=== PATIENT | male | born 1945 | race Caucasian/White ===

== ENCOUNTER → 2017-09-05 08:35 | Outpatient (CLI) | payer BC, SELFPAY ==
--- NOTE | 2017-09-05 08:44 | ECHOD_ITS ---
Reason For Study: S/P AVR Procedure This was a 2D Doppler, Color Flow transthoracic echocardiogram. Exam performed in department. Left Ventricle Mild assymetric septal hypertrophy. The estimated ejection fraction is 65 %. Normal diastology for age. No regional wall motion abnormalities noted. Right Ventricle Normal size and thickness. Normal systolic function. Atria Normal left atrium. Normal right atrium. Hypermobile atrial septum. Bubble contrast study negative for right to left interatrial shunt. Mitral Valve The mitral valve is structurally normal. No prolapse or stenosis seen. Tricuspid Valve Normal tricuspid valve. Mild (1+) tricuspid valve insufficiency. Right ventricular systolic pressure estimated to be 36 mmHg. Aortic Valve Mild (1+) eccentric aortic valve insufficiency. Bioprosthetic aortic valve. Stable appearing bioprosthetic aortic valve apparatus. Pulmonic Valve Normal pulmonic valve. Great Vessels Moderately dilated aortic root. Normal inferior vena cava. Inferior vena cava collapse with sniff. Pericardium/Pleural No pericardial effusion. Medication 22 gauge I.V. with prn adaptor inserted into right arm. Performed a rapid injection of agitated mix of 9 cc saline and 1cc air to assess for atrial septal defect. MMode/2D Measurements & Calculations LVIDd: 4.3 cm IVSd: 1.4 cm LVOT diam: 2.0 cm LVIDs: 2.9 cm LVPWd: 1.1 cm LVOT area: 3.1 cm2 RVDd: 3.6 cm FS: 32.7 % Ao root diam: 4.4 cm LAV(MOD-bp): 46.7 ml EDV(MOD-sp4): 138.9 ml LAV(MOD-bp) Indexed: 21.9 ml/m2 ESV(MOD-sp4): 50.9 ml LAV(MOD-sp2): 58.6 ml EF(MOD-sp4): 63.4 % LAV(MOD-sp4): 35.4 ml SV(MOD-sp4): 88.0 ml LA A4 area: 14.7 cm2 RA A4 area: 15.2 cm2 Time Measurements MV dec time: 0.27 sec Doppler Measurements & Calculations MV E max alex: 62.1 cm/sec Lat Peak E' Alex: 8.9 cm/sec Med Peak E' Alex: 6.7 cm/sec MV A max alex: 56.4 cm/sec E/E' lat: 7.0 E/E' med: 9.3 MV E/A: 1.1 Ao V2 max: 286.7 cm/sec AI max alex: 537.7 cm/sec LV V1 max: 88.3 cm/sec Ao max P.9 mmHg AI max P.7 mmHg LV V1 max P.1 mmHg Ao V2 mean: 186.9 cm/sec AI dec slope: 298.5 cm/sec2 LV V1 mean P.9 mmHg Ao mean P.2 mmHg AI P1/2t: 527.7 msec LV V1 mean: 65.9 cm/sec Ao V2 VTI: 62.1 cm LV V1 VTI: 22.8 cm SNEHA(I,D): 1.1 cm2 SNEHA(V,D): 0.95 cm2 SV(LVOT): 70.3 ml PA V2 max: 120.6 cm/sec TR max alex: 260.2 cm/sec TR max P.3 mmHg Interpretation Summary The estimated ejection fraction is 65 %. Normal diastology for age. Hypermobile atrial septum. Mild (1+) tricuspid valve insufficiency. Right ventricular systolic pressure estimated to be 36 mmHg. Bioprosthetic aortic valve. Mild (1+) eccentric aortic valve insufficiency. Moderately dilated aortic root just above bioprosthetic AVR, with no evidence of false lumen or dissection. There is no comparison study available. Ordering Physician: JAY LEBLANC Referring Physician: OSKAR MOURA Performed By: Becky Agee RDCS
== END ==
PROVIDERS: Family Provider Preventive Medicine Occupational Medicine; PCP Preventive Medicine Occupational Medicine
DX: Z95.2 Presence of prosthetic heart valve (principal)
CPT/HCPCS: 93306; A4216

== ENCOUNTER → 2019-04-23 14:08 | Outpatient (CLI) | payer MEDICARE, SELFPAY ==
[2016-07-28 10:44] VITALS: BMI 27.4
[2019-04-23 15:51] LABS: Hematocrit 37.1 % (40-54); Hemoglobin 12.6 g/dL (13.0-16.5); Mean Corpuscular Hgb 31.5 pg (27.0-32.0); Mean Corpuscular Volume 92.8 fL (80-94); Mean Platelet Vol. 9.6 fl (6.2-12.0); Platelet Count 162 K/mm3 (150-450); RBC Distribution Width CV 12.6 % (11.6-14.6); RBC Distribution Width SD 43.1 fl (35.1-43.9); White Blood Count 6.4 K/mm3 (4.4-11.0)
[2019-04-23 16:16] LABS: Homocysteine 16.9 umol/L (3.2-10.7)
[2019-04-23 16:17] LABS: Hemoglobin A1c 5.3 % (4.2-6.3)
[2019-04-23 16:26] LABS: Progesterone Level 0.19 ng/mL (See Comment); Vitamin B12 357 pg/mL (211-911)
[2019-04-23 16:55] LABS: ALB/GLOB Ratio 1.2 RATIO (0.9-2.4); AST(SGOT) 21 U/L (15-37); Alanine Aminotransfer ALT/SGPT 24 U/L (16-61); Alkaline Phosphatase 104 U/L (45-117); Anion Gap 4 (5-15); BUN 32 mg/dL (7-18); BUN/Creat Ratio 28.1 RATIO (10-20); CRP, High Sensitivity Cardiac 0.75 mg/L; Calcium,Total 9.5 mg/dL (8.5-10.1); Chloride 105 mmol/L (98-107); Cholesterol 171 mg/dL (200); Creatinine, Serum 1.14 mg/dL (0.70-1.30); EST Glomerular Filtration Rate 67 mL/min (>60); Est Glom Filt Rate - Afr Amer 81 mL/min (>60); Estradiol 17.3 pg/mL; Follicle Stimulating Hormone 7.4 mIU/mL; Free T3 2.1 pg/mL (2.18-3.98); Globulin 3.2 g/dL (2.2-4.2); Glucose 91 mg/dL (74-106); High Density Lipoprotein 66 mg/dL; Iron 79 ug/dL (65-175); Luteinizing Hormone 3.5 mIU/mL; PSA,Total - Annual Screen 4.73 ng/mL (0.00-4.00); Potassium 3.8 mmol/L (3.5-5.1); Prolactin 5.2 ng/mL; Protein, Total 7.2 g/dL (6.4-8.2); Sodium Level 142 mmol/L (136-145); T4 Free Direct 1.05 ng/dL (0.76-1.46); T4 Total, Thyroxin 8.1 ug/dL (4.5-12.1); Thyroid Stim Hormone (TSH) 2.17 uIU/mL (0.358-3.74); Triglycerides 59 mg/dL; Very Low Density Lipoprotein 12 mg/dL (5-40)
[2019-04-27 12:07] LABS: DHEA Sulfate 96.3 ug/dL (30.9-295.6); Insulin Like Growth Factor 157 ng/mL (41-179); Testosterone, % Free 1.79 % (1.50-4.20); Testosterone, Free 4.01 ng/dL (5.00-21.00)
[2019-04-28 14:36] LABS: Sex Hormone-binding Globulin 87.1 nmol/L (19.3-76.4); Testosterone, Total 224 ng/dL (264-916)
== END ==
PROVIDERS: Family Provider Preventive Medicine Occupational Medicine; PCP Preventive Medicine Occupational Medicine; Referring Provider Preventive Medicine Occupational Medicine; Visit Provider Preventive Medicine Occupational Medicine
DX: R63.4 Abnormal weight loss (principal); I48.91 Unspecified atrial fibrillation; R53.82 Chronic fatigue, unspecified; M62.81 Muscle weakness (generalized); R68.82 Decreased libido
CPT/HCPCS: 36415; 80053; 80061; 82306; 82533; 82607; 82627; 82670; 82746; 83001; 83002; 83036; 83090; 83540; 83735; 84144; 84146; 84153; 84270; 84305; 84402; 84403; 84436; 84439; 84443; 84481; 85027; 86141; 82626; G0103

== ENCOUNTER → 2019-10-24 05:00 | Outpatient (REF) | payer MEDICARE, SELFPAY ==
[2019-10-24 10:21] LABS: Hematocrit 38.2 % (40-54); Hemoglobin 12.5 g/dL (13.0-16.5); Mean Corp Hgb Conc 32.7 g/dL (32-36); Mean Corpuscular Hgb 31.2 pg (27.0-32.0); Mean Corpuscular Volume 95.3 fL (80-94); Mean Platelet Vol. 9.7 fl (6.2-12.0); Platelet Count 194 K/mm3 (150-450); RBC Distribution Width CV 13.8 % (11.6-14.6); RBC Distribution Width SD 48.5 fl (35.1-43.9); Red Blood Count 4.01 M/mm3 (4.6-6.2); White Blood Count 5.6 K/mm3 (4.4-11.0)
[2019-10-24 10:31] LABS: Anion Gap 7 (5-15); BUN 38 mg/dL (7-18); BUN/Creat Ratio 33.9 RATIO (10-20); Calcium,Total 9.2 mg/dL (8.5-10.1); Chloride 103 mmol/L (98-107); Creatinine, Serum 1.12 mg/dL (0.70-1.30); EST Glomerular Filtration Rate 68 mL/min (>60); Est Glom Filt Rate - Afr Amer 82 mL/min (>60); Glucose 92 mg/dL (74-106); Potassium 4.1 mmol/L (3.5-5.1); Sodium Level 141 mmol/L (136-145)
== END ==
LOC: OLS.WHLEAS 05:00
PROVIDERS: Visit Provider Family Medicine
DX: G20 Parkinson's disease (principal); E34.9 Endocrine disorder, unspecified; I48.20 Chronic atrial fibrillation, unspecified; N17.9 Acute kidney failure, unspecified; R53.81 Other malaise; M62.81 Muscle weakness (generalized)
CPT/HCPCS: 36415; 80048; 85027

== ENCOUNTER → 2019-11-21 05:00 | Outpatient (REF) | payer MEDICARE, SELFPAY ==
[2019-11-21 08:55] LABS: Hematocrit 34.4 % (40-54); Hemoglobin 11.3 g/dL (13.0-16.5); Mean Corp Hgb Conc 32.8 g/dL (32-36); Mean Corpuscular Hgb 31.5 pg (27.0-32.0); Mean Corpuscular Volume 95.8 fL (80-94); Mean Platelet Vol. 9.9 fl (6.2-12.0); Platelet Count 157 K/mm3 (150-450); RBC Distribution Width CV 13.4 % (11.6-14.6); RBC Distribution Width SD 47.4 fl (35.1-43.9); Red Blood Count 3.59 M/mm3 (4.6-6.2); White Blood Count 4.3 K/mm3 (4.4-11.0)
[2019-11-21 09:05] LABS: Anion Gap 4 (5-15); BUN 35 mg/dL (7-18); BUN/Creat Ratio 35.3 RATIO (10-20); Calcium,Total 8.5 mg/dL (8.5-10.1); Chloride 106 mmol/L (98-107); Creatinine, Serum 0.99 mg/dL (0.70-1.30); EST Glomerular Filtration Rate 78 mL/min (>60); Est Glom Filt Rate - Afr Amer 95 mL/min (>60); Glucose 80 mg/dL (74-106); Potassium 4.6 mmol/L (3.5-5.1); Sodium Level 141 mmol/L (136-145)
== END ==
LOC: OLS.WHLEAS 05:00
PROVIDERS: Referring Provider Family Medicine; Visit Provider Family Medicine
DX: E34.9 Endocrine disorder, unspecified (principal); G20 Parkinson's disease; I48.20 Chronic atrial fibrillation, unspecified; N17.9 Acute kidney failure, unspecified; R53.81 Other malaise; M62.81 Muscle weakness (generalized)
CPT/HCPCS: 36415; 80048; 85027

== ENCOUNTER → 2019-12-26 05:00 | Outpatient (REF) | payer MEDICARE, MEDICAID, SELFPAY ==
[2019-12-26 09:05] LABS: Hematocrit 36.9 % (40-54); Hemoglobin 12.6 g/dL (13.0-16.5); Mean Corp Hgb Conc 34.1 g/dL (32-36); Mean Corpuscular Hgb 32.3 pg (27.0-32.0); Mean Corpuscular Volume 94.6 fL (80-94); Mean Platelet Vol. 9.6 fl (6.2-12.0); Platelet Count 164 K/mm3 (150-450); RBC Distribution Width CV 12.5 % (11.6-14.6); RBC Distribution Width SD 43.2 fl (35.1-43.9); White Blood Count 4.4 K/mm3 (4.4-11.0)
[2019-12-26 09:12] LABS: Anion Gap 2 (5-15); BUN 29 mg/dL (7-18); BUN/Creat Ratio 31.3 RATIO (10-20); Calcium,Total 9.1 mg/dL (8.5-10.1); Chloride 107 mmol/L (98-107); Creatinine, Serum 0.93 mg/dL (0.70-1.30); EST Glomerular Filtration Rate 85 mL/min (>60); Est Glom Filt Rate - Afr Amer 103 mL/min (>60); Glucose 78 mg/dL (74-106); Potassium 4.3 mmol/L (3.5-5.1); Sodium Level 140 mmol/L (136-145)
== END ==
LOC: OLS.WHLEAS 05:00
PROVIDERS: Visit Provider Family Medicine
DX: I12.9 Hypertensive chronic kidney disease with stage 1 through stage 4 chronic kidney disease, or unspecified chronic kidney disease (principal); N17.9 Acute kidney failure, unspecified; G21.9 Secondary parkinsonism, unspecified; R53.81 Other malaise; I48.20 Chronic atrial fibrillation, unspecified; I39 Endocarditis and heart valve disorders in diseases classified elsewhere
CPT/HCPCS: 36415; 80048; 85027

== ENCOUNTER → 2020-01-23 05:00 | Outpatient (REF) | payer MEDICARE, MEDICAID, SELFPAY ==
[2020-01-23 10:14] LABS: Anion Gap 4 (5-15); BUN 29 mg/dL (7-18); BUN/Creat Ratio 27.9 RATIO (10-20); Calcium,Total 8.8 mg/dL (8.5-10.1); Chloride 106 mmol/L (98-107); Creatinine, Serum 1.04 mg/dL (0.70-1.30); EST Glomerular Filtration Rate 74 mL/min (>60); Est Glom Filt Rate - Afr Amer 90 mL/min (>60); Glucose 80 mg/dL (74-106); Potassium 4.3 mmol/L (3.5-5.1); Sodium Level 144 mmol/L (136-145)
[2020-01-23 10:16] LABS: Hematocrit 36.7 % (40-54); Mean Corp Hgb Conc 32.7 g/dL (32-36); Mean Corpuscular Hgb 31.3 pg (27.0-32.0); Mean Corpuscular Volume 95.6 fL (80-94); Mean Platelet Vol. 9.5 fl (6.2-12.0); Platelet Count 169 K/mm3 (150-450); RBC Distribution Width CV 12.2 % (11.6-14.6); RBC Distribution Width SD 42.5 fl (35.1-43.9); Red Blood Count 3.84 M/mm3 (4.6-6.2)
== END ==
LOC: OLS.WHLEAS 05:00
PROVIDERS: Visit Provider Family Medicine
DX: G21.9 Secondary parkinsonism, unspecified (principal); R53.81 Other malaise; I12.9 Hypertensive chronic kidney disease with stage 1 through stage 4 chronic kidney disease, or unspecified chronic kidney disease; N17.9 Acute kidney failure, unspecified; I48.20 Chronic atrial fibrillation, unspecified; I39 Endocarditis and heart valve disorders in diseases classified elsewhere; E34.9 Endocrine disorder, unspecified
CPT/HCPCS: 36415; 80048; 85027

== ENCOUNTER → 2020-02-20 05:00 | Outpatient (REF) | payer MEDICARE, MEDICAID, SELFPAY ==
[2020-02-20 07:11] LABS: Hematocrit 38.5 % (40-54); Hemoglobin 12.9 g/dL (13.0-16.5); Mean Corp Hgb Conc 33.5 g/dL (32-36); Mean Corpuscular Hgb 31.7 pg (27.0-32.0); Mean Corpuscular Volume 94.6 fL (80-94); Mean Platelet Vol. 9.6 fl (6.2-12.0); Platelet Count 167 K/mm3 (150-450); RBC Distribution Width CV 12.3 % (11.6-14.6); RBC Distribution Width SD 42.4 fl (35.1-43.9); Red Blood Count 4.07 M/mm3 (4.6-6.2); White Blood Count 4.3 K/mm3 (4.4-11.0)
[2020-02-20 07:27] LABS: Anion Gap 3 (5-15); BUN 30 mg/dL (7-18); BUN/Creat Ratio 27.8 RATIO (10-20); Chloride 108 mmol/L (98-107); Creatinine, Serum 1.08 mg/dL (0.70-1.30); EST Glomerular Filtration Rate 71 mL/min (>60); Est Glom Filt Rate - Afr Amer 86 mL/min (>60); Glucose 82 mg/dL (74-106); Potassium 4.2 mmol/L (3.5-5.1); Sodium Level 141 mmol/L (136-145)
== END ==
LOC: OLS.WHLEAS 05:00
PROVIDERS: Visit Provider Family Medicine
DX: E34.9 Endocrine disorder, unspecified (principal)
CPT/HCPCS: 36415; 80048; 85027

== ENCOUNTER → 2020-03-24 16:00 | Outpatient (REF) | payer MEDICARE, MEDICAID, SELFPAY ==
[2020-03-25 08:43] LABS: Color, Urine Yellow (Yellow); Glucose, Dipstick Normal (Normal); Ketone-Dipstick 5 mg/dl (Negative); Leukocyte Esterase-Dipstick 25 /ul (Negative); Nitrite-Dipstick Positive (Negative); Occult Blood-Urine Negative /ul (Negative); Protein-Dipstick 30 mg/dl (Negative); Urine Bilirubin Dipstick Negative (Negative); Urine Clarity Cloudy (Clear); Urine Urobilinogen Normal (Normal)
== END ==
LOC: OLS.WHLEAS 16:00
PROVIDERS: Referring Provider Family Medicine; Visit Provider Family Medicine
DX: G20 Parkinson's disease (principal); R53.81 Other malaise; I48.20 Chronic atrial fibrillation, unspecified; N19 Unspecified kidney failure; M62.81 Muscle weakness (generalized)
CPT/HCPCS: 81002; 87077; 87086; 87088; 87186

== ENCOUNTER → 2020-03-26 05:00 | Outpatient (REF) | payer MEDICARE, MEDICAID, SELFPAY ==
[2020-03-26 08:27] LABS: Hematocrit 38.1 % (40-54); Hemoglobin 12.5 g/dL (13.0-16.5); Mean Corp Hgb Conc 32.8 g/dL (32-36); Mean Corpuscular Volume 94.5 fL (80-94); Mean Platelet Vol. 9.5 fl (6.2-12.0); Platelet Count 163 K/mm3 (150-450); RBC Distribution Width CV 12.5 % (11.6-14.6); RBC Distribution Width SD 43.3 fl (35.1-43.9); Red Blood Count 4.03 M/mm3 (4.6-6.2)
[2020-03-26 08:33] LABS: Anion Gap 2 (5-15); BUN 27 mg/dL (7-18); BUN/Creat Ratio 26.7 RATIO (10-20); Chloride 109 mmol/L (98-107); Creatinine, Serum 1.01 mg/dL (0.70-1.30); EST Glomerular Filtration Rate 77 mL/min (>60); Est Glom Filt Rate - Afr Amer 93 mL/min (>60); Glucose 83 mg/dL (74-106); Potassium 4.5 mmol/L (3.5-5.1); Sodium Level 144 mmol/L (136-145)
== END ==
LOC: OLS.WHLEAS 05:00
PROVIDERS: Referring Provider Family Medicine; Visit Provider Family Medicine
DX: E34.9 Endocrine disorder, unspecified (principal); G21.9 Secondary parkinsonism, unspecified; I12.9 Hypertensive chronic kidney disease with stage 1 through stage 4 chronic kidney disease, or unspecified chronic kidney disease; N17.9 Acute kidney failure, unspecified; I48.20 Chronic atrial fibrillation, unspecified; R53.81 Other malaise; I39 Endocarditis and heart valve disorders in diseases classified elsewhere
CPT/HCPCS: 36415; 80048; 85027

== ENCOUNTER → 2020-05-21 05:00 | Outpatient (REF) | payer MEDICARE, MEDICAID, SELFPAY ==
[2020-05-21 08:22] LABS: Hematocrit 40.1 % (40-54); Hemoglobin 13.3 g/dL (13.0-16.5); Mean Corp Hgb Conc 33.2 g/dL (32-36); Mean Corpuscular Hgb 31.6 pg (27.0-32.0); Mean Corpuscular Volume 95.2 fL (80-94); Mean Platelet Vol. 9.6 fl (6.2-12.0); Platelet Count 184 K/mm3 (150-450); RBC Distribution Width CV 13.1 % (11.6-14.6); RBC Distribution Width SD 45.4 fl (35.1-43.9); Red Blood Count 4.21 M/mm3 (4.6-6.2); White Blood Count 4.6 K/mm3 (4.4-11.0)
[2020-05-21 08:24] LABS: Anion Gap 3 (5-15); BUN 28 mg/dL (7-18); BUN/Creat Ratio 25.9 RATIO (10-20); Calcium,Total 9.1 mg/dL (8.5-10.1); Chloride 105 mmol/L (98-107); Creatinine, Serum 1.08 mg/dL (0.70-1.30); EST Glomerular Filtration Rate 71 mL/min (>60); Est Glom Filt Rate - Afr Amer 86 mL/min (>60); Glucose 85 mg/dL (74-106); Potassium 4.2 mmol/L (3.5-5.1); Sodium Level 140 mmol/L (136-145)
== END ==
LOC: OLS.WHLEAS 05:00
PROVIDERS: Visit Provider Family Medicine
DX: E34.9 Endocrine disorder, unspecified (principal); G21.9 Secondary parkinsonism, unspecified; N17.9 Acute kidney failure, unspecified; R53.81 Other malaise; I48.20 Chronic atrial fibrillation, unspecified; I10 Essential (primary) hypertension; I39 Endocarditis and heart valve disorders in diseases classified elsewhere
CPT/HCPCS: 36415; 80048; 85027

== ENCOUNTER → 2020-06-25 05:00 | Outpatient (REF) | payer MEDICARE, MEDICAID, SELFPAY ==
[2020-06-25 10:09] LABS: Hematocrit 37.4 % (40-54); Hemoglobin 12.5 g/dL (13.0-16.5); Mean Corp Hgb Conc 33.4 g/dL (32-36); Mean Corpuscular Hgb 31.6 pg (27.0-32.0); Mean Corpuscular Volume 94.4 fL (80-94); Mean Platelet Vol. 9.5 fl (6.2-12.0); Platelet Count 175 K/mm3 (150-450); RBC Distribution Width CV 12.3 % (11.6-14.6); RBC Distribution Width SD 42.5 fl (35.1-43.9); Red Blood Count 3.96 M/mm3 (4.6-6.2); White Blood Count 4.5 K/mm3 (4.4-11.0)
[2020-06-25 10:25] LABS: Anion Gap 1 (5-15); BUN 33 mg/dL (7-18); BUN/Creat Ratio 30.8 RATIO (10-20); Calcium,Total 8.9 mg/dL (8.5-10.1); Chloride 106 mmol/L (98-107); Creatinine, Serum 1.07 mg/dL (0.70-1.30); EST Glomerular Filtration Rate 72 mL/min (>60); Est Glom Filt Rate - Afr Amer 87 mL/min (>60); Glucose 88 mg/dL (74-106); Potassium 4.2 mmol/L (3.5-5.1); Sodium Level 140 mmol/L (136-145)
== END ==
LOC: OLS.WHLEAS 05:00
PROVIDERS: Visit Provider Family Medicine
DX: E34.9 Endocrine disorder, unspecified (principal); G21.9 Secondary parkinsonism, unspecified; N17.9 Acute kidney failure, unspecified; R53.81 Other malaise; I48.20 Chronic atrial fibrillation, unspecified; I10 Essential (primary) hypertension; I39 Endocarditis and heart valve disorders in diseases classified elsewhere
CPT/HCPCS: 36415; 80048; 85027

== ENCOUNTER → 2020-07-23 05:50 | Outpatient (REF) | payer MEDICARE, MEDICAID, SELFPAY ==
[2020-07-23 09:31] LABS: Hematocrit 37.6 % (40-54); Hemoglobin 12.7 g/dL (13.0-16.5); Mean Corp Hgb Conc 33.8 g/dL (32-36); Mean Corpuscular Hgb 31.8 pg (27.0-32.0); Mean Platelet Vol. 9.7 fl (6.2-12.0); Platelet Count 166 K/mm3 (150-450); RBC Distribution Width CV 12.5 % (11.6-14.6); RBC Distribution Width SD 43.4 fl (35.1-43.9); White Blood Count 4.4 K/mm3 (4.4-11.0)
[2020-07-23 09:45] LABS: Anion Gap 3 (5-15); BUN 30 mg/dL (7-18); BUN/Creat Ratio 29.1 RATIO (10-20); Calcium,Total 8.8 mg/dL (8.5-10.1); Chloride 108 mmol/L (98-107); Creatinine, Serum 1.03 mg/dL (0.70-1.30); EST Glomerular Filtration Rate 75 mL/min (>60); Est Glom Filt Rate - Afr Amer 91 mL/min (>60); Glucose 76 mg/dL (74-106); Potassium 4.3 mmol/L (3.5-5.1); Sodium Level 143 mmol/L (136-145)
== END ==
LOC: OLS.WHLEAS 05:50
PROVIDERS: Visit Provider Family Medicine
DX: E34.9 Endocrine disorder, unspecified (principal); G21.9 Secondary parkinsonism, unspecified; N17.9 Acute kidney failure, unspecified; R53.81 Other malaise; I48.20 Chronic atrial fibrillation, unspecified; I10 Essential (primary) hypertension; I39 Endocarditis and heart valve disorders in diseases classified elsewhere
CPT/HCPCS: 36415; 80048; 85027

== ENCOUNTER → 2020-08-20 05:00 | Outpatient (REF) | payer MEDICARE, MEDICAID, SELFPAY ==
[2020-08-20 07:42] LABS: Hematocrit 38.4 % (40-54); Hemoglobin 12.6 g/dL (13.0-16.5); Mean Corp Hgb Conc 32.8 g/dL (32-36); Mean Corpuscular Hgb 31.3 pg (27.0-32.0); Mean Corpuscular Volume 95.3 fL (80-94); Mean Platelet Vol. 9.6 fl (6.2-12.0); Platelet Count 160 K/mm3 (150-450); RBC Distribution Width CV 12.5 % (11.6-14.6); RBC Distribution Width SD 43.4 fl (35.1-43.9); Red Blood Count 4.03 M/mm3 (4.6-6.2); White Blood Count 4.1 K/mm3 (4.4-11.0)
[2020-08-20 07:48] LABS: Anion Gap 2 (5-15); BUN 30 mg/dL (7-18); Calcium,Total 8.8 mg/dL (8.5-10.1); Chloride 109 mmol/L (98-107); Creatinine, Serum 0.94 mg/dL (0.70-1.30); EST Glomerular Filtration Rate 83 mL/min (>60); Est Glom Filt Rate - Afr Amer 101 mL/min (>60); Glucose 84 mg/dL (74-106); Potassium 4.1 mmol/L (3.5-5.1); Sodium Level 141 mmol/L (136-145)
== END ==
LOC: OLS.WHLEAS 05:00
PROVIDERS: Visit Provider Family Medicine
DX: E34.9 Endocrine disorder, unspecified (principal); G21.9 Secondary parkinsonism, unspecified; N17.9 Acute kidney failure, unspecified; R53.81 Other malaise; I48.20 Chronic atrial fibrillation, unspecified; I10 Essential (primary) hypertension; I39 Endocarditis and heart valve disorders in diseases classified elsewhere
CPT/HCPCS: 36415; 80048; 85027

== ENCOUNTER → 2020-09-24 05:00 | Outpatient (REF) | payer MEDICARE, MEDICAID, SELFPAY ==
[2020-09-24 06:57] LABS: Hematocrit 39.1 % (40-54); Hemoglobin 12.9 g/dL (13.0-16.5); Mean Platelet Vol. 9.4 fl (6.2-12.0); Platelet Count 169 K/mm3 (150-450); RBC Distribution Width CV 12.6 % (11.6-14.6); RBC Distribution Width SD 43.8 fl (35.1-43.9); Red Blood Count 4.16 M/mm3 (4.6-6.2); White Blood Count 4.7 K/mm3 (4.4-11.0)
[2020-09-24 07:13] LABS: Anion Gap 4 (5-15); BUN 30 mg/dL (7-18); BUN/Creat Ratio 28.3 RATIO (10-20); Calcium,Total 8.9 mg/dL (8.5-10.1); Chloride 107 mmol/L (98-107); Creatinine, Serum 1.06 mg/dL (0.70-1.30); EST Glomerular Filtration Rate 72 mL/min (>60); Est Glom Filt Rate - Afr Amer 88 mL/min (>60); Glucose 85 mg/dL (74-106); Sodium Level 141 mmol/L (136-145)
== END ==
LOC: OLS.WHLEAS 05:00
PROVIDERS: Visit Provider Family Medicine
DX: E34.9 Endocrine disorder, unspecified (principal); G21.9 Secondary parkinsonism, unspecified; N17.9 Acute kidney failure, unspecified; R53.81 Other malaise; I48.20 Chronic atrial fibrillation, unspecified; I10 Essential (primary) hypertension; I39 Endocarditis and heart valve disorders in diseases classified elsewhere
CPT/HCPCS: 36415; 80048; 85027

== ENCOUNTER → 2020-10-22 05:00 | Outpatient (REF) | payer MEDICARE, MEDICAID, SELFPAY ==
[2020-10-22 07:52] LABS: Hematocrit 39.7 % (40-54); Hemoglobin 13.5 g/dL (13.0-16.5); Mean Corpuscular Hgb 31.9 pg (27.0-32.0); Mean Corpuscular Volume 93.9 fL (80-94); Mean Platelet Vol. 9.5 fl (6.2-12.0); Platelet Count 177 K/mm3 (150-450); RBC Distribution Width CV 12.6 % (11.6-14.6); RBC Distribution Width SD 43.2 fl (35.1-43.9); Red Blood Count 4.23 M/mm3 (4.6-6.2); White Blood Count 4.1 K/mm3 (4.4-11.0)
[2020-10-22 08:07] LABS: Anion Gap 5 (5-15); BUN 23 mg/dL (7-18); BUN/Creat Ratio 22.8 RATIO (10-20); Calcium,Total 8.9 mg/dL (8.5-10.1); Chloride 106 mmol/L (98-107); Creatinine, Serum 1.01 mg/dL (0.70-1.30); EST Glomerular Filtration Rate 77 mL/min (>60); Est Glom Filt Rate - Afr Amer 93 mL/min (>60); Glucose 80 mg/dL (74-106); Potassium 4.4 mmol/L (3.5-5.1); Sodium Level 143 mmol/L (136-145)
== END ==
LOC: OLS.WHLEAS 05:00
PROVIDERS: Referring Provider Family Medicine; Visit Provider Family Medicine
DX: E34.9 Endocrine disorder, unspecified (principal); G21.9 Secondary parkinsonism, unspecified; N17.9 Acute kidney failure, unspecified; R53.81 Other malaise; I48.20 Chronic atrial fibrillation, unspecified; I10 Essential (primary) hypertension; I39 Endocarditis and heart valve disorders in diseases classified elsewhere
CPT/HCPCS: 36415; 80048; 85027

== ENCOUNTER → 2020-10-26 05:00 | Outpatient (REF) | payer MEDICARE, MEDICAID, SELFPAY ==
[2020-10-26 08:41] LABS: Hematocrit 38.9 % (40-54); Hemoglobin 12.7 g/dL (13.0-16.5); Mean Corp Hgb Conc 32.6 g/dL (32-36); Mean Corpuscular Hgb 31.6 pg (27.0-32.0); Mean Corpuscular Volume 96.8 fL (80-94); Mean Platelet Vol. 9.7 fl (6.2-12.0); Platelet Count 165 K/mm3 (150-450); RBC Distribution Width CV 12.8 % (11.6-14.6); RBC Distribution Width SD 45.6 fl (35.1-43.9); Red Blood Count 4.02 M/mm3 (4.6-6.2); White Blood Count 4.1 K/mm3 (4.4-11.0)
[2020-10-26 09:02] LABS: ALB/GLOB Ratio 1.2 RATIO (0.9-2.4); AST(SGOT) 25 U/L (15-37); Alanine Aminotransfer ALT/SGPT 21 U/L (16-61); Albumin, Serum 3.5 g/dL (3.2-5.0); Alkaline Phosphatase 119 U/L (45-117); Anion Gap 4 (5-15); BUN 35 mg/dL (7-18); BUN/Creat Ratio 34.7 RATIO (10-20); Calcium,Total 8.8 mg/dL (8.5-10.1); Chloride 108 mmol/L (98-107); Creatinine, Serum 1.01 mg/dL (0.70-1.30); EST Glomerular Filtration Rate 77 mL/min (>60); Est Glom Filt Rate - Afr Amer 93 mL/min (>60); Glucose 87 mg/dL (74-106); Potassium 4.1 mmol/L (3.5-5.1); Protein, Total 6.5 g/dL (6.4-8.2); Sodium Level 144 mmol/L (136-145); Thyroid Stim Hormone (TSH) 1.13 uIU/mL (0.358-3.74)
== END ==
LOC: OLS.WHLEAS 05:00
PROVIDERS: Referring Provider Family Medicine; Visit Provider Family Medicine
DX: F32.3 Major depressive disorder, single episode, severe with psychotic features (principal); G20 Parkinson's disease; I48.20 Chronic atrial fibrillation, unspecified; N17.9 Acute kidney failure, unspecified; I12.9 Hypertensive chronic kidney disease with stage 1 through stage 4 chronic kidney disease, or unspecified chronic kidney disease
CPT/HCPCS: 36415; 80053; 84443; 85027

== ENCOUNTER → 2020-11-19 04:30 | Outpatient (REF) | payer MEDICARE, MEDICAID, SELFPAY ==
[2020-11-19 07:16] LABS: Hematocrit 39.3 % (40-54); Hemoglobin 13.1 g/dL (13.0-16.5); Mean Corp Hgb Conc 33.3 g/dL (32-36); Mean Corpuscular Hgb 31.6 pg (27.0-32.0); Mean Corpuscular Volume 94.7 fL (80-94); Mean Platelet Vol. 9.6 fl (6.2-12.0); Platelet Count 174 K/mm3 (150-450); RBC Distribution Width CV 12.4 % (11.6-14.6); RBC Distribution Width SD 43.1 fl (35.1-43.9); Red Blood Count 4.15 M/mm3 (4.6-6.2); White Blood Count 4.2 K/mm3 (4.4-11.0)
[2020-11-19 07:39] LABS: Anion Gap 3 (5-15); BUN 26 mg/dL (7-18); BUN/Creat Ratio 25.7 RATIO (10-20); Calcium,Total 8.9 mg/dL (8.5-10.1); Chloride 105 mmol/L (98-107); Creatinine, Serum 1.01 mg/dL (0.70-1.30); EST Glomerular Filtration Rate 76 mL/min (>60); Est Glom Filt Rate - Afr Amer 93 mL/min (>60); Glucose 71 mg/dL (74-106); Potassium 4.3 mmol/L (3.5-5.1); Sodium Level 141 mmol/L (136-145)
== END ==
LOC: OLS.WHLEAS 04:30
PROVIDERS: Visit Provider Family Medicine
DX: E34.9 Endocrine disorder, unspecified (principal); G21.9 Secondary parkinsonism, unspecified; N17.9 Acute kidney failure, unspecified; R53.81 Other malaise; I48.20 Chronic atrial fibrillation, unspecified; I10 Essential (primary) hypertension; I39 Endocarditis and heart valve disorders in diseases classified elsewhere
CPT/HCPCS: 36415; 80048; 85027

== ENCOUNTER → 2020-12-24 05:00 | Outpatient (REF) | payer MEDICARE, MEDICAID, SELFPAY ==
[2020-12-24 08:37] LABS: Hematocrit 37.7 % (40-54); Hemoglobin 12.7 g/dL (13.0-16.5); Mean Corp Hgb Conc 33.7 g/dL (32-36); Mean Platelet Vol. 9.3 fl (6.2-12.0); Platelet Count 174 K/mm3 (150-450); RBC Distribution Width CV 12.8 % (11.6-14.6); RBC Distribution Width SD 44.6 fl (35.1-43.9); Red Blood Count 3.97 M/mm3 (4.6-6.2); White Blood Count 4.2 K/mm3 (4.4-11.0)
[2020-12-24 08:48] LABS: Anion Gap 3 (5-15); BUN 19 mg/dL (7-18); BUN/Creat Ratio 18.6 RATIO (10-20); Calcium,Total 8.7 mg/dL (8.5-10.1); Chloride 105 mmol/L (98-107); Creatinine, Serum 1.02 mg/dL (0.70-1.30); EST Glomerular Filtration Rate 76 mL/min (>60); Est Glom Filt Rate - Afr Amer 91 mL/min (>60); Glucose 87 mg/dL (74-106); Potassium 4.3 mmol/L (3.5-5.1); Sodium Level 141 mmol/L (136-145)
== END ==
LOC: OLS.WHLEAS 05:00
PROVIDERS: Visit Provider Family Medicine
DX: E34.9 Endocrine disorder, unspecified (principal); G21.9 Secondary parkinsonism, unspecified; N17.9 Acute kidney failure, unspecified; R53.81 Other malaise; I48.20 Chronic atrial fibrillation, unspecified; I10 Essential (primary) hypertension; I39 Endocarditis and heart valve disorders in diseases classified elsewhere
CPT/HCPCS: 36415; 80048; 85027

== ENCOUNTER → 2021-01-21 05:00 | Outpatient (REF) | payer MEDICARE, MEDICAID, SELFPAY ==
[2021-01-21 07:31] LABS: Hematocrit 37.3 % (40-54); Hemoglobin 12.5 g/dL (13.0-16.5); Mean Corp Hgb Conc 33.5 g/dL (32-36); Mean Corpuscular Hgb 32.1 pg (27.0-32.0); Mean Corpuscular Volume 95.6 fL (80-94); Mean Platelet Vol. 9.3 fl (6.2-12.0); Platelet Count 192 K/mm3 (150-450); RBC Distribution Width CV 12.5 % (11.6-14.6); RBC Distribution Width SD 43.4 fl (35.1-43.9); White Blood Count 4.6 K/mm3 (4.4-11.0)
[2021-01-21 07:43] LABS: Anion Gap 2 (5-15); BUN 32 mg/dL (7-18); BUN/Creat Ratio 28.1 RATIO (10-20); Calcium,Total 8.9 mg/dL (8.5-10.1); Chloride 110 mmol/L (98-107); Creatinine, Serum 1.14 mg/dL (0.70-1.30); EST Glomerular Filtration Rate 66 mL/min (>60); Est Glom Filt Rate - Afr Amer 80 mL/min (>60); Glucose 89 mg/dL (74-106); Potassium 4.7 mmol/L (3.5-5.1); Sodium Level 141 mmol/L (136-145)
== END ==
LOC: OLS.WHLEAS 05:00
PROVIDERS: Visit Provider Family Medicine
DX: E34.9 Endocrine disorder, unspecified (principal); G21.9 Secondary parkinsonism, unspecified; N17.9 Acute kidney failure, unspecified; R53.81 Other malaise; I48.20 Chronic atrial fibrillation, unspecified; I10 Essential (primary) hypertension; I39 Endocarditis and heart valve disorders in diseases classified elsewhere
CPT/HCPCS: 36415; 80048; 85027

== ENCOUNTER → 2021-02-18 05:00 | Outpatient (REF) | payer MEDICARE, MEDICAID, SELFPAY ==
[2021-02-18 07:36] LABS: Hemoglobin 12.8 g/dL (13.0-16.5); Mean Corp Hgb Conc 33.7 g/dL (32-36); Mean Corpuscular Hgb 31.8 pg (27.0-32.0); Mean Corpuscular Volume 94.5 fL (80-94); Mean Platelet Vol. 9.4 fl (6.2-12.0); Platelet Count 160 K/mm3 (150-450); RBC Distribution Width CV 12.5 % (11.6-14.6); RBC Distribution Width SD 43.2 fl (35.1-43.9); Red Blood Count 4.02 M/mm3 (4.6-6.2); White Blood Count 4.4 K/mm3 (4.4-11.0)
[2021-02-18 07:52] LABS: Anion Gap 4 (5-15); BUN 24 mg/dL (7-18); BUN/Creat Ratio 20.7 RATIO (10-20); Chloride 106 mmol/L (98-107); Creatinine, Serum 1.16 mg/dL (0.70-1.30); EST Glomerular Filtration Rate 65 mL/min (>60); Est Glom Filt Rate - Afr Amer 79 mL/min (>60); Glucose 84 mg/dL (74-106); Potassium 4.6 mmol/L (3.5-5.1); Sodium Level 142 mmol/L (136-145)
== END ==
LOC: OLS.WHLEAS 05:00
PROVIDERS: Visit Provider Family Medicine
DX: E34.9 Endocrine disorder, unspecified (principal); G21.9 Secondary parkinsonism, unspecified; N17.9 Acute kidney failure, unspecified; R53.81 Other malaise; I48.20 Chronic atrial fibrillation, unspecified; I10 Essential (primary) hypertension; I39 Endocarditis and heart valve disorders in diseases classified elsewhere
CPT/HCPCS: 36415; 80048; 85027

== ENCOUNTER → 2021-03-25 05:00 | Outpatient (REF) | payer MEDICARE, MEDICAID, SELFPAY ==
[2021-03-25 07:50] LABS: Hemoglobin 13.2 g/dL (13.0-16.5); Mean Corp Hgb Conc 34.7 g/dL (32-36); Mean Corpuscular Hgb 32.8 pg (27.0-32.0); Mean Corpuscular Volume 94.5 fL (80-94); Mean Platelet Vol. 9.3 fl (6.2-12.0); Platelet Count 159 K/mm3 (150-450); RBC Distribution Width CV 12.8 % (11.6-14.6); RBC Distribution Width SD 44.2 fl (35.1-43.9); Red Blood Count 4.02 M/mm3 (4.6-6.2); White Blood Count 4.7 K/mm3 (4.4-11.0)
[2021-03-25 08:13] LABS: Anion Gap 5 (5-15); BUN 30 mg/dL (7-18); BUN/Creat Ratio 30.9 RATIO (10-20); Calcium,Total 8.8 mg/dL (8.5-10.1); Chloride 106 mmol/L (98-107); Creatinine, Serum 0.97 mg/dL (0.70-1.30); EST Glomerular Filtration Rate 80 mL/min (>60); Est Glom Filt Rate - Afr Amer 97 mL/min (>60); Glucose 85 mg/dL (74-106); Potassium 4.4 mmol/L (3.5-5.1); Sodium Level 140 mmol/L (136-145)
== END ==
LOC: OLS.WHLEAS 05:00
PROVIDERS: Visit Provider Family Medicine
DX: E34.9 Endocrine disorder, unspecified (principal); G20 Parkinson's disease; I48.20 Chronic atrial fibrillation, unspecified; N17.9 Acute kidney failure, unspecified; I12.9 Hypertensive chronic kidney disease with stage 1 through stage 4 chronic kidney disease, or unspecified chronic kidney disease; N18.9 Chronic kidney disease, unspecified
CPT/HCPCS: 36415; 80048; 85027

== ENCOUNTER → 2021-04-22 05:00 | Outpatient (REF) | payer MEDICARE, MEDICAID, SELFPAY ==
[2021-04-22 06:12] LABS: Hematocrit 37.8 % (40-54); Hemoglobin 13.1 g/dL (13.0-16.5); Mean Corp Hgb Conc 34.7 g/dL (32-36); Mean Corpuscular Hgb 32.5 pg (27.0-32.0); Mean Corpuscular Volume 93.8 fL (80-94); Mean Platelet Vol. 9.3 fl (6.2-12.0); Platelet Count 163 K/mm3 (150-450); RBC Distribution Width CV 12.7 % (11.6-14.6); RBC Distribution Width SD 43.7 fl (35.1-43.9); Red Blood Count 4.03 M/mm3 (4.6-6.2); White Blood Count 4.7 K/mm3 (4.4-11.0)
[2021-04-22 06:37] LABS: Anion Gap 7 (5-15); BUN 29 mg/dL (7-18); BUN/Creat Ratio 27.6 RATIO (10-20); Calcium,Total 8.7 mg/dL (8.5-10.1); Chloride 107 mmol/L (98-107); Creatinine, Serum 1.05 mg/dL (0.70-1.30); EST Glomerular Filtration Rate 73 mL/min (>60); Est Glom Filt Rate - Afr Amer 88 mL/min (>60); Glucose 88 mg/dL (74-106); Potassium 4.4 mmol/L (3.5-5.1); Sodium Level 143 mmol/L (136-145)
== END ==
LOC: OLS.WHLEAS 05:00
PROVIDERS: Visit Provider Family Medicine
DX: E34.9 Endocrine disorder, unspecified (principal); G20 Parkinson's disease; I48.20 Chronic atrial fibrillation, unspecified; N17.9 Acute kidney failure, unspecified; I12.9 Hypertensive chronic kidney disease with stage 1 through stage 4 chronic kidney disease, or unspecified chronic kidney disease; N18.9 Chronic kidney disease, unspecified
CPT/HCPCS: 36415; 80048; 85027

== ENCOUNTER → 2021-05-27 | Outpatient (REF) | payer MEDICARE, MEDICAID, SELFPAY ==
[2021-05-27 07:48] LABS: Anion Gap 4 (5-15); BUN 26 mg/dL (7-18); BUN/Creat Ratio 25.2 RATIO (10-20); Calcium,Total 8.9 mg/dL (8.5-10.1); Chloride 105 mmol/L (98-107); Creatinine, Serum 1.03 mg/dL (0.70-1.30); EST Glomerular Filtration Rate 75 mL/min (>60); Est Glom Filt Rate - Afr Amer 90 mL/min (>60); Glucose 93 mg/dL (74-106); Potassium 4.4 mmol/L (3.5-5.1); Sodium Level 140 mmol/L (136-145)
[2021-05-27 08:10] LABS: Mean Corp Hgb Conc 34.2 g/dL (32-36); Mean Corpuscular Hgb 32.2 pg (27.0-32.0); Mean Corpuscular Volume 94.1 fL (80-94); Mean Platelet Vol. 9.5 fl (6.2-12.0); Platelet Count 157 K/mm3 (150-450); RBC Distribution Width CV 12.5 % (11.6-14.6); RBC Distribution Width SD 43.4 fl (35.1-43.9); Red Blood Count 4.04 M/mm3 (4.6-6.2); White Blood Count 4.8 K/mm3 (4.4-11.0)
== END | disposition home or self-care (01) ==
LOC: OLS.WHLEAS 06:40
PROVIDERS: Visit Provider Family Medicine
DX: E34.9 Endocrine disorder, unspecified (principal); G20 Parkinson's disease; N17.9 Acute kidney failure, unspecified; I48.20 Chronic atrial fibrillation, unspecified; I12.9 Hypertensive chronic kidney disease with stage 1 through stage 4 chronic kidney disease, or unspecified chronic kidney disease
CPT/HCPCS: 36415; 80048; 85027

== ENCOUNTER → 2021-06-24 | Outpatient (REF) | payer MEDICARE, MEDICAID, SELFPAY ==
[2021-06-24 07:40] LABS: Hematocrit 38.3 % (40-54); Hemoglobin 13.3 g/dL (13.0-16.5); Mean Corp Hgb Conc 34.7 g/dL (32-36); Mean Corpuscular Hgb 32.4 pg (27.0-32.0); Mean Corpuscular Volume 93.4 fL (80-94); Mean Platelet Vol. 9.5 fl (6.2-12.0); Platelet Count 149 K/mm3 (150-450); RBC Distribution Width CV 12.5 % (11.6-14.6); RBC Distribution Width SD 43.4 fl (35.1-43.9); White Blood Count 4.1 K/mm3 (4.4-11.0)
[2021-06-24 07:51] LABS: Anion Gap 1 (5-15); BUN 30 mg/dL (7-18); BUN/Creat Ratio 32.4 RATIO (10-20); Calcium,Total 8.6 mg/dL (8.5-10.1); Chloride 106 mmol/L (98-107); Creatinine, Serum 0.93 mg/dL (0.70-1.30); EST Glomerular Filtration Rate 84 mL/min (>60); Est Glom Filt Rate - Afr Amer 102 mL/min (>60); Glucose 80 mg/dL (74-106); Potassium 4.2 mmol/L (3.5-5.1); Sodium Level 140 mmol/L (136-145)
== END | disposition home or self-care (01) ==
LOC: OLS.WHLEAS 05:00
PROVIDERS: Visit Provider Family Medicine
DX: G20 Parkinson's disease (principal); I48.20 Chronic atrial fibrillation, unspecified; N18.30 Chronic kidney disease, stage 3 unspecified; I12.9 Hypertensive chronic kidney disease with stage 1 through stage 4 chronic kidney disease, or unspecified chronic kidney disease; R25.8 Other abnormal involuntary movements
CPT/HCPCS: 36415; 80048; 85027

== ENCOUNTER → 2021-07-22 | Outpatient (REF) | payer MEDICARE, MEDICAID, SELFPAY ==
[2021-07-22 07:56] LABS: Hematocrit 37.3 % (40-54); Hemoglobin 13.1 g/dL (13.0-16.5); Mean Corp Hgb Conc 35.1 g/dL (32-36); Mean Corpuscular Hgb 32.6 pg (27.0-32.0); Mean Corpuscular Volume 92.8 fL (80-94); Mean Platelet Vol. 9.2 fl (6.2-12.0); Platelet Count 163 K/mm3 (150-450); RBC Distribution Width CV 12.5 % (11.6-14.6); RBC Distribution Width SD 42.7 fl (35.1-43.9); Red Blood Count 4.02 M/mm3 (4.6-6.2); White Blood Count 4.4 K/mm3 (4.4-11.0)
[2021-07-22 08:05] LABS: Anion Gap 1 (5-15); BUN 28 mg/dL (7-18); BUN/Creat Ratio 26.4 RATIO (10-20); Calcium,Total 8.9 mg/dL (8.5-10.1); Chloride 108 mmol/L (98-107); Creatinine, Serum 1.06 mg/dL (0.70-1.30); EST Glomerular Filtration Rate 72 mL/min (>60); Est Glom Filt Rate - Afr Amer 87 mL/min (>60); Glucose 85 mg/dL (74-106); Potassium 4.3 mmol/L (3.5-5.1); Sodium Level 141 mmol/L (136-145)
== END | disposition home or self-care (01) ==
LOC: OLS.WHLEAS 05:00
PROVIDERS: Visit Provider Family Medicine
DX: G20 Parkinson's disease (principal); I48.20 Chronic atrial fibrillation, unspecified; N18.30 Chronic kidney disease, stage 3 unspecified; I12.9 Hypertensive chronic kidney disease with stage 1 through stage 4 chronic kidney disease, or unspecified chronic kidney disease
CPT/HCPCS: 36415; 80048; 85027

== ENCOUNTER → 2021-08-19 | Outpatient (REF) | payer MEDICARE, MEDICAID, SELFPAY ==
[2021-08-19 07:02] LABS: Hematocrit 40.3 % (40-54); Hemoglobin 13.6 g/dL (13.0-16.5); Mean Corp Hgb Conc 33.7 g/dL (32-36); Mean Corpuscular Hgb 31.6 pg (27.0-32.0); Mean Corpuscular Volume 93.5 fL (80-94); Mean Platelet Vol. 9.4 fl (6.2-12.0); Platelet Count 162 K/mm3 (150-450); RBC Distribution Width CV 12.6 % (11.6-14.6); RBC Distribution Width SD 43.7 fl (35.1-43.9); Red Blood Count 4.31 M/mm3 (4.6-6.2); White Blood Count 4.3 K/mm3 (4.4-11.0)
[2021-08-19 07:14] LABS: Anion Gap 3 (5-15); BUN 34 mg/dL (7-18); BUN/Creat Ratio 34.1 RATIO (10-20); Calcium,Total 8.7 mg/dL (8.5-10.1); Chloride 105 mmol/L (98-107); EST Glomerular Filtration Rate 77 mL/min (>60); Est Glom Filt Rate - Afr Amer 94 mL/min (>60); Glucose 88 mg/dL (74-106); Potassium 4.2 mmol/L (3.5-5.1); Sodium Level 139 mmol/L (136-145)
== END | disposition home or self-care (01) ==
LOC: OLS.WHLEAS 05:00
PROVIDERS: Visit Provider Family Medicine
DX: G20 Parkinson's disease (principal); N17.9 Acute kidney failure, unspecified; I48.20 Chronic atrial fibrillation, unspecified; N18.30 Chronic kidney disease, stage 3 unspecified; I12.9 Hypertensive chronic kidney disease with stage 1 through stage 4 chronic kidney disease, or unspecified chronic kidney disease
CPT/HCPCS: 36415; 80048; 85027

== ENCOUNTER → 2021-09-23 | Outpatient (REF) | payer MEDICARE, MEDICAID, SELFPAY ==
[2021-09-23 08:46] LABS: Hematocrit 39.3 % (40-54); Hemoglobin 13.4 g/dL (13.0-16.5); Mean Corp Hgb Conc 34.1 g/dL (32-36); Mean Corpuscular Hgb 32.7 pg (27.0-32.0); Mean Corpuscular Volume 95.9 fL (80-94); Mean Platelet Vol. 9.5 fl (6.2-12.0); Platelet Count 167 K/mm3 (150-450); RBC Distribution Width CV 12.7 % (11.6-14.6); RBC Distribution Width SD 44.1 fl (35.1-43.9); White Blood Count 4.7 K/mm3 (4.4-11.0)
[2021-09-23 09:04] LABS: Anion Gap 5 (5-15); BUN 36 mg/dL (7-18); BUN/Creat Ratio 32.7 RATIO (10-20); Chloride 106 mmol/L (98-107); EST Glomerular Filtration Rate 69 mL/min (>60); Est Glom Filt Rate - Afr Amer 84 mL/min (>60); Glucose 96 mg/dL (74-106); Potassium 4.1 mmol/L (3.5-5.1); Sodium Level 139 mmol/L (136-145)
== END | disposition home or self-care (01) ==
LOC: OLS.WHLEAS 05:00
PROVIDERS: Visit Provider Family Medicine
DX: G20 Parkinson's disease (principal); N17.9 Acute kidney failure, unspecified; I48.20 Chronic atrial fibrillation, unspecified; N18.30 Chronic kidney disease, stage 3 unspecified; I12.9 Hypertensive chronic kidney disease with stage 1 through stage 4 chronic kidney disease, or unspecified chronic kidney disease
CPT/HCPCS: 36415; 80048; 85027

== ENCOUNTER 2021-10-02 20:19 | Emergency (ER) | payer MEDICARE, MEDICAID, SELFPAY ==
[2021-10-02 20:20] VITALS: BP 144/85; PULSE 85; RESP 16; TEMP 37.1; O2SAT 95; BMI 27.8
--- NOTE | 2021-10-02 20:51 | CT_ITS ---
EXAM: CT HEAD WITHOUT INTRAVENOUS CONTRAST CLINICAL INDICATION: mental status change TECHNIQUE: Multiple axial images were obtained of the head without intravenous contrast. This CT exam was performed using one or more of the following dose reduction techniques: automated exposure control, adjustment of the mA and/or kV according to patient size, and/or use of iterative reconstruction technique. This report was created using [employer] report generation technology. RADIATION DOSE: CTDIvol = 45 mGy, DLP = 897.35 mGy-cm. COMPARISON: None. FINDINGS: BRAIN AND EXTRA-AXIAL SPACES: Mild generalized atrophy. Mild low density bilaterally in the deep white matter. No intra- or extra-axial hemorrhage. No evidence of acute infarct. No intracranial mass or mass effect. There is preservation of the noguera/white matter interface. Posterior fossa structures are unremarkable. No hydrocephalus. Basal cisterns are patent. BONES/JOINTS: Unremarkable. No discrete lytic or blastic abnormalities. SINUSES: Unremarkable as visualized. Clear. MASTOID AIR CELLS: Unremarkable. Clear. ORBITS: Visualized globes, extraocular muscles, optic nerves and retrobulbar fat appear unremarkable. CT/Brain/Head without Contrast IMPRESSION: Mild generalized atrophy. Mild low density bilaterally in the deep white matter. This likely represents small vessel ischemic changes in the deep white matter. Electronically Signed: Akira Elaine MD at 21:45 EDT ,
--- NOTE | 2021-10-02 20:51 | EKG12_ITS ---
Test Reason : CONFUSION Blood Pressure : / mmHG Vent. Rate : 091 BPM Atrial Rate : 091 BPM P-R Int : 260 ms QRS Dur : 100 ms QT Int : 366 ms P-R-T Axes : 074 -20 132 degrees QTc Int : 450 ms Sinus rhythm with 1st degree A-V block Left ventricular hypertrophy with repolarization abnormality Abnormal ECG Confirmed by MARIA EUGENIA LEVIN, ADINA ([id number]), commercial production editor SEAN LAM ([id number]) on 10/04/2021 7:18:51 AM Referred By: VIRAL Confirmed By:ADINA DEL CID MD
[2021-10-02 21:16] LABS: Bacteria 0 SEEN /hpf (None Seen); Red Blood Cells-Urine 0 SEEN /hpf (0-5); Squamous Epithelial Cells - UA 0 SEEN /hpf (0-5)
[2021-10-02 21:17] LABS: Color, Urine Yellow (Yellow); Glucose, Dipstick Normal (Normal); Ketone-Dipstick 15 mg/dl (Negative); Leukocyte Esterase-Dipstick 25 /ul (Negative); Nitrite-Dipstick Negative (Negative); Occult Blood-Urine Negative /ul (Negative); Protein-Dipstick 15 mg/dl (Negative); Specific Gravity, Urine 1.015 (1.002-1.030); Urine Bilirubin Dipstick Negative (Negative); Urine Clarity Clear (Clear); Urine Urobilinogen 1 mg/dl (Normal)
[2021-10-02 21:17] LABS: Absolute Lymphocyte Count 0.52 X10^3/uL (0.83-4.51); Absolute Neutrophil Count 10.9 X10^3/uL (2.0-7.7); Basophil# 0.01 X10^3/uL; Basophil% 0.1 % (0-1); Eosinophil# 0.01 X10^3/uL; Eosinophils% 0.1 % (0-5); Hematocrit 38.9 % (40-54); Hemoglobin 13.7 g/dL (13.0-16.5); Lymphocyte # 0.52 X10^3/ul (0.83-4.51); Lymphocyte % 4.4 % (19-41); Mean Corp Hgb Conc 35.2 g/dL (32-36); Mean Corpuscular Hgb 32.6 pg (27.0-32.0); Mean Corpuscular Volume 92.6 fL (80-94); Monocyte# 0.39 X10^3/uL; Monocyte% 3.3 % (0-10); NRBC Flagged by Analyzer 0 % (0-5); Neutrophil # 10.87 X10^3/uL (2.7-7.7); Neutrophil % 91.6 % (47-70); POSITIVE DIFFERENTIAL YES; Platelet Count 154 K/mm3 (150-450); RBC Distribution Width CV 12.6 % (11.6-14.6); RBC Distribution Width SD 42.7 fl (35.1-43.9); White Blood Count 11.9 K/mm3 (4.4-11.0)
[2021-10-02 21:19] LABS: Differential Indicated SCAN CRITERIA MET
[2021-10-02 21:36] LABS: ALB/GLOB Ratio 1.2 RATIO (0.9-2.4); AST(SGOT) 34 U/L (15-37); Alanine Aminotransfer ALT/SGPT 14 U/L (16-61); Albumin, Serum 3.8 g/dL (3.2-5.0); Alkaline Phosphatase 156 U/L (45-117); Anion Gap 6 (5-15); BUN 25 mg/dL (7-18); BUN/Creat Ratio 23.1 RATIO (10-20); Calcium,Total 8.7 mg/dL (8.5-10.1); Chloride 104 mmol/L (98-107); Creatinine, Serum 1.08 mg/dL (0.70-1.30); EST Glomerular Filtration Rate 71 mL/min (>60); Est Glom Filt Rate - Afr Amer 85 mL/min (>60); Estimated Creatinine Clearance 60.08 ml/min; Globulin 3.2 g/dL (2.2-4.2); Glucose 135 mg/dL (74-106); Potassium 4.1 mmol/L (3.5-5.1); Sodium Level 136 mmol/L (136-145); Troponin-I HS 6 pg/mL (3.0-78.0)
[2021-10-02 21:43] LABS: Differential Comment SCANNED
[2021-10-02 21:50] LABS: Mucous, Urine RARE /hpf (<or=2+); White Blood Cells 0-5 SEEN /hpf (0-5)
--- NOTE | 2021-10-02 22:53 | EX.ED.DYSGE1 ---
HPI History of Present Illness Chief Complaint: Confusion Narrative Narrative: Chief complaint is confusion. Patient is oriented x1 or x2 at baseline, apparently he was somewhat more confused at the [facility] today. He was also slightly more energetic and agitated at times. When he arrives patient is relatively calm he tells me his name he tells me is in [place] and he tells me he is no pain. Otherwise it is quite difficult to get a history and review of systems due to his baseline Parkinson's and dementia. [facility] Medical History Anxiety Atrial fibrillation Back pain Benign prostate hyperplasia Dementia Depression Endocarditis Hallucination Hypertension Inguinal hernia Kidney disease Parkinson disease Home Medications Alena, Bladder Health 1 tab PO DAILY 07/24/16 [History Last Taken Unknown] Chlorofresh 2 tab PO DAILY 07/24/16 [History Last Taken Unknown] Cholecalciferol (Vitamin D3) [Vitamin D3] 5,000 unit PO DAILY 07/24/16 [History Last Taken Unknown] Efa, Essential Fatty Acid 1 cap PO TID 07/24/16 [History Last Taken Unknown] Glucosamine Daily Complex Tab 2 tab PO BID 07/24/16 [History Last Taken Unknown] [place] Dunn[place] Extract 5 drp PO DAILY 07/24/16 [History Last Taken Unknown] [place] Drink 1 packet PO DAILY 07/24/16 [History Last Taken Unknown] Tumeric/Carcumin 1 tab PO DAILY 07/24/16 [History Last Taken Unknown] Vital 3-For Joints 3 drp PO DAILY 07/24/16 [History Last Taken Unknown] aspirin 325 mg PO DAILY@0800 07/24/16 [History Last Taken 07/24/16] astaxanthin 4 mg PO DAILY 07/24/16 [History Last Taken Unknown] calcium carbonate 500 mg PO DAILY 07/24/16 [History Last Taken Unknown] finasteride 5 mg PO DAILY 07/24/16 [History Last Taken Unknown] lactobacillus combination no.4 [Probiotic] 2 ea PO BID 07/24/16 [History Last Taken Unknown] metoprolol succinate 25 mg PO DAILY 07/24/16 [History Last Taken 07/28/16 11:18 25 MG] red yeast rice 600 mg PO DAILY 07/24/16 [History Last Taken Unknown] tamsulosin 0.4 mg PO DAILY 07/24/16 [History Last Taken Unknown] ciprofloxacin HCl 500 mg PO BID #10 tablet 07/28/16 [Rx Last Taken Unknown] hydrocodone-acetaminophen 1 tab PO Q4H PRN PRN #10 tablet 07/28/16 [Rx Last Taken Unknown] Allergy/AdvReac Type Severity Reaction Status Date / Time No Known Allergies Allergy Verified 10/02/21 20:20 Social History Smoking Status: Never smoker ROS ROS ED Review of Systems ROS Unobtainable: due to mental status EXAM Physical Exam Narrative Exam Narrative: Physical exam General: He does not appear in any distress. He is pleasantly confused. Initially he was somewhat fidgety however after a few minutes he calmed down. Head: Normocephalic, Atraumatic Eyes: Conjunctiva not pale ENT: Moist mucous membranes no signs of infection. No signs of dehydration Neck: Supple, Nontender, No lymphadenopathy Cardiovascular: Regular rate, Regular rhythm Respiratory: No distress, CTA bilaterally Abdomen: Soft, I am palpating throughout his entire abdomen I do not appreciate any tenderness to palpation he does not seem to be in pain when I press on his abdomen. Back: Nontender, Normal Inspection. Negative for: CVA tenderness Extremities: Nontender, No edema Skin: Normal color, No rash Neurological: Alert, he is oriented to person and he knows he is in [place]. He does not know his age or what year it is. Sometimes slower to respond. Normal Strength, Normal Sensation Const Vital Signs: 10/02/21 20:20 Temperature 98.7 F Temperature Source Temporal Pulse Rate 85 Respiratory Rate 16 Blood Pressure 144/85 H Blood Pressure Mean 104 Pulse Ox 95 Oxygen Delivery Method Room Air MDM MDM MDM Narrative Medical decision making narrative: Patient has an unremarkable emergency department work-up. He appears well. He has been calm in our ED. I believe he can be safely discharged. Lab Data Labs: Laboratory Results - last 24 hr 10/02/21 10/02/21 10/02/21 21:00 21:00 21:09 WBC 11.9 H RBC 4.20 L Hgb 13.7 Hct 38.9 L MCV 92.6 MCH 32.6 H MCHC 35.2 RDW Std Deviation 42.7 RDW Coeff of Suzan 12.6 Plt Count 154 MPV 9.0 Immature Gran % (Auto) 0.500 Neut % (Auto) 91.6 H Lymph % (Auto) 4.4 L [place] % (Auto) 3.3 Eos % (Auto) 0.1 Baso % (Auto) 0.1 Absolute Neuts (auto) 10.9 H Absolute Lymphs (auto) 0.52 L Nucleated RBC % 0 Differential Comment SCANNED Sodium 136 Potassium 4.1 Chloride 104 Carbon Dioxide 26.0 Anion Gap 6 BUN 25 H Creatinine 1.08 Estim Creat Clear Calc 60.08 Est GFR (MDRD) Af Amer 85 Est GFR (MDRD) Non-Af 71 BUN/Creatinine Ratio 23.1 H Glucose 135 H Calcium 8.7 Total Bilirubin 1.30 H AST 34 ALT 14 L Alkaline Phosphatase 156 H Troponin I High Sens 6 Total Protein 7.0 Albumin 3.8 Globulin 3.2 Albumin/Globulin Ratio 1.2 Urine Color Yellow Urine Clarity Clear Urine pH 6.0 Ur Specific [place] 1.015 Urine Protein 15 H Urine Glucose (UA) Normal Urine Ketones 15 H Urine Occult Blood Negative Urine Nitrite Negative Urine Bilirubin Negative Urine Urobilinogen 1 H Ur Leukocyte Esterase 25 H Urine RBC 0 SEEN Urine WBC 0-5 SEEN Ur Squamous Epith Cells 0 SEEN Urine Bacteria 0 SEEN Urine Mucus RARE Radiography Diagnostic Testing: Clinical Impression(s) from Imaging Studies Brain CT 10/02/21 20:51 IMPRESSION: Mild generalized atrophy. Mild low density bilaterally in the deep white matter. This likely represents small vessel ischemic changes in the deep white matter. Electronically Signed: Akira Elaine MD at 21:45 EDT , Discharge Plan Triage Chief Complaint: Confusion ED Provider: Emmanuel Saenz Dx/Rx/DC Orders Clinical Impression: Parkinsons disease, Dementia Instructions: Parkinson Disease Caregiver Prescriptions: No Action Alena, Bladder Health 1 tab PO DAILY RF: 0 aspirin 325 MG tablet 325 mg PO DAILY@0800 RF: 0 calcium carbonate 500 MG tablet 500 mg PO DAILY RF: 0 tamsulosin 0.4 MG capsule 0.4 mg PO DAILY RF: 0 metoprolol succinate 25 MG tablet 25 mg PO DAILY RF: 0 finasteride 5 MG tablet 5 mg PO DAILY RF: 0 red yeast rice 600 MG capsule 600 mg PO DAILY RF: 0 astaxanthin 4 MG capsule 4 mg PO DAILY RF: 0 lactobacillus combination no.4 [Probiotic] 1 EACH capsule 2 ea PO BID RF: 0 Chlorofresh 2 tab PO DAILY RF: 0 Cholecalciferol (Vitamin D3) [Vitamin D3] 5,000 UNIT capsule 5,000 unit PO DAILY RF: 0 Efa, Essential Fatty Acid 1 cap PO TID RF: 0 Glucosamine Daily Complex Tab 2 tab PO BID RF: 0 [place] Dunnigan Extract 5 drp PO DAILY RF: 0 [place] Drink 1 packet PO DAILY RF: 0 Tumeric/Carcumin 1 tab PO DAILY RF: 0 Vital 3-For Joints 3 drp PO DAILY RF: 0 ciprofloxacin HCl 500 MG tablet 500 mg PO BID Qty: 10 RF: 0 hydrocodone-acetaminophen 1 TABLET tablet 1 tab PO Q4H PRN PRN (Reason: Pain) Qty: 10 RF: 0 Primary Care Provider: Maikel Mosquera Referrals: Maikel Mosquera MD [Primary Care Provider] - 3-5 Days Disposition Disposition: Detention Facility
[2021-10-03 00:46] VITALS: BP 160/80; PULSE 91; RESP 16; O2SAT 95
== END 2021-10-03 00:49 | disposition skilled nursing facility (03) ==
PROVIDERS: Emergency Provider Emergency Medicine; PCP Family Medicine; Visit Provider Emergency Medicine
DX: G20 Parkinson's disease (principal); F02.80 Dementia in other diseases classified elsewhere, unspecified severity, without behavioral disturbance, psychotic disturbance, mood disturbance, and anxiety; I48.91 Unspecified atrial fibrillation; I10 Essential (primary) hypertension; N40.0 Benign prostatic hyperplasia without lower urinary tract symptoms; F32.A Depression, unspecified; Z79.82 Long term (current) use of aspirin; Z79.899 Other long term (current) drug therapy
CPT/HCPCS: 70450; 80053; 81001; 84484; 85025; 93005; 96360; 96361; 99285; J7040; P9612; A4216

== ENCOUNTER → 2021-10-21 | Outpatient (REF) | payer MEDICARE, MEDICAID, SELFPAY ==
[2021-10-21 09:06] LABS: Hematocrit 38.8 % (40-54); Hemoglobin 12.7 g/dL (13.0-16.5); Mean Corp Hgb Conc 32.7 g/dL (32-36); Mean Corpuscular Hgb 31.7 pg (27.0-32.0); Mean Corpuscular Volume 96.8 fL (80-94); Mean Platelet Vol. 9.1 fl (6.2-12.0); Platelet Count 273 K/mm3 (150-450); RBC Distribution Width CV 12.6 % (11.6-14.6); RBC Distribution Width SD 44.9 fl (35.1-43.9); Red Blood Count 4.01 M/mm3 (4.6-6.2); White Blood Count 4.4 K/mm3 (4.4-11.0)
[2021-10-21 09:28] LABS: Anion Gap 2 (5-15); BUN 27 mg/dL (7-18); BUN/Creat Ratio 27.8 RATIO (10-20); Calcium,Total 9.1 mg/dL (8.5-10.1); Chloride 107 mmol/L (98-107); Creatinine, Serum 0.97 mg/dL (0.70-1.30); EST Glomerular Filtration Rate 80 mL/min (>60); Est Glom Filt Rate - Afr Amer 97 mL/min (>60); Glucose 94 mg/dL (74-106); Potassium 4.3 mmol/L (3.5-5.1); Sodium Level 140 mmol/L (136-145)
== END | disposition home or self-care (01) ==
LOC: OLS.WHLEAS 05:00
PROVIDERS: PCP Family Medicine; Referring Provider Family Medicine; Visit Provider Family Medicine
DX: G20 Parkinson's disease (principal); N17.9 Acute kidney failure, unspecified; I48.20 Chronic atrial fibrillation, unspecified; N18.30 Chronic kidney disease, stage 3 unspecified; I12.9 Hypertensive chronic kidney disease with stage 1 through stage 4 chronic kidney disease, or unspecified chronic kidney disease
CPT/HCPCS: 36415; 80048; 85027

== ENCOUNTER → 2021-11-18 | Outpatient (REF) | payer MEDICARE, MEDICAID, SELFPAY ==
[2021-11-18 09:02] LABS: Hematocrit 37.5 % (40-54); Hemoglobin 12.6 g/dL (13.0-16.5); Mean Corp Hgb Conc 33.6 g/dL (32-36); Mean Corpuscular Hgb 31.5 pg (27.0-32.0); Mean Corpuscular Volume 93.8 fL (80-94); Mean Platelet Vol. 9.5 fl (6.2-12.0); Platelet Count 175 K/mm3 (150-450); RBC Distribution Width CV 13.1 % (11.6-14.6); RBC Distribution Width SD 44.8 fl (35.1-43.9); White Blood Count 4.4 K/mm3 (4.4-11.0)
[2021-11-18 09:14] LABS: Anion Gap 2 (5-15); BUN 30 mg/dL (7-18); BUN/Creat Ratio 31.3 RATIO (10-20); Calcium,Total 9.1 mg/dL (8.5-10.1); Chloride 108 mmol/L (98-107); Creatinine, Serum 0.96 mg/dL (0.70-1.30); EST Glomerular Filtration Rate 81 mL/min (>60); Est Glom Filt Rate - Afr Amer 98 mL/min (>60); Glucose 85 mg/dL (74-106); Potassium 4.5 mmol/L (3.5-5.1); Sodium Level 142 mmol/L (136-145)
== END ==
LOC: OLS.WHLEAS 05:00
PROVIDERS: PCP Family Medicine; Visit Provider Family Medicine
DX: G20 Parkinson's disease (principal); N17.9 Acute kidney failure, unspecified; I48.20 Chronic atrial fibrillation, unspecified; N18.30 Chronic kidney disease, stage 3 unspecified; I12.9 Hypertensive chronic kidney disease with stage 1 through stage 4 chronic kidney disease, or unspecified chronic kidney disease
CPT/HCPCS: 36415; 80048; 85027

== ENCOUNTER → 2021-12-23 | Outpatient (REF) | payer MEDICARE, MEDICAID, SELFPAY ==
[2021-12-23 09:30] LABS: Hematocrit 39.2 % (40-54); Hemoglobin 13.5 g/dL (13.0-16.5); Mean Corp Hgb Conc 34.4 g/dL (32-36); Mean Corpuscular Hgb 32.5 pg (27.0-32.0); Mean Corpuscular Volume 94.5 fL (80-94); Mean Platelet Vol. 9.3 fl (6.2-12.0); Platelet Count 173 K/mm3 (150-450); RBC Distribution Width CV 12.7 % (11.6-14.6); RBC Distribution Width SD 43.9 fl (35.1-43.9); Red Blood Count 4.15 M/mm3 (4.6-6.2); White Blood Count 4.2 K/mm3 (4.4-11.0)
[2021-12-23 09:42] LABS: Anion Gap 4 (5-15); BUN 30 mg/dL (7-18); BUN/Creat Ratio 35.5 RATIO (10-20); Calcium,Total 8.9 mg/dL (8.5-10.1); Chloride 105 mmol/L (98-107); Creatinine, Serum 0.84 mg/dL (0.70-1.30); EST Glomerular Filtration Rate 94 mL/min (>60); Est Glom Filt Rate - Afr Amer 114 mL/min (>60); Glucose 89 mg/dL (74-106); Potassium 4.2 mmol/L (3.5-5.1); Sodium Level 138 mmol/L (136-145)
== END ==
LOC: OLS.WHLEAS 05:00
PROVIDERS: PCP Family Medicine; Visit Provider Family Medicine
DX: N18.30 Chronic kidney disease, stage 3 unspecified (principal); I12.9 Hypertensive chronic kidney disease with stage 1 through stage 4 chronic kidney disease, or unspecified chronic kidney disease; G20 Parkinson's disease; R25.8 Other abnormal involuntary movements; I48.20 Chronic atrial fibrillation, unspecified; N17.9 Acute kidney failure, unspecified
CPT/HCPCS: 36415; 80048; 85027

== ENCOUNTER → 2022-01-20 | Outpatient (REF) | payer MEDICARE, MEDICAID, SELFPAY ==
[2022-01-20 08:26] LABS: Hematocrit 38.8 % (40-54); Hemoglobin 13.2 g/dL (13.0-16.5); Mean Corpuscular Hgb 31.7 pg (27.0-32.0); Mean Platelet Vol. 9.2 fl (6.2-12.0); Platelet Count 178 K/mm3 (150-450); RBC Distribution Width CV 12.6 % (11.6-14.6); RBC Distribution Width SD 42.7 fl (35.1-43.9); Red Blood Count 4.17 M/mm3 (4.6-6.2); White Blood Count 4.6 K/mm3 (4.4-11.0)
[2022-01-20 08:54] LABS: Anion Gap 7 (5-15); BUN 27 mg/dL (7-18); BUN/Creat Ratio 28.6 RATIO (10-20); Chloride 104 mmol/L (98-107); Creatinine, Serum 0.94 mg/dL (0.70-1.30); EST Glomerular Filtration Rate 82 mL/min (>60); Est Glom Filt Rate - Afr Amer 100 mL/min (>60); Glucose 87 mg/dL (74-106); Potassium 4.3 mmol/L (3.5-5.1); Sodium Level 140 mmol/L (136-145)
== END ==
LOC: OLS.WHLEAS 05:00
PROVIDERS: PCP Family Medicine; Visit Provider Family Medicine
DX: G20 Parkinson's disease (principal); N17.9 Acute kidney failure, unspecified; I48.20 Chronic atrial fibrillation, unspecified; N18.30 Chronic kidney disease, stage 3 unspecified; I12.9 Hypertensive chronic kidney disease with stage 1 through stage 4 chronic kidney disease, or unspecified chronic kidney disease
CPT/HCPCS: 36415; 80048; 85027

== ENCOUNTER → 2022-02-07 | Outpatient (REF) | payer MEDICARE, MEDICAID, SELFPAY ==
[2022-02-07 10:17] LABS: Hemoglobin A1c 5.6 % (3.8-5.6)
[2022-02-07 10:30] LABS: AST(SGOT) 12 U/L (15-37); Alanine Aminotransfer ALT/SGPT 8 U/L (16-61); Albumin, Serum 3.3 g/dL (3.2-5.0); Alkaline Phosphatase 118 U/L (45-117); Bilirubin, Direct 0.12 mg/dL (0.00-0.30); Cholesterol 184 mg/dL (200); High Density Lipoprotein 44 mg/dL; Protein, Total 6.3 g/dL (6.4-8.2); T4 Free Direct 0.87 ng/dL (0.76-1.46); Thyroid Stim Hormone (TSH) 0.81 uIU/mL (0.358-3.74); Triglycerides 103 mg/dL; Very Low Density Lipoprotein 21 mg/dL (5-40)
== END ==
LOC: OLS.WHLEAS 05:00
PROVIDERS: PCP Family Medicine; Visit Provider Family Medicine
DX: G20 Parkinson's disease (principal); I48.20 Chronic atrial fibrillation, unspecified; F02.81 Dementia in other diseases classified elsewhere, unspecified severity, with behavioral disturbance; I12.9 Hypertensive chronic kidney disease with stage 1 through stage 4 chronic kidney disease, or unspecified chronic kidney disease; N18.9 Chronic kidney disease, unspecified; Z79.899 Other long term (current) drug therapy
CPT/HCPCS: 36415; 80061; 80076; 83036; 84439; 84443

== ENCOUNTER → 2022-02-24 | Outpatient (REF) | payer MEDICARE, MEDICAID, SELFPAY ==
[2022-02-24 06:47] LABS: Hematocrit 41.9 % (40-54); Hemoglobin 14.3 g/dL (13.0-16.5); Mean Corp Hgb Conc 34.1 g/dL (32-36); Mean Corpuscular Hgb 32.6 pg (27.0-32.0); Mean Corpuscular Volume 95.4 fL (80-94); Mean Platelet Vol. 9.2 fl (6.2-12.0); Platelet Count 162 K/mm3 (150-450); RBC Distribution Width CV 12.6 % (11.6-14.6); RBC Distribution Width SD 44.2 fl (35.1-43.9); Red Blood Count 4.39 M/mm3 (4.6-6.2); White Blood Count 5.2 K/mm3 (4.4-11.0)
[2022-02-24 07:22] LABS: Anion Gap 4 (5-15); BUN 28 mg/dL (7-18); BUN/Creat Ratio 27.5 RATIO (10-20); Calcium,Total 9.1 mg/dL (8.5-10.1); Chloride 107 mmol/L (98-107); Creatinine, Serum 1.02 mg/dL (0.70-1.30); EST Glomerular Filtration Rate 75 mL/min (>60); Est Glom Filt Rate - Afr Amer 91 mL/min (>60); Glucose 87 mg/dL (74-106); Potassium 4.8 mmol/L (3.5-5.1); Sodium Level 141 mmol/L (136-145)
== END ==
LOC: OLS.WHLEAS 05:00
PROVIDERS: PCP Family Medicine; Visit Provider Family Medicine
DX: N18.30 Chronic kidney disease, stage 3 unspecified (principal)
CPT/HCPCS: 36415; 80048; 85027

== ENCOUNTER → 2022-03-24 | Outpatient (REF) | payer MEDICARE, MEDICAID, SELFPAY ==
[2022-03-24 07:51] LABS: Hematocrit 39.3 % (40-54); Mean Corp Hgb Conc 33.1 g/dL (32-36); Mean Corpuscular Hgb 31.4 pg (27.0-32.0); Mean Corpuscular Volume 94.9 fL (80-94); Mean Platelet Vol. 9.5 fl (6.2-12.0); Platelet Count 169 K/mm3 (150-450); RBC Distribution Width CV 13.1 % (11.6-14.6); RBC Distribution Width SD 45.6 fl (35.1-43.9); Red Blood Count 4.14 M/mm3 (4.6-6.2); White Blood Count 4.9 K/mm3 (4.4-11.0)
[2022-03-24 08:27] LABS: Anion Gap 5 (5-15); BUN 31 mg/dL (7-18); BUN/Creat Ratio 29.8 RATIO (10-20); Calcium,Total 8.8 mg/dL (8.5-10.1); Chloride 105 mmol/L (98-107); Creatinine, Serum 1.04 mg/dL (0.70-1.30); EST Glomerular Filtration Rate 74 mL/min (>60); Est Glom Filt Rate - Afr Amer 89 mL/min (>60); Glucose 85 mg/dL (74-106); Potassium 4.7 mmol/L (3.5-5.1); Sodium Level 140 mmol/L (136-145)
== END ==
LOC: OLS.WHLEAS 05:00
PROVIDERS: PCP Family Medicine; Visit Provider Family Medicine
DX: G20 Parkinson's disease (principal); N17.9 Acute kidney failure, unspecified; I48.20 Chronic atrial fibrillation, unspecified; N18.30 Chronic kidney disease, stage 3 unspecified; I12.9 Hypertensive chronic kidney disease with stage 1 through stage 4 chronic kidney disease, or unspecified chronic kidney disease
CPT/HCPCS: 36415; 80048; 85027

== ENCOUNTER 2022-04-03 10:06 | Emergency (ER) | payer MEDICARE, MEDICAID, SELFPAY ==
[2022-04-03 10:08] VITALS: BP 116/68; PULSE 67; RESP 14; TEMP 36.1; O2SAT 94; BMI 24.9
--- NOTE | 2022-04-03 10:40 | EDS_ITS ---
HPI History of Present Illness Chief Complaint: Syncope Informant: patient Narrative Narrative: 76-year-old male with a history of Parkinson's and most likely dementia as well as valvular heart disease and atrial fibrillation presenting to the emergency department with a near syncopal episode during breakfast. Patient states he woke up this morning feeling fine. He was sitting in his chair eating his [place] toast when he began to feel like he may pass out. He is a full code. There is report that he complained of chest pain but he does not recall this. Patient does tend to repeat himself about every 1 to 2 minutes stating that he is at the [facility]. He denies any pain at the current time. He is not on a blood thinner. He denies any arm or leg or speech symptoms. Denies any vision changes. [facility] Medical History Anxiety Atrial fibrillation Back pain Benign prostate hyperplasia Dementia Depression Endocarditis Hallucination Hypertension Inguinal hernia Kidney disease Parkinson disease Home Medications Alena, Bladder Health 1 tab PO DAILY 07/24/16 [History Last Taken Unknown] Chlorofresh 2 tab PO DAILY 07/24/16 [History Last Taken Unknown] Cholecalciferol (Vitamin D3) [Vitamin D3] 5,000 unit PO DAILY 07/24/16 [History Last Taken Unknown] Efa, Essential Fatty Acid 1 cap PO TID 07/24/16 [History Last Taken Unknown] Glucosamine Daily Complex Tab 2 tab PO BID 07/24/16 [History Last Taken Unknown] [place] Royer Extract 5 drp PO DAILY 07/24/16 [History Last Taken Unknown] [place] Drink 1 packet PO DAILY 07/24/16 [History Last Taken Unknown] Tumeric/Carcumin 1 tab PO DAILY 07/24/16 [History Last Taken Unknown] Vital 3-For Joints 3 drp PO DAILY 07/24/16 [History Last Taken Unknown] aspirin 325 mg tablet 325 mg PO DAILY@0800 07/24/16 [History Last Taken 07/24/16] astaxanthin 4 mg capsule 4 mg PO DAILY 07/24/16 [History Last Taken Unknown] calcium carbonate 500 mg calcium (1,250 mg) tablet 500 mg PO DAILY 07/24/16 [History Last Taken Unknown] finasteride 5 mg tablet 5 mg PO DAILY 07/24/16 [History Last Taken Unknown] lactobacillus combination no.4 3 billion cell capsule (Probiotic) 2 ea PO BID 07/24/16 [History Last Taken Unknown] metoprolol succinate 25 mg tablet,extended release 24 hr 25 mg PO DAILY 07/24/16 [History Last Taken 07/28/16 11:18 25 MG] red yeast rice 600 mg capsule 600 mg PO DAILY 07/24/16 [History Last Taken Unknown] tamsulosin 0.4 mg capsule 0.4 mg PO DAILY 07/24/16 [History Last Taken Unknown] ciprofloxacin HCl 500 mg tablet 500 mg PO BID ##10 07/28/16 [Rx Last Taken Unknown] hydrocodone-acetaminophen 5-325mg 5mg-325mg 1 tab PO Q4H PRN PRN Pain ##10 07/28/16 [Rx Last Taken Unknown] Allergy/AdvReac Type Severity Reaction Status Date / Time No Known Allergies Allergy Verified 04/03/22 10:08 Social History Smoking Status: Never smoker ROS ROS ED Review of Systems ROS Unobtainable: due to mental status EXAM Physical Exam Const Vital Signs: 04/03/22 10:08 04/03/22 10:40 04/03/22 10:41 Temperature 97.0 F L Temperature Source Oral Pulse Rate 67 Pulse Rate [Lying] Pulse Rate [Sitting (for 1 minute prior to obtaining)] Pulse Rate [Standing (for 1 minute prior to obtaining)] Respiratory Rate 14 Respiratory Pattern Normal Blood Pressure 116/68 Blood Pressure [Lying] Blood Pressure [Sitting (for 1 minute prior to obtaining)] Blood Pressure [Standing (for 1 minute prior to obtaining)] Blood Pressure Mean 84 Blood Pressure Mean [Lying] Blood Pressure Mean [Sitting (for 1 minute prior to obtaining)] Blood Pressure Mean [Standing (for 1 minute prior to obtaining)] Pulse Ox 94 88 Oxygen Delivery Method Room Air Room Air 04/03/22 13:00 04/03/22 13:51 Temperature 97.8 F Temperature Source Temporal Pulse Rate 63 Pulse Rate [Lying] 58 L Pulse Rate [Sitting (for 1 minute prior to obtaining)] 65 Pulse Rate [Standing (for 1 minute prior to obtaining)] 76 Respiratory Rate 18 Respiratory Pattern Blood Pressure 124/76 H Blood Pressure [Lying] 125/77 H Blood Pressure [Sitting (for 1 minute prior to obtaining)] 95/68 Blood Pressure [Standing (for 1 minute prior to obtaining)] 74/64 L Blood Pressure Mean 92 Blood Pressure Mean [Lying] 93 Blood Pressure Mean [Sitting (for 1 minute prior to obtaining)] 77 Blood Pressure Mean [Standing (for 1 minute prior to obtaining)] 67 Pulse Ox 93 Oxygen Delivery Method Room Air Positive well nourished and well developed General Appearance ED: well developed HEENT Reports normocephalic, head/scalp atraumatic and moist mucous membranes Eyes PERRL and EOMs intact bilaterally Neck no lymphadenopathy, supple and no JVD Resp normal respiratory effort and clear to auscultation bilaterally Cardio no murmurs Rhythm: abnormal rhythm irregularly irregular GI normal to inspection, nondistended, normoactive bowel sounds and non-tender Palpation: soft Back/Spine no CVA tenderness and normal ROM Extremity normal to inspection General Extremety ED: Negative for edema General Extremity: Negative for edema Neuro CN's II-XII intact bilaterally Neuro Narrative: Patient knows name and place but not the exact date. Sensorium / Orientation: alert Motor Exam: strength 5/5 throughout Psych mental status grossly normal Mood & Affect: Negative for depressed or tearful Skin no rashes or lesions noted and no wounds MDM MDM MDM Narrative Medical decision making narrative: My interpretation of the chest x-ray is no acute process patient has remained in a rate controlled atrial fibrillation rhythm on the monitor. He is orthostatic but asymptomatic. He did not experience any symptomology while standing. He states that it is very typical in the afternoon for his blood pressure to be low. 2 sets of cardiac enzymes were negative. At this point I do think the patient can be discharged home. Despite the orthostatics he is asymptomatic and has no evidence of ACS. Lab Data Attestation: I reviewed the patient's lab results. Labs: Laboratory Results - last 24 hr 04/03/22 04/03/22 04/03/22 10:20 10:20 13:18 WBC 4.6 RBC 4.45 L Hgb 14.1 Hct 42.5 MCV 95.5 H MCH 31.7 MCHC 33.2 RDW Std Deviation 45.9 H RDW Coeff of Suzan 12.9 Plt Count 173 MPV 9.3 Immature Gran % (Auto) 0.200 Neut % (Auto) 63.1 Lymph % (Auto) 25.3 [place] % (Auto) 7.7 Eos % (Auto) 3.3 Baso % (Auto) 0.4 Absolute Neuts (auto) 2.9 Absolute Lymphs (auto) 1.15 Nucleated RBC % 0 Sodium 142 Potassium 4.2 Chloride 106 Carbon Dioxide 31.0 Anion Gap 5 BUN 30 H Creatinine 0.98 Estim Creat Clear Calc 70.39 Est GFR (MDRD) Af Amer 96 Est GFR (MDRD) Non-Af 79 BUN/Creatinine Ratio 30.7 H Glucose 140 H Calcium 9.1 Troponin I High Sens 8 7 Radiography Diagnostic Testing: Clinical Impression(s) from Imaging Studies Chest X-Ray 04/03/22 10:55 IMPRESSION: No acute findings in the chest. Electronically Signed: Jonathon Astudillo MD at 11:24 EST , EKG Initial EKG: Attestation: I personally reviewed and interpreted this EKG as follows: Comments: Atrial fibrillation with a ventricular rate of 67 bpm. This does not appear changed from the limited EKG that was provided by EMS prehospital. Discharge Plan Triage Chief Complaint: Syncope ED Provider: Natan Sanchez Dx/Rx/DC Orders Clinical Impression: Atrial fibrillation, Near syncope, Parkinson's disease Instructions: ED Fainting, Uncertain Cause Prescriptions: No Action Alena, Bladder Health 1 tab PO DAILY aspirin 325 MG tablet 325 mg PO DAILY@0800 calcium carbonate 500 MG tablet 500 mg PO DAILY tamsulosin 0.4 MG capsule 0.4 mg PO DAILY metoprolol succinate 25 MG tablet 25 mg PO DAILY finasteride 5 MG tablet 5 mg PO DAILY red yeast rice 600 MG capsule 600 mg PO DAILY astaxanthin 4 MG capsule 4 mg PO DAILY lactobacillus combination no.4 [Probiotic] 1 EACH capsule 2 ea PO BID Chlorofresh 2 tab PO DAILY Cholecalciferol (Vitamin D3) [Vitamin D3] 5,000 UNIT capsule 5,000 unit PO DAILY Efa, Essential Fatty Acid 1 cap PO TID Glucosamine Daily Complex Tab 2 tab PO BID [place] Royer Extract 5 drp PO DAILY [place] Drink 1 packet PO DAILY Tumeric/Carcumin 1 tab PO DAILY Vital 3-For Joints 3 drp PO DAILY ciprofloxacin HCl 500 MG tablet 500 mg PO BID Qty: 10 0RF hydrocodone-acetaminophen 1 TABLET tablet 1 tab PO Q4H PRN PRN (Reason: Pain) Qty: 10 0RF Primary Care Provider: Guilherme Butt Referrals: Maikel Mosquera MD [Non-Staff] - 2 Days Disposition Disposition: Home, Self Care
--- NOTE | 2022-04-03 10:40 | EKG12_ITS ---
Test Reason : SYNCOPE Blood Pressure : / mmHG Vent. Rate : 067 BPM Atrial Rate : 000 BPM P-R Int : 000 ms QRS Dur : 106 ms QT Int : 406 ms P-R-T Axes : 000 -07 120 degrees QTc Int : 429 ms Atrial fibrillation Possible Anterior infarct , age undetermined ST & T wave abnormality, consider lateral ischemia Abnormal ECG Confirmed by MARIA EUGENIA LEVIN, ADINA ([id number]), editorial assistant SEAN LAM ([id number]) on 04/04/2022 8:30:05 AM Referred By: SANJU Confirmed By:ADINA DEL CID MD
[2022-04-03 10:41] VITALS: O2SAT 88
--- NOTE | 2022-04-03 10:55 | RAD_ITS ---
EXAM: XR CHEST, 1 VIEW CLINICAL INDICATION: near syncope TECHNIQUE: Frontal view of the chest. This report was created using [employer] report generation technology. COMPARISON: None. FINDINGS: LUNGS AND PLEURAL SPACES: Normal. No consolidation or edema. No pneumothorax. No effusion. HEART: Coronary artery bypass graft (CABG). Normal heart size. MEDIASTINUM: No mediastinal or hilar mass. BONES/JOINTS: No acute abnormality. SOFT TISSUES: Normal. RAD/Chest 1 View (Portable) IMPRESSION: No acute findings in the chest. Electronically Signed: Jonathon Astudillo MD at 11:24 EST ,
[2022-04-03 11:17] LABS: Absolute Lymphocyte Count 1.15 X10^3/uL (0.83-4.51); Absolute Neutrophil Count 2.9 X10^3/uL (2.0-7.7); Basophil# 0.02 X10^3/uL; Basophil% 0.4 % (0-1); Eosinophil# 0.15 X10^3/uL; Eosinophils% 3.3 % (0-5); Hematocrit 42.5 % (40-54); Hemoglobin 14.1 g/dL (13.0-16.5); Lymphocyte # 1.15 X10^3/ul (0.83-4.51); Lymphocyte % 25.3 % (19-41); Mean Corp Hgb Conc 33.2 g/dL (32-36); Mean Corpuscular Hgb 31.7 pg (27.0-32.0); Mean Corpuscular Volume 95.5 fL (80-94); Mean Platelet Vol. 9.3 fl (6.2-12.0); Monocyte# 0.35 X10^3/uL; Monocyte% 7.7 % (0-10); NRBC Flagged by Analyzer 0 % (0-5); Neutrophil # 2.87 X10^3/uL (2.7-7.7); Neutrophil % 63.1 % (47-70); Platelet Count 173 K/mm3 (150-450); RBC Distribution Width CV 12.9 % (11.6-14.6); RBC Distribution Width SD 45.9 fl (35.1-43.9); Red Blood Count 4.45 M/mm3 (4.6-6.2); White Blood Count 4.6 K/mm3 (4.4-11.0)
[2022-04-03 11:36] LABS: Anion Gap 5 (5-15); BUN 30 mg/dL (7-18); BUN/Creat Ratio 30.7 RATIO (10-20); Calcium,Total 9.1 mg/dL (8.5-10.1); Chloride 106 mmol/L (98-107); Creatinine, Serum 0.98 mg/dL (0.70-1.30); EST Glomerular Filtration Rate 79 mL/min (>60); Est Glom Filt Rate - Afr Amer 96 mL/min (>60); Estimated Creatinine Clearance 70.39 ml/min; Glucose 140 mg/dL (74-106); Potassium 4.2 mmol/L (3.5-5.1); Sodium Level 142 mmol/L (136-145); Troponin-I HS 8 pg/mL (3.0-78.0)
[2022-04-03 13:00] VITALS: BP 124/76; PULSE 63; RESP 18; TEMP 36.6; O2SAT 93
[2022-04-03 13:51] VITALS: BP 125/77; BP 74/64; BP 95/68; PULSE 58; PULSE 65; PULSE 76
[2022-04-03 14:19] LABS: Troponin-I HS 7 pg/mL (3.0-78.0)
[2022-04-03 15:00] VITALS: BP 138/73; PULSE 58; RESP 15; O2SAT 95
== END 2022-04-03 15:34 | disposition home or self-care (01) ==
PROVIDERS: Emergency Provider Emergency Medicine; PCP Internal Medicine; Visit Provider Emergency Medicine
DX: I48.91 Unspecified atrial fibrillation (principal); G20 Parkinson's disease; R55 Syncope and collapse
CPT/HCPCS: 71045; 80048; 84484; 85025; 93005; 99285; A4216

== ENCOUNTER → 2022-04-21 | Outpatient (REF) | payer MEDICARE, MEDICAID, SELFPAY ==
[2022-04-21 08:48] LABS: Hematocrit 40.6 % (40-54); Hemoglobin 13.2 g/dL (13.0-16.5); Mean Corp Hgb Conc 32.5 g/dL (32-36); Mean Corpuscular Hgb 31.6 pg (27.0-32.0); Mean Corpuscular Volume 97.1 fL (80-94); Mean Platelet Vol. 9.6 fl (6.2-12.0); Platelet Count 177 K/mm3 (150-450); RBC Distribution Width CV 12.9 % (11.6-14.6); RBC Distribution Width SD 46.2 fl (35.1-43.9); Red Blood Count 4.18 M/mm3 (4.6-6.2); White Blood Count 4.4 K/mm3 (4.4-11.0)
[2022-04-21 09:04] LABS: Anion Gap 4 (5-15); BUN 34 mg/dL (7-18); Calcium,Total 9.1 mg/dL (8.5-10.1); Chloride 108 mmol/L (98-107); Creatinine, Serum 1.03 mg/dL (0.70-1.30); EST Glomerular Filtration Rate 75 mL/min (>60); Est Glom Filt Rate - Afr Amer 90 mL/min (>60); Glucose 104 mg/dL (74-106); Potassium 4.3 mmol/L (3.5-5.1); Sodium Level 142 mmol/L (136-145)
== END ==
LOC: OLS.WHLEAS 05:00
PROVIDERS: PCP Internal Medicine; Visit Provider Family Medicine
DX: I12.9 Hypertensive chronic kidney disease with stage 1 through stage 4 chronic kidney disease, or unspecified chronic kidney disease (principal); G20 Parkinson's disease; R25.8 Other abnormal involuntary movements; I48.20 Chronic atrial fibrillation, unspecified; N17.9 Acute kidney failure, unspecified; N18.30 Chronic kidney disease, stage 3 unspecified
CPT/HCPCS: 36415; 80048; 85027

== ENCOUNTER → 2022-05-26 | Outpatient (REF) | payer MEDICARE, MEDICAID, SELFPAY ==
[2022-05-26 09:14] LABS: Hematocrit 41.8 % (40-54); Hemoglobin 13.8 g/dL (13.0-16.5); Mean Corpuscular Hgb 31.8 pg (27.0-32.0); Mean Corpuscular Volume 96.3 fL (80-94); Mean Platelet Vol. 9.5 fl (6.2-12.0); Platelet Count 185 K/mm3 (150-450); RBC Distribution Width CV 12.5 % (11.6-14.6); Red Blood Count 4.34 M/mm3 (4.6-6.2); White Blood Count 5.1 K/mm3 (4.4-11.0)
[2022-05-26 09:24] LABS: Anion Gap 5 (5-15); BUN 35 mg/dL (7-18); BUN/Creat Ratio 33.7 RATIO (10-20); Chloride 106 mmol/L (98-107); Creatinine, Serum 1.04 mg/dL (0.70-1.30); EST Glomerular Filtration Rate 74 mL/min (>60); Est Glom Filt Rate - Afr Amer 89 mL/min (>60); Glucose 100 mg/dL (74-106); Potassium 4.8 mmol/L (3.5-5.1); Sodium Level 141 mmol/L (136-145)
== END ==
LOC: OLS.WHLEAS 05:00
PROVIDERS: PCP Internal Medicine; Visit Provider Internal Medicine
DX: N18.30 Chronic kidney disease, stage 3 unspecified (principal); G20 Parkinson's disease; F02.80 Dementia in other diseases classified elsewhere, unspecified severity, without behavioral disturbance, psychotic disturbance, mood disturbance, and anxiety; I48.20 Chronic atrial fibrillation, unspecified
CPT/HCPCS: 36415; 80048; 85027

== ENCOUNTER → 2022-06-23 | Outpatient (REF) | payer MEDICARE, MEDICAID, SELFPAY ==
[2022-06-23 07:58] LABS: Hematocrit 41.9 % (40-54); Hemoglobin 13.6 g/dL (13.0-16.5); Mean Corp Hgb Conc 32.5 g/dL (32-36); Mean Corpuscular Hgb 31.8 pg (27.0-32.0); Mean Corpuscular Volume 97.9 fL (80-94); Mean Platelet Vol. 9.3 fl (6.2-12.0); Platelet Count 183 K/mm3 (150-450); RBC Distribution Width CV 12.9 % (11.6-14.6); RBC Distribution Width SD 45.8 fl (35.1-43.9); Red Blood Count 4.28 M/mm3 (4.6-6.2); White Blood Count 6.2 K/mm3 (4.4-11.0)
[2022-06-23 08:08] LABS: Anion Gap 5 (5-15); BUN 36 mg/dL (7-18); Calcium,Total 9.2 mg/dL (8.5-10.1); Chloride 105 mmol/L (98-107); Creatinine, Serum 1.09 mg/dL (0.70-1.30); EST Glomerular Filtration Rate 70 mL/min (>60); Est Glom Filt Rate - Afr Amer 84 mL/min (>60); Glucose 100 mg/dL (74-106); Potassium 4.5 mmol/L (3.5-5.1); Sodium Level 142 mmol/L (136-145)
== END ==
LOC: OLS.WHLEAS 05:00
PROVIDERS: PCP Internal Medicine
DX: N18.30 Chronic kidney disease, stage 3 unspecified (principal); G20 Parkinson's disease; F02.80 Dementia in other diseases classified elsewhere, unspecified severity, without behavioral disturbance, psychotic disturbance, mood disturbance, and anxiety; I48.20 Chronic atrial fibrillation, unspecified
CPT/HCPCS: 36415; 80048; 85027

== ENCOUNTER → 2022-07-21 | Outpatient (REF) | payer MEDICARE, MEDICAID, SELFPAY ==
[2022-07-21 08:18] LABS: Absolute Lymphocyte Count 1.11 X10^3/uL (0.83-4.51); Absolute Neutrophil Count 2.5 X10^3/uL (2.0-7.7); Basophil# 0.02 X10^3/uL; Basophil% 0.5 % (0-1); Eosinophil# 0.15 X10^3/uL; Eosinophils% 3.6 % (0-5); Hemoglobin 13.4 g/dL (13.0-16.5); Lymphocyte # 1.11 X10^3/ul (0.83-4.51); Lymphocyte % 26.7 % (19-41); Mean Corp Hgb Conc 34.4 g/dL (32-36); Mean Corpuscular Hgb 32.7 pg (27.0-32.0); Mean Corpuscular Volume 95.1 fL (80-94); Mean Platelet Vol. 9.3 fl (6.2-12.0); Monocyte% 9.6 % (0-10); NRBC Flagged by Analyzer 0 % (0-5); Neutrophil # 2.46 X10^3/uL (2.7-7.7); Neutrophil % 59.1 % (47-70); Platelet Count 155 K/mm3 (150-450); RBC Distribution Width CV 12.8 % (11.6-14.6); RBC Distribution Width SD 44.6 fl (35.1-43.9); White Blood Count 4.2 K/mm3 (4.4-11.0)
[2022-07-21 08:29] LABS: Anion Gap 8 (5-15); BUN 28 mg/dL (7-18); Calcium,Total 8.7 mg/dL (8.5-10.1); Chloride 106 mmol/L (98-107); Creatinine, Serum 0.93 mg/dL (0.70-1.30); EST Glomerular Filtration Rate 84 mL/min (>60); Est Glom Filt Rate - Afr Amer 101 mL/min (>60); Glucose 95 mg/dL (74-106); Potassium 4.2 mmol/L (3.5-5.1); Sodium Level 142 mmol/L (136-145)
== END ==
LOC: OLS.WHLEAS 05:00
PROVIDERS: PCP Internal Medicine; Visit Provider Internal Medicine
DX: N18.30 Chronic kidney disease, stage 3 unspecified (principal); G20 Parkinson's disease; F02.80 Dementia in other diseases classified elsewhere, unspecified severity, without behavioral disturbance, psychotic disturbance, mood disturbance, and anxiety; I48.20 Chronic atrial fibrillation, unspecified
CPT/HCPCS: 36415; 80048; 85025

== ENCOUNTER 2022-08-02 07:07 | Emergency (ER) | payer MEDICARE, MEDICAID, SELFPAY ==
[2022-08-02 07:08] VITALS: BP 126/83; PULSE 77; RESP 16; TEMP 36.6; O2SAT 96; BMI 25.2
--- NOTE | 2022-08-02 07:11 | EDS_ITS ---
HPI HPI - Fall History of Present Illness Chief Complaint: Fall Narrative Narrative: 77-year-old male here with fall. Patient states he turned abruptly this morning and fell onto bilateral hands, bilateral knees. Denies any pain at this time. Denies any preceding chest pain, shortness of breath, palpitations. Has denied any recent illness. States his hip does not hurt. Per senior care patient injured his right hip after fall. [facility] Medical History Anxiety Atrial fibrillation Back pain Benign prostate hyperplasia Dementia Depression Endocarditis Hallucination Hypertension Inguinal hernia Kidney disease Parkinson disease Home Medications Alena, Bladder Health 1 tab PO DAILY 07/24/16 [History Last Taken Unknown] Chlorofresh 2 tab PO DAILY 07/24/16 [History Last Taken Unknown] Cholecalciferol (Vitamin D3) [Vitamin D3] 5,000 unit PO DAILY 07/24/16 [History Last Taken Unknown] Efa, Essential Fatty Acid 1 cap PO TID 07/24/16 [History Last Taken Unknown] Glucosamine Daily Complex Tab 2 tab PO BID 07/24/16 [History Last Taken Unknown] [place] Extract 5 drp PO DAILY 07/24/16 [History Last Taken Unknown] [place] Drink 1 packet PO DAILY 07/24/16 [History Last Taken Unknown] Tumeric/Carcumin 1 tab PO DAILY 07/24/16 [History Last Taken Unknown] Vital 3-For Joints 3 drp PO DAILY 07/24/16 [History Last Taken Unknown] aspirin 325 mg tablet 325 mg PO DAILY@0800 07/24/16 [History Last Taken 07/24/16] astaxanthin 4 mg capsule 4 mg PO DAILY 07/24/16 [History Last Taken Unknown] calcium carbonate 500 mg calcium (1,250 mg) tablet 500 mg PO DAILY 07/24/16 [History Last Taken Unknown] finasteride 5 mg tablet 5 mg PO DAILY 07/24/16 [History Last Taken Unknown] lactobacillus combination no.4 3 billion cell capsule (Probiotic) 2 ea PO BID 07/24/16 [History Last Taken Unknown] metoprolol succinate 25 mg tablet,extended release 24 hr 25 mg PO DAILY 07/24/16 [History Last Taken 07/28/16 11:18 25 MG] red yeast rice 600 mg capsule 600 mg PO DAILY 07/24/16 [History Last Taken Unknown] tamsulosin 0.4 mg capsule 0.4 mg PO DAILY 07/24/16 [History Last Taken Unknown] ciprofloxacin HCl 500 mg tablet 500 mg PO BID ##10 07/28/16 [Rx Last Taken Unknown] hydrocodone-acetaminophen 5-325mg 5mg-325mg 1 tab PO Q4H PRN PRN Pain ##10 07/28/16 [Rx Last Taken Unknown] Allergy/AdvReac Type Severity Reaction Status Date / Time No Known Allergies Allergy Verified 04/03/22 10:08 Social History Smoking Status: Never smoker ROS ROS ED ROS Narrative Constitutional: Denies fever HEENT: Denies sore throat Neck: Denies neck pain Cardiovascular: Denies chest pain, syncope Respiratory: Denies shortness of breath GI: Denies nausea vomiting or abdominal pain : Denies changes in urinary habits Musculoskeletal: ? Right hip pain (although patient denies this to me on multiple occasions) Neurologic: Denies numbness weakness or loss of sensation Skin denies rash EXAM Physical Exam Narrative Exam Narrative: , Primary Survey Airway: Intact Breathing: Bilateral breath sounds Circulation: Palpable bilateral femorals, Palpable bilateral radial, Palpable bilateral DP and Palpable bilateral PT Disability / Spine precautions GCS Score: Eye Openin Verbal Response: 5 Motor Response: 6 Secondary Survey Constitutional: Please see MDM Head: Atraumatic, Midface stable, NO jaw malocclusion, No Cephalohematoma, and No Lacerations noted Eye: Pupils equal round and reactive to light, Extraocular muscles intact and No periorbital ecchymosis or stepoff, no evidence of entrapment ENT: Oropharynx clear, no lacerations, no hemotympanum, no raccoon eyes or guevara sign Cervical spine / Neck: No cervical spine bony tenderness, crepitance, or stepoff deformity Trachea midline Lungs: Clear to auscultation, No asymmetric rise and No crepitus, no flail chest Cardiac: Regular rate and rhythm and No murmurs Abdomen: Soft, Nontender and No rebound Pelvis: Pelvis stable to compression : No evidence of genital injury Back: No midline bony tenderness to thoracic/lumbar/sacral spines Neuro: At baseline, the patient was alert and orient x3, intact strength and sensation in bilateral upper and lower extremities. 2+ patellar reflexes bilaterally. Gait however he is able to ambulate without significant difficulty Extremities: NO gross Deformities, full hip range of motion flexion, extension, internal/external rotation. Psych: Normal affect Nursing triage notes reviewed, Vital signs reviewed Const Vital Signs: 08/02/22 07:08 08/02/22 07:12 Temperature 98 F Temperature Source Oral Pulse Rate 77 Respiratory Rate 16 Respiratory Effort Normal Non-Labored Respiratory Depth Normal Respiratory Pattern Normal Blood Pressure 126/83 H Blood Pressure Mean 97 Pulse Ox 96 96 Oxygen Delivery Method Room Air Room Air MDM MDM MDM Narrative Medical decision making narrative: Chief Complaint: Fall External records reviewed: CT scan of the head from 09/2021 shows no acute abnormality I considered the following differential diagnosis: Acute traumatic injuries I performed a primary, secondary and tertiary trauma exams and there were no obvious traumatic injuries found. The patient had no complaints. Is hemodynamically stable afebrile nontoxic-appearing is alert and oriented x3. Displayed capacity provide history to make his own medical decisions. He is appropriate for discharge home with close outpatient follow-up by his PCP. Instructed take Tylenol for pain. Told to return if symptoms change or worsen. Factors affecting care: History of dementia, Parkinson's disease Social determinants of health: Geriatric patient, resident of [facility] History obtained from others: EMS Shared decision making: I will have a discussion with the patient and or visitors regarding risk/benefits of further testing or admission. They will be made aware of of the risk/benefits inherent in this decision they will be given the opportunity to voice understanding. Consults: None Discharge Plan Triage Chief Complaint: Fall ED Provider: Matt Callahan Dx/Rx/DC Orders Clinical Impression: Fall, Hx of Parkinson's disease Instructions: ED Fall Prevention Prescriptions: No Action Alena, Bladder Health 1 tab PO DAILY aspirin 325 MG tablet 325 mg PO DAILY@0800 calcium carbonate 500 MG tablet 500 mg PO DAILY tamsulosin 0.4 MG capsule 0.4 mg PO DAILY metoprolol succinate 25 MG tablet 25 mg PO DAILY finasteride 5 MG tablet 5 mg PO DAILY red yeast rice 600 MG capsule 600 mg PO DAILY astaxanthin 4 MG capsule 4 mg PO DAILY lactobacillus combination no.4 [Probiotic] 1 EACH capsule 2 ea PO BID Chlorofresh 2 tab PO DAILY Cholecalciferol (Vitamin D3) [Vitamin D3] 5,000 UNIT capsule 5,000 unit PO DAILY Efa, Essential Fatty Acid 1 cap PO TID Glucosamine Daily Complex Tab 2 tab PO BID [place] Extract 5 drp PO DAILY [place] Drink 1 packet PO DAILY Tumeric/Carcumin 1 tab PO DAILY Vital 3-For Joints 3 drp PO DAILY ciprofloxacin HCl 500 MG tablet 500 mg PO BID Qty: 10 0RF hydrocodone-acetaminophen 1 TABLET tablet 1 tab PO Q4H PRN PRN (Reason: Pain) Qty: 10 0RF Primary Care Provider: Guilherme Butt Referrals: Guilherme Butt MD [Primary Care Provider] - Disposition Disposition: Home, Self Care
[2022-08-02 07:12] VITALS: O2SAT 96
[2022-08-02 07:41] VITALS: BP 114/79; PULSE 71; RESP 16; O2SAT 97
--- NOTE | 2022-08-02 07:43 | NURSING ---
CALLED [facility], ETA IS 30 MIN
== END 2022-08-02 08:09 | disposition home or self-care (01) ==
PROVIDERS: Emergency Provider Emergency Medicine; PCP Internal Medicine; Visit Provider Emergency Medicine
DX: S79.911A Unspecified injury of right hip, initial encounter (principal); G20 Parkinson's disease; W19.XXXA Unspecified fall, initial encounter
CPT/HCPCS: 99284

== ENCOUNTER → 2022-08-25 | Outpatient (REF) | payer MEDICARE, MEDICAID, SELFPAY ==
[2022-08-25 07:02] LABS: Hematocrit 40.5 % (40-54); Hemoglobin 13.2 g/dL (13.0-16.5); Mean Corp Hgb Conc 32.6 g/dL (32-36); Mean Corpuscular Hgb 31.8 pg (27.0-32.0); Mean Corpuscular Volume 97.6 fL (80-94); Mean Platelet Vol. 9.3 fl (6.2-12.0); Platelet Count 176 K/mm3 (150-450); RBC Distribution Width CV 12.5 % (11.6-14.6); RBC Distribution Width SD 45.1 fl (35.1-43.9); Red Blood Count 4.15 M/mm3 (4.6-6.2); White Blood Count 4.4 K/mm3 (4.4-11.0)
[2022-08-25 07:24] LABS: Anion Gap 4 (5-15); BUN 30 mg/dL (7-18); BUN/Creat Ratio 25.6 RATIO (10-20); Calcium,Total 8.7 mg/dL (8.5-10.1); Chloride 106 mmol/L (98-107); Creatinine, Serum 1.17 mg/dL (0.70-1.30); EST Glomerular Filtration Rate 64 mL/min (>60); Est Glom Filt Rate - Afr Amer 78 mL/min (>60); Glucose 90 mg/dL (74-106); Potassium 4.3 mmol/L (3.5-5.1); Sodium Level 139 mmol/L (136-145)
[2022-08-25 07:50] LABS: Vitamin B12 239 pg/mL (211-911)
== END ==
LOC: OLS.WHLEAS 05:00
PROVIDERS: PCP Internal Medicine; Visit Provider Internal Medicine
DX: N18.30 Chronic kidney disease, stage 3 unspecified (principal); G20 Parkinson's disease; F02.80 Dementia in other diseases classified elsewhere, unspecified severity, without behavioral disturbance, psychotic disturbance, mood disturbance, and anxiety; I48.20 Chronic atrial fibrillation, unspecified; K14.8 Other diseases of tongue
CPT/HCPCS: 36415; 80048; 82607; 85027

== ENCOUNTER → 2022-09-21 | Outpatient (CLI) | payer MEDICARE, MEDICAID, SELFPAY ==
--- NOTE | 2022-09-21 07:28 | ECHOD_ITS ---
Reason For Study: Aortic Valve Replacement Procedure This was a 2D Doppler, Color Flow transthoracic echocardiogram. Exam performed in department. Left Ventricle Normal LV size. Mild concentric left ventricular hypertrophy. The estimated ejection fraction is 55 %. Stage 1 diastolic dysfunction. No regional wall motion abnormalities noted. Right Ventricle Normal RV size. Normal systolic function. Atria Normal left atrium. Normal right atrium. Mitral Valve Normal mitral valve. Tricuspid Valve Normal tricuspid valve. Mild tricuspid valve insufficiency. Pulmonary artery systolic pressure is 28 mmHg. Aortic Valve Trivial aortic valve insufficiency. Bioprosthetic aortic valve. Pulmonic Valve Normal pulmonic valve. Mild (1+) pulmonic valve insufficiency. Great Vessels Moderately dilated aortic root. The pulmonary artery is normal size. Normal inferior vena cava. Pericardium/Pleural No pericardial effusion. MMode/2D Measurements & Calculations LVIDd: 4.1 cm IVSd: 1.4 cm LVOT diam: 2.1 cm LVIDs: 2.6 cm LVPWd: 1.3 cm LVOT area: 3.5 cm2 RVDd: 4.0 cm FS: 35.2 % Ao root diam: 5.0 cm LAV(MOD-bp): 39.4 ml LVAd ap4: 30.4 cm2 LAV(MOD-bp) Indexed: 19.2 ml/m2 LVLd ap4: 8.7 cm LAV(MOD-sp2): 32.1 ml EDV(MOD-sp4): 89.7 ml LAV(MOD-sp4): 49.5 ml EDV(sp4-el): 89.9 ml LVAs ap4: 17.2 cm2 LVLs ap4: 7.5 cm ESV(MOD-sp4): 34.1 ml ESV(sp4-el): 33.7 ml EF(MOD-sp4): 62.0 % EF(sp4-el): 62.5 % LVAd ap2: 22.8 cm2 SV(MOD-sp4): 55.6 ml SV(MOD-sp2): 23.8 ml LVLd ap2: 9.1 cm EDV(MOD-sp2): 51.8 ml EDV(sp2-el): 48.6 ml LVAs ap2: 15.4 cm2 LVLs ap2: 8.0 cm ESV(MOD-sp2): 27.9 ml ESV(sp2-el): 25.2 ml EF(MOD-sp2): 46.1 % SV(sp4-el): 56.2 ml LA dimension(2D): 5.0 cm LA A4 area: 18.6 cm2 RA A4 area: 11.9 cm2 TAPSE: 1.2 cm Time Measurements MV dec time: 0.24 sec Doppler Measurements & Calculations MV E max alex: 47.6 cm/sec Lat Peak E' Alex: 9.0 cm/sec Med Peak E' Alex: 7.0 cm/sec MV A max alex: 56.4 cm/sec E/E' lat: 5.3 E/E' med: 6.8 MV E/A: 0.84 Ao V2 max: 247.2 cm/sec AI max alex: 443.7 cm/sec MV dec slope: 197.8 cm/sec2 Ao max P.6 mmHg AI max P.8 mmHg Ao V2 mean: 172.2 cm/sec Ao mean P.5 mmHg AI dec slope: 221.9 cm/sec2 Ao V2 VTI: 57.0 cm AI P1/2t: 585.6 msec AV (velocity ratio): 0.50 SNEHA(I,D): 1.7 cm2 SNEHA(V,D): 1.7 cm2 LV V1 max: 118.1 cm/sec SV(LVOT): 99.1 ml PA V2 max: 108.8 cm/sec LV V1 max P.6 mmHg PA V2 mean: 65.6 cm/sec LV V1 mean P.6 mmHg LV V1 mean: 90.9 cm/sec LV V1 VTI: 28.2 cm TR max alex: 245.2 cm/sec TR max P.1 mmHg ECHO/Echo Complete Interpretation Summary Normal LV size. The estimated ejection fraction is 55 %. Moderately dilated aortic root. Bioprosthetic aortic valve. Mild concentric left ventricular hypertrophy. Stage 1 diastolic dysfunction. Pulmonary artery systolic pressure is 28 mmHg. Ordering Physician: Dwain Yen Referring Physician: Guilherme Butt Performed By: Linda Rangel RDCS
--- NOTE | 2022-09-21 17:18 | STRESSREP ---
Stress Test Report Pharmacologic myocardial perfusion stress test. 77-year-old man with a history of chest pain Resting EKG demonstrates sinus rhythm with a rate of 60 bpm left bundle branch block pattern. Resting blood pressure is 112/62 mmHg. 0.4 mg of regadenoson was infused per usual protocol followed by rapid intravenous saline flush injection. Continuous EKG monitoring was performed. The maximum heart rate was 85 bpm which was 59% of max impacted heart rate the maximum workload was 1 metabolic equivalent. At rest there were no ST or T wave changes noted to suggest ischemia and at peak infusion nonspecific ST changes were noted which did not meet the criteria for ischemia. No clinical angina is noted. The final blood pressure was 104/60 mmHg. Myocardial perfusion protocol. 15 mCi of technetium 99m sestamibi was injected at rest. 0.4 mg of regadenoson was infused per usual protocol. At peak infusion 44.5 mCi of technetium 99m sestamibi was injected stress images were obtained stress and rest images were reconstructed and compared in the short axis vertical long and horizontal long axis. Gated images were also obtained. Perfusion SPECT analysis: Review of the stress images demonstrate normal uptake of tracer noted in all areas of the myocardium. The resting images similar demonstrated normal uptake of tracer noted in all areas of the myocardium. No areas of reversibility are noted to suggest ischemia and no previous infarct is noted. Gated SPECT analysis: The gated ejection fraction is 69%. Conclusion: Normal pharmacologic myocardial perfusion stress test. Preserved ejection fraction.
== END | disposition home or self-care (01) ==
PROVIDERS: PCP Internal Medicine; Referring Provider Internal Medicine Cardiovascular Disease; Visit Provider Internal Medicine Cardiovascular Disease
DX: R07.9 Chest pain, unspecified (principal); I48.0 Paroxysmal atrial fibrillation; Z95.3 Presence of xenogenic heart valve
CPT/HCPCS: 78452; 93017; 93306; A9500; A4216; J2785

== ENCOUNTER → 2022-09-22 | Outpatient (REF) | payer MEDICARE, MEDICAID, SELFPAY ==
[2022-09-22 07:42] LABS: Hemoglobin 13.4 g/dL (13.0-16.5); Mean Corp Hgb Conc 32.7 g/dL (32-36); Mean Corpuscular Hgb 31.8 pg (27.0-32.0); Mean Corpuscular Volume 97.4 fL (80-94); Mean Platelet Vol. 9.3 fl (6.2-12.0); Platelet Count 187 K/mm3 (150-450); RBC Distribution Width CV 12.3 % (11.6-14.6); RBC Distribution Width SD 43.7 fl (35.1-43.9); Red Blood Count 4.21 M/mm3 (4.6-6.2); White Blood Count 5.1 K/mm3 (4.4-11.0)
[2022-09-22 07:59] LABS: Anion Gap 4 (5-15); BUN 25 mg/dL (7-18); BUN/Creat Ratio 27.7 RATIO (10-20); Calcium,Total 8.8 mg/dL (8.5-10.1); Chloride 106 mmol/L (98-107); EST Glomerular Filtration Rate 87 mL/min (>60); Est Glom Filt Rate - Afr Amer 105 mL/min (>60); Glucose 86 mg/dL (74-106); Potassium 4.4 mmol/L (3.5-5.1); Sodium Level 141 mmol/L (136-145)
== END ==
LOC: OLS.WHLEAS 05:00
PROVIDERS: PCP Internal Medicine; Visit Provider Nurse Practitioner Adult Health
DX: N18.30 Chronic kidney disease, stage 3 unspecified (principal); G20 Parkinson's disease; F02.80 Dementia in other diseases classified elsewhere, unspecified severity, without behavioral disturbance, psychotic disturbance, mood disturbance, and anxiety; I48.20 Chronic atrial fibrillation, unspecified
CPT/HCPCS: 36415; 80048; 85027

== ENCOUNTER → 2022-10-20 | Outpatient (REF) | payer MEDICARE, MEDICAID, SELFPAY ==
[2022-10-20 08:23] LABS: Hematocrit 43.5 % (40-54); Hemoglobin 14.2 g/dL (13.0-16.5); Mean Corp Hgb Conc 32.6 g/dL (32-36); Mean Corpuscular Hgb 31.7 pg (27.0-32.0); Mean Corpuscular Volume 97.1 fL (80-94); Mean Platelet Vol. 9.1 fl (6.2-12.0); Platelet Count 204 K/mm3 (150-450); RBC Distribution Width CV 12.5 % (11.6-14.6); RBC Distribution Width SD 44.9 fl (35.1-43.9); Red Blood Count 4.48 M/mm3 (4.6-6.2); White Blood Count 4.7 K/mm3 (4.4-11.0)
[2022-10-20 08:34] LABS: Anion Gap 6 (5-15); BUN 27 mg/dL (7-18); BUN/Creat Ratio 28.2 RATIO (10-20); Calcium,Total 8.7 mg/dL (8.5-10.1); Chloride 104 mmol/L (98-107); Creatinine, Serum 0.96 mg/dL (0.70-1.30); EST Glomerular Filtration Rate 81 mL/min (>60); Est Glom Filt Rate - Afr Amer 98 mL/min (>60); Glucose 95 mg/dL (74-106); Potassium 4.3 mmol/L (3.5-5.1); Sodium Level 138 mmol/L (136-145)
== END ==
LOC: OLS.WHLEAS 05:00
PROVIDERS: PCP Internal Medicine; Visit Provider Nurse Practitioner Adult Health
DX: N18.30 Chronic kidney disease, stage 3 unspecified (principal); G20 Parkinson's disease; F02.80 Dementia in other diseases classified elsewhere, unspecified severity, without behavioral disturbance, psychotic disturbance, mood disturbance, and anxiety; I48.20 Chronic atrial fibrillation, unspecified
CPT/HCPCS: 36415; 80048; 85027

== ENCOUNTER → 2022-11-24 | Outpatient (REF) | payer MEDICARE, MEDICAID, SELFPAY ==
[2022-11-24 06:42] LABS: Hematocrit 39.1 % (40-54); Mean Corp Hgb Conc 33.2 g/dL (32-36); Mean Corpuscular Volume 96.3 fL (80-94); Mean Platelet Vol. 9.3 fl (6.2-12.0); Platelet Count 188 K/mm3 (150-450); RBC Distribution Width CV 12.7 % (11.6-14.6); Red Blood Count 4.06 M/mm3 (4.6-6.2); White Blood Count 4.6 K/mm3 (4.4-11.0)
[2022-11-24 07:25] LABS: Anion Gap 5 (5-15); BUN 33 mg/dL (7-18); BUN/Creat Ratio 34.3 RATIO (10-20); Calcium,Total 8.7 mg/dL (8.5-10.1); Chloride 109 mmol/L (98-107); Creatinine, Serum 0.96 mg/dL (0.70-1.30); EST Glomerular Filtration Rate 80 mL/min (>60); Est Glom Filt Rate - Afr Amer 97 mL/min (>60); Glucose 132 mg/dL (74-106); Sodium Level 140 mmol/L (136-145)
== END ==
LOC: OLS.WHLEAS 05:00
PROVIDERS: PCP Internal Medicine; Visit Provider Internal Medicine
DX: N18.30 Chronic kidney disease, stage 3 unspecified (principal); G20 Parkinson's disease; F02.80 Dementia in other diseases classified elsewhere, unspecified severity, without behavioral disturbance, psychotic disturbance, mood disturbance, and anxiety; I48.20 Chronic atrial fibrillation, unspecified
CPT/HCPCS: 36415; 80048; 85027

== ENCOUNTER → 2022-12-22 | Outpatient (REF) | payer MEDICARE, MEDICAID, SELFPAY ==
[2022-12-22 08:15] LABS: Hematocrit 40.3 % (40-54); Hemoglobin 13.4 g/dL (13.0-16.5); Mean Corp Hgb Conc 33.3 g/dL (32-36); Mean Corpuscular Hgb 32.4 pg (27.0-32.0); Mean Corpuscular Volume 97.3 fL (80-94); Platelet Count 179 K/mm3 (150-450); RBC Distribution Width CV 12.8 % (11.6-14.6); RBC Distribution Width SD 45.3 fl (35.1-43.9); Red Blood Count 4.14 M/mm3 (4.6-6.2); White Blood Count 4.6 K/mm3 (4.4-11.0)
[2022-12-22 08:24] LABS: Anion Gap 1 (5-15); BUN 26 mg/dL (7-18); BUN/Creat Ratio 26.2 RATIO (10-20); Calcium,Total 8.9 mg/dL (8.5-10.1); Chloride 106 mmol/L (98-107); Creatinine, Serum 0.99 mg/dL (0.70-1.30); EST Glomerular Filtration Rate 78 mL/min (>60); Est Glom Filt Rate - Afr Amer 94 mL/min (>60); Glucose 87 mg/dL (74-106); Potassium 4.5 mmol/L (3.5-5.1); Sodium Level 140 mmol/L (136-145)
== END ==
LOC: OLS.WHLEAS 05:00
PROVIDERS: PCP Internal Medicine; Visit Provider Internal Medicine
DX: N18.30 Chronic kidney disease, stage 3 unspecified (principal)
CPT/HCPCS: 36415; 80048; 85027

== ENCOUNTER → 2023-01-19 | Outpatient (REF) | payer MEDICARE, MEDICAID, SELFPAY ==
[2023-01-19 07:48] LABS: Hematocrit 41.8 % (40-54); Hemoglobin 13.4 g/dL (13.0-16.5); Mean Corp Hgb Conc 32.1 g/dL (32-36); Mean Corpuscular Hgb 31.8 pg (27.0-32.0); Mean Corpuscular Volume 99.1 fL (80-94); Mean Platelet Vol. 9.4 fl (6.2-12.0); Platelet Count 180 K/mm3 (150-450); RBC Distribution Width CV 12.8 % (11.6-14.6); RBC Distribution Width SD 46.4 fl (35.1-43.9); Red Blood Count 4.22 M/mm3 (4.6-6.2); White Blood Count 4.5 K/mm3 (4.4-11.0)
[2023-01-19 08:00] LABS: Anion Gap 2 (5-15); BUN 26 mg/dL (7-18); BUN/Creat Ratio 25.5 RATIO (10-20); Calcium,Total 9.1 mg/dL (8.5-10.1); Chloride 107 mmol/L (98-107); Creatinine, Serum 1.02 mg/dL (0.70-1.30); EST Glomerular Filtration Rate 75 mL/min (>60); Est Glom Filt Rate - Afr Amer 91 mL/min (>60); Glucose 93 mg/dL (74-106); Potassium 4.8 mmol/L (3.5-5.1); Sodium Level 141 mmol/L (136-145)
== END ==
LOC: OLS.WHLEAS 05:00
PROVIDERS: PCP Internal Medicine; Visit Provider Internal Medicine
DX: N18.30 Chronic kidney disease, stage 3 unspecified (principal); G20 Parkinson's disease; I48.20 Chronic atrial fibrillation, unspecified
CPT/HCPCS: 36415; 80048; 85027

== ENCOUNTER → 2023-02-06 | Outpatient (REF) | payer MEDICARE, MEDICAID, SELFPAY ==
[2023-02-06 09:05] LABS: AST(SGOT) 11 U/L (15-37); Alanine Aminotransfer ALT/SGPT 9 U/L (16-61); Albumin, Serum 3.4 g/dL (3.2-5.0); Alkaline Phosphatase 119 U/L (45-117); Bilirubin, Direct 0.11 mg/dL (0.00-0.30); Cholesterol 180 mg/dL (200); Globulin 2.9 g/dL (2.2-4.2); High Density Lipoprotein 50 mg/dL; Protein, Total 6.3 g/dL (6.4-8.2); T4 Free Direct 0.65 ng/dL (0.76-1.46); Thyroid Stim Hormone (TSH) 1.03 uIU/mL (0.358-3.74); Triglycerides 108 mg/dL; Very Low Density Lipoprotein 22 mg/dL (5-40)
[2023-02-06 11:26] LABS: Hemoglobin A1c 5.3 % (3.8-5.6)
== END ==
LOC: OLS.WHLEAS 04:00
PROVIDERS: PCP Internal Medicine; Referring Provider Internal Medicine; Visit Provider Internal Medicine
DX: G20 Parkinson's disease (principal); F02.80 Dementia in other diseases classified elsewhere, unspecified severity, without behavioral disturbance, psychotic disturbance, mood disturbance, and anxiety; I48.20 Chronic atrial fibrillation, unspecified; Z79.899 Other long term (current) drug therapy
CPT/HCPCS: 36415; 80061; 80076; 83036; 84439; 84443

== ENCOUNTER 2023-02-12 07:53 | Day surgery (SDC) | payer MEDICARE, MEDICAID, SELFPAY ==
[2023-02-12] VITALS (9 sets, daily range): BP systolic 122–154; BP diastolic 64–113; PULSE 68–77; RESP 16–18; TEMP 36.6–37.1; O2SAT 88–100; BMI 25.4
--- NOTE | 2023-02-12 | LIP_PTH ---
PATIENT: IGOR CRUZ LOC: [facility] U#:[id number] AGE/SX: 77/M ROOM: RE02/12/[address]: Dr. Ori Jones MD : 1945 BED: DIS: 02/12/2023 SPEC #: [id number] RECD: 02/12/23 15:37 STATUS: MARIZA REFlor #: [id number] MOON: 02/12/23 00:[address]: Ori Jones DEPT: SURGICAL PATHOLOGY RECD BY: Salina Rubin ENTERED: 02/13/23 08:15 SP TYPE: LIPOMA OTHR DR: Dr. Guilherme Butt MD Tissues: Soft tissues, NOS Procedures: Surgery Specimen Level III HEADER OPERATION: Lap robotic left inguinal hernia with mesh PRE-OP DIAGNOSIS: Left inguinal hernia TISSUE SUBMITTED: Lipoma of left cord MICROSCOPIC DIAGNOSIS Left cord lipoma, excision: Cord lipoma with fibrosis and focal vascular congestion. AM:wolfgang 02/14/2023 MICROSCOPIC DESCRIPTION Slides are reviewed. GROSS DESCRIPTION Received in fixative is one container labeled with the patient's name and designated lipoma of left cord. The specimen consists of two pieces of adipose tissue measuring in aggregate 5.5 x 1.5 x 0.5 cm. No mass lesion is identified. Sections reveal yellow adipose cut surfaces without area of hemorrhage, necrosis or cystic degeneration. Parts Product Analyst sections are submitted in one cassette. / SJ:wolfgang 02/13/2023 TC:5 CPT: 28335
[2023-02-12] MEDS: Lactated Ringers 1,000 ML 15 ML IV ×2 (10:00→14:38)
--- NOTE | 2023-02-12 10:45 | PCM.HP.BLA ---
History and Physical Date of Admission: 02/12/23 Intake Vital Signs 09/04/2309:58 01/11/2314:37 Height 6 ft 6 ft Weight: 184 lb BMI 24.9 BP 130/85 H Blood Pressure Location Lt brachial Position Sitting Respiration 16 Intake Visit Reasons: INGUINAL HERNIA Chief Complaint: inguinal hernia Factory Hand Required: No Is patient in pain?: No Allergies No Known Allergies Allergy (Verified 01/11/23 14:38) Medications acetaminophen 325 mg tablet 650 mg PO TID PRN 09/04/22 [History Confirmed 01/11/23] aluminum-mag hydroxide-simethicone 400 mg-400 mg-40 mg/5 mL oral susp (Mylanta Maximum Strength) 15 ml PO DAILY 09/04/22 [History Confirmed 01/11/23] aspirin 81 mg tablet,delayed release (Adult Low Dose Aspirin) 81 mg PO DAILY #30 tabs 09/04/22 [Rx Confirmed 01/11/23] bisacodyl 10 mg rectal suppository 10 mg IN DAILY PRN 09/04/22 [History Confirmed 01/11/23] carbidopa ER 50 mg-levodopa 200 mg tablet,extended release 1 tab PO QHS 09/04/22 [History Confirmed 01/11/23] duloxetine 60 mg capsule,delayed release 60 mg PO DAILY 09/04/22 [History Confirmed 01/11/23] magnesium hydroxide 400 mg/5 mL oral suspension (Milk of Magnesia) 30 ml PO DAILY PRN 09/04/22 [History Confirmed 01/11/23] melatonin 10 mg tablet 10 mg PO HS PRN 09/04/22 [History Confirmed 01/11/23] mirabegron 25 mg tablet,extended release 24 hr (Myrbetriq) 25 mg PO DAILY 09/04/22 [History Confirmed 01/11/23] polyethylene glycol 3350 17 gram oral powder packet (Miralax) 17 g PO DAILY 09/04/22 [History Confirmed 01/11/23] quetiapine 100 mg tablet 100 mg PO QHS 09/04/22 [History Confirmed 01/11/23] quetiapine 50 mg tablet 50 mg PO DAILY 09/04/22 [History Confirmed 01/11/23] rivastigmine tartrate 4.5 mg capsule 4.5 mg PO BID 09/04/22 [History Confirmed 01/11/23] sennosides 8.6 mg-docusate sodium 50 mg tablet (Senna-S) 1 tab-cap PO BID 09/04/22 [History Confirmed 01/11/23] carbidopa 25 mg-levodopa 100 mg tablet 1 tab PO 01/11/23 [History Confirmed 01/11/23] [facility] Medical History Anxiety Atrial fibrillation Back pain Benign prostate hyperplasia Bicuspid aortic valve Cardiac arrhythmia Chronic osteoarthritis CKD (chronic kidney disease) stage 3, GFR 30-59 ml/min Dementia Depression Endocarditis Essential hypertension Hallucination Hypertension Inguinal hernia Kidney disease Parkinson disease Parkinson's disease Valvular heart disease Surgical History History of aortic valve replacement with bioprosthetic valve (~11/21/05) History of ascending aortic replacement (~11/21/05) History of foot surgery History of hip replacement Family History Mother Cancer StomachFather Cancer Prostate COPD (chronic obstructive pulmonary disease) Social History Smoking Status: Former smoker alcohol intake: never substance use type: does not use caffeine: No HPI HPI HPI: Patient is a pleasant 77-year-old male with a left inguinal hernia. [facility]. He reports is been there for at least 6 months and has been growing larger. He reports hearing sloshing around when he rolls over. He denies nausea or vomiting currently. ROS General General: Yes fatigue; No weight change, appetite, colon cancer, breast cancer or weakness HEENT HEENT: No difficulty swallowing, eye injury, eye surgery, swollen glands or hoarseness Endo Endocrine: No thyroid disease, diabetes mellitus, thyroid cancer, Hair loss, heat intolerance or cold intolerance Skin Skin: No rash or changing moles Breast Breast: No left breast lump, right breast lump, nipple discharge, breast pain, abnormal mammogram, abnormal US or breast enlargement Musc Musculoskeletal: Yes back problems and arthritis; No rheumatoid arthritis, gout or joint pain Cardio Cardiovascular: No murmur, pacemaker, heart disease, atrial fibrillation, high blood pressure, heart attack, heart stent, palpitations, shortness of breat with exertion or chest pain Psych Psychiatric: Yes depression and anxiety; No hearing voices Resp Respiratory: No shortness of breath, No sleep apnea, No cough, No COPD, No asthma, No emphysema and No wheezing Gastro Gastrointestinal: No abdominal pain, No nausea or vomiting, No diarrhea, Yes constipation, No blood in stool, No acid reflux, No hemorrhoids, No ulcers, No gallbladder problem and No black,tarry stools Conner Hematologic: No blood thinners, No blood disorders, No bleeding, No anemia and No blood clots Neuro Neurologic: No system reviewed and no additional complaints, except as documented, No as per HPI, No abnormal gait, No abnormal hearing, No abnormal movements, No abnormal speech, No behavioral changes, No burning sensations, No confusion, No convulsions, No disequilibrium, No dizziness, No localized weakness, No frequent falls, No headache(s), No lack of coordination, No loss of vision, No memory loss, No numbness, No other visual disturbances, No radicular pain, No restless legs, No sensory deficit, No syncope, No tingling, No tremor(s), No weakness and No other Exam Const General: cooperative Orientation: alert and oriented x3 HENFL Head: normal to inspection Neck Neck: normal visual inspection and full ROM Chest Chest palpation & inspection: normal inspection of the chest Resp Effort & Inspection: normal respiratory effort Auscultation: clear to auscultation bilaterally Cardio Rate: regular rate Rhythm: regular rhythm GI Inspection: non-distended Palpation: soft, hernia indirect inguinal on the left and nontender Skin General: no rashes or lesions noted Neuro General: patient alert and patient oriented x3 Extrem General: full ROM Psych Appearance: grossly normal Mental Status: mental status grossly normal Assessment and Plan Assessment and Plan (1) Left inguinal hernia: Status: Acute Plan: Patient has a reducible left inguinal hernia containing bowel. I discussed robotic assisted laparoscopic inguinal hernia repair with mesh with the patient. I discussed the risks including but limited to bleeding, infection, injury to organs around the hernia such as bowel, bladder, ureter. I also discussed the possibility of having to convert to an open procedure. Patient understands the risks. He will hold his aspirin for 5 days prior to the procedure. Ori Jones MD Pager: [facility] [address] [place] [address], [address] [place] [address] Office: I have examined the patient and the H&P has been reviewed. There are no clinical changes since date of exam.
[2023-02-12] MEDS: Cefazolin 2 GM in 0.9% Normal Saline (100mL Bag) 100 ML IV (11:55)
[2023-02-12] MEDS: Bupivacaine Mpf 0.5% 30 ML VIAL (12:44)
--- NOTE | 2023-02-12 13:43 | PCM.OPRPT ---
Report of Operation Date of Procedure: 02/12/23 Pre-Operative Diagnosis: Left inguinal hernia Post-Operative Diagnosis: Left inguinal hernia Surgery/Procedure Performed:: Robotic assisted laparoscopic left inguinal hernia repair with mesh Type of Anesthesia: General/Regional Specimen's removed: Left cord lipoma Estimated Blood Loss (mL): 10 Description of Procedure: Patient was brought back to the operating room and general anesthesia was induced. The abdomen was prepped and draped in usual sterile fashion. A midline incision was made superior to the umbilicus and the fascia was elevated and a Veress needle was placed into the abdomen. A drop test was performed. Next the abdomen was insufflated 15 mmHg. The Veress needle was removed and a port was placed into the abdomen and the camera was placed through the port. There were no injuries from entry. The patient's left inguinal hernia was identified. It appeared to be a direct hernia. The patient also had a very large bladder. A Soria catheter was then placed. Once the bladder was decompressed a port was placed in the left lateral sidewall and right lateral sidewall under direct visualization. The robot was then docked after patient was placed in Trendelenburg position. Next using electrocautery scissors an incision was made in the peritoneum in the left lower quadrant. Dissection was carried inferiorly until the hernia sac was identified. The hernia sac was reduced. The patient had a large direct hernia. Patient had a cord lipoma which was also removed and sent for pathology. Next a full piece of ProGrip mesh was placed over the left inguinal region completely covering both the direct and indirect space. Next the peritoneum was reapproximated using a running 3 OV lock suture. The mesh was completely covered at the end of the case. Next the instruments were removed and the robot was undocked. The ports were allowed to desufflate the abdomen and the scrotum was checked and it contained both testicles. Next the ports were removed and the incisions were closed with interrupted 4-0 Monocryl suture. Steri-Strips and bandages were applied. Patient was taken to PACU in stable condition. Grafts/Implants Used: ProGrip in the left inguinal region Admit VTE Documentation VTE Mechan Device Prophylaxis: SCD's
--- NOTE | 2023-02-12 13:47 | DCINST_ITS ---
Discharge Instructions Procedure Hernia Diet Discharge Diet: Light diet - advance as tolerated Activity Discharge Activity: May Not Drive (for 2-3 days or while taking narcotic pain meds.) and May Shower (with the bandage in place 1-2 days after surgery.) Lifting Restrictions: 20 pounds for 4 weeks. Additional Activity Instructions:: Climbing stairs is fine, walking is encouraged. Sitting in bed may be uncomfortable. Sitting up using your lateral muscles (sitting up sideways) is usually more comfortable. Do not drive, work heavy equipment of sign legal documents for 24 hours. If your hernia repair was an ingunial repair, you may have scrotal swelling, an ice pack and/or athletic support can provide more comfort. Pain medications may cause nausea, you should typically eat light foods as you take your pain medications. Pain medications may also cause constipation. If you have difficulty with this, discuss with your doctor. Dressing / Incision Call your doctor if your incision/area has: Continuous Slow Oozing, Sudden Increased Bleeding, Increased Pain/ Swelling, Increased Redness and Foul Smelling Discharge Call your doctor if you observe: Fever of 101 or Higher Suture Line Care: Avoid Pulling/Pushing and Avoid Pinching/Bending Remove Dressing in: 2 days (Remove clear bandages in 2 days, remove Steri-Strips in 7 to 10 days.) Cleanse incision/area with: Soap & Water Follow Up Care Please Follow Up With: Ori Jones MD When: Please call to schedule 2 week follow up appointment. [phone] Test Results: Test results from this visit will be discussed in further detail at your follow- up appointment, if applicable. Discharge Plan Admission Attending Provider: Ori Jones Primary Care Provider: Guilherme Butt Instructions Additional Instructions / Restrictions: Alternate ibuprofen and Tylenol for pain, may resume aspirin Sunday. Discharge Orders/Prescriptions Prescriptions: No Action acetaminophen 325 mg tablet 650 mg PO TID bisacodyl 10 mg suppository 10 mg VA DAILY PRN (Reason: constipation) carbidopa-levodopa 50-200 mg tablet extended release 1 tab PO QHS duloxetine 60 mg capsule,delayed release(DR/EC) 60 mg PO DAILY melatonin 10 mg tablet 10 mg PO HS magnesium hydroxide [Milk of Magnesia] 400 mg/5 mL suspension 30 ml PO DAILY PRN (Reason: stomach upset) polyethylene glycol 3350 [Miralax] 17 gram powder in packet 17 g PO DAILY alum-mag hydroxide-simeth [Mylanta Maximum Strength] 400-400-40 mg/5 mL suspension 15 ml PO DAILY PRN (Reason: indigestion) Myrbetriq 25 mg tablet extended release 24 hr 25 mg PO DAILY quetiapine 100 mg tablet 100 mg PO QHS quetiapine 50 mg tablet 50 mg PO DAILY rivastigmine tartrate 4.5 mg capsule 6 mg PO BID sennosides-docusate sodium [Senna-S] 8.6-50 mg tablet 1 tab-cap PO BID aspirin [Adult Low Dose Aspirin] 81 mg tablet,delayed release (DR/EC) 81 mg PO DAILY Qty: 30 12RF carbidopa-levodopa 25-100 mg tablet 1 tab PO TID Referrals / Follow Up: Guilherme Butt MD [Primary Care Provider] - Disposition Disposition (needs filled in before D/C Order can be placed): Home, Self Care
[2023-02-12] MEDS: Acetaminophen 325 MG Tablet 650 MG PO (15:14)
--- NOTE | 2023-02-12 15:22 | SUR.PHASEII ---
REPORT WAS CALLED TO [facility] NURSE ZINA BY THIS RN, VERBAL DISCHARGE INSTRUCTIONS WERE GIVEN TO THE NURSE TAKING CARE OF IGOR SHE VERBALIZED UNDERSTANDING AND THE WRITTEN INSTRUCTIONS WERE GIVEN TO THE SON AND A COPY WAS SENT TO [facility] IN THE PTS CARE PACKET. PT WILL BE D/C BACK TO SNF ONCE TRANSPORTATION ARRIVES.
== END 2023-02-12 16:06 | disposition home or self-care (01) ==
LOC: SDC 07:55 → AC 09:33
PROVIDERS: PCP Internal Medicine; Referring Provider Surgery; Visit Provider Surgery
PROC: (CPT 49650; principal; 2023-02-12 10:45)
DX: K40.90 Unilateral inguinal hernia, without obstruction or gangrene, not specified as recurrent (principal); F02.80 Dementia in other diseases classified elsewhere, unspecified severity, without behavioral disturbance, psychotic disturbance, mood disturbance, and anxiety; N18.30 Chronic kidney disease, stage 3 unspecified; D17.6 Benign lipomatous neoplasm of spermatic cord; G20.A1 Parkinson's disease without dyskinesia, without mention of fluctuations; Z87.891 Personal history of nicotine dependence; Z79.82 Long term (current) use of aspirin; Z95.3 Presence of xenogenic heart valve
CPT/HCPCS: 49650; 00840; 88304; J7120; J2405

== ENCOUNTER → 2023-02-23 | Outpatient (REF) | payer MEDICARE, MEDICAID, SELFPAY ==
[2023-02-23 09:04] LABS: Hematocrit 39.9 % (40-54); Hemoglobin 12.9 g/dL (13.0-16.5); Mean Corp Hgb Conc 32.3 g/dL (32-36); Mean Corpuscular Hgb 31.6 pg (27.0-32.0); Mean Corpuscular Volume 97.8 fL (80-94); Mean Platelet Vol. 9.3 fl (6.2-12.0); Platelet Count 201 K/mm3 (150-450); RBC Distribution Width CV 12.6 % (11.6-14.6); RBC Distribution Width SD 45.7 fl (35.1-43.9); Red Blood Count 4.08 M/mm3 (4.6-6.2)
[2023-02-23 09:16] LABS: Anion Gap 3 (5-15); BUN 32 mg/dL (7-18); BUN/Creat Ratio 29.9 RATIO (10-20); Calcium,Total 8.8 mg/dL (8.5-10.1); Chloride 106 mmol/L (98-107); Creatinine, Serum 1.07 mg/dL (0.70-1.30); EST Glomerular Filtration Rate 71 mL/min (>60); Est Glom Filt Rate - Afr Amer 86 mL/min (>60); Glucose 93 mg/dL (74-106); Potassium 4.3 mmol/L (3.5-5.1); Sodium Level 139 mmol/L (136-145)
== END ==
LOC: OLS.WHLEAS 05:00
PROVIDERS: PCP Internal Medicine; Visit Provider Nurse Practitioner Adult Health
DX: G20.C Parkinsonism, unspecified (principal); N18.30 Chronic kidney disease, stage 3 unspecified; I48.20 Chronic atrial fibrillation, unspecified
CPT/HCPCS: 36415; 80048; 85027

== ENCOUNTER → 2023-03-23 | Outpatient (REF) | payer MEDICARE, MEDICAID, SELFPAY ==
[2023-03-23 08:54] LABS: Hematocrit 39.7 % (40-54); Hemoglobin 12.8 g/dL (13.0-16.5); Mean Corp Hgb Conc 32.2 g/dL (32-36); Mean Corpuscular Hgb 31.4 pg (27.0-32.0); Mean Corpuscular Volume 97.5 fL (80-94); Mean Platelet Vol. 9.4 fl (6.2-12.0); Platelet Count 210 K/mm3 (150-450); RBC Distribution Width CV 12.8 % (11.6-14.6); RBC Distribution Width SD 46.2 fl (35.1-43.9); Red Blood Count 4.07 M/mm3 (4.6-6.2); White Blood Count 4.5 K/mm3 (4.4-11.0)
[2023-03-23 09:14] LABS: Anion Gap 6 (5-15); BUN 28 mg/dL (7-18); Calcium,Total 8.9 mg/dL (8.5-10.1); Chloride 104 mmol/L (98-107); EST Glomerular Filtration Rate 77 mL/min (>60); Est Glom Filt Rate - Afr Amer 93 mL/min (>60); Glucose 91 mg/dL (74-106); Potassium 4.1 mmol/L (3.5-5.1); Sodium Level 141 mmol/L (136-145)
== END ==
LOC: OLS.WHLEAS 05:00
PROVIDERS: PCP Internal Medicine; Visit Provider Nurse Practitioner Adult Health
DX: G20.C Parkinsonism, unspecified (principal); I48.20 Chronic atrial fibrillation, unspecified; N18.30 Chronic kidney disease, stage 3 unspecified
CPT/HCPCS: 36415; 80048; 85027

== ENCOUNTER → 2023-04-20 | Outpatient (REF) | payer MEDICARE, MEDICAID, SELFPAY ==
--- OUTSIDE RECORDS SUMMARY | 2023-04-20 05:14 | XMS RPT_ITS | CCD ---
Author Name Unknown Address [address] [place] [address] Organization [facility] Results Test Name Value Interpretation Reference Range Facil ity Summary Purpose Family History No Family History Records FoundNo Family History Records Found Advance Directives No Advanced Directives Records FoundNo Advanced Directives Records Found Additional Source Comments (unrecognized sect ion and content) No Status Records FoundNo Status Records Found INFORMATION SOURCE (unrecogn ized section and content) DATE CREATED AUTHOR AUTHOR'S MARISOL ATMEAGAN 01/01/2021 [facility] FOR RECORDS PERTAINING TO PATIENTS WHO ARE OR HAVE BEEN ENROLLED IN A CHEMICAL DEPENDENCY/SUBSTANCEABUSE PROGRAM, SOME INFORMATION MAY BE OMITTED. This clinical summary was aggregated from multiple sources. Caution should be exercised in using it in the provision of clinical care. This summary normalizes information from multiple sources, and as a consequence, information in this document may materially change the coding, format and clinical context of patient data. In addition, data may be omitted in some cases. CLINICAL DECISIONS SHOULD BE BASED ON THE PRIMARY CLINICAL RECORDS. [employer]. provides no warranty or guarantee of the accuracy or completeness of information in this document.
[2023-04-20 09:10] LABS: Hematocrit 41.3 % (40-54); Hemoglobin 13.8 g/dL (13.0-16.5); Mean Corp Hgb Conc 33.4 g/dL (32-36); Mean Corpuscular Hgb 32.4 pg (27.0-32.0); Mean Corpuscular Volume 96.9 fL (80-94); Mean Platelet Vol. 9.1 fl (6.2-12.0); Platelet Count 234 K/mm3 (150-450); RBC Distribution Width CV 12.8 % (11.6-14.6); RBC Distribution Width SD 45.5 fl (35.1-43.9); Red Blood Count 4.26 M/mm3 (4.6-6.2); White Blood Count 5.2 K/mm3 (4.4-11.0)
[2023-04-20 09:23] LABS: Anion Gap 0 (5-15); BUN 25 mg/dL (7-18); BUN/Creat Ratio 23.8 RATIO (10-20); Calcium,Total 9.3 mg/dL (8.5-10.1); Chloride 106 mmol/L (98-107); Creatinine, Serum 1.05 mg/dL (0.70-1.30); EST Glomerular Filtration Rate 73 mL/min (>60); Est Glom Filt Rate - Afr Amer 88 mL/min (>60); Glucose 100 mg/dL (74-106); Potassium 4.8 mmol/L (3.5-5.1); Sodium Level 140 mmol/L (136-145)
== END ==
LOC: OLS.WHLEAS 05:00
PROVIDERS: PCP Internal Medicine; Visit Provider Nurse Practitioner Adult Health
DX: I48.20 Chronic atrial fibrillation, unspecified (principal); N18.30 Chronic kidney disease, stage 3 unspecified
CPT/HCPCS: 36415; 80048; 85027

== ENCOUNTER → 2023-05-25 | Outpatient (REF) | payer MEDICARE, MEDICAID, SELFPAY ==
--- OUTSIDE RECORDS SUMMARY | 2023-05-25 05:43 | XMS RPT_ITS | CCD ---
Author Name Unknown Address [address] [place] [address] Organization [facility] Results Test Name Value Interpretation [...] DATE CREATED AUTHOR AUTHOR'S MARISOL ATMEAGAN 01/01/2021 [facility] FOR RECORDS PERTAINING TO PATIENTS WHO ARE [...] BE BASED ON THE PRIMARY CLINICAL RECORDS. [employer] provides no warranty or guarantee of the accuracy or completeness of information in this document.
[2023-05-25 07:29] LABS: Hemoglobin 13.5 g/dL (13.0-16.5); Mean Corp Hgb Conc 32.9 g/dL (32-36); Mean Platelet Vol. 9.2 fl (6.2-12.0); Platelet Count 214 K/mm3 (150-450); RBC Distribution Width CV 12.4 % (11.6-14.6); RBC Distribution Width SD 43.3 fl (35.1-43.9); Red Blood Count 4.36 M/mm3 (4.6-6.2); White Blood Count 5.5 K/mm3 (4.4-11.0)
[2023-05-25 07:48] LABS: Anion Gap 8 (5-15); BUN 27 mg/dL (7-18); BUN/Creat Ratio 25.2 RATIO (10-20); Calcium,Total 9.2 mg/dL (8.5-10.1); Chloride 107 mmol/L (98-107); Creatinine, Serum 1.07 mg/dL (0.70-1.30); EST Glomerular Filtration Rate 71 mL/min (>60); Est Glom Filt Rate - Afr Amer 86 mL/min (>60); Glucose 138 mg/dL (74-106); Potassium 4.1 mmol/L (3.5-5.1); Sodium Level 141 mmol/L (136-145)
== END ==
LOC: OLS.WHLEAS 05:00
PROVIDERS: PCP Internal Medicine; Visit Provider Nurse Practitioner Adult Health
DX: N18.30 Chronic kidney disease, stage 3 unspecified (principal); I48.20 Chronic atrial fibrillation, unspecified
CPT/HCPCS: 36415; 80048; 85027

== ENCOUNTER → 2023-06-22 | Outpatient (REF) | payer MEDICARE, MEDICAID, SELFPAY ==
--- OUTSIDE RECORDS SUMMARY | 2023-06-22 04:34 | XMS RPT_ITS | CCD ---
Author Name Unknown Address [address] [place] [address] Organization [facility] Results Test Name Value Interpretation [...] DATE CREATED AUTHOR AUTHOR'S MARISOL ATMEAGAN 01/01/2021 [facility] FOR RECORDS PERTAINING TO PATIENTS WHO ARE [...] BE BASED ON THE PRIMARY CLINICAL RECORDS. [employer] provides no warranty or guarantee of the accuracy or completeness of information in this document.
[2023-06-22 07:08] LABS: Hematocrit 38.4 % (40-54); Hemoglobin 12.8 g/dL (13.0-16.5); Mean Corp Hgb Conc 33.3 g/dL (32-36); Mean Corpuscular Hgb 31.1 pg (27.0-32.0); Mean Corpuscular Volume 93.4 fL (80-94); Platelet Count 194 K/mm3 (150-450); RBC Distribution Width CV 12.5 % (11.6-14.6); RBC Distribution Width SD 43.2 fl (35.1-43.9); Red Blood Count 4.11 M/mm3 (4.6-6.2); White Blood Count 4.6 K/mm3 (4.4-11.0)
[2023-06-22 07:26] LABS: Anion Gap 4 (5-15); BUN 24 mg/dL (7-18); BUN/Creat Ratio 26.5 RATIO (10-20); Calcium,Total 8.8 mg/dL (8.5-10.1); Chloride 107 mmol/L (98-107); EST Glomerular Filtration Rate 86 mL/min (>60); Est Glom Filt Rate - Afr Amer 104 mL/min (>60); Glucose 88 mg/dL (74-106); Potassium 4.4 mmol/L (3.5-5.1); Sodium Level 141 mmol/L (136-145)
== END ==
LOC: OLS.WHLEAS 05:00
PROVIDERS: PCP Internal Medicine; Visit Provider Internal Medicine
DX: I48.20 Chronic atrial fibrillation, unspecified (principal); N18.30 Chronic kidney disease, stage 3 unspecified; G20.C Parkinsonism, unspecified
CPT/HCPCS: 36415; 80048; 85027

== ENCOUNTER → 2023-07-20 | Outpatient (REF) | payer MEDICARE, MEDICAID, SELFPAY ==
--- OUTSIDE RECORDS SUMMARY | 2023-07-20 05:11 | XMS RPT_ITS | CCD ---
Author Name Unknown Address [address] [place] [address] Organization [facility] Results Test Name Value Interpretation [...] DATE CREATED AUTHOR AUTHOR'S MARISOL ATMEAGAN 01/01/2021 [facility] FOR RECORDS PERTAINING TO PATIENTS WHO [...] BE BASED ON THE PRIMARY CLINICAL RECORDS. [employer] provides no warranty or guarantee of the accuracy or completeness of information in this document.
[2023-07-20 08:27] LABS: Hematocrit 38.9 % (40-54); Hemoglobin 13.1 g/dL (13.0-16.5); Mean Corp Hgb Conc 33.7 g/dL (32-36); Mean Corpuscular Hgb 31.8 pg (27.0-32.0); Mean Corpuscular Volume 94.4 fL (80-94); Mean Platelet Vol. 9.1 fl (6.2-12.0); Platelet Count 195 K/mm3 (150-450); RBC Distribution Width CV 12.8 % (11.6-14.6); Red Blood Count 4.12 M/mm3 (4.6-6.2); White Blood Count 4.5 K/mm3 (4.4-11.0)
[2023-07-20 08:53] LABS: Anion Gap 7 (5-15); BUN 29 mg/dL (7-18); BUN/Creat Ratio 31.5 RATIO (10-20); Calcium,Total 8.8 mg/dL (8.5-10.1); Chloride 109 mmol/L (98-107); Creatinine, Serum 0.92 mg/dL (0.70-1.30); EST Glomerular Filtration Rate 84 mL/min (>60); Est Glom Filt Rate - Afr Amer 102 mL/min (>60); Glucose 83 mg/dL (74-106); Potassium 4.2 mmol/L (3.5-5.1); Sodium Level 142 mmol/L (136-145)
== END ==
LOC: OLS.WHLEAS 05:00
PROVIDERS: PCP Internal Medicine; Visit Provider Internal Medicine
DX: N18.30 Chronic kidney disease, stage 3 unspecified (principal)
CPT/HCPCS: 36415; 80048; 85027

== ENCOUNTER → 2023-08-24 | Outpatient (REF) | payer MEDICARE, MEDICAID, SELFPAY ==
[2023-08-24 08:55] LABS: Hematocrit 40.6 % (40-54); Hemoglobin 13.3 g/dL (13.0-16.5); Mean Corp Hgb Conc 32.8 g/dL (32-36); Mean Corpuscular Hgb 31.5 pg (27.0-32.0); Mean Corpuscular Volume 96.2 fL (80-94); Mean Platelet Vol. 9.2 fl (6.2-12.0); Platelet Count 193 K/mm3 (150-450); RBC Distribution Width SD 46.1 fl (35.1-43.9); Red Blood Count 4.22 M/mm3 (4.6-6.2); White Blood Count 4.6 K/mm3 (4.4-11.0)
[2023-08-24 09:37] LABS: Anion Gap 3 (5-15); BUN 28 mg/dL (7-18); BUN/Creat Ratio 26.9 RATIO (10-20); Chloride 105 mmol/L (98-107); Creatinine, Serum 1.04 mg/dL (0.70-1.30); EST Glomerular Filtration Rate 73 mL/min (>60); Est Glom Filt Rate - Afr Amer 89 mL/min (>60); Glucose 86 mg/dL (74-106); Potassium 4.5 mmol/L (3.5-5.1); Sodium Level 138 mmol/L (136-145)
== END ==
LOC: OLS.WHLEAS 05:00
PROVIDERS: PCP Internal Medicine; Visit Provider Internal Medicine
DX: N18.30 Chronic kidney disease, stage 3 unspecified (principal); G20.C Parkinsonism, unspecified
CPT/HCPCS: 36415; 80048; 85027

== ENCOUNTER → 2023-09-21 | Outpatient (REF) | payer MEDICARE, MEDICAID, SELFPAY ==
[2023-09-21 07:55] LABS: Hematocrit 42.7 % (40-54); Hemoglobin 13.7 g/dL (13.0-16.5); Mean Corp Hgb Conc 32.1 g/dL (32-36); Mean Corpuscular Hgb 31.4 pg (27.0-32.0); Mean Corpuscular Volume 97.7 fL (80-94); Mean Platelet Vol. 9.4 fl (6.2-12.0); Platelet Count 197 K/mm3 (150-450); RBC Distribution Width CV 12.7 % (11.6-14.6); RBC Distribution Width SD 45.8 fl (35.1-43.9); Red Blood Count 4.37 M/mm3 (4.6-6.2); White Blood Count 4.4 K/mm3 (4.4-11.0)
[2023-09-21 08:28] LABS: Anion Gap 4 (5-15); BUN 23 mg/dL (7-18); BUN/Creat Ratio 24.6 RATIO (10-20); Chloride 105 mmol/L (98-107); Creatinine, Serum 0.94 mg/dL (0.70-1.30); EST Glomerular Filtration Rate 83 mL/min (>60); Est Glom Filt Rate - Afr Amer 100 mL/min (>60); Glucose 80 mg/dL (74-106); Potassium 4.7 mmol/L (3.5-5.1); Sodium Level 141 mmol/L (136-145)
== END ==
LOC: OLS.WHLEAS 05:00
PROVIDERS: PCP Internal Medicine; Visit Provider Nurse Practitioner Adult Health
DX: N18.30 Chronic kidney disease, stage 3 unspecified (principal)
CPT/HCPCS: 36415; 80048; 85027

== ENCOUNTER → 2023-10-26 | Outpatient (REF) | payer MEDICARE, MEDICAID, SELFPAY ==
[2023-10-26 08:32] LABS: Hematocrit 39.6 % (40-54); Hemoglobin 13.2 g/dL (13.0-16.5); Mean Corp Hgb Conc 33.3 g/dL (32-36); Mean Corpuscular Hgb 31.6 pg (27.0-32.0); Mean Corpuscular Volume 94.7 fL (80-94); Mean Platelet Vol. 9.3 fl (6.2-12.0); Platelet Count 199 K/mm3 (150-450); RBC Distribution Width CV 12.9 % (11.6-14.6); RBC Distribution Width SD 44.2 fl (35.1-43.9); Red Blood Count 4.18 M/mm3 (4.6-6.2); White Blood Count 5.1 K/mm3 (4.4-11.0)
[2023-10-26 08:50] LABS: Anion Gap 8 (5-15); BUN 30 mg/dL (7-18); BUN/Creat Ratio 37.1 RATIO (10-20); Calcium,Total 9.2 mg/dL (8.5-10.1); Chloride 104 mmol/L (98-107); Creatinine, Serum 0.81 mg/dL (0.70-1.30); EST Glomerular Filtration Rate 98 mL/min (>60); Est Glom Filt Rate - Afr Amer 119 mL/min (>60); Glucose 100 mg/dL (74-106); Potassium 4.3 mmol/L (3.5-5.1); Sodium Level 141 mmol/L (136-145)
== END ==
LOC: OLS.WHLEAS 05:00
PROVIDERS: PCP Internal Medicine; Visit Provider Nurse Practitioner Adult Health
DX: N18.30 Chronic kidney disease, stage 3 unspecified (principal)
CPT/HCPCS: 36415; 80048; 85027

== ENCOUNTER → 2023-11-23 | Outpatient (REF) | payer MEDICARE, MEDICAID, SELFPAY ==
[2023-11-23 07:14] LABS: Hematocrit 37.8 % (40-54); Hemoglobin 12.8 g/dL (13.0-16.5); Mean Corp Hgb Conc 33.9 g/dL (32-36); Mean Corpuscular Hgb 31.8 pg (27.0-32.0); Mean Corpuscular Volume 93.8 fL (80-94); Mean Platelet Vol. 9.2 fl (6.2-12.0); Platelet Count 179 K/mm3 (150-450); RBC Distribution Width CV 12.5 % (11.6-14.6); RBC Distribution Width SD 43.6 fl (35.1-43.9); Red Blood Count 4.03 M/mm3 (4.6-6.2)
[2023-11-23 07:42] LABS: Anion Gap 3 (5-15); BUN 26 mg/dL (7-18); BUN/Creat Ratio 29.4 RATIO (10-20); Chloride 107 mmol/L (98-107); Creatinine, Serum 0.88 mg/dL (0.70-1.30); EST Glomerular Filtration Rate 89 mL/min (>60); Est Glom Filt Rate - Afr Amer 107 mL/min (>60); Glucose 85 mg/dL (74-106); Sodium Level 139 mmol/L (136-145)
== END ==
LOC: OLS.WHLEAS 05:00
PROVIDERS: PCP Internal Medicine; Referring Provider Nurse Practitioner Adult Health; Visit Provider Nurse Practitioner Adult Health
DX: N18.30 Chronic kidney disease, stage 3 unspecified (principal)
CPT/HCPCS: 36415; 80048; 85027

== ENCOUNTER → 2023-12-21 05:00 | Outpatient (REF) | payer MEDICARE, MEDICAID, SELFPAY ==
[2023-12-21 07:14] LABS: Hemoglobin 13.3 g/dL (13.0-16.5); Mean Corp Hgb Conc 34.1 g/dL (32-36); Mean Platelet Vol. 9.3 fl (6.2-12.0); Platelet Count 183 K/mm3 (150-450); RBC Distribution Width CV 12.5 % (11.6-14.6); RBC Distribution Width SD 43.2 fl (35.1-43.9); Red Blood Count 4.15 M/mm3 (4.6-6.2); White Blood Count 4.2 K/mm3 (4.4-11.0)
[2023-12-21 07:44] LABS: Anion Gap 5 (5-15); BUN 28 mg/dL (7-18); BUN/Creat Ratio 30.4 RATIO (10-20); Calcium,Total 8.9 mg/dL (8.5-10.1); Chloride 108 mmol/L (98-107); Creatinine, Serum 0.92 mg/dL (0.70-1.30); EST Glomerular Filtration Rate 84 mL/min (>60); Est Glom Filt Rate - Afr Amer 102 mL/min (>60); Glucose 86 mg/dL (74-106); Sodium Level 141 mmol/L (136-145)
== END ==
LOC: OLS.WHLEAS 05:00
PROVIDERS: PCP Internal Medicine; Visit Provider Internal Medicine
DX: N18.30 Chronic kidney disease, stage 3 unspecified (principal)
CPT/HCPCS: 36415; 80048; 85027

== ENCOUNTER → 2024-01-10 05:00 | Outpatient (REF) | payer MEDICARE, MEDICAID, SELFPAY ==
[2024-01-10 08:29] LABS: Anion Gap 4 (5-15); BUN 26 mg/dL (7-18); BUN/Creat Ratio 29.8 RATIO (10-20); Chloride 106 mmol/L (98-107); Creatinine, Serum 0.87 mg/dL (0.70-1.30); EST Glomerular Filtration Rate 90 mL/min (>60); Est Glom Filt Rate - Afr Amer 109 mL/min (>60); Glucose 86 mg/dL (74-106); Potassium 4.3 mmol/L (3.5-5.1); Sodium Level 141 mmol/L (136-145)
== END ==
LOC: OLS.WHLEAS 05:00
PROVIDERS: PCP Internal Medicine; Visit Provider Internal Medicine
DX: E34.9 Endocrine disorder, unspecified (principal)
CPT/HCPCS: 36415; 80048

== ENCOUNTER → 2024-01-25 05:00 | Outpatient (REF) | payer MEDICARE, MEDICAID, SELFPAY ==
[2024-01-25 07:06] LABS: Hemoglobin 12.6 g/dL (13.0-16.5); Mean Corp Hgb Conc 33.2 g/dL (32-36); Mean Corpuscular Hgb 31.9 pg (27.0-32.0); Mean Corpuscular Volume 96.2 fL (80-94); Mean Platelet Vol. 9.3 fl (6.2-12.0); Platelet Count 174 K/mm3 (150-450); RBC Distribution Width CV 12.7 % (11.6-14.6); RBC Distribution Width SD 45.4 fl (35.1-43.9); Red Blood Count 3.95 M/mm3 (4.6-6.2); White Blood Count 3.8 K/mm3 (4.4-11.0)
[2024-01-25 07:38] LABS: Anion Gap 6 (5-15); BUN 27 mg/dL (7-18); BUN/Creat Ratio 34.3 RATIO (10-20); Calcium,Total 8.8 mg/dL (8.5-10.1); Chloride 108 mmol/L (98-107); Cholesterol 156 mg/dL (200); Creatinine, Serum 0.79 mg/dL (0.70-1.30); EST Glomerular Filtration Rate 101 mL/min (>60); Est Glom Filt Rate - Afr Amer 122 mL/min (>60); Glucose 98 mg/dL (74-106); High Density Lipoprotein 48 mg/dL; Potassium 4.1 mmol/L (3.5-5.1); Sodium Level 141 mmol/L (136-145); T4 Free Direct 0.73 ng/dL (0.76-1.46); Triglycerides 75 mg/dL; Very Low Density Lipoprotein 15 mg/dL (5-40)
[2024-01-25 08:02] LABS: Hemoglobin A1c 5.2 % (3.8-5.6)
== END ==
LOC: OLS.WHLEAS 05:00
PROVIDERS: PCP Internal Medicine; Visit Provider Internal Medicine
DX: G20.A1 Parkinson's disease without dyskinesia, without mention of fluctuations (principal); N18.30 Chronic kidney disease, stage 3 unspecified
CPT/HCPCS: 36415; 80048; 80061; 83036; 84439; 84443; 85027

== ENCOUNTER → 2024-02-22 05:00 | Outpatient (REF) | payer MEDICARE, MEDICAID, SELFPAY ==
[2024-02-22 06:45] LABS: Hematocrit 37.5 % (40-54); Hemoglobin 12.5 g/dL (13.0-16.5); Mean Corp Hgb Conc 33.3 g/dL (32-36); Mean Corpuscular Hgb 31.7 pg (27.0-32.0); Mean Corpuscular Volume 95.2 fL (80-94); Mean Platelet Vol. 9.2 fl (6.2-12.0); Platelet Count 175 K/mm3 (150-450); RBC Distribution Width CV 12.6 % (11.6-14.6); RBC Distribution Width SD 43.8 fl (35.1-43.9); Red Blood Count 3.94 M/mm3 (4.6-6.2); White Blood Count 4.2 K/mm3 (4.4-11.0)
[2024-02-22 07:10] LABS: Anion Gap 6 (5-15); BUN 24 mg/dL (7-18); BUN/Creat Ratio 28.1 RATIO (10-20); Calcium,Total 8.8 mg/dL (8.5-10.1); Chloride 108 mmol/L (98-107); Creatinine, Serum 0.86 mg/dL (0.70-1.30); EST Glomerular Filtration Rate 92 mL/min (>60); Est Glom Filt Rate - Afr Amer 111 mL/min (>60); Glucose 87 mg/dL (74-106); Potassium 4.1 mmol/L (3.5-5.1); Sodium Level 142 mmol/L (136-145)
== END ==
LOC: OLS.WHLEAS 05:00
PROVIDERS: PCP Internal Medicine; Visit Provider Internal Medicine
DX: N18.30 Chronic kidney disease, stage 3 unspecified (principal)
CPT/HCPCS: 36415; 80048; 85027

== ENCOUNTER → 2024-03-21 | Outpatient (REF) | payer MEDICARE, MEDICAID, SELFPAY ==
[2024-03-21 07:14] LABS: Absolute Lymphocyte Count 1.19 X10^3/uL (0.83-4.51); Absolute Neutrophil Count 2.8 X10^3/uL (2.0-7.7); Basophil# 0.03 X10^3/uL; Basophil% 0.7 % (0-1); Eosinophil# 0.16 X10^3/uL; Eosinophils% 3.5 % (0-5); Hematocrit 42.1 % (40-54); Hemoglobin 14.3 g/dL (13.0-16.5); Lymphocyte # 1.19 X10^3/ul (0.83-4.51); Lymphocyte % 25.9 % (19-41); Mean Corpuscular Hgb 31.9 pg (27.0-32.0); Mean Platelet Vol. 9.3 fl (6.2-12.0); Monocyte# 0.43 X10^3/uL; Monocyte% 9.4 % (0-10); NRBC Flagged by Analyzer 0 % (0-5); Neutrophil # 2.77 X10^3/uL (2.7-7.7); Neutrophil % 60.3 % (47-70); Platelet Count 208 K/mm3 (150-450); RBC Distribution Width CV 12.6 % (11.6-14.6); RBC Distribution Width SD 43.6 fl (35.1-43.9); Red Blood Count 4.48 M/mm3 (4.6-6.2); White Blood Count 4.6 K/mm3 (4.4-11.0)
[2024-03-21 07:25] LABS: Anion Gap 3 (5-15); BUN 23 mg/dL (7-18); BUN/Creat Ratio 26.1 RATIO (10-20); Chloride 105 mmol/L (98-107); Creatinine, Serum 0.88 mg/dL (0.70-1.30); EST Glomerular Filtration Rate 89 mL/min (>60); Est Glom Filt Rate - Afr Amer 108 mL/min (>60); Glucose 97 mg/dL (74-106); Potassium 4.1 mmol/L (3.5-5.1); Sodium Level 139 mmol/L (136-145)
== END ==
LOC: OLS.WHLEAS 05:00
PROVIDERS: PCP Internal Medicine; Visit Provider Internal Medicine
DX: N18.30 Chronic kidney disease, stage 3 unspecified (principal)
CPT/HCPCS: 36415; 80048; 85025

== ENCOUNTER → 2024-04-25 | Outpatient (REF) | payer MEDICARE, MEDICAID, SELFPAY ==
[2024-04-25 06:22] LABS: Hemoglobin 12.8 g/dL (13.0-16.5); Mean Corp Hgb Conc 32.8 g/dL (32-36); Mean Corpuscular Hgb 31.4 pg (27.0-32.0); Mean Corpuscular Volume 95.8 fL (80-94); Mean Platelet Vol. 9.2 fl (6.2-12.0); Platelet Count 176 K/mm3 (150-450); RBC Distribution Width CV 12.8 % (11.6-14.6); Red Blood Count 4.07 M/mm3 (4.6-6.2); White Blood Count 4.2 K/mm3 (4.4-11.0)
[2024-04-25 06:38] LABS: Anion Gap 4 (5-15); BUN 28 mg/dL (7-18); BUN/Creat Ratio 28.1 RATIO (10-20); Chloride 104 mmol/L (98-107); EST Glomerular Filtration Rate 77 mL/min (>60); Est Glom Filt Rate - Afr Amer 93 mL/min (>60); Glucose 125 mg/dL (74-106); Potassium 3.9 mmol/L (3.5-5.1); Sodium Level 139 mmol/L (136-145)
== END ==
LOC: OLS.WHLEAS 05:00
PROVIDERS: PCP Internal Medicine; Visit Provider Internal Medicine
DX: N18.30 Chronic kidney disease, stage 3 unspecified (principal)
CPT/HCPCS: 36415; 80048; 85027

== ENCOUNTER → 2024-05-23 | Outpatient (REF) | payer MEDICARE, MEDICAID, SELFPAY ==
[2024-05-23 08:09] LABS: Hematocrit 40.6 % (40-54); Hemoglobin 13.4 g/dL (13.0-16.5); Mean Corpuscular Hgb 31.6 pg (27.0-32.0); Mean Corpuscular Volume 95.8 fL (80-94); Mean Platelet Vol. 9.3 fl (6.2-12.0); Platelet Count 181 K/mm3 (150-450); RBC Distribution Width CV 12.7 % (11.6-14.6); RBC Distribution Width SD 44.6 fl (35.1-43.9); Red Blood Count 4.24 M/mm3 (4.6-6.2); White Blood Count 4.7 K/mm3 (4.4-11.0)
[2024-05-23 08:11] LABS: Anion Gap 2 (5-15); BUN 26 mg/dL (7-18); BUN/Creat Ratio 27.9 RATIO (10-20); Calcium,Total 9.2 mg/dL (8.5-10.1); Chloride 105 mmol/L (98-107); Creatinine, Serum 0.93 mg/dL (0.70-1.30); EST Glomerular Filtration Rate 83 mL/min (>60); Est Glom Filt Rate - Afr Amer 101 mL/min (>60); Glucose 90 mg/dL (74-106); Potassium 4.4 mmol/L (3.5-5.1); Sodium Level 138 mmol/L (136-145)
== END ==
LOC: OLS.WHLEAS 05:10
PROVIDERS: PCP Internal Medicine; Visit Provider Internal Medicine
DX: N18.30 Chronic kidney disease, stage 3 unspecified (principal)
CPT/HCPCS: 36415; 80048; 85027

== ENCOUNTER → 2024-06-27 05:00 | Outpatient (REF) | payer MEDICARE, MEDICAID, SELFPAY ==
[2024-06-27 08:45] LABS: Hematocrit 37.5 % (40-54); Hemoglobin 12.7 g/dL (13.0-16.5); Mean Corp Hgb Conc 33.9 g/dL (32-36); Mean Corpuscular Hgb 32.1 pg (27.0-32.0); Mean Corpuscular Volume 94.7 fL (80-94); Mean Platelet Vol. 9.1 fl (6.2-12.0); Platelet Count 173 K/mm3 (150-450); RBC Distribution Width CV 12.6 % (11.6-14.6); RBC Distribution Width SD 43.9 fl (35.1-43.9); Red Blood Count 3.96 M/mm3 (4.6-6.2); White Blood Count 4.2 K/mm3 (4.4-11.0)
[2024-06-27 09:07] LABS: Anion Gap 6 (5-15); BUN 30 mg/dL (7-18); BUN/Creat Ratio 31.6 RATIO (10-20); Chloride 107 mmol/L (98-107); Creatinine, Serum 0.95 mg/dL (0.70-1.30); EST Glomerular Filtration Rate 81 mL/min (>60); Est Glom Filt Rate - Afr Amer 99 mL/min (>60); Glucose 88 mg/dL (74-106); Potassium 4.1 mmol/L (3.5-5.1); Sodium Level 141 mmol/L (136-145)
== END ==
LOC: OLS.WHLEAS 05:00
PROVIDERS: PCP Internal Medicine; Visit Provider Internal Medicine
DX: N18.30 Chronic kidney disease, stage 3 unspecified (principal)
CPT/HCPCS: 36415; 80048; 85027

== ENCOUNTER → 2024-07-25 | Outpatient (REF) | payer MEDICARE, MEDICAID, SELFPAY ==
[2024-07-25 07:17] LABS: Hematocrit 38.4 % (40-54); Hemoglobin 13.1 g/dL (13.0-16.5); Mean Corp Hgb Conc 34.1 g/dL (32-36); Mean Corpuscular Hgb 32.3 pg (27.0-32.0); Mean Corpuscular Volume 94.8 fL (80-94); Mean Platelet Vol. 9.1 fl (6.2-12.0); Platelet Count 174 K/mm3 (150-450); RBC Distribution Width CV 12.8 % (11.6-14.6); RBC Distribution Width SD 44.6 fl (35.1-43.9); Red Blood Count 4.05 M/mm3 (4.6-6.2); White Blood Count 4.5 K/mm3 (4.4-11.0)
[2024-07-25 08:34] LABS: Anion Gap 10 (5-15); BUN 26 mg/dL (4-19); BUN/Creat Ratio 28.4 RATIO (10-20); Calcium,Total 9.2 mg/dL (7.6-11.0); Carbon Dioxide 26.7 mmol/L (21.0-32.0); Chloride 105 mmol/L (98-108); Creatinine, Serum 0.92 mg/dL (0.70-1.20); EST Glomerular Filtration Rate 85 (>60); Glucose 93 mg/dL (70-99); Potassium 4.5 mmol/L (3.3-5.1); Sodium Level 141 mmol/L (133-145)
== END ==
LOC: OLS.WHLEAS 05:00
PROVIDERS: PCP Internal Medicine; Visit Provider Internal Medicine
DX: N18.30 Chronic kidney disease, stage 3 unspecified (principal)
CPT/HCPCS: 36415; 80048; 85027

== ENCOUNTER → 2024-08-22 | Outpatient (REF) | payer MEDICARE, MEDICAID, SELFPAY ==
[2024-08-22 08:02] LABS: Hematocrit 38.2 % (40-54); Mean Corpuscular Hgb 32.5 pg (27.0-32.0); Mean Corpuscular Volume 95.5 fL (80-94); Mean Platelet Vol. 8.9 fl (6.2-12.0); Platelet Count 169 K/mm3 (150-450); RBC Distribution Width CV 12.6 % (11.6-14.6); RBC Distribution Width SD 44.4 fl (35.1-43.9)
[2024-08-22 08:26] LABS: Anion Gap 10 (5-15); BUN 26 mg/dL (4-19); BUN/Creat Ratio 24.8 RATIO (10-20); Carbon Dioxide 26.8 mmol/L (21.0-32.0); Chloride 103 mmol/L (98-108); Creatinine, Serum 1.03 mg/dL (0.70-1.20); EST Glomerular Filtration Rate 74 (>60); Glucose 83 mg/dL (70-99); Potassium 4.5 mmol/L (3.3-5.1); Sodium Level 140 mmol/L (133-145)
== END ==
LOC: OLS.WHLEAS 05:00
PROVIDERS: PCP Internal Medicine; Visit Provider Nurse Practitioner Adult Health
DX: N18.30 Chronic kidney disease, stage 3 unspecified (principal)
CPT/HCPCS: 36415; 80048; 85027

== ENCOUNTER → 2024-09-19 | Outpatient (REF) | payer MEDICARE, MEDICAID, SELFPAY ==
[2024-09-19 07:39] LABS: Hematocrit 39.4 % (40-54); Hemoglobin 13.2 g/dL (13.0-16.5); Mean Corp Hgb Conc 33.5 g/dL (32-36); Mean Corpuscular Hgb 32.3 pg (27.0-32.0); Mean Corpuscular Volume 96.3 fL (80-94); Platelet Count 178 K/mm3 (150-450); RBC Distribution Width CV 12.7 % (11.6-14.6); RBC Distribution Width SD 44.8 fl (35.1-43.9); Red Blood Count 4.09 M/mm3 (4.6-6.2); White Blood Count 4.1 K/mm3 (4.4-11.0)
[2024-09-19 07:55] LABS: Anion Gap 9 (5-15); BUN 23 mg/dL (4-19); BUN/Creat Ratio 26.1 RATIO (10-20); Calcium,Total 9.1 mg/dL (7.6-11.0); Carbon Dioxide 28.7 mmol/L (21.0-32.0); Chloride 103 mmol/L (98-108); Creatinine, Serum 0.89 mg/dL (0.70-1.20); EST Glomerular Filtration Rate 87 (>60); Glucose 86 mg/dL (70-99); Potassium 4.6 mmol/L (3.3-5.1); Sodium Level 141 mmol/L (133-145)
== END ==
LOC: OLS.WHLEAS 05:00
PROVIDERS: PCP Internal Medicine; Visit Provider Internal Medicine
DX: N18.30 Chronic kidney disease, stage 3 unspecified (principal)
CPT/HCPCS: 36415; 80048; 85027

== ENCOUNTER → 2024-10-24 05:00 | Outpatient (REF) | payer MEDICARE, MEDICAID, SELFPAY ==
--- OUTSIDE RECORDS SUMMARY | 2024-10-24 04:24 | XMS RPT_ITS | CCD ---
Author Organization [facility] Care Team Providers Care Straw Baler Name Role Phone Isaac COLOR BLENDER, COLOR BLENDER-C Cecy Attending Provider Dr. Maikel Alfaro Primary Care Provider Tickashli COLOR BLENDER, COLOR BLENDER-C Cecy Attending Provider Dr. Guilherme Barrera Primary Care Provider Dr. Guilherme Butt Attending Provider [phone] Isaac COLOR BLENDER, COLOR BLENDER-C Cecy Attending Provider Dr. Guilherme Barrera Primary Care Provider [phone] Isaac COLOR BLENDER, COLOR BLENDER-C Cecy Attending Provider Dr. Guilherme Barrera Attending Provider [phone] Tickashli OLS, COLOR BLENDER-C Cecy Attending Provider [phone] Dr. Guilherme Butt Primary Care Provider [phone] Tickashli COLOR BLENDER, COLOR BLENDER-C Cecy Attending Provider Dr. Guilherme Barrera Primary Care Provider [phone] Tickashli COLOR BLENDER, COLOR BLENDER-C Cecy Attending Provider UnaLucita Rivera Attending Provider Unavailable Dr. Guilherme Butt Referring Provider [phone] Dr. Dwain Yen Attending Provider Dr. Guilherme Butt Primary Care Provider [phone] Dr. Mike Poe Attending Provider Dr. Dwain Yen Referring Provider Dr. Guilherme Butt Attending Provider [phone] Isaac COLOR BLENDER, COLOR BLENDER-C Cecy Attending Provider Unav Dr. Guilherme Kerr Primary Care Provider [phone] Dr. Guilherme Butt Referring Provider [phone] Dr. Ori Jones Attending Provider Dr. Guilherme Butt Primary Care Provider [phone] Dr. Guilherme Butt Attending Provider [phone] Dr. Ori Jones Referring Provider Dr. Ori Jones Other Provider BIRD Stewart Attending Provider Dr. Guilherme Butt Primary Care Provider [phone] Isaac COLOR BLENDER, COLOR BLENDER-C Cecy Attending Provider Unav Dr. Guilherme Kerr Referring Provider [phone] Dr. Ori Jones Attending Provider Dr. Guilherme Butt Attending Provider [phone] Dr. Ori Jones Referring Provider Dr. Ori Jones Other Provider BIRD Stewart Attending Provider Dr. Guilherme Butt Primary Care Provider [phone] Dr. Ori Jones Attending Provider Isaac COLOR BLENDER, COLOR BLENDER-C Cecy Attending Provider Dr. Guilherme Butt Referring Provider [phone] Dr. Guilherme Btut Attending Provider [phone] Dr. Guilherme Butt Primary Care Provider [phone] Isaac COLOR BLENDER, COLOR BLENDER-C Cecy Attending Provider Dr. Guilherme Butt Attending Provider [phone] Oleghe, Dr. Vanegas Primary Care Provider [phone] TANJA Painter Attending Provider [phone] Filomena LEVIN, Dr. Vanegas Primary Care Provider Guilherme Butt MD Attending Provider Daljit Butt MD, Dr. Vanegas Attending Provider [phone] Camilo Painter Attending Provider [phone] Filomena LEVIN, Dr. Vanegas Primary Care Provider Filomena LEVIN, Guilherme Attending Provider Unavailluis Gray COLOR BLENDER-CCecy Attending Provider [phone] Filomena LEVIN, Dr. Vanegas Primary Care Provider Guilherme Butt MD Attending Provider Unavailluis Butt MD, Dr. Vanegas Attending Provider [phone] Filomena LEVIN, Dr. Vanegas Referring Provider [phone] Farshad LEVIN, Dr. Prakash Attending Provider Oleghe, Efewongbe Primary Care Unavailable Tickton Cecy REYNA Attending Unavailable Oleghe, Efewongbe Primary Care Unavailable Oleghe, Efewongbe Attending Unavailable Oleghe, Efewongbe Attending Unavailable Oleghe, Efewongbe Primary Care Unavailable Oleghe, Efewongbe Primary Care Unavailable Camilo Painter Attending Unavailable Oleghe, Efewongbe Primary Care Unavailable Oleghe OLS, Efewongbe Attending Unavailabl e Oleghe OLS, Efewongbe Attending Unavailabl e Oleghe, Efewongbe Primary Care Unavailable Tickton JOSE GUADALUPE Cecy Attending Unavailable Oleghe, Efewongbe Primary Care Unavailable Tickton JOSE GUADALUPE Cecy Referring Unavailable Tickton OLS Cecy Attending Unavailable Oleghe, Efewongbe Primary Care Unavailable Oleghe OLS, Efewongbe Attending Unavailabl e Oleghe, Efewongbe Primary Care Unavailable Tickton OLS Cecy Attending Unavailable Oleghe, Efewongbe Primary Care Unavailable Oleghe OLS, Efewongbe Attending Unavailabl e Oleghe, Efewongbe Primary Care Unavailable Oleghe, Efewongbe Attending Unavailable Oleghe, Efewongbe Primary Care Unavailable Isaac COLOR BLENDERCecy Attending Unavailable Oleghe, Efewongbe Primary Care Unavailable Oleghe, Efewongbe Attending Unavailable Oleghe, Efewongbe Primary Care Unavailable Isaac COLOR BLENDERCecy Attending Unavailable Oleghe, Efewongbe Primary Care Unavailable Camilo Painter Attending Unavailable Oleghe, Efewongbe Primary Care Unavailable Oleghe, Efewongbe Referring Unavailable Dwain Yen Attending Unavailable Oleghe, Efewongbe Primary Care Unavailable Oleghe, Efewongbe Primary Care Unavailable Oleghe, Efewongbe Attending Unavailable Oleghe OLS, Efewongbe Attending Unavailabl e Oleghe, Efewongbe Primary Care Unavailable Oleghe OLS, Efewongbe Attending Unavailabl e Oleghe, Efewongbe Primary Care Unavailable Oleghe, Efewongbe Primary Care Unavailable Oleghe OLS, Efewongbe Attending Unavailabl e Oleghe, Efewongbe Primary Care Unavailable Oleghe OLS, Efewongbe Attending Unavailabl e Oleghe, Efewongbe Primary Care Unavailable Oleghe OLS, Efewongbe Attending Unavailabl e Oleghe OLS, Efewongbe Attending Unavailabl e Oleghe, Efewongbe Primary Care Unavailable Medications Current Medications Medication Drug Class(es) Dates Sig (Normalized) Sig (Original) acetaminophen 325 mg oral tablet (14 sources) Start: 09-04-2022 take 2 tablets by mouth three times daily Acetaminophen 325 mg tablet Active 650 mg PO THREE TIMES A DAY September 04, 2022 12:00am Start: 09-04-2022 take 650 mg by mouth three times daily Acetaminophen Active 650 MG PO THREE TIMES A DAY September 04, 2022 12:00am Alum-Mag Hydroxide-Simeth (Mylanta Maximum Strength) 400-400-40 mg/5 mL suspension (10 sources) Start: 09-04-2022 take 1 mL by mouth once daily as needed Alum-Mag Hydroxide-Simeth (Mylanta Maximum Strength) 400-400-40 mg/5 mL suspension Active 15 mL PO DAILY as needed for indigestion September 04, 2022 12:00am Start: 09-04-2022 take 1 mL by mouth o nce daily Alum-Mag Hydroxide-Simeth (Mylanta Maximum Strength) 400-400-40 mg/5 mL suspension Active 15 ML PO DAILY September 03, 2022 11:00pm Start: 09-04-2022 take 1 mL by mouth o nce daily Alum-Mag Hydroxide-Simeth (Mylanta Maximum Strength) 400-400-40 mg/5 mL suspension Active 15 ML PO DAILY September 04, 2022 12:00am aluminum hydroxide 80 mg/ml / magnesium hydroxide 80 mg/ml / simethicone 8 mg/ml oral suspension (4 sources) Start: 09-04-2022 take 1 mL by mouth once daily Alum-Mag Hydroxide-Simeth (Mylanta Maximum Strength) 400-400-40 mg/5 mL suspension Active 15 ML PO DAILY September 04, 2022 12:00am Alena, Bladder Health (20 sources) Start: 07-24-2016 take 1 tablet by mouth once daily Alena, Bladder Health Active 1 TABLET PO DAILY July 24, 2016 8:58am Start: 07-24-2016 End: 09-04-2022 Alena, Bladder Health Discontinued 1 {tbl} PO DAILY July 24, 2016 12:00am September 04, 2022 10:50am Start: 07-24-2016 End: 09-04-2022 take 1 tablet by mouth once daily Alena, Bladder Health Discontinued 1 TABLET PO DAILY July 23, 2016 11:00pm September 04, 2022 9:50am Start: 07-24-2016 End: 09-04-2022 take 1 tablet by mouth once daily Alena, Bladder Health Discontinued 1 TABLET PO DAILY July 24, 2016 12:00am September 04, 2022 10:50am Start: 07-24-2016 take 1 tablet by pavan th once daily Alena, Bladder Health Active 1 TABLET PO DAILY July 23, 2016 11:00pm Start: 07-24-2016 take 1 tablet by pavan th once daily Alena, Bladder Health Active 1 TABLET PO DAILY July 24, 2016 12:00am aspirin 81 mg delayed release oral tablet (20 sources) Platelet Aggregation Inhibitor, Nonsteroidal Anti-inflammatory Drug Start: 09-04-2022 End: 09-04-2022 Aspirin (Adult Low Dose Aspirin) 81 mg tablet,delayed release (DR/EC) Active 81 mg PO DAILY September 04, 2022 11:33am Start: 07-24-2016 End: 09-04-2022 take 1 tablet by mouth once daily Aspirin 325 MG tablet Discontinued 325 mg PO DAILY@0800 July 24, 2016 12:00am September 04, 2022 10:50am bisacodyl 10 mg rectal suppository (14 sources) Stimulant Laxative Start: 09-04-2022 Bisacodyl 1 0 mg suppository Active 10 mg RC DAILY as needed for constipation September 04, 2022 12:00am carbidopa 25 mg / levodopa 100 mg oral tablet (20 sources) Aromatic Amino Acid Decarboxylation Inhibitor, Aromatic Amino Acid Start: 01-11-2023 Carbidopa-Levodopa 25-100 mg tablet Active 1 {tbl} PO THREE TIMES A DAY January 11, 2023 12:00am Start: 01-11-2023 take 1 tablet by pavan three times daily Carbidopa-Levodopa Active 1 TABLET PO THREE TIMES A DAY January 11, 2023 12:00am Start: 09-04-2022 Carbidopa-Levo dopa 50-200 mg tablet extended release Active 1 {tbl} PO AT BEDTIME September 04, 2022 12:00am Start: 09-04-2022 take 1 tablet by pavan at bedtime Carbidopa-Levodopa Active 1 TABLET PO AT BEDTIME September 04, 2022 12:00am Chlorofresh (20 sources) Start: 07-24-2016 take 2 tablets by mo [facility] once daily Chlorofresh Active 2 TABLET PO DAILY July 24, 2016 8:58am Start: 07-24-2016 End: 09-04-2022 Chlorofresh Discontinued 2 { tbl} PO DAILY July 24, 2016 12:00am September 04, 2022 10:50am Start: 07-24-2016 End: 09-04-2022 take 2 tablets by mouth once daily Chlorofresh Discontinued 2 TABLET PO DAILY July 23, 2016 11:00pm September 04, 2022 9:50am Start: 07-24-2016 End: 09-04-2022 take 2 tablets by mouth once daily Chlorofresh Discontinued 2 TABLET PO DAILY July 24, 2016 12:00am September 04, 2022 10:50am Start: 07-24-2016 take 2 tablets by mo uth once daily Chlorofresh Active 2 TABLET PO DAILY July 23, 2016 11:00pm Start: 07-24-2016 take 2 tablets by [facility] once daily Chlorofresh Active 2 TABLET PO DAILY July 24, 2016 12:00am docusate sodium 50 mg / sennosides, assisted 8.6 mg oral tablet (14 sources) Start: 09-04-2022 Sennosides-Docusate Sodium (Senna-S) 8.6-50 mg tablet Active 1 NMA PO TWICE A DAY September 04, 2022 12:00am DULoxetine 60 mg delayed release oral capsule (14 sources) Serotonin and Norepinephrine Reuptake Inhibitor Start: 09-04-2022 take 1 capsule by mouth once daily Duloxetine 60 mg capsule,delayed release(DR/EC) Active 60 mg PO DAILY September 04, 2022 12:00am Efa, Essential Fatty Acid (20 sources) Start: 07-24-2016 take 1 capsule by mouth three times daily Efa, Essential Fatty Acid Active 1 CAP PO THREE TIMES A DAY July 24, 2016 8:58am Start: 07-24-2016 End: 09-04-2022 Efa, Essential Fatty Acid Discontinued 1 NMA PO THREE TIMES A DAY July 24, 2016 12:00am September 04, 2022 10:51am Start: 07-24-2016 End: 09-04-2022 take 1 capsule by mouth three times daily Efa, Essential Fatty Acid Discontinued 1 CAP PO THREE TIMES A DAY July 23, 2016 11:00pm September 04, 2022 9:51am Start: 07-24-2016 End: 09-04-2022 take 1 capsule by mouth three times daily Efa, Essential Fatty Acid Discontinued 1 CAP PO THREE TIMES A DAY July 24, 2016 12:00am September 04, 2022 10:51am Start: 07-24-2016 take 1 capsule by [facility] three times daily Efa, Essential Fatty Acid Active 1 CAP PO THREE TIMES A DAY July 23, 2016 11:00pm Start: 07-24-2016 take 1 capsule by [facility] three times daily Efa, Essential Fatty Acid Active 1 CAP PO THREE TIMES A DAY July 24, 2016 12:00am Glucosamine Daily Complex Tab (20 sources) Start: 07-24-2016 take 2 tablets by mouth twice daily Glucosamine Daily Complex Tab Active 2 TABLET PO TWICE A DAY July 24, 2016 8:58am Start: 07-24-2016 End: 09-04-2022 Glucosamine Daily Complex Ta b Discontinued 2 {tbl} PO TWICE A DAY July 24, 2016 12:00am September 04, 2022 10:51am Start: 07-24-2016 End: 09-04-2022 take 2 tablets by mouth twice daily Glucosamine Daily Complex Tab Discontinued 2 TABLET PO TWICE A DAY July 23, 2016 11:00pm September 04, 2022 9:51am Start: 07-24-2016 End: 09-04-2022 take 2 tablets by mouth twice daily Glucosamine Daily Complex Tab Discontinued 2 TABLET PO TWICE A DAY July 24, 2016 12:00am September 04, 2022 10:51am Start: 07-24-2016 take 2 tablets by mo uth twice daily Glucosamine Daily Complex Tab Active 2 TABLET PO TWICE A DAY July 23, 2016 11:00pm Start: 07-24-2016 take 2 tablets by mo uth twice daily Glucosamine Daily Complex Tab Active 2 TABLET PO TWICE A DAY July 24, 2016 12:00am Lactobacillus Combination No.4 (Probiotic) 1 EACH capsule (20 sources) Start: 07-24-2016 take 1 capsule by mouth twice daily Lactobacillus Combination No.4 (Probiotic) 1 EACH capsule Active 2 EACH PO TWICE A DAY July 24, 2016 8:58am Start: 07-24-2016 End: 09-04-2022 take 1 capsule by mouth twice daily Lactobacillus Combination No.4 (Probiotic) 1 EACH capsule Discontinued 2 NMA PO TWICE A DAY July 24, 2016 12:00am September 04, 2022 10:51am Start: 07-24-2016 End: 09-04-2022 take 1 capsule by mouth twice daily Lactobacillus Combination No.4 (Probiotic) 1 EACH capsule Discontinued 2 EACH PO TWICE A DAY July 23, 2016 11:00pm September 04, 2022 9:51am Start: 07-24-2016 End: 09-04-2022 take 1 capsule by mouth twice daily Lactobacillus Combination No.4 (Probiotic) 1 EACH capsule Discontinued 2 EACH PO TWICE A DAY July 24, 2016 12:00am September 04, 2022 10:51am Start: 07-24-2016 take 1 capsule by mo uth twice daily Lactobacillus Combination No.4 (Probiotic) 1 EACH capsule Active 2 EACH PO TWICE A DAY July 23, 2016 11:00pm Start: 07-24-2016 take 1 capsule by [facility] twice daily Lactobacillus Combination No.4 (Probiotic) 1 EACH capsule Active 2 EACH PO TWICE A DAY July 24, 2016 12:00am Magnesium Hydroxide (14 sources) Start: 09-04-2022 take 1 mL by mouth once daily as needed Magnesium Hydroxide (Milk Of Magnesia) 400 mg/5 mL suspension Active 30 mL PO DAILY as needed for stomach upset September 04, 2022 12:00am Start: 09-04-2022 take 1 mL by mouth once daily Magnesium Hydroxide (Milk Of Magnesia) 400 mg/5 mL suspension Active 30 ML PO DAILY September 03, 2022 11:00pm Start: 09-04-2022 take 1 mL by mouth once daily Magnesium Hydroxide (Milk Of Magnesia) 400 mg/5 mL suspension Active 30 ML PO DAILY September 04, 2022 12:00am melatonin 10 mg oral tablet (14 sources) Start: 09-04-2022 take 1 tablet by mouth at bedtime Melatonin 10 mg tablet Active 10 mg PO BEDTIME September 04, 2022 12:00am 24 hr mirabegron 25 mg extended release oral tablet (14 sources) beta3-Adrenergi c Agonist Start: 09-04-2022 take 1 tablet by mouth once daily Mirabegron (Myrbetriq) 25 mg tablet extended release 24 hr Active 25 mg PO DAILY September 04, 2022 12:00am [place] Extract (20 sources) Start: 07-24-2016 [place] Ext ract Active 5 DRP PO DAILY July 24, 2016 8:58am Start: 07-24-2016 End: 09-04-2022 [place] Extract Discontin ued 5 NMA PO DAILY July 24, 2016 12:00am September 04, 2022 10:51am Start: 07-24-2016 End: 09-04-2022 [place] Extract Discontin ued 5 DRP PO DAILY July 23, 2016 11:00pm September 04, 2022 9:51am Start: 07-24-2016 End: 09-04-2022 [place] Extract Discontin ued 5 DRP PO DAILY July 24, 2016 12:00am September 04, 2022 10:51am Start: 07-24-2016 [place] Ext ract Active 5 DRP PO DAILY July 23, 2016 11:00pm Start: 07-24-2016 [place] Ext ract Active 5 DRP PO DAILY July 24, 2016 12:00am pimavanserin 34 mg oral capsule (2 sources) Atypical Antipsychotic Start: 10-08-2024 take 1 capsule by mouth once daily Pimavanserin (Nuplazid) 34 mg capsule Active 34 mg PO daily October 08, 2024 12:00am polyethylene glycol 3350 97565 mg powder for oral solution (14 sources) Osmotic Laxative Start: 09-04-2022 Polyethylene Glycol 3350 (Miralax) 17 gram powder in packet Active 17 g PO DAILY September 04, 2022 12:00am QUEtiapine 100 mg oral tablet (20 sources) Atypical Antipsychotic Start: 09-04-2022 take 1 tablet by mouth at bedtime Quetiapine 100 mg tablet Active 100 mg PO AT BEDTIME September 04, 2022 12:00am Start: 09-04-2022 take 1 tablet by pavan th once daily Quetiapine 50 mg tablet Active 50 mg PO DAILY September 04, 2022 12:00am rivastigmine 4.5 mg oral capsule (14 sources) Start: 09-04-2022 take 6 mg by mouth twice daily Rivastigmine Tartrate 4.5 mg capsule Active 6 mg PO TWICE A DAY September 04, 2022 12:00am Start: 09-04-2022 take 6 mg by mouth twice daily Rivastigmine Tartrate Active 6 MG PO TWICE A DAY September 04, 2022 12:00am Start: 09-04-2022 take 4.5 mg by mouth twice daily Rivastigmine Tartrate Active 4.5 MG PO TWICE A DAY September 04, 2022 12:00am Helper Drink (20 sources) Start: 07-24-2016 Helper Drin k Active 1 PACKET PO DAILY July 24, 2016 8:58am Start: 07-24-2016 End: 09-04-2022 Helper Drink Discontinued 1 NMA PO DAILY July 24, 2016 12:00am September 04, 2022 10:51am Start: 07-24-2016 End: 09-04-2022 Helper Drink Discontinued 1 PACKET PO DAILY July 23, 2016 11:00pm September 04, 2022 9:51am Start: 07-24-2016 End: 09-04-2022 Francisco Drink Discontinued 1 PACKET PO DAILY July 24, 2016 12:00am September 04, 2022 10:51am Start: 07-24-2016 Francisco Drin k Active 1 PACKET PO DAILY July 23, 2016 11:00pm Start: 07-24-2016 Francisco Drin k Active 1 PACKET PO DAILY July 24, 2016 12:00am Tumeric/Carcumin (20 sources) Start: 07-24-2016 take 1 tablet by mouth once daily Tumeric/Carcumin Active 1 TABLET PO DAILY July 24, 2016 8:58am Start: 07-24-2016 End: 09-04-2022 Tumeric/Carcumin Discontinue d 1 {tbl} PO DAILY July 24, 2016 12:00am September 04, 2022 10:51am Start: 07-24-2016 End: 09-04-2022 take 1 tablet by mouth once daily Tumeric/Carcumin Discontinued 1 TABLET PO DAILY July 23, 2016 11:00pm September 04, 2022 9:51am Start: 07-24-2016 End: 09-04-2022 take 1 tablet by mouth once daily Tumeric/Carcumin Discontinued 1 TABLET PO DAILY July 24, 2016 12:00am September 04, 2022 10:51am Start: 07-24-2016 take 1 tablet by pavan th once daily Tumeric/Carcumin Active 1 TABLET PO DAILY July 23, 2016 11:00pm Start: 07-24-2016 take 1 tablet by pavan th once daily Tumeric/Carcumin Active 1 TABLET PO DAILY July 24, 2016 12:00am Vital 3-For Joints (20 sources) Start: 07-24-2016 Vital 3-For Liz ints Active 3 DRP PO DAILY July 24, 2016 8:58am Start: 07-24-2016 End: 09-04-2022 Vital 3-For Joints Discontin ued 3 NMA PO DAILY July 24, 2016 12:00am September 04, 2022 10:52am Start: 07-24-2016 End: 09-04-2022 Vital 3-For Joints Discontin ued 3 DRP PO DAILY July 23, 2016 11:00pm September 04, 2022 9:52am Start: 07-24-2016 End: 09-04-2022 Vital 3-For Joints Discontin ued 3 DRP PO DAILY July 24, 2016 12:00am September 04, 2022 10:52am Start: 07-24-2016 Vital 3-For Liz ints Active 3 DRP PO DAILY July 23, 2016 11:00pm Start: 07-24-2016 Vital 3-For Liz ints Active 3 DRP PO DAILY July 24, 2016 12:00am Completed/Discontinued Medications Medication Drug Class(es) Dates Sig (Normalized) Sig (Original) acetaminophen 325 mg / HYDROcodone bitartrate 5 mg oral tablet (20 sources) Opioid Agonist Start: 07-28-2016 End: 09-04-2022 Hydrocodone-Acetami nophen 1 TABLET tablet Discontinued 1 {tbl} PO EVERY 4 HOURS NEEDED as needed for Pain July 28, 2016 12:00am September 04, 2022 10:51am Start: 07-28-2016 End: 09-04-2022 take 1 tablet by mouth every four hours as needed Hydrocodone-Acetaminophen Discontinued 1 TABLET PO EVERY 4 HOURS NEEDED July 28, 2016 12:00am September 04, 2022 10:51am astaxanthin 4 mg oral capsule (20 sources) Start: 07-24-2016 End: 09-04-2022 take 1 capsule by mouth once daily Astaxanthin 4 MG capsule Discontinued 4 mg PO DAILY July 24, 2016 12:00am September 04, 2022 10:50am calcium carbonate 1250 mg oral tablet (20 sources) Start: 07-24-2016 End: 09-04-2022 take 1 tablet by mouth once daily Calcium Carbonate 500 MG tablet Discontinued 500 mg PO DAILY July 24, 2016 12:00am September 04, 2022 10:50am cholecalciferol 0.125 mg oral capsule (20 sources) Vitamin D Start: 07-24-2016 End: 09-04-2022 take 1 capsule by mouth once daily Cholecalciferol (Vitamin D3) (Vitamin D3) 5,000 UNIT capsule Discontinued 5000 U PO DAILY July 24, 2016 12:00am September 04, 2022 10:50am ciprofloxacin 500 mg oral tablet (20 sources) Quinolone Antimicrobial Start: 07-28-2016 End: 09-04-2022 take 1 tablet by mouth twice daily Ciprofloxacin Hcl 500 MG tablet Discontinued 500 mg PO TWICE A DAY July 28, 2016 12:00am September 04, 2022 10:51am finasteride 5 mg oral tablet (20 sources) 5-alpha Reductase Inhibitor Start: 07-24-2016 End: 09-04-2022 take 1 tablet by mouth once daily Finasteride 5 MG tablet Discontinued 5 mg PO DAILY July 24, 2016 12:00am September 04, 2022 10:51am 24 hr metoprolol succinate 25 mg extended release oral tablet (20 sources) beta-Adrenergic Sandro Start: 07-24-2016 End: 09-04-2022 take 1 tablet by mouth once daily Metoprolol Succinate 25 MG tablet Discontinued 25 mg PO DAILY July 24, 2016 12:00am September 04, 2022 11:30am red yeast rice 600 mg oral capsule (20 sources) Start: 07-24-2016 End: 09-04-2022 take 1 capsule by mouth once daily Red Yeast Rice 600 MG capsule Discontinued 600 mg PO DAILY July 24, 2016 12:00am September 04, 2022 10:51am tamsulosin hydrochloride 0.4 mg oral capsule (20 sources) alpha-Adrenergic Sandro Start: 07-24-2016 End: 09-04-2022 take 1 capsule by mouth once daily Tamsulosin 0.4 MG capsule Discontinued 0.4 mg PO DAILY July 24, 2016 12:00am September 04, 2022 10:51am Problems Active Problems Problem Classification Problem Date Documented Da te Episodic/Chronic Abdominal hernia (16 sources) Left inguinal hernia ; Translations: [Unilateral inguinal hernia, without obstruction or gangrene, not specified as recurrent] 01-11-2023 Episodic Cardiac dysrhythmias (20 sources) Cardiac arrhythmia; Translations: [Cardiac arrhythmia, unspecified] Onset: 10-08-2024 05-21-2013 Chronic Chronic kidney disease (14 sources) Chronic kidney disease stage 3; Translations: [Stage 3 chronic kidney disease] 08-23-2022 Chronic Chronic kidney disease (2 sources) Chronic kidney disease; Translations: [Chronic kidney disease, stage 3 unspecified] Onset: 07-05-2024 Delirium, dementia, and amnestic and other cognitive disorders (20 sources) Dementia; Translations: [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] Onset: 06-13-2024 10-11-2021 Chronic E Codes: Fall (17 sources) Fall; Translations: [Unspecified fall, initial encounter] 08-02-2022 Episodic Essential hypertension (16 sources) Essential hypertension; Translations: [Essential (primary) hypertension] 09-04-2022 Chronic Heart valve disorders (19 sources) History of aortic valve replacement; Translations: [Presence of xenogenic heart valve] Onset: 11-11-2005 08-23-2022 Chronic Comment on above: 27mm Medtronic mosai c porcine bioprosthesis- resection of aneurysm of ascending aorta and replacement of a hemisheild graft @ [facility] 11/21/05 Nonspecific chest pain (16 sources) Chest pain; Translations: [Chest pain, unspecified] 09-04-2022 Episodic Osteoarthritis (20 sources) Chronic osteoarthritis; Translations: [Unspecified osteoarthritis, unspecified site] 05-21-2013 Chronic Other circulatory disease (14 sources) H/O: major vascular surgery; Translations: [Presence of other vascular implants and grafts] Onset: 11-11-2005 08-23-2022 Chronic Comment on above: resection of aneurys m of ascending aorta and replacement of a hemisheild graft @ [facility] 11/21/05 Other nervous system disorders (17 sources) H/O: brain disorder; Translations: [Personal history of other diseases of the nervous system and sense organs] 08-02-2022 Episodic Parkinson`s disease (20 sources) Parkinson's disease; Translations: [Parkinson's disease] Onset: 10-08-2024 04-11-2022 Chronic Edith-; endo-; and myocarditis; cardiomyopathy (except that caused by tuberculosis or sexually transmitted disease) (20 sources) Heart valve disorder; Translations: [Endocarditis, valve unspecified] 05-21-2013 Chronic Syncope (20 sources) Near syncope; Translations: [Syncope and collapse] 04-11-2022 Episodic Unclassified (1 source) Chronic atrial fibrillation, unspecified; Translations: [Chronic atrial fibrillation, unspecified] Onset: 06-13-2024 Unclassified (1 source) Parkinsonism, unspecified; Translations: [Parkinsonism, unspecified] Onset: 02-18-2024 Past or Other Problems Problem Classification Problem Date Documented Da te Episodic/Chronic Other endocrine disorders (1 source) Endocrine disorder, unspecified; Translations: [Endocrine disorder, unspecified] Onset: 02-18-2024 Episodic Results Test Name Value Interpretation Reference Range Facility Cardiology Visit Reporton Cardiology Visit Report [facility] [address] [place], [place] [address] OFFICE VISIT Date of Service: 10/08/24 MR#: [id number] Acct: [id number] Name: IGOR CRUZ Rep #: [id number] : 1945 Provider: Dr. Dwain Yen MD Age/Sex: 79/M [place] [facility] [place] Signed HPI HPI History of Present Illness Details: This gentleman with history of paroxysmal atrial fibrillation, not a candidate for anticoagulation on account of frequent falls, aortic valve disease status post replacement with a bioprosthetic valve in 2005 and Parkinson's disease is here for follow-up visit. Denies any complaints. Denies chest pains. No shortness of breath. No palpitations. No orthopnea or PND. Occasional ankle edema. Intake Vital Signs 03/12/23 13:59 10/08/24 14:25 Height 5 ft 11 in 5 ft 11 in Weight: 185 lb BMI 25.7 BP 96/66 Blood Pressure Location Lt brachial Position Sitting Respiration 18 Pulse 80 Pulse Source NIBP Intake Visit Reasons: OVER DUE FU Mandrel Puller Required: No Accompanied by: Self Is patient in pain?: No Allergies No Known Allergies Allergy (Verified 10/08/24 14:27) Medications ???Medication ???Instructions ???Recorded ???Confirmed ???Type acetaminophen 325 mg tablet 650 mg PO TID 09/04/22 10/08/24 Hi story aluminum-mag hydroxide-simethico ne 15 ml PO DAILY PRN indigestion 0 09/04/22 10/08/24 History 400 mg-400 mg-40 mg/5 mL oral susp (Mylanta Maximum Strength) aspirin 81 mg tablet,delayed 81 mg PO DAILY #30 tabs 09/04/22 0 10/08/24 Rx release (Adult Low Dose Aspirin) bisacodyl 10 mg rectal suppository 10 mg MD DAILY PRN constipation 09/04/22 10/08/24 History carbidopa ER 50 mg-levodopa 200 mg 1 tab PO QHS 09/04/22 10/08/24 H istory tablet,extended release duloxetine 60 mg capsule,delayed 60 mg PO DAILY 09/04/22 10/08/24 H istory release magnesium hydroxide 400 mg/5 mL 30 ml PO DAILY PRN stomach upset 0 09/04/22 10/08/24 History oral suspension (Milk of Magnesia) melatonin 10 mg tablet 10 mg PO HS 09/04/22 10/08/24 Hist ory mirabegron 25 mg tablet,extended 25 mg PO DAILY 09/04/22 10/08/24 H istory release 24 hr (Myrbetriq) polyethylene glycol 3350 17 gram 17 g PO DAILY 09/04/22 10/08/24 Hi story oral powder packet (Miralax) quetiapine 100 mg tablet 100 mg PO QHS 09/04/22 10/08/24 Hi story quetiapine 50 mg tablet 50 mg PO DAILY 09/04/22 10/08/24 H istory rivastigmine tartrate 4.5 mg 6 mg PO BID 09/04/22 09/30/24 Hist ory capsule sennosides 8.6 mg-docusate sodium 1 tab-cap PO BID 09/04/22 5 History 50 mg tablet (Senna-S) carbidopa 25 mg-levodopa 100 mg 1 tab PO TID 01/11/23 10/08/24 His tory tablet pimavanserin 34 mg capsule 34 mg PO QDAY 10/08/24 10/08/24 Hi story (Nuplazid) Ejection fraction %: 55 Have you fallen in the past year?: No PFSH Medical History Anxiety Atrial fibrillation Back pain Benign prostate hyperplasia Cardiac arrhythmia Cardiology follow-up encounter Chronic osteoarthritis CKD (chronic kidney disease) stage 3, GFR 30-59 ml/min Dementia Depression Endocarditis Essential hypertension Hallucination History of echocardiogram History of edema History of stress test Hypertension Kidney disease Lives in senior care Parkinson disease Parkinson's disease Syncope Valvular heart disease Walker as ambulation aid Surgical History History of aortic valve replacement with bioprosthetic valve ( 11/21/05) History of ascending aortic replacement ( 11/21/05) History of back surgery History of bunionectomy of right great toe History of foot surgery History of hip replacement History of robot-assisted repair of left inguinal hernia ( 02/2023) Hx of cystoscopy Family History Mother Cancer Stomach Father Cancer Prostate COPD (chronic obstructive pulmonary disease) Social History Smoking Status: Former smoker alcohol intake: never substance use type: does not use caffeine: No ROS Const Const: Negative for fatigue, weakness, headache(s) or weight gain ENT ENT: Positive for balance problems; Negative for headache(s), dizziness or Nosebleed/epistaxis Cardio Chest Pain: No Palpitations: No Edema: None Muscle aches with walking: None Resp Respiratory: Negative for SOB with activity, SOB at rest or SOB orthopnea SOB lying down GI GI: Negative nausea, vomiting or heartburn Musc Musc: Positive for joint pain (chronic lower back pain) and balance problems; Negative for muscle aches/ myalgia or muscle weakness Neuro Neuro: Neg (more content not included)... Normal [facility] Anion gap in Serum or Plasma Ordered By: Guilherme Butt on 09-19-2024 Anion gap [Moles/Vol] 9 mmol/L 5-15 [facility] BUN/creatinine ratioOrdered By: Guilherme Butt on 09-19-2024 Urea nitrogen/Creatinine [Mass ratio] 26.1 mg/mg High 10-20 [facility] Carbon dioxide, total [Moles /volume] in Central venous bloodOrdered By: Guilherme Butt on 09-19-2024 CO2 [Moles/Vol] 28.7 mmol/L 21.0-32.0 [facility] Chloride assayOrdered By: Roselia Butt on 09-19-2024 Chloride [Moles/Vol] 103 mmol/L 98-108 [facility] Erythrocyte distribution wid th ratioOrdered By: Guilherme Butt on 09-19-2024 Erythrocyte distribution width (RBC) [Ratio] 12.7 % 11.6-14.6 [facility] Erythrocyte distribution wid th standard deviationOrdered By: Guilherme Butt on 09-19-2024 Erythrocyte distribution width (RBC) [Ratio] 44.8 fl High 35.1-43.9 [facility] Glomerular filtration rate ( GFR) estimation/1.73 sq m using serum, plasma, or whole bOrdered By: Guilherme Butt on 09-19-2024 GFR/1.73 sq M.predicted among non-blacks MDRD (S/P/Bld) [Vol rate/Area] 87 mL/min/{1.73_m2} >60 [facility] Comment on above: mL/min/1.73m2 CKD-EP I Creatinine Equation (2020) Hematocrit Auto (Bld) [Volum e fraction]Ordered By: Guilherme Butt on 09-19-2024 Hematocrit (Bld) [Volume fraction] 39.4 % Low 40-54 [facility] Hemoglobin measurementOrdere d By: Guilherme Butt on 09-19-2024 Hemoglobin (Bld) [Mass/Vol] 13.2 g/dL 13.0-16.5 [facility] MCV (mean corpuscular volume ) determinationOrdered By: Guilherme Butt on 09-19-2024 MCV (RBC) [Entitic vol] 96.3 fL High 80-94 [facility] Mean corpuscular hemoglobin (MCH) determinationOrdered By: Guilherme Butt on 09-19-2024 MCH (RBC) [Entitic mass] 32.3 pg High 27.0-32.0 [facility] Mean corpuscular hemoglobin concentration (MCHC) determinationOrdered By: Guilherme Butt on 09-19-2024 MCHC (RBC) [Mass/Vol] 33.5 g/dL 32-36 [facility] Mean platelet volume determi nationOrdered By: Guilherme Butt on 09-19-2024 Platelet mean volume (Bld) [Entitic vol] 9.0 fL 6.2-12.0 [facility] Platelet countOrdered By: Roselia Butt on 09-19-2024 Platelets (Bld) [#/Vol] 178 10*3/uL 150-450 [facility] Potassium measurement (mass/ volume)Ordered By: Guilherme Butt on 09-19-2024 Potassium (Unsp spec) [Mass/Vol] 4.6 mmol/L 3.3-5.1 [facility] RBC Auto (Bld) [#/Vol]Ordere d By: Guilherme Butt on 09-19-2024 RBC (Bld) [#/Vol] 4.09 10*6/uL Low 4.6-6.2 [facility] Serum creatinine measurement (mass/volume)Ordered By: Guilherme Butt on 09-19-2024 Creatinine [Mass/Vol] 0.89 mg/dL 0.70-1.20 [facility] Serum glucose measurement (m ass/volume)Ordered By: Guilherme Butt on 09-19-2024 Glucose [Mass/Vol] 86 mg/dL 70-[address] [facility] Serum or plasma calcium farshad urement (mass/volume)Ordered By: Guilherme Butt on 09-19-2024 Calcium [Mass/Vol] 9.1 mg/dL 7.6-11.[address] [facility] Serum or plasma urea nitroge n measurement (mass/volume)Ordered By: Guilherme Butt on 09-19-2024 Urea nitrogen [Mass/Vol] 23 mg/dL High 4-19 [facility] Sodium levelOrdered By: Kelly yeebenjyjessenia Butt on 09-19-2024 Sodium [Moles/Vol] 141 mmol/L 133-[address] [facility] White blood cell (WBC) count Ordered By: Guilherme Butt on 09-19-2024 WBC (Bld) [#/Vol] 4.1 10*3/uL Low 4.4-11.[address] [facility] Anion gap in Serum or Plasma Ordered By: Cecy Gray on 08-22-2024 Anion gap [Moles/Vol] 10 mmol/L 5-15 [facility] BUN/creatinine ratioOrdered By: Cecy Gray on 08-22-2024 Urea nitrogen/Creatinine [Mass ratio] 24.8 mg/mg High 10-20 [facility] Carbon dioxide, total [Moles /volume] in Central venous bloodOrdered By: Cecy Gray on 08-22-2024 CO2 [Moles/Vol] 26.8 mmol/L 21.0-32.0 [facility] Chloride assayOrdered By: Roderick Gray on 08-22-2024 Chloride [Moles/Vol] 103 mmol/L 98-108 [facility] Erythrocyte distribution wid th ratioOrdered By: Cecy Gray on 08-22-2024 Erythrocyte distribution width (RBC) [Ratio] 12.6 % 11.6-14.6 [facility] Erythrocyte distribution wid th standard deviationOrdered By: Cecy Gray on 08-22-2024 Erythrocyte distribution width (RBC) [Ratio] 44.4 fl High 35.1-43.9 [facility] Glomerular filtration rate ( GFR) estimation/1.73 sq m using serum, plasma, or whole bOrdered By: Cecy Gray on 08-22-2024 GFR/1.73 sq M.predicted among non-blacks MDRD (S/P/Bld) [Vol rate/Area] 74 mL/min/{1.73_m2} >60 [facility] Comment on above: mL/min/1.73m2 CKD-EP I Creatinine Equation (2020) Hematocrit Auto (Bld) [Volum e fraction]Ordered By: Cecy Gray on 08-22-2024 Hematocrit (Bld) [Volume fraction] 38.2 % Low 40-54 [facility] Hemoglobin measurementOrdere d By: Cecy Gray on 08-22-2024 Hemoglobin (Bld) [Mass/Vol] 13.0 g/dL 13.0-16.5 [facility] MCV (mean corpuscular volume ) determinationOrdered By: Cecy Gray 08-22-2024 MCV (RBC) [Entitic vol] 95.5 fL High 80-94 [facility] Mean corpuscular hemoglobin (MCH) determinationOrdered By: Cecy Gray 08-22-2024 MCH (RBC) [Entitic mass] 32.5 pg High 27.0-32.0 [facility] Mean corpuscular hemoglobin concentration (MCHC) determinationOrdered By: Cecy Gray 08-22-2024 MCHC (RBC) [Mass/Vol] 34.0 g/dL 32-36 [facility] Mean platelet volume determi nationOrdered By: Cecy Gray 08-22-2024 Platelet mean volume (Bld) [Entitic vol] 8.9 fL 6.2-12.0 [facility] Platelet countOrdered By: Roderick Gray on 08-22-2024 Platelets (Bld) [#/Vol] 169 10*3/uL 150-450 [facility] Potassium measurement (mass/ volume)Ordered By: Cecy Gray on 08-22-2024 Potassium (Unsp spec) [Mass/Vol] 4.5 mmol/L 3.3-5.1 [facility] RBC Auto (Bld) [#/Vol]Ordere d By: Cecy Gray on 08-22-2024 RBC (Bld) [#/Vol] 4.00 10*6/uL Low 4.6-6.2 [facility] Serum creatinine measurement (mass/volume)Ordered By: Cecy Gray on 08-22-2024 Creatinine [Mass/Vol] 1.03 mg/dL 0.70-1.20 [facility] Serum glucose measurement (m ass/volume)Ordered By: Cecy Gray on 08-22-2024 Glucose [Mass/Vol] 83 mg/dL 70-[address] [facility] Serum or plasma calcium farshad urement (mass/volume)Ordered By: Cecy Gray on 08-22-2024 Calcium [Mass/Vol] 9.0 mg/dL 7.6-11.[address] [facility] Serum or plasma urea nitroge n measurement (mass/volume)Ordered By: Cecy Gray on 08-22-2024 Urea nitrogen [Mass/Vol] 26 mg/dL High 4-19 [facility] Sodium levelOrdered By: Mayi Gray on 08-22-2024 Sodium [Moles/Vol] 140 mmol/L 133-[address] [facility] White blood cell (WBC) count Ordered By: Cecy Gray on 08-22-2024 WBC (Bld) [#/Vol] 4.0 10*3/uL Low 4.4-11.[address] [facility] Anion gap in Serum or Plasma Ordered By: Guilherme Butt on 07-25-2024 Anion gap [Moles/Vol] 10 mmol/L 5-15 [facility] BUN/creatinine ratioOrdered By: Guilherme Butt on 07-25-2024 Urea nitrogen/Creatinine [Mass ratio] 28.4 mg/mg High 10-20 [facility] Carbon dioxide, total [Moles /volume] in Central venous bloodOrdered By: Guilherme Butt on 07-25-2024 CO2 [Moles/Vol] 26.7 mmol/L 21.0-32.0 [facility] Chloride assayOrdered By: Roselia Butt on 07-25-2024 Chloride [Moles/Vol] 105 mmol/L 98-108 [facility] Erythrocyte distribution wid th (RBC) [Ratio]Ordered By: Guilherme Butt on 07-25-2024 Erythrocyte distribution width (RBC) [Entitic vol] 44.6 fL High 35.1-43.9 [facility] Erythrocyte distribution wid th ratioOrdered By: Guilherme Butt on 07-25-2024 Erythrocyte distribution width (RBC) [Ratio] 12.8 % 11.6-14.6 [facility] Erythrocyte distribution wid th standard deviationOrdered By: Guilherme Butt on 07-25-2024 Erythrocyte distribution width (RBC) [Ratio] 44.6 fl High 35.1-43.9 [facility] GFR/1.73 sq M.predicted jane g non-blacks MDRD (S/P/Bld) [Vol rate/Area]Ordered By: Guilherme Butt on 07-25-2024 Estimated GFR (MDRD) Non-Af Amer 85 >60 [facility] Comment on above: mL/min/1.73m2 CKD-EP I Creatinine Equation (2020) Glomerular filtration rate ( GFR) estimation/1.73 sq m using serum, plasma, or whole bOrdered By: Guilherme Butt on 07-25-2024 GFR/1.73 sq M.predicted among non-blacks MDRD (S/P/Bld) [Vol rate/Area] 85 mL/min/{1.73_m2} >60 [facility] Comment on above: mL/min/1.73m2 CKD-EP I Creatinine Equation (2020) Hematocrit Auto (Bld) [Volum e fraction]Ordered By: Guilherme Butt on 07-25-2024 Hematocrit (Bld) [Volume fraction] 38.4 % Low 40-54 [facility] Hemoglobin measurementOrdere d By: Guilherme Butt on 07-25-2024 Hemoglobin (Bld) [Mass/Vol] 13.1 g/dL 13.0-16.5 [facility] MCV (mean corpuscular volume ) determinationOrdered By: Guilherme Butt on 07-25-2024 MCV (RBC) [Entitic vol] 94.8 fL High 80-94 [facility] Mean corpuscular hemoglobin (MCH) determinationOrdered By: Guilherme Butt on 07-25-2024 MCH (RBC) [Entitic mass] 32.3 pg High 27.0-32.0 [facility] Mean corpuscular hemoglobin concentration (MCHC) determinationOrdered By: Guilherme Butt on 07-25-2024 MCHC (RBC) [Mass/Vol] 34.1 g/dL 32-36 [facility] Mean platelet volume determi nationOrdered By: Guilherme Butt on 07-25-2024 Platelet mean volume (Bld) [Entitic vol] 9.1 fL 6.2-12.0 [facility] Platelet countOrdered By: Roselia Butt on 07-25-2024 Platelets (Bld) [#/Vol] 174 10*3/uL 150-450 [facility] Potassium (Unsp spec) [Mass/ Vol]Ordered By: Guilherme Butt on 07-25-2024 Potassium [Moles/Vol] 4.5 mmol/L 3.3-5.1 [facility] Potassium measurement (mass/ volume)Ordered By: Guilherme Butt on 07-25-2024 Potassium (Unsp spec) [Mass/Vol] 4.5 mmol/L 3.3-5.1 [facility] RBC Auto (Bld) [#/Vol]Ordere d By: Guilherme Butt on 07-25-2024 RBC (Bld) [#/Vol] 4.05 10*6/uL Low 4.6-6.2 [facility] Serum creatinine measurement (mass/volume)Ordered By: Guilherme Butt on 07-25-2024 Creatinine [Mass/Vol] 0.92 mg/dL 0.70-1.20 [facility] Serum glucose measurement (m ass/volume)Ordered By: Guilherme Butt on 07-25-2024 Glucose [Mass/Vol] 93 mg/dL 70-[address] [facility] Serum or plasma calcium farshad urement (mass/volume)Ordered By: Guilherme Butt on 07-25-2024 Calcium [Mass/Vol] 9.2 mg/dL 7.6-11.[address] [facility] Serum or plasma urea nitroge n measurement (mass/volume)Ordered By: Guilherme Butt on 07-25-2024 Urea nitrogen [Mass/Vol] 26 mg/dL High 4-19 [facility] Sodium levelOrdered By: Kelly Butt on 07-25-2024 Sodium [Moles/Vol] 141 mmol/L 133-[address] [facility] White blood cell (WBC) count Ordered By: Guilherme Butt on 07-25-2024 WBC (Bld) [#/Vol] 4.5 10*3/uL 4.4-11.[address] [facility] Blood urea nitrogen (BUN)/cr eatinine ratioOrdered By: Guilherme Butt on 06-27-2024 Urea nitrogen/Creatinine [Mass ratio] 31.6 mg/mg High 10-20 [facility] Carbon dioxide measurementOr dered By: Guilherme Butt on 06-27-2024 CO2 [Moles/Vol] 28.0 mmol/L 21.0-32.0 [facility] Chloride measurementOrdered By: Guilherme Butt on 06-27-2024 Chloride [Moles/Vol] 107 mmol/L 98-107 [facility] Erythrocyte distribution wid th (RBC) [Ratio]Ordered By: Guilherme Butt on 06-27-2024 Erythrocyte distribution width (RBC) [Entitic vol] 43.9 fL 35.1-43.9 [facility] Erythrocyte distribution wid th ratioOrdered By: Guilherme Butt on 06-27-2024 Erythrocyte distribution width (RBC) [Ratio] 12.6 % 11.6-14.6 [facility] Erythrocyte distribution wid th standard deviationOrdered By: Guilherme Butt on 06-27-2024 Erythrocyte distribution width (RBC) [Ratio] 43.9 fl 35.1-43.9 [facility] Estimated glomerular filtrat ion rate (GFR) AmericanOrdered By: Guilherme Butt on 06-27-2024 Estimated GFR (MDRD) Amer 99 mL/min >60 [facility] Comment on above: GFR Calc Glomerular filtration rate ( GFR) estimationOrdered By: Guilherme Butt on 06-27-2024 Estimated GFR (MDRD) Non-Af Amer 81 mL/min >60 [facility] Comment on above: Non- GFR Calc GFR/1.73 sq M.predicted among non-blacks MDRD (S/P/Bld) [Vol rate/Area] 81 mL/min/{1.73_m2} >60 [facility] Comment on above: Non- GFR Calc Glucose measurementOrdered B y: Guilherme Butt on 06-27-2024 Glucose [Mass/Vol] 88 mg/dL 74-[address] [facility] Hematocrit Auto (Bld) [Volum e fraction]Ordered By: Guilherme Butt on 06-27-2024 Hematocrit (Bld) [Volume fraction] 37.5 % Low 40-54 [facility] Hemoglobin measurementOrdere d By: Guilherme Butt on 06-27-2024 Hemoglobin (Bld) [Mass/Vol] 12.7 g/dL Low 13.0-16.5 [facility] MCV (mean corpuscular volume ) determinationOrdered By: Guilherme Butt on 06-27-2024 MCV (RBC) [Entitic vol] 94.7 fL High 80-94 [facility] Mean corpuscular hemoglobin (MCH) determinationOrdered By: Guilherme Butt on 06-27-2024 MCH (RBC) [Entitic mass] 32.1 pg High 27.0-32.0 [facility] Mean corpuscular hemoglobin concentration (MCHC) determinationOrdered By: Guilherme Butt on 06-27-2024 MCHC (RBC) [Mass/Vol] 33.9 g/dL 32-36 [facility] Mean platelet volume determi nationOrdered By: Guilherme Butt on 06-27-2024 Platelet mean volume (Bld) [Entitic vol] 9.1 fL 6.2-12.0 [facility] Platelet countOrdered By: Roselia Butt on 06-27-2024 Platelets (Bld) [#/Vol] 173 10*3/uL 150-450 [facility] Potassium measurementOrdered By: Guilherme Butt on 06-27-2024 Potassium [Moles/Vol] 4.1 mmol/L 3.5-5.1 [facility] RBC Auto (Bld) [#/Vol]Ordere d By: Guilherme Butt on 06-27-2024 RBC (Bld) [#/Vol] 3.96 10*6/uL Low 4.6-6.2 [facility] Serum anion gap measurementO rdered By: Guilherme Butt on 06-27-2024 Anion gap [Moles/Vol] 6 mmol/L 5-15 [facility] Serum or plasma calcium farshad urement (mass/volume)Ordered By: Guilherme Butt on 06-27-2024 Calcium [Mass/Vol] 9.0 mg/dL 8.5-10.[address] [facility] Serum or plasma creatinine m easurement (mass/volume)Ordered By: Guilherme Butt on 06-27-2024 Creatinine [Mass/Vol] 0.95 mg/dL 0.70-1.30 [facility] Comment on above: The validity of the calculated GFR & GFRAA in patients over 70 years has not been determined. Clinical correlation is essential. Serum or plasma urea nitroge n measurement (mass/volume)Ordered By: Guilherme Butt on 06-27-2024 Urea nitrogen [Mass/Vol] 30 mg/dL High 7-18 [facility] Sodium levelOrdered By: Kelly Butt on 06-27-2024 Sodium [Moles/Vol] 141 mmol/L 136-[address] [facility] White blood cell (WBC) count Ordered By: Guilherme Butt on 06-27-2024 WBC (Bld) [#/Vol] 4.2 10*3/uL Low 4.4-11.[address] [facility] Blood urea nitrogen (BUN)/cr eatinine ratioOrdered By: Guilherme Butt on 05-23-2024 Urea nitrogen/Creatinine [Mass ratio] 27.9 mg/mg High 10-20 [facility] Carbon dioxide measurementOr dered By: Guilherme Butt on 05-23-2024 CO2 [Moles/Vol] 32.0 mmol/L 21.0-32.0 [facility] Chloride measurementOrdered By: Guilherme Butt on 05-23-2024 Chloride [Moles/Vol] 105 mmol/L 98-107 [facility] Erythrocyte distribution wid th (RBC) [Ratio]Ordered By: Guilherme Butt on 05-23-2024 Erythrocyte distribution width (RBC) [Entitic vol] 44.6 fL High 35.1-43.9 [facility] Erythrocyte distribution wid th ratioOrdered By: Guilherme Butt on 05-23-2024 Erythrocyte distribution width (RBC) [Ratio] 12.7 % 11.6-14.6 [facility] Erythrocyte distribution wid th standard deviationOrdered By: Guilherme Butt on 05-23-2024 Erythrocyte distribution width (RBC) [Ratio] 44.6 fl High 35.1-43.9 [facility] Estimated glomerular filtrat ion rate (GFR) AmericanOrdered By: Guilherme Butt on 05-23-2024 Estimated GFR (MDRD) Amer 101 mL/min >60 [facility] Comment on above: GFR Calc Glomerular filtration rate ( GFR) estimationOrdered By: Guilherme Butt on 05-23-2024 Estimated GFR (MDRD) Non-Af Amer 83 mL/min >60 [facility] Comment on above: Non- GFR Calc GFR/1.73 sq M.predicted among non-blacks MDRD (S/P/Bld) [Vol rate/Area] 83 mL/min/{1.73_m2} >60 [facility] Comment on above: Non- GFR Calc Glucose measurementOrdered B y: Guilherme Butt on 05-23-2024 Glucose [Mass/Vol] 90 mg/dL 74-[address] [facility] Hematocrit Auto (Bld) [Volum e fraction]Ordered By: Guilherme Butt on 05-23-2024 Hematocrit (Bld) [Volume fraction] 40.6 % 40-54 [facility] Hemoglobin measurementOrdere d By: Guilherme Butt on 05-23-2024 Hemoglobin (Bld) [Mass/Vol] 13.4 g/dL 13.0-16.5 [facility] MCV (mean corpuscular volume ) determinationOrdered By: Guilherme Butt on 05-23-2024 MCV (RBC) [Entitic vol] 95.8 fL High 80-94 [facility] Mean corpuscular hemoglobin (MCH) determinationOrdered By: Guilherme Butt on 05-23-2024 MCH (RBC) [Entitic mass] 31.6 pg 27.0-32.0 [facility] Mean corpuscular hemoglobin concentration (MCHC) determinationOrdered By: Guilherme Butt on 05-23-2024 MCHC (RBC) [Mass/Vol] 33.0 g/dL 32-36 [facility] Mean platelet volume determi nationOrdered By: Guilherme Butt on 05-23-2024 Platelet mean volume (Bld) [Entitic vol] 9.3 fL 6.2-12.0 [facility] Platelet countOrdered By: Roselia Butt on 05-23-2024 Platelets (Bld) [#/Vol] 181 10*3/uL 150-450 [facility] Potassium measurementOrdered By: Guilherme Butt on 05-23-2024 Potassium [Moles/Vol] 4.4 mmol/L 3.5-5.1 [facility] RBC Auto (Bld) [#/Vol]Ordere d By: Guilherme Butt on 05-23-2024 RBC (Bld) [#/Vol] 4.24 10*6/uL Low 4.6-6.2 [facility] Serum anion gap measurementO rdered By: Guilherme Butt on 05-23-2024 Anion gap [Moles/Vol] 2 mmol/L Low 5-15 [facility] Serum or plasma calcium farshad urement (mass/volume)Ordered By: Guilherme Butt on 05-23-2024 Calcium [Mass/Vol] 9.2 mg/dL 8.5-10.[address] [facility] Serum or plasma creatinine m easurement (mass/volume)Ordered By: Guilherme Butt on 05-23-2024 Creatinine [Mass/Vol] 0.93 mg/dL 0.70-1.30 [facility] Comment on above: The validity of the calculated GFR & GFRAA in patients over 70 years has not been determined. Clinical correlation is essential. Serum or plasma urea nitroge n measurement (mass/volume)Ordered By: Guilherme Butt on 05-23-2024 Urea nitrogen [Mass/Vol] 26 mg/dL High 7-18 [facility] Sodium levelOrdered By: Kelly Butt on 05-23-2024 Sodium [Moles/Vol] 138 mmol/L 136-[address] [facility] [facility] blood cell (WBC) count Ordered By: Guilherme Butt on 05-23-2024 WBC (Bld) [#/Vol] 4.7 10*3/uL 4.4-11.[address] [facility] Blood urea nitrogen (BUN)/cr eatinine ratioOrdered By: Guilherme Butt on 04-25-2024 Urea nitrogen/Creatinine [Mass ratio] 28.1 mg/mg High 10-20 [facility] Carbon dioxide measurementOr dered By: Guilherme Butt on 04-25-2024 CO2 [Moles/Vol] 31.0 mmol/L 21.0-32.0 [facility] Chloride measurementOrdered By: Guilherme Butt on 04-25-2024 Chloride [Moles/Vol] 104 mmol/L 98-107 [facility] Erythrocyte distribution wid th (RBC) [Ratio]Ordered By: Guilherme Butt on 04-25-2024 Erythrocyte distribution width (RBC) [Entitic vol] 45.0 fL High 35.1-43.9 [facility] Erythrocyte distribution wid th ratioOrdered By: Guilherme Butt on 04-25-2024 Erythrocyte distribution width (RBC) [Ratio] 12.8 % 11.6-14.6 [facility] Estimated glomerular filtrat ion rate (GFR) AmericanOrdered By: Guilherme Butt on 04-25-2024 Estimated GFR (MDRD) Amer 93 mL/min >60 [facility] Comment on above: GFR Calc Glomerular filtration rate ( GFR) estimationOrdered By: Guilherme Butt on 04-25-2024 Estimated GFR (MDRD) Non-Af Amer 77 mL/min >60 [facility] Comment on above: Non- GFR Calc Glucose measurementOrdered B y: Guilherme Butt on 04-25-2024 Glucose [Mass/Vol] 125 mg/dL High 74-[address] [facility] Comment on above: Fasting Glucose resu lt from 100 to 125 mg/dL suggests IMPAIRED HOMEOSTASIS per A.D.A. criteria. Hematocrit Auto (Bld) [Volum e fraction]Ordered By: Guilherme Butt on 04-25-2024 Hematocrit (Bld) [Volume fraction] 39.0 % Low 40-54 [facility] Hemoglobin measurementOrdere d By: Guilherme Butt on 04-25-2024 Hemoglobin (Bld) [Mass/Vol] 12.8 g/dL Low 13.0-16.5 [facility] MCV (mean corpuscular volume ) determinationOrdered By: Guilherme Butt 04-25-2024 MCV (RBC) [Entitic vol] 95.8 fL High 80-94 [facility] Mean corpuscular hemoglobin (MCH) determinationOrdered By: Guilherme Butt on 04-25-2024 MCH (RBC) [Entitic mass] 31.4 pg 27.0-32.0 [facility] Mean corpuscular hemoglobin concentration (MCHC) determinationOrdered By: Guilherme Butt on 04-25-2024 MCHC (RBC) [Mass/Vol] 32.8 g/dL 32-36 [facility] Mean platelet volume determi nationOrdered By: Guilherme Butt on 04-25-2024 Platelet mean volume (Bld) [Entitic vol] 9.2 fL 6.2-12.0 [facility] Platelet countOrdered By: Roselia felipa Butt on 04-25-2024 Platelets (Bld) [#/Vol] 176 10*3/uL 150-450 [facility] Potassium measurementOrdered By: Guilherme Butt on 04-25-2024 Potassium [Moles/Vol] 3.9 mmol/L 3.5-5.1 [facility] RBC Auto (Bld) [#/Vol]Ordere d By: Guilherme Yonasjack on 04-25-2024 RBC (Bld) [#/Vol] 4.07 10*6/uL Low 4.6-6.2 [facility] Serum anion gap measurementO rdered By: Guilherme Butt on 04-25-2024 Anion gap [Moles/Vol] 4 mmol/L Low 5-15 [facility] Serum or plasma calcium farshad urement (mass/volume)Ordered By: Guilherme Yonasjack on 04-25-2024 Calcium [Mass/Vol] 9.0 mg/dL 8.5-10.[address] [facility] Serum or plasma creatinine m easurement (mass/volume)Ordered By: Guilherme Yonasjack 04-25-2024 Creatinine [Mass/Vol] 1.00 mg/dL 0.70-1.30 [facility] Comment on above: The validity of the calculated GFR & GFRAA in patients over 70 years has not been determined. Clinical correlation is essential. Serum or plasma urea nitroge n measurement (mass/volume)Ordered By: Reillydmitri Branhammarianjessenia on 04-25-2024 Urea nitrogen [Mass/Vol] 28 mg/dL High 7-18 [facility] Sodium levelOrdered By: Kelly rodríguez Yonasjack on 04-25-2024 Sodium [Moles/Vol] 139 mmol/L 136-[address] [facility] White blood cell (WBC) count Ordered By: Guilherme Yonasjack on 04-25-2024 WBC (Bld) [#/Vol] 4.2 10*3/uL Low 4.4-11.[address] [facility] Basophil percentageOrdered B y: Guilherme Butt on 08-24-2023 Chloride [Moles/Vol] 105 mmol/L 98-107 [facility] Glucose [Mass/Vol] 86 mg/dL 74-[address] [facility] Hemoglobin (Bld) [Mass/Vol] 13.3 g/dL 13.0-16.5 [facility] Potassium [Moles/Vol] 4.5 mmol/L 3.5-5.1 [facility] Sodium [Moles/Vol] 138 mmol/L 136-[address] [facility] WBC (Bld) [#/Vol] 4.6 10*3/uL 4.4-11.[address] [facility] Determination of erythrocyte mean corpuscular volume (MCV)Ordered By: Kellyvalley headdmitri Butt on 08-24-2023 MCV (RBC) [Entitic vol] 96.2 fL 80-94 [facility] Erythrocyte distribution wid th ratioOrdered By: Kellyvalley headdmitri Butt on 08-24-2023 Erythrocyte distribution width (RBC) [Ratio] 13.0 % 11.6-14.6 [facility] Erythrocyte distribution wid th standard deviationOrdered By: Roseliaatrium health navicent peachdmitri Butt on 08-24-2023 Erythrocyte distribution width (RBC) [Entitic vol] 46.1 fL 35.1-43.9 [facility] Hematocrit Auto (Bld) [Volum e fraction]Ordered By: Kellyvalley headdmitri Butt on 08-24-2023 Hematocrit (Bld) [Volume fraction] 40.6 % 40-54 [facility] Laboratory - Chemistry and C hemistry - challengeOrdered By: Guilherme Butt on 08-24-2023 CO2 [Moles/Vol] 30.0 mmol/L 21.0-32.0 [facility] Urea nitrogen/Creatinine [Mass ratio] 26.9 mg/mg 10-20 [facility] Laboratory - Hematology and Cell countsOrdered By: Guilherme Butt on 08-24-2023 MCH (RBC) [Entitic mass] 31.5 pg 27.0-32.0 [facility] MCHC (RBC) [Mass/Vol] 32.8 g/dL 32-36 [facility] Platelet mean volume (Bld) [Entitic vol] 9.2 fL 6.2-12.0 [facility] Platelets (Bld) [#/Vol] 193 10*3/uL 150-450 [facility] No Panel InformationOrdered By: Guilherme Butt on 08-24-2023 Estimated GFR (MDRD) Amer 89 mL/min >60 [facility] Comment on above: GFR Calc Estimated GFR (MDRD) Non-Af Amer 73 mL/min >60 [facility] Comment on above: Non- GFR Calc RBC Auto (Bld) [#/Vol]Ordere d By: Guilherme Butt on 08-24-2023 RBC (Bld) [#/Vol] 4.22 10*6/uL 4.6-6.2 [facility] Serum or plasma calcium farshad urement (mass/volume)Ordered By: Guilherme Butt on 08-24-2023 Calcium [Mass/Vol] 9.0 mg/dL 8.5-10.[address] [facility] Serum or plasma creatinine m easurement (mass/volume)Ordered By: Guilherme Butt on 08-24-2023 Creatinine [Mass/Vol] 1.04 mg/dL 0.70-1.30 [facility] Comment on above: The validity of the calculated GFR & GFRAA in patients over 70 years has not been determined. Clinical correlation is essential. Serum or plasma urea nitroge n measurement (mass/volume)Ordered By: Guilherme Butt on 08-24-2023 Urea nitrogen [Mass/Vol] 28 mg/dL 7-18 [facility] Thin prep Papanicolaou smear with manual screeningOrdered By: Guilherme Butt on 08-24-2023 Thin prep Papanicolaou smear with manual screening 3 5-15 [facility] Basophil percentageOrdered B y: Guilherme Butt on 07-20-2023 Chloride [Moles/Vol] 109 mmol/L 98-107 [facility] Glucose [Mass/Vol] 83 mg/dL 74-[address] [facility] Hemoglobin (Bld) [Mass/Vol] 13.1 g/dL 13.0-16.5 [facility] Potassium [Moles/Vol] 4.2 mmol/L 3.5-5.1 [facility] Sodium [Moles/Vol] 142 mmol/L 136-[address] [facility] WBC (Bld) [#/Vol] 4.5 10*3/uL 4.4-11.[address] [facility] Determination of erythrocyte mean corpuscular volume (MCV)Ordered By: Guilherme Butt on 07-20-2023 MCV (RBC) [Entitic vol] 94.4 fL 80-94 [facility] Erythrocyte distribution wid th ratioOrdered By: [facility] Hospitaldmitri [facility] on 07-20-2023 Erythrocyte distribution width (RBC) [Ratio] 12.8 % 11.6-14.6 [facility] Erythrocyte distribution wid th standard deviationOrdered By: Kellyvalley headdmitri Butt on 07-20-2023 Erythrocyte distribution width (RBC) [Entitic vol] 44.0 fL 35.1-43.9 [facility] Hematocrit Auto (Bld) [Volum e fraction]Ordered By: Guilherme Butt on 07-20-2023 Hematocrit (Bld) [Volume fraction] 38.9 % 40-54 [facility] Laboratory - Chemistry and C hemistry - challengeOrdered By: Guilherme Butt on 07-20-2023 CO2 [Moles/Vol] 26.0 mmol/L 21.0-32.0 [facility] Urea nitrogen/Creatinine [Mass ratio] 31.5 mg/mg 10-20 [facility] Laboratory - Hematology and Cell countsOrdered By: Guilherme Butt on 07-20-2023 MCH (RBC) [Entitic mass] 31.8 pg 27.0-32.0 [facility] MCHC (RBC) [Mass/Vol] 33.7 g/dL 32-36 [facility] Platelet mean volume (Bld) [Entitic vol] 9.1 fL 6.2-12.0 [facility] Platelets (Bld) [#/Vol] 195 10*3/uL 150-450 [facility] No Panel InformationOrdered By: Guilherme Butt on 07-20-2023 Estimated GFR (MDRD) Amer 102 mL/min >60 [facility] Comment on above: GFR Calc Estimated GFR (MDRD) Non-Af Amer 84 mL/min >60 [facility] Comment on above: Non- GFR Calc RBC Auto (Bld) [#/Vol]Ordere d By: Guilherme Butt on 07-20-2023 RBC (Bld) [#/Vol] 4.12 10*6/uL 4.6-6.2 [facility] Serum or plasma calcium farshad urement (mass/volume)Ordered By: Guilherme Butt on 07-20-2023 Calcium [Mass/Vol] 8.8 mg/dL 8.5-10.[address] [facility] Serum or plasma creatinine m easurement (mass/volume)Ordered By: Guilherme Butt on 07-20-2023 Creatinine [Mass/Vol] 0.92 mg/dL 0.70-1.30 [facility] Comment on above: The validity of the calculated GFR & GFRAA in patients over 70 years has not been determined. Clinical correlation is essential. Serum or plasma urea nitroge n measurement (mass/volume)Ordered By: Guilherme Butt on 07-20-2023 Urea nitrogen [Mass/Vol] 29 mg/dL 7-18 [facility] Thin prep Papanicolaou smear with manual screeningOrdered By: Kellyvalley headdmitri Butt on 07-20-2023 Thin prep Papanicolaou smear with manual screening 7 5-15 [facility] Basophil percentageOrdered B y: Guilherme Butt on 06-22-2023 Chloride [Moles/Vol] 107 mmol/L 98-107 [facility] Glucose [Mass/Vol] 88 mg/dL 74-[address] [facility] Hemoglobin (Bld) [Mass/Vol] 12.8 g/dL 13.0-16.5 [facility] Potassium [Moles/Vol] 4.4 mmol/L 3.5-5.1 [facility] Sodium [Moles/Vol] 141 mmol/L 136-[address] [facility] WBC (Bld) [#/Vol] 4.6 10*3/uL 4.4-11.[address] [facility] Determination of erythrocyte mean corpuscular volume (MCV)Ordered By: Guilherme Butt on 06-22-2023 MCV (RBC) [Entitic vol] 93.4 fL 80-94 [facility] Erythrocyte distribution wid th ratioOrdered By: Guilherme Butt on 06-22-2023 Erythrocyte distribution width (RBC) [Ratio] 12.5 % 11.6-14.6 [facility] Erythrocyte distribution wid th standard deviationOrdered By: Guilherme Butt on 06-22-2023 Erythrocyte distribution width (RBC) [Entitic vol] 43.2 fL 35.1-43.9 [facility] Hematocrit Auto (Bld) [Volum e fraction]Ordered By: Guilherme Butt on 06-22-2023 Hematocrit (Bld) [Volume fraction] 38.4 % 40-54 [facility] Laboratory - Chemistry and C hemistry - challengeOrdered By: Guilherme Butt on 06-22-2023 CO2 [Moles/Vol] 30.0 mmol/L 21.0-32.0 [facility] Urea nitrogen/Creatinine [Mass ratio] 26.5 mg/mg 10-20 [facility] Laboratory - Hematology and Cell countsOrdered By: Guilherme Butt on 06-22-2023 MCH (RBC) [Entitic mass] 31.1 pg 27.0-32.0 [facility] MCHC (RBC) [Mass/Vol] 33.3 g/dL 32-36 [facility] Platelet mean volume (Bld) [Entitic vol] 9.0 fL 6.2-12.0 [facility] Platelets (Bld) [#/Vol] 194 10*3/uL 150-450 [facility] No Panel InformationOrdered By: Guilherme Butt on 06-22-2023 Estimated GFR (MDRD) Amer 104 mL/min >60 [facility] Comment on above: GFR Calc Estimated GFR (MDRD) Non-Af Amer 86 mL/min >60 [facility] Comment on above: Non- GFR Calc RBC Auto (Bld) [#/Vol]Ordere d By: Guilherme Butt on 06-22-2023 RBC (Bld) [#/Vol] 4.11 10*6/uL 4.6-6.2 [facility] Serum or plasma calcium farshad urement (mass/volume)Ordered By: Guilherme Butt on 06-22-2023 Calcium [Mass/Vol] 8.8 mg/dL 8.5-10.[address] [facility] Serum or plasma creatinine m easurement (mass/volume)Ordered By: Guilherme Butt on 06-22-2023 Creatinine [Mass/Vol] 0.90 mg/dL 0.70-1.30 [facility] Comment on above: The validity of the calculated GFR & GFRAA in patients over 70 years has not been determined. Clinical correlation is essential. Serum or plasma urea nitroge n measurement (mass/volume)Ordered By: Guilherme Butt on 06-22-2023 Urea nitrogen [Mass/Vol] 24 mg/dL 7-18 [facility] Thin prep Papanicolaou smear with manual screeningOrdered By: Guilherme Butt on 06-22-2023 Thin prep Papanicolaou smear with manual screening 4 5-15 [facility] Basophil percentageOrdered B y: Cecy Gray on 05-25-2023 Chloride [Moles/Vol] 107 mmol/L 98-107 [facility] Glucose [Mass/Vol] 138 mg/dL 74-[address] [facility] Comment on above: Fasting Glucose resu lt greater than or equal to 126 mg/dL suggests DIABETES MELLITUS per A.D.A. criteria. Potassium [Moles/Vol] 4.1 mmol/L 3.5-5.1 [facility] Sodium [Moles/Vol] 141 mmol/L 136-[address] [facility] WBC (Bld) [#/Vol] 5.5 10*3/uL 4.4-11.[address] [facility] Blood erythrocytes count (nu mber/volume)Ordered By: Cecy Gray on 05-25-2023 RBC (Bld) [#/Vol] 4.36 10*6/uL 4.6-6.2 [facility] Blood hemoglobin measurement (mass/volume)Ordered By: Cecy Gray on 05-25-2023 Hemoglobin (Bld) [Mass/Vol] 13.5 g/dL 13.0-16.5 [facility] Blood platelet mean volumeOr dered By: Cecy Gray on 05-25-2023 Platelet mean volume (Bld) [Entitic vol] 9.2 fL 6.2-12.0 [facility] Determination of erythrocyte mean corpuscular volume (MCV)Ordered By: Cecy Gray on 05-25-2023 MCV (RBC) [Entitic vol] 94.0 fL 80-94 [facility] Hematocrit Auto (Bld) [Volum e fraction]Ordered By: Cecy Gray on 05-25-2023 Hematocrit (Bld) [Volume fraction] 41.0 % 40-54 [facility] Laboratory - Chemistry and C hemistry - challengeOrdered By: Cecy Gray on 05-25-2023 CO2 [Moles/Vol] 26.0 mmol/L 21.0-32.0 [facility] Urea nitrogen/Creatinine [Mass ratio] 25.2 mg/mg 10-20 [facility] Laboratory - Hematology and Cell countsOrdered By: Cecy Gray on 05-25-2023 Erythrocyte distribution width (RBC) [Entitic vol] 43.3 fL 35.1-43.9 [facility] Erythrocyte distribution width (RBC) [Ratio] 12.4 % 11.6-14.6 [facility] MCH (RBC) [Entitic mass] 31.0 pg 27.0-32.0 [facility] MCHC Auto (RBC) [Mass/Vol]Or dered By: Cecy Gray on 05-25-2023 MCHC (RBC) [Mass/Vol] 32.9 g/dL 32-36 [facility] No Panel InformationOrdered By: Cecy Gray on 05-25-2023 Estimated GFR (MDRD) Amer 86 mL/min >60 [facility] Comment on above: GFR Calc Estimated GFR (MDRD) Non-Af Amer 71 mL/min >60 [facility] Comment on above: Non- GFR Calc Platelets bldOrdered By: Reinier Gray on 05-25-2023 Platelets (Bld) [#/Vol] 214 10*3/uL 150-450 [facility] Serum or plasma calcium farshad urement (mass/volume)Ordered By: Cecy Gray on 05-25-2023 Calcium [Mass/Vol] 9.2 mg/dL 8.5-10.[address] [facility] Serum or plasma creatinine m easurement (mass/volume)Ordered By: Cecy Gray on 05-25-2023 Creatinine [Mass/Vol] 1.07 mg/dL 0.70-1.30 [facility] Comment on above: The validity of the calculated GFR & GFRAA in patients over 70 years has not been determined. Clinical correlation is essential. Serum or plasma urea nitroge n measurement (mass/volume)Ordered By: Cecy Gray on 05-25-2023 Urea nitrogen [Mass/Vol] 27 mg/dL 7-18 [facility] Thin prep Papanicolaou smear with manual screeningOrdered By: Cecy Gray on 05-25-2023 Thin prep Papanicolaou smear with manual screening 8 5-15 [facility] Basophil percentageOrdered B y: Cecy Gray on 04-20-2023 Chloride [Moles/Vol] 106 mmol/L 98-107 [facility] Glucose [Mass/Vol] 100 mg/dL 74-[address] [facility] Comment on above: Fasting Glucose resu lt from 100 to 125 mg/dL suggests IMPAIRED HOMEOSTASIS per A.D.A. criteria. Potassium [Moles/Vol] 4.8 mmol/L 3.5-5.1 [facility] Sodium [Moles/Vol] 140 mmol/L 136-[address] [facility] WBC (Bld) [#/Vol] 5.2 10*3/uL 4.4-11.[address] [facility] Blood erythrocytes count (nu mber/volume)Ordered By: Cecy Gray on 04-20-2023 RBC (Bld) [#/Vol] 4.26 10*6/uL 4.6-6.2 [facility] Blood hemoglobin measurement (mass/volume)Ordered By: Cecy Gray on 04-20-2023 Hemoglobin (Bld) [Mass/Vol] 13.8 g/dL 13.0-16.5 [facility] Blood platelet mean volumeOr dered By: Cecy Gray on 04-20-2023 Platelet mean volume (Bld) [Entitic vol] 9.1 fL 6.2-12.0 [facility] Determination of erythrocyte mean corpuscular volume (MCV)Ordered By: Cecy Gray on 04-20-2023 MCV (RBC) [Entitic vol] 96.9 fL 80-94 [facility] Hematocrit Auto (Bld) [Volum e fraction]Ordered By: Cecy Gray on 04-20-2023 Hematocrit (Bld) [Volume fraction] 41.3 % 40-54 [facility] Laboratory - Chemistry and C hemistry - challengeOrdered By: Cecy Gray on 04-20-2023 CO2 [Moles/Vol] 34.0 mmol/L 21.0-32.0 [facility] Urea nitrogen/Creatinine [Mass ratio] 23.8 mg/mg 10-20 [facility] Laboratory - Hematology and Cell countsOrdered By: Cecy Gray on 04-20-2023 Erythrocyte distribution width (RBC) [Entitic vol] 45.5 fL 35.1-43.9 [facility] Erythrocyte distribution width (RBC) [Ratio] 12.8 % 11.6-14.6 [facility] MCH (RBC) [Entitic mass] 32.4 pg 27.0-32.0 [facility] MCHC Auto (RBC) [Mass/Vol]Or dered By: Cecy Gray on 04-20-2023 MCHC (RBC) [Mass/Vol] 33.4 g/dL 32-36 [facility] No Panel InformationOrdered By: Cecy Gray on 04-20-2023 Estimated GFR (MDRD) Amer 88 mL/min >60 [facility] Comment on above: GFR Calc Estimated GFR (MDRD) Non-Af Amer 73 mL/min >60 [facility] Comment on above: Non- GFR Calc Platelets bldOrdered By: Reinier Gray on 04-20-2023 Platelets (Bld) [#/Vol] 234 10*3/uL 150-450 [facility] Serum or plasma calcium farshad urement (mass/volume)Ordered By: Cecy Gray on 04-20-2023 Calcium [Mass/Vol] 9.3 mg/dL 8.5-10.[address] [facility] Serum or plasma creatinine m easurement (mass/volume)Ordered By: Cecy Gray on 04-20-2023 Creatinine [Mass/Vol] 1.05 mg/dL 0.70-1.30 [facility] Comment on above: The validity of the calculated GFR & GFRAA in patients over 70 years has not been determined. Clinical correlation is essential. Serum or plasma urea nitroge n measurement (mass/volume)Ordered By: Cecy Gray on 04-20-2023 Urea nitrogen [Mass/Vol] 25 mg/dL 7-18 [facility] Thin prep Papanicolaou smear with manual screeningOrdered By: Cecy Gray on 04-20-2023 Thin prep Papanicolaou smear with manual screening 0 5-15 [facility] Basophil percentageOrdered B y: Cecy Gray on 03-23-2023 Chloride [Moles/Vol] 104 mmol/L 98-107 [facility] Glucose [Mass/Vol] 91 mg/dL 74-[address] [facility] Potassium [Moles/Vol] 4.1 mmol/L 3.5-5.1 [facility] Sodium [Moles/Vol] 141 mmol/L 136-[address] [facility] WBC (Bld) [#/Vol] 4.5 10*3/uL 4.4-11.[address] [facility] Blood erythrocytes count (nu mber/volume)Ordered By: Cecy Gray on 03-23-2023 RBC (Bld) [#/Vol] 4.07 10*6/uL 4.6-6.2 [facility] Blood hemoglobin measurement (mass/volume)Ordered By: Cecy Gray on 03-23-2023 Hemoglobin (Bld) [Mass/Vol] 12.8 g/dL 13.0-16.5 [facility] Blood platelet mean volumeOr dered By: Cecy Gray on 03-23-2023 Platelet mean volume (Bld) [Entitic vol] 9.4 fL 6.2-12.0 [facility] Determination of erythrocyte mean corpuscular volume (MCV)Ordered By: Cecy Gray on 03-23-2023 MCV (RBC) [Entitic vol] 97.5 fL 80-94 [facility] Hematocrit Auto (Bld) [Volum e fraction]Ordered By: Cecy Gray on 03-23-2023 Hematocrit (Bld) [Volume fraction] 39.7 % 40-54 [facility] Laboratory - Chemistry and C hemistry - challengeOrdered By: Cecy Gray on 03-23-2023 CO2 [Moles/Vol] 31.0 mmol/L 21.0-32.0 [facility] Urea nitrogen/Creatinine [Mass ratio] 28.0 mg/mg 10-20 [facility] Laboratory - Hematology and Cell countsOrdered By: Cecy Gray on 03-23-2023 Erythrocyte distribution width (RBC) [Entitic vol] 46.2 fL 35.1-43.9 [facility] Erythrocyte distribution width (RBC) [Ratio] 12.8 % 11.6-14.6 [facility] MCH (RBC) [Entitic mass] 31.4 pg 27.0-32.0 [facility] MCHC Auto (RBC) [Mass/Vol]Or dered By: Cecy Gray on 03-23-2023 MCHC (RBC) [Mass/Vol] 32.2 g/dL 32-36 [facility] No Panel InformationOrdered By: Cecy Gray on 03-23-2023 Estimated GFR (MDRD) Amer 93 mL/min >60 [facility] Comment on above: GFR Calc Estimated GFR (MDRD) Non-Af Amer 77 mL/min >60 [facility] Comment on above: Non- GFR Calc Platelets bldOrdered By: Reinier Gray on 03-23-2023 Platelets (Bld) [#/Vol] 210 10*3/uL 150-450 [facility] Serum or plasma calcium farshad urement (mass/volume)Ordered By: Cecy Gray on 03-23-2023 Calcium [Mass/Vol] 8.9 mg/dL 8.5-10.[address] [facility] Serum or plasma creatinine m easurement (mass/volume)Ordered By: Cecy Gray on 03-23-2023 Creatinine [Mass/Vol] 1.00 mg/dL 0.70-1.30 [facility] Comment on above: The validity of the calculated GFR & GFRAA in patients over 70 years has not been determined. Clinical correlation is essential. Serum or plasma urea nitroge n measurement (mass/volume)Ordered By: Cecy Gray on 03-23-2023 Urea nitrogen [Mass/Vol] 28 mg/dL 7-18 [facility] Thin prep Papanicolaou smear with manual screeningOrdered By: Cecy Gray on 03-23-2023 Thin prep Papanicolaou smear with manual screening 6 5-15 [facility] Basophil percentageOrdered B y: Cecy Gray on 02-23-2023 Chloride [Moles/Vol] 106 mmol/L 98-107 [facility] Glucose [Mass/Vol] 93 mg/dL 74-[address] [facility] Potassium [Moles/Vol] 4.3 mmol/L 3.5-5.1 [facility] Sodium [Moles/Vol] 139 mmol/L 136-[address] [facility] WBC (Bld) [#/Vol] 5.0 10*3/uL 4.4-11.[address] [facility] Blood erythrocytes count (nu mber/volume)Ordered By: Cecy Gray on 02-23-2023 RBC (Bld) [#/Vol] 4.08 10*6/uL 4.6-6.2 [facility] Blood hemoglobin measurement (mass/volume)Ordered By: Cecy Gray on 02-23-2023 Hemoglobin (Bld) [Mass/Vol] 12.9 g/dL 13.0-16.5 [facility] Blood platelet mean volumeOr dered By: Cecy Gray on 02-23-2023 Platelet mean volume (Bld) [Entitic vol] 9.3 fL 6.2-12.0 [facility] Determination of erythrocyte mean corpuscular volume (MCV)Ordered By: Cecy Gray on 02-23-2023 MCV (RBC) [Entitic vol] 97.8 fL 80-94 [facility] Hematocrit Auto (Bld) [Volum e fraction]Ordered By: Cecy Gray on 02-23-2023 Hematocrit (Bld) [Volume fraction] 39.9 % 40-54 [facility] Laboratory - Chemistry and C hemistry - challengeOrdered By: Cecy Gray on 02-23-2023 CO2 [Moles/Vol] 30.0 mmol/L 21.0-32.0 [facility] Urea nitrogen/Creatinine [Mass ratio] 29.9 mg/mg 10-20 [facility] Laboratory - Hematology and Cell countsOrdered By: Cecy Gray on 02-23-2023 Erythrocyte distribution width (RBC) [Entitic vol] 45.7 fL 35.1-43.9 [facility] Erythrocyte distribution width (RBC) [Ratio] 12.6 % 11.6-14.6 [facility] MCH (RBC) [Entitic mass] 31.6 pg 27.0-32.0 [facility] MCHC Auto (RBC) [Mass/Vol]Or dered By: Cecy Gray on 02-23-2023 MCHC (RBC) [Mass/Vol] 32.3 g/dL 32- [facility] No Panel InformationOrdered By: Cecy Gray on 02-23-2023 Estimated GFR (MDRD) Amer 86 mL/min >60 [facility] Comment on above: GFR Calc Estimated GFR (MDRD) Non-Af Amer 71 mL/min >60 [facility] Comment on above: Non- GFR Calc Platelets bldOrdered By: Reinier Gray on 02-23-2023 Platelets (Bld) [#/Vol] 201 10*3/uL 150-450 [facility] Serum or plasma calcium farshad urement (mass/volume)Ordered By: Cecy Gray on 02-23-2023 Calcium [Mass/Vol] 8.8 mg/dL 8.5-10.[address] [facility] Serum or plasma creatinine m easurement (mass/volume)Ordered By: Cecy Gray on 02-23-2023 Creatinine [Mass/Vol] 1.07 mg/dL 0.70-1.30 [facility] Comment on above: The validity of the calculated GFR & GFRAA in patients over 70 years has not been determined. Clinical correlation is essential. Serum or plasma urea nitroge n measurement (mass/volume)Ordered By: Cecy Gray on 02-23-2023 Urea nitrogen [Mass/Vol] 32 mg/dL 7-18 [facility] Thin prep Papanicolaou smear with manual screeningOrdered By: Cecy Gray on 02-23-2023 Thin prep Papanicolaou smear with manual screening 3 5-15 [facility] Basophil percentageOrdered B y: Guilherme Butt on 02-06-2023 Bilirubin [Mass/Vol] 0.50 mg/dL 0.20-1.00 [facility] Comment on above: For patients on eltr ombopag therapy, use of Dimension [place] TBIL is not recommended. Cholesterol [Mass/Vol] 180 mg/dL <200 [facility] Comment on above: <200 mg/dL Desirable 200-240 mg/dL Borderline >240 mg/dL High Risk Protein [Mass/Vol] 6.3 g/dL 6.4-8.[address] [facility] Triglyceride [Mass/Vol] 108 mg/dL <199 [facility] Comment on above: The drugs N-Acetylcy steine and Metamizole may falsely depress this assay.Serum Triglycerides Reference Interval Normal <150 mg/dL Borderline high 150 - 199 mg/dL High 200 - 499 mg/dL Very High > or = 500 mg/dL Direct bilirubinOrdered By: Guilherme Butt on 02-06-2023 Bilirubin.direct [Mass/Vol] 0.11 mg/dL 0.00-0.30 [facility] Laboratory - Chemistry and C hemistry - challengeOrdered By: Guilherme Butt on 02-06-2023 ALP [Catalytic activity/Vol] 119 U/L 45-117 [facility] ALT [Catalytic activity/Vol] 9 U/L 16-61 [facility] Free T4 [Mass/Vol] 0.65 ng/dL 0.76-1.[address] [facility] Globulin (S) [Mass/Vol] 2.9 g/dL 2.2-4.2 [facility] No Panel InformationOrdered By: Guilherme Butt on 02-06-2023 Thyroid Stimulating Hormone (TSH) 1.03 uIU/mL 0.358-3.74 [facility] Serum or plasma albumin farshad urement (mass/volume)Ordered By: Guilherme Butt on 02-06-2023 Albumin [Mass/Vol] 3.4 g/dL 3.2-5.[address] [facility] Serum or plasma cholesterol in HDL measurement (mass/volume)Ordered By: Guilherme Butt on 02-06-2023 Cholesterol in HDL [Mass/Vol] 50 mg/dL >40 [facility] Comment on above: The drugs N-Acetylcy steine and Metamizole may falsely depress this assay. Reference Range HDL <40 mg/dL Low HDL Cholesterol HDL >or= 60 mg/dL High HDL Cholesterol Serum or plasma cholesterol in VLDL measurement (mass/volume)Ordered By: Guilherme Butt on 02-06-2023 Cholesterol in VLDL [Mass/Vol] 22 mg/dL 5-40 [facility] Serum or plasma low density lipoprotein (LDL) cholesterol measurement (mass/volume)Ordered By: Guilherme Butt on 02-06-2023 Cholesterol in LDL [Mass/Vol] 108 mg/dL 0-130 [facility] Thin prep Papanicolaou smear with manual screeningOrdered By: Guilherme Butt on 02-06-2023 Thin prep Papanicolaou smear with manual screening 11 U/L 15-37 [facility] Whole blood hemoglobin A1c/t otal hemoglobin ratio (mass fraction)Ordered By: Guilherme Butt on 02-06-2023 HbA1c (Bld) [Mass fraction] 5.3 % 3.8-5.6 [facility] Comment on above: Normal < 5.7 % Predi abetic 5.7 - 6.4 % Diabetic >or= 6.5 % Please note range changes. Basophil percentageOrdered B y: Guilherme Butt on 01-19-2023 Chloride [Moles/Vol] 107 mmol/L 98-107 [facility] Glucose [Mass/Vol] 93 mg/dL 74-[address] [facility] Potassium [Moles/Vol] 4.8 mmol/L 3.5-5.1 [facility] Sodium [Moles/Vol] 141 mmol/L 136-[address] [facility] WBC (Bld) [#/Vol] 4.5 10*3/uL 4.4-11.[address] [facility] Blood erythrocytes count (nu mber/volume)Ordered By: Guilherme Butt on 01-19-2023 RBC (Bld) [#/Vol] 4.22 10*6/uL 4.6-6.2 [facility] Blood hemoglobin measurement (mass/volume)Ordered By: Guilherme Butt on 01-19-2023 Hemoglobin (Bld) [Mass/Vol] 13.4 g/dL 13.0-16.5 [facility] Blood platelet mean volumeOr dered By: Guilherme Butt on 01-19-2023 Platelet mean volume (Bld) [Entitic vol] 9.4 fL 6.2-12.0 [facility] Determination of erythrocyte mean corpuscular volume (MCV)Ordered By: Guilherme Butt on 01-19-2023 MCV (RBC) [Entitic vol] 99.1 fL 80-94 [facility] Hematocrit Auto (Bld) [Volum e fraction]Ordered By: Guilherme Butt on 01-19-2023 Hematocrit (Bld) [Volume fraction] 41.8 % 40-54 [facility] Laboratory - Chemistry and C hemistry - challengeOrdered By: Guilherme Butt on 01-19-2023 CO2 [Moles/Vol] 32.0 mmol/L 21.0-32.0 [facility] Urea nitrogen/Creatinine [Mass ratio] 25.5 mg/mg 10-20 [facility] Laboratory - Hematology and Cell countsOrdered By: Guilherme Butt on 01-19-2023 Erythrocyte distribution width (RBC) [Entitic vol] 46.4 fL 35.1-43.9 [facility] Erythrocyte distribution width (RBC) [Ratio] 12.8 % 11.6-14.6 [facility] MCH (RBC) [Entitic mass] 31.8 pg 27.0-32.0 [facility] MCHC Auto (RBC) [Mass/Vol]Or dered By: Guilherme Butt on 01-19-2023 MCHC (RBC) [Mass/Vol] 32.1 g/dL 32-36 [facility] No Panel InformationOrdered By: Guilherme Butt on 01-19-2023 Estimated GFR (MDRD) Amer 91 mL/min >60 [facility] Comment on above: GFR Calc Estimated GFR (MDRD) Non-Af Amer 75 mL/min >60 [facility] Comment on above: Non- GFR Calc Platelets bldOrdered By: Jamaal Butt on 01-19-2023 Platelets (Bld) [#/Vol] 180 10*3/uL 150-450 [facility] Serum or plasma calcium farshad urement (mass/volume)Ordered By: Guilherme Butt on 01-19-2023 Calcium [Mass/Vol] 9.1 mg/dL 8.5-10.[address] [facility] Serum or plasma creatinine m easurement (mass/volume)Ordered By: Guilherme Butt on 01-19-2023 Creatinine [Mass/Vol] 1.02 mg/dL 0.70-1.30 [facility] Comment on above: The validity of the calculated GFR & GFRAA in patients over 70 years has not been determined. Clinical correlation is essential. Serum or plasma urea nitroge n measurement (mass/volume)Ordered By: Guilherme Butt on 01-19-2023 Urea nitrogen [Mass/Vol] 26 mg/dL 7-18 [facility] Thin prep Papanicolaou smear with manual screeningOrdered By: Guilherme Butt on 01-19-2023 Thin prep Papanicolaou smear with manual screening 2 5-15 [facility] Basophil percentageOrdered B y: Guilherme Butt on 12-22-2022 Chloride [Moles/Vol] 106 mmol/L 98-107 [facility] Glucose [Mass/Vol] 87 mg/dL 74-[address] [facility] Potassium [Moles/Vol] 4.5 mmol/L 3.5-5.1 [facility] Sodium [Moles/Vol] 140 mmol/L 136-[address] [facility] WBC (Bld) [#/Vol] 4.6 10*3/uL 4.4-11.[address] [facility] Blood erythrocytes count (nu mber/volume)Ordered By: Guilherme Butt on 12-22-2022 RBC (Bld) [#/Vol] 4.14 10*6/uL 4.6-6.2 [facility] Blood hemoglobin measurement (mass/volume)Ordered By: Guilherme Butt on 12-22-2022 Hemoglobin (Bld) [Mass/Vol] 13.4 g/dL 13.0-16.5 [facility] Blood platelet mean volumeOr dered By: Guilherme Butt on 12-22-2022 Platelet mean volume (Bld) [Entitic vol] 9.0 fL 6.2-12.0 [facility] Determination of erythrocyte mean corpuscular volume (MCV)Ordered By: Guilherme Butt on 12-22-2022 MCV (RBC) [Entitic vol] 97.3 fL 80-94 [facility] Hematocrit Auto (Bld) [Volum e fraction]Ordered By: Guilherme Butt on 12-22-2022 Hematocrit (Bld) [Volume fraction] 40.3 % 40-54 [facility] Laboratory - Chemistry and C hemistry - challengeOrdered By: Guilherme Butt on 12-22-2022 CO2 [Moles/Vol] 33.0 mmol/L 21.0-32.0 [facility] Urea nitrogen/Creatinine [Mass ratio] 26.2 mg/mg 10-20 [facility] Laboratory - Hematology and Cell countsOrdered By: Guilherme Butt on 12-22-2022 Erythrocyte distribution width (RBC) [Entitic vol] 45.3 fL 35.1-43.9 [facility] Erythrocyte distribution width (RBC) [Ratio] 12.8 % 11.6-14.6 [facility] MCH (RBC) [Entitic mass] 32.4 pg 27.0-32.0 [facility] MCHC Auto (RBC) [Mass/Vol]Or dered By: Guilherme Butt on 12-22-2022 MCHC (RBC) [Mass/Vol] 33.3 g/dL 32-36 [facility] No Panel InformationOrdered By: Guilherme Butt on 12-22-2022 Estimated GFR (MDRD) Amer 94 mL/min >60 [facility] Comment on above: GFR Calc Estimated GFR (MDRD) Non-Af Amer 78 mL/min >60 [facility] Comment on above: Non- GFR Calc Platelets bldOrdered By: Jamaal Butt on 12-22-2022 Platelets (Bld) [#/Vol] 179 10*3/uL 150-450 [facility] Serum or plasma calcium farshad urement (mass/volume)Ordered By: Guilherme Butt on 12-22-2022 Calcium [Mass/Vol] 8.9 mg/dL 8.5-10.[address] [facility] Serum or plasma creatinine m easurement (mass/volume)Ordered By: Guilherme Butt on 12-22-2022 Creatinine [Mass/Vol] 0.99 mg/dL 0.70-1.30 [facility] Comment on above: The validity of the calculated GFR & GFRAA in patients over 70 years has not been determined. Clinical correlation is essential. Serum or plasma urea nitroge n measurement (mass/volume)Ordered By: Guilherme Butt on 12-22-2022 Urea nitrogen [Mass/Vol] 26 mg/dL 7-18 [facility] Thin prep Papanicolaou smear with manual screeningOrdered By: Guilherme Butt on 12-22-2022 Thin prep Papanicolaou smear with manual screening 1 5-15 [facility] Basophil percentageOrdered B y: Guilherme Butt on 11-24-2022 Chloride [Moles/Vol] 109 mmol/L 98-107 [facility] Glucose [Mass/Vol] 132 mg/dL 74-[address] [facility] Comment on above: Fasting Glucose resu lt greater than or equal to 126 mg/dL suggests DIABETES MELLITUS per A.D.A. criteria. Potassium [Moles/Vol] 4.0 mmol/L 3.5-5.1 [facility] Sodium [Moles/Vol] 140 mmol/L 136-[address] [facility] WBC (Bld) [#/Vol] 4.6 10*3/uL 4.4-11.[address] [facility] Blood erythrocytes count (nu mber/volume)Ordered By: Guilherme Butt on 11-24-2022 RBC (Bld) [#/Vol] 4.06 10*6/uL 4.6-6.2 [facility] Blood hemoglobin measurement (mass/volume)Ordered By: Guilherme Butt on 11-24-2022 Hemoglobin (Bld) [Mass/Vol] 13.0 g/dL 13.0-16.5 [facility] Blood platelet mean volumeOr dered By: Guilherme Butt on 11-24-2022 Platelet mean volume (Bld) [Entitic vol] 9.3 fL 6.2-12.0 [facility] Determination of erythrocyte mean corpuscular volume (MCV)Ordered By: Guilherme Butt on 11-24-2022 MCV (RBC) [Entitic vol] 96.3 fL 80-94 [facility] Hematocrit Auto (Bld) [Volum e fraction]Ordered By: Guilherme Butt on 11-24-2022 Hematocrit (Bld) [Volume fraction] 39.1 % 40-54 [facility] Laboratory - Chemistry and C hemistry - challengeOrdered By: Guilherme Butt on 11-24-2022 CO2 [Moles/Vol] 26.0 mmol/L 21.0-32.0 [facility] Urea nitrogen/Creatinine [Mass ratio] 34.3 mg/mg 10-20 [facility] Laboratory - Hematology and Cell countsOrdered By: Guilherme Butt on 11-24-2022 Erythrocyte distribution width (RBC) [Entitic vol] 45.0 fL 35.1-43.9 [facility] Erythrocyte distribution width (RBC) [Ratio] 12.7 % 11.6-14.6 [facility] MCH (RBC) [Entitic mass] 32.0 pg 27.0-32.0 [facility] MCHC Auto (RBC) [Mass/Vol]Or dered By: Guilherme Butt on 11-24-2022 MCHC (RBC) [Mass/Vol] 33.2 g/dL 32-36 [facility] No Panel InformationOrdered By: Guilherme Butt on 11-24-2022 Estimated GFR (MDRD) Amer 97 mL/min >60 [facility] Comment on above: GFR Calc Estimated GFR (MDRD) Non-Af Amer 80 mL/min >60 [facility] Comment on above: Non- GFR Calc Platelets bldOrdered By: Jamaal Butt on 11-24-2022 Platelets (Bld) [#/Vol] 188 10*3/uL 150-450 [facility] Serum or plasma calcium farshad urement (mass/volume)Ordered By: Guilherme Butt on 11-24-2022 Calcium [Mass/Vol] 8.7 mg/dL 8.5-10.[address] [facility] Serum or plasma creatinine m easurement (mass/volume)Ordered By: Guilherme Butt on 11-24-2022 Creatinine [Mass/Vol] 0.96 mg/dL 0.70-1.30 [facility] Comment on above: The validity of the calculated GFR & GFRAA in patients over 70 years has not been determined. Clinical correlation is essential. Serum or plasma urea nitroge n measurement (mass/volume)Ordered By: Guilherme Butt on 11-24-2022 Urea nitrogen [Mass/Vol] 33 mg/dL 7-18 [facility] Thin prep Papanicolaou smear with manual screeningOrdered By: kieranvalley headdmitri Butt on 11-24-2022 Thin prep Papanicolaou smear with manual screening 5 5-15 [facility] Basophil percentageOrdered B y: Cecy Gray on 10-20-2022 Chloride [Moles/Vol] 104 mmol/L 98-107 [facility] Glucose [Mass/Vol] 95 mg/dL 74-[address] [facility] Potassium [Moles/Vol] 4.3 mmol/L 3.5-5.1 [facility] Sodium [Moles/Vol] 138 mmol/L 136-[address] [facility] WBC (Bld) [#/Vol] 4.7 10*3/uL 4.4-11.[address] [facility] Blood erythrocytes count (nu mber/volume)Ordered By: Cecy Gray on 10-20-2022 RBC (Bld) [#/Vol] 4.48 10*6/uL 4.6-6.2 [facility] Blood hemoglobin measurement (mass/volume)Ordered By: Cecy Gray on 10-20-2022 Hemoglobin (Bld) [Mass/Vol] 14.2 g/dL 13.0-16.5 [facility] Blood platelet mean volumeOr dered By: Cecy Gray on 10-20-2022 Platelet mean volume (Bld) [Entitic vol] 9.1 fL 6.2-12.0 [facility] Determination of erythrocyte mean corpuscular volume (MCV)Ordered By: Cecy Gray on 10-20-2022 MCV (RBC) [Entitic vol] 97.1 fL 80-94 [facility] Hematocrit Auto (Bld) [Volum e fraction]Ordered By: Cecy Gray on 10-20-2022 Hematocrit (Bld) [Volume fraction] 43.5 % 40-54 [facility] Laboratory - Chemistry and C hemistry - challengeOrdered By: Cecy Gray on 10-20-2022 CO2 [Moles/Vol] 28.0 mmol/L 21.0-32.0 [facility] Urea nitrogen/Creatinine [Mass ratio] 28.2 mg/mg 10-20 [facility] Laboratory - Hematology and Cell countsOrdered By: Cecy Gray on 10-20-2022 Erythrocyte distribution width (RBC) [Entitic vol] 44.9 fL 35.1-43.9 [facility] Erythrocyte distribution width (RBC) [Ratio] 12.5 % 11.6-14.6 [facility] MCH (RBC) [Entitic mass] 31.7 pg 27.0-32.0 [facility] MCHC Auto (RBC) [Mass/Vol]Or dered By: Cecy Gray on 10-20-2022 MCHC (RBC) [Mass/Vol] 32.6 g/dL 32-36 [facility] No Panel InformationOrdered By: Cecy Gray on 10-20-2022 Estimated GFR (MDRD) Amer 98 mL/min >60 [facility] Comment on above: GFR Calc Estimated GFR (MDRD) Non-Af Amer 81 mL/min >60 [facility] Comment on above: Non- GFR Calc Platelets bldOrdered By: Reinier Gray on 10-20-2022 Platelets (Bld) [#/Vol] 204 10*3/uL 150-450 [facility] Serum or plasma calcium farshad urement (mass/volume)Ordered By: Cecy Gray on 10-20-2022 Calcium [Mass/Vol] 8.7 mg/dL 8.5-10.[address] [facility] Serum or plasma creatinine m easurement (mass/volume)Ordered By: Cecy Gray on 10-20-2022 Creatinine [Mass/Vol] 0.96 mg/dL 0.70-1.30 [facility] Comment on above: The validity of the calculated GFR & GFRAA in patients over 70 years has not been determined. Clinical correlation is essential. Serum or plasma urea nitroge n measurement (mass/volume)Ordered By: Cecy Gray on 10-20-2022 Urea nitrogen [Mass/Vol] 27 mg/dL 7-18 [facility] Thin prep Papanicolaou smear with manual screeningOrdered By: Cecy Gray on 10-20-2022 Thin prep Papanicolaou smear with manual screening 6 5-15 [facility] Basophil percentageOrdered B y: Cecy Gray on 09-22-2022 Chloride [Moles/Vol] 106 mmol/L 98-107 [facility] Glucose [Mass/Vol] 86 mg/dL 74-[address] [facility] Potassium [Moles/Vol] 4.4 mmol/L 3.5-5.1 [facility] Sodium [Moles/Vol] 141 mmol/L 136-[address] [facility] WBC (Bld) [#/Vol] 5.1 10*3/uL 4.4-11.[address] [facility] Blood erythrocytes count (nu mber/volume)Ordered By: Cecy Gray on 09-22-2022 RBC (Bld) [#/Vol] 4.21 10*6/uL 4.6-6.2 [facility] Blood hemoglobin measurement (mass/volume)Ordered By: Cecy Gray on 09-22-2022 Hemoglobin (Bld) [Mass/Vol] 13.4 g/dL 13.0-16.5 [facility] Blood platelet mean volumeOr dered By: Cecy Gray on 09-22-2022 Platelet mean volume (Bld) [Entitic vol] 9.3 fL 6.2-12.0 [facility] Determination of erythrocyte mean corpuscular volume (MCV)Ordered By: Cecy Gray on 09-22-2022 MCV (RBC) [Entitic vol] 97.4 fL 80-94 [facility] Hematocrit Auto (Bld) [Volum e fraction]Ordered By: Cecy Gray on 09-22-2022 Hematocrit (Bld) [Volume fraction] 41.0 % 40-54 [facility] Laboratory - Chemistry and C hemistry - challengeOrdered By: Cecy Gray on 09-22-2022 CO2 [Moles/Vol] 31.0 mmol/L 21.0-32.0 [facility] Urea nitrogen/Creatinine [Mass ratio] 27.7 mg/mg 10-20 [facility] Laboratory - Hematology and Cell countsOrdered By: Cecy Gray on 09-22-2022 Erythrocyte distribution width (RBC) [Entitic vol] 43.7 fL 35.1-43.9 [facility] Erythrocyte distribution width (RBC) [Ratio] 12.3 % 11.6-14.6 [facility] MCH (RBC) [Entitic mass] 31.8 pg 27.0-32.0 [facility] MCHC Auto (RBC) [Mass/Vol]Or dered By: Cecy Gray on 09-22-2022 MCHC (RBC) [Mass/Vol] 32.7 g/dL 32-36 [facility] No Panel InformationOrdered By: Cecy Gray on 09-22-2022 Estimated GFR (MDRD) Amer 105 mL/min >60 [facility] Comment on above: GFR Calc Estimated GFR (MDRD) Non-Af Amer 87 mL/min >60 [facility] Comment on above: Non- GFR Calc Platelets bldOrdered By: Reinier Gray on 09-22-2022 Platelets (Bld) [#/Vol] 187 10*3/uL 150-450 [facility] Serum or plasma calcium farshad urement (mass/volume)Ordered By: Cecy Gray on 09-22-2022 Calcium [Mass/Vol] 8.8 mg/dL 8.5-10.[address] [facility] Serum or plasma creatinine m easurement (mass/volume)Ordered By: Cecy Gray on 09-22-2022 Creatinine [Mass/Vol] 0.90 mg/dL 0.70-1.30 [facility] Comment on above: The validity of the calculated GFR & GFRAA in patients over 70 years has not been determined. Clinical correlation is essential. Serum or plasma urea nitroge n measurement (mass/volume)Ordered By: Cecy Gray on 09-22-2022 Urea nitrogen [Mass/Vol] 25 mg/dL 7-18 [facility] Thin prep Papanicolaou smear with manual screeningOrdered By: Cecy Gray on 09-22-2022 Thin prep Papanicolaou smear with manual screening 4 5-15 [facility] Basophil percentageOrdered B y: Guilherme Butt on 08-25-2022 Chloride [Moles/Vol] 106 mmol/L 98-107 [facility] Glucose [Mass/Vol] 90 mg/dL 74-[address] [facility] Potassium [Moles/Vol] 4.3 mmol/L 3.5-5.1 [facility] Sodium [Moles/Vol] 139 mmol/L 136-[address] [facility] WBC (Bld) [#/Vol] 4.4 10*3/uL 4.4-11.[address] [facility] Blood erythrocytes count (nu mber/volume)Ordered By: Guilherme Butt on 08-25-2022 RBC (Bld) [#/Vol] 4.15 10*6/uL 4.6-6.2 [facility] Blood hemoglobin measurement (mass/volume)Ordered By: Guilherme Butt on 08-25-2022 Hemoglobin (Bld) [Mass/Vol] 13.2 g/dL 13.0-16.5 [facility] Blood platelet mean volumeOr dered By: Guilherme Butt on 08-25-2022 Platelet mean volume (Bld) [Entitic vol] 9.3 fL 6.2-12.0 [facility] Determination of erythrocyte mean corpuscular volume (MCV)Ordered By: Guilherme Butt on 08-25-2022 MCV (RBC) [Entitic vol] 97.6 fL 80-94 [facility] Hematocrit Auto (Bld) [Volum e fraction]Ordered By: Guilherme Butt on 08-25-2022 Hematocrit (Bld) [Volume fraction] 40.5 % 40-54 [facility] Laboratory - Chemistry and C hemistry - challengeOrdered By: Guilherme Butt on 08-25-2022 CO2 [Moles/Vol] 29.0 mmol/L 21.0-32.0 [facility] Cobalamin (Vitamin B12) [Mass/Vol] 239 pg/mL 211-911 [facility] Urea nitrogen/Creatinine [Mass ratio] 25.6 mg/mg 10-20 [facility] Laboratory - Hematology and Cell countsOrdered By: Guilherme Butt on 08-25-2022 Erythrocyte distribution width (RBC) [Entitic vol] 45.1 fL 35.1-43.9 [facility] Erythrocyte distribution width (RBC) [Ratio] 12.5 % 11.6-14.6 [facility] MCH (RBC) [Entitic mass] 31.8 pg 27.0-32.0 [facility] MCHC Auto (RBC) [Mass/Vol]Or dered By: Guilherme Butt on 08-25-2022 MCHC (RBC) [Mass/Vol] 32.6 g/dL 32-36 [facility] No Panel InformationOrdered By: Guilherme Butt on 08-25-2022 Estimated GFR (MDRD) Amer 78 mL/min >60 [facility] Comment on above: GFR Calc Estimated GFR (MDRD) Non-Af Amer 64 mL/min >60 [facility] Comment on above: Non- GFR Calc Platelets bldOrdered By: Jamaal Butt on 08-25-2022 Platelets (Bld) [#/Vol] 176 10*3/uL 150-450 [facility] Serum or plasma calcium farshad urement (mass/volume)Ordered By: Guilherme Butt on 08-25-2022 Calcium [Mass/Vol] 8.7 mg/dL 8.5-10.[address] [facility] Serum or plasma creatinine m easurement (mass/volume)Ordered By: Guilherme Butt on 08-25-2022 Creatinine [Mass/Vol] 1.17 mg/dL 0.70-1.30 [facility] Comment on above: The validity of the calculated GFR & GFRAA in patients over 70 years has not been determined. Clinical correlation is essential. Serum or plasma urea nitroge n measurement (mass/volume)Ordered By: Guilherme Butt on 08-25-2022 Urea nitrogen [Mass/Vol] 30 mg/dL 7-18 [facility] Thin prep Papanicolaou smear with manual screeningOrdered By: Guilherme Butt on 08-25-2022 Thin prep Papanicolaou smear with manual screening 4 5-15 [facility] Absolute lymphocyte countOrd ered By: Guilherme Butt on 07-21-2022 Lymphocytes Auto (Unsp spec) [#/Vol] 1.11 10*3/uL 0.83-4.51 [facility] Basophil percentageOrdered B y: Guilherme Butt on 07-21-2022 Basophils/100 WBC (Bld) 0.5 % 0-1 [facility] Chloride [Moles/Vol] 106 mmol/L 98-107 [facility] Eosinophils/100 WBC (Bld) 3.6 % 0-5 [facility] Glucose [Mass/Vol] 95 mg/dL 74-[address] [facility] Neutrophils (Bld) [#/Vol] 2.5 10*3/uL 2.0-7.7 [facility] Neutrophils/100 WBC (Bld) 59.1 % 47-70 [facility] Potassium [Moles/Vol] 4.2 mmol/L 3.5-5.1 [facility] Sodium [Moles/Vol] 142 mmol/L 136-[address] [facility] WBC (Bld) [#/Vol] 4.2 10*3/uL 4.4-11.[address] [facility] Blood erythrocytes count (nu mber/volume)Ordered By: Guilherme Butt on 07-21-2022 RBC (Bld) [#/Vol] 4.10 10*6/uL 4.6-6.2 [facility] Blood hemoglobin measurement (mass/volume)Ordered By: Guilherme Butt on 07-21-2022 Hemoglobin (Bld) [Mass/Vol] 13.4 g/dL 13.0-16.5 [facility] Blood lymphocytes/100 leukoc ytesOrdered By: Guilherme Butt on 07-21-2022 Lymphocytes/100 WBC (Bld) 26.7 % 19-41 [facility] Blood monocytes/100 leukocyt esOrdered By: Guilherme Butt on 07-21-2022 Monocytes/100 WBC (Bld) 9.6 % 0-10 [facility] Blood platelet mean volumeOr dered By: Guilherme Butt on 07-21-2022 Platelet mean volume (Bld) [Entitic vol] 9.3 fL 6.2-12.0 [facility] Determination of erythrocyte mean corpuscular volume (MCV)Ordered By: Guilherme Butt on 07-21-2022 MCV (RBC) [Entitic vol] 95.1 fL 80-94 [facility] Hematocrit Auto (Bld) [Volum e fraction]Ordered By: Guilherme Butt on 07-21-2022 Hematocrit (Bld) [Volume fraction] 39.0 % 40-54 [facility] Laboratory - Chemistry and C hemistry - challengeOrdered By: kieranvalley headdmitri Butt on 07-21-2022 CO2 [Moles/Vol] 28.0 mmol/L 21.0-32.0 [facility] Urea nitrogen/Creatinine [Mass ratio] 30.0 mg/mg 10-20 [facility] Laboratory - Hematology and Cell countsOrdered By: Guilherme Butt on 07-21-2022 Erythrocyte distribution width (RBC) [Entitic vol] 44.6 fL 35.1-43.9 [facility] Erythrocyte distribution width (RBC) [Ratio] 12.8 % 11.6-14.6 [facility] Immature granulocytes/100 WBC (Bld) 0.500 % 0.0-0.9 [facility] Comment on above: IG% - Immature Granu locytes (promyelocytes, myelocytes and metamyelocytes) > 1% indicates that a LEFT SHIFT is Present. MCH (RBC) [Entitic mass] 32.7 pg 27.0-32.0 [facility] Nucleated RBC/100 WBC (Bld) [Ratio] 0 % 0-5 [facility] MCHC Auto (RBC) [Mass/Vol]Or dered By: Guilherme Butt on 07-21-2022 MCHC (RBC) [Mass/Vol] 34.4 g/dL 32-36 [facility] No Panel InformationOrdered By: Guilherme Butt on 07-21-2022 Estimated GFR (MDRD) Amer 101 mL/min >60 [facility] Comment on above: GFR Calc Estimated GFR (MDRD) Non-Af Amer 84 mL/min >60 [facility] Comment on above: Non- GFR Calc Platelets bldOrdered By: Jamaal Butt on 07-21-2022 Platelets (Bld) [#/Vol] 155 10*3/uL 150-450 [facility] Serum or plasma calcium farshad urement (mass/volume)Ordered By: Guilherme Butt on 07-21-2022 Calcium [Mass/Vol] 8.7 mg/dL 8.5-10.[address] [facility] Serum or plasma creatinine m easurement (mass/volume)Ordered By: Guilherme Butt on 07-21-2022 Creatinine [Mass/Vol] 0.93 mg/dL 0.70-1.30 [facility] Comment on above: The validity of the calculated GFR & GFRAA in patients over 70 years has not been determined. Clinical correlation is essential. Serum or plasma urea nitroge n measurement (mass/volume)Ordered By: Guilherme Butt on 07-21-2022 Urea nitrogen [Mass/Vol] 28 mg/dL 7-18 [facility] Thin prep Papanicolaou smear with manual screeningOrdered By: Guilherme Butt on 07-21-2022 Thin prep Papanicolaou smear with manual screening 8 5-15 [facility] Basophil percentageOrdered B y: [facility] on 06-23-2022 Chloride [Moles/Vol] 105 mmol/L 98-107 [facility] Glucose [Mass/Vol] 100 mg/dL 74-[address] [facility] Comment on above: Fasting Glucose resu lt from 100 to 125 mg/dL suggests IMPAIRED HOMEOSTASIS per A.D.A. criteria. Potassium [Moles/Vol] 4.5 mmol/L 3.5-5.1 [facility] Sodium [Moles/Vol] 142 mmol/L 136-[address] [facility] WBC (Bld) [#/Vol] 6.2 10*3/uL 4.4-11.[address] [facility] Blood erythrocytes count (nu mber/volume)Ordered By: Howard Living on 06-23-2022 RBC (Bld) [#/Vol] 4.28 10*6/uL 4.6-6.2 [facility] Blood hemoglobin measurement (mass/volume)Ordered By: [facility] on 06-23-2022 Hemoglobin (Bld) [Mass/Vol] 13.6 g/dL 13.0-16.5 [facility] Blood platelet mean volumeOr dered By: [facility] on 06-23-2022 Platelet mean volume (Bld) [Entitic vol] 9.3 fL 6.2-12.0 [facility] Determination of erythrocyte mean corpuscular volume (MCV)Ordered By: [facility] on 06-23-2022 MCV (RBC) [Entitic vol] 97.9 fL 80-94 [facility] Hematocrit Auto (Bld) [Volum e fraction]Ordered By: [facility] on 06-23-2022 Hematocrit (Bld) [Volume fraction] 41.9 % 40-54 [facility] Laboratory - Chemistry and C hemistry - challengeOrdered By: [facility] on 06-23-2022 CO2 [Moles/Vol] 32.0 mmol/L 21.0-32.0 [facility] Urea nitrogen/Creatinine [Mass ratio] 33.0 mg/mg 10-20 [facility] Laboratory - Hematology and Cell countsOrdered By: [facility] on 06-23-2022 Erythrocyte distribution width (RBC) [Entitic vol] 45.8 fL 35.1-43.9 [facility] Erythrocyte distribution width (RBC) [Ratio] 12.9 % 11.6-14.6 [facility] MCH (RBC) [Entitic mass] 31.8 pg 27.0-32.0 [facility] MCHC Auto (RBC) [Mass/Vol]Or dered By: [facility] on 06-23-2022 MCHC (RBC) [Mass/Vol] 32.5 g/dL 32-36 [facility] No Panel InformationOrdered By: [facility] on 06-23-2022 Estimated GFR (MDRD) Amer 84 mL/min >60 [facility] Comment on above: GFR Calc Estimated GFR (MDRD) Non-Af Amer 70 mL/min >60 [facility] Comment on above: Non- GFR Calc Platelets bldOrdered By: Sander parkinson [facility] on 06-23-2022 Platelets (Bld) [#/Vol] 183 10*3/uL 150-450 [facility] Serum or plasma calcium farshad urement (mass/volume)Ordered By: [facility] on 06-23-2022 Calcium [Mass/Vol] 9.2 mg/dL 8.5-10.[address] [facility] Serum or plasma creatinine m easurement (mass/volume)Ordered By: [facility] on 06-23-2022 Creatinine [Mass/Vol] 1.09 mg/dL 0.70-1.30 [facility] Comment on above: The validity of the calculated GFR & GFRAA in patients over 70 years has not been determined. Clinical correlation is essential. Serum or plasma urea nitroge n measurement (mass/volume)Ordered By: [facility] on 06-23-2022 Urea nitrogen [Mass/Vol] 36 mg/dL 7-18 [facility] Thin prep Papanicolaou smear with manual screeningOrdered By: [facility] on 06-23-2022 Thin prep Papanicolaou smear with manual screening 5 5-15 [facility] Basophil percentageOrdered B y: Maikel Mosquera on 05-26-2022 Chloride [Moles/Vol] 106 mmol/L 98-107 [facility] Glucose [Mass/Vol] 100 mg/dL 74-[address] [facility] Comment on above: Fasting Glucose resu lt from 100 to 125 mg/dL suggests IMPAIRED HOMEOSTASIS per A.D.A. criteria. Potassium [Moles/Vol] 4.8 mmol/L 3.5-5.1 [facility] Sodium [Moles/Vol] 141 mmol/L 136-[address] [facility] WBC (Bld) [#/Vol] 5.1 10*3/uL 4.4-11.[address] [facility] Blood erythrocytes count (nu mber/volume)Ordered By: Maikel Mosquera on 05-26-2022 RBC (Bld) [#/Vol] 4.34 10*6/uL 4.6-6.2 [facility] Blood hemoglobin measurement (mass/volume)Ordered By: Maikel Mosquera on 05-26-2022 Hemoglobin (Bld) [Mass/Vol] 13.8 g/dL 13.0-16.5 [facility] Blood platelet mean volumeOr dered By: Maikel Mosquera on 05-26-2022 Platelet mean volume (Bld) [Entitic vol] 9.5 fL 6.2-12.0 [facility] Determination of erythrocyte mean corpuscular volume (MCV)Ordered By: Maikel Mosquera on 05-26-2022 MCV (RBC) [Entitic vol] 96.3 fL 80-94 [facility] Hematocrit Auto (Bld) [Volum e fraction]Ordered By: Maikel Mosquera on 05-26-2022 Hematocrit (Bld) [Volume fraction] 41.8 % 40-54 [facility] Laboratory - Chemistry and C hemistry - challengeOrdered By: Maikel Mosquera on 05-26-2022 CO2 [Moles/Vol] 30.0 mmol/L 21.0-32.0 [facility] Urea nitrogen/Creatinine [Mass ratio] 33.7 mg/mg 10-20 [facility] Laboratory - Hematology and Cell countsOrdered By: Maikel Mosquera on 05-26-2022 Erythrocyte distribution width (RBC) [Entitic vol] 44.0 fL 35.1-43.9 [facility] Erythrocyte distribution width (RBC) [Ratio] 12.5 % 11.6-14.6 [facility] MCH (RBC) [Entitic mass] 31.8 pg 27.0-32.0 [facility] MCHC Auto (RBC) [Mass/Vol]Or dered By: Maikel Mosquera on 05-26-2022 MCHC (RBC) [Mass/Vol] 33.0 g/dL 32-36 [facility] No Panel InformationOrdered By: Maikel Mosquera on 05-26-2022 Estimated GFR (MDRD) Amer 89 mL/min >60 [facility] Comment on above: GFR Calc Estimated GFR (MDRD) Non-Af Amer 74 mL/min >60 [facility] Comment on above: Non- GFR Calc Platelets bldOrdered By: Chance Mosquera on 05-26-2022 Platelets (Bld) [#/Vol] 185 10*3/uL 150-450 [facility] Serum or plasma calcium farshad urement (mass/volume)Ordered By: Maikel Mosquera on 05-26-2022 Calcium [Mass/Vol] 9.0 mg/dL 8.5-10.[address] [facility] Serum or plasma creatinine m easurement (mass/volume)Ordered By: Maikel Mosquera on 05-26-2022 Creatinine [Mass/Vol] 1.04 mg/dL 0.70-1.30 [facility] Comment on above: The validity of the calculated GFR & GFRAA in patients over 70 years has not been determined. Clinical correlation is essential. Serum or plasma urea nitroge n measurement (mass/volume)Ordered By: Maikel Mosquera on 05-26-2022 Urea nitrogen [Mass/Vol] 35 mg/dL 7-18 [facility] Thin prep Papanicolaou smear with manual screeningOrdered By: Maikel Mosquera on 05-26-2022 Thin prep Papanicolaou smear with manual screening 5 5-15 [facility] Basophil percentageOrdered B y: Maikel Mosquera on 04-21-2022 Chloride [Moles/Vol] 108 mmol/L 98-107 [facility] Glucose [Mass/Vol] 104 mg/dL 74-[address] [facility] Comment on above: Fasting Glucose resu lt from 100 to 125 mg/dL suggests IMPAIRED HOMEOSTASIS per A.D.A. criteria. Potassium [Moles/Vol] 4.3 mmol/L 3.5-5.1 [facility] Sodium [Moles/Vol] 142 mmol/L 136-[address] [facility] WBC (Bld) [#/Vol] 4.4 10*3/uL 4.4-11.[address] [facility] Blood erythrocytes count (nu mber/volume)Ordered By: Maikel Mosquera on 04-21-2022 RBC (Bld) [#/Vol] 4.18 10*6/uL 4.6-6.2 [facility] Blood hemoglobin measurement (mass/volume)Ordered By: Maikel Mosquera on 04-21-2022 Hemoglobin (Bld) [Mass/Vol] 13.2 g/dL 13.0-16.5 [facility] Blood platelet mean volumeOr dered By: Maikel Mosquera on 04-21-2022 Platelet mean volume (Bld) [Entitic vol] 9.6 fL 6.2-12.0 [facility] Determination of erythrocyte mean corpuscular volume (MCV)Ordered By: Maikel Mosquera on 04-21-2022 MCV (RBC) [Entitic vol] 97.1 fL 80-94 [facility] Hematocrit Auto (Bld) [Volum e fraction]Ordered By: Maikel Mosquera on 04-21-2022 Hematocrit (Bld) [Volume fraction] 40.6 % 40-54 [facility] Laboratory - Chemistry and C hemistry - challengeOrdered By: Maikel Mosquera on 04-21-2022 CO2 [Moles/Vol] 30.0 mmol/L 21.0-32.0 [facility] Urea nitrogen/Creatinine [Mass ratio] 33.0 mg/mg 10-20 [facility] Laboratory - Hematology and Cell countsOrdered By: Maikel Mosquera on 04-21-2022 Erythrocyte distribution width (RBC) [Entitic vol] 46.2 fL 35.1-43.9 [facility] Erythrocyte distribution width (RBC) [Ratio] 12.9 % 11.6-14.6 [facility] MCH (RBC) [Entitic mass] 31.6 pg 27.0-32.0 [facility] MCHC Auto (RBC) [Mass/Vol]Or dered By: Maikel Mosquera on 04-21-2022 MCHC (RBC) [Mass/Vol] 32.5 g/dL 32-36 [facility] No Panel InformationOrdered By: Maikel Mosquera on 04-21-2022 Estimated GFR (MDRD) Amer 90 mL/min >60 [facility] Comment on above: GFR Calc Estimated GFR (MDRD) Non-Af Amer 75 mL/min >60 [facility] Comment on above: Non- GFR Calc Platelets bldOrdered By: Chance Mosquera on 04-21-2022 Platelets (Bld) [#/Vol] 177 10*3/uL 150-450 [facility] Serum or plasma calcium farshad urement (mass/volume)Ordered By: Maikel Mosquera on 04-21-2022 Calcium [Mass/Vol] 9.1 mg/dL 8.5-10.[address] [facility] Serum or plasma creatinine m easurement (mass/volume)Ordered By: Maikel Mosquera on 04-21-2022 Creatinine [Mass/Vol] 1.03 mg/dL 0.70-1.30 [facility] Comment on above: The validity of the calculated GFR & GFRAA in patients over 70 years has not been determined. Clinical correlation is essential. Serum or plasma urea nitroge n measurement (mass/volume)Ordered By: Maikel Mosquera on 04-21-2022 Urea nitrogen [Mass/Vol] 34 mg/dL 7-18 [facility] Thin prep Papanicolaou smear with manual screeningOrdered By: Maikel Mosquera on 04-21-2022 Thin prep Papanicolaou smear with manual screening 4 5-15 [facility] Absolute lymphocyte countOrd ered By: Dr. Sanchez on 04-03-2022 Lymphocytes Auto (Unsp spec) [#/Vol] 1.15 10*3/uL 0.83-4.51 [facility] Basophil percentageOrdered B y: Dr. Sanchez on 04-03-2022 Basophils/100 WBC (Bld) 0.4 % 0-1 [facility] Chloride [Moles/Vol] 106 mmol/L 98-107 [facility] Eosinophils/100 WBC (Bld) 3.3 % 0-5 [facility] Glucose [Mass/Vol] 140 mg/dL 74-[address] [facility] Comment on above: Fasting Glucose resu lt greater than or equal to 126 mg/dL suggests DIABETES MELLITUS per A.D.A. criteria. Neutrophils (Bld) [#/Vol] 2.9 10*3/uL 2.0-7.7 [facility] Neutrophils/100 WBC (Bld) 63.1 % 47-70 [facility] Potassium [Moles/Vol] 4.2 mmol/L 3.5-5.1 [facility] Sodium [Moles/Vol] 142 mmol/L 136-[address] [facility] WBC (Bld) [#/Vol] 4.6 10*3/uL 4.4-11.[address] [facility] Blood erythrocytes count (nu mber/volume)Ordered By: Dr. Sanchez on 04-03-2022 RBC (Bld) [#/Vol] 4.45 10*6/uL 4.6-6.2 [facility] Blood hemoglobin measurement (mass/volume)Ordered By: Dr. Sanchez on 04-03-2022 Hemoglobin (Bld) [Mass/Vol] 14.1 g/dL 13.0-16.5 [facility] Blood lymphocytes/100 leukoc ytesOrdered By: Dr. Sanchez on 04-03-2022 Lymphocytes/100 WBC (Bld) 25.3 % 19-41 [facility] Blood monocytes/100 leukocyt esOrdered By: Dr. Sanchez on 04-03-2022 Monocytes/100 WBC (Bld) 7.7 % 0-10 [facility] Blood platelet mean volumeOr dered By: Dr. Sanchez on 04-03-2022 Platelet mean volume (Bld) [Entitic vol] 9.3 fL 6.2-12.0 [facility] Determination of erythrocyte mean corpuscular volume (MCV)Ordered By: Dr. Sanchez on 04-03-2022 MCV (RBC) [Entitic vol] 95.5 fL 80-94 [facility] Hematocrit Auto (Bld) [Volum e fraction]Ordered By: Dr. Sanchez on 04-03-2022 Hematocrit (Bld) [Volume fraction] 42.5 % 40-54 [facility] Laboratory - Chemistry and C hemistry - challengeOrdered By: Dr. Sanchez on 04-03-2022 CO2 [Moles/Vol] 31.0 mmol/L 21.0-32.0 [facility] Urea nitrogen/Creatinine [Mass ratio] 30.7 mg/mg 10-20 [facility] Laboratory - Hematology and Cell countsOrdered By: Dr. Sanchez on 04-03-2022 Erythrocyte distribution width (RBC) [Entitic vol] 45.9 fL 35.1-43.9 [facility] Erythrocyte distribution width (RBC) [Ratio] 12.9 % 11.6-14.6 [facility] Immature granulocytes/100 WBC (Bld) 0.200 % 0.0-0.9 [facility] Comment on above: IG% - Immature Granu locytes (promyelocytes, myelocytes and metamyelocytes) > 1% indicates that a LEFT SHIFT is Present. MCH (RBC) [Entitic mass] 31.7 pg 27.0-32.0 [facility] Nucleated RBC/100 WBC (Bld) [Ratio] 0 % 0-5 [facility] MCHC Auto (RBC) [Mass/Vol]Or dered By: Dr. Sanchez on 04-03-2022 MCHC (RBC) [Mass/Vol] 33.2 g/dL 32-36 [facility] No Panel InformationOrdered By: Dr. Sanchez on 04-03-2022 Troponin I High Sensitivity 7 pg/mL 3.0-78.0 [facility] Comment on above: Please Note: [place] t Units and Gender Specific Reference Ranges. For more information see Policy Stat Procedure [place] High Sensitivity Troponin (TNIH) and attachments. Estimated Creatinine Clearance Calc 70.39 ml/min [facility] Estimated GFR (MDRD) Amer 96 mL/min >60 [facility] Comment on above: GFR Calc Estimated GFR (MDRD) Non-Af Amer 79 mL/min >60 [facility] Comment on above: Non- GFR Calc Platelets bldOrdered By: Dr. Sanchez on 04-03-2022 Platelets (Bld) [#/Vol] 173 10*3/uL 150-450 [facility] Serum or plasma calcium farshad urement (mass/volume)Ordered By: Dr. Sanchez on 04-03-2022 Calcium [Mass/Vol] 9.1 mg/dL 8.5-10.[address] [facility] Serum or plasma creatinine m easurement (mass/volume)Ordered By: Dr. Sanchez on 04-03-2022 Creatinine [Mass/Vol] 0.98 mg/dL 0.70-1.30 [facility] Comment on above: The validity of the calculated GFR & GFRAA in patients over 70 years has not been determined. Clinical correlation is essential. Serum or plasma urea nitroge n measurement (mass/volume)Ordered By: Dr. Sanchez on 04-03-2022 Urea nitrogen [Mass/Vol] 30 mg/dL 7-18 [facility] Thin prep Papanicolaou smear with manual screeningOrdered By: Dr. Sanchez on 04-03-2022 Thin prep Papanicolaou smear with manual screening 5 5-15 [facility] Basophil percentageOrdered B y: Maikel Mosquera on 03-24-2022 Chloride [Moles/Vol] 105 mmol/L 98-107 [facility] Glucose [Mass/Vol] 85 mg/dL 74-[address] [facility] Potassium [Moles/Vol] 4.7 mmol/L 3.5-5.1 [facility] Sodium [Moles/Vol] 140 mmol/L 136-[address] [facility] WBC (Bld) [#/Vol] 4.9 10*3/uL 4.4-11.[address] [facility] Blood erythrocytes count (nu mber/volume)Ordered By: Maikel Mosquera on 03-24-2022 RBC (Bld) [#/Vol] 4.14 10*6/uL 4.6-6.2 [facility] Blood hemoglobin measurement (mass/volume)Ordered By: Maikel Mosquera on 03-24-2022 Hemoglobin (Bld) [Mass/Vol] 13.0 g/dL 13.0-16.5 [facility] Blood platelet mean volumeOr dered By: Maikel Mosquera on 03-24-2022 Platelet mean volume (Bld) [Entitic vol] 9.5 fL 6.2-12.0 [facility] Determination of erythrocyte mean corpuscular volume (MCV)Ordered By: Maikel Mosquera on 03-24-2022 MCV (RBC) [Entitic vol] 94.9 fL 80-94 [facility] Hematocrit Auto (Bld) [Volum e fraction]Ordered By: Maikel Mosquera on 03-24-2022 Hematocrit (Bld) [Volume fraction] 39.3 % 40-54 [facility] Laboratory - Chemistry and C hemistry - challengeOrdered By: Maikel Mosquera on 03-24-2022 CO2 [Moles/Vol] 30.0 mmol/L 21.0-32.0 [facility] Urea nitrogen/Creatinine [Mass ratio] 29.8 mg/mg 10-20 [facility] Laboratory - Hematology and Cell countsOrdered By: Maikel Mosquera on 03-24-2022 Erythrocyte distribution width (RBC) [Entitic vol] 45.6 fL 35.1-43.9 [facility] Erythrocyte distribution width (RBC) [Ratio] 13.1 % 11.6-14.6 [facility] MCH (RBC) [Entitic mass] 31.4 pg 27.0-32.0 [facility] MCHC Auto (RBC) [Mass/Vol]Or dered By: Maikel Mosquera on 03-24-2022 MCHC (RBC) [Mass/Vol] 33.1 g/dL 32-36 [facility] No Panel InformationOrdered By: Maikel Mosquera on 03-24-2022 Estimated GFR (MDRD) Amer 89 mL/min >60 [facility] Comment on above: GFR Calc Estimated GFR (MDRD) Non-Af Amer 74 mL/min >60 [facility] Comment on above: Non- GFR Calc Platelets bldOrdered By: Chance Mosquera on 03-24-2022 Platelets (Bld) [#/Vol] 169 10*3/uL 150-450 [facility] Serum or plasma calcium farshad urement (mass/volume)Ordered By: Maikel Mosquera on 03-24-2022 Calcium [Mass/Vol] 8.8 mg/dL 8.5-10.[address] [facility] Serum or plasma creatinine m easurement (mass/volume)Ordered By: Maikel Mosquera on 03-24-2022 Creatinine [Mass/Vol] 1.04 mg/dL 0.70-1.30 [facility] Comment on above: The validity of the calculated GFR & GFRAA in patients over 70 years has not been determined. Clinical correlation is essential. Serum or plasma urea nitroge n measurement (mass/volume)Ordered By: Maikel Mosquera on 03-24-2022 Urea nitrogen [Mass/Vol] 31 mg/dL 7-18 [facility] Thin prep Papanicolaou smear with manual screeningOrdered By: Maikel Mosquera on 03-24-2022 Thin prep Papanicolaou smear with manual screening 5 5-15 [facility] Basophil percentageOrdered B y: Maikel Mosquera on 02-24-2022 Chloride [Moles/Vol] 107 mmol/L 98-107 [facility] Glucose [Mass/Vol] 87 mg/dL 74-[address] [facility] Potassium [Moles/Vol] 4.8 mmol/L 3.5-5.1 [facility] Sodium [Moles/Vol] 141 mmol/L 136-[address] [facility] WBC (Bld) [#/Vol] 5.2 10*3/uL 4.4-11.[address] [facility] Blood erythrocytes count (nu mber/volume)Ordered By: Maikel Mosquera on 02-24-2022 RBC (Bld) [#/Vol] 4.39 10*6/uL 4.6-6.2 [facility] Blood hemoglobin measurement (mass/volume)Ordered By: Maikel Mosquera on 02-24-2022 Hemoglobin (Bld) [Mass/Vol] 14.3 g/dL 13.0-16.5 [facility] Blood platelet mean volumeOr dered By: Maikel Mosquera on 02-24-2022 Platelet mean volume (Bld) [Entitic vol] 9.2 fL 6.2-12.0 [facility] Determination of erythrocyte mean corpuscular volume (MCV)Ordered By: Maikel Mosquera on 02-24-2022 MCV (RBC) [Entitic vol] 95.4 fL 80-94 [facility] [facility] Auto (Bld) [Volum e fraction]Ordered By: Maikel Mosquera on 02-24-2022 Hematocrit (Bld) [Volume fraction] 41.9 % 40-54 [facility] Laboratory - Chemistry and C hemistry - challengeOrdered By: Maikel Mosquera on 02-24-2022 CO2 [Moles/Vol] 30.0 mmol/L 21.0-32.0 [facility] Urea nitrogen/Creatinine [Mass ratio] 27.5 mg/mg 10-20 [facility] Laboratory - Hematology and Cell countsOrdered By: Maikel Mosquera on 02-24-2022 Erythrocyte distribution width (RBC) [Entitic vol] 44.2 fL 35.1-43.9 [facility] Erythrocyte distribution width (RBC) [Ratio] 12.6 % 11.6-14.6 [facility] MCH (RBC) [Entitic mass] 32.6 pg 27.0-32.0 [facility] MCHC Auto (RBC) [Mass/Vol]Or dered By: Maikel Mosquera on 02-24-2022 MCHC (RBC) [Mass/Vol] 34.1 g/dL 32-36 [facility] No Panel InformationOrdered By: Maikel Mosquera on 02-24-2022 Estimated GFR (MDRD) Amer 91 mL/min >60 [facility] Comment on above: GFR Calc Estimated GFR (MDRD) Non-Af Amer 75 mL/min >60 [facility] Comment on above: Non- GFR Calc Platelets bldOrdered By: Chance Mosquera on 02-24-2022 Platelets (Bld) [#/Vol] 162 10*3/uL 150-450 [facility] Serum or plasma calcium farshad urement (mass/volume)Ordered By: Maikel Mosquera on 02-24-2022 Calcium [Mass/Vol] 9.1 mg/dL 8.5-10.[address] [facility] Serum or plasma creatinine m easurement (mass/volume)Ordered By: Maikel Mosquera on 02-24-2022 Creatinine [Mass/Vol] 1.02 mg/dL 0.70-1.30 [facility] Comment on above: The validity of the calculated GFR & GFRAA in patients over 70 years has not been determined. Clinical correlation is essential. Serum or plasma urea nitroge n measurement (mass/volume)Ordered By: Maikel Mosquera on 02-24-2022 Urea nitrogen [Mass/Vol] 28 mg/dL 7-18 [facility] Thin prep Papanicolaou smear with manual screeningOrdered By: Maikel Mosquera on 02-24-2022 Thin prep Papanicolaou smear with manual screening 4 5-15 [facility] Basophil percentageon 2021 Bilirubin [Mass/Vol] 0.50 mg/dL 0.20-1.00 [facility] Work Phone: Comment on above: For patients on eltr ombopag therapy, use of Dimension [place] TBIL is not recommended. Cholesterol [Mass/Vol] 184 mg/dL <200 [facility] Work Phone: Comment on above: <200 mg/dL Desirable 200-240 mg/dL Borderline >240 mg/dL High Risk Protein [Mass/Vol] 6.3 g/dL 6.4-8.[address] [facility] Work Phone: Triglyceride [Mass/Vol] 103 mg/dL <199 [facility] Work Phone: Comment on above: The drugs N-Acetylcy steine and Metamizole may falsely depress this assay.Serum Triglycerides Reference Interval Normal <150 mg/dL Borderline high 150 - 199 mg/dL High 200 - 499 mg/dL Very High > or = 500 mg/dL Direct bilirubinon Bilirubin.direct [Mass/Vol] 0.12 mg/dL 0.00-0.30 [facility] Work Phone: Laboratory - Chemistry and C hemistry - challengeon 02-07-2022 ALP [Catalytic activity/Vol] 118 U/L 45-117 [facility] Work Phone: ALT [Catalytic activity/Vol] 8 U/L 16-61 [facility] Work Phone: Free T4 [Mass/Vol] 0.87 ng/dL 0.76-1.[address] [facility] Work Phone: Globulin (S) [Mass/Vol] 3.0 g/dL 2.2-4.2 [facility] Work Phone: No Panel Informationon 02-07 Thyroid Stimulating Hormone (TSH) 0.81 uIU/mL 0.358-3.74 [facility] Work Phone: Serum or plasma albumin farshad urement (mass/volume)on 02-07-2022 Albumin [Mass/Vol] 3.3 g/dL 3.2-5.[address] [facility] Work Phone: Serum or plasma cholesterol in HDL measurement (mass/volume)on 02-07-2022 Cholesterol in HDL [Mass/Vol] 44 mg/dL >40 [facility] Work Phone: Comment on above: The drugs N-Acetylcy steine and Metamizole may falsely depress this assay. Reference Range HDL <40 mg/dL Low HDL Cholesterol HDL >or= 60 mg/dL High HDL Cholesterol Serum or plasma cholesterol in VLDL measurement (mass/volume)on 02-07-2022 Cholesterol in VLDL [Mass/Vol] 21 mg/dL 5-40 [facility] Work Phone: Serum or plasma low density lipoprotein (LDL) cholesterol measurement (mass/volume)on 02-07-2022 Cholesterol in LDL [Mass/Vol] 119 mg/dL 0-130 [facility] Work Phone: Thin prep Papanicolaou smear with manual screeningon 02-07-2022 Thin prep Papanicolaou smear with manual screening 12 U/L 15-37 [facility] Work Phone: Whole blood hemoglobin A1c/t otal hemoglobin ratio (mass fraction)on 02-07-2022 HbA1c (Bld) [Mass fraction] 5.6 % 3.8-5.6 [facility] Work Phone: Comment on above: Normal < 5.7 % Predi abetic 5.7 - 6.4 % Diabetic >or= 6.5 % Please note range changes. Basophil percentageon 2021 Chloride [Moles/Vol] 104 mmol/L 98-107 [facility]: Glucose [Mass/Vol] 87 mg/dL 74-[address] [facility] Work Phone: Potassium [Moles/Vol] 4.3 mmol/L 3.5-5.1 [facility] Work Phone: Sodium [Moles/Vol] 140 mmol/L 136-[address] [facility] Work Phone: WBC (Bld) [#/Vol] 4.6 10*3/uL 4.4-11.[address] [facility] Work Phone: Blood erythrocytes count (nu mber/volume)on 01-20-2022 RBC (Bld) [#/Vol] 4.17 10*6/uL 4.6-6.2 [facility] Work Phone: Blood hemoglobin measurement (mass/volume)on 01-20-2022 Hemoglobin (Bld) [Mass/Vol] 13.2 g/dL 13.0-16.5 [facility] Work Phone: Blood platelet mean volumeon 01-20-2022 Platelet mean volume (Bld) [Entitic vol] 9.2 fL 6.2-12.0 [facility] Work Phone: Determination of erythrocyte mean corpuscular volume (MCV)on 01-20-2022 MCV (RBC) [Entitic vol] 93.0 fL 80-94 [facility] Work Phone: Hematocrit Auto (Bld) [Volum e fraction]on 01-20-2022 Hematocrit (Bld) [Volume fraction] 38.8 % 40-54 [facility] Work Phone: Laboratory - Chemistry and C hemistry - challengeon 01-20-2022 CO2 [Moles/Vol] 29.0 mmol/L 21.0-32.0 [facility] Work Phone: Urea nitrogen/Creatinine [Mass ratio] 28.6 mg/mg 10-20 [facility] Work Phone: Laboratory - Hematology and Cell countson 01-20-2022 Erythrocyte distribution width (RBC) [Entitic vol] 42.7 fL 35.1-43.9 [facility] Work Phone: Erythrocyte distribution width (RBC) [Ratio] 12.6 % 11.6-14.6 [facility] Work Phone: MCH (RBC) [Entitic mass] 31.7 pg 27.0-32.0 [facility] Work Phone: MCHC Auto (RBC) [Mass/Vol]on 01-20-2022 MCHC (RBC) [Mass/Vol] 34.0 g/dL 32-36 [facility] Work Phone: No Panel Informationon 01-20 Estimated GFR (MDRD) Amer 100 mL/min >60 [facility] Work Phone: Comment on above: GFR Calc Estimated GFR (MDRD) Non-Af Amer 82 mL/min >60 [facility] Work Phone: Comment on above: Non- GFR Calc Platelets bldon 01-20-2022 Platelets (Bld) [#/Vol] 178 10*3/uL 150-450 [facility] Work Phone: Serum or plasma calcium farshad urement (mass/volume)on 01-20-2022 Calcium [Mass/Vol] 9.0 mg/dL 8.5-10.[address] [facility] Work Phone: Serum or plasma creatinine m easurement (mass/volume)on 01-20-2022 Creatinine [Mass/Vol] 0.94 mg/dL 0.70-1.30 [facility] Work Phone: Comment on above: The validity of the calculated GFR & GFRAA in patients over 70 years has not been determined. Clinical correlation is essential. Serum or plasma urea nitroge n measurement (mass/volume)on 01-20-2022 Urea nitrogen [Mass/Vol] 27 mg/dL 7-18 [facility] Work Phone: Thin prep Papanicolaou smear with manual screeningon 01-20-2022 Thin prep Papanicolaou smear with manual screening 7 5-15 [facility] Work Phone: Basophil percentageon 2021 Chloride [Moles/Vol] 105 mmol/L 98-107 [facility] Work Phone: Glucose [Mass/Vol] 89 mg/dL 74-[address] [facility] Work Phone: Potassium [Moles/Vol] 4.2 mmol/L 3.5-5.1 [facility] Work Phone: Sodium [Moles/Vol] 138 mmol/L 136-[address] [facility] Work Phone: WBC (Bld) [#/Vol] 4.2 10*3/uL 4.4-11.[address] [facility] Work Phone: Blood erythrocytes count (nu mber/volume)on 12-23-2021 RBC (Bld) [#/Vol] 4.15 10*6/uL 4.6-6.2 [facility] Work Phone: Blood hemoglobin measurement (mass/volume)on 12-23-2021 Hemoglobin (Bld) [Mass/Vol] 13.5 g/dL 13.0-16.5 [facility] Work Phone: Blood platelet mean volumeon 12-23-2021 Platelet mean volume (Bld) [Entitic vol] 9.3 fL 6.2-12.0 [facility] Work Phone: Determination of erythrocyte mean corpuscular volume (MCV)on 12-23-2021 MCV (RBC) [Entitic vol] 94.5 fL 80-94 [facility] Work Phone: Hematocrit Auto (Bld) [Volum e fraction]on 12-23-2021 Hematocrit (Bld) [Volume fraction] 39.2 % 40-54 [facility] Work Phone: Laboratory - Chemistry and C hemistry - challengeon 12-23-2021 CO2 [Moles/Vol] 29.0 mmol/L 21.0-32.0 [facility] Work Phone: Urea nitrogen/Creatinine [Mass ratio] 35.5 mg/mg 10-20 [facility] Work Phone: Laboratory - Hematology and Cell countson 12-23-2021 Erythrocyte distribution width (RBC) [Entitic vol] 43.9 fL 35.1-43.9 [facility] Work Phone: Erythrocyte distribution width (RBC) [Ratio] 12.7 % 11.6-14.6 [facility] Work Phone: MCH (RBC) [Entitic mass] 32.5 pg 27.0-32.0 [facility] Work Phone: MCHC Auto (RBC) [Mass/Vol]on 12-23-2021 MCHC (RBC) [Mass/Vol] 34.4 g/dL 32-36 [facility] Work Phone: No Panel Informationon 12-23 Estimated GFR (MDRD) Amer 114 mL/min >60 [facility] Work Phone: Comment on above: GFR Calc Estimated GFR (MDRD) Non-Af Amer 94 mL/min >60 [facility] Work Phone: Comment on above: Non- GFR Calc Platelets bldon 12-23-2021 Platelets (Bld) [#/Vol] 173 10*3/uL 150-450 [facility] Work Phone: Serum or plasma calcium farshad urement (mass/volume)on 12-23-2021 Calcium [Mass/Vol] 8.9 mg/dL 8.5-10.[address] [facility] Work Phone: Serum or plasma creatinine m easurement (mass/volume)on 12-23-2021 Creatinine [Mass/Vol] 0.84 mg/dL 0.70-1.30 [facility] Work Phone: Comment on above: The validity of the calculated GFR & GFRAA in patients over 70 years has not been determined. Clinical correlation is essential. Serum or plasma urea nitroge n measurement (mass/volume)on 12-23-2021 Urea nitrogen [Mass/Vol] 30 mg/dL 7-18 [facility] Work Phone: Thin prep Papanicolaou smear with manual screeningon 12-23-2021 Thin prep Papanicolaou smear with manual screening 4 5-15 [facility] Work Phone: Basophil percentageon 2021 Chloride [Moles/Vol] 108 mmol/L 98-107 [facility] Work Phone: Glucose [Mass/Vol] 85 mg/dL 74-[address] [facility] Work Phone: Potassium [Moles/Vol] 4.5 mmol/L 3.5-5.1 [facility] Work Phone: Sodium [Moles/Vol] 142 mmol/L 136-[address] [facility] Work Phone: WBC (Bld) [#/Vol] 4.4 10*3/uL 4.4-11.[address] [facility] Work Phone: Blood erythrocytes count (nu mber/volume)on 11-18-2021 RBC (Bld) [#/Vol] 4.00 10*6/uL 4.6-6.2 [facility] Work Phone: Blood hemoglobin measurement (mass/volume)on 11-18-2021 Hemoglobin (Bld) [Mass/Vol] 12.6 g/dL 13.0-16.5 [facility] Work Phone: Blood platelet mean volumeon 11-18-2021 Platelet mean volume (Bld) [Entitic vol] 9.5 fL 6.2-12.0 [facility] Work Phone: Determination of erythrocyte mean corpuscular volume (MCV)on 11-18-2021 MCV (RBC) [Entitic vol] 93.8 fL 80-94 [facility] Work Phone: Hematocrit Auto (Bld) [Volum e fraction]on 11-18-2021 Hematocrit (Bld) [Volume fraction] 37.5 % 40-54 [facility] Work Phone: Laboratory - Chemistry and C hemistry - challengeon 11-18-2021 CO2 [Moles/Vol] 32.0 mmol/L 21.0-32.0 [facility] Work Phone: Urea nitrogen/Creatinine [Mass ratio] 31.3 mg/mg 10-20 [facility] Work Phone: Laboratory - Hematology and Cell countson 11-18-2021 Erythrocyte distribution width (RBC) [Entitic vol] 44.8 fL 35.1-43.9 [facility] Work Phone: Erythrocyte distribution width (RBC) [Ratio] 13.1 % 11.6-14.6 [facility] Work Phone: MCH (RBC) [Entitic mass] 31.5 pg 27.0-32.0 [facility] Work Phone: MCHC Auto (RBC) [Mass/Vol]on 11-18-2021 MCHC (RBC) [Mass/Vol] 33.6 g/dL 32-36 [facility] Work [facility]: No Panel Informationon 11-18 Estimated GFR (MDRD) Amer 98 mL/min >60 [facility] Work Phone: Comment on above: GFR Calc Estimated GFR (MDRD) Non-Af Amer 81 mL/min >60 [facility] Work Phone: Comment on above: Non- GFR Calc Platelets bldon 11-18-2021 Platelets (Bld) [#/Vol] 175 10*3/uL 150-450 [facility] Work Phone: Serum or plasma calcium farshad urement (mass/volume)on 11-18-2021 Calcium [Mass/Vol] 9.1 mg/dL 8.5-10.[address] [facility] Work Phone: Serum or plasma creatinine m easurement (mass/volume)on 11-18-2021 Creatinine [Mass/Vol] 0.96 mg/dL 0.70-1.30 [facility] Work Phone: Comment on above: The validity of the calculated GFR & GFRAA in patients over 70 years has not been determined. Clinical correlation is essential. Serum or plasma urea nitroge n measurement (mass/volume)on 11-18-2021 Urea nitrogen [Mass/Vol] 30 mg/dL 7-18 [facility] Work Phone: Thin prep Papanicolaou smear with manual screeningon 11-18-2021 Thin prep Papanicolaou smear with manual screening 2 5-15 [facility] Work Phone: Basophil percentageon 2021 Chloride [Moles/Vol] 107 mmol/L 98-107 [facility] Work Phone: Glucose [Mass/Vol] 94 mg/dL 74-[address] [facility] Work Phone: Potassium [Moles/Vol] 4.3 mmol/L 3.5-5.1 [facility] Work Phone: Sodium [Moles/Vol] 140 mmol/L 136-[address] [facility] Work Phone: WBC (Bld) [#/Vol] 4.4 10*3/uL 4.4-11.[address] [facility] Work Phone: Blood erythrocytes count (nu mber/volume)on 10-21-2021 RBC (Bld) [#/Vol] 4.01 10*6/uL 4.6-6.2 [facility] Work Phone: Blood hemoglobin measurement (mass/volume)on 10-21-2021 Hemoglobin (Bld) [Mass/Vol] 12.7 g/dL 13.0-16.5 [facility] Work Phone: Blood platelet mean volumeon 10-21-2021 Platelet mean volume (Bld) [Entitic vol] 9.1 fL 6.2-12.0 [facility] Work Phone: Determination of erythrocyte mean corpuscular volume (MCV)on 10-21-2021 MCV (RBC) [Entitic vol] 96.8 fL 80-94 [facility] Work Phone: Hematocrit Auto (Bld) [Volum e fraction]on 10-21-2021 Hematocrit (Bld) [Volume fraction] 38.8 % 40-54 [facility] Work Phone: Laboratory - Chemistry and C hemistry - challengeon 10-21-2021 CO2 [Moles/Vol] 31.0 mmol/L 21.0-32.0 [facility] Work Phone: Urea nitrogen/Creatinine [Mass ratio] 27.8 mg/mg 10-20 [facility] Work Phone: Laboratory - Hematology and Cell countson 10-21-2021 Erythrocyte distribution width (RBC) [Entitic vol] 44.9 fL 35.1-43.9 [facility] Work Phone: Erythrocyte distribution width (RBC) [Ratio] 12.6 % 11.6-14.6 [facility] Work Phone: MCH (RBC) [Entitic mass] 31.7 pg 27.0-32.0 [facility] Work Phone: MCHC Auto (RBC) [Mass/Vol]on 10-21-2021 MCHC (RBC) [Mass/Vol] 32.7 g/dL 32-36 [facility] Work Phone: No Panel Informationon 10-21 Estimated GFR (MDRD) Amer 97 mL/min >60 [facility] Work Phone: Comment on above: GFR Calc Estimated GFR (MDRD) Non-Af Amer 80 mL/min >60 [facility] Work Phone: Comment on above: Non- GFR Calc Platelets bldon 10-21-2021 Platelets (Bld) [#/Vol] 273 10*3/uL 150-450 [facility] Work Phone: Serum or plasma calcium farshad urement (mass/volume)on 10-21-2021 Calcium [Mass/Vol] 9.1 mg/dL 8.5-10.1 [facility] Work Phone: Serum or plasma creatinine m easurement (mass/volume)on 10-21-2021 Creatinine [Mass/Vol] 0.97 mg/dL 0.70-1.30 [facility] Work Phone: Comment on above: The validity of the calculated GFR & GFRAA in patients over 70 years has not been determined. Clinical correlation is essential. Serum or plasma urea nitroge n measurement (mass/volume)on 10-21-2021 Urea nitrogen [Mass/Vol] 27 mg/dL 7-18 [facility] Work Phone: Thin prep Papanicolaou smear with manual screeningon 10-21-2021 Thin prep Papanicolaou smear with manual screening 2 5-15 [facility] Work Phone: Absolute lymphocyte counton 10-02-2021 Lymphocytes Auto (Unsp spec) [#/Vol] 0.52 10*3/uL 0.83-4.51 [facility] Work Phone: Basophil percentageon 2021 Basophil percentage 0-5 SEEN /hpf 0-5 [facility] Work Phone: Basophils/100 WBC (Bld) 0.1 % 0-1 [facility] Work Phone: Bilirubin [Mass/Vol] 1.30 mg/dL 0.20-1.00 [facility] Work Phone: Comment on above: For patients on eltr ombopag therapy, use of Dimension [place] TBIL is not recommended. Chloride [Moles/Vol] 104 mmol/L 98-107 [facility] Work Phone: Eosinophils/100 WBC (Bld) 0.1 % 0-5 [facility] Work Phone: Glucose [Mass/Vol] 135 mg/dL 74-[address] [facility] Work Phone: Comment on above: Fasting Glucose resu lt greater than or equal to 126 mg/dL suggests DIABETES MELLITUS per A.D.A. criteria. Neutrophils (Bld) [#/Vol] 10.9 10*3/uL 2.0-7.7 [facility] Work Phone: Neutrophils/100 WBC (Bld) 91.6 % 47-70 [facility] Work Phone: Potassium [Moles/Vol] 4.1 mmol/L 3.5-5.1 [facility] Work Phone: Protein [Mass/Vol] 7.0 g/dL 6.4-8.[address] [facility] Work Phone: Sodium [Moles/Vol] 136 mmol/L 136-[address] [facility] Work Phone: WBC (Bld) [#/Vol] 11.9 10*3/uL 4.4-11.0 [facility] Work Phone: Bilirubin Test strip Ql (U)o n 10-02-2021 Bilirubin Ql (U) Negative Negative [facility] Work Phone: Blood erythrocytes count (nu mber/volume)on 10-02-2021 RBC (Bld) [#/Vol] 4.20 10*6/uL 4.6-6.2 [facility] Work Phone: Blood hemoglobin measurement (mass/volume)on 10-02-2021 Hemoglobin (Bld) [Mass/Vol] 13.7 g/dL 13.0-16.5 [facility] Work Phone: Blood lymphocytes/100 leukoc yteson 10-02-2021 Lymphocytes/100 WBC (Bld) 4.4 % 19-41 [facility] Work Phone: Blood manual differential co mment interpretation (narrative result)on 10-02-2021 Manual differential comment Jordi (Bld) [Interp] SCANNED [facility] Work Phone: Comment on above: LYMPHOPENIA NOTED Blood monocytes/100 leukocyt eson 10-02-2021 Monocytes/100 WBC (Bld) 3.3 % 0-10 [facility] Work Phone: Blood platelet mean volumeon 10-02-2021 Platelet mean volume (Bld) [Entitic vol] 9.0 fL 6.2-12.0 [facility] Work Phone: Determination of erythrocyte mean corpuscular volume (MCV)on 10-02-2021 MCV (RBC) [Entitic vol] 92.6 fL 80-94 [facility] Work Phone: Hematocrit Auto (Bld) [Volum e fraction]on 10-02-2021 Hematocrit (Bld) [Volume fraction] 38.9 % 40-54 [facility] Work Phone: Ketones Test strip Ql (U)on 10-02-2021 Ketones Ql (U) 15 mg/dl Negative [facility] Work Phone: Laboratory - Chemistry and C hemistry - challengeon 10-02-2021 ALP [Catalytic activity/Vol] 156 U/L 45-117 [facility] Work Phone: ALT [Catalytic activity/Vol] 14 U/L 16-61 [facility] Work Phone: CO2 [Moles/Vol] 26.0 mmol/L 21.0-32.0 [facility] Work Phone: Globulin (S) [Mass/Vol] 3.2 g/dL 2.2-4.2 [facility] Work Phone: Urea nitrogen/Creatinine [Mass ratio] 23.1 mg/mg 10-20 [facility] Work Phone: Laboratory - Hematology and Cell countson 10-02-2021 Erythrocyte distribution width (RBC) [Entitic vol] 42.7 fL 35.1-43.9 [facility] Work Phone: Erythrocyte distribution width (RBC) [Ratio] 12.6 % 11.6-14.6 [facility] Work Phone: Immature granulocytes/100 WBC (Bld) 0.500 % 0.0-0.9 [facility] Work Phone: Comment on above: IG% - Immature Granu locytes (promyelocytes, myelocytes and metamyelocytes) > 1% indicates that a LEFT SHIFT is Present. MCH (RBC) [Entitic mass] 32.6 pg 27.0-32.0 [facility] Work Phone: Nucleated RBC/100 WBC (Bld) [Ratio] 0 % 0-5 [facility] Work Phone: MCHC Auto (RBC) [Mass/Vol]on 10-02-2021 MCHC (RBC) [Mass/Vol] 35.2 g/dL 32-36 [facility] Work Phone: Mucus LM Ql (Urine sed)on Mucus Ql (Urine sed) RARE /hpf [facility] Work Phone: Nitrite Test strip Ql (U)on 10-02-2021 Nitrite Ql (U) Negative Negative [facility] Work Phone: No Panel Informationon 10-02 Estimated Creatinine Clearance Calc 60.08 ml/min [facility] Work Phone: Estimated GFR (MDRD) Amer 85 mL/min >60 [facility] Work Phone: Comment on above: GFR Calc Estimated GFR (MDRD) Non-Af Amer 71 mL/min >60 [facility] Work Phone: Comment on above: Non- GFR Calc Troponin I High Sensitivity 6 pg/mL 3.0-78.0 [facility] Work Phone: Comment on above: Please Note: [place] t Units and Gender Specific Reference Ranges. For more information see Policy Stat Procedure [place] High Sensitivity Troponin (TNIH) and attachments. Platelets bldon 10-02-2021 Platelets (Bld) [#/Vol] 154 10*3/uL 150-450 [facility] Work Phone: Protein Test strip Ql (U)on 10-02-2021 Protein Ql (U) 15 mg/dl Negative [facility] Work Phone: Serum or plasma albumin farshad urement (mass/volume)on 10-02-2021 Albumin [Mass/Vol] 3.8 g/dL 3.2-5.[address] [facility] Work Phone: Serum or plasma albumin/glob ulin mass ratioon 10-02-2021 Albumin/Globulin [Mass ratio] 1.2 {ratio} 0.9-2.4 [facility] Work Phone: Serum or plasma calcium farshad urement (mass/volume)on 10-02-2021 Calcium [Mass/Vol] 8.7 mg/dL 8.5-10.[address] [facility] Work Phone: Serum or plasma creatinine m easurement (mass/volume)on 10-02-2021 Creatinine [Mass/Vol] 1.08 mg/dL 0.70-1.30 [facility] Work Phone: Comment on above: The validity of the calculated GFR & GFRAA in patients over 70 years has not been determined. Clinical correlation is essential. Serum or plasma urea nitroge n measurement (mass/volume)on 10-02-2021 Urea nitrogen [Mass/Vol] 25 mg/dL 7-18 [facility] Work Phone: Squamous epithelial cells de tection in urine sediment by light microscopyon 10-02-2021 Epithelial cells.squamous LM Ql (Urine sed) 0 SEEN /hpf 0-5 [facility] Work Phone: Thin prep Papanicolaou smear with manual screeningon 10-02-2021 Thin prep Papanicolaou smear with manual screening 34 U/L 15-37 [facility] Work Phone: Thin prep Papanicolaou smear with manual screening 6 5-15 [facility] Work Phone: Urine blood detectionon 09-12 RBC Ql (U) Negative Negative [facility] Work Phone: RBC Ql (U) 0 SEEN /hpf 0-5 [facility] [facility] Work Phone: Urine clarityon 10-02-2021 Clarity (U) Clear Clear [facility] Work Phone: Urine color determinationon 10-02-2021 Color (U) Yellow Yellow [facility] Work Phone: Urine glucose detectionon Glucose Ql (U) Normal mg/dl Normal [facility] Work Phone: Urine leukocyte esterase det ection by dipstickon 10-02-2021 Leukocyte esterase Test strip Ql (U) 25 /ul Negative [facility] Work Phone: Urine pHon 10-02-2021 pH (U) 6.0 [pH] 5.0 - 8.0 [facility] Work Phone: Urine sediment bacteria coun t by microscopy (number/high power field)on 10-02-2021 Bacteria LM.HPF (Urine sed) [#/Area] 0 /[HPF] None Seen [facility] Work Phone: Urine specific gravity measu rementon 10-02-2021 Specific gravity (U) [Rel density] 1.015 1.002-1.030 [facility] Work Phone: Urobilinogen Auto test strip Ql (U)on 10-02-2021 Urobilinogen Ql (U) 1 mg/dl Normal [facility] Work Phone: Basophil percentageon 2021 Chloride [Moles/Vol] 106 mmol/L 98-[address] [facility] [address] [facility] Work Phone: Glucose [Mass/Vol] 96 mg/dL 74-106 [facility] Work Phone: Potassium [Moles/Vol] 4.1 mmol/L 3.5-5.1 [facility] Work Phone: Sodium [Moles/Vol] 139 mmol/L 136-[address] [facility] Work Phone: WBC (Bld) [#/Vol] 4.7 10*3/uL 4.4-11.[address] [facility] Work Phone: Blood erythrocytes count (nu mber/volume)on 09-23-2021 RBC (Bld) [#/Vol] 4.10 10*6/uL 4.6-6.2 [facility] Work Phone: Blood hemoglobin measurement (mass/volume)on 09-23-2021 Hemoglobin (Bld) [Mass/Vol] 13.4 g/dL 13.0-16.5 [facility] Work Phone: Blood platelet mean volumeon 09-23-2021 Platelet mean volume (Bld) [Entitic vol] 9.5 fL 6.2-12.0 [facility] Work Phone: Determination of erythrocyte mean corpuscular volume (MCV)on 09-23-2021 MCV (RBC) [Entitic vol] 95.9 fL 80-94 [facility] Work Phone: Hematocrit Auto (Bld) [Volum e fraction]on 09-23-2021 Hematocrit (Bld) [Volume fraction] 39.3 % 40-54 [facility] Work Phone: Laboratory - Chemistry and C hemistry - challengeon 09-23-2021 CO2 [Moles/Vol] 28.0 mmol/L 21.0-32.0 [facility] Work Phone: Urea nitrogen/Creatinine [Mass ratio] 32.7 mg/mg 10-20 [facility] Work Phone: Laboratory - Hematology and Cell countson 09-23-2021 Erythrocyte distribution width (RBC) [Entitic vol] 44.1 fL 35.1-43.9 [facility] Work Phone: Erythrocyte distribution width (RBC) [Ratio] 12.7 % 11.6-14.6 [facility] Work Phone: MCH (RBC) [Entitic mass] 32.7 pg 27.0-32.0 [facility] Work Phone: MCHC Auto (RBC) [Mass/Vol]on 09-23-2021 MCHC (RBC) [Mass/Vol] 34.1 g/dL 32-36 [facility] Work Phone: No Panel Informationon 09-23 Estimated GFR (MDRD) Amer 84 mL/min >60 [facility] Work Phone: Comment on above: GFR Calc Estimated GFR (MDRD) Non-Af Amer 69 mL/min >60 [facility] Work Phone: Comment on above: Non- GFR Calc Platelets bldon 09-23-2021 Platelets (Bld) [#/Vol] 167 10*3/uL 150-450 [facility] Work Phone: Serum or plasma calcium farshad urement (mass/volume)on 09-23-2021 Calcium [Mass/Vol] 9.0 mg/dL 8.5-10.[address] [facility] Work Phone: Serum or plasma creatinine m easurement (mass/volume)on 09-23-2021 Creatinine [Mass/Vol] 1.10 mg/dL 0.70-1.30 [facility] Work Phone: Comment on above: The validity of the calculated GFR & GFRAA in patients over 70 years has not been determined. Clinical correlation is essential. Serum or plasma urea nitroge n measurement (mass/volume)on 09-23-2021 Urea nitrogen [Mass/Vol] 36 mg/dL 7-18 [facility] Work Phone: Thin prep Papanicolaou smear with manual screeningon 09-23-2021 Thin prep Papanicolaou smear with manual screening 5 5-15 [facility] Work Phone: Basophil percentageon 2021 Chloride [Moles/Vol] 105 mmol/L 98-107 [facility] Work Phone: Glucose [Mass/Vol] 88 mg/dL 74-[address] [facility] Work Phone: Potassium [Moles/Vol] 4.2 mmol/L 3.5-5.1 [facility] Work Phone: Sodium [Moles/Vol] 139 mmol/L 136-[address] [facility] Work Phone: WBC (Bld) [#/Vol] 4.3 10*3/uL 4.4-11.[address] [facility] Work Phone: Blood erythrocytes count (nu mber/volume)on 08-19-2021 RBC (Bld) [#/Vol] 4.31 10*6/uL 4.6-6.2 [facility] Work Phone: Blood hemoglobin measurement (mass/volume)on 08-19-2021 Hemoglobin (Bld) [Mass/Vol] 13.6 g/dL 13.0-16.5 [facility] Work Phone: Blood platelet mean volumeon 08-19-2021 Platelet mean volume (Bld) [Entitic vol] 9.4 fL 6.2-12.0 [facility] Work Phone: Determination of erythrocyte mean corpuscular volume (MCV)on 08-19-2021 MCV (RBC) [Entitic vol] 93.5 fL 80-94 [facility] Work Phone: Hematocrit Auto (Bld) [Volum e fraction]on 08-19-2021 Hematocrit (Bld) [Volume fraction] 40.3 % 40-54 [facility] Work Phone: Laboratory - Chemistry and C hemistry - challengeon 08-19-2021 CO2 [Moles/Vol] 31.0 mmol/L 21.0-32.0 [facility] Work Phone: Urea nitrogen/Creatinine [Mass ratio] 34.1 mg/mg 10-20 [facility] Work Phone: Laboratory - Hematology and Cell countson 08-19-2021 Erythrocyte distribution width (RBC) [Entitic vol] 43.7 fL 35.1-43.9 [facility] Work Phone: Erythrocyte distribution width (RBC) [Ratio] 12.6 % 11.6-14.6 [facility] Work Phone: MCH (RBC) [Entitic mass] 31.6 pg 27.0-32.0 [facility] Work Phone: MCHC Auto (RBC) [Mass/Vol]on 08-19-2021 MCHC (RBC) [Mass/Vol] 33.7 g/dL 32-36 [facility] Work Phone: No Panel Informationon 08-19 Estimated GFR (MDRD) Amer 94 mL/min >60 [facility] Work Phone: Comment on above: GFR Calc Estimated GFR (MDRD) Non-Af Amer 77 mL/min >60 [facility] Work Phone: Comment on above: Non- GFR Calc Platelets bldon 08-19-2021 Platelets (Bld) [#/Vol] 162 10*3/uL 150-450 [facility] Work Phone: Serum or plasma calcium farshad urement (mass/volume)on 08-19-2021 Calcium [Mass/Vol] 8.7 mg/dL 8.5-10.[address] [facility] Work Phone: Serum or plasma creatinine m easurement (mass/volume)on 08-19-2021 Creatinine [Mass/Vol] 1.00 mg/dL 0.70-1.30 [facility] Work Phone: Comment on above: The validity of the calculated GFR & GFRAA in patients over 70 years has not been determined. Clinical correlation is essential. Serum or plasma urea nitroge n measurement (mass/volume)on 08-19-2021 Urea nitrogen [Mass/Vol] 34 mg/dL 7-18 [facility] Work Phone: Thin prep Papanicolaou smear with manual screeningon 08-19-2021 Thin prep Papanicolaou smear with manual screening 3 5-15 [facility] Work Phone: Basophil percentageon 2021 Chloride [Moles/Vol] 108 mmol/L 98-107 [facility] Work Phone: Glucose [Mass/Vol] 85 mg/dL 74-[address] [facility] Work Phone: Potassium [Moles/Vol] 4.3 mmol/L 3.5-5.1 [facility] Work Phone: Sodium [Moles/Vol] 141 mmol/L 136-[address] [facility] Work Phone: WBC (Bld) [#/Vol] 4.4 10*3/uL 4.4-11.[address] [facility] Work Phone: Blood erythrocytes count (nu mber/volume)on 07-22-2021 RBC (Bld) [#/Vol] 4.02 10*6/uL 4.6-6.2 [facility] Work [facility]: Blood hemoglobin measurement (mass/volume)on 07-22-2021 Hemoglobin (Bld) [Mass/Vol] 13.1 g/dL 13.0-16.5 [facility] Work Phone: Blood platelet mean volumeon 07-22-2021 Platelet mean volume (Bld) [Entitic vol] 9.2 fL 6.2-12.0 [facility] Work Phone: Determination of erythrocyte mean corpuscular volume (MCV)on 07-22-2021 MCV (RBC) [Entitic vol] 92.8 fL 80-94 [facility] Work Phone: Hematocrit Auto (Bld) [Volum e fraction]on 07-22-2021 Hematocrit (Bld) [Volume fraction] 37.3 % 40-54 [facility] Work Phone: Laboratory - Chemistry and C hemistry - challengeon 07-22-2021 CO2 [Moles/Vol] 32.0 mmol/L 21.0-32.0 [facility] Work Phone: Urea nitrogen/Creatinine [Mass ratio] 26.4 mg/mg 10-20 [facility] Work Phone: Laboratory - Hematology and Cell countson 07-22-2021 Erythrocyte distribution width (RBC) [Entitic vol] 42.7 fL 35.1-43.9 [facility] Work Phone: Erythrocyte distribution width (RBC) [Ratio] 12.5 % 11.6-14.6 [facility] Work Phone: MCH (RBC) [Entitic mass] 32.6 pg 27.0-32.0 [facility] Work Phone: MCHC Auto (RBC) [Mass/Vol]on 07-22-2021 MCHC (RBC) [Mass/Vol] 35.1 g/dL 32-36 [facility] Work Phone: No Panel Informationon 07-22 Estimated GFR (MDRD) Amer 87 mL/min >60 [facility] Work Phone: Comment on above: GFR Calc Estimated GFR (MDRD) Non-Af Amer 72 mL/min >60 [facility] Work Phone: Comment on above: Non- GFR Calc Platelets bldon 07-22-2021 Platelets (Bld) [#/Vol] 163 10*3/uL 150-450 [facility] Work Phone: Serum or plasma calcium farshad urement (mass/volume)on 07-22-2021 Calcium [Mass/Vol] 8.9 mg/dL 8.5-10.[address] [facility] Work Phone: Serum or plasma creatinine m easurement (mass/volume)on 07-22-2021 Creatinine [Mass/Vol] 1.06 mg/dL 0.70-1.30 [facility] Work Phone: Comment on above: The validity of the calculated GFR & GFRAA in patients over 70 years has not been determined. Clinical correlation is essential. Serum or plasma urea nitroge n measurement (mass/volume)on 07-22-2021 Urea nitrogen [Mass/Vol] 28 mg/dL 7-18 [facility] Work Phone: Thin prep Papanicolaou smear with manual screeningon 07-22-2021 Thin prep Papanicolaou smear with manual screening 1 5-15 [facility] Work Phone: Basophil percentageon 2021 Chloride [Moles/Vol] 106 mmol/L 98-107 [facility] Work Phone: Glucose [Mass/Vol] 80 mg/dL 74-[address] [facility] Work Phone: Potassium [Moles/Vol] 4.2 mmol/L 3.5-5.1 [facility] Work Phone: Sodium [Moles/Vol] 140 mmol/L 136-[address] [facility] Work Phone: WBC (Bld) [#/Vol] 4.1 10*3/uL 4.4-11.[address] [facility] Work Phone: Blood erythrocytes count (nu mber/volume)on 06-24-2021 RBC (Bld) [#/Vol] 4.10 10*6/uL 4.6-6.2 [facility] Work Phone: Blood hemoglobin measurement (mass/volume)on 06-24-2021 Hemoglobin (Bld) [Mass/Vol] 13.3 g/dL 13.0-16.5 [facility] Work Phone: Blood platelet mean volumeon 06-24-2021 Platelet mean volume (Bld) [Entitic vol] 9.5 fL 6.2-12.0 [facility] Work Phone: Determination of erythrocyte mean corpuscular volume (MCV)on 06-24-2021 MCV (RBC) [Entitic vol] 93.4 fL 80-94 [facility] Work Phone: Hematocrit Auto (Bld) [Volum e fraction]on 06-24-2021 Hematocrit (Bld) [Volume fraction] 38.3 % 40-54 [facility] Work Phone: Laboratory - Chemistry and C hemistry - challengeon 06-24-2021 CO2 [Moles/Vol] 33.0 mmol/L 21.0-32.0 [facility] Work Phone: Urea nitrogen/Creatinine [Mass ratio] 32.4 mg/mg 10-20 [facility] Work Phone: Laboratory - Hematology and Cell countson 06-24-2021 Erythrocyte distribution width (RBC) [Entitic vol] 43.4 fL 35.1-43.9 [facility] Work Phone: Erythrocyte distribution width (RBC) [Ratio] 12.5 % 11.6-14.6 [facility] Work Phone: MCH (RBC) [Entitic mass] 32.4 pg 27.0-32.0 [facility] Work Phone: MCHC Auto (RBC) [Mass/Vol]on 06-24-2021 MCHC (RBC) [Mass/Vol] 34.7 g/dL 32-36 [facility] Work Phone: No Panel Informationon 06-24 Estimated GFR (MDRD) Amer 102 mL/min >60 [facility] Work Phone: Comment on above: GFR Calc Estimated GFR (MDRD) Non-Af Amer 84 mL/min >60 [facility] Work Phone: Comment on above: Non- GFR Calc Platelets bldon 06-24-2021 Platelets (Bld) [#/Vol] 149 10*3/uL 150-450 [facility] Work Phone: Serum or plasma calcium farshad urement (mass/volume)on 06-24-2021 Calcium [Mass/Vol] 8.6 mg/dL 8.5-10.[address] [facility] Work Phone: Serum or plasma creatinine m easurement (mass/volume)on 06-24-2021 Creatinine [Mass/Vol] 0.93 mg/dL 0.70-1.30 [facility] Work Phone: Comment on above: The validity of the calculated GFR & GFRAA in patients over 70 years has not been determined. Clinical correlation is essential. Serum or plasma urea nitroge n measurement (mass/volume)on 06-24-2021 Urea nitrogen [Mass/Vol] 30 mg/dL 7-18 [facility] Work Phone: Thin prep Papanicolaou smear with manual screeningon 06-24-2021 Thin prep Papanicolaou smear with manual screening 1 5-15 [facility] Work Phone: Basophil percentageon 2021 Chloride [Moles/Vol] 105 mmol/L 98-107 [facility] Work Phone: Glucose [Mass/Vol] 93 mg/dL 74-[address] [facility] Work Phone: Potassium [Moles/Vol] 4.4 mmol/L 3.5-5.1 [facility] Work Phone: Sodium [Moles/Vol] 140 mmol/L 136-[address] [facility] Work Phone: WBC (Bld) [#/Vol] 4.8 10*3/uL 4.4-11.[address] [facility] Work Phone: Blood erythrocytes count (nu mber/volume)on 05-27-2021 RBC (Bld) [#/Vol] 4.04 10*6/uL 4.6-6.2 [facility] Work Phone: Blood hemoglobin measurement (mass/volume)on 05-27-2021 Hemoglobin (Bld) [Mass/Vol] 13.0 g/dL 13.0-16.5 [facility] Work Phone: Blood platelet mean volumeon 05-27-2021 Platelet mean volume (Bld) [Entitic vol] 9.5 fL 6.2-12.0 [facility] Work Phone: Determination of erythrocyte mean corpuscular volume (MCV)on 05-27-2021 MCV (RBC) [Entitic vol] 94.1 fL 80-94 [facility] Work Phone: Hematocrit Auto (Bld) [Volum e fraction]on 05-27-2021 Hematocrit (Bld) [Volume fraction] 38.0 % 40-54 [facility] Work Phone: Laboratory - Chemistry and C hemistry - challengeon 05-27-2021 CO2 [Moles/Vol] 31.0 mmol/L 21.0-32.0 [facility] Work Phone: Urea nitrogen/Creatinine [Mass ratio] 25.2 mg/mg 10-20 [facility] Work Phone: Laboratory - Hematology and Cell countson 05-27-2021 Erythrocyte distribution width (RBC) [Entitic vol] 43.4 fL 35.1-43.9 [facility] Work Phone: Erythrocyte distribution width (RBC) [Ratio] 12.5 % 11.6-14.6 [facility] Work Phone: MCH (RBC) [Entitic mass] 32.2 pg 27.0-32.0 [facility] Work Phone: MCHC Auto (RBC) [Mass/Vol]on 05-27-2021 MCHC (RBC) [Mass/Vol] 34.2 g/dL 32-36 [facility] Work Phone: No Panel Informationon 05-27 Estimated GFR (MDRD) Amer 90 mL/min >60 [facility] Work Phone: Comment on above: GFR Calc Estimated GFR (MDRD) Non-Af Amer 75 mL/min >60 [facility] Work Phone: Comment on above: Non- GFR Calc Platelets bldon 05-27-2021 Platelets (Bld) [#/Vol] 157 10*3/uL 150-450 [facility] Work Phone: Serum or plasma calcium farshad urement (mass/volume)on 05-27-2021 Calcium [Mass/Vol] 8.9 mg/dL 8.5-10.[address] [facility] Work Phone: Serum or plasma creatinine m easurement (mass/volume)on 05-27-2021 Creatinine [Mass/Vol] 1.03 mg/dL 0.70-1.30 [facility] Work Phone: Comment on above: The validity of the calculated GFR & GFRAA in patients over 70 years has not been determined. Clinical correlation is essential. Serum or plasma urea nitroge n measurement (mass/volume)on 05-27-2021 Urea nitrogen [Mass/Vol] 26 mg/dL 7-18 [facility] Work Phone: Thin prep Papanicolaou smear with manual screeningon 05-27-2021 Thin prep Papanicolaou smear with manual screening 4 5-15 [facility] Work Phone: [facility] Surgical Pathology Depar tmenton 12-21-2020 [facility] Surgical Pathology Department Name IGOR CRUZ Pathologist: JAYSHREE BRITTON DMD Date of Procedure: 12/21/2020 Date Received: 12/24/2020 Date Reported 12/27/2020 Submitting Physician: MARJAN SOSA DMD Location: [facility] Other External # FINAL DIAGNOSIS A: FRONT AND RIGHT LATERAL BORDER OF TONGUE, EXCISION: -- TRAUMATIC FIBROMAS ICD-10/CPT: D10.1/52685 Electronically Signed Out By JAYSHREE BRITTON DMD/FRIDAS By the signature on this report, the individual or group listed as making the Final Interpretation/Diag nosis certifies that they have reviewed this case. Microscopic Description: The nodules consist of a proliferation of densely collagenous fibrovascular tissue with sparse chronic inflammation. They are overlaid by thinly keratinized stratified squamous epithelium undergoing the usual pattern of maturation. Clinical History: The lesions were excised from the front and lateral sides of the tongue where they measure 0.5 x 0.5 cm, are pink, and have been present for 1 year. Clinical impression: Fibroma. Specimens Submitted As: A: FRONT ELEVATED SIDE OF TONGUE Gross Description: Received in formalin, labeled with the patient's name and hospital number, are 2 portions of mucosal covered soft tissue measuring 0.6 x 0.5 x 0.5 cm and 0.7 x 0.4 x 0.3 cm. The resection margin is inked. The specimen is submitted in toto in one cassette. RCC rcc/12/24/2020 [facility] Department of Pathology [id number] [place] [address] Normal [facility] Comment on above: Performed By: #### U HCS #### [facility] Surgical Pathology Department [id number] [place], [place] [id number] CURon 08-12-2019 CUR . MICRO - Microbiology PROCEDURE: Urine Culture [*1] SOURCE: Urine BODY SITE: COLLECTED DATE/TIME: 08/10/2019 17:01 EDT RECEIVED DATE/TIME: 08/10/2019 19:08 EDT START DATE/TIME: 08/10/2019 19:08 EDT FREE TEXT SOURCE: FINAL REPORTS Final Report [] Verified Date/Time/Personnel : 08/12/2019 07:21 EDT 10,000 - 50,000 cfu/ml Multiple bacterial morphotypes present. Probable Contamination. Suggest recollection if clinically indicated. PRELIMINARY REPORTS Preliminary Report [] Verified Date/Time/Personnel : 08/11/2019 09:17 EDT No growth to date Performing Locations *1: This test was performed at: [address], [address] [place] [address] ([place]) Comment on above: Performed By: #### C BC, ADIFF, ANEU #### [address] [address] #### TROP, BMP, TSH, GFR #### [address] [address] .GFRon 08-10-2019 GFR 43 ml/min/1.73sqm [facility] ([place]) Comment on above: Result Comment: GFR Population mean for , Non- Americans Ages 20-29 = 116 mL/min/1.73 sq.m. Ages 30-39 = 107 mL/min/1.73 sq.m. Ages 40-49 = 99 mL/min/1.73 sq.m. Ages 50-59 = 93 mL/min/1.73 sq.m. Ages 60-69 = 85 mL/min/1.73 sq.m. Ages 70+ = 75 mL/min/1.73 sq.m. Chronic Kidney Disease: Less than 60 mL/min/1.73 square meters End Stage Renal Disease: Less than 15 mL/min/1.73 square meters Performed By: #### B MP, GFR ####[address] [address] GFR Non- 35 ml/min/1.73sqm Normal [facility] ([place]) Comment on above: Result Comment: GFR Population mean for , Non- Americans Ages 20-29 = 116 mL/min/1.73 sq.m. Ages 30-39 = 107 mL/min/1.73 sq.m. Ages 40-49 = 99 mL/min/1.73 sq.m. Ages 50-59 = 93 mL/min/1.73 sq.m. Ages 60-69 = 85 mL/min/1.73 sq.m. Ages 70+ = 75 mL/min/1.73 sq.m. Chronic Kidney Disease: Less than 60 mL/min/1.73 square meters End Stage Renal Disease: Less than 15 mL/min/1.73 square meters Performed By: #### B MP, GFR ####[address] [address] BMPon 08-10-2019 Calcium [Mass/Vol] 9.1 mg/dL Normal 8.4-10.2 [facility] ([place]) Comment on above: Performed By: #### B MP, GFR ####[address] [address] Chloride [Moles/Vol] 105 mmol/L Normal 98-107 [facility] ([place]) Comment on above: Performed By: #### B MP, GFR ####[address] [address] CO2 [Moles/Vol] 33 mmol/L High 23-31 [facility] ([place]) Comment on above: Performed By: #### B MP, GFR ####[address] [address] Creatinine [Mass/Vol] 1.88 mg/dL High 0.70-1.30 [facility] ([place]) Comment on above: Performed By: #### B MP, GFR ####[address] [address] Electrolyte Balance 5.0 mEq/L Normal [facility] ([place]) Comment on above: Performed By: #### B MP, GFR ####[address] [address] Glucose [Mass/Vol] 83 mg/dL Normal 83-110 [facility] ([place]) Comment on above: Performed By: #### B MP, GFR ####[address] [address] Potassium [Moles/Vol] 4.1 mmol/L Normal 3.5-5.1 [facility] ([place]) Comment on above: Performed By: #### B MP, GFR ####[address] [address] Sodium [Moles/Vol] 143 mmol/L Normal 136-145 [facility] ([place]) Comment on above: Performed By: #### B MP, GFR ####[address] [address] Urea nitrogen [Mass/Vol] 38 mg/dL High 7-18 [facility] ([place]) Comment on above: Performed By: #### B MP, GFR ####[address] [address] Urea nitrogen/Creatinine [Mass ratio] 20 ratio Normal 7-27 [facility] ([place]) Comment on above: Performed By: #### B MP, GFR ####[address] [address] UAon 08-10-2019 Color (U) Yellow Normal [facility] ([place]) Comment on above: Performed By: #### C BC, ADIFF, ANEU #### [place] [address] [place], [place] [address] #### TROP, BMP, TSH, GFR #### [address] [address] Glucose (U) [Mass/Vol] Negative Normal Negative [facility] ([place]) Comment on above: Performed By: #### C BC, ADIFF, ANEU #### [address] [address] #### TROP, BMP, TSH, GFR #### [place] [id number] Ketones Ql (U) Negative Normal Negative [facility] ([place]) Comment on above: Performed By: #### C BC, ADIFF, ANEU #### [place] [address] #### TROP, BMP, TSH, GFR #### [place] [address] UA Appear Clear Normal Clear [facility] ([place]) Comment on above: Performed By: #### C BC, ADIFF, ANEU #### [place] [address] #### TROP, BMP, TSH, GFR #### [place] [address] UA Blood Trace Abnormal Negative [facility] ([place]) Comment on above: Performed By: #### C BC, ADIFF, ANEU #### [address] [address] #### TROP, BMP, TSH, GFR #### [place] [address] UA Leuk Est Negative Normal Negative [facility] ([place]) Comment on above: Performed By: #### C BC, ADIFF, ANEU #### [place] [address] #### TROP, BMP, TSH, GFR #### [place] [address] UA Nitrite Negative Normal Negative [facility] ([place]) Comment on above: Performed By: #### C BC, ADIFF, ANEU #### [place] [address] #### TROP, BMP, TSH, GFR #### [place] [address] UA pH 7.0 Normal 5.0 - 8.0 [facility] ([place]) Comment on above: Performed By: #### C BC, ADIFF, ANEU #### [place] [address] #### TROP, BMP, TSH, GFR #### [place] [address] UA Protein Negative Normal Negative [facility] ([place]) Comment on above: Performed By: #### C BC, ADIFF, ANEU #### [place] [address] #### TROP, BMP, TSH, GFR #### [place] [address] UA Spec Grav 1.020 Normal 1.015-1.025 [facility] ([place]) Comment on above: Performed By: #### C BC, ADIFF, ANEU #### [place] [address] #### TROP, BMP, TSH, GFR #### [place] [address] UA Specimen Type Clean Catch Normal [facility] ([place]) Comment on above: Performed By: #### C BC, ADIFF, ANEU #### [place] [address] #### TROP, BMP, TSH, GFR #### [place] [address] UA Urobilinogen 0.2 E.U./dL Normal 0.2-1.0 [facility] ([place]) Comment on above: Performed By: #### C BC, ADIFF, ANEU #### [place] [address] #### TROP, BMP, TSH, GFR #### [place] [address] Urobilinogen Qn (U) Negative Normal Negative [facility] ([place]) Comment on above: Performed By: #### C BC, ADIFF, ANEU #### [place] [address] #### TROP, BMP, TSH, GFR #### [address] [address] .Auto Diffon 08-09-2019 Ammonia (P) [Mass/Vol] 0.40 10 3/mcL Normal 0.15-1.00 [facility] ([place]) Comment on above: Performed By: #### C BC, ADIFF, ANEU #### [address] [address] #### TROP, BMP, TSH, GFR #### [address] [address] Basophils (Bld) [#/Vol] 0.00 10 3/mcL Normal 0.00-0.19 [facility] ([place]) Comment on above: Performed By: #### C BC, ADIFF, ANEU #### [address] [address] #### TROP, BMP, TSH, GFR #### [place] [address] Basophils/100 WBC (Bld) 1.0 % Normal 0.0-2.5 A [facility] ([place]) Comment on above: Performed By: #### C BC, ADIFF, ANEU #### [address] [address] #### TROP, BMP, TSH, GFR #### [address] [address] Eosinophils (Bld) [#/Vol] 0.10 10 3/mcL Normal 0.00-0.40 [facility] ([place]) Comment on above: Performed By: #### C BC, ADIFF, ANEU #### [address] [address] #### TROP, BMP, TSH, GFR #### [address] [address] Eosinophils/100 WBC (Bld) 1.3 % Normal 0.0-7.0 [facility] ([place]) Comment on above: Performed By: #### C BC, ADIFF, ANEU #### [place] [address] #### TROP, BMP, TSH, GFR #### [address] [address] Lymphocytes (Bld) [#/Vol] 0.80 10 3/mcL Normal 0.77-3.85 [facility] ([place]) Comment on above: Performed By: #### C BC, ADIFF, ANEU #### [place] [address] #### TROP, BMP, TSH, GFR #### [address] [address] Lymphocytes/100 WBC (Bld) 15.3 % Normal 10.0-50.0 [facility] ([place]) Comment on above: Performed By: #### C BC, ADIFF, ANEU #### [place] [address] #### TROP, BMP, TSH, GFR #### [address] [address] Monocytes/100 WBC (Bld) 8.0 % Normal 1.7-13.0 A [facility] ([place]) Comment on above: Performed By: #### C BC, ADIFF, ANEU #### [place] [address] #### TROP, BMP, TSH, GFR #### [address] [address] Neutrophils/100 WBC (Bld) 74.4 % Normal 37.0-80.0 [facility] ([place]) Comment on above: Performed By: #### C BC, ADIFF, ANEU #### [place] [address] #### TROP, BMP, TSH, GFR #### [address] [address] .GFRon 08-09-2019 GFR 39 ml/min/1.73sqm Normal [facility] ([place]) Comment on above: Result Comment: GFR Population mean for , Non- Americans Ages 20-29 = 116 mL/min/1.73 sq.m. Ages 30-39 = 107 mL/min/1.73 sq.m. Ages 40-49 = 99 mL/min/1.73 sq.m. Ages 50-59 = 93 mL/min/1.73 sq.m. Ages 60-69 = 85 mL/min/1.73 sq.m. Ages 70+ = 75 mL/min/1.73 sq.m. Chronic Kidney Disease: Less than 60 mL/min/1.73 square meters End Stage Renal Disease: Less than 15 mL/min/1.73 square meters Performed By: #### B MP, MG, GFR, VIDH, B12 ####[address] [address] GFR Non- 32 ml/min/1.73sqm Normal [facility] ([place]) Comment on above: Result Comment: GFR Population mean for , Non- Americans Ages 20-29 = 116 mL/min/1.73 sq.m. Ages 30-39 = 107 mL/min/1.73 sq.m. Ages 40-49 = 99 mL/min/1.73 sq.m. Ages 50-59 = 93 mL/min/1.73 sq.m. Ages 60-69 = 85 mL/min/1.73 sq.m. Ages 70+ = 75 mL/min/1.73 sq.m. Chronic Kidney Disease: Less than 60 mL/min/1.73 square meters End Stage Renal Disease: Less than 15 mL/min/1.73 square meters Performed By: #### B MP, MG, GFR, VIDH, B12 ####[address] [address] GFR Non- 31 ml/min/1.73sqm Normal [facility] ([place]) Comment on above: Result Comment: GFR Population mean for , Non- Americans Ages 20-29 = 116 mL/min/1.73 sq.m. Ages 30-39 = 107 mL/min/1.73 sq.m. Ages 40-49 = 99 mL/min/1.73 sq.m. Ages 50-59 = 93 mL/min/1.73 sq.m. Ages 60-69 = 85 mL/min/1.73 sq.m. Ages 70+ = 75 mL/min/1.73 sq.m. Chronic Kidney Disease: Less than 60 mL/min/1.73 square meters End Stage Renal Disease: Less than 15 mL/min/1.73 square meters Performed By: #### C BC, ADIFF, ANEU #### [address] [address] #### TROP, BMP, TSH, GFR #### [address] [address] GFR 37 ml/min/1.73sqm Normal [facility] ([place]) Comment on above: Result Comment: GFR Population mean for , Non- Americans Ages 20-29 = 116 mL/min/1.73 sq.m. Ages 30-39 = 107 mL/min/1.73 sq.m. Ages 40-49 = 99 mL/min/1.73 sq.m. Ages 50-59 = 93 mL/min/1.73 sq.m. Ages 60-69 = 85 mL/min/1.73 sq.m. Ages 70+ = 75 mL/min/1.73 sq.m. Chronic Kidney Disease: Less than 60 mL/min/1.73 square meters End Stage Renal Disease: Less than 15 mL/min/1.73 square meters Performed By: #### C BC, ADIFF, ANEU #### [place] [id number] #### TROP, BMP, TSH, GFR #### [address] [address] .NEUABSon 08-09-2019 Neutrophils (Bld) [#/Vol] 3.80 10 3/mcL Normal 2.85-6.16 [facility] ([place]) Comment on above: Performed By: #### C BC, ADIFF, ANEU #### [place] [address] #### TROP, BMP, TSH, GFR #### [address] [address] .Urinalysis Microscopic (AO) on 08-09-2019 RBC (U) [#/Vol] 0-5 Abnormal None Seen [facility] ([place]) Comment on above: Performed By: #### U A, UAMICAO ####[place] [address] UA Squam Epithelial None Seen Normal None Seen [facility] ([place]) Comment on above: Performed By: #### U A, UAMICAO ####[place] [address] UA WBC 0-5 Abnormal None Seen [facility] ([place] Comment on above: Performed By: #### U A, UAMICAO ####[place] [address] B12on 08-09-2019 Cobalamin (Vitamin B12) [Mass/Vol] 336 pg/mL Normal 211-911 [facility] ([place]) Comment on above: Performed By: #### B MP, MG, GFR, VIDH, B12 ####[place] [address] BMPon 08-09-2019 Calcium [Mass/Vol] 8.7 mg/dL Normal 8.4-10.2 [facility] ([place]) Comment on above: Performed By: #### B MP, MG, GFR, VIDH, B12 ####[place] [address] Chloride [Moles/Vol] 106 mmol/L Normal 98-107 [facility] ([place]) Comment on above: Performed By: #### B MP, MG, GFR, VIDH, B12 ####[place] [address] CO2 [Moles/Vol] 32 mmol/L High 23-31 [facility] ([place]) Comment on above: Performed By: #### B MP, MG, GFR, VIDH, B12 ####[place] [address] Creatinine [Mass/Vol] 2.03 mg/dL High 0.70-1.30 [facility] ([place]) Comment on above: Performed By: #### B MP, MG, GFR, VIDH, B12 ####[place] [address] Electrolyte Balance 3.0 mEq/L Normal [facility] ([place]) Comment on above: Performed By: #### B MP, MG, GFR, VIDH, B12 ####[address] [address] Glucose [Mass/Vol] 91 mg/dL Normal 83-110 [facility] ([place]) Comment on above: Performed By: #### B MP, MG, GFR, VIDH, B12 ####[address] [address] Potassium [Moles/Vol] 4.5 mmol/L Normal 3.5-5.1 [facility] ([place]) Comment on above: Performed By: #### B MP, MG, GFR, VIDH, B12 ####[address] [address] Sodium [Moles/Vol] 141 mmol/L Normal 136-145 [facility] ([place]) Comment on above: Performed By: #### B MP, MG, GFR, VIDH, B12 ####[address] [address] Urea nitrogen [Mass/Vol] 46 mg/dL High 7-18 [facility] ([place] Comment on above: Performed By: #### B MP, MG, GFR, VIDH, B12 ####[address] [address] Urea nitrogen/Creatinine [Mass ratio] 23 ratio Normal 7-27 [facility] ([place] Comment on above: Performed By: #### B MP, MG, GFR, VIDH, B12 ####[address] [address] Calcium [Mass/Vol] 9.6 mg/dL Normal 8.4-10.2 [facility] ([place]) Comment on above: Performed By: #### C BC, ADIFF, ANEU #### [address] [address] #### TROP, BMP, TSH, GFR #### [address] [address] Chloride [Moles/Vol] 104 mmol/L Normal 98-107 [facility] ([place]) Comment on above: Performed By: #### C BC, ADIFF, ANEU #### [address] [address] #### TROP, BMP, TSH, GFR #### [address] [address] CO2 [Moles/Vol] 29 mmol/L Normal 23-31 [facility] ([place] Comment on above: Performed By: #### C BC, ADIFF, ANEU #### [address] [address] #### TROP, BMP, TSH, GFR #### [address] [address] Creatinine [Mass/Vol] 2.12 mg/dL High 0.70-1.30 [facility] ([place]) Comment on above: Performed By: #### C BC, ADIFF, ANEU #### [place] [address] #### TROP, BMP, TSH, GFR #### [address] [address] Electrolyte Balance 8.0 mEq/L Normal [facility] ([place]) Comment on above: Performed By: #### C BC, ADIFF, ANEU #### [place] [address] #### TROP, BMP, TSH, GFR #### [address] [address] Glucose [Mass/Vol] 92 mg/dL Normal 83-110 [facility] ([place]) Comment on above: Performed By: #### C BC, ADIFF, ANEU #### [address] [address] #### TROP, BMP, TSH, GFR #### [address] [address] Potassium [Moles/Vol] 4.2 mmol/L Normal 3.5-5.1 [facility] ([place]) Comment on above: Performed By: #### C BC, ADIFF, ANEU #### [place] [id number] #### TROP, BMP, TSH, GFR #### [address] [address] Sodium [Moles/Vol] 141 mmol/L Normal 136-145 [facility] ([place]) Comment on above: Performed By: #### C BC, ADIFF, ANEU #### [address] [address] #### TROP, BMP, TSH, GFR #### [address] [address] Urea nitrogen [Mass/Vol] 47 mg/dL High 7-18 [facility] ([place]) Comment on above: Performed By: #### C BC, ADIFF, ANEU #### [address] [address] #### TROP, BMP, TSH, GFR #### [address] [address] Urea nitrogen/Creatinine [Mass ratio] 22 ratio Normal 12-07 [facility] ([place] Comment on above: Performed By: #### C BC, ADIFF, ANEU #### [address] [address] #### TROP, BMP, TSH, GFR #### [address] [address] CBCon 08-09-2019 Erythrocyte distribution width (RBC) [Ratio] 13.0 % Normal 11.5-14.5 [facility] ([place]) Comment on above: Performed By: #### C BC, ADIFF, ANEU #### [address] [address] #### TROP, BMP, TSH, GFR #### [address] [address] Hematocrit (Bld) [Volume fraction] 41.5 % Low 42.0-52.0 [facility] ([place] Comment on above: Performed By: #### C BC, ADIFF, ANEU #### [address] [address] #### TROP, BMP, TSH, GFR #### [place] [address] Hemoglobin (Bld) [Mass/Vol] 14.4 G/dL Normal 14.0-18.0 [facility] ([place] Comment on above: Performed By: #### C BC, ADIFF, ANEU #### [place] [address] #### TROP, BMP, TSH, GFR #### [place] [address] MCH (RBC) [Entitic mass] 31.6 pg High 27.0-31.2 [facility] ([place] Comment on above: Performed By: #### C BC, ADIFF, ANEU #### [place] [address] #### TROP, BMP, TSH, GFR #### [place] [address] MCHC (RBC) [Mass/Vol] 34.7 G/dL Normal 31.8-35.4 [facility] ([place]) Comment on above: Performed By: #### C BC, ADIFF, ANEU #### [place] [address] #### TROP, BMP, TSH, GFR #### [place] [address] MCV (RBC) [Entitic vol] 91.0 fL Normal 80.0-94.0 A [facility] ([place]) Comment on above: Performed By: #### C BC, ADIFF, ANEU #### [place] [address] #### TROP, BMP, TSH, GFR #### [place] [address] Platelet mean volume (Bld) [Entitic vol] 7.6 fL Normal 7.4-10.4 [facility] ([place]) Comment on above: Performed By: #### C BC, ADIFF, ANEU #### [place] [address] #### TROP, BMP, TSH, GFR #### [address] [address] Platelets (Bld) [#/Vol] 168 10 3/mcL Normal 130-400 [facility] ([place]) Comment on above: Performed By: #### C BC, ADIFF, ANEU #### [address] [address] #### TROP, BMP, TSH, GFR #### [address] [address] RBC (Bld) [#/Vol] 4.56 10 6/mcL Normal 4.04-6.13 [facility] ([place]) Comment on above: Performed By: #### C BC, ADIFF, ANEU #### [address] [address] #### TROP, BMP, TSH, GFR #### [address] [address] WBC (Bld) [#/Vol] 5.10 10 3/mcL Normal 4.60-10.80 [facility] ([place]) Comment on above: Performed By: #### C BC, ADIFF, ANEU #### [address] [address] #### TROP, BMP, TSH, GFR #### [address] [address] [address] HEAD OR BRAIN W/O CONTRAS Ton 08-09-2019 CT HEAD OR BRAIN W/O CONTRAST ORIGINAL CLINICAL HISTORY: weakness TECHNIQUE: Axial CT images from skull base to vertex without IV contrast. This exam was performed according to our departmental dose optimization program, and includes the following measures where applicable: automated exposure control, adjustment of the mAs and/or kVp according to patient size and/or exam, and an iterative reconstruction algorithm. COMPARISON: None available. FINDINGS: There is no evidence of mass, midline shift, hemorrhage, or infarct. Although the brain morphology appears normal, the ventricles, cortical sulci, and subarachnoid cisterns appear prominent. There are no extra-axial fluid collections. No regions of pathologic attenuation are evident. Decreased density is present within the periventricular white matter. Regions of the orbits and paranasal sinuses included within the field of view are unremarkable. There is no displaced fracture or osseous neoplasm. The extracalvarial soft tissues appear unremarkable. IMPRESSION: 1. No acute intracranial pathology. 2. Prominent CSF spaces usually indicate volume loss/atrophy as a manifestation of moderate chronic white matter ischemia. COMMENT: Changes resultant from ischemia (even significant ischemia) may often be inapparent on CT exam, particularly if imaged early. Additionally, early changes due to neoplastic or inflammatory processes can be subtle to the extent that they are not prospectively noted. Therefore, if symptoms persist, or clinical suspicion for pathology remains, further evaluation may be obtained with MRI. Interpreted By: Cristi Espinoza Preliminary Report By: Cristi Espinoza Electronically Signed By: Cristi Espinoza Dictated Date: 08/09/2019 12:00:16 AM Prelim Date: 08/09/2019 12:00:16 AM Sign Date: 08/09/2019 12:01:05 AM Ordering Provider:Robert Adame [facility] ([place]) MGon 08-09-2019 Magnesium [Mass/Vol] 1.8 mg/dL Normal 1.8-2.4 [facility]) Comment on above: Performed By: #### B MP, MG, GFR, VIDH, B12 ####[address] [address] TROPon 08-09-2019 Troponin I.cardiac [Mass/Vol] ng/mL Normal 0.000-0.040 [facility] ([place]) Comment on above: Result Comment: Trop onin I reference range: 0.00-0.040 ng/mL Negative and non-diagnostic. >0.040 ng/mL Consistent with cardiac damage, increased clinical risk and possibility of myocardial infarction. Serial measurements, a rise & fall in test results, clinical history, appropriate symptoms and/or ECG changes may help assess possibility of NC. *Other non-acute coronary syndrome conditions such as CHF, myocarditis, pulmonary emboli, sepsis and cardiac surgery could result in myocardial damage and increased troponin levels. Performed By: #### C BC, ADIFF, ANEU #### [place] [address] [address] #### TROP, BMP, TSH, GFR #### [place] [id number] [address] [place] [address] TSHon 08-09-2019 TSH Qn 1.72 mcIU/mL Normal 0.36-3.74 [facility] ([place]) Comment on above: Performed By: #### C BC, ADIFF, ANEU #### [address] [address] #### TROP, BMP, TSH, GFR #### [address] [address] UAon 08-09-2019 Color (U) Yellow Normal [facility] ([place]) Comment on above: Performed By: #### U A, UAMICAO ####[place] [address] Glucose (U) [Mass/Vol] Negative Normal Negative [facility] ([place]) Comment on above: Performed By: #### U A, UAMICAO ####[place] [address] Ketones Ql (U) Trace Abnormal Negative [facility] ([place]) Comment on above: Performed By: #### U A, UAMICAO ####[place] [address] UA Appear Clear Normal Clear [facility] ([place] Comment on above: Performed By: #### U A, UAMICAO ####[place] [address] UA Blood Small Abnormal Negative [facility] ([place] Comment on above: Performed By: #### U A, UAMICAO ####[place] [address] UA Leuk Est Trace Abnormal Negative [facility] [place] Comment on above: Performed By: #### U A, UAMICAO ####[place] [address] UA Nitrite Negative Normal Negative [facility] ([place] Comment on above: Performed By: #### U A, UAMICAO ####[place] [address] UA pH 5.0 Normal 5.0 - 8.0 [facility] ([place] Comment on above: Performed By: #### U A, UAMICAO ####[place] [address] UA Protein Negative Normal Negative [facility] ([place] Comment on above: Performed By: #### U A UAMICAO ####[place] [address] UA Spec Grav 1.025 Normal 1.015-1.025 [facility] [place] Comment on above: Performed By: #### U A UAMICAO ####[place] [address] UA Specimen Type Clean Catch Normal [facility] ([place] Comment on above: Performed By: #### U A UAMICAO ####[place] [address] UA Urobilinogen 0.2 E.U./dL Normal 0.2-1.0 [facility] ([place] Comment on above: Performed By: #### U A UAMICAO ####[place] [address] Urobilinogen Qn (U) Negative Normal Negative [facility] ([place]) Comment on above: Performed By: #### U A UAMICAO ####[place] [address] VIDHon 08-09-2019 Vit. D 25-Hydroxy 118 ng/mL Normal [facility] ([place]) Comment on above: Result Comment: Inte rpretive Values Based on Total 25(OH)D: Severe Deficiency <20 ng/mL Mild to Moderate Deficiency 20-30 ng/mL Optimum Levels 30-100 ng/mL Toxicity Possible >100 ng/mL Performed By: #### B MP, MG, GFR, VIDH, B12 ####[place] [address] XR CHEST 1 VIEWon 08-09-2019 XR CHEST 1 VIEW ORIGINAL XR CHEST 1 VIEW CLINICAL STATEMENT: weakness. COMPARISON: Chest x-ray on 08/29/2018 FINDINGS: Patient has had sternotomy. The heart size is normal. There is no acute infiltrate or pulmonary edema. No pleural fluid or pneumothorax is present. No acute osseous lesion is detected. IMPRESSION: No acute radiographic abnormality of the chest. Interpreted By: Jude Pennington MD Preliminary Report By: Jude Pennington MD Electronically Signed By: Jude Pennington MD Dictated Date: 08/08/2019 11:56:42 PM Prelim Date: 08/08/2019 11:56:42 PM Sign Date: 08/08/2019 11:57:53 PM Ordering Provider:Robert Adame [facility] ([place]) US GROIN LEFTon 08-29-2018 US GROIN LEFT ORIGINAL US GROIN LEFT CLINICAL STATEMENT: LEFT GROIN MASS COMPARISON: None FINDINGS:Real-time imaging in the area of palpable concern was performed. There is no obvious discrete solid or cystic lesion identified. There is limited evaluation for an abdominal wall or inguinal hernia. IMPRESSION:No obvious discrete mass. If there is concern of a hernia, CT is suggested for further evaluation Interpreted By: Laila Muse MD Preliminary Report By: Laila Muse MD Electronically Signed By: Laila Muse MD Dictated Date: 08/29/2018 3:00:36 PM Prelim Date: 08/29/2018 3:00:36 PM Sign Date: 08/29/2018 3:01:42 PM [facility] ([place]) XR RIBS 2 VIEWS RIGHT/PA [place] ST(AO)on 08-29-2018 XR RIBS 2 VIEWS RIGHT/PA CHEST(AO) ORIGINAL XR RIBS 2 VIEWS RIGHT/PA CHEST(AO) CLINICAL STATEMENT: LEFT GROIN MASS, LUMP OF RIB COMPARISON: None FINDINGS:The cardiac contours are grossly unremarkable with postoperative change to the sternum and mediastinum. Hilar prominence likely vascular in origin is noted primarily in the LEFT. The bony thorax is grossly intact within the imaged areas with no cortical disruption or bony destructive lesion confirmed. There are degenerative changes present in the spine. IMPRESSION:Degenera tive changes. No acute process Interpreted By: Laila Muse MD Preliminary Report By: Laila Muse MD Electronically Signed By: Laila Muse MD Dictated Date: 08/29/2018 4:30:13 PM Prelim Date: 08/29/2018 4:30:13 PM Sign Date: 08/29/2018 4:30:51 PM [facility] ([place]) Vital Signs Date Time Vital Sign Value Performing Clinician Faci lity 10-08-2024 14:25-0400 Body height 180.[address] Guilherme Butt MD Work Phone: [facility] 10-08-2024 14:25-0400 Body mass index (BMI) [Ratio] 25.7 kg/m2 Dr. Guilherme Butt MD Work Phone: [facility] 10-08-2024 14:25-0400 Body weight 83.[address] Guilherme Butt MD Work Phone: [facility] 10-08-2024 14:25-0400 Diastolic blood pressure 66 mm[Hg] Dr. Guilherme Butt MD Work Phone: [facility] 10-08-2024 14:25-0400 Heart rate 80 /min Dr. Guilherme Butt MD Work Phone: [facility] 10-08-2024 14:25-0400 Respiratory rate 18 /min Dr. Guilherme Butt MD Work Phone: [facility] 10-08-2024 14:25-0400 Systolic blood pressure 96 mm[Hg] Dr. Guilherme Butt MD Work Phone: [facility] 03-12-2023 13:59-0400 Body height 180.[address] Guilherme Butt Work Phone: [facility] 02-12-2023 16:01-0400 Diastolic blood pressure 76 mm[Hg] Dr. Guilherme Butt Work Phone: [facility] 02-12-2023 16:01-0400 Systolic blood pressure 131 mm[Hg] Dr. Guilherme Butt Work Phone: [facility] 02-12-2023 14:24-0400 Body temperature 97.8 [degF] Dr. Guilherme Butt Work Phone: [facility] 02-12-2023 14:24-0400 Heart rate 68 /min Dr. Guilherme Butt Work Phone: [facility] 02-12-2023 14:24-0400 Respiratory rate 18 /min Dr. Guilherme Butt Work Phone: [facility] 02-12-2023 14:24-0400 SaO2% (BldA) [Mass fraction] 93 % Dr. Guilherme Butt Work Phone: [facility] 02-12-2023 14:00-0400 Inhaled oxygen flow rate 3 L/min Dr. Guilherme Butt Work Phone: [facility] 02-12-2023 09:26-0400 Body height 180.[address] Guilherme Butt Work Phone: [facility] 02-12-2023 09:26-0400 Body mass index (BMI) [Ratio] 25.4 kg/m2 Dr. Guilherme Butt Work Phone: [facility] 02-12-2023 09:26-0400 Body weight 82.[address] Guilherme Butt Work Phone: [facility] 01-11-2023 14:37-0400 Body mass index (BMI) [Ratio] 24.9 kg/m2 Dr. Guilherme Butt Work Phone: [facility] 01-11-2023 14:37-0400 Body weight 83.[address] Guilherme Butt Work Phone: [facility] 01-11-2023 14:37-0400 Diastolic blood pressure 85 mm[Hg] Dr. Guilherme Butt Work Phone: [facility] 01-11-2023 14:37-0400 Respiratory rate 16 /min Dr. Guilherme Butt Work Phone: [facility] 01-11-2023 14:37-0400 Systolic blood pressure 130 mm[Hg] Dr. Guilherme Butt Work Phone: [facility] 09-04-2022 10:58-0400 Body height 182.[address] Guilherme Butt Work Phone: [facility] 09-04-2022 10:58-0400 Body mass index (BMI) [Ratio] 24.7 kg/m2 Dr. Guilherme Butt Work Phone: [facility] 09-04-2022 10:58-0400 Body weight 82.[address] Guilherme Butt Work Phone: [facility] 09-04-2022 10:58-0400 Diastolic blood pressure 48 mm[Hg] Dr. Guilherme Butt Work Phone: [facility] 09-04-2022 10:58-0400 Heart rate 84 /min Dr. Guilherme Butt Work Phone: [facility] 09-04-2022 10:58-0400 Respiratory rate 16 /min Dr. Guilherme Butt Work Phone: [facility] 09-04-2022 10:58-0400 Systolic blood pressure 80 mm[Hg] Dr. Guilherme Butt Work Phone: [facility] 08-02-2022 07:41-0400 Diastolic blood pressure 79 mm[Hg] Dr. Guilherme Butt Work Phone: [facility] 08-02-2022 07:41-0400 Heart rate 71 /min Dr. Guilherme Butt Work Phone: [facility] 08-02-2022 07:41-0400 Respiratory rate 16 /min Dr. Guilherme Butt Work Phone: [facility] 08-02-2022 07:41-0400 SaO2% (BldA) [Mass fraction] 97 % Dr. Guilherme Butt Work Phone: [facility] 03-22-2023 07:41-0400 Systolic blood pressure 114 mm[Hg] Dr. Guilherme Butt Work Phone: [facility] 08-02-2022 07:08-0400 Body height 182.[address] Guilherme Butt Work Phone: [facility] 08-02-2022 07:08-0400 Body mass index (BMI) [Ratio] 25.2 kg/m2 Dr. Guilherme Butt Work Phone: [facility] 08-02-2022 07:08-0400 Body temperature 98 [degF] Dr. Guilherme Butt Work Phone: [facility] 08-02-2022 07:08-0400 Body weight 84.[address] Guilherme Butt Work Phone: [facility] 05-22-2022 13:15-0500 Body height 182.[address] Guilherme Butt Work Phone: [facility] 04-03-2022 15:00-0500 Diastolic blood pressure 73 mm[Hg] Dr. Guilherme Butt Work Phone: [facility] 04-03-2022 15:00-0500 Heart rate 58 /min Dr. Guilherme Butt Work Phone: [facility] 04-03-2022 15:00-0500 Respiratory rate 15 /min Dr. Guilherme Butt Work Phone: [facility] 04-03-2022 15:00-0500 SaO2% (BldA) [Mass fraction] 95 % Dr. Guilherme Butt Work Phone: [facility] 04-03-2022 15:00-0500 Systolic blood pressure 138 mm[Hg] Dr. Guilherme Butt Work Phone: [facility] 04-03-2022 13:00-0500 Body temperature 97.8 [degF] Dr. Guilherme Butt Work Phone: [facility] 04-03-2022 10:08-0500 Body mass index (BMI) [Ratio] 24.9 kg/m2 Dr. Guilherme Butt Work Phone: [facility] 04-03-2022 10:08-0500 Body weight 83.[address] Guilherme Butt Work Phone: [facility] 10-03-2021 00:46-0400 Diastolic blood pressure 80 mm[Hg] AXEL-Devan [facility] Work Phone: 10-03-2021 00:46-0400 Heart rate 91 /min AXEL-Devan Gray [facility] Work Phone: 10-03-2021 00:46-0400 Respiratory rate 16 /min AXEL-Devan Gray [facility] Work Phone: 10-03-2021 00:46-0400 SaO2% (BldA) [Mass fraction] 95 % COLOR BLENDER-Devan Gray [facility] Work Phone: 10-03-2021 00:46-0400 Systolic blood pressure 160 mm[Hg] AXEL-Devan Gray [facility] Work Phone: 10-02-2021 20:20-0400 Body height 177.8 cm TIFFANY Gray [facility] Work Phone: 10-02-2021 20:20-0400 Body mass index (BMI) [Ratio] 27.8 kg/m2 AXEL-Devan Gray [facility] Work Phone: 10-02-2021 20:20-0400 Body temperature 98.7 [degF] AXEL-Devan Gray [facility] Work Phone: 10-02-2021 20:20-0400 Body weight 88 kg TIFFANY Gray [facility] Work Phone: Encounters Encounter Date Encounter Type Care Provider Facility Start: 10-08-2024 End: 10-08-[address] Dwain Yen MD -[facility] Work Phone: Start: 10-08-2024 End: 10-08-[address] Guilherme Butt MD Work Phone: [facility] Work Phone: Start: 09-19-2024 End: 09-19-[address] Guilherme Butt MD Work Phone: [facility] Work Phone: Start: 09-19-2024 End: 09-19-2024 Departed Referred Guilherme Butt MD -[facility] Start: 09-19-2024 Registered Referred Guilherme Butt MD [facility] Start: 09-19-2024 End: 09-19-2024 ambulatory Guilherme SHI Facility:[facility] Start: 08-22-2024 End: 08-22-[address] Guilherme Butt MD Work Phone: [facility] Work Phone: Start: 08-22-2024 End: 08-22-2024 Departed Referred Cecy ALLEN -[facility] Start: 08-22-2024 End: 08-22-2024 ambulatory Cecy SHI Facility:[facility] Start: 07-29-2024 End: 07-29-2024 ambulatory Guilherme Butt [facility] Start: 07-29-2024 End: 07-29-[address] Guilherme Butt MD -[facility] Work Phone: Start: 07-25-2024 End: 07-25-[address] Guilherme Butt MD Work Phone: [facility] Work Phone: Start: 07-25-2024 End: 07-25-2024 [facility]: 07-25-2024 End: 07-25-2024 ambulatory Efewongbe Yonasmariane OLS Facility:[facility] Start: 07-03-2024 End: 07-03-2024 ambulatory Efewongbe Oleghe Facility:[facility] Start: 07-03-2024 End: 07-03-2024 Patient encounter procedure Camilo AGRAWAL -[facility] Work Phone: Start: 06-27-2024 ambulatory Efewongbe Oleghe OLS Fa cility:[facility] Start: 06-27-2024 [facility] Start: 05-27-2024 End: 05-27-2024 ambulatory Efewongbe Yonasmariane Facility:[facility] Start: 05-27-2024 End: 05-27-[address] Guilherme Butt MD -[facility] Work Phone: Start: 05-23-2024 End: 05-23-2024 [facility]: 05-23-2024 End: 05-23-2024 ambulatory Efewongbe Travise OLS Facility:[facility] Start: 04-25-2024 End: 04-25-2024 [facility] Start: 04-25-2024 End: 04-25-2024 ambulatory Efewongbe Travise OLS Facility:[facility] Start: 04-15-2024 End: 04-15-2024 ambulatory Efewongbe Olemariane Facility:[facility] Start: 03-20-2024 End: 03-21-2024 ambulatory Efewongbe Olemariane Facility:[facility] Start: 02-22-2024 ambulatory Efewongbe Oleghe Facili ty:[facility] Start: 02-15-2024 End: 02-15-2024 ambulatory Cecy Gray NP Facility:[facility] Start: 01-29-2024 End: 01-29-2024 ambulatory Efewongbe Oleghe Facility:[facility] Start: 01-25-2024 ambulatory Reillybe Travise Facili ty:[facility] Start: 01-10-2024 ambulatory Efkieranvalley headbe Travise Facili ty:[facility] Start: 01-08-2024 End: 01-08-2024 ambulatory Reillybe Oleghe Facility:[facility] Start: 12-21-2023 ambulatory Kellyvalley headdmitri Roblese OLS Fa cility:[facility] Start: 11-27-2023 End: 11-27-2023 ambulatory Kellyvalley headdmitri Olemariane Facility:[facility] Start: 11-23-2023 End: 11-23-2023 ambulatory Cecy Gray OLS Facility:[facility] Start: 11-08-2023 End: 11-08-2023 ambulatory Cecy Gray COLOR BLENDER Facility:[facility] Start: 10-26-2023 End: 10-26-2023 ambulatory Cecyhan Gray OLS Facility:[facility] Start: 09-06-2023 End: 09-06-[address] Guilherme Butt Work Phone: [facility] Work Phone: Start: 08-24-2023 End: 08-24-[address] Guilherme Butt Work Phone: [facility] Work Phone: Start: 08-24-2023 End: 08-24-[address] Guilherme Butt Work Phone: [facility] Start: 07-24-2023 End: 07-24-[address] Guilherme Butt Work Phone: [facility] Work Phone: Start: 07-20-2023 End: 07-20-[address] Guilherme Butt Work Phone: [facility] Work Phone: Start: 07-20-2023 End: 07-20-[address] Guilherme Butt Work Phone: [facility] Start: 07-05-2023 End: 07-05-[address] Guilherme Butt Work Phone: [facility] Work Phone: Start: 06-22-2023 End: 06-22-[address] Guilherme Butt Work Phone: [facility] Start: 05-29-2023 End: 05-29-[address] Guilherme Butt Work Phone: [facility] Work Phone: Start: 05-25-2023 End: 05-25-[address] Guilherme Butt Work Phone: [facility] Work Phone: Start: 05-25-2023 End: 05-25-[address] Guilherme Butt Work Phone: [facility] Start: 04-20-2023 End: 04-20-[address] Guilherme Butt Work Phone: [facility] Start: 04-16-2023 End: 04-16-[address] Guilherme Butt Work Phone: [facility] Work Phone: Start: 03-27-2023 End: 03-27-[address] Guilherme Butt Work Phone: [facility] Work Phone: Start: 03-23-2023 End: 03-23-[address] Guilherme Butt Work Phone: [facility] Work Phone: Start: 03-23-2023 End: 03-23-[address] Guilherme Butt Work Phone: [facility] Start: 03-07-2023 End: 03-07-[address] Guilherme Butt Work Phone: [facility] Work Phone: Start: 02-23-2023 End: 02-23-[address] Guilherme Butt Work Phone: [facility] Work Phone: Start: 02-23-2023 End: 02-23-[address] Guilherme Butt Work Phone: [facility] Start: 02-13-2023 End: 02-13-[address] Guilherme Butt Work Phone: [facility] Work Phone: Start: 02-12-2023 Non-patient / Non-visit Dr. Roselia Butt Work Phone: [facility] Start: 02-12-2023 End: 02-12-2023 Admission to same day surgery center Dr. Guilherme Butt Work Phone: [facility] Start: 02-12-2023 End: 02-12-[address] Guilherme Butt Work Phone: [facility] Work Phone: Start: 02-06-2023 End: 02-06-[address] Guilherme Butt Work Phone: [facility] Start: 02-06-[address] Ann Butt Work Phone: [facility] Start: 01-30-2023 End: 01-30-[address] Guilherme Butt Work Phone: [facility] Work Phone: Start: 01-19-2023 End: 01-19-[address] Guilherme Butt Work Phone: [facility] Start: 01-11-2023 End: 01-11-[address] Guilherme Butt Work Phone: [facility] Work Phone: Start: 01-03-2023 End: 01-03-[address] Guilherme Butt Work Phone: [facility] Work Phone: Start: 12-22-2022 End: 12-22-[address] Guilherme Butt Work Phone: [facility] Work Phone: Start: 12-22-2022 End: 12-22-[address] Guilherme Butt Work Phone: [facility] Start: 12-22-[address] Ann Butt Work Phone: [facility] Start: 11-28-2022 End: 11-28-[address] Guilherme Butt Work Phone: [facility] Work Phone: Start: 11-24-2022 End: 11-24-[address] Guilherme Butt Work Phone: [facility] Work Phone: Start: 11-24-2022 End: 11-24-[address] Guilherme Butt Work Phone: [facility] Start: 11-24-[address] Ann Butt Work Phone: [facility] Start: 11-08-2022 End: 11-08-[address] Guilherme Butt Work Phone: [facility] Work Phone: Start: 10-20-2022 End: 10-20-[address] Guilherme Butt Work Phone: [facility] Work Phone: Start: 10-20-2022 End: 10-20-[address] Guilherme Butt Work Phone: [facility] Start: 10-03-2022 End: 10-03-[address] Guilherme Butt Work Phone: [facility] Work Phone: Start: 09-22-2022 End: 09-22-[address] Guilherme Butt Work Phone: [facility] Start: 09-21-2022 Non-patient / Non-visit Dr. Roselia Butt Work Phone: [facility] Start: 09-21-2022 End: 09-21-[address] Guilherme Butt Work Phone: [facility] Work Phone: Start: 09-04-2022 End: 09-04-[address] Guilherme Butt Work Phone: [facility] Start: 08-25-2022 End: 08-25-[address] Guilherme Butt Work Phone: [facility] Work Phone: Start: 08-25-2022 End: 08-25-[address] Guilherme Butt Work Phone: [facility] Start: 08-23-2022 Non-patient / Non-visit Dr. Roselia Butt Work Phone: [facility] Start: 08-10-2022 End: 08-10-[address] Guilherme Butt Work Phone: [facility] Start: 08-02-2022 End: 08-02-[address] Guilherme Butt Work Phone: [facility] Start: 08-02-2022 End: 08-02-2022 Emergency department patient visit Dr. Guilherme Butt Work Phone: [facility] Start: 07-25-2022 End: 07-25-[address] Guilherme Butt Work Phone: [facility] Start: 07-21-2022 End: 07-21-[address] Guilherme Butt Work Phone: [facility] Work Phone: Start: 07-21-2022 End: 07-21-[address] Guilherme Butt Work Phone: [facility] Start: 07-21-[address] Ann Butt Work Phone: [facility] Start: 06-27-2022 End: 06-27-[address] Guilherme Butt Work Phone: [facility] Start: 06-23-2022 End: 06-23-[address] Guilherme Butt Work Phone: [facility] Work Phone: Start: 06-23-2022 End: 06-23-[address] Guilherme Butt Work Phone: [facility] Start: 06-23-[address] Ann Butt Work Phone: [facility] Start: 06-06-2022 End: 06-06-[address] Guilherme Butt Work Phone: [facility] Start: 05-26-2022 End: 05-26-[address] Guilherme Butt Work Phone: [facility] Work Phone: Start: 05-26-2022 End: 05-26-[address] Guilherme Butt Work Phone: [facility] Start: 05-26-[address] Ann Butt Work Phone: [facility] Start: 05-18-2022 End: 05-18-[address] Guilherme Butt Work Phone: [facility] Start: 05-02-2022 End: 05-02-[address] Guilherme Butt Work Phone: [facility] Start: 04-21-2022 End: 04-21-[address] Guilherme Butt Work Phone: [facility] Work Phone: Start: 04-21-2022 End: 04-21-[address] Guilherme Butt Work Phone: [facility] Start: 04-21-[address] Ann Butt Work Phone: [facility] Start: 04-04-2022 End: 04-04-[address] Guilherme Butt Work Phone: [facility] Start: 04-03-2022 End: 04-03-[address] Guilherme Butt Work Phone: [facility] Start: 04-03-2022 End: 04-03-2022 Emergency department patient visit Dr. Guilherme Butt Work Phone: [facility] Start: 03-28-2022 End: 03-28-[address] Guilherme Butt Work Phone: [facility] Start: 03-24-2022 End: 03-24-[address] Guilherme Butt Work Phone: [facility] Work Phone: Start: 03-24-2022 End: 03-24-[address] Guilherme Butt Work Phone: [facility] Start: 02-24-2022 End: 02-24-[address] Guilherme Butt Work Phone: [facility] Start: 02-24-[address] Maikel allen Work Phone: [phone] [address] Start: 02-07-2022 End: 02-07-[address] Maikel Mosquera Work Phone: [phone] [place] [address] Work Phone: Start: 02-07-2022 End: 02-07-[address] Maikel Mosquera Work Phone: [phone] [place] [address] Start: 02-07-[address] Maikel allen Work Phone: [phone] [place] [address] Start: 01-20-2022 End: 01-20-[address] Maikel Mosquera Work Phone: [phone] [place] [address] Work Phone: Start: 01-20-2022 End: 01-20-[address] Maikel Mosquera Work Phone: [phone] [place] [address] Start: 12-23-2021 End: 12-23-[address] Maikel Mosquera Work Phone: [phone] [place] [address] Work Phone: Start: 12-23-2021 End: 12-23-[address] Maikel Mosquera Work Phone: [phone] [place] [address] Start: 12-12-2021 End: 12-12-[address] Maikel Mosquera Work Phone: [facility] Start: 11-18-2021 End: 11-18-2021 Departed Referred COLOR BLENDER-Devan Gray COLOR BLENDER [facility] Start: 10-21-2021 End: 10-21-2021 Departed Referred COLOR BLENDER-Devan Gray COLOR BLENDER [facility] Start: 10-02-2021 End: 10-03-2021 Emergency department patient visit COLOR BLENDER-Devan Gray COLOR BLENDER [facility] Start: 09-23-2021 End: 09-23-2021 Departed Referred COLOR BLENDER-C Cecy Gray NP [facility] Start: 09-23-2021 Registered Referred COLOR BLENDERRobi Gray NP [facility] Start: 09-19-2021 End: 09-19-2021 Patient encounter procedure COLOR BLENDER-Devan Gray NP [facility] Start: 08-19-2021 End: 08-19-2021 Departed Referred [facility] Start: 08-19-2021 Registered Referred [facility] Start: 07-22-2021 End: 07-22-2021 Departed Referred [facility] Start: 07-22-2021 Registered Referred [facility] Start: 06-24-2021 End: 06-24-2021 Departed Referred [facility] Start: 05-27-2021 End: 05-27-2021 Departed Referred [facility] Procedures Date Procedure Procedure Detail Performing Clinician Start: 06-27-2024 Measurement of renal function Dr. Guilherme Butt MD Work Phone: Comment on above: GFR Calc Start: 05-23-2024 Measurement of renal function Dr. Guilherme Butt MD Work Phone: Comment on above: GFR Calc Start: 02-12-2023 Lap Robotic Inguinal Hernia (Bilateral) Dr. Guilhemre Butt Work Phone: Start: 09-21-2022 Cardiovascular stres s test using pharmacologic stress agent Dr. Guilherme Butt Work Phone: Start: 04-03-2022 Plain chest X-ray Dr. Jessenia Butt Work Phone: Start: 10-02-2021 CT of head without contrast TIFFANY Gray NP Plan of Treatment Date Care Activity Detail Author Start: 02-12-2023 Anesthesia intraperi toneal lower abd w/laps nos ANESTH SURG LOWER ABDOMEN [facility] Start: 02-12-2023 Laparoscopy surg rpr initial inguinal hernia LAP ING HERNIA REPAIR INIT [facility] Start: 02-12-2023 Patient discharge [facility] Start: 02-12-2023 [facility] NM Heart Views W str ess and W radionuclide IV [facility] Patient Education [facility] Work Phone: Patient referral [facility] Work Phone: [facility] Payers Date Payer Category Payer Self-pay [id number] 2023 Unknown [id number] 2023 Unknown [id number] 2014 Unknown [id number] Medicare [id number] Unknown [id number] Unknown [id number] 2.16.8 [id number] Unknown [id number] 2.16.8 [id number] Unknown [id number] 2.16.8 40.1.210501.3.579.2.462 Unknown [id number] 2.16.8 40.1.984902.3.579.2.462 Unknown [id number] 2.16.8 40.1.517276.3.579.2.462 Unknown [id number] 2.16.8 40.1.145419.3.579.2.462 Unknown [id number] 2.16.8 40.1.929429.3.579.2.462 Unknown [id number] 2.16.8 40.1.008581.3.579.2.462 Unknown [id number] 2.16.8 40.1.973555.3.579.2.462 Unknown [id number] 2.16.8 40.1.341506.3.579.2.462 Unknown [id number] 2.16.8 40.1.911077.3.579.2.462 Unknown [id number] 2.16.8 40.1.030748.3.579.2.462 Unknown [id number] 2.16.8 40.1.324586.3.579.2.462 Unknown [id number] 2.16.8 40.1.276323.3.579.2.462 Unknown [id number] 2.16.8 40.1.865819.3.579.2.462 Unknown [id number] 2.16.8 40.1.889580.3.579.2.462 Unknown [id number] 2.16.8 40.1.633291.3.579.2.462 Unknown [id number] 2.16.8 40.1.608961.3.579.2.462 Unknown [id number] 2.16.8 40.1.962549.3.579.2.462 Unknown [id number] 2.16.8 40.1.448140.3.579.2.462 Unknown [id number] 2.16.8 40.1.294264.3.579.2.462 Unknown [id number] 2.16.8 40.1.018682.3.579.2.462 Unknown [id number] 2.16.8 40.1.097389.3.579.2.462 Unknown [id number] 2.16.8 40.1.684711.3.579.2.462 Social History Date Type Detail Facility Start: 07-24-2016 End: 03-12-2023 Tobacco smoking status NDIS Unknown if ever smoked [facility] Start: 04-21-2021 None [facility] Start: 12-09-2021 Non-smoker [facility] Start: 1945 Sex Assigned At Male [facility] Start: 03-12-2023 Tobacco smoking stat us NHIS Ex-smoker (finding) [facility] Start: 08-15-2024 Sex Male (finding) [facility] Medical Equipment Procedure Code Equipment Code Equipment Origin al Text Equipment Identifier Dates Extra-gynaecolog ical surgical mesh, composite-polymer [id number] FDA Start: 02-12-2023 Goals Date Patient Goal Desired Activity /State Mental Status Date Assessment Result Facility 02-12-2023 Cognitive function Level Of Cons ciousness Follows Commands;Drowsy [facility] Work Phone: 04-03-2022 Cognitive function Level Of Cons ciousness Awake;Alert;Appropriate [facility] Work Phone: 10-02-2021 Cognitive function Voice/Name [facility] Work Phone: Clinical Notes 11-11-2005 to 10-08-2024 Note Date & Type Note Facility 10-08-2024 Progress note [facility] 10-08-2024 Progress note Note Date/Time October 08, 2024 2:43pm [facility] [address] [place] [address] OFFICE VISIT Date of Service: 10/08/24 MR#: [id number] Acct: [id number] Name: IGOR CRUZ Rep #: [id number] : 1945 Provider: Dr. Isai Yen MD Age/Sex: 79/M [facility] [facility] Status: Signed HPI HPI History of Present Illness Details: This gentleman with history of paroxysmal atrial fibrillation, not a candidate for anticoagulation on account of frequent falls, aortic valve disease status post replacement with a bioprosthetic valve in 2005 and Parkinson's disease is here for follow-up visit. Denies any complaints. Denies chest pains. No shortness of breath. No palpitations. No orthopnea or PND. Occasional ankle edema. Intake Vital Signs 03/12/23 13:59 05/28/25 14:25 Height 5 ft 11 in 5 ft 11 in Weight: 185 lb BMI 25.7 BP 96/66 Blood Pressure Location Lt brachial Position Sitting Respiration 18 Pulse 80 Pulse Source NIBP Intake Visit Reasons: OVER DUE Mandrel Puller Required: No Accompanied by: Self Is patient in pain?: No Allergies No Known Allergies Allergy (Verified 10/08/24 14:27) Medications ?Medication ?Instructions ?Recorded ?Confirmed ?Type acetaminophen 325 mg tablet 650 mg PO TID 09/04/22 History aluminum-mag hydroxide-simethicone 15 ml PO DAILY PRN indigestion 09/04/22 10/08/24 History 400 mg-400 mg-40 mg/5 mL oral susp (Mylanta Maximum Strength) aspirin 81 mg tablet,delayed 81 mg PO DAILY #30 tabs 0 09/04/22 10/08/24 Rx release (Adult Low Dose Aspirin) bisacodyl 10 mg rectal suppository 10 mg MD DAILY PRN constipation 09/04/22 10/08/24 History carbidopa ER 50 mg-levodopa 200 mg 1 tab PO QHS 10/08/24 History tablet,extended release duloxetine 60 mg capsule,delayed 60 mg PO DAILY 10/08/24 History release magnesium hydroxide 400 mg/5 mL 30 ml PO DAILY PRN sto mach upset 09/04/22 10/08/24 History oral suspension (Milk of Magnesia) melatonin 10 mg tablet 10 mg PO HS 09/04/22 5 History mirabegron 25 mg tablet,extended 25 mg PO DAILY 10/08/24 History release 24 hr (Myrbetriq) polyethylene glycol 3350 17 gram 17 g PO DAILY 3 10/08/24 History oral powder packet (Miralax) quetiapine 100 mg tablet 100 mg PO QHS 09/04/2210/08 History quetiapine 50 mg tablet 50 mg PO DAILY 09/04/2209/12 History rivastigmine tartrate 4.5 mg 6 mg PO BID 09/04/2209/12 History capsule sennosides 8.6 mg-docusate sodium 1 tab-cap PO BID 10/08/24 History 50 mg tablet (Senna-S) carbidopa 25 mg-levodopa 100 mg 1 tab PO TID 01/11/23 10/08/24 History tablet pimavanserin 34 mg capsule 34 mg PO QDAY 10/08/2409/12 History (Nuplazid) Ejection fraction %: 55 Have you fallen in the past year?: No PFSH Medical History Anxiety Atrial fibrillation Back pain Benign prostate hyperplasia Cardiac arrhythmia Cardiology follow-up encounter Chronic osteoarthritis CKD (chronic kidney disease) stage 3, GFR 30-59 ml/min Dementia Depression Endocarditis Essential hypertension Hallucination History of echocardiogram History of edema History of stress test Hypertension Kidney disease Lives in senior care Parkinson disease Parkinson's disease Syncope Valvular heart disease Walker as ambulation aid Surgical History History of aortic valve replacement with bioprosthetic valve (~11/21/05) History of ascending aortic replacement (~11/21/05) History of back surgery History of bunionectomy of right great toe History of foot surgery History of hip replacement History of robot-assisted repair of left inguinal hernia (~02/2023) Hx of cystoscopy Family History Mother Cancer Stomach Father Cancer Prostate COPD (chronic obstructive pulmonary disease) Social History Smoking Status: Former smoker alcohol intake: never substance use type: does not use caffeine: No ROS Const Const: Negative for fatigue, weakness, headache(s) or weight gain ENT ENT: Positive for balance problems; Negative for headache(s), dizziness or Nosebleed/epistaxis Cardio Chest Pain: No Palpitations: No Edema: None Muscle aches with walking: None Resp Respiratory: Negative for SOB with activity, SOB at rest or SOB orthopneaundefinedSOB lying down GI GI: Negative nausea, vomiting or heartburn Musc Musc: Positive for joint pain (chronic lower back pain) and balance problems; Negative for muscle aches/ myalgia or muscle weakness Neuro Neuro: Negative for dizziness, lightheadedness, near syncope, syncope, headache(s) or weakness Endo Endo: Negative for fatigue Cardiology Exam Const Appearance: comfortable and no acute distress Nutritional Appearance: well nourished Neck Neck: no JVD Carotids: Negative bruit Chest Auscultation: Bilateral: Clear to Auscultation Cardio Rate: regular rate Rhythm: regular rhythm Heart sounds: S1 normal, S2 normal and murmur (3/6 systolic murmur at base) Neuro General: patient alert, patient awake and patient oriented x3 Extremities Lower Extremity Edema: Trace: Bilateral Supplemental Info Supplemental Information Echocardiogram 09/21/2022: Interpretation Summary Normal LV size. The estimated ejection fraction is 55 %. Moderately dilated aortic root. Bioprosthetic aortic valve. Mild concentric left ventricular hypertrophy. Stage 1 diastolic dysfunction. Pulmonary artery systolic pressure is 28 mmHg. ECHOCARDIOGRAM 09/05/2017: Interpretation Summary The estimated ejection fraction is 65 %. Normal diastology for age. Hypermobile atrial septum. Mild (1+) tricuspid valve insufficiency. Right ventricular systolic pressure estimated to be 36 mmHg. Bioprosthetic aortic valve. Mild (1+) eccentric aortic valve insufficiency. Moderately dilated aortic root just above bioprosthetic AVR, with no evidence offalse lumen or dissection. There is no comparison study available. Stress Test 09/21/2022: Conclusion: Normal pharmacologic myocardial perfusion stress test. Preserved ejection fraction. STRESS TEST 04/28/2013: Conclusion: Regular treadmill test showed no evidence of induced ischemia. Blood pressure to response to exercise was normal. Overall exercise tolerance for patients age is fair approximately 7 METS. NYHA class I. There were no exercise induced arrhythmia noted. Small inferior wall scar, no reversible ischemia Moderate septal hypokinesis with a calculated ejection fraction of 63% Assessment and Plan Assessment and Plan (1) Paroxysmal atrial fibrillation: Status: Chronic Plan: History of falls, not a candidate for anticoagulation. Continue aspirin. (2) History of aortic valve replacement with bioprosthetic valve: Status: Acute Comment: 27mm Medtronic mosaic porcine bioprosthesis- resection of aneurysm of ascendingaorta and replacement of a hemisheild graft @ [facility] 11/21/05 Plan: Repeat echocardiogram. (3) Parkinson's disease: Status: Chronic Plan: Manage as per primary care physician/neurology. Plan Details Follow Up: 6 Months Coding Level of Care Code Off vis,est,level 3 Diagnoses Paroxysmal atrial fibrillation I48.0 History of aortic valve replacement with bioprosthetic valve Z95.3 Parkinson's disease G20 Coding Level of Care Code Off vis,est,level 3 Diagnoses Paroxysmal atrial fibrillation I48.0 History of aortic valve replacement with bioprosthetic valve Z95.3 Parkinson's disease G20 Clinical Quality Measures Falls Risk Screening/Assistive Devices Have you fallen in the past year?: No Cardiac Ejection fraction %: 55 10/08/24 1443 <Electronically signed by Dwain Yen MD> Date _ Dwain Yen MD Cosigner Signature: Date (if applicable) CC: Dr. Guilherme Butt MD ~ [facility] Work Phone: 1(137) 679-965610-02-2023 Discharge summary Author Ori Jones [facility] February 12, 2023 1:48pm Note Date/Time February 12, 2023 1: 47pm [facility] Medical Records Department [address] [place] [address] Instructions for Home/Discharge Instructions 02/12/23 1347 MR#: [id number] Acct: [id number] Name: IGOR CRUZ Rep #:[id number] : 1945 77 From: Ori wooten MD PCP: Dr. Guilherme Butt MD Status:R [facility] Discharge Instructions Procedure Hernia Diet Discharge Diet: Light diet - advance as tolerated Activity Discharge Activity: May Not Drive (for 2-3 days or while taking narcotic pain meds.) and May Shower (with the bandage in place 1-2 days after surgery.) Lifting Restrictions: 20 pounds for 4 weeks. Additional Activity Instructions:: Climbing stairs is fine, walking is encouraged. Sitting in bed may be uncomfortable. Sitting up using your lateral muscles (sitting up sideways) is usually more comfortable. Do not drive, work heavy equipment of sign legal documents for 24 hours. If your hernia repair was an ingunial repair, you may have scrotal swelling, an ice pack and/or athletic support can provide more comfort. Pain medications may cause nausea, you should typically eat light foods as you take your pain medications. Pain medications may also cause constipation. If you have difficulty with this, discuss with your doctor. Dressing / Incision Call your doctor if your incision/area has: Continuous Slow Oozing, Sudden Increased Bleeding, Increased Pain/ Swelling, Increased Redness and Foul Smelling Discharge Call your doctor if you observe: Fever of 101 or Higher Suture Line Care: Avoid Pulling/Pushing and Avoid Pinching/Bending Remove Dressing in: 2 days (Remove clear bandages in 2 days, remove Steri- Stripsin 7 to 10 days.) Cleanse incision/area with: Soap & Water Follow Up Care Please Follow Up With: Ori Jones MD When: Please call to schedule 2 week follow up appointment. [phone] Test Results: Test results from this visit will be discussed in further detail at your follow- up appointment, if applicable. Discharge Plan Admission Attending Provider: Ori Jones Primary Care Provider: Guilherme Butt Instructions Additional Instructions / Restrictions: Alternate ibuprofen and Tylenol for pain, may resume aspirin Sunday. Discharge Orders/Prescriptions Prescriptions: No Action acetaminophen 325 mg tablet 650 mg PO TID bisacodyl 10 mg suppository 10 mg MD DAILY PRN (Reason: constipation) carbidopa-levodopa 50-200 mg tablet extended release 1 tab PO QHS duloxetine 60 mg capsule,delayed release(DR/EC) 60 mg PO DAILY melatonin 10 mg tablet 10 mg PO HS magnesium hydroxide [Milk of Magnesia] 400 mg/5 mL suspension 30 ml PO DAILY PRN (Reason: stomach upset) polyethylene glycol 3350 [Miralax] 17 gram powder in packet 17 g PO DAILY alum-mag hydroxide-simeth [Mylanta Maximum Strength] 400-400-40 mg/5 mL suspension 15 ml PO DAILY PRN (Reason: indigestion) Myrbetriq 25 mg tablet extended release 24 hr 25 mg PO DAILY quetiapine 100 mg tablet 100 mg PO QHS quetiapine 50 mg tablet 50 mg PO DAILY rivastigmine tartrate 4.5 mg capsule 6 mg PO BID sennosides-docusate sodium [Senna-S] 8.6-50 mg tablet 1 tab-cap PO BID aspirin [Adult Low Dose Aspirin] 81 mg tablet,delayed release (DR/EC) 81 mg PO DAILY Qty: 30 12RF carbidopa-levodopa 25-100 mg tablet 1 tab PO TID Referrals / Follow Up: Guilherme Butt MD [Primary Care Provider] - Disposition Disposition (needs filled in before D/C Order can be placed): Home, Self Care 02/12/23 1348<Electronically signed by Ori Jones MD>Ori Jones MD CC: Dr. Guilherme Butt MD ~ Signed [facility] Work Phone: 1(727) 826-247810-02-[address] [facility] 02-12-2023 History and physical note Author [facility] February 12, 2023 10:45am Note Date/Time February 12, 2023 10 :46am [facility] Medical Records Department [address] [place] [id number] History & Physical Exam 02/12/23 1045 MR#: [id number] Acct: [id number] Name: IGOR CRUZ Rep #:[id number] : 1945 77 From: Ori wooten MD PCP: Dr. Guilherme Butt MD Status:R [facility] Location: [place] [address] History and Physical Date of Admission: 02/12/23 Intake Vital Signs 09/04/2309:58 01/11/2314:37 Height 6 ft 6 ft Weight: 184 lb BMI 24.9 BP 130/85 H Blood Pressure Location Lt brachial Position Sitting Respiration 16 Intake Visit Reasons: INGUINAL HERNIA Chief Complaint: inguinal hernia Mandrel Puller Required: No Is patient in pain?: No Allergies No Known Allergies Allergy (Verified 01/11/23 14:38) Medications acetaminophen 325 mg tablet 650 mg PO TID PRN 09/04/22 [History Confirmed 01/11/23] aluminum-mag hydroxide-simethicone 400 mg-400 mg-40 mg/5 mL oral susp (Mylanta Maximum Strength) 15 ml PO DAILY 09/04/22 [History Confirmed 01/11/23] aspirin 81 mg tablet,delayed release (Adult Low Dose Aspirin) 81 mg PO DAILY #30tabs 09/04/22 [Rx Confirmed 01/11/23] bisacodyl 10 mg rectal suppository 10 mg MD DAILY PRN 09/04/22 [History Confirmed 01/11/23] carbidopa ER 50 mg-levodopa 200 mg tablet,extended release 1 tab PO QHS 09/04/22[History Confirmed 01/11/23] duloxetine 60 mg capsule,delayed release 60 mg PO DAILY 09/04/22 [History Confirmed 01/11/23] magnesium hydroxide 400 mg/5 mL oral suspension (Milk of Magnesia) 30 ml PO DAILY PRN 09/04/22 [History Confirmed 01/11/23] melatonin 10 mg tablet 10 mg PO HS PRN 09/04/22 [History Confirmed 01/11/23] mirabegron 25 mg tablet,extended release 24 hr (Myrbetriq) 25 mg PO DAILY 09/04/22 [History Confirmed 01/11/23] polyethylene glycol 3350 17 gram oral powder packet (Miralax) 17 g PO DAILY 09/04/22 [History Confirmed 01/11/23] quetiapine 100 mg tablet 100 mg PO QHS 09/04/22 [History Confirmed 01/11/23] quetiapine 50 mg tablet 50 mg PO DAILY 09/04/22 [History Confirmed 01/11/23] rivastigmine tartrate 4.5 mg capsule 4.5 mg PO BID 09/04/22 [History Confirmed 01/11/23] sennosides 8.6 mg-docusate sodium 50 mg tablet (Senna-S) 1 tab-cap PO BID 09/04/22 [History Confirmed 01/11/23] carbidopa 25 mg-levodopa 100 mg tablet 1 tab PO 01/11/23 [History Confirmed 01/11/23] PFSH Medical History Anxiety Atrial fibrillation Back pain Benign prostate hyperplasia Bicuspid aortic valve Cardiac arrhythmia Chronic osteoarthritis CKD (chronic kidney disease) stage 3, GFR 30-59 ml/min Dementia Depression Endocarditis Essential hypertension Hallucination Hypertension Inguinal hernia Kidney disease Parkinson disease Parkinson's disease Valvular heart disease Surgical History History of aortic valve replacement with bioprosthetic valve (~11/21/05) History of ascending aortic replacement (~11/21/05) History of foot surgery History of hip replacement Family History Mother Cancer StomachFather Cancer Prostate COPD (chronic obstructive pulmonary disease) Social History Smoking Status: Former smoker alcohol intake: never substance use type: does not use caffeine: No HPI HPI HPI: Patient is a pleasant 77-year-old male with a left inguinal hernia. He comes to from a senior care. He reports is been there for at least 6 months and has been growing larger. He reports hearing sloshing around when he rolls over. Hedenies nausea or vomiting currently. ROS General General: Yes fatigue; No weight change, appetite, colon cancer, breast cancer or weakness HEENT HEENT: No difficulty swallowing, eye injury, eye surgery, swollen glands or hoarseness Endo Endocrine: No thyroid disease, diabetes mellitus, thyroid cancer, Hair loss, heat intolerance or cold intolerance Skin Skin: No rash or changing moles Breast Breast: No left breast lump, right breast lump, nipple discharge, breast pain, abnormal mammogram, abnormal US or breast enlargement Musc Musculoskeletal: Yes back problems and arthritis; No rheumatoid arthritis, gout or joint pain Cardio Cardiovascular: No murmur, pacemaker, heart disease, atrial fibrillation, high blood pressure, heart attack, heart stent, palpitations, shortness of breat withexertion or chest pain Psych Psychiatric: Yes depression and anxiety; No hearing voices Resp Respiratory: No shortness of breath, No sleep apnea, No cough, No COPD, No asthma, No emphysema and No wheezing Gastro Gastrointestinal: No abdominal pain, No nausea or vomiting, No diarrhea, Yes constipation, No blood in stool, No acid reflux, No hemorrhoids, No ulcers, No gallbladder problem and No black,tarry stools Conner Hematologic: No blood thinners, No blood disorders, No bleeding, No anemia and No blood clots Neuro Neurologic: No system reviewed and no additional complaints, except as documented, No as per HPI, No abnormal gait, No abnormal hearing, No abnormal movements, No abnormal speech, No behavioral changes, No burning sensations, No confusion, No convulsions, No disequilibrium, No dizziness, No localized weakness, No frequent falls, No headache(s), No lack of coordination, No loss ofvision, No memory loss, No numbness, No other visual disturbances, No radicular pain, No restless legs, No sensory deficit, No syncope, No tingling, No tremor(s), No weakness and No other Exam Const General: cooperative Orientation: alert and oriented x3 HENMT Head: normal to inspection Neck Neck: normal visual inspection and full ROM Chest Chest palpation & inspection: normal inspection of the chest Resp Effort & Inspection: normal respiratory effort Auscultation: clear to auscultation bilaterally Cardio Rate: regular rate Rhythm: regular rhythm GI Inspection: non-distended Palpation: soft, hernia indirect inguinal on the left and nontender Skin General: no rashes or lesions noted Neuro General: patient alert and patient oriented x3 Extrem General: full ROM Psych Appearance: grossly normal Mental Status: mental status grossly normal Assessment and Plan Assessment and Plan (1) Left inguinal hernia: Status: Acute Plan: Patient has a reducible left inguinal hernia containing bowel. I discussed robotic assisted laparoscopic inguinal hernia repair with mesh with the patient. I discussed the risks including but limited to bleeding, infection, injury to organs around the hernia such as bowel, bladder, ureter. I also discussed the possibility of having to convert to an open procedure. Patient understands the risks. He will hold his aspirin for 5 days prior to the procedure. Ori Jones MD Pager: [facility] [address] [place] [address], [address] [place] [address] Office: I have examined the patient and the H&P has been reviewed. There are no clinicalchanges since date of exam. 02/12/23 1045 <Electronically signed by Ori Jones MD> Cosigner Signature (if applicable): CC: Dr. Ori Jones MD; Dr. Guilherme Butt MD~ Signed [facility] Work Phone: 1(191) 714-407807-01-2006 Evaluation note* Diagnosis Onset Date Resolution Status History of aortic valve repl acement with bioprosthetic valve November, acute Chest pain chronic Essential hypertension chron ic Parkinson's disease chronic Paroxysmal atrial fibrillation chronic [facility] Work Phone: 1(301) 991-388107-01-2006 Evaluation note* Diagnosis Onset Date Resolution Status Admit Date History of aortic valve replacement with bioprosthetic valve November, acute October 08, 2024 2 :14pm Parkinson's disease chronic September 122024 2:14pm Paroxysmal atrial fibrillation chron ic October 08, 2024 2:14pm [facility] Work Phone: Discharge summary Author Dr. Callahan [facility] August 02, 2022 7:37am Note Date/Time August 02, 2022 7:1 3am [facility] Medical Records Department [address] [place] [address] Emergency Department Summary 08/02/22 MR#: [id number] Acct: [id number] Name: IGOR CRUZ Rep #:[id number] : 1945 77 From: Matt Cristina PCP: Dr. Guilherme uBtt MD Status:R EG ER Location: ED HPI HPI - Fall History of Present Illness Chief Complaint: Fall Narrative Narrative: 77-year-old male here with fall. Patient states he turned abruptly this morningand fell onto bilateral hands, bilateral knees. Denies any pain at this time. Denies any preceding chest pain, shortness of breath, palpitations. Has denied any recent illness. States his hip does not hurt. Per senior care patient injured his right hip after fall. [facility] Medical History Anxiety Atrial fibrillation Back pain Benign prostate hyperplasia Dementia Depression Endocarditis Hallucination Hypertension Inguinal hernia Kidney disease Parkinson disease Home Medications Alena, Bladder Health 1 tab PO DAILY 07/24/16 [History Last Taken Unknown] Chlorofresh 2 tab PO DAILY 07/24/16 [History Last Taken Unknown] Cholecalciferol (Vitamin D3) [Vitamin D3] 5,000 unit PO DAILY 07/24/16 [History Last Taken Unknown] Efa, Essential Fatty Acid 1 cap PO TID 07/24/16 [History Last Taken Unknown] Glucosamine Daily Complex Tab 2 tab PO BID 07/24/16 [History Last Taken Unknown] [place] Extract 5 drp PO DAILY 07/24/16 [History Last Taken Unknown] Helper Drink 1 packet PO DAILY 07/24/16 [History Last Taken Unknown] Tumeric/Carcumin 1 tab PO DAILY 07/24/16 [History Last Taken Unknown] Vital 3-For Joints 3 drp PO DAILY 07/24/16 [History Last Taken Unknown] aspirin 325 mg tablet 325 mg PO DAILY@0800 07/24/16 [History Last Taken 07/24/16] astaxanthin 4 mg capsule 4 mg PO DAILY 07/24/16 [History Last Taken Unknown] calcium carbonate 500 mg calcium (1,250 mg) tablet 500 mg PO DAILY 07/24/16 [History Last Taken Unknown] finasteride 5 mg tablet 5 mg PO DAILY 07/24/16 [History Last Taken Unknown] lactobacillus combination no.4 3 billion cell capsule (Probiotic) 2 ea PO BID 07/24/16 [History Last Taken Unknown] metoprolol succinate 25 mg tablet,extended release 24 hr 25 mg PO DAILY 07/24/16[History Last Taken 07/28/16 11:18 25 MG] red yeast rice 600 mg capsule 600 mg PO DAILY 07/24/16 [History Last Taken Unknown] tamsulosin 0.4 mg capsule 0.4 mg PO DAILY 07/24/16 [History Last Taken Unknown] ciprofloxacin HCl 500 mg tablet 500 mg PO BID ##10 07/28/16 [Rx Last Taken Unknown] hydrocodone-acetaminophen 5-325mg 5mg-325mg 1 tab PO Q4H PRN PRN Pain ##10 07/28/16 [Rx Last Taken Unknown] Allergy/AdvReac Type Severity Reaction Status Date / Time No Known Allergies Allergy Verified 04/03/22 10:08 Social History Smoking Status: Never smoker ROS ROS ED ROS Narrative Constitutional: Denies fever HEENT: Denies sore throat Neck: Denies neck pain Cardiovascular: Denies chest pain, syncope Respiratory: Denies shortness of breath GI: Denies nausea vomiting or abdominal pain : Denies changes in urinary habits Musculoskeletal: ? Right hip pain (although patient denies this to me on multiple occasions) Neurologic: Denies numbness weakness or loss of sensation Skin denies rash EXAM Physical Exam Narrative Exam Narrative: , Primary Survey Airway: Intact Breathing: Bilateral breath sounds Circulation: Palpable bilateral femorals, Palpable bilateral radial, Palpable bilateral DP and Palpable bilateral PT Disability / Spine precautions GCS Score: Eye Openin Verbal Response: 5 Motor Response: 6 Secondary Survey Constitutional: Please see [facility] Head: Atraumatic, Midface stable, NO jaw malocclusion, No Cephalohematoma, and No Lacerations noted Eye: Pupils equal round and reactive to light, Extraocular muscles intact and Noperiorbital ecchymosis or stepoff, no evidence of entrapment ENT: Oropharynx clear, no lacerations, no hemotympanum, no raccoon eyes or guevara sign Cervical spine / Neck: No cervical spine bony tenderness, crepitance, or stepoffdeformity Trachea midline Lungs: Clear to auscultation, No asymmetric rise and No crepitus, no flail chest Cardiac: Regular rate and rhythm and No murmurs Abdomen: Soft, Nontender and No rebound Pelvis: Pelvis stable to compression : No evidence of genital injury Back: No midline bony tenderness to thoracic/lumbar/sacral spines Neuro: At baseline, the patient was alert and orient x3, intact strength and sensation in bilateral upper and lower extremities. 2+ patellar reflexes bilaterally. Gait however he is able to ambulate without significant difficulty Extremities: NO gross Deformities, full hip range of motion flexion, extension, internal/external rotation. Psych: Normal affect Nursing triage notes reviewed, Vital signs reviewed Const Vital Signs: 08/02/22 07:08 08/02/22 07:12 Temperature 98 F Temperature Source Oral Pulse Rate 77 Respiratory Rate 16 Respiratory Effort Normal Non-Labored Respiratory Depth Normal Respiratory Pattern Normal Blood Pressure 126/83 H Blood Pressure Mean 97 Pulse Ox 96 96 Oxygen Delivery Method Room Air Room Air [facility] Narrative Medical decision making narrative: Chief Complaint: Fall External records reviewed: CT scan of the head from 09/2021 shows no acute abnormality I considered the following differential diagnosis: Acute traumatic injuries I performed a primary, secondary and tertiary trauma exams and there were no obvious traumatic injuries found. The patient had no complaints. Is hemodynamically stable afebrile nontoxic-appearing is alert and oriented x3. Displayed capacity provide history to make his own medical decisions. He is appropriate for discharge home with close outpatient follow-up by his PCP. Instructed take Tylenol for pain. Told to return if symptoms change or worsen. Factors affecting care: History of dementia, Parkinson's disease Social determinants of health: Geriatric patient, resident of ECF History obtained from others: EMS Shared decision making: I will have a discussion with the patient and or visitors regarding risk/benefits of further testing or admission. They will be made aware of of the risk/benefits inherent in this decision they will be given the opportunity to voice understanding. Consults: None Discharge Plan Triage Chief Complaint: Fall ED Provider: Matt Callahan Dx/Rx/DC Orders Clinical Impression: Fall, Hx of Parkinson's disease Instructions: ED Fall Prevention Prescriptions: No Action Alena, Bladder Health 1 tab PO DAILY aspirin 325 MG tablet 325 mg PO DAILY@0800 calcium carbonate 500 MG tablet 500 mg PO DAILY tamsulosin 0.4 MG capsule 0.4 mg PO DAILY metoprolol succinate 25 MG tablet 25 mg PO DAILY finasteride 5 MG tablet 5 mg PO DAILY red yeast rice 600 MG capsule 600 mg PO DAILY astaxanthin 4 MG capsule 4 mg PO DAILY lactobacillus combination no.4 [Probiotic] 1 EACH capsule 2 ea PO BID Chlorofresh 2 tab PO DAILY Cholecalciferol (Vitamin D3) [Vitamin D3] 5,000 UNIT capsule 5,000 unit PO DAILY Efa, Essential Fatty Acid 1 cap PO TID Glucosamine Daily Complex Tab 2 tab PO BID [place] Extract 5 drp PO DAILY Helper Drink 1 packet PO DAILY Tumeric/Carcumin 1 tab PO DAILY Vital 3-For Joints 3 drp PO DAILY ciprofloxacin HCl 500 MG tablet 500 mg PO BID Qty: 10 0RF hydrocodone-acetaminophen 1 TABLET tablet 1 tab PO Q4H PRN PRN (Reason: Pain) Qty: 10 0RF Primary Care Provider: Guilherme Butt Referrals: Guilherme Butt MD [Primary Care Provider] - Disposition Disposition: Home, Self Care What to do if you have Problems For any increased pain, shortness of breath, bleeding, nausea or vomiting, chestpain, or any unexpected problems, contact your Primary Care Provider. Call [facility] ([phone]) or report to the closest Emergency Room. Call 911 if necessary. 08/02/22 0737 <Electronically signed by Matt Callahan DO> Cosigner Signature (if applicable): CC: Dr. Guilherme Butt MD ~ Signed [facility] Work Phone: Evaluation noteNo assessment information available [facility] Work Phone: Evaluation note* Diagnosis Onset Date Resolution Status Left inguinal hernia acute [facility] Work Phone: Evaluation note* Diagnosis Onset Date Resolution Status Left inguinal hernia acute Left inguinal hernia acute [facility] Work Phone: Hospital Discharge instructions Additional Instructions Alternate ibuprofen and Tylenol for pain, may resume aspirin Sunday. [facility] Work [facility]: Reason for referral (narrative)No reason for referral information availableSouthwest [facility] Center Work Phone: Summary Purpose Family History No Family History Records Found Relationship Condition Age at Onset Recorded Date/T jina mother Malignant neoplasm Unknown father Malignant neoplasm Unknown Chronic obstructive pulmonary disease Unk nown Advance Directives No Advanced Directives Records Found Advance Directive Response Recorded Date/ Time Living Will Yes July 24, 2016 9:10am Power of Computer Forensics Investigator Yes July 24 9:10am Advance Directive Response Recorded Date/ Time Living Will No October 02, 2021 8 :30pm Power of Computer Forensics Investigator No October 02, 2021 8:30pm Advance Directive Response Recorded Date/ Time Living Will No May 22 3 1:15pm Power of Computer Forensics Investigator No May 22 023 1:15pm Advance Directive Response Recorded Date/ Time Living Will No May 22 3 2:15pm Power of Computer Forensics Investigator No May 22 2 023 2:15pm Advance Directive Response Recorded Date/ Time Living Will No February 09, 2023 12:16pm Power of Computer Forensics Investigator No January 12:16pm Advance Directive Response Recorded Date/ Time Living Will No March 12 12:59pm Power of Computer Forensics Investigator No March 12, 2023 12:59pm Advance Directive Response Recorded Date/ Time Living Will No March 12 1:59pm Power of Computer Forensics Investigator No March 12, 2023 1:59pm Chief Complaint and Reason for Visit Chief Complaint FPC LABWORK FPC LABWORK FPC LABWORK FPC BLOOD WORK Chief Complaint FPC LABWORK FPC LABWORK FPC BLOOD WORK MONTHLY EXAM CONFUSION Chief Complaint FPC LABWORK FPC BLOOD WORK MONTHLY EXAM FPC LABWORK CONFUSION LABWORK Chief Complaint FPC BLOOD W ORK MONTHLY EXAM FPC LABWORK CONFUSION LABWORK FPC LABWORK Chief Complaint MONTHLY EXAM FPC LABWORK CONFUSION LABWORK FPC LABWORK MONTHLY EXAM FPC LABWORK Chief Complaint FPC LABWORK MONTHLY EXAM FPC LABWORK LABWORK FPC LABWORK Chief Complaint FPC LABWORK FPC LAB WORK FPC LABWORK MONTHLY EXAM syncope ACUTE CARE VISIT RE-ADMISSION NOTE FPC LABWORK READMISSION NOTE NEW CONCERN/PROBLEM Chief Complaint FPC LAB WOR K FPC LABWORK MONTHLY EXAM syncope ACUTE CARE VISIT RE-ADMISSION NOTE FPC LABWORK READMISSION NOTE NEW CONCERN/PROBLEM FPC LABWORK Chief Complaint RE-ADMISSION NOTE [facility]PC LABWORK READMISSION NOTE NEW CONCERN/PROBLEM FPC LABWORK MONTHLY FPC LABWORK MONTHLY NOTE FALL Chief Complaint FPC LABWORK READMISSION NOTE NEW CONCERN/PROBLEM FPC LABWORK MONTHLY FPC LABWORK MONTHLY NOTE FPC LABWORK MONTHLY FALL NEW COMPLAINT Chief Complaint NEW CONCERN/PROBLEM FPC LABWORK MONTHLY FPC LABWORK MONTHLY NOTE FPC LABWORK MONTHLY FALL NEW COMPLAINT NEW COMPLAINT Amb Documentation FPC LABWORK CP, PREV AVR Reason for Visit 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 Chest pain Essential hypertension Parkinson's disease Paroxysmal atrial fibrillation Chief Complaint CP, PREV AVR CP, EVAL VALVE REPLACEMENT FPC LABWORK MONTHLY EXAM FPC LABWORK MONTHLY NOTE LABWORK MONTHLY EXAM Reason for Visit 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 Chest pain Essential hypertension Parkinson's disease Paroxysmal atrial fibrillation Chief Complaint CP, EVAL VALVE REPLA CEMENT FPC LABWORK MONTHLY EXAM FPC LABWORK MONTHLY NOTE LABWORK MONTHLY EXAM Chief Complaint CP, EVAL VALVE REPLA CEMENT FPC LABWORK MONTHLY EXAM FPC LABWORK MONTHLY NOTE LABWORK MONTHLY EXAM FPC LABWORK INGUINAL HERNIA Chief Complaint FPC LABWORK MONTHLY NOTE LABWORK MONTHLY EXAM FPC LABWORK ACUTE VISIT INGUINAL HERNIA FPC LAB WORK MONTHLY EXAM Lap Robotic Left poss Bilateral Ing Lap Robotic Left poss Bilateral Ing Reason for Visit Left inguinal hernia Chief Complaint MONTHLY NOTE LABWORK MONTHLY EXAM FPC LABWORK ACUTE VISIT INGUINAL HERNIA FPC LAB WORK MONTHLY EXAM FPC LAB WORK Lap Robotic Left poss Bilateral Ing Lap Robotic Left poss Bilateral Ing FPC LABWORK Hernia 02/12 Reason for Visit Left inguinal hernia Left inguinal hernia Chief Complaint FPC LABWORK ACUTE VISIT INGUINAL HERNIA FPC LAB WORK MONTHLY EXAM FPC LAB WORK Lap Robotic Left poss Bilateral Ing Lap Robotic Left poss Bilateral Ing MONTHLY VISIT FPC LABWORK Hernia 02/12 FPC LABWORK Reason for Visit Left inguinal hernia Left inguinal hernia Chief Complaint Lap Robotic Left pos s Bilateral Ing Lap Robotic Left poss Bilateral Ing MONTHLY VISIT FPC LABWORK Hernia 02/12 [facility]PC LABWORK MONTHLY EXAM NEW CONCERN FPC LABWORK FPC LABWORK Reason for Visit Left inguinal hernia Chief Complaint NEW CONCERN FPC LABWORK FPC LABWORK MONTHLY EXAM - MD LABWORK LABWORK Chief Complaint FPC LABWORK MONTHLY EXAM - MD LABWORK MONTHLY VISIT PA LABWORK MONTHLY EXAM LABWORK MONTHLY NOTE Chief Complaint Admit Date LABWORK April 25, 2024 5:00am LABWORK May 23, 2024 5 :10am MONTHLY EXAM May 27, 2024 8 :07pm LABWORK June 27, 2024 5:00am MONTHLY VISIT July 03, 2024 10:45am LABWORK July 25, 2024 5:0 0am Chief Complaint Admit Date LABWORK May 23, 2024 5 :10am MONTHLY EXAM May 27, 2024 8 :07pm LABWORK June 27, 2024 5:00am MONTHLY VISIT July 03, 2024 10:45am LABWORK July 25, 2024 5:0 0am MONTHLY EXAM July 29, 2024 7:4 9pm FPC LAB WORK August 22, 2024 5 :00am Chief Complaint Admit Date LABWORK June 27, 2024 5:00am MONTHLY VISIT July 03, 2024 10:45am LABWORK July 25, 2024 5:0 0am MONTHLY EXAM July 29, 2024 7:4 9pm FPC LAB WORK August 22, 2024 5 :00am LABWORK September 19, 2024 5:00am OVER DUE FU October 08, 2024 2:14p m Reason for Visit Admit Date History of aortic valve replacement with bioprosthetic valve October 08, 2024 2:14pm Parkinson's disease October 08, 2024 2:14p m Paroxysmal atrial fibrillation October 08, 2024 2:14pm Additional Source Comments (unrecognized sect ion and content) No Status Records FoundNo Status Records FoundNo Status Records Found INFORMATION SOURCE (unrecogn ized section and content) DATE CREATED AUTHOR 08/12/2019 [facility] ([place]) DATE CREATED AUTHOR AUTHOR'S ORGANIZ ATION 01/01/2021 [facility] DATE CREATED AUTHOR AUTHOR'S ORGANIZ ATION 10/10/2024 [facility] Goals (unrecognized section and content) Goals may be documented in a n alternate sectionGoals may be documented in an alternate sectionGoals may be documented in an alternate sectionGoals may be documented in an alternate sectionGoals may be documented in an alternate sectionGoals may be documented in an alternate sectionGoals may be documented in an alternate sectionGoals may be documented in an alternate sectionGoals may be documented in an alternate sectionGoals may be documented in an alternate sectionGoals may be documented in an alternate sectionGoals may be documented in an alternate sectionGoals may be documented in an alternate sectionGoals may be documented in an alternate sectionGoals may be documented in an alternate sectionGoals may be documented in an alternate sectionGoals may be documented in an alternate sectionGoals may be documented in an alternate sectionGoals may be documented in an alternate sectionGoals may be documented in an alternate sectionGoals may be documented in an alternate sectionGoals may be documented in an alternate sectionGoals may be documented in an alternate sectionGoals may be documented in an alternate sectionGoals may be documented in an alternate sectionGoals may be documented in an alternate section Care Teams (unrecognized sec tion and content) Team Status: Active Member Role Status Dates Dr. Dallas Rutherford DO Family Provider Active Dr. Guilherme Butt MD Primary Care Provider Active Team Status: Inactive Member Role Status Dates Dr. Guilherme Butt MD Primary Care Provider Active Cecy Gray COLOR BLENDER, COLOR BLENDER-C Attending Provider Active Team Status: Inactive Member Role Status Dates Dr. Guilherme Butt MD Primary Care Provider, Atten ding Provider Active Team Status: Inactive Member Role Status Dates Dr. Maikel Mosquera MD Primary Care Provider Active Maikel Mosquera MD Attending Provider Active Team Status: Inactive Member Role Status Dates Dr. Natan Sanchez DO Attending Provider, Deanne smith Active Dr. Guilherme Butt MD Primary Care Provider Active Team Status: Inactive Member Role Status Dates Dr. Guilherme Butt MD Primary Care Provider Active Maikel Mosquera MD Attending Provider Active Team Status: Inactive Member Role Status Dates Dr. Guilherme Butt MD Primary Care Provider Active Guilherme Butt MD Attending Provider Active Team Status: Inactive Member Role Status Dates Dr. Guilherme Butt MD Primary Care Provider Active TIFFANY Cameron Attending Provider Active Team Status: Inactive Member Role Status Dates Dr. Guilherme Butt MD Primary Care Provider Active Maikel SHI MD Attending Provider Active Team Status: Inactive Member Role Status Dates Dr. Guilherme Butt MD Primary Care Provider Active Guilherme SHI MD Attending Provider Active Team Status: Active Member Role Status Dates Dr. Guilherme Butt MD Primary Care Provider Active [facility] Attending Provider Active Team Status: Active Member Role Status Dates Dr. Guilherme Butt MD Primary Care Provider Active Guilherme SHI MD Attending Provider Active Team Status: Inactive Member Role Status Dates Dr. Guilherme Butt MD Primary Care Provider Active Dr. Matt Callahan DO Emergency Provider Active Team Status: Inactive Member Role Status Dates Dr. Guilherme Butt MD Primary Care Provider Active [facility] Attending Provider Active Team Status: Inactive Member Role Status Dates Dr. Guilherme Butt MD Primary Care Provider Active Dr. Matt Callahan DO Attending Provider, Emergency P luis Active Team Status: Inactive Member Role Status Dates Dr. Guilherme Butt MD Primary Care Provider, Refer ring Provider Active Dr. Dwain Yen MD Attending Provider Active Team Status: Active Member Role Status Dates Dr. Guilherme Butt MD Primary Care Provider Active Lucita Butler Attending Provider Active Team Status: Active Member Role Status Dates Dr. Guilherme Butt MD Primary Care Provider Active Dr. Mike Poe MD Attending Provider Active Dr. Dwain Yen MD Referring Provider Active Team Status: Inactive Member Role Status Dates Dr. Guilherme Butt MD Primary Care Provider Active Dr. Dwain Yen MD Attending Provider, Referring Pr ovider Active Team Status: Active Member Role Status Dates Dr. Guilherme Butt MD Primary Care Provider, Refer ring Provider Active Dr. Ori Jones MD Attending Provider Active Team Status: Inactive Member Role Status Dates Dr. Guilherme Butt MD Primary Care Provider, Refer ring Provider Active Dr. Ori Jones MD Attending Provider Active Team Status: Active Member Role Status Dates Dr. Guilherme Butt MD Primary Care Provider Active Dr. Ori Jones MD Attending Pr ovider, Referring Provider, Other Provider Active Team Status: Inactive Member Role Status Dates Dr. Guilherme Butt MD Primary Care Provider Active Dr. Ori Jones MD Attending Provider, Referr ing Provider Active Team Status: Inactive Member Role Status Dates Dr. Guilherme Butt MD Primary Care Provider, Refer ring Provider Active Dr. Ori Jones MD Active Raquel AGRAWAL PA-Devan Attending Provider Active Team Status: Inactive Member Role Status Dates Dr. Guilherme Butt MD Primary Care Provider Active Guilherme SHI MD Attending Provider, Referring Provider Active Team Status: Inactive Member Role Status Dates Dr. Guilherme Butt MD Primary Care Provider Active Camilo AGRAWAL PA Attending Provider Active Team Status: Inactive Member Role Status Dates Dr. Guilherme Butt MD Primary Care Provider Active Start: April 25, 2024 End: April 25, 2024 Guilherme SHI MD Attending Provider Active Start: April 25, 2024 End: April 25, 2024 Team Status: Inactive Member Role Status Dates Dr. Guilherme Butt MD Primary Care Provider Active Start: May 23, 2024 End: May 23, 2024 Guilherme SHI MD Attending Provider Active Start: May 23, 2024 End: May 23, 2024 Team Status: Inactive Member Role Status Dates Dr. Guilherme Butt MD Primary Care Provider Active Start: May 27, 2024 End: May 27, 2024 Dr. Guilherme Butt MD Attending Provider Active Start: May 27, 2024 End: May 27, 2024 Team Status: Active Member Role Status Dates Dr. Guilherme Butt MD Primary Care Provider Active Start: June 27, 2024 Guilherme SHI MD Attending Provider Active Start: June 27, 2024 Team Status: Inactive Member Role Status Dates Dr. Guilherme Butt MD Primary Care Provider Active Start: July 03, 2024 End: July 03, 2024 TANJA Tirado Attending Provider Active St art: July 03, 2024 End: July 03, 2024 Team Status: Inactive Member Role Status Dates Dr. Guilherme Butt MD Primary Care Provider Active Start: July 25, 2024 End: July 25, 2024 Guilherme SHI MD Attending Provider Active Start: July 25, 2024 End: July 25, 2024 Team Status: Inactive Member Role Status Dates Dr. Guilherme Butt MD Primary Care Provider Active Start: July 29, 2024 End: July 29, 2024 Dr. Guilherme Butt MD Attending Provider Active Start: July 29, 2024 End: July 29, 2024 Team Status: Inactive Member Role Status Dates Dr. Guilherme Butt MD Primary Care Provider Active Start: August 22, 2024 End: August 22, 2024 TIFFANY Cameron Attending Provider Active Start: August 22, 2024 End: August 22, 2024 Team Status: Active Member Role Status Dates Dr. Guilherme Butt MD Primary Care Provider Active Start: September 19, 2024 Guilherme SHI MD Attending Provider Active Start: September 19, 2024 Team Status: Inactive Member Role Status Dates Dr. Guilherme Butt MD Primary Care Provider Active Start: October 08, 2024 End: October 08, 2024 Dr. Guilherme Butt MD Referring Provider Active Start: October 08, 2024 End: October 08, 2024 Dr. Dwain Yen MD Attending Provider Active Start: October 08, 2024 End: October 08, 2024 Team Status: Inactive Member Role Status Dates Dr. Guilherme Butt MD Primary Care Provider Active Start: September 19, 2024 End: September 19, 2024 Guilherme SHI MD Attending Provider Active Start: September 19, 2024 End: September 19, 2024 FOR RECORDS PERTAINING TO PATIENTS WHO ARE [...] BE BASED ON THE PRIMARY CLINICAL RECORDS. Locally [facility]. provides no warranty or guarantee of the accuracy or completeness of information in this document.
--- OUTSIDE RECORDS SUMMARY | 2024-10-24 04:24 | XMS RPT_ITS | CCD ---
Author Organization [facility] Care Team Providers Care Mental Health Associate Name Role Phone Isaac BILLING REP, BILLING REP-C Cecy Attending Provider Dr. Maikel Alfaro Primary Care Provider Tickashli BILLING REP, BILLING REP-C Cecy Attending Provider Dr. Guilherme Barrera Primary Care Provider Dr. Guilherme Butt Attending Provider [phone] Isaac BILLING REP, BILLING REP-C Cecy Attending Provider Dr. Guilherme Barrera Primary Care Provider [phone] Isaac BILLING REP, BILLING REP-C Cecy Attending Provider Dr. Guilherme Barrera Attending Provider [phone] Tickashil OLS, BILLING REP-C Cecy Attending Provider [phone] Dr. Guilherme Butt Primary Care Provider [phone] Tickashli BILLING REP, BILLING REP-C Cecy Attending Provider Dr. Guilherme Barrera Primary Care Provider [phone] Tickashli BILLING REP, BILLING REP-C Cecy Attending Provider UnaLucita Rivera Attending Provider Unavailable Dr. Guilherme Butt Referring Provider [phone] Dr. Dwain Yen Attending Provider Dr. Guilherme Butt Primary Care Provider [phone] Dr. Mike Poe Attending Provider Dr. Dwain Yen Referring Provider Dr. Guilherme Butt Attending Provider [phone] Isaac BILLING REP, BILLING REP-C Cecy Attending Provider Unav Dr. Guilherme Kerr Primary Care Provider [phone] Dr. Guilherme Butt Referring Provider [phone] Dr. Ori Jones Attending Provider Dr. Guilherme Butt Primary Care Provider [phone] Dr. Guilherme Butt Attending Provider [phone] Dr. Ori Jones Referring Provider Dr. Ori Jones Other Provider BIRD Stewart Attending Provider Dr. Guilherme Butt Primary Care Provider [phone] Isaac BILLING REP, BILLING REP-C Cecy Attending Provider Unav Dr. Guilherme Kerr Referring Provider [phone] Dr. Ori Jones Attending Provider Dr. Guilherme Butt Attending Provider [phone] Dr. Ori Jones Referring Provider Dr. Ori Jones Other Provider BIRD Stewart Attending Provider Dr. Guilherme Butt Primary Care Provider [phone] Dr. Ori Jones Attending Provider Isaac BILLING REP, BILLING REP-C Cecy Attending Provider Dr. Guilherme Butt Referring Provider [phone] Dr. Guilherme Butt Attending Provider [phone] Dr. Guilherme Butt Primary Care Provider [phone] Isaac BILLING REP, BILLING REP-C Cecy Attending Provider Dr. Guilherme Butt Attending Provider [phone] Oleghe, Dr. Vanegas Primary Care Provider [phone] TANJA Painter Attending Provider [phone] Filomena LEVIN, Dr. Vanegas Primary Care Provider Guilherme Butt MD Attending Provider Daljit Butt MD, Dr. Vanegas Attending Provider [phone] Camilo Painter Attending Provider [phone] Filomena LEVIN, Dr. Vanegas Primary Care Provider Filomena LEVIN, Guilherme Attending Provider Unavailluis Gray BILLING REP-CCecy Attending Provider [phone] Filomena LEVIN, Dr. Vanegas [...] Unavailable Oleghe, Efewongbe Primary Care Unavailable Isaac BILLING REPCecy Attending Unavailable Oleghe, Efewongbe Primary Care Unavailable Oleghe, Efewongbe Attending Unavailable Oleghe, Efewongbe Primary Care Unavailable Isaac BILLING REPCecy Attending Unavailable Oleghe, Efewongbe Primary Care Unavailable [...] 07-24-2016 take 2 tablets by mo [facility] once daily Chlorofresh Active 2 TABLET PO [...] 11:00pm Start: 07-24-2016 take 2 tablets by [facility] once daily Chlorofresh Active 2 TABLET PO DAILY July 24, 2016 12:00am docusate sodium 50 mg / sennosides, prison 8.6 mg oral tablet (14 sources) Start: [...] 10:51am Start: 07-24-2016 take 1 capsule by [facility] three times daily Efa, Essential Fatty Acid Active 1 CAP PO THREE TIMES A DAY July 23, 2016 11:00pm Start: 07-24-2016 take 1 capsule by [facility] three times daily Efa, Essential Fatty Acid [...] 11:00pm Start: 07-24-2016 take 1 capsule by [facility] twice daily Lactobacillus Combination No.4 (Probiotic) 1 [...] mg PO DAILY September 04, 2022 12:00am [place] Extract (20 sources) Start: 07-24-2016 [place] Ext ract Active 5 DRP PO DAILY July 24, 2016 8:58am Start: 07-24-2016 End: 09-04-2022 [place] Extract Discontin ued 5 NMA PO DAILY July 24, 2016 12:00am September 04, 2022 10:51am Start: 07-24-2016 End: 09-04-2022 [place] Extract Discontin ued 5 DRP PO DAILY July 23, 2016 11:00pm September 04, 2022 9:51am Start: 07-24-2016 End: 09-04-2022 [place] Extract Discontin ued 5 DRP PO DAILY July 24, 2016 12:00am September 04, 2022 10:51am Start: 07-24-2016 [place] Ext ract Active 5 DRP PO DAILY July 23, 2016 11:00pm Start: 07-24-2016 [place] Ext ract Active 5 DRP PO DAILY July 24, 2016 12:00am pimavanserin 34 mg oral capsule (2 sources) Atypical Antipsychotic Start: 10-08-2024 take 1 capsule by mouth once daily Pimavanserin (Nuplazid) 34 mg capsule Active 34 mg PO daily October 08, 2024 12:00am polyethylene glycol 3350 64830 mg powder for oral solution (14 sources) [...] TWICE A DAY September 04, 2022 12:00am [place] Drink (20 sources) Start: 07-24-2016 [place] Drin k Active 1 PACKET PO DAILY July 24, 2016 8:58am Start: 07-24-2016 End: 09-04-2022 [place] Dr[place] Discontinued 1 NMA PO DAILY July 24, 2016 12:00am September 04, 2022 10:51am Start: 07-24-2016 End: 09-04-2022 [place] Drink Discontinued 1 PACKET PO DAILY July [...] and replacement of a hemisheild graft @ [facility] 11/21/05 Nonspecific chest pain (16 sources) Chest [...] and replacement of a hemisheild graft @ [facility] 11/21/05 Other nervous system disorders (17 sources) [...] Facility Cardiology Visit Reporton Cardiology Visit Report [facility] [address] [place], [place] [address] OFFICE VISIT Date of Service: 10/08/24 MR#: [id number] Acct: [id number] Name: IGOR CRUZ Rep #: [id number] : 1945 Provider: Dr. 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 Normal [facility] Anion gap in Serum or Plasma Ordered By: Guilherme Butt on 09-19-2024 Anion gap [Moles/Vol] 9 mmol/L 5-15 [facility] BUN/creatinine ratioOrdered By: Guilherme Butt on 09-19-2024 Urea nitrogen/Creatinine [Mass ratio] 26.1 mg/mg High 10-[address] [facility] Carbon dioxide, total [Moles /volume] in Central venous bloodOrdered By: Guilherme Butt on 09-19-2024 CO2 [Moles/Vol] 28.7 mmol/L 21.0-32.[address] [facility] Chloride assayOrdered By: Roselia Butt on 09-19-2024 Chloride [Moles/Vol] 103 mmol/L 98-108 [facility] Erythrocyte distribution wid th ratioOrdered By: Guilherme Butt on 09-19-2024 Erythrocyte distribution width (RBC) [Ratio] 12.7 % 11.6-14.[address] [facility] Erythrocyte distribution wid th standard deviationOrdered By: Guilherme Butt on 09-19-2024 Erythrocyte distribution width (RBC) [Ratio] 44.8 fl High 35.1-43.[address] [facility] Glomerular filtration rate ( GFR) estimation/1.73 sq m using serum, plasma, or whole bOrdered By: Guilherme Butt on 09-19-2024 GFR/1.73 sq M.predicted among non-blacks MDRD (S/P/Bld) [Vol rate/Area] 87 mL/min/{1.73_m2} >[address] [facility] Comment on above: mL/min/1.73m2 CKD-EP I Creatinine Equation (2020) Hematocrit Auto (Bld) [Volum e fraction]Ordered By: Guilherme Butt on 09-19-2024 Hematocrit (Bld) [Volume fraction] 39.4 % Low 40-[address] [facility] Hemoglobin measurementOrdere d By: Guilherme Butt on 09-19-2024 Hemoglobin (Bld) [Mass/Vol] 13.2 g/dL 13.0-16.[address] [facility] MCV (mean corpuscular volume ) determinationOrdered By: Guilherme Butt on 09-19-2024 MCV (RBC) [Entitic vol] 96.3 fL High 80-94 [facility] Mean corpuscular hemoglobin (MCH) determinationOrdered By: Guilherme Butt on 09-19-2024 MCH (RBC) [Entitic mass] 32.3 pg High 27.0-32.[address] [facility] Mean corpuscular hemoglobin concentration (MCHC) determinationOrdered By: Guilherme Butt on 09-19-2024 MCHC (RBC) [Mass/Vol] 33.5 g/dL 32-36 [facility] Mean platelet volume determi nationOrdered By: Guilherme Butt on 09-19-2024 Platelet mean volume (Bld) [Entitic vol] 9.0 fL 6.2-12.[address] [facility] Platelet countOrdered By: Roselia Butt on 09-19-2024 Platelets (Bld) [#/Vol] 178 10*3/uL 150-[address] [facility] Potassium measurement (mass/ volume)Ordered By: Guilherme Butt on 09-19-2024 Potassium (Unsp spec) [Mass/Vol] 4.6 mmol/L 3.3-5.[address] [facility] RBC Auto (Bld) [#/Vol]Ordere d By: Guilherme Butt on 09-19-2024 RBC (Bld) [#/Vol] 4.09 10*6/uL Low 4.6-6.2 [facility] Serum creatinine measurement (mass/volume)Ordered By: Guilherme Butt on 09-19-2024 Creatinine [Mass/Vol] 0.89 mg/dL 0.70-1.20 [facility] Serum glucose measurement (m ass/volume)Ordered By: Guilherme Butt on 09-19-2024 Glucose [Mass/Vol] 86 mg/dL 70-99 [facility] Serum or plasma calcium farshad urement (mass/volume)Ordered By: Guilherme Butt on 09-19-2024 Calcium [Mass/Vol] 9.1 mg/dL 7.6-11.0 [facility] Serum or plasma urea nitroge n measurement (mass/volume)Ordered By: Guilherme Butt on 09-19-2024 Urea nitrogen [Mass/Vol] 23 mg/dL High 4-[address] [facility] Sodium levelOrdered By: Kelly yeebenjyjessenia Butt on 09-19-2024 Sodium [Moles/Vol] 141 mmol/L 133-145 [facility] White blood cell (WBC) count Ordered By: Guilherme Butt on 09-19-2024 WBC (Bld) [#/Vol] 4.1 10*3/uL Low 4.4-11.0 [facility] Anion gap in Serum or Plasma Ordered By: Cecy Gray on 08-22-2024 Anion gap [Moles/Vol] 10 mmol/L 5-15 [facility] BUN/creatinine ratioOrdered By: Cecy Gray on 08-22-2024 Urea nitrogen/Creatinine [Mass ratio] 24.8 mg/mg High 10-[address] [facility] Carbon dioxide, total [Moles /volume] in Central venous bloodOrdered By: Cecy Gray on 08-22-2024 CO2 [Moles/Vol] 26.8 mmol/L 21.0-32.[address] [facility] Chloride assayOrdered By: Roderick Gray on 08-22-2024 Chloride [Moles/Vol] 103 mmol/L 98-108 [facility] Erythrocyte distribution wid th ratioOrdered By: Cecy Gray on 08-22-2024 Erythrocyte distribution width (RBC) [Ratio] 12.6 % 11.6-14.[address] [facility] Erythrocyte distribution wid th standard deviationOrdered By: Cecy Gray on 08-22-2024 Erythrocyte distribution width (RBC) [Ratio] 44.4 fl High 35.1-43.[address] [facility] Glomerular filtration rate ( GFR) estimation/1.73 sq m using serum, plasma, or whole bOrdered By: Cecy Gray on 08-22-2024 GFR/1.73 sq M.predicted among non-blacks MDRD (S/P/Bld) [Vol rate/Area] 74 mL/min/{1.73_m2} >[address] [facility] Comment on above: mL/min/1.73m2 CKD-EP I Creatinine Equation (2020) Hematocrit Auto (Bld) [Volum e fraction]Ordered By: Cecy Gray on 08-22-2024 Hematocrit (Bld) [Volume fraction] 38.2 % Low 40-[address] [facility] Hemoglobin measurementOrdere d By: Cecy Gray on 08-22-2024 Hemoglobin (Bld) [Mass/Vol] 13.0 g/dL 13.0-16.[address] [facility] MCV (mean corpuscular volume ) determinationOrdered By: Cecy Gray 08-22-2024 MCV (RBC) [Entitic vol] 95.5 fL High 80-94 [facility] Mean corpuscular hemoglobin (MCH) determinationOrdered By: Cecy Gray 08-22-2024 MCH (RBC) [Entitic mass] 32.5 pg High 27.0-32.[address] [facility] Mean corpuscular hemoglobin concentration (MCHC) determinationOrdered By: Cecy Gray 08-22-2024 MCHC (RBC) [Mass/Vol] 34.0 g/dL 32-36 [facility] Mean platelet volume determi nationOrdered By: Cecy Gray 08-22-2024 Platelet mean volume (Bld) [Entitic vol] 8.9 fL 6.2-12.[address] [facility] Platelet countOrdered By: Roderick Gray on 08-22-2024 Platelets (Bld) [#/Vol] 169 10*3/uL 150-[address] [facility] Potassium measurement (mass/ volume)Ordered By: Cecy Gray on 08-22-2024 Potassium (Unsp spec) [Mass/Vol] 4.5 mmol/L 3.3-5.[address] [facility] RBC Auto (Bld) [#/Vol]Ordere d By: Cecy Gray on 08-22-2024 RBC (Bld) [#/Vol] 4.00 10*6/uL Low 4.6-6.2 [facility] Serum creatinine measurement (mass/volume)Ordered By: Cecy Gray on 08-22-2024 Creatinine [Mass/Vol] 1.03 mg/dL 0.70-1.20 [facility] Serum glucose measurement (m ass/volume)Ordered By: Cecy Gray on 08-22-2024 Glucose [Mass/Vol] 83 mg/dL 70-99 [facility] Serum or plasma calcium farshad urement (mass/volume)Ordered By: Cecy Gray on 08-22-2024 Calcium [Mass/Vol] 9.0 mg/dL 7.6-11.0 [facility] Serum or plasma urea nitroge n measurement (mass/volume)Ordered By: Cecy Gray on 08-22-2024 Urea nitrogen [Mass/Vol] 26 mg/dL High 4-[address] [facility] Sodium levelOrdered By: Mayi Gray on 08-22-2024 Sodium [Moles/Vol] 140 mmol/L 133-145 [facility] White blood cell (WBC) count Ordered By: Cecy Gray on 08-22-2024 WBC (Bld) [#/Vol] 4.0 10*3/uL Low 4.4-11.0 [facility] Anion gap in Serum or Plasma Ordered By: Guilherme Butt on 07-25-2024 Anion gap [Moles/Vol] 10 mmol/L 5-15 [facility] BUN/creatinine ratioOrdered By: Guilherme Butt on 07-25-2024 Urea nitrogen/Creatinine [Mass ratio] 28.4 mg/mg High 10-[address] [facility] Carbon dioxide, total [Moles /volume] in Central venous bloodOrdered By: Guilherme Butt on 07-25-2024 CO2 [Moles/Vol] 26.7 mmol/L 21.0-32.[address] [facility] Chloride assayOrdered By: Roselia Butt on 07-25-2024 Chloride [Moles/Vol] 105 mmol/L 98-108 [facility] Erythrocyte distribution wid th (RBC) [Ratio]Ordered By: Guilherme Butt on 07-25-2024 Erythrocyte distribution width (RBC) [Entitic vol] 44.6 fL High 35.1-43.[address] [facility] Erythrocyte distribution wid th ratioOrdered By: Guilherme Butt on 07-25-2024 Erythrocyte distribution width (RBC) [Ratio] 12.8 % 11.6-14.[address] [facility] Erythrocyte distribution wid th standard deviationOrdered By: Guilherme Butt on 07-25-2024 Erythrocyte distribution width (RBC) [Ratio] 44.6 fl High 35.1-43.[address] [facility] GFR/1.73 sq M.predicted jane g non-blacks MDRD (S/P/Bld) [Vol rate/Area]Ordered By: Guilherme Butt on 07-25-2024 Estimated GFR (MDRD) Non-Af Amer [address] [facility] Comment on above: mL/min/1.73m2 CKD-EP I Creatinine Equation (2020) Glomerular filtration rate ( GFR) estimation/1.73 sq m using serum, plasma, or whole bOrdered By: Guilherme Butt on 07-25-2024 GFR/1.73 sq M.predicted among non-blacks MDRD (S/P/Bld) [Vol rate/Area] 85 mL/min/{1.73_m2} >[address] [facility] Comment on above: mL/min/1.73m2 CKD-EP I Creatinine Equation (2020) Hematocrit Auto (Bld) [Volum e fraction]Ordered By: Guilherme Butt on 07-25-2024 Hematocrit (Bld) [Volume fraction] 38.4 % Low 40-[address] [facility] Hemoglobin measurementOrdere d By: Guilherme Butt on 07-25-2024 Hemoglobin (Bld) [Mass/Vol] 13.1 g/dL 13.0-16.[address] [facility] MCV (mean corpuscular volume ) determinationOrdered By: Guilherme Butt on 07-25-2024 MCV (RBC) [Entitic vol] 94.8 fL High 80-94 [facility] Mean corpuscular hemoglobin (MCH) determinationOrdered By: Guilherme Butt on 07-25-2024 MCH (RBC) [Entitic mass] 32.3 pg High 27.0-32.[address] [facility] Mean corpuscular hemoglobin concentration (MCHC) determinationOrdered By: Guilherme Butt on 07-25-2024 MCHC (RBC) [Mass/Vol] 34.1 g/dL 32-36 [facility] Mean platelet volume determi nationOrdered By: Guilherme Butt on 07-25-2024 Platelet mean volume (Bld) [Entitic vol] 9.1 fL 6.2-12.[address] [facility] Platelet countOrdered By: Roselia Butt on 07-25-2024 Platelets (Bld) [#/Vol] 174 10*3/uL 150-[address] [facility] Potassium (Unsp spec) [Mass/ Vol]Ordered By: Guilherme Butt on 07-25-2024 Potassium [Moles/Vol] 4.5 mmol/L 3.3-5.1 [facility] Potassium measurement (mass/ volume)Ordered By: Guilherme Butt on 07-25-2024 Potassium (Unsp spec) [Mass/Vol] 4.5 mmol/L 3.3-5.[address] [facility] RBC Auto (Bld) [#/Vol]Ordere d By: Guilherme Butt on 07-25-2024 RBC (Bld) [#/Vol] 4.05 10*6/uL Low 4.6-6.2 [facility] Serum creatinine measurement (mass/volume)Ordered By: Guilherme uBtt on 07-25-2024 Creatinine [Mass/Vol] 0.92 mg/dL 0.70-1.20 [facility] Serum glucose measurement (m ass/volume)Ordered By: Guilherme Butt on 07-25-2024 Glucose [Mass/Vol] 93 mg/dL 70-99 [facility] Serum or plasma calcium farshad urement (mass/volume)Ordered By: Guilherme Butt on 07-25-2024 Calcium [Mass/Vol] 9.2 mg/dL 7.6-11.0 [facility] Serum or plasma urea nitroge n measurement (mass/volume)Ordered By: Guilherme Butt on 07-25-2024 Urea nitrogen [Mass/Vol] 26 mg/dL High 4-[address] [facility] Sodium levelOrdered By: Kelly Butt on 07-25-2024 Sodium [Moles/Vol] 141 mmol/L 133-145 [facility] White blood cell (WBC) count Ordered By: Guilherme Butt on 07-25-2024 WBC (Bld) [#/Vol] 4.5 10*3/uL 4.4-11.0 [facility] Blood urea nitrogen (BUN)/cr eatinine ratioOrdered By: Guilherme Butt on 06-27-2024 Urea nitrogen/Creatinine [Mass ratio] 31.6 mg/mg High 10-[address] [facility] Carbon dioxide measurementOr dered By: Guilherme Butt on 06-27-2024 CO2 [Moles/Vol] 28.0 mmol/L 21.0-32.[address] [facility] Chloride measurementOrdered By: Guilherme Butt on 06-27-2024 Chloride [Moles/Vol] 107 mmol/L 98-107 [facility] Erythrocyte distribution wid th (RBC) [Ratio]Ordered By: Guilherme Butt on 06-27-2024 Erythrocyte distribution width (RBC) [Entitic vol] 43.9 fL 35.1-43.[address] [facility] Erythrocyte distribution wid th ratioOrdered By: Guilherme Butt on 06-27-2024 Erythrocyte distribution width (RBC) [Ratio] 12.6 % 11.6-14.[address] [facility] Erythrocyte distribution wid th standard deviationOrdered By: Guilherme Butt on 06-27-2024 Erythrocyte distribution width (RBC) [Ratio] 43.9 fl 35.1-43.[address] [facility] Estimated glomerular filtrat ion rate (GFR) AmericanOrdered By: Guilherme Butt on 06-27-2024 Estimated GFR (MDRD) Amer 99 mL/min >[address] [facility] Comment on above: GFR Calc Glomerular filtration rate ( GFR) estimationOrdered By: Guilherme Butt on 06-27-2024 Estimated GFR (MDRD) Non-Af Amer 81 mL/min >[address] [facility] Comment on above: Non- GFR Calc GFR/1.73 sq M.predicted among non-blacks MDRD (S/P/Bld) [Vol rate/Area] 81 mL/min/{1.73_m2} >[address] [facility] Comment on above: Non- GFR Calc Glucose measurementOrdered B y: Guilherme Butt on 06-27-2024 Glucose [Mass/Vol] 88 mg/dL 74-106 [facility] Hematocrit Auto (Bld) [Volum e fraction]Ordered By: Guilherme Butt on 06-27-2024 Hematocrit (Bld) [Volume fraction] 37.5 % Low 40-[address] [facility] Hemoglobin measurementOrdere d By: Guilherme Butt on 06-27-2024 Hemoglobin (Bld) [Mass/Vol] 12.7 g/dL Low 13.0-16.[address] [facility] MCV (mean corpuscular volume ) determinationOrdered By: Guilherme Butt on 06-27-2024 MCV (RBC) [Entitic vol] 94.7 fL High 80-94 [facility] Mean corpuscular hemoglobin (MCH) determinationOrdered By: Guilherme Butt on 06-27-2024 MCH (RBC) [Entitic mass] 32.1 pg High 27.0-32.[address] [facility] Mean corpuscular hemoglobin concentration (MCHC) determinationOrdered By: Guilherme Butt on 06-27-2024 MCHC (RBC) [Mass/Vol] 33.9 g/dL 32-36 [facility] Mean platelet volume determi nationOrdered By: Guilherme Butt on 06-27-2024 Platelet mean volume (Bld) [Entitic vol] 9.1 fL 6.2-12.[address] [facility] Platelet countOrdered By: Roselia Butt on 06-27-2024 Platelets (Bld) [#/Vol] 173 10*3/uL 150-[address] [facility] Potassium measurementOrdered By: Guilherme Butt on 06-27-2024 Potassium [Moles/Vol] 4.1 mmol/L 3.5-5.1 [facility] RBC Auto (Bld) [#/Vol]Ordere d By: Guilherme Butt on 06-27-2024 RBC (Bld) [#/Vol] 3.96 10*6/uL Low 4.6-6.2 [facility] Serum anion gap measurementO rdered By: Guilherme Butt on 06-27-2024 Anion gap [Moles/Vol] 6 mmol/L 5-15 [facility] Serum or plasma calcium farshad urement (mass/volume)Ordered By: Guilherme Butt on 06-27-2024 Calcium [Mass/Vol] 9.0 mg/dL 8.5-10.1 [facility] Serum or plasma creatinine m easurement (mass/volume)Ordered By: Guilherme Butt on 06-27-2024 Creatinine [Mass/Vol] 0.95 mg/dL 0.70-1.30 [facility] Comment on above: The validity of the calculated GFR & GFRAA in patients over 70 years has not been determined. Clinical correlation is essential. Serum or plasma urea nitroge n measurement (mass/volume)Ordered By: Guilherme Butt on 06-27-2024 Urea nitrogen [Mass/Vol] 30 mg/dL High 7-[address] [facility] Sodium levelOrdered By: Kelly Butt on 06-27-2024 Sodium [Moles/Vol] 141 mmol/L 136-145 [facility] White blood cell (WBC) count Ordered By: Guilherme Butt on 06-27-2024 WBC (Bld) [#/Vol] 4.2 10*3/uL Low 4.4-11.0 [facility] Blood urea nitrogen (BUN)/cr eatinine ratioOrdered By: Guilherme Butt on 05-23-2024 Urea nitrogen/Creatinine [Mass ratio] 27.9 mg/mg High 10-[address] [facility] Carbon dioxide measurementOr dered By: Guilherme Butt on 05-23-2024 CO2 [Moles/Vol] 32.0 mmol/L 21.0-32.[address] [facility] Chloride measurementOrdered By: Guilherme Butt on 05-23-2024 Chloride [Moles/Vol] 105 mmol/L 98-107 [facility] Erythrocyte distribution wid th (RBC) [Ratio]Ordered By: Guilherme Butt on 05-23-2024 Erythrocyte distribution width (RBC) [Entitic vol] 44.6 fL High 35.1-43.[address] [facility] Erythrocyte distribution wid th ratioOrdered By: Guilherme Butt on 05-23-2024 Erythrocyte distribution width (RBC) [Ratio] 12.7 % 11.6-14.[address] [facility] Erythrocyte distribution wid th standard deviationOrdered By: Guilherme Butt on 05-23-2024 Erythrocyte distribution width (RBC) [Ratio] 44.6 fl High 35.1-43.[address] [facility] Estimated glomerular filtrat ion rate (GFR) AmericanOrdered By: Guilherme Butt on 05-23-2024 Estimated GFR (MDRD) Amer 101 mL/min >[address] [facility] Comment on above: GFR Calc Glomerular filtration rate ( GFR) estimationOrdered By: Guilherme Butt on 05-23-2024 Estimated GFR (MDRD) Non-Af Amer 83 mL/min >[address] [facility] Comment on above: Non- GFR Calc GFR/1.73 sq M.predicted among non-blacks MDRD (S/P/Bld) [Vol rate/Area] 83 mL/min/{1.73_m2} >[address] [facility] Comment on above: Non- GFR Calc Glucose measurementOrdered B y: Guilherme Butt on 05-23-2024 Glucose [Mass/Vol] 90 mg/dL 74-106 [facility] Hematocrit Auto (Bld) [Volum e fraction]Ordered By: Guilherme Butt on 05-23-2024 Hematocrit (Bld) [Volume fraction] 40.6 % 40-[address] [facility] Hemoglobin measurementOrdere d By: Guilherme Butt on 05-23-2024 Hemoglobin (Bld) [Mass/Vol] 13.4 g/dL 13.0-16.[address] [facility] MCV (mean corpuscular volume ) determinationOrdered By: Guilherme Butt on 05-23-2024 MCV (RBC) [Entitic vol] 95.8 fL High 80-94 [facility] Mean corpuscular hemoglobin (MCH) determinationOrdered By: Guilherme Butt on 05-23-2024 MCH (RBC) [Entitic mass] 31.6 pg 27.0-32.[address] [facility] Mean corpuscular hemoglobin concentration (MCHC) determinationOrdered By: Guilherme Butt on 05-23-2024 MCHC (RBC) [Mass/Vol] 33.0 g/dL 32-36 [facility] Mean platelet volume determi nationOrdered By: Guilherme Btut on 05-23-2024 Platelet mean volume (Bld) [Entitic vol] 9.3 fL 6.2-12.[address] [facility] Platelet countOrdered By: Roselia Butt on 05-23-2024 Platelets (Bld) [#/Vol] 181 10*3/uL 150-[address] [facility] Potassium measurementOrdered By: Guilherme Butt on 05-23-2024 Potassium [Moles/Vol] 4.4 mmol/L 3.5-5.1 [facility] RBC Auto (Bld) [#/Vol]Ordere d By: Guilherme Butt on 05-23-2024 RBC (Bld) [#/Vol] 4.24 10*6/uL Low 4.6-6.2 [facility] Serum anion gap measurementO rdered By: Guilherme Butt on 05-23-2024 Anion gap [Moles/Vol] 2 mmol/L Low 5-15 [facility] Serum or plasma calcium farshad urement (mass/volume)Ordered By: Guilherme Butt on 05-23-2024 Calcium [Mass/Vol] 9.2 mg/dL 8.5-10.1 [facility] Serum or plasma creatinine m easurement (mass/volume)Ordered By: Guilherme Butt on 05-23-2024 Creatinine [Mass/Vol] 0.93 mg/dL 0.70-1.30 [facility] Comment on above: The validity of the calculated GFR & GFRAA in patients over 70 years has not been determined. Clinical correlation is essential. Serum or plasma urea nitroge n measurement (mass/volume)Ordered By: Guilherme Butt on 05-23-2024 Urea nitrogen [Mass/Vol] 26 mg/dL High 7-[address] [facility] Sodium levelOrdered By: Kelly Butt on 05-23-2024 Sodium [Moles/Vol] 138 mmol/L 136-145 [facility] White blood cell (WBC) count Ordered By: Guilherme Butt on 05-23-2024 WBC (Bld) [#/Vol] 4.7 10*3/uL 4.4-11.0 [facility] Blood urea nitrogen (BUN)/cr eatinine ratioOrdered By: Guilherme Butt on 04-25-2024 Urea nitrogen/Creatinine [Mass ratio] 28.1 mg/mg High 10-[address] [facility] Carbon dioxide measurementOr dered By: Guilherme Butt on 04-25-2024 CO2 [Moles/Vol] 31.0 mmol/L 21.0-32.[address] [facility] Chloride measurementOrdered By: Guilherme Butt on 04-25-2024 Chloride [Moles/Vol] 104 mmol/L 98-107 [facility] Erythrocyte distribution wid th (RBC) [Ratio]Ordered By: Guilherme Butt on 04-25-2024 Erythrocyte distribution width (RBC) [Entitic vol] 45.0 fL High 35.1-43.[address] [facility] Erythrocyte distribution wid th ratioOrdered By: Guilherme Butt on 04-25-2024 Erythrocyte distribution width (RBC) [Ratio] 12.8 % 11.6-14.[address] [facility] Estimated glomerular filtrat ion rate (GFR) AmericanOrdered By: Guilherme Butt on 04-25-2024 Estimated GFR (MDRD) Amer 93 mL/min >[address] [facility] Comment on above: GFR Calc Glomerular filtration rate ( GFR) estimationOrdered By: Guilherme Butt on 04-25-2024 Estimated GFR (MDRD) Non-Af Amer 77 mL/min >[address] [facility] Comment on above: Non- GFR Calc Glucose measurementOrdered B y: Guilherme Butt on 04-25-2024 Glucose [Mass/Vol] 125 mg/dL High 74-106 [facility] Comment on above: Fasting Glucose resu lt from 100 to 125 mg/dL suggests IMPAIRED HOMEOSTASIS per A.D.A. criteria. Hematocrit Auto (Bld) [Volum e fraction]Ordered By: Guilherme Butt on 04-25-2024 Hematocrit (Bld) [Volume fraction] 39.0 % Low 40-[address] [facility] Hemoglobin measurementOrdere d By: Guilherme Butt on 04-25-2024 Hemoglobin (Bld) [Mass/Vol] 12.8 g/dL Low 13.0-16.[address] [facility] MCV (mean corpuscular volume ) determinationOrdered By: Guilherme Butt 04-25-2024 MCV (RBC) [Entitic vol] 95.8 fL High 80-94 [facility] Mean corpuscular hemoglobin (MCH) determinationOrdered By: Guilherme Butt on 04-25-2024 MCH (RBC) [Entitic mass] 31.4 pg 27.0-32.[address] [facility] Mean corpuscular hemoglobin concentration (MCHC) determinationOrdered By: Guilherme Butt on 04-25-2024 MCHC (RBC) [Mass/Vol] 32.8 g/dL 32-36 [facility] Mean platelet volume determi nationOrdered By: Guilherme Butt on 04-25-2024 Platelet mean volume (Bld) [Entitic vol] 9.2 fL 6.2-12.[address] [facility] Platelet countOrdered By: Roselia felipa Butt on 04-25-2024 Platelets (Bld) [#/Vol] 176 10*3/uL 150-[address] [facility] Potassium measurementOrdered By: Guilherme Butt on 04-25-2024 Potassium [Moles/Vol] 3.9 mmol/L 3.5-5.1 [facility] RBC Auto (Bld) [#/Vol]Ordere d By: Guilherme Yonasjack on 04-25-2024 RBC (Bld) [#/Vol] 4.07 10*6/uL Low 4.6-6.2 [facility] Serum anion gap measurementO rdered By: Guilherme Butt on 04-25-2024 Anion gap [Moles/Vol] 4 mmol/L Low 5-15 [facility] Serum or plasma calcium farshad urement (mass/volume)Ordered By: Guilherme Yonasjack on 04-25-2024 Calcium [Mass/Vol] 9.0 mg/dL 8.5-10.1 [facility] Serum or plasma creatinine m easurement (mass/volume)Ordered By: Guilherme Yonasjack 04-25-2024 Creatinine [Mass/Vol] 1.00 mg/dL 0.70-1.30 [facility] Comment on above: The validity of the calculated GFR & GFRAA in patients over 70 years has not been determined. Clinical correlation is essential. Serum or plasma urea nitroge n measurement (mass/volume)Ordered By: Reillydmitri Branhammarianjessenia on 04-25-2024 Urea nitrogen [Mass/Vol] 28 mg/dL High 7-[address] [facility] Sodium levelOrdered By: Kelly rodríguez Yonasjack on 04-25-2024 Sodium [Moles/Vol] 139 mmol/L 136-145 [facility] White blood cell (WBC) count Ordered By: Guilherme Yonasjack on 04-25-2024 WBC (Bld) [#/Vol] 4.2 10*3/uL Low 4.4-11.0 [facility] Basophil percentageOrdered B y: Guilherme Butt on 08-24-2023 Chloride [Moles/Vol] 105 mmol/L 98-107 [facility] Glucose [Mass/Vol] 86 mg/dL 74-106 [facility] Hemoglobin (Bld) [Mass/Vol] 13.3 g/dL 13.0-16.[address] [facility] Potassium [Moles/Vol] 4.5 mmol/L 3.5-5.1 [facility] Sodium [Moles/Vol] 138 mmol/L 136-145 [facility] WBC (Bld) [#/Vol] 4.6 10*3/uL 4.4-11.0 [facility] Determination of erythrocyte mean corpuscular volume (MCV)Ordered By: Kellyatkinsondmitri Butt on 08-24-2023 MCV (RBC) [Entitic vol] 96.2 fL 80-94 [facility] Erythrocyte distribution wid th ratioOrdered By: Kellyatkinsondmitri Butt on 08-24-2023 Erythrocyte distribution width (RBC) [Ratio] 13.0 % 11.6-14.[address] [facility] Erythrocyte distribution wid th standard deviationOrdered By: [facility]at[facility] medical centerdmitri Butt on 08-24-2023 Erythrocyte distribution width (RBC) [Entitic vol] 46.1 fL 35.1-43.[address] [facility] Hematocrit Auto (Bld) [Volum e fraction]Ordered By: Kellyatkinsondmitri Butt on 08-24-2023 Hematocrit (Bld) [Volume fraction] 40.6 % 40-[address] [facility] Laboratory - Chemistry and C hemistry - challengeOrdered By: Guilherme Butt on 08-24-2023 CO2 [Moles/Vol] 30.0 mmol/L 21.0-32.[address] [facility] Urea nitrogen/Creatinine [Mass ratio] 26.9 mg/mg 10-[address] [facility] Laboratory - Hematology and Cell countsOrdered By: Guilherme Butt on 08-24-2023 MCH (RBC) [Entitic mass] 31.5 pg 27.0-32.[address] [facility] MCHC (RBC) [Mass/Vol] 32.8 g/dL 32-36 [facility] Platelet mean volume (Bld) [Entitic vol] 9.2 fL 6.2-12.[address] [facility] Platelets (Bld) [#/Vol] 193 10*3/uL 150-[address] [facility] No Panel InformationOrdered By: Guilherme Butt on 08-24-2023 Estimated GFR (MDRD) Amer 89 mL/min >[address] [facility] Comment on above: GFR Calc Estimated GFR (MDRD) Non-Af Amer 73 mL/min >[address] [facility] Comment on above: Non- GFR Calc RBC Auto (Bld) [#/Vol]Ordere d By: Guilherme Butt on 08-24-2023 RBC (Bld) [#/Vol] 4.22 10*6/uL 4.6-6.2 [facility] Serum or plasma calcium farshad urement (mass/volume)Ordered By: Guilherme Butt on 08-24-2023 Calcium [Mass/Vol] 9.0 mg/dL 8.5-10.1 [facility] Serum or plasma creatinine m easurement (mass/volume)Ordered By: Guilherme Butt on 08-24-2023 Creatinine [Mass/Vol] 1.04 mg/dL 0.70-1.30 [facility] Comment on above: The validity of the calculated GFR & GFRAA in patients over 70 years has not been determined. Clinical correlation is essential. Serum or plasma urea nitroge n measurement (mass/volume)Ordered By: Guilherme Butt on 08-24-2023 Urea nitrogen [Mass/Vol] 28 mg/dL 7-[address] [facility] Thin prep Papanicolaou smear with manual screeningOrdered By: Guilherme Butt on 08-24-2023 Thin prep Papanicolaou smear with manual screening 3 5-[address] [facility] Basophil percentageOrdered B y: Guilherme Butt on 07-20-2023 Chloride [Moles/Vol] 109 mmol/L 98-107 [facility] Glucose [Mass/Vol] 83 mg/dL 74-106 [facility] Hemoglobin (Bld) [Mass/Vol] 13.1 g/dL 13.0-16.[address] [facility] Potassium [Moles/Vol] 4.2 mmol/L 3.5-5.1 [facility] Sodium [Moles/Vol] 142 mmol/L 136-145 [facility] WBC (Bld) [#/Vol] 4.5 10*3/uL 4.4-11.0 [facility] Determination of erythrocyte mean corpuscular volume (MCV)Ordered By: Guilherme Butt on 07-20-2023 MCV (RBC) [Entitic vol] 94.4 fL 80-94 [facility] Erythrocyte distribution wid th ratioOrdered By: Piedmont Mcduffiedmitri Butt on 07-20-2023 Erythrocyte distribution width (RBC) [Ratio] 12.8 % 11.6-14.[address] [facility] Erythrocyte distribution wid th standard deviationOrdered By: Kellyatkinsondmitri Butt on 07-20-2023 Erythrocyte distribution width (RBC) [Entitic vol] 44.0 fL 35.1-43.[address] [facility] Hematocrit Auto (Bld) [Volum e fraction]Ordered By: Guilherme Butt on 07-20-2023 Hematocrit (Bld) [Volume fraction] 38.9 % 40-[address] [facility] Laboratory - Chemistry and C hemistry - challengeOrdered By: Guilherme Butt on 07-20-2023 CO2 [Moles/Vol] 26.0 mmol/L 21.0-32.[address] [facility] Urea nitrogen/Creatinine [Mass ratio] 31.5 mg/mg 10-[address] [facility] Laboratory - Hematology and Cell countsOrdered By: Guilherme Butt on 07-20-2023 MCH (RBC) [Entitic mass] 31.8 pg 27.0-32.[address] [facility] MCHC (RBC) [Mass/Vol] 33.7 g/dL 32-36 [facility] Platelet mean volume (Bld) [Entitic vol] 9.1 fL 6.2-12.[address] [facility] Platelets (Bld) [#/Vol] 195 10*3/uL 150-[address] [facility] No Panel InformationOrdered By: Guilherme Butt on 07-20-2023 Estimated GFR (MDRD) Amer 102 mL/min >[address] [facility] Comment on above: GFR Calc Estimated GFR (MDRD) Non-Af Amer 84 mL/min >[address] [facility] Comment on above: Non- GFR Calc RBC Auto (Bld) [#/Vol]Ordere d By: Guilherme Butt on 07-20-2023 RBC (Bld) [#/Vol] 4.12 10*6/uL 4.6-6.2 [facility] Serum or plasma calcium farshad urement (mass/volume)Ordered By: Guilherme Butt on 07-20-2023 Calcium [Mass/Vol] 8.8 mg/dL 8.5-10.1 [facility] Serum or plasma creatinine m easurement (mass/volume)Ordered By: Guilherme Butt on 07-20-2023 Creatinine [Mass/Vol] 0.92 mg/dL 0.70-1.30 [facility] Comment on above: The validity of the calculated GFR & GFRAA in patients over 70 years has not been determined. Clinical correlation is essential. Serum or plasma urea nitroge n measurement (mass/volume)Ordered By: Guilherme Butt on 07-20-2023 Urea nitrogen [Mass/Vol] 29 mg/dL 7-[address] [facility] Thin prep Papanicolaou smear with manual screeningOrdered By: Kellyatkinsondmitri Butt on 07-20-2023 Thin prep Papanicolaou smear with manual screening 7 5-[address] [facility] Basophil percentageOrdered B y: Guilherme Butt on 06-22-2023 Chloride [Moles/Vol] 107 mmol/L 98-107 [facility] Glucose [Mass/Vol] 88 mg/dL 74-106 [facility] Hemoglobin (Bld) [Mass/Vol] 12.8 g/dL 13.0-16.[address] [facility] Potassium [Moles/Vol] 4.4 mmol/L 3.5-5.1 [facility] Sodium [Moles/Vol] 141 mmol/L 136-145 [facility] WBC (Bld) [#/Vol] 4.6 10*3/uL 4.4-11.0 [facility] Determination of erythrocyte mean corpuscular volume (MCV)Ordered By: Guilherme Butt on 06-22-2023 MCV (RBC) [Entitic vol] 93.4 fL 80-94 [facility] Erythrocyte distribution wid th ratioOrdered By: Guilherme Butt on 06-22-2023 Erythrocyte distribution width (RBC) [Ratio] 12.5 % 11.6-14.[address] [facility] Erythrocyte distribution wid th standard deviationOrdered By: Guilherme Butt on 06-22-2023 Erythrocyte distribution width (RBC) [Entitic vol] 43.2 fL 35.1-43.[address] [facility] Hematocrit Auto (Bld) [Volum e fraction]Ordered By: Guilherme Butt on 06-22-2023 Hematocrit (Bld) [Volume fraction] 38.4 % 40-[address] [facility] Laboratory - Chemistry and C hemistry - challengeOrdered By: Guilherme Butt on 06-22-2023 CO2 [Moles/Vol] 30.0 mmol/L 21.0-32.[address] [facility] Urea nitrogen/Creatinine [Mass ratio] 26.5 mg/mg 10-[address] [facility] Laboratory - Hematology and Cell countsOrdered By: Guilherme Butt on 06-22-2023 MCH (RBC) [Entitic mass] 31.1 pg 27.0-32.[address] [facility] MCHC (RBC) [Mass/Vol] 33.3 g/dL 32-36 [facility] Platelet mean volume (Bld) [Entitic vol] 9.0 fL 6.2-12.[address] [facility] Platelets (Bld) [#/Vol] 194 10*3/uL 150-[address] [facility] No Panel InformationOrdered By: Guilherme Butt on 06-22-2023 Estimated GFR (MDRD) Amer 104 mL/min >[address] [facility] Comment on above: GFR Calc Estimated GFR (MDRD) Non-Af Amer 86 mL/min >[address] [facility] Comment on above: Non- GFR Calc RBC Auto (Bld) [#/Vol]Ordere d By: Guilherme Butt on 06-22-2023 RBC (Bld) [#/Vol] 4.11 10*6/uL 4.6-6.2 [facility] Serum or plasma calcium farshad urement (mass/volume)Ordered By: Guilherme Butt on 06-22-2023 Calcium [Mass/Vol] 8.8 mg/dL 8.5-10.1 [facility] Serum or plasma creatinine m easurement (mass/volume)Ordered By: Guilherme Butt on 06-22-2023 Creatinine [Mass/Vol] 0.90 mg/dL 0.70-1.30 [facility] Comment on above: The validity of the calculated GFR & GFRAA in patients over 70 years has not been determined. Clinical correlation is essential. Serum or plasma urea nitroge n measurement (mass/volume)Ordered By: Guilherme Butt on 06-22-2023 Urea nitrogen [Mass/Vol] 24 mg/dL 7-[address] [facility] Thin prep Papanicolaou smear with manual screeningOrdered By: Guilherme Butt on 06-22-2023 Thin prep Papanicolaou smear with manual screening 4 5-[address] [facility] Basophil percentageOrdered B y: Cecy Gray on 05-25-2023 Chloride [Moles/Vol] 107 mmol/L 98-107 [facility] Glucose [Mass/Vol] 138 mg/dL 74-106 [facility] Comment on above: Fasting Glucose resu lt greater than or equal to 126 mg/dL suggests DIABETES MELLITUS per A.D.A. criteria. Potassium [Moles/Vol] 4.1 mmol/L 3.5-5.1 [facility] Sodium [Moles/Vol] 141 mmol/L 136-145 [facility] WBC (Bld) [#/Vol] 5.5 10*3/uL 4.4-11.0 [facility] Blood erythrocytes count (nu mber/volume)Ordered By: Cecy Gray on 05-25-2023 RBC (Bld) [#/Vol] 4.36 10*6/uL 4.6-6.2 [facility] Blood hemoglobin measurement (mass/volume)Ordered By: Cecy Gray on 05-25-2023 Hemoglobin (Bld) [Mass/Vol] 13.5 g/dL 13.0-16.[address] [facility] Blood platelet mean volumeOr dered By: Cecy Gray on 05-25-2023 Platelet mean volume (Bld) [Entitic vol] 9.2 fL 6.2-12.[address] [facility] Determination of erythrocyte mean corpuscular volume (MCV)Ordered By: Cecy Gray on 05-25-2023 MCV (RBC) [Entitic vol] 94.0 fL 80-94 [facility] Hematocrit Auto (Bld) [Volum e fraction]Ordered By: Cecy Gray on 05-25-2023 Hematocrit (Bld) [Volume fraction] 41.0 % 40-[address] [facility] Laboratory - Chemistry and C hemistry - challengeOrdered By: Cecy Gray on 05-25-2023 CO2 [Moles/Vol] 26.0 mmol/L 21.0-32.[address] [facility] Urea nitrogen/Creatinine [Mass ratio] 25.2 mg/mg 10-[address] [facility] Laboratory - Hematology and Cell countsOrdered By: Cecy Gray on 05-25-2023 Erythrocyte distribution width (RBC) [Entitic vol] 43.3 fL 35.1-43.[address] [facility] Erythrocyte distribution width (RBC) [Ratio] 12.4 % 11.6-14.[address] [facility] MCH (RBC) [Entitic mass] 31.0 pg 27.0-32.[address] [facility] MCHC Auto (RBC) [Mass/Vol]Or dered By: Cecy Gray on 05-25-2023 MCHC (RBC) [Mass/Vol] 32.9 g/dL 32-36 [facility] No Panel InformationOrdered By: Cecy Gray on 05-25-2023 Estimated GFR (MDRD) Amer 86 mL/min >[address] [facility] Comment on above: GFR Calc Estimated GFR (MDRD) Non-Af Amer 71 mL/min >[address] [facility] Comment on above: Non- GFR Calc Platelets bldOrdered By: Reinier Gray on 05-25-2023 Platelets (Bld) [#/Vol] 214 10*3/uL 150-[address] [facility] Serum or plasma calcium farshad urement (mass/volume)Ordered By: Cecy Gray on 05-25-2023 Calcium [Mass/Vol] 9.2 mg/dL 8.5-10.1 [facility] Serum or plasma creatinine m easurement (mass/volume)Ordered By: Cecy Gray on 05-25-2023 Creatinine [Mass/Vol] 1.07 mg/dL 0.70-1.30 [facility] Comment on above: The validity of the calculated GFR & GFRAA in patients over 70 years has not been determined. Clinical correlation is essential. Serum or plasma urea nitroge n measurement (mass/volume)Ordered By: Cecy Gray on 05-25-2023 Urea nitrogen [Mass/Vol] 27 mg/dL 7-[address] [facility] Thin prep Papanicolaou smear with manual screeningOrdered By: Cecy Gray on 05-25-2023 Thin prep Papanicolaou smear with manual screening 8 5-[address] [facility] Basophil percentageOrdered B y: Cecy Gray on 04-20-2023 Chloride [Moles/Vol] 106 mmol/L 98-107 [facility] Glucose [Mass/Vol] 100 mg/dL 74-106 [facility] Comment on above: Fasting Glucose resu lt from 100 to 125 mg/dL suggests IMPAIRED HOMEOSTASIS per A.D.A. criteria. Potassium [Moles/Vol] 4.8 mmol/L 3.5-5.1 [facility] Sodium [Moles/Vol] 140 mmol/L 136-145 [facility] WBC (Bld) [#/Vol] 5.2 10*3/uL 4.4-11.0 [facility] Blood erythrocytes count (nu mber/volume)Ordered By: Cecy Gray on 04-20-2023 RBC (Bld) [#/Vol] 4.26 10*6/uL 4.6-6.2 [facility] Blood hemoglobin measurement (mass/volume)Ordered By: Cecy Gray on 04-20-2023 Hemoglobin (Bld) [Mass/Vol] 13.8 g/dL 13.0-16.[address] [facility] Blood platelet mean volumeOr dered By: Cecy Gray on 04-20-2023 Platelet mean volume (Bld) [Entitic vol] 9.1 fL 6.2-12.[address] [facility] Determination of erythrocyte mean corpuscular volume (MCV)Ordered By: Cecy Gray on 04-20-2023 MCV (RBC) [Entitic vol] 96.9 fL 80-94 [facility] Hematocrit Auto (Bld) [Volum e fraction]Ordered By: Cecy Gray on 04-20-2023 Hematocrit (Bld) [Volume fraction] 41.3 % 40-[address] [facility] Laboratory - Chemistry and C hemistry - challengeOrdered By: Cecy Gray on 04-20-2023 CO2 [Moles/Vol] 34.0 mmol/L 21.0-32.[address] [facility] Urea nitrogen/Creatinine [Mass ratio] 23.8 mg/mg 10-[address] [facility] Laboratory - Hematology and Cell countsOrdered By: Cecy Gray on 04-20-2023 Erythrocyte distribution width (RBC) [Entitic vol] 45.5 fL 35.1-43.[address] [facility] Erythrocyte distribution width (RBC) [Ratio] 12.8 % 11.6-14.[address] [facility] MCH (RBC) [Entitic mass] 32.4 pg 27.0-32.[address] [facility] MCHC Auto (RBC) [Mass/Vol]Or dered By: Cecy Gray on 04-20-2023 MCHC (RBC) [Mass/Vol] 33.4 g/dL 32-36 [facility] No Panel InformationOrdered By: Cecy Gray on 04-20-2023 Estimated GFR (MDRD) Amer 88 mL/min >[address] [facility] Comment on above: GFR Calc Estimated GFR (MDRD) Non-Af Amer 73 mL/min >[address] [facility] Comment on above: Non- GFR Calc Platelets bldOrdered By: Reinier Gray on 04-20-2023 Platelets (Bld) [#/Vol] 234 10*3/uL 150-[address] [facility] Serum or plasma calcium farshad urement (mass/volume)Ordered By: Cecy Gray on 04-20-2023 Calcium [Mass/Vol] 9.3 mg/dL 8.5-10.1 [facility] Serum or plasma creatinine m easurement (mass/volume)Ordered By: Cecy Gray on 04-20-2023 Creatinine [Mass/Vol] 1.05 mg/dL 0.70-1.30 [facility] Comment on above: The validity of the calculated GFR & GFRAA in patients over 70 years has not been determined. Clinical correlation is essential. Serum or plasma urea nitroge n measurement (mass/volume)Ordered By: Cecy Gray on 04-20-2023 Urea nitrogen [Mass/Vol] 25 mg/dL 7-[address] [facility] Thin prep Papanicolaou smear with manual screeningOrdered By: Cecy Gray on 04-20-2023 Thin prep Papanicolaou smear with manual screening 0 5-[address] [facility] Basophil percentageOrdered B y: Cecy Gray on 03-23-2023 Chloride [Moles/Vol] 104 mmol/L 98-107 [facility] Glucose [Mass/Vol] 91 mg/dL 74-106 [facility] Potassium [Moles/Vol] 4.1 mmol/L 3.5-5.1 [facility] Sodium [Moles/Vol] 141 mmol/L 136-145 [facility] WBC (Bld) [#/Vol] 4.5 10*3/uL 4.4-11.0 [facility] Blood erythrocytes count (nu mber/volume)Ordered By: Cecy Gray on 03-23-2023 RBC (Bld) [#/Vol] 4.07 10*6/uL 4.6-6.2 [facility] Blood hemoglobin measurement (mass/volume)Ordered By: Cecy Gray on 03-23-2023 Hemoglobin (Bld) [Mass/Vol] 12.8 g/dL 13.0-16.[address] [facility] Blood platelet mean volumeOr dered By: Cecy Gray on 03-23-2023 Platelet mean volume (Bld) [Entitic vol] 9.4 fL 6.2-12.[address] [facility] Determination of erythrocyte mean corpuscular volume (MCV)Ordered By: Cecy Gray on 03-23-2023 MCV (RBC) [Entitic vol] 97.5 fL 80-94 [facility] Hematocrit Auto (Bld) [Volum e fraction]Ordered By: Cecy Gray on 03-23-2023 Hematocrit (Bld) [Volume fraction] 39.7 % 40-[address] [facility] Laboratory - Chemistry and C hemistry - challengeOrdered By: Cecy Gray on 03-23-2023 CO2 [Moles/Vol] 31.0 mmol/L 21.0-32.[address] [facility] Urea nitrogen/Creatinine [Mass ratio] 28.0 mg/mg 10-[address] [facility] Laboratory - Hematology and Cell countsOrdered By: Cecy Gray on 03-23-2023 Erythrocyte distribution width (RBC) [Entitic vol] 46.2 fL 35.1-43.[address] [facility] Erythrocyte distribution width (RBC) [Ratio] 12.8 % 11.6-14.[address] [facility] MCH (RBC) [Entitic mass] 31.4 pg 27.0-32.[address] [facility] MCHC Auto (RBC) [Mass/Vol]Or dered By: Cecy Gray on 03-23-2023 MCHC (RBC) [Mass/Vol] 32.2 g/dL 32-36 [facility] No Panel InformationOrdered By: Cecy Gray on 03-23-2023 Estimated GFR (MDRD) Amer 93 mL/min >[address] [facility] Comment on above: GFR Calc Estimated GFR (MDRD) Non-Af Amer 77 mL/min >[address] [facility] Comment on above: Non- GFR Calc Platelets bldOrdered By: Reinier Gray on 03-23-2023 Platelets (Bld) [#/Vol] 210 10*3/uL 150-[address] [facility] Serum or plasma calcium farshad urement (mass/volume)Ordered By: Cecy Gray on 03-23-2023 Calcium [Mass/Vol] 8.9 mg/dL 8.5-10.1 [facility] Serum or plasma creatinine m easurement (mass/volume)Ordered By: Cecy Gray on 03-23-2023 Creatinine [Mass/Vol] 1.00 mg/dL 0.70-1.30 [facility] Comment on above: The validity of the calculated GFR & GFRAA in patients over 70 years has not been determined. Clinical correlation is essential. Serum or plasma urea nitroge n measurement (mass/volume)Ordered By: Cecy Gray on 03-23-2023 Urea nitrogen [Mass/Vol] 28 mg/dL 7-[address] [facility] Thin prep Papanicolaou smear with manual screeningOrdered By: Cecy Gray on 03-23-2023 Thin prep Papanicolaou smear with manual screening 6 5-[address] [facility] Basophil percentageOrdered B y: Cecy Gray on 02-23-2023 Chloride [Moles/Vol] 106 mmol/L 98-107 [facility] Glucose [Mass/Vol] 93 mg/dL 74-106 [facility] Potassium [Moles/Vol] 4.3 mmol/L 3.5-5.1 [facility] Sodium [Moles/Vol] 139 mmol/L 136-145 [facility] WBC (Bld) [#/Vol] 5.0 10*3/uL 4.4-11.0 [facility] Blood erythrocytes count (nu mber/volume)Ordered By: Ccey Gray on 02-23-2023 RBC (Bld) [#/Vol] 4.08 10*6/uL 4.6-6.2 [facility] Blood hemoglobin measurement (mass/volume)Ordered By: Cecy Gray on 02-23-2023 Hemoglobin (Bld) [Mass/Vol] 12.9 g/dL 13.0-16.[address] [facility] Blood platelet mean volumeOr dered By: Cecy Gray on 02-23-2023 Platelet mean volume (Bld) [Entitic vol] 9.3 fL 6.2-12.[address] [facility] Determination of erythrocyte mean corpuscular volume (MCV)Ordered By: Cecy Gray on 02-23-2023 MCV (RBC) [Entitic vol] 97.8 fL 80-94 [facility] Hematocrit Auto (Bld) [Volum e fraction]Ordered By: Cecy Gray on 02-23-2023 Hematocrit (Bld) [Volume fraction] 39.9 % 40-[address] [facility] Laboratory - Chemistry and C hemistry - challengeOrdered By: Cecy Gray on 02-23-2023 CO2 [Moles/Vol] 30.0 mmol/L 21.0-32.[address] [facility] Urea nitrogen/Creatinine [Mass ratio] 29.9 mg/mg 10-[address] [facility] Laboratory - Hematology and Cell countsOrdered By: Cecy Gray on 02-23-2023 Erythrocyte distribution width (RBC) [Entitic vol] 45.7 fL 35.1-43.[address] [facility] Erythrocyte distribution width (RBC) [Ratio] 12.6 % 11.6-14.[address] [facility] MCH (RBC) [Entitic mass] 31.6 pg 27.0-32.[address] [facility] MCHC Auto (RBC) [Mass/Vol]Or dered By: Cecy Gray on 02-23-2023 MCHC (RBC) [Mass/Vol] 32.3 g/dL 32- [facility] No Panel InformationOrdered By: Cecy Gray on 02-23-2023 Estimated GFR (MDRD) Amer 86 mL/min >[address] [facility] Comment on above: GFR Calc Estimated GFR (MDRD) Non-Af Amer 71 mL/min >[address] [facility] Comment on above: Non- GFR Calc Platelets bldOrdered By: Reinier Gray on 02-23-2023 Platelets (Bld) [#/Vol] 201 10*3/uL 150-[address] [facility] Serum or plasma calcium farshad urement (mass/volume)Ordered By: Cecy Gray on 02-23-2023 Calcium [Mass/Vol] 8.8 mg/dL 8.5-10.1 [facility] Serum or plasma creatinine m easurement (mass/volume)Ordered By: Cecy Gray on 02-23-2023 Creatinine [Mass/Vol] 1.07 mg/dL 0.70-1.30 [facility] Comment on above: The validity of the calculated GFR & GFRAA in patients over 70 years has not been determined. Clinical correlation is essential. Serum or plasma urea nitroge n measurement (mass/volume)Ordered By: Cecy Gray on 02-23-2023 Urea nitrogen [Mass/Vol] 32 mg/dL 7-[address] [facility] Thin prep Papanicolaou smear with manual screeningOrdered By: Cecy Gray on 02-23-2023 Thin prep Papanicolaou smear with manual screening 3 5-[address] [facility] Basophil percentageOrdered B y: Guilherme Butt on 02-06-2023 Bilirubin [Mass/Vol] 0.50 mg/dL 0.20-1.00 [facility] Comment on above: For patients on eltr ombopag therapy, use of Dimension [place] TBIL is not recommended. Cholesterol [Mass/Vol] 180 mg/dL <200 [facility] Comment on above: <200 mg/dL Desirable 200-240 mg/dL Borderline >240 mg/dL High Risk Protein [Mass/Vol] 6.3 g/dL 6.4-8.2 [facility] Triglyceride [Mass/Vol] 108 mg/dL <199 [facility] Comment on above: The drugs N-Acetylcy steine and Metamizole may falsely depress this assay.Serum Triglycerides Reference Interval Normal <150 mg/dL Borderline high 150 - 199 mg/dL High 200 - 499 mg/dL Very High > or = 500 mg/dL Direct bilirubinOrdered By: Guilherme Butt on 02-06-2023 Bilirubin.direct [Mass/Vol] 0.11 mg/dL 0.00-0.[address] [facility] Laboratory - Chemistry and C hemistry - challengeOrdered By: Guilherme Butt on 02-06-2023 ALP [Catalytic activity/Vol] 119 U/L 45-[address] [facility] ALT [Catalytic activity/Vol] 9 U/L 16-[address] [facility] Free T4 [Mass/Vol] 0.65 ng/dL 0.76-1.46 [facility] Globulin (S) [Mass/Vol] 2.9 g/dL 2.2-4.2 [facility] No Panel InformationOrdered By: Guilherme Butt on 02-06-2023 Thyroid Stimulating Hormone (TSH) 1.03 uIU/mL 0.358-3.[address] [facility] Serum or plasma albumin farshad urement (mass/volume)Ordered By: Guilherme Butt on 02-06-2023 Albumin [Mass/Vol] 3.4 g/dL 3.2-5.0 [facility] Serum or plasma cholesterol in HDL measurement (mass/volume)Ordered By: Guilherme Butt on 02-06-2023 Cholesterol in HDL [Mass/Vol] 50 mg/dL >[address] [facility] Comment on above: The drugs N-Acetylcy steine and Metamizole may falsely depress this assay. Reference Range HDL <40 mg/dL Low HDL Cholesterol HDL >or= 60 mg/dL High HDL Cholesterol Serum or plasma cholesterol in VLDL measurement (mass/volume)Ordered By: Guilherme Butt on 02-06-2023 Cholesterol in VLDL [Mass/Vol] 22 mg/dL 5-[address] [facility] Serum or plasma low density lipoprotein (LDL) cholesterol measurement (mass/volume)Ordered By: Guilherme Butt on 02-06-2023 Cholesterol in LDL [Mass/Vol] 108 mg/dL 0-[address] [facility] Thin prep Papanicolaou smear with manual screeningOrdered By: Guilherme Butt on 02-06-2023 Thin prep Papanicolaou smear with manual screening 11 U/L 15-[address] [facility] Whole blood hemoglobin A1c/t otal hemoglobin ratio (mass fraction)Ordered By: Guilherme Butt on 02-06-2023 HbA1c (Bld) [Mass fraction] 5.3 % 3.8-5.[address] [facility] Comment on above: Normal < 5.7 % Predi abetic 5.7 - 6.4 % Diabetic >or= 6.5 % Please note range changes. Basophil percentageOrdered B y: Guilherme Butt on 01-19-2023 Chloride [Moles/Vol] 107 mmol/L 98-107 [facility] Glucose [Mass/Vol] 93 mg/dL 74-106 [facility] Potassium [Moles/Vol] 4.8 mmol/L 3.5-5.1 [facility] Sodium [Moles/Vol] 141 mmol/L 136-145 [facility] WBC (Bld) [#/Vol] 4.5 10*3/uL 4.4-11.0 [facility] Blood erythrocytes count (nu mber/volume)Ordered By: Guilherme Butt on 01-19-2023 RBC (Bld) [#/Vol] 4.22 10*6/uL 4.6-6.2 [facility] Blood hemoglobin measurement (mass/volume)Ordered By: Guilherme Butt on 01-19-2023 Hemoglobin (Bld) [Mass/Vol] 13.4 g/dL 13.0-16.[address] [facility] Blood platelet mean volumeOr dered By: Guilherme Butt on 01-19-2023 Platelet mean volume (Bld) [Entitic vol] 9.4 fL 6.2-12.[address] [facility] Determination of erythrocyte mean corpuscular volume (MCV)Ordered By: Guilherme Butt on 01-19-2023 MCV (RBC) [Entitic vol] 99.1 fL 80-94 [facility] Hematocrit Auto (Bld) [Volum e fraction]Ordered By: Guilherme Butt on 01-19-2023 Hematocrit (Bld) [Volume fraction] 41.8 % 40-[address] [facility] Laboratory - Chemistry and C hemistry - challengeOrdered By: Guilherme Butt on 01-19-2023 CO2 [Moles/Vol] 32.0 mmol/L 21.0-32.[address] [facility] Urea nitrogen/Creatinine [Mass ratio] 25.5 mg/mg 10-[address] [facility] Laboratory - Hematology and Cell countsOrdered By: Guilherme Butt on 01-19-2023 Erythrocyte distribution width (RBC) [Entitic vol] 46.4 fL 35.1-43.[address] [facility] Erythrocyte distribution width (RBC) [Ratio] 12.8 % 11.6-14.[address] [facility] MCH (RBC) [Entitic mass] 31.8 pg 27.0-32.[address] [facility] MCHC Auto (RBC) [Mass/Vol]Or dered By: Guilherme Butt on 01-19-2023 MCHC (RBC) [Mass/Vol] 32.1 g/dL 32-36 [facility] No Panel InformationOrdered By: Guilherme Butt on 01-19-2023 Estimated GFR (MDRD) Amer 91 mL/min >[address] [facility] Comment on above: GFR Calc Estimated GFR (MDRD) Non-Af Amer 75 mL/min >[address] [facility] Comment on above: Non- GFR Calc Platelets bldOrdered By: Jamaal Butt on 01-19-2023 Platelets (Bld) [#/Vol] 180 10*3/uL 150-[address] [facility] Serum or plasma calcium farshad urement (mass/volume)Ordered By: Guilherme Butt on 01-19-2023 Calcium [Mass/Vol] 9.1 mg/dL 8.5-10.1 [facility] Serum or plasma creatinine m easurement (mass/volume)Ordered By: Guilherme Butt on 01-19-2023 Creatinine [Mass/Vol] 1.02 mg/dL 0.70-1.30 [facility] Comment on above: The validity of the calculated GFR & GFRAA in patients over 70 years has not been determined. Clinical correlation is essential. Serum or plasma urea nitroge n measurement (mass/volume)Ordered By: Guilherme Butt on 01-19-2023 Urea nitrogen [Mass/Vol] 26 mg/dL 7-[address] [facility] Thin prep Papanicolaou smear with manual screeningOrdered By: Guilherme Butt on 01-19-2023 Thin prep Papanicolaou smear with manual screening 2 5-[address] [facility] Basophil percentageOrdered B y: Guilherme Butt on 12-22-2022 Chloride [Moles/Vol] 106 mmol/L 98-107 [facility] Glucose [Mass/Vol] 87 mg/dL 74-106 [facility] Potassium [Moles/Vol] 4.5 mmol/L 3.5-5.1 [facility] Sodium [Moles/Vol] 140 mmol/L 136-145 [facility] WBC (Bld) [#/Vol] 4.6 10*3/uL 4.4-11.0 [facility] Blood erythrocytes count (nu mber/volume)Ordered By: Guilherme Butt on 12-22-2022 RBC (Bld) [#/Vol] 4.14 10*6/uL 4.6-6.2 [facility] Blood hemoglobin measurement (mass/volume)Ordered By: Guilherme Butt on 12-22-2022 Hemoglobin (Bld) [Mass/Vol] 13.4 g/dL 13.0-16.[address] [facility] Blood platelet mean volumeOr dered By: Guilherme Butt on 12-22-2022 Platelet mean volume (Bld) [Entitic vol] 9.0 fL 6.2-12.[address] [facility] Determination of erythrocyte mean corpuscular volume (MCV)Ordered By: Guilherme Butt on 12-22-2022 MCV (RBC) [Entitic vol] 97.3 fL 80-94 [facility] Hematocrit Auto (Bld) [Volum e fraction]Ordered By: Guilherme Butt on 12-22-2022 Hematocrit (Bld) [Volume fraction] 40.3 % 40-[address] [facility] Laboratory - Chemistry and C hemistry - challengeOrdered By: Guilherme Butt on 12-22-2022 CO2 [Moles/Vol] 33.0 mmol/L 21.0-32.[address] [facility] Urea nitrogen/Creatinine [Mass ratio] 26.2 mg/mg 10-[address] [facility] Laboratory - Hematology and Cell countsOrdered By: Guilherme Butt on 12-22-2022 Erythrocyte distribution width (RBC) [Entitic vol] 45.3 fL 35.1-43.[address] [facility] Erythrocyte distribution width (RBC) [Ratio] 12.8 % 11.6-14.[address] [facility] MCH (RBC) [Entitic mass] 32.4 pg 27.0-32.[address] [facility] MCHC Auto (RBC) [Mass/Vol]Or dered By: Guilherme Butt on 12-22-2022 MCHC (RBC) [Mass/Vol] 33.3 g/dL 32-36 [facility] No Panel InformationOrdered By: Guilherme Butt on 12-22-2022 Estimated GFR (MDRD) Amer 94 mL/min >[address] [facility] Comment on above: GFR Calc Estimated GFR (MDRD) Non-Af Amer 78 mL/min >[address] [facility] Comment on above: Non- GFR Calc Platelets bldOrdered By: Jamaal Butt on 12-22-2022 Platelets (Bld) [#/Vol] 179 10*3/uL 150-[address] [facility] Serum or plasma calcium farshad urement (mass/volume)Ordered By: Guilherme Butt on 12-22-2022 Calcium [Mass/Vol] 8.9 mg/dL 8.5-10.1 [facility] Serum or plasma creatinine m easurement (mass/volume)Ordered By: Guilherme Butt on 12-22-2022 Creatinine [Mass/Vol] 0.99 mg/dL 0.70-1.30 [facility] Comment on above: The validity of the calculated GFR & GFRAA in patients over 70 years has not been determined. Clinical correlation is essential. Serum or plasma urea nitroge n measurement (mass/volume)Ordered By: Guilherme Butt on 12-22-2022 Urea nitrogen [Mass/Vol] 26 mg/dL 7-[address] [facility] Thin prep Papanicolaou smear with manual screeningOrdered By: Guilherme Butt on 12-22-2022 Thin prep Papanicolaou smear with manual screening 1 5-[address] [facility] Basophil percentageOrdered B y: Guilherme Butt on 11-24-2022 Chloride [Moles/Vol] 109 mmol/L 98-107 [facility] Glucose [Mass/Vol] 132 mg/dL 74-106 [facility] Comment on above: Fasting Glucose resu lt greater than or equal to 126 mg/dL suggests DIABETES MELLITUS per A.D.A. criteria. Potassium [Moles/Vol] 4.0 mmol/L 3.5-5.1 [facility] Sodium [Moles/Vol] 140 mmol/L 136-145 [facility] WBC (Bld) [#/Vol] 4.6 10*3/uL 4.4-11.0 [facility] Blood erythrocytes count (nu mber/volume)Ordered By: Guilherme Butt on 11-24-2022 RBC (Bld) [#/Vol] 4.06 10*6/uL 4.6-6.2 [facility] Blood hemoglobin measurement (mass/volume)Ordered By: Guilherme Butt on 11-24-2022 Hemoglobin (Bld) [Mass/Vol] 13.0 g/dL 13.0-16.[address] [facility] Blood platelet mean volumeOr dered By: Guilherme Butt on 11-24-2022 Platelet mean volume (Bld) [Entitic vol] 9.3 fL 6.2-12.[address] [facility] Determination of erythrocyte mean corpuscular volume (MCV)Ordered By: Guilherme Butt on 11-24-2022 MCV (RBC) [Entitic vol] 96.3 fL 80-94 [facility] Hematocrit Auto (Bld) [Volum e fraction]Ordered By: Guilherme Butt on 11-24-2022 Hematocrit (Bld) [Volume fraction] 39.1 % 40-[address] [facility] Laboratory - Chemistry and C hemistry - challengeOrdered By: Guilherme Butt on 11-24-2022 CO2 [Moles/Vol] 26.0 mmol/L 21.0-32.[address] [facility] Urea nitrogen/Creatinine [Mass ratio] 34.3 mg/mg 10-[address] [facility] Laboratory - Hematology and Cell countsOrdered By: Guilherme Butt on 11-24-2022 Erythrocyte distribution width (RBC) [Entitic vol] 45.0 fL 35.1-43.[address] [facility] Erythrocyte distribution width (RBC) [Ratio] 12.7 % 11.6-14.[address] [facility] MCH (RBC) [Entitic mass] 32.0 pg 27.0-32.[address] [facility] MCHC Auto (RBC) [Mass/Vol]Or dered By: Guilherme Butt on 11-24-2022 MCHC (RBC) [Mass/Vol] 33.2 g/dL 32-36 [facility] No Panel InformationOrdered By: Guilherme Butt on 11-24-2022 Estimated GFR (MDRD) Amer 97 mL/min >[address] [facility] Comment on above: GFR Calc Estimated GFR (MDRD) Non-Af Amer 80 mL/min >[address] [facility] Comment on above: Non- GFR Calc Platelets bldOrdered By: Jamaal Butt on 11-24-2022 Platelets (Bld) [#/Vol] 188 10*3/uL 150-[address] [facility] Serum or plasma calcium farshad urement (mass/volume)Ordered By: Guilherme Butt on 11-24-2022 Calcium [Mass/Vol] 8.7 mg/dL 8.5-10.1 [facility] Serum or plasma creatinine m easurement (mass/volume)Ordered By: Guilherme Butt on 11-24-2022 Creatinine [Mass/Vol] 0.96 mg/dL 0.70-1.30 [facility] Comment on above: The validity of the calculated GFR & GFRAA in patients over 70 years has not been determined. Clinical correlation is essential. Serum or plasma urea nitroge n measurement (mass/volume)Ordered By: Guilherme Butt on 11-24-2022 Urea nitrogen [Mass/Vol] 33 mg/dL 7-[address] [facility] Thin prep Papanicolaou smear with manual screeningOrdered By: kieranatkinsondmitri Butt on 11-24-2022 Thin prep Papanicolaou smear with manual screening 5 5-[address] [facility] Basophil percentageOrdered B y: Cecy Gray on 10-20-2022 Chloride [Moles/Vol] 104 mmol/L 98-107 [facility] Glucose [Mass/Vol] 95 mg/dL 74-106 [facility] Potassium [Moles/Vol] 4.3 mmol/L 3.5-5.1 [facility] Sodium [Moles/Vol] 138 mmol/L 136-145 [facility] WBC (Bld) [#/Vol] 4.7 10*3/uL 4.4-11.0 [facility] Blood erythrocytes count (nu mber/volume)Ordered By: Cecy Gray on 10-20-2022 RBC (Bld) [#/Vol] 4.48 10*6/uL 4.6-6.2 [facility] Blood hemoglobin measurement (mass/volume)Ordered By: Cecy Gray on 10-20-2022 Hemoglobin (Bld) [Mass/Vol] 14.2 g/dL 13.0-16.[address] [facility] Blood platelet mean volumeOr dered By: Cecy Gray on 10-20-2022 Platelet mean volume (Bld) [Entitic vol] 9.1 fL 6.2-12.[address] [facility] Determination of erythrocyte mean corpuscular volume (MCV)Ordered By: Cecy Gray on 10-20-2022 MCV (RBC) [Entitic vol] 97.1 fL 80-94 [facility] Hematocrit Auto (Bld) [Volum e fraction]Ordered By: Cecy Gray on 10-20-2022 Hematocrit (Bld) [Volume fraction] 43.5 % 40-[address] [facility] Laboratory - Chemistry and C hemistry - challengeOrdered By: Cecy Gray on 10-20-2022 CO2 [Moles/Vol] 28.0 mmol/L 21.0-32.[address] [facility] Urea nitrogen/Creatinine [Mass ratio] 28.2 mg/mg 10-[address] [facility] Laboratory - Hematology and Cell countsOrdered By: Cecy Gray on 10-20-2022 Erythrocyte distribution width (RBC) [Entitic vol] 44.9 fL 35.1-43.[address] [facility] Erythrocyte distribution width (RBC) [Ratio] 12.5 % 11.6-14.[address] [facility] MCH (RBC) [Entitic mass] 31.7 pg 27.0-32.[address] [facility] MCHC Auto (RBC) [Mass/Vol]Or dered By: Cecy Gray on 10-20-2022 MCHC (RBC) [Mass/Vol] 32.6 g/dL 32-36 [facility] No Panel InformationOrdered By: Cecy Gray on 10-20-2022 Estimated GFR (MDRD) Amer 98 mL/min >[address] [facility] Comment on above: GFR Calc Estimated GFR (MDRD) Non-Af Amer 81 mL/min >[address] [facility] Comment on above: Non- GFR Calc Platelets bldOrdered By: Reinier Gray on 10-20-2022 Platelets (Bld) [#/Vol] 204 10*3/uL 150-[address] [facility] Serum or plasma calcium farshad urement (mass/volume)Ordered By: Cecy Gray on 10-20-2022 Calcium [Mass/Vol] 8.7 mg/dL 8.5-10.1 [facility] Serum or plasma creatinine m easurement (mass/volume)Ordered By: Cecy Gray on 10-20-2022 Creatinine [Mass/Vol] 0.96 mg/dL 0.70-1.30 [facility] Comment on above: The validity of the calculated GFR & GFRAA in patients over 70 years has not been determined. Clinical correlation is essential. Serum or plasma urea nitroge n measurement (mass/volume)Ordered By: Cecy Gray on 10-20-2022 Urea nitrogen [Mass/Vol] 27 mg/dL 7-[address] [facility] Thin prep Papanicolaou smear with manual screeningOrdered By: Cecy Gray on 10-20-2022 Thin prep Papanicolaou smear with manual screening 6 5-[address] [facility] Basophil percentageOrdered B y: Cecy Gray on 09-22-2022 Chloride [Moles/Vol] 106 mmol/L 98-107 [facility] Glucose [Mass/Vol] 86 mg/dL 74-106 [facility] Potassium [Moles/Vol] 4.4 mmol/L 3.5-5.1 [facility] Sodium [Moles/Vol] 141 mmol/L 136-145 [facility] WBC (Bld) [#/Vol] 5.1 10*3/uL 4.4-11.0 [facility] Blood erythrocytes count (nu mber/volume)Ordered By: Cecy Gray on 09-22-2022 RBC (Bld) [#/Vol] 4.21 10*6/uL 4.6-6.2 [facility] Blood hemoglobin measurement (mass/volume)Ordered By: Cecy Gray on 09-22-2022 Hemoglobin (Bld) [Mass/Vol] 13.4 g/dL 13.0-16.[address] [facility] Blood platelet mean volumeOr dered By: Cecy Gray on 09-22-2022 Platelet mean volume (Bld) [Entitic vol] 9.3 fL 6.2-12.[address] [facility] Determination of erythrocyte mean corpuscular volume (MCV)Ordered By: Cecy Gray on 09-22-2022 MCV (RBC) [Entitic vol] 97.4 fL 80-94 [facility] Hematocrit Auto (Bld) [Volum e fraction]Ordered By: Cecy Gray on 09-22-2022 Hematocrit (Bld) [Volume fraction] 41.0 % 40-[address] [facility] Laboratory - Chemistry and C hemistry - challengeOrdered By: Cecy Gray on 09-22-2022 CO2 [Moles/Vol] 31.0 mmol/L 21.0-32.[address] [facility] Urea nitrogen/Creatinine [Mass ratio] 27.7 mg/mg 10-[address] [facility] Laboratory - Hematology and Cell countsOrdered By: Cecy Gray on 09-22-2022 Erythrocyte distribution width (RBC) [Entitic vol] 43.7 fL 35.1-43.[address] [facility] Erythrocyte distribution width (RBC) [Ratio] 12.3 % 11.6-14.[address] [facility] MCH (RBC) [Entitic mass] 31.8 pg 27.0-32.[address] [facility] MCHC Auto (RBC) [Mass/Vol]Or dered By: Cecy Gray on 09-22-2022 MCHC (RBC) [Mass/Vol] 32.7 g/dL 32-36 [facility] No Panel InformationOrdered By: Cecy Gray on 09-22-2022 Estimated GFR (MDRD) Amer 105 mL/min >[address] [facility] Comment on above: GFR Calc Estimated GFR (MDRD) Non-Af Amer 87 mL/min >[address] [facility] Comment on above: Non- GFR Calc Platelets bldOrdered By: Reinier Gray on 09-22-2022 Platelets (Bld) [#/Vol] 187 10*3/uL 150-[address] [facility] Serum or plasma calcium farshad urement (mass/volume)Ordered By: Cecy Gray on 09-22-2022 Calcium [Mass/Vol] 8.8 mg/dL 8.5-10.1 [facility] Serum or plasma creatinine m easurement (mass/volume)Ordered By: Cecy Gray on 09-22-2022 Creatinine [Mass/Vol] 0.90 mg/dL 0.70-1.30 [facility] Comment on above: The validity of the calculated GFR & GFRAA in patients over 70 years has not been determined. Clinical correlation is essential. Serum or plasma urea nitroge n measurement (mass/volume)Ordered By: Cecy Gray on 09-22-2022 Urea nitrogen [Mass/Vol] 25 mg/dL 7-[address] [facility] Thin prep Papanicolaou smear with manual screeningOrdered By: Cecy Gray on 09-22-2022 Thin prep Papanicolaou smear with manual screening 4 5-[address] [facility] Basophil percentageOrdered B y: Guilherme Butt on 08-25-2022 Chloride [Moles/Vol] 106 mmol/L 98-107 [facility] Glucose [Mass/Vol] 90 mg/dL 74-106 [facility] Potassium [Moles/Vol] 4.3 mmol/L 3.5-5.1 [facility] Sodium [Moles/Vol] 139 mmol/L 136-145 [facility] WBC (Bld) [#/Vol] 4.4 10*3/uL 4.4-11.0 [facility] Blood erythrocytes count (nu mber/volume)Ordered By: Guilherme Butt on 08-25-2022 RBC (Bld) [#/Vol] 4.15 10*6/uL 4.6-6.2 [facility] Blood hemoglobin measurement (mass/volume)Ordered By: Guilherme Butt on 08-25-2022 Hemoglobin (Bld) [Mass/Vol] 13.2 g/dL 13.0-16.[address] [facility] Blood platelet mean volumeOr dered By: Guilherme Butt on 08-25-2022 Platelet mean volume (Bld) [Entitic vol] 9.3 fL 6.2-12.[address] [facility] Determination of erythrocyte mean corpuscular volume (MCV)Ordered By: Guilherme Butt on 08-25-2022 MCV (RBC) [Entitic vol] 97.6 fL 80-94 [facility] Hematocrit Auto (Bld) [Volum e fraction]Ordered By: Guilherme Butt on 08-25-2022 Hematocrit (Bld) [Volume fraction] 40.5 % 40-[address] [facility] Laboratory - Chemistry and C hemistry - challengeOrdered By: Guilherme Butt on 08-25-2022 CO2 [Moles/Vol] 29.0 mmol/L 21.0-32.[address] [facility] Cobalamin (Vitamin B12) [Mass/Vol] 239 pg/mL 211-[address] [facility] Urea nitrogen/Creatinine [Mass ratio] 25.6 mg/mg 10-[address] [facility] Laboratory - Hematology and Cell countsOrdered By: Guilherme Butt on 08-25-2022 Erythrocyte distribution width (RBC) [Entitic vol] 45.1 fL 35.1-43.[address] [facility] Erythrocyte distribution width (RBC) [Ratio] 12.5 % 11.6-14.[address] [facility] MCH (RBC) [Entitic mass] 31.8 pg 27.0-32.[address] [facility] MCHC Auto (RBC) [Mass/Vol]Or dered By: Guilherme Butt on 08-25-2022 MCHC (RBC) [Mass/Vol] 32.6 g/dL 32-36 [facility] No Panel InformationOrdered By: Guilherme Butt on 08-25-2022 Estimated GFR (MDRD) Amer 78 mL/min >[address] [facility] Comment on above: GFR Calc Estimated GFR (MDRD) Non-Af Amer 64 mL/min >[address] [facility] Comment on above: Non- GFR Calc Platelets bldOrdered By: Jamaal Butt on 08-25-2022 Platelets (Bld) [#/Vol] 176 10*3/uL 150-[address] [facility] Serum or plasma calcium farshad urement (mass/volume)Ordered By: Guilherme Butt on 08-25-2022 Calcium [Mass/Vol] 8.7 mg/dL 8.5-10.1 [facility] Serum or plasma creatinine m easurement (mass/volume)Ordered By: Guilherme Butt on 08-25-2022 Creatinine [Mass/Vol] 1.17 mg/dL 0.70-1.30 [facility] Comment on above: The validity of the calculated GFR & GFRAA in patients over 70 years has not been determined. Clinical correlation is essential. Serum or plasma urea nitroge n measurement (mass/volume)Ordered By: Guilherme Butt on 08-25-2022 Urea nitrogen [Mass/Vol] 30 mg/dL 7-[address] [facility] Thin prep Papanicolaou smear with manual screeningOrdered By: Guilherme Butt on 08-25-2022 Thin prep Papanicolaou smear with manual screening 4 5-[address] [facility] Absolute lymphocyte countOrd ered By: Guilherme Butt on 07-21-2022 Lymphocytes Auto (Unsp spec) [#/Vol] 1.11 10*3/uL 0.83-4.[address] [facility] Basophil percentageOrdered B y: Guilherme Butt on 07-21-2022 Basophils/100 WBC (Bld) 0.5 % 0-1 [facility] Chloride [Moles/Vol] 106 mmol/L 98-107 [facility] Eosinophils/100 WBC (Bld) 3.6 % 0-[address] [facility] Glucose [Mass/Vol] 95 mg/dL 74-106 [facility] Neutrophils (Bld) [#/Vol] 2.5 10*3/uL 2.0-7.[address] [facility] Neutrophils/100 WBC (Bld) 59.1 % 47-[address] [facility] Potassium [Moles/Vol] 4.2 mmol/L 3.5-5.1 [facility] Sodium [Moles/Vol] 142 mmol/L 136-145 [facility] WBC (Bld) [#/Vol] 4.2 10*3/uL 4.4-11.0 [facility] Blood erythrocytes count (nu mber/volume)Ordered By: Guilherme Butt on 07-21-2022 RBC (Bld) [#/Vol] 4.10 10*6/uL 4.6-6.2 [facility] Blood hemoglobin measurement (mass/volume)Ordered By: Guilherme Butt on 07-21-2022 Hemoglobin (Bld) [Mass/Vol] 13.4 g/dL 13.0-16.[address] [facility] Blood lymphocytes/100 leukoc ytesOrdered By: Guilherme Butt on 07-21-2022 Lymphocytes/100 WBC (Bld) 26.7 % 19-[address] [facility] Blood monocytes/100 leukocyt esOrdered By: Guilherme Butt on 07-21-2022 Monocytes/100 WBC (Bld) 9.6 % 0-10 [facility] Blood platelet mean volumeOr dered By: Guilherme Butt on 07-21-2022 Platelet mean volume (Bld) [Entitic vol] 9.3 fL 6.2-12.[address] [facility] Determination of erythrocyte mean corpuscular volume (MCV)Ordered By: Guilherme Butt on 07-21-2022 MCV (RBC) [Entitic vol] 95.1 fL 80-94 [facility] Hematocrit Auto (Bld) [Volum e fraction]Ordered By: Guilherme Butt on 07-21-2022 Hematocrit (Bld) [Volume fraction] 39.0 % 40-[address] [facility] Laboratory - Chemistry and C hemistry - challengeOrdered By: kieranatkinsondmitri Butt on 07-21-2022 CO2 [Moles/Vol] 28.0 mmol/L 21.0-32.[address] [facility] Urea nitrogen/Creatinine [Mass ratio] 30.0 mg/mg 10-[address] [facility] Laboratory - Hematology and Cell countsOrdered By: Guilherme Butt on 07-21-2022 Erythrocyte distribution width (RBC) [Entitic vol] 44.6 fL 35.1-43.[address] [facility] Erythrocyte distribution width (RBC) [Ratio] 12.8 % 11.6-14.[address] [facility] Immature granulocytes/100 WBC (Bld) 0.500 % 0.0-0.[address] [facility] Comment on above: IG% - Immature Granu locytes (promyelocytes, myelocytes and metamyelocytes) > 1% indicates that a LEFT SHIFT is Present. MCH (RBC) [Entitic mass] 32.7 pg 27.0-32.[address] [facility] Nucleated RBC/100 WBC (Bld) [Ratio] 0 % 0-[address] [facility] MCHC Auto (RBC) [Mass/Vol]Or dered By: Guilherme Butt on 07-21-2022 MCHC (RBC) [Mass/Vol] 34.4 g/dL 32-36 [facility] No Panel InformationOrdered By: Guilherme Butt on 07-21-2022 Estimated GFR (MDRD) Amer 101 mL/min >[address] [facility] Comment on above: GFR Calc Estimated GFR (MDRD) Non-Af Amer 84 mL/min >[address] [facility] Comment on above: Non- GFR Calc Platelets bldOrdered By: Jamaal Butt on 07-21-2022 Platelets (Bld) [#/Vol] 155 10*3/uL 150-[address] [facility] Serum or plasma calcium farshad urement (mass/volume)Ordered By: Guilherme Butt on 07-21-2022 Calcium [Mass/Vol] 8.7 mg/dL 8.5-10.1 [facility] Serum or plasma creatinine m easurement (mass/volume)Ordered By: Guilherme Butt on 07-21-2022 Creatinine [Mass/Vol] 0.93 mg/dL 0.70-1.30 [facility] Comment on above: The validity of the calculated GFR & GFRAA in patients over 70 years has not been determined. Clinical correlation is essential. Serum or plasma urea nitroge n measurement (mass/volume)Ordered By: Guilherme Butt on 07-21-2022 Urea nitrogen [Mass/Vol] 28 mg/dL 7-[address] [facility] Thin prep Papanicolaou smear with manual screeningOrdered By: Guilherme Butt on 07-21-2022 Thin prep Papanicolaou smear with manual screening 8 5-[address] [facility] Basophil percentageOrdered B y: Howard [facility] on 06-23-2022 Chloride [Moles/Vol] 105 mmol/L 98-107 [facility] Glucose [Mass/Vol] 100 mg/dL 74-106 [facility] Comment on above: Fasting Glucose resu lt from 100 to 125 mg/dL suggests IMPAIRED HOMEOSTASIS per A.D.A. criteria. Potassium [Moles/Vol] 4.5 mmol/L 3.5-5.1 [facility] Sodium [Moles/Vol] 142 mmol/L 136-145 [facility] WBC (Bld) [#/Vol] 6.2 10*3/uL 4.4-11.0 [facility] Blood erythrocytes count (nu mber/volume)Ordered By: Howard Living on 06-23-2022 RBC (Bld) [#/Vol] 4.28 10*6/uL 4.6-6.2 [facility] Blood hemoglobin measurement (mass/volume)Ordered By: [facility] on 06-23-2022 Hemoglobin (Bld) [Mass/Vol] 13.6 g/dL 13.0-16.[address] [facility] Blood platelet mean volumeOr dered By: [facility] on 06-23-2022 Platelet mean volume (Bld) [Entitic vol] 9.3 fL 6.2-12.[address] [facility] Determination of erythrocyte mean corpuscular volume (MCV)Ordered By: [facility] on 06-23-2022 MCV (RBC) [Entitic vol] 97.9 fL 80-94 [facility] Hematocrit Auto (Bld) [Volum e fraction]Ordered By: [facility] on 06-23-2022 Hematocrit (Bld) [Volume fraction] 41.9 % 40-[address] [facility] Laboratory - Chemistry and C hemistry - challengeOrdered By: [facility] on 06-23-2022 CO2 [Moles/Vol] 32.0 mmol/L 21.0-32.[address] [facility] Urea nitrogen/Creatinine [Mass ratio] 33.0 mg/mg 10-[address] [facility] Laboratory - Hematology and Cell countsOrdered By: [facility] on 06-23-2022 Erythrocyte distribution width (RBC) [Entitic vol] 45.8 fL 35.1-43.[address] [facility] Erythrocyte distribution width (RBC) [Ratio] 12.9 % 11.6-14.[address] [facility] MCH (RBC) [Entitic mass] 31.8 pg 27.0-32.[address] [facility] MCHC Auto (RBC) [Mass/Vol]Or dered By: [facility] on 06-23-2022 MCHC (RBC) [Mass/Vol] 32.5 g/dL 32-36 [facility] No Panel InformationOrdered By: [facility] on 06-23-2022 Estimated GFR (MDRD) Amer 84 mL/min >[address] [facility] Comment on above: GFR Calc Estimated GFR (MDRD) Non-Af Amer 70 mL/min >[address] [facility] Comment on above: Non- GFR Calc Platelets bldOrdered By: Sander parkinson Living on 06-23-2022 Platelets (Bld) [#/Vol] 183 10*3/uL 150-[address] [facility] Serum or plasma calcium farshad urement (mass/volume)Ordered By: [facility] on 06-23-2022 Calcium [Mass/Vol] 9.2 mg/dL 8.5-10.1 [facility] Serum or plasma creatinine m easurement (mass/volume)Ordered By: [facility] on 06-23-2022 Creatinine [Mass/Vol] 1.09 mg/dL 0.70-1.30 [facility] Comment on above: The validity of the calculated GFR & GFRAA in patients over 70 years has not been determined. Clinical correlation is essential. Serum or plasma urea nitroge n measurement (mass/volume)Ordered By: [facility] on 06-23-2022 Urea nitrogen [Mass/Vol] 36 mg/dL 7-[address] [facility] Thin prep Papanicolaou smear with manual screeningOrdered By: [facility] on 06-23-2022 Thin prep Papanicolaou smear with manual screening 5 5-[address] [facility] Basophil percentageOrdered B y: Maikel Mosquera on 05-26-2022 Chloride [Moles/Vol] 106 mmol/L 98-107 [facility] Glucose [Mass/Vol] 100 mg/dL 74-106 [facility] Comment on above: Fasting Glucose resu lt from 100 to 125 mg/dL suggests IMPAIRED HOMEOSTASIS per A.D.A. criteria. Potassium [Moles/Vol] 4.8 mmol/L 3.5-5.1 [facility] Sodium [Moles/Vol] 141 mmol/L 136-145 [facility] WBC (Bld) [#/Vol] 5.1 10*3/uL 4.4-11.0 [facility] Blood erythrocytes count (nu mber/volume)Ordered By: Maikel Mosquera on 05-26-2022 RBC (Bld) [#/Vol] 4.34 10*6/uL 4.6-6.2 [facility] Blood hemoglobin measurement (mass/volume)Ordered By: Maikel Mosquera on 05-26-2022 Hemoglobin (Bld) [Mass/Vol] 13.8 g/dL 13.0-16.[address] [facility] Blood platelet mean volumeOr dered By: Maikel Mosquera on 05-26-2022 Platelet mean volume (Bld) [Entitic vol] 9.5 fL 6.2-12.[address] [facility] Determination of erythrocyte mean corpuscular volume (MCV)Ordered By: Maikel Mosquera on 05-26-2022 MCV (RBC) [Entitic vol] 96.3 fL 80-94 [facility] Hematocrit Auto (Bld) [Volum e fraction]Ordered By: Maikel Mosquera on 05-26-2022 Hematocrit (Bld) [Volume fraction] 41.8 % 40-[address] [facility] Laboratory - Chemistry and C hemistry - challengeOrdered By: Maikel Mosquera on 05-26-2022 CO2 [Moles/Vol] 30.0 mmol/L 21.0-32.[address] [facility] Urea nitrogen/Creatinine [Mass ratio] 33.7 mg/mg 10-[address] [facility] Laboratory - Hematology and Cell countsOrdered By: Maikel Mosquera on 05-26-2022 Erythrocyte distribution width (RBC) [Entitic vol] 44.0 fL 35.1-43.[address] [facility] Erythrocyte distribution width (RBC) [Ratio] 12.5 % 11.6-14.[address] [facility] MCH (RBC) [Entitic mass] 31.8 pg 27.0-32.[address] [facility] MCHC Auto (RBC) [Mass/Vol]Or dered By: Maikel Mosquera on 05-26-2022 MCHC (RBC) [Mass/Vol] 33.0 g/dL 32-36 [facility] No Panel InformationOrdered By: Maikel Mosquera on 05-26-2022 Estimated GFR (MDRD) Amer 89 mL/min >[address] [facility] Comment on above: GFR Calc Estimated GFR (MDRD) Non-Af Amer 74 mL/min >[address] [facility] Comment on above: Non- GFR Calc Platelets bldOrdered By: Chance Mosquera on 05-26-2022 Platelets (Bld) [#/Vol] 185 10*3/uL 150-[address] [facility] Serum or plasma calcium farshad urement (mass/volume)Ordered By: Maikel Mosquera on 05-26-2022 Calcium [Mass/Vol] 9.0 mg/dL 8.5-10.1 [facility] Serum or plasma creatinine m easurement (mass/volume)Ordered By: Maikel Mosquera on 05-26-2022 Creatinine [Mass/Vol] 1.04 mg/dL 0.70-1.30 [facility] Comment on above: The validity of the calculated GFR & GFRAA in patients over 70 years has not been determined. Clinical correlation is essential. Serum or plasma urea nitroge n measurement (mass/volume)Ordered By: Maikel Mosquera on 05-26-2022 Urea nitrogen [Mass/Vol] 35 mg/dL 7-[address] [facility] Thin prep Papanicolaou smear with manual screeningOrdered By: Maikel Mosquera on 05-26-2022 Thin prep Papanicolaou smear with manual screening 5 5-[address] [facility] Basophil percentageOrdered B y: Maikel Mosquera on 04-21-2022 Chloride [Moles/Vol] 108 mmol/L 98-107 [facility] Glucose [Mass/Vol] 104 mg/dL 74-106 [facility] Comment on above: Fasting Glucose resu lt from 100 to 125 mg/dL suggests IMPAIRED HOMEOSTASIS per A.D.A. criteria. Potassium [Moles/Vol] 4.3 mmol/L 3.5-5.1 [facility] Sodium [Moles/Vol] 142 mmol/L 136-145 [facility] WBC (Bld) [#/Vol] 4.4 10*3/uL 4.4-11.0 [facility] Blood erythrocytes count (nu mber/volume)Ordered By: Maikel Mosquera on 04-21-2022 RBC (Bld) [#/Vol] 4.18 10*6/uL 4.6-6.2 [facility] Blood hemoglobin measurement (mass/volume)Ordered By: Maikel Mosquera on 04-21-2022 Hemoglobin (Bld) [Mass/Vol] 13.2 g/dL 13.0-16.[address] [facility] Blood platelet mean volumeOr dered By: Maikel Mosquera on 04-21-2022 Platelet mean volume (Bld) [Entitic vol] 9.6 fL 6.2-12.[address] [facility] Determination of erythrocyte mean corpuscular volume (MCV)Ordered By: Maikel Mosquera on 04-21-2022 MCV (RBC) [Entitic vol] 97.1 fL 80-94 [facility] Hematocrit Auto (Bld) [Volum e fraction]Ordered By: Maikel Mosquera on 04-21-2022 Hematocrit (Bld) [Volume fraction] 40.6 % 40-[address] [facility] Laboratory - Chemistry and C hemistry - challengeOrdered By: Maikel Mosquera on 04-21-2022 CO2 [Moles/Vol] 30.0 mmol/L 21.0-32.[address] [facility] Urea nitrogen/Creatinine [Mass ratio] 33.0 mg/mg 10-[address] [facility] Laboratory - Hematology and Cell countsOrdered By: Maikel Mosquera on 04-21-2022 Erythrocyte distribution width (RBC) [Entitic vol] 46.2 fL 35.1-43.[address] [facility] Erythrocyte distribution width (RBC) [Ratio] 12.9 % 11.6-14.[address] [facility] MCH (RBC) [Entitic mass] 31.6 pg 27.0-32.[address] [facility] MCHC Auto (RBC) [Mass/Vol]Or dered By: Maikel Mosquera on 04-21-2022 MCHC (RBC) [Mass/Vol] 32.5 g/dL 32-36 [facility] No Panel InformationOrdered By: Maikel Mosquera on 04-21-2022 Estimated GFR (MDRD) Amer 90 mL/min >[address] [facility] Comment on above: GFR Calc Estimated GFR (MDRD) Non-Af Amer 75 mL/min >[address] [facility] Comment on above: Non- GFR Calc Platelets bldOrdered By: Chance Mosquera on 04-21-2022 Platelets (Bld) [#/Vol] 177 10*3/uL 150-[address] [facility] Serum or plasma calcium farshad urement (mass/volume)Ordered By: Maikel Mosquera on 04-21-2022 Calcium [Mass/Vol] 9.1 mg/dL 8.5-10.1 [facility] Serum or plasma creatinine m easurement (mass/volume)Ordered By: Maikel Mosquera on 04-21-2022 Creatinine [Mass/Vol] 1.03 mg/dL 0.70-1.30 [facility] Comment on above: The validity of the calculated GFR & GFRAA in patients over 70 years has not been determined. Clinical correlation is essential. Serum or plasma urea nitroge n measurement (mass/volume)Ordered By: Maikel Mosquera on 04-21-2022 Urea nitrogen [Mass/Vol] 34 mg/dL 7-[address] [facility] Thin prep Papanicolaou smear with manual screeningOrdered By: Maikel Mosquera on 04-21-2022 Thin prep Papanicolaou smear with manual screening 4 5-[address] [facility] Absolute lymphocyte countOrd ered By: Dr. Sanchez on 04-03-2022 Lymphocytes Auto (Unsp spec) [#/Vol] 1.15 10*3/uL 0.83-4.[address] [facility] Basophil percentageOrdered B y: Dr. Sanchez on 04-03-2022 Basophils/100 WBC (Bld) 0.4 % 0-1 [facility] Chloride [Moles/Vol] 106 mmol/L 98-107 [facility] Eosinophils/100 WBC (Bld) 3.3 % 0-[address] [facility] Glucose [Mass/Vol] 140 mg/dL 74-106 [facility] Comment on above: Fasting Glucose resu lt greater than or equal to 126 mg/dL suggests DIABETES MELLITUS per A.D.A. criteria. Neutrophils (Bld) [#/Vol] 2.9 10*3/uL 2.0-7.[address] [facility] Neutrophils/100 WBC (Bld) 63.1 % 47-[address] [facility] Potassium [Moles/Vol] 4.2 mmol/L 3.5-5.1 [facility] Sodium [Moles/Vol] 142 mmol/L 136-145 [facility] WBC (Bld) [#/Vol] 4.6 10*3/uL 4.4-11.0 [facility] Blood erythrocytes count (nu mber/volume)Ordered By: Dr. Sanchez on 04-03-2022 RBC (Bld) [#/Vol] 4.45 10*6/uL 4.6-6.2 [facility] Blood hemoglobin measurement (mass/volume)Ordered By: Dr. Sanchez on 04-03-2022 Hemoglobin (Bld) [Mass/Vol] 14.1 g/dL 13.0-16.[address] [facility] Blood lymphocytes/100 leukoc ytesOrdered By: Dr. Sanchez on 04-03-2022 Lymphocytes/100 WBC (Bld) 25.3 % 19-[address] [facility] Blood monocytes/100 leukocyt esOrdered By: Dr. Sanchez on 04-03-2022 Monocytes/100 WBC (Bld) 7.7 % 0-10 [facility] Blood platelet mean volumeOr dered By: Dr. Sanchez on 04-03-2022 Platelet mean volume (Bld) [Entitic vol] 9.3 fL 6.2-12.[address] [facility] Determination of erythrocyte mean corpuscular volume (MCV)Ordered By: Dr. Sanchez on 04-03-2022 MCV (RBC) [Entitic vol] 95.5 fL 80-94 [facility] Hematocrit Auto (Bld) [Volum e fraction]Ordered By: Dr. Sanchez on 04-03-2022 Hematocrit (Bld) [Volume fraction] 42.5 % 40-[address] [facility] Laboratory - Chemistry and C hemistry - challengeOrdered By: Dr. Sanchez on 04-03-2022 CO2 [Moles/Vol] 31.0 mmol/L 21.0-32.[address] [facility] Urea nitrogen/Creatinine [Mass ratio] 30.7 mg/mg 10-[address] [facility] Laboratory - Hematology and Cell countsOrdered By: Dr. Sanchez on 04-03-2022 Erythrocyte distribution width (RBC) [Entitic vol] 45.9 fL 35.1-43.[address] [facility] Erythrocyte distribution width (RBC) [Ratio] 12.9 % 11.6-14.[address] [facility] Immature granulocytes/100 WBC (Bld) 0.200 % 0.0-0.[address] [facility] Comment on above: IG% - Immature Granu locytes (promyelocytes, myelocytes and metamyelocytes) > 1% indicates that a LEFT SHIFT is Present. MCH (RBC) [Entitic mass] 31.7 pg 27.0-32.[address] [facility] Nucleated RBC/100 WBC (Bld) [Ratio] 0 % 0-[address] [facility] MCHC Auto (RBC) [Mass/Vol]Or dered By: Dr. Sanchez on 04-03-2022 MCHC (RBC) [Mass/Vol] 33.2 g/dL 32-36 [facility] No Panel InformationOrdered By: Dr. Sanchez on 04-03-2022 Troponin I High Sensitivity 7 pg/mL 3.0-78.[address] [facility] Comment on above: Please Note: [place] t Units and Gender Specific Reference Ranges. For more information see Policy Stat Procedure [place] High Sensitivity Troponin (TNIH) and attachments. Estimated Creatinine Clearance Calc 70.39 ml/min [facility] Estimated GFR (MDRD) Amer 96 mL/min >[address] [facility] Comment on above: GFR Calc Estimated GFR (MDRD) Non-Af Amer 79 mL/min >[address] [facility] Comment on above: Non- GFR Calc Platelets bldOrdered By: Dr. Sanchez on 04-03-2022 Platelets (Bld) [#/Vol] 173 10*3/uL 150-[address] [facility] Serum or plasma calcium farshad urement (mass/volume)Ordered By: Dr. Sanchez on 04-03-2022 Calcium [Mass/Vol] 9.1 mg/dL 8.5-10.1 [facility] Serum or plasma creatinine m easurement (mass/volume)Ordered By: Dr. Sanchez on 04-03-2022 Creatinine [Mass/Vol] 0.98 mg/dL 0.70-1.30 [facility] Comment on above: The validity of the calculated GFR & GFRAA in patients over 70 years has not been determined. Clinical correlation is essential. Serum or plasma urea nitroge n measurement (mass/volume)Ordered By: Dr. Sanchez on 04-03-2022 Urea nitrogen [Mass/Vol] 30 mg/dL 7-[address] [facility] Thin prep Papanicolaou smear with manual screeningOrdered By: Dr. Sanchez on 04-03-2022 Thin prep Papanicolaou smear with manual screening 5 5-[address] [facility] Basophil percentageOrdered B y: Maikel Mosquera on 03-24-2022 Chloride [Moles/Vol] 105 mmol/L 98-107 [facility] Glucose [Mass/Vol] 85 mg/dL 74-106 [facility] Potassium [Moles/Vol] 4.7 mmol/L 3.5-5.1 [facility] Sodium [Moles/Vol] 140 mmol/L 136-145 [facility] WBC (Bld) [#/Vol] 4.9 10*3/uL 4.4-11.0 [facility] Blood erythrocytes count (nu mber/volume)Ordered By: Maikel Mosquera on 03-24-2022 RBC (Bld) [#/Vol] 4.14 10*6/uL 4.6-6.2 [facility] Blood hemoglobin measurement (mass/volume)Ordered By: Maikel Mosquera on 03-24-2022 Hemoglobin (Bld) [Mass/Vol] 13.0 g/dL 13.0-16.[address] [facility] Blood platelet mean volumeOr dered By: Maikel Mosquera on 03-24-2022 Platelet mean volume (Bld) [Entitic vol] 9.5 fL 6.2-12.[address] [facility] Determination of erythrocyte mean corpuscular volume (MCV)Ordered By: Maikel Mosquera on 03-24-2022 MCV (RBC) [Entitic vol] 94.9 fL 80-94 [facility] Hematocrit Auto (Bld) [Volum e fraction]Ordered By: Maikel Mosquera on 03-24-2022 Hematocrit (Bld) [Volume fraction] 39.3 % 40-[address] [facility] Laboratory - Chemistry and C hemistry - challengeOrdered By: Maikel Mosquera on 03-24-2022 CO2 [Moles/Vol] 30.0 mmol/L 21.0-32.[address] [facility] Urea nitrogen/Creatinine [Mass ratio] 29.8 mg/mg 10-[address] [facility] Laboratory - Hematology and Cell countsOrdered By: Maikel Mosquera on 03-24-2022 Erythrocyte distribution width (RBC) [Entitic vol] 45.6 fL 35.1-43.[address] [facility] Erythrocyte distribution width (RBC) [Ratio] 13.1 % 11.6-14.[address] [facility] MCH (RBC) [Entitic mass] 31.4 pg 27.0-32.[address] [facility] MCHC Auto (RBC) [Mass/Vol]Or dered By: Maikel Mosquera on 03-24-2022 MCHC (RBC) [Mass/Vol] 33.1 g/dL 32-36 [facility] No Panel InformationOrdered By: Maikel Mosquera on 03-24-2022 Estimated GFR (MDRD) Amer 89 mL/min >[address] [facility] Comment on above: GFR Calc Estimated GFR (MDRD) Non-Af Amer 74 mL/min >[address] [facility] Comment on above: Non- GFR Calc Platelets bldOrdered By: Chance Mosquera on 03-24-2022 Platelets (Bld) [#/Vol] 169 10*3/uL 150-[address] [facility] Serum or plasma calcium farshad urement (mass/volume)Ordered By: Maikel Mosquera on 03-24-2022 Calcium [Mass/Vol] 8.8 mg/dL 8.5-10.1 [facility] Serum or plasma creatinine m easurement (mass/volume)Ordered By: Maikel Mosquera on 03-24-2022 Creatinine [Mass/Vol] 1.04 mg/dL 0.70-1.30 [facility] Comment on above: The validity of the calculated GFR & GFRAA in patients over 70 years has not been determined. Clinical correlation is essential. Serum or plasma urea nitroge n measurement (mass/volume)Ordered By: Maikel Mosquera on 03-24-2022 Urea nitrogen [Mass/Vol] 31 mg/dL 7-[address] [facility] Thin prep Papanicolaou smear with manual screeningOrdered By: Maikel Mosquera on 03-24-2022 Thin prep Papanicolaou smear with manual screening 5 5-[address] [facility] Basophil percentageOrdered B y: Maikel Mosquera on 02-24-2022 Chloride [Moles/Vol] 107 mmol/L 98-107 [facility] Glucose [Mass/Vol] 87 mg/dL 74-106 [facility] Potassium [Moles/Vol] 4.8 mmol/L 3.5-5.1 [facility] Sodium [Moles/Vol] 141 mmol/L 136-145 [facility] WBC (Bld) [#/Vol] 5.2 10*3/uL 4.4-11.0 [facility] Blood erythrocytes count (nu mber/volume)Ordered By: Maikel Mosquera on 02-24-2022 RBC (Bld) [#/Vol] 4.39 10*6/uL 4.6-6.2 [facility] Blood hemoglobin measurement (mass/volume)Ordered By: Maikel Mosquera on 02-24-2022 Hemoglobin (Bld) [Mass/Vol] 14.3 g/dL 13.0-16.[address] [facility] Blood platelet mean volumeOr dered By: Maikel Mosquera on 02-24-2022 Platelet mean volume (Bld) [Entitic vol] 9.2 fL 6.2-12.[address] [facility] Determination of erythrocyte mean corpuscular volume (MCV)Ordered By: Maikel Mosquera on 02-24-2022 MCV (RBC) [Entitic vol] 95.4 fL 80-94 [facility] Hematocrit Auto (Bld) [Volum e fraction]Ordered By: Maikel Mosquera on 02-24-2022 Hematocrit (Bld) [Volume fraction] 41.9 % 40-[address] [facility] Laboratory - Chemistry and C hemistry - challengeOrdered By: Maikel Mosquera on 02-24-2022 CO2 [Moles/Vol] 30.0 mmol/L 21.0-32.[address] [facility] Urea nitrogen/Creatinine [Mass ratio] 27.5 mg/mg 10-[address] [facility] Laboratory - Hematology and Cell countsOrdered By: Maikel Mosquera on 02-24-2022 Erythrocyte distribution width (RBC) [Entitic vol] 44.2 fL 35.1-43.[address] [facility] Erythrocyte distribution width (RBC) [Ratio] 12.6 % 11.6-14.[address] [facility] MCH (RBC) [Entitic mass] 32.6 pg 27.0-32.[address] [facility] MCHC Auto (RBC) [Mass/Vol]Or dered By: Maikel Mosquera on 02-24-2022 MCHC (RBC) [Mass/Vol] 34.1 g/dL 32-36 [facility] No Panel InformationOrdered By: Maikel Mosquera on 02-24-2022 Estimated GFR (MDRD) Amer 91 mL/min >[address] [facility] Comment on above: GFR Calc Estimated GFR (MDRD) Non-Af Amer 75 mL/min >[address] [facility] Comment on above: Non- GFR Calc Platelets bldOrdered By: Chance Mosquera on 02-24-2022 Platelets (Bld) [#/Vol] 162 10*3/uL 150-[address] [facility] Serum or plasma calcium farshad urement (mass/volume)Ordered By: Maikel Mosquera on 02-24-2022 Calcium [Mass/Vol] 9.1 mg/dL 8.5-10.1 [facility] Serum or plasma creatinine m easurement (mass/volume)Ordered By: Maikel Mosquera on 02-24-2022 Creatinine [Mass/Vol] 1.02 mg/dL 0.70-1.30 [facility] Comment on above: The validity of the calculated GFR & GFRAA in patients over 70 years has not been determined. Clinical correlation is essential. Serum or plasma urea nitroge n measurement (mass/volume)Ordered By: Maikel Mosquera on 02-24-2022 Urea nitrogen [Mass/Vol] 28 mg/dL 7-[address] [facility] Thin prep Papanicolaou smear with manual screeningOrdered By: Maikel Mosquera on 02-24-2022 Thin prep Papanicolaou smear with manual screening 4 5-[address] [facility] Basophil percentageon 2021 Bilirubin [Mass/Vol] 0.50 mg/dL 0.20-1.00 [facility] Work Phone: Comment on above: For patients on eltr ombopag therapy, use of Dimension [place] TBIL is not recommended. Cholesterol [Mass/Vol] 184 mg/dL <200 [facility] Work Phone: Comment on above: <200 mg/dL Desirable 200-240 mg/dL Borderline >240 mg/dL High Risk Protein [Mass/Vol] 6.3 g/dL 6.4-8.2 [facility] Work Phone: Triglyceride [Mass/Vol] 103 mg/dL <199 [facility] Work Phone: Comment on above: The drugs N-Acetylcy steine and Metamizole may falsely depress this assay.Serum Triglycerides Reference Interval Normal <150 mg/dL Borderline high 150 - 199 mg/dL High 200 - 499 mg/dL Very High > or = 500 mg/dL Direct bilirubinon Bilirubin.direct [Mass/Vol] 0.12 mg/dL 0.00-0.[address] [facility] Work Phone: Laboratory - Chemistry and C hemistry - challengeon 02-07-2022 ALP [Catalytic activity/Vol] 118 U/L 45-[address] [facility] Work Phone: ALT [Catalytic activity/Vol] 8 U/L 16-[address] [facility] Work Phone: Free T4 [Mass/Vol] 0.87 ng/dL 0.76-1.46 [facility] Work Phone: Globulin (S) [Mass/Vol] 3.0 g/dL 2.2-4.2 [facility] Work Phone: No Panel Informationon 02-07 Thyroid Stimulating Hormone (TSH) 0.81 uIU/mL 0.358-3.[address] [facility] Work Phone: Serum or plasma albumin farshad urement (mass/volume)on 02-07-2022 Albumin [Mass/Vol] 3.3 g/dL 3.2-5.0 [facility] Work Phone: Serum or plasma cholesterol in HDL measurement (mass/volume)on 02-07-2022 Cholesterol in HDL [Mass/Vol] 44 mg/dL >[address] [facility] Work Phone: Comment on above: The drugs N-Acetylcy steine and Metamizole may falsely depress this assay. Reference Range HDL <40 mg/dL Low HDL Cholesterol HDL >or= 60 mg/dL High HDL Cholesterol Serum or plasma cholesterol in VLDL measurement (mass/volume)on 02-07-2022 Cholesterol in VLDL [Mass/Vol] 21 mg/dL 5-[address] [facility] Work Phone: Serum or plasma low density lipoprotein (LDL) cholesterol measurement (mass/volume)on 02-07-2022 Cholesterol in LDL [Mass/Vol] 119 mg/dL 0-[address] [facility] Work Phone: Thin prep Papanicolaou smear with manual screeningon 02-07-2022 Thin prep Papanicolaou smear with manual screening 12 U/L 15-[address] [facility] Work Phone: Whole blood hemoglobin A1c/t otal hemoglobin ratio (mass fraction)on 02-07-2022 HbA1c (Bld) [Mass fraction] 5.6 % 3.8-5.[address] [facility] Work Phone: Comment on above: Normal < 5.7 % Predi abetic 5.7 - 6.4 % Diabetic >or= 6.5 % Please note range changes. Basophil percentageon 2021 Chloride [Moles/Vol] 104 mmol/L 98-107 [facility] Work [facility]: Glucose [Mass/Vol] 87 mg/dL 74-106 [facility] Work Phone: Potassium [Moles/Vol] 4.3 mmol/L 3.5-5.1 [facility] Work Phone: Sodium [Moles/Vol] 140 mmol/L 136-145 [facility] Work Phone: WBC (Bld) [#/Vol] 4.6 10*3/uL 4.4-11.0 [facility] Work Phone: Blood erythrocytes count (nu mber/volume)on 01-20-2022 RBC (Bld) [#/Vol] 4.17 10*6/uL 4.6-6.2 [facility] Work Phone: Blood hemoglobin measurement (mass/volume)on 01-20-2022 Hemoglobin (Bld) [Mass/Vol] 13.2 g/dL 13.0-16.[address] [facility] Work Phone: Blood platelet mean volumeon 01-20-2022 Platelet mean volume (Bld) [Entitic vol] 9.2 fL 6.2-12.[address] [facility] Work Phone: Determination of erythrocyte mean corpuscular volume (MCV)on 01-20-2022 MCV (RBC) [Entitic vol] 93.0 fL 80-94 [facility] Work Phone: Hematocrit Auto (Bld) [Volum e fraction]on 01-20-2022 Hematocrit (Bld) [Volume fraction] 38.8 % 40-[address] [facility] Work Phone: Laboratory - Chemistry and C hemistry - challengeon 01-20-2022 CO2 [Moles/Vol] 29.0 mmol/L 21.0-32.[address] [facility] Work Phone: Urea nitrogen/Creatinine [Mass ratio] 28.6 mg/mg 10-[address] [facility] Work Phone: Laboratory - Hematology and Cell countson 01-20-2022 Erythrocyte distribution width (RBC) [Entitic vol] 42.7 fL 35.1-43.[address] [facility] Work Phone: Erythrocyte distribution width (RBC) [Ratio] 12.6 % 11.6-14.[address] [facility] Work Phone: MCH (RBC) [Entitic mass] 31.7 pg 27.0-32.[address] [facility] Work Phone: MCHC Auto (RBC) [Mass/Vol]on 01-20-2022 MCHC (RBC) [Mass/Vol] 34.0 g/dL 32-36 [facility] Work Phone: No Panel Informationon 01-20 Estimated GFR (MDRD) Amer 100 mL/min >[address] [facility] Work Phone: Comment on above: GFR Calc Estimated GFR (MDRD) Non-Af Amer 82 mL/min >[address] [facility] Work Phone: Comment on above: Non- GFR Calc Platelets bldon 01-20-2022 Platelets (Bld) [#/Vol] 178 10*3/uL 150-[address] [facility] Work Phone: Serum or plasma calcium farshad urement (mass/volume)on 01-20-2022 Calcium [Mass/Vol] 9.0 mg/dL 8.5-10.1 [facility] Work Phone: Serum or plasma creatinine m easurement (mass/volume)on 01-20-2022 Creatinine [Mass/Vol] 0.94 mg/dL 0.70-1.30 [facility] Work Phone: Comment on above: The validity of the calculated GFR & GFRAA in patients over 70 years has not been determined. Clinical correlation is essential. Serum or plasma urea nitroge n measurement (mass/volume)on 01-20-2022 Urea nitrogen [Mass/Vol] 27 mg/dL 7-[address] [facility] Work Phone: Thin prep Papanicolaou smear with manual screeningon 01-20-2022 Thin prep Papanicolaou smear with manual screening 7 5-[address] [facility] Work Phone: Basophil percentageon 2021 Chloride [Moles/Vol] 105 mmol/L 98-107 [facility] Work Phone: Glucose [Mass/Vol] 89 mg/dL 74-106 [facility] Work Phone: Potassium [Moles/Vol] 4.2 mmol/L 3.5-5.1 [facility] Work Phone: Sodium [Moles/Vol] 138 mmol/L 136-145 [facility] Work Phone: WBC (Bld) [#/Vol] 4.2 10*3/uL 4.4-11.0 [facility] Work Phone: Blood erythrocytes count (nu mber/volume)on 12-23-2021 RBC (Bld) [#/Vol] 4.15 10*6/uL 4.6-6.2 [facility] Work Phone: Blood hemoglobin measurement (mass/volume)on 12-23-2021 Hemoglobin (Bld) [Mass/Vol] 13.5 g/dL 13.0-16.[address] [facility] Work Phone: Blood platelet mean volumeon 12-23-2021 Platelet mean volume (Bld) [Entitic vol] 9.3 fL 6.2-12.[address] [facility] Work Phone: Determination of erythrocyte mean corpuscular volume (MCV)on 12-23-2021 MCV (RBC) [Entitic vol] 94.5 fL 80-94 [facility] Work Phone: Hematocrit Auto (Bld) [Volum e fraction]on 12-23-2021 Hematocrit (Bld) [Volume fraction] 39.2 % 40-[address] [facility] Work Phone: Laboratory - Chemistry and C hemistry - challengeon 12-23-2021 CO2 [Moles/Vol] 29.0 mmol/L 21.0-32.[address] [facility] Work Phone: Urea nitrogen/Creatinine [Mass ratio] 35.5 mg/mg 10-[address] [facility] Work Phone: Laboratory - Hematology and Cell countson 12-23-2021 Erythrocyte distribution width (RBC) [Entitic vol] 43.9 fL 35.1-43.[address] [facility] Work Phone: Erythrocyte distribution width (RBC) [Ratio] 12.7 % 11.6-14.[address] [facility] Work Phone: MCH (RBC) [Entitic mass] 32.5 pg 27.0-32.[address] [facility] Work Phone: MCHC Auto (RBC) [Mass/Vol]on 12-23-2021 MCHC (RBC) [Mass/Vol] 34.4 g/dL 32-36 [facility] Work Phone: No Panel Informationon 12-23 Estimated GFR (MDRD) Amer 114 mL/min >[address] [facility] Work Phone: Comment on above: GFR Calc Estimated GFR (MDRD) Non-Af Amer 94 mL/min >[address] [facility] Work Phone: Comment on above: Non- GFR Calc Platelets bldon 12-23-2021 Platelets (Bld) [#/Vol] 173 10*3/uL 150-[address] [facility] Work Phone: Serum or plasma calcium farshad urement (mass/volume)on 12-23-2021 Calcium [Mass/Vol] 8.9 mg/dL 8.5-10.1 [facility] Work Phone: Serum or plasma creatinine m easurement (mass/volume)on 12-23-2021 Creatinine [Mass/Vol] 0.84 mg/dL 0.70-1.30 [facility] Work Phone: Comment on above: The validity of the calculated GFR & GFRAA in patients over 70 years has not been determined. Clinical correlation is essential. Serum or plasma urea nitroge n measurement (mass/volume)on 12-23-2021 Urea nitrogen [Mass/Vol] 30 mg/dL 7-[address] [facility] Work Phone: Thin prep Papanicolaou smear with manual screeningon 12-23-2021 Thin prep Papanicolaou smear with manual screening 4 5-[address] [facility] Work Phone: Basophil percentageon 2021 Chloride [Moles/Vol] 108 mmol/L 98-107 [facility] Work Phone: Glucose [Mass/Vol] 85 mg/dL 74-106 [facility] Work Phone: Potassium [Moles/Vol] 4.5 mmol/L 3.5-5.1 [facility] Work Phone: Sodium [Moles/Vol] 142 mmol/L 136-145 [facility] Work Phone: WBC (Bld) [#/Vol] 4.4 10*3/uL 4.4-11.0 [facility] Work Phone: Blood erythrocytes count (nu mber/volume)on 11-18-2021 RBC (Bld) [#/Vol] 4.00 10*6/uL 4.6-6.2 [facility] Work Phone: Blood hemoglobin measurement (mass/volume)on 11-18-2021 Hemoglobin (Bld) [Mass/Vol] 12.6 g/dL 13.0-16.[address] [facility] Work Phone: Blood platelet mean volumeon 11-18-2021 Platelet mean volume (Bld) [Entitic vol] 9.5 fL 6.2-12.[address] [facility] Work Phone: Determination of erythrocyte mean corpuscular volume (MCV)on 11-18-2021 MCV (RBC) [Entitic vol] 93.8 fL 80-94 [facility] Work Phone: Hematocrit Auto (Bld) [Volum e fraction]on 11-18-2021 Hematocrit (Bld) [Volume fraction] 37.5 % 40-[address] [facility] Work Phone: Laboratory - Chemistry and C hemistry - challengeon 11-18-2021 CO2 [Moles/Vol] 32.0 mmol/L 21.0-32.[address] [facility] Work Phone: Urea nitrogen/Creatinine [Mass ratio] 31.3 mg/mg 10-[address] [facility] Work Phone: Laboratory - Hematology and Cell countson 11-18-2021 Erythrocyte distribution width (RBC) [Entitic vol] 44.8 fL 35.1-43.[address] [facility] Work Phone: Erythrocyte distribution width (RBC) [Ratio] 13.1 % 11.6-14.[address] [facility] Work Phone: MCH (RBC) [Entitic mass] 31.5 pg 27.0-32.[address] [facility] Work Phone: MCHC Auto (RBC) [Mass/Vol]on 11-18-2021 MCHC (RBC) [Mass/Vol] 33.6 g/dL 32-36 [facility] Work Phone: No Panel Informationon 11-18 Estimated GFR (MDRD) Amer 98 mL/min >[address] [facility] Work Phone: Comment on above: GFR Calc Estimated GFR (MDRD) Non-Af Amer 81 mL/min >[address] [facility] Work Phone: Comment on above: Non- GFR Calc Platelets bldon 11-18-2021 Platelets (Bld) [#/Vol] 175 10*3/uL 150-[address] [facility] Work Phone: Serum or plasma calcium farshad urement (mass/volume)on 11-18-2021 Calcium [Mass/Vol] 9.1 mg/dL 8.5-10.1 [facility] Work Phone: Serum or plasma creatinine m easurement (mass/volume)on 11-18-2021 Creatinine [Mass/Vol] 0.96 mg/dL 0.70-1.30 [facility] Work Phone: Comment on above: The validity of the calculated GFR & GFRAA in patients over 70 years has not been determined. Clinical correlation is essential. Serum or plasma urea nitroge n measurement (mass/volume)on 11-18-2021 Urea nitrogen [Mass/Vol] 30 mg/dL 7-[address] [facility] Work Phone: Thin prep Papanicolaou smear with manual screeningon 11-18-2021 Thin prep Papanicolaou smear with manual screening 2 5-[address] [facility] Work Phone: Basophil percentageon 2021 Chloride [Moles/Vol] 107 mmol/L 98-107 [facility] Work Phone: Glucose [Mass/Vol] 94 mg/dL 74-106 [facility] Work Phone: Potassium [Moles/Vol] 4.3 mmol/L 3.5-5.1 [facility] Work Phone: Sodium [Moles/Vol] 140 mmol/L 136-145 [facility] Work Phone: WBC (Bld) [#/Vol] 4.4 10*3/uL 4.4-11.0 [facility] Work Phone: Blood erythrocytes count (nu mber/volume)on 10-21-2021 RBC (Bld) [#/Vol] 4.01 10*6/uL 4.6-6.2 [facility] Work Phone: Blood hemoglobin measurement (mass/volume)on 10-21-2021 Hemoglobin (Bld) [Mass/Vol] 12.7 g/dL 13.0-16.[address] [facility] Work Phone: Blood platelet mean volumeon 10-21-2021 Platelet mean volume (Bld) [Entitic vol] 9.1 fL 6.2-12.[address] [facility] Work Phone: Determination of erythrocyte mean corpuscular volume (MCV)on 10-21-2021 MCV (RBC) [Entitic vol] 96.8 fL 80-94 [facility] Work Phone: Hematocrit Auto (Bld) [Volum e fraction]on 10-21-2021 Hematocrit (Bld) [Volume fraction] 38.8 % 40-[address] [facility] Work Phone: Laboratory - Chemistry and C hemistry - challengeon 10-21-2021 CO2 [Moles/Vol] 31.0 mmol/L 21.0-32.[address] [facility] Work Phone: Urea nitrogen/Creatinine [Mass ratio] 27.8 mg/mg 10-[address] [facility] Work Phone: Laboratory - Hematology and Cell countson 10-21-2021 Erythrocyte distribution width (RBC) [Entitic vol] 44.9 fL 35.1-43.[address] [facility] Work Phone: Erythrocyte distribution width (RBC) [Ratio] 12.6 % 11.6-14.[address] [facility] Work Phone: MCH (RBC) [Entitic mass] 31.7 pg 27.0-32.[address] [facility] Work Phone: MCHC Auto (RBC) [Mass/Vol]on 10-21-2021 MCHC (RBC) [Mass/Vol] 32.7 g/dL 32-36 [facility] Work Phone: No Panel Informationon 10-21 Estimated GFR (MDRD) Amer 97 mL/min >[address] [facility] Work Phone: Comment on above: GFR Calc Estimated GFR (MDRD) Non-Af Amer 80 mL/min >[address] [facility] Work Phone: Comment on above: Non- GFR Calc Platelets bldon 10-21-2021 Platelets (Bld) [#/Vol] 273 10*3/uL 150-[address] [facility] Work Phone: Serum or plasma calcium farshad urement (mass/volume)on 10-21-2021 Calcium [Mass/Vol] 9.1 mg/dL 8.5-10.1 [facility] Work Phone: Serum or plasma creatinine m easurement (mass/volume)on 10-21-2021 Creatinine [Mass/Vol] 0.97 mg/dL 0.70-1.30 [facility] Work Phone: Comment on above: The validity of the calculated GFR & GFRAA in patients over 70 years has not been determined. Clinical correlation is essential. Serum or plasma urea nitroge n measurement (mass/volume)on 10-21-2021 Urea nitrogen [Mass/Vol] 27 mg/dL 7-[address] [facility] Work Phone: Thin prep Papanicolaou smear with manual screeningon 10-21-2021 Thin prep Papanicolaou smear with manual screening 2 5-[address] [facility] Work Phone: Absolute lymphocyte counton 10-02-2021 Lymphocytes Auto (Unsp spec) [#/Vol] 0.52 10*3/uL 0.83-4.[address] [facility] Work Phone: Basophil percentageon 2021 Basophil percentage 0-5 SEEN /hpf 0-5 [facility] Work Phone: Basophils/100 WBC (Bld) 0.1 % 0-1 [facility] Work Phone: Bilirubin [Mass/Vol] 1.30 mg/dL 0.20-1.00 [facility] Work Phone: Comment on above: For patients on eltr ombopag therapy, use of Dimension [place] TBIL is not recommended. Chloride [Moles/Vol] 104 mmol/L 98-107 [facility] Work Phone: Eosinophils/100 WBC (Bld) 0.1 % 0-[address] [facility] Work Phone: Glucose [Mass/Vol] 135 mg/dL 74-106 [facility] Work Phone: Comment on above: Fasting Glucose resu lt greater than or equal to 126 mg/dL suggests DIABETES MELLITUS per A.D.A. criteria. Neutrophils (Bld) [#/Vol] 10.9 10*3/uL 2.0-7.[address] [facility] Work Phone: Neutrophils/100 WBC (Bld) 91.6 % 47-[address] [facility] Work Phone: Potassium [Moles/Vol] 4.1 mmol/L 3.5-5.1 [facility] Work Phone: Protein [Mass/Vol] 7.0 g/dL 6.4-8.2 [facility] Work Phone: Sodium [Moles/Vol] 136 mmol/L 136-145 [facility] Work Phone: WBC (Bld) [#/Vol] 11.9 10*3/uL 4.4-11.0 [facility] Work Phone: Bilirubin Test strip Ql (U)o n 10-02-2021 Bilirubin Ql (U) Negative Negative [facility] Work Phone: Blood erythrocytes count (nu mber/volume)on 10-02-2021 RBC (Bld) [#/Vol] 4.20 10*6/uL 4.6-6.2 [facility] Work Phone: Blood hemoglobin measurement (mass/volume)on 10-02-2021 Hemoglobin (Bld) [Mass/Vol] 13.7 g/dL 13.0-16.[address] [facility] Work Phone: Blood lymphocytes/100 leukoc yteson 10-02-2021 Lymphocytes/100 WBC (Bld) 4.4 % 19-[address] [facility] Work Phone: Blood manual differential co mment interpretation (narrative result)on 10-02-2021 Manual differential comment Jordi (Bld) [Interp] SCANNED [facility] Work Phone: Comment on above: LYMPHOPENIA NOTED Blood monocytes/100 leukocyt eson 10-02-2021 Monocytes/100 WBC (Bld) 3.3 % 0-10 [facility] Work Phone: Blood platelet mean volumeon 10-02-2021 Platelet mean volume (Bld) [Entitic vol] 9.0 fL 6.2-12.[address] [facility] Work Phone: Determination of erythrocyte mean corpuscular volume (MCV)on 10-02-2021 MCV (RBC) [Entitic vol] 92.6 fL 80-94 [facility] Work Phone: Hematocrit Auto (Bld) [Volum e fraction]on 10-02-2021 Hematocrit (Bld) [Volume fraction] 38.9 % 40-[address] [facility] Work Phone: Ketones Test strip Ql (U)on 10-02-2021 Ketones Ql (U) 15 mg/dl Negative [facility] Work Phone: Laboratory - Chemistry and C hemistry - challengeon 10-02-2021 ALP [Catalytic activity/Vol] 156 U/L 45-[address] [facility] Work Phone: ALT [Catalytic activity/Vol] 14 U/L 16-[address] [facility] Work Phone: CO2 [Moles/Vol] 26.0 mmol/L 21.0-32.[address] [facility] Work Phone: Globulin (S) [Mass/Vol] 3.2 g/dL 2.2-4.2 [facility] Work Phone: Urea nitrogen/Creatinine [Mass ratio] 23.1 mg/mg 10-[address] [facility] Work Phone: Laboratory - Hematology and Cell countson 10-02-2021 Erythrocyte distribution width (RBC) [Entitic vol] 42.7 fL 35.1-43.[address] [facility] Work Phone: Erythrocyte distribution width (RBC) [Ratio] 12.6 % 11.6-14.[address] [facility] Work Phone: Immature granulocytes/100 WBC (Bld) 0.500 % 0.0-0.[address] [facility] Work Phone: Comment on above: IG% - Immature Granu locytes (promyelocytes, myelocytes and metamyelocytes) > 1% indicates that a LEFT SHIFT is Present. MCH (RBC) [Entitic mass] 32.6 pg 27.0-32.[address] [facility] Work Phone: Nucleated RBC/100 WBC (Bld) [Ratio] 0 % 0-[address] [facility] Work Phone: MCHC Auto (RBC) [Mass/Vol]on 10-02-2021 MCHC (RBC) [Mass/Vol] 35.2 g/dL 32-36 [facility] Work Phone: Mucus LM Ql (Urine sed)on Mucus Ql (Urine sed) RARE /hpf [facility] Work Phone: Nitrite Test strip Ql (U)on 10-02-2021 Nitrite Ql (U) Negative Negative [facility] Work Phone: No Panel Informationon 10-02 Estimated Creatinine Clearance Calc 60.08 ml/min [facility] Work Phone: Estimated GFR (MDRD) Amer 85 mL/min >[address] [facility] Work Phone: Comment on above: GFR Calc Estimated GFR (MDRD) Non-Af Amer 71 mL/min >[address] [facility] Work Phone: Comment on above: Non- GFR Calc Troponin I High Sensitivity 6 pg/mL 3.0-78.[address] [facility] Work Phone: Comment on above: Please Note: [place] t Units and Gender Specific Reference Ranges. For more information see Policy Stat Procedure [place] High Sensitivity Troponin (TNIH) and attachments. Platelets bldon 10-02-2021 Platelets (Bld) [#/Vol] 154 10*3/uL 150-[address] [facility] Work Phone: Protein Test strip Ql (U)on 10-02-2021 Protein Ql (U) 15 mg/dl Negative [facility] Work Phone: Serum or plasma albumin farshad urement (mass/volume)on 10-02-2021 Albumin [Mass/Vol] 3.8 g/dL 3.2-5.0 [facility] Work Phone: Serum or plasma albumin/glob ulin mass ratioon 10-02-2021 Albumin/Globulin [Mass ratio] 1.2 {ratio} 0.9-2.[address] [facility] Work Phone: Serum or plasma calcium farshad urement (mass/volume)on 10-02-2021 Calcium [Mass/Vol] 8.7 mg/dL 8.5-10.1 [facility] Work Phone: Serum or plasma creatinine m easurement (mass/volume)on 10-02-2021 Creatinine [Mass/Vol] 1.08 mg/dL 0.70-1.30 [facility] Work Phone: Comment on above: The validity of the calculated GFR & GFRAA in patients over 70 years has not been determined. Clinical correlation is essential. Serum or plasma urea nitroge n measurement (mass/volume)on 10-02-2021 Urea nitrogen [Mass/Vol] 25 mg/dL 7-[address] [facility] Work Phone: Squamous epithelial cells de tection in urine sediment by light microscopyon 10-02-2021 Epithelial cells.squamous LM Ql (Urine sed) 0 SEEN /hpf 0-[address] [facility] Work Phone: Thin prep Papanicolaou smear with manual screeningon 10-02-2021 Thin prep Papanicolaou smear with manual screening 34 U/L 15-[address] [facility] Work Phone: Thin prep Papanicolaou smear with manual screening 6 5-[address] [facility] Work Phone: Urine blood detectionon 09-12 RBC Ql (U) Negative Negative [facility] Work Phone: RBC Ql (U) 0 SEEN /hpf 0-[address] [facility] Work Phone: Urine clarityon 10-02-2021 Clarity (U) Clear Clear [facility] Work Phone: Urine color determinationon 10-02-2021 Color (U) Yellow Yellow [facility] Work Phone: Urine glucose detectionon Glucose Ql (U) Normal mg/dl Normal [facility] Work Phone: Urine leukocyte esterase det ection by dipstickon 10-02-2021 Leukocyte esterase Test strip Ql (U) 25 /ul Negative [facility] Work Phone: Urine pHon 10-02-2021 pH (U) 6.0 [pH] 5.0 - 8.[address] [facility] Work Phone: Urine sediment bacteria coun t by microscopy (number/high power field)on 10-02-2021 Bacteria LM.HPF (Urine sed) [#/Area] 0 /[HPF] None Seen [facility] Work Phone: Urine specific gravity measu rementon 10-02-2021 Specific gravity (U) [Rel density] 1.015 1.002-1.[address] [facility] Work Phone: Urobilinogen Auto test strip Ql (U)on 10-02-2021 Urobilinogen Ql (U) 1 mg/dl Normal [facility] Work Phone: Basophil percentageon 2021 Chloride [Moles/Vol] 106 mmol/L 98-[address] [facility] [address] [facility] Work Phone: Glucose [Mass/Vol] 96 mg/dL 74-106 [facility] Work Phone: Potassium [Moles/Vol] 4.1 mmol/L 3.5-5.1 [facility] Work Phone: Sodium [Moles/Vol] 139 mmol/L 136-145 [facility] Work Phone: WBC (Bld) [#/Vol] 4.7 10*3/uL 4.4-11.0 [facility] Work Phone: Blood erythrocytes count (nu mber/volume)on 09-23-2021 RBC (Bld) [#/Vol] 4.10 10*6/uL 4.6-6.2 [facility] Work Phone: Blood hemoglobin measurement (mass/volume)on 09-23-2021 Hemoglobin (Bld) [Mass/Vol] 13.4 g/dL 13.0-16.[address] [facility] Work Phone: Blood platelet mean volumeon 09-23-2021 Platelet mean volume (Bld) [Entitic vol] 9.5 fL 6.2-12.[address] [facility] Work Phone: Determination of erythrocyte mean corpuscular volume (MCV)on 09-23-2021 MCV (RBC) [Entitic vol] 95.9 fL 80-94 [facility] Work Phone: Hematocrit Auto (Bld) [Volum e fraction]on 09-23-2021 Hematocrit (Bld) [Volume fraction] 39.3 % 40-[address] [facility] Work Phone: Laboratory - Chemistry and C hemistry - challengeon 09-23-2021 CO2 [Moles/Vol] 28.0 mmol/L 21.0-32.[address] [facility] Work Phone: Urea nitrogen/Creatinine [Mass ratio] 32.7 mg/mg 10-[address] [facility] Work Phone: Laboratory - Hematology and Cell countson 09-23-2021 Erythrocyte distribution width (RBC) [Entitic vol] 44.1 fL 35.1-43.[address] [facility] Work Phone: Erythrocyte distribution width (RBC) [Ratio] 12.7 % 11.6-14.[address] [facility] Work Phone: MCH (RBC) [Entitic mass] 32.7 pg 27.0-32.[address] [facility] Work Phone: MCHC Auto (RBC) [Mass/Vol]on 09-23-2021 MCHC (RBC) [Mass/Vol] 34.1 g/dL 32-36 [facility] Work Phone: No Panel Informationon 09-23 Estimated GFR (MDRD) Amer 84 mL/min >[address] [facility] Work Phone: Comment on above: GFR Calc Estimated GFR (MDRD) Non-Af Amer 69 mL/min >[address] [facility] Work Phone: Comment on above: Non- GFR Calc Platelets bldon 09-23-2021 Platelets (Bld) [#/Vol] 167 10*3/uL 150-[address] [facility] Work Phone: Serum or plasma calcium farshad urement (mass/volume)on 09-23-2021 Calcium [Mass/Vol] 9.0 mg/dL 8.5-10.1 [facility] Work Phone: Serum or plasma creatinine m easurement (mass/volume)on 09-23-2021 Creatinine [Mass/Vol] 1.10 mg/dL 0.70-1.30 [facility] Work Phone: Comment on above: The validity of the calculated GFR & GFRAA in patients over 70 years has not been determined. Clinical correlation is essential. Serum or plasma urea nitroge n measurement (mass/volume)on 09-23-2021 Urea nitrogen [Mass/Vol] 36 mg/dL 7-[address] [facility] Work Phone: Thin prep Papanicolaou smear with manual screeningon 09-23-2021 Thin prep Papanicolaou smear with manual screening 5 5-[address] [facility] Work Phone: Basophil percentageon 2021 Chloride [Moles/Vol] 105 mmol/L 98-107 [facility] Work Phone: Glucose [Mass/Vol] 88 mg/dL 74-106 [facility] Work Phone: Potassium [Moles/Vol] 4.2 mmol/L 3.5-5.1 [facility] Work Phone: Sodium [Moles/Vol] 139 mmol/L 136-145 [facility] Work Phone: WBC (Bld) [#/Vol] 4.3 10*3/uL 4.4-11.0 [facility] Work Phone: Blood erythrocytes count (nu mber/volume)on 08-19-2021 RBC (Bld) [#/Vol] 4.31 10*6/uL 4.6-6.2 [facility] Work Phone: Blood hemoglobin measurement (mass/volume)on 08-19-2021 Hemoglobin (Bld) [Mass/Vol] 13.6 g/dL 13.0-16.[address] [facility] Work Phone: Blood platelet mean volumeon 08-19-2021 Platelet mean volume (Bld) [Entitic vol] 9.4 fL 6.2-12.[address] [facility] Work Phone: Determination of erythrocyte mean corpuscular volume (MCV)on 08-19-2021 MCV (RBC) [Entitic vol] 93.5 fL 80-94 [facility] Work Phone: Hematocrit Auto (Bld) [Volum e fraction]on 08-19-2021 Hematocrit (Bld) [Volume fraction] 40.3 % 40-[address] [facility] Work Phone: Laboratory - Chemistry and C hemistry - challengeon 08-19-2021 CO2 [Moles/Vol] 31.0 mmol/L 21.0-32.[address] [facility] Work Phone: Urea nitrogen/Creatinine [Mass ratio] 34.1 mg/mg 10-[address] [facility] Work Phone: Laboratory - Hematology and Cell countson 08-19-2021 Erythrocyte distribution width (RBC) [Entitic vol] 43.7 fL 35.1-43.[address] [facility] Work Phone: Erythrocyte distribution width (RBC) [Ratio] 12.6 % 11.6-14.[address] [facility] Work Phone: MCH (RBC) [Entitic mass] 31.6 pg 27.0-32.[address] [facility] Work Phone: MCHC Auto (RBC) [Mass/Vol]on 08-19-2021 MCHC (RBC) [Mass/Vol] 33.7 g/dL 32-36 [facility] Work Phone: No Panel Informationon 08-19 Estimated GFR (MDRD) Amer 94 mL/min >[address] [facility] Work Phone: Comment on above: GFR Calc Estimated GFR (MDRD) Non-Af Amer 77 mL/min >[address] [facility] Work Phone: Comment on above: Non- GFR Calc Platelets bldon 08-19-2021 Platelets (Bld) [#/Vol] 162 10*3/uL 150-[address] [facility] Work Phone: Serum or plasma calcium farshad urement (mass/volume)on 08-19-2021 Calcium [Mass/Vol] 8.7 mg/dL 8.5-10.1 [facility] Work Phone: Serum or plasma creatinine m easurement (mass/volume)on 08-19-2021 Creatinine [Mass/Vol] 1.00 mg/dL 0.70-1.30 [facility] Work Phone: Comment on above: The validity of the calculated GFR & GFRAA in patients over 70 years has not been determined. Clinical correlation is essential. Serum or plasma urea nitroge n measurement (mass/volume)on 08-19-2021 Urea nitrogen [Mass/Vol] 34 mg/dL 7-[address] [facility] Work Phone: Thin prep Papanicolaou smear with manual screeningon 08-19-2021 Thin prep Papanicolaou smear with manual screening 3 5-[address] [facility] Work Phone: Basophil percentageon 2021 Chloride [Moles/Vol] 108 mmol/L 98-107 [facility] Work [facility]: Glucose [Mass/Vol] 85 mg/dL 74-106 [facility] Work Phone: Potassium [Moles/Vol] 4.3 mmol/L 3.5-5.1 [facility] Work Phone: Sodium [Moles/Vol] 141 mmol/L 136-145 [facility] Work Phone: WBC (Bld) [#/Vol] 4.4 10*3/uL 4.4-11.0 [facility] Work Phone: Blood erythrocytes count (nu mber/volume)on 07-22-2021 RBC (Bld) [#/Vol] 4.02 10*6/uL 4.6-6.2 [facility] Blood hemoglobin measurement (mass/volume)on 07-22-2021 Hemoglobin (Bld) [Mass/Vol] 13.1 g/dL 13.0-16.[address] [facility] Work Phone: Blood platelet mean volumeon 07-22-2021 Platelet mean volume (Bld) [Entitic vol] 9.2 fL 6.2-12.[address] [facility] Work Phone: Determination of erythrocyte mean corpuscular volume (MCV)on 07-22-2021 MCV (RBC) [Entitic vol] 92.8 fL 80-94 [facility] Work Phone: Hematocrit Auto (Bld) [Volum e fraction]on 07-22-2021 Hematocrit (Bld) [Volume fraction] 37.3 % 40-[address] [facility] Work Phone: Laboratory - Chemistry and C hemistry - challengeon 07-22-2021 CO2 [Moles/Vol] 32.0 mmol/L 21.0-32.[address] [facility] Work Phone: Urea nitrogen/Creatinine [Mass ratio] 26.4 mg/mg 10-[address] [facility] Work Phone: Laboratory - Hematology and Cell countson 07-22-2021 Erythrocyte distribution width (RBC) [Entitic vol] 42.7 fL 35.1-43.[address] [facility] Work Phone: Erythrocyte distribution width (RBC) [Ratio] 12.5 % 11.6-14.[address] [facility] Work Phone: MCH (RBC) [Entitic mass] 32.6 pg 27.0-32.[address] [facility] Work Phone: MCHC Auto (RBC) [Mass/Vol]on 07-22-2021 MCHC (RBC) [Mass/Vol] 35.1 g/dL 32-36 [facility] Work Phone: No Panel Informationon 07-22 Estimated GFR (MDRD) Amer 87 mL/min >[address] [facility] Work Phone: Comment on above: GFR Calc Estimated GFR (MDRD) Non-Af Amer 72 mL/min >[address] [facility] Work Phone: Comment on above: Non- GFR Calc Platelets bldon 07-22-2021 Platelets (Bld) [#/Vol] 163 10*3/uL 150-[address] [facility] Work Phone: Serum or plasma calcium farshad urement (mass/volume)on 07-22-2021 Calcium [Mass/Vol] 8.9 mg/dL 8.5-10.1 [facility] Work Phone: Serum or plasma creatinine m easurement (mass/volume)on 07-22-2021 Creatinine [Mass/Vol] 1.06 mg/dL 0.70-1.30 [facility] Work Phone: Comment on above: The validity of the calculated GFR & GFRAA in patients over 70 years has not been determined. Clinical correlation is essential. Serum or plasma urea nitroge n measurement (mass/volume)on 07-22-2021 Urea nitrogen [Mass/Vol] 28 mg/dL 7-[address] [facility] Work Phone: Thin prep Papanicolaou smear with manual screeningon 07-22-2021 Thin prep Papanicolaou smear with manual screening 1 5-[address] [facility] Work Phone: Basophil percentageon 2021 Chloride [Moles/Vol] 106 mmol/L 98-107 [facility]: Glucose [Mass/Vol] 80 mg/dL 74-106 [facility] Work Phone: Potassium [Moles/Vol] 4.2 mmol/L 3.5-5.1 [facility]: Sodium [Moles/Vol] 140 mmol/L 136-145 [facility] Work Phone: WBC (Bld) [#/Vol] 4.1 10*3/uL 4.4-11.0 [facility] Work Phone: Blood erythrocytes count (nu mber/volume)on 06-24-2021 RBC (Bld) [#/Vol] 4.10 10*6/uL 4.6-6.2 [facility] Work Phone: Blood hemoglobin measurement (mass/volume)on 06-24-2021 Hemoglobin (Bld) [Mass/Vol] 13.3 g/dL 13.0-16.[address] [facility] Work Phone: Blood platelet mean volumeon 06-24-2021 Platelet mean volume (Bld) [Entitic vol] 9.5 fL 6.2-12.[address] [facility] Work Phone: Determination of erythrocyte mean corpuscular volume (MCV)on 06-24-2021 MCV (RBC) [Entitic vol] 93.4 fL 80-94 [facility] Work Phone: Hematocrit Auto (Bld) [Volum e fraction]on 06-24-2021 Hematocrit (Bld) [Volume fraction] 38.3 % 40-[address] [facility] Work Phone: Laboratory - Chemistry and C hemistry - challengeon 06-24-2021 CO2 [Moles/Vol] 33.0 mmol/L 21.0-32.[address] [facility] Work Phone: Urea nitrogen/Creatinine [Mass ratio] 32.4 mg/mg 10-[address] [facility] Work Phone: Laboratory - Hematology and Cell countson 06-24-2021 Erythrocyte distribution width (RBC) [Entitic vol] 43.4 fL 35.1-43.[address] [facility] Work Phone: Erythrocyte distribution width (RBC) [Ratio] 12.5 % 11.6-14.[address] [facility] Work Phone: MCH (RBC) [Entitic mass] 32.4 pg 27.0-32.[address] [facility] Work Phone: MCHC Auto (RBC) [Mass/Vol]on 06-24-2021 MCHC (RBC) [Mass/Vol] 34.7 g/dL 32-36 [facility] Work Phone: No Panel Informationon 06-24 Estimated GFR (MDRD) Amer 102 mL/min >[address] [facility] Work Phone: Comment on above: GFR Calc Estimated GFR (MDRD) Non-Af Amer 84 mL/min >[address] [facility] Work Phone: Comment on above: Non- GFR Calc Platelets bldon 06-24-2021 Platelets (Bld) [#/Vol] 149 10*3/uL 150-[address] [facility] Work Phone: Serum or plasma calcium farshad urement (mass/volume)on 06-24-2021 Calcium [Mass/Vol] 8.6 mg/dL 8.5-10.1 [facility] Work Phone: Serum or plasma creatinine m easurement (mass/volume)on 06-24-2021 Creatinine [Mass/Vol] 0.93 mg/dL 0.70-1.30 [facility] Work Phone: Comment on above: The validity of the calculated GFR & GFRAA in patients over 70 years has not been determined. Clinical correlation is essential. Serum or plasma urea nitroge n measurement (mass/volume)on 06-24-2021 Urea nitrogen [Mass/Vol] 30 mg/dL 7-[address] [facility] Work Phone: Thin prep Papanicolaou smear with manual screeningon 06-24-2021 Thin prep Papanicolaou smear with manual screening 1 5-[address] [facility] Work Phone: Basophil percentageon 2021 Chloride [Moles/Vol] 105 mmol/L 98-107 [facility] Work Phone: Glucose [Mass/Vol] 93 mg/dL 74-106 [facility] Work Phone: Potassium [Moles/Vol] 4.4 mmol/L 3.5-5.1 [facility] Work Phone: Sodium [Moles/Vol] 140 mmol/L 136-145 [facility] Work Phone: WBC (Bld) [#/Vol] 4.8 10*3/uL 4.4-11.0 [facility] Work Phone: Blood erythrocytes count (nu mber/volume)on 05-27-2021 RBC (Bld) [#/Vol] 4.04 10*6/uL 4.6-6.2 [facility] Work Phone: Blood hemoglobin measurement (mass/volume)on 05-27-2021 Hemoglobin (Bld) [Mass/Vol] 13.0 g/dL 13.0-16.[address] [facility] Work Phone: Blood platelet mean volumeon 05-27-2021 Platelet mean volume (Bld) [Entitic vol] 9.5 fL 6.2-12.[address] [facility] Work Phone: Determination of erythrocyte mean corpuscular volume (MCV)on 05-27-2021 MCV (RBC) [Entitic vol] 94.1 fL 80-94 [facility] Work Phone: Hematocrit Auto (Bld) [Volum e fraction]on 05-27-2021 Hematocrit (Bld) [Volume fraction] 38.0 % 40-[address] [facility] Work Phone: Laboratory - Chemistry and C hemistry - challengeon 05-27-2021 CO2 [Moles/Vol] 31.0 mmol/L 21.0-32.[address] [facility] Work Phone: Urea nitrogen/Creatinine [Mass ratio] 25.2 mg/mg 10-[address] [facility] Work Phone: Laboratory - Hematology and Cell countson 05-27-2021 Erythrocyte distribution width (RBC) [Entitic vol] 43.4 fL 35.1-43.[address] [facility] Work Phone: Erythrocyte distribution width (RBC) [Ratio] 12.5 % 11.6-14.[address] [facility] Work Phone: MCH (RBC) [Entitic mass] 32.2 pg 27.0-32.[address] [facility] Work Phone: MCHC Auto (RBC) [Mass/Vol]on 05-27-2021 MCHC (RBC) [Mass/Vol] 34.2 g/dL 32-36 [facility] Work Phone: No Panel Informationon 05-27 Estimated GFR (MDRD) Amer 90 mL/min >[address] [facility] Work Phone: Comment on above: GFR Calc Estimated GFR (MDRD) Non-Af Amer 75 mL/min >[address] [facility] Work Phone: Comment on above: Non- GFR Calc Platelets bldon 05-27-2021 Platelets (Bld) [#/Vol] 157 10*3/uL 150-[address] [facility] Work Phone: Serum or plasma calcium farshad urement (mass/volume)on 05-27-2021 Calcium [Mass/Vol] 8.9 mg/dL 8.5-10.1 [facility] Work Phone: Serum or plasma creatinine m easurement (mass/volume)on 05-27-2021 Creatinine [Mass/Vol] 1.03 mg/dL 0.70-1.30 [facility] Work Phone: Comment on above: The validity of the calculated GFR & GFRAA in patients over 70 years has not been determined. Clinical correlation is essential. Serum or plasma urea nitroge n measurement (mass/volume)on 05-27-2021 Urea nitrogen [Mass/Vol] 26 mg/dL 7-[address] [facility] Work Phone: Thin prep Papanicolaou smear with manual screeningon 05-27-2021 Thin prep Papanicolaou smear with manual screening 4 5-[address] [facility] Work Phone: [facility] Surgical Pathology Depar tmenton 12-21-2020 [facility] Surgical Pathology Department Name IGOR CRUZ Pathologist: JAYSHREE BRITTON DMD Date of Procedure: 12/21/2020 Date Received: 12/24/2020 Date Reported 12/27/2020 Submitting Physician: MARJAN SOSA DMD Location: [facility] Other External # FINAL DIAGNOSIS A: FRONT AND RIGHT LATERAL BORDER OF TONGUE, EXCISION: -- TRAUMATIC FIBROMAS ICD-10/CPT: D10.1/90937 Electronically Signed Out By JAYSHREE BRITTON DMD/FRIDAS [...] in toto in one cassette. [facility] rcc/12/24/2020 [facility] Department of Pathology [id number] [place] [address] Normal [facility] Comment on above: Performed By: #### U HCS #### [facility] Surgical Pathology Department [id number] [place], [place] [id number] CURon 08-12-2019 CUR . MICRO - Microbiology [...] Locations *1: This test was performed at: [address], [address] [place] [address] ([place]) Comment on above: Performed By: #### C BC, ADIFF, ANEU #### [address] [address] #### TROP, BMP, TSH, GFR #### [address] [address] .GFRon 08-10-2019 GFR 43 ml/min/1.73sqm [facility] ([place]) Comment on above: Result Comment: GFR Population [...] meters Performed By: #### B MP, GFR ####[address] [address] GFR Non- 35 ml/min/1.73sqm Normal [facility] ([place]) Comment on above: Result Comment: GFR Population [...] meters Performed By: #### B MP, GFR ####[address] [address] BMPon 08-10-2019 Calcium [Mass/Vol] 9.1 mg/dL Normal 8.4-10.2 [facility] ([place]) Comment on above: Performed By: #### B MP, GFR ####[address] [address] Chloride [Moles/Vol] 105 mmol/L Normal 98-107 [facility] ([place]) Comment on above: Performed By: #### B MP, GFR ####[address] [address] CO2 [Moles/Vol] 33 mmol/L High 23-31 [facility] ([place]) Comment on above: Performed By: #### B MP, GFR ####[address] [address] Creatinine [Mass/Vol] 1.88 mg/dL High 0.70-1.30 [facility] ([place]) Comment on above: Performed By: #### B MP, GFR ####[address] [address] Electrolyte Balance 5.0 mEq/L Normal [facility] ([place]) Comment on above: Performed By: #### B MP, GFR ####[address] [address] Glucose [Mass/Vol] 83 mg/dL Normal 83-110 [facility] ([place]) Comment on above: Performed By: #### B MP, GFR ####[address] [address] Potassium [Moles/Vol] 4.1 mmol/L Normal 3.5-5.1 [facility] ([place]) Comment on above: Performed By: #### B MP, GFR ####[address] [address] Sodium [Moles/Vol] 143 mmol/L Normal 136-145 [facility] ([place]) Comment on above: Performed By: #### B MP, GFR ####[address] [address] Urea nitrogen [Mass/Vol] 38 mg/dL High 7-18 [facility] ([place]) Comment on above: Performed By: #### B MP, GFR ####[address] [address] Urea nitrogen/Creatinine [Mass ratio] 20 ratio Normal 7-27 [facility] ([place]) Comment on above: Performed By: #### B MP, GFR ####[address] [address] UAon 08-10-2019 Color (U) Yellow Normal [facility] ([place]) Comment on above: Performed By: #### C BC, ADIFF, ANEU #### [place] [address] [place], [place] [address] #### TROP, BMP, TSH, GFR #### [address] [address] Glucose (U) [Mass/Vol] Negative Normal Negative [facility] ([place]) Comment on above: Performed By: #### C BC, ADIFF, ANEU #### [address] [address] #### TROP, BMP, TSH, GFR #### [place] [id number] Ketones Ql (U) Negative Normal Negative [facility] ([place]) Comment on above: Performed By: #### C BC, ADIFF, ANEU #### [place] [address] #### TROP, BMP, TSH, GFR #### [place] [address] UA Appear Clear Normal Clear [facility] ([place]) Comment on above: Performed By: #### C BC, ADIFF, ANEU #### [place] [address] #### TROP, BMP, TSH, GFR #### [place] [address] UA Blood Trace Abnormal Negative [facility] ([place]) Comment on above: Performed By: #### C BC, ADIFF, ANEU #### [address] [address] #### TROP, BMP, TSH, GFR #### [place] [address] UA Leuk Est Negative Normal Negative [facility] ([place]) Comment on above: Performed By: #### C BC, ADIFF, ANEU #### [place] [address] #### TROP, BMP, TSH, GFR #### [place] [address] UA Nitrite Negative Normal Negative [facility] ([place]) Comment on above: Performed By: #### C BC, ADIFF, ANEU #### [place] [address] #### TROP, BMP, TSH, GFR #### [place] [address] UA pH 7.0 Normal 5.0 - 8.0 [facility] ([place]) Comment on above: Performed By: #### C BC, ADIFF, ANEU #### [place] [address] #### TROP, BMP, TSH, GFR #### [place] [address] UA Protein Negative Normal Negative [facility] ([place]) Comment on above: Performed By: #### C BC, ADIFF, ANEU #### [place] [address] #### TROP, BMP, TSH, GFR #### [place] [address] UA Spec Grav 1.020 Normal 1.015-1.025 [facility] ([place]) Comment on above: Performed By: #### C BC, ADIFF, ANEU #### [place] [address] #### TROP, BMP, TSH, GFR #### [place] [address] UA Specimen Type Clean Catch Normal [facility] ([place]) Comment on above: Performed By: #### C BC, ADIFF, ANEU #### [place] [address] #### TROP, BMP, TSH, GFR #### [place] [address] UA Urobilinogen 0.2 E.U./dL Normal 0.2-1.0 [facility] ([place]) Comment on above: Performed By: #### C BC, ADIFF, ANEU #### [place] [address] #### TROP, BMP, TSH, GFR #### [place] [address] Urobilinogen Qn (U) Negative Normal Negative [facility] ([place]) Comment on above: Performed By: #### C BC, ADIFF, ANEU #### [place] [address] #### TROP, BMP, TSH, GFR #### [address] [address] .Auto Diffon 08-09-2019 Ammonia (P) [Mass/Vol] 0.40 10 3/mcL Normal 0.15-1.00 [facility] ([place]) Comment on above: Performed By: #### C BC, ADIFF, ANEU #### [address] [address] #### TROP, BMP, TSH, GFR #### [address] [address] Basophils (Bld) [#/Vol] 0.00 10 3/mcL Normal 0.00-0.19 [facility] ([place]) Comment on above: Performed By: #### C BC, ADIFF, ANEU #### [address] [address] #### TROP, BMP, TSH, GFR #### [place] [address] Basophils/100 WBC (Bld) 1.0 % Normal 0.0-2.5 [facility] ([place]) Comment on above: Performed By: #### C BC, ADIFF, ANEU #### [address] [address] #### TROP, BMP, TSH, GFR #### [address] [address] Eosinophils (Bld) [#/Vol] 0.10 10 3/mcL Normal 0.00-0.40 [facility] ([place]) Comment on above: Performed By: #### C BC, ADIFF, ANEU #### [address] [address] #### TROP, BMP, TSH, GFR #### [address] [address] Eosinophils/100 WBC (Bld) 1.3 % Normal 0.0-7.0 [facility] ([place]) Comment on above: Performed By: #### C BC, ADIFF, ANEU #### [place] [address] #### TROP, BMP, TSH, GFR #### [address] [address] Lymphocytes (Bld) [#/Vol] 0.80 10 3/mcL Normal 0.77-3.85 [facility] ([place]) Comment on above: Performed By: #### C BC, ADIFF, ANEU #### [place] [address] #### TROP, BMP, TSH, GFR #### [address] [address] Lymphocytes/100 WBC (Bld) 15.3 % Normal 10.0-50.0 [facility] ([place]) Comment on above: Performed By: #### C BC, ADIFF, ANEU #### [place] [address] #### TROP, BMP, TSH, GFR #### [address] [address] Monocytes/100 WBC (Bld) 8.0 % Normal 1.7-13.0 [facility] ([place]) Comment on above: Performed By: #### C BC, ADIFF, ANEU #### [place] [address] #### TROP, BMP, TSH, GFR #### [address] [address] Neutrophils/100 WBC (Bld) 74.4 % Normal 37.0-80.0 [facility] ([place]) Comment on above: Performed By: #### C BC, ADIFF, ANEU #### [place] [address] #### TROP, BMP, TSH, GFR #### [address] [address] .GFRon 08-09-2019 GFR 39 ml/min/1.73sqm Normal [facility] ([place]) Comment on above: Result Comment: GFR [...] #### B MP, MG, GFR, VIDH, B12 ####[address] [address] GFR Non- 32 ml/min/1.73sqm Normal [facility] ([place]) Comment on above: Result Comment: GFR Population [...] #### B MP, MG, GFR, VIDH, B12 ####[address] [address] GFR Non- 31 ml/min/1.73sqm Normal [facility] ([place]) Comment on above: Result Comment: GFR Population [...] By: #### C BC, ADIFF, ANEU #### [address] [address] #### TROP, BMP, TSH, GFR #### [address] [address] GFR 37 ml/min/1.73sqm Normal [facility] ([place]) Comment on above: Result Comment: GFR Population [...] By: #### C BC, ADIFF, ANEU #### [place] [id number] #### TROP, BMP, TSH, GFR #### [address] [address] .NEUABSon 08-09-2019 Neutrophils (Bld) [#/Vol] 3.80 10 3/mcL Normal 2.85-6.16 [facility] ([place]) Comment on above: Performed By: #### C BC, ADIFF, ANEU #### [place] [address] #### TROP, BMP, TSH, GFR #### [address] [address] .Urinalysis Microscopic (AO) on 08-09-2019 RBC (U) [#/Vol] 0-5 Abnormal None Seen [facility] ([place]) Comment on above: Performed By: #### U A, UAMICAO ####[place] [address] UA Squam Epithelial None Seen Normal None Seen [facility] ([place]) Comment on above: Performed By: #### U A, UAMICAO ####[place] [address] UA WBC 0-5 Abnormal None Seen [facility] ([place]) Comment on above: Performed By: #### U A, UAMICAO ####[place] [address] B12on 08-09-2019 Cobalamin (Vitamin B12) [Mass/Vol] 336 pg/mL Normal 211-911 [facility] ([place]) Comment on above: Performed By: #### B MP, MG, GFR, VIDH, B12 ####[place] [address] BMPon 08-09-2019 Calcium [Mass/Vol] 8.7 mg/dL Normal 8.4-10.2 [facility] ([place]) Comment on above: Performed By: #### B MP, MG, GFR, VIDH, B12 ####[place] [address] Chloride [Moles/Vol] 106 mmol/L Normal 98-107 [facility] ([place]) Comment on above: Performed By: #### B MP, MG, GFR, VIDH, B12 ####[place] [address] CO2 [Moles/Vol] 32 mmol/L High 23-31 [facility] ([place]) Comment on above: Performed By: #### B MP, MG, GFR, VIDH, B12 ####[place] [address] Creatinine [Mass/Vol] 2.03 mg/dL High 0.70-1.30 [facility] ([place]) Comment on above: Performed By: #### B MP, MG, GFR, VIDH, B12 ####[place] [address] Electrolyte Balance 3.0 mEq/L Normal [facility] ([place]) Comment on above: Performed By: #### B MP, MG, GFR, VIDH, B12 ####[address] [address] Glucose [Mass/Vol] 91 mg/dL Normal 83-110 [facility] ([place]) Comment on above: Performed By: #### B MP, MG, GFR, VIDH, B12 ####[address] [address] Potassium [Moles/Vol] 4.5 mmol/L Normal 3.5-5.1 [facility] ([place]) Comment on above: Performed By: #### B MP, MG, GFR, VIDH, B12 ####[address] [address] Sodium [Moles/Vol] 141 mmol/L Normal 136-145 [facility] ([place]) Comment on above: Performed By: #### B MP, MG, GFR, VIDH, B12 ####[address] [address] Urea nitrogen [Mass/Vol] 46 mg/dL High 7-18 [facility] ([place]) Comment on above: Performed By: #### B MP, MG, GFR, VIDH, B12 ####[address] [address] Urea nitrogen/Creatinine [Mass ratio] 23 ratio Normal 7-27 [facility] ([place]) Comment on above: Performed By: #### B MP, MG, GFR, VIDH, B12 ####[address] [address] Calcium [Mass/Vol] 9.6 mg/dL Normal 8.4-10.2 [facility] ([place]) Comment on above: Performed By: #### C BC, ADIFF, ANEU #### [address] [address] #### TROP, BMP, TSH, GFR #### [address] [address] Chloride [Moles/Vol] 104 mmol/L Normal 98-107 [facility] ([place]) Comment on above: Performed By: #### C BC, ADIFF, ANEU #### [address] [address] #### TROP, BMP, TSH, GFR #### [address] [address] CO2 [Moles/Vol] 29 mmol/L Normal 23-31 [facility] ([place]) Comment on above: Performed By: #### C BC, ADIFF, ANEU #### [address] [address] #### TROP, BMP, TSH, GFR #### [address] [address] Creatinine [Mass/Vol] 2.12 mg/dL High 0.70-1.30 [facility] ([place]) Comment on above: Performed By: #### C BC, ADIFF, ANEU #### [place] [address] #### TROP, BMP, TSH, GFR #### [address] [address] Electrolyte Balance 8.0 mEq/L Normal [facility] ([place]) Comment on above: Performed By: #### C BC, ADIFF, ANEU #### [place] [address] #### TROP, BMP, TSH, GFR #### [address] [address] Glucose [Mass/Vol] 92 mg/dL Normal 83-110 [facility] ([place]) Comment on above: Performed By: #### C BC, ADIFF, ANEU #### [address] [address] #### TROP, BMP, TSH, GFR #### [address] [address] Potassium [Moles/Vol] 4.2 mmol/L Normal 3.5-5.1 [facility] ([place]) Comment on above: Performed By: #### C BC, ADIFF, ANEU #### [place] [id number] #### TROP, BMP, TSH, GFR #### [address] [address] Sodium [Moles/Vol] 141 mmol/L Normal 136-145 [facility] ([place]) Comment on above: Performed By: #### C BC, ADIFF, ANEU #### [address] [address] #### TROP, BMP, TSH, GFR #### [address] [address] Urea nitrogen [Mass/Vol] 47 mg/dL High 7-18 [facility] ([place]) Comment on above: Performed By: #### C BC, ADIFF, ANEU #### [address] [address] #### TROP, BMP, TSH, GFR #### [address] [address] Urea nitrogen/Creatinine [Mass ratio] 22 ratio Normal 12-07 [facility] ([place]) Comment on above: Performed By: #### C BC, ADIFF, ANEU #### [address] [address] #### TROP, BMP, TSH, GFR #### [address] [address] CBCon 08-09-2019 Erythrocyte distribution width (RBC) [Ratio] 13.0 % Normal 11.5-14.5 [facility] ([place]) Comment on above: Performed By: #### C BC, ADIFF, ANEU #### [address] [address] #### TROP, BMP, TSH, GFR #### [address] [address] Hematocrit (Bld) [Volume fraction] 41.5 % Low 42.0-52.0 [facility] ([place]) Comment on above: Performed By: #### C BC, ADIFF, ANEU #### [address] [address] #### TROP, BMP, TSH, GFR #### [place] [address] Hemoglobin (Bld) [Mass/Vol] 14.4 G/dL Normal 14.0-18.0 [facility] ([place]) Comment on above: Performed By: #### C BC, ADIFF, ANEU #### [place] [address] #### TROP, BMP, TSH, GFR #### [place] [address] MCH (RBC) [Entitic mass] 31.6 pg High 27.0-31.2 [facility] ([place]) Comment on above: Performed By: #### C BC, ADIFF, ANEU #### [place] [address] #### TROP, BMP, TSH, GFR #### [place] [address] MCHC (RBC) [Mass/Vol] 34.7 G/dL Normal 31.8-35.4 [facility] ([place]) Comment on above: Performed By: #### C BC, ADIFF, ANEU #### [place] [address] #### TROP, BMP, TSH, GFR #### [place] [address] MCV (RBC) [Entitic vol] 91.0 fL Normal 80.0-94.0 A [facility] ([place]) Comment on above: Performed By: #### C BC, ADIFF, ANEU #### [place] [address] #### TROP, BMP, TSH, GFR #### [place] [address] Platelet mean volume (Bld) [Entitic vol] 7.6 fL Normal 7.4-10.4 [facility] ([place]) Comment on above: Performed By: #### C BC, ADIFF, ANEU #### [place] [address] #### TROP, BMP, TSH, GFR #### [address] [address] Platelets (Bld) [#/Vol] 168 10 3/mcL Normal 130-400 [facility] ([place]) Comment on above: Performed By: #### C BC, ADIFF, ANEU #### [address] [address] #### TROP, BMP, TSH, GFR #### [address] [address] RBC (Bld) [#/Vol] 4.56 10 6/mcL Normal 4.04-6.13 [facility] ([place]) Comment on above: Performed By: #### C BC, ADIFF, ANEU #### [address] [address] #### TROP, BMP, TSH, GFR #### [address] [address] WBC (Bld) [#/Vol] 5.10 10 3/mcL Normal 4.60-10.80 [facility] ([place]) Comment on above: Performed By: #### C BC, ADIFF, ANEU #### [address] [address] #### TROP, BMP, TSH, GFR #### [address] [address] [address] HEAD OR BRAIN W/O CONTRAS Ton [...] Date: 08/09/2019 12:01:05 AM Ordering Provider:Robert Adame [facility] ([place]) MGon 08-09-2019 Magnesium [Mass/Vol] 1.8 mg/dL Normal 1.8-2.4 [facility]) Comment on above: Performed By: #### B MP, MG, GFR, VIDH, B12 ####[address] [address] TROPon 08-09-2019 Troponin I.cardiac [Mass/Vol] ng/mL Normal 0.000-0.040 [facility] ([place]) Comment on above: Result Comment: Trop onin I reference range: 0.00-0.040 ng/mL Negative and non-diagnostic. >0.040 ng/mL Consistent with cardiac damage, increased clinical risk and possibility of myocardial infarction. Serial measurements, a rise & fall in test results, clinical history, appropriate symptoms and/or ECG changes may help assess possibility of [place]. *Other non-acute coronary syndrome conditions such as CHF, myocarditis, pulmonary emboli, sepsis and cardiac surgery could result in myocardial damage and increased troponin levels. Performed By: #### C BC, ADIFF, ANEU #### [place] [address] [address] #### TROP, BMP, TSH, GFR #### [place] [id number] [place] [id number] TSHon 08-09-2019 TSH Qn 1.72 mcIU/mL Normal 0.36-3.74 [facility] ([place]) Comment on above: Performed By: #### C BC, ADIFF, ANEU #### [address] [address] #### TROP, BMP, TSH, GFR #### [address] [address] UAon 08-09-2019 Color (U) Yellow Normal [facility] ([place]) Comment on above: Performed By: #### U A, UAMICAO ####[place] [address] Glucose (U) [Mass/Vol] Negative Normal Negative [facility] ([place]) Comment on above: Performed By: #### U A, UAMICAO ####[place] [address] Ketones Ql (U) Trace Abnormal Negative [facility] ([place]) Comment on above: Performed By: #### U A, UAMICAO ####[place] [address] UA Appear Clear Normal Clear [facility] ([place]) Comment on above: Performed By: #### U A, UAMICAO ####[place] [address] UA Blood Small Abnormal Negative [facility] ([place]) Comment on above: Performed By: #### U A, UAMICAO ####[place] [address] UA Leuk Est Trace Abnormal Negative [facility] ([place]) Comment on above: Performed By: #### U A, UAMICAO ####[place] [address] UA Nitrite Negative Normal Negative [facility] ([place]) Comment on above: Performed By: #### U A, UAMICAO ####[place] [address] UA pH 5.0 Normal 5.0 - 8.0 [facility] ([place]) Comment on above: Performed By: #### U A, UAMICAO ####[place] [address] UA Protein Negative Normal Negative [facility] ([place]) Comment on above: Performed By: #### U A UAMICAO ####[place] [address] UA Spec Grav 1.025 Normal 1.015-1.025 [facility] ([place]) Comment on above: Performed By: #### U A UAMICAO ####[place] [address] UA Specimen Type Clean Catch Normal [facility] ([place]) Comment on above: Performed By: #### U A UAMICAO ####[place] [address] UA Urobilinogen 0.2 E.U./dL Normal 0.2-1.0 [facility] ([place]) Comment on above: Performed By: #### U A UAMICAO ####[place] [address] Urobilinogen Qn (U) Negative Normal Negative [facility] ([place]) Comment on above: Performed By: #### U A UAMICAO ####[place] [address] VIDHon 08-09-2019 Vit. D 25-Hydroxy 118 ng/mL Normal [facility] ([place]) Comment on above: Result Comment: Inte rpretive Values Based on Total 25(OH)D: Severe Deficiency <20 ng/mL Mild to Moderate Deficiency 20-30 ng/mL Optimum Levels 30-100 ng/mL Toxicity Possible >100 ng/mL Performed By: #### B MP, MG, GFR, VIDH, B12 ####[place] [address] XR CHEST 1 VIEWon 08-09-2019 XR CHEST [...] Date: 08/08/2019 11:57:53 PM Ordering Provider:Robert Adame [facility] ([place]) US GROIN LEFTon 08-29-2018 US GROIN LEFT [...] 3:00:36 PM Sign Date: 08/29/2018 3:01:42 PM [facility] ([place]) XR RIBS 2 VIEWS RIGHT/PA PASQUALE ST(AO)on [...] 4:30:13 PM Sign Date: 08/29/2018 4:30:51 PM [facility] ([place]) Vital Signs Date Time Vital Sign Value Performing Clinician Faci lity 10-08-2024 14:25-0400 Body height 180.[address] Guilherme Butt MD Work Phone: [facility] 10-08-2024 14:25-0400 Body mass index (BMI) [Ratio] 25.7 kg/m2 Dr. Guilherme Butt MD Work Phone: [facility] 10-08-2024 14:25-0400 Body weight 83.[address] Guilherme Butt MD Work Phone: [facility] 10-08-2024 14:25-0400 Diastolic blood pressure 66 mm[Hg] Dr. Guilherme Butt MD Work Phone: [facility] 10-08-2024 14:25-0400 Heart rate 80 /min Dr. Guilherme Butt MD Work Phone: [facility] 10-08-2024 14:25-0400 Respiratory rate 18 /min Dr. Guilherme Butt MD Work Phone: [facility] 10-08-2024 14:25-0400 Systolic blood pressure 96 mm[Hg] Dr. Guilherme Butt MD Work Phone: [facility] 03-12-2023 13:59-0400 Body height 180.[address] Guilherme Butt Work Phone: [facility] 02-12-2023 16:01-0400 Diastolic blood pressure 76 mm[Hg] Dr. Guilherme Butt Work Phone: [facility] 02-12-2023 16:01-0400 Systolic blood pressure 131 mm[Hg] Dr. Guilherme Butt Work Phone: [facility] 02-12-2023 14:24-0400 Body temperature 97.8 [degF] Dr. Guilherme Butt Work Phone: [facility] 02-12-2023 14:24-0400 Heart rate 68 /min Dr. Guilherme Butt Work Phone: [facility] 02-12-2023 14:24-0400 Respiratory rate 18 /min Dr. Guilherme Butt Work Phone: [facility] 02-12-2023 14:24-0400 SaO2% (BldA) [Mass fraction] 93 % Dr. Guilherme Butt Work Phone: [facility] 02-12-2023 14:00-0400 Inhaled oxygen flow rate 3 L/min Dr. Guilherme Butt Work Phone: [facility] 02-12-2023 09:26-0400 Body height 180.[address] Guilherme Butt Work Phone: [facility] 02-12-2023 09:26-0400 Body mass index (BMI) [Ratio] 25.4 kg/m2 Dr. Guilherme Butt Work Phone: [facility] 02-12-2023 09:26-0400 Body weight 82.[address] Guilherme Butt Work Phone: [facility] 01-11-2023 14:37-0400 Body mass index (BMI) [Ratio] 24.9 kg/m2 Dr. Guilherme Butt Work Phone: [facility] 01-11-2023 14:37-0400 Body weight 83.[address] Guilherme Butt Work Phone: [facility] 01-11-2023 14:37-0400 Diastolic blood pressure 85 mm[Hg] Dr. Guilherme Butt Work Phone: [facility] 01-11-2023 14:37-0400 Respiratory rate 16 /min Dr. Guilherme Butt Work Phone: [facility] 01-11-2023 14:37-0400 Systolic blood pressure 130 mm[Hg] Dr. Guilherme Butt Work Phone: [facility] 09-04-2022 10:58-0400 Body height 182.[address] Guilherme Butt Work Phone: [facility] 09-04-2022 10:58-0400 Body mass index (BMI) [Ratio] 24.7 kg/m2 Dr. Guilherme Butt Work Phone: [facility] 09-04-2022 10:58-0400 Body weight 82.[address] Guilherme Butt Work Phone: [facility] 09-04-2022 10:58-0400 Diastolic blood pressure 48 mm[Hg] Dr. Guilherme Butt Work Phone: [facility] 09-04-2022 10:58-0400 Heart rate 84 /min Dr. Guilherme Butt Work Phone: [facility] 09-04-2022 10:58-0400 Respiratory rate 16 /min Dr. Guilherme Butt Work Phone: [facility] 09-04-2022 10:58-0400 Systolic blood pressure 80 mm[Hg] Dr. Guilherme Butt Work Phone: [facility] 08-02-2022 07:41-0400 Diastolic blood pressure 79 mm[Hg] Dr. Guilherme Butt Work Phone: [facility] 08-02-2022 07:41-0400 Heart rate 71 /min Dr. Guilherme Butt Work Phone: [facility] 08-02-2022 07:41-0400 Respiratory rate 16 /min Dr. Guilherme Butt Work Phone: [facility] 08-02-2022 07:41-0400 SaO2% (BldA) [Mass fraction] 97 % Dr. Guilherme Butt Work Phone: [facility] 03-22-2023 07:41-0400 Systolic blood pressure 114 mm[Hg] Dr. Guilherme Butt Work Phone: [facility] 08-02-2022 07:08-0400 Body height 182.[address] Guilherme Butt Work Phone: [facility] 08-02-2022 07:08-0400 Body mass index (BMI) [Ratio] 25.2 kg/m2 Dr. Guilherme Butt Work Phone: [facility] 08-02-2022 07:08-0400 Body temperature 98 [degF] Dr. Guilherme Butt Work Phone: [facility] 08-02-2022 07:08-0400 Body weight 84.[address] Guilherme Butt Work Phone: [facility] 05-22-2022 13:15-0500 Body height 182.[address] Guilherme Butt Work Phone: [facility] 04-03-2022 15:00-0500 Diastolic blood pressure 73 mm[Hg] Dr. Guilherme Butt Work Phone: [facility] 04-03-2022 15:00-0500 Heart rate 58 /min Dr. Guilherme Butt Work Phone: [facility] 04-03-2022 15:00-0500 Respiratory rate 15 /min Dr. Guilherme Butt Work Phone: [facility] 04-03-2022 15:00-0500 SaO2% (BldA) [Mass fraction] 95 % Dr. Guilherme Butt Work Phone: [facility] 04-03-2022 15:00-0500 Systolic blood pressure 138 mm[Hg] Dr. Guilherme Butt Work Phone: [facility] 04-03-2022 13:00-0500 Body temperature 97.8 [degF] Dr. Guilherme Butt Work Phone: [facility] 04-03-2022 10:08-0500 Body mass index (BMI) [Ratio] 24.9 kg/m2 Dr. Guilherme Butt Work Phone: [facility] 04-03-2022 10:08-0500 Body weight 83.[address] Guilherme Butt Work Phone: [facility] 10-03-2021 00:46-0400 Diastolic blood pressure 80 mm[Hg] AXEL-Devan Gray [facility] Work Phone: 10-03-2021 00:46-0400 Heart rate 91 /min AXEL-Devan Gray [facility] Work Phone: 10-03-2021 00:46-0400 Respiratory rate 16 /min AXEL-Devan Gray [facility] Work Phone: 10-03-2021 00:46-0400 SaO2% (BldA) [Mass fraction] 95 % BILLING REP-Devan Gray [facility] Work Phone: 10-03-2021 00:46-0400 Systolic blood pressure 160 mm[Hg] AXEL-Devan Gray [facility] Work Phone: 10-02-2021 20:20-0400 Body height 177.8 cm TIFFANY Gray [facility] Work Phone: 10-02-2021 20:20-0400 Body mass index (BMI) [Ratio] 27.8 kg/m2 AXEL-Devan Gray [facility] Work Phone: 10-02-2021 20:20-0400 Body temperature 98.7 [degF] AXEL-Devan Gray [facility] Work Phone: 10-02-2021 20:20-0400 Body weight 88 kg TIFFANY Gray [facility] Work Phone: Encounters Encounter Date Encounter Type Care Provider Facility Start: 10-08-2024 End: 10-08-[address] Dwain Yen MD -[facility] Work Phone: Start: 10-08-2024 End: 10-08-[address] Guilherme Butt MD Work Phone: [facility] Work Phone: Start: 09-19-2024 End: 09-19-[address] Guilherme Butt MD Work Phone: [facility] Work Phone: Start: 09-19-2024 End: 09-19-2024 Departed Referred Guilherme Butt MD -[facility] Start: 09-19-2024 Registered Referred Guilherme Butt MD [facility] Start: 09-19-2024 End: 09-19-2024 ambulatory Guilherme SHI Facility:[facility] Start: 08-22-2024 End: 08-22-[address] Guilherme Butt MD Work Phone: [facility] Work Phone: Start: 08-22-2024 End: 08-22-2024 Departed Referred Cecy ALLEN -[facility] Start: 08-22-2024 End: 08-22-2024 ambulatory Cecy SHI Facility:[facility] Start: 07-29-2024 End: 07-29-2024 ambulatory Guilherme Butt Facility:[facility] Start: 07-29-2024 End: 07-29-[address] Guilherme Butt MD -[facility] Work Phone: Start: 07-25-2024 End: 07-25-[address] Guilherme Butt MD Work Phone: [facility] Work Phone: Start: 07-25-2024 End: 07-25-2024 [facility] Start: 07-25-2024 End: 07-25-2024 ambulatory Efewongbe Yonasmariane OLS Facility:[facility] Start: 07-03-2024 End: 07-03-2024 ambulatory Efewongbe Oleghe Facility:[facility] Start: 07-03-2024 End: 07-03-2024 Patient encounter procedure Camilo AGRAWAL -[facility] Work Phone: Start: 06-27-2024 ambulatory Efewongbe Oleghe OLS Fa cility:[facility] Start: 06-27-2024 [facility] Start: 05-27-2024 End: 05-27-2024 ambulatory Efewongbe Yonasmariane Facility:[facility] Start: 05-27-2024 End: 05-27-[address] Guilherme Butt MD -[facility] Work Phone: Start: 05-23-2024 End: 05-23-2024 [facility] Start: 05-23-2024 End: 05-23-2024 ambulatory Efewongbe Travise OLS Facility:[facility] Start: 04-25-2024 End: 04-25-2024 [facility] Start: 04-25-2024 End: 04-25-2024 ambulatory Efewongbe Travise OLS Facility:[facility] Start: 04-15-2024 End: 04-15-2024 ambulatory Efewongbe Olemariane Facility:[facility] Start: 03-20-2024 End: 03-21-2024 ambulatory Efewongbe Olemariane Facility:[facility] Start: 02-22-2024 ambulatory Efewongbe Oleghe Facili ty:[facility] Start: 02-15-2024 End: 02-15-2024 ambulatory Cecy Gray NP Facility:[facility] Start: 01-29-2024 End: 01-29-2024 ambulatory Efewongbe Oleghe Facility:[facility] Start: 01-25-2024 ambulatory Reillybe Travise Facili ty:[facility] Start: 01-10-2024 ambulatory Efkieranatkinsonbe Travise Facili ty:[facility] Start: 01-08-2024 End: 01-08-2024 ambulatory Reillybe Oleghe Facility:[facility] Start: 12-21-2023 ambulatory Kellyatkinsondmitri Roblese OLS Fa cility:[facility] Start: 11-27-2023 End: 11-27-2023 ambulatory Kellyatkinsondmitri Olemariane Facility:[facility] Start: 11-23-2023 End: 11-23-2023 ambulatory Cecy Gray OLS Facility:[facility] Start: 11-08-2023 End: 11-08-2023 ambulatory Cecy Gray BILLING REP Facility:[facility] Start: 10-26-2023 End: 10-26-2023 ambulatory Cecyhan Gray OLS Facility:[facility] Start: 09-06-2023 End: 09-06-[address] Guilherme Butt Work Phone: [facility] Work Phone: Start: 08-24-2023 End: 08-24-[address] Guilherme Butt Work Phone: [facility] Work Phone: Start: 08-24-2023 End: 08-24-[address] Guilherme Butt Work Phone: [facility] Start: 07-24-2023 End: 07-24-[address] Guilherme Butt Work Phone: [facility] Work Phone: Start: 07-20-2023 End: 07-20-[address] Guilherme Butt Work Phone: [facility] Work Phone: Start: 07-20-2023 End: 07-20-[address] Guilherme Butt Work Phone: [facility] Start: 07-05-2023 End: 07-05-[address] Guilherme Butt Work Phone: [facility] Work Phone: Start: 06-22-2023 End: 06-22-[address] Guilherme Butt Work Phone: [facility] Start: 05-29-2023 End: 05-29-[address] Guilherme Butt Work Phone: [facility] Work Phone: Start: 05-25-2023 End: 05-25-[address] Guilherme Butt Work Phone: [facility] Work Phone: Start: 05-25-2023 End: 05-25-[address] Guilherme Butt Work Phone: [facility] Start: 04-20-2023 End: 04-20-[address] Guilherme Butt Work Phone: [facility] Start: 04-16-2023 End: 04-16-[address] Guilherme Butt Work Phone: [facility] Work Phone: Start: 03-27-2023 End: 03-27-[address] Guilherme Butt Work Phone: [facility] Work Phone: Start: 03-23-2023 End: 03-23-[address] Guilherme Butt Work Phone: [facility] Work Phone: Start: 03-23-2023 End: 03-23-[address] Guilherme Butt Work Phone: [facility] Start: 03-07-2023 End: 03-07-[address] Guilherme Butt Work Phone: [facility] Work Phone: Start: 02-23-2023 End: 02-23-[address] Guilherme Butt Work Phone: [facility] Work Phone: Start: 02-23-2023 End: 02-23-[address] Guilherme Butt Work Phone: [facility] Start: 02-13-2023 End: 02-13-[address] Guilherme Butt Work Phone: [facility] Work Phone: Start: 02-12-2023 Non-patient / Non-visit Dr. Roselia Butt Work Phone: [facility] Start: 02-12-2023 End: 02-12-2023 Admission to same day surgery center Dr. Guilherme Butt Work Phone: [facility] Start: 02-12-2023 End: 02-12-[address] Guilherme Butt Work Phone: [facility] Work Phone: Start: 02-06-2023 End: 02-06-[address] Guilherme Butt Work Phone: [facility] Start: 02-06-[address] Ann Butt Work Phone: [facility] Start: 01-30-2023 End: 01-30-[address] Guilherme Butt Work Phone: [facility] Work Phone: Start: 01-19-2023 End: 01-19-[address] Guilherme Butt Work Phone: [facility] Start: 01-11-2023 End: 01-11-[address] Guilherme Butt Work Phone: [facility] Work Phone: Start: 01-03-2023 End: 01-03-[address] Guilherme Butt Work Phone: [facility] Work Phone: Start: 12-22-2022 End: 12-22-[address] Guilherme Butt Work Phone: [facility] Work Phone: Start: 12-22-2022 End: 12-22-[address] Guilherme Butt Work Phone: [facility] Start: 12-22-[address] Ann Butt Work Phone: [facility] Start: 11-28-2022 End: 11-28-[address] Guilherme Butt Work Phone: [facility] Work Phone: Start: 11-24-2022 End: 11-24-[address] Guilherme Butt Work Phone: [facility] Work Phone: Start: 11-24-2022 End: 11-24-[address] Guilherme Butt Work Phone: [facility] Start: 11-24-[address] Ann Butt Work Phone: [facility] Start: 11-08-2022 End: 11-08-[address] Guilherme Butt Work Phone: [facility] Work Phone: Start: 10-20-2022 End: 10-20-[address] Guilherme Butt Work Phone: [facility] Work Phone: Start: 10-20-2022 End: 10-20-[address] Guilherme Butt Work Phone: [facility] Start: 10-03-2022 End: 10-03-[address] Guilherme Butt Work Phone: [facility] Work Phone: Start: 09-22-2022 End: 09-22-[address] Guilherme Butt Work Phone: [facility] Start: 09-21-2022 Non-patient / Non-visit Dr. Roselia Butt Work Phone: [facility] Start: 09-21-2022 End: 09-21-[address] Guilherme Butt Work Phone: [facility] Work Phone: Start: 09-04-2022 End: 09-04-[address] Guilherme Butt Work Phone: [facility] Start: 08-25-2022 End: 08-25-[address] Guilherme Butt Work Phone: [facility] Work Phone: Start: 08-25-2022 End: 08-25-[address] Guilherme Butt Work Phone: [facility] Start: 08-23-2022 Non-patient / Non-visit Dr. Roselia Butt Work Phone: [facility] Start: 08-10-2022 End: 08-10-[address] Guilherme Butt Work Phone: [facility] Start: 08-02-2022 End: 08-02-[address] Guilherme Butt Work Phone: [facility] Start: 08-02-2022 End: 08-02-2022 Emergency department patient visit Dr. Guilherme Butt Work Phone: [facility] Start: 07-25-2022 End: 07-25-[address] Guilherme Butt Work Phone: [facility] Start: 07-21-2022 End: 07-21-[address] Guilherme Butt Work Phone: [facility] Work Phone: Start: 07-21-2022 End: 07-21-[address] Guilherme Butt Work Phone: [facility] Start: 07-21-[address] Ann Butt Work Phone: [facility] Start: 06-27-2022 End: 06-27-[address] Guilherme Butt Work Phone: [facility] Start: 06-23-2022 End: 06-23-[address] Guilherme Butt Work Phone: [facility] Work Phone: Start: 06-23-2022 End: 06-23-[address] Guilherme Butt Work Phone: [facility] Start: 06-23-[address] Ann Butt Work Phone: [facility] Start: 06-06-2022 End: 06-06-[address] Guilherme Butt Work Phone: [facility] Start: 05-26-2022 End: 05-26-[address] Guilherme Butt Work Phone: [facility] Work Phone: Start: 05-26-2022 End: 05-26-[address] Guilherme Butt Work Phone: [facility] Start: 05-26-[address] Ann Butt Work Phone: [facility] Start: 05-18-2022 End: 05-18-[address] Guilherme Butt Work Phone: [facility] Start: 05-02-2022 End: 05-02-[address] Guilherme Butt Work Phone: [facility] Start: 04-21-2022 End: 04-21-[address] Guilherme Butt Work Phone: [facility] Work Phone: Start: 04-21-2022 End: 04-21-[address] Guilherme Butt Work Phone: [facility] Start: 04-21-[address] Ann Butt Work Phone: [facility] Start: 04-04-2022 End: 04-04-[address] Guilherme Butt Work Phone: [facility] Start: 04-03-2022 End: 04-03-[address] Guilherme Butt Work Phone: [facility] Start: 04-03-2022 End: 04-03-2022 Emergency department patient visit Dr. Guilherme Butt Work Phone: [facility] Start: 03-28-2022 End: 03-28-[address] Guilherme Butt Work Phone: [facility] Start: 03-24-2022 End: 03-24-[address] Guilherme Butt Work Phone: [facility] Work Phone: Start: 03-24-2022 End: 03-24-[address] Guilherme Butt Work Phone: [facility] Start: 02-24-2022 End: 02-24-[address] Guilherme Butt Work Phone: [facility] Start: 02-24-[address] Maikel allen Work Phone: [phone] [address] Start: 02-07-2022 End: 02-07-[address] Maikel Mosquera Work Phone: [phone] [place] [address] Work Phone: Start: 02-07-2022 End: 02-07-[address] Maikel Mosquera Work Phone: [phone] [place] [address] Start: 02-07-[address] Maikel allen Work Phone: [phone] [place] [address] Start: 01-20-2022 End: 01-20-[address] Maikel Mosquera Work Phone: [phone] [place] [address] Work Phone: Start: 01-20-2022 End: 01-20-[address] Maikel Mosquera Work Phone: [phone] [place] [address] Start: 12-23-2021 End: 12-23-[address] Maikel Mosquera Work Phone: [phone] [place] [address] Work Phone: Start: 12-23-2021 End: 12-23-[address] Maikel Mosquera Work Phone: [phone] [place] [address] Start: 12-12-2021 End: 12-12-[address] Maikel Mosquera Work Phone: [facility] Start: 11-18-2021 End: 11-18-2021 Departed Referred BILLING REP-Devan Gray BILLING REP [facility] Start: 10-21-2021 End: 10-21-2021 Departed Referred BILLING REP-Devan Gray BILLING REP [facility] Start: 10-02-2021 End: 10-03-2021 Emergency department patient visit BILLING REP-Devan Gray BILLING REP [facility] Start: 09-23-2021 End: 09-23-2021 Departed Referred BILLING REP-C Cecy Gray NP [facility] Start: 09-23-2021 Registered Referred BILLING REPRobi Gray NP [facility] Start: 09-19-2021 End: 09-19-2021 Patient encounter procedure BILLING REP-Devan Gray NP [facility] Start: 08-19-2021 End: 08-19-2021 Departed Referred [facility] Start: 08-19-2021 Registered Referred [facility] Start: 07-22-2021 End: 07-22-2021 Departed Referred [facility] Start: 07-22-2021 Registered Referred [facility] Start: 06-24-2021 End: 06-24-2021 Departed Referred [facility] Start: 05-27-2021 End: 05-27-2021 Departed Referred [facility] Procedures Date Procedure Procedure Detail Performing Clinician Start: 06-27-2024 Measurement of renal function Dr. Guilherme Butt MD Work Phone: Comment on above: GFR Calc Start: 05-23-2024 Measurement of renal function Dr. Guilherme Butt MD Work Phone: Comment on above: GFR Calc Start: 02-12-2023 Lap Robotic Inguinal Hernia (Bilateral) Dr. Guilherme Butt Work Phone: Start: 09-21-2022 Cardiovascular stres s test using pharmacologic stress agent Dr. Guilherme Butt Work Phone: Start: 04-03-2022 Plain chest X-ray Dr. Jessenia Butt Work Phone: Start: 10-02-2021 CT of head without contrast TIFFANY Gray NP Plan of Treatment Date Care Activity Detail Author Start: 02-12-2023 Anesthesia intraperi toneal lower abd w/laps nos ANESTH SURG LOWER ABDOMEN [facility] Start: 02-12-2023 Laparoscopy surg rpr initial inguinal hernia LAP ING HERNIA REPAIR INIT [facility] Start: 02-12-2023 Patient discharge [facility] Start: 02-12-2023 [facility] NM Heart Views W str ess and W radionuclide IV [facility] Patient Education [facility] Work Phone: Patient referral [facility] Work Phone: [facility] Payers Date Payer Category Payer Self-pay [id number] 2023 Unknown [id number] 2023 Unknown [id number] 2014 Unknown [id number] Medicare [id number] Unknown [id number] Unknown [id number] 2.16.8 40.1.893442.3.579.2.462 Unknown [id number] 2.16.8 40.1.364421.3.579.2.462 Unknown [id number] 2.16.8 40.1.142588.3.579.2.462 Unknown [id number] 2.16.8 40.1.465371.3.579.2.462 Unknown [id number] 2.16.8 40.1.028283.3.579.2.462 Unknown [id number] 2.16.8 40.1.178341.3.579.2.462 Unknown [id number] 2.16.8 40.1.544379.3.579.2.462 Unknown [id number] 2.16.8 40.1.434681.3.579.2.462 Unknown [id number] 2.16.8 40.1.337275.3.579.2.462 Unknown [id number] 2.16.8 40.1.352160.3.579.2.462 Unknown [id number] 2.16.8 40.1.305624.3.579.2.462 Unknown [id number] 2.16.8 40.1.611074.3.579.2.462 Unknown [id number] 2.16.8 40.1.933529.3.579.2.462 Unknown [id number] 2.16.8 40.1.696539.3.579.2.462 Unknown [id number] 2.16.8 40.1.891443.3.579.2.462 Unknown [id number] 2.16.8 40.1.670397.3.579.2.462 Unknown [id number] 2.16.8 40.1.031610.3.579.2.462 Unknown [id number] 2.16.8 40.1.701699.3.579.2.462 Unknown [id number] 2.16.8 40.1.281866.3.579.2.462 Unknown [id number] 2.16.8 40.1.914086.3.579.2.462 Unknown [id number] 2.16.8 40.1.877862.3.579.2.462 Unknown [id number] 2.16.8 40.1.249813.3.579.2.462 Unknown [id number] 2.16.8 40.1.907515.3.579.2.462 Unknown [id number] 2.16.8 40.1.281706.3.579.2.462 Social History Date Type Detail Facility Start: 07-24-2016 End: 03-12-2023 Tobacco smoking status LAIS Unknown if ever smoked [facility] Start: 04-21-2021 None [facility] Start: 12-09-2021 Non-smoker [facility] Start: 1945 Sex Assigned At Male [facility] Start: 03-12-2023 Tobacco smoking stat us NHIS Ex-smoker (finding) [facility] Start: 08-15-2024 Sex Male (finding) [facility] Medical Equipment Procedure Code Equipment Code Equipment Origin al Text Equipment Identifier Dates Extra-gynaecolog ical surgical mesh, composite-polymer [id number] FDA Start: 02-12-2023 Goals Date Patient Goal Desired Activity /State Mental Status Date Assessment Result Facility 02-12-2023 Cognitive function Level Of Cons ciousness Follows Commands;Drowsy [facility] Work Phone: 04-03-2022 Cognitive function Level Of Cons ciousness Awake;Alert;Appropriate [facility] Work Phone: 10-02-2021 Cognitive function Voice/Name [facility] Work Phone: Clinical Notes 11-11-2005 to 10-08-2024 Note Date & Type Note Facility 10-08-2024 Progress note [facility] 10-08-2024 Progress note Note Date/Time October 08, 2024 2:43pm [facility] [address] [place] [address] OFFICE VISIT Date of Service: 10/08/24 MR#: [id number] Acct: [id number] Name: IGOR CRUZ Rep #: [id number] : 1945 Provider: Dr. Isai Yen MD Age/Sex: 79/M Location: [facility] Status: Signed HPI HPI History of Present [...] Source NIBP Intake Visit Reasons: OVER DUE Courtroom Reporter Required: No Accompanied by: Self Is patient [...] bisacodyl 10 mg rectal suppository 10 mg [place] DAILY PRN constipation 09/04/22 10/08/24 History carbidopa [...] stress test Hypertension Kidney disease Lives in assisted Parkinson disease Parkinson's disease Syncope Valvular heart [...] and replacement of a hemisheild graft @ [facility] 11/21/05 Plan: Repeat echocardiogram. (3) Parkinson's disease: [...] applicable) CC: Dr. Guilherme Butt MD ~ [facility] Work Phone: 1(691) 363-598210-02-2023 Discharge summary Author Ori Jones [facility] February 12, 2023 1:48pm Note Date/Time February 12, 2023 1: 47pm [facility] Medical Records Department [address] [place] [address] Instructions for Home/Discharge Instructions 02/12/23 1347 MR#: [id number] Acct: [id number] Name: IGOR CRUZ Rep #:[id number] : 1945 77 From: Ori wooten MD PCP: Dr. Guilherme Butt MD Status:R [facility] Discharge Instructions Procedure Hernia Diet Discharge [...] to schedule 2 week follow up appointment. [phone] Test Results: Test results from this visit [...] TID bisacodyl 10 mg suppository 10 mg [place] DAILY PRN (Reason: constipation) carbidopa-levodopa 50-200 mg [...] CC: Dr. Guilherme Butt MD ~ Signed [facility] Work Phone: 1(958) 546-536510-02-2023 Procedure [facility] 02-12-2023 History and physical note Author [facility] February 12, 2023 10:45am Note Date/Time February 12, 2023 10 :46am [facility] Medical Records Department [address] [place] [id number] History & Physical Exam 02/12/23 1045 MR#: [id number] Acct: [id number] Name: IGOR CRUZ Rep #:[id number] : 1945 77 From: Ori wooten MD PCP: Dr. Guilherme Butt MD Status:R [facility] Location: [place] [address] History and Physical Date of Admission: 02/12/23 Intake Vital Signs 09/04/2309:58 01/11/2314:37 Height 6 ft 6 ft Weight: 184 lb BMI 24.9 BP 130/85 H Blood Pressure Location Lt brachial Position Sitting Respiration 16 Intake Visit Reasons: INGUINAL HERNIA Chief Complaint: inguinal hernia Courtroom Reporter Required: No Is patient in pain?: No [...] bisacodyl 10 mg rectal suppository 10 mg [place] DAILY PRN 09/04/22 [History Confirmed 01/11/23] carbidopa [...] inguinal hernia. He comes to from a assisted. He reports is been there for at [...] to the procedure. Ori Jones MD Pager: [facility] [address] [place] [address], [address] [place] [address] Office: I have examined the patient and the H&P has been reviewed. There are no clinicalchanges since date of exam. 02/12/23 1045 <Electronically signed by Ori Jones MD> Cosigner Signature (if applicable): CC: Dr. Ori Jones MD; Dr. Guilherme Butt MD~ Signed [facility] Work Phone: 1(923) 351-613807-01-2006 Evaluation note* Diagnosis Onset Date Resolution Status History of aortic valve repl acement with bioprosthetic valve November, acute Chest pain chronic Essential hypertension chron ic Parkinson's disease chronic Paroxysmal atrial fibrillation chronic [facility] Work Phone: 1(686) 743-548607-01-2006 Evaluation note* Diagnosis Onset Date Resolution Status Admit Date History of aortic valve replacement with bioprosthetic valve November, acute October 08, 2024 2 :14pm Parkinson's disease chronic September 122024 2:14pm Paroxysmal atrial fibrillation chron ic October 08, 2024 2:14pm [facility] Work Phone: Discharge summary Author Dr. Callahan [facility] August 02, 2022 7:37am Note Date/Time August 02, 2022 7:1 3am [facility] Medical Records Department [address] [place] [address] Emergency Department Summary 08/02/22 MR#: [id number] Acct: [id number] Name: IGOR CRUZ Rep #:[id number] : 1945 77 From: Matt Cristina PCP: Dr. Guilherme Butt MD Status:R EG ER Location: ED HPI [...] States his hip does not hurt. Per assisted patient injured his right hip after fall. [facility] Medical History Anxiety Atrial fibrillation Back pain [...] PO BID 07/24/16 [History Last Taken Unknown] [place] Extract 5 drp PO DAILY 07/24/16 [History Last Taken Unknown] [place] Drink 1 packet PO DAILY 07/24/16 [History [...] Response: 6 Secondary Survey Constitutional: Please see [facility] Head: Atraumatic, Midface stable, NO jaw malocclusion, [...] Oxygen Delivery Method Room Air Room Air [facility] Narrative Medical decision making narrative: Chief Complaint: [...] Daily Complex Tab 2 tab PO BID [place] Extract 5 drp PO DAILY [place] Drink 1 packet PO DAILY Tumeric/Carcumin 1 [...] your Primary Care Provider. Call [facility] ([phone]) or report to the closest Emergency Room. Call 911 if necessary. 08/02/22 0737 <Electronically signed by Matt Callahan DO> Cosigner Signature (if applicable): CC: Dr. Guilherme Butt MD ~ Signed [facility] Work Phone: Evaluation noteNo assessment information available [facility] Work Phone: Evaluation note* Diagnosis Onset Date Resolution Status Left inguinal hernia acute [facility] Work Phone: Evaluation note* Diagnosis Onset Date Resolution Status Left inguinal hernia acute Left inguinal hernia acute [facility] Work Phone: Hospital Discharge instructions Additional Instructions Alternate ibuprofen and Tylenol for pain, may resume aspirin Sunday. [facility] Work Phone: Reason for referral (narrative)No reason for referral [facility] Work Phone: Summary Purpose Family History No Family History Records Found Relationship Condition Age at Onset Recorded Date/T jina mother Malignant neoplasm Unknown father Malignant neoplasm Unknown Chronic obstructive pulmonary disease Unk nown Advance Directives No Advanced Directives Records Found Advance Directive Response Recorded Date/ Time Living Will Yes July 24, 2016 9:10am Power of Strategy Director Yes July 24 9:10am Advance Directive Response Recorded Date/ Time Living Will No October 02, 2021 8 :30pm Power of Strategy Director No October 02, 2021 8:30pm Advance Directive Response Recorded Date/ Time Living Will No May 22 3 1:15pm Power of Strategy Director No May 22 023 1:15pm Advance Directive Response Recorded Date/ Time Living Will No May 22 3 2:15pm Power of Strategy Director No May 22 2 023 2:15pm Advance Directive Response Recorded Date/ Time Living Will No February 09, 2023 12:16pm Power of Strategy Director No January 12:16pm Advance Directive Response Recorded Date/ Time Living Will No March 12 12:59pm Power of Strategy Director No March 12, 2023 12:59pm Advance Directive Response Recorded Date/ Time Living Will No March 12 1:59pm Power of Strategy Director No March 12, 2023 1:59pm Chief Complaint and Reason for Visit Chief Complaint DETENTION LABWORK DETENTION LABWORK DETENTION LABWORK DETENTION BLOOD WORK Chief Complaint DETENTION LABWORK DETENTION LABWORK DETENTION BLOOD WORK MONTHLY EXAM CONFUSION Chief Complaint DETENTION LABWORK DETENTION BLOOD WORK MONTHLY EXAM DETENTION LABWORK CONFUSION LABWORK Chief Complaint DETENTION BLOOD W ORK MONTHLY EXAM DETENTION LABWORK CONFUSION LABWORK DETENTION LABWORK Chief Complaint MONTHLY EXAM DETENTION LABWORK CONFUSION LABWORK DETENTION LABWORK MONTHLY EXAM DETENTION LABWORK Chief Complaint DETENTION LABWORK MONTHLY EXAM DETENTION LABWORK LABWORK DETENTION LABWORK Chief Complaint DETENTION LABWORK DETENTION LAB WORK DETENTION LABWORK MONTHLY EXAM syncope ACUTE CARE VISIT RE-ADMISSION NOTE DETENTION LABWORK READMISSION NOTE NEW CONCERN/PROBLEM Chief Complaint DETENTION LAB WOR K DETENTION LABWORK MONTHLY EXAM syncope ACUTE CARE VISIT RE-ADMISSION NOTE DETENTION LABWORK READMISSION NOTE NEW CONCERN/PROBLEM DETENTION LABWORK Chief Complaint RE-ADMISSION NOTE DETENTION LABWORK READMISSION NOTE NEW CONCERN/PROBLEM DETENTION LABWORK MONTHLY DETENTION LABWORK MONTHLY NOTE FALL Chief Complaint DETENTION LABWORK READMISSION NOTE NEW CONCERN/PROBLEM DETENTION LABWORK MONTHLY DETENTION LABWORK MONTHLY NOTE DETENTION LABWORK MONTHLY FALL NEW COMPLAINT Chief Complaint NEW CONCERN/PROBLEM DETENTION LABWORK MONTHLY DETENTION LABWORK MONTHLY NOTE DETENTION LABWORK MONTHLY FALL NEW COMPLAINT NEW COMPLAINT Amb Documentation DETENTION LABWORK CP, PREV AVR Reason for Visit 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 Chest pain Essential hypertension Parkinson's disease Paroxysmal atrial fibrillation Chief Complaint CP, PREV AVR CP, EVAL VALVE REPLACEMENT DETENTION LABWORK MONTHLY EXAM DETENTION LABWORK MONTHLY NOTE LABWORK MONTHLY EXAM Reason for Visit 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 Chest pain Essential hypertension Parkinson's disease Paroxysmal atrial fibrillation Chief Complaint CP, EVAL VALVE REPLA CEMENT DETENTION LABWORK MONTHLY EXAM DETENTION LABWORK MONTHLY NOTE LABWORK MONTHLY EXAM Chief Complaint CP, EVAL VALVE REPLA CEMENT DETENTION LABWORK MONTHLY EXAM DETENTION LABWORK MONTHLY NOTE LABWORK MONTHLY EXAM DETENTION LABWORK INGUINAL HERNIA Chief Complaint DETENTION LABWORK MONTHLY NOTE LABWORK MONTHLY EXAM DETENTION LABWORK ACUTE VISIT INGUINAL HERNIA DETENTION LAB WORK MONTHLY EXAM Lap Robotic Left poss Bilateral Ing Lap Robotic Left poss Bilateral Ing Reason for Visit Left inguinal hernia Chief Complaint MONTHLY NOTE LABWORK MONTHLY EXAM DETENTION LABWORK ACUTE VISIT INGUINAL HERNIA DETENTION LAB WORK MONTHLY EXAM DETENTION LAB WORK Lap Robotic Left poss Bilateral Ing Lap Robotic Left poss Bilateral Ing DETENTION LABWORK Hernia 02/12 Reason for Visit Left inguinal hernia Left inguinal hernia Chief Complaint DETENTION LABWORK ACUTE VISIT INGUINAL HERNIA DETENTION LAB WORK MONTHLY EXAM DETENTION LAB WORK Lap Robotic Left poss Bilateral Ing Lap Robotic Left poss Bilateral Ing MONTHLY VISIT DETENTION LABWORK Hernia 02/12 DETENTION LABWORK Reason for Visit Left inguinal hernia Left inguinal hernia Chief Complaint Lap Robotic Left pos s Bilateral Ing Lap Robotic Left poss Bilateral Ing MONTHLY VISIT DETENTION LABWORK Hernia 02/12 DETENTION LABWORK MONTHLY EXAM NEW CONCERN DETENTION LABWORK DETENTION LABWORK Reason for Visit Left inguinal hernia Chief Complaint NEW CONCERN DETENTION LABWORK DETENTION LABWORK MONTHLY EXAM - MD LABWORK LABWORK Chief Complaint DETENTION LABWORK MONTHLY EXAM - MD LABWORK MONTHLY [...] MONTHLY EXAM July 29, 2024 7:4 9pm DETENTION LAB WORK August 22, 2024 5 :00am Chief Complaint Admit Date LABWORK June 27, 2024 5:00am MONTHLY VISIT July 03, 2024 10:45am LABWORK July 25, 2024 5:0 0am MONTHLY EXAM July 29, 2024 7:4 9pm DETENTION LAB WORK August 22, 2024 5 :00am [...] section and content) DATE CREATED AUTHOR 08/12/2019 [facility] ([place]) DATE CREATED AUTHOR AUTHOR'S ORGANIZ ATION 01/01/2021 [facility] DATE CREATED AUTHOR AUTHOR'S ORGANIZ ATION 10/10/2024 [facility] Goals (unrecognized section and content) Goals [...] MD Primary Care Provider Active Cecy Gray BILLING REP, BILLING REP-C Attending Provider Active Team Status: Inactive Member [...] Guilherme Butt MD Primary Care Provider Active [facility] Attending Provider Active Team Status: Active Member Role Status Dates Dr. Guilherme Butt MD Primary Care Provider Active Guilherme SHI MD Attending Provider Active Team Status: Inactive Member Role Status Dates Dr. Guilherme Butt MD Primary Care Provider Active Dr. Matt Callahan DO Emergency Provider Active Team Status: Inactive Member Role Status Dates Dr. Guilherme Butt MD Primary Care Provider Active [facility] Attending Provider Active Team Status: Inactive [...] Butt MD Primary Care Provider Active Dr. Oir Jones MD Attending Pr ovider, Referring Provider, [...] BE BASED ON THE PRIMARY CLINICAL RECORDS. [employer] [facility]. provides no warranty or guarantee of the accuracy or completeness of information in this document.
[2024-10-24 09:06] LABS: Hematocrit 39.4 % (40-54); Hemoglobin 13.2 g/dL (13.0-16.5); Mean Corp Hgb Conc 33.5 g/dL (32-36); Mean Corpuscular Hgb 32.3 pg (27.0-32.0); Mean Corpuscular Volume 96.3 fL (80-94); Mean Platelet Vol. 9.1 fl (6.2-12.0); Platelet Count 200 K/mm3 (150-450); RBC Distribution Width CV 12.8 % (11.6-14.6); RBC Distribution Width SD 45.1 fl (35.1-43.9); Red Blood Count 4.09 M/mm3 (4.6-6.2); White Blood Count 4.7 K/mm3 (4.4-11.0)
[2024-10-24 09:23] LABS: Anion Gap 9 (5-15); BUN 24 mg/dL (4-19); BUN/Creat Ratio 25.6 RATIO (10-20); Calcium,Total 9.3 mg/dL (7.6-11.0); Carbon Dioxide 29.3 mmol/L (21.0-32.0); Chloride 104 mmol/L (98-108); Creatinine, Serum 0.93 mg/dL (0.70-1.20); EST Glomerular Filtration Rate 84 (>60); Glucose 85 mg/dL (70-99); Potassium 4.5 mmol/L (3.3-5.1); Sodium Level 142 mmol/L (133-145)
== END ==
LOC: OLS.WHLEAS 05:00
PROVIDERS: PCP Internal Medicine; Visit Provider Nurse Practitioner Adult Health
DX: N18.30 Chronic kidney disease, stage 3 unspecified (principal)
CPT/HCPCS: 36415; 80048; 85027

== ENCOUNTER → 2024-11-21 05:00 | Outpatient (REF) | payer MEDICARE, MEDICAID, SELFPAY ==
[2024-11-21 07:20] LABS: Hematocrit 39.4 % (40-54); Hemoglobin 13.1 g/dL (13.0-16.5); Immature Granulocytes Count 0.020 X10^3/uL (0.0-0.0); Mean Corp Hgb Conc 33.2 g/dL (32-36); Mean Corpuscular Volume 97.5 fL (80-94); Mean Platelet Vol. 9.5 fl (6.2-12.0); NRBC Flagged by Analyzer 0 % (0-5); Platelet Count 185 K/mm3 (150-450); RBC Distribution Width CV 12.9 % (11.6-14.6); RBC Distribution Width SD 45.9 fl (35.1-43.9); Red Blood Count 4.04 M/mm3 (4.6-6.2); White Blood Count 5.0 K/mm3 (4.4-11.0)
[2024-11-21 07:56] LABS: AST(SGOT) 19 U/L (<=37); Alanine Aminotransfer ALT/SGPT 8 U/L (<=46); Albumin, Serum 4.1 g/dL (3.4-4.8); Alkaline Phosphatase 109 U/L (40-129); Anion Gap 11 (5-15); BUN 26 mg/dL (4-19); BUN/Creat Ratio 24.5 RATIO (10-20); Calcium,Total 9.2 mg/dL (7.6-11.0); Carbon Dioxide 24.6 mmol/L (21.0-32.0); Chloride 106 mmol/L (98-108); Globulin 2.4 g/dL (2.2-4.2); Glucose 142 mg/dL (70-99); Potassium 4.5 mmol/L (3.3-5.1)
== END ==
LOC: OLS.WHLEAS 05:00
PROVIDERS: PCP Internal Medicine; Visit Provider Internal Medicine
DX: I48.20 Chronic atrial fibrillation, unspecified (principal); R53.83 Other fatigue; G20.C Parkinsonism, unspecified; F02.80 Dementia in other diseases classified elsewhere, unspecified severity, without behavioral disturbance, psychotic disturbance, mood disturbance, and anxiety
CPT/HCPCS: 36415; 80053; 84439; 84443; 85025

== ENCOUNTER → 2024-12-12 | Outpatient (CLI) | payer MEDICARE, MEDICAID, SELFPAY ==
--- NOTE | 2024-12-12 13:58 | ECHOD_ITS ---
Reason For Study Reason For Study: OTHER Procedure This was a 2D Doppler, Color Flow transthoracic echocardiogram. Exam performed in department. Left Ventricle Normal LV size. Severe concentric left ventricular hypertrophy. The left ventricular ejection fraction is 50 %. Stage 1 diastolic dysfunction. There is mild global hypokinesis of the left ventricle. Right Ventricle Normal RV size. Normal systolic function. Atria Normal left atrium. Normal right atrium. Mitral Valve Normal mitral valve. Tricuspid Valve Normal tricuspid valve. Aortic Valve Peak aortic valve gradient 16 mmHg. Mean aortic valve gradient 9.7 mmHg. Bioprosthetic aortic valve. Pulmonic Valve Normal pulmonic valve. Great Vessels Severely dilated aortic root. Aortic root measures approximately 5.7 cm. The pulmonary artery is normal size. Inferior vena cava collapse with respiration. Pericardium/Pleural No pericardial effusion. MMode/2D Measurements & Calculations LVIDd: 3.9 cm IVSd: 1.7 cm LVOT diam: 2.0 cm LVIDs: 3.1 cm LVPWd: 1.7 cm LVOT area: 3.1 cm2 FS: 21.7 % Ao root diam: 5.8 cm LAV(MOD-bp): 51.9 ml LVAd ap4: 29.3 cm2 LAV(MOD-bp) Indexed: 25.5 ml/m2 LVLd ap4: 8.2 cm LAV(MOD-sp2): 51.8 ml EDV(MOD-sp4): 88.1 ml LAV(MOD-sp4): 51.6 ml EDV(sp4-el): 88.4 ml LVAs ap4: 20.5 cm2 LVLs ap4: 7.2 cm ESV(MOD-sp4): 48.2 ml ESV(sp4-el): 49.2 ml EF(MOD-sp4): 45.3 % EF(sp4-el): 44.3 % SV(MOD-sp4): 39.9 ml SV(sp4-el): 39.2 ml Ao sinus diam: 5.4 cm SI(MOD-sp4): 19.6 ml/m2 Ao ST [place]: 4.5 cm LA A4 area: 18.4 cm2 LA dimension(2D): 4.0 cm RA A4 area: 12.0 cm2 Time Measurements MV dec time: 0.16 sec Doppler Measurements & Calculations MV E max alex: 30.2 cm/sec Lat Peak E' Alex: 6.3 cm/sec Med Peak E' Alex: 3.3 cm/sec MV A max alex: 73.4 cm/sec E/E' lat: 4.8 E/E' med: 9.0 MV E/A: 0.41 MV V2 max: 67.2 cm/sec MV dec slope: 189.4 cm/sec2 Ao V2 max: 202.8 cm/sec MV max P.8 mmHg Ao max P.5 mmHg MV V2 mean: 31.0 cm/sec Ao V2 mean: 145.6 cm/sec MV mean P.52 mmHg Ao mean P.7 mmHg MV V2 VTI: 16.5 cm Ao V2 VTI: 43.5 cm MVA(VTI): 7.7 cm2 AV (velocity ratio): 0.95 SNEHA(I,D): 2.9 cm2 SNEHA(V,D): 2.7 cm2 AI max alex: 503.8 cm/sec LV V1 max: 179.6 cm/sec SV(LVOT): 127.3 ml AI max P.6 mmHg LV V1 max P.9 mmHg LV V1 mean P.5 mmHg AI dec slope: 292.1 cm/sec2 LV V1 mean: 139.7 cm/sec AI P1/2t: 505.2 msec LV V1 VTI: 41.2 cm PA V2 max: 112.2 cm/sec TR max alex: 228.5 cm/sec PA V2 mean: 69.0 cm/sec TR max P.9 mmHg ECHO/Echo Complete Interpretation Summary Normal LV size. The left ventricular ejection fraction is 50 %. Stage 1 diastolic dysfunction. Bioprosthetic aortic valve. Severely dilated aortic root. Aortic root measures approximately 5.7 cm. Ordering Physician: Dwain Yen Referring Physician: Dwain Yen Performed By: Marbella Oropeza RCS
== END | disposition home or self-care (01) ==
LOC: CVS 13:58
PROVIDERS: PCP Internal Medicine; Referring Provider Internal Medicine Cardiovascular Disease; Visit Provider Internal Medicine Cardiovascular Disease
DX: Z95.3 Presence of xenogenic heart valve (principal)
CPT/HCPCS: 93306

== ENCOUNTER → 2024-12-19 | Outpatient (REF) | payer MEDICARE, MEDICAID, SELFPAY ==
[2024-12-19 06:24] LABS: Hematocrit 39.3 % (40-54); Hemoglobin 13.1 g/dL (13.0-16.5); Mean Corp Hgb Conc 33.3 g/dL (32-36); Mean Corpuscular Volume 96.8 fL (80-94); Mean Platelet Vol. 9.0 fl (6.2-12.0); Platelet Count 168 K/mm3 (150-450); RBC Distribution Width CV 12.6 % (11.6-14.6); RBC Distribution Width SD 44.9 fl (35.1-43.9); Red Blood Count 4.06 M/mm3 (4.6-6.2); White Blood Count 4.7 K/mm3 (4.4-11.0)
[2024-12-19 06:35] LABS: Anion Gap 9 (5-15); BUN 29 mg/dL (4-19); BUN/Creat Ratio 29.6 RATIO (10-20); Calcium,Total 9.2 mg/dL (7.6-11.0); Carbon Dioxide 27.2 mmol/L (21.0-32.0); Chloride 103 mmol/L (98-108); Glucose 88 mg/dL (70-99); Potassium 4.4 mmol/L (3.3-5.1)
== END ==
LOC: OLS.WHLEAS 05:00
PROVIDERS: PCP Internal Medicine; Visit Provider Internal Medicine
DX: N18.30 Chronic kidney disease, stage 3 unspecified (principal); G20.C Parkinsonism, unspecified; I48.20 Chronic atrial fibrillation, unspecified
CPT/HCPCS: 36415; 80048; 85027

== ENCOUNTER → 2024-12-23 21:55 | Outpatient (REF) | payer MEDICARE, MEDICAID, SELFPAY ==
[2024-12-24 07:29] LABS: Mucous, Urine 0 SEEN /hpf (<or=2+); Red Blood Cells-Urine 0 SEEN /hpf (0-5); Squamous Epithelial Cells - UA 0 SEEN /hpf (0-5)
--- OUTSIDE RECORDS SUMMARY | 2024-12-24 07:31 | XMS RPT_ITS | CCD ---
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 Maikel Alfaro Primary Care Provider Tickashli TRADE SHOW MANAGER, TRADE SHOW MANAGER-C Cecy Attending Provider Dr. Guilherme Barrera Primary Care Provider Dr. Guilherme Butt Attending Provider [phone] Isaac TRADE SHOW MANAGER, TRADE SHOW MANAGER-C Cecy Attending Provider Dr. Guilherme Barrera Primary Care Provider [phone] Tickashli TRADE SHOW MANAGER, TRADE SHOW MANAGER-C Cecy Attending Provider Dr. Guilherme Barrera Attending Provider [phone] Tickashli OLS, TRADE SHOW MANAGER-C Cecy Attending Provider [phone] Dr. Guilherme Butt Primary Care Provider [phone] Tickashli TRADE SHOW MANAGER, TRADE SHOW MANAGER-C Cecy Attending Provider Dr. Guilherme Barrera Primary Care Provider [phone] Tickashli TRADE SHOW MANAGER, TRADE SHOW MANAGER-C Cecy Attending Provider UnaLucita Rivera Attending Provider Unavailable Dr. Guilherme Butt Referring Provider [phone] Dr. Dwain Yen Attending Provider Dr. Guilherme Butt Primary Care Provider [phone] Dr. Mike Poe Attending Provider Dr. Dwain Yen Referring Provider Dr. Guilherme Butt Attending Provider [phone] Isaac TRADE SHOW MANAGER, TRADE SHOW MANAGER-C Cecy Attending Provider Unav Dr. Guilherme Kerr Primary Care Provider [phone] Dr. Guilherme Butt Referring Provider [phone] Dr. Ori Jones Attending Provider Dr. Guilherme Butt Primary Care Provider [phone] Dr. Guilherme Butt Attending Provider [phone] Dr. Ori Jones Referring Provider Dr. Ori Jones Other Provider BIRD Stewart Attending Provider Dr. Guilherme Butt Primary Care Provider [phone] Isaac TRADE SHOW MANAGER, TRADE SHOW MANAGER-C Cecy Attending Provider Unav Dr. Guilherme Kerr Referring Provider [phone] Dr. Ori Jones Attending Provider Dr. Guilherme Butt Attending Provider [phone] Dr. Ori Jones Referring Provider Dr. Ori Jones Other Provider BIRD Stewart Attending Provider Dr. Guilherme Butt Primary Care Provider [phone] Dr. Ori Jones Attending Provider Isaac TRADE SHOW MANAGER, TRADE SHOW MANAGER-C Cecy Attending Provider Dr. Guilherme Butt Referring Provider [phone] Dr. Guilherme Butt Attending Provider [phone] Dr. Guilherme Butt Primary Care Provider [phone] Isaac TRADE SHOW MANAGER, TRADE SHOW MANAGER-C Cecy Attending Provider Dr. Guilherme Butt Attending Provider [phone] Oleghe, Dr. Vanegas Primary Care Provider [phone] TANJA Painter Attending Provider [phone] Filomena LEVIN, Dr. Vanegas Primary Care Provider Guilherme Butt MD Attending Provider Daljti Butt MD, Dr. Vanegas Attending Provider [phone] Camilo Painter Attending Provider [phone] Filomena LEVIN, Dr. Vanegas Primary Care Provider Filomena LEVIN, Guilherme Attending Provider Daljit Gray TRADE SHOW MANAGER-CCecy Attending Provider [phone] Filomena LEVIN, Dr. Vanegas Primary Care Provider Filomena LEVIN, Guilherme Attending Provider Daljit Butt MD, Dr. Vanegas Attending Provider [phone] Filomena LEVIN, Dr. Vanegas Referring Provider [phone] Dr. Dwain Yen MD Attending Provider Filomena LEVIN, Dr. Vanegas Primary Care Provider Guilherme Butt MD Attending Provider Daljit Gray TRADE SHOW MANAGER-CCecy Attending Provider Filomena LEVIN, Dr. Vanegas Primary Care Provider Guilherme Butt MD Attending Provider Daljit Butt MD, Dr. Vanegas Primary Care Provider Filomena LEVIN, Dr. Vanegas Attending Provider [phone] Camilo Painter Attending Provider [phone] Filomena LEVIN, Dr. Vanegas Primary Care Provider Farshad LEVIN, Dr. Prakash Referring Provider Deepika LEVIN, Dr. Mckeon Attending Provider Guilherme Butt Primary Care Unavailable Wayt PA, Camilo Attending Unavailable Oleghe, Efewongbe Primary Care Unavailable Oleghe, Efewongbe Attending Unavailable Cecy Gray Attending Unavailable Oleghe, Efewongbe Primary Care Unavailable Oleghe, Efewongbe Attending Unavailable Oleghe, Efewongbe Primary Care Unavailable Oleghe OLS, Efewongbe Attending Unavailabl e Oleghe, Efewongbe Primary Care Unavailable Oleghe OLS, Efewongbe Attending Unavailabl e Oleghe, Efewongbe Primary Care Unavailable Oleghe, Efewongbe Primary Care Unavailable Farshad, Dwain Referring Unavailable Farshad, Dwain Attending Unavailable Oleghe OLS, Efewongbe Attending Unavailabl e Oleghe, Efewongbe Primary Care Unavailable Oleghe, Efewongbe Primary Care Unavailable Cecy Gray Attending Unavailable Camilo Painter Attending Unavailable Oleghe, Efewongbe Primary Care Unavailable Oleghe, Efewongbe Primary Care Unavailable DeepikaYael lunsfordl Attending Unavailable TickCecy Hester Attending Unavailable Oleghe, Efewongbe Primary Care Unavailable [...] OLS, Efewongbe Attending Unavailabl e Oleghe, Efewongbe Attending Unavailable Oleghe, Efewongbe Primary Care Unavailable Oleghe, Efewongbe Primary Care Unavailable Oleghe OLS, Efewongbe Attending Unavailabl e Tickton JOSE GUADALUPE Cecy Attending Unavailable Oleghe, Efewongbe Primary Care Unavailable Oleghe, Efewongbe Primary Care Unavailable Camilo Painter Attending Unavailable Oleghe, Efewongbe Primary Care Unavailable Cecy Gray Attending Unavailable Oleghe, Efewongbe Attending Unavailable Filomena Reillydmitri Primary Care Unavailable Roselia Buttkierananne Referring Unavailable Dwain Yen Attending Unavailable Roselia Buttkierananne Primary Care Unavailable Guilherme Butt Attending Unavailable Roselia Buttkierananne Primary Care Unavailable Medications Current Medications Medication Drug Class(es) Dates Sig (Normalized) Sig (Original) acetaminophen 325 mg oral tablet (18 sources) Start: 09-04-2022 take 2 tablets by mouth three times daily Acetaminophen 325 mg tablet Active 650 mg PO THREE TIMES A DAY September 04, 2022 12:00am Start: 09-04-2022 take 650 mg by mouth three times daily Acetaminophen Active 650 MG PO THREE TIMES A DAY September 04, 2022 12:00am Alum-Mag Hydroxide-Simeth (Mylanta Maximum Strength) 400-400-40 mg/5 mL suspension (14 sources) Start: 09-04-2022 take 1 mL [...] 24, 2016 8:58am Start: 07-24-2016 End: 09-04-2022 [facility] Discontinued 1 {tbl} PO DAILY [...] release (DR/EC) Active 81 mg PO DAILY 30 September 04, 2022 11:33am Start: 07-24-2016 End: 09-04-2022 take 1 tablet by mouth once daily Aspirin 325 MG tablet Discontinued 325 mg PO DAILY@0800 July 24, 2016 12:00am September 04, 2022 10:50am bisacodyl 10 mg rectal suppository (18 sources) Stimulant Laxative Start: 09-04-2022 Bisacodyl 1 [...] Start: 01-11-2023 take 1 tablet by pavan th three times daily Carbidopa-Levodopa Active 1 TABLET [...] Start: 07-24-2016 take 2 tablets by mo ut once daily Chlorofresh Active 2 TABLET PO DAILY July 23, 2016 11:00pm Start: 07-24-2016 take 2 tablets by mo ut once daily Chlorofresh Active 2 TABLET PO DAILY July 24, 2016 12:00am docusate sodium 50 mg / sennosides, long-term 8.6 mg oral tablet (18 sources) Start: 09-04-2022 Sennosides-Docusate Sodium (Senna-S) 8.6-50 mg tablet Active 1 NMA PO TWICE A DAY September 04, 2022 12:00am DULoxetine 60 mg delayed release oral capsule (18 sources) Serotonin and Norepinephrine Reuptake Inhibitor Start: [...] 07-24-2016 take 1 capsule by mo uth three times daily Efa, Essential Fatty Acid Active 1 CAP PO THREE TIMES A DAY July 23, 2016 11:00pm Start: 07-24-2016 take 1 capsule by mo uth three times daily Efa, Essential Fatty Acid [...] 11:00pm Start: 07-24-2016 take 1 capsule by mo uth twice daily Lactobacillus Combination No.4 (Probiotic) 1 EACH capsule Active 2 EACH PO TWICE A DAY July 24, 2016 12:00am Magnesium Hydroxide (18 sources) Start: 09-04-2022 take 1 mL by [...] 2022 12:00am melatonin 10 mg oral tablet (18 sources) Start: 09-04-2022 take 1 tablet by mouth at bedtime Melatonin 10 mg tablet Active 10 mg PO BEDTIME September 04, 2022 12:00am 24 hr mirabegron 25 mg extended release oral tablet (18 sources) beta3-Adrenergi c Agonist Start: 09-04-2022 take 1 tablet by mouth once daily Mirabegron (Myrbetriq) 25 mg tablet extended release 24 hr Active 25 mg PO DAILY September 04, 2022 12:00am [place] [facility] Extract (20 sources) Start: 07-24-[address] [facility] [facility] Ext ract Active 5 DRP PO DAILY July 24, 2016 8:58am Start: 07-24-2016 End: 09-04-[address] [facility] [facility] Extract Discontin ued 5 NMA PO DAILY July 24, 2016 12:00am September 04, 2022 10:51am Start: 07-24-2016 End: 09-04-[address] [facility] Extract Discontin ued 5 DRP PO DAILY July 23, 2016 11:00pm September 04, 2022 9:51am Start: 07-24-2016 End: 09-04-[address] [address] [facility] Extract Discontin ued 5 DRP PO DAILY July 24, 2016 12:00am September 04, 2022 10:51am Start: 07-24-[address] [place] Ext ract Active 5 DRP PO DAILY July 23, 2016 11:00pm Start: 07-24-[address] [place] Ext ract Active 5 DRP PO DAILY July 24, 2016 12:00am pimavanserin 34 mg oral capsule (6 sources) Atypical Antipsychotic Start: 10-08-2024 take 1 capsule by mouth once daily Pimavanserin (Nuplazid) 34 mg capsule Active 34 mg PO daily October 08, 2024 12:00am polyethylene glycol 3350 49488 mg powder for oral solution (18 sources) Osmotic Laxative Start: 09-04-2022 Polyethylene Glycol 3350 (Miralax) 17 gram powder in packet Active 17 g PO DAILY September 04, 2022 12:00am QUEtiapine 100 mg oral tablet (20 sources) Atypical Antipsychotic Start: 09-04-2022 take 1 tablet by mouth at bedtime Quetiapine 100 mg tablet Active 100 mg PO AT BEDTIME September 04, 2022 12:00am Start: 09-04-2022 take 1 tablet by pavan once daily Quetiapine 50 mg tablet Active 50 mg PO DAILY September 04, 2022 12:00am rivastigmine 4.5 mg oral capsule (18 sources) Start: 09-04-2022 take 6 mg by [...] TWICE A DAY September 04, 2022 12:00am 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) Start: 07-24-2016 [employer] Dr[employer] Active 1 PACKET PO DAILY July 24, 2016 8:58am Start: 07-24-2016 End: 09-04-2022 [employer] Dr[employer] Discontinued 1 NMA PO DAILY July 24, 2016 12:00am September 04, 2022 10:51am Start: 07-24-2016 End: 09-04-2022 [employer] Drink Discontinued 1 PACKET PO DAILY July 23, 2016 11:00pm September 04, 2022 9:51am Start: 07-24-2016 End: 09-04-2022 [employer] Drink Discontinued 1 PACKET PO DAILY July 24, 2016 12:00am September 04, 2022 10:51am Start: 07-24-2016 [employer] Active 1 PACKET PO DAILY July 23, 2016 11:00pm Start: 07-24-2016 [employer] Active 1 PACKET PO DAILY [...] 4 HOURS NEEDED as needed for Pain 10 July 28, 2016 12:00am September 04, 2022 [...] Discontinued 500 mg PO TWICE A DAY 10 July 28, 2016 12:00am September 04, 2022 [...] Date Documented Da te Episodic/Chronic Abdominal hernia (20 sources) Left inguinal hernia ; Translations: [Unilateral inguinal hernia, without obstruction or gangrene, not specified as recurrent] 01-11-2023 Episodic Cardiac dysrhythmias (20 sources) Cardiac arrhythmia; Translations: [Cardiac arrhythmia, unspecified] Onset: 10-08-2024 05-21-2013 Chronic Chronic kidney disease (18 sources) Chronic kidney disease stage 3; Translations: [Stage 3 chronic kidney disease] 08-23-2022 Chronic Chronic kidney disease (2 sources) Chronic kidney disease; Translations: [Chronic kidney disease, stage 3 unspecified] Onset: 10-10-2024 Delirium, dementia, and amnestic and other cognitive disorders (20 sources) Dementia; Translations: [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] Onset: 06-13-2024 10-11-2021 Chronic E Codes: Fall (20 sources) Fall; Translations: [Unspecified fall, initial encounter] 08-02-2022 Episodic Essential hypertension (20 sources) Essential hypertension; Translations: [Essential (primary) hypertension] 09-04-2022 Chronic Heart valve disorders (20 sources) History of aortic valve replacement; Translations: [Presence of xenogenic heart valve] Onset: 11-11-2005 08-23-2022 Chronic Comment on above: 27mm Medtronic mosai c porcine bioprosthesis- resection of aneurysm of ascending aorta and replacement of a hemisheild graft @ [facility] 11/21/05 Malaise and fatigue (1 source) Other fatigue; Translations: [Other fatigue] Onset: 12-01-2024 Episodic Nonspecific chest pain (20 sources) Chest pain; Translations: [Chest pain, unspecified] 09-04-2022 Episodic Osteoarthritis (20 sources) Chronic osteoarthritis; Translations: [Unspecified osteoarthritis, unspecified site] 05-21-2013 Chronic Other circulatory disease (18 sources) H/O: major vascular surgery; Translations: [Presence of other vascular implants and grafts] Onset: 11-11-2005 08-23-2022 Chronic Comment on above: resection of aneurys m of ascending aorta and replacement of a hemisheild graft @ [facility] 11/21/05 Other nervous system disorders (20 sources) H/O: brain disorder; Translations: [Personal history [...] Test Name Value Interpretation Reference Range Facility Anion gap in Serum or Plasma Ordered By: Guilherme Butt on 12-19-2024 Anion gap [Moles/Vol] 9 mmol/L 5-15 [facility] BUN/creatinine ratioOrdered By: Guilherme Butt on 12-19-2024 Urea nitrogen/Creatinine [Mass ratio] 29.6 mg/mg High 10-20 [facility] Carbon dioxide, total [Moles /volume] in Central venous bloodOrdered By: Guilherme Butt on 12-19-2024 CO2 [Moles/Vol] 27.2 mmol/L 21.0-32.0 [facility] Chloride assayOrdered By: Rosleia Butt on 12-19-2024 Chloride [Moles/Vol] 103 mmol/L 98-108 [facility] Erythrocyte distribution wid th ratioOrdered By: Guilherme Butt on 12-19-2024 Erythrocyte distribution width (RBC) [Ratio] 12.6 % 11.6-14.6 [facility] Erythrocyte distribution wid th standard deviationOrdered By: Guilherme Butt on 12-19-2024 Erythrocyte distribution width (RBC) [Ratio] 44.9 fl High 35.1-43.9 [facility] Glomerular filtration rate ( GFR) estimation/1.73 sq m using serum, plasma, or whole bOrdered By: Guilherme Butt on 12-19-2024 GFR/1.73 sq M.predicted among non-blacks MDRD (S/P/Bld) [Vol rate/Area] 78 mL/min/{1.73_m2} >60 [facility] Comment on above: mL/min/1.73m2 CKD-EP I Creatinine Equation (2020) Hematocrit Auto (Bld) [Volum e fraction]Ordered By: Guilherme Butt on 12-19-2024 Hematocrit (Bld) [Volume fraction] 39.3 % Low 40-54 [facility] Hemoglobin measurementOrdere d By: Guilherme Butt on 12-19-2024 Hemoglobin (Bld) [Mass/Vol] 13.1 g/dL 13.0-16.5 [facility] MCV (mean corpuscular volume ) determinationOrdered By: Guilherme Butt on 12-19-2024 MCV (RBC) [Entitic vol] 96.8 fL High 80-94 [facility] Mean corpuscular hemoglobin (MCH) determinationOrdered By: Guilherme Butt on 12-19-2024 MCH (RBC) [Entitic mass] 32.3 pg High 27.0-32.0 [facility] Mean corpuscular hemoglobin concentration (MCHC) determinationOrdered By: Guilherme Butt 12-19-2024 MCHC (RBC) [Mass/Vol] 33.3 g/dL 32-36 [facility] Mean platelet volume determi nationOrdered By: Guilherme Butt on 12-19-2024 Platelet mean volume (Bld) [Entitic vol] 9.0 fL 6.2-12.0 [facility] Platelet countOrdered By: Roselia Butt on 12-19-2024 Platelets (Bld) [#/Vol] 168 10*3/uL 150-450 [facility] Potassium measurement (mass/ volume)Ordered By: Guilherme Butt on 12-19-2024 Potassium (Unsp spec) [Mass/Vol] 4.4 mmol/L 3.3-5.1 [facility] RBC Auto (Bld) [#/Vol]Ordere d By: Guilherme Butt on 12-19-2024 RBC (Bld) [#/Vol] 4.06 10*6/uL Low 4.6-6.2 [facility] Serum creatinine measurement (mass/volume)Ordered By: Guilherme Butt on 12-19-2024 Creatinine [Mass/Vol] 0.99 mg/dL 0.70-1.20 [facility] Serum glucose measurement (m ass/volume)Ordered By: Guilherme Yonasjack on 12-19-2024 Glucose [Mass/Vol] 88 mg/dL 70-99 [facility] Serum or plasma calcium farshad urement (mass/volume)Ordered By: Guilherme Butt on 12-19-2024 Calcium [Mass/Vol] 9.2 mg/dL 7.6-11.0 [facility] Serum or plasma urea nitroge n measurement (mass/volume)Ordered By: Guilherme Butt on 12-19-2024 Urea nitrogen [Mass/Vol] 29 mg/dL High 4-19 [facility] Sodium levelOrdered By: Kelly Butt on 12-19-2024 Sodium [Moles/Vol] 139 mmol/L 133-145 [facility] White blood cell (WBC) count Ordered By: Guilherme Butt on 12-19-2024 WBC (Bld) [#/Vol] 4.7 10*3/uL 4.4-11.0 [facility] Echo Completeon 12-12-2024 Echo Complete [facility] [address] [place] [address] Echo Complete 12/12/24 1410 MR#: [id number] Acct: [id number] Name: IGOR CRUZ Rep #: [id number] : [id number] From: Mike Poe MD Attending Dr: Dr. Dwain Yen MD Status: REG CLI Ordering Dr: Dwain Yen MD Date: 12/12/24 Location: [facility] Sex: M C Admitted: Reason For Study Reason For Study: OTHER Procedure This was a 2D Doppler, Color Flow transthoracic echocardiogram. Exam performed in department. Left Ventricle Normal LV size. Severe concentric left ventricular hypertrophy. The left ventricular ejection fraction is 50 %. Stage 1 diastolic dysfunction. There is mild global hypokinesis of the left ventricle. Right Ventricle Normal RV size. Normal systolic function. Atria Normal left atrium. Normal right atrium. Mitral Valve Normal mitral valve. Tricuspid Valve Normal tricuspid valve. Aortic Valve Peak aortic valve gradient 16 mmHg. Mean aortic valve gradient 9.7 mmHg. Bioprosthetic aortic valve. Pulmonic Valve Normal pulmonic valve. Great Vessels Severely dilated aortic root. Aortic root measures approximately 5.7 cm. The pulmonary artery is normal size. Inferior vena cava collapse with respiration. Pericardium/Pleural No pericardial effusion. MMode/2D Measurements Calculations LVIDd: 3.9 cm IVSd: 1.7 cm LVOT diam: 2.0 cm LVIDs: 3.1 cm LVPWd: 1.7 cm LVOT area: 3.1 cm2 FS: 21.7 % __ Ao root diam: 5.8 cm LAV(MOD-bp): 51.9 ml LVAd ap4: 29.3 cm2 LAV(MOD-bp) Indexed: 25.5 ml/m2 LVLd ap4: 8.2 cm LAV(MOD-sp2): 51.8 ml EDV(MOD-sp4): 88.1 ml LAV(MOD-sp4): 51.6 ml EDV(sp4-el): 88.4 ml LVAs ap4: 20.5 cm2 LVLs ap4: 7.2 cm ESV(MOD-sp4): 48.2 ml ESV(sp4-el): 49.2 ml EF(MOD-sp4): 45.3 % EF(sp4-el): 44.3 % __ SV(MOD-sp4): 39.9 ml SV(sp4-el): 39.2 ml Ao sinus diam: 5.4 cm SI(MOD-sp4): 19.6 ml/m2 __ Ao ST Junction: 4.5 cm LA A4 area: 18.4 cm2 LA dimension(2D): 4.0 cm __ RA A4 area: 12.0 cm2 Time Measurements MV dec time: 0.16 sec Doppler Measurements Calculations MV E max ju: 30.2 cm/sec Lat Peak E' Ju: 6.3 cm/sec Med Peak E' Ju: 3.3 cm/sec MV A max ju: 73.4 cm/sec E/E' lat: 4.8 E/E' med: 9.0 MV E/A: 0.41 __ MV V2 max: 67.2 cm/sec MV dec slope: 189.4 cm/sec2 Ao V2 max: 202.8 cm/sec MV max P.8 mmHg Ao max P.5 mmHg MV V2 mean: 31.0 cm/sec Ao V2 mean: 145.6 cm/sec MV mean P.52 mmHg Ao mean P.7 mmHg MV V2 VTI: 16.5 cm Ao V2 VTI: 43.5 cm MVA(VTI): 7.7 cm2 AV (velocity ratio): 0.95 SNEHA(I,D): 2.9 cm2 SNEHA(V,D): 2.7 cm2 __ AI max ju: 503.8 cm/sec LV V1 max: 179.6 cm/sec SV(LVOT): 127.3 ml AI max P.6 mmHg LV V1 max P.9 mmHg LV V1 mean P.5 mmHg AI dec slope: 292.1 cm/sec2 LV V1 mean: 139.7 cm/sec AI P1/2t: 505.2 msec LV V1 VTI: 41.2 cm __ PA V2 max: 112.2 cm/sec TR max ju: 228.5 cm/sec PA V2 mean: 69.0 cm/sec TR max P.9 mmHg ECHO/Echo Complete Interpretation Summary Normal LV size. The left ventricular ejection fraction is 50 %. Stage 1 diastolic dysfunction. Bioprosthetic aortic valve. Severely dilated aortic root. Aortic root measures approximately 5.7 cm. __ Ordering Physician: Dwain Yen Referring Physician: Dwain Yen Performed By: Marbella Oropeza RCS 12/12/241648 Date Mike Poe MD CC: Dr. Dwain Yen MD; Dr. Guilherme Butt MD Date Dictated: 12/12/241409 Date Transcribed: 12/12/241648 Shaft Headman: Signed Normal [facility] Echocardiogram study reportO rdered By: Mike Poe on 12-12-2024 Study report [facility] Cardi[facility] Services [address] [place] [id number] Echo Complete 12/12/24 1410 MR#: [id number] Acct: [id number] Name: IGOR CRUZ Rep #:[id number] : [id number] From: Mike Manuel Attending Dr: Dr. Dwain Yen MD Status: REG CLI Ordering Dr: Dwain Yen MD Date: Location: [facility] Sex: M C Admitted: Reason For Study Reason For Study: OTHER Procedure This was a 2D Doppler, Color Flow transthoracic echocardiogram. Exam performed in department. Left Ventricle Normal LV size. Severe concentric left ventricular hypertrophy. The left ventricular ejection fraction is 50 %. Stage 1 diastolic dysfunction. There is mild global hypokinesis of the left ventricle. Right Ventricle Normal RV size. Normal systolic function. Atria Normal left atrium. Normal right atrium. Mitral Valve Normal mitral valve. Tricuspid Valve Normal tricuspid valve. Aortic Valve Peak aortic valve gradient 16 mmHg. Mean aortic valve gradient 9.7 mmHg. Bioprosthetic aortic valve. Pulmonic Valve Normal pulmonic valve. Great Vessels Severely dilated aortic root. Aortic root measures approximately 5.7 cm. The pulmonary artery is normal size. Inferior vena cava collapse with respiration. Pericardium/Pleural No pericardial effusion. MMode/2D Measurements & Calculations LVIDd: 3.9 cm IVSd: 1.7 cm LVOT diam: 2.0 cm LVIDs: 3.1 cm LVPWd: 1.7 cm LVOT area: 3.1 cm2 FS: 21.7 % __ Ao root diam: 5.8 cm LAV(MOD-bp): 51.9 ml LVAd ap4: 29.3 cm2 LAV(MOD-bp) Indexed: 25.5 ml/m2 LVLd ap4: 8.2 cm LAV(MOD-sp2): 51.8 ml EDV(MOD-sp4): 88.1 ml LAV(MOD-sp4): 51.6 ml EDV(sp4-el): 88.4 ml LVAs ap4: 20.5 cm2 LVLs ap4: 7.2 cm ESV(MOD-sp4): 48.2 ml ESV(sp4-el): 49.2 ml EF(MOD-sp4): 45.3 % EF(sp4-el): 44.3 % ____ SV(MOD-sp4): 39.9 ml SV(sp4-el): 39.2 ml Ao sinus diam: 5.4 cm SI(MOD-sp4): 19.6 ml/m2 ____ Ao ST Junction: 4.5 cm LA A4 area: 18.4 cm2 LA dimension(2D): 4.0 cm ____ RA A4 area: 12.0 cm2 Time Measurements MV dec time: 0.16 sec Doppler Measurements & Calculations MV E max ju: 30.2 cm/sec Lat Peak E' Ju: 6.3 cm/sec Med Peak E' Ju: 3.3 cm/sec MV A max ju: 73.4 cm/sec E/E' lat: 4.8 E/E' med: 9.0 MV E/A: 0.41 __ MV V2 max: 67.2 cm/sec MV dec slope: 189.4 cm/sec2 Ao V2 max: 202.8 cm/sec MV max P.8 mmHg Ao max P.5 mmHg MV V2 mean: 31.0 cm/sec Ao V2 mean: 145.6 cm/sec MV mean P.52 mmHg Ao mean P.7 mmHg MV V2 VTI: 16.5 cm Ao V2 VTI: 43.5 cm MVA(VTI): 7.7 cm2 AV (velocity ratio): 0.95 SNEHA(I,D): 2.9 cm2 SNEHA(V,D): 2.7 cm2 ____ AI max ju: 503.8 cm/sec LV V1 max: 179.6 cm/sec SV(LVOT): 127.3 ml AI max P.6 mmHg LV V1 max P.9 mmHg LV V1 mean P.5 mmHg AI dec slope: 292.1 cm/sec2 LV V1 mean: 139.7 cm/sec AI P1/2t: 505.2 msec LV V1 VTI: 41.2 cm __ PA V2 max: 112.2 cm/sec TR max ju: 228.5 cm/sec PA V2 mean: 69.0 cm/sec TR max P.9 mmHg ECHO/Echo Complete Interpretation Summary Normal LV size. The left ventricular ejection fraction is 50 %. Stage 1 diastolic dysfunction. Bioprosthetic aortic valve. Severely dilated aortic root. Aortic root measures approximately 5.7 cm. __ Ordering Physician: Dwain Yen Referring Physician: Dwain Yen Performed By: Marbella Oropeza RCS 12/12/24 412 Date _ Mike Poe MD CC: Dr. Dwain Yen MD; Dr. Guilherme Butt MD ~ Date Dictated: 12/12/24 1410 Date Transcribed: 12/12/241648 Shaft Headman: Signed [facility] Work Phone: Absolute lymphocyte countOrd ered By: Guilherme Butt on 11-21-2024 Lymphocytes Auto (Unsp spec) [#/Vol] 1.17 10*3/uL 0.83-4.51 [facility] Absolute neutrophil countOrd ered By: Guilherme Butt on 11-21-2024 Neutrophils (Bld) [#/Vol] 3.2 10*3/uL 2.0-7.7 [facility] Anion gap in Serum or Plasma Ordered By: Guilherme Butt on 11-21-2024 Anion gap [Moles/Vol] 11 mmol/L 5-15 [facility] Automated lymphocyte count a s percentage of total leukocytesOrdered By: Guilherme Butt on 11-21-2024 Lymphocytes/100 WBC Auto (Unsp spec) 23.5 % 19-41 [facility] BUN/creatinine ratioOrdered By: Guilherme Butt on 11-21-2024 Urea nitrogen/Creatinine [Mass ratio] 24.5 mg/mg High 10-20 [facility] [facility] Basophil percentageOrdered B y: Guilherme Butt on 11-21-2024 Basophils/100 WBC (Bld) 0.6 % 0-1 [facility] Bilirubin, totalOrdered By: Guilherme Butt on 11-21-2024 Bilirubin [Mass/Vol] 0.38 mg/dL 0.00-1.30 [facility] Carbon dioxide, total [Moles /volume] in Central venous bloodOrdered By: Guilherme Butt on 11-21-2024 CO2 [Moles/Vol] 24.6 mmol/L 21.0-32.0 [facility] Chloride assayOrdered By: Roselia Butt on 11-21-2024 Chloride [Moles/Vol] 106 mmol/L 98-108 [facility] Eosinophil percentageOrdered By: Guilherme Butt on 11-21-2024 Eosinophils/100 WBC (Bld) 2.2 % 0-5 [facility] Erythrocyte distribution wid th ratioOrdered By: Guilherme Butt on 11-21-2024 Erythrocyte distribution width (RBC) [Ratio] 12.9 % 11.6-14.6 [facility] Erythrocyte distribution wid th standard deviationOrdered By: Guilherme Butt on 11-21-2024 Erythrocyte distribution width (RBC) [Ratio] 45.9 fl High 35.1-43.9 [facility] Glomerular filtration rate ( GFR) estimation/1.73 sq m using serum, plasma, or whole bOrdered By: Guilherme Butt on 11-21-2024 GFR/1.73 sq M.predicted among non-blacks MDRD (S/P/Bld) [Vol rate/Area] 73 mL/min/{1.73_m2} >60 [facility] Comment on above: mL/min/1.73m2 CKD-EP I Creatinine Equation (2020) Hematocrit Auto (Bld) [Volum e fraction]Ordered By: Guilherme Butt on 11-21-2024 Hematocrit (Bld) [Volume fraction] 39.4 % Low 40-54 [facility] Hemoglobin measurementOrdere d By: Guilherme Butt on 11-21-2024 Hemoglobin (Bld) [Mass/Vol] 13.1 g/dL 13.0-16.5 [facility] Immature granulocytes/100 WB C Auto (Bld)Ordered By: Guilherme Butt on 11-21-2024 Immature granulocytes/100 WBC (Bld) 0.400 % 0.0-0.9 [facility] Comment on above: IG% - Immature Granu locytes (promyelocytes, myelocytes and metamyelocytes) > 1% indicates that a LEFT SHIFT is Present. Laboratory - Chemistry and C hemistry - challengeOrdered By: Guilherme Butt on 11-21-2024 AST [Catalytic activity/Vol] 19 U/L <38 [facility] MCV (mean corpuscular volume ) determinationOrdered By: Guilherme Butt on 11-21-2024 MCV (RBC) [Entitic vol] 97.5 fL High 80-94 [facility] Mean corpuscular hemoglobin (MCH) determinationOrdered By: Guilherme Butt 11-21-2024 MCH (RBC) [Entitic mass] 32.4 pg High 27.0-32.0 [facility] Mean corpuscular hemoglobin concentration (MCHC) determinationOrdered By: Guilherme Butt on 11-21-2024 MCHC (RBC) [Mass/Vol] 33.2 g/dL 32-36 [facility] Mean platelet volume determi nationOrdered By: Guilherme Butt on 11-21-2024 Platelet mean volume (Bld) [Entitic vol] 9.5 fL 6.2-12.0 [facility] Monocyte percentageOrdered B y: Guilherme Butt on 11-21-2024 Monocytes/100 WBC (Bld) 8.0 % 0-10 [facility] Neutrophil percentageOrdered By: Guilherme Butt on 11-21-2024 Neutrophils/100 WBC (Bld) 65.3 % 47-70 [facility] Nucleated red blood cell per centageOrdered By: Guilherme Butt on 11-21-2024 Nucleated RBC/100 WBC (Bld) [Ratio] 0 % 0-5 [facility] Platelet countOrdered By: Roselia Butt on 11-21-2024 Platelets (Bld) [#/Vol] 185 10*3/uL 150-450 [facility] Potassium measurement (mass/ volume)Ordered By: Guilherme Butt on 11-21-2024 Potassium (Unsp spec) [Mass/Vol] 4.5 mmol/L 3.3-5.1 [facility] RBC Auto (Bld) [#/Vol]Ordere d By: Guilherme Butt on 11-21-2024 RBC (Bld) [#/Vol] 4.04 10*6/uL Low 4.6-6.2 [facility] Serum creatinine measurement (mass/volume)Ordered By: Guilherme Butt on 11-21-2024 Creatinine [Mass/Vol] 1.04 mg/dL 0.70-1.20 [facility] Serum globulin measurementOr dered By: Guilherme Butt on 11-21-2024 Globulin (S) [Mass/Vol] 2.4 g/dL 2.2-4.2 [facility] Serum glucose measurement (m ass/volume)Ordered By: Guilherme Butt on 11-21-2024 Glucose [Mass/Vol] 142 mg/dL High 70-99 [facility] Serum or plasma alanine aly otransferase (ALT) measurementOrdered By: Guilherme Butt on 11-21-2024 ALT [Catalytic activity/Vol] 8 U/L <47 [facility] Serum or plasma albumin farshad urement (mass/volume)Ordered By: Guilherme Butt on 11-21-2024 Albumin [Mass/Vol] 4.1 g/dL 3.4-4.8 [facility] Serum or plasma albumin/glob ulin mass ratioOrdered By: Guilherme Butt on 11-21-2024 Albumin/Globulin [Mass ratio] 1.8 {ratio} 0.9-2.4 [facility] Serum or plasma alkaline jean-claude sphatase measurementOrdered By: Kellyalfredodmitri Branhammarianjessenia on 11-21-2024 ALP [Catalytic activity/Vol] 109 U/L 40-129 [facility] Serum or plasma calcium farshad urement (mass/volume)Ordered By: Guilherme Butt on 11-21-2024 Calcium [Mass/Vol] 9.2 mg/dL 7.6-11.0 [facility] Serum or plasma urea nitroge n measurement (mass/volume)Ordered By: Guilherme Butt on 11-21-2024 Urea nitrogen [Mass/Vol] 26 mg/dL High 4-19 [facility] Sodium levelOrdered By: Kelly anne Filomena on 11-21-2024 Sodium [Moles/Vol] 141 mmol/L 133-145 [facility] T4 freeOrdered By: Kellyalfredodmitri Butt on 11-21-2024 Free T4 [Mass/Vol] 1.10 ng/dL 0.76-1.46 [facility] TSH DL <= 0.005 mIU/L QnOrde red By: Roseliakierananne Yonasmarianjessenia on 11-21-2024 TSH Qn 3.090 uIU/mL 0.300-4.200 [facility] Total proteinOrdered By: Jamaaljessenia iyer Yonasmarianjessenia on 11-21-2024 Protein [Mass/Vol] 6.5 g/dL 5.9-8.4 [facility] White blood cell (WBC) count Ordered By: Guilherme Butt on 11-21-2024 WBC (Bld) [#/Vol] 5.0 10*3/uL 4.4-11.0 [facility] Anion gap in Serum or Plasma Ordered By: Cecy Gray on 10-24-2024 Anion gap [Moles/Vol] 9 mmol/L 5-15 [facility] BUN/creatinine ratioOrdered By: Cecy Gray on 10-24-2024 Urea nitrogen/Creatinine [Mass ratio] 25.6 mg/mg High 10-20 [facility] Carbon dioxide, total [Moles /volume] in Central venous bloodOrdered By: Cecy Gray on 10-24-2024 CO2 [Moles/Vol] 29.3 mmol/L 21.0-32.0 [facility] Chloride assayOrdered By: Roderick Gray on 10-24-2024 Chloride [Moles/Vol] 104 mmol/L 98-108 [facility] Erythrocyte distribution wid th ratioOrdered By: Cecy Gray on 10-24-2024 Erythrocyte distribution width (RBC) [Ratio] 12.8 % 11.6-14.6 [facility] Erythrocyte distribution wid th standard deviationOrdered By: Cecy Gray on 10-24-2024 Erythrocyte distribution width (RBC) [Ratio] 45.1 fl High 35.1-43.9 [facility] Glomerular filtration rate ( GFR) estimation/1.73 sq m using serum, plasma, or whole bOrdered By: Cecy Gray on 10-24-2024 GFR/1.73 sq M.predicted among non-blacks MDRD (S/P/Bld) [Vol rate/Area] 84 mL/min/{1.73_m2} >60 [facility] Comment on above: mL/min/1.73m2 CKD-EP I Creatinine Equation (2020) Hematocrit Auto (Bld) [Volum e fraction]Ordered By: Cecy Gray on 10-24-2024 Hematocrit (Bld) [Volume fraction] 39.4 % Low 40-54 [facility] Hemoglobin measurementOrdere d By: Cecy Gray on 10-24-2024 Hemoglobin (Bld) [Mass/Vol] 13.2 g/dL 13.0-16.5 [facility] MCV (mean corpuscular volume ) determinationOrdered By: Cecy Gray 10-24-2024 MCV (RBC) [Entitic vol] 96.3 fL High 80-94 [facility] Mean corpuscular hemoglobin (MCH) determinationOrdered By: Cecy Gray 10-24-2024 MCH (RBC) [Entitic mass] 32.3 pg High 27.0-32.0 [facility] Mean corpuscular hemoglobin concentration (MCHC) determinationOrdered By: Cecy Gray 10-24-2024 MCHC (RBC) [Mass/Vol] 33.5 g/dL 32-36 [facility] Mean platelet volume determi nationOrdered By: Cecy Gray on 10-24-2024 Platelet mean volume (Bld) [Entitic vol] 9.1 fL 6.2-12.0 [facility] Platelet countOrdered By: Roderick Gray on 10-24-2024 Platelets (Bld) [#/Vol] 200 10*3/uL 150-450 [facility] Potassium measurement (mass/ volume)Ordered By: Cecy Gray on 10-24-2024 Potassium (Unsp spec) [Mass/Vol] 4.5 mmol/L 3.3-5.1 [facility] RBC Auto (Bld) [#/Vol]Ordere d By: Cecy Gray on 10-24-2024 RBC (Bld) [#/Vol] 4.09 10*6/uL Low 4.6-6.2 [facility] Serum creatinine measurement (mass/volume)Ordered By: Cecy Gray on 10-24-2024 Creatinine [Mass/Vol] 0.93 mg/dL 0.70-1.20 [facility] Serum glucose measurement (m ass/volume)Ordered By: Cecy Gray on 10-24-2024 Glucose [Mass/Vol] 85 mg/dL 70-99 [facility] Serum or plasma calcium farshad urement (mass/volume)Ordered By: Cecy Gray on 10-24-2024 Calcium [Mass/Vol] 9.3 mg/dL 7.6-11.0 [facility] Serum or plasma urea nitroge n measurement (mass/volume)Ordered By: Cecy Gray on 10-24-2024 Urea nitrogen [Mass/Vol] 24 mg/dL High 4-19 [facility] Sodium levelOrdered By: Mayi Gray on 10-24-2024 Sodium [Moles/Vol] 142 mmol/L 133-145 [facility] White blood cell (WBC) count Ordered By: Cecy Gray on 10-24-2024 WBC (Bld) [#/Vol] 4.7 10*3/uL 4.4-11.0 [facility] Cardiology Visit Reporton Cardiology Visit Report [facility] [address] [place], [place] [id number] OFFICE VISIT Date of Service: 10/08/24 MR#: [id number] Acct: [id number] Name: IGOR CRUZ Rep #: [id number] : 1945 Provider: Dr. Dwain Yen MD Age/Sex: 79/M Location: [facility] Status: Signed HPI HPI History of Present [...] NIBP Intake Visit Reasons: OVER DUE FU [place] [employer] Required: No Accompanied by: Self Is patient [...] stress test Hypertension Kidney disease Lives in [facility] Parkinson disease Parkinson's disease Syncope Valvular heart [...] Neuro: Neg (more content not included)... Normal [facility] Anion gap in Serum or Plasma Ordered By: Guliherme Butt on 09-19-2024 Anion gap [Moles/Vol] 9 mmol/L 5-15 [facility] BUN/creatinine ratioOrdered By: Guilherme Butt on 09-19-2024 Urea nitrogen/Creatinine [Mass ratio] 26.1 mg/mg High 10-20 [facility] Carbon dioxide, total [Moles /volume] in Central venous bloodOrdered By: Guilherme Butt on 09-19-2024 CO2 [Moles/Vol] 28.7 mmol/L 21.0-32.0 [facility] Chloride assayOrdered By: Roselia Butt on 09-19-2024 Chloride [Moles/Vol] 103 mmol/L 98-108 [facility] Erythrocyte distribution wid th ratioOrdered By: Guilherme Butt on 09-19-2024 Erythrocyte distribution width (RBC) [Ratio] 12.7 % 11.6-14.6 [facility] Erythrocyte distribution wid th standard deviationOrdered By: Guilherme Butt on 09-19-2024 Erythrocyte distribution width (RBC) [Ratio] 44.8 fl High 35.1-43.9 [facility] Glomerular filtration rate ( GFR) estimation/1.73 sq m using serum, plasma, or whole bOrdered By: Guilherme Butt on 09-19-2024 GFR/1.73 sq M.predicted among non-blacks MDRD (S/P/Bld) [Vol rate/Area] 87 mL/min/{1.73_m2} >60 [facility] Comment on above: mL/min/1.73m2 CKD-EP I Creatinine Equation (2020) Hematocrit Auto (Bld) [Volum e fraction]Ordered By: Guilherme Butt on 09-19-2024 Hematocrit (Bld) [Volume fraction] 39.4 % Low 40-54 [facility] Hemoglobin measurementOrdere d By: Guilherme Butt on 09-19-2024 Hemoglobin (Bld) [Mass/Vol] 13.2 g/dL 13.0-16.5 [facility] MCV (mean corpuscular volume ) determinationOrdered By: Guilherme Butt on 09-19-2024 MCV (RBC) [Entitic vol] 96.3 fL High 80-94 [facility] Mean corpuscular hemoglobin (MCH) determinationOrdered By: kieranbark riverdmitri Butt on 09-19-2024 MCH (RBC) [Entitic mass] 32.3 pg High 27.0-32.0 [facility] Mean corpuscular hemoglobin concentration (MCHC) determinationOrdered By: felipa Btut on 09-19-2024 MCHC (RBC) [Mass/Vol] 33.5 g/dL 32-36 [facility] Mean platelet volume determi nationOrdered By: Guilherme Butt on 09-19-2024 Platelet mean volume (Bld) [Entitic vol] 9.0 fL 6.2-12.0 [facility] Platelet countOrdered By: Roselia Butt on 09-19-2024 Platelets (Bld) [#/Vol] 178 10*3/uL 150-450 [facility] Potassium measurement (mass/ volume)Ordered By: Guilherme Butt 09-19-2024 Potassium (Unsp spec) [Mass/Vol] 4.6 mmol/L 3.3-5.1 [facility] RBC Auto (Bld) [#/Vol]Ordere d By: Guilherme Butt on 09-19-2024 RBC (Bld) [#/Vol] 4.09 10*6/uL Low 4.6-6.2 [facility] Serum creatinine measurement (mass/volume)Ordered By: Guilherme Butt on 09-19-2024 Creatinine [Mass/Vol] 0.89 mg/dL 0.70-1.20 [facility] Serum glucose measurement (m ass/volume)Ordered By: Guilherme Butt on 09-19-2024 Glucose [Mass/Vol] 86 mg/dL 70-99 [facility] Serum or plasma calcium farshad urement (mass/volume)Ordered By: Guilherme Butt on 09-19-2024 Calcium [Mass/Vol] 9.1 mg/dL 7.6-11.0 [facility] Serum or plasma urea nitroge n measurement (mass/volume)Ordered By: Guilherme Butt on 09-19-2024 Urea nitrogen [Mass/Vol] 23 mg/dL High 4-19 [facility] Sodium levelOrdered By: Kelly Butt on 09-19-2024 Sodium [Moles/Vol] 141 mmol/L 133-145 [facility] White blood cell (WBC) count Ordered By: Guilherme Butt on 09-19-2024 WBC (Bld) [#/Vol] 4.1 10*3/uL Low 4.4-11.0 [facility] Anion gap in Serum or Plasma Ordered By: Cecy Gray on 08-22-2024 Anion gap [Moles/Vol] 10 mmol/L 5-15 [facility] BUN/creatinine ratioOrdered By: Cecy Gray on 08-22-2024 Urea nitrogen/Creatinine [Mass ratio] 24.8 mg/mg High 10-20 [facility] Carbon dioxide, total [Moles /volume] in Central venous bloodOrdered By: Cecy Gray on 08-22-2024 CO2 [Moles/Vol] 26.8 mmol/L 21.0-32.0 [facility] Chloride assayOrdered By: Roderick Gray on 08-22-2024 Chloride [Moles/Vol] 103 mmol/L 98-108 [facility] Erythrocyte distribution wid th ratioOrdered By: Cecy Gray on 08-22-2024 Erythrocyte distribution width (RBC) [Ratio] 12.6 % 11.6-14.6 [facility] Erythrocyte distribution wid th standard deviationOrdered By: Cecy Gray on 08-22-2024 Erythrocyte distribution width (RBC) [Ratio] 44.4 fl High 35.1-43.9 [facility] Glomerular filtration rate ( GFR) estimation/1.73 sq m using serum, plasma, or whole bOrdered By: Cecy Gray on 08-22-2024 GFR/1.73 sq M.predicted among non-blacks MDRD (S/P/Bld) [Vol rate/Area] 74 mL/min/{1.73_m2} >60 [facility] Comment on above: mL/min/1.73m2 CKD-EP I Creatinine Equation (2020) Hematocrit Auto (Bld) [Volum e fraction]Ordered By: Cecy Gray on 08-22-2024 Hematocrit (Bld) [Volume fraction] 38.2 % Low 40-54 [facility] Hemoglobin measurementOrdere d By: Cecy Gray on 08-22-2024 Hemoglobin (Bld) [Mass/Vol] 13.0 g/dL 13.0-16.5 [facility] MCV (mean corpuscular volume ) determinationOrdered By: Cecy Gray 08-22-2024 MCV (RBC) [Entitic vol] 95.5 fL High 80-94 [facility] Mean corpuscular hemoglobin (MCH) determinationOrdered By: Cecy Gray 08-22-2024 MCH (RBC) [Entitic mass] 32.5 pg High 27.0-32.0 [facility] Mean corpuscular hemoglobin concentration (MCHC) determinationOrdered By: Cecy Gray 08-22-2024 MCHC (RBC) [Mass/Vol] 34.0 g/dL 32-36 [facility] Mean platelet volume determi nationOrdered By: Cecy Gray 08-22-2024 Platelet mean volume (Bld) [Entitic vol] 8.9 fL 6.2-12.0 [facility] Platelet countOrdered By: Roderick Gray on 08-22-2024 Platelets (Bld) [#/Vol] 169 10*3/uL 150-450 [facility] Potassium measurement (mass/ volume)Ordered By: Cecy Gray on 08-22-2024 Potassium (Unsp spec) [Mass/Vol] 4.5 mmol/L 3.3-5.1 [facility] RBC Auto (Bld) [#/Vol]Ordere d By: Cecy Gray on 08-22-2024 RBC (Bld) [#/Vol] 4.00 10*6/uL Low 4.6-6.2 [facility] Serum creatinine measurement (mass/volume)Ordered By: Cecy Gray on 08-22-2024 Creatinine [Mass/Vol] 1.03 mg/dL 0.70-1.20 [facility] Serum glucose measurement (m ass/volume)Ordered By: Cecy Gray on 08-22-2024 Glucose [Mass/Vol] 83 mg/dL 70-99 [facility] Serum or plasma calcium farshad urement (mass/volume)Ordered By: Cecy Gray on 08-22-2024 Calcium [Mass/Vol] 9.0 mg/dL 7.6-11.0 [facility] Serum or plasma urea nitroge n measurement (mass/volume)Ordered By: Cecy Gray on 08-22-2024 Urea nitrogen [Mass/Vol] 26 mg/dL High 4-19 [facility] Sodium levelOrdered By: Mayi Gray on 08-22-2024 Sodium [Moles/Vol] 140 mmol/L 133-145 [facility] White blood cell (WBC) count Ordered By: Cecy Gray on 08-22-2024 WBC (Bld) [#/Vol] 4.0 10*3/uL Low 4.4-11.0 [facility] Anion gap in Serum or Plasma Ordered By: Guilherme Butt on 07-25-2024 Anion gap [Moles/Vol] 10 mmol/L 5-15 [facility] BUN/creatinine ratioOrdered By: Guilherme Butt on 07-25-2024 Urea nitrogen/Creatinine [Mass ratio] 28.4 mg/mg High 10-20 [facility] Carbon dioxide, total [Moles /volume] in Central venous bloodOrdered By: Guilherme Butt on 07-25-2024 CO2 [Moles/Vol] 26.7 mmol/L 21.0-32.0 [facility] Chloride assayOrdered By: Roselia Butt on 07-25-2024 Chloride [Moles/Vol] 105 mmol/L 98-108 [facility] Erythrocyte distribution wid th (RBC) [Ratio]Ordered By: Guilherme Butt on 07-25-2024 Erythrocyte distribution width (RBC) [Entitic vol] 44.6 fL High 35.1-43.9 [facility] Erythrocyte distribution wid th ratioOrdered By: Guilherme Butt 07-25-2024 Erythrocyte distribution width (RBC) [Ratio] 12.8 % 11.6-14.6 [facility] Erythrocyte distribution wid th standard deviationOrdered By: Guilherme Butt 07-25-2024 Erythrocyte distribution width (RBC) [Ratio] 44.6 fl High 35.1-43.9 [facility] GFR/1.73 sq M.predicted jane g non-blacks MDRD (S/P/Bld) [Vol rate/Area]Ordered By: Guilherme Butt on 07-25-2024 Estimated GFR (MDRD) Non-Af Amer 85 >60 [facility] Comment on above: mL/min/1.73m2 CKD-EP I Creatinine Equation (2020) Glomerular filtration rate ( GFR) estimation/1.73 sq m using serum, plasma, or whole bOrdered By: Guilherme Butt on 07-25-2024 GFR/1.73 sq M.predicted among non-blacks MDRD (S/P/Bld) [Vol rate/Area] 85 mL/min/{1.73_m2} >60 [facility] Comment on above: mL/min/1.73m2 CKD-EP I Creatinine Equation (2020) Hematocrit Auto (Bld) [Volum e fraction]Ordered By: Guilherme Butt 07-25-2024 Hematocrit (Bld) [Volume fraction] 38.4 % Low 40-54 [facility] Hemoglobin measurementOrdere d By: Guilherme Butt on 07-25-2024 Hemoglobin (Bld) [Mass/Vol] 13.1 g/dL 13.0-16.5 [facility] MCV (mean corpuscular volume ) determinationOrdered By: Guilherme Butt on 07-25-2024 MCV (RBC) [Entitic vol] 94.8 fL High 80-94 [facility] Mean corpuscular hemoglobin (MCH) determinationOrdered By: Guilherme Butt on 07-25-2024 MCH (RBC) [Entitic mass] 32.3 pg High 27.0-32.0 [facility] Mean corpuscular hemoglobin concentration (MCHC) determinationOrdered By: Guilherme Butt on 07-25-2024 MCHC (RBC) [Mass/Vol] 34.1 g/dL 32-36 [facility] Mean platelet volume determi nationOrdered By: Guilherme Butt on 07-25-2024 Platelet mean volume (Bld) [Entitic vol] 9.1 fL 6.2-12.0 [facility] Platelet countOrdered By: Roselia Butt on 07-25-2024 Platelets (Bld) [#/Vol] 174 10*3/uL 150-450 [facility] Potassium (Unsp spec) [Mass/ Vol]Ordered By: Guilherme Butt on 07-25-2024 Potassium [Moles/Vol] 4.5 mmol/L 3.3-5.1 [facility] Potassium measurement (mass/ volume)Ordered By: Guilherme Butt on 07-25-2024 Potassium (Unsp spec) [Mass/Vol] 4.5 mmol/L 3.3-5.1 [facility] RBC Auto (Bld) [#/Vol]Ordere d By: Guilherme Butt on 07-25-2024 RBC (Bld) [#/Vol] 4.05 10*6/uL Low 4.6-6.2 [facility] Serum creatinine measurement (mass/volume)Ordered By: Guilherme Butt on 07-25-2024 Creatinine [Mass/Vol] 0.92 mg/dL 0.70-1.20 [facility] Serum glucose measurement (m ass/volume)Ordered By: Guilherme Butt on 07-25-2024 Glucose [Mass/Vol] 93 mg/dL 70-99 [facility] Serum or plasma calcium farshad urement (mass/volume)Ordered By: Guilherme Butt on 07-25-2024 Calcium [Mass/Vol] 9.2 mg/dL 7.6-11.0 [facility] Serum or plasma urea nitroge n measurement (mass/volume)Ordered By: Guilherme Butt on 07-25-2024 Urea nitrogen [Mass/Vol] 26 mg/dL High 4-19 [facility] Sodium levelOrdered By: Kelly Butt on 07-25-2024 Sodium [Moles/Vol] 141 mmol/L 133-145 [facility] White blood cell (WBC) count Ordered By: Guilherme Butt on 07-25-2024 WBC (Bld) [#/Vol] 4.5 10*3/uL 4.4-11.0 [facility] Blood urea nitrogen (BUN)/cr eatinine ratioOrdered By: Guilherme Butt on 06-27-2024 Urea nitrogen/Creatinine [Mass ratio] 31.6 mg/mg High 10-20 [facility] Carbon dioxide measurementOr dered By: Guilherme Butt on 06-27-2024 CO2 [Moles/Vol] 28.0 mmol/L 21.0-32.0 [facility] Chloride measurementOrdered By: Guilherme Butt on 06-27-2024 Chloride [Moles/Vol] 107 mmol/L 98-107 [facility] Erythrocyte distribution wid th (RBC) [Ratio]Ordered By: Guilherme Butt on 06-27-2024 Erythrocyte distribution width (RBC) [Entitic vol] 43.9 fL 35.1-43.9 [facility] Erythrocyte distribution wid th ratioOrdered By: Guilherme Butt on 06-27-2024 Erythrocyte distribution width (RBC) [Ratio] 12.6 % 11.6-14.6 [facility] Erythrocyte distribution wid th standard deviationOrdered By: Guilherme Butt on 06-27-2024 Erythrocyte distribution width (RBC) [Ratio] 43.9 fl 35.1-43.9 [facility] Estimated glomerular filtrat ion rate (GFR) AmericanOrdered By: Guilherme Butt on 06-27-2024 Estimated GFR (MDRD) Amer 99 mL/min >60 [facility] Comment on above: GFR Calc Glomerular filtration rate ( GFR) estimationOrdered By: Guilherme Butt on 06-27-2024 Estimated GFR (MDRD) Non-Af Amer 81 mL/min >60 [facility] Comment on above: Non- GFR Calc GFR/1.73 sq M.predicted among non-blacks MDRD (S/P/Bld) [Vol rate/Area] 81 mL/min/{1.73_m2} >60 [facility] Comment on above: Non- GFR Calc Glucose measurementOrdered B y: Guilherme Butt on 06-27-2024 Glucose [Mass/Vol] 88 mg/dL 74-106 [facility] Hematocrit Auto (Bld) [Volum e fraction]Ordered By: Guilherme Butt on 06-27-2024 Hematocrit (Bld) [Volume fraction] 37.5 % Low 40-54 [facility] Hemoglobin measurementOrdere d By: Guilherme Butt on 06-27-2024 Hemoglobin (Bld) [Mass/Vol] 12.7 g/dL Low 13.0-16.5 [facility] MCV (mean corpuscular volume ) determinationOrdered By: Guilherme Butt on 06-27-2024 MCV (RBC) [Entitic vol] 94.7 fL High 80-94 [facility] Mean corpuscular hemoglobin (MCH) determinationOrdered By: Guilherme Butt on 06-27-2024 MCH (RBC) [Entitic mass] 32.1 pg High 27.0-32.0 [facility] Mean corpuscular hemoglobin concentration (MCHC) determinationOrdered By: Guilherme Butt 06-27-2024 MCHC (RBC) [Mass/Vol] 33.9 g/dL 32-36 [facility] Mean platelet volume determi nationOrdered By: Guilherme Branhammarianjessenia on 06-27-2024 Platelet mean volume (Bld) [Entitic vol] 9.1 fL 6.2-12.0 [facility] Platelet countOrdered By: cristeladmitri Branhammarianjessenia on 06-27-2024 Platelets (Bld) [#/Vol] 173 10*3/uL 150-450 [facility] Potassium measurementOrdered By: Kellyalfredodmitri Branhammarianjessenia on 06-27-2024 Potassium [Moles/Vol] 4.1 mmol/L 3.5-5.1 [facility] RBC Auto (Bld) [#/Vol]Ordere d By: Kellyalfredodmitri Branhammarianjessenia on 06-27-2024 RBC (Bld) [#/Vol] 3.96 10*6/uL Low 4.6-6.2 [facility] Serum anion gap measurementO rdered By: Kellyalfredodmitri Branhammarianjessenia on 06-27-2024 Anion gap [Moles/Vol] 6 mmol/L 5-15 [facility] Serum or plasma calcium farshad urement (mass/volume)Ordered By: Guilherme Branhammarianjessenia on 06-27-2024 Calcium [Mass/Vol] 9.0 mg/dL 8.5-10.1 [facility] Serum or plasma creatinine m easurement (mass/volume)Ordered By: Guilherme Branhammarianjessenia on 06-27-2024 Creatinine [Mass/Vol] 0.95 mg/dL 0.70-1.30 [facility] Comment on above: The validity of the calculated GFR & GFRAA in patients over 70 years has not been determined. Clinical correlation is essential. Serum or plasma urea nitroge n measurement (mass/volume)Ordered By: Guilherme Butt on 06-27-2024 Urea nitrogen [Mass/Vol] 30 mg/dL High 7-18 [facility] Sodium levelOrdered By: Kelly anne Yonasmarianjessenia on 06-27-2024 Sodium [Moles/Vol] 141 mmol/L 136-145 [facility] White blood cell (WBC) count Ordered By: Kellyalfredodmitri Branhammarianjessenia on 06-27-2024 WBC (Bld) [#/Vol] 4.2 10*3/uL Low 4.4-11.0 [facility] Blood urea nitrogen (BUN)/cr eatinine ratioOrdered By: Guilherme Butt on 05-23-2024 Urea nitrogen/Creatinine [Mass ratio] 27.9 mg/mg High 10-20 [facility] Carbon dioxide measurementOr dered By: Guilherme Butt on 05-23-2024 CO2 [Moles/Vol] 32.0 mmol/L 21.0-32.0 [facility] Chloride measurementOrdered By: Guilherme Butt on 05-23-2024 Chloride [Moles/Vol] 105 mmol/L 98-107 [facility] Erythrocyte distribution wid th (RBC) [Ratio]Ordered By: Guilherme Butt on 05-23-2024 Erythrocyte distribution width (RBC) [Entitic vol] 44.6 fL High 35.1-43.9 [facility] Erythrocyte distribution wid th ratioOrdered By: Guilherme Butt on 05-23-2024 Erythrocyte distribution width (RBC) [Ratio] 12.7 % 11.6-14.6 [facility] Erythrocyte distribution wid th standard deviationOrdered By: Guilherme Butt on 05-23-2024 Erythrocyte distribution width (RBC) [Ratio] 44.6 fl High 35.1-43.9 [facility] Estimated glomerular filtrat ion rate (GFR) AmericanOrdered By: Guilherme Butt on 05-23-2024 Estimated GFR (MDRD) Amer 101 mL/min >60 [facility] Comment on above: GFR Calc Glomerular filtration rate ( GFR) estimationOrdered By: Guilherme Butt on 05-23-2024 Estimated GFR (MDRD) Non-Af Amer 83 mL/min >60 [facility] Comment on above: Non- GFR Calc GFR/1.73 sq M.predicted among non-blacks MDRD (S/P/Bld) [Vol rate/Area] 83 mL/min/{1.73_m2} >60 [facility] Comment on above: Non- GFR Calc Glucose measurementOrdered B y: Guilherme Butt on 05-23-2024 Glucose [Mass/Vol] 90 mg/dL 74-106 [facility] Hematocrit Auto (Bld) [Volum e fraction]Ordered By: Guilherme Butt on 05-23-2024 Hematocrit (Bld) [Volume fraction] 40.6 % 40-54 [facility] Hemoglobin measurementOrdere d By: Guilherme Butt on 05-23-2024 Hemoglobin (Bld) [Mass/Vol] 13.4 g/dL 13.0-16.5 [facility] MCV (mean corpuscular volume ) determinationOrdered By: Guilherme Butt on 05-23-2024 MCV (RBC) [Entitic vol] 95.8 fL High 80-94 [facility] Mean corpuscular hemoglobin (MCH) determinationOrdered By: Guilherme Butt 05-23-2024 MCH (RBC) [Entitic mass] 31.6 pg 27.0-32.0 [facility] Mean corpuscular hemoglobin concentration (MCHC) determinationOrdered By: Guilherme Butt on 05-23-2024 MCHC (RBC) [Mass/Vol] 33.0 g/dL 32-36 [facility] Mean platelet volume determi nationOrdered By: Guilherme Butt on 05-23-2024 Platelet mean volume (Bld) [Entitic vol] 9.3 fL 6.2-12.0 [facility] Platelet countOrdered By: Roselia Butt on 05-23-2024 Platelets (Bld) [#/Vol] 181 10*3/uL 150-450 [facility] Potassium measurementOrdered By: Guilherme Butt on 05-23-2024 Potassium [Moles/Vol] 4.4 mmol/L 3.5-5.1 [facility] RBC Auto (Bld) [#/Vol]Ordere d By: Guilherme Butt on 05-23-2024 RBC (Bld) [#/Vol] 4.24 10*6/uL Low 4.6-6.2 [facility] Serum anion gap measurementO rdered By: Guilherme Butt on 05-23-2024 Anion gap [Moles/Vol] 2 mmol/L Low 5-15 [facility] Serum or plasma calcium farshad urement (mass/volume)Ordered By: Guilherme Butt on 05-23-2024 Calcium [Mass/Vol] 9.2 mg/dL 8.5-10.1 [facility] Serum or plasma creatinine m easurement (mass/volume)Ordered By: Guilherme Butt on 05-23-2024 Creatinine [Mass/Vol] 0.93 mg/dL 0.70-1.30 [facility] Comment on above: The validity of the calculated GFR & GFRAA in patients over 70 years has not been determined. Clinical correlation is essential. Serum or plasma urea nitroge n measurement (mass/volume)Ordered By: Guilherme Butt on 05-23-2024 Urea nitrogen [Mass/Vol] 26 mg/dL High 7-18 [facility] Sodium levelOrdered By: Kelly Butt on 05-23-2024 Sodium [Moles/Vol] 138 mmol/L 136-145 [facility] White blood cell (WBC) count Ordered By: Guilherme Butt on 05-23-2024 WBC (Bld) [#/Vol] 4.7 10*3/uL 4.4-11.0 [facility] Blood urea nitrogen (BUN)/cr eatinine ratioOrdered By: Guilherme Butt on 04-25-2024 Urea nitrogen/Creatinine [Mass ratio] 28.1 mg/mg High 10-20 [facility] Carbon dioxide measurementOr dered By: Guilherme Butt on 04-25-2024 CO2 [Moles/Vol] 31.0 mmol/L 21.0-32.0 [facility] Chloride measurementOrdered By: Guilherme Butt on 04-25-2024 Chloride [Moles/Vol] 104 mmol/L 98-107 [facility] Erythrocyte distribution wid th (RBC) [Ratio]Ordered By: Guilherme Butt on 04-25-2024 Erythrocyte distribution width (RBC) [Entitic vol] 45.0 fL High 35.1-43.9 [facility] Erythrocyte distribution wid th ratioOrdered By: Guilherme Butt on 04-25-2024 Erythrocyte distribution width (RBC) [Ratio] 12.8 % 11.6-14.6 [facility] Estimated glomerular filtrat ion rate (GFR) AmericanOrdered By: Guilherme Butt on 04-25-2024 Estimated GFR (MDRD) Amer 93 mL/min >60 [facility] Comment on above: GFR Calc Glomerular filtration rate ( GFR) estimationOrdered By: Guilherme Butt on 04-25-2024 Estimated GFR (MDRD) Non-Af Amer 77 mL/min >60 [facility] Comment on above: Non- GFR Calc Glucose measurementOrdered B y: Guilherme Butt on 04-25-2024 Glucose [Mass/Vol] 125 mg/dL High 74-106 [facility] Comment on above: Fasting Glucose resu lt from 100 to 125 mg/dL suggests IMPAIRED HOMEOSTASIS per A.D.A. criteria. Hematocrit Auto (Bld) [Volum e fraction]Ordered By: Guilherme Butt on 04-25-2024 Hematocrit (Bld) [Volume fraction] 39.0 % Low 40-54 [facility] Hemoglobin measurementOrdere d By: Guilherme Butt 04-25-2024 Hemoglobin (Bld) [Mass/Vol] 12.8 g/dL Low 13.0-16.5 [facility] MCV (mean corpuscular volume ) determinationOrdered By: Guilherme Butt 04-25-2024 MCV (RBC) [Entitic vol] 95.8 fL High 80-94 [facility] Mean corpuscular hemoglobin (MCH) determinationOrdered By: Guilherme Butt on 04-25-2024 MCH (RBC) [Entitic mass] 31.4 pg 27.0-32.0 [facility] Mean corpuscular hemoglobin concentration (MCHC) determinationOrdered By: Guilherme Butt on 04-25-2024 MCHC (RBC) [Mass/Vol] 32.8 g/dL 32-36 [facility] Mean platelet volume determi nationOrdered By: Guilherme Butt on 04-25-2024 Platelet mean volume (Bld) [Entitic vol] 9.2 fL 6.2-12.0 [facility] Platelet countOrdered By: Roselia felipa Butt on 04-25-2024 Platelets (Bld) [#/Vol] 176 10*3/uL 150-450 [facility] Potassium measurementOrdered By: Guilherme Butt on 04-25-2024 Potassium [Moles/Vol] 3.9 mmol/L 3.5-5.1 [facility] RBC Auto (Bld) [#/Vol]Ordere d By: Guilherme Yonasjack on 04-25-2024 RBC (Bld) [#/Vol] 4.07 10*6/uL Low 4.6-6.2 [facility] Serum anion gap measurementO rdered By: Guilherme Butt on 04-25-2024 Anion gap [Moles/Vol] 4 mmol/L Low 5-15 [facility] Serum or plasma calcium farshad urement (mass/volume)Ordered By: Roseliakierananne Yonasmarianjessenia on 04-25-2024 Calcium [Mass/Vol] 9.0 mg/dL 8.5-10.1 [facility] Serum or plasma creatinine m easurement (mass/volume)Ordered By: Roseliakierananne Yonasjack on 04-25-2024 Creatinine [Mass/Vol] 1.00 mg/dL 0.70-1.30 [facility] Comment on above: The validity of the calculated GFR & GFRAA in patients over 70 years has not been determined. Clinical correlation is essential. Serum or plasma urea nitroge n measurement (mass/volume)Ordered By: Roseliafelipa Branhammarianjessenia on 04-25-2024 Urea nitrogen [Mass/Vol] 28 mg/dL High 7-18 [facility] Sodium levelOrdered By: Kelly rodríguez Yonasjack on 04-25-2024 Sodium [Moles/Vol] 139 mmol/L 136-145 [facility] White blood cell (WBC) count Ordered By: Guilherme Yonasmarianjessenia on 04-25-2024 WBC (Bld) [#/Vol] 4.2 10*3/uL Low 4.4-11.0 [facility] Basophil percentageOrdered B y: Efewanne Butt on 08-24-2023 Chloride [Moles/Vol] 105 mmol/L 98-107 [facility] Glucose [Mass/Vol] 86 mg/dL 74-106 [facility] Hemoglobin (Bld) [Mass/Vol] 13.3 g/dL 13.0-16.5 [facility] Potassium [Moles/Vol] 4.5 mmol/L 3.5-5.1 [facility] Sodium [Moles/Vol] 138 mmol/L 136-145 [facility] WBC (Bld) [#/Vol] 4.6 10*3/uL 4.4-11.0 [facility] Determination of erythrocyte mean corpuscular volume (MCV)Ordered By: Guilherme Butt on 08-24-2023 MCV (RBC) [Entitic vol] 96.2 fL 80-94 [facility] Erythrocyte distribution wid th ratioOrdered By: Kellybark riverdmitri Butt on 08-24-2023 Erythrocyte distribution width (RBC) [Ratio] 13.0 % 11.6-14.6 [facility] Erythrocyte distribution wid th standard deviationOrdered By: Kellybark riverdmitri Butt on 08-24-2023 Erythrocyte distribution width (RBC) [Entitic vol] 46.1 fL 35.1-43.9 [facility] Hematocrit Auto (Bld) [Volum e fraction]Ordered By: Guilherme Butt on 08-24-2023 Hematocrit (Bld) [Volume fraction] 40.6 % 40-54 [facility] Laboratory - Chemistry and C hemistry - challengeOrdered By: Guilherme Butt on 08-24-2023 CO2 [Moles/Vol] 30.0 mmol/L 21.0-32.0 [facility] Urea nitrogen/Creatinine [Mass ratio] 26.9 mg/mg 10-20 [facility] Laboratory - Hematology and Cell countsOrdered By: Guilherme Butt on 08-24-2023 MCH (RBC) [Entitic mass] 31.5 pg 27.0-32.0 [facility] MCHC (RBC) [Mass/Vol] 32.8 g/dL 32-36 [facility] Platelet mean volume (Bld) [Entitic vol] 9.2 fL 6.2-12.0 [facility] Platelets (Bld) [#/Vol] 193 10*3/uL 150-450 [facility] No Panel InformationOrdered By: Guilherme Butt on 08-24-2023 Estimated GFR (MDRD) Amer 89 mL/min >60 [facility] Comment on above: GFR Calc Estimated GFR (MDRD) Non-Af Amer 73 mL/min >60 [facility] Comment on above: Non- GFR Calc RBC Auto (Bld) [#/Vol]Ordere d By: Guilherme Butt on 08-24-2023 RBC (Bld) [#/Vol] 4.22 10*6/uL 4.6-6.2 [facility] Serum or plasma calcium farshad urement (mass/volume)Ordered By: Guilherme Butt on 08-24-2023 Calcium [Mass/Vol] 9.0 mg/dL 8.5-10.1 [facility] Serum or plasma creatinine m easurement (mass/volume)Ordered By: Guilherme Butt on 08-24-2023 Creatinine [Mass/Vol] 1.04 mg/dL 0.70-1.30 [facility] Comment on above: The validity of the calculated GFR & GFRAA in patients over 70 years has not been determined. Clinical correlation is essential. Serum or plasma urea nitroge n measurement (mass/volume)Ordered By: Guilherme Butt on 08-24-2023 Urea nitrogen [Mass/Vol] 28 mg/dL 7-18 [facility] Thin prep Papanicolaou smear with manual screeningOrdered By: Guilherme Butt on 08-24-2023 Thin prep Papanicolaou smear with manual screening 3 5-15 [facility] Basophil percentageOrdered B y: Guilherme Butt on 07-20-2023 Chloride [Moles/Vol] 109 mmol/L 98-107 [facility] Glucose [Mass/Vol] 83 mg/dL 74-106 [facility] Hemoglobin (Bld) [Mass/Vol] 13.1 g/dL 13.0-16.5 [facility] Potassium [Moles/Vol] 4.2 mmol/L 3.5-5.1 [facility] Sodium [Moles/Vol] 142 mmol/L 136-145 [facility] WBC (Bld) [#/Vol] 4.5 10*3/uL 4.4-11.0 [facility] Determination of erythrocyte mean corpuscular volume (MCV)Ordered By: Guilherme Butt on 07-20-2023 MCV (RBC) [Entitic vol] 94.4 fL 80-94 [facility] Erythrocyte distribution wid th ratioOrdered By: Guilherme Butt on 07-20-2023 Erythrocyte distribution width (RBC) [Ratio] 12.8 % 11.6-14.6 [facility] Erythrocyte distribution wid th standard deviationOrdered By: Guilherme Butt on 07-20-2023 Erythrocyte distribution width (RBC) [Entitic vol] 44.0 fL 35.1-43.9 [facility] Hematocrit Auto (Bld) [Volum e fraction]Ordered By: Guilherme Butt on 07-20-2023 Hematocrit (Bld) [Volume fraction] 38.9 % 40-54 [facility] Laboratory - Chemistry and C hemistry - challengeOrdered By: Guilherme Butt on 07-20-2023 CO2 [Moles/Vol] 26.0 mmol/L 21.0-32.0 [facility] Urea nitrogen/Creatinine [Mass ratio] 31.5 mg/mg 10-20 [facility] Laboratory - Hematology and Cell countsOrdered By: Guilherme Butt on 07-20-2023 MCH (RBC) [Entitic mass] 31.8 pg 27.0-32.0 [facility] MCHC (RBC) [Mass/Vol] 33.7 g/dL 32-36 [facility] Platelet mean volume (Bld) [Entitic vol] 9.1 fL 6.2-12.0 [facility] Platelets (Bld) [#/Vol] 195 10*3/uL 150-450 [facility] No Panel InformationOrdered By: Guilherme Butt on 07-20-2023 Estimated GFR (MDRD) Amer 102 mL/min >60 [facility] Comment on above: GFR Calc Estimated GFR (MDRD) Non-Af Amer 84 mL/min >60 [facility] Comment on above: Non- GFR Calc RBC Auto (Bld) [#/Vol]Ordere d By: Guilherme Butt on 07-20-2023 RBC (Bld) [#/Vol] 4.12 10*6/uL 4.6-6.2 [facility] Serum or plasma calcium farshad urement (mass/volume)Ordered By: Guilherme Butt on 07-20-2023 Calcium [Mass/Vol] 8.8 mg/dL 8.5-10.1 [facility] Serum or plasma creatinine m easurement (mass/volume)Ordered By: Guilherme Butt on 07-20-2023 Creatinine [Mass/Vol] 0.92 mg/dL 0.70-1.30 [facility] Comment on above: The validity of the calculated GFR & GFRAA in patients over 70 years has not been determined. Clinical correlation is essential. Serum or plasma urea nitroge n measurement (mass/volume)Ordered By: Guilherme Butt on 07-20-2023 Urea nitrogen [Mass/Vol] 29 mg/dL 7-18 [facility] Thin prep Papanicolaou smear with manual screeningOrdered By: Guilherme Butt on 07-20-2023 Thin prep Papanicolaou smear with manual screening 7 5-15 [facility] Basophil percentageOrdered B y: Guilherme Butt on 06-22-2023 Chloride [Moles/Vol] 107 mmol/L 98-107 [facility] Glucose [Mass/Vol] 88 mg/dL 74-106 [facility] Hemoglobin (Bld) [Mass/Vol] 12.8 g/dL 13.0-16.5 [facility] Potassium [Moles/Vol] 4.4 mmol/L 3.5-5.1 [facility] Sodium [Moles/Vol] 141 mmol/L 136-145 [facility] WBC (Bld) [#/Vol] 4.6 10*3/uL 4.4-11.0 [facility] Determination of erythrocyte mean corpuscular volume (MCV)Ordered By: Guilherme Butt on 06-22-2023 MCV (RBC) [Entitic vol] 93.4 fL 80-94 [facility] Erythrocyte distribution wid th ratioOrdered By: Guilherme Butt on 06-22-2023 Erythrocyte distribution width (RBC) [Ratio] 12.5 % 11.6-14.6 [facility] Erythrocyte distribution wid th standard deviationOrdered By: Kellybark riverdmitri Butt on 06-22-2023 Erythrocyte distribution width (RBC) [Entitic vol] 43.2 fL 35.1-43.9 [facility] Hematocrit Auto (Bld) [Volum e fraction]Ordered By: Guilherme Butt on 06-22-2023 Hematocrit (Bld) [Volume fraction] 38.4 % 40-54 [facility] Laboratory - Chemistry and C hemistry - challengeOrdered By: Kellybark riverdmitri Butt on 06-22-2023 CO2 [Moles/Vol] 30.0 mmol/L 21.0-32.0 [facility] Urea nitrogen/Creatinine [Mass ratio] 26.5 mg/mg 10-20 [facility] Laboratory - Hematology and Cell countsOrdered By: Guilherme Butt on 06-22-2023 MCH (RBC) [Entitic mass] 31.1 pg 27.0-32.0 [facility] MCHC (RBC) [Mass/Vol] 33.3 g/dL 32-36 [facility] Platelet mean volume (Bld) [Entitic vol] 9.0 fL 6.2-12.0 [facility] Platelets (Bld) [#/Vol] 194 10*3/uL 150-450 [facility] No Panel InformationOrdered By: Guilherme Butt on 06-22-2023 Estimated GFR (MDRD) Amer 104 mL/min >60 [facility] Comment on above: GFR Calc Estimated GFR (MDRD) Non-Af Amer 86 mL/min >60 [facility] Comment on above: Non- GFR Calc RBC Auto (Bld) [#/Vol]Ordere d By: Guilherme Butt on 06-22-2023 RBC (Bld) [#/Vol] 4.11 10*6/uL 4.6-6.2 [facility] Serum or plasma calcium farshad urement (mass/volume)Ordered By: Guilherme Butt on 06-22-2023 Calcium [Mass/Vol] 8.8 mg/dL 8.5-10.1 [facility] Serum or plasma creatinine m easurement (mass/volume)Ordered By: Guilherme Butt on 06-22-2023 Creatinine [Mass/Vol] 0.90 mg/dL 0.70-1.30 [facility] Comment on above: The validity of the calculated GFR & GFRAA in patients over 70 years has not been determined. Clinical correlation is essential. Serum or plasma urea nitroge n measurement (mass/volume)Ordered By: Guilherme Butt on 06-22-2023 Urea nitrogen [Mass/Vol] 24 mg/dL 7-18 [facility] Thin prep Papanicolaou smear with manual screeningOrdered By: Guilherme Butt on 06-22-2023 Thin prep Papanicolaou smear with manual screening 4 5-15 [facility] Basophil percentageOrdered B y: Cecy Gray on 05-25-2023 Chloride [Moles/Vol] 107 mmol/L 98-107 [facility] Glucose [Mass/Vol] 138 mg/dL 74-106 [facility] Comment on above: Fasting Glucose resu lt greater than or equal to 126 mg/dL suggests DIABETES MELLITUS per A.D.A. criteria. Potassium [Moles/Vol] 4.1 mmol/L 3.5-5.1 [facility] Sodium [Moles/Vol] 141 mmol/L 136-145 [facility] WBC (Bld) [#/Vol] 5.5 10*3/uL 4.4-11.0 [facility] Blood erythrocytes count (nu mber/volume)Ordered By: Cecy Gray on 05-25-2023 RBC (Bld) [#/Vol] 4.36 10*6/uL 4.6-6.2 [facility] Blood hemoglobin measurement (mass/volume)Ordered By: Cecy Gray on 05-25-2023 Hemoglobin (Bld) [Mass/Vol] 13.5 g/dL 13.0-16.5 [facility] Blood platelet mean volumeOr dered By: Cecy Gray on 05-25-2023 Platelet mean volume (Bld) [Entitic vol] 9.2 fL 6.2-12.0 [facility] Determination of erythrocyte mean corpuscular volume (MCV)Ordered By: Cecy Gray on 05-25-2023 MCV (RBC) [Entitic vol] 94.0 fL 80-94 [facility] Hematocrit Auto (Bld) [Volum e fraction]Ordered By: Cecy Gray on 05-25-2023 Hematocrit (Bld) [Volume fraction] 41.0 % 40-54 [facility] Laboratory - Chemistry and C hemistry - challengeOrdered By: Cecy Gray on 05-25-2023 CO2 [Moles/Vol] 26.0 mmol/L 21.0-32.0 [facility] Urea nitrogen/Creatinine [Mass ratio] 25.2 mg/mg 10-20 [facility] Laboratory - Hematology and Cell countsOrdered By: Cecy Gray on 05-25-2023 Erythrocyte distribution width (RBC) [Entitic vol] 43.3 fL 35.1-43.9 [facility] Erythrocyte distribution width (RBC) [Ratio] 12.4 % 11.6-14.6 [facility] MCH (RBC) [Entitic mass] 31.0 pg 27.0-32.0 [facility] MCHC Auto (RBC) [Mass/Vol]Or dered By: Cecy Gray on 05-25-2023 MCHC (RBC) [Mass/Vol] 32.9 g/dL 32-36 [facility] No Panel InformationOrdered By: Cecy Gray on 05-25-2023 Estimated GFR (MDRD) Amer 86 mL/min >60 [facility] Comment on above: GFR Calc Estimated GFR (MDRD) Non-Af Amer 71 mL/min >60 [facility] Comment on above: Non- GFR Calc Platelets bldOrdered By: Reinier Gray on 05-25-2023 Platelets (Bld) [#/Vol] 214 10*3/uL 150-450 [facility] Serum or plasma calcium farshad urement (mass/volume)Ordered By: Cecy Gray on 05-25-2023 Calcium [Mass/Vol] 9.2 mg/dL 8.5-10.1 [facility] Serum or plasma creatinine m easurement (mass/volume)Ordered By: Cecy Gray on 05-25-2023 Creatinine [Mass/Vol] 1.07 mg/dL 0.70-1.30 [facility] Comment on above: The validity of the calculated GFR & GFRAA in patients over 70 years has not been determined. Clinical correlation is essential. Serum or plasma urea nitroge n measurement (mass/volume)Ordered By: Cecy Gray on 05-25-2023 Urea nitrogen [Mass/Vol] 27 mg/dL 7-18 [facility] Thin prep Papanicolaou smear with manual screeningOrdered By: Cecy Gray on 05-25-2023 Thin prep Papanicolaou smear with manual screening 8 5-15 [facility] Basophil percentageOrdered B y: Cecy Grya on 04-20-2023 Chloride [Moles/Vol] 106 mmol/L 98-107 [facility] Glucose [Mass/Vol] 100 mg/dL 74-106 [facility] Comment on above: Fasting Glucose resu lt from 100 to 125 mg/dL suggests IMPAIRED HOMEOSTASIS per A.D.A. criteria. Potassium [Moles/Vol] 4.8 mmol/L 3.5-5.1 [facility] Sodium [Moles/Vol] 140 mmol/L 136-145 [facility] WBC (Bld) [#/Vol] 5.2 10*3/uL 4.4-11.0 [facility] Blood erythrocytes count (nu mber/volume)Ordered By: Cecy Gray on 04-20-2023 RBC (Bld) [#/Vol] 4.26 10*6/uL 4.6-6.2 [facility] Blood hemoglobin measurement (mass/volume)Ordered By: Cecy Gray on 04-20-2023 Hemoglobin (Bld) [Mass/Vol] 13.8 g/dL 13.0-16.5 [facility] Blood platelet mean volumeOr dered By: Cecy Gray on 04-20-2023 Platelet mean volume (Bld) [Entitic vol] 9.1 fL 6.2-12.0 [facility] Determination of erythrocyte mean corpuscular volume (MCV)Ordered By: Cecy Gray on 04-20-2023 MCV (RBC) [Entitic vol] 96.9 fL 80-94 [facility] Hematocrit Auto (Bld) [Volum e fraction]Ordered By: Cecy Gray on 04-20-2023 Hematocrit (Bld) [Volume fraction] 41.3 % 40-54 [facility] Laboratory - Chemistry and C hemistry - challengeOrdered By: Cecy Gray on 04-20-2023 CO2 [Moles/Vol] 34.0 mmol/L 21.0-32.0 [facility] Urea nitrogen/Creatinine [Mass ratio] 23.8 mg/mg 10-20 [facility] Laboratory - Hematology and Cell countsOrdered By: Cecy Gray on 04-20-2023 Erythrocyte distribution width (RBC) [Entitic vol] 45.5 fL 35.1-43.9 [facility] Erythrocyte distribution width (RBC) [Ratio] 12.8 % 11.6-14.6 [facility] MCH (RBC) [Entitic mass] 32.4 pg 27.0-32.0 [facility] MCHC Auto (RBC) [Mass/Vol]Or dered By: Cecy Gray on 04-20-2023 MCHC (RBC) [Mass/Vol] 33.4 g/dL 32-36 [facility] No Panel InformationOrdered By: Cecy Gray on 04-20-2023 Estimated GFR (MDRD) Amer 88 mL/min >60 [facility] Comment on above: GFR Calc Estimated GFR (MDRD) Non-Af Amer 73 mL/min >60 [facility] Comment on above: Non- GFR Calc Platelets bldOrdered By: Reinier Gray on 04-20-2023 Platelets (Bld) [#/Vol] 234 10*3/uL 150-450 [facility] Serum or plasma calcium farshad urement (mass/volume)Ordered By: Cecy Gray on 04-20-2023 Calcium [Mass/Vol] 9.3 mg/dL 8.5-10.1 [facility] Serum or plasma creatinine m easurement (mass/volume)Ordered By: Cecy Gray on 04-20-2023 Creatinine [Mass/Vol] 1.05 mg/dL 0.70-1.30 [facility] Comment on above: The validity of the calculated GFR & GFRAA in patients over 70 years has not been determined. Clinical correlation is essential. Serum or plasma urea nitroge n measurement (mass/volume)Ordered By: Cecy Gray on 04-20-2023 Urea nitrogen [Mass/Vol] 25 mg/dL 7-18 [facility] Thin prep Papanicolaou smear with manual screeningOrdered By: Cecy Gray on 04-20-2023 Thin prep Papanicolaou smear with manual screening 0 5-15 [facility] Basophil percentageOrdered B y: Cecy Gray on 03-23-2023 Chloride [Moles/Vol] 104 mmol/L 98-107 [facility] Glucose [Mass/Vol] 91 mg/dL 74-106 [facility] Potassium [Moles/Vol] 4.1 mmol/L 3.5-5.1 [facility] Sodium [Moles/Vol] 141 mmol/L 136-145 [facility] WBC (Bld) [#/Vol] 4.5 10*3/uL 4.4-11.0 [facility] Blood erythrocytes count (nu mber/volume)Ordered By: Cecy Gray on 03-23-2023 RBC (Bld) [#/Vol] 4.07 10*6/uL 4.6-6.2 [facility] Blood hemoglobin measurement (mass/volume)Ordered By: Cecy Gray on 03-23-2023 Hemoglobin (Bld) [Mass/Vol] 12.8 g/dL 13.0-16.5 [facility] Blood platelet mean volumeOr dered By: Cecy Gray on 03-23-2023 Platelet mean volume (Bld) [Entitic vol] 9.4 fL 6.2-12.0 [facility] Determination of erythrocyte mean corpuscular volume (MCV)Ordered By: Cecy Gray on 03-23-2023 MCV (RBC) [Entitic vol] 97.5 fL 80-94 [facility] Hematocrit Auto (Bld) [Volum e fraction]Ordered By: Cecy Gray on 03-23-2023 Hematocrit (Bld) [Volume fraction] 39.7 % 40-54 [facility] Laboratory - Chemistry and C hemistry - challengeOrdered By: Cecy Gray on 03-23-2023 CO2 [Moles/Vol] 31.0 mmol/L 21.0-32.0 [facility] Urea nitrogen/Creatinine [Mass ratio] 28.0 mg/mg 10-20 [facility] Laboratory - Hematology and Cell countsOrdered By: Cecy Gray on 03-23-2023 Erythrocyte distribution width (RBC) [Entitic vol] 46.2 fL 35.1-43.9 [facility] Erythrocyte distribution width (RBC) [Ratio] 12.8 % 11.6-14.6 [facility] MCH (RBC) [Entitic mass] 31.4 pg 27.0-32.0 [facility] MCHC Auto (RBC) [Mass/Vol]Or dered By: Cecy Gray on 03-23-2023 MCHC (RBC) [Mass/Vol] 32.2 g/dL 32-36 [facility] No Panel InformationOrdered By: Cecy Gray on 03-23-2023 Estimated GFR (MDRD) Amer 93 mL/min >60 [facility] Comment on above: GFR Calc Estimated GFR (MDRD) Non-Af Amer 77 mL/min >60 [facility] Comment on above: Non- GFR Calc Platelets bldOrdered By: Reinier Gray on 03-23-2023 Platelets (Bld) [#/Vol] 210 10*3/uL 150-450 [facility] Serum or plasma calcium farshad urement (mass/volume)Ordered By: Cecy Gray on 03-23-2023 Calcium [Mass/Vol] 8.9 mg/dL 8.5-10.1 [facility] Serum or plasma creatinine m easurement (mass/volume)Ordered By: Cecy Gray on 03-23-2023 Creatinine [Mass/Vol] 1.00 mg/dL 0.70-1.30 [facility] Comment on above: The validity of the calculated GFR & GFRAA in patients over 70 years has not been determined. Clinical correlation is essential. Serum or plasma urea nitroge n measurement (mass/volume)Ordered By: Cecy Gray on 03-23-2023 Urea nitrogen [Mass/Vol] 28 mg/dL 7-18 [facility] Thin prep Papanicolaou smear with manual screeningOrdered By: Cecy Gray on 03-23-2023 Thin prep Papanicolaou smear with manual screening 6 5-15 [facility] Basophil percentageOrdered B y: Cecy Gray on 02-23-2023 Chloride [Moles/Vol] 106 mmol/L 98-107 [facility] Glucose [Mass/Vol] 93 mg/dL 74-106 [facility] Potassium [Moles/Vol] 4.3 mmol/L 3.5-5.1 [facility] Sodium [Moles/Vol] 139 mmol/L 136-145 [facility] WBC (Bld) [#/Vol] 5.0 10*3/uL 4.4-11.0 [facility] Blood erythrocytes count (nu mber/volume)Ordered By: Cecy Gray on 02-23-2023 RBC (Bld) [#/Vol] 4.08 10*6/uL 4.6-6.2 [facility] Blood hemoglobin measurement (mass/volume)Ordered By: Cecy Gray on 02-23-2023 Hemoglobin (Bld) [Mass/Vol] 12.9 g/dL 13.0-16.5 [facility] Blood platelet mean volumeOr dered By: Cecy Gray on 02-23-2023 Platelet mean volume (Bld) [Entitic vol] 9.3 fL 6.2-12.0 [facility] Determination of erythrocyte mean corpuscular volume (MCV)Ordered By: Cecy Gray on 02-23-2023 MCV (RBC) [Entitic vol] 97.8 fL 80-94 [facility] Hematocrit Auto (Bld) [Volum e fraction]Ordered By: Cecy Gray on 02-23-2023 Hematocrit (Bld) [Volume fraction] 39.9 % 40-54 [facility] Laboratory - Chemistry and C hemistry - challengeOrdered By: Cecy Gray on 02-23-2023 CO2 [Moles/Vol] 30.0 mmol/L 21.0-32.0 [facility] Urea nitrogen/Creatinine [Mass ratio] 29.9 mg/mg 10-20 [facility] Laboratory - Hematology and Cell countsOrdered By: Cecy Gray on 02-23-2023 Erythrocyte distribution width (RBC) [Entitic vol] 45.7 fL 35.1-43.9 [facility] Erythrocyte distribution width (RBC) [Ratio] 12.6 % 11.6-14.6 [facility] MCH (RBC) [Entitic mass] 31.6 pg 27.0-32.0 [facility] MCHC Auto (RBC) [Mass/Vol]Or dered By: Cecy Gray on 02-23-2023 MCHC (RBC) [Mass/Vol] 32.3 g/dL 32-36 [facility] No Panel InformationOrdered By: Cecy Gray on 02-23-2023 Estimated GFR (MDRD) Amer 86 mL/min >60 [facility] Comment on above: GFR Calc Estimated GFR (MDRD) Non-Af Amer 71 mL/min >60 [facility] Comment on above: Non- GFR Calc Platelets bldOrdered By: Reinier Gray on 02-23-2023 Platelets (Bld) [#/Vol] 201 10*3/uL 150-450 [facility] Serum or plasma calcium farshad urement (mass/volume)Ordered By: Cecy Gray on 02-23-2023 Calcium [Mass/Vol] 8.8 mg/dL 8.5-10.1 [facility] Serum or plasma creatinine m easurement (mass/volume)Ordered By: Cecy Gray on 02-23-2023 Creatinine [Mass/Vol] 1.07 mg/dL 0.70-1.30 [facility] Comment on above: The validity of the calculated GFR & GFRAA in patients over 70 years has not been determined. Clinical correlation is essential. Serum or plasma urea nitroge n measurement (mass/volume)Ordered By: Cecy Gray on 02-23-2023 Urea nitrogen [Mass/Vol] 32 mg/dL 7-18 [facility] Thin prep Papanicolaou smear with manual screeningOrdered By: Cecy Gray on 02-23-2023 Thin prep Papanicolaou smear with manual screening 3 5-15 [facility] Basophil percentageOrdered B y: Guilherme Butt on 02-06-2023 Bilirubin [Mass/Vol] 0.50 mg/dL 0.20-1.00 [facility] Comment on above: For patients on eltr ombopag therapy, use of Dimension [place] TBIL is not recommended. Cholesterol [Mass/Vol] 180 mg/dL <200 [facility] Comment on above: <200 mg/dL Desirable 200-240 mg/dL Borderline >240 mg/dL High Risk Protein [Mass/Vol] 6.3 g/dL 6.4-8.2 [facility] Triglyceride [Mass/Vol] 108 mg/dL <199 [facility] Comment on above: The drugs N-Acetylcy steine and Metamizole may falsely depress this assay.Serum Triglycerides Reference Interval Normal <150 mg/dL Borderline high 150 - 199 mg/dL High 200 - 499 mg/dL Very High > or = 500 mg/dL Direct bilirubinOrdered By: Guilherme Butt on 02-06-2023 Bilirubin.direct [Mass/Vol] 0.11 mg/dL 0.00-0.30 [facility] Laboratory - Chemistry and C hemistry - challengeOrdered By: Guilherme Butt on 02-06-2023 ALP [Catalytic activity/Vol] 119 U/L 45-117 [facility] ALT [Catalytic activity/Vol] 9 U/L 16-61 [facility] Free T4 [Mass/Vol] 0.65 ng/dL 0.76-1.46 [facility] Globulin (S) [Mass/Vol] 2.9 g/dL 2.2-4.2 [facility] No Panel InformationOrdered By: Guilherme Butt on 02-06-2023 Thyroid Stimulating Hormone (TSH) 1.03 uIU/mL 0.358-3.74 [facility] Serum or plasma albumin farshad urement (mass/volume)Ordered By: Guilherme Butt on 02-06-2023 Albumin [Mass/Vol] 3.4 g/dL 3.2-5.0 [facility] Serum or plasma cholesterol in HDL measurement (mass/volume)Ordered By: Guilherme Butt on 02-06-2023 Cholesterol in HDL [Mass/Vol] 50 mg/dL >40 [facility] Comment on above: The drugs N-Acetylcy steine and Metamizole may falsely depress this assay. Reference Range HDL <40 mg/dL Low HDL Cholesterol HDL >or= 60 mg/dL High HDL Cholesterol Serum or plasma cholesterol in VLDL measurement (mass/volume)Ordered By: Guilherme Butt on 02-06-2023 Cholesterol in VLDL [Mass/Vol] 22 mg/dL 5-40 [facility] Serum or plasma low density lipoprotein (LDL) cholesterol measurement (mass/volume)Ordered By: Guilherme Butt on 02-06-2023 Cholesterol in LDL [Mass/Vol] 108 mg/dL 0-130 [facility] Thin prep Papanicolaou smear with manual screeningOrdered By: Guilherme Butt on 02-06-2023 Thin prep Papanicolaou smear with manual screening 11 U/L 15-37 [facility] Whole blood hemoglobin A1c/t otal hemoglobin ratio (mass fraction)Ordered By: Guilherme Butt on 02-06-2023 HbA1c (Bld) [Mass fraction] 5.3 % 3.8-5.6 [facility] Comment on above: Normal < 5.7 % Predi abetic 5.7 - 6.4 % Diabetic >or= 6.5 % Please note range changes. Basophil percentageOrdered B y: Guilherme Butt on 01-19-2023 Chloride [Moles/Vol] 107 mmol/L 98-107 [facility] Glucose [Mass/Vol] 93 mg/dL 74-106 [facility] Potassium [Moles/Vol] 4.8 mmol/L 3.5-5.1 [facility] Sodium [Moles/Vol] 141 mmol/L 136-145 [facility] WBC (Bld) [#/Vol] 4.5 10*3/uL 4.4-11.0 [facility] Blood erythrocytes count (nu mber/volume)Ordered By: Guilherme Butt on 01-19-2023 RBC (Bld) [#/Vol] 4.22 10*6/uL 4.6-6.2 [facility] Blood hemoglobin measurement (mass/volume)Ordered By: Guilherme Butt on 01-19-2023 Hemoglobin (Bld) [Mass/Vol] 13.4 g/dL 13.0-16.5 [facility] Blood platelet mean volumeOr dered By: Guilherme Butt on 01-19-2023 Platelet mean volume (Bld) [Entitic vol] 9.4 fL 6.2-12.0 [facility] Determination of erythrocyte mean corpuscular volume (MCV)Ordered By: Guilherme Butt on 01-19-2023 MCV (RBC) [Entitic vol] 99.1 fL 80-94 [facility] Hematocrit Auto (Bld) [Volum e fraction]Ordered By: Guilherme Butt on 01-19-2023 Hematocrit (Bld) [Volume fraction] 41.8 % 40-54 [facility] Laboratory - Chemistry and C hemistry - challengeOrdered By: Guilherme Butt on 01-19-2023 CO2 [Moles/Vol] 32.0 mmol/L 21.0-32.0 [facility] Urea nitrogen/Creatinine [Mass ratio] 25.5 mg/mg 10-20 [facility] Laboratory - Hematology and Cell countsOrdered By: Guilherme Butt on 01-19-2023 Erythrocyte distribution width (RBC) [Entitic vol] 46.4 fL 35.1-43.9 [facility] Erythrocyte distribution width (RBC) [Ratio] 12.8 % 11.6-14.6 [facility] MCH (RBC) [Entitic mass] 31.8 pg 27.0-32.0 [facility] MCHC Auto (RBC) [Mass/Vol]Or dered By: Guilherme Butt on 01-19-2023 MCHC (RBC) [Mass/Vol] 32.1 g/dL 32-36 [facility] No Panel InformationOrdered By: Guilherme Butt on 01-19-2023 Estimated GFR (MDRD) Amer 91 mL/min >60 [facility] Comment on above: GFR Calc Estimated GFR (MDRD) Non-Af Amer 75 mL/min >60 [facility] Comment on above: Non- GFR Calc Platelets bldOrdered By: Jamaal Butt on 01-19-2023 Platelets (Bld) [#/Vol] 180 10*3/uL 150-450 [facility] Serum or plasma calcium farshad urement (mass/volume)Ordered By: Guilherme Butt on 01-19-2023 Calcium [Mass/Vol] 9.1 mg/dL 8.5-10.1 [facility] Serum or plasma creatinine m easurement (mass/volume)Ordered By: Guilherme Butt on 01-19-2023 Creatinine [Mass/Vol] 1.02 mg/dL 0.70-1.30 [facility] Comment on above: The validity of the calculated GFR & GFRAA in patients over 70 years has not been determined. Clinical correlation is essential. Serum or plasma urea nitroge n measurement (mass/volume)Ordered By: Guilherme Butt on 01-19-2023 Urea nitrogen [Mass/Vol] 26 mg/dL 7-18 [facility] Thin prep Papanicolaou smear with manual screeningOrdered By: Guilherme Butt on 01-19-2023 Thin prep Papanicolaou smear with manual screening 2 5-15 [facility] Basophil percentageOrdered B y: Guilherme Butt on 12-22-2022 Chloride [Moles/Vol] 106 mmol/L 98-107 [facility] Glucose [Mass/Vol] 87 mg/dL 74-106 [facility] Potassium [Moles/Vol] 4.5 mmol/L 3.5-5.1 [facility] Sodium [Moles/Vol] 140 mmol/L 136-145 [facility] WBC (Bld) [#/Vol] 4.6 10*3/uL 4.4-11.0 [facility] Blood erythrocytes count (nu mber/volume)Ordered By: Guilherme Butt on 12-22-2022 RBC (Bld) [#/Vol] 4.14 10*6/uL 4.6-6.2 [facility] Blood hemoglobin measurement (mass/volume)Ordered By: Guilherme Butt on 12-22-2022 Hemoglobin (Bld) [Mass/Vol] 13.4 g/dL 13.0-16.5 [facility] Blood platelet mean volumeOr dered By: Guilherme Butt on 12-22-2022 Platelet mean volume (Bld) [Entitic vol] 9.0 fL 6.2-12.0 [facility] Determination of erythrocyte mean corpuscular volume (MCV)Ordered By: Guilherme Butt on 12-22-2022 MCV (RBC) [Entitic vol] 97.3 fL 80-94 [facility] Hematocrit Auto (Bld) [Volum e fraction]Ordered By: Guilherme Butt on 12-22-2022 Hematocrit (Bld) [Volume fraction] 40.3 % 40-54 [facility] Laboratory - Chemistry and C hemistry - challengeOrdered By: Guilherme Butt on 12-22-2022 CO2 [Moles/Vol] 33.0 mmol/L 21.0-32.0 [facility] Urea nitrogen/Creatinine [Mass ratio] 26.2 mg/mg 10-20 [facility] Laboratory - Hematology and Cell countsOrdered By: Guilherme Butt on 12-22-2022 Erythrocyte distribution width (RBC) [Entitic vol] 45.3 fL 35.1-43.9 [facility] Erythrocyte distribution width (RBC) [Ratio] 12.8 % 11.6-14.6 [facility] MCH (RBC) [Entitic mass] 32.4 pg 27.0-32.0 [facility] MCHC Auto (RBC) [Mass/Vol]Or dered By: Guilherme Butt on 12-22-2022 MCHC (RBC) [Mass/Vol] 33.3 g/dL 32-36 [facility] No Panel InformationOrdered By: Guilherme Butt on 12-22-2022 Estimated GFR (MDRD) Amer 94 mL/min >60 [facility] Comment on above: GFR Calc Estimated GFR (MDRD) Non-Af Amer 78 mL/min >60 [facility] Comment on above: Non- GFR Calc Platelets bldOrdered By: Jamaal Butt on 12-22-2022 Platelets (Bld) [#/Vol] 179 10*3/uL 150-450 [facility] Serum or plasma calcium farshad urement (mass/volume)Ordered By: Guilherme Butt on 12-22-2022 Calcium [Mass/Vol] 8.9 mg/dL 8.5-10.1 [facility] Serum or plasma creatinine m easurement (mass/volume)Ordered By: Guilherme Butt on 12-22-2022 Creatinine [Mass/Vol] 0.99 mg/dL 0.70-1.30 [facility] Comment on above: The validity of the calculated GFR & GFRAA in patients over 70 years has not been determined. Clinical correlation is essential. Serum or plasma urea nitroge n measurement (mass/volume)Ordered By: Guilherme Butt on 12-22-2022 Urea nitrogen [Mass/Vol] 26 mg/dL 7-18 [facility] Thin prep Papanicolaou smear with manual screeningOrdered By: Guilherme Butt on 12-22-2022 Thin prep Papanicolaou smear with manual screening 1 5-15 [facility] Basophil percentageOrdered B y: Guilherme Butt on 11-24-2022 Chloride [Moles/Vol] 109 mmol/L 98-107 [facility] Glucose [Mass/Vol] 132 mg/dL 74-106 [facility] Comment on above: Fasting Glucose resu lt greater than or equal to 126 mg/dL suggests DIABETES MELLITUS per A.D.A. criteria. Potassium [Moles/Vol] 4.0 mmol/L 3.5-5.1 [facility] Sodium [Moles/Vol] 140 mmol/L 136-145 [facility] WBC (Bld) [#/Vol] 4.6 10*3/uL 4.4-11.0 [facility] Blood erythrocytes count (nu mber/volume)Ordered By: Guilherme Butt on 11-24-2022 RBC (Bld) [#/Vol] 4.06 10*6/uL 4.6-6.2 [facility] Blood hemoglobin measurement (mass/volume)Ordered By: Guilherme Butt on 11-24-2022 Hemoglobin (Bld) [Mass/Vol] 13.0 g/dL 13.0-16.5 [facility] Blood platelet mean volumeOr dered By: Guilherme Butt on 11-24-2022 Platelet mean volume (Bld) [Entitic vol] 9.3 fL 6.2-12.0 [facility] Determination of erythrocyte mean corpuscular volume (MCV)Ordered By: Guilherme Butt on 11-24-2022 MCV (RBC) [Entitic vol] 96.3 fL 80-94 [facility] Hematocrit Auto (Bld) [Volum e fraction]Ordered By: Guilherme Butt on 11-24-2022 Hematocrit (Bld) [Volume fraction] 39.1 % 40-54 [facility] Laboratory - Chemistry and C hemistry - challengeOrdered By: Guilherme Butt on 11-24-2022 CO2 [Moles/Vol] 26.0 mmol/L 21.0-32.0 [facility] Urea nitrogen/Creatinine [Mass ratio] 34.3 mg/mg 10-20 [facility] Laboratory - Hematology and Cell countsOrdered By: Guilherme Butt on 11-24-2022 Erythrocyte distribution width (RBC) [Entitic vol] 45.0 fL 35.1-43.9 [facility] Erythrocyte distribution width (RBC) [Ratio] 12.7 % 11.6-14.6 [facility] MCH (RBC) [Entitic mass] 32.0 pg 27.0-32.0 [facility] MCHC Auto (RBC) [Mass/Vol]Or dered By: Guilherme Butt on 11-24-2022 MCHC (RBC) [Mass/Vol] 33.2 g/dL 32-36 [facility] No Panel InformationOrdered By: Guilherme Butt on 11-24-2022 Estimated GFR (MDRD) Amer 97 mL/min >60 [facility] Comment on above: GFR Calc Estimated GFR (MDRD) Non-Af Amer 80 mL/min >60 [facility] Comment on above: Non- GFR Calc Platelets bldOrdered By: Jamaal Butt on 11-24-2022 Platelets (Bld) [#/Vol] 188 10*3/uL 150-450 [facility] Serum or plasma calcium farshad urement (mass/volume)Ordered By: Guilherme Butt on 11-24-2022 Calcium [Mass/Vol] 8.7 mg/dL 8.5-10.1 [facility] Serum or plasma creatinine m easurement (mass/volume)Ordered By: Guilherme Butt on 11-24-2022 Creatinine [Mass/Vol] 0.96 mg/dL 0.70-1.30 [facility] Comment on above: The validity of the calculated GFR & GFRAA in patients over 70 years has not been determined. Clinical correlation is essential. Serum or plasma urea nitroge n measurement (mass/volume)Ordered By: Guilherme Butt on 11-24-2022 Urea nitrogen [Mass/Vol] 33 mg/dL 7-18 [facility] Thin prep Papanicolaou smear with manual screeningOrdered By: Guilherme Butt on 11-24-2022 Thin prep Papanicolaou smear with manual screening 5 5-15 [facility] Basophil percentageOrdered B y: Cecy Gray on 10-20-2022 Chloride [Moles/Vol] 104 mmol/L 98-107 [facility] Glucose [Mass/Vol] 95 mg/dL 74-106 [facility] Potassium [Moles/Vol] 4.3 mmol/L 3.5-5.1 [facility] Sodium [Moles/Vol] 138 mmol/L 136-145 [facility] WBC (Bld) [#/Vol] 4.7 10*3/uL 4.4-11.0 [facility] Blood erythrocytes count (nu mber/volume)Ordered By: Cecy Gray on 10-20-2022 RBC (Bld) [#/Vol] 4.48 10*6/uL 4.6-6.2 [facility] Blood hemoglobin measurement (mass/volume)Ordered By: Cecy Gray on 10-20-2022 Hemoglobin (Bld) [Mass/Vol] 14.2 g/dL 13.0-16.5 [facility] Blood platelet mean volumeOr dered By: Cecy Gray on 10-20-2022 Platelet mean volume (Bld) [Entitic vol] 9.1 fL 6.2-12.0 [facility] Determination of erythrocyte mean corpuscular volume (MCV)Ordered By: Cecy Gray on 10-20-2022 MCV (RBC) [Entitic vol] 97.1 fL 80-94 [facility] Hematocrit Auto (Bld) [Volum e fraction]Ordered By: Cecy Gray on 10-20-2022 Hematocrit (Bld) [Volume fraction] 43.5 % 40-54 [facility] Laboratory - Chemistry and C hemistry - challengeOrdered By: Cecy Gray on 10-20-2022 CO2 [Moles/Vol] 28.0 mmol/L 21.0-32.0 [facility] Urea nitrogen/Creatinine [Mass ratio] 28.2 mg/mg 10-20 [facility] Laboratory - Hematology and Cell countsOrdered By: Cecy Gray on 10-20-2022 Erythrocyte distribution width (RBC) [Entitic vol] 44.9 fL 35.1-43.9 [facility] Erythrocyte distribution width (RBC) [Ratio] 12.5 % 11.6-14.6 [facility] MCH (RBC) [Entitic mass] 31.7 pg 27.0-32.0 [facility] MCHC Auto (RBC) [Mass/Vol]Or dered By: Cecy Gray on 10-20-2022 MCHC (RBC) [Mass/Vol] 32.6 g/dL 32-36 [facility] No Panel InformationOrdered By: Cecy Gray on 10-20-2022 Estimated GFR (MDRD) Amer 98 mL/min >60 [facility] Comment on above: GFR Calc Estimated GFR (MDRD) Non-Af Amer 81 mL/min >60 [facility] Comment on above: Non- GFR Calc Platelets bldOrdered By: Reinier Gray on 10-20-2022 Platelets (Bld) [#/Vol] 204 10*3/uL 150-450 [facility] Serum or plasma calcium farshad urement (mass/volume)Ordered By: Cecy Gray on 10-20-2022 Calcium [Mass/Vol] 8.7 mg/dL 8.5-10.1 [facility] Serum or plasma creatinine m easurement (mass/volume)Ordered By: Cecy Gray on 10-20-2022 Creatinine [Mass/Vol] 0.96 mg/dL 0.70-1.30 [facility] Comment on above: The validity of the calculated GFR & GFRAA in patients over 70 years has not been determined. Clinical correlation is essential. Serum or plasma urea nitroge n measurement (mass/volume)Ordered By: Cecy Gray on 10-20-2022 Urea nitrogen [Mass/Vol] 27 mg/dL 7-18 [facility] Thin prep Papanicolaou smear with manual screeningOrdered By: Cecy Gray on 10-20-2022 Thin prep Papanicolaou smear with manual screening 6 5-15 [facility] Basophil percentageOrdered B y: Cecy Gray on 09-22-2022 Chloride [Moles/Vol] 106 mmol/L 98-107 [facility] Glucose [Mass/Vol] 86 mg/dL 74-106 [facility] Potassium [Moles/Vol] 4.4 mmol/L 3.5-5.1 [facility] Sodium [Moles/Vol] 141 mmol/L 136-145 [facility] WBC (Bld) [#/Vol] 5.1 10*3/uL 4.4-11.0 [facility] Blood erythrocytes count (nu mber/volume)Ordered By: Cecy Gray on 09-22-2022 RBC (Bld) [#/Vol] 4.21 10*6/uL 4.6-6.2 [facility] Blood hemoglobin measurement (mass/volume)Ordered By: Cecy Gray on 09-22-2022 Hemoglobin (Bld) [Mass/Vol] 13.4 g/dL 13.0-16.5 [facility] Blood platelet mean volumeOr dered By: Cecy Gray on 09-22-2022 Platelet mean volume (Bld) [Entitic vol] 9.3 fL 6.2-12.0 [facility] Determination of erythrocyte mean corpuscular volume (MCV)Ordered By: Cecy Gray on 09-22-2022 MCV (RBC) [Entitic vol] 97.4 fL 80-94 [facility] Hematocrit Auto (Bld) [Volum e fraction]Ordered By: Cecy Gray on 09-22-2022 Hematocrit (Bld) [Volume fraction] 41.0 % 40-54 [facility] Laboratory - Chemistry and C hemistry - challengeOrdered By: Cecy Gray on 09-22-2022 CO2 [Moles/Vol] 31.0 mmol/L 21.0-32.0 [facility] Urea nitrogen/Creatinine [Mass ratio] 27.7 mg/mg 10-20 [facility] Laboratory - Hematology and Cell countsOrdered By: Cecy Gray on 09-22-2022 Erythrocyte distribution width (RBC) [Entitic vol] 43.7 fL 35.1-43.9 [facility] Erythrocyte distribution width (RBC) [Ratio] 12.3 % 11.6-14.6 [facility] MCH (RBC) [Entitic mass] 31.8 pg 27.0-32.0 [facility] MCHC Auto (RBC) [Mass/Vol]Or dered By: Cecy Gray on 09-22-2022 MCHC (RBC) [Mass/Vol] 32.7 g/dL 32- [facility] No Panel InformationOrdered By: Cecy Gray on 09-22-2022 Estimated GFR (MDRD) Amer 105 mL/min >60 [facility] Comment on above: GFR Calc Estimated GFR (MDRD) Non-Af Amer 87 mL/min >60 [facility] Comment on above: Non- GFR Calc Platelets bldOrdered By: Reinier Gray on 09-22-2022 Platelets (Bld) [#/Vol] 187 10*3/uL 150-450 [facility] Serum or plasma calcium farshad urement (mass/volume)Ordered By: Cecy Gray on 09-22-2022 Calcium [Mass/Vol] 8.8 mg/dL 8.5-10.1 [facility] Serum or plasma creatinine m easurement (mass/volume)Ordered By: Cecy Gray on 09-22-2022 Creatinine [Mass/Vol] 0.90 mg/dL 0.70-1.30 [facility] Comment on above: The validity of the calculated GFR & GFRAA in patients over 70 years has not been determined. Clinical correlation is essential. Serum or plasma urea nitroge n measurement (mass/volume)Ordered By: Cecy Gray on 09-22-2022 Urea nitrogen [Mass/Vol] 25 mg/dL 7-18 [facility] Thin prep Papanicolaou smear with manual screeningOrdered By: Cecy Gray on 09-22-2022 Thin prep Papanicolaou smear with manual screening 4 5-15 [facility] Basophil percentageOrdered B y: Guilherme Butt on 08-25-2022 Chloride [Moles/Vol] 106 mmol/L 98-107 [facility] Glucose [Mass/Vol] 90 mg/dL 74-106 [facility] Potassium [Moles/Vol] 4.3 mmol/L 3.5-5.1 [facility] Sodium [Moles/Vol] 139 mmol/L 136-145 [facility] WBC (Bld) [#/Vol] 4.4 10*3/uL 4.4-11.0 [facility] Blood erythrocytes count (nu mber/volume)Ordered By: Guilherme Butt on 08-25-2022 RBC (Bld) [#/Vol] 4.15 10*6/uL 4.6-6.2 [facility] Blood hemoglobin measurement (mass/volume)Ordered By: Guilherme Butt on 08-25-2022 Hemoglobin (Bld) [Mass/Vol] 13.2 g/dL 13.0-16.5 [facility] Blood platelet mean volumeOr dered By: Guilherme Butt on 08-25-2022 Platelet mean volume (Bld) [Entitic vol] 9.3 fL 6.2-12.0 [facility] Determination of erythrocyte mean corpuscular volume (MCV)Ordered By: Guilherme Butt on 08-25-2022 MCV (RBC) [Entitic vol] 97.6 fL 80-94 [facility] Hematocrit Auto (Bld) [Volum e fraction]Ordered By: Guilherme Butt on 08-25-2022 Hematocrit (Bld) [Volume fraction] 40.5 % 40-54 [facility] Laboratory - Chemistry and C hemistry - challengeOrdered By: Guilherme Butt on 08-25-2022 CO2 [Moles/Vol] 29.0 mmol/L 21.0-32.0 [facility] Cobalamin (Vitamin B12) [Mass/Vol] 239 pg/mL 211-911 [facility] Urea nitrogen/Creatinine [Mass ratio] 25.6 mg/mg 10-20 [facility] Laboratory - Hematology and Cell countsOrdered By: Guilherme Butt on 08-25-2022 Erythrocyte distribution width (RBC) [Entitic vol] 45.1 fL 35.1-43.9 [facility] Erythrocyte distribution width (RBC) [Ratio] 12.5 % 11.6-14.6 [facility] MCH (RBC) [Entitic mass] 31.8 pg 27.0-32.0 [facility] MCHC Auto (RBC) [Mass/Vol]Or dered By: Guilherme Butt on 08-25-2022 MCHC (RBC) [Mass/Vol] 32.6 g/dL 32-36 [facility] No Panel InformationOrdered By: Guilherme Butt on 08-25-2022 Estimated GFR (MDRD) Amer 78 mL/min >60 [facility] Comment on above: GFR Calc Estimated GFR (MDRD) Non-Af Amer 64 mL/min >60 [facility] Comment on above: Non- GFR Calc Platelets bldOrdered By: Jamaal Butt on 08-25-2022 Platelets (Bld) [#/Vol] 176 10*3/uL 150-450 [facility] Serum or plasma calcium farshad urement (mass/volume)Ordered By: Guilherme Butt on 08-25-2022 Calcium [Mass/Vol] 8.7 mg/dL 8.5-10.1 [facility] Serum or plasma creatinine m easurement (mass/volume)Ordered By: Guilherme Butt on 08-25-2022 Creatinine [Mass/Vol] 1.17 mg/dL 0.70-1.30 [facility] Comment on above: The validity of the calculated GFR & GFRAA in patients over 70 years has not been determined. Clinical correlation is essential. Serum or plasma urea nitroge n measurement (mass/volume)Ordered By: Guilherme Butt on 08-25-2022 Urea nitrogen [Mass/Vol] 30 mg/dL 7-18 [facility] Thin prep Papanicolaou smear with manual screeningOrdered By: Guilherme Butt on 08-25-2022 Thin prep Papanicolaou smear with manual screening 4 5-15 [facility] Absolute lymphocyte countOrd ered By: Guilherme Butt on 07-21-2022 Lymphocytes Auto (Unsp spec) [#/Vol] 1.11 10*3/uL 0.83-4.51 [facility] Basophil percentageOrdered B y: Guilherme Butt on 07-21-2022 Basophils/100 WBC (Bld) 0.5 % 0-1 [facility] Chloride [Moles/Vol] 106 mmol/L 98-107 [facility] Eosinophils/100 WBC (Bld) 3.6 % 0-5 [facility] Glucose [Mass/Vol] 95 mg/dL 74-106 [facility] Neutrophils (Bld) [#/Vol] 2.5 10*3/uL 2.0-7.7 [facility] Neutrophils/100 WBC (Bld) 59.1 % 47-70 [facility] Potassium [Moles/Vol] 4.2 mmol/L 3.5-5.1 [facility] Sodium [Moles/Vol] 142 mmol/L 136-145 [facility] WBC (Bld) [#/Vol] 4.2 10*3/uL 4.4-11.0 [facility] Blood erythrocytes count (nu mber/volume)Ordered By: Guilherme Butt on 07-21-2022 RBC (Bld) [#/Vol] 4.10 10*6/uL 4.6-6.2 [facility] Blood hemoglobin measurement (mass/volume)Ordered By: Guilherme Butt on 07-21-2022 Hemoglobin (Bld) [Mass/Vol] 13.4 g/dL 13.0-16.5 [facility] Blood lymphocytes/100 leukoc ytesOrdered By: Guilherme Butt on 07-21-2022 Lymphocytes/100 WBC (Bld) 26.7 % 19-41 [facility] Blood monocytes/100 leukocyt esOrdered By: Guilherme Butt on 07-21-2022 Monocytes/100 WBC (Bld) 9.6 % 0-10 [facility] Blood platelet mean volumeOr dered By: Guilherme Butt on 07-21-2022 Platelet mean volume (Bld) [Entitic vol] 9.3 fL 6.2-12.0 [facility] Determination of erythrocyte mean corpuscular volume (MCV)Ordered By: Guilherme Butt on 07-21-2022 MCV (RBC) [Entitic vol] 95.1 fL 80-94 [facility] Hematocrit Auto (Bld) [Volum e fraction]Ordered By: Guilherme Butt on 07-21-2022 Hematocrit (Bld) [Volume fraction] 39.0 % 40-54 [facility] Laboratory - Chemistry and C hemistry - challengeOrdered By: Kellybark riverdmitri Butt on 07-21-2022 CO2 [Moles/Vol] 28.0 mmol/L 21.0-32.0 [facility] Urea nitrogen/Creatinine [Mass ratio] 30.0 mg/mg 10-20 [facility] Laboratory - Hematology and Cell countsOrdered By: Kellybark riverdmitri Butt on 07-21-2022 Erythrocyte distribution width (RBC) [Entitic vol] 44.6 fL 35.1-43.9 [facility] Erythrocyte distribution width (RBC) [Ratio] 12.8 % 11.6-14.6 [facility] Immature granulocytes/100 WBC (Bld) 0.500 % 0.0-0.9 [facility] Comment on above: IG% - Immature Granu locytes (promyelocytes, myelocytes and metamyelocytes) > 1% indicates that a LEFT SHIFT is Present. MCH (RBC) [Entitic mass] 32.7 pg 27.0-32.0 [facility] Nucleated RBC/100 WBC (Bld) [Ratio] 0 % 0-5 [facility] MCHC Auto (RBC) [Mass/Vol]Or dered By: Guilherme Butt on 07-21-2022 MCHC (RBC) [Mass/Vol] 34.4 g/dL 32-36 [facility] No Panel InformationOrdered By: Kellybark riverdmitri Butt on 07-21-2022 Estimated GFR (MDRD) Amer 101 mL/min >60 [facility] Comment on above: GFR Calc Estimated GFR (MDRD) Non-Af Amer 84 mL/min >60 [facility] Comment on above: Non- GFR Calc Platelets bldOrdered By: Jamaal Butt on 07-21-2022 Platelets (Bld) [#/Vol] 155 10*3/uL 150-450 [facility] Serum or plasma calcium farshad urement (mass/volume)Ordered By: Guilherme Butt on 07-21-2022 Calcium [Mass/Vol] 8.7 mg/dL 8.5-10.1 [facility] Serum or plasma creatinine m easurement (mass/volume)Ordered By: Guilherme Butt on 07-21-2022 Creatinine [Mass/Vol] 0.93 mg/dL 0.70-1.30 [facility] Comment on above: The validity of the calculated GFR & GFRAA in patients over 70 years has not been determined. Clinical correlation is essential. Serum or plasma urea nitroge n measurement (mass/volume)Ordered By: Guilherme Butt on 07-21-2022 Urea nitrogen [Mass/Vol] 28 mg/dL 7-18 [facility] Thin prep Papanicolaou smear with manual screeningOrdered By: Guilherme Butt on 07-21-2022 Thin prep Papanicolaou smear with manual screening 8 5-15 [facility] Basophil percentageOrdered B y: Marion Living on 06-23-2022 Chloride [Moles/Vol] 105 mmol/L 98-107 [facility] Glucose [Mass/Vol] 100 mg/dL 74-106 [facility] Comment on above: Fasting Glucose resu lt from 100 to 125 mg/dL suggests IMPAIRED HOMEOSTASIS per A.D.A. criteria. Potassium [Moles/Vol] 4.5 mmol/L 3.5-5.1 [facility] Sodium [Moles/Vol] 142 mmol/L 136-145 [facility] WBC (Bld) [#/Vol] 6.2 10*3/uL 4.4-11.0 [facility] Blood erythrocytes count (nu mber/volume)Ordered By: Howard Living on 06-23-2022 RBC (Bld) [#/Vol] 4.28 10*6/uL 4.6-6.2 [facility] Blood hemoglobin measurement (mass/volume)Ordered By: Marion Living on 06-23-2022 Hemoglobin (Bld) [Mass/Vol] 13.6 g/dL 13.0-16.5 [facility] Blood platelet mean volumeOr dered By: Marion Living on 06-23-2022 Platelet mean volume (Bld) [Entitic vol] 9.3 fL 6.2-12.0 [facility] Determination of erythrocyte mean corpuscular volume (MCV)Ordered By: Marion Living on 06-23-2022 MCV (RBC) [Entitic vol] 97.9 fL 80-94 [facility] Hematocrit Auto (Bld) [Volum e fraction]Ordered By: [facility] on 06-23-2022 Hematocrit (Bld) [Volume fraction] 41.9 % 40-54 [facility] Laboratory - Chemistry and C hemistry - challengeOrdered By: [facility] on 06-23-2022 CO2 [Moles/Vol] 32.0 mmol/L 21.0-32.0 [facility] Urea nitrogen/Creatinine [Mass ratio] 33.0 mg/mg 10-20 [facility] Laboratory - Hematology and Cell countsOrdered By: Marion Living on 06-23-2022 Erythrocyte distribution width (RBC) [Entitic vol] 45.8 fL 35.1-43.9 [facility] Erythrocyte distribution width (RBC) [Ratio] 12.9 % 11.6-14.6 [facility] MCH (RBC) [Entitic mass] 31.8 pg 27.0-32.0 [facility] MCHC Auto (RBC) [Mass/Vol]Or dered By: Marion Living on 06-23-2022 MCHC (RBC) [Mass/Vol] 32.5 g/dL 32-36 [facility] No Panel InformationOrdered By: Marion Living on 06-23-2022 Estimated GFR (MDRD) Amer 84 mL/min >60 [facility] Comment on above: GFR Calc Estimated GFR (MDRD) Non-Af Amer 70 mL/min >60 [facility] Comment on above: Non- GFR Calc Platelets bldOrdered By: Sander parkinson Living on 06-23-2022 Platelets (Bld) [#/Vol] 183 10*3/uL 150-450 [facility] Serum or plasma calcium farshad urement (mass/volume)Ordered By: [facility] on 06-23-2022 Calcium [Mass/Vol] 9.2 mg/dL 8.5-10.1 [facility] Serum or plasma creatinine m easurement (mass/volume)Ordered By: [facility] on 06-23-2022 Creatinine [Mass/Vol] 1.09 mg/dL 0.70-1.30 [facility] Comment on above: The validity of the calculated GFR & GFRAA in patients over 70 years has not been determined. Clinical correlation is essential. Serum or plasma urea nitroge n measurement (mass/volume)Ordered By: [facility] on 06-23-2022 Urea nitrogen [Mass/Vol] 36 mg/dL 7-18 [facility] Thin prep Papanicolaou smear with manual screeningOrdered By: [facility] on 06-23-2022 Thin prep Papanicolaou smear with manual screening 5 5-15 [facility] Basophil percentageOrdered B y: Maikel Mosquera on 05-26-2022 Chloride [Moles/Vol] 106 mmol/L 98-107 [facility] Glucose [Mass/Vol] 100 mg/dL 74-106 [facility] Comment on above: Fasting Glucose resu lt from 100 to 125 mg/dL suggests IMPAIRED HOMEOSTASIS per A.D.A. criteria. Potassium [Moles/Vol] 4.8 mmol/L 3.5-5.1 [facility] Sodium [Moles/Vol] 141 mmol/L 136-145 [facility] WBC (Bld) [#/Vol] 5.1 10*3/uL 4.4-11.0 [facility] Blood erythrocytes count (nu mber/volume)Ordered By: Maikel Mosquera on 05-26-2022 RBC (Bld) [#/Vol] 4.34 10*6/uL 4.6-6.2 [facility] Blood hemoglobin measurement (mass/volume)Ordered By: Maikel Mosquera on 05-26-2022 Hemoglobin (Bld) [Mass/Vol] 13.8 g/dL 13.0-16.5 [facility] Blood platelet mean volumeOr dered By: Maikel Mosquera on 05-26-2022 Platelet mean volume (Bld) [Entitic vol] 9.5 fL 6.2-12.0 [facility] Determination of erythrocyte mean corpuscular volume (MCV)Ordered By: Maikel Mosquera on 05-26-2022 MCV (RBC) [Entitic vol] 96.3 fL 80-94 [facility] Hematocrit Auto (Bld) [Volum e fraction]Ordered By: Maikel Mosquera on 05-26-2022 Hematocrit (Bld) [Volume fraction] 41.8 % 40-54 [facility] Laboratory - Chemistry and C hemistry - challengeOrdered By: Maikel Mosquera on 05-26-2022 CO2 [Moles/Vol] 30.0 mmol/L 21.0-32.0 [facility] Urea nitrogen/Creatinine [Mass ratio] 33.7 mg/mg 10-20 [facility] Laboratory - Hematology and Cell countsOrdered By: Maikel Mosquera on 05-26-2022 Erythrocyte distribution width (RBC) [Entitic vol] 44.0 fL 35.1-43.9 [facility] Erythrocyte distribution width (RBC) [Ratio] 12.5 % 11.6-14.6 [facility] MCH (RBC) [Entitic mass] 31.8 pg 27.0-32.0 [facility] MCHC Auto (RBC) [Mass/Vol]Or dered By: Maikel Mosquera on 05-26-2022 MCHC (RBC) [Mass/Vol] 33.0 g/dL 32-36 [facility] No Panel InformationOrdered By: Maikel Mosquera on 05-26-2022 Estimated GFR (MDRD) Amer 89 mL/min >60 [facility] Comment on above: GFR Calc Estimated GFR (MDRD) Non-Af Amer 74 mL/min >60 [facility] Comment on above: Non- GFR Calc Platelets bldOrdered By: Chance Mosquera on 05-26-2022 Platelets (Bld) [#/Vol] 185 10*3/uL 150-450 [facility] Serum or plasma calcium farshad urement (mass/volume)Ordered By: Maikel Mosquera on 05-26-2022 Calcium [Mass/Vol] 9.0 mg/dL 8.5-10.1 [facility] Serum or plasma creatinine m easurement (mass/volume)Ordered By: Maikel Mosquera on 05-26-2022 Creatinine [Mass/Vol] 1.04 mg/dL 0.70-1.30 [facility] Comment on above: The validity of the calculated GFR & GFRAA in patients over 70 years has not been determined. Clinical correlation is essential. Serum or plasma urea nitroge n measurement (mass/volume)Ordered By: Maikel Mosquera on 05-26-2022 Urea nitrogen [Mass/Vol] 35 mg/dL 7-18 [facility] Thin prep Papanicolaou smear with manual screeningOrdered By: Maikel Mosquera on 05-26-2022 Thin prep Papanicolaou smear with manual screening 5 5-15 [facility] Basophil percentageOrdered B y: Maikel Mosquera on 04-21-2022 Chloride [Moles/Vol] 108 mmol/L 98-107 [facility] Glucose [Mass/Vol] 104 mg/dL 74-106 [facility] Comment on above: Fasting Glucose resu lt from 100 to 125 mg/dL suggests IMPAIRED HOMEOSTASIS per A.D.A. criteria. Potassium [Moles/Vol] 4.3 mmol/L 3.5-5.1 [facility] Sodium [Moles/Vol] 142 mmol/L 136-145 [facility] WBC (Bld) [#/Vol] 4.4 10*3/uL 4.4-11.0 [facility] Blood erythrocytes count (nu mber/volume)Ordered By: Maikel Mosquera on 04-21-2022 RBC (Bld) [#/Vol] 4.18 10*6/uL 4.6-6.2 [facility] Blood hemoglobin measurement (mass/volume)Ordered By: Maikel Mosquera on 04-21-2022 Hemoglobin (Bld) [Mass/Vol] 13.2 g/dL 13.0-16.5 [facility] Blood platelet mean volumeOr dered By: Maikel Mosquera on 04-21-2022 Platelet mean volume (Bld) [Entitic vol] 9.6 fL 6.2-12.0 [facility] Determination of erythrocyte mean corpuscular volume (MCV)Ordered By: Maikel Mosquera on 04-21-2022 MCV (RBC) [Entitic vol] 97.1 fL 80-94 [facility] Hematocrit Auto (Bld) [Volum e fraction]Ordered By: Maikel Mosquera on 04-21-2022 Hematocrit (Bld) [Volume fraction] 40.6 % 40-54 [facility] Laboratory - Chemistry and C hemistry - challengeOrdered By: Maikel Mosquera on 04-21-2022 CO2 [Moles/Vol] 30.0 mmol/L 21.0-32.0 [facility] Urea nitrogen/Creatinine [Mass ratio] 33.0 mg/mg 10-20 [facility] Laboratory - Hematology and Cell countsOrdered By: Maikel Mosquera on 04-21-2022 Erythrocyte distribution width (RBC) [Entitic vol] 46.2 fL 35.1-43.9 [facility] Erythrocyte distribution width (RBC) [Ratio] 12.9 % 11.6-14.6 [facility] MCH (RBC) [Entitic mass] 31.6 pg 27.0-32.0 [facility] MCHC Auto (RBC) [Mass/Vol]Or dered By: Maikel Mosquera on 04-21-2022 MCHC (RBC) [Mass/Vol] 32.5 g/dL 32-36 [facility] No Panel InformationOrdered By: Maikel Mosquera on 04-21-2022 Estimated GFR (MDRD) Amer 90 mL/min >60 [facility] Comment on above: GFR Calc Estimated GFR (MDRD) Non-Af Amer 75 mL/min >60 [facility] Comment on above: Non- GFR Calc Platelets bldOrdered By: Chance Mosquera on 04-21-2022 Platelets (Bld) [#/Vol] 177 10*3/uL 150-450 [facility] Serum or plasma calcium farshad urement (mass/volume)Ordered By: Maikel Mosquera on 04-21-2022 Calcium [Mass/Vol] 9.1 mg/dL 8.5-10.1 [facility] Serum or plasma creatinine m easurement (mass/volume)Ordered By: Maikel Mosquera on 04-21-2022 Creatinine [Mass/Vol] 1.03 mg/dL 0.70-1.30 [facility] Comment on above: The validity of the calculated GFR & GFRAA in patients over 70 years has not been determined. Clinical correlation is essential. Serum or plasma urea nitroge n measurement (mass/volume)Ordered By: Maikel Mosquera on 04-21-2022 Urea nitrogen [Mass/Vol] 34 mg/dL 7-18 [facility] Thin prep Papanicolaou smear with manual screeningOrdered By: Maikel Mosquera on 04-21-2022 Thin prep Papanicolaou smear with manual screening 4 5-15 [facility] Absolute lymphocyte countOrd ered By: Dr. Sanchez on 04-03-2022 Lymphocytes Auto (Unsp spec) [#/Vol] 1.15 10*3/uL 0.83-4.51 [facility] Basophil percentageOrdered B y: Dr. Sanchez on 04-03-2022 Basophils/100 WBC (Bld) 0.4 % 0-1 [facility] Chloride [Moles/Vol] 106 mmol/L 98-107 [facility] Eosinophils/100 WBC (Bld) 3.3 % 0-5 [facility] Glucose [Mass/Vol] 140 mg/dL 74-106 [facility] Comment on above: Fasting Glucose resu lt greater than or equal to 126 mg/dL suggests DIABETES MELLITUS per A.D.A. criteria. Neutrophils (Bld) [#/Vol] 2.9 10*3/uL 2.0-7.7 [facility] Neutrophils/100 WBC (Bld) 63.1 % 47-70 [facility] Potassium [Moles/Vol] 4.2 mmol/L 3.5-5.1 [facility] Sodium [Moles/Vol] 142 mmol/L 136-145 [facility] WBC (Bld) [#/Vol] 4.6 10*3/uL 4.4-11.0 [facility] Blood erythrocytes count (nu mber/volume)Ordered By: Dr. Sanchez on 04-03-2022 RBC (Bld) [#/Vol] 4.45 10*6/uL 4.6-6.2 [facility] Blood hemoglobin measurement (mass/volume)Ordered By: Dr. Sanchez on 04-03-2022 Hemoglobin (Bld) [Mass/Vol] 14.1 g/dL 13.0-16.5 [facility] Blood lymphocytes/100 leukoc ytesOrdered By: Dr. Sanchez on 04-03-2022 Lymphocytes/100 WBC (Bld) 25.3 % 19-41 [facility] Blood monocytes/100 leukocyt esOrdered By: Dr. Sanchez on 04-03-2022 Monocytes/100 WBC (Bld) 7.7 % 0-10 [facility] Blood platelet mean volumeOr dered By: Dr. Sanchez on 04-03-2022 Platelet mean volume (Bld) [Entitic vol] 9.3 fL 6.2-12.0 [facility] Determination of erythrocyte mean corpuscular volume (MCV)Ordered By: Dr. Sanchez on 04-03-2022 MCV (RBC) [Entitic vol] 95.5 fL 80-94 [facility] Hematocrit Auto (Bld) [Volum e fraction]Ordered By: Dr. Sanchez on 04-03-2022 Hematocrit (Bld) [Volume fraction] 42.5 % 40-54 [facility] Laboratory - Chemistry and C hemistry - challengeOrdered By: Dr. Sanchez on 04-03-2022 CO2 [Moles/Vol] 31.0 mmol/L 21.0-32.0 [facility] Urea nitrogen/Creatinine [Mass ratio] 30.7 mg/mg 10-20 [facility] Laboratory - Hematology and Cell countsOrdered By: Dr. Sanchez on 04-03-2022 Erythrocyte distribution width (RBC) [Entitic vol] 45.9 fL 35.1-43.9 [facility] Erythrocyte distribution width (RBC) [Ratio] 12.9 % 11.6-14.6 [facility] Immature granulocytes/100 WBC (Bld) 0.200 % 0.0-0.9 [facility] Comment on above: IG% - Immature Granu locytes (promyelocytes, myelocytes and metamyelocytes) > 1% indicates that a LEFT SHIFT is Present. MCH (RBC) [Entitic mass] 31.7 pg 27.0-32.0 [facility] Nucleated RBC/100 WBC (Bld) [Ratio] 0 % 0-5 [facility] MCHC Auto (RBC) [Mass/Vol]Or dered By: Dr. Sanchez on 04-03-2022 MCHC (RBC) [Mass/Vol] 33.2 g/dL 32-36 [facility] No Panel InformationOrdered By: Dr. Sanchez on 04-03-2022 Troponin I High Sensitivity 7 pg/mL 3.0-78.0 [facility] Comment on above: Please Note: [place] t Units and Gender Specific Reference Ranges. For more information see Policy Stat Procedure [place] High Sensitivity Troponin (TNIH) and attachments. Estimated Creatinine Clearance Calc 70.39 ml/min [facility] Estimated GFR (MDRD) Amer 96 mL/min >60 [facility] Comment on above: GFR Calc Estimated GFR (MDRD) Non-Af Amer 79 mL/min >60 [facility] Comment on above: Non- GFR Calc Platelets bldOrdered By: Dr. Sanchez on 04-03-2022 Platelets (Bld) [#/Vol] 173 10*3/uL 150-450 [facility] Serum or plasma calcium farshad urement (mass/volume)Ordered By: Dr. Sanchez on 04-03-2022 Calcium [Mass/Vol] 9.1 mg/dL 8.5-10.1 [facility] Serum or plasma creatinine m easurement (mass/volume)Ordered By: Dr. Sanchez on 04-03-2022 Creatinine [Mass/Vol] 0.98 mg/dL 0.70-1.30 [facility] Comment on above: The validity of the calculated GFR & GFRAA in patients over 70 years has not been determined. Clinical correlation is essential. Serum or plasma urea nitroge n measurement (mass/volume)Ordered By: Dr. Sanchez on 04-03-2022 Urea nitrogen [Mass/Vol] 30 mg/dL 7-18 [facility] Thin prep Papanicolaou smear with manual screeningOrdered By: Dr. Sanchez on 04-03-2022 Thin prep Papanicolaou smear with manual screening 5 5-15 [facility] Basophil percentageOrdered B y: Maikel Mosquera on 03-24-2022 Chloride [Moles/Vol] 105 mmol/L 98-107 [facility] Glucose [Mass/Vol] 85 mg/dL 74-106 [facility] Potassium [Moles/Vol] 4.7 mmol/L 3.5-5.1 [facility] Sodium [Moles/Vol] 140 mmol/L 136-145 [facility] WBC (Bld) [#/Vol] 4.9 10*3/uL 4.4-11.0 [facility] Blood erythrocytes count (nu mber/volume)Ordered By: Maikel Mosquera on 03-24-2022 RBC (Bld) [#/Vol] 4.14 10*6/uL 4.6-6.2 [facility] Blood hemoglobin measurement (mass/volume)Ordered By: Maikel Mosquera on 03-24-2022 Hemoglobin (Bld) [Mass/Vol] 13.0 g/dL 13.0-16.5 [facility] Blood platelet mean volumeOr dered By: Maikel Mosquera on 03-24-2022 Platelet mean volume (Bld) [Entitic vol] 9.5 fL 6.2-12.0 [facility] Determination of erythrocyte mean corpuscular volume (MCV)Ordered By: Maikel Mosquera on 03-24-2022 MCV (RBC) [Entitic vol] 94.9 fL 80-94 [facility] Hematocrit Auto (Bld) [Volum e fraction]Ordered By: Maikel Mosquera on 03-24-2022 Hematocrit (Bld) [Volume fraction] 39.3 % 40-54 [facility] Laboratory - Chemistry and C hemistry - challengeOrdered By: Maikel Mosquera on 03-24-2022 CO2 [Moles/Vol] 30.0 mmol/L 21.0-32.0 [facility] Urea nitrogen/Creatinine [Mass ratio] 29.8 mg/mg 10-20 [facility] Laboratory - Hematology and Cell countsOrdered By: Maikel Mosquera on 03-24-2022 Erythrocyte distribution width (RBC) [Entitic vol] 45.6 fL 35.1-43.9 [facility] Erythrocyte distribution width (RBC) [Ratio] 13.1 % 11.6-14.6 [facility] MCH (RBC) [Entitic mass] 31.4 pg 27.0-32.0 [facility] MCHC Auto (RBC) [Mass/Vol]Or dered By: Maikel Mosquera on 03-24-2022 MCHC (RBC) [Mass/Vol] 33.1 g/dL 32-36 [facility] No Panel InformationOrdered By: Maikel Mosquera on 03-24-2022 Estimated GFR (MDRD) Amer 89 mL/min >60 [facility] Comment on above: GFR Calc Estimated GFR (MDRD) Non-Af Amer 74 mL/min >60 [facility] Comment on above: Non- GFR Calc Platelets bldOrdered By: Chance Mosquera on 03-24-2022 Platelets (Bld) [#/Vol] 169 10*3/uL 150-450 [facility] Serum or plasma calcium farshad urement (mass/volume)Ordered By: Maikel Mosquera on 03-24-2022 Calcium [Mass/Vol] 8.8 mg/dL 8.5-10.1 [facility] Serum or plasma creatinine m easurement (mass/volume)Ordered By: Maikel Mosquera on 03-24-2022 Creatinine [Mass/Vol] 1.04 mg/dL 0.70-1.30 [facility] Comment on above: The validity of the calculated GFR & GFRAA in patients over 70 years has not been determined. Clinical correlation is essential. Serum or plasma urea nitroge n measurement (mass/volume)Ordered By: Maikel Mosquera on 03-24-2022 Urea nitrogen [Mass/Vol] 31 mg/dL 7-18 [facility] Thin prep Papanicolaou smear with manual screeningOrdered By: Maikel Mosquera on 03-24-2022 Thin prep Papanicolaou smear with manual screening 5 5-15 [facility] Basophil percentageOrdered B y: Maikel Mosquera on 02-24-2022 Chloride [Moles/Vol] 107 mmol/L 98-107 [facility] Glucose [Mass/Vol] 87 mg/dL 74-106 [facility] Potassium [Moles/Vol] 4.8 mmol/L 3.5-5.1 [facility] Sodium [Moles/Vol] 141 mmol/L 136-145 [facility] WBC (Bld) [#/Vol] 5.2 10*3/uL 4.4-11.0 [facility] Blood erythrocytes count (nu mber/volume)Ordered By: Maikel Mosquera on 02-24-2022 RBC (Bld) [#/Vol] 4.39 10*6/uL 4.6-6.2 [facility] Blood hemoglobin measurement (mass/volume)Ordered By: Maikel Mosquera on 02-24-2022 Hemoglobin (Bld) [Mass/Vol] 14.3 g/dL 13.0-16.5 [facility] Blood platelet mean volumeOr dered By: Maikel Mosquera on 02-24-2022 Platelet mean volume (Bld) [Entitic vol] 9.2 fL 6.2-12.0 [facility] Determination of erythrocyte mean corpuscular volume (MCV)Ordered By: Maikel Mosquera on 02-24-2022 MCV (RBC) [Entitic vol] 95.4 fL 80-94 [facility] Hematocrit Auto (Bld) [Volum e fraction]Ordered By: Maikel Mosquera on 02-24-2022 Hematocrit (Bld) [Volume fraction] 41.9 % 40-54 [facility] Laboratory - Chemistry and C hemistry - challengeOrdered By: Maikel Mosquera on 02-24-2022 CO2 [Moles/Vol] 30.0 mmol/L 21.0-32.0 [facility] Urea nitrogen/Creatinine [Mass ratio] 27.5 mg/mg 10-20 [facility] Laboratory - Hematology and Cell countsOrdered By: Maikel Mosquera on 02-24-2022 Erythrocyte distribution width (RBC) [Entitic vol] 44.2 fL 35.1-43.9 [facility] Erythrocyte distribution width (RBC) [Ratio] 12.6 % 11.6-14.6 [facility] MCH (RBC) [Entitic mass] 32.6 pg 27.0-32.0 [facility] MCHC Auto (RBC) [Mass/Vol]Or dered By: Maikel Mosquera on 02-24-2022 MCHC (RBC) [Mass/Vol] 34.1 g/dL 32-36 [facility] No Panel InformationOrdered By: Maikel Mosquera on 02-24-2022 Estimated GFR (MDRD) Amer 91 mL/min >60 [facility] Comment on above: GFR Calc Estimated GFR (MDRD) Non-Af Amer 75 mL/min >60 [facility] Comment on above: Non- GFR Calc Platelets bldOrdered By: Chance Mosquera on 02-24-2022 Platelets (Bld) [#/Vol] 162 10*3/uL 150-450 [facility] Serum or plasma calcium farshad urement (mass/volume)Ordered By: Maikel Mosquera on 02-24-2022 Calcium [Mass/Vol] 9.1 mg/dL 8.5-10.1 [facility] Serum or plasma creatinine m easurement (mass/volume)Ordered By: Maikel Mosquera on 02-24-2022 Creatinine [Mass/Vol] 1.02 mg/dL 0.70-1.30 [facility] Comment on above: The validity of the calculated GFR & GFRAA in patients over 70 years has not been determined. Clinical correlation is essential. Serum or plasma urea nitroge n measurement (mass/volume)Ordered By: Maikel Mosquera on 02-24-2022 Urea nitrogen [Mass/Vol] 28 mg/dL 7-18 [facility] Thin prep Papanicolaou smear with manual screeningOrdered By: Maikel Mosquera on 02-24-2022 Thin prep Papanicolaou smear with manual screening 4 5-15 [facility] Basophil percentageon 2021 Bilirubin [Mass/Vol] 0.50 mg/dL 0.20-1.00 [facility] Work Phone: Comment on above: For patients on eltr ombopag therapy, use of Dimension [place] TBIL is not recommended. Cholesterol [Mass/Vol] 184 mg/dL <200 [facility] Work Phone: Comment on above: <200 mg/dL Desirable 200-240 mg/dL Borderline >240 mg/dL High Risk Protein [Mass/Vol] 6.3 g/dL 6.4-8.2 [facility] Work Phone: Triglyceride [Mass/Vol] 103 mg/dL <199 [facility] Work Phone: Comment on above: The drugs N-Acetylcy steine and Metamizole may falsely depress this assay.Serum Triglycerides Reference Interval Normal <150 mg/dL Borderline high 150 - 199 mg/dL High 200 - 499 mg/dL Very High > or = 500 mg/dL Direct bilirubinon 2 Bilirubin.direct [Mass/Vol] 0.12 mg/dL 0.00-0.30 [facility] Work Phone: Laboratory - Chemistry and C hemistry - challengeon 02-07-2022 ALP [Catalytic activity/Vol] 118 U/L 45-117 [facility] Work Phone: ALT [Catalytic activity/Vol] 8 U/L 16-61 [facility] Work Phone: Free T4 [Mass/Vol] 0.87 ng/dL 0.76-1.46 [facility] Work Phone: Globulin (S) [Mass/Vol] 3.0 g/dL 2.2-4.2 [facility] Work Phone: No Panel Informationon 02-07 Thyroid Stimulating Hormone (TSH) 0.81 uIU/mL 0.358-3.74 [facility] Work Phone: Serum or plasma albumin farshad urement (mass/volume)on 02-07-2022 Albumin [Mass/Vol] 3.3 g/dL 3.2-5.0 [facility] Work Phone: Serum or plasma cholesterol in HDL measurement (mass/volume)on 02-07-2022 Cholesterol in HDL [Mass/Vol] 44 mg/dL >40 [facility] Work Phone: Comment on above: The drugs N-Acetylcy steine and Metamizole may falsely depress this assay. Reference Range HDL <40 mg/dL Low HDL Cholesterol HDL >or= 60 mg/dL High HDL Cholesterol Serum or plasma cholesterol in VLDL measurement (mass/volume)on 02-07-2022 Cholesterol in VLDL [Mass/Vol] 21 mg/dL 5-40 [facility] Work Phone: Serum or plasma low density lipoprotein (LDL) cholesterol measurement (mass/volume)on 02-07-2022 Cholesterol in LDL [Mass/Vol] 119 mg/dL 0-130 [facility] Work Phone: Thin prep Papanicolaou smear with manual screeningon 02-07-2022 Thin prep Papanicolaou smear with manual screening 12 U/L 15-37 [facility] Work Phone: Whole blood hemoglobin A1c/t otal hemoglobin ratio (mass fraction)on 02-07-2022 HbA1c (Bld) [Mass fraction] 5.6 % 3.8-5.6 [facility] Work Phone: Comment on above: Normal < 5.7 % Predi abetic 5.7 - 6.4 % Diabetic >or= 6.5 % Please note range changes. Basophil percentageon 2021 Chloride [Moles/Vol] 104 mmol/L 98-107 [facility] Work [facility]: Glucose [Mass/Vol] 87 mg/dL 74-106 [facility] Work Phone: Potassium [Moles/Vol] 4.3 mmol/L 3.5-5.1 [facility] Work Phone: Sodium [Moles/Vol] 140 mmol/L 136-145 [facility] Work Phone: WBC (Bld) [#/Vol] 4.6 10*3/uL 4.4-11.0 [facility] Work Phone: Blood erythrocytes count (nu mber/volume)on 01-20-2022 RBC (Bld) [#/Vol] 4.17 10*6/uL 4.6-6.2 [facility] Work Phone: Blood hemoglobin measurement (mass/volume)on 01-20-2022 Hemoglobin (Bld) [Mass/Vol] 13.2 g/dL 13.0-16.5 [facility] Work Phone: Blood platelet mean volumeon 01-20-2022 Platelet mean volume (Bld) [Entitic vol] 9.2 fL 6.2-12.0 [facility] Work Phone: Determination of erythrocyte mean corpuscular volume (MCV)on 01-20-2022 MCV (RBC) [Entitic vol] 93.0 fL 80-94 [facility] Work Phone: Hematocrit Auto (Bld) [Volum e fraction]on 01-20-2022 Hematocrit (Bld) [Volume fraction] 38.8 % 40-54 [facility] Work Phone: Laboratory - Chemistry and C hemistry - challengeon 01-20-2022 CO2 [Moles/Vol] 29.0 mmol/L 21.0-32.0 [facility] Work Phone: Urea nitrogen/Creatinine [Mass ratio] 28.6 mg/mg 10-20 [facility] Work Phone: Laboratory - Hematology and Cell countson 01-20-2022 Erythrocyte distribution width (RBC) [Entitic vol] 42.7 fL 35.1-43.9 [facility] Work Phone: Erythrocyte distribution width (RBC) [Ratio] 12.6 % 11.6-14.6 [facility] Work Phone: MCH (RBC) [Entitic mass] 31.7 pg 27.0-32.0 [facility] Work Phone: MCHC Auto (RBC) [Mass/Vol]on 01-20-2022 MCHC (RBC) [Mass/Vol] 34.0 g/dL 32-36 [facility] Work Phone: No Panel Informationon 01-20 Estimated GFR (MDRD) Amer 100 mL/min >60 [facility] Work Phone: Comment on above: GFR Calc Estimated GFR (MDRD) Non-Af Amer 82 mL/min >60 [facility] Work Phone: Comment on above: Non- GFR Calc Platelets bldon 01-20-2022 Platelets (Bld) [#/Vol] 178 10*3/uL 150-450 [facility] Work Phone: Serum or plasma calcium farshad urement (mass/volume)on 01-20-2022 Calcium [Mass/Vol] 9.0 mg/dL 8.5-10.1 [facility] Work Phone: Serum or plasma creatinine m easurement (mass/volume)on 01-20-2022 Creatinine [Mass/Vol] 0.94 mg/dL 0.70-1.30 [facility] Work Phone: Comment on above: The validity of the calculated GFR & GFRAA in patients over 70 years has not been determined. Clinical correlation is essential. Serum or plasma urea nitroge n measurement (mass/volume)on 01-20-2022 Urea nitrogen [Mass/Vol] 27 mg/dL 7-18 [facility] Work Phone: Thin prep Papanicolaou smear with manual screeningon 01-20-2022 Thin prep Papanicolaou smear with manual screening 7 5-15 [facility] Work Phone: Basophil percentageon 2021 Chloride [Moles/Vol] 105 mmol/L 98-107 [facility] Work Phone: Glucose [Mass/Vol] 89 mg/dL 74-106 [facility] Work Phone: Potassium [Moles/Vol] 4.2 mmol/L 3.5-5.1 [facility] Work Phone: Sodium [Moles/Vol] 138 mmol/L 136-145 [facility] Work Phone: WBC (Bld) [#/Vol] 4.2 10*3/uL 4.4-11.0 [facility] Work Phone: Blood erythrocytes count (nu mber/volume)on 12-23-2021 RBC (Bld) [#/Vol] 4.15 10*6/uL 4.6-6.2 [facility] Work Phone: Blood hemoglobin measurement (mass/volume)on 12-23-2021 Hemoglobin (Bld) [Mass/Vol] 13.5 g/dL 13.0-16.5 [facility] Work Phone: Blood platelet mean volumeon 12-23-2021 Platelet mean volume (Bld) [Entitic vol] 9.3 fL 6.2-12.0 [facility] Work Phone: Determination of erythrocyte mean corpuscular volume (MCV)on 12-23-2021 MCV (RBC) [Entitic vol] 94.5 fL 80-94 [facility] Work Phone: Hematocrit Auto (Bld) [Volum e fraction]on 12-23-2021 Hematocrit (Bld) [Volume fraction] 39.2 % 40-54 [facility] Work Phone: Laboratory - Chemistry and C hemistry - challengeon 12-23-2021 CO2 [Moles/Vol] 29.0 mmol/L 21.0-32.0 [facility] Work Phone: Urea nitrogen/Creatinine [Mass ratio] 35.5 mg/mg 10-20 [facility] Work Phone: Laboratory - Hematology and Cell countson 12-23-2021 Erythrocyte distribution width (RBC) [Entitic vol] 43.9 fL 35.1-43.9 [facility] Work Phone: Erythrocyte distribution width (RBC) [Ratio] 12.7 % 11.6-14.6 [facility] Work Phone: MCH (RBC) [Entitic mass] 32.5 pg 27.0-32.0 [facility] Work Phone: MCHC Auto (RBC) [Mass/Vol]on 12-23-2021 MCHC (RBC) [Mass/Vol] 34.4 g/dL 32-36 [facility] Work Phone: No Panel Informationon 12-23 Estimated GFR (MDRD) Amer 114 mL/min >60 [facility] Work Phone: Comment on above: GFR Calc Estimated GFR (MDRD) Non-Af Amer 94 mL/min >60 [facility] Work Phone: Comment on above: Non- GFR Calc Platelets bldon 12-23-2021 Platelets (Bld) [#/Vol] 173 10*3/uL 150-450 [facility] Work Phone: Serum or plasma calcium farshad urement (mass/volume)on 12-23-2021 Calcium [Mass/Vol] 8.9 mg/dL 8.5-10.1 [facility] Work Phone: Serum or plasma creatinine m easurement (mass/volume)on 12-23-2021 Creatinine [Mass/Vol] 0.84 mg/dL 0.70-1.30 [facility] Work Phone: Comment on above: The validity of the calculated GFR & GFRAA in patients over 70 years has not been determined. Clinical correlation is essential. Serum or plasma urea nitroge n measurement (mass/volume)on 12-23-2021 Urea nitrogen [Mass/Vol] 30 mg/dL 7-18 [facility] Work Phone: Thin prep Papanicolaou smear with manual screeningon 12-23-2021 Thin prep Papanicolaou smear with manual screening 4 5-15 [facility] Work Phone: Basophil percentageon 2021 Chloride [Moles/Vol] 108 mmol/L 98-107 [facility] Work Phone: Glucose [Mass/Vol] 85 mg/dL 74-106 [facility] Work Phone: Potassium [Moles/Vol] 4.5 mmol/L 3.5-5.1 [facility] Work Phone: Sodium [Moles/Vol] 142 mmol/L 136-145 [facility] Work Phone: WBC (Bld) [#/Vol] 4.4 10*3/uL 4.4-11.0 [facility] Work Phone: Blood erythrocytes count (nu mber/volume)on 11-18-2021 RBC (Bld) [#/Vol] 4.00 10*6/uL 4.6-6.2 [facility] Work Phone: Blood hemoglobin measurement (mass/volume)on 11-18-2021 Hemoglobin (Bld) [Mass/Vol] 12.6 g/dL 13.0-16.5 [facility] Work Phone: Blood platelet mean volumeon 11-18-2021 Platelet mean volume (Bld) [Entitic vol] 9.5 fL 6.2-12.0 [facility] Work Phone: Determination of erythrocyte mean corpuscular volume (MCV)on 11-18-2021 MCV (RBC) [Entitic vol] 93.8 fL 80-94 [facility] Work Phone: Hematocrit Auto (Bld) [Volum e fraction]on 11-18-2021 Hematocrit (Bld) [Volume fraction] 37.5 % 40-54 [facility] Work Phone: Laboratory - Chemistry and C hemistry - challengeon 11-18-2021 CO2 [Moles/Vol] 32.0 mmol/L 21.0-32.0 [facility] Work Phone: Urea nitrogen/Creatinine [Mass ratio] 31.3 mg/mg 10-20 [facility] Work Phone: Laboratory - Hematology and Cell countson 11-18-2021 Erythrocyte distribution width (RBC) [Entitic vol] 44.8 fL 35.1-43.9 [facility] Work Phone: Erythrocyte distribution width (RBC) [Ratio] 13.1 % 11.6-14.6 [facility] Work Phone: MCH (RBC) [Entitic mass] 31.5 pg 27.0-32.0 [facility] Work Phone: MCHC Auto (RBC) [Mass/Vol]on 11-18-2021 MCHC (RBC) [Mass/Vol] 33.6 g/dL 32-36 [facility] Work Phone: No Panel Informationon 11-18 Estimated GFR (MDRD) Amer 98 mL/min >60 [facility] Work Phone: Comment on above: GFR Calc Estimated GFR (MDRD) Non-Af Amer 81 mL/min >60 [facility] Work Phone: Comment on above: Non- GFR Calc Platelets bldon 11-18-2021 Platelets (Bld) [#/Vol] 175 10*3/uL 150-450 [facility] Work Phone: Serum or plasma calcium farshad urement (mass/volume)on 11-18-2021 Calcium [Mass/Vol] 9.1 mg/dL 8.5-10.1 [facility] Work Phone: Serum or plasma creatinine m easurement (mass/volume)on 11-18-2021 Creatinine [Mass/Vol] 0.96 mg/dL 0.70-1.30 [facility] Work Phone: Comment on above: The validity of the calculated GFR & GFRAA in patients over 70 years has not been determined. Clinical correlation is essential. Serum or plasma urea nitroge n measurement (mass/volume)on 11-18-2021 Urea nitrogen [Mass/Vol] 30 mg/dL 7-18 [facility] Work Phone: Thin prep Papanicolaou smear with manual screeningon 11-18-2021 Thin prep Papanicolaou smear with manual screening 2 5-15 [facility] Work Phone: Basophil percentageon 2021 Chloride [Moles/Vol] 107 mmol/L 98-107 [facility] Work Phone: Glucose [Mass/Vol] 94 mg/dL 74-106 [facility] Work Phone: Potassium [Moles/Vol] 4.3 mmol/L 3.5-5.1 [facility] Work Phone: Sodium [Moles/Vol] 140 mmol/L 136-145 [facility] Work Phone: WBC (Bld) [#/Vol] 4.4 10*3/uL 4.4-11.0 [facility] Work Phone: Blood erythrocytes count (nu mber/volume)on 10-21-2021 RBC (Bld) [#/Vol] 4.01 10*6/uL 4.6-6.2 [facility] Work Phone: Blood hemoglobin measurement (mass/volume)on 10-21-2021 Hemoglobin (Bld) [Mass/Vol] 12.7 g/dL 13.0-16.5 [facility] Work Phone: Blood platelet mean volumeon 10-21-2021 Platelet mean volume (Bld) [Entitic vol] 9.1 fL 6.2-12.0 [facility] Work Phone: Determination of erythrocyte mean corpuscular volume (MCV)on 10-21-2021 MCV (RBC) [Entitic vol] 96.8 fL 80-94 [facility] Work Phone: Hematocrit Auto (Bld) [Volum e fraction]on 10-21-2021 Hematocrit (Bld) [Volume fraction] 38.8 % 40-54 [facility] Work Phone: Laboratory - Chemistry and C hemistry - challengeon 10-21-2021 CO2 [Moles/Vol] 31.0 mmol/L 21.0-32.0 [facility] Work Phone: Urea nitrogen/Creatinine [Mass ratio] 27.8 mg/mg 10-20 [facility] Work Phone: Laboratory - Hematology and Cell countson 10-21-2021 Erythrocyte distribution width (RBC) [Entitic vol] 44.9 fL 35.1-43.9 [facility] Work Phone: Erythrocyte distribution width (RBC) [Ratio] 12.6 % 11.6-14.6 [facility] Work Phone: MCH (RBC) [Entitic mass] 31.7 pg 27.0-32.0 [facility] Work Phone: MCHC Auto (RBC) [Mass/Vol]on 10-21-2021 MCHC (RBC) [Mass/Vol] 32.7 g/dL 32-36 [facility] Work Phone: No Panel Informationon 10-21 Estimated GFR (MDRD) Amer 97 mL/min >60 [facility] Work Phone: Comment on above: GFR Calc Estimated GFR (MDRD) Non-Af Amer 80 mL/min >60 [facility] Work Phone: Comment on above: Non- GFR Calc Platelets bldon 10-21-2021 Platelets (Bld) [#/Vol] 273 10*3/uL 150-450 [facility] Work Phone: Serum or plasma calcium farshad urement (mass/volume)on 10-21-2021 Calcium [Mass/Vol] 9.1 mg/dL 8.5-10.1 [facility] Work Phone: Serum or plasma creatinine m easurement (mass/volume)on 10-21-2021 Creatinine [Mass/Vol] 0.97 mg/dL 0.70-1.30 [facility] Work Phone: Comment on above: The validity of the calculated GFR & GFRAA in patients over 70 years has not been determined. Clinical correlation is essential. Serum or plasma urea nitroge n measurement (mass/volume)on 10-21-2021 Urea nitrogen [Mass/Vol] 27 mg/dL 7-18 [facility] Work Phone: Thin prep Papanicolaou smear with manual screeningon 10-21-2021 Thin prep Papanicolaou smear with manual screening 2 5-15 [facility] Work Phone: Absolute lymphocyte counton 10-02-2021 Lymphocytes Auto (Unsp spec) [#/Vol] 0.52 10*3/uL 0.83-4.51 [facility] Work Phone: Basophil percentageon 2021 Basophil percentage 0-5 SEEN /hpf 0-5 [facility] Work Phone: Basophils/100 WBC (Bld) 0.1 % 0-1 [facility] Work Phone: Bilirubin [Mass/Vol] 1.30 mg/dL 0.20-1.00 [facility] Work Phone: Comment on above: For patients on eltr ombopag therapy, use of Dimension [place] TBIL is not recommended. Chloride [Moles/Vol] 104 mmol/L 98-107 [facility] Work Phone: Eosinophils/100 WBC (Bld) 0.1 % 0-5 [facility] Work Phone: Glucose [Mass/Vol] 135 mg/dL 74-106 [facility] Work Phone: Comment on above: Fasting Glucose resu lt greater than or equal to 126 mg/dL suggests DIABETES MELLITUS per A.D.A. criteria. Neutrophils (Bld) [#/Vol] 10.9 10*3/uL 2.0-7.7 [facility] Work Phone: Neutrophils/100 WBC (Bld) 91.6 % 47-70 [facility] Work Phone: Potassium [Moles/Vol] 4.1 mmol/L 3.5-5.1 [facility] Work Phone: Protein [Mass/Vol] 7.0 g/dL 6.4-8.2 [facility] Work Phone: Sodium [Moles/Vol] 136 mmol/L 136-145 [facility] Work Phone: WBC (Bld) [#/Vol] 11.9 10*3/uL 4.4-11.0 [facility] Work Phone: Bilirubin Test strip Ql (U)o n 10-02-2021 Bilirubin Ql (U) Negative Negative [facility] Work Phone: Blood erythrocytes count (nu mber/volume)on 10-02-2021 RBC (Bld) [#/Vol] 4.20 10*6/uL 4.6-6.2 [facility] Work Phone: Blood hemoglobin measurement (mass/volume)on 10-02-2021 Hemoglobin (Bld) [Mass/Vol] 13.7 g/dL 13.0-16.5 [facility] Work Phone: Blood lymphocytes/100 leukoc yteson 10-02-2021 Lymphocytes/100 WBC (Bld) 4.4 % 19-41 [facility] Work Phone: Blood manual differential co mment interpretation (narrative result)on 10-02-2021 Manual differential comment Jordi (Bld) [Interp] SCANNED [facility] Work Phone: Comment on above: LYMPHOPENIA NOTED Blood monocytes/100 leukocyt eson 10-02-2021 Monocytes/100 WBC (Bld) 3.3 % 0-10 [facility] Work Phone: Blood platelet mean volumeon 10-02-2021 Platelet mean volume (Bld) [Entitic vol] 9.0 fL 6.2-12.0 [facility] Work Phone: Determination of erythrocyte mean corpuscular volume (MCV)on 10-02-2021 MCV (RBC) [Entitic vol] 92.6 fL 80-94 [facility] Work Phone: Hematocrit Auto (Bld) [Volum e fraction]on 10-02-2021 Hematocrit (Bld) [Volume fraction] 38.9 % 40-54 [facility] Work Phone: Ketones Test strip Ql (U)on 10-02-2021 Ketones Ql (U) 15 mg/dl Negative [facility] Work Phone: Laboratory - Chemistry and C hemistry - challengeon 10-02-2021 ALP [Catalytic activity/Vol] 156 U/L 45-117 [facility] Work Phone: ALT [Catalytic activity/Vol] 14 U/L 16-61 [facility] Work Phone: CO2 [Moles/Vol] 26.0 mmol/L 21.0-32.0 [facility] Work Phone: Globulin (S) [Mass/Vol] 3.2 g/dL 2.2-4.2 [facility] Work Phone: Urea nitrogen/Creatinine [Mass ratio] 23.1 mg/mg 10-20 [facility] Work Phone: Laboratory - Hematology and Cell countson 10-02-2021 Erythrocyte distribution width (RBC) [Entitic vol] 42.7 fL 35.1-43.9 [facility] Work Phone: Erythrocyte distribution width (RBC) [Ratio] 12.6 % 11.6-14.6 [facility] Work Phone: Immature granulocytes/100 WBC (Bld) 0.500 % 0.0-0.9 [facility] Work Phone: Comment on above: IG% - Immature Granu locytes (promyelocytes, myelocytes and metamyelocytes) > 1% indicates that a LEFT SHIFT is Present. MCH (RBC) [Entitic mass] 32.6 pg 27.0-32.0 [facility] Work Phone: Nucleated RBC/100 WBC (Bld) [Ratio] 0 % 0-5 [facility] Work Phone: MCHC Auto (RBC) [Mass/Vol]on 10-02-2021 MCHC (RBC) [Mass/Vol] 35.2 g/dL 32-36 [facility] Work Phone: Mucus LM Ql (Urine sed)on Mucus Ql (Urine sed) RARE /hpf [facility] Work Phone: Nitrite Test strip Ql (U)on 10-02-2021 Nitrite Ql (U) Negative Negative [facility] Work Phone: No Panel Informationon 10-02 Estimated Creatinine Clearance Calc 60.08 ml/min [facility] Work Phone: Estimated GFR (MDRD) Amer 85 mL/min >60 [facility] Work Phone: Comment on above: GFR Calc Estimated GFR (MDRD) Non-Af Amer 71 mL/min >60 [facility] Work Phone: Comment on above: Non- GFR Calc Troponin I High Sensitivity 6 pg/mL 3.0-78.0 [facility] Work Phone: Comment on above: Please Note: [place] t Units and Gender Specific Reference Ranges. For more information see Policy Stat Procedure [place] High Sensitivity Troponin (TNIH) and attachments. Platelets bldon 10-02-2021 Platelets (Bld) [#/Vol] 154 10*3/uL 150-450 [facility] Work Phone: Protein Test strip Ql (U)on 10-02-2021 Protein Ql (U) 15 mg/dl Negative [facility] Work Phone: Serum or plasma albumin farshad urement (mass/volume)on 10-02-2021 Albumin [Mass/Vol] 3.8 g/dL 3.2-5.0 [facility] Work Phone: Serum or plasma albumin/glob ulin mass ratioon 10-02-2021 Albumin/Globulin [Mass ratio] 1.2 {ratio} 0.9-2.4 [facility] Work Phone: Serum or plasma calcium farshad urement (mass/volume)on 10-02-2021 Calcium [Mass/Vol] 8.7 mg/dL 8.5-10.1 [facility] Work Phone: Serum or plasma creatinine m easurement (mass/volume)on 10-02-2021 Creatinine [Mass/Vol] 1.08 mg/dL 0.70-1.30 [facility] Work Phone: Comment on above: The validity of the calculated GFR & GFRAA in patients over 70 years has not been determined. Clinical correlation is essential. Serum or plasma urea nitroge n measurement (mass/volume)on 10-02-2021 Urea nitrogen [Mass/Vol] 25 mg/dL 7-18 [facility] Work Phone: Squamous epithelial cells de tection in urine sediment by light microscopyon 10-02-2021 Epithelial cells.squamous LM Ql (Urine sed) 0 SEEN /hpf 0-5 [facility] Work Phone: Thin prep Papanicolaou smear with manual screeningon 10-02-2021 Thin prep Papanicolaou smear with manual screening 34 U/L 15-37 [facility] Work Phone: Thin prep Papanicolaou smear with manual screening 6 5-15 [facility] Work Phone: Urine blood detectionon 09-12 RBC Ql (U) Negative Negative [facility] Work Phone: RBC Ql (U) 0 SEEN /hpf 0-5 [facility] Work Phone: Urine clarityon 10-02-2021 Clarity (U) Clear Clear [facility] Work Phone: Urine color determinationon 10-02-2021 Color (U) Yellow Yellow [facility] Work Phone: Urine glucose detectionon Glucose Ql (U) Normal mg/dl Normal [facility] Work Phone: Urine leukocyte esterase det ection by dipstickon 10-02-2021 Leukocyte esterase Test strip Ql (U) 25 /ul Negative [facility] Work Phone: Urine pHon 10-02-2021 pH (U) 6.0 [pH] 5.0 - 8.0 [facility] Work Phone: Urine sediment bacteria coun t by microscopy (number/high power field)on 10-02-2021 Bacteria LM.HPF (Urine sed) [#/Area] 0 /[HPF] None Seen [facility] Work Phone: Urine specific gravity measu rementon 10-02-2021 Specific gravity (U) [Rel density] 1.015 1.002-1.030 [facility] Work Phone: Urobilinogen Auto test strip Ql (U)on 10-02-2021 Urobilinogen Ql (U) 1 mg/dl Normal [facility] Work Phone: Basophil percentageon 2021 Chloride [Moles/Vol] 106 mmol/L 98-[address] [facility] [address] [facility] Work Phone: Glucose [Mass/Vol] 96 mg/dL 74-106 [facility] Work Phone: Potassium [Moles/Vol] 4.1 mmol/L 3.5-5.1 [facility] Work Phone: Sodium [Moles/Vol] 139 mmol/L 136-145 [facility] Work Phone: WBC (Bld) [#/Vol] 4.7 10*3/uL 4.4-11.0 [facility] Work Phone: Blood erythrocytes count (nu mber/volume)on 09-23-2021 RBC (Bld) [#/Vol] 4.10 10*6/uL 4.6-6.2 [facility] Work Phone: Blood hemoglobin measurement (mass/volume)on 09-23-2021 Hemoglobin (Bld) [Mass/Vol] 13.4 g/dL 13.0-16.5 [facility] Work Phone: Blood platelet mean volumeon 09-23-2021 Platelet mean volume (Bld) [Entitic vol] 9.5 fL 6.2-12.0 [facility] Work Phone: Determination of erythrocyte mean corpuscular volume (MCV)on 09-23-2021 MCV (RBC) [Entitic vol] 95.9 fL 80-94 [facility] Work Phone: Hematocrit Auto (Bld) [Volum e fraction]on 09-23-2021 Hematocrit (Bld) [Volume fraction] 39.3 % 40-54 [facility] Work Phone: Laboratory - Chemistry and C hemistry - challengeon 09-23-2021 CO2 [Moles/Vol] 28.0 mmol/L 21.0-32.0 [facility] Work Phone: Urea nitrogen/Creatinine [Mass ratio] 32.7 mg/mg 10-20 [facility] Work Phone: Laboratory - Hematology and Cell countson 09-23-2021 Erythrocyte distribution width (RBC) [Entitic vol] 44.1 fL 35.1-43.9 [facility] Work Phone: Erythrocyte distribution width (RBC) [Ratio] 12.7 % 11.6-14.6 [facility] Work Phone: MCH (RBC) [Entitic mass] 32.7 pg 27.0-32.0 [facility] Work Phone: MCHC Auto (RBC) [Mass/Vol]on 09-23-2021 MCHC (RBC) [Mass/Vol] 34.1 g/dL 32-36 [facility] Work Phone: No Panel Informationon 09-23 Estimated GFR (MDRD) Amer 84 mL/min >60 [facility] Work Phone: Comment on above: GFR Calc Estimated GFR (MDRD) Non-Af Amer 69 mL/min >60 [facility] Work Phone: Comment on above: Non- GFR Calc Platelets bldon 09-23-2021 Platelets (Bld) [#/Vol] 167 10*3/uL 150-450 [facility] Work Phone: Serum or plasma calcium farshad urement (mass/volume)on 09-23-2021 Calcium [Mass/Vol] 9.0 mg/dL 8.5-10.1 [facility] Work Phone: Serum or plasma creatinine m easurement (mass/volume)on 09-23-2021 Creatinine [Mass/Vol] 1.10 mg/dL 0.70-1.30 [facility] Work Phone: Comment on above: The validity of the calculated GFR & GFRAA in patients over 70 years has not been determined. Clinical correlation is essential. Serum or plasma urea nitroge n measurement (mass/volume)on 09-23-2021 Urea nitrogen [Mass/Vol] 36 mg/dL 7-18 [facility] Work Phone: Thin prep Papanicolaou smear with manual screeningon 09-23-2021 Thin prep Papanicolaou smear with manual screening 5 5-15 [facility] Work Phone: Basophil percentageon 2021 Chloride [Moles/Vol] 105 mmol/L 98-107 [facility] Work Phone: Glucose [Mass/Vol] 88 mg/dL 74-106 [facility] Work Phone: Potassium [Moles/Vol] 4.2 mmol/L 3.5-5.1 [facility] Work Phone: Sodium [Moles/Vol] 139 mmol/L 136-145 [facility] Work Phone: WBC (Bld) [#/Vol] 4.3 10*3/uL 4.4-11.0 [facility] Work Phone: Blood erythrocytes count (nu mber/volume)on 08-19-2021 RBC (Bld) [#/Vol] 4.31 10*6/uL 4.6-6.2 [facility] Work Phone: Blood hemoglobin measurement (mass/volume)on 08-19-2021 Hemoglobin (Bld) [Mass/Vol] 13.6 g/dL 13.0-16.5 [facility] Work Phone: Blood platelet mean volumeon 08-19-2021 Platelet mean volume (Bld) [Entitic vol] 9.4 fL 6.2-12.0 [facility] Work Phone: Determination of erythrocyte mean corpuscular volume (MCV)on 08-19-2021 MCV (RBC) [Entitic vol] 93.5 fL 80-94 [facility] Work Phone: Hematocrit Auto (Bld) [Volum e fraction]on 08-19-2021 Hematocrit (Bld) [Volume fraction] 40.3 % 40-54 [facility] Work Phone: Laboratory - Chemistry and C hemistry - challengeon 08-19-2021 CO2 [Moles/Vol] 31.0 mmol/L 21.0-32.0 [facility] Work Phone: Urea nitrogen/Creatinine [Mass ratio] 34.1 mg/mg 10-20 [facility] Work Phone: Laboratory - Hematology and Cell countson 08-19-2021 Erythrocyte distribution width (RBC) [Entitic vol] 43.7 fL 35.1-43.9 [facility] Work Phone: Erythrocyte distribution width (RBC) [Ratio] 12.6 % 11.6-14.6 [facility] Work Phone: MCH (RBC) [Entitic mass] 31.6 pg 27.0-32.0 [facility] Work Phone: MCHC Auto (RBC) [Mass/Vol]on 08-19-2021 MCHC (RBC) [Mass/Vol] 33.7 g/dL 32-36 [facility] Work Phone: No Panel Informationon 08-19 Estimated GFR (MDRD) Amer 94 mL/min >60 [facility] Work Phone: Comment on above: GFR Calc Estimated GFR (MDRD) Non-Af Amer 77 mL/min >60 [facility] Work Phone: Comment on above: Non- GFR Calc Platelets bldon 08-19-2021 Platelets (Bld) [#/Vol] 162 10*3/uL 150-450 [facility] Work Phone: Serum or plasma calcium farshad urement (mass/volume)on 08-19-2021 Calcium [Mass/Vol] 8.7 mg/dL 8.5-10.1 [facility] Work Phone: Serum or plasma creatinine m easurement (mass/volume)on 08-19-2021 Creatinine [Mass/Vol] 1.00 mg/dL 0.70-1.30 [facility] Work Phone: Comment on above: The validity of the calculated GFR & GFRAA in patients over 70 years has not been determined. Clinical correlation is essential. Serum or plasma urea nitroge n measurement (mass/volume)on 08-19-2021 Urea nitrogen [Mass/Vol] 34 mg/dL 7-18 [facility] Work Phone: Thin prep Papanicolaou smear with manual screeningon 08-19-2021 Thin prep Papanicolaou smear with manual screening 3 5-15 [facility] Work Phone: Basophil percentageon 2021 Chloride [Moles/Vol] 108 mmol/L 98-[address] [facility] [facility] Work Phone: Glucose [Mass/Vol] 85 mg/dL 74-106 [facility] Work Phone: Potassium [Moles/Vol] 4.3 mmol/L 3.5-5.1 [facility] Work Phone: Sodium [Moles/Vol] 141 mmol/L 136-145 [facility] Work Phone: WBC (Bld) [#/Vol] 4.4 10*3/uL 4.4-11.0 [facility] Work Phone: Blood erythrocytes count (nu mber/volume)on 07-22-2021 RBC (Bld) [#/Vol] 4.02 10*6/uL 4.6-6.2 [facility] Work Phone: Blood hemoglobin measurement (mass/volume)on 07-22-2021 Hemoglobin (Bld) [Mass/Vol] 13.1 g/dL 13.0-16.5 [facility] Work Phone: Blood platelet mean volumeon 07-22-2021 Platelet mean volume (Bld) [Entitic vol] 9.2 fL 6.2-12.0 [facility] Work Phone: Determination of erythrocyte mean corpuscular volume (MCV)on 07-22-2021 MCV (RBC) [Entitic vol] 92.8 fL 80-94 [facility] Work Phone: Hematocrit Auto (Bld) [Volum e fraction]on 07-22-2021 Hematocrit (Bld) [Volume fraction] 37.3 % 40-54 [facility] Work Phone: Laboratory - Chemistry and C hemistry - challengeon 07-22-2021 CO2 [Moles/Vol] 32.0 mmol/L 21.0-32.0 [facility] Work Phone: Urea nitrogen/Creatinine [Mass ratio] 26.4 mg/mg 10-20 [facility] Work Phone: Laboratory - Hematology and Cell countson 07-22-2021 Erythrocyte distribution width (RBC) [Entitic vol] 42.7 fL 35.1-43.9 [facility] Work Phone: Erythrocyte distribution width (RBC) [Ratio] 12.5 % 11.6-14.6 [facility] Work Phone: MCH (RBC) [Entitic mass] 32.6 pg 27.0-32.0 [facility] Work Phone: MCHC Auto (RBC) [Mass/Vol]on 07-22-2021 MCHC (RBC) [Mass/Vol] 35.1 g/dL 32-36 [facility] Work Phone: No Panel Informationon 07-22 Estimated GFR (MDRD) Amer 87 mL/min >60 [facility] Work Phone: Comment on above: GFR Calc Estimated GFR (MDRD) Non-Af Amer 72 mL/min >60 [facility] Work Phone: Comment on above: Non- GFR Calc Platelets bldon 07-22-2021 Platelets (Bld) [#/Vol] 163 10*3/uL 150-450 [facility] Work Phone: Serum or plasma calcium farshad urement (mass/volume)on 07-22-2021 Calcium [Mass/Vol] 8.9 mg/dL 8.5-10.1 [facility] Work Phone: Serum or plasma creatinine m easurement (mass/volume)on 07-22-2021 Creatinine [Mass/Vol] 1.06 mg/dL 0.70-1.30 [facility] Work Phone: Comment on above: The validity of the calculated GFR & GFRAA in patients over 70 years has not been determined. Clinical correlation is essential. Serum or plasma urea nitroge n measurement (mass/volume)on 07-22-2021 Urea nitrogen [Mass/Vol] 28 mg/dL 7-18 [facility] Work Phone: Thin prep Papanicolaou smear with manual screeningon 07-22-2021 Thin prep Papanicolaou smear with manual screening 1 5-15 [facility] Work Phone: Basophil percentageon 2021 Chloride [Moles/Vol] 106 mmol/L 98-107 [facility] Work Phone: Glucose [Mass/Vol] 80 mg/dL 74-106 [facility] Work Phone: Potassium [Moles/Vol] 4.2 mmol/L 3.5-5.1 [facility] Work Phone: Sodium [Moles/Vol] 140 mmol/L 136-145 [facility] Work Phone: WBC (Bld) [#/Vol] 4.1 10*3/uL 4.4-11.0 [facility] Work Phone: Blood erythrocytes count (nu mber/volume)on 06-24-2021 RBC (Bld) [#/Vol] 4.10 10*6/uL 4.6-6.2 [facility] Work Phone: Blood hemoglobin measurement (mass/volume)on 06-24-2021 Hemoglobin (Bld) [Mass/Vol] 13.3 g/dL 13.0-16.5 [facility] Work Phone: Blood platelet mean volumeon 06-24-2021 Platelet mean volume (Bld) [Entitic vol] 9.5 fL 6.2-12.0 [facility] Work Phone: Determination of erythrocyte mean corpuscular volume (MCV)on 06-24-2021 MCV (RBC) [Entitic vol] 93.4 fL 80-94 [facility] Work Phone: Hematocrit Auto (Bld) [Volum e fraction]on 06-24-2021 Hematocrit (Bld) [Volume fraction] 38.3 % 40-54 [facility] Work Phone: Laboratory - Chemistry and C hemistry - challengeon 06-24-2021 CO2 [Moles/Vol] 33.0 mmol/L 21.0-32.0 [facility] Work Phone: Urea nitrogen/Creatinine [Mass ratio] 32.4 mg/mg 10-20 [facility] Work Phone: Laboratory - Hematology and Cell countson 06-24-2021 Erythrocyte distribution width (RBC) [Entitic vol] 43.4 fL 35.1-43.9 [facility] Work Phone: Erythrocyte distribution width (RBC) [Ratio] 12.5 % 11.6-14.6 [facility] Work Phone: MCH (RBC) [Entitic mass] 32.4 pg 27.0-32.0 [facility] Work Phone: MCHC Auto (RBC) [Mass/Vol]on 06-24-2021 MCHC (RBC) [Mass/Vol] 34.7 g/dL 32-36 [facility] Work Phone: No Panel Informationon 06-24 Estimated GFR (MDRD) Amer 102 mL/min >60 [facility] Work Phone: Comment on above: GFR Calc Estimated GFR (MDRD) Non-Af Amer 84 mL/min >60 [facility] Work Phone: Comment on above: Non- GFR Calc Platelets bldon 06-24-2021 Platelets (Bld) [#/Vol] 149 10*3/uL 150-450 [facility] Work Phone: Serum or plasma calcium farshad urement (mass/volume)on 06-24-2021 Calcium [Mass/Vol] 8.6 mg/dL 8.5-10.1 [facility] Work Phone: Serum or plasma creatinine m easurement (mass/volume)on 06-24-2021 Creatinine [Mass/Vol] 0.93 mg/dL 0.70-1.30 [facility] Work Phone: Comment on above: The validity of the calculated GFR & GFRAA in patients over 70 years has not been determined. Clinical correlation is essential. Serum or plasma urea nitroge n measurement (mass/volume)on 06-24-2021 Urea nitrogen [Mass/Vol] 30 mg/dL 7-18 [facility] Work Phone: Thin prep Papanicolaou smear with manual screeningon 06-24-2021 Thin prep Papanicolaou smear with manual screening 1 5-15 [facility] Work Phone: Basophil percentageon 2021 Chloride [Moles/Vol] 105 mmol/L 98-107 [facility] Work Phone: Glucose [Mass/Vol] 93 mg/dL 74-106 [facility] Work Phone: Potassium [Moles/Vol] 4.4 mmol/L 3.5-5.1 [facility] [facility] Work Phone: Sodium [Moles/Vol] 140 mmol/L 136-145 [facility] Work Phone: WBC (Bld) [#/Vol] 4.8 10*3/uL 4.4-11.0 [facility] Work Phone: Blood erythrocytes count (nu mber/volume)on 05-27-2021 RBC (Bld) [#/Vol] 4.04 10*6/uL 4.6-6.2 [facility] Work Phone: Blood hemoglobin measurement (mass/volume)on 05-27-2021 Hemoglobin (Bld) [Mass/Vol] 13.0 g/dL 13.0-16.5 [facility] Work Phone: Blood platelet mean volumeon 05-27-2021 Platelet mean volume (Bld) [Entitic vol] 9.5 fL 6.2-12.0 [facility] Work Phone: Determination of erythrocyte mean corpuscular volume (MCV)on 05-27-2021 MCV (RBC) [Entitic vol] 94.1 fL 80-94 [facility] Work Phone: Hematocrit Auto (Bld) [Volum e fraction]on 05-27-2021 Hematocrit (Bld) [Volume fraction] 38.0 % 40-54 [facility] Work Phone: Laboratory - Chemistry and C hemistry - challengeon 05-27-2021 CO2 [Moles/Vol] 31.0 mmol/L 21.0-32.0 [facility] Work Phone: Urea nitrogen/Creatinine [Mass ratio] 25.2 mg/mg 10-20 [facility] Work Phone: Laboratory - Hematology and Cell countson 05-27-2021 Erythrocyte distribution width (RBC) [Entitic vol] 43.4 fL 35.1-43.9 [facility] Work Phone: Erythrocyte distribution width (RBC) [Ratio] 12.5 % 11.6-14.6 [facility] Work Phone: MCH (RBC) [Entitic mass] 32.2 pg 27.0-32.0 [facility] Work Phone: MCHC Auto (RBC) [Mass/Vol]on 05-27-2021 MCHC (RBC) [Mass/Vol] 34.2 g/dL 32-36 [facility] Work Phone: No Panel Informationon 05-27 Estimated GFR (MDRD) Amer 90 mL/min >60 [facility] Work Phone: Comment on above: GFR Calc Estimated GFR (MDRD) Non-Af Amer 75 mL/min >60 [facility] Work Phone: Comment on above: Non- GFR Calc Platelets bldon 05-27-2021 Platelets (Bld) [#/Vol] 157 10*3/uL 150-450 [facility] Work Phone: Serum or plasma calcium farshad urement (mass/volume)on 05-27-2021 Calcium [Mass/Vol] 8.9 mg/dL 8.5-10.1 [facility] Work Phone: Serum or plasma creatinine m easurement (mass/volume)on 05-27-2021 Creatinine [Mass/Vol] 1.03 mg/dL 0.70-1.30 [facility] Work Phone: Comment on above: The validity of the calculated GFR & GFRAA in patients over 70 years has not been determined. Clinical correlation is essential. Serum or plasma urea nitroge n measurement (mass/volume)on 05-27-2021 Urea nitrogen [Mass/Vol] 26 mg/dL 7-18 [facility] Work Phone: Thin prep Papanicolaou smear with manual screeningon 05-27-2021 Thin prep Papanicolaou smear with manual screening 4 5-15 [facility] Work Phone: [facility] Surgical Pathology Depar tmenton 12-21-2020 [facility] Surgical Pathology Department Name IGOR CRUZ Pathologist: JAYSHREE BRITTON DMD Date of Procedure: 12/21/2020 Date Received: 12/24/2020 Date Reported 12/27/2020 Submitting Physician: MARJAN SOSA DMD Location: [facility] Other External # FINAL DIAGNOSIS A: FRONT AND RIGHT LATERAL BORDER OF TONGUE, EXCISION: -- TRAUMATIC FIBROMAS ICD-10/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 [facility] rcc/12/24/2020 [facility] Department of Pathology [address] [place] [address] Normal [facility] Comment on above: Performed By: #### U HCS #### [facility] Surgical Pathology Department [address] [id number] CURon 08-12-2019 CUR . MICRO - Microbiology [...] Locations *1: This test was performed at: [address], [address] [place] [address] ([place]) Comment on above: Performed By: #### C BC, ADIFF, ANEU #### [address] [address] #### TROP, BMP, TSH, GFR #### [address] [address] .GFRon 08-10-2019 GFR 43 ml/min/1.73sqm [facility] ([place]) Comment on above: Result Comment: GFR Population [...] meters Performed By: #### B MP, GFR ####[address] [address] GFR Non- 35 ml/min/1.73sqm Normal [facility] ([place]) Comment on above: Result Comment: GFR Population [...] meters Performed By: #### B MP, GFR ####[address] [address] BMPon 08-10-2019 Calcium [Mass/Vol] 9.1 mg/dL Normal 8.4-10.2 [facility] ([place]) Comment on above: Performed By: #### B MP, GFR ####[address] [address] Chloride [Moles/Vol] 105 mmol/L Normal 98-107 [facility] ([place]) Comment on above: Performed By: #### B MP, GFR ####[place] [address] [place] [address] CO2 [Moles/Vol] 33 mmol/L High 23-31 [facility] ([place]) Comment on above: Performed By: #### B MP, GFR ####[place] [address] [place] [address] Creatinine [Mass/Vol] 1.88 mg/dL High 0.70-1.30 [facility] ([place]) Comment on above: Performed By: #### B MP, GFR ####[address] [address] Electrolyte Balance 5.0 mEq/L Normal [facility] ([place]) Comment on above: Performed By: #### B MP, GFR ####[address] [address] Glucose [Mass/Vol] 83 mg/dL Normal 83-110 [facility] ([place]) Comment on above: Performed By: #### B MP, GFR ####[address] [address] Potassium [Moles/Vol] 4.1 mmol/L Normal 3.5-5.1 [facility] ([place]) Comment on above: Performed By: #### B MP, GFR ####[address] [address] Sodium [Moles/Vol] 143 mmol/L Normal 136-145 [facility] ([place]) Comment on above: Performed By: #### B MP, GFR ####[address] [address] Urea nitrogen [Mass/Vol] 38 mg/dL High 7-18 [facility] ([place]) Comment on above: Performed By: #### B MP, GFR ####[address] [address] Urea nitrogen/Creatinine [Mass ratio] 20 ratio Normal 7-27 [facility] ([place]) Comment on above: Performed By: #### B MP, GFR ####[address] [address] UAon 08-10-2019 Color (U) Yellow Normal [facility] ([place]) Comment on above: Performed By: #### C BC, ADIFF, ANEU #### [place] [address] [address] #### TROP, BMP, TSH, GFR #### [address] [address] Glucose (U) [Mass/Vol] Negative Normal Negative [facility] ([place]) Comment on above: Performed By: #### C BC, ADIFF, ANEU #### [address] [address] #### TROP, BMP, TSH, GFR #### [address] [address] Ketones Ql (U) Negative Normal Negative [facility] ([place]) Comment on above: Performed By: #### C BC, ADIFF, ANEU #### [place] [address] #### TROP, BMP, TSH, GFR #### [place] [address] UA Appear Clear Normal Clear [facility] ([place]) Comment on above: Performed By: #### C BC, ADIFF, ANEU #### [place] [address] #### TROP, BMP, TSH, GFR #### [place] [address] UA Blood Trace Abnormal Negative [facility] ([place]) Comment on above: Performed By: #### C BC, ADIFF, ANEU #### [address] [address] #### TROP, BMP, TSH, GFR #### [place] [address] UA Leuk Est Negative Normal Negative [facility] ([place]) Comment on above: Performed By: #### C BC, ADIFF, ANEU #### [place] [address] #### TROP, BMP, TSH, GFR #### [place] [address] UA Nitrite Negative Normal Negative [facility] ([place]) Comment on above: Performed By: #### C BC, ADIFF, ANEU #### [place] [address] #### TROP, BMP, TSH, GFR #### [place] [address] UA pH 7.0 Normal 5.0 - 8.0 [facility] ([place]) Comment on above: Performed By: #### C BC, ADIFF, ANEU #### [address] [address] #### TROP, BMP, TSH, GFR #### [address] [address] UA Protein Negative Normal Negative [facility] ([place]) Comment on above: Performed By: #### C BC, ADIFF, ANEU #### [place] [address] #### TROP, BMP, TSH, GFR #### [place] [address] UA Spec Grav 1.020 Normal 1.015-1.025 [facility] ([place]) Comment on above: Performed By: #### C BC, ADIFF, ANEU #### [place] [address] #### TROP, BMP, TSH, GFR #### [place] [address] UA Specimen Type Clean Catch Normal [facility] ([place]) Comment on above: Performed By: #### C BC, ADIFF, ANEU #### [place] [address] #### TROP, BMP, TSH, GFR #### [place] [address] UA Urobilinogen 0.2 E.U./dL Normal 0.2-1.0 [facility] ([place]) Comment on above: Performed By: #### C BC, ADIFF, ANEU #### [place] [address] #### TROP, BMP, TSH, GFR #### [place] [address] Urobilinogen Qn (U) Negative Normal Negative [facility] ([place]) Comment on above: Performed By: #### C BC, ADIFF, ANEU #### [place] [address] #### TROP, BMP, TSH, GFR #### [address] [address] .Auto Diffon 08-09-2019 Ammonia (P) [Mass/Vol] 0.40 10 3/mcL Normal 0.15-1.00 [facility] ([place]) Comment on above: Performed By: #### C BC, ADIFF, ANEU #### [address] [address] #### TROP, BMP, TSH, GFR #### [address] [address] Basophils (Bld) [#/Vol] 0.00 10 3/mcL Normal 0.00-0.19 [facility] ([place]) Comment on above: Performed By: #### C BC, ADIFF, ANEU #### [place] [address] #### TROP, BMP, TSH, GFR #### [address] [address] Basophils/100 WBC (Bld) 1.0 % Normal 0.0-2.5 A [facility] ([place]) Comment on above: Performed By: #### C BC, ADIFF, ANEU #### [place] [address] #### TROP, BMP, TSH, GFR #### [address] [address] Eosinophils (Bld) [#/Vol] 0.10 10 3/mcL Normal 0.00-0.40 [facility] ([place]) Comment on above: Performed By: #### C BC, ADIFF, ANEU #### [place] [address] #### TROP, BMP, TSH, GFR #### [address] [address] Eosinophils/100 WBC (Bld) 1.3 % Normal 0.0-7.0 [facility] ([place]) Comment on above: Performed By: #### C BC, ADIFF, ANEU #### [place] [address] #### TROP, BMP, TSH, GFR #### [address] [address] Lymphocytes (Bld) [#/Vol] 0.80 10 3/mcL Normal 0.77-3.85 [facility] ([place]) Comment on above: Performed By: #### C BC, ADIFF, ANEU #### [address] [address] #### TROP, BMP, TSH, GFR #### [address] [address] Lymphocytes/100 WBC (Bld) 15.3 % Normal 10.0-50.0 [facility] ([place]) Comment on above: Performed By: #### C BC, ADIFF, ANEU #### [address] [address] #### TROP, BMP, TSH, GFR #### [address] [address] Monocytes/100 WBC (Bld) 8.0 % Normal 1.7-13.0 A [facility] ([place]) Comment on above: Performed By: #### C BC, ADIFF, ANEU #### [address] [address] #### TROP, BMP, TSH, GFR #### [address] [address] Neutrophils/100 WBC (Bld) 74.4 % Normal 37.0-80.0 [facility] ([place]) Comment on above: Performed By: #### C BC, ADIFF, ANEU #### [place] [address] #### TROP, BMP, TSH, GFR #### [address] [address] .GFRon 08-09-2019 GFR 39 ml/min/1.73sqm Normal [facility] ([place]) Comment on above: Result Comment: GFR [...] #### B MP, MG, GFR, VIDH, B12 ####[address] [address] GFR Non- 32 ml/min/1.73sqm Normal [facility] ([place]) Comment on above: Result Comment: GFR Population [...] #### B MP, MG, GFR, VIDH, B12 ####[address] [address] GFR Non- 31 ml/min/1.73sqm Normal [facility] ([place]) Comment on above: Result Comment: GFR Population [...] By: #### C BC, ADIFF, ANEU #### [address] [address] #### TROP, BMP, TSH, GFR #### [address] [address] GFR 37 ml/min/1.73sqm Normal [facility] ([place]) Comment on above: Result Comment: GFR Population [...] By: #### C BC, ADIFF, ANEU #### [address] [address] #### TROP, BMP, TSH, GFR #### [address] [address] .NEUABSon 08-09-2019 Neutrophils (Bld) [#/Vol] 3.80 10 3/mcL Normal 2.85-6.16 [facility] ([place]) Comment on above: Performed By: #### C BC, ADIFF, ANEU #### [address] [address] #### TROP, BMP, TSH, GFR #### [address] [address] .Urinalysis Microscopic (AO) on 08-09-2019 RBC (U) [#/Vol] 0-5 Abnormal None Seen [facility] ([place]) Comment on above: Performed By: #### U A, UAMICAO ####[address] [address] UA Squam Epithelial None Seen Normal None Seen [facility] ([place]) Comment on above: Performed By: #### U A, UAMICAO ####[place] [address] UA WBC 0-5 Abnormal None Seen [facility] ([place]) Comment on above: Performed By: #### U A, UAMICAO ####[place] [address] B12on 08-09-2019 Cobalamin (Vitamin B12) [Mass/Vol] 336 pg/mL Normal 211-911 [facility] ([place]) Comment on above: Performed By: #### B MP, MG, GFR, VIDH, B12 ####[place] [address] BMPon 08-09-2019 Calcium [Mass/Vol] 8.7 mg/dL Normal 8.4-10.2 [facility] ([place]) Comment on above: Performed By: #### B MP, MG, GFR, VIDH, B12 ####[place] [address] Chloride [Moles/Vol] 106 mmol/L Normal 98-107 [facility] ([place]) Comment on above: Performed By: #### B MP, MG, GFR, VIDH, B12 ####[place] [address] CO2 [Moles/Vol] 32 mmol/L High 23-31 [facility] ([place]) Comment on above: Performed By: #### B MP, MG, GFR, VIDH, B12 ####[place] [address] Creatinine [Mass/Vol] 2.03 mg/dL High 0.70-1.30 [facility] ([place]) Comment on above: Performed By: #### B MP, MG, GFR, VIDH, B12 ####[place] [address] Electrolyte Balance 3.0 mEq/L Normal [facility] ([place]) Comment on above: Performed By: #### B MP, MG, GFR, VIDH, B12 ####[address] [address] Glucose [Mass/Vol] 91 mg/dL Normal 83-110 [facility] ([place]) Comment on above: Performed By: #### B MP, MG, GFR, VIDH, B12 ####[address] [address] Potassium [Moles/Vol] 4.5 mmol/L Normal 3.5-5.1 [facility] ([place]) Comment on above: Performed By: #### B MP, MG, GFR, VIDH, B12 ####[address] [address] Sodium [Moles/Vol] 141 mmol/L Normal 136-145 [facility] ([place]) Comment on above: Performed By: #### B MP, MG, GFR, VIDH, B12 ####[address] [address] Urea nitrogen [Mass/Vol] 46 mg/dL High 7-18 [facility] ([place]) Comment on above: Performed By: #### B MP, MG, GFR, VIDH, B12 ####[address] [address] Urea nitrogen/Creatinine [Mass ratio] 23 ratio Normal 7-27 [facility] ([place]) Comment on above: Performed By: #### B MP, MG, GFR, VIDH, B12 ####[address] [address] Calcium [Mass/Vol] 9.6 mg/dL Normal 8.4-10.2 [facility] ([place]) Comment on above: Performed By: #### C BC, ADIFF, ANEU #### [address] [address] #### TROP, BMP, TSH, GFR #### [address] [address] Chloride [Moles/Vol] 104 mmol/L Normal 98-107 [facility] ([place]) Comment on above: Performed By: #### C BC, ADIFF, ANEU #### [address] [address] #### TROP, BMP, TSH, GFR #### [address] [address] CO2 [Moles/Vol] 29 mmol/L Normal 23-31 [facility] ([place]) Comment on above: Performed By: #### C BC, ADIFF, ANEU #### [address] [address] #### TROP, BMP, TSH, GFR #### [address] [address] Creatinine [Mass/Vol] 2.12 mg/dL High 0.70-1.30 [facility] ([place]) Comment on above: Performed By: #### C BC, ADIFF, ANEU #### [place] [address] #### TROP, BMP, TSH, GFR #### [address] [address] Electrolyte Balance 8.0 mEq/L Normal [facility] ([place]) Comment on above: Performed By: #### C BC, ADIFF, ANEU #### [address] [address] #### TROP, BMP, TSH, GFR #### [address] [address] Glucose [Mass/Vol] 92 mg/dL Normal 83-110 [facility] ([place]) Comment on above: Performed By: #### C BC, ADIFF, ANEU #### [address] [address] #### TROP, BMP, TSH, GFR #### [address] [address] Potassium [Moles/Vol] 4.2 mmol/L Normal 3.5-5.1 [facility] ([place]) Comment on above: Performed By: #### C BC, ADIFF, ANEU #### [place] [id number] #### TROP, BMP, TSH, GFR #### [address] [address] Sodium [Moles/Vol] 141 mmol/L Normal 136-145 [facility] ([place]) Comment on above: Performed By: #### C BC, ADIFF, ANEU #### [address] [address] #### TROP, BMP, TSH, GFR #### [address] [address] Urea nitrogen [Mass/Vol] 47 mg/dL High 7-18 [facility] ([place]) Comment on above: Performed By: #### C BC, ADIFF, ANEU #### [address] [address] #### TROP, BMP, TSH, GFR #### [address] [address] Urea nitrogen/Creatinine [Mass ratio] 22 ratio Normal - [facility] ([place]) Comment on above: Performed By: #### C BC, ADIFF, ANEU #### [address] [address] #### TROP, BMP, TSH, GFR #### [address] [address] CBCon 08-09-2019 Erythrocyte distribution width (RBC) [Ratio] 13.0 % Normal 11.5-14.5 [facility] ([place]) Comment on above: Performed By: #### C BC, ADIFF, ANEU #### [place] [address] #### TROP, BMP, TSH, GFR #### [address] [address] Hematocrit (Bld) [Volume fraction] 41.5 % Low 42.0-52.0 [facility] ([place]) Comment on above: Performed By: #### C BC, ADIFF, ANEU #### [address] [address] #### TROP, BMP, TSH, GFR #### [address] [address] Hemoglobin (Bld) [Mass/Vol] 14.4 G/dL Normal 14.0-18.0 [facility] ([place]) Comment on above: Performed By: #### C CLARA MON, ANEU #### [place] [address] #### TROP, BMP, TSH, GFR #### [address] [address] MCH (RBC) [Entitic mass] 31.6 pg High 27.0-31.2 [facility] ([place]) Comment on above: Performed By: #### C YAA, CLARA, ANEU #### [place] [address] #### TROP, BMP, TSH, GFR #### [place] [address] MCHC (RBC) [Mass/Vol] 34.7 G/dL Normal 31.8-35.4 [facility] ([place]) Comment on above: Performed By: #### C YAA, ADIFF, ANEU #### [place] [address] #### TROP, BMP, TSH, GFR #### [place] [address] MCV (RBC) [Entitic vol] 91.0 fL Normal 80.0-94.0 A [facility] ([place]) Comment on above: Performed By: #### C AMALIA MONIFF, ANEU #### [place] [address] #### TROP, BMP, TSH, GFR #### [address] [address] Platelet mean volume (Bld) [Entitic vol] 7.6 fL Normal 7.4-10.4 [facility] ([place]) Comment on above: Performed By: #### C BC, ADIFF, ANEU #### [place] [address] #### TROP, BMP, TSH, GFR #### [facility] [address] [place], [place] [address] Platelets (Bld) [#/Vol] 168 10 3/mcL Normal 130-400 [facility] ([place]) Comment on above: Performed By: #### C BC, ADIFF, ANEU #### [address] [address] #### TROP, BMP, TSH, GFR #### [address] [address] RBC (Bld) [#/Vol] 4.56 10 6/mcL Normal 4.04-6.13 [facility] ([place]) Comment on above: Performed By: #### C BC, ADIFF, ANEU #### [address] [address] #### TROP, BMP, TSH, GFR #### [address] [address] WBC (Bld) [#/Vol] 5.10 10 3/mcL Normal 4.60-10.80 [facility] ([place]) Comment on above: Performed By: #### C BC, ADIFF, ANEU #### [address] [address] #### TROP, BMP, TSH, GFR #### [address] [address] [address] HEAD OR BRAIN W/O CONTRAS Ton [...] Date: 08/09/2019 12:01:05 AM Ordering Provider:Robert Adame [facility] ([place]) MGon 08-09-2019 Magnesium [Mass/Vol] 1.8 mg/dL Normal 1.8-2.4 [facility]) Comment on above: Performed By: #### B MP, MG, GFR, VIDH, B12 ####[place] [address] [place] [address] TROPon 08-09-2019 Troponin I.cardiac [Mass/Vol] ng/mL Normal 0.000-0.040 [facility]) Comment on above: Result Comment: Trop onin I reference range: 0.00-0.040 ng/mL Negative and non-diagnostic. >0.040 ng/mL Consistent with cardiac damage, increased clinical risk and possibility of myocardial infarction. Serial measurements, a rise & fall in test results, clinical history, appropriate symptoms and/or ECG changes may help assess possibility of PA. *Other non-acute coronary syndrome conditions such as CHF, myocarditis, pulmonary emboli, sepsis and cardiac surgery could result in myocardial damage and increased troponin levels. Performed By: #### C BC, ADIFF, ANEU #### [place] [address] #### TROP, BMP, TSH, GFR #### [facility] [address] [place] [address] TSHon 08-09-2019 TSH Qn 1.72 mcIU/mL Normal 0.36-3.74 [facility] ([place]) Comment on above: Performed By: #### C BC, ADIFF, ANEU #### [address] [address] #### TROP, BMP, TSH, GFR #### [address] [address] UAon 08-09-2019 Color (U) Yellow Normal [facility] ([place]) Comment on above: Performed By: #### U A, UAMICAO ####[place] [address] Glucose (U) [Mass/Vol] Negative Normal Negative [facility] ([place]) Comment on above: Performed By: #### U A, UAMICAO ####[place] [address] Ketones Ql (U) Trace Abnormal Negative [facility] ([place]) Comment on above: Performed By: #### U A, UAMICAO ####[place] [address] UA Appear Clear Normal Clear [facility] ([place]) Comment on above: Performed By: #### U A, UAMICAO ####[place] [address] UA Blood Small Abnormal Negative [facility] ([place]) Comment on above: Performed By: #### U A, UAMICAO ####[address] [address] UA Leuk Est Trace Abnormal Negative [facility] ([place]) Comment on above: Performed By: #### U A, UAMICAO ####[place] [address] UA Nitrite Negative Normal Negative [facility] ([place]) Comment on above: Performed By: #### U A, UAMICAO ####[place] [address] UA pH 5.0 Normal 5.0 - 8.0 [facility] ([place]) Comment on above: Performed By: #### U A, UAMICAO ####[place] [address] UA Protein Negative Normal Negative [facility] ([place]) Comment on above: Performed By: #### U A, UAMICAO ####[place] [address] UA Spec Grav 1.025 Normal 1.015-1.025 [facility] ([place]) Comment on above: Performed By: #### U A, UAMICAO ####[place] [address] UA Specimen Type Clean Catch Normal [facility] ([place]) Comment on above: Performed By: #### U A, UAMICAO ####[place] [address] UA Urobilinogen 0.2 E.U./dL Normal 0.2-1.0 [facility] ([place]) Comment on above: Performed By: #### U A, UAMICAO ####[place] [address] Urobilinogen Qn (U) Negative Normal Negative [facility] ([place]) Comment on above: Performed By: #### U A, UAMICAO ####[place] [address] VIDHon 08-09-2019 Vit. D 25-Hydroxy 118 ng/mL Normal [facility] ([place]) Comment on above: Result Comment: Inte rpretive Values Based on Total 25(OH)D: Severe Deficiency <20 ng/mL Mild to Moderate Deficiency 20-30 ng/mL Optimum Levels 30-100 ng/mL Toxicity Possible >100 ng/mL Performed By: #### B MP, MG, GFR, VIDH, B12 ####[place] [address] XR CHEST 1 VIEWon 08-09-2019 XR CHEST [...] Date: 08/08/2019 11:57:53 PM Ordering Provider:Robert Adame [facility] ([place]) US GROIN LEFTon 08-29-2018 US GROIN LEFT [...] 3:00:36 PM Sign Date: 08/29/2018 3:01:42 PM [facility] ([place]) XR RIBS 2 VIEWS RIGHT/PA [place] ST(AO)on [...] 4:30:13 PM Sign Date: 08/29/2018 4:30:51 PM [facility] ([place]) Vital Signs Date Time Vital Sign Value Performing Clinician Cally jones 11-26-2024 16:12-0400 Body height 180.[address] Guilherme Butt MD Work Phone: [facility] 10-08-2024 14:25-0400 Body height 180.[address] Guilherme Butt MD Work Phone: [facility] 10-08-2024 14:25-0400 Body mass index (BMI) [Ratio] 25.7 kg/m2 Dr. Guilherme Butt MD Work Phone: [facility] 10-08-2024 14:25-0400 Body weight 83.[address] Guilherme Butt MD Work Phone: [facility] 10-08-2024 14:25-0400 Diastolic blood pressure 66 mm[Hg] Dr. Guilherme Butt MD Work Phone: [facility] 10-08-2024 14:25-0400 Heart rate 80 /min Dr. Guilherme Butt MD Work Phone: [facility] 10-08-2024 14:25-0400 Respiratory rate 18 /min Dr. Guilherme Butt MD Work Phone: [facility] 10-08-2024 14:25-0400 Systolic blood pressure 96 mm[Hg] Dr. Guilherme Butt MD Work Phone: [facility] 03-12-2023 13:59-0400 Body height 180.[address] Guilherme Butt Work Phone: [facility] 02-12-2023 16:01-0400 Diastolic blood pressure 76 mm[Hg] Dr. Guilherme Butt Work Phone: [facility] 02-12-2023 16:01-0400 Systolic blood pressure 131 mm[Hg] Dr. Guilherme Butt Work Phone: [facility] 02-12-2023 14:24-0400 Body temperature 97.8 [degF] Dr. Guilherme Butt Work Phone: [facility] 02-12-2023 14:24-0400 Heart rate 68 /min Dr. Guilherme Butt Work Phone: [facility] 02-12-2023 14:24-0400 Respiratory rate 18 /min Dr. Guilherme Butt Work Phone: [facility] 02-12-2023 14:24-0400 SaO2% (BldA) [Mass fraction] 93 % Dr. Guilherme Butt Work Phone: [facility] 02-12-2023 14:00-0400 Inhaled oxygen flow rate 3 L/min Dr. Guilherme Butt Work Phone: [facility] 02-12-2023 09:26-0400 Body height 180.[address] Guilherme Butt Work Phone: [facility] 02-12-2023 09:26-0400 Body mass index (BMI) [Ratio] 25.4 kg/m2 Dr. Guilherme Butt Work Phone: [facility] 02-12-2023 09:26-0400 Body weight 82.[address] Guilherme Butt Work Phone: [facility] 01-11-2023 14:37-0400 Body mass index (BMI) [Ratio] 24.9 kg/m2 Dr. Guilherme Butt Work Phone: [facility] 01-11-2023 14:37-0400 Body weight 83.[address] Guilherme Butt Work Phone: [facility] 01-11-2023 14:37-0400 Diastolic blood pressure 85 mm[Hg] Dr. Guilherme Butt Work Phone: [facility] 01-11-2023 14:37-0400 Respiratory rate 16 /min Dr. Guilherme Butt Work Phone: [facility] 01-11-2023 14:37-0400 Systolic blood pressure 130 mm[Hg] Dr. Guilherme Butt Work Phone: [facility] 09-04-2022 10:58-0400 Body height 182.[address] Guilherme Butt Work Phone: [facility] 09-04-2022 10:58-0400 Body mass index (BMI) [Ratio] 24.7 kg/m2 Dr. Guilherme Butt Work Phone: [facility] 09-04-2022 10:58-0400 Body weight 82.[address] Guilherme Butt Work Phone: [facility] 09-04-2022 10:58-0400 Diastolic blood pressure 48 mm[Hg] Dr. Guilherme Butt Work Phone: [facility] 09-04-2022 10:58-0400 Heart rate 84 /min Dr. Guilherme Butt Work Phone: [facility] 09-04-2022 10:58-0400 Respiratory rate 16 /min Dr. Guilherme Butt Work Phone: [facility] 09-04-2022 10:58-0400 Systolic blood pressure 80 mm[Hg] Dr. Guilherme Butt Work Phone: [facility] 08-02-2022 07:41-0400 Diastolic blood pressure 79 mm[Hg] Dr. Guilherme Butt Work Phone: [facility] 08-02-2022 07:41-0400 Heart rate 71 /min Dr. Guilherme Butt Work Phone: [facility] 08-02-2022 07:41-0400 Respiratory rate 16 /min Dr. Guilherme Butt Work Phone: [facility] 08-02-2022 07:41-0400 SaO2% (BldA) [Mass fraction] 97 % Dr. Guilherme Butt Work Phone: [facility] 08-02-2022 07:41-0400 Systolic blood pressure 114 mm[Hg] Dr. Guilherme Butt Work Phone: [facility] 08-02-2022 07:08-0400 Body height 182.[address] Guilherme Butt Work Phone: [facility] 08-02-2022 07:08-0400 Body mass index (BMI) [Ratio] 25.2 kg/m2 Dr. Guilherme Butt Work Phone: [facility] 08-02-2022 07:08-0400 Body temperature 98 [degF] Dr. Guilherme Butt Work Phone: [facility] 08-02-2022 07:08-0400 Body weight 84.[address] Guilherme Butt Work Phone: [facility] 05-22-2022 13:15-0500 Body height 182.[address] Guilherme Butt Work Phone: [facility] 04-03-2022 15:00-0500 Diastolic blood pressure 73 mm[Hg] Dr. Guilherme Butt Work Phone: [facility] 04-03-2022 15:00-0500 Heart rate 58 /min Dr. Guilherme Butt Work Phone: [facility] 04-03-2022 15:00-0500 Respiratory rate 15 /min Dr. Guilherme Butt Work Phone: [facility] 04-03-2022 15:00-0500 SaO2% (BldA) [Mass fraction] 95 % Dr. Guilherme Butt Work Phone: [facility] 04-03-2022 15:00-0500 Systolic blood pressure 138 mm[Hg] Dr. Guilherme Butt Work Phone: [facility] 04-03-2022 13:00-0500 Body temperature 97.8 [degF] Dr. Guilherme Butt Work Phone: [facility] 04-03-2022 10:08-0500 Body mass index (BMI) [Ratio] 24.9 kg/m2 Dr. Guilherme Butt Work Phone: [facility] 04-03-2022 10:08-0500 Body weight 83.[address] Guilherme Butt Work Phone: [facility] 10-03-2021 00:46-0400 Diastolic blood pressure 80 mm[Hg] TIFFANY Gray [facility] Work Phone: 10-03-2021 00:46-0400 Heart rate 91 /min TIFFANY Gray [facility] Work Phone: 10-03-2021 00:46-0400 Respiratory rate 16 /min TIFFANY Gray [facility] Work Phone: 10-03-2021 00:46-0400 SaO2% (BldA) [Mass fraction] 95 % AXEL-Devan Gray [facility] Work Phone: 10-03-2021 00:46-0400 Systolic blood pressure 160 mm[Hg] AXEL-Devan Gray [facility] Work Phone: 10-02-2021 20:20-0400 Body height 177.8 cm TIFFANY Gray [facility] Work Phone: 10-02-2021 20:20-0400 Body mass index (BMI) [Ratio] 27.8 kg/m2 TIFFANY Gray [facility] Work Phone: 10-02-2021 20:20-0400 Body temperature 98.7 [degF] TIFFANY Gray [facility] Work Phone: 10-02-2021 20:20-0400 Body weight 88 kg 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 Jessica LEVIN -[facility] Start: 12-12-2024 End: 12-12-[address] Guilherme Butt MD Work Phone: -[facility] Services Start: 12-12-2024 End: 12-12-[address] Dwain Yen MD -[facility] Work Phone: Start: 12-12-2024 End: 12-12-2024 ambulatory Guilherme Butt Facility:[facility] Start: 11-21-2024 ambulatory Guilherme SHI Fa cility:[facility] Start: 11-21-2024 Registered Referred Guilherme Butt MD -[facility] Start: 10-24-2024 ambulatory Cecy SHI Fac ility:[facility] Start: 10-24-2024 Registered Referred Cecy Gray NP-C -[facility] Start: 10-16-2024 End: 10-16-[address] Guilherme Butt MD Work Phone: -[facility] Start: 10-16-2024 End: 10-16-2024 Patient encounter procedure Camilo AGRAWAL -[facility] Work Phone: Start: 10-08-2024 End: 10-08-[address] Dwain Yen MD -[facility] Work Phone: Start: 10-08-2024 End: 10-08-[address] Guilherme Butt MD Work Phone: [facility] Work Phone: Start: 09-23-2024 End: 09-23-[address] Guilherme Butt MD Work Phone: [facility] Start: 09-23-2024 End: 09-23-[address] Guilherme Butt MD -[facility] Work Phone: Start: 09-19-2024 End: 09-19-[address] Guilherme Butt MD Work Phone: [facility] Work Phone: Start: 09-19-2024 End: 09-19-2024 Departed Referred Guilherme Butt MD -[facility] Start: 09-19-2024 Registered Referred Guilherme Butt MD -[facility] Start: 09-19-2024 End: 09-19-2024 ambulatory Guilherme Butt Facility:[facility] Start: 08-22-2024 End: 08-22-[address] Guilherme Butt MD Work Phone: [facility] Work Phone: Start: 08-22-2024 End: 08-22-2024 Departed Referred Cecy ALLEN -[facility] Start: 08-22-2024 End: 08-22-2024 ambulatory Cecy Gray [facility] Facility:[facility] Start: 08-12-2024 End: 08-12-[address] Guilherme Butt MD Work Phone: [facility] Work Phone: Start: 08-12-2024 End: 08-12-2024 Patient encounter procedure Cecy ALLEN [facility] Work Phone: Start: 07-29-2024 End: 07-29-2024 ambulatory Guilherme Butt Facility:[facility] Start: 07-29-2024 End: 07-29-[address] Guilherme Butt MD -[facility] Work Phone: Start: 07-25-2024 End: 07-25-[address] Guilherme Butt MD Work Phone: [facility] Work Phone: Start: 07-25-2024 End: 07-25-2024 [facility] Start: 07-25-2024 End: 07-25-2024 ambulatory Efewongbe Oleghe Facility:[facility] Start: 07-03-2024 End: 07-03-2024 ambulatory Efewongbe Oleghe Facility:[facility] Start: 07-03-2024 End: 07-03-2024 Patient encounter procedure Camilo AGRAWAL -[facility] Work Phone: Start: 06-27-2024 ambulatory Efewongbe Oleghe Facili ty:[facility] Start: 06-27-2024 [facility] Start: 05-27-2024 End: 05-27-2024 ambulatory Efewongbe Oleghe Facility:[facility] Start: 05-27-2024 End: 05-27-[address] Guilherme Butt MD -[facility] Work Phone: Start: 05-23-2024 End: 05-23-2024 [facility] Start: 05-23-2024 End: 05-23-2024 ambulatory Efewongbe Oleghe OLS Facility:[facility] Start: 04-25-2024 End: 04-25-2024 [facility] Start: 04-25-2024 End: 04-25-2024 ambulatory Efewongbe Oleghe Facility:[facility] Start: 04-15-2024 End: 04-15-2024 ambulatory Efewongbe Oleghe Facility:[facility] Start: 03-20-2024 End: 03-21-2024 ambulatory Efewongbe Oleghe OLS Facility:[facility] Start: 02-22-2024 ambulatory Kellybark riverdmitri Roblese OLS Fa cility:[facility] Start: 02-15-2024 End: 02-15-2024 [facility] Start: 01-29-2024 End: 01-29-2024 ambulatory Efkieranongdmitri Roblese Facility:[facility] Start: 01-25-2024 [facility] Fa cility:[facility] Start: 01-10-2024 ambulatory Efewbark riverdmitri Roblese OLS Fa cility:[facility] Start: 01-08-2024 End: 01-08-2024 [facility] Start: 09-06-2023 End: 09-06-[address] Guilherme Butt Work Phone: [facility] Work Phone: Start: 08-24-2023 End: 08-24-[address] Guilherme Butt Work Phone: [facility] Work Phone: Start: 08-24-2023 End: 08-24-[address] Guilherme Butt Work Phone: [facility] Start: 07-24-2023 End: 07-24-[address] Guilherme Butt Work Phone: [facility] Work Phone: Start: 07-20-2023 End: 07-20-[address] Guilherme Butt Work Phone: [facility] Work Phone: Start: 07-20-2023 End: 07-20-[address] Guilherme Butt Work Phone: [facility] Start: 07-05-2023 End: 07-05-[address] Guilherme Butt Work Phone: [facility] Work Phone: Start: 06-22-2023 End: 06-22-[address] Guilherme Butt Work Phone: [facility] Start: 05-29-2023 End: 05-29-[address] Guilherme Butt Work Phone: [facility] Work Phone: Start: 05-25-2023 End: 05-25-[address] Guilherme Butt Work Phone: [facility] Work Phone: Start: 05-25-2023 End: 05-25-[address] Guilherme Butt Work Phone: [facility] Start: 04-20-2023 End: 04-20-[address] Guilherme Butt Work Phone: [facility] Start: 04-16-2023 End: 04-16-[address] Guilherme Butt Work Phone: [facility] Work Phone: Start: 03-27-2023 End: 03-27-[address] Guilherme Butt Work Phone: [facility] Work Phone: Start: 03-23-2023 End: 03-23-[address] Guilherme Butt Work Phone: [facility] Work Phone: Start: 03-23-2023 End: 03-23-[address] Guilherme Butt Work Phone: [facility] Start: 03-07-2023 End: 03-07-[address] Guilherme Butt Work Phone: [facility] Work Phone: Start: 02-23-2023 End: 02-23-[address] Guilherme Butt Work Phone: [facility] Work Phone: Start: 02-23-2023 End: 02-23-[address] Guilherme Butt Work Phone: [facility] Start: 02-13-2023 End: 02-13-[address] Guilherme Butt Work Phone: [facility] Work Phone: Start: 02-12-2023 Non-patient / Non-visit Dr. Roselia Butt Work Phone: [facility] Start: 02-12-2023 End: 02-12-2023 Admission to same day surgery center Dr. Guilherme Butt Work Phone: [facility] Start: 02-12-2023 End: 02-12-[address] Guilherme Butt Work Phone: [facility] Work Phone: Start: 02-06-2023 End: 02-06-[address] Guilherme Butt Work Phone: [facility] Start: 02-06-[address] Ann Butt Work Phone: [facility] Start: 01-30-2023 End: 01-30-[address] Guilherme Butt Work Phone: [facility] Work Phone: Start: 01-19-2023 End: 01-19-[address] Guilherme Butt Work Phone: [facility] Start: 01-11-2023 End: 01-11-[address] Guilherme Butt Work Phone: [facility] Work Phone: Start: 01-03-2023 End: 01-03-[address] Guilherme Butt Work Phone: [facility] Work Phone: Start: 12-22-2022 End: 12-22-[address] Guilherme Butt Work Phone: [facility] Work Phone: Start: 12-22-2022 End: 12-22-[address] Guilherme Butt Work Phone: [facility] Start: 12-22-[address] Ann Butt Work Phone: [facility] Start: 11-28-2022 End: 11-28-[address] Guilherme Butt Work Phone: [facility] Work Phone: Start: 11-24-2022 End: 11-24-[address] Guilherme Butt Work Phone: [facility] Work Phone: Start: 11-24-2022 End: 11-24-[address] Guilherme Butt Work Phone: [facility] Start: 11-24-[address] Ann Butt Work Phone: [facility] Start: 11-08-2022 End: 11-08-[address] Guilherme Butt Work Phone: [facility] Work Phone: Start: 10-20-2022 End: 10-20-[address] Guilherme Butt Work Phone: [facility] Work Phone: Start: 10-20-2022 End: 10-20-[address] Guilherme Butt Work Phone: [facility] Start: 10-03-2022 End: 10-03-[address] Guilherme Butt Work Phone: [facility] Work Phone: Start: 09-22-2022 End: 09-22-[address] Guilherme Butt Work Phone: [facility] Start: 09-21-2022 Non-patient / Non-visit Dr. Roselia Butt Work Phone: [facility] Start: 09-21-2022 End: 09-21-[address] [facility] Start: 09-04-2022 End: 09-04-[address] Guilherme Butt Work Phone: [facility] Start: 08-25-2022 End: 08-25-[address] Guilherme Butt Work Phone: [facility] Work Phone: Start: 08-25-2022 End: 08-25-[address] Guilherme Butt Work Phone: [facility] Start: 08-23-2022 Non-patient / Non-visit Dr. Roselia Butt Work Phone: [facility] Start: 08-10-2022 End: 08-10-[address] Guilherme Butt Work Phone: [facility] Start: 08-02-2022 End: 08-02-[address] Guilherme Butt Work Phone: [facility] Start: 08-02-2022 End: 08-02-2022 Emergency department patient visit Dr. Guilherme Butt Work Phone: [facility] Start: 07-25-2022 End: 07-25-[address] Guilherme Butt Work Phone: [facility] Start: 07-21-2022 End: 07-21-[address] Guilherme Butt Work Phone: [facility] Work Phone: Start: 07-21-2022 End: 07-21-[address] Guilherme Butt Work Phone: [facility] Start: 07-21-[address] Ann Butt Work Phone: [facility] Start: 06-27-2022 End: 06-27-[address] Guilherme Butt Work Phone: [facility] Start: 06-23-2022 End: 06-23-[address] Guilherme Butt Work Phone: [facility] Work Phone: Start: 06-23-2022 End: 06-23-[address] Guilherme Butt Work Phone: [facility] Start: 06-23-[address] Ann Butt Work Phone: [facility] Start: 06-06-2022 End: 06-06-[address] Guilherme Butt Work Phone: [facility] Start: 05-26-2022 End: 05-26-[address] Guilherme Butt Work Phone: [facility] Work Phone: Start: 05-26-2022 End: 05-26-[address] Guilherme Butt Work Phone: [facility] Start: 05-26-[address] Ann Butt Work Phone: [facility] Start: 05-18-2022 End: 05-18-[address] Guilherme Butt Work Phone: [facility] Start: 05-02-2022 End: 05-02-[address] Guilherme Butt Work Phone: [facility] Start: 04-21-2022 End: 04-21-[address] Guilherme Butt Work Phone: [facility] Work Phone: Start: 04-21-2022 End: 04-21-[address] Guilherme Butt Work Phone: [facility] Start: 04-21-[address] Ann Butt Work Phone: [facility] Start: 04-04-2022 End: 04-04-[address] Guilherme Butt Work Phone: [facility] Start: 04-03-2022 End: 04-03-[address] Guilherme Butt Work Phone: [facility] Start: 04-03-2022 End: 04-03-2022 Emergency department patient visit Dr. Guilherme Butt Work Phone: [facility] Start: 03-28-2022 End: 03-28-[address] Guilherme Butt Work Phone: [facility] Start: 03-24-2022 End: 03-24-[address] Guilherme Butt Work Phone: [facility] Work Phone: Start: 03-24-2022 End: 03-24-[address] Guilherme Butt Work Phone: [facility] Start: 02-24-2022 End: 02-24-[address] Guilherme Butt Work Phone: [facility] Start: 02-24-[address] Maikel allen Work Phone: [facility] Start: 02-07-2022 End: 02-07-[address] Maikel Mosquera Work Phone: [facility] Work Phone: Start: 02-07-2022 End: 02-07-[address] Maikel Mosquera Work Phone: [facility] Start: 02-07-[address] Maikel allen Work Phone: [facility] Start: 01-20-2022 End: 01-20-[address] Maikel Mosquera Work Phone: [facility] Work Phone: Start: 01-20-2022 End: 01-20-[address] Maikel Mosquera Work Phone: [facility] Start: 12-23-2021 End: 12-23-[address] Maikel Mosquera Work Phone: [facility] Work Phone: Start: 12-23-2021 End: 12-23-[address] Maikel Mosquera Work Phone: [facility] Start: 12-12-2021 End: 12-12-[address] Maikel Mosquera Work Phone: [facility] Start: 11-18-2021 End: 11-18-2021 Departed Referred AXEL-Devan Gray TRADE SHOW MANAGER [facility] Start: 10-21-2021 End: 10-21-2021 Departed Referred TRADE SHOW MANAGER-Devan Gray TRADE SHOW MANAGER [facility] Start: 10-02-2021 End: 10-03-2021 Emergency department patient visit TRADE SHOW MANAGER-Devan Gray TRADE SHOW MANAGER [facility] Start: 09-23-2021 End: 09-23-2021 Departed Referred TRADE SHOW MANAGER-Devan Gray TRADE SHOW MANAGER [facility] Start: 09-23-2021 Registered Referred TRADE SHOW MANAGER-Devan Gray TRADE SHOW MANAGER [facility] Start: 09-19-2021 End: 09-19-2021 Patient encounter procedure TRADE SHOW MANAGER-Devan Gray TRADE SHOW MANAGER [facility] Start: 08-19-2021 End: 08-19-2021 Departed Referred [facility] Start: 08-19-2021 Registered Referred [facility] Start: 07-22-2021 End: 07-22-2021 Departed Referred [facility] Start: 07-22-2021 Registered Referred [facility] Start: 06-24-2021 End: 06-24-2021 Departed Referred [facility] Start: 05-27-2021 End: 05-27-2021 Departed Referred [facility] Procedures Date Procedure Procedure Detail [...] Start: 10-02-2021 CT of head without contrast TRADE SHOW MANAGERRobi Gray TRADE SHOW MANAGER Plan of Treatment Date Care Activity Detail Author Start: 02-12-2023 Anesthesia intraperi toneal lower abd w/laps nos ANESTH SURG LOWER ABDOMEN [facility] Start: 02-12-2023 Laparoscopy surg rpr initial inguinal hernia LAP ING HERNIA REPAIR INIT [facility] Start: 02-12-2023 Patient discharge [facility] Start: 02-12-2023 [facility] [place] Heart Views W str ess and W radionuclide IV [facility] Patient Education [facility] Work Phone: Patient referral [facility] Work Phone: [facility] Payers Date Payer Category Payer Self-pay [id number] 2024 Unknown [id number] 2024 Unknown [id number] 2014 Unknown [id number] Medicare [id number] Unknown [id number] Unknown [id number] 2.16.8 40.1.012945.3.579.2.462 Unknown [id number] 2.16.8 40.1.211720.3.579.2.462 Unknown [id number] 2.16.8 40.1.193516.3.579.2.462 Unknown [id number] 2.16.8 40.1.727292.3.579.2.462 Unknown [id number] 2.16.8 40.1.484503.3.579.2.462 Unknown [id number] 2.16.8 40.1.888217.3.579.2.462 Unknown [id number] 2.16.8 40.1.076771.3.579.2.462 Unknown [id number] 2.16.8 40.1.720142.3.579.2.462 Unknown [id number] 2.16.8 40.1.929034.3.579.2.462 Unknown [id number] 2.16.8 40.1.088243.3.579.2.462 Unknown [id number] 2.16.8 40.1.978304.3.579.2.462 Unknown [id number] 2.16.8 40.1.124059.3.579.2.462 Unknown [id number] 2.16.8 40.1.937565.3.579.2.462 Unknown [id number] 2.16.8 40.1.705249.3.579.2.462 Unknown [id number] 2.16.8 40.1.840347.3.579.2.462 Unknown [id number] 2.16.8 40.1.368943.3.579.2.462 Unknown [id number] 2.16.8 40.1.543725.3.579.2.462 Unknown [id number] 2.16.8 40.1.979034.3.579.2.462 Unknown [id number] 2.16.8 40.1.581963.3.579.2.462 Unknown [id number] 2.16.8 40.1.038067.3.579.2.462 Unknown [id number] 2.16.8 40.1.050263.3.579.2.462 Unknown [id number] 2.16.8 40.1.307172.3.579.2.462 Unknown [id number] 2.16.8 40.1.950181.3.579.2.462 Unknown [id number] 2.16.8 40.1.867316.3.579.2.462 Unknown [id number] 2.16.8 40.1.284567.3.579.2.462 Unknown [id number] 2.16.8 40.1.925243.3.579.2.462 Unknown [id number] 2.16.8 40.1.157073.3.579.2.462 Social History Date Type Detail Facility Start: 07-24-2016 End: 03-12-2023 Tobacco smoking status NHIS Unknown if ever smoked [facility] Start: 04-21-2021 None [facility] Start: 04-21-2021 Non-smoker [facility] Start: 1945 Sex Assigned At Male [facility] Start: 03-12-2023 End: 11-26-2024 Tobacco smoking status NHIS Ex-smoker (finding) [facility] Start: 08-15-2024 Sex Male (finding) [facility] Medical Equipment Procedure Code Equipment Code Equipment Origin al Text Equipment Identifier Dates Extra-gynaecolog ical surgical mesh, composite-polymer [id number] FDA Start: 02-12-2023 Goals Date Patient Goal Desired Activity /State Mental Status Date Assessment Result Facility 02-12-2023 Cognitive function Level Of Cons ciousness Follows Commands;Drowsy [facility] Work Phone: 04-03-2022 Cognitive function Level Of Cons ciousness Awake;Alert;Appropriate [facility] Work Phone: 10-02-2021 Cognitive function Voice/Name [facility] Work Phone: Clinical Notes 11-11-2005 to 10-08-2024 Note Date & Type Note Facility 10-08-2024 Progress note [facility] 10-08-2024 Progress note Note Date/Time October 08, 2024 2:43pm [facility]. [address] [place] [address] OFFICE VISIT Date of Service: 10/08/24 MR#: [id number] Acct: [id number] Name: IGOR CRUZ Rep #: [id number] : 1945 Provider: Dr. Isai Yen MD Age/Sex: 79/M Location[place] [facility] [place] Status: Signed HPI HPI History of Present [...] Source NIBP Intake Visit Reasons: OVER DUE Hot Pond Operator Required: No Accompanied by: Self Is patient [...] stress test Hypertension Kidney disease Lives in [facility] Parkinson disease Parkinson's disease Syncope Valvular heart [...] and replacement of a hemisheild graft @ [facility] 11/21/05 Plan: Repeat echocardiogram. (3) Parkinson's [...] applicable) CC: Dr. Guilherme Butt MD ~ [facility] Work Phone: 1(356) 770-730010-02-2023 Discharge summary Author Ori Jones [facility] February 12, 2023 1:48pm Note Date/Time February 12, 2023 1: 47pm [facility] System Medical Records Department [address] [place] [address] Instructions for Home/Discharge Instructions 02/12/23 1347 MR#: [id number] Acct: [id number] Name: IGOR CRUZ Rep #:[id number] : 1945 77 From: Ori wooten MD PCP: Dr. Guilherme Butt MD Status:R [facility] Discharge Instructions Procedure Hernia Diet Discharge [...] to schedule 2 week follow up appointment. [phone] Test Results: Test results from this visit [...] CC: Dr. Guilherme Butt MD ~ Signed [facility] Work Phone: 1(903) 242-423810-02-2023 Procedure [facility] 02-12-2023 History and physical note Author Ori [facility] February 12, 2023 10:45am Note Date/Time February 12, 2023 10 :46am [facility] Medical Records Department [address] [place] [id number] History & Physical Exam 02/12/23 1045 MR#: [id number] Acct: [id number] Name: IGOR CRUZ Rep #:[id number] : 1945 77 From: Ori wooten MD PCP: Dr. Guilherme Butt MD Status:R [facility] Location: [place] [address] History and Physical Date of Admission: 02/12/23 Intake Vital Signs 09/04/2309:58 01/11/2314:37 Height 6 ft 6 ft Weight: 184 lb BMI 24.9 BP 130/85 H Blood Pressure Location Lt brachial Position Sitting Respiration 16 Intake Visit Reasons: INGUINAL HERNIA Chief Complaint: inguinal hernia Hot Pond Operator Required: No Is patient in pain?: No [...] 1 tab PO 01/11/23 [History Confirmed 01/11/23] [facility] Medical History Anxiety Atrial fibrillation [...] inguinal hernia. He comes to from a [facility]. He reports is been there for at [...] to the procedure. Ori Jones MD Pager: [facility] [address] [place] [address], [address] [place] [address] Office: I have examined the patient and the H&P has been reviewed. There are no clinicalchanges since date of exam. 02/12/23 1045 <Electronically signed by Ori Jones MD> Cosigner Signature (if applicable): CC: Dr. Ori Jones MD; Dr. Guilherme Butt MD~ Signed [facility] Work Phone: 1(315) 328-698007-01-2006 Evaluation note* Diagnosis Onset Date Resolution Status History of aortic valve repl acement with bioprosthetic valve November, acute Chest pain chronic Essential hypertension chron ic Parkinson's disease chronic Paroxysmal atrial fibrillation chronic [facility] Work Phone: 1(329) 440-255107-01-2006 Evaluation note* Diagnosis Onset Date Resolution Status Admit Date History of aortic valve replacement with bioprosthetic valve November, acute October 08, 2024 2 :14pm Parkinson's disease chronic September 122024 2:14pm Paroxysmal atrial fibrillation chron ic October 08, 2024 2:14pm [facility] Work Phone: Discharge summary Author Dr. Callahan [facility] August 02, 2022 7:37am Note Date/Time August 02, 2022 7:1 3am [facility] System Medical Records Department [address] [place] [address] Emergency Department Summary 08/02/22 MR#: [id number] Acct: [id number] Name: IGOR CRUZ Rep #:[id number] : 1945 77 From: Matt Cristina PCP: [...] States his hip does not hurt. Per [facility] patient injured his right hip after fall. [facility] Medical History Anxiety Atrial fibrillation Back pain [...] BID 07/24/16 [History Last Taken Unknown] [place] 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 Call [facility] ([phone]) or report to the closest Emergency Room. Call 911 if necessary. 08/02/22 7186 <Electronically signed by Matt Callahan DO> Cosigner Signature (if applicable): CC: Dr. Guilherme Butt MD ~ Signed [facility] Work Phone: Evaluation noteNo assessment information available [facility] Work Phone: Evaluation note* Diagnosis Onset Date Resolution Status Left inguinal hernia acute [facility] Work Phone: Evaluation note* Diagnosis Onset Date Resolution Status Left inguinal hernia acute Left inguinal hernia acute [facility] Work Phone: Hospital Discharge instructions Additional Instructions Alternate ibuprofen and Tylenol for pain, may resume aspirin Sunday. [facility]: Reason for referral (narrative)No reason for referral information availableWF[facility] Work Phone: Summary Purpose Family History No Family History Records Found Relationship Condition Age at Onset Recorded Date/T jina mother Malignant neoplasm Unknown father Malignant neoplasm Unknown Chronic obstructive pulmonary disease Unk nown Advance Directives No Advanced Directives Records Found Advance Directive Response Recorded Date/ Time Living Will Yes July 24, 2016 9:10am Power of Hot Metal Mixer Operator Helper Yes July 24 9:10am Advance Directive Response Recorded Date/ Time Living Will No October 02, 2021 8 :30pm Power of Hot Metal Mixer Operator Helper No October 02, 2021 8:30pm Advance Directive Response Recorded Date/ Time Living Will No May 22 1:15pm Power of Hot Metal Mixer Operator Helper No May 22 023 1:15pm Advance Directive Response Recorded Date/ Time Living Will No May 22 2:15pm Power of Hot Metal Mixer Operator Helper No May 22 2 023 2:15pm Advance Directive Response Recorded Date/ Time Living Will No February 09, 2023 12:16pm Power of Hot Metal Mixer Operator Helper No January 12:16pm Advance Directive Response Recorded Date/ Time Living Will No March 12 12:59pm Power of Hot Metal Mixer Operator Helper No March 12, 2023 12:59pm Advance Directive Response Recorded Date/ Time Living Will No March 12 1:59pm Power of Hot Metal Mixer Operator Helper No March 12, 2023 1:59pm Chief Complaint and Reason for Visit Chief Complaint MCC LABWORK MCC LABWORK MCC LABWORK MCC BLOOD WORK Chief Complaint MCC LABWORK MCC LABWORK MCC BLOOD WORK MONTHLY EXAM CONFUSION Chief Complaint MCC LABWORK MCC BLOOD WORK MONTHLY EXAM MCC LABWORK CONFUSION LABWORK Chief Complaint MCC BLOOD W ORK MONTHLY EXAM MCC LABWORK CONFUSION LABWORK MCC LABWORK Chief Complaint MONTHLY EXAM MCC LABWORK CONFUSION LABWORK MCC LABWORK MONTHLY EXAM MCC LABWORK Chief Complaint MCC LABWORK MONTHLY EXAM MCC LABWORK LABWORK MCC LABWORK Chief Complaint MCC LABWORK MCC LAB WORK MCC LABWORK MONTHLY EXAM syncope ACUTE CARE VISIT RE-ADMISSION NOTE MCC LABWORK READMISSION NOTE NEW CONCERN/PROBLEM Chief Complaint MCC LAB WOR K MCC LABWORK MONTHLY EXAM syncope ACUTE CARE VISIT RE-ADMISSION NOTE M[facility] LABWORK READMISSION NOTE NEW CONCERN/PROBLEM MCC LABWORK Chief Complaint RE-ADMISSION NOTE MCC LABWORK READMISSION NOTE NEW CONCERN/PROBLEM MCC LABWORK MONTHLY MCC LABWORK MONTHLY NOTE FALL Chief Complaint MCC LABWORK READMISSION NOTE NEW CONCERN/PROBLEM MCC LABWORK MONTHLY MCC LABWORK MONTHLY NOTE MCC LABWORK MONTHLY FALL NEW COMPLAINT Chief Complaint NEW CONCERN/PROBLEM MCC LABWORK MONTHLY MCC LABWORK MONTHLY NOTE MCC LABWORK MONTHLY FALL NEW COMPLAINT NEW COMPLAINT Amb Documentation MCC LABWORK CP, PREV AVR Reason for Visit 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 Chest pain Essential hypertension Parkinson's disease Paroxysmal atrial fibrillation Chief Complaint CP, PREV AVR CP, EVAL VALVE REPLACEMENT MCC LABWORK MONTHLY EXAM MCC LABWORK MONTHLY NOTE LABWORK MONTHLY EXAM Reason for Visit 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 Chest pain Essential hypertension Parkinson's disease Paroxysmal atrial fibrillation Chief Complaint CP, EVAL VALVE REPLA CEMENT MCC LABWORK MONTHLY EXAM MCC LABWORK MONTHLY NOTE LABWORK MONTHLY EXAM Chief Complaint CP, EVAL VALVE REPLA CEMENT MCC LABWORK MONTHLY EXAM MCC LABWORK MONTHLY NOTE LABWORK MONTHLY EXAM MCC LABWORK INGUINAL HERNIA Chief Complaint MCC LABWORK MONTHLY NOTE LABWORK MONTHLY EXAM MCC LABWORK ACUTE VISIT INGUINAL HERNIA MCC LAB WORK MONTHLY EXAM Lap Robotic Left poss Bilateral Ing Lap Robotic Left poss Bilateral Ing Reason for Visit Left inguinal hernia Chief Complaint MONTHLY NOTE LABWORK MONTHLY EXAM MCC LABWORK ACUTE VISIT INGUINAL HERNIA MCC LAB WORK MONTHLY EXAM MCC LAB WORK Lap Robotic Left poss Bilateral Ing Lap Robotic Left poss Bilateral Ing MCC LABWORK Hernia 02/12 Reason for Visit Left inguinal hernia Left inguinal hernia Chief Complaint MCC LABWORK ACUTE VISIT INGUINAL HERNIA MCC LAB WORK MONTHLY EXAM MCC LAB WORK Lap Robotic Left poss Bilateral Ing Lap Robotic Left poss Bilateral Ing MONTHLY VISIT MCC LABWORK Hernia 02/12 MCC LABWORK Reason for Visit Left inguinal hernia Left inguinal hernia Chief Complaint Lap Robotic Left pos s Bilateral Ing Lap Robotic Left poss Bilateral Ing MONTHLY VISIT MCC LABWORK Hernia 02/12 M[facility] LABWORK MONTHLY EXAM NEW CONCERN MCC LABWORK MCC LABWORK Reason for Visit Left inguinal hernia Chief Complaint NEW CONCERN MCC LABWORK MCC LABWORK MONTHLY EXAM - MD LABWORK LABWORK Chief Complaint MCC LABWORK MONTHLY EXAM - MD LABWORK MONTHLY [...] MONTHLY EXAM July 29, 2024 7:4 9pm MCC LAB WORK August 22, 2024 5 :00am Chief Complaint Admit Date LABWORK June 27, 2024 5:00am MONTHLY VISIT July 03, 2024 10:45am LABWORK July 25, 2024 5:0 0am MONTHLY EXAM July 29, 2024 7:4 9pm MCC LAB WORK August 22, 2024 5 :00am LABWORK September 19, 2024 5:00am OVER DUE FU October 08, 2024 2:14p m Reason for Visit Admit Date History of aortic valve replacement with bioprosthetic valve October 08, 2024 2:14pm Parkinson's disease October 08, 2024 2:14p m Paroxysmal atrial fibrillation October 08, 2024 2:14pm Chief Complaint Admit Date MONTHLY VISIT July 03, 2024 10:45am LABWORK March 14th, 2025 5:0 0am MONTHLY EXAM July 29, 2024 7:4 9pm Monthly Visit August 12, 2024 6:20 pm MCC LAB WORK August 22, 2024 5 :00am LABWORK September 19, 2024 5:00am OVER DUE October 08, 2024 2:14p m Chief Complaint Admit Date MONTHLY EXAM July 29, 2024 7:4 9pm Monthly Visit August 12, 2024 6:20 pm MCC LAB WORK August 22, 2024 5 :00am LABWORK September 19, 2024 5:00am MONTHLY EXAM September 23, 2024 5:30p m OVER DUE October 08, 2024 2:14p m MCC LAB WORK October 24, 2024 5: 00am Chief Complaint Admit Date Monthly Visit August 12, 2024 6:20 pm MCC LAB WORK August 22, 2024 5 :00am LABWORK September 19, 2024 5:00am MONTHLY EXAM September 23, 2024 5:30p m OVER DUE October 08, 2024 2:14p m MONTHLY VISIT October 16, 2024 11:00 am MCC LAB WORK October 24, 2024 5: 00am Chief Complaint Admit Date MCC LAB WORK August 22, 2024 5 :00am LABWORK September 19, 2024 5:00am MONTHLY EXAM September 23, 2024 5:30p m OVER DUE October 08, 2024 2:14p m MONTHLY VISIT October 16, 2024 11:00 am MCC LAB WORK October 24, 2024 5: 00am LABWORK November 21, 2024 5:00 am HX OF AORTIC VALVE REPLACEMENT December 1:54pm Additional Source Comments (unrecognized sect ion and content) No Status Records FoundNo Status Records FoundNo Status Records Found INFORMATION SOURCE (unrecogn ized section and content) DATE CREATED AUTHOR 08/12/2019 [facility] ([place]) DATE CREATED AUTHOR AUTHOR'S ORGANIZ ATION 01/01/2021 [facility] DATE CREATED AUTHOR AUTHOR'S ORGANIZ ATION 12/21/2024 [facility] Goals (unrecognized section and content) Goals may [...] MD Primary Care Provider Active Cecy Gray TRADE SHOW MANAGER, TRADE SHOW MANAGER-C Attending Provider Active Team Status: Inactive Member [...] Guilherme Butt MD Primary Care Provider Active [facility] Attending Provider Active Team Status: Active Member Role Status Dates Dr. Guilherme Butt MD Primary Care Provider Active Guilherme SHI MD Attending Provider Active Team Status: Inactive Member Role Status Dates Dr. Guilherme Butt MD Primary Care Provider Active Dr. Matt Callahan DO Emergency Provider Active Team Status: Inactive Member Role Status Dates Dr. Guilherme Butt MD Primary Care Provider Active [facility] Attending Provider Active Team Status: Inactive Member Role Status Dates Dr. Guilherme Butt MD Primary Care Provider Active Dr. Matt Callahan DO Attending Provider, Emergency P rovider Active Team Status: Inactive Member Role Status [...] Provider Active Dr. Ori Jones MD Active TANJA Hernandez-Devan Attending Provider Active Team Status: Inactive Member Role Status Dates Dr. Guilherme Butt MD Primary Care Provider Active Guilherme SHI MD Attending Provider, Referring Provider Active Team Status: Inactive Member Role Status Dates Dr. Guilherme Butt MD Primary Care Provider Active TANJA Tirado Attending Provider Active Team Status: Inactive Member [...] Provider Active Start: June 27, 2024 Guilherme HSI MD Attending Provider Active Start: June 27, [...] September 19, 2024 End: September 19, 2024 Team Status: Inactive Member Role Status Dates Dr. Guilherme Butt MD Primary Care Provider Active Start: August 12, 2024 End: August 12, 2024 KAMALA Corey NPC Attending Provider Active Start: August 12, 2024 End: August 12, 2024 Team Status: Active Member Role Status Dates Dr. Guilherme Butt MD Primary Care Provider Active Start: October 24, 2024 Cecy SHI TRADE SHOW MANAGER-C Attending Provider Active Start: October 24, 2024 Team Status: Active Member Role/Relationship Status Dates Dr. Dallas Rutherford DO Family Provider Active Dr. Guilherme Butt MD Primary Care Provider Active Team Status: Inactive Member Role/Relationship Status Dates Dr. Guilherme Butt MD Primary Care Provider Active Start: July 29, 2024 End: July 29, 2024 Dr. Guilherme Butt MD Attending Provider Active Start: July 29, 2024 End: July 29, 2024 Team Status: Inactive Member Role/Relationship Status Dates Dr. Guilherme Butt MD Primary Care Provider Active Start: August 12, 2024 End: August 12, 2024 Cecy Gray NP TRADE SHOW MANAGER-C Attending Provider Active Start: August 12, 2024 End: August 12, 2024 Team Status: Inactive Member Role/Relationship Status Dates Dr. Guilherme Butt MD Primary Care Provider Active Start: August 22, 2024 End: August 22, 2024 Cecy SHI TRADE SHOW MANAGER-C Attending Provider Active Start: August 22, 2024 End: August 22, 2024 Team Status: Inactive Member Role/Relationship Status Dates Dr. Guilherme Butt MD Primary Care Provider Active Start: September 19, 2024 End: September 19, 2024 Guilherme SHI MD Attending Provider Active Start: September 19, 2024 End: September 19, 2024 Team Status: Inactive Member Role/Relationship Status Dates Dr. Guilherme Butt MD Primary Care Provider Active Start: September 23, 2024 End: September 23, 2024 Dr. Guilherme Butt MD Attending Provider Active Start: September 23, 2024 End: September 23, 2024 Team Status: Inactive Member Role/Relationship Status Dates Dr. Guilherme Butt MD Primary Care Provider Active Start: October 08, 2024 End: October 08, 2024 Dr. Guilherme Butt MD Referring Provider Active Start: October 08, 2024 End: October 08, 2024 Dr. Dwain Yen MD Attending Provider Active Start: October 08, 2024 End: October 08, 2024 Team Status: Active Member Role/Relationship Status Dates Dr. Guilherme Butt MD Primary Care Provider Active Start: October 24, 2024 Cecy SHI NP-C Attending Provider Active Start: October 24, 2024 Team Status: Active Member Role/Relationship Status Dates Dr. Guilherme Butt MD Primary Care Provider Active Start: November 21, 2024 Guilherme SHI MD Attending Provider Active Start: November 21, 2024 Team Status: Inactive Member Role/Relationship Status Dates Dr. Guilherme Butt MD Primary Care Provider Active Start: August 12, 2024 End: August 12, 2024 Cecy Gray NP TRADE SHOW MANAGER-C Attending Provider Active Start: August 12, 2024 End: August 12, 2024 Team Status: Inactive Member Role/Relationship Status Dates Dr. Guilherme Butt MD Primary Care Provider Active Start: August 22, 2024 End: August 22, 2024 Cecy SHI NP-C Attending Provider Active Start: August 22, 2024 End: August 22, 2024 Team Status: Inactive Member Role/Relationship Status Dates Dr. Guilherme Butt MD Primary Care Provider Active Start: September 19, 2024 End: September 19, 2024 Guilherme SHI MD Attending Provider Active Start: September 19, 2024 End: September 19, 2024 Team Status: Inactive Member Role/Relationship Status Dates Dr. Guilherme Butt MD Primary Care Provider Active Start: September 23, 2024 End: September 23, 2024 Dr. Guilherme Butt MD Attending Provider Active Start: September 23, 2024 End: September 23, 2024 Team Status: Inactive Member Role/Relationship Status Dates Dr. Guilherme Butt MD Primary Care Provider Active Start: October 08, 2024 End: October 08, 2024 Dr. Guilherme Butt MD Referring Provider Active Start: October 08, 2024 End: October 08, 2024 Dr. Dwain Yen MD Attending Provider Active Start: October 08, 2024 End: October 08, 2024 Team Status: Inactive Member Role/Relationship Status Dates Dr. Guilherme Butt MD Primary Care Provider Active Start: October 16, 2024 End: October 16, 2024 TANJA Tirado Attending Provider Active St art: October 16, 2024 End: October 16, 2024 Team Status: Active Member Role/Relationship Status Dates Dr. Guilherme Butt MD Primary Care Provider Active Team Status: Inactive Member Role/Relationship Status Dates Dr. Guilherme Butt MD Primary Care Provider Active Start: August 22, 2024 End: August 22, 2024 TIFFANY Cameron Attending Provider Active Start: August 22, 2024 End: August 22, 2024 Team Status: Inactive Member Role/Relationship Status Dates Dr. Guilherme Butt MD Primary Care Provider Active Start: September 19, 2024 End: September 19, 2024 Guilherme SHI MD Attending Provider Active Start: September 19, 2024 End: September 19, 2024 Team Status: Inactive Member Role/Relationship Status Dates Dr. Guilherme Butt MD Primary Care Provider Active Start: September 23, 2024 End: September 23, 2024 Dr. Guilherme Butt MD Attending Provider Active Start: September 23, 2024 End: September 23, 2024 Team Status: Inactive Member Role/Relationship Status Dates Dr. Guilherme Butt MD Primary Care Provider Active Start: October 08, 2024 End: October 08, 2024 Dr. Guilherme Butt MD Referring Provider Active Start: October 08, 2024 End: October 08, 2024 Dr. Dwain Yen MD Attending Provider Active Start: October 08, 2024 End: October 08, 2024 Team Status: Inactive Member Role/Relationship Status Dates Dr. Guilherme Butt MD Primary Care Provider Active Start: October 16, 2024 End: October 16, 2024 TANJA Tirado Attending Provider Active St art: October 16, 2024 End: October 16, 2024 Team Status: Active Member Role/Relationship Status Dates Dr. Guilherme Butt MD Primary Care Provider Active Start: October 24, 2024 TIFFANY Cameron Attending Provider Active Start: October 24, 2024 Team Status: Active Member Role/Relationship Status Dates Dr. Guilherme Butt MD Primary Care Provider Active Start: November 21, 2024 Guilherme SHI MD Attending Provider Active Start: November 21, 2024 Team Status: Inactive Member Role/Relationship Status Dates Dr. Guilherme Butt MD Primary Care Provider Active Start: December 12, 2024 End: December 12, 2024 Dr. Dwain Yen MD Attending Provider Active Start: December 12, 2024 End: December 12, 2024 Dr. Dwain Yen MD Referring Provider Active Start: December 12, 2024 End: December 12, 2024 Team Status: Active Member Role/Relationship Status Dates Dr. Guilherme Butt MD Primary Care Provider Active Start: December 12, 2024 Dr. Mike oPe MD Attending Provider Active S tart: December 12, 2024 Team Status: Active Member Role/Relationship Status Dates Dr. Guilherme Butt MD Primary Care Provider Active Start: December 19, 2024 Guilherme SHI MD Attending Provider Active Start: December 19, 2024 FOR RECORDS PERTAINING TO PATIENTS [...] BE BASED ON THE PRIMARY CLINICAL RECORDS. [facility] [email or web address], [facility]. provides no warranty or guarantee of the accuracy or completeness of information in this document.
[2024-12-24 08:26] LABS: Color, Urine Yellow (Yellow); Glucose, Dipstick Normal (Normal); Ketone-Dipstick Negative (Negative); Leukocyte Esterase-Dipstick 25 /ul (Negative); Nitrite-Dipstick Negative (Negative); Occult Blood-Urine Negative /ul (Negative); Protein-Dipstick 15 mg/dl (Negative); Specific Gravity, Urine 1.010 (1.002-1.030); Urine Bilirubin Dipstick Negative (Negative)
== END ==
LOC: OLS.WHLEAS 21:55
PROVIDERS: PCP Internal Medicine; Visit Provider Internal Medicine
DX: M54.50 Low back pain, unspecified (principal)
CPT/HCPCS: 81001; 87086; 87088

== ENCOUNTER → 2025-01-23 05:00 | Outpatient (REF) | payer MEDICARE, MEDICAID, SELFPAY ==
--- OUTSIDE RECORDS SUMMARY | 2025-01-23 04:23 | XMS RPT_ITS | CCD ---
Author Organization [facility] Care Team Providers Care Realty Loan Specialist Name Role Phone Isaac MANAGER RELATIONSHIP, MANAGER RELATIONSHIP-C Cecy Attending Provider Dr. Maikel Alfaro Primary Care Provider Tickashli MANAGER RELATIONSHIP, MANAGER RELATIONSHIP-C Cecy Attending Provider Dr. Guilherme Barrera Primary Care Provider Dr. Guilherme Butt Attending Provider [phone] Isaac MANAGER RELATIONSHIP, MANAGER RELATIONSHIP-C Cecy Attending Provider Dr. Guilherme Barrera Primary Care Provider [phone] Tickashli MANAGER RELATIONSHIP, MANAGER RELATIONSHIP-C Cecy Attending Provider Dr. Guilherme Barrera Attending Provider [phone] Tickashli OLS, MANAGER RELATIONSHIP-C Cecy Attending Provider [phone] Dr. Guilherme Butt Primary Care Provider [phone] Tickashli MANAGER RELATIONSHIP, MANAGER RELATIONSHIP-C Cecy Attending Provider Dr. Guilherme Barrera Primary Care Provider [phone] Tickashli MANAGER RELATIONSHIP, MANAGER RELATIONSHIP-C Cecy Attending Provider UnaLucita Rivera Attending Provider Unavailable Dr. Guilherme Butt Referring Provider [phone] Dr. Dwain Yen Attending Provider Dr. Guilherme Butt Primary Care Provider [phone] Dr. Mike Poe Attending Provider Dr. Dwain Yen Referring Provider Dr. Guilherme Butt Attending Provider [phone] Isaac MANAGER RELATIONSHIP, MANAGER RELATIONSHIP-C Cecy Attending Provider Unav Dr. Guilherme Kerr Primary Care Provider [phone] Dr. Guilherme Butt Referring Provider [phone] Dr. Ori Jones Attending Provider Dr. Guilherme Butt Primary Care Provider [phone] Dr. Guilherme Butt Attending Provider [phone] Dr. Ori Jones Referring Provider Dr. Ori Jones Other Provider BIRD Stewart Attending Provider Dr. Guilherme Butt Primary Care Provider [phone] Isaac MANAGER RELATIONSHIP, MANAGER RELATIONSHIP-C Cecy Attending Provider Unav Dr. Guilherme Kerr Referring Provider [phone] Dr. Ori Jones Attending Provider Dr. Guilherme Butt Attending Provider [phone] Dr. Ori Jones Referring Provider Dr. Ori Jones Other Provider BIRD Stewart Attending Provider Dr. Guilherme Butt Primary Care Provider [phone] Dr. Ori Jones Attending Provider Isaac MANAGER RELATIONSHIP, MANAGER RELATIONSHIP-C Cecy Attending Provider Dr. Guilherme Butt Referring Provider [phone] Dr. Guilherme Butt Attending Provider [phone] Dr. Guilherme Butt Primary Care Provider [phone] Isaac MANAGER RELATIONSHIP, MANAGER RELATIONSHIP-C Cecy Attending Provider Dr. Guilherme Butt Attending Provider [phone] Oleghe, Dr. Vanegas Primary Care Provider [phone] TANJA Painter Attending Provider [phone] Filomena LEVIN, Dr. Vanegas Primary Care Provider Guilherme Butt MD Attending Provider Daljit Butt MD, Dr. Vanegas Attending Provider [phone] Camilo Painter Attending Provider [phone] Filomena LEVIN, Dr. Vanegas Primary Care Provider Filomena LEVIN, Guilherme Attending Provider Daljit Gray MANAGER RELATIONSHIP-CCecy Attending Provider [phone] Filomena LEVIN, Dr. Vanegas Primary Care Provider Guilherme Butt MD Attending Provider Daljit Butt MD, Dr. Vanegas Attending Provider [phone] Filomena LEVIN, Dr. Vanegas Referring Provider [phone] Farshad LEVIN, Dr. Prakash Attending Provider Filomena LEVIN, Dr. Vanegas Primary Care Provider Guilherme Butt MD Attending Provider Daljit Gray MANAGER RELATIONSHIP-CCecy Attending Provider Filomena LEVIN, Dr. Vanegas Primary Care Provider Guilherme Butt MD Attending Provider Daljit Butt MD, Dr. Vanegas Primary Care Provider Filomena LEVIN, Dr. Vanegas Attending Provider [phone] Camilo Painter Attending Provider [phone] Filomena LEVIN, Dr. Vanegas Primary Care Provider Farshad LEVIN, Dr. Prakash Referring Provider Deepika LEVIN, Dr. Mckeon Attending Provider [phone] Filomena LEVIN, Dr. Vanegas Primary Care Provider Isaac MANAGER RELATIONSHIP-C, Cecy Attending Provider Isaac MANAGER RELATIONSHIP-C, Cecy Attending Provider [phone] Filomena LEVIN, Dr. Vanegas Primary Care Provider Guilherme Butt MD Attending Provider Unavaila ble Oleghe OLS, Efewongbe Attending Unavailabl e Oleghe, Efewongbe Primary Care Unavailable Oleghe OLS, Efewongbe Attending Unavailabl e Oleghe, Efewongbe Primary Care Unavailable Oleghe, Efewongbe Primary Care Unavailable Oleghe, Efewongbe Attending Unavailable Oleghe, Efewongbe Primary Care Unavailable Oleghe, Efewongbe Attending Unavailable Oleghe, Efewongbe Primary Care Unavailable Oleghe OLS Efewongbe Attending Unavailabl e Tickton Cecy SHI Attending Unavailable Oleghe, Efewongbe Primary Care Unavailable Oleghe JOSE GUADALUPE Efewongbe Attending Unavailabl e Oleghe, Efewongbe Primary Care Unavailable Oleghe OLS, Efewongbe Attending Unavailabl e Oleghe, Efewongbe Primary Care Unavailable Oleghe, Efewongbe Referring Unavailable Farshad, Dwain Attending Unavailable Oleghe, Efewongbe Primary Care Unavailable Oleghe, Efewongbe Primary Care Unavailable Camilo Painter Attending Unavailable Oleghe, Efewongbe Primary Care Unavailable Oleghe, Efewongbe Attending Unavailable Oleghe, Efewongbe Primary Care Unavailable Tickashli MANAGER RELATIONSHIPCcey Attending Unavailable Oleghe, Efewongbe Primary Care Unavailable Tickton MANAGER RELATIONSHIPCecy Attending Unavailable Oleghe, Efewongbe Primary Care Unavailable Tickton MANAGER RELATIONSHIPCecy Attending Unavailable Oleghe, Efewongbe Primary Care Unavailable Farshad, Dwain Referring Unavailable Farshad, Dwain Attending Unavailable Oleghe OLS, Efewongbe Attending Unavailabl e Oleghe, Efewongbe Primary Care Unavailable Oleghe OLS, Efewongbe Attending Unavailabl e Oleghe, Efewongbe Primary Care Unavailable Oleghe, Efewongbe Primary Care Unavailable Camilo Painter Attending Unavailable Oleghe, Efewongbe Primary Care Unavailable Mike Poe Attending Unavailable Oleghe, Efewongbe Attending Unavailable Oleghe, Efewongbe Primary Care Unavailable Oleghe, Efewongbe Primary Care Unavailable Camilo Painter Attending Unavailable Oleghe OLS, Efewongbe Attending Unavailabl e Oleghe, Efewongbe Primary Care Unavailable Isaac SHI, Cecy Attending Unavailable Oleghe, Efewongbe Primary Care Unavailable Oleghe OLS, Efewongbe Attending Unavailabl e Oleghe, Efewongbe Primary Care Unavailable Isaac MANAGER RELATIONSHIP, Cecy Attending Unavailable Oleghe, Efewongbe Primary Care [...] Sig (Original) acetaminophen 325 mg oral tablet (20 sources) Start: 09-04-2022 take 2 tablets by mouth three times daily Acetaminophen 325 mg tablet Active 650 mg PO THREE TIMES A DAY September 04, 2022 12:00am Start: 09-04-2022 take 650 mg by mouth three times daily Acetaminophen Active 650 MG PO THREE TIMES A DAY September 04, 2022 12:00am Alum-Mag Hydroxide-Simeth (Mylanta Maximum Strength) 400-400-40 mg/5 mL suspension (17 sources) Start: 09-04-2022 take 1 mL by [...] 2022 10:50am bisacodyl 10 mg rectal suppository (20 sources) Stimulant Laxative Start: 09-04-2022 Bisacodyl 1 [...] 09-04-2022 take 1 tablet by pavan th at bedtime Carbidopa-Levodopa Active 1 TABLET PO [...] 12:00am docusate sodium 50 mg / sennosides, fci 8.6 mg oral tablet (20 sources) Start: 04-24-2023 Sennosides-Docusate Sodium (Senna-S) 8.6-50 mg tablet Active 1 NMA PO TWICE A DAY September 04, 2022 12:00am DULoxetine 60 mg delayed release oral capsule (20 sources) Serotonin and Norepinephrine Reuptake Inhibitor Start: [...] Start: 07-24-2016 take 1 capsule by mo [facility] three times daily Efa, Essential Fatty Acid Active 1 CAP PO THREE TIMES A DAY July 23, 2016 11:00pm Start: 07-24-2016 take 1 capsule by mo ut three times daily Efa, Essential Fatty Acid [...] DAY July 24, 2016 12:00am Magnesium Hydroxide (20 sources) Start: 09-04-2022 take 1 mL by [...] 2022 12:00am melatonin 10 mg oral tablet (20 sources) Start: 09-04-2022 take 1 tablet by mouth at bedtime Melatonin 10 mg tablet Active 10 mg PO BEDTIME September 04, 2022 12:00am 24 hr mirabegron 25 mg extended release oral tablet (20 sources) beta3-Adrenergi c Agonist Start: 09-04-2022 take 1 tablet by mouth once daily Mirabegron (Myrbetriq) 25 mg tablet extended release 24 hr Active 25 mg PO DAILY September 04, 2022 12:00am Ethel Wharton Extract (20 sources) Start: 07-24-2016 Ethel Wharton Ext ract Active 5 DRP PO DAILY July 24, 2016 8:58am Start: 07-24-2016 End: 09-04-2022 Ethel Wharton Extract Discontin ued 5 NMA PO DAILY July 24, 2016 12:00am September 04, 2022 10:51am Start: 07-24-2016 End: 09-04-2022 Ethel Wharton Extract Discontin ued 5 DRP PO DAILY July 23, 2016 11:00pm September 04, 2022 9:51am Start: 07-24-2016 End: 09-04-2022 Ethel Wharton Extract Discontin ued 5 DRP PO DAILY July 24, 2016 12:00am September 04, 2022 10:51am Start: 07-24-2016 Ethel Wharton Ext ract Active 5 DRP PO DAILY July 23, 2016 11:00pm Start: 07-24-2016 Ethel Wharton Ext ract Active 5 DRP PO DAILY July 24, 2016 12:00am pimavanserin 34 mg oral capsule (9 sources) Atypical Antipsychotic Start: 10-08-2024 take 1 capsule by mouth once daily Pimavanserin (Nuplazid) 34 mg capsule Active 34 mg PO daily October 08, 2024 12:00am polyethylene glycol 3350 09402 mg powder for oral solution (20 sources) Osmotic Laxative Start: 09-04-2022 Polyethylene Glycol [...] 2022 12:00am rivastigmine 4.5 mg oral capsule (20 sources) Start: 09-04-2022 take 6 mg by [...] TWICE A DAY September 04, 2022 12:00am Lamo[place] Drink (20 sources) Start: 07-24-2016 [place] Blanca k Active 1 PACKET PO DAILY July 24, 2016 8:58am Start: 07-24-2016 End: 09-04-2022 [place] Drink Discontinued 1 NMA PO DAILY July 24, 2016 12:00am September 04, 2022 10:51am Start: 07-24-2016 End: 09-04-2022 [place] Drink Discontinued 1 PACKET PO DAILY July 23, 2016 11:00pm September 04, 2022 9:51am Start: 07-24-2016 End: 09-04-2022 [place] Drink Discontinued 1 PACKET PO DAILY July 24, 2016 12:00am September 04, 2022 10:51am Start: 07-24-2016 [place] Drin k Active 1 PACKET PO DAILY July 23, 2016 11:00pm Start: 07-24-2016 [place] Drin k Active 1 PACKET PO DAILY [...] 2016 12:00am September 04, 2022 10:51am Problems Problem Classification Problem Date Documented Da te Episodic/Chronic Abdominal hernia (20 sources) Left inguinal hernia ; Translations: [Unilateral inguinal hernia, without obstruction or gangrene, not specified as recurrent] 01-11-2023 Episodic Cardiac dysrhythmias (20 sources) Cardiac arrhythmia; Translations: [Cardiac arrhythmia, unspecified] Onset: 10-08-2024 05-21-2013 Chronic Chronic kidney disease (20 sources) Chronic kidney disease stage 3; Translations: [...] and replacement of a hemisheild graft @ [facility] 11/21/05 Malaise and fatigue (1 source) Other fatigue; Translations: [Other fatigue] Onset: 12-01-2024 Episodic Nonspecific chest pain (20 sources) Chest pain; Translations: [Chest pain, unspecified] 09-04-2022 Episodic Osteoarthritis (20 sources) Chronic osteoarthritis; Translations: [Unspecified osteoarthritis, unspecified site] 05-21-2013 Chronic Other circulatory disease (20 sources) H/O: major vascular surgery; Translations: [Presence of other vascular implants and grafts] Onset: 11-11-2005 08-23-2022 Chronic Comment on above: resection of aneurys m of ascending aorta and replacement of a hemisheild graft @ [facility] 11/21/05 Other nervous system disorders (20 [...] and collapse] 04-11-2022 Episodic Unclassified (1 source) Low back pain, unspecified; Translations: [Low back pain, unspecified] Onset: 12-29-2024 Unclassified (1 source) Chronic atrial fibrillation, unspecified; Translations: [Chronic atrial fibrillation, unspecified] Onset: 06-13-2024 Results Test Name Value Interpretation Reference Range Facility Bilirubin Test strip Ql (U)O rdered By: Guilherme Butt on 12-23-2024 Bilirubin Ql (U) Negative Negative [facility] Ketones Test strip Ql (U)Ord ered By: Guilherme Butt on 12-23-2024 Ketones Ql (U) Negative Negative [facility] Microscopic analysis of urin e for red blood cells (RBC)Ordered By: Guilherme Butt on 12-23-2024 Microscopic analysis of urine for red blood cells (RBC) 0 SEEN /hpf 0-5 [facility] Mucus LM Ql (Urine sed)Order ed By: Guilherme Butt on 12-23-2024 Mucus Ql (Urine sed) 0 SEEN /hpf [facility] Nitrite Test strip Ql (U)Ord ered By: Guilherme Butt on 12-23-2024 Nitrite Ql (U) Negative Negative [facility] Protein Test strip Ql (U)Ord ered By: Guilherme Butt on 12-23-2024 Protein Ql (U) 15 mg/dl High Negative [facility] Squamous epithelial cells de tection in urine sediment by light microscopyOrdered By: Guilherme Butt on 12-23-2024 Epithelial cells.squamous LM Ql (Urine sed) 0 SEEN /hpf 0-5 [facility] Urine clarityOrdered By: Jamaal Butt on 12-23-2024 Clarity (U) Clear Clear [facility] Urine color determinationOrd ered By: Guilherme Butt on 12-23-2024 Color (U) Yellow Yellow [facility] Urine cultureOrdered By: Jamaal Butt on 12-23-2024 Bacteria identified Cx Nom (U) Positive Abnormal [facility] Urine glucose detectionOrder ed By: Guilherme Butt on 12-23-2024 Glucose Ql (U) Normal mg/dl Normal [facility] Urine leukocyte esterase det ection by dipstickOrdered By: Guilherme Butt on 12-23-2024 Leukocyte esterase Test strip Ql (U) 25 /ul High Negative [facility] Urine pHOrdered By: Juan Butt on 12-23-2024 pH (U) 7.0 [pH] 5.0 - 8.0 [facility] Urine sediment bacteria coun t by microscopy (number/high power field)Ordered By: Guilherme Butt on 12-23-2024 Bacteria LM.HPF (Urine sed) [#/Area] 0 /[HPF] None Seen [facility] Urine specific gravity measu rementOrdered By: Guilherme Butt on 12-23-2024 Specific gravity (U) [Rel density] 1.010 1.002-1.030 [facility] Urine urobilinogen measureme ntOrdered By: Guilherme Butt on 12-23-2024 Urobilinogen Ql (U) Normal mg/dl Normal [facility] White blood cell countOrdere d By: Guilherme Butt on 12-23-2024 White blood cell count 0-5 SEEN /hpf 0-5 [facility] Anion gap in Serum or Plasma Ordered By: Guilherme Butt on 12-19-2024 Anion gap [Moles/Vol] 9 mmol/L 5-15 [facility] BUN/creatinine ratioOrdered By: Guilherme Butt on 12-19-2024 Urea nitrogen/Creatinine [Mass ratio] 29.6 mg/mg High 10-20 [facility] Carbon dioxide, total [Moles /volume] in Central venous bloodOrdered By: Guilherme Butt on 12-19-2024 CO2 [Moles/Vol] 27.2 mmol/L 21.0-32.0 [facility] Chloride assayOrdered By: Roselia Butt on 12-19-2024 Chloride [Moles/Vol] 103 mmol/L 98-108 [facility] Erythrocyte distribution wid th ratioOrdered By: Guilherme Butt on 12-19-2024 Erythrocyte distribution width (RBC) [Ratio] 12.6 % 11.6-14.6 [facility] Erythrocyte distribution wid th standard deviationOrdered By: Guilherme Butt on 12-19-2024 Erythrocyte distribution width (RBC) [Ratio] 44.9 fl High 35.1-43.9 [facility] Glomerular filtration rate ( GFR) estimation/1.73 sq m using serum, plasma, or whole bOrdered By: Guilherme Butt on 12-19-2024 GFR/1.73 sq M.predicted among non-blacks MDRD (S/P/Bld) [Vol rate/Area] 78 mL/min/{1.73_m2} >60 [facility] Comment on above: mL/min/1.73m2 CKD-EP I Creatinine Equation (2020) Hematocrit Auto (Bld) [Volum e fraction]Ordered By: Guilherme Butt on 12-19-2024 Hematocrit (Bld) [Volume fraction] 39.3 % Low 40-54 [facility] Hemoglobin measurementOrdere d By: Guilherme Butt on 12-19-2024 Hemoglobin (Bld) [Mass/Vol] 13.1 g/dL 13.0-16.5 [facility] MCV (mean corpuscular volume ) determinationOrdered By: Guilherme Butt on 12-19-2024 MCV (RBC) [Entitic vol] 96.8 fL High 80-94 [facility] Mean corpuscular hemoglobin (MCH) determinationOrdered By: Guilherme Butt on 12-19-2024 MCH (RBC) [Entitic mass] 32.3 pg High 27.0-32.0 [facility] Mean corpuscular hemoglobin concentration (MCHC) determinationOrdered By: Guilherme Butt on 12-19-2024 MCHC (RBC) [Mass/Vol] 33.3 g/dL 32-36 [facility] Mean platelet volume determi nationOrdered By: Guilherme Butt on 12-19-2024 Platelet mean volume (Bld) [Entitic vol] 9.0 fL 6.2-12.0 [facility] Platelet countOrdered By: Roselia Butt on 12-19-2024 Platelets (Bld) [#/Vol] 168 10*3/uL 150-450 [facility] Potassium measurement (mass/ volume)Ordered By: Guilherme Butt on 12-19-2024 Potassium (Unsp spec) [Mass/Vol] 4.4 mmol/L 3.3-5.1 [facility] RBC Auto (Bld) [#/Vol]Ordere d By: Guilherme Butt on 12-19-2024 RBC (Bld) [#/Vol] 4.06 10*6/uL Low 4.6-6.2 [facility] Serum creatinine measurement (mass/volume)Ordered By: Guilherme Butt on 12-19-2024 Creatinine [Mass/Vol] 0.99 mg/dL 0.70-1.20 [facility] Serum glucose measurement (m ass/volume)Ordered By: Guilherme Butt on 12-19-2024 Glucose [Mass/Vol] 88 mg/dL 70-99 [facility] Serum or plasma calcium frashad urement (mass/volume)Ordered By: Guilherme Butt on 12-19-2024 Calcium [Mass/Vol] 9.2 mg/dL 7.6-11.0 [facility] Serum or plasma urea nitroge n measurement (mass/volume)Ordered By: Guilherme Butt on 12-19-2024 Urea nitrogen [Mass/Vol] 29 mg/dL High 4-19 [facility] Sodium levelOrdered By: [facility] anne Butt on 12-19-2024 Sodium [Moles/Vol] 139 mmol/L 133-145 [facility] White blood cell (WBC) count Ordered By: kieranchesapeakedmitri Butt on 12-19-2024 WBC (Bld) [#/Vol] 4.7 10*3/uL 4.4-11.0 [facility] Echo Completeon 12-12-2024 Echo Complete [facility] [address] [place] [address] Echo Complete 12/12/24 1410 MR#: [id number] Acct: [id number] Name: IGOR CRUZ Rep #: [id number] : 1945 [id number] From: Mike Poe MD Attending Dr: Dr. Dwain Yen MD Status: [facility] CLI Ordering Dr: Dwain Yen MD Date: 12/12/24 Location: [facility] Sex: M C Admitted: Reason For Study [...] Yen Performed By: Marbella Oropeza RCS 12/12/24 1649 Date Mike Poe MD CC: Dr. Dwain Yen MD; Dr. Guilherme Butt MD Date Dictated: 12/12/24 1410 Date Transcribed: 12/12/241648 Gaggerman: Signed Normal [facility] Echocardiogram study reportO rdered By: Mike Poe on 12-12-2024 Study report [facility] [address] [place] [address] Echo Complete 12/12/24 1410 MR#: [id number] Acct: [id number] Name: IGOR CRUZ Rep #:[id number] : 1945 [id number] From: Mike Manuel Attending Dr: Dr. Dwain Yen MD Status: [facility] CLI Ordering Dr: Dwain Yen MD Date: Location: [facility] Sex: M C Admitted: Reason For Study [...] __ Ordering Physician: Dwain Yen Referring Physician: Farshad, Dwain Performed By: Marbella Oropeza RCS 12/12/241648 Date _ Mike Poe MD CC: Dr. Dwain Yen MD; Dr. Guilherme Butt MD ~ Date Dictated: 12/12/24 1410 Date Transcribed: 12/12/241648 Gaggerman: Signed [facility] Work Phone: Absolute lymphocyte countOrd ered By: Guilherme Butt on 11-21-2024 Lymphocytes Auto (Unsp spec) [#/Vol] 1.17 10*3/uL 0.83-4.51 [facility] Absolute neutrophil countOrd ered By: Guilherme Butt on 11-21-2024 Neutrophils (Bld) [#/Vol] 3.2 10*3/uL 2.0-7.7 [facility] Anion gap in Serum or Plasma Ordered By: Guilherme Butt on 11-21-2024 Anion gap [Moles/Vol] 11 mmol/L 5-15 [facility] Automated lymphocyte count a s percentage of total leukocytesOrdered By: Guilherme Butt on 11-21-2024 Lymphocytes/100 WBC Auto (Unsp spec) 23.5 % 19-41 [facility] BUN/creatinine ratioOrdered By: Guilherme Butt on 11-21-2024 Urea nitrogen/Creatinine [Mass ratio] 24.5 mg/mg High 10-20 [facility] Basophil percentageOrdered B y: Guilherme Butt on 11-21-2024 Basophils/100 WBC (Bld) 0.6 % 0-1 [facility] Bilirubin, totalOrdered By: Guilherme Butt on 11-21-2024 Bilirubin [Mass/Vol] 0.38 mg/dL 0.00-1.30 [facility] Carbon dioxide, total [Moles /volume] in Central venous bloodOrdered By: Guilherme Butt on 11-21-2024 CO2 [Moles/Vol] 24.6 mmol/L 21.0-32.0 [facility] Chloride assayOrdered By: Roselia cristeladmitri Branhammarianrina on 11-21-2024 Chloride [Moles/Vol] 106 mmol/L 98-108 [facility] Eosinophil percentageOrdered By: Roseliakieranalfredodmitri Branhammarianrina 11-21-2024 Eosinophils/100 WBC (Bld) 2.2 % 0-5 [facility] Erythrocyte distribution wid th ratioOrdered By: kierananne Yonasmarianrina on 11-21-2024 Erythrocyte distribution width (RBC) [Ratio] 12.9 % 11.6-14.6 [facility] Erythrocyte distribution wid th standard deviationOrdered By: kieranchesapeakedmitri Branhammarianrina on 11-21-2024 Erythrocyte distribution width (RBC) [Ratio] 45.9 fl High 35.1-43.9 [facility] Glomerular filtration rate ( GFR) estimation/1.73 sq m using serum, plasma, or whole bOrdered By: Guilherme Butt on 11-21-2024 GFR/1.73 sq M.predicted among non-blacks MDRD (S/P/Bld) [Vol rate/Area] 73 mL/min/{1.73_m2} >60 [facility] Comment on above: mL/min/1.73m2 CKD-EP I Creatinine Equation (2020) Hematocrit Auto (Bld) [Volum e fraction]Ordered By: Guilherme Butt 11-21-2024 Hematocrit (Bld) [Volume fraction] 39.4 % Low 40-54 [facility] Hemoglobin measurementOrdere d By: Kellyalfredodmitri Branhammarianrina on 11-21-2024 Hemoglobin (Bld) [Mass/Vol] 13.1 g/dL 13.0-16.5 [facility] Immature granulocytes/100 WB C Auto (Bld)Ordered By: Guilherme Butt on 11-21-2024 Immature granulocytes/100 WBC (Bld) 0.400 % 0.0-0.9 [facility] Comment on above: IG% - Immature Granu locytes (promyelocytes, myelocytes and metamyelocytes) > 1% indicates that a LEFT SHIFT is Present. Laboratory - Chemistry and C hemistry - challengeOrdered By: Guilherme Butt on 11-21-2024 AST [Catalytic activity/Vol] 19 U/L <38 [facility] MCV (mean corpuscular volume ) determinationOrdered By: Guilherme Butt on 11-21-2024 MCV (RBC) [Entitic vol] 97.5 fL High 80-94 [facility] Mean corpuscular hemoglobin (MCH) determinationOrdered By: Guilherme Butt on 11-21-2024 MCH (RBC) [Entitic mass] 32.4 pg High 27.0-32.0 [facility] Mean corpuscular hemoglobin concentration (MCHC) determinationOrdered By: Guilherme Butt on 11-21-2024 MCHC (RBC) [Mass/Vol] 33.2 g/dL 32-36 [facility] Mean platelet volume determi nationOrdered By: Guilherme Butt on 11-21-2024 Platelet mean volume (Bld) [Entitic vol] 9.5 fL 6.2-12.0 [facility] Monocyte percentageOrdered B y: Guilherme Butt on 11-21-2024 Monocytes/100 WBC (Bld) 8.0 % 0-10 [facility] Neutrophil percentageOrdered By: Guilherme Butt on 11-21-2024 Neutrophils/100 WBC (Bld) 65.3 % 47-70 [facility] Nucleated red blood cell per centageOrdered By: Guilherme Butt on 11-21-2024 Nucleated RBC/100 WBC (Bld) [Ratio] 0 % 0-5 [facility] Platelet countOrdered By: Roselia kierananne Butt on 11-21-2024 Platelets (Bld) [#/Vol] 185 10*3/uL 150-450 [facility] Potassium measurement (mass/ volume)Ordered By: Guilherme Butt on 11-21-2024 Potassium (Unsp spec) [Mass/Vol] 4.5 mmol/L 3.3-5.1 [facility] RBC Auto (Bld) [#/Vol]Ordere d By: Guilherme Butt on 11-21-2024 RBC (Bld) [#/Vol] 4.04 10*6/uL Low 4.6-6.2 [facility] Serum creatinine measurement (mass/volume)Ordered By: Guilherme Butt on 11-21-2024 Creatinine [Mass/Vol] 1.04 mg/dL 0.70-1.20 [facility] Serum globulin measurementOr dered By: Guilherme Butt on 11-21-2024 Globulin (S) [Mass/Vol] 2.4 g/dL 2.2-4.[address] [facility] Serum glucose measurement (m ass/volume)Ordered By: Guilherme Butt on 11-21-2024 Glucose [Mass/Vol] 142 mg/dL High 70-99 [facility] Serum or plasma alanine aly otransferase (ALT) measurementOrdered By: Guilherme Butt on 11-21-2024 ALT [Catalytic activity/Vol] 8 U/L <47 [facility] Serum or plasma albumin farshad urement (mass/volume)Ordered By: Guilherme Butt on 11-21-2024 Albumin [Mass/Vol] 4.1 g/dL 3.4-4.8 [facility] Serum or plasma albumin/glob ulin mass ratioOrdered By: Guilherme Butt on 11-21-2024 Albumin/Globulin [Mass ratio] 1.8 {ratio} 0.9-2.4 [facility] Serum or plasma alkaline jean-claude sphatase measurementOrdered By: Guilherme Butt on 11-21-2024 ALP [Catalytic activity/Vol] 109 U/L 40-129 [facility] Serum or plasma calcium farshad urement (mass/volume)Ordered By: Guilherme Butt on 11-21-2024 Calcium [Mass/Vol] 9.2 mg/dL 7.6-11.0 [facility] Serum or plasma urea nitroge n measurement (mass/volume)Ordered By: Guilherme Butt on 11-21-2024 Urea nitrogen [Mass/Vol] 26 mg/dL High 4-19 [facility] Sodium levelOrdered By: Kelly Butt on 11-21-2024 Sodium [Moles/Vol] 141 mmol/L 133-145 [facility] T4 freeOrdered By: Guilherme Butt on 11-21-2024 Free T4 [Mass/Vol] 1.10 ng/dL 0.76-1.46 [facility] TSH DL <= 0.005 mIU/L QnOrde red By: Guilherme Yonasjack on 11-21-2024 TSH Qn 3.090 uIU/mL 0.300-4.200 [facility] Total proteinOrdered By: Jamaal shireen Yonasmarianrina on 11-21-2024 Protein [Mass/Vol] 6.5 g/dL 5.9-8.4 [facility] White blood cell (WBC) count Ordered By: Guilherme Butt on 11-21-2024 WBC (Bld) [#/Vol] 5.0 10*3/uL 4.4-11.0 [facility] Anion gap in Serum or Plasma Ordered By: Cecy Gray on 10-24-2024 Anion gap [Moles/Vol] 9 mmol/L 5-15 [facility] BUN/creatinine ratioOrdered By: Cecy Gray on 10-24-2024 Urea nitrogen/Creatinine [Mass ratio] 25.6 mg/mg High 10-20 [facility] Carbon dioxide, total [Moles /volume] in Central venous bloodOrdered By: Cecy Gray on 10-24-2024 CO2 [Moles/Vol] 29.3 mmol/L 21.0-32.0 [facility] Chloride assayOrdered By: Roderick Gray on 10-24-2024 Chloride [Moles/Vol] 104 mmol/L 98-108 [facility] Erythrocyte distribution wid th ratioOrdered By: Cecy Gray on 10-24-2024 Erythrocyte distribution width (RBC) [Ratio] 12.8 % 11.6-14.6 [facility] Erythrocyte distribution wid th standard deviationOrdered By: Cecy Gray on 10-24-2024 Erythrocyte distribution width (RBC) [Ratio] 45.1 fl High 35.1-43.9 [facility] Glomerular filtration rate ( GFR) estimation/1.73 sq m using serum, plasma, or whole bOrdered By: Cecy Gray on 10-24-2024 GFR/1.73 sq M.predicted among non-blacks MDRD (S/P/Bld) [Vol rate/Area] 84 mL/min/{1.73_m2} >60 [facility] Comment on above: mL/min/1.73m2 CKD-EP I Creatinine Equation (2020) Hematocrit Auto (Bld) [Volum e fraction]Ordered By: Cecy Gray on 10-24-2024 Hematocrit (Bld) [Volume fraction] 39.4 % Low 40-54 [facility] Hemoglobin measurementOrdere d By: Cecy Gray on 10-24-2024 Hemoglobin (Bld) [Mass/Vol] 13.2 g/dL 13.0-16.5 [facility] MCV (mean corpuscular volume ) determinationOrdered By: Cecy Gray on 10-24-2024 MCV (RBC) [Entitic vol] 96.3 fL High 80-94 [facility] Mean corpuscular hemoglobin (MCH) determinationOrdered By: Cecy Gray on 10-24-2024 MCH (RBC) [Entitic mass] 32.3 pg High 27.0-32.0 [facility] Mean corpuscular hemoglobin concentration (MCHC) determinationOrdered By: Cecy Gray on 10-24-2024 MCHC (RBC) [Mass/Vol] 33.5 g/dL 32-36 [facility] Mean platelet volume determi nationOrdered By: Cecy Gray on 10-24-2024 Platelet mean volume (Bld) [Entitic vol] 9.1 fL 6.2-12.0 [facility] Platelet countOrdered By: Roderick Gray on 10-24-2024 Platelets (Bld) [#/Vol] 200 10*3/uL 150-450 [facility] Potassium measurement (mass/ volume)Ordered By: Cecy Gray on 10-24-2024 Potassium (Unsp spec) [Mass/Vol] 4.5 mmol/L 3.3-5.1 [facility] RBC Auto (Bld) [#/Vol]Ordere d By: Cecy Gray on 10-24-2024 RBC (Bld) [#/Vol] 4.09 10*6/uL Low 4.6-6.2 [facility] Serum creatinine measurement (mass/volume)Ordered By: Cecy Gray on 10-24-2024 Creatinine [Mass/Vol] 0.93 mg/dL 0.70-1.20 [facility] Serum glucose measurement (m ass/volume)Ordered By: Cecy Gray on 10-24-2024 Glucose [Mass/Vol] 85 mg/dL 70-99 [facility] Serum or plasma calcium farshad urement (mass/volume)Ordered By: Cecy Gray on 10-24-2024 Calcium [Mass/Vol] 9.3 mg/dL 7.6-11.0 [facility] Serum or plasma urea nitroge n measurement (mass/volume)Ordered By: Cecy Gray on 10-24-2024 Urea nitrogen [Mass/Vol] 24 mg/dL High 4-19 [facility] Sodium levelOrdered By: Mayi Gray on 10-24-2024 Sodium [Moles/Vol] 142 mmol/L 133-145 [facility] White blood cell (WBC) count Ordered By: Cecy Gray on 10-24-2024 WBC (Bld) [#/Vol] 4.7 10*3/uL 4.4-11.0 [facility] Cardiology Visit Reporton Cardiology Visit Report [facility] [address] [place] [address]. [address] [place] [address] OFFICE VISIT Date of Service: 10/08/24 MR#: [id number] Acct: [id number] Name: IGOR CRUZ Rep #: [id number] : 1945 Provider: Dr. Dawin Yen MD Age/Sex: 79/M Location: [facility] [place] Status: Signed HPI HPI History of [...] PND. Occasional ankle edema. 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 Normal [facility] Anion gap in Serum or Plasma Ordered By: Guilherme Butt on 09-19-2024 Anion gap [Moles/Vol] 9 mmol/L 5-15 [facility] BUN/creatinine ratioOrdered By: Guilherme Butt on 09-19-2024 Urea nitrogen/Creatinine [Mass ratio] 26.1 mg/mg High 10-20 [facility] Carbon dioxide, total [Moles /volume] in Central venous bloodOrdered By: Guilherme Butt on 09-19-2024 CO2 [Moles/Vol] 28.7 mmol/L 21.0-32.0 [facility] Chloride assayOrdered By: Roselia Butt on 09-19-2024 Chloride [Moles/Vol] 103 mmol/L 98-108 [facility] Erythrocyte distribution wid th ratioOrdered By: Guilherme Butt on 09-19-2024 Erythrocyte distribution width (RBC) [Ratio] 12.7 % 11.6-14.6 [facility] Erythrocyte distribution wid th standard deviationOrdered By: Guilherme Butt on 09-19-2024 Erythrocyte distribution width (RBC) [Ratio] 44.8 fl High 35.1-43.9 [facility] Glomerular filtration rate ( GFR) estimation/1.73 sq m using serum, plasma, or whole bOrdered By: Guilherme Butt on 09-19-2024 GFR/1.73 sq M.predicted among non-blacks MDRD (S/P/Bld) [Vol rate/Area] 87 mL/min/{1.73_m2} >60 [facility] Comment on above: mL/min/1.73m2 CKD-EP I Creatinine Equation (2020) Hematocrit Auto (Bld) [Volum e fraction]Ordered By: Guilherme Butt on 09-19-2024 Hematocrit (Bld) [Volume fraction] 39.4 % Low 40-54 [facility] Hemoglobin measurementOrdere d By: Guilherme Butt on 09-19-2024 Hemoglobin (Bld) [Mass/Vol] 13.2 g/dL 13.0-16.5 [facility] MCV (mean corpuscular volume ) determinationOrdered By: Guilherme Butt on 09-19-2024 MCV (RBC) [Entitic vol] 96.3 fL High 80-94 [facility] Mean corpuscular hemoglobin (MCH) determinationOrdered By: Guilherme Butt on 09-19-2024 MCH (RBC) [Entitic mass] 32.3 pg High 27.0-32.0 [facility] Mean corpuscular hemoglobin concentration (MCHC) determinationOrdered By: Guilherme Butt on 09-19-2024 MCHC (RBC) [Mass/Vol] 33.5 g/dL 32-36 [facility] Mean platelet volume determi nationOrdered By: Guilherme Butt on 09-19-2024 Platelet mean volume (Bld) [Entitic vol] 9.0 fL 6.2-12.0 [facility] Platelet countOrdered By: Roselia Butt on 09-19-2024 Platelets (Bld) [#/Vol] 178 10*3/uL 150-450 [facility] Potassium measurement (mass/ volume)Ordered By: Guilherme Butt on 09-19-2024 Potassium (Unsp spec) [Mass/Vol] 4.6 mmol/L 3.3-5.1 [facility] RBC Auto (Bld) [#/Vol]Ordere d By: Guilherme Butt on 09-19-2024 RBC (Bld) [#/Vol] 4.09 10*6/uL Low 4.6-6.2 [facility] Serum creatinine measurement (mass/volume)Ordered By: Guilherme Butt on 09-19-2024 Creatinine [Mass/Vol] 0.89 mg/dL 0.70-1.20 [facility] Serum glucose measurement (m ass/volume)Ordered By: Guilherme Butt on 09-19-2024 Glucose [Mass/Vol] 86 mg/dL 70-99 [facility] Serum or plasma calcium fasrhad urement (mass/volume)Ordered By: Guilherme Butt on 09-19-2024 Calcium [Mass/Vol] 9.1 mg/dL 7.6-11.0 [facility] Serum or plasma urea nitroge n measurement (mass/volume)Ordered By: Guilherme Butt on 09-19-2024 Urea nitrogen [Mass/Vol] 23 mg/dL High 4-19 [facility] Sodium levelOrdered By: Kelly yeerodolfo Yonasmarianrina on 09-19-2024 Sodium [Moles/Vol] 141 mmol/L 133-145 [facility] White blood cell (WBC) count Ordered By: Guilherme Butt on 09-19-2024 WBC (Bld) [#/Vol] 4.1 10*3/uL Low 4.4-11.0 [facility] Anion gap in Serum or Plasma Ordered By: Cecy Gray on 08-22-2024 Anion gap [Moles/Vol] 10 mmol/L 5-15 [facility] BUN/creatinine ratioOrdered By: Cecy Gray on 08-22-2024 Urea nitrogen/Creatinine [Mass ratio] 24.8 mg/mg High 10-20 [facility] Carbon dioxide, total [Moles /volume] in Central venous bloodOrdered By: Cecy Gray on 08-22-2024 CO2 [Moles/Vol] 26.8 mmol/L 21.0-32.0 [facility] Chloride assayOrdered By: Roderick Gray on 08-22-2024 Chloride [Moles/Vol] 103 mmol/L 98-108 [facility] Erythrocyte distribution wid th ratioOrdered By: Cecy Gray on 08-22-2024 Erythrocyte distribution width (RBC) [Ratio] 12.6 % 11.6-14.6 [facility] Erythrocyte distribution wid th standard deviationOrdered By: Cecy Gray on 08-22-2024 Erythrocyte distribution width (RBC) [Ratio] 44.4 fl High 35.1-43.9 [facility] Glomerular filtration rate ( GFR) estimation/1.73 sq m using serum, plasma, or whole bOrdered By: Cecy Gray on 08-22-2024 GFR/1.73 sq M.predicted among non-blacks MDRD (S/P/Bld) [Vol rate/Area] 74 mL/min/{1.73_m2} >60 [facility] Comment on above: mL/min/1.73m2 CKD-EP I Creatinine Equation (2020) Hematocrit Auto (Bld) [Volum e fraction]Ordered By: Cecy Gray on 08-22-2024 Hematocrit (Bld) [Volume fraction] 38.2 % Low 40-54 [facility] Hemoglobin measurementOrdere d By: Cecy Gray on 08-22-2024 Hemoglobin (Bld) [Mass/Vol] 13.0 g/dL 13.0-16.5 [facility] MCV (mean corpuscular volume ) determinationOrdered By: Cecy Gray on 08-22-2024 MCV (RBC) [Entitic vol] 95.5 fL High 80-94 [facility] Mean corpuscular hemoglobin (MCH) determinationOrdered By: Cecy Gray on 08-22-2024 MCH (RBC) [Entitic mass] 32.5 pg High 27.0-32.0 [facility] Mean corpuscular hemoglobin concentration (MCHC) determinationOrdered By: Cecy Gray on 08-22-2024 MCHC (RBC) [Mass/Vol] 34.0 g/dL 32-36 [facility] Mean platelet volume determi nationOrdered By: Cecy Gray on 08-22-2024 Platelet mean volume (Bld) [Entitic vol] 8.9 fL 6.2-12.0 [facility] Platelet countOrdered By: Roderick Gray on 08-22-2024 Platelets (Bld) [#/Vol] 169 10*3/uL 150-450 [facility] Potassium measurement (mass/ volume)Ordered By: Cecy Gray on 08-22-2024 Potassium (Unsp spec) [Mass/Vol] 4.5 mmol/L 3.3-5.1 [facility] RBC Auto (Bld) [#/Vol]Ordere d By: Cecy Gray on 08-22-2024 RBC (Bld) [#/Vol] 4.00 10*6/uL Low 4.6-6.2 [facility] Serum creatinine measurement (mass/volume)Ordered By: Cecy Gray on 08-22-2024 Creatinine [Mass/Vol] 1.03 mg/dL 0.70-1.20 [facility] Serum glucose measurement (m ass/volume)Ordered By: Cecy Gray on 08-22-2024 Glucose [Mass/Vol] 83 mg/dL 70-99 [facility] Serum or plasma calcium farshad urement (mass/volume)Ordered By: Cecy Gray on 08-22-2024 Calcium [Mass/Vol] 9.0 mg/dL 7.6-11.0 [facility] Serum or plasma urea nitroge n measurement (mass/volume)Ordered By: Cecy Gray on 08-22-2024 Urea nitrogen [Mass/Vol] 26 mg/dL High 4-19 [facility] Sodium levelOrdered By: Mayi Gray on 08-22-2024 Sodium [Moles/Vol] 140 mmol/L 133-145 [facility] White blood cell (WBC) count Ordered By: Cecy Gray on 08-22-2024 WBC (Bld) [#/Vol] 4.0 10*3/uL Low 4.4-11.0 [facility] Anion gap in Serum or Plasma Ordered By: Guilherme Butt on 07-25-2024 Anion gap [Moles/Vol] 10 mmol/L 5-15 [facility] BUN/creatinine ratioOrdered By: Guilherme Butt on 07-25-2024 Urea nitrogen/Creatinine [Mass ratio] 28.4 mg/mg High 10-20 [facility] Carbon dioxide, total [Moles /volume] in Central venous bloodOrdered By: Guilherme Butt on 07-25-2024 CO2 [Moles/Vol] 26.7 mmol/L 21.0-32.0 [facility] Chloride assayOrdered By: Roselia Butt on 07-25-2024 Chloride [Moles/Vol] 105 mmol/L 98-108 [facility] Erythrocyte distribution wid th (RBC) [Ratio]Ordered By: Guilherme Butt on 07-25-2024 Erythrocyte distribution width (RBC) [Entitic vol] 44.6 fL High 35.1-43.9 [facility] Erythrocyte distribution wid th ratioOrdered By: Guilherme Butt on 07-25-2024 Erythrocyte distribution width (RBC) [Ratio] 12.8 % 11.6-14.6 [facility] Erythrocyte distribution wid th standard deviationOrdered By: Guilherme Butt on 07-25-2024 Erythrocyte distribution width (RBC) [Ratio] 44.6 fl High 35.1-43.9 [facility] GFR/1.73 sq M.predicted jane g non-blacks MDRD (S/P/Bld) [Vol rate/Area]Ordered By: Guilherme Butt on 07-25-2024 Estimated GFR (MDRD) Non-Af Amer 85 >60 [facility] Comment on above: mL/min/1.73m2 CKD-EP I Creatinine Equation (2020) Glomerular filtration rate ( GFR) estimation/1.73 sq m using serum, plasma, or whole bOrdered By: Guilherme Butt on 07-25-2024 GFR/1.73 sq M.predicted among non-blacks MDRD (S/P/Bld) [Vol rate/Area] 85 mL/min/{1.73_m2} >60 [facility] Comment on above: mL/min/1.73m2 CKD-EP I Creatinine Equation (2020) Hematocrit Auto (Bld) [Volum e fraction]Ordered By: Guilherme Butt on 07-25-2024 Hematocrit (Bld) [Volume fraction] 38.4 % Low 40-54 [facility] Hemoglobin measurementOrdere d By: Guilherme Butt on 07-25-2024 Hemoglobin (Bld) [Mass/Vol] 13.1 g/dL 13.0-16.5 [facility] MCV (mean corpuscular volume ) determinationOrdered By: Guilherme Butt on 07-25-2024 MCV (RBC) [Entitic vol] 94.8 fL High 80-94 [facility] Mean corpuscular hemoglobin (MCH) determinationOrdered By: Guilherme Butt 07-25-2024 MCH (RBC) [Entitic mass] 32.3 pg High 27.0-32.0 [facility] Mean corpuscular hemoglobin concentration (MCHC) determinationOrdered By: Guilherme Butt 07-25-2024 MCHC (RBC) [Mass/Vol] 34.1 g/dL 32-36 [facility] Mean platelet volume determi nationOrdered By: Guilherme Butt on 07-25-2024 Platelet mean volume (Bld) [Entitic vol] 9.1 fL 6.2-12.0 [facility] Platelet countOrdered By: Roselia Butt on 07-25-2024 Platelets (Bld) [#/Vol] 174 10*3/uL 150-450 [facility] Potassium (Unsp spec) [Mass/ Vol]Ordered By: Guilherme Butt on 07-25-2024 Potassium [Moles/Vol] 4.5 mmol/L 3.3-5.1 [facility] Potassium measurement (mass/ volume)Ordered By: Guilherme Butt on 07-25-2024 Potassium (Unsp spec) [Mass/Vol] 4.5 mmol/L 3.3-5.1 [facility] RBC Auto (Bld) [#/Vol]Ordere d By: Guilherme Butt on 07-25-2024 RBC (Bld) [#/Vol] 4.05 10*6/uL Low 4.6-6.2 [facility] Serum creatinine measurement (mass/volume)Ordered By: Guilherme Butt on 07-25-2024 Creatinine [Mass/Vol] 0.92 mg/dL 0.70-1.20 [facility] Serum glucose measurement (m ass/volume)Ordered By: Guilherme Butt on 07-25-2024 Glucose [Mass/Vol] 93 mg/dL 70-99 [facility] Serum or plasma calcium farshad urement (mass/volume)Ordered By: Guilherme Butt on 07-25-2024 Calcium [Mass/Vol] 9.2 mg/dL 7.6-11.0 [facility] Serum or plasma urea nitroge n measurement (mass/volume)Ordered By: Guilherme Butt on 07-25-2024 Urea nitrogen [Mass/Vol] 26 mg/dL High 4-19 [facility] Sodium levelOrdered By: Kelly Butt on 07-25-2024 Sodium [Moles/Vol] 141 mmol/L 133-145 [facility] White blood cell (WBC) count Ordered By: Guilherme Butt on 07-25-2024 WBC (Bld) [#/Vol] 4.5 10*3/uL 4.4-11.0 [facility] Blood urea nitrogen (BUN)/cr eatinine ratioOrdered By: Guilherme Butt on 06-27-2024 Urea nitrogen/Creatinine [Mass ratio] 31.6 mg/mg High 10-20 [facility] Carbon dioxide measurementOr dered By: Guilherme Butt on 06-27-2024 CO2 [Moles/Vol] 28.0 mmol/L 21.0-32.0 [facility] Chloride measurementOrdered By: Guilherme Butt on 06-27-2024 Chloride [Moles/Vol] 107 mmol/L 98-107 [facility] Erythrocyte distribution wid th (RBC) [Ratio]Ordered By: Guilherme Butt on 06-27-2024 Erythrocyte distribution width (RBC) [Entitic vol] 43.9 fL 35.1-43.9 [facility] Erythrocyte distribution wid th ratioOrdered By: Guilherme Butt on 06-27-2024 Erythrocyte distribution width (RBC) [Ratio] 12.6 % 11.6-14.6 [facility] Erythrocyte distribution wid th standard deviationOrdered By: Guilherme Butt on 06-27-2024 Erythrocyte distribution width (RBC) [Ratio] 43.9 fl 35.1-43.9 [facility] Estimated glomerular filtrat ion rate (GFR) AmericanOrdered By: Guilherme Butt on 06-27-2024 Estimated GFR (MDRD) Amer 99 mL/min >60 [facility] Comment on above: GFR Calc Glomerular filtration rate ( GFR) estimationOrdered By: Guilherme Butt on 06-27-2024 Estimated GFR (MDRD) Non-Af Amer 81 mL/min >60 [facility] Comment on above: Non- GFR Calc GFR/1.73 sq M.predicted among non-blacks MDRD (S/P/Bld) [Vol rate/Area] 81 mL/min/{1.73_m2} >60 [facility] Comment on above: Non- GFR Calc Glucose measurementOrdered B y: Guilherme Butt on 06-27-2024 Glucose [Mass/Vol] 88 mg/dL 74-106 [facility] Hematocrit Auto (Bld) [Volum e fraction]Ordered By: Guilherme Butt on 06-27-2024 Hematocrit (Bld) [Volume fraction] 37.5 % Low 40-54 [facility] Hemoglobin measurementOrdere d By: Guilherme Butt on 06-27-2024 Hemoglobin (Bld) [Mass/Vol] 12.7 g/dL Low 13.0-16.5 [facility] MCV (mean corpuscular volume ) determinationOrdered By: Guilherme Butt on 06-27-2024 MCV (RBC) [Entitic vol] 94.7 fL High 80-94 [facility] Mean corpuscular hemoglobin (MCH) determinationOrdered By: Guilherme Butt on 06-27-2024 MCH (RBC) [Entitic mass] 32.1 pg High 27.0-32.0 [facility] Mean corpuscular hemoglobin concentration (MCHC) determinationOrdered By: Guilherme Butt on 06-27-2024 MCHC (RBC) [Mass/Vol] 33.9 g/dL 32-36 [facility] Mean platelet volume determi nationOrdered By: Guilherme Butt on 06-27-2024 Platelet mean volume (Bld) [Entitic vol] 9.1 fL 6.2-12.0 [facility] Platelet countOrdered By: Roselia Butt on 06-27-2024 Platelets (Bld) [#/Vol] 173 10*3/uL 150-450 [facility] Potassium measurementOrdered By: Guilherme Butt on 06-27-2024 Potassium [Moles/Vol] 4.1 mmol/L 3.5-5.1 [facility] RBC Auto (Bld) [#/Vol]Ordere d By: Guilherme Butt on 06-27-2024 RBC (Bld) [#/Vol] 3.96 10*6/uL Low 4.6-6.2 [facility] Serum anion gap measurementO rdered By: Guilherme Butt on 06-27-2024 Anion gap [Moles/Vol] 6 mmol/L 5-15 [facility] Serum or plasma calcium farshad urement (mass/volume)Ordered By: Guilherme Butt on 06-27-2024 Calcium [Mass/Vol] 9.0 mg/dL 8.5-10.1 [facility] Serum or plasma creatinine m easurement (mass/volume)Ordered By: Guilherme Butt on 06-27-2024 Creatinine [Mass/Vol] 0.95 mg/dL 0.70-1.30 [facility] Comment on above: The validity of the calculated GFR & GFRAA in patients over 70 years has not been determined. Clinical correlation is essential. Serum or plasma urea nitroge n measurement (mass/volume)Ordered By: Guilherme Butt on 06-27-2024 Urea nitrogen [Mass/Vol] 30 mg/dL High 7-18 [facility] Sodium levelOrdered By: Kelly Butt on 06-27-2024 Sodium [Moles/Vol] 141 mmol/L 136-145 [facility] White blood cell (WBC) count Ordered By: Guilherme Butt on 06-27-2024 WBC (Bld) [#/Vol] 4.2 10*3/uL Low 4.4-11.0 [facility] Blood urea nitrogen (BUN)/cr eatinine ratioOrdered By: Guilherme Butt on 05-23-2024 Urea nitrogen/Creatinine [Mass ratio] 27.9 mg/mg High 10-20 [facility] Carbon dioxide measurementOr dered By: Guilherme Butt on 05-23-2024 CO2 [Moles/Vol] 32.0 mmol/L 21.0-32.0 [facility] Chloride measurementOrdered By: Guilherme Butt on 05-23-2024 Chloride [Moles/Vol] 105 mmol/L 98-107 [facility] Erythrocyte distribution wid th (RBC) [Ratio]Ordered By: Guilherme Butt on 05-23-2024 Erythrocyte distribution width (RBC) [Entitic vol] 44.6 fL High 35.1-43.9 [facility] Erythrocyte distribution wid th ratioOrdered By: Guilherme Butt on 05-23-2024 Erythrocyte distribution width (RBC) [Ratio] 12.7 % 11.6-14.6 [facility] Erythrocyte distribution wid th standard deviationOrdered By: Guilherme Butt on 05-23-2024 Erythrocyte distribution width (RBC) [Ratio] 44.6 fl High 35.1-43.9 [facility] Estimated glomerular filtrat ion rate (GFR) AmericanOrdered By: Guilherme Butt on 05-23-2024 Estimated GFR (MDRD) Amer 101 mL/min >60 [facility] Comment on above: GFR Calc Glomerular filtration rate ( GFR) estimationOrdered By: Guilherme Butt on 05-23-2024 Estimated GFR (MDRD) Non-Af Amer 83 mL/min >60 [facility] Comment on above: Non- GFR Calc GFR/1.73 sq M.predicted among non-blacks MDRD (S/P/Bld) [Vol rate/Area] 83 mL/min/{1.73_m2} >60 [facility] Comment on above: Non- GFR Calc Glucose measurementOrdered B y: Guilherme Butt on 05-23-2024 Glucose [Mass/Vol] 90 mg/dL 74-106 [facility] Hematocrit Auto (Bld) [Volum e fraction]Ordered By: Guilherme Butt on 05-23-2024 Hematocrit (Bld) [Volume fraction] 40.6 % 40-54 [facility] Hemoglobin measurementOrdere d By: Guilherme Butt on 05-23-2024 Hemoglobin (Bld) [Mass/Vol] 13.4 g/dL 13.0-16.5 [facility] MCV (mean corpuscular volume ) determinationOrdered By: Guilherme Butt on 05-23-2024 MCV (RBC) [Entitic vol] 95.8 fL High 80-94 [facility] Mean corpuscular hemoglobin (MCH) determinationOrdered By: Guilherme Butt on 05-23-2024 MCH (RBC) [Entitic mass] 31.6 pg 27.0-32.0 [facility] Mean corpuscular hemoglobin concentration (MCHC) determinationOrdered By: Guilherme Butt on 05-23-2024 MCHC (RBC) [Mass/Vol] 33.0 g/dL 32-36 [facility] Mean platelet volume determi nationOrdered By: Guilherme Butt on 05-23-2024 Platelet mean volume (Bld) [Entitic vol] 9.3 fL 6.2-12.0 [facility] Platelet countOrdered By: Roselia Butt on 05-23-2024 Platelets (Bld) [#/Vol] 181 10*3/uL 150-450 [facility] Potassium measurementOrdered By: Guilherme Butt on 05-23-2024 Potassium [Moles/Vol] 4.4 mmol/L 3.5-5.1 [facility] RBC Auto (Bld) [#/Vol]Ordere d By: Guilherme Butt on 05-23-2024 RBC (Bld) [#/Vol] 4.24 10*6/uL Low 4.6-6.2 [facility] Serum anion gap measurementO rdered By: Guilherme Butt on 05-23-2024 Anion gap [Moles/Vol] 2 mmol/L Low 5-15 [facility] Serum or plasma calcium farshad urement (mass/volume)Ordered By: Guilherme Butt on 05-23-2024 Calcium [Mass/Vol] 9.2 mg/dL 8.5-10.1 [facility] Serum or plasma creatinine m easurement (mass/volume)Ordered By: Guilherme Butt on 05-23-2024 Creatinine [Mass/Vol] 0.93 mg/dL 0.70-1.30 [facility] Comment on above: The validity of the calculated GFR & GFRAA in patients over 70 years has not been determined. Clinical correlation is essential. Serum or plasma urea nitroge n measurement (mass/volume)Ordered By: Guilherme Butt on 05-23-2024 Urea nitrogen [Mass/Vol] 26 mg/dL High 7-18 [facility] Sodium levelOrdered By: Kelly Branhamghe on 05-23-2024 Sodium [Moles/Vol] 138 mmol/L 136-145 [facility] White blood cell (WBC) count Ordered By: Guilherme Butt on 05-23-2024 WBC (Bld) [#/Vol] 4.7 10*3/uL 4.4-11.0 [facility] Blood urea nitrogen (BUN)/cr eatinine ratioOrdered By: Guilherme Butt on 04-25-2024 Urea nitrogen/Creatinine [Mass ratio] 28.1 mg/mg High 10-20 [facility] Carbon dioxide measurementOr dered By: Guilherme Butt on 04-25-2024 CO2 [Moles/Vol] 31.0 mmol/L 21.0-32.0 [facility] Chloride measurementOrdered By: Guilherme Butt on 04-25-2024 Chloride [Moles/Vol] 104 mmol/L 98-107 [facility] Erythrocyte distribution wid th (RBC) [Ratio]Ordered By: Guilherme Butt on 04-25-2024 Erythrocyte distribution width (RBC) [Entitic vol] 45.0 fL High 35.1-43.9 [facility] Erythrocyte distribution wid th ratioOrdered By: Guilherme Butt on 04-25-2024 Erythrocyte distribution width (RBC) [Ratio] 12.8 % 11.6-14.6 [facility] Estimated glomerular filtrat ion rate (GFR) AmericanOrdered By: Guilherme Butt on 04-25-2024 Estimated GFR (MDRD) Amer 93 mL/min >60 [facility] Comment on above: GFR Calc Glomerular filtration rate ( GFR) estimationOrdered By: Guilherme Butt on 04-25-2024 Estimated GFR (MDRD) Non-Af Amer 77 mL/min >60 [facility] Comment on above: Non- GFR Calc Glucose measurementOrdered B y: Guilherme Butt on 04-25-2024 Glucose [Mass/Vol] 125 mg/dL High 74-106 [facility] Comment on above: Fasting Glucose resu lt from 100 to 125 mg/dL suggests IMPAIRED HOMEOSTASIS per A.D.A. criteria. Hematocrit Auto (Bld) [Volum e fraction]Ordered By: Guilherme Butt on 04-25-2024 Hematocrit (Bld) [Volume fraction] 39.0 % Low 40-54 [facility] Hemoglobin measurementOrdere d By: Guilherme Butt on 04-25-2024 Hemoglobin (Bld) [Mass/Vol] 12.8 g/dL Low 13.0-16.5 [facility] MCV (mean corpuscular volume ) determinationOrdered By: Guilherme Butt on 04-25-2024 MCV (RBC) [Entitic vol] 95.8 fL High 80-94 [facility] Mean corpuscular hemoglobin (MCH) determinationOrdered By: Guilherme Butt on 04-25-2024 MCH (RBC) [Entitic mass] 31.4 pg 27.0-32.0 [facility] Mean corpuscular hemoglobin concentration (MCHC) determinationOrdered By: Guilherme Butt on 04-25-2024 MCHC (RBC) [Mass/Vol] 32.8 g/dL 32-36 [facility] Mean platelet volume determi nationOrdered By: Guilherme Butt on 04-25-2024 Platelet mean volume (Bld) [Entitic vol] 9.2 fL 6.2-12.0 [facility] Platelet countOrdered By: Roselia Butt on 04-25-2024 Platelets (Bld) [#/Vol] 176 10*3/uL 150-450 [facility] Potassium measurementOrdered By: Guilherme Butt on 04-25-2024 Potassium [Moles/Vol] 3.9 mmol/L 3.5-5.1 [facility] RBC Auto (Bld) [#/Vol]Ordere d By: Guilherme Butt on 04-25-2024 RBC (Bld) [#/Vol] 4.07 10*6/uL Low 4.6-6.2 [facility] Serum anion gap measurementO rdered By: Guilherme Butt on 04-25-2024 Anion gap [Moles/Vol] 4 mmol/L Low 5-15 [facility] Serum or plasma calcium farshad urement (mass/volume)Ordered By: Guilherme Butt on 04-25-2024 Calcium [Mass/Vol] 9.0 mg/dL 8.5-10.1 [facility] Serum or plasma creatinine m easurement (mass/volume)Ordered By: Guilherme Butt on 04-25-2024 Creatinine [Mass/Vol] 1.00 mg/dL 0.70-1.30 [facility] Comment on above: The validity of the calculated GFR & GFRAA in patients over 70 years has not been determined. Clinical correlation is essential. Serum or plasma urea nitroge n measurement (mass/volume)Ordered By: Guilherme Butt on 04-25-2024 Urea nitrogen [Mass/Vol] 28 mg/dL High 7-18 [facility] Sodium levelOrdered By: Kelly Butt on 04-25-2024 Sodium [Moles/Vol] 139 mmol/L 136-145 [facility] White blood cell (WBC) count Ordered By: Guilherme Butt on 04-25-2024 WBC (Bld) [#/Vol] 4.2 10*3/uL Low 4.4-11.0 [facility] Basophil percentageOrdered B y: Guilherme Butt on 08-24-2023 Chloride [Moles/Vol] 105 mmol/L 98-107 [facility] Glucose [Mass/Vol] 86 mg/dL 74-106 [facility] Hemoglobin (Bld) [Mass/Vol] 13.3 g/dL 13.0-16.5 [facility] Potassium [Moles/Vol] 4.5 mmol/L 3.5-5.1 [facility] Sodium [Moles/Vol] 138 mmol/L 136-145 [facility] WBC (Bld) [#/Vol] 4.6 10*3/uL 4.4-11.0 [facility] Determination of erythrocyte mean corpuscular volume (MCV)Ordered By: Guilherme Butt on 08-24-2023 MCV (RBC) [Entitic vol] 96.2 fL 80-94 [facility] Erythrocyte distribution wid th ratioOrdered By: Guilherme Butt on 08-24-2023 Erythrocyte distribution width (RBC) [Ratio] 13.0 % 11.6-14.6 [facility] Erythrocyte distribution wid th standard deviationOrdered By: Guilherme Butt on 08-24-2023 Erythrocyte distribution width (RBC) [Entitic vol] 46.1 fL 35.1-43.9 [facility] Hematocrit Auto (Bld) [Volum e fraction]Ordered By: Guilherme Butt on 08-24-2023 Hematocrit (Bld) [Volume fraction] 40.6 % 40-54 [facility] Laboratory - Chemistry and C hemistry - challengeOrdered By: Guilherme Butt on 08-24-2023 CO2 [Moles/Vol] 30.0 mmol/L 21.0-32.0 [facility] Urea nitrogen/Creatinine [Mass ratio] 26.9 mg/mg 10-20 [facility] Laboratory - Hematology and Cell countsOrdered By: Guilherme Butt on 08-24-2023 MCH (RBC) [Entitic mass] 31.5 pg 27.0-32.0 [facility] MCHC (RBC) [Mass/Vol] 32.8 g/dL 32-36 [facility] Platelet mean volume (Bld) [Entitic vol] 9.2 fL 6.2-12.0 [facility] Platelets (Bld) [#/Vol] 193 10*3/uL 150-450 [facility] No Panel InformationOrdered By: Guilherme Butt on 08-24-2023 Estimated GFR (MDRD) Amer 89 mL/min >60 [facility] Comment on above: GFR Calc Estimated GFR (MDRD) Non-Af Amer 73 mL/min >60 [facility] Comment on above: Non- GFR Calc RBC Auto (Bld) [#/Vol]Ordere d By: Guilherme Butt on 08-24-2023 RBC (Bld) [#/Vol] 4.22 10*6/uL 4.6-6.2 [facility] Serum or plasma calcium farshad urement (mass/volume)Ordered By: Guilherme Butt on 08-24-2023 Calcium [Mass/Vol] 9.0 mg/dL 8.5-10.1 [facility] Serum or plasma creatinine m easurement (mass/volume)Ordered By: Guilherme Butt on 08-24-2023 Creatinine [Mass/Vol] 1.04 mg/dL 0.70-1.30 [facility] Comment on above: The validity of the calculated GFR & GFRAA in patients over 70 years has not been determined. Clinical correlation is essential. Serum or plasma urea nitroge n measurement (mass/volume)Ordered By: Guilherme Butt on 08-24-2023 Urea nitrogen [Mass/Vol] 28 mg/dL 7-18 [facility] Thin prep Papanicolaou smear with manual screeningOrdered By: Guilherme Butt on 08-24-2023 Thin prep Papanicolaou smear with manual screening 3 5-15 [facility] Basophil percentageOrdered B y: Guilherme Butt on 07-20-2023 Chloride [Moles/Vol] 109 mmol/L 98-107 [facility] Glucose [Mass/Vol] 83 mg/dL 74-106 [facility] Hemoglobin (Bld) [Mass/Vol] 13.1 g/dL 13.0-16.5 [facility] Potassium [Moles/Vol] 4.2 mmol/L 3.5-5.1 [facility] Sodium [Moles/Vol] 142 mmol/L 136-145 [facility] WBC (Bld) [#/Vol] 4.5 10*3/uL 4.4-11.0 [facility] Determination of erythrocyte mean corpuscular volume (MCV)Ordered By: Guilherme Butt on 07-20-2023 MCV (RBC) [Entitic vol] 94.4 fL 80-94 [facility] Erythrocyte distribution wid th ratioOrdered By: Guilherme Butt on 07-20-2023 Erythrocyte distribution width (RBC) [Ratio] 12.8 % 11.6-14.6 [facility] Erythrocyte distribution wid th standard deviationOrdered By: Guilherme Butt on 07-20-2023 Erythrocyte distribution width (RBC) [Entitic vol] 44.0 fL 35.1-43.9 [facility] Hematocrit Auto (Bld) [Volum e fraction]Ordered By: Guilherme Butt on 07-20-2023 Hematocrit (Bld) [Volume fraction] 38.9 % 40-54 [facility] Laboratory - Chemistry and C hemistry - challengeOrdered By: Guilherme Butt on 07-20-2023 CO2 [Moles/Vol] 26.0 mmol/L 21.0-32.0 [facility] Urea nitrogen/Creatinine [Mass ratio] 31.5 mg/mg 10-20 [facility] Laboratory - Hematology and Cell countsOrdered By: Guilherme Butt on 07-20-2023 MCH (RBC) [Entitic mass] 31.8 pg 27.0-32.0 [facility] MCHC (RBC) [Mass/Vol] 33.7 g/dL 32-36 [facility] Platelet mean volume (Bld) [Entitic vol] 9.1 fL 6.2-12.0 [facility] Platelets (Bld) [#/Vol] 195 10*3/uL 150-450 [facility] No Panel InformationOrdered By: Guilherme Butt on 07-20-2023 Estimated GFR (MDRD) Amer 102 mL/min >60 [facility] Comment on above: GFR Calc Estimated GFR (MDRD) Non-Af Amer 84 mL/min >60 [facility] Comment on above: Non- GFR Calc RBC Auto (Bld) [#/Vol]Ordere d By: Guilherme Butt on 07-20-2023 RBC (Bld) [#/Vol] 4.12 10*6/uL 4.6-6.2 [facility] Serum or plasma calcium farshad urement (mass/volume)Ordered By: Guilherme Butt on 07-20-2023 Calcium [Mass/Vol] 8.8 mg/dL 8.5-10.1 [facility] Serum or plasma creatinine m easurement (mass/volume)Ordered By: Guilherme Butt on 07-20-2023 Creatinine [Mass/Vol] 0.92 mg/dL 0.70-1.30 [facility] Comment on above: The validity of the calculated GFR & GFRAA in patients over 70 years has not been determined. Clinical correlation is essential. Serum or plasma urea nitroge n measurement (mass/volume)Ordered By: Guilherme Butt on 07-20-2023 Urea nitrogen [Mass/Vol] 29 mg/dL 7-18 [facility] Thin prep Papanicolaou smear with manual screeningOrdered By: Guilherme Butt on 07-20-2023 Thin prep Papanicolaou smear with manual screening 7 5-15 [facility] Basophil percentageOrdered B y: Guilherme Butt on 06-22-2023 Chloride [Moles/Vol] 107 mmol/L 98-107 [facility] Glucose [Mass/Vol] 88 mg/dL 74-106 [facility] Hemoglobin (Bld) [Mass/Vol] 12.8 g/dL 13.0-16.5 [facility] Potassium [Moles/Vol] 4.4 mmol/L 3.5-5.1 [facility] Sodium [Moles/Vol] 141 mmol/L 136-145 [facility] WBC (Bld) [#/Vol] 4.6 10*3/uL 4.4-11.0 [facility] Determination of erythrocyte mean corpuscular volume (MCV)Ordered By: Guilherme Butt on 06-22-2023 MCV (RBC) [Entitic vol] 93.4 fL 80-94 [facility] Erythrocyte distribution wid th ratioOrdered By: Kellychesapeakedmitri Butt on 06-22-2023 Erythrocyte distribution width (RBC) [Ratio] 12.5 % 11.6-14.6 [facility] Erythrocyte distribution wid th standard deviationOrdered By: Guilherme Butt on 06-22-2023 Erythrocyte distribution width (RBC) [Entitic vol] 43.2 fL 35.1-43.9 [facility] Hematocrit Auto (Bld) [Volum e fraction]Ordered By: Guilherme Butt on 06-22-2023 Hematocrit (Bld) [Volume fraction] 38.4 % 40-54 [facility] Laboratory - Chemistry and C hemistry - challengeOrdered By: Guilherme Butt on 02-09-2024 CO2 [Moles/Vol] 30.0 mmol/L 21.0-32.0 [facility] Urea nitrogen/Creatinine [Mass ratio] 26.5 mg/mg 10-20 [facility] - Hematology and Cell countsOrdered By: Guilherme Butt on 06-22-2023 MCH (RBC) [Entitic mass] 31.1 pg 27.0-32.0 [facility] MCHC (RBC) [Mass/Vol] 33.3 g/dL 32-36 [facility] Platelet mean volume (Bld) [Entitic vol] 9.0 fL 6.2-12.0 [facility] Platelets (Bld) [#/Vol] 194 10*3/uL 150-450 [facility] No Panel InformationOrdered By: Guilherme Butt on 06-22-2023 Estimated GFR (MDRD) Amer 104 mL/min >60 [facility] Comment on above: GFR Calc Estimated GFR (MDRD) Non-Af Amer 86 mL/min >60 [facility] Comment on above: Non- GFR Calc RBC Auto (Bld) [#/Vol]Ordere d By: Guilherme Butt on 06-22-2023 RBC (Bld) [#/Vol] 4.11 10*6/uL 4.6-6.2 [facility] Serum or plasma calcium farshad urement (mass/volume)Ordered By: Guilherme Butt on 06-22-2023 Calcium [Mass/Vol] 8.8 mg/dL 8.5-10.1 [facility] Serum or plasma creatinine m easurement (mass/volume)Ordered By: Guilherme Butt on 06-22-2023 Creatinine [Mass/Vol] 0.90 mg/dL 0.70-1.30 [facility] Comment on above: The validity of the calculated GFR & GFRAA in patients over 70 years has not been determined. Clinical correlation is essential. Serum or plasma urea nitroge n measurement (mass/volume)Ordered By: Guilherme Butt on 06-22-2023 Urea nitrogen [Mass/Vol] 24 mg/dL 7-18 [facility] Thin prep Papanicolaou smear with manual screeningOrdered By: Guilherme Butt on 06-22-2023 Thin prep Papanicolaou smear with manual screening 4 5-15 [facility] Basophil percentageOrdered B y: Cecy Gray on 05-25-2023 Chloride [Moles/Vol] 107 mmol/L 98-107 [facility] Glucose [Mass/Vol] 138 mg/dL 74-106 [facility] Comment on above: Fasting Glucose resu lt greater than or equal to 126 mg/dL suggests DIABETES MELLITUS per A.D.A. criteria. Potassium [Moles/Vol] 4.1 mmol/L 3.5-5.1 [facility] Sodium [Moles/Vol] 141 mmol/L 136-145 [facility] WBC (Bld) [#/Vol] 5.5 10*3/uL 4.4-11.0 [facility] Blood erythrocytes count (nu mber/volume)Ordered By: Cecy Gray on 05-25-2023 RBC (Bld) [#/Vol] 4.36 10*6/uL 4.6-6.2 [facility] Blood hemoglobin measurement (mass/volume)Ordered By: Cecy Gray on 05-25-2023 Hemoglobin (Bld) [Mass/Vol] 13.5 g/dL 13.0-16.5 [facility] Blood platelet mean volumeOr dered By: Cecy Gray on 05-25-2023 Platelet mean volume (Bld) [Entitic vol] 9.2 fL 6.2-12.0 [facility] Determination of erythrocyte mean corpuscular volume (MCV)Ordered By: Cecy Gray on 05-25-2023 MCV (RBC) [Entitic vol] 94.0 fL 80-94 [facility] Hematocrit Auto (Bld) [Volum e fraction]Ordered By: Cecy Gray on 05-25-2023 Hematocrit (Bld) [Volume fraction] 41.0 % 40-54 [facility] Laboratory - Chemistry and C hemistry - challengeOrdered By: Cecy Gray on 05-25-2023 CO2 [Moles/Vol] 26.0 mmol/L 21.0-32.0 [facility] Urea nitrogen/Creatinine [Mass ratio] 25.2 mg/mg 10-20 [facility] - Hematology and Cell countsOrdered By: Cecy Gray on 05-25-2023 Erythrocyte distribution width (RBC) [Entitic vol] 43.3 fL 35.1-43.9 [facility] Erythrocyte distribution width (RBC) [Ratio] 12.4 % 11.6-14.6 [facility] MCH (RBC) [Entitic mass] 31.0 pg 27.0-32.0 [facility] MCHC Auto (RBC) [Mass/Vol]Or dered By: Cecy Gray on 05-25-2023 MCHC (RBC) [Mass/Vol] 32.9 g/dL 32-36 [facility] No Panel InformationOrdered By: Cecy Gray on 05-25-2023 Estimated GFR (MDRD) Amer 86 mL/min >60 [facility] Comment on above: GFR Calc Estimated GFR (MDRD) Non-Af Amer 71 mL/min >60 [facility] Comment on above: Non- GFR Calc Platelets bldOrdered By: Reinier Gray on 05-25-2023 Platelets (Bld) [#/Vol] 214 10*3/uL 150-450 [facility] Serum or plasma calcium farshad urement (mass/volume)Ordered By: Cecy Gray on 05-25-2023 Calcium [Mass/Vol] 9.2 mg/dL 8.5-10.1 [facility] Serum or plasma creatinine m easurement (mass/volume)Ordered By: Cecy Gray on 05-25-2023 Creatinine [Mass/Vol] 1.07 mg/dL 0.70-1.30 [facility] Comment on above: The validity of the calculated GFR & GFRAA in patients over 70 years has not been determined. Clinical correlation is essential. Serum or plasma urea nitroge n measurement (mass/volume)Ordered By: Cecy Gray on 05-25-2023 Urea nitrogen [Mass/Vol] 27 mg/dL 7-18 [facility] Thin prep Papanicolaou smear with manual screeningOrdered By: Cecy Gray on 05-25-2023 Thin prep Papanicolaou smear with manual screening 8 5-15 [facility] Basophil percentageOrdered B y: Cecy Gray on 04-20-2023 Chloride [Moles/Vol] 106 mmol/L 98-107 [facility] Glucose [Mass/Vol] 100 mg/dL 74-106 [facility] Comment on above: Fasting Glucose resu lt from 100 to 125 mg/dL suggests IMPAIRED HOMEOSTASIS per A.D.A. criteria. Potassium [Moles/Vol] 4.8 mmol/L 3.5-5.1 [facility] Sodium [Moles/Vol] 140 mmol/L 136-145 [facility] WBC (Bld) [#/Vol] 5.2 10*3/uL 4.4-11.0 [facility] Blood erythrocytes count (nu mber/volume)Ordered By: Cecy Gray on 04-20-2023 RBC (Bld) [#/Vol] 4.26 10*6/uL 4.6-6.2 [facility] Blood hemoglobin measurement (mass/volume)Ordered By: Cecy Gray on 04-20-2023 Hemoglobin (Bld) [Mass/Vol] 13.8 g/dL 13.0-16.5 [facility] Blood platelet mean volumeOr dered By: Cecy Gray on 04-20-2023 Platelet mean volume (Bld) [Entitic vol] 9.1 fL 6.2-12.0 [facility] Determination of erythrocyte mean corpuscular volume (MCV)Ordered By: Cecy Gray on 04-20-2023 MCV (RBC) [Entitic vol] 96.9 fL 80-94 [facility] Hematocrit Auto (Bld) [Volum e fraction]Ordered By: Cecy Gray on 04-20-2023 Hematocrit (Bld) [Volume fraction] 41.3 % 40-54 [facility] Laboratory - Chemistry and C hemistry - challengeOrdered By: Cecy Gray on 04-20-2023 CO2 [Moles/Vol] 34.0 mmol/L 21.0-32.0 [facility] Urea nitrogen/Creatinine [Mass ratio] 23.8 mg/mg 10-20 [facility] - Hematology and Cell countsOrdered By: Cecy Gray on 04-20-2023 Erythrocyte distribution width (RBC) [Entitic vol] 45.5 fL 35.1-43.9 [facility] Erythrocyte distribution width (RBC) [Ratio] 12.8 % 11.6-14.6 [facility] MCH (RBC) [Entitic mass] 32.4 pg 27.0-32.0 [facility] MCHC Auto (RBC) [Mass/Vol]Or dered By: Cecy Gray on 04-20-2023 MCHC (RBC) [Mass/Vol] 33.4 g/dL 32-36 [facility] No Panel InformationOrdered By: Cecy Gray on 04-20-2023 Estimated GFR (MDRD) Amer 88 mL/min >60 [facility] Comment on above: GFR Calc Estimated GFR (MDRD) Non-Af Amer 73 mL/min >60 [facility] Comment on above: Non- GFR Calc Platelets bldOrdered By: Reinier Gray on 04-20-2023 Platelets (Bld) [#/Vol] 234 10*3/uL 150-450 [facility] Serum or plasma calcium farshad urement (mass/volume)Ordered By: Cecy Gray on 04-20-2023 Calcium [Mass/Vol] 9.3 mg/dL 8.5-10.1 [facility] Serum or plasma creatinine m easurement (mass/volume)Ordered By: Cecy Gray on 04-20-2023 Creatinine [Mass/Vol] 1.05 mg/dL 0.70-1.30 [facility] Comment on above: The validity of the calculated GFR & GFRAA in patients over 70 years has not been determined. Clinical correlation is essential. Serum or plasma urea nitroge n measurement (mass/volume)Ordered By: Cecy Gray on 04-20-2023 Urea nitrogen [Mass/Vol] 25 mg/dL 7-18 [facility] Thin prep Papanicolaou smear with manual screeningOrdered By: Cecy Gray on 04-20-2023 Thin prep Papanicolaou smear with manual screening 0 5-15 [facility] Basophil percentageOrdered B y: Cecy Gray on 03-23-2023 Chloride [Moles/Vol] 104 mmol/L 98-107 [facility] Glucose [Mass/Vol] 91 mg/dL 74-106 [facility] Potassium [Moles/Vol] 4.1 mmol/L 3.5-5.1 [facility] Sodium [Moles/Vol] 141 mmol/L 136-145 [facility] WBC (Bld) [#/Vol] 4.5 10*3/uL 4.4-11.0 [facility] Blood erythrocytes count (nu mber/volume)Ordered By: Cecy Gray on 03-23-2023 RBC (Bld) [#/Vol] 4.07 10*6/uL 4.6-6.2 [facility] Blood hemoglobin measurement (mass/volume)Ordered By: Cecy Gray on 03-23-2023 Hemoglobin (Bld) [Mass/Vol] 12.8 g/dL 13.0-16.5 [facility] Blood platelet mean volumeOr dered By: Cecy Gray on 03-23-2023 Platelet mean volume (Bld) [Entitic vol] 9.4 fL 6.2-12.0 [facility] Determination of erythrocyte mean corpuscular volume (MCV)Ordered By: Cecy Gray on 03-23-2023 MCV (RBC) [Entitic vol] 97.5 fL 80-94 [facility] Hematocrit Auto (Bld) [Volum e fraction]Ordered By: Cecy Gray on 03-23-2023 Hematocrit (Bld) [Volume fraction] 39.7 % 40-54 [facility] - Chemistry and C hemistry - challengeOrdered By: Cecy Gray on 03-23-2023 CO2 [Moles/Vol] 31.0 mmol/L 21.0-32.0 [facility] Urea nitrogen/Creatinine [Mass ratio] 28.0 mg/mg 10-20 [facility] - Hematology and Cell countsOrdered By: Cecy Gray on 03-23-2023 Erythrocyte distribution width (RBC) [Entitic vol] 46.2 fL 35.1-43.9 [facility] Erythrocyte distribution width (RBC) [Ratio] 12.8 % 11.6-14.6 [facility] MCH (RBC) [Entitic mass] 31.4 pg 27.0-32.0 [facility] MCHC Auto (RBC) [Mass/Vol]Or dered By: Cecy Gray on 03-23-2023 MCHC (RBC) [Mass/Vol] 32.2 g/dL 32-36 [facility] No Panel InformationOrdered By: Cecy Gray on 03-23-2023 Estimated GFR (MDRD) Amer 93 mL/min >60 [facility] Comment on above: GFR Calc Estimated GFR (MDRD) Non-Af Amer 77 mL/min >60 [facility] Comment on above: Non- GFR Calc Platelets bldOrdered By: Reinier Gray on 03-23-2023 Platelets (Bld) [#/Vol] 210 10*3/uL 150-450 [facility] Serum or plasma calcium farshad urement (mass/volume)Ordered By: Cecy Gray on 03-23-2023 Calcium [Mass/Vol] 8.9 mg/dL 8.5-10.1 [facility] Serum or plasma creatinine m easurement (mass/volume)Ordered By: Cecy Gray on 03-23-2023 Creatinine [Mass/Vol] 1.00 mg/dL 0.70-1.30 [facility] Comment on above: The validity of the calculated GFR & GFRAA in patients over 70 years has not been determined. Clinical correlation is essential. Serum or plasma urea nitroge n measurement (mass/volume)Ordered By: Cecy Gray on 03-23-2023 Urea nitrogen [Mass/Vol] 28 mg/dL 7-18 [facility] Thin prep Papanicolaou smear with manual screeningOrdered By: Cecy Gray on 03-23-2023 Thin prep Papanicolaou smear with manual screening 6 5-15 [facility] Basophil percentageOrdered B y: Cecy Gray on 02-23-2023 Chloride [Moles/Vol] 106 mmol/L 98-107 [facility] Glucose [Mass/Vol] 93 mg/dL 74-106 [facility] Potassium [Moles/Vol] 4.3 mmol/L 3.5-5.1 [facility] Sodium [Moles/Vol] 139 mmol/L 136-145 [facility] WBC (Bld) [#/Vol] 5.0 10*3/uL 4.4-11.0 [facility] Blood erythrocytes count (nu mber/volume)Ordered By: Cecy Gray on 02-23-2023 RBC (Bld) [#/Vol] 4.08 10*6/uL 4.6-6.2 [facility] Blood hemoglobin measurement (mass/volume)Ordered By: Cecy Gray on 02-23-2023 Hemoglobin (Bld) [Mass/Vol] 12.9 g/dL 13.0-16.5 [facility] Blood platelet mean volumeOr dered By: Cecy Gray on 02-23-2023 Platelet mean volume (Bld) [Entitic vol] 9.3 fL 6.2-12.0 [facility] Determination of erythrocyte mean corpuscular volume (MCV)Ordered By: Cecy Gray on 02-23-2023 MCV (RBC) [Entitic vol] 97.8 fL 80-94 [facility] Hematocrit Auto (Bld) [Volum e fraction]Ordered By: Cecy Gray on 02-23-2023 Hematocrit (Bld) [Volume fraction] 39.9 % 40-54 [facility] - Chemistry and C hemistry - challengeOrdered By: Cecy Gray on 02-23-2023 CO2 [Moles/Vol] 30.0 mmol/L 21.0-32.0 [facility] Urea nitrogen/Creatinine [Mass ratio] 29.9 mg/mg 10-20 [facility] - Hematology and Cell countsOrdered By: Cecy Gray on 02-23-2023 Erythrocyte distribution width (RBC) [Entitic vol] 45.7 fL 35.1-43.9 [facility] Erythrocyte distribution width (RBC) [Ratio] 12.6 % 11.6-14.6 [facility] MCH (RBC) [Entitic mass] 31.6 pg 27.0-32.0 [facility] MCHC Auto (RBC) [Mass/Vol]Or dered By: Cecy Gray on 02-23-2023 MCHC (RBC) [Mass/Vol] 32.3 g/dL 32-36 [facility] No Panel InformationOrdered By: Cecy Gray on 02-23-2023 Estimated GFR (MDRD) Amer 86 mL/min >60 [facility] Comment on above: GFR Calc Estimated GFR (MDRD) Non-Af Amer 71 mL/min >60 [facility] Comment on above: Non- GFR Calc Platelets bldOrdered By: Reinier Gray on 02-23-2023 Platelets (Bld) [#/Vol] 201 10*3/uL 150-450 [facility] Serum or plasma calcium farshad urement (mass/volume)Ordered By: Cecy Gray on 02-23-2023 Calcium [Mass/Vol] 8.8 mg/dL 8.5-10.1 [facility] Serum or plasma creatinine m easurement (mass/volume)Ordered By: Cecy Gray on 02-23-2023 Creatinine [Mass/Vol] 1.07 mg/dL 0.70-1.30 [facility] Comment on above: The validity of the calculated GFR & GFRAA in patients over 70 years has not been determined. Clinical correlation is essential. Serum or plasma urea nitroge n measurement (mass/volume)Ordered By: Cecy Gray on 02-23-2023 Urea nitrogen [Mass/Vol] 32 mg/dL 7-18 [facility] Thin prep Papanicolaou smear with manual screeningOrdered By: Cecy Gray on 02-23-2023 Thin prep Papanicolaou smear with manual screening 3 5-15 [facility] Basophil percentageOrdered B y: Guilherme Butt on 02-06-2023 Bilirubin [Mass/Vol] 0.50 mg/dL 0.20-1.00 [facility] Comment on above: For patients on eltr ombopag therapy, use of Dimension [place] TBIL is not recommended. Cholesterol [Mass/Vol] 180 mg/dL <200 [facility] Comment on above: <200 mg/dL Desirable 200-240 mg/dL Borderline >240 mg/dL High Risk Protein [Mass/Vol] 6.3 g/dL 6.4-8.2 [facility] Triglyceride [Mass/Vol] 108 mg/dL <199 [facility] Comment on above: The drugs N-Acetylcy steine and Metamizole may falsely depress this assay.Serum Triglycerides Reference Interval Normal <150 mg/dL Borderline high 150 - 199 mg/dL High 200 - 499 mg/dL Very High > or = 500 mg/dL Direct bilirubinOrdered By: Guilherme Butt on 02-06-2023 Bilirubin.direct [Mass/Vol] 0.11 mg/dL 0.00-0.30 [facility] Laboratory - Chemistry and C hemistry - challengeOrdered By: Guilherme Butt on 02-06-2023 ALP [Catalytic activity/Vol] 119 U/L 45-117 [facility] ALT [Catalytic activity/Vol] 9 U/L 16-61 [facility] Free T4 [Mass/Vol] 0.65 ng/dL 0.76-1.46 [facility] Globulin (S) [Mass/Vol] 2.9 g/dL 2.2-4.2 [facility] No Panel InformationOrdered By: Guilherme Butt on 02-06-2023 Thyroid Stimulating Hormone (TSH) 1.03 uIU/mL 0.358-3.74 [facility] Serum or plasma albumin farshad urement (mass/volume)Ordered By: Guilherme Butt on 02-06-2023 Albumin [Mass/Vol] 3.4 g/dL 3.2-5.0 [facility] Serum or plasma cholesterol in HDL measurement (mass/volume)Ordered By: Guilherme Butt on 02-06-2023 Cholesterol in HDL [Mass/Vol] 50 mg/dL >40 [facility] Comment on above: The drugs N-Acetylcy steine and Metamizole may falsely depress this assay. Reference Range HDL <40 mg/dL Low HDL Cholesterol HDL >or= 60 mg/dL High HDL Cholesterol Serum or plasma cholesterol in VLDL measurement (mass/volume)Ordered By: Guilherme Butt on 02-06-2023 Cholesterol in VLDL [Mass/Vol] 22 mg/dL 5-40 [facility] Serum or plasma low density lipoprotein (LDL) cholesterol measurement (mass/volume)Ordered By: Guilherme Butt on 02-06-2023 Cholesterol in LDL [Mass/Vol] 108 mg/dL 0-130 [facility] Thin prep Papanicolaou smear with manual screeningOrdered By: Guilherme Butt on 02-06-2023 Thin prep Papanicolaou smear with manual screening 11 U/L 15-37 [facility] Whole blood hemoglobin A1c/t otal hemoglobin ratio (mass fraction)Ordered By: Guilherme Butt on 02-06-2023 HbA1c (Bld) [Mass fraction] 5.3 % 3.8-5.6 [facility] Comment on above: Normal < 5.7 % Predi abetic 5.7 - 6.4 % Diabetic >or= 6.5 % Please note range changes. Basophil percentageOrdered B y: Guilherme Butt on 01-19-2023 Chloride [Moles/Vol] 107 mmol/L 98-107 [facility] Glucose [Mass/Vol] 93 mg/dL 74-106 [facility] Potassium [Moles/Vol] 4.8 mmol/L 3.5-5.1 [facility] Sodium [Moles/Vol] 141 mmol/L 136-145 [facility] WBC (Bld) [#/Vol] 4.5 10*3/uL 4.4-11.0 [facility] Blood erythrocytes count (nu mber/volume)Ordered By: Guilherme Butt on 01-19-2023 RBC (Bld) [#/Vol] 4.22 10*6/uL 4.6-6.2 [facility] Blood hemoglobin measurement (mass/volume)Ordered By: Guilherme Butt on 01-19-2023 Hemoglobin (Bld) [Mass/Vol] 13.4 g/dL 13.0-16.5 [facility] Blood platelet mean volumeOr dered By: Guilherme Butt on 01-19-2023 Platelet mean volume (Bld) [Entitic vol] 9.4 fL 6.2-12.0 [facility] Determination of erythrocyte mean corpuscular volume (MCV)Ordered By: Guilherme Butt on 01-19-2023 MCV (RBC) [Entitic vol] 99.1 fL 80-94 [facility] Hematocrit Auto (Bld) [Volum e fraction]Ordered By: Guilherme Butt on 01-19-2023 Hematocrit (Bld) [Volume fraction] 41.8 % 40-54 [facility] Laboratory - Chemistry and C hemistry - challengeOrdered By: Guilherme Butt on 01-19-2023 CO2 [Moles/Vol] 32.0 mmol/L 21.0-32.0 [facility] Urea nitrogen/Creatinine [Mass ratio] 25.5 mg/mg 10-20 [facility] Laboratory - Hematology and Cell countsOrdered By: Guilherme Butt on 01-19-2023 Erythrocyte distribution width (RBC) [Entitic vol] 46.4 fL 35.1-43.9 [facility] Erythrocyte distribution width (RBC) [Ratio] 12.8 % 11.6-14.6 [facility] MCH (RBC) [Entitic mass] 31.8 pg 27.0-32.0 [facility] MCHC Auto (RBC) [Mass/Vol]Or dered By: Guilherme Butt on 01-19-2023 MCHC (RBC) [Mass/Vol] 32.1 g/dL 32- [facility] No Panel InformationOrdered By: Guilherme Butt on 01-19-2023 Estimated GFR (MDRD) Amer 91 mL/min >60 [facility] Comment on above: GFR Calc Estimated GFR (MDRD) Non-Af Amer 75 mL/min >60 [facility] Comment on above: Non- GFR Calc Platelets bldOrdered By: Jamaal Butt on 01-19-2023 Platelets (Bld) [#/Vol] 180 10*3/uL 150-450 [facility] Serum or plasma calcium farshad urement (mass/volume)Ordered By: Guilherme Butt on 01-19-2023 Calcium [Mass/Vol] 9.1 mg/dL 8.5-10.1 [facility] Serum or plasma creatinine m easurement (mass/volume)Ordered By: Guilherme Butt on 01-19-2023 Creatinine [Mass/Vol] 1.02 mg/dL 0.70-1.30 [facility] Comment on above: The validity of the calculated GFR & GFRAA in patients over 70 years has not been determined. Clinical correlation is essential. Serum or plasma urea nitroge n measurement (mass/volume)Ordered By: Guilherme Butt on 01-19-2023 Urea nitrogen [Mass/Vol] 26 mg/dL 7-18 [facility] Thin prep Papanicolaou smear with manual screeningOrdered By: Guilherme Butt on 01-19-2023 Thin prep Papanicolaou smear with manual screening 2 5-15 [facility] Basophil percentageOrdered B y: Guilherme Butt on 12-22-2022 Chloride [Moles/Vol] 106 mmol/L 98-107 [facility] Glucose [Mass/Vol] 87 mg/dL 74-106 [facility] Potassium [Moles/Vol] 4.5 mmol/L 3.5-5.1 [facility] Sodium [Moles/Vol] 140 mmol/L 136-145 [facility] WBC (Bld) [#/Vol] 4.6 10*3/uL 4.4-11.0 [facility] Blood erythrocytes count (nu mber/volume)Ordered By: Guilherme Butt on 12-22-2022 RBC (Bld) [#/Vol] 4.14 10*6/uL 4.6-6.2 [facility] Blood hemoglobin measurement (mass/volume)Ordered By: Guilherme Butt on 12-22-2022 Hemoglobin (Bld) [Mass/Vol] 13.4 g/dL 13.0-16.5 [facility] Blood platelet mean volumeOr dered By: Guilherme Butt on 12-22-2022 Platelet mean volume (Bld) [Entitic vol] 9.0 fL 6.2-12.0 [facility] Determination of erythrocyte mean corpuscular volume (MCV)Ordered By: Guilherme Butt on 12-22-2022 MCV (RBC) [Entitic vol] 97.3 fL 80-94 [facility] Hematocrit Auto (Bld) [Volum e fraction]Ordered By: Guilherme Butt on 12-22-2022 Hematocrit (Bld) [Volume fraction] 40.3 % 40-54 [facility] - Chemistry and C hemistry - challengeOrdered By: Guilherme Butt on 12-22-2022 CO2 [Moles/Vol] 33.0 mmol/L 21.0-32.0 [facility] Urea nitrogen/Creatinine [Mass ratio] 26.2 mg/mg 10-20 [facility] - Hematology and Cell countsOrdered By: Guilherme Butt on 12-22-2022 Erythrocyte distribution width (RBC) [Entitic vol] 45.3 fL 35.1-43.9 [facility] Erythrocyte distribution width (RBC) [Ratio] 12.8 % 11.6-14.6 [facility] MCH (RBC) [Entitic mass] 32.4 pg 27.0-32.0 [facility] MCHC Auto (RBC) [Mass/Vol]Or dered By: Guilherme Butt on 12-22-2022 MCHC (RBC) [Mass/Vol] 33.3 g/dL 32-36 [facility] No Panel InformationOrdered By: Guilherme Butt on 12-22-2022 Estimated GFR (MDRD) Amer 94 mL/min >60 [facility] Comment on above: GFR Calc Estimated GFR (MDRD) Non-Af Amer 78 mL/min >60 [facility] Comment on above: Non- GFR Calc Platelets bldOrdered By: Jamaal Butt on 12-22-2022 Platelets (Bld) [#/Vol] 179 10*3/uL 150-450 [facility] Serum or plasma calcium farshad urement (mass/volume)Ordered By: Guilherme Butt on 12-22-2022 Calcium [Mass/Vol] 8.9 mg/dL 8.5-10.1 [facility] Serum or plasma creatinine m easurement (mass/volume)Ordered By: Guilherme Butt on 12-22-2022 Creatinine [Mass/Vol] 0.99 mg/dL 0.70-1.30 [facility] Comment on above: The validity of the calculated GFR & GFRAA in patients over 70 years has not been determined. Clinical correlation is essential. Serum or plasma urea nitroge n measurement (mass/volume)Ordered By: Guilherme Butt on 12-22-2022 Urea nitrogen [Mass/Vol] 26 mg/dL 7-18 [facility] Thin prep Papanicolaou smear with manual screeningOrdered By: Guilherme Butt on 12-22-2022 Thin prep Papanicolaou smear with manual screening 1 5-15 [facility] Basophil percentageOrdered B y: Guilherme Butt on 11-24-2022 Chloride [Moles/Vol] 109 mmol/L 98-107 [facility] Glucose [Mass/Vol] 132 mg/dL 74-106 [facility] Comment on above: Fasting Glucose resu lt greater than or equal to 126 mg/dL suggests DIABETES MELLITUS per A.D.A. criteria. Potassium [Moles/Vol] 4.0 mmol/L 3.5-5.1 [facility] Sodium [Moles/Vol] 140 mmol/L 136-145 [facility] WBC (Bld) [#/Vol] 4.6 10*3/uL 4.4-11.0 [facility] Blood erythrocytes count (nu mber/volume)Ordered By: Guilherme Butt on 11-24-2022 RBC (Bld) [#/Vol] 4.06 10*6/uL 4.6-6.2 [facility] Blood hemoglobin measurement (mass/volume)Ordered By: Guilherme Butt on 11-24-2022 Hemoglobin (Bld) [Mass/Vol] 13.0 g/dL 13.0-16.5 [facility] Blood platelet mean volumeOr dered By: Guilherme Btut on 11-24-2022 Platelet mean volume (Bld) [Entitic vol] 9.3 fL 6.2-12.0 [facility] Determination of erythrocyte mean corpuscular volume (MCV)Ordered By: Guilherme Butt on 11-24-2022 MCV (RBC) [Entitic vol] 96.3 fL 80-[address] [facility] Hematocrit Auto (Bld) [Volum e fraction]Ordered By: Guilherme Butt on 11-24-2022 Hematocrit (Bld) [Volume fraction] 39.1 % 40-54 [facility] - Chemistry and C hemistry - challengeOrdered By: Guilherme Butt on 11-24-2022 CO2 [Moles/Vol] 26.0 mmol/L 21.0-32.0 [facility] Urea nitrogen/Creatinine [Mass ratio] 34.3 mg/mg 10-20 [facility] - Hematology and Cell countsOrdered By: Guilherme Butt on 11-24-2022 Erythrocyte distribution width (RBC) [Entitic vol] 45.0 fL 35.1-43.9 [facility] Erythrocyte distribution width (RBC) [Ratio] 12.7 % 11.6-14.6 [facility] MCH (RBC) [Entitic mass] 32.0 pg 27.0-32.0 [facility] MCHC Auto (RBC) [Mass/Vol]Or dered By: Guilherme Butt on 11-24-2022 MCHC (RBC) [Mass/Vol] 33.2 g/dL 32-36 [facility] No Panel InformationOrdered By: Guilherme Butt on 11-24-2022 Estimated GFR (MDRD) Amer 97 mL/min >60 [facility] Comment on above: GFR Calc Estimated GFR (MDRD) Non-Af Amer 80 mL/min >60 [facility] Comment on above: Non- GFR Calc Platelets bldOrdered By: Jamaal Butt on 11-24-2022 Platelets (Bld) [#/Vol] 188 10*3/uL 150-450 [facility] Serum or plasma calcium farshad urement (mass/volume)Ordered By: Guilherme Butt on 11-24-2022 Calcium [Mass/Vol] 8.7 mg/dL 8.5-10.1 [facility] Serum or plasma creatinine m easurement (mass/volume)Ordered By: Guilherme Butt on 11-24-2022 Creatinine [Mass/Vol] 0.96 mg/dL 0.70-1.30 [facility] Comment on above: The validity of the calculated GFR & GFRAA in patients over 70 years has not been determined. Clinical correlation is essential. Serum or plasma urea nitroge n measurement (mass/volume)Ordered By: Guilherme Butt on 11-24-2022 Urea nitrogen [Mass/Vol] 33 mg/dL 7-18 [facility] Thin prep Papanicolaou smear with manual screeningOrdered By: Guilherme Butt on 11-24-2022 Thin prep Papanicolaou smear with manual screening 5 5-15 [facility] Basophil percentageOrdered B y: Cecy Gray on 10-20-2022 Chloride [Moles/Vol] 104 mmol/L 98-107 [facility] Glucose [Mass/Vol] 95 mg/dL 74-106 [facility] Potassium [Moles/Vol] 4.3 mmol/L 3.5-5.1 [facility] Sodium [Moles/Vol] 138 mmol/L 136-145 [facility] WBC (Bld) [#/Vol] 4.7 10*3/uL 4.4-11.0 [facility] Blood erythrocytes count (nu mber/volume)Ordered By: Cecy Gray on 10-20-2022 RBC (Bld) [#/Vol] 4.48 10*6/uL 4.6-6.2 [facility] Blood hemoglobin measurement (mass/volume)Ordered By: Cecy Gray on 10-20-2022 Hemoglobin (Bld) [Mass/Vol] 14.2 g/dL 13.0-16.5 [facility] Blood platelet mean volumeOr dered By: Cecy Gray on 10-20-2022 Platelet mean volume (Bld) [Entitic vol] 9.1 fL 6.2-12.0 [facility] Determination of erythrocyte mean corpuscular volume (MCV)Ordered By: Cecy Gray on 10-20-2022 MCV (RBC) [Entitic vol] 97.1 fL 80-94 [facility] Hematocrit Auto (Bld) [Volum e fraction]Ordered By: Cecy Gray on 10-20-2022 Hematocrit (Bld) [Volume fraction] 43.5 % 40-54 [facility] - Chemistry and C hemistry - challengeOrdered By: Cecy Gray on 10-20-2022 CO2 [Moles/Vol] 28.0 mmol/L 21.0-32.0 [facility] Urea nitrogen/Creatinine [Mass ratio] 28.2 mg/mg 10-20 [facility] - Hematology and Cell countsOrdered By: Cecy Gray on 10-20-2022 Erythrocyte distribution width (RBC) [Entitic vol] 44.9 fL 35.1-43.9 [facility] Erythrocyte distribution width (RBC) [Ratio] 12.5 % 11.6-14.6 [facility] MCH (RBC) [Entitic mass] 31.7 pg 27.0-32.0 [facility] MCHC Auto (RBC) [Mass/Vol]Or dered By: Cecy Gray on 10-20-2022 MCHC (RBC) [Mass/Vol] 32.6 g/dL 32-36 [facility] No Panel InformationOrdered By: Cecy Gray on 10-20-2022 Estimated GFR (MDRD) Amer 98 mL/min >60 [facility] Comment on above: GFR Calc Estimated GFR (MDRD) Non-Af Amer 81 mL/min >60 [facility] Comment on above: Non- GFR Calc Platelets bldOrdered By: Reinier Gray on 10-20-2022 Platelets (Bld) [#/Vol] 204 10*3/uL 150-450 [facility] Serum or plasma calcium farshad urement (mass/volume)Ordered By: Cecy Gray on 10-20-2022 Calcium [Mass/Vol] 8.7 mg/dL 8.5-10.1 [facility] Serum or plasma creatinine m easurement (mass/volume)Ordered By: Cecy Gray on 10-20-2022 Creatinine [Mass/Vol] 0.96 mg/dL 0.70-1.30 [facility] Comment on above: The validity of the calculated GFR & GFRAA in patients over 70 years has not been determined. Clinical correlation is essential. Serum or plasma urea nitroge n measurement (mass/volume)Ordered By: Cecy Gray on 10-20-2022 Urea nitrogen [Mass/Vol] 27 mg/dL 7-18 [facility] Thin prep Papanicolaou smear with manual screeningOrdered By: Cecy Gray on 10-20-2022 Thin prep Papanicolaou smear with manual screening 6 5-15 [facility] Basophil percentageOrdered B y: Cecy Gray on 09-22-2022 Chloride [Moles/Vol] 106 mmol/L 98-107 [facility] Glucose [Mass/Vol] 86 mg/dL 74-106 [facility] Potassium [Moles/Vol] 4.4 mmol/L 3.5-5.1 [facility] Sodium [Moles/Vol] 141 mmol/L 136-145 [facility] WBC (Bld) [#/Vol] 5.1 10*3/uL 4.4-11.0 [facility] Blood erythrocytes count (nu mber/volume)Ordered By: Cecy Gray on 09-22-2022 RBC (Bld) [#/Vol] 4.21 10*6/uL 4.6-6.2 [facility] Blood hemoglobin measurement (mass/volume)Ordered By: Cecy Gray on 09-22-2022 Hemoglobin (Bld) [Mass/Vol] 13.4 g/dL 13.0-16.5 [facility] Blood platelet mean volumeOr dered By: Cecy Gray on 09-22-2022 Platelet mean volume (Bld) [Entitic vol] 9.3 fL 6.2-12.0 [facility] Determination of erythrocyte mean corpuscular volume (MCV)Ordered By: Cecy Gray on 09-22-2022 MCV (RBC) [Entitic vol] 97.4 fL 80-94 [facility] Hematocrit Auto (Bld) [Volum e fraction]Ordered By: Cecy Gray on 09-22-2022 Hematocrit (Bld) [Volume fraction] 41.0 % 40-54 [facility] - Chemistry and C hemistry - challengeOrdered By: Cecy Gray on 09-22-2022 CO2 [Moles/Vol] 31.0 mmol/L 21.0-32.0 [facility] Urea nitrogen/Creatinine [Mass ratio] 27.7 mg/mg 10-20 [facility] - Hematology and Cell countsOrdered By: Cecy Gray on 09-22-2022 Erythrocyte distribution width (RBC) [Entitic vol] 43.7 fL 35.1-43.9 [facility] Erythrocyte distribution width (RBC) [Ratio] 12.3 % 11.6-14.6 [facility] MCH (RBC) [Entitic mass] 31.8 pg 27.0-32.0 [facility] MCHC Auto (RBC) [Mass/Vol]Or dered By: Cecy Gray on 09-22-2022 MCHC (RBC) [Mass/Vol] 32.7 g/dL 32-36 [facility] No Panel InformationOrdered By: Cecy Gray on 09-22-2022 Estimated GFR (MDRD) Amer 105 mL/min >60 [facility] Comment on above: GFR Calc Estimated GFR (MDRD) Non-Af Amer 87 mL/min >60 [facility] Comment on above: Non- GFR Calc Platelets bldOrdered By: Reinier Gray on 09-22-2022 Platelets (Bld) [#/Vol] 187 10*3/uL 150-450 [facility] Serum or plasma calcium farshad urement (mass/volume)Ordered By: Cecy Gray on 09-22-2022 Calcium [Mass/Vol] 8.8 mg/dL 8.5-10.1 [facility] Serum or plasma creatinine m easurement (mass/volume)Ordered By: Cecy Gray on 09-22-2022 Creatinine [Mass/Vol] 0.90 mg/dL 0.70-1.30 [facility] Comment on above: The validity of the calculated GFR & GFRAA in patients over 70 years has not been determined. Clinical correlation is essential. Serum or plasma urea nitroge n measurement (mass/volume)Ordered By: Cecy Gray on 09-22-2022 Urea nitrogen [Mass/Vol] 25 mg/dL 7-18 [facility] Thin prep Papanicolaou smear with manual screeningOrdered By: Cecy Gray on 09-22-2022 Thin prep Papanicolaou smear with manual screening 4 5-15 [facility] Basophil percentageOrdered B y: Guilherme Butt on 08-25-2022 Chloride [Moles/Vol] 106 mmol/L 98-107 [facility] Glucose [Mass/Vol] 90 mg/dL 74-106 [facility] Potassium [Moles/Vol] 4.3 mmol/L 3.5-5.1 [facility] Sodium [Moles/Vol] 139 mmol/L 136-145 [facility] WBC (Bld) [#/Vol] 4.4 10*3/uL 4.4-11.0 [facility] Blood erythrocytes count (nu mber/volume)Ordered By: Guilherme Butt on 08-25-2022 RBC (Bld) [#/Vol] 4.15 10*6/uL 4.6-6.2 [facility] Blood hemoglobin measurement (mass/volume)Ordered By: Guilherme Butt on 08-25-2022 Hemoglobin (Bld) [Mass/Vol] 13.2 g/dL 13.0-16.5 [facility] Blood platelet mean volumeOr dered By: Guilherme Butt on 08-25-2022 Platelet mean volume (Bld) [Entitic vol] 9.3 fL 6.2-12.0 [facility] Determination of erythrocyte mean corpuscular volume (MCV)Ordered By: Guilherme Butt on 08-25-2022 MCV (RBC) [Entitic vol] 97.6 fL 80-94 [facility] Hematocrit Auto (Bld) [Volum e fraction]Ordered By: Guilherme Butt on 08-25-2022 Hematocrit (Bld) [Volume fraction] 40.5 % 40-54 [facility] - Chemistry and C hemistry - challengeOrdered By: Guilherme Butt on 08-25-2022 CO2 [Moles/Vol] 29.0 mmol/L 21.0-32.0 [facility] Cobalamin (Vitamin B12) [Mass/Vol] 239 pg/mL 211-911 [facility] Urea nitrogen/Creatinine [Mass ratio] 25.6 mg/mg 10-20 [facility] - Hematology and Cell countsOrdered By: Guilherme Butt on 08-25-2022 Erythrocyte distribution width (RBC) [Entitic vol] 45.1 fL 35.1-43.9 [facility] Erythrocyte distribution width (RBC) [Ratio] 12.5 % 11.6-14.6 [facility] MCH (RBC) [Entitic mass] 31.8 pg 27.0-32.0 [facility] MCHC Auto (RBC) [Mass/Vol]Or dered By: Guilherme Butt on 08-25-2022 MCHC (RBC) [Mass/Vol] 32.6 g/dL 32-36 [facility] No Panel InformationOrdered By: Guilhemre Butt on 08-25-2022 Estimated GFR (MDRD) Amer 78 mL/min >60 [facility] Comment on above: GFR Calc Estimated GFR (MDRD) Non-Af Amer 64 mL/min >60 [facility] Comment on above: Non- GFR Calc Platelets bldOrdered By: Jamaal merrickdmitri Butt on 08-25-2022 Platelets (Bld) [#/Vol] 176 10*3/uL 150-450 [facility] Serum or plasma calcium farshad urement (mass/volume)Ordered By: Guilherme Butt on 08-25-2022 Calcium [Mass/Vol] 8.7 mg/dL 8.5-10.1 [facility] Serum or plasma creatinine m easurement (mass/volume)Ordered By: Guilherme Butt on 08-25-2022 Creatinine [Mass/Vol] 1.17 mg/dL 0.70-1.30 [facility] Comment on above: The validity of the calculated GFR & GFRAA in patients over 70 years has not been determined. Clinical correlation is essential. Serum or plasma urea nitroge n measurement (mass/volume)Ordered By: Guilherme Butt on 08-25-2022 Urea nitrogen [Mass/Vol] 30 mg/dL 7-18 [facility] Thin prep Papanicolaou smear with manual screeningOrdered By: Guilherme Butt on 08-25-2022 Thin prep Papanicolaou smear with manual screening 4 5-15 [facility] Absolute lymphocyte countOrd ered By: Guilherme Butt on 07-21-2022 Lymphocytes Auto (Unsp spec) [#/Vol] 1.11 10*3/uL 0.83-4.51 [facility] Basophil percentageOrdered B y: Guilherme Butt on 07-21-2022 Basophils/100 WBC (Bld) 0.5 % 0-1 [facility] Chloride [Moles/Vol] 106 mmol/L 98-107 [facility] Eosinophils/100 WBC (Bld) 3.6 % 0-5 [facility] Glucose [Mass/Vol] 95 mg/dL 74-106 [facility] Neutrophils (Bld) [#/Vol] 2.5 10*3/uL 2.0-7.7 [facility] Neutrophils/100 WBC (Bld) 59.1 % 47-70 [facility] Potassium [Moles/Vol] 4.2 mmol/L 3.5-5.1 [facility] Sodium [Moles/Vol] 142 mmol/L 136-145 [facility] WBC (Bld) [#/Vol] 4.2 10*3/uL 4.4-11.0 [facility] Blood erythrocytes count (nu mber/volume)Ordered By: Guilherme Butt on 07-21-2022 RBC (Bld) [#/Vol] 4.10 10*6/uL 4.6-6.2 [facility] Blood hemoglobin measurement (mass/volume)Ordered By: Guilherme Butt on 07-21-2022 Hemoglobin (Bld) [Mass/Vol] 13.4 g/dL 13.0-16.5 [facility] Blood lymphocytes/100 leukoc ytesOrdered By: Guilherme Butt on 07-21-2022 Lymphocytes/100 WBC (Bld) 26.7 % 19-41 [facility] Blood monocytes/100 leukocyt esOrdered By: Guilherme Butt on 07-21-2022 Monocytes/100 WBC (Bld) 9.6 % 0-10 [facility] Blood platelet mean volumeOr dered By: Guilherme Butt on 07-21-2022 Platelet mean volume (Bld) [Entitic vol] 9.3 fL 6.2-12.0 [facility] Determination of erythrocyte mean corpuscular volume (MCV)Ordered By: Guilherme Butt on 07-21-2022 MCV (RBC) [Entitic vol] 95.1 fL 80-94 [facility] Hematocrit Auto (Bld) [Volum e fraction]Ordered By: Guilherme Butt on 07-21-2022 Hematocrit (Bld) [Volume fraction] 39.0 % 40-54 [facility] - Chemistry and C hemistry - challengeOrdered By: Guilherme Butt on 07-21-2022 CO2 [Moles/Vol] 28.0 mmol/L 21.0-32.0 [facility] Urea nitrogen/Creatinine [Mass ratio] 30.0 mg/mg 10-20 [facility] - Hematology and Cell countsOrdered By: Guilherme Butt on 07-21-2022 Erythrocyte distribution width (RBC) [Entitic vol] 44.6 fL 35.1-43.9 [facility] Erythrocyte distribution width (RBC) [Ratio] 12.8 % 11.6-14.6 [facility] Immature granulocytes/100 WBC (Bld) 0.500 % 0.0-0.9 [facility] Comment on above: IG% - Immature Granu locytes (promyelocytes, myelocytes and metamyelocytes) > 1% indicates that a LEFT SHIFT is Present. MCH (RBC) [Entitic mass] 32.7 pg 27.0-32.0 [facility] Nucleated RBC/100 WBC (Bld) [Ratio] 0 % 0-5 [facility] MCHC Auto (RBC) [Mass/Vol]Or dered By: Guilherme Butt on 07-21-2022 MCHC (RBC) [Mass/Vol] 34.4 g/dL 32-36 [facility] No Panel InformationOrdered By: Guilherme Butt on 07-21-2022 Estimated GFR (MDRD) Amer 101 mL/min >60 [facility] Comment on above: GFR Calc Estimated GFR (MDRD) Non-Af Amer 84 mL/min >60 [facility] Comment on above: Non- GFR Calc Platelets bldOrdered By: Jamaal Butt on 07-21-2022 Platelets (Bld) [#/Vol] 155 10*3/uL 150-450 [facility] Serum or plasma calcium farshad urement (mass/volume)Ordered By: Guilherme Butt on 07-21-2022 Calcium [Mass/Vol] 8.7 mg/dL 8.5-10.1 [facility] Serum or plasma creatinine m easurement (mass/volume)Ordered By: Guilherme Butt on 07-21-2022 Creatinine [Mass/Vol] 0.93 mg/dL 0.70-1.30 [facility] Comment on above: The validity of the calculated GFR & GFRAA in patients over 70 years has not been determined. Clinical correlation is essential. Serum or plasma urea nitroge n measurement (mass/volume)Ordered By: Kellychesapeakedmitri Butt on 07-21-2022 Urea nitrogen [Mass/Vol] 28 mg/dL 7-18 [facility] Thin prep Papanicolaou smear with manual screeningOrdered By: Kellychesapeakedmitri Butt on 07-21-2022 Thin prep Papanicolaou smear with manual screening 8 5-15 [facility] Basophil percentageOrdered B y: [facility] on 06-23-2022 Chloride [Moles/Vol] 105 mmol/L 98-107 [facility] Glucose [Mass/Vol] 100 mg/dL 74-106 [facility] Comment on above: Fasting Glucose resu lt from 100 to 125 mg/dL suggests IMPAIRED HOMEOSTASIS per A.D.A. criteria. Potassium [Moles/Vol] 4.5 mmol/L 3.5-5.1 [facility] Sodium [Moles/Vol] 142 mmol/L 136-145 [facility] WBC (Bld) [#/Vol] 6.2 10*3/uL 4.4-11.0 [facility] Blood erythrocytes count (nu mber/volume)Ordered By: [facility] on 06-23-2022 RBC (Bld) [#/Vol] 4.28 10*6/uL 4.6-6.2 [facility] Blood hemoglobin measurement (mass/volume)Ordered By: [facility] on 06-23-2022 Hemoglobin (Bld) [Mass/Vol] 13.6 g/dL 13.0-16.5 [facility] Blood platelet mean volumeOr dered By: [facility] on 06-23-2022 Platelet mean volume (Bld) [Entitic vol] 9.3 fL 6.2-12.0 [facility] Determination of erythrocyte mean corpuscular volume (MCV)Ordered By: [facility] on 06-23-2022 MCV (RBC) [Entitic vol] 97.9 fL 80-94 [facility] Hematocrit Auto (Bld) [Volum e fraction]Ordered By: [facility] on 06-23-2022 Hematocrit (Bld) [Volume fraction] 41.9 % 40-54 [facility] Laboratory - Chemistry and C hemistry - challengeOrdered By: [facility] on 06-23-2022 CO2 [Moles/Vol] 32.0 mmol/L 21.0-32.0 [facility] Urea nitrogen/Creatinine [Mass ratio] 33.0 mg/mg 10- [facility] Laboratory - Hematology and Cell countsOrdered By: [facility] on 06-23-2022 Erythrocyte distribution width (RBC) [Entitic vol] 45.8 fL 35.1-43.9 [facility] Erythrocyte distribution width (RBC) [Ratio] 12.9 % 11.6-14.6 [facility] MCH (RBC) [Entitic mass] 31.8 pg 27.0-32.0 [facility] MCHC Auto (RBC) [Mass/Vol]Or dered By: [facility] on 06-23-2022 MCHC (RBC) [Mass/Vol] 32.5 g/dL 32-36 [facility] No Panel InformationOrdered By: [facility] on 06-23-2022 Estimated GFR (MDRD) Amer 84 mL/min >60 [facility] Comment on above: GFR Calc Estimated GFR (MDRD) Non-Af Amer 70 mL/min >60 [facility] Comment on above: Non- GFR Calc Platelets bldOrdered By: [facility] on 06-23-2022 Platelets (Bld) [#/Vol] 183 10*3/uL 150-450 [facility] Serum or plasma calcium farshad urement (mass/volume)Ordered By: [facility] on 06-23-2022 Calcium [Mass/Vol] 9.2 mg/dL 8.5-10.1 [facility] Serum or plasma creatinine m easurement (mass/volume)Ordered By: [facility] on 06-23-2022 Creatinine [Mass/Vol] 1.09 mg/dL 0.70-1.30 [facility] Comment on above: The validity of the calculated GFR & GFRAA in patients over 70 years has not been determined. Clinical correlation is essential. Serum or plasma urea nitroge n measurement (mass/volume)Ordered By: [facility] on 06-23-2022 Urea nitrogen [Mass/Vol] 36 mg/dL 7-18 [facility] Thin prep Papanicolaou smear with manual screeningOrdered By: Howard Aldana on 06-23-2022 Thin prep Papanicolaou smear with manual screening 5 5-15 [facility] Basophil percentageOrdered B y: Maikel Mosquera on 05-26-2022 Chloride [Moles/Vol] 106 mmol/L 98-107 [facility] Glucose [Mass/Vol] 100 mg/dL 74-106 [facility] Comment on above: Fasting Glucose resu lt from 100 to 125 mg/dL suggests IMPAIRED HOMEOSTASIS per A.D.A. criteria. Potassium [Moles/Vol] 4.8 mmol/L 3.5-5.1 [facility] Sodium [Moles/Vol] 141 mmol/L 136-145 [facility] WBC (Bld) [#/Vol] 5.1 10*3/uL 4.4-11.0 [facility] Blood erythrocytes count (nu mber/volume)Ordered By: Maikel Mosquera on 05-26-2022 RBC (Bld) [#/Vol] 4.34 10*6/uL 4.6-6.2 [facility] Blood hemoglobin measurement (mass/volume)Ordered By: Maikel Mosquera on 05-26-2022 Hemoglobin (Bld) [Mass/Vol] 13.8 g/dL 13.0-16.5 [facility] Blood platelet mean volumeOr dered By: Maikel Mosquera on 05-26-2022 Platelet mean volume (Bld) [Entitic vol] 9.5 fL 6.2-12.0 [facility] Determination of erythrocyte mean corpuscular volume (MCV)Ordered By: Maikel Mosquera on 05-26-2022 MCV (RBC) [Entitic vol] 96.3 fL 80-94 [facility] Hematocrit Auto (Bld) [Volum e fraction]Ordered By: Maikel Mosquera on 05-26-2022 Hematocrit (Bld) [Volume fraction] 41.8 % 40-54 [facility] Laboratory - Chemistry and C hemistry - challengeOrdered By: Maikel Mosquera on 05-26-2022 CO2 [Moles/Vol] 30.0 mmol/L 21.0-32.0 [facility] Urea nitrogen/Creatinine [Mass ratio] 33.7 mg/mg 10-20 [facility] Laboratory - Hematology and Cell countsOrdered By: Maikel Mosquera on 05-26-2022 Erythrocyte distribution width (RBC) [Entitic vol] 44.0 fL 35.1-43.9 [facility] Erythrocyte distribution width (RBC) [Ratio] 12.5 % 11.6-14.6 [facility] MCH (RBC) [Entitic mass] 31.8 pg 27.0-32.0 [facility] MCHC Auto (RBC) [Mass/Vol]Or dered By: Maikel Mosquera on 05-26-2022 MCHC (RBC) [Mass/Vol] 33.0 g/dL 32-36 [facility] No Panel InformationOrdered By: Maikel Mosquera on 05-26-2022 Estimated GFR (MDRD) Amer 89 mL/min >60 [facility] Comment on above: GFR Calc Estimated GFR (MDRD) Non-Af Amer 74 mL/min >60 [facility] Comment on above: Non- GFR Calc Platelets bldOrdered By: Chance Mosquera on 05-26-2022 Platelets (Bld) [#/Vol] 185 10*3/uL 150-450 [facility] Serum or plasma calcium farshad urement (mass/volume)Ordered By: Maikel Mosquera on 05-26-2022 Calcium [Mass/Vol] 9.0 mg/dL 8.5-10.1 [facility] Serum or plasma creatinine m easurement (mass/volume)Ordered By: Maikel Mosquera on 05-26-2022 Creatinine [Mass/Vol] 1.04 mg/dL 0.70-1.30 [facility] Comment on above: The validity of the calculated GFR & GFRAA in patients over 70 years has not been determined. Clinical correlation is essential. Serum or plasma urea nitroge n measurement (mass/volume)Ordered By: Maikel Mosquera on 05-26-2022 Urea nitrogen [Mass/Vol] 35 mg/dL 7-18 [facility] Thin prep Papanicolaou smear with manual screeningOrdered By: Maikel Mosquera on 05-26-2022 Thin prep Papanicolaou smear with manual screening 5 5-15 [facility] Basophil percentageOrdered B y: Maikel Mosquera on 04-21-2022 Chloride [Moles/Vol] 108 mmol/L 98-107 [facility] Glucose [Mass/Vol] 104 mg/dL 74-106 [facility] Comment on above: Fasting Glucose resu lt from 100 to 125 mg/dL suggests IMPAIRED HOMEOSTASIS per A.D.A. criteria. Potassium [Moles/Vol] 4.3 mmol/L 3.5-5.1 [facility] Sodium [Moles/Vol] 142 mmol/L 136-145 [facility] WBC (Bld) [#/Vol] 4.4 10*3/uL 4.4-11.0 [facility] Blood erythrocytes count (nu mber/volume)Ordered By: Maikel Mosquera on 04-21-2022 RBC (Bld) [#/Vol] 4.18 10*6/uL 4.6-6.2 [facility] Blood hemoglobin measurement (mass/volume)Ordered By: Maikel Mosquera on 04-21-2022 Hemoglobin (Bld) [Mass/Vol] 13.2 g/dL 13.0-16.5 [facility] Blood platelet mean volumeOr dered By: Maikel Mosquera on 04-21-2022 Platelet mean volume (Bld) [Entitic vol] 9.6 fL 6.2-12.0 [facility] Determination of erythrocyte mean corpuscular volume (MCV)Ordered By: Maikel Mosquera on 04-21-2022 MCV (RBC) [Entitic vol] 97.1 fL 80-94 [facility] Hematocrit Auto (Bld) [Volum e fraction]Ordered By: Maikel Mosquera on 04-21-2022 Hematocrit (Bld) [Volume fraction] 40.6 % 40-54 [facility] Laboratory - Chemistry and C hemistry - challengeOrdered By: Maikel Mosquera on 04-21-2022 CO2 [Moles/Vol] 30.0 mmol/L 21.0-32.0 [facility] Urea nitrogen/Creatinine [Mass ratio] 33.0 mg/mg 10-20 [facility] - Hematology and Cell countsOrdered By: Maikel Mosquera on 04-21-2022 Erythrocyte distribution width (RBC) [Entitic vol] 46.2 fL 35.1-43.9 [facility] Erythrocyte distribution width (RBC) [Ratio] 12.9 % 11.6-14.6 [facility] MCH (RBC) [Entitic mass] 31.6 pg 27.0-32.0 [facility] MCHC Auto (RBC) [Mass/Vol]Or dered By: Maikel Mosquera on 04-21-2022 MCHC (RBC) [Mass/Vol] 32.5 g/dL 32-36 [facility] No Panel InformationOrdered By: Maikel Mosquera on 04-21-2022 Estimated GFR (MDRD) Amer 90 mL/min >60 [facility] Comment on above: GFR Calc Estimated GFR (MDRD) Non-Af Amer 75 mL/min >60 [facility] Comment on above: Non- GFR Calc Platelets bldOrdered By: Chance Mosquera on 04-21-2022 Platelets (Bld) [#/Vol] 177 10*3/uL 150-450 [facility] Serum or plasma calcium farshad urement (mass/volume)Ordered By: Maikel Mosquera on 04-21-2022 Calcium [Mass/Vol] 9.1 mg/dL 8.5-10.1 [facility] Serum or plasma creatinine m easurement (mass/volume)Ordered By: Maikel Mosquera on 04-21-2022 Creatinine [Mass/Vol] 1.03 mg/dL 0.70-1.30 [facility] Comment on above: The validity of the calculated GFR & GFRAA in patients over 70 years has not been determined. Clinical correlation is essential. Serum or plasma urea nitroge n measurement (mass/volume)Ordered By: Maikel Mosquera on 04-21-2022 Urea nitrogen [Mass/Vol] 34 mg/dL 7-18 [facility] Thin prep Papanicolaou smear with manual screeningOrdered By: Maikel Mosquera on 04-21-2022 Thin prep Papanicolaou smear with manual screening 4 5-15 [facility] Absolute lymphocyte countOrd ered By: Dr. Sanchez on 04-03-2022 Lymphocytes Auto (Unsp spec) [#/Vol] 1.15 10*3/uL 0.83-4.51 [facility] Basophil percentageOrdered B y: Dr. Sanchez on 04-03-2022 Basophils/100 WBC (Bld) 0.4 % 0-1 [facility] Chloride [Moles/Vol] 106 mmol/L 98-107 [facility] Eosinophils/100 WBC (Bld) 3.3 % 0-5 [facility] Glucose [Mass/Vol] 140 mg/dL 74-106 [facility] Comment on above: Fasting Glucose resu lt greater than or equal to 126 mg/dL suggests DIABETES MELLITUS per A.D.A. criteria. Neutrophils (Bld) [#/Vol] 2.9 10*3/uL 2.0-7.7 [facility] Neutrophils/100 WBC (Bld) 63.1 % 47-70 [facility] Potassium [Moles/Vol] 4.2 mmol/L 3.5-5.1 [facility] Sodium [Moles/Vol] 142 mmol/L 136-145 [facility] WBC (Bld) [#/Vol] 4.6 10*3/uL 4.4-11.0 [facility] Blood erythrocytes count (nu mber/volume)Ordered By: Dr. Sanchez on 04-03-2022 RBC (Bld) [#/Vol] 4.45 10*6/uL 4.6-6.2 [facility] Blood hemoglobin measurement (mass/volume)Ordered By: Dr. Sanchez on 04-03-2022 Hemoglobin (Bld) [Mass/Vol] 14.1 g/dL 13.0-16.5 [facility] Blood lymphocytes/100 leukoc ytesOrdered By: Dr. Sanchez on 04-03-2022 Lymphocytes/100 WBC (Bld) 25.3 % 19-41 [facility] Blood monocytes/100 leukocyt esOrdered By: Dr. Sanchez on 04-03-2022 Monocytes/100 WBC (Bld) 7.7 % 0-10 [facility] Blood platelet mean volumeOr dered By: Dr. Sanchez on 04-03-2022 Platelet mean volume (Bld) [Entitic vol] 9.3 fL 6.2-12.0 [facility] Determination of erythrocyte mean corpuscular volume (MCV)Ordered By: Dr. Sanchez on 04-03-2022 MCV (RBC) [Entitic vol] 95.5 fL 80-94 [facility] Hematocrit Auto (Bld) [Volum e fraction]Ordered By: Dr. Sanchez on 04-03-2022 Hematocrit (Bld) [Volume fraction] 42.5 % 40-54 [facility] Laboratory - Chemistry and C hemistry - challengeOrdered By: Dr. Sanchez on 04-03-2022 CO2 [Moles/Vol] 31.0 mmol/L 21.0-32.0 [facility] Urea nitrogen/Creatinine [Mass ratio] 30.7 mg/mg 10-20 [facility] Laboratory - Hematology and Cell countsOrdered By: Dr. Sanchez on 04-03-2022 Erythrocyte distribution width (RBC) [Entitic vol] 45.9 fL 35.1-43.9 [facility] Erythrocyte distribution width (RBC) [Ratio] 12.9 % 11.6-14.6 [facility] Immature granulocytes/100 WBC (Bld) 0.200 % 0.0-0.9 [facility] Comment on above: IG% - Immature Granu locytes (promyelocytes, myelocytes and metamyelocytes) > 1% indicates that a LEFT SHIFT is Present. MCH (RBC) [Entitic mass] 31.7 pg 27.0-32.0 [facility] Nucleated RBC/100 WBC (Bld) [Ratio] 0 % 0-5 [facility] MCHC Auto (RBC) [Mass/Vol]Or dered By: Dr. Sanchez on 04-03-2022 MCHC (RBC) [Mass/Vol] 33.2 g/dL 32-36 [facility] No Panel InformationOrdered By: Dr. Sanchez on 04-03-2022 Troponin I High Sensitivity 7 pg/mL 3.0-78.0 [facility] Comment on above: Please Note: [place] t Units and Gender Specific Reference Ranges. For more information see Policy Stat Procedure [place] High Sensitivity Troponin (TNIH) and attachments. Estimated Creatinine Clearance Calc 70.39 ml/min [facility] Estimated GFR (MDRD) Amer 96 mL/min >60 [facility] Comment on above: GFR Calc Estimated GFR (MDRD) Non-Af Amer 79 mL/min >60 [facility] Comment on above: Non- GFR Calc Platelets bldOrdered By: Dr. Sanchez on 04-03-2022 Platelets (Bld) [#/Vol] 173 10*3/uL 150-450 [facility] Serum or plasma calcium farshad urement (mass/volume)Ordered By: Dr. Sanchez on 04-03-2022 Calcium [Mass/Vol] 9.1 mg/dL 8.5-10.1 [facility] Serum or plasma creatinine m easurement (mass/volume)Ordered By: Dr. Sanchez on 04-03-2022 Creatinine [Mass/Vol] 0.98 mg/dL 0.70-1.30 [facility] Comment on above: The validity of the calculated GFR & GFRAA in patients over 70 years has not been determined. Clinical correlation is essential. Serum or plasma urea nitroge n measurement (mass/volume)Ordered By: Dr. Sanchez on 04-03-2022 Urea nitrogen [Mass/Vol] 30 mg/dL 7-18 [facility] Thin prep Papanicolaou smear with manual screeningOrdered By: Dr. Sanchez on 04-03-2022 Thin prep Papanicolaou smear with manual screening 5 5-15 [facility] Basophil percentageOrdered B y: Maikel Mosquera on 03-24-2022 Chloride [Moles/Vol] 105 mmol/L 98-107 [facility] Glucose [Mass/Vol] 85 mg/dL 74-106 [facility] Potassium [Moles/Vol] 4.7 mmol/L 3.5-5.1 [facility] Sodium [Moles/Vol] 140 mmol/L 136-145 [facility] WBC (Bld) [#/Vol] 4.9 10*3/uL 4.4-11.0 [facility] Blood erythrocytes count (nu mber/volume)Ordered By: Maikel Mosquera on 03-24-2022 RBC (Bld) [#/Vol] 4.14 10*6/uL 4.6-6.2 [facility] Blood hemoglobin measurement (mass/volume)Ordered By: Maikel Mosquera on 03-24-2022 Hemoglobin (Bld) [Mass/Vol] 13.0 g/dL 13.0-16.5 [facility] Blood platelet mean volumeOr dered By: Maikel Mosquera on 03-24-2022 Platelet mean volume (Bld) [Entitic vol] 9.5 fL 6.2-12.0 [facility] Determination of erythrocyte mean corpuscular volume (MCV)Ordered By: Maikel Mosquera on 03-24-2022 MCV (RBC) [Entitic vol] 94.9 fL 80-94 [facility] Hematocrit Auto (Bld) [Volum e fraction]Ordered By: Maikel Mosquera on 03-24-2022 Hematocrit (Bld) [Volume fraction] 39.3 % 40-54 [facility] Laboratory - Chemistry and C hemistry - challengeOrdered By: Maikel Mosquera on 03-24-2022 CO2 [Moles/Vol] 30.0 mmol/L 21.0-32.0 [facility] Urea nitrogen/Creatinine [Mass ratio] 29.8 mg/mg 10-20 [facility] Laboratory - Hematology and Cell countsOrdered By: Maikel Mosquera on 03-24-2022 Erythrocyte distribution width (RBC) [Entitic vol] 45.6 fL 35.1-43.9 [facility] Erythrocyte distribution width (RBC) [Ratio] 13.1 % 11.6-14.6 [facility] MCH (RBC) [Entitic mass] 31.4 pg 27.0-32.0 [facility] MCHC Auto (RBC) [Mass/Vol]Or dered By: Maikel Mosquera on 03-24-2022 MCHC (RBC) [Mass/Vol] 33.1 g/dL 32-36 [facility] No Panel InformationOrdered By: Maikel Mosquera on 03-24-2022 Estimated GFR (MDRD) Amer 89 mL/min >60 [facility] Comment on above: GFR Calc Estimated GFR (MDRD) Non-Af Amer 74 mL/min >60 [facility] Comment on above: Non- GFR Calc Platelets bldOrdered By: Chance Mosquera on 03-24-2022 Platelets (Bld) [#/Vol] 169 10*3/uL 150-450 [facility] Serum or plasma calcium farshad urement (mass/volume)Ordered By: Maikel Mosquera on 03-24-2022 Calcium [Mass/Vol] 8.8 mg/dL 8.5-10.1 [facility] Serum or plasma creatinine m easurement (mass/volume)Ordered By: Maikel Mosquera on 03-24-2022 Creatinine [Mass/Vol] 1.04 mg/dL 0.70-1.30 [facility] Comment on above: The validity of the calculated GFR & GFRAA in patients over 70 years has not been determined. Clinical correlation is essential. Serum or plasma urea nitroge n measurement (mass/volume)Ordered By: Maikel Mosquera on 03-24-2022 Urea nitrogen [Mass/Vol] 31 mg/dL 7-18 [facility] Thin prep Papanicolaou smear with manual screeningOrdered By: Maikel Mosquera on 03-24-2022 Thin prep Papanicolaou smear with manual screening 5 5-15 [facility] Basophil percentageOrdered B y: Maikel Mosquera on 02-24-2022 Chloride [Moles/Vol] 107 mmol/L 98-107 [facility] Glucose [Mass/Vol] 87 mg/dL 74-106 [facility] Potassium [Moles/Vol] 4.8 mmol/L 3.5-5.1 [facility] Sodium [Moles/Vol] 141 mmol/L 136-145 [facility] WBC (Bld) [#/Vol] 5.2 10*3/uL 4.4-11.0 [facility] Blood erythrocytes count (nu mber/volume)Ordered By: Maikel Mosquera on 02-24-2022 RBC (Bld) [#/Vol] 4.39 10*6/uL 4.6-6.2 [facility] Blood hemoglobin measurement (mass/volume)Ordered By: Maikel Mosquera on 02-24-2022 Hemoglobin (Bld) [Mass/Vol] 14.3 g/dL 13.0-16.5 [facility] Blood platelet mean volumeOr dered By: Maikel Mosquera on 02-24-2022 Platelet mean volume (Bld) [Entitic vol] 9.2 fL 6.2-12.0 [facility] Determination of erythrocyte mean corpuscular volume (MCV)Ordered By: Maikel Mosquera on 02-24-2022 MCV (RBC) [Entitic vol] 95.4 fL 80-94 [facility] Hematocrit Auto (Bld) [Volum e fraction]Ordered By: Maikel Mosquera on 02-24-2022 Hematocrit (Bld) [Volume fraction] 41.9 % 40-54 [facility] Laboratory - Chemistry and C hemistry - challengeOrdered By: Maikel Mosquera on 02-24-2022 CO2 [Moles/Vol] 30.0 mmol/L 21.0-32.0 [facility] Urea nitrogen/Creatinine [Mass ratio] 27.5 mg/mg 10-20 [facility] Laboratory - Hematology and Cell countsOrdered By: Maikel Mosquera on 02-24-2022 Erythrocyte distribution width (RBC) [Entitic vol] 44.2 fL 35.1-43.9 [facility] Erythrocyte distribution width (RBC) [Ratio] 12.6 % 11.6-14.6 [facility] MCH (RBC) [Entitic mass] 32.6 pg 27.0-32.0 [facility] MCHC Auto (RBC) [Mass/Vol]Or dered By: Maikel Mosquera on 02-24-2022 MCHC (RBC) [Mass/Vol] 34.1 g/dL 32-36 [facility] No Panel InformationOrdered By: Maikel Mosquera on 02-24-2022 Estimated GFR (MDRD) Amer 91 mL/min >60 [facility] Comment on above: GFR Calc Estimated GFR (MDRD) Non-Af Amer 75 mL/min >60 [facility] Comment on above: Non- GFR Calc Platelets bldOrdered By: Chance Mosquera on 02-24-2022 Platelets (Bld) [#/Vol] 162 10*3/uL 150-450 [facility] Serum or plasma calcium farshad urement (mass/volume)Ordered By: Maikel Mosquera on 02-24-2022 Calcium [Mass/Vol] 9.1 mg/dL 8.5-10.1 [facility] Serum or plasma creatinine m easurement (mass/volume)Ordered By: Maikel Mosquera on 02-24-2022 Creatinine [Mass/Vol] 1.02 mg/dL 0.70-1.30 [facility] Comment on above: The validity of the calculated GFR & GFRAA in patients over 70 years has not been determined. Clinical correlation is essential. Serum or plasma urea nitroge n measurement (mass/volume)Ordered By: Maikel Mosquera on 02-24-2022 Urea nitrogen [Mass/Vol] 28 mg/dL 7-18 [facility] Thin prep Papanicolaou smear with manual screeningOrdered By: Maikel Mosquera on 02-24-2022 Thin prep Papanicolaou smear with manual screening 4 5-15 [facility] Basophil percentageon 2021 Bilirubin [Mass/Vol] 0.50 mg/dL 0.20-1.00 [facility] Work Phone: Comment on above: For patients on eltr ombopag therapy, use of Dimension [place] TBIL is not recommended. Cholesterol [Mass/Vol] 184 mg/dL <200 [facility] Work Phone: Comment on above: <200 mg/dL Desirable 200-240 mg/dL Borderline >240 mg/dL High Risk Protein [Mass/Vol] 6.3 g/dL 6.4-8.2 [facility] Work Phone: Triglyceride [Mass/Vol] 103 mg/dL <199 [facility] Work Phone: Comment on above: The drugs N-Acetylcy steine and Metamizole may falsely depress this assay.Serum Triglycerides Reference Interval Normal <150 mg/dL Borderline high 150 - 199 mg/dL High 200 - 499 mg/dL Very High > or = 500 mg/dL Direct bilirubinon 2 Bilirubin.direct [Mass/Vol] 0.12 mg/dL 0.00-0.30 [facility] Work Phone: Laboratory - Chemistry and C hemistry - challengeon 02-07-2022 ALP [Catalytic activity/Vol] 118 U/L 45-117 [facility] Work Phone: ALT [Catalytic activity/Vol] 8 U/L 16-61 [facility] Work Phone: Free T4 [Mass/Vol] 0.87 ng/dL 0.76-1.46 [facility] Work Phone: Globulin (S) [Mass/Vol] 3.0 g/dL 2.2-4.2 [facility] Work Phone: No Panel Informationon 02-07 Thyroid Stimulating Hormone (TSH) 0.81 uIU/mL 0.358-3.74 [facility] Work Phone: Serum or plasma albumin farshad urement (mass/volume)on 02-07-2022 Albumin [Mass/Vol] 3.3 g/dL 3.2-5.0 [facility] Work Phone: Serum or plasma cholesterol in HDL measurement (mass/volume)on 02-07-2022 Cholesterol in HDL [Mass/Vol] 44 mg/dL >40 [facility] Work Phone: Comment on above: The drugs N-Acetylcy steine and Metamizole may falsely depress this assay. Reference Range HDL <40 mg/dL Low HDL Cholesterol HDL >or= 60 mg/dL High HDL Cholesterol Serum or plasma cholesterol in VLDL measurement (mass/volume)on 02-07-2022 Cholesterol in VLDL [Mass/Vol] 21 mg/dL 5-40 [facility] Work Phone: Serum or plasma low density lipoprotein (LDL) cholesterol measurement (mass/volume)on 02-07-2022 Cholesterol in LDL [Mass/Vol] 119 mg/dL 0-130 [facility] Work Phone: Thin prep Papanicolaou smear with manual screeningon 02-07-2022 Thin prep Papanicolaou smear with manual screening 12 U/L 15-37 [facility] Work Phone: Whole blood hemoglobin A1c/t otal hemoglobin ratio (mass fraction)on 02-07-2022 HbA1c (Bld) [Mass fraction] 5.6 % 3.8-5.6 [facility] Work Phone: Comment on above: Normal < 5.7 % Predi abetic 5.7 - 6.4 % Diabetic >or= 6.5 % Please note range changes. Basophil percentageon 2021 Chloride [Moles/Vol] 104 mmol/L 98-107 [facility] Work Phone: Glucose [Mass/Vol] 87 mg/dL 74-106 [facility] Work Phone: Potassium [Moles/Vol] 4.3 mmol/L 3.5-5.1 [facility] Work Phone: Sodium [Moles/Vol] 140 mmol/L 136-145 [facility] Work Phone: WBC (Bld) [#/Vol] 4.6 10*3/uL 4.4-11.0 [facility] Work Phone: Blood erythrocytes count (nu mber/volume)on 01-20-2022 RBC (Bld) [#/Vol] 4.17 10*6/uL 4.6-6[facility] Blood hemoglobin measurement (mass/volume)on 01-20-2022 Hemoglobin (Bld) [Mass/Vol] 13.2 g/dL 13.0-16.5 [facility] Work Phone: Blood platelet mean volumeon 01-20-2022 Platelet mean volume (Bld) [Entitic vol] 9.2 fL 6.2-12.0 [facility] Work Phone: Determination of erythrocyte mean corpuscular volume (MCV)on 01-20-2022 MCV (RBC) [Entitic vol] 93.0 fL 80-94 [facility] Work Phone: Hematocrit Auto (Bld) [Volum e fraction]on 01-20-2022 Hematocrit (Bld) [Volume fraction] 38.8 % 40-54 [facility] Work Phone: Laboratory - Chemistry and C hemistry - challengeon 01-20-2022 CO2 [Moles/Vol] 29.0 mmol/L 21.0-32.0 [facility] Work Phone: Urea nitrogen/Creatinine [Mass ratio] 28.6 mg/mg 10-20 [facility] Work Phone: Laboratory - Hematology and Cell countson 01-20-2022 Erythrocyte distribution width (RBC) [Entitic vol] 42.7 fL 35.1-43.9 [facility] Work Phone: Erythrocyte distribution width (RBC) [Ratio] 12.6 % 11.6-14.6 [facility] Work Phone: MCH (RBC) [Entitic mass] 31.7 pg 27.0-32.0 [facility] Work Phone: MCHC Auto (RBC) [Mass/Vol]on 01-20-2022 MCHC (RBC) [Mass/Vol] 34.0 g/dL 32-36 [facility] Work Phone: No Panel Informationon 01-20 Estimated GFR (MDRD) Amer 100 mL/min >60 [facility] Work Phone: Comment on above: GFR Calc Estimated GFR (MDRD) Non-Af Amer 82 mL/min >60 [facility] Work Phone: Comment on above: Non- GFR Calc Platelets bldon 01-20-2022 Platelets (Bld) [#/Vol] 178 10*3/uL 150-450 [facility] Work Phone: Serum or plasma calcium farshad urement (mass/volume)on 01-20-2022 Calcium [Mass/Vol] 9.0 mg/dL 8.5-10.1 [facility] Work Phone: Serum or plasma creatinine m easurement (mass/volume)on 01-20-2022 Creatinine [Mass/Vol] 0.94 mg/dL 0.70-1.30 [facility] Work Phone: Comment on above: The validity of the calculated GFR & GFRAA in patients over 70 years has not been determined. Clinical correlation is essential. Serum or plasma urea nitroge n measurement (mass/volume)on 01-20-2022 Urea nitrogen [Mass/Vol] 27 mg/dL 7-18 [facility] Work Phone: Thin prep Papanicolaou smear with manual screeningon 01-20-2022 Thin prep Papanicolaou smear with manual screening 7 5-15 [facility] Work Phone: Basophil percentageon 2021 Chloride [Moles/Vol] 105 mmol/L 98-107 [facility] Work Phone: Glucose [Mass/Vol] 89 mg/dL 74-106 [facility] Work Phone: Potassium [Moles/Vol] 4.2 mmol/L 3.5-5.1 [facility] Work Phone: Sodium [Moles/Vol] 138 mmol/L 136-145 [facility] Work Phone: WBC (Bld) [#/Vol] 4.2 10*3/uL 4.4-11.0 [facility] Work Phone: Blood erythrocytes count (nu mber/volume)on 12-23-2021 RBC (Bld) [#/Vol] 4.15 10*6/uL 4.6-6.[facility]: Blood hemoglobin measurement (mass/volume)on 12-23-2021 Hemoglobin (Bld) [Mass/Vol] 13.5 g/dL 13.0-16.5 [facility] Work Phone: Blood platelet mean volumeon 12-23-2021 Platelet mean volume (Bld) [Entitic vol] 9.3 fL 6.2-12.0 [facility] Work Phone: Determination of erythrocyte mean corpuscular volume (MCV)on 12-23-2021 MCV (RBC) [Entitic vol] 94.5 fL 80-94 [facility] Work Phone: Hematocrit Auto (Bld) [Volum e fraction]on 12-23-2021 Hematocrit (Bld) [Volume fraction] 39.2 % 40-54 [facility] Work Phone: Laboratory - Chemistry and C hemistry - challengeon 12-23-2021 CO2 [Moles/Vol] 29.0 mmol/L 21.0-32.0 [facility] Work Phone: Urea nitrogen/Creatinine [Mass ratio] 35.5 mg/mg 10-20 [facility] Work Phone: Laboratory - Hematology and Cell countson 12-23-2021 Erythrocyte distribution width (RBC) [Entitic vol] 43.9 fL 35.1-43.9 [facility] Work Phone: Erythrocyte distribution width (RBC) [Ratio] 12.7 % 11.6-14.6 [facility] Work Phone: MCH (RBC) [Entitic mass] 32.5 pg 27.0-32.0 [facility] Work Phone: MCHC Auto (RBC) [Mass/Vol]on 12-23-2021 MCHC (RBC) [Mass/Vol] 34.4 g/dL 32-36 [facility] Work Phone: No Panel Informationon 12-23 Estimated GFR (MDRD) Amer 114 mL/min >60 [facility] Work Phone: Comment on above: GFR Calc Estimated GFR (MDRD) Non-Af Amer 94 mL/min >60 [facility] Work Phone: Comment on above: Non- GFR Calc Platelets bldon 12-23-2021 Platelets (Bld) [#/Vol] 173 10*3/uL 150-450 [facility] Work Phone: Serum or plasma calcium farshad urement (mass/volume)on 12-23-2021 Calcium [Mass/Vol] 8.9 mg/dL 8.5-10.1 [facility] Work Phone: Serum or plasma creatinine m easurement (mass/volume)on 12-23-2021 Creatinine [Mass/Vol] 0.84 mg/dL 0.70-1.30 [facility] Work Phone: Comment on above: The validity of the calculated GFR & GFRAA in patients over 70 years has not been determined. Clinical correlation is essential. Serum or plasma urea nitroge n measurement (mass/volume)on 12-23-2021 Urea nitrogen [Mass/Vol] 30 mg/dL 7-18 [facility] Work Phone: Thin prep Papanicolaou smear with manual screeningon 12-23-2021 Thin prep Papanicolaou smear with manual screening 4 5-15 [facility] Work Phone: Basophil percentageon 2021 Chloride [Moles/Vol] 108 mmol/L 98-107 [facility] Work Phone: Glucose [Mass/Vol] 85 mg/dL 74-106 [facility] Work Phone: Potassium [Moles/Vol] 4.5 mmol/L 3.5-5.1 [facility] Work Phone: Sodium [Moles/Vol] 142 mmol/L 136-145 [facility] Work Phone: WBC (Bld) [#/Vol] 4.4 10*3/uL 4.4-11.0 [facility] Work Phone: Blood erythrocytes count (nu mber/volume)on 11-18-2021 RBC (Bld) [#/Vol] 4.00 10*6/uL 4.6-6.2 [facility] Work [facility]: Blood hemoglobin measurement (mass/volume)on 11-18-2021 Hemoglobin (Bld) [Mass/Vol] 12.6 g/dL 13.0-16.5 [facility] Work Phone: Blood platelet mean volumeon 11-18-2021 Platelet mean volume (Bld) [Entitic vol] 9.5 fL 6.2-12.0 [facility] Work Phone: Determination of erythrocyte mean corpuscular volume (MCV)on 11-18-2021 MCV (RBC) [Entitic vol] 93.8 fL 80-94 [facility] Work Phone: Hematocrit Auto (Bld) [Volum e fraction]on 11-18-2021 Hematocrit (Bld) [Volume fraction] 37.5 % 40-54 [facility] Work Phone: Laboratory - Chemistry and C hemistry - challengeon 11-18-2021 CO2 [Moles/Vol] 32.0 mmol/L 21.0-32.0 [facility] Work Phone: Urea nitrogen/Creatinine [Mass ratio] 31.3 mg/mg 10-20 [facility] Work Phone: Laboratory - Hematology and Cell countson 11-18-2021 Erythrocyte distribution width (RBC) [Entitic vol] 44.8 fL 35.1-43.9 [facility] Work Phone: Erythrocyte distribution width (RBC) [Ratio] 13.1 % 11.6-14.6 [facility] Work Phone: MCH (RBC) [Entitic mass] 31.5 pg 27.0-32.0 [facility] Work Phone: MCHC Auto (RBC) [Mass/Vol]on 11-18-2021 MCHC (RBC) [Mass/Vol] 33.6 g/dL 32-36 [facility] Work Phone: No Panel Informationon 11-18 Estimated GFR (MDRD) Amer 98 mL/min >60 [facility] Work Phone: Comment on above: GFR Calc Estimated GFR (MDRD) Non-Af Amer 81 mL/min >60 [facility] Work Phone: Comment on above: Non- GFR Calc Platelets bldon 11-18-2021 Platelets (Bld) [#/Vol] 175 10*3/uL 150-450 [facility] Work Phone: Serum or plasma calcium farshad urement (mass/volume)on 11-18-2021 Calcium [Mass/Vol] 9.1 mg/dL 8.5-10.1 [facility] Work Phone: Serum or plasma creatinine m easurement (mass/volume)on 11-18-2021 Creatinine [Mass/Vol] 0.96 mg/dL 0.70-1.30 [facility] Work Phone: Comment on above: The validity of the calculated GFR & GFRAA in patients over 70 years has not been determined. Clinical correlation is essential. Serum or plasma urea nitroge n measurement (mass/volume)on 11-18-2021 Urea nitrogen [Mass/Vol] 30 mg/dL 7-18 [facility] Work Phone: Thin prep Papanicolaou smear with manual screeningon 11-18-2021 Thin prep Papanicolaou smear with manual screening 2 5-15 [facility] Work Phone: Basophil percentageon 2021 Chloride [Moles/Vol] 107 mmol/L 98-107 [facility] Work Phone: Glucose [Mass/Vol] 94 mg/dL 74-106 [facility] Work Phone: Potassium [Moles/Vol] 4.3 mmol/L 3.5-5.1 [facility] Work Phone: Sodium [Moles/Vol] 140 mmol/L 136-145 [facility] Work Phone: WBC (Bld) [#/Vol] 4.4 10*3/uL 4.4-11.0 [facility] Work Phone: Blood erythrocytes count (nu mber/volume)on 10-21-2021 RBC (Bld) [#/Vol] 4.01 10*6/uL 4.6-6.2 [facility] Work [facility]: Blood hemoglobin measurement (mass/volume)on 10-21-2021 Hemoglobin (Bld) [Mass/Vol] 12.7 g/dL 13.0-16.5 [facility] Work Phone: Blood platelet mean volumeon 10-21-2021 Platelet mean volume (Bld) [Entitic vol] 9.1 fL 6.2-12.0 [facility] Work Phone: Determination of erythrocyte mean corpuscular volume (MCV)on 10-21-2021 MCV (RBC) [Entitic vol] 96.8 fL 80-94 [facility] Work Phone: Hematocrit Auto (Bld) [Volum e fraction]on 10-21-2021 Hematocrit (Bld) [Volume fraction] 38.8 % 40-54 [facility] Work Phone: Laboratory - Chemistry and C hemistry - challengeon 10-21-2021 CO2 [Moles/Vol] 31.0 mmol/L 21.0-32.0 [facility] Work Phone: Urea nitrogen/Creatinine [Mass ratio] 27.8 mg/mg 10-20 [facility] Work Phone: Laboratory - Hematology and Cell countson 10-21-2021 Erythrocyte distribution width (RBC) [Entitic vol] 44.9 fL 35.1-43.9 [facility] Work Phone: Erythrocyte distribution width (RBC) [Ratio] 12.6 % 11.6-14.6 [facility] Work Phone: MCH (RBC) [Entitic mass] 31.7 pg 27.0-32.0 [facility] Work Phone: MCHC Auto (RBC) [Mass/Vol]on 10-21-2021 MCHC (RBC) [Mass/Vol] 32.7 g/dL 32-36 [facility] Work Phone: No Panel Informationon 10-21 Estimated GFR (MDRD) Amer 97 mL/min >60 [facility] Work Phone: Comment on above: GFR Calc Estimated GFR (MDRD) Non-Af Amer 80 mL/min >60 [facility] Work Phone: Comment on above: Non- GFR Calc Platelets bldon 10-21-2021 Platelets (Bld) [#/Vol] 273 10*3/uL 150-450 [facility] Work Phone: Serum or plasma calcium farshad urement (mass/volume)on 10-21-2021 Calcium [Mass/Vol] 9.1 mg/dL 8.5-10.1 [facility] Work Phone: Serum or plasma creatinine m easurement (mass/volume)on 10-21-2021 Creatinine [Mass/Vol] 0.97 mg/dL 0.70-1.30 [facility] Work Phone: Comment on above: The validity of the calculated GFR & GFRAA in patients over 70 years has not been determined. Clinical correlation is essential. Serum or plasma urea nitroge n measurement (mass/volume)on 10-21-2021 Urea nitrogen [Mass/Vol] 27 mg/dL 7-18 [facility] Work Phone: Thin prep Papanicolaou smear with manual screeningon 10-21-2021 Thin prep Papanicolaou smear with manual screening 2 5-15 [facility] Work Phone: Absolute lymphocyte counton 10-02-2021 Lymphocytes Auto (Unsp spec) [#/Vol] 0.52 10*3/uL 0.83-4.51 [facility] Work Phone: Basophil percentageon 2021 Basophil percentage 0-5 SEEN /hpf 0-5 [facility] Work Phone: Basophils/100 WBC (Bld) 0.1 % 0-1 [facility] Work Phone: Bilirubin [Mass/Vol] 1.30 mg/dL 0.20-1.00 [facility] Work Phone: Comment on above: For patients on eltr ombopag therapy, use of Dimension [place] TBIL is not recommended. Chloride [Moles/Vol] 104 mmol/L 98-107 [facility] Work Phone: Eosinophils/100 WBC (Bld) 0.1 % 0-5 [facility] Work Phone: Glucose [Mass/Vol] 135 mg/dL 74-106 [facility] Work Phone: Comment on above: Fasting Glucose resu lt greater than or equal to 126 mg/dL suggests DIABETES MELLITUS per A.D.A. criteria. Neutrophils (Bld) [#/Vol] 10.9 10*3/uL 2.0-7.7 [facility] Work Phone: Neutrophils/100 WBC (Bld) 91.6 % 47-70 [facility] Work Phone: Potassium [Moles/Vol] 4.1 mmol/L 3.5-5.1 [facility] Work Phone: Protein [Mass/Vol] 7.0 g/dL 6.4-8.2 [facility] Work Phone: Sodium [Moles/Vol] 136 mmol/L 136-145 [facility] Work Phone: WBC (Bld) [#/Vol] 11.9 10*3/uL 4.4-11.0 [facility] Work Phone: Bilirubin Test strip Ql (U)o n 10-02-2021 Bilirubin Ql (U) Negative Negative [facility] Work Phone: Blood erythrocytes count (nu mber/volume)on 10-02-2021 RBC (Bld) [#/Vol] 4.20 10*6/uL 4.6-6.2 [facility] Work Phone: Blood hemoglobin measurement (mass/volume)on 10-02-2021 Hemoglobin (Bld) [Mass/Vol] 13.7 g/dL 13.0-16.5 [facility] Work Phone: Blood lymphocytes/100 leukoc yteson 10-02-2021 Lymphocytes/100 WBC (Bld) 4.4 % 19-41 [facility] Work Phone: Blood manual differential co mment interpretation (narrative result)on 10-02-2021 Manual differential comment Jordi (Bld) [Interp] SCANNED [facility] Work Phone: Comment on above: LYMPHOPENIA NOTED Blood monocytes/100 leukocyt eson 10-02-2021 Monocytes/100 WBC (Bld) 3.3 % 0-10 [facility] Work Phone: Blood platelet mean volumeon 10-02-2021 Platelet mean volume (Bld) [Entitic vol] 9.0 fL 6.2-12.0 [facility] Work Phone: Determination of erythrocyte mean corpuscular volume (MCV)on 10-02-2021 MCV (RBC) [Entitic vol] 92.6 fL 80-94 [facility] Work Phone: Hematocrit Auto (Bld) [Volum e fraction]on 10-02-2021 Hematocrit (Bld) [Volume fraction] 38.9 % 40-54 [facility] Work Phone: Ketones Test strip Ql (U)on 10-02-2021 Ketones Ql (U) 15 mg/dl Negative [facility] Work Phone: Laboratory - Chemistry and C hemistry - challengeon 10-02-2021 ALP [Catalytic activity/Vol] 156 U/L 45-117 [facility] Work Phone: ALT [Catalytic activity/Vol] 14 U/L 16-61 [facility] Work Phone: CO2 [Moles/Vol] 26.0 mmol/L 21.0-32.0 [facility] Work Phone: Globulin (S) [Mass/Vol] 3.2 g/dL 2.2-4.2 [facility] Work Phone: Urea nitrogen/Creatinine [Mass ratio] 23.1 mg/mg 10-20 [facility] Work Phone: Laboratory - Hematology and Cell countson 10-02-2021 Erythrocyte distribution width (RBC) [Entitic vol] 42.7 fL 35.1-43.9 [facility] Work Phone: Erythrocyte distribution width (RBC) [Ratio] 12.6 % 11.6-14.6 [facility] Work Phone: Immature granulocytes/100 WBC (Bld) 0.500 % 0.0-0.9 [facility] Work Phone: Comment on above: IG% - Immature Granu locytes (promyelocytes, myelocytes and metamyelocytes) > 1% indicates that a LEFT SHIFT is Present. MCH (RBC) [Entitic mass] 32.6 pg 27.0-32.0 [facility] Work Phone: Nucleated RBC/100 WBC (Bld) [Ratio] 0 % 0-5 [facility] Work Phone: MCHC Auto (RBC) [Mass/Vol]on 10-02-2021 MCHC (RBC) [Mass/Vol] 35.2 g/dL 32-36 [facility] Work Phone: Mucus LM Ql (Urine sed)on Mucus Ql (Urine sed) RARE /hpf os [facility] Work Phone: Nitrite Test strip Ql (U)on 10-02-2021 Nitrite Ql (U) Negative Negative [facility] Work Phone: No Panel Informationon 10-02 Estimated Creatinine Clearance Calc 60.08 ml/min [facility] Work Phone: Estimated GFR (MDRD) Amer 85 mL/min >60 [facility] Work Phone: Comment on above: GFR Calc Estimated GFR (MDRD) Non-Af Amer 71 mL/min >60 [facility] Work Phone: Comment on above: Non- GFR Calc Troponin I High Sensitivity 6 pg/mL 3.0-78.0 [facility] Work Phone: Comment on above: Please Note: [place] t Units and Gender Specific Reference Ranges. For more information see Policy Stat Procedure [place] High Sensitivity Troponin (TNIH) and attachments. Platelets bldon 10-02-2021 Platelets (Bld) [#/Vol] 154 10*3/uL 150-450 [facility] Work Phone: Protein Test strip Ql (U)on 10-02-2021 Protein Ql (U) 15 mg/dl Negative [facility] Work Phone: Serum or plasma albumin farshad urement (mass/volume)on 10-02-2021 Albumin [Mass/Vol] 3.8 g/dL 3.2-5.0 [facility] Work Phone: Serum or plasma albumin/glob ulin mass ratioon 10-02-2021 Albumin/Globulin [Mass ratio] 1.2 {ratio} 0.9-2.4 [facility] Work Phone: Serum or plasma calcium farshad urement (mass/volume)on 10-02-2021 Calcium [Mass/Vol] 8.7 mg/dL 8.5-10.1 [facility] Work Phone: Serum or plasma creatinine m easurement (mass/volume)on 10-02-2021 Creatinine [Mass/Vol] 1.08 mg/dL 0.70-1.30 [facility] Work Phone: Comment on above: The validity of the calculated GFR & GFRAA in patients over 70 years has not been determined. Clinical correlation is essential. Serum or plasma urea nitroge n measurement (mass/volume)on 10-02-2021 Urea nitrogen [Mass/Vol] 25 mg/dL 7-18 [facility] Work Phone: Squamous epithelial cells de tection in urine sediment by light microscopyon 10-02-2021 Epithelial cells.squamous LM Ql (Urine sed) 0 SEEN /hpf 0-5 [facility] Work Phone: Thin prep Papanicolaou smear with manual screeningon 10-02-2021 Thin prep Papanicolaou smear with manual screening 34 U/L 15-37 [facility] Work Phone: Thin prep Papanicolaou smear with manual screening 6 5-15 [facility] Work Phone: Urine blood detectionon 09-12 RBC Ql (U) Negative Negative [facility] Work Phone: RBC Ql (U) 0 SEEN /hpf 0-5 [facility] Work Phone: Urine clarityon 10-02-2021 Clarity (U) Clear Clear [facility] Work Phone: Urine color determinationon 10-02-2021 Color (U) Yellow Yellow [facility] Work Phone: Urine glucose detectionon Glucose Ql (U) Normal mg/dl Normal [facility] Work Phone: Urine leukocyte esterase det ection by dipstickon 10-02-2021 Leukocyte esterase Test strip Ql (U) 25 /ul Negative [facility] Work Phone: Urine pHon 10-02-2021 pH (U) 6.0 [pH] 5.0 - 8.0 [facility] Work Phone: Urine sediment bacteria coun t by microscopy (number/high power field)on 10-02-2021 Bacteria LM.HPF (Urine sed) [#/Area] 0 /[HPF] None Seen [facility] Work Phone: Urine specific gravity measu rementon 10-02-2021 Specific gravity (U) [Rel density] 1.015 1.002-1.030 [facility] Work Phone: Urobilinogen Auto test strip Ql (U)on 10-02-2021 Urobilinogen Ql (U) 1 mg/dl Normal [facility] Work Phone: Basophil percentageon 2021 Chloride [Moles/Vol] 106 mmol/L 98-107 [facility] Work Phone: Glucose [Mass/Vol] 96 mg/dL 74-106 [facility] Work Phone: Potassium [Moles/Vol] 4.1 mmol/L 3.5-5.1 [facility] Work Phone: Sodium [Moles/Vol] 139 mmol/L 136-145 [facility] Work Phone: WBC (Bld) [#/Vol] 4.7 10*3/uL 4.4-11.0 [facility] Work Phone: Blood erythrocytes count (nu mber/volume)on 09-23-2021 RBC (Bld) [#/Vol] 4.10 10*6/uL 4.6-6.2 [facility] Work Phone: Blood hemoglobin measurement (mass/volume)on 09-23-2021 Hemoglobin (Bld) [Mass/Vol] 13.4 g/dL 13.0-16.5 [facility] Work Phone: Blood platelet mean volumeon 09-23-2021 Platelet mean volume (Bld) [Entitic vol] 9.5 fL 6.2-12.0 [facility] Work Phone: Determination of erythrocyte mean corpuscular volume (MCV)on 09-23-2021 MCV (RBC) [Entitic vol] 95.9 fL 80-94 [facility] Work Phone: Hematocrit Auto (Bld) [Volum e fraction]on 09-23-2021 Hematocrit (Bld) [Volume fraction] 39.3 % 40-54 [facility] Work Phone: Laboratory - Chemistry and C hemistry - challengeon 09-23-2021 CO2 [Moles/Vol] 28.0 mmol/L 21.0-32.0 [facility] Work Phone: Urea nitrogen/Creatinine [Mass ratio] 32.7 mg/mg 10-20 [facility] Work Phone: Laboratory - Hematology and Cell countson 09-23-2021 Erythrocyte distribution width (RBC) [Entitic vol] 44.1 fL 35.1-43.9 [facility] Work Phone: Erythrocyte distribution width (RBC) [Ratio] 12.7 % 11.6-14.6 [facility] Work Phone: MCH (RBC) [Entitic mass] 32.7 pg 27.0-32.0 [facility] Work Phone: MCHC Auto (RBC) [Mass/Vol]on 09-23-2021 MCHC (RBC) [Mass/Vol] 34.1 g/dL 32-36 [facility] Work Phone: No Panel Informationon 09-23 Estimated GFR (MDRD) Amer 84 mL/min >60 [facility] Work Phone: Comment on above: GFR Calc Estimated GFR (MDRD) Non-Af Amer 69 mL/min >60 [facility] Work Phone: Comment on above: Non- GFR Calc Platelets bldon 09-23-2021 Platelets (Bld) [#/Vol] 167 10*3/uL 150-450 [facility] Work Phone: Serum or plasma calcium farshad urement (mass/volume)on 09-23-2021 Calcium [Mass/Vol] 9.0 mg/dL 8.5-10.1 [facility] Work Phone: Serum or plasma creatinine m easurement (mass/volume)on 09-23-2021 Creatinine [Mass/Vol] 1.10 mg/dL 0.70-1.30 [facility] Work Phone: Comment on above: The validity of the calculated GFR & GFRAA in patients over 70 years has not been determined. Clinical correlation is essential. Serum or plasma urea nitroge n measurement (mass/volume)on 09-23-2021 Urea nitrogen [Mass/Vol] 36 mg/dL 7-18 [facility] Work Phone: Thin prep Papanicolaou smear with manual screeningon 09-23-2021 Thin prep Papanicolaou smear with manual screening 5 5-15 [facility] Work Phone: Basophil percentageon 2021 Chloride [Moles/Vol] 105 mmol/L 98-107 [facility] Work Phone: Glucose [Mass/Vol] 88 mg/dL 74-106 [facility] Work Phone: Potassium [Moles/Vol] 4.2 mmol/L 3.5-5.1 [facility] Work Phone: Sodium [Moles/Vol] 139 mmol/L 136-145 [facility] Work Phone: WBC (Bld) [#/Vol] 4.3 10*3/uL 4.4-11.0 [facility] Work Phone: Blood erythrocytes count (nu mber/volume)on 08-19-2021 RBC (Bld) [#/Vol] 4.31 10*6/uL 4.6-6.2 [facility] Work Phone: Blood hemoglobin measurement (mass/volume)on 08-19-2021 Hemoglobin (Bld) [Mass/Vol] 13.6 g/dL 13.0-16.5 [facility] Work Phone: Blood platelet mean volumeon 08-19-2021 Platelet mean volume (Bld) [Entitic vol] 9.4 fL 6.2-12.0 [facility] Work Phone: Determination of erythrocyte mean corpuscular volume (MCV)on 08-19-2021 MCV (RBC) [Entitic vol] 93.5 fL 80-94 [facility] Work Phone: Hematocrit Auto (Bld) [Volum e fraction]on 08-19-2021 Hematocrit (Bld) [Volume fraction] 40.3 % 40-54 [facility] Work Phone: Laboratory - Chemistry and C hemistry - challengeon 08-19-2021 CO2 [Moles/Vol] 31.0 mmol/L 21.0-32.0 [facility] Work Phone: Urea nitrogen/Creatinine [Mass ratio] 34.1 mg/mg 10-20 [facility] Work Phone: Laboratory - Hematology and Cell countson 08-19-2021 Erythrocyte distribution width (RBC) [Entitic vol] 43.7 fL 35.1-43.9 [facility] Work Phone: Erythrocyte distribution width (RBC) [Ratio] 12.6 % 11.6-14.6 [facility] Work Phone: MCH (RBC) [Entitic mass] 31.6 pg 27.0-32.0 [facility] Work Phone: MCHC Auto (RBC) [Mass/Vol]on 08-19-2021 MCHC (RBC) [Mass/Vol] 33.7 g/dL 32-36 [facility] Work Phone: No Panel Informationon 08-19 Estimated GFR (MDRD) Amer 94 mL/min >60 [facility] Work Phone: Comment on above: GFR Calc Estimated GFR (MDRD) Non-Af Amer 77 mL/min >60 [facility] Work Phone: Comment on above: Non- GFR Calc Platelets bldon 08-19-2021 Platelets (Bld) [#/Vol] 162 10*3/uL 150-450 [facility] Work Phone: Serum or plasma calcium farshad urement (mass/volume)on 08-19-2021 Calcium [Mass/Vol] 8.7 mg/dL 8.5-10.1 [facility] Work Phone: Serum or plasma creatinine m easurement (mass/volume)on 08-19-2021 Creatinine [Mass/Vol] 1.00 mg/dL 0.70-1.30 [facility] Work Phone: Comment on above: The validity of the calculated GFR & GFRAA in patients over 70 years has not been determined. Clinical correlation is essential. Serum or plasma urea nitroge n measurement (mass/volume)on 08-19-2021 Urea nitrogen [Mass/Vol] 34 mg/dL 7-18 [facility] Work Phone: Thin prep Papanicolaou smear with manual screeningon 08-19-2021 Thin prep Papanicolaou smear with manual screening 3 5-15 [facility] Work Phone: Basophil percentageon 2021 Chloride [Moles/Vol] 108 mmol/L 98-107 [facility] Work Phone: Glucose [Mass/Vol] 85 mg/dL 74-106 [facility] Work Phone: Potassium [Moles/Vol] 4.3 mmol/L 3.5-5.1 [facility] Work Phone: Sodium [Moles/Vol] 141 mmol/L 136-145 [facility] Work Phone: WBC (Bld) [#/Vol] 4.4 10*3/uL 4.4-11.0 [facility] Work Phone: Blood erythrocytes count (nu mber/volume)on 07-22-2021 RBC (Bld) [#/Vol] 4.02 10*6/uL 4.6-6.2 [facility] Work Phone: Blood hemoglobin measurement (mass/volume)on 07-22-2021 Hemoglobin (Bld) [Mass/Vol] 13.1 g/dL 13.0-16.5 [facility] Work Phone: Blood platelet mean volumeon 07-22-2021 Platelet mean volume (Bld) [Entitic vol] 9.2 fL 6.2-12.0 [facility] Work Phone: Determination of erythrocyte mean corpuscular volume (MCV)on 07-22-2021 MCV (RBC) [Entitic vol] 92.8 fL 80-94 [facility] Work Phone: Hematocrit Auto (Bld) [Volum e fraction]on 07-22-2021 Hematocrit (Bld) [Volume fraction] 37.3 % 40-54 [facility] Work Phone: Laboratory - Chemistry and C hemistry - challengeon 07-22-2021 CO2 [Moles/Vol] 32.0 mmol/L 21.0-32.0 [facility] Work Phone: Urea nitrogen/Creatinine [Mass ratio] 26.4 mg/mg 10-20 [facility] Work Phone: Laboratory - Hematology and Cell countson 07-22-2021 Erythrocyte distribution width (RBC) [Entitic vol] 42.7 fL 35.1-43.9 [facility] Work Phone: Erythrocyte distribution width (RBC) [Ratio] 12.5 % 11.6-14.6 [facility] Work Phone: MCH (RBC) [Entitic mass] 32.6 pg 27.0-32.0 [facility] Work Phone: MCHC Auto (RBC) [Mass/Vol]on 07-22-2021 MCHC (RBC) [Mass/Vol] 35.1 g/dL 32-36 [facility] Work Phone: No Panel Informationon 07-22 Estimated GFR (MDRD) Amer 87 mL/min >60 [facility] Work Phone: Comment on above: GFR Calc Estimated GFR (MDRD) Non-Af Amer 72 mL/min >60 [facility] Work Phone: Comment on above: Non- GFR Calc Platelets bldon 07-22-2021 Platelets (Bld) [#/Vol] 163 10*3/uL 150-450 [facility] Work Phone: Serum or plasma calcium farshad urement (mass/volume)on 07-22-2021 Calcium [Mass/Vol] 8.9 mg/dL 8.5-10.1 [facility] Work Phone: Serum or plasma creatinine m easurement (mass/volume)on 07-22-2021 Creatinine [Mass/Vol] 1.06 mg/dL 0.70-1.30 [facility] Work Phone: Comment on above: The validity of the calculated GFR & GFRAA in patients over 70 years has not been determined. Clinical correlation is essential. Serum or plasma urea nitroge n measurement (mass/volume)on 07-22-2021 Urea nitrogen [Mass/Vol] 28 mg/dL 7-18 [facility] Work Phone: Thin prep Papanicolaou smear with manual screeningon 07-22-2021 Thin prep Papanicolaou smear with manual screening 1 5-15 [facility] Work Phone: Basophil percentageon 2021 Chloride [Moles/Vol] 106 mmol/L 98-107 [facility] Work Phone: Glucose [Mass/Vol] 80 mg/dL 74-106 [facility] Work Phone: Potassium [Moles/Vol] 4.2 mmol/L 3.5-5.1 [facility] Work Phone: Sodium [Moles/Vol] 140 mmol/L 136-145 [facility] Work Phone: WBC (Bld) [#/Vol] 4.1 10*3/uL 4.4-11.0 [facility] Work Phone: Blood erythrocytes count (nu mber/volume)on 06-24-2021 RBC (Bld) [#/Vol] 4.10 10*6/uL 4.6-6.2 [facility] Work Phone: Blood hemoglobin measurement (mass/volume)on 06-24-2021 Hemoglobin (Bld) [Mass/Vol] 13.3 g/dL 13.0-16.5 [facility] Work Phone: Blood platelet mean volumeon 06-24-2021 Platelet mean volume (Bld) [Entitic vol] 9.5 fL 6.2-12.0 [facility] Work Phone: Determination of erythrocyte mean corpuscular volume (MCV)on 06-24-2021 MCV (RBC) [Entitic vol] 93.4 fL 80-94 [facility] Work Phone: Hematocrit Auto (Bld) [Volum e fraction]on 06-24-2021 Hematocrit (Bld) [Volume fraction] 38.3 % 40-54 [facility] Work Phone: Laboratory - Chemistry and C hemistry - challengeon 06-24-2021 CO2 [Moles/Vol] 33.0 mmol/L 21.0-32.0 [facility] Work Phone: Urea nitrogen/Creatinine [Mass ratio] 32.4 mg/mg 10-20 [facility] Work Phone: Laboratory - Hematology and Cell countson 06-24-2021 Erythrocyte distribution width (RBC) [Entitic vol] 43.4 fL 35.1-43.9 [facility] Work Phone: Erythrocyte distribution width (RBC) [Ratio] 12.5 % 11.6-14.6 [facility] Work Phone: MCH (RBC) [Entitic mass] 32.4 pg 27.0-32.0 [facility] Work Phone: MCHC Auto (RBC) [Mass/Vol]on 06-24-2021 MCHC (RBC) [Mass/Vol] 34.7 g/dL 32-36 [facility] Work Phone: No Panel Informationon 06-24 Estimated GFR (MDRD) Amer 102 mL/min >60 [facility] Work Phone: Comment on above: GFR Calc Estimated GFR (MDRD) Non-Af Amer 84 mL/min >60 [facility] Work Phone: Comment on above: Non- GFR Calc Platelets bldon 06-24-2021 Platelets (Bld) [#/Vol] 149 10*3/uL 150-450 [facility] Work Phone: Serum or plasma calcium farshad urement (mass/volume)on 06-24-2021 Calcium [Mass/Vol] 8.6 mg/dL 8.5-10.1 [facility] Work Phone: Serum or plasma creatinine m easurement (mass/volume)on 06-24-2021 Creatinine [Mass/Vol] 0.93 mg/dL 0.70-1.30 [facility] Work Phone: Comment on above: The validity of the calculated GFR & GFRAA in patients over 70 years has not been determined. Clinical correlation is essential. Serum or plasma urea nitroge n measurement (mass/volume)on 06-24-2021 Urea nitrogen [Mass/Vol] 30 mg/dL 7-18 [facility] Work Phone: Thin prep Papanicolaou smear with manual screeningon 06-24-2021 Thin prep Papanicolaou smear with manual screening 1 5-15 [facility] Work Phone: Basophil percentageon 2021 Chloride [Moles/Vol] 105 mmol/L 98-107 [facility] Work Phone: Glucose [Mass/Vol] 93 mg/dL 74-106 [facility] Work Phone: Potassium [Moles/Vol] 4.4 mmol/L 3.5-5.1 [facility] Work Phone: Sodium [Moles/Vol] 140 mmol/L 136-145 [facility] Work Phone: WBC (Bld) [#/Vol] 4.8 10*3/uL 4.4-11.0 [facility] Work Phone: Blood erythrocytes count (nu mber/volume)on 05-27-2021 RBC (Bld) [#/Vol] 4.04 10*6/uL 4.6-6.2 [facility]: Blood hemoglobin measurement (mass/volume)on 05-27-2021 Hemoglobin (Bld) [Mass/Vol] 13.0 g/dL 13.0-16.5 [facility] Work Phone: Blood platelet mean volumeon 05-27-2021 Platelet mean volume (Bld) [Entitic vol] 9.5 fL 6.2-12.0 [facility] Work Phone: Determination of erythrocyte mean corpuscular volume (MCV)on 05-27-2021 MCV (RBC) [Entitic vol] 94.1 fL 80-94 [facility] Work Phone: Hematocrit Auto (Bld) [Volum e fraction]on 05-27-2021 Hematocrit (Bld) [Volume fraction] 38.0 % 40-54 [facility] Work Phone: Laboratory - Chemistry and C hemistry - challengeon 05-27-2021 CO2 [Moles/Vol] 31.0 mmol/L 21.0-32.0 [facility] Work Phone: Urea nitrogen/Creatinine [Mass ratio] 25.2 mg/mg 10-20 [facility] Work Phone: Laboratory - Hematology and Cell countson 05-27-2021 Erythrocyte distribution width (RBC) [Entitic vol] 43.4 fL 35.1-43.9 [facility] Work Phone: Erythrocyte distribution width (RBC) [Ratio] 12.5 % 11.6-14.6 [facility] Work Phone: MCH (RBC) [Entitic mass] 32.2 pg 27.0-32.0 [facility] Work Phone: MCHC Auto (RBC) [Mass/Vol]on 05-27-2021 MCHC (RBC) [Mass/Vol] 34.2 g/dL 32-36 [facility] Work Phone: No Panel Informationon 05-27 Estimated GFR (MDRD) Amer 90 mL/min >60 [facility] Work Phone: Comment on above: GFR Calc Estimated GFR (MDRD) Non-Af Amer 75 mL/min >60 [facility] Work Phone: Comment on above: Non- GFR Calc Platelets bldon 05-27-2021 Platelets (Bld) [#/Vol] 157 10*3/uL 150-450 [facility] Work Phone: Serum or plasma calcium farshad urement (mass/volume)on 05-27-2021 Calcium [Mass/Vol] 8.9 mg/dL 8.5-10.1 [facility] Work Phone: Serum or plasma creatinine m easurement (mass/volume)on 05-27-2021 Creatinine [Mass/Vol] 1.03 mg/dL 0.70-1.30 [facility] Work Phone: Comment on above: The validity of the calculated GFR & GFRAA in patients over 70 years has not been determined. Clinical correlation is essential. Serum or plasma urea nitroge n measurement (mass/volume)on 05-27-2021 Urea nitrogen [Mass/Vol] 26 mg/dL 7-18 [facility] Work Phone: Thin prep Papanicolaou smear with manual screeningon 05-27-2021 Thin prep Papanicolaou smear with manual screening 4 5-15 [facility] Work Phone: [facility] Surgical Pathology Depar tmenton 12-21-2020 [facility] Surgical Pathology Department Name IGOR CRUZ Pathologist: JAYSHREE BRITTON DMD Date of Procedure: 12/21/2020 Date Received: 12/24/2020 Date Reported 12/27/2020 Submitting Physician: MARJAN SOSA DMD Location: [facility] Other External # FINAL DIAGNOSIS A: FRONT AND RIGHT LATERAL BORDER OF TONGUE, EXCISION: -- TRAUMATIC FIBROMAS ICD-10/CPT: D10.1/10058 Electronically Signed Out By JAYSHREE BRITTON DMD/IJS [...] in toto in one cassette. [facility] rcc/12/24/2020 [facility] Department of Pathology [address] [place] [address] Normal [facility] Comment on above: Performed By: #### U [facility] #### [facility] Surgical Pathology Department [address] [place] [address] CURon 08-12-2019 CUR . MICRO - Microbiology [...] Locations *1: This test was performed at: [facility], [address] [place] [address], [facility] , [facility] ([place]) Comment on above: Performed By: #### C BC, ADIFF, ANEU #### [address] [address] #### TROP, BMP, TSH, GFR #### [address] [address] .GFRon 08-10-2019 GFR 43 ml/min/1.73sqm [facility] ([place]) Comment on above: Result Comment: GFR Population [...] meters Performed By: #### B MP, GFR ####[address] [address] GFR Non- 35 ml/min/1.73sqm [facility] ([place] Comment on above: Result Comment: GFR Population [...] meters Performed By: #### B MP, GFR ####[address] [address] BMPon 08-10-2019 Calcium [Mass/Vol] 9.1 mg/dL Normal 8.4-10.2 [facility] ([place]) Comment on above: Performed By: #### B MP, GFR ####[place] [address] Chloride [Moles/Vol] 105 mmol/L Normal 98-107 [facility] ([place]) Comment on above: Performed By: #### B MP, GFR ####[place] [address] CO2 [Moles/Vol] 33 mmol/L High 23-31 [facility] ([place]) Comment on above: Performed By: #### B MP, GFR ####[place] [address] Creatinine [Mass/Vol] 1.88 mg/dL High 0.70-1.30 [facility] ([place]) Comment on above: Performed By: #### B MP, GFR ####[place] [address] Electrolyte Balance 5.0 mEq/L Normal [facility] ([place]) Comment on above: Performed By: #### B MP, GFR ####[address] [address] Glucose [Mass/Vol] 83 mg/dL Normal 83-110 [facility] ([place]) Comment on above: Performed By: #### B MP, GFR ####[address] [address] Potassium [Moles/Vol] 4.1 mmol/L Normal 3.5-5.1 [facility] ([place] Comment on above: Performed By: #### B MP, GFR ####[address] [address] Sodium [Moles/Vol] 143 mmol/L Normal 136-145 [facility] ([place] Comment on above: Performed By: #### B MP, GFR ####[address] [address] Urea nitrogen [Mass/Vol] 38 mg/dL High 7-18 [facility] ([place]) Comment on above: Performed By: #### B MP, GFR ####[address] [address] Urea nitrogen/Creatinine [Mass ratio] 20 ratio Normal 12-07 [facility] ([place] Comment on above: Performed By: #### B MP, GFR ####[address] [address] UAon 08-10-2019 Color (U) Yellow Normal [facility] ([place] Comment on above: Performed By: #### C BC, ADIFF, ANEU #### [place] [address] #### TROP, BMP, TSH, GFR #### [address] [address] Glucose (U) [Mass/Vol] Negative Normal Negative [facility] ([place]) Comment on above: Performed By: #### C BC, ADIFF, ANEU #### [address] [address] #### TROP, BMP, TSH, GFR #### [address] [address] Ketones Ql (U) Negative Normal Negative [facility] ([place]) Comment on above: Performed By: #### C BC, ADIFF, ANEU #### [address] [address] #### TROP, BMP, TSH, GFR #### [address] [address] UA Appear Clear Normal Clear [facility] ([place] Comment on above: Performed By: #### C BC, ADIFF, ANEU #### [address] [address] #### TROP, BMP, TSH, GFR #### [place] [address] UA Blood Trace Abnormal Negative [facility] ([place] Comment on above: Performed By: #### C BC, ADIFF, ANEU #### [place] [address] #### TROP, BMP, TSH, GFR #### [place] [address] UA Leuk Est Negative Normal Negative [facility] ([place] Comment on above: Performed By: #### C BC, ADIFF, ANEU #### [place] [address] #### TROP, BMP, TSH, GFR #### [place] [address] UA Nitrite Negative Normal Negative [facility] ([place] Comment on above: Performed By: #### C BC, ADIFF, ANEU #### [place] [address] #### TROP, BMP, TSH, GFR #### [place] [address] UA pH 7.0 Normal 5.0 - 8.0 [facility] ([place] Comment on above: Performed By: #### C BC, ADIFF, ANEU #### [place] [address] #### TROP, BMP, TSH, GFR #### [place] [address] UA Protein Negative Normal Negative [facility] ([place] Comment on above: Performed By: #### C BC, ADIFF, ANEU #### [place] [address] #### TROP, BMP, TSH, GFR #### [place] [address] UA Spec Grav 1.020 Normal 1.015-1.025 [facility] ([place]) Comment on above: Performed By: #### C BC, ADIFF, ANEU #### [place] [address] #### TROP, BMP, TSH, GFR #### [place] [address] UA Specimen Type Clean Catch Normal [facility] ([place] Comment on above: Performed By: #### C BC, ADIFF, ANEU #### [place] [address] #### TROP, BMP, TSH, GFR #### [place] [address] UA Urobilinogen 0.2 E.U./dL Normal 0.2-1.0 [facility] ([place] Comment on above: Performed By: #### C BC, ADIFF, ANEU #### [place] [address] #### TROP, BMP, TSH, GFR #### [place] [address] Urobilinogen Qn (U) Negative Normal Negative [facility] ([place] Comment on above: Performed By: #### C BC, ADIFF, ANEU #### [place] [address] #### TROP, BMP, TSH, GFR #### [place] [address] .Auto Diffon 08-09-2019 Ammonia (P) [Mass/Vol] 0.40 10 3/mcL Normal 0.15-1.00 [facility] ([place] Comment on above: Performed By: #### C BC, ADIFF, ANEU #### [place] [address] #### TROP, BMP, TSH, GFR #### [place] [address] Basophils (Bld) [#/Vol] 0.00 10 3/mcL Normal 0.00-0.19 [facility] ([place] Comment on above: Performed By: #### C BC, ADIFF, ANEU #### [place] [address] #### TROP, BMP, TSH, GFR #### [address] [address] Basophils/100 WBC (Bld) 1.0 % Normal 0.0-2.5 [facility] ([place]) Comment on above: Performed By: #### C BC, ADIFF, ANEU #### [address] [address] #### TROP, BMP, TSH, GFR #### [address] [address] Eosinophils (Bld) [#/Vol] 0.10 10 3/mcL Normal 0.00-0.40 [facility] ([place]) Comment on above: Performed By: #### C BC, ADIFF, ANEU #### [address] [address] #### TROP, BMP, TSH, GFR #### [address] [address] Eosinophils/100 WBC (Bld) 1.3 % Normal 0.0-7.0 [facility] ([place]) Comment on above: Performed By: #### C BC, ADIFF, ANEU #### [address] [address] #### TROP, BMP, TSH, GFR #### [address] [address] Lymphocytes (Bld) [#/Vol] 0.80 10 3/mcL Normal 0.77-3.85 [facility] ([place]) Comment on above: Performed By: #### C BC, ADIFF, ANEU #### [place] [address] #### TROP, BMP, TSH, GFR #### [address] [address] Lymphocytes/100 WBC (Bld) 15.3 % Normal 10.0-50.0 [facility] ([place]) Comment on above: Performed By: #### C BC, ADIFF, ANEU #### [place] [address] #### TROP, BMP, TSH, GFR #### [address] [address] Monocytes/100 WBC (Bld) 8.0 % Normal 1.7-13.0 [facility] ([place] Comment on above: Performed By: #### C BC, ADIFF, ANEU #### [address] [address] #### TROP, BMP, TSH, GFR #### [address] [address] Neutrophils/100 WBC (Bld) 74.4 % Normal 37.0-80.0 [facility] ([place]) Comment on above: Performed By: #### C BC, ADIFF, ANEU #### [address] [address] #### TROP, BMP, TSH, GFR #### [address] [address] .GFRon 08-09-2019 GFR 39 ml/min/1.73sqm Normal [facility] ([place]) Comment on above: Result Comment: [...] #### B MP, MG, GFR, VIDH, B12 ####[address] [address] GFR Non- 32 ml/min/1.73sqm Normal [facility] ([place] Comment on above: Result Comment: GFR Population [...] #### B MP, MG, GFR, VIDH, B12 ####[facility] [place] [address] GFR Non- 31 ml/min/1.73sqm Normal [facility] ([place] Comment on above: Result Comment: GFR Population [...] By: #### C BC, ADIFF, ANEU #### [address] [address] #### TROP, BMP, TSH, GFR #### [place] [id number] [address] [place] [address] GFR 37 ml/min/1.73sqm Normal [facility] ([place] Comment on above: Result Comment: GFR Population [...] By: #### C BC, ADIFF, ANEU #### [place] [address] #### TROP, BMP, TSH, GFR #### [place] [address] .NEUABSon 08-09-2019 Neutrophils (Bld) [#/Vol] 3.80 10 3/mcL Normal 2.85-6.16 [facility] ([place] Comment on above: Performed By: #### C BC, CLARA, ANEU #### [place] [address] #### TROP, BMP, TSH, GFR #### [place] [address] .Urinalysis Microscopic (AO) on 08-09-2019 RBC (U) [#/Vol] 0-5 Abnormal None Seen [facility] ([place]) Comment on above: Performed By: #### U A, UAMICAO ####[place] [address] UA Squam Epithelial None Seen Normal None Seen [facility] ([place]) Comment on above: Performed By: #### U A, UAMICAO ####[place] [address] UA WBC 0-5 Abnormal None Seen [facility] ([place] Comment on above: Performed By: #### U A, UAMICAO ####[place] [address] B12on 08-09-2019 Cobalamin (Vitamin B12) [Mass/Vol] 336 pg/mL Normal 211-911 [facility] ([place] Comment on above: Performed By: #### B MP, MG, GFR, VIDH, B12 ####[place] [address] BMPon 08-09-2019 Calcium [Mass/Vol] 8.7 mg/dL Normal 8.4-10.2 [facility] ([place]) Comment on above: Performed By: #### B MP, MG, GFR, VIDH, B12 ####[address] [address] Chloride [Moles/Vol] 106 mmol/L Normal 98-107 [facility] ([place]) Comment on above: Performed By: #### B MP, MG, GFR, VIDH, B12 ####[address] [address] CO2 [Moles/Vol] 32 mmol/L High 23-31 [facility] ([place]) Comment on above: Performed By: #### B MP, MG, GFR, VIDH, B12 ####[address] [address] Creatinine [Mass/Vol] 2.03 mg/dL High 0.70-1.30 [facility] ([place]) Comment on above: Performed By: #### B MP, MG, GFR, VIDH, B12 ####[address] [address] Electrolyte Balance 3.0 mEq/L Normal [facility] ([place]) Comment on above: Performed By: #### B MP, MG, GFR, VIDH, B12 ####[address] [address] Glucose [Mass/Vol] 91 mg/dL Normal 83-110 [facility] ([place] Comment on above: Performed By: #### B MP, MG, GFR, VIDH, B12 ####[address] [address] Potassium [Moles/Vol] 4.5 mmol/L Normal 3.5-5.1 [facility] ([place]) Comment on above: Performed By: #### B MP, MG, GFR, VIDH, B12 ####[address] [address] Sodium [Moles/Vol] 141 mmol/L Normal 136-145 [facility] ([place] Comment on above: Performed By: #### B MP, MG, GFR, VIDH, B12 ####[place] [address] [address] [place] [address] Urea nitrogen [Mass/Vol] 46 mg/dL High 7-18 [facility] ([place] Comment on above: Performed By: #### B MP, MG, GFR, VIDH, B12 ####[place] [address] [address] [place] [address] Urea nitrogen/Creatinine [Mass ratio] 23 ratio Normal 7-27 [facility] ([place] Comment on above: Performed By: #### B MP, MG, GFR, VIDH, B12 ####[address] [address] Calcium [Mass/Vol] 9.6 mg/dL Normal 8.4-10.2 [facility] ([place]) Comment on above: Performed By: #### C BC, ADIFF, ANEU #### [address] [address] #### TROP, BMP, TSH, GFR #### [address] [address] Chloride [Moles/Vol] 104 mmol/L Normal 98-107 [facility] ([place] Comment on above: Performed By: #### C BC, ADIFF, ANEU #### [address] [address] #### TROP, BMP, TSH, GFR #### [address] [address] CO2 [Moles/Vol] 29 mmol/L Normal 23-31 [facility] ([place]) Comment on above: Performed By: #### C BC, ADIFF, ANEU #### [address] [address] #### TROP, BMP, TSH, GFR #### [address] [address] Creatinine [Mass/Vol] 2.12 mg/dL High 0.70-1.30 [facility] ([place]) Comment on above: Performed By: #### C BC, ADIFF, ANEU #### [address] [address] #### TROP, BMP, TSH, GFR #### [address] [address] Electrolyte Balance 8.0 mEq/L Normal [facility] ([place]) Comment on above: Performed By: #### C BC, ADIFF, ANEU #### [address] [address] #### TROP, BMP, TSH, GFR #### [address] [address] Glucose [Mass/Vol] 92 mg/dL Normal 83-110 [facility] ([place] Comment on above: Performed By: #### C BC, ADIFF, ANEU #### [address] [address] #### TROP, BMP, TSH, GFR #### [address] [address] Potassium [Moles/Vol] 4.2 mmol/L Normal 3.5-5.1 [facility] ([place]) Comment on above: Performed By: #### C BC, ADIFF, ANEU #### [address] [address] #### TROP, BMP, TSH, GFR #### [address] [address] Sodium [Moles/Vol] 141 mmol/L Normal 136-145 [facility] ([place]) Comment on above: Performed By: #### C BC, ADIFF, ANEU #### [address] [address] #### TROP, BMP, TSH, GFR #### [address] [address] Urea nitrogen [Mass/Vol] 47 mg/dL High 7-18 [facility] ([place] Comment on above: Performed By: #### C BC, ADIFF, ANEU #### [address] [address] #### TROP, BMP, TSH, GFR #### [address] [address] Urea nitrogen/Creatinine [Mass ratio] 22 ratio Normal 7-27 [facility] ([place] Comment on above: Performed By: #### C BC, ADIFF, ANEU #### [address] [address] #### TROP, BMP, TSH, GFR #### [address] [address] CBCon 08-09-2019 Erythrocyte distribution width (RBC) [Ratio] 13.0 % Normal 11.5-14.5 [facility] ([place]) Comment on above: Performed By: #### C BC, ADIFF, ANEU #### [place] [address] #### TROP, BMP, TSH, GFR #### [place] [address] Hematocrit (Bld) [Volume fraction] 41.5 % Low 42.0-52.0 [facility] ([place] Comment on above: Performed By: #### C BC, ADIFF, ANEU #### [address] [address] #### TROP, BMP, TSH, GFR #### [place] [address] Hemoglobin (Bld) [Mass/Vol] 14.4 G/dL Normal 14.0-18.0 [facility] ([place] Comment on above: Performed By: #### C BC, ADIFF, ANEU #### [place] [address] #### TROP, BMP, TSH, GFR #### [address] [address] MCH (RBC) [Entitic mass] 31.6 pg High 27.0-31.2 [facility] ([place] Comment on above: Performed By: #### C BC, ADIFF, ANEU #### [address] [address] #### TROP, BMP, TSH, GFR #### [facility] [address] [place], [place] [address] MCHC (RBC) [Mass/Vol] 34.7 G/dL Normal 31.8-35.4 [facility] ([place]) Comment on above: Performed By: #### C BC, ADIFF, ANEU #### [place] [address] #### TROP, BMP, TSH, GFR #### [address] [address] MCV (RBC) [Entitic vol] 91.0 fL Normal 80.0-94.0 [facility] ([place]) Comment on above: Performed By: #### C BC, ADIFF, ANEU #### [place] [address] #### TROP, BMP, TSH, GFR #### [place] [address] Platelet mean volume (Bld) [Entitic vol] 7.6 fL Normal 7.4-10.4 [facility] ([place] Comment on above: Performed By: #### C BC, ADIFF, ANEU #### [place] [address] #### TROP, BMP, TSH, GFR #### [address] [address] Platelets (Bld) [#/Vol] 168 10 3/mcL Normal 130-400 [facility] ([place] Comment on above: Performed By: #### C BC, ADIFF, ANEU #### [place] [address] #### TROP, BMP, TSH, GFR #### [place] [id number] RBC (Bld) [#/Vol] 4.56 10 6/mcL Normal 4.04-6.13 [facility] ([place] Comment on above: Performed By: #### C BC, ADIFF, ANEU #### [place] [address] #### TROP, BMP, TSH, GFR #### [address] [address] WBC (Bld) [#/Vol] 5.10 10 3/mcL Normal 4.60-10.80 [facility] ([place]) Comment on above: Performed By: #### C BC, ADIFF, ANEU #### [facility] [address] [place], [place] [address] #### TROP, BMP, TSH, GFR #### [facility] [address] [place] [id number] HEAD OR BRAIN W/O CONTRAS Ton [...] Date: 08/09/2019 12:01:05 AM Ordering Provider:Robert Adame [facility] ([place]) MGon 08-09-2019 Magnesium [Mass/Vol] 1.8 mg/dL Normal 1.8-2.4 [facility] ([place]) Comment on above: Performed By: #### B MP, MG, GFR, VIDH, B12 ####[place] [address] TROP 08-09-2019 Troponin I.cardiac [Mass/Vol] ng/mL Normal 0.000-0.040 [facility] ([place]) Comment on above: Result Comment: Trop onin I reference range: 0.00-0.040 ng/mL Negative and non-diagnostic. >0.040 ng/mL Consistent with cardiac damage, increased clinical risk and possibility of myocardial infarction. Serial measurements, a rise & fall in test results, clinical history, appropriate symptoms and/or ECG changes may help assess possibility of [place]. *Other non-acute coronary syndrome conditions such as CHF, myocarditis, pulmonary emboli, sepsis and cardiac surgery could result in myocardial damage and increased troponin levels. Performed By: #### C CLARA MON ANEU #### [place] [address] #### TROP, BMP, TSH, GFR #### [place] [address] TSH 08-09-2019 TSH Qn 1.72 mcIU/mL Normal 0.36-3.74 [facility] ([place]) Comment on above: Performed By: #### C CLARA MON, ANEU #### [place] [address] #### TROP, BMP, TSH, GFR #### [place] [address] UAon 08-09-2019 Color (U) Yellow Normal [facility] ([place]) Comment on above: Performed By: #### U A, UAMICAO ####[place] [address] Glucose (U) [Mass/Vol] Negative Normal Negative [facility] ([place]) Comment on above: Performed By: #### U A, UAMICAO ####[place] [address] Ketones Ql (U) Trace Abnormal Negative [facility] ([place]) Comment on above: Performed By: #### U A, UAMICAO ####[place] [address] UA Appear Clear Normal Clear [facility] ([place]) Comment on above: Performed By: #### U A, UAMICAO ####[place] [address] UA Blood Small Abnormal Negative [facility] ([place] Comment on above: Performed By: #### U A, UAMICAO ####[place] [address] UA Leuk Est Trace Abnormal Negative [facility] ([place]) Comment on above: Performed By: #### U A, UAMICAO ####[place] [address] UA Nitrite Negative Normal Negative [facility] ([place]) Comment on above: Performed By: #### U A, UAMICAO ####[place] [address] UA pH 5.0 Normal 5.0 - 8.0 [facility] ([place]) Comment on above: Performed By: #### U A, UAMICAO ####[place] [address] UA Protein Negative Normal Negative [facility] ([place] Comment on above: Performed By: #### U A, UAMICAO ####[place] [address] UA Spec Grav 1.025 Normal 1.015-1.025 [facility] ([place]) Comment on above: Performed By: #### U A, UAMICAO ####[place] [address] UA Specimen Type Clean Catch Normal [facility] ([place]) Comment on above: Performed By: #### U A, UAMICAO ####[place] [address] UA Urobilinogen 0.2 E.U./dL Normal 0.2-1.0 [facility] ([place]) Comment on above: Performed By: #### U A, UAMICAO ####[address] [address] Urobilinogen Qn (U) Negative Normal Negative [facility] ([place]) Comment on above: Performed By: #### U A, UAMICAO ####[address] [address] VIDHon 08-09-2019 Vit. D 25-Hydroxy 118 ng/mL Normal [facility] ([place]) Comment on above: Result Comment: Inte rpretive Values Based on Total 25(OH)D: Severe Deficiency <20 ng/mL Mild to Moderate Deficiency 20-30 ng/mL Optimum Levels 30-100 ng/mL Toxicity Possible >100 ng/mL Performed By: #### B MP, MG, GFR, VIDH, B12 ####[address] [address] XR CHEST 1 VIEWon 08-09-2019 XR CHEST [...] Date: 08/08/2019 11:57:53 PM Ordering Provider:Robert Adame [facility] ([place]) US GROIN LEFTon 08-29-2018 US GROIN LEFT [...] 3:00:36 PM Sign Date: 08/29/2018 3:01:42 PM Normal [facility] ([place]) XR RIBS 2 VIEWS RIGHT/PA PASQUALE ST(AO)on [...] 4:30:13 PM Sign Date: 08/29/2018 4:30:51 PM Normal [facility] ([place]) Vital Signs Date Time Vital Sign Value Performing Clinician Faci lity 11-26-2024 16:12-0400 Body height 180.[address] Guilherme Butt MD Work Phone: [facility] 10-08-2024 14:25-0400 Body height 180.[address] Guilherme Butt MD Work Phone: [facility] 10-08-2024 14:25-0400 Body mass index (BMI) [Ratio] 25.7 kg/m2 Dr. Guilherme Butt MD Work Phone: [facility] 10-08-2024 14:25-0400 Body weight 83.[address] Guilherme Butt MD Work Phone: [facility] 10-08-2024 14:25-0400 Diastolic blood pressure 66 mm[Hg] Dr. Guilherme Butt MD Work Phone: [facility] 10-08-2024 14:25-0400 Heart rate 80 /min Dr. Guilherme Butt MD Work Phone: [facility] 10-08-2024 14:25-0400 Respiratory rate 18 /min Dr. Guilherme Butt MD Work Phone: [facility] 10-08-2024 14:25-0400 Systolic blood pressure 96 mm[Hg] Dr. Guilherme Butt MD Work Phone: [facility] 03-12-2023 13:59-0400 Body height 180.[address] Guilherme Butt Work Phone: [facility] 02-12-2023 16:01-0400 Diastolic blood pressure 76 mm[Hg] Dr. Guilherme Butt Work Phone: [facility] 02-12-2023 16:01-0400 Systolic blood pressure 131 mm[Hg] Dr. Guilherme Butt Work Phone: [facility] 02-12-2023 14:24-0400 Body temperature 97.8 [degF] Dr. Guilherme Butt Work Phone: [facility] 02-12-2023 14:24-0400 Heart rate 68 /min Dr. Guilherme Butt Work Phone: [facility] 02-12-2023 14:24-0400 Respiratory rate 18 /min Dr. Guilherme Butt Work Phone: [facility] 02-12-2023 14:24-0400 SaO2% (BldA) [Mass fraction] 93 % Dr. Guilherme Butt Work Phone: [facility] 02-12-2023 14:00-0400 Inhaled oxygen flow rate 3 L/min Dr. Guilherme Butt Work Phone: [facility] 02-12-2023 09:26-0400 Body height 180.[address] Guilherme Butt Work Phone: [facility] 02-12-2023 09:26-0400 Body mass index (BMI) [Ratio] 25.4 kg/m2 Dr. Guilherme Butt Work Phone: [facility] 02-12-2023 09:26-0400 Body weight 82.[address] Guilherme Butt Work Phone: [facility] 01-11-2023 14:37-0400 Body mass index (BMI) [Ratio] 24.9 kg/m2 Dr. Guilherme Butt Work Phone: [facility] 01-11-2023 14:37-0400 Body weight 83.[address] Guilherme Butt Work Phone: [facility] 01-11-2023 14:37-0400 Diastolic blood pressure 85 mm[Hg] Dr. Guilherme Butt Work Phone: [facility] 01-11-2023 14:37-0400 Respiratory rate 16 /min Dr. Guilherme Butt Work Phone: [facility] 01-11-2023 14:37-0400 Systolic blood pressure 130 mm[Hg] Dr. Guilherme Butt Work Phone: [facility] 09-04-2022 10:58-0400 Body height 182.[address] Guilherme Butt Work Phone: [facility] 09-04-2022 10:58-0400 Body mass index (BMI) [Ratio] 24.7 kg/m2 Dr. Guilherme Butt Work Phone: [facility] 09-04-2022 10:58-0400 Body weight 82.[address] Guilherme Butt Work Phone: [facility] 09-04-2022 10:58-0400 Diastolic blood pressure 48 mm[Hg] Dr. Guilherme Butt Work Phone: [facility] 09-04-2022 10:58-0400 Heart rate 84 /min Dr. Guilherme Butt Work Phone: [facility] 09-04-2022 10:58-0400 Respiratory rate 16 /min Dr. Guilherme Butt Work Phone: [facility] 09-04-2022 10:58-0400 Systolic blood pressure 80 mm[Hg] Dr. Guilherme Butt Work Phone: [facility] 08-02-2022 07:41-0400 Diastolic blood pressure 79 mm[Hg] Dr. Guilherme Butt Work Phone: [facility] 08-02-2022 07:41-0400 Heart rate 71 /min Dr. Guilherme Butt Work Phone: [facility] 08-02-2022 07:41-0400 Respiratory rate 16 /min Dr. Guilherme Butt Work Phone: [facility] 08-02-2022 07:41-0400 SaO2% (BldA) [Mass fraction] 97 % Dr. Guilherme Butt Work Phone: [facility] 08-02-2022 07:41-0400 Systolic blood pressure 114 mm[Hg] Dr. Guilherme Butt Work Phone: [facility] 08-02-2022 07:08-0400 Body height 182.[address] Guilherme Butt Work Phone: [facility] 08-02-2022 07:08-0400 Body mass index (BMI) [Ratio] 25.2 kg/m2 Dr. Guilherme Butt Work Phone: [facility] 08-02-2022 07:08-0400 Body temperature 98 [degF] Dr. Guilherme Butt Work Phone: [facility] 08-02-2022 07:08-0400 Body weight 84.[address] Guilherme Butt Work Phone: [facility] 05-22-2022 13:15-0500 Body height 182.[address] Guilherme Butt Work Phone: [facility] 04-03-2022 15:00-0500 Diastolic blood pressure 73 mm[Hg] Dr. Guilherme Butt Work Phone: [facility] 04-03-2022 15:00-0500 Heart rate 58 /min Dr. Guilherme Butt Work Phone: [facility] 04-03-2022 15:00-0500 Respiratory rate 15 /min Dr. Guilherme Butt Work Phone: [facility] 04-03-2022 15:00-0500 SaO2% (BldA) [Mass fraction] 95 % Dr. Guilherme Butt Work Phone: [facility] 04-03-2022 15:00-0500 Systolic blood pressure 138 mm[Hg] Dr. Guilherme Butt Work Phone: [facility] 04-03-2022 13:00-0500 Body temperature 97.8 [degF] Dr. Guilherme Butt Work Phone: [facility] 04-03-2022 10:08-0500 Body mass index (BMI) [Ratio] 24.9 kg/m2 Dr. Guilherme Butt Work Phone: [facility] 04-03-2022 10:08-0500 Body weight 83.[address] Guilherme Butt Work Phone: [facility] 10-03-2021 00:46-0400 Diastolic blood pressure 80 mm[Hg] TIFFANY Gray [facility] Work Phone: 10-03-2021 00:46-0400 Heart rate 91 /min TIFFANY Gray [facility] Work Phone: 10-03-2021 00:46-0400 Respiratory rate 16 /min [employer]Devan Gray [facility] Work Phone: 10-03-2021 00:46-0400 SaO2% (BldA) [Mass fraction] 95 % [employer]Devan Gray [facility] Work Phone: 10-03-2021 00:46-0400 Systolic blood pressure 160 mm[Hg] [employer]Devan Gray [facility] Work Phone: 10-02-2021 20:20-0400 Body height 177.8 cm [employer]Devan Gray [facility] Work Phone: 10-02-2021 20:20-0400 Body mass index (BMI) [Ratio] 27.8 kg/m2 [employer]Devan Gray [facility] Work Phone: 10-02-2021 20:20-0400 Body temperature 98.7 [degF] [employer]Devan Gray [facility] Work Phone: 10-02-2021 20:20-0400 Body weight 88 kg [employer]Devan Gray [facility] Work Phone: Encounters Encounter Date Encounter Type Care Provider Facility Start: 01-07-2025 End: 01-07-[address] Guilherme Butt MD Work Phone: -[facility] Start: 01-07-2025 End: 01-07-2025 Patient encounter procedure Cecy Gray [facility] Work Phone: Start: 12-23-2024 ambulatory Guilherme coburn:[facility] Start: 12-23-2024 Registered Referred Guilherme Butt MD [facility] Start: 12-19-2024 ambulatory Guilherme coburn:[facility] Start: 12-19-2024 Registered Referred Guilherme Butt MD -[facility] Start: 12-12-2024 End: 12-12-[address] Guilherme Butt MD Work Phone: [facility] Start: 12-12-2024 End: 12-12-2024 Patient encounter procedure Cecy Gray NP-Devan [facility] Work Phone: Start: 12-12-2024 Non-patient / Non-visit Dr. Jessica LEVIN -[facility] Start: 12-12-2024 End: 12-12-[address] Guilherme Butt MD Work Phone: -[facility] Start: 12-12-2024 End: 12-12-[address] Dwain Yen MD -[facility] Work Phone: Start: 12-12-2024 End: 12-12-2024 ambulatory Guilherme Butt Facility:[facility] Start: 11-21-2024 ambulatory Guilherme SHI Fa cility:[facility] Start: 11-21-2024 Registered Referred Guilherme Butt MD [facility] Start: 11-18-2024 End: 11-18-[address] Guilherme Butt MD Work Phone: [facility] Start: 11-18-2024 End: 11-18-[address] Guilherme Butt MD -[facility] Work Phone: Start: 10-24-2024 ambulatory Cecy Gray OLS Fac ility:[facility] Start: 10-24-2024 Registered Referred Cecy ALLEN [facility] Start: 10-16-2024 End: 10-16-[address] Guilherme Butt MD Work Phone: [facility] Start: 10-16-2024 End: 10-16-2024 Patient encounter procedure Camilo Wayt [facility] Work Phone: Start: 10-08-2024 End: 10-08-[address] Dwain Yen MD -[facility] Work Phone: Start: 10-08-2024 End: 10-08-[address] Guilherme Butt MD Work Phone: [facility] Work Phone: Start: 09-23-2024 End: 09-23-[address] Guilherme Butt MD Work Phone: [facility] Start: 09-23-2024 End: 09-23-[address] Guilherme Butt MD -[facility] Work Phone: Start: 09-19-2024 End: 09-19-[address] Guilherme Butt MD Work Phone: [facility] Work Phone: Start: 09-19-2024 End: 09-19-2024 Departed Referred Guilherme Butt MD -[facility] Start: 09-19-2024 Registered Referred Guilherme Butt MD -[facility] Start: 09-19-2024 End: 09-19-2024 ambulatory Guilherme SHI Facility:[facility] Start: 08-22-2024 End: 08-22-[address] Guilherme Butt MD Work Phone: [facility] Work Phone: Start: 08-22-2024 End: 08-22-2024 Departed Referred Cecy ALLEN -[facility] Start: 08-22-2024 End: 08-22-2024 ambulatory Cecy Gray OLS Facility:[facility] Start: 08-12-2024 End: 08-12-[address] Guilherme Butt MD Work Phone: [facility] Work Phone: Start: 08-12-2024 End: 08-12-2024 Patient encounter procedure Cecy ALLEN -[facility] Work Phone: Start: 07-29-2024 End: 07-29-2024 ambulatory Efewongbe Oleghe Facility:[facility] Start: 07-29-2024 End: 07-29-[address] Guilherme Butt MD -[facility] Work Phone: Start: 07-25-2024 End: 07-25-[address] Guilherme Butt MD Work Phone: [facility] Work Phone: Start: 07-25-2024 End: 07-25-2024 [facility] Start: 07-25-2024 End: 07-25-2024 ambulatory Efewalfredobe Travise OLS Facility:[facility] Start: 07-03-2024 End: 07-03-2024 ambulatory Efewongbe Oleghe Facility:[facility] Start: 07-03-2024 End: 07-03-2024 Patient encounter procedure Camilo AGRAWAL -[facility] Work Phone: Start: 06-27-2024 ambulatory Efewalfredobe Travise OLS Fa cility:[facility] Start: 06-27-2024 [facility] Start: 05-27-2024 End: 05-27-2024 ambulatory Efewongbe Olemariane Facility:[facility] Start: 05-27-2024 End: 05-27-[address] Guilherme Butt MD -[facility] Work Phone: Start: 05-23-2024 End: 05-23-2024 [facility] Start: 05-23-2024 End: 05-23-2024 ambulatory Effelipa SHI Facility:[facility] Start: 04-25-2024 End: 04-25-2024 Departed Referred Guilherme Butt MD [facility] Start: 04-25-2024 End: 04-25-2024 ambulatory Efcristelabe Oleghe Facility:[facility] Start: 04-15-2024 End: 04-15-2024 ambulatory Efkieranongbe Oleghe Facility:[facility] Start: 03-20-2024 End: 03-21-2024 ambulatory Efewongbe Travise OLS Facility:[facility] Start: 02-22-2024 ambulatory Efewongbe Olemariane OLS Fa cility:[facility] Start: 02-15-2024 End: 02-15-2024 ambulatory Efewchesapeakebe Olemariane Facility:[facility] Start: 01-29-2024 End: 01-29-2024 ambulatory Efkieranongdmitri Roblese Facility:[facility] Start: 01-25-2024 ambulatory Efewongdmitri Roblese OLS Fa cility:[facility] Start: 09-06-2023 End: 09-06-[address] Guilherme Butt Work Phone: [facility] Work Phone: Start: 08-24-2023 End: 08-24-[address] Guilherme Butt Work Phone: [facility] Work Phone: Start: 08-24-2023 End: 08-24-[address] Guilherme Butt Work Phone: [facility] Start: 07-24-2023 End: 07-24-[address] Guilherme Butt Work Phone: [facility] Work Phone: Start: 07-20-2023 End: 07-20-[address] Guilherme Butt Work Phone: [facility] Work Phone: Start: 07-20-2023 End: 07-20-[address] Guilherme Butt Work Phone: [facility] Start: 07-05-2023 End: 07-05-[address] Guilherme Butt Work Phone: [facility] Work Phone: Start: 06-22-2023 End: 06-22-[address] Guilherme Butt Work Phone: [facility] Start: 05-29-2023 End: 05-29-[address] Guilherme Butt Work Phone: [facility] Work Phone: Start: 05-25-2023 End: 05-25-[address] Guilherme Butt Work Phone: [facility] Work Phone: Start: 05-25-2023 End: 05-25-[address] Guilherme Butt Work Phone: [facility] Start: 04-20-2023 End: 04-20-[address] Guilherme Butt Work Phone: [facility] Start: 04-16-2023 End: 04-16-[address] Guilherme Butt Work Phone: [facility] Work Phone: Start: 03-27-2023 End: 03-27-[address] Guilherme Butt Work Phone: [facility] Work Phone: Start: 03-23-2023 End: 03-23-[address] Guilherme Butt Work Phone: [facility] Work Phone: Start: 03-23-2023 End: 03-23-[address] Guilherme Butt Work Phone: [facility] Start: 03-07-2023 End: 03-07-[address] Guilherme Butt Work Phone: [facility] Work Phone: Start: 02-23-2023 End: 02-23-[address] Guilherme Butt Work Phone: [facility] Work Phone: Start: 02-23-2023 End: 02-23-[address] Guilherme Butt Work Phone: [facility] Start: 02-13-2023 End: 02-13-[address] Guilherme Butt Work Phone: [facility] Work Phone: Start: 02-12-2023 Non-patient / Non-visit Dr. Roselia Butt Work Phone: [facility] Start: 02-12-2023 End: 02-12-2023 Admission to same day surgery center Dr. Guilherme Butt Work Phone: [facility] Start: 02-12-2023 End: 02-12-[address] Guilherme Butt Work Phone: [facility] Work Phone: Start: 02-06-2023 End: 02-06-[address] Guilherme Btut Work Phone: [facility] Start: 02-06-[address] Ann Butt Work Phone: [facility] Start: 01-30-2023 End: 01-30-[address] Guilherme Butt Work Phone: [facility] Work Phone: Start: 01-19-2023 End: 01-19-[address] Guilherme Butt Work Phone: [facility] Start: 01-11-2023 End: 01-11-[address] Guilherme Butt Work Phone: [facility] Work Phone: Start: 01-03-2023 End: 01-03-[address] Guilherme Butt Work Phone: [facility] Work Phone: Start: 12-22-2022 End: 12-22-[address] Guilherme Butt Work Phone: [facility] Work Phone: Start: 12-22-2022 End: 12-22-[address] Guilherme Butt Work Phone: [facility] Start: 12-22-[address] Ann Butt Work Phone: [facility] Start: 11-28-2022 End: 11-28-[address] Guilherme Butt Work Phone: [facility] Work Phone: Start: 11-24-2022 End: 11-24-[address] Guilherme Butt Work Phone: [facility] Work Phone: Start: 11-24-2022 End: 11-24-[address] Guilherme Butt Work Phone: [facility] Start: 11-24-[address] Ann Butt Work Phone: [facility] Start: 11-08-2022 End: 11-08-[address] Guilehrme Butt Work Phone: [facility] Work Phone: Start: 10-20-2022 End: 10-20-[address] Guilherme Butt Work Phone: [facility] Work Phone: Start: 10-20-2022 End: 10-20-[address] Guilherme Butt Work Phone: [facility] Start: 10-03-2022 End: 10-03-[address] Guilherme Butt Work Phone: [facility] Work Phone: Start: 09-22-2022 End: 09-22-[address] Guilherme Butt Work Phone: [facility] Start: 09-21-2022 Non-patient / Non-visit Dr. Roselia Butt Work Phone: [facility] Start: 09-21-2022 End: 09-21-[address] [facility] Start: 09-04-2022 End: 09-04-[address] Guilherme Butt Work Phone: [facility] Start: 08-25-2022 End: 08-25-[address] Guilherme Butt Work Phone: [facility] Work Phone: Start: 08-25-2022 End: 08-25-[address] Guilherme Butt Work Phone: [facility] Start: 08-23-2022 Non-patient / Non-visit Dr. Roselia Butt Work Phone: [facility] Start: 08-10-2022 End: 08-10-[address] Guilherme Butt Work Phone: [facility] Start: 08-02-2022 End: 08-02-[address] Guilherme Butt Work Phone: [facility] Start: 08-02-2022 End: 08-02-2022 Emergency department patient visit Dr. Guilherme Butt Work Phone: [facility] Start: 07-25-2022 End: 07-25-[address] Guilherme Butt Work Phone: [facility] Start: 07-21-2022 End: 07-21-[address] Guilherme Butt Work Phone: [facility] Work Phone: Start: 07-21-2022 End: 07-21-[address] Guilherme Butt Work Phone: [facility] Start: 07-21-[address] Ann Butt Work Phone: [facility] Start: 06-27-2022 End: 06-27-[address] Guilherme Butt Work Phone: [facility] Start: 06-23-2022 End: 06-23-[address] Guilherme Butt Work Phone: [facility] Work Phone: Start: 06-23-2022 End: 06-23-[address] Guilherme Butt Work Phone: [facility] Start: 06-23-[address] Ann Butt Work Phone: [facility] Start: 06-06-2022 End: 06-06-[address] Guilherme Butt Work Phone: [facility] Start: 05-26-2022 End: 05-26-[address] Guilherme Butt Work Phone: [facility] Work Phone: Start: 05-26-2022 End: 05-26-[address] Guilherme Butt Work Phone: [facility] Start: 05-26-[address] Ann Butt Work Phone: [facility] Start: 05-18-2022 End: 05-18-[address] Guilherme Butt Work Phone: [facility] Start: 05-02-2022 End: 05-02-[address] Guilherme Butt Work Phone: [facility] Start: 04-21-2022 End: 04-21-[address] Guilherme Butt Work Phone: [facility] Work Phone: Start: 04-21-2022 End: 04-21-[address] Guilherme Butt Work Phone: [facility] Start: 04-21-[address] Ann Butt Work Phone: [facility] Start: 04-04-2022 End: 04-04-[address] Guilherme Butt Work Phone: [facility] Start: 04-03-2022 End: 04-03-[address] Guilherme Butt Work Phone: [facility] Start: 04-03-2022 End: 04-03-2022 Emergency department patient visit Dr. Guilherme Butt Work Phone: [facility] Start: 03-28-2022 End: 03-28-[address] Guilherme Butt Work Phone: [facility] Start: 03-24-2022 End: 03-24-[address] Guilherme Butt Work Phone: [facility] Work Phone: Start: 03-24-2022 End: 03-24-[address] Guilherme Butt Work Phone: [facility] Start: 02-24-2022 End: 02-24-[address] Guilherme Butt Work Phone: [facility] Start: 02-24-[address] Maikel allen Work Phone: [facility] Start: 02-07-2022 End: 02-07-[address] Maikel Mosquera Work Phone: [facility] Work Phone: Start: 02-07-2022 End: 02-07-[address] Maikel Mosquera Work Phone: [facility] Start: 02-07-[address] Maikel allen Work Phone: [facility] Start: 01-20-2022 End: 01-20-[address] Maikel Mosquera Work Phone: [facility] Work Phone: Start: 01-20-2022 End: 01-20-[address] Maikel Mosquera Work Phone: [facility] Start: 12-23-2021 End: 12-23-[address] Maikel Mosquera Work Phone: [facility] Work Phone: Start: 12-23-2021 End: 12-23-[address] Maikel Mosquera Work Phone: [facility] Start: 12-12-2021 End: 12-12-[address] Maikel Mosquera Work Phone: [facility] Start: 11-18-2021 End: 11-18-2021 Departed Referred MANAGER RELATIONSHIP-Devan Gray MANAGER RELATIONSHIP [facility] Start: 10-21-2021 End: 10-21-2021 Departed Referred MANAGER RELATIONSHIP-Devan Gray MANAGER RELATIONSHIP [facility] Start: 10-02-2021 End: 10-03-2021 Emergency department patient visit MANAGER RELATIONSHIP-Devan Gray MANAGER RELATIONSHIP [facility] Start: 09-23-2021 End: 09-23-2021 Departed Referred MANAGER RELATIONSHIP-Devan Gray NP [facility] Start: 09-23-2021 Registered Referred MANAGER RELATIONSHIP-Devan Gray MANAGER RELATIONSHIP [facility] Start: 09-19-2021 End: 09-19-2021 Patient encounter procedure MANAGER RELATIONSHIP-Devan Gray MANAGER RELATIONSHIP [facility] Start: 08-19-2021 End: 08-19-2021 Departed Referred [facility] Start: 08-19-2021 Registered Referred [facility] Start: 07-22-2021 End: 07-22-2021 Departed Referred [facility] Start: 07-22-2021 Registered Referred [facility] Start: 06-24-2021 End: 06-24-2021 Departed Referred [facility] Start: 05-27-2021 End: 05-27-2021 Departed Referred [facility] Procedures Date Procedure Procedure Detail Performing Clinician Start: 12-23-2024 Urnls dip stick/tabl et reagent auto microscopy Dr. Guilherme Butt MD Work Phone: Start: 12-23-[address] Ángel Butt MD Work Phone: Start: 06-27-2024 Measurement of renal function Dr. [...] Butt Work Phone: Start: 04-03-2022 Plain chest X-maurizio Butt Work Phone: Start: 10-02-2021 CT of head without contrast MANAGER RELATIONSHIP-Devan Gray NP Plan of Treatment Date Care Activity Detail Author Start: 12-23-2024 [facility] Start: 12-23-2024 Bacteria identified in Urine by Culture Urine Culture [facility] Start: 02-12-2023 Anesthesia intraperi toneal lower abd w/laps nos ANESTH SURG LOWER ABDOMEN [facility] Start: 02-12-2023 Laparoscopy surg rpr initial inguinal hernia LAP ING HERNIA REPAIR INIT [facility] Start: 02-12-2023 Patient discharge [facility] Start: 02-12-2023 [facility] NM Heart Views W str ess and W radionuclide IV [facility] Patient Education [facility] Work Phone: Patient referral [facility] Work Phone: Urine culture [facility] Payers Date Payer Category Payer Self-pay [id number] 2024 Unknown [id number] 2024 Unknown [id number] 2014 Unknown [id number] Medicare [id number] Unknown [id number] Unknown [id number] 2.16.8 40.1.184017.3.579.2.462 Unknown [id number] 2.16.8 40.1.018014.3.579.2.462 Unknown [id number] 2.16.8 40.1.622500.3.579.2.462 Unknown [id number] 2.16.8 40.1.172927.3.579.2.462 Unknown [id number] 2.16.8 40.1.045616.3.579.2.462 Unknown [id number] 2.16.8 40.1.658356.3.579.2.462 Unknown [id number] 2.16.8 40.1.905163.3.579.2.462 Unknown [id number] 2.16.8 40.1.152540.3.579.2.462 Unknown [id number] 2.16.8 40.1.568385.3.579.2.462 Unknown [id number] 2.16.8 40.1.987983.3.579.2.462 Unknown [id number] 2.16.8 40.1.909646.3.579.2.462 Unknown [id number] 2.16.8 40.1.378761.3.579.2.462 Unknown [id number] 2.16.8 40.1.174718.3.579.2.462 Unknown [id number] 2.16.8 40.1.001657.3.579.2.462 Unknown [id number] 2.16.8 40.1.754380.3.579.2.462 Unknown [id number] 2.16.8 40.1.133310.3.579.2.462 Unknown [id number] 2.16.8 40.1.217305.3.579.2.462 Unknown [id number] 2.16.8 40.1.390074.3.579.2.462 Unknown [id number] 2.16.8 40.1.333536.3.579.2.462 Unknown [id number] 2.16.8 40.1.211132.3.579.2.462 Unknown [id number] 2.16.8 40.1.206682.3.579.2.462 Unknown [id number] 2.16.8 40.1.280343.3.579.2.462 Unknown [id number] 2.16.8 40.1.971135.3.579.2.462 Unknown [id number] 2.16.8 40.1.481291.3.579.2.462 Unknown [id number] 2.16.8 40.1.631861.3.579.2.462 Unknown [id number] 2.16.8 40.1.766528.3.579.2.462 Unknown [id number] 2.16.8 40.1.310024.3.579.2.462 Unknown [id number] 2.16.8 40.1.514230.3.579.2.462 Unknown [id number] 2.16.8 40.1.394587.3.579.2.462 Social History Date Type Detail Facility Start: 07-24-2016 End: 03-12-2023 Tobacco smoking status ALIS Unknown if ever smoked [facility] Start: 04-21-2021 None [facility] Start: 04-21-2021 Non-smoker [facility] Start: 1945 Sex Assigned At Male [facility] Start: 03-12-2023 End: 11-26-2024 Tobacco smoking status NHIS Ex-smoker (finding) [facility] Start: 08-15-2024 Sex Male (finding) [facility] Medical Equipment Procedure Code Equipment Code Equipment Origin al Text Equipment Identifier Dates Extra-gynaecolog ical surgical mesh, composite-polymer [id number] FDA Start: 02-12-2023 Goals Date Patient Goal Desired Activity /State Mental Status Date Assessment Result Facility 02-12-2023 Cognitive function Level Of Cons ciousness Follows Commands;Drowsy [facility] Work Phone: 04-03-2022 Cognitive function Level Of Cons ciousness Awake;Alert;Appropriate [facility] Work Phone: 10-02-2021 Cognitive function Voice/Name [facility] Work Phone: Clinical Notes 11-11-2005 to 10-08-2024 Note Date & Type Note Facility 10-08-[address] [facility] Services 10-08-2024 Progress note Note Date/Time October 08, 2024 2:43pm [facility] [address] [place] [address] OFFICE VISIT Date of Service: 10/08/24 MR#: [id number] Acct: [id number] Name: IGOR CRUZ Rep #: [id number] : 1945 Provider: Dr. Isai Yen MD Age/Sex: 79/M Location: [facility] Status: Signed HPI HPI History of [...] NIBP Intake Visit Reasons: OVER DUE FU Cruller Maker Required: No Accompanied by: Self Is patient [...] bisacodyl 10 mg rectal suppository 10 mg PA DAILY PRN constipation 09/04/22 10/08/24 History carbidopa [...] stress test Hypertension Kidney disease Lives in long term Parkinson disease Parkinson's disease Syncope Valvular heart [...] and replacement of a hemisheild graft @ [facility] 11/21/05 Plan: Repeat echocardiogram. (3) Parkinson's [...] applicable) CC: Dr. Guilherme Butt MD ~ [facility] [employer] Work Phone: 1(578) 986-118910-02-2023 Discharge summary Author Ori Jones [facility] February 12, 2023 1:48pm Note Date/Time February 12, 2023 1: 47pm [facility] Medical Records Department [address] [place] [address] Instructions for Home/Discharge Instructions 02/12/23 1347 MR#: [id number] Acct: [id number] Name: IGOR CRUZ Rep #:[id number] : 1945 77 From: Ori wooten MD PCP: Dr. Guilherme Butt MD Status:R EG [facility] Discharge Instructions Procedure Hernia Diet Discharge Diet: [...] to schedule 2 week follow up appointment. [phone] Test Results: Test results from this visit [...] TID bisacodyl 10 mg suppository 10 mg PA DAILY PRN (Reason: constipation) carbidopa-levodopa 50-200 mg [...] CC: Dr. Guilherme Butt MD ~ Signed [facility] Work Phone: 1(525) 915-839610-02-2023 Procedure [facility] 02-12-2023 History and physical note Author Ori Jones [facility] February 12, 2023 10:45am Note Date/Time February 12, 2023 10 :46am [facility] Medical Records Department [address] [place] [address] History & Physical Exam 02/12/23 1045 MR#: [id number] Acct: [id number] Name: IGOR CRUZ Rep #:[id number] : 1945 77 From: Ori wooten MD PCP: Dr. Guilherme Butt MD Status:R EG [facility] Location: [place] [address] History and Physical Date of Admission: 02/12/23 Intake Vital Signs 09/04/2309:58 01/11/2314:37 Height 6 ft 6 ft Weight: 184 lb BMI 24.9 BP 130/85 H Blood Pressure Location Lt brachial Position Sitting Respiration 16 Intake Visit Reasons: INGUINAL HERNIA Chief Complaint: inguinal hernia Cruller Maker Required: No Is patient in pain?: No [...] bisacodyl 10 mg rectal suppository 10 mg PA DAILY PRN 09/04/22 [History Confirmed 01/11/23] carbidopa [...] inguinal hernia. He comes to from a long term. He reports is been there for at [...] to the procedure. Ori Jones MD Pager: [facility] [address], [address] [place] [address] Office: I have examined the patient and the H&P has been reviewed. There are no clinicalchanges since date of exam. 02/12/23 1045 <Electronically signed by Ori Jones MD> Cosigner Signature (if applicable): CC: Dr. Ori Jones MD; Dr. Guilherme Butt MD~ Signed [facility] Work Phone: 1(320) 939-484507-01-2006 Evaluation note* Diagnosis Onset Date Resolution Status History of aortic valve repl acement with bioprosthetic valve November, acute Chest pain chronic Essential hypertension chron ic Parkinson's disease chronic Paroxysmal atrial fibrillation chronic [facility] Work Phone: 1(496) 934-327407-01-2006 Evaluation note* Diagnosis Onset Date Resolution Status Admit Date History of aortic valve replacement with bioprosthetic valve November, acute October 08, 2024 2 :14pm Parkinson's disease chronic September 122024 2:14pm Paroxysmal atrial fibrillation chron ic October 08, 2024 2:14pm [facility] Work Phone: Discharge summary Author Dr. Callahan [facility] August 02, 2022 7:37am Note Date/Time August 02, 2022 7:1 3am [facility] Medical Records Department [address] [place] [address] Emergency Department Summary 08/02/22 MR#: [id number] Acct: [id number] Name: IGOR CRUZ Rep #:[id number] : 1945 77 From: Matt Cristina PCP: [...] States his hip does not hurt. Per long term patient injured his right hip after fall. [facility] Medical History Anxiety Atrial fibrillation Back pain [...] PO BID 07/24/16 [History Last Taken Unknown] Ethel Wharton Extract 5 drp PO DAILY 07/24/16 [History Last Taken Unknown] [place] Drink 1 packet PO DAILY 07/24/16 [History [...] Response: 6 Secondary Survey Constitutional: Please see MDM Head: Atraumatic, Midface stable, NO jaw malocclusion, [...] Oxygen Delivery Method Room Air Room Air MDM MDM MDM Narrative Medical decision making narrative: Chief Complaint: [...] determinants of health: Geriatric patient, resident of [facility] History obtained from others: EMS Shared decision [...] Daily Complex Tab 2 tab PO BID Ethel Wharton Extract 5 drp PO DAILY [place] Drink 1 packet PO DAILY Tumeric/Carcumin 1 [...] your Primary Care Provider. Call [facility] ([phone]) or report to the closest Emergency Room. Call 911 if necessary. 08/02/22 0737 <Electronically signed by Matt Callahan DO> Cosigner Signature (if applicable): CC: Dr. Guilherme Butt MD ~ Signed [facility] Work Phone: Evaluation noteNo assessment information available [facility] Work Phone: Evaluation note* Diagnosis Onset Date Resolution Status Left inguinal hernia acute [facility] Work Phone: Evaluation note* Diagnosis Onset Date Resolution Status Left inguinal hernia acute Left inguinal hernia acute [facility] Work Phone: Hospital Discharge instructions Additional Instructions Alternate ibuprofen and Tylenol for pain, may resume aspirin Sunday. [facility] Work Phone: Reason for referral (narrative)No reason for referral [facility] Work Phone: Summary Purpose Family History No Family History Records Found Relationship Condition Age at Onset Recorded Date/T jina mother Malignant neoplasm Unknown father Malignant neoplasm Unknown Chronic obstructive pulmonary disease Unk nown Advance Directives No Advanced Directives Records Found Advance Directive Response Recorded Date/ Time Living Will Yes July 24, 2016 9:10am Power of Facilities Mechanical Design Engineer Yes July 24 9:10am Advance Directive Response Recorded Date/ Time Living Will No October 02, 2021 8 :30pm Power of Facilities Mechanical Design Engineer No October 02, 2021 8:30pm Advance Directive Response Recorded Date/ Time Living Will No May 22 3 1:15pm Power of Facilities Mechanical Design Engineer No May 22, 2 023 1:15pm Advance Directive Response Recorded Date/ Time Living Will No May 22 3 2:15pm Power of Facilities Mechanical Design Engineer No May 22, 2 023 2:15pm Advance Directive Response Recorded Date/ Time Living Will No February 09, 2023 12:16pm Power of Facilities Mechanical Design Engineer No January 12:16pm Advance Directive Response Recorded Date/ Time Living Will No March 12 12:59pm Power of Facilities Mechanical Design Engineer No March 12, 2023 12:59pm Advance Directive Response Recorded Date/ Time Living Will No March 12 1:59pm Power of Facilities Mechanical Design Engineer No March 12, 2023 1:59pm Chief Complaint and Reason for Visit Chief Complaint CARE HOME LABWORK CARE HOME LABWORK CARE HOME LABWORK CARE HOME BLOOD WORK Chief Complaint CARE HOME LABWORK CARE HOME LABWORK CARE HOME BLOOD WORK MONTHLY EXAM CONFUSION Chief Complaint CARE HOME LABWORK CARE HOME BLOOD WORK MONTHLY EXAM CARE HOME LABWORK CONFUSION LABWORK Chief Complaint CARE HOME BLOOD W ORK MONTHLY EXAM CARE HOME LABWORK CONFUSION LABWORK CARE HOME LABWORK Chief Complaint MONTHLY EXAM CARE HOME LABWORK CONFUSION LABWORK CARE HOME LABWORK MONTHLY EXAM CARE HOME LABWORK Chief Complaint CARE HOME LABWORK MONTHLY EXAM CARE HOME LABWORK LABWORK CARE HOME LABWORK Chief Complaint CARE HOME LABWORK CARE HOME LAB WORK CARE HOME LABWORK MONTHLY EXAM syncope ACUTE CARE VISIT RE-ADMISSION NOTE CARE HOME LABWORK READMISSION NOTE NEW CONCERN/PROBLEM Chief Complaint CARE HOME LAB WOR K CARE HOME LABWORK MONTHLY EXAM syncope ACUTE CARE VISIT RE-ADMISSION NOTE CARE HOME LABWORK READMISSION NOTE NEW CONCERN/PROBLEM CARE HOME LABWORK Chief Complaint RE-ADMISSION NOTE CARE HOME LABWORK READMISSION NOTE NEW CONCERN/PROBLEM CARE HOME LABWORK MONTHLY CARE HOME LABWORK MONTHLY NOTE FALL Chief Complaint CARE HOME LABWORK READMISSION NOTE NEW CONCERN/PROBLEM CARE HOME LABWORK MONTHLY CARE HOME LABWORK MONTHLY NOTE CARE HOME LABWORK MONTHLY FALL NEW COMPLAINT Chief Complaint NEW CONCERN/PROBLEM CARE HOME LABWORK MONTHLY CARE HOME LABWORK MONTHLY NOTE CARE HOME LABWORK MONTHLY FALL NEW COMPLAINT NEW COMPLAINT Amb Documentation CARE HOME LABWORK CP, PREV AVR Reason for Visit 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 Chest pain Essential hypertension Parkinson's disease Paroxysmal atrial fibrillation Chief Complaint CP, PREV AVR CP, EVAL VALVE REPLACEMENT CARE HOME LABWORK MONTHLY EXAM CARE HOME LABWORK MONTHLY NOTE LABWORK MONTHLY EXAM Reason for Visit 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 Chest pain Essential hypertension Parkinson's disease Paroxysmal atrial fibrillation Chief Complaint CP, EVAL VALVE REPLA CEMENT CARE HOME LABWORK MONTHLY EXAM CARE HOME LABWORK MONTHLY NOTE LABWORK MONTHLY EXAM Chief Complaint CP, EVAL VALVE REPLA CEMENT CARE HOME LABWORK MONTHLY EXAM CARE HOME LABWORK MONTHLY NOTE LABWORK MONTHLY EXAM CARE HOME LABWORK INGUINAL HERNIA Chief Complaint CARE HOME LABWORK MONTHLY NOTE LABWORK MONTHLY EXAM CARE HOME LABWORK ACUTE VISIT INGUINAL HERNIA CARE HOME LAB WORK MONTHLY EXAM Lap Robotic Left poss Bilateral Ing Lap Robotic Left poss Bilateral Ing Reason for Visit Left inguinal hernia Chief Complaint MONTHLY NOTE LABWORK MONTHLY EXAM CARE HOME LABWORK ACUTE VISIT INGUINAL HERNIA CARE HOME LAB WORK MONTHLY EXAM CARE HOME LAB WORK Lap Robotic Left poss Bilateral Ing Lap Robotic Left poss Bilateral Ing CARE HOME LABWORK Hernia 02/12 Reason for Visit Left inguinal hernia Left inguinal hernia Chief Complaint CARE HOME LABWORK ACUTE VISIT INGUINAL HERNIA CARE HOME LAB WORK MONTHLY EXAM CARE HOME LAB WORK Lap Robotic Left poss Bilateral Ing Lap Robotic Left poss Bilateral Ing MONTHLY VISIT CARE HOME LABWORK Hernia 02/12 CARE HOME LABWORK Reason for Visit Left inguinal hernia Left inguinal hernia Chief Complaint Lap Robotic Left pos s Bilateral Ing Lap Robotic Left poss Bilateral Ing MONTHLY VISIT CARE HOME LABWORK Hernia 02/12 CARE HOME LABWORK MONTHLY EXAM NEW CONCERN CARE HOME LABWORK CARE HOME LABWORK Reason for Visit Left inguinal hernia Chief Complaint NEW CONCERN CARE HOME LABWORK CARE HOME LABWORK MONTHLY EXAM - MD LABWORK LABWORK Chief Complaint CARE HOME LABWORK MONTHLY EXAM - MD LABWORK MONTHLY [...] MONTHLY EXAM July 29, 2024 7:4 9pm CARE HOME LAB WORK August 22, 2024 5 :00am Chief Complaint Admit Date LABWORK June 27, 2024 5:00am MONTHLY VISIT July 03, 2024 10:45am LABWORK July 25, 2024 5:0 0am MONTHLY EXAM July 29, 2024 7:4 9pm CARE HOME LAB WORK August 22, 2024 5 :00am LABWORK September 19, 2024 5:00am OVER DUE October 08, 2024 2:14p m Reason for [...] Monthly Visit August 12, 2024 6:20 pm CARE HOME LAB WORK August 22, 2024 5 :00am LABWORK September 19, 2024 5:00am OVER DUE October 08, 2024 2:14p m Chief Complaint Admit Date MONTHLY EXAM July 29, 2024 7:4 9pm Monthly Visit August 12, 2024 6:20 pm CARE HOME LAB WORK August 22, 2024 5 :00am LABWORK September 19, 2024 5:00am MONTHLY EXAM September 23, 2024 5:30p m OVER DUE October 08, 2024 2:14p m CARE HOME LAB WORK October 24, 2024 5: 00am Chief Complaint Admit Date Monthly Visit August 12, 2024 6:20 pm CARE HOME LAB WORK August 22, 2024 5 :00am LABWORK September 19, 2024 5:00am MONTHLY EXAM September 23, 2024 5:30p m OVER DUE October 08, 2024 2:14p m MONTHLY VISIT October 16, 2024 11:00 am CARE HOME LAB WORK October 24, 2024 5: 00am Chief Complaint Admit Date CARE HOME LAB WORK August 22, 2024 5 :00am LABWORK September 19, 2024 5:00am MONTHLY EXAM September 23, 2024 5:30p m OVER DUE October 08, 2024 2:14p m MONTHLY VISIT October 16, 2024 11:00 am CARE HOME LAB WORK October 24, 2024 5: 00am LABWORK November 21, 2024 5:00 am HX OF AORTIC VALVE REPLACEMENT December 1:54pm Chief Complaint Admit Date LABWORK September 19, 2024 5:00am MONTHLY EXAM September 23, 2024 5:30p m OVER DUE October 08, 2024 2:14p m MONTHLY VISIT October 16, 2024 11:00 am CARE HOME LAB WORK October 24, 2024 5: 00am Monthly Exam November 18, 2024 6:56p m LABWORK November 21, 2024 5:00 am HX OF AORTIC VALVE REPLACEMENT December 1:54pm Chief Complaint Admit Date LABWORK September 19, 2024 5:00am MONTHLY EXAM September 23, 2024 5:30p m OVER DUE October 08, 2024 2:14p m MONTHLY VISIT October 16, 2024 11:00 am CARE HOME LAB WORK October 24, 2024 5: 00am Monthly Exam November 18, 2024 6:56p m LABWORK November 21, 2024 5:00 am HX OF AORTIC VALVE REPLACEMENT December 1:54pm MONTHLY NOTE December 12, 2024 5:3 6pm LABWORK December 19, 2024 5:0 0am LABWORK December 23, 2024 9: 55pm Chief Complaint Admit Date MONTHLY EXAM September 23, 2024 5:30p m OVER DUE October 08, 2024 2:14p m MONTHLY VISIT October 16, 2024 11:00 am CARE HOME LAB WORK October 24, 2024 5: 00am Monthly Exam November 18, 2024 6:56p m LABWORK November 21, 2024 5:00 am HX OF AORTIC VALVE REPLACEMENT December 1:54pm MONTHLY NOTE December 12, 2024 5:3 6pm LABWORK December 19, 2024 5:0 0am LABWORK December 23, 2024 9: 55pm New Concern January 07, 2025 5: 34pm Additional Source Comments (unrecognized sect ion and content) No Status Records FoundNo Status Records FoundNo Status Records Found INFORMATION SOURCE (unrecogn ized section and content) DATE CREATED AUTHOR 08/12/2019 [facility] ([place]) DATE CREATED AUTHOR AUTHOR'S ORGANIZ ATION 01/01/2021 [facility] DATE CREATED AUTHOR AUTHOR'S ORGANIZ ATION 01/20/2025 [facility] Goals (unrecognized section and content) Goals [...] MD Primary Care Provider Active Cecy Gray MANAGER RELATIONSHIP, MANAGER RELATIONSHIP-C Attending Provider Active Team Status: Inactive Member Role Status Dates Dr. Guilherme Butt MD Primary Care Provider, Atten ding Provider Active Team Status: Inactive Member Role Status Dates Dr. Maikel Mosquera MD Primary Care Provider Active Maikel Mosquera MD Attending Provider Active Team Status: Inactive Member Role Status Dates Dr. Natan Sanchez DO Attending Provider, Emergency P rovider Active Dr. Guilherme Butt MD Primary Care [...] Guilherme Butt MD Primary Care Provider Active [facility] Attending Provider Active Team Status: Active Member Role Status Dates Dr. Guilherme Butt MD Primary Care Provider Active Guilherme SHI MD Attending Provider Active Team Status: Inactive Member Role Status Dates Dr. Guilherme Butt MD Primary Care Provider Active Dr. Matt Callahan DO Emergency Provider Active Team Status: Inactive Member Role Status Dates Dr. Guilherme Butt MD Primary Care Provider Active [facility] Attending Provider Active Team Status: Inactive Member [...] Dr. Ori Jones MD Active Raquel AGRAWAL PA-C Attending Provider Active Team Status: Inactive Member [...] Status: Active Member Role Status Dates Dr. Guihlerme Butt MD Primary Care Provider Active Start: [...] 2024 End: August 12, 2024 Cecy Gray MANAGER RELATIONSHIP MANAGER RELATIONSHIP-C Attending Provider Active Start: August 12, 2024 [...] 2024 End: August 12, 2024 Cecy Gray MANAGER RELATIONSHIP MANAGER RELATIONSHIP-C Attending Provider Active Start: August 12, 2024 [...] End: August 12, 2024 Cecy Gray NP MANAGER RELATIONSHIP-C Attending Provider Active Start: August 12, 2024 [...] Active Start: December 12, 2024 Dr. Mike Poe MD Attending Provider Active S tart: December 12, 2024 Team Status: Active Member Role/Relationship Status Dates Dr. Guilherme Butt MD Primary Care Provider Active Start: December 19, 2024 Guilherme SHI MD Attending Provider Active Start: December 19, 2024 Team Status: Inactive Member Role/Relationship [...] Active Start: October 24, 2024 Team Status: Inactive Member Role/Relationship Status Dates Dr. Guilherme Butt MD Primary Care Provider Active Start: November 18, 2024 End: November 18, 2024 Dr. Guilherme Butt MD Attending Provider Active Start: November 18, 2024 End: November 18, 2024 Team Status: Active Member Role/Relationship Status Dates Dr. Guilherme Butt MD Primary Care Provider Active Start: December 23, 2024 Guilherme SHI MD Attending Provider Active Start: December 23, 2024 Team Status: Inactive Member Role/Relationship Status Dates Dr. Guilherme Butt MD Primary Care Provider Active Start: December 12, 2024 End: December 12, 2024 Cecy Gray NP [employer] Attending Provider Active Start: December 12, 2024 End: December 12, 2024 Team Status: Active Member Role/Relationship Status Dates Dr. Guilherme Butt MD Primary Care Provider Active Start: December 19, 2024 Guilherme SHI MD Attending Provider Active Start: December 19, 2024 Team Status: Active Member Role/Relationship Status Dates Dr. Guilherme Butt MD Primary Care Provider Active Start: December 23, 2024 Guilherme SHI MD Attending Provider Active Start: December 23, 2024 Team Status: Inactive Member Role/Relationship [...] Active Start: October 24, 2024 Team Status: Inactive Member Role/Relationship Status Dates Dr. Guilherme Butt MD Primary Care Provider Active Start: November 18, 2024 End: November 18, 2024 Dr. Guilherme Butt MD Attending Provider Active Start: November 18, 2024 End: November 18, 2024 Team Status: Active Member Role/Relationship Status [...] Active Start: December 12, 2024 Dr. Mike Poe MD Attending Provider Active S tart: December 12, 2024 Team Status: Inactive Member Role/Relationship Status Dates Dr. Guilherme Butt MD Primary Care Provider Active Start: December 12, 2024 End: December 12, 2024 Cecy Gray NP [employer] Attending Provider Active Start: December 12, 2024 End: December 12, 2024 Team Status: Inactive Member Role/Relationship Status Dates Dr. Guilherme Butt MD Primary Care Provider Active Start: January 07, 2025 End: January 07, 2025 Cecy Gray NP [employer] Attending Provider Active Start: January 07, 2025 End: January 07, 2025 FOR RECORDS PERTAINING TO PATIENTS WHO ARE [...] BE BASED ON THE PRIMARY CLINICAL RECORDS. [employer] provides no warranty or guarantee of the accuracy or completeness of information in this document.
[2025-01-23 07:13] LABS: Hematocrit 36.4 % (40-54); Hemoglobin 12.6 g/dL (13.0-16.5); Mean Corp Hgb Conc 34.6 g/dL (32-36); Mean Corpuscular Volume 94.5 fL (80-94); Mean Platelet Vol. 9.4 fl (6.2-12.0); Platelet Count 188 K/mm3 (150-450); RBC Distribution Width CV 12.7 % (11.6-14.6); RBC Distribution Width SD 44.1 fl (35.1-43.9); Red Blood Count 3.85 M/mm3 (4.6-6.2); White Blood Count 4.0 K/mm3 (4.4-11.0)
[2025-01-23 08:45] LABS: Cholesterol 155 mg/dL (<=200); Low Density Lipoprotein Calc. 92 mg/dL; Triglycerides 65 mg/dL; Very Low Density Lipoprotein 13 mg/dL (5-40); cholesterol:hdl ratio screen 3.12
[2025-01-23 09:04] LABS: AST(SGOT) 20 U/L (<=37); Alanine Aminotransfer ALT/SGPT < 5 U/L (<=46); Albumin, Serum 3.9 g/dL (3.4-4.8); Alkaline Phosphatase 112 U/L (40-129); Anion Gap 11 (5-15); BUN 27 mg/dL (4-19); BUN/Creat Ratio 32.4 RATIO (10-20); Bilirubin, Direct 0.16 mg/dL (0.00-0.30); Calcium,Total 8.9 mg/dL (7.6-11.0); Carbon Dioxide 25.2 mmol/L (21.0-32.0); Chloride 104 mmol/L (98-108); Globulin 2.2 g/dL (2.2-4.2); Glucose 90 mg/dL (70-99); Potassium 4.5 mmol/L (3.3-5.1)
== END ==
LOC: OLS.WHLEAS 05:00
PROVIDERS: PCP Internal Medicine; Visit Provider Internal Medicine
DX: N18.30 Chronic kidney disease, stage 3 unspecified (principal); G20.C Parkinsonism, unspecified; F02.80 Dementia in other diseases classified elsewhere, unspecified severity, without behavioral disturbance, psychotic disturbance, mood disturbance, and anxiety; I48.20 Chronic atrial fibrillation, unspecified
CPT/HCPCS: 36415; 80048; 80061; 80076; 83036; 84439; 84443; 85027

== ENCOUNTER → 2025-02-20 05:25 | Outpatient (REF) | payer MEDICARE, MEDICAID, SELFPAY ==
[2025-02-20 08:19] LABS: Hematocrit 38.2 % (40-54); Hemoglobin 12.5 g/dL (13.0-16.5); Mean Corp Hgb Conc 32.7 g/dL (32-36); Mean Corpuscular Volume 96.5 fL (80-94); Mean Platelet Vol. 9.3 fl (6.2-12.0); Platelet Count 169 K/mm3 (150-450); RBC Distribution Width CV 12.8 % (11.6-14.6); RBC Distribution Width SD 44.9 fl (35.1-43.9); Red Blood Count 3.96 M/mm3 (4.6-6.2); White Blood Count 4.9 K/mm3 (4.4-11.0)
[2025-02-20 08:34] LABS: Anion Gap 7 (5-15); BUN 30 mg/dL (4-19); BUN/Creat Ratio 31.0 RATIO (10-20); Calcium,Total 8.8 mg/dL (7.6-11.0); Carbon Dioxide 28.8 mmol/L (21.0-32.0); Chloride 105 mmol/L (98-108); Glucose 162 mg/dL (70-99); Potassium 4.4 mmol/L (3.3-5.1)
== END ==
LOC: OLS.WHLEAS 05:25
PROVIDERS: PCP Internal Medicine; Visit Provider Internal Medicine
DX: N18.30 Chronic kidney disease, stage 3 unspecified (principal); I48.20 Chronic atrial fibrillation, unspecified; G20.C Parkinsonism, unspecified; F02.80 Dementia in other diseases classified elsewhere, unspecified severity, without behavioral disturbance, psychotic disturbance, mood disturbance, and anxiety
CPT/HCPCS: 36415; 80048; 85027

== ENCOUNTER → 2025-03-20 05:00 | Outpatient (REF) | payer MEDICARE, MEDICAID, SELFPAY ==
--- OUTSIDE RECORDS SUMMARY | 2025-03-20 04:12 | XMS RPT_ITS | CCD ---
Author Organization [facility] Care Team Providers Care Weight Tester Name Role Phone Isaac INTERNATIONAL ACCOUNT EXECUTIVE, INTERNATIONAL ACCOUNT EXECUTIVE-C Cecy Attending Provider Dr. Maikel Alfaro Primary Care Provider Tickashli INTERNATIONAL ACCOUNT EXECUTIVE, INTERNATIONAL ACCOUNT EXECUTIVE-C Cecy Attending Provider Dr. Guilherme Barrera Primary Care Provider Dr. Guilherme Butt Attending Provider [phone] Isaac INTERNATIONAL ACCOUNT EXECUTIVE, INTERNATIONAL ACCOUNT EXECUTIVE-C Cecy Attending Provider Dr. Guilherme Barrera Primary Care Provider [phone] Isaac INTERNATIONAL ACCOUNT EXECUTIVE, INTERNATIONAL ACCOUNT EXECUTIVE-C Cecy Attending Provider Dr. Guilherme Barrera Attending Provider [phone] Tickashli OLS, INTERNATIONAL ACCOUNT EXECUTIVE-C Cecy Attending Provider [phone] Dr. Guilherme Butt Primary Care Provider [phone] Tickashli INTERNATIONAL ACCOUNT EXECUTIVE, INTERNATIONAL ACCOUNT EXECUTIVE-C Cecy Attending Provider Dr. Guilherme Barrera Primary Care Provider [phone] Tickashli INTERNATIONAL ACCOUNT EXECUTIVE, INTERNATIONAL ACCOUNT EXECUTIVE-C Cecy Attending Provider UnaLucita Rivera Attending Provider Unavailable Dr. Guilherme Butt Referring Provider [phone] Dr. Dwain Yen Attending Provider Dr. Guilherme Butt Primary Care Provider [phone] Dr. Mike Poe Attending Provider Dr. Dwain Yen Referring Provider Dr. Guilherme Butt Attending Provider [phone] Isaac INTERNATIONAL ACCOUNT EXECUTIVE, INTERNATIONAL ACCOUNT EXECUTIVE-C Cecy Attending Provider Unav Dr. Guilherme Kerr Primary Care Provider [phone] Dr. Guilherme Butt Referring Provider [phone] Dr. Ori Jones Attending Provider Dr. Guilherme Butt Primary Care Provider [phone] Dr. Guilherme Butt Attending Provider [phone] Dr. Ori Jones Referring Provider Dr. Ori Jones Other Provider BIRD Stewart Attending Provider Dr. Guilherme Butt Primary Care Provider [phone] Isaac INTERNATIONAL ACCOUNT EXECUTIVE, INTERNATIONAL ACCOUNT EXECUTIVE-C Cecy Attending Provider Unav Dr. Guilherme Kerr Referring Provider [phone] Dr. Ori Jones Attending Provider Dr. Guilherme Butt Attending Provider [phone] Dr. Ori Jones Referring Provider Dr. Ori Jones Other Provider BIRD Stewart Attending Provider Dr. Guilherme Butt Primary Care Provider [phone] Dr. Ori Jones Attending Provider Isaac INTERNATIONAL ACCOUNT EXECUTIVE, INTERNATIONAL ACCOUNT EXECUTIVE-C Cecy Attending Provider Dr. Guilherme Butt Referring Provider [phone] Dr. Guilherme Butt Attending Provider [phone] Dr. Guilherme Butt Primary Care Provider [phone] Isaac INTERNATIONAL ACCOUNT EXECUTIVE, INTERNATIONAL ACCOUNT EXECUTIVE-C Cecy Attending Provider Dr. Guilherme Butt Attending Provider [phone] Oleghe, Dr. Vanegas Primary Care Provider [phone] TANJA Painter Attending Provider [phone] Filomena LEVIN, Dr. Vanegas Primary Care Provider Guilherme Butt MD Attending Provider Daljit Butt MD, Dr. Vanegas Attending Provider [phone] Camilo Painter Attending Provider [phone] Filomena LEVIN, Dr. Vanegas Primary Care Provider Filomena LEVIN, Guilherme Attending Provider Daljit Gray INTERNATIONAL ACCOUNT EXECUTIVE-CCecy Attending Provider [phone] Filomena LEVIN, Dr. Vanegas Primary Care Provider Guilherme Butt MD Attending Provider Daljit Butt MD, Dr. Vanegas Attending Provider [phone] Filomena LEVIN, Dr. Vanegas Referring Provider [phone] Farshad LEVIN, Dr. Prakash Attending Provider Filomena LEVIN, Dr. Vanegas Primary Care Provider Guilherme Butt MD Attending Provider Daljit Gray INTERNATIONAL ACCOUNT EXECUTIVE-CCecy Attending Provider Filomena LEVIN, Dr. Vanegas Primary [...] LEVIN, Dr. Vanegas Primary Care Provider Isaac INTERNATIONAL ACCOUNT EXECUTIVE-C, Cecy Attending Provider [phone] Isaac INTERNATIONAL ACCOUNT EXECUTIVE-C, Cecy Attending Provider Filomena LEVIN, Dr. Vanegas Primary Care Provider Filomena LEVIN, Guilherme Attending Provider Daljit Butt MD, Dr. Vanegas Primary Care Physician Camilo Painter Attending Physician Isaac INTERNATIONAL ACCOUNT EXECUTIVE-C, Cecy Attending Physician Filomena LEVIN, Dr. Vanegas Attending Physician [phone] Filomena LEVIN, Guilherme Attending Physician Unavail nicki Yen MD, Dr. Prakash Attending Physician [phone] Deepika LEVIN, Dr. Mckeon Attending Physician Isaac INTERNATIONAL ACCOUNT EXECUTIVE-C, Cecy Attending Physician Filomena LEVIN, Dr. Vanegas Referring Provider [phone] Lucita Klein Attending Physician [phone] Filomena LEVIN, Dr. Vanegas Primary Care Physician Oleghe, Efewongbe Primary Care Unavailable Oleghe, Efewongbe Referring Unavailable Lucita Rosas Attending Unavailabl e Oleghe, Efewongbe Primary Care Unavailable Oleghe, Efewongbe Attending Unavailable Oleghe, Efewongbe Attending Unavailable Oleghe, Efewongbe Primary Care Unavailable Oleghe, Efewongbe Primary Care Unavailable Oleghe, Efewongbe Attending Unavailable Oleghe JOSE GUADALUPE Efewongbe Attending Unavailabl e Oleghe, Efewongbe Primary Care Unavailable Oleghe JOSE GUADALUPE Efkieranongbe Attending Unavailabl e Oleghe, Efewongbe Primary Care Unavailable Oleghe OLS Efewongbe Attending Unavailabl e Oleghe, Efewongbe Primary Care Unavailable Oleghe OLSKellyongbe Attending Unavailabl e Oleghe, Efewongbe Primary Care Unavailable Oleghe, Efewongbe Primary Care Unavailable Dwain Yen Referring Unavailable Farshad, Dwain Attending Unavailable Oleghe, Efewongbe Primary Care Unavailable Camilo Painter Attending Unavailable Oleghe, Efewongbe Primary Care Unavailable Camilo Painter Attending Unavailable Oleghe, Efewongbe Primary Care Unavailable Oleghe, Efewongbe Attending Unavailable Oleghe, Efewongbe Primary Care Unavailable Cecy Gray Attending Unavailable Oleghe OLS, Efewongbe Attending Unavailabl e Oleghe, Efewongbe Primary Care Unavailable Oleghe OLS, Efewongbe Attending Unavailabl e Oleghe, Efewongbe Primary Care Unavailable Cecy Gage Attending Unavailable Oleghe, Efewongbe Primary Care Unavailable Oleghe OLS, Efewongbe Attending Unavailabl e Oleghe, Efewongbe Primary Care Unavailable Oleghe OLS, Efewongbe Attending Unavailabl e Oleghe, Efewongbe Primary Care Unavailable Cecy Gage Attending Unavailable Oleghe, Efewongbe Primary Care Unavailable [...] Unavailable Oleghe, Efewongbe Attending Unavailable Oleghe, Efewongbe Referring Unavailable Farshad, Dwain Attending Unavailable Oleghe, Efewongbe Primary Care Unavailable Oleghe, Efewongbe Primary Care Unavailable Mike Poe Attending Unavailable Oleghe, Efewongbe Primary Care Unavailable Cecy Gray Attending Unavailable Oleghe, Efewongbe Attending Unavailable Oleghe, Efewongbe Primary Care Unavailable Medications Current Medications Medication Drug Class(es) Dates Sig (Normalized) Sig (Original) acetaminophen 325 mg oral tablet (20 sources) Start: 09-04-2022 take 2 tablets by mouth three times daily Start: 09-04-2022 take 650 mg by mouth [...] mg/ml / simethicone 8 mg/ml oral suspension (6 sources) Start: 09-04-2022 take 1 mL by mouth o nce daily as needed Start: 09-04-2022 take 1 mL by mouth [...] Start: 07-24-2016 take 1 tablet by pavan once daily Alena, Bladder Health Active 1 TABLET PO DAILY July 23, 2016 11:00pm Start: 07-24-2016 take 1 tablet by pavan once daily Alena, Bladder Health Active 1 TABLET PO DAILY July 24, 2016 12:00am aspirin 81 mg delayed release oral tablet (20 sources) Platelet Aggregation Inhibitor, Nonsteroidal Anti-inflammatory Drug Start: 09-04-2022 End: 09-04-2022 Start: 07-24-2016 End: 09-04-2022 take 1 tablet by mouth once daily Aspirin 325 MG tablet Discontinued 325 mg PO DAILY@0800 July 24, 2016 12:00am September 04, 2022 10:50am bisacodyl 10 mg rectal suppository (20 sources) Stimulant Laxative Start: 09-04-2022 carbidopa 25 mg / levodopa 1 00 mg oral tablet (20 sources) Aromatic Amino Acid Decarboxylation Inhibitor, Aromatic Amino Acid Start: 01-11-2023 Start: 01-11-2023 take 1 tablet by pavan three times daily Carbidopa-Levodopa Active 1 TABLET PO THREE TIMES A DAY January 11, 2023 12:00am Start: 09-04-2022 Start: 09-04-2022 take 1 tablet by pavan at bedtime Carbidopa-Levodopa Active 1 TABLET PO AT BEDTIME September 04, 2022 12:00am Chlorofresh (20 sources) Start: 07-24-2016 take 2 tablets by mo [facility] once daily Chlorofresh Active 2 [...] Start: 07-24-2016 take 2 tablets by mo [facility] once daily Chlorofresh Active 2 TABLET PO DAILY July 23, 2016 11:00pm Start: 07-24-2016 take 2 tablets by mo ut once daily Chlorofresh Active 2 TABLET PO DAILY July 24, 2016 12:00am docusate sodium 50 mg / sennosides, custodial 8.6 mg oral tablet (20 sources) Start: 09-04-2022 DULoxetine 60 mg delayed release oral capsule (20 sources) Serotonin and Norepinephrine Reuptake Inhibitor Start: 09-04-2022 take 1 capsule by mouth once daily Efa, Essential Fatty Acid (20 sources) Start: [...] 10:51am Start: 07-24-2016 take 1 capsule by [facility] three times daily Efa, Essential Fatty Acid Active 1 CAP PO THREE TIMES A DAY July 23, 2016 11:00pm Start: 07-24-2016 take 1 capsule by mo [facility] three times daily Efa, Essential [...] TWICE A DAY July 24, 2016 12:00am magnesium hydroxide 80 mg/ml oral suspension (20 sources) Start: 09-04-2022 take 1 mL by mouth o nce daily as needed Start: 09-04-2022 take 1 mL by mouth o nce daily as needed Magnesium Hydroxide (Milk Of [...] take 1 tablet by mouth at bedtime metoprolol tartrate 25 mg oral tablet (20 sources) beta-Adrenergic Sandro Start: 01-29-2025 take 1 tablet by mouth twice daily Start: 07-24-2016 End: 09-04-2022 take 1 tablet by mouth once daily Metoprolol Succinate 25 MG tablet Discontinued 25 mg PO DAILY July 24, 2016 12:00am September 04, 2022 11:30am [place] Extract (20 sources) Start: 07-24-2016 [place] Ext ract Active 5 DRP PO DAILY July 24, 2016 8:58am Start: 07-24-2016 End: 09-04-2022 [place] Extract Discontin ued 5 NMA PO DAILY July 24, 2016 12:00am September 04, 2022 10:51am Start: 07-24-2016 End: 09-04-2022 [place] Extract Discontin ued 5 DRP PO DAILY July 23, 2016 11:00pm September 04, 2022 9:51am Start: 07-24-2016 End: 09-04-2022 [place] Extract Discontin ued 5 DRP PO DAILY July 24, 2016 12:00am September 04, 2022 10:51am Start: 07-24-2016 [place] Ext ract Active 5 DRP PO DAILY July 23, 2016 11:00pm Start: 07-24-2016 [place] Ext ract Active 5 DRP PO DAILY July 24, 2016 12:00am pimavanserin 34 mg oral capsule (11 sources) Atypical Antipsychotic Start: 10-08-2024 take 1 capsule by mouth once daily polyethylene glycol 3350 03606 mg powder for oral solution (20 sources) Osmotic Laxative Start: 09-04-2022 QUEtiapine 100 mg oral tablet (20 sources) Atypical Antipsychotic Start: 01-29-2025 Start: 09-04-2022 take 1 tablet by pavan th once daily Start: 09-04-2022 End: 01-29-2025 take 1 tablet by mouth at bedtime Quetiapine 100 mg tablet Discontinued 100 mg PO AT BEDTIME September 04, 2022 12:00am January 29, 2025 3:22pm rivastigmine 4.5 mg oral cap jose (20 sources) Start: 09-04-2022 take 6 mg by mouth twice daily Start: 09-04-2022 take 6 mg by mouth twice daily Rivastigmine Tartrate Active 6 MG PO TWICE A DAY September 04, 2022 12:00am Start: 09-04-2022 take 4.5 mg by mouth twice daily Rivastigmine Tartrate Active 4.5 MG PO TWICE A DAY September 04, 2022 12:00am [place] (20 sources) Start: 07-24-2016 [place] Active 1 PACKET PO DAILY July 24, 2016 8:58am Start: 07-24-2016 End: 09-04-2022 [place] Discontinued 1 NMA PO DAILY July 24, 2016 12:00am September 04, 2022 10:51am Start: 07-24-2016 End: 09-04-2022 [place] Discontinued 1 PACKET PO DAILY July 23, 2016 11:00pm September 04, 2022 9:51am Start: 07-24-2016 End: 09-04-2022 [place] Discontinued 1 PACKET PO DAILY July 24, 2016 12:00am September 04, 2022 10:51am Start: 07-24-2016 [place] Active 1 PACKET PO DAILY July 23, 2016 11:00pm Start: 07-24-2016 [place] Active 1 PACKET PO DAILY [...] 12:00am September 04, 2022 10:51am 24 hr mirabegron 25 mg extended release oral tablet (20 sources) beta3-Adrenergic Agonist Start: 09-04-2022 End: 01-29-2025 take 1 tablet by mouth once daily Mirabegron (Myrbetriq) 25 mg tablet extended release 24 hr Discontinued 25 mg PO DAILY September 04, 2022 12:00am January 29, 2025 3:22pm red yeast rice 600 mg oral capsule [...] [Chronic kidney disease, stage 3 unspecified] Onset: 03-10-2025 Delirium, dementia, and amnestic and other cognitive [...] and replacement of a hemisheild graft @ [facility] 11/21/05 Nonspecific chest pain (20 sources) Chest pain; Translations: [Chest pain, unspecified] Onset: 01-29-2025 09-04-2022 Episodic Osteoarthritis (20 sources) Chronic osteoarthritis; Translations: [Unspecified osteoarthritis, unspecified site] 05-21-2013 Chronic Other circulatory disease (20 sources) H/O: major vascular surgery; Translations: [Presence of other vascular implants and grafts] Onset: 11-11-2005 08-23-2022 Chronic Comment on above: resection of aneurys m of ascending aorta and replacement of a hemisheild graft @ [facility] 11/21/05 Other nervous system disorders (20 sources) [...] Translations: [Syncope and collapse] 04-11-2022 Episodic Unclassified (2 sources) Chronic atrial fibrillation, unspecified; Translations: [Chronic atrial fibrillation, unspecified] Onset: 06-13-2024 Unclassified (1 source) Parkinsonism, unspecified; Translations: [Parkinsonism, unspecified] Onset: 03-10-2025 Unclassified (1 source) Low back pain, unspecified; Translations: [Low back pain, unspecified] Onset: 12-29-2024 Past or Other Problems Problem Classification Problem Date Documented Da te Episodic/Chronic Malaise and fatigue (1 source) Other fatigue; Translations: [Other fatigue] Onset: 12-01-2024 Episodic Results Test Name Value Interpretation Reference Range Facility Anion gap in Serum or Plasma Ordered By: Guilherme Butt on 02-20-2025 Anion gap [Moles/Vol] 7 mmol/L 5-15 [facility] BUN/creatinine ratioOrdered By: Guilherme Butt on 02-20-2025 Urea nitrogen/Creatinine [Mass ratio] 31.0 mg/mg High 10-20 [facility] Carbon dioxide, total [Moles /volume] in Central venous bloodOrdered By: Guilherme Butt on 02-20-2025 CO2 [Moles/Vol] 28.8 mmol/L 21.0-32.0 [facility] Chloride assayOrdered By: Roselia Butt on 02-20-2025 Chloride [Moles/Vol] 105 mmol/L 98-108 [facility] Erythrocyte distribution wid th ratioOrdered By: Guilherme Butt on 02-20-2025 Erythrocyte distribution width (RBC) [Ratio] 12.8 % 11.6-14.6 [facility] Erythrocyte distribution wid th standard deviationOrdered By: Guilherme Butt on 02-20-2025 Erythrocyte distribution width (RBC) [Ratio] 44.9 fl High 35.1-43.9 [facility] Glomerular filtration rate ( GFR) estimation/1.73 sq m using serum, plasma, or whole bOrdered By: Guilherme Butt on 02-20-2025 GFR/1.73 sq M.predicted among non-blacks MDRD (S/P/Bld) [Vol rate/Area] 79 mL/min/{1.73_m2} >60 [facility] Comment on above: mL/min/1.73m2 CKD-EP I Creatinine Equation (2020) Hematocrit Auto (Bld) [Volum e fraction]Ordered By: Guilherme Butt 02-20-2025 Hematocrit (Bld) [Volume fraction] 38.2 % Low 40-54 [facility] Hemoglobin measurementOrdere d By: Guilherme Butt 02-20-2025 Hemoglobin (Bld) [Mass/Vol] 12.5 g/dL Low 13.0-16.5 [facility] MCV (mean corpuscular volume ) determinationOrdered By: Guilherme Butt 02-20-2025 MCV (RBC) [Entitic vol] 96.5 fL High 80-94 [facility] Mean corpuscular hemoglobin (MCH) determinationOrdered By: Guilherme Butt 02-20-2025 MCH (RBC) [Entitic mass] 31.6 pg 27.0-32.0 [facility] Mean corpuscular hemoglobin concentration (MCHC) determinationOrdered By: Guilherme Butt on 02-20-2025 MCHC (RBC) [Mass/Vol] 32.7 g/dL 32-36 [facility] Mean platelet volume determi nationOrdered By: Guilherme Branhammarianjessenia on 02-20-2025 Platelet mean volume (Bld) [Entitic vol] 9.3 fL 6.2-12.0 [facility] Platelet countOrdered By: Roselia cristeladmitri Butt on 02-20-2025 Platelets (Bld) [#/Vol] 169 10*3/uL 150-450 [facility] Potassium measurement (mass/ volume)Ordered By: Guilherme Butt on 02-20-2025 Potassium (Unsp spec) [Mass/Vol] 4.4 mmol/L 3.3-5.1 [facility] RBC Auto (Bld) [#/Vol]Ordere d By: Guilherme Butt on 02-20-2025 RBC (Bld) [#/Vol] 3.96 10*6/uL Low 4.6-6.2 [facility] Serum creatinine measurement (mass/volume)Ordered By: Guilherme Branhammarianjessenia on 02-20-2025 Creatinine [Mass/Vol] 0.97 mg/dL 0.70-1.20 [facility] Serum glucose measurement (m ass/volume)Ordered By: Guilherme Butt 02-20-2025 Glucose [Mass/Vol] 162 mg/dL High 70-99 [facility] Serum or plasma calcium farshad urement (mass/volume)Ordered By: Guilherme Butt 02-20-2025 Calcium [Mass/Vol] 8.8 mg/dL 7.6-11.0 [facility] Serum or plasma urea nitroge n measurement (mass/volume)Ordered By: Guilherme Butt 02-20-2025 Urea nitrogen [Mass/Vol] 30 mg/dL High 4-19 [facility] Sodium levelOrdered By: Kelly anne Filomena on 10-10-2025 Sodium [Moles/Vol] 141 mmol/L 133-145 [facility] White blood cell (WBC) count Ordered By: Guilherme Butt on 02-20-2025 WBC (Bld) [#/Vol] 4.9 10*3/uL 4.4-11.0 [facility] Cardiology Visit Reporton Cardiology Visit Report [facility] [address] [place] [address] OFFICE VISIT Date of Service: 01/29/25 MR#: [id number] Acct: [id number] Name: IGOR HANSEN Rep #: [id number] : 1945 Provider: TANJA Barrios Age/Sex: 79/M Location[place] [facility] [place] Status: Signed HPI HPI History of Present Illness Details: Gabi Hansen is a 79-year-old gentleman with a history of aortic valve disease with aortic valve replacement in 2005. He had a bioprosthetic aortic valve placed. He also has a history of paroxysmal atrial fibrillation. He is not anticoagulated due to his history of falls. He also has a history of hypertension and Parkinson's disease. He does reside at [facility]. He was seen by his PCP over there and had noted chest discomfort. He had a stress test in 2022 that was negative for ischemia. Echocardiogram in December 2024 demonstrated an ejection fraction of 50% with stable bioprosthetic aortic valve. Severely dilated aortic root measuring 5.7 cm. Pt notes that he woke up a few nights ago with chest pain. It lasted approx one minute. He notes that they occur approx once a month. He does not have any worsening SOB. He does not have any palpitations. EKG today demonstrates SR with 1st AVB with a LBBB. 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 Is patient in pain?: No Allergies No Known Allergies Allergy (Verified 01/29/25 15:20) Medications ???Medication ???Instructions ???Recorded ???Confirmed ???Type acetaminophen 325 mg tablet 650 mg PO TID 09/04/22 01/29/25 Hi story aluminum-mag hydroxide-simethicon e 15 ml PO DAILY PRN indigestion 0 09/04/22 01/29/25 History 400 mg-400 mg-40 mg/5 mL oral susp (Mylanta Maximum Strength) aspirin 81 mg tablet,delayed 81 mg PO DAILY #30 tabs 09/04/22 0 01/29/25 Rx release (Adult Low Dose Aspirin) bisacodyl 10 mg rectal suppository 10 mg MN DAILY PRN constipation 09/04/22 01/29/25 History carbidopa ER 50 mg-levodopa 200 mg 1 tab PO QHS 09/04/22 01/29/25 H istory tablet,extended release duloxetine 60 mg capsule,delayed 60 mg PO DAILY 09/04/22 01/29/25 H istory release magnesium hydroxide 400 mg/5 mL 30 ml PO DAILY PRN stomach upset 0 09/04/22 01/29/25 History oral suspension (Milk of Magnesia) melatonin 10 mg tablet 10 mg PO HS 09/04/22 01/29/25 Hist ory polyethylene glycol 3350 17 gram 17 g PO DAILY 09/04/22 01/29/25 Hi story oral powder packet (Miralax) quetiapine 50 mg tablet 50 mg PO DAILY 09/04/22 01/29/25 H istory rivastigmine tartrate 4.5 mg 6 mg PO BID 09/04/22 01/29/25 Hist ory capsule sennosides 8.6 mg-docusate sodium 1 tab-cap PO BID 09/04/22 5 History 50 mg tablet (Senna-S) carbidopa 25 mg-levodopa 100 mg 1 tab PO TID 01/11/23 01/29/25 His tory tablet pimavanserin 34 mg capsule 34 mg PO QDAY 10/08/24 01/29/25 Hi story (Nuplazid) metoprolol tartrate 25 mg tablet 25 mg PO BID #60 tabs 01/29/25 Rx quetiapine 100 mg tablet 75 mg PO QHS 01/29/25 01/29/25 His tory Ejection fraction %: 50 Have you fallen in the past year?: Yes [facility] Medical History [facility] Walker as ambulation aid Syncope History of edema History of stress test History of echocardiogram Cardiology follow-up encounter CKD (chronic kidney disease) stage 3, GFR 30-59 ml/min Essential hypertension Parkinson's disease Anxiety Hallucination Depression Back pain Benign prostate hyperplasia Endocarditis Kidney disease Hypertension Atrial fibrillation Dementia Parkinson disease Valvular heart disease Cardiac arrhythmia Chronic osteoarthritis Surgical History History of robot-assisted repair of left inguinal hernia ( 02/2023) History of back surgery History of bunionectomy of right great toe Hx of cystoscopy History of ascending aortic replacement ( 11/21/05) History of aortic valve replacement with bioprosthetic valve ( 11/21/05) History of hip replacement History of foot surgery Family History Mother Cancer Stomach Father Cancer Prostate COPD (chronic obstructive pulmonary disease) Social History Smoking Status: Former smoker alcohol intake: never substance use type: does not use caffeine: No ROS Const Con (more content not included)... Normal [facility] Anion gap in Serum or Plasma Ordered By: Guilherme Butt on 01-23-2025 Anion gap [Moles/Vol] 11 mmol/L - [facility] BUN/creatinine ratioOrdered By: Guilherme Butt on 01-23-2025 Urea nitrogen/Creatinine [Mass ratio] 32.4 mg/mg High - [facility] Bilirubin directOrdered By: Guilherme Butt on 01-23-2025 Bilirubin.direct [Mass/Vol] 0.16 mg/dL 0.00-0.30 [facility] Comment on above: Hemolysis present, R esults could be affected. Bilirubin, totalOrdered By: Guilherme Butt on 01-23-2025 Bilirubin [Mass/Vol] 0.42 mg/dL 0.00-1.30 [facility] Calculated very low density lipoprotein (VLDL) cholesterol measurementOrdered By: Guilherme Butt on 01-23-2025 Calculated very low density lipoprotein (VLDL) cholesterol measurement 13 mg/dL 5-40 [facility] Carbon dioxide, total [Moles /volume] in Central venous bloodOrdered By: Guilherme Butt on 01-23-2025 CO2 [Moles/Vol] 25.2 mmol/L 21.0-32.0 [facility] Chloride assayOrdered By: Roselia Butt on 01-23-2025 Chloride [Moles/Vol] 104 mmol/L 98-108 [facility] Erythrocyte distribution wid th ratioOrdered By: felipa Butt on 01-23-2025 Erythrocyte distribution width (RBC) [Ratio] 12.7 % 11.6-14.6 [facility] Erythrocyte distribution wid th standard deviationOrdered By: Guilherme Butt on 01-23-2025 Erythrocyte distribution width (RBC) [Ratio] 44.1 fl High 35.1-43.9 [facility] Glomerular filtration rate ( GFR) estimation/1.73 sq m using serum, plasma, or whole bOrdered By: Guilherme Butt on 01-23-2025 GFR/1.73 sq M.predicted among non-blacks MDRD (S/P/Bld) [Vol rate/Area] 89 mL/min/{1.73_m2} >60 [facility] Comment on above: mL/min/1.73m2 CKD-EP I Creatinine Equation (2020) Hematocrit Auto (Bld) [Volum e fraction]Ordered By: Guilherme Butt on 01-23-2025 Hematocrit (Bld) [Volume fraction] 36.4 % Low 40-54 [facility] Hemoglobin A1c percentageOrd ered By: Guilherme Butt on 01-23-2025 HbA1c (Bld) [Mass fraction] 5.4 % <5.7 [facility] Comment on above: Normal < 5.7 % Predi abetic 5.7 - 6.4 % Diabetic >or= 6.5 % Please note range changes. Hemoglobin measurementOrdere d By: Guilherme Butt on 01-23-2025 Hemoglobin (Bld) [Mass/Vol] 12.6 g/dL Low 13.0-16.5 [facility] LDL calc ser/plasOrdered By: Guilherme Butt on 01-23-2025 Cholesterol in LDL [Mass/Vol] 92 mg/dL [facility] Comment on above: Drvroelxfc=129-979 m g/dL & Higher Spco=390 mg/dL or greaterFriedwald Equation for LDL-C Laboratory - Chemistry and C hemistry - challengeOrdered By: Guilherme Butt on 01-23-2025 AST [Catalytic activity/Vol] 20 U/L <38 [facility] Comment on above: Hemolysis present, R esults could be affected. MCV (mean corpuscular volume ) determinationOrdered By: Guilherme Butt on 01-23-2025 MCV (RBC) [Entitic vol] 94.5 fL High 80-94 [facility] Mean corpuscular hemoglobin (MCH) determinationOrdered By: Guilherme Butt on 01-23-2025 MCH (RBC) [Entitic mass] 32.7 pg High 27.0-32.0 [facility] Mean corpuscular hemoglobin concentration (MCHC) determinationOrdered By: Guilherme Butt on 01-23-2025 MCHC (RBC) [Mass/Vol] 34.6 g/dL 32-36 [facility] Mean platelet volume determi nationOrdered By: Guilherme Butt on 01-23-2025 Platelet mean volume (Bld) [Entitic vol] 9.4 fL 6.2-12.0 [facility] Platelet countOrdered By: Roselia Butt on 01-23-2025 Platelets (Bld) [#/Vol] 188 10*3/uL 150-450 [facility] Potassium measurement (mass/ volume)Ordered By: Guilherme Butt on 01-23-2025 Potassium (Unsp spec) [Mass/Vol] 4.5 mmol/L 3.3-5.1 [facility] Comment on above: Hemolysis present, R esults could be affected. RBC Auto (Bld) [#/Vol]Ordere d By: Guilherme Butt on 01-23-2025 RBC (Bld) [#/Vol] 3.85 10*6/uL Low 4.6-6.2 [facility] Screening total cholesterol/ high density lipoprotein (HDL) cholesterol ratioOrdered By: Guilherme Butt on 01-23-2025 Cholesterol.total/Choles terol in HDL [Mass ratio] 3.12 {ratio} [facility] Serum creatinine measurement (mass/volume)Ordered By: Guilherme Butt on 01-23-2025 Creatinine [Mass/Vol] 0.83 mg/dL 0.70-1.20 [facility] Serum globulin measurementOr dered By: Guilherme Butt on 01-23-2025 Globulin (S) [Mass/Vol] 2.2 g/dL 2.2-4.2 [facility] Serum glucose measurement (m ass/volume)Ordered By: Guilherme Butt on 01-23-2025 Glucose [Mass/Vol] 90 mg/dL 70-99 [facility] Serum or plasma alanine aly otransferase (ALT) measurementOrdered By: Guilherme Butt on 01-23-2025 ALT [Catalytic activity/Vol] U/L <47 [facility] Serum or plasma albumin farshad urement (mass/volume)Ordered By: Guilherme Butt on 01-23-2025 Albumin [Mass/Vol] 3.9 g/dL 3.4-4.8 [facility] Serum or plasma alkaline jean-claude sphatase measurementOrdered By: Guilherme Butt 01-23-2025 ALP [Catalytic activity/Vol] 112 U/L 40-129 [facility] Serum or plasma calcium farshad urement (mass/volume)Ordered By: Guilherme Butt on 01-23-2025 Calcium [Mass/Vol] 8.9 mg/dL 7.6-11.0 [facility] Serum or plasma cholesterol in HDL measurement (mass/volume)Ordered By: Guilherme Butt on 01-23-2025 Cholesterol in HDL [Mass/Vol] 50 mg/dL >40 [facility] Comment on above: National Cholesterol Education Program (NCEP) guidelines:<40 mg/dL: Low HDL-cholesterol (major risk factor for CHD)>= 60 mg/dL: High HDL-cholesterol (negative risk factor for CHD)HDL-cholesterol is affected by a number of factors, e.g. smoking, exercise, hormones, sex and age. Serum or plasma cholesterol measurement (mass/volume)Ordered By: Guilherme Butt on 01-23-2025 Cholesterol [Mass/Vol] 155 mg/dL <201 [facility] Comment on above: Cholesterol level, D esirable <200 mg/dLBorderline high cholesterol 200-239 mg/dLHigh cholesterol >=240 mg/dLRecommendations of the NCEP Adult Treatment Panel for the following risk-cutoff thresholds for the [place] population. Serum or plasma urea nitroge n measurement (mass/volume)Ordered By: Guilherme Butt on 01-23-2025 Urea nitrogen [Mass/Vol] 27 mg/dL High 4-19 [facility] Sodium levelOrdered By: Kelly Butt on 01-23-2025 Sodium [Moles/Vol] 140 mmol/L 133-145 [facility] T4 freeOrdered By: Guilherme Butt on 01-23-2025 Free T4 [Mass/Vol] 1.00 ng/dL 0.76-1.46 [facility] TSH DL <= 0.005 mIU/L QnOrde red By: Guilherme Butt on 01-23-2025 TSH Qn 0.974 uIU/mL 0.300-4.200 [facility] Total proteinOrdered By: Jamaal Butt on 01-23-2025 Protein [Mass/Vol] 6.1 g/dL 5.9-8.4 [facility] Triglycerides measurementOrd ered By: Guilherme Butt on 01-23-2025 Triglyceride [Mass/Vol] 65 mg/dL <199 [facility] Comment on above: The drugs N-Acetylcy steine and Metamizole may falsely depress this assay. Normal range: <150 mg/dLBorderline High: 150-199 mg/dLHigh: 200-499 mg/dLVery High: >500 mg/dL White blood cell (WBC) count Ordered By: Guilherme Butt on 01-23-2025 WBC (Bld) [#/Vol] 4.0 10*3/uL Low 4.4-11.0 [facility] Bilirubin Test strip Ql (U)O rdered By: Guilherme Butt on 12-23-2024 Bilirubin Ql (U) Negative Negative [facility] Ketones Test strip Ql (U)Ord ered By: Guilherme Butt on 12-23-2024 Ketones Ql (U) Negative Negative [facility] Microscopic analysis of urin e for red blood cells (RBC)Ordered By: Guilherme Butt on 12-23-2024 Microscopic analysis of urine for red blood cells (RBC) 0 SEEN /hpf 0-5 [facility] Mucus LM Ql (Urine sed)Order ed By: Guilherme Butt on 12-23-2024 Mucus Ql (Urine sed) 0 SEEN /hpf [facility] Nitrite Test strip Ql (U)Ord ered By: Guilherme Butt on 12-23-2024 Nitrite Ql (U) Negative Negative [facility] Protein Test strip Ql (U)Ord ered By: Guilherme Butt on 12-23-2024 Protein Ql (U) 15 mg/dl High Negative [facility] Squamous epithelial cells de tection in urine sediment by light microscopyOrdered By: Guilherme Butt on 12-23-2024 Epithelial cells.squamous LM Ql (Urine sed) 0 SEEN /hpf 0-5 [facility] Urine clarityOrdered By: Jamaal Butt on 12-23-2024 Clarity (U) Clear Clear [facility] Urine color determinationOrd ered By: Guilherme Butt on 12-23-2024 Color (U) Yellow Yellow [facility] Urine cultureOrdered By: Jamaal Butt on 12-23-2024 Bacteria identified Cx Nom (U) Positive Abnormal [facility] Urine glucose detectionOrder ed By: Guilherme Butt on 12-23-2024 Glucose Ql (U) Normal mg/dl Normal [facility] Urine leukocyte esterase det ection by dipstickOrdered By: Guilherme Butt on 12-23-2024 Leukocyte esterase Test strip Ql (U) 25 /ul High Negative [facility] Urine pHOrdered By: Juan Butt on 12-23-2024 pH (U) 7.0 [pH] 5.0 - 8.0 [facility] Urine sediment bacteria coun t by microscopy (number/high power field)Ordered By: Guilherme Butt on 12-23-2024 Bacteria LM.HPF (Urine sed) [#/Area] 0 /[HPF] None Seen [facility] Urine specific gravity measu rementOrdered By: Guilherme Butt on 12-23-2024 Specific gravity (U) [Rel density] 1.010 1.002-1.030 [facility] Urine urobilinogen measureme ntOrdered By: Guilherme Butt on 12-23-2024 Urobilinogen Ql (U) Normal mg/dl Normal [facility] White blood cell countOrdere d By: Guilherme Butt on 12-23-2024 White blood cell count 0-5 SEEN /hpf 0-5 [facility] Anion gap in Serum or Plasma Ordered By: Guilherme Butt on 12-19-2024 Anion gap [Moles/Vol] 9 mmol/L 5-15 [facility] BUN/creatinine ratioOrdered By: Guilherme Butt on 12-19-2024 Urea nitrogen/Creatinine [Mass ratio] 29.6 mg/mg High 10-20 [facility] Carbon dioxide, total [Moles /volume] in Central venous bloodOrdered By: Guilherme Butt on 12-19-2024 CO2 [Moles/Vol] 27.2 mmol/L 21.0-32.0 [facility] Chloride assayOrdered By: Roselia Butt on 12-19-2024 Chloride [Moles/Vol] 103 mmol/L 98-108 [facility] Erythrocyte distribution wid th ratioOrdered By: Guilherme Butt on 12-19-2024 Erythrocyte distribution width (RBC) [Ratio] 12.6 % 11.6-14.6 [facility] Erythrocyte distribution wid th standard deviationOrdered By: Guilherme Butt on 12-19-2024 Erythrocyte distribution width (RBC) [Ratio] 44.9 fl High 35.1-43.9 [facility] Glomerular filtration rate ( GFR) estimation/1.73 sq m using serum, plasma, or whole bOrdered By: Guilherme Butt on 12-19-2024 GFR/1.73 sq M.predicted among non-blacks MDRD (S/P/Bld) [Vol rate/Area] 78 mL/min/{1.73_m2} >60 [facility] Comment on above: mL/min/1.73m2 CKD-EP I Creatinine Equation (2020) Hematocrit Auto (Bld) [Volum e fraction]Ordered By: Guilherme Butt on 12-19-2024 Hematocrit (Bld) [Volume fraction] 39.3 % Low 40-54 [facility] Hemoglobin measurementOrdere d By: Guilherme Butt on 12-19-2024 Hemoglobin (Bld) [Mass/Vol] 13.1 g/dL 13.0-16.5 [facility] MCV (mean corpuscular volume ) determinationOrdered By: Guilherme Butt on 12-19-2024 MCV (RBC) [Entitic vol] 96.8 fL High 80-94 [facility] Mean corpuscular hemoglobin (MCH) determinationOrdered By: Guilherme Butt on 12-19-2024 MCH (RBC) [Entitic mass] 32.3 pg High 27.0-32.0 [facility] Mean corpuscular hemoglobin concentration (MCHC) determinationOrdered By: Guilherme Butt 12-19-2024 MCHC (RBC) [Mass/Vol] 33.3 g/dL 32-36 [facility] Mean platelet volume determi nationOrdered By: Guilherme Butt on 12-19-2024 Platelet mean volume (Bld) [Entitic vol] 9.0 fL 6.2-12.0 [facility] Platelet countOrdered By: Roselia Butt on 12-19-2024 Platelets (Bld) [#/Vol] 168 10*3/uL 150-450 [facility] Potassium measurement (mass/ volume)Ordered By: Guilherme Butt 12-19-2024 Potassium (Unsp spec) [Mass/Vol] 4.4 mmol/L 3.3-5.1 [facility] RBC Auto (Bld) [#/Vol]Ordere d By: Guilherme Butt on 12-19-2024 RBC (Bld) [#/Vol] 4.06 10*6/uL Low 4.6-6.2 [facility] Serum creatinine measurement (mass/volume)Ordered By: Roseliakieranalfredodmitri Branhammarianjessenia on 12-19-2024 Creatinine [Mass/Vol] 0.99 mg/dL 0.70-1.20 [facility] Serum glucose measurement (m ass/volume)Ordered By: kierandenverdmitri Butt on 12-19-2024 Glucose [Mass/Vol] 88 mg/dL 70-99 [facility] Serum or plasma calcium farshad urement (mass/volume)Ordered By: Roseliakieranalfredodmitri Branhammarianjessenia on 12-19-2024 Calcium [Mass/Vol] 9.2 mg/dL 7.6-11.0 [facility] Serum or plasma urea nitroge n measurement (mass/volume)Ordered By: Roseliafelipa Branhammarianjessenia on 12-19-2024 Urea nitrogen [Mass/Vol] 29 mg/dL High 4-19 [facility] Sodium levelOrdered By: [facility] anne Butt on 12-19-2024 Sodium [Moles/Vol] 139 mmol/L 133-145 [facility] White blood cell (WBC) count Ordered By: Roseliakieranalfredodmitri Branhammarianjessenia on 12-19-2024 WBC (Bld) [#/Vol] 4.7 10*3/uL 4.4-11.0 [facility] Echo Completeon 12-12-2024 [facility] [address] [place] [address] Echo Complete 12/12/24 1410 MR#: [id number] Acct: [id number] Name: IGOR HANSEN Rep #: [id number] : 1945 79 From: Mike Poe MD Attending Dr: Dr. Dwain Yen MD Status: REG CLI Ordering Dr: Dwain Yen MD Date: 12/12/24 Location: CV[facility] Sex: M C Admitted: Reason For Study [...] LVOT area: 3.1 cm2 FS: 21.7 % Ao root diam: 5.8 cm LAV(MOD-bp): 51.9 ml LVAd ap4: 29.3 cm2 LAV(MOD-bp) Indexed: 25.5 ml/m2 LVLd ap4: 8.2 cm LAV(MOD-sp2): 51.8 ml EDV(MOD-sp4): 88.1 ml LAV(MOD-sp4): 51.6 ml EDV(sp4-el): 88.4 ml LVAs ap4: 20.5 cm2 LVLs ap4: 7.2 cm ESV(MOD-sp4): 48.2 ml ESV(sp4-el): 49.2 ml EF(MOD-sp4): 45.3 % EF(sp4-el): 44.3 % SV(MOD-sp4): 39.9 ml SV(sp4-el): 39.2 ml Ao sinus diam: 5.4 cm SI(MOD-sp4): 19.6 ml/m2 Ao ST Junction: 4.5 cm LA A4 area: 18.4 cm2 LA dimension(2D): 4.0 cm RA A4 area: 12.0 cm2 Time Measurements MV dec time: 0.16 sec Doppler Measurements Calculations MV E max ju: 30.2 cm/sec Lat Peak E' Ju: 6.3 cm/sec Med Peak E' Ju: 3.3 cm/sec MV A max ju: 73.4 cm/sec E/E' lat: 4.8 E/E' med: 9.0 MV E/A: 0.41 MV V2 max: 67.2 cm/sec MV dec [...] 0.95 SNEHA(I,D): 2.9 cm2 SNEHA(V,D): 2.7 cm2 AI max ju: 503.8 cm/sec LV V1 max: 179.6 cm/sec SV(LVOT): 127.3 ml AI max P.6 mmHg LV V1 max P.9 mmHg LV V1 mean P.5 mmHg AI dec slope: 292.1 cm/sec2 LV V1 mean: 139.7 cm/sec AI P1/2t: 505.2 msec LV V1 VTI: 41.2 cm PA V2 max: 112.2 cm/sec TR max ju: 228.5 cm/sec PA V2 mean: 69.0 cm/sec TR max P.9 mmHg ECHO/Echo Complete Interpretation Summary Normal LV size. The left ventricular ejection fraction is 50 %. Stage 1 diastolic dysfunction. Bioprosthetic aortic valve. Severely dilated aortic root. Aortic root measures approximately 5.7 cm. Ordering Physician: Dwain Yen Referring Physician: Dwain Yen Performed By: Marbella Oropeza RCS 12/12/24 1649 Date Mike Poe MD CC: Dr. Dwain Yen MD; Dr. 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 [address] Echo Complete 12/12/24 1410 MR#: [id number] Acct: [id number] Name: IGOR HANSEN Rep #:[id number] : 1945 79 From: Mike Manuel Attending Dr: Dr. Dwain Yen MD Status: REG CLI Ordering Dr: Dwain Yen MD Date: Location: [facility] Sex: M C Admitted: Reason For Study [...] LVOT area: 3.1 cm2 FS: 21.7 % Ao root diam: 5.8 cm LAV(MOD-bp): 51.9 ml LVAd ap4: 29.3 cm2 LAV(MOD-bp) Indexed: 25.5 ml/m2 LVLd ap4: 8.2 cm LAV(MOD-sp2): 51.8 ml EDV(MOD-sp4): 88.1 ml LAV(MOD-sp4): 51.6 ml EDV(sp4-el): 88.4 ml LVAs ap4: 20.5 cm2 LVLs ap4: 7.2 cm ESV(MOD-sp4): 48.2 ml ESV(sp4-el): 49.2 ml EF(MOD-sp4): 45.3 % EF(sp4-el): 44.3 % SV(MOD-sp4): 39.9 ml SV(sp4-el): 39.2 ml Ao sinus diam: 5.4 cm SI(MOD-sp4): 19.6 ml/m2 Ao ST Junction: 4.5 cm LA A4 area: 18.4 cm2 LA dimension(2D): 4.0 cm RA A4 area: 12.0 cm2 Time Measurements MV dec time: 0.16 sec Doppler Measurements & Calculations MV E max ju: 30.2 cm/sec Lat Peak E' Ju: 6.3 cm/sec Med Peak E' Ju: 3.3 cm/sec MV A max ju: 73.4 cm/sec E/E' lat: 4.8 E/E' med: 9.0 MV E/A: 0.41 MV V2 max: 67.2 cm/sec MV dec [...] 0.95 SNEHA(I,D): 2.9 cm2 SNEHA(V,D): 2.7 cm2 AI max ju: 503.8 cm/sec LV V1 max: 179.6 cm/sec SV(LVOT): 127.3 ml AI max P.6 mmHg LV V1 max P.9 mmHg LV V1 mean P.5 mmHg AI dec slope: 292.1 cm/sec2 LV V1 mean: 139.7 cm/sec AI P1/2t: 505.2 msec LV V1 VTI: 41.2 cm PA V2 max: 112.2 cm/sec TR max ju: 228.5 cm/sec PA V2 mean: 69.0 cm/sec TR max P.9 mmHg ECHO/Echo Complete Interpretation Summary Normal LV size. The left ventricular ejection fraction is 50 %. Stage 1 diastolic dysfunction. Bioprosthetic aortic valve. Severely dilated aortic root. Aortic root measures approximately 5.7 cm. Ordering Physician: Dwain Yen Referring Physician: Dwain Yen Performed By: Marbella Oropeza RCS 12/12/24 1649 Date _ Mike Poe MD CC: Dr. Dwain Yen MD; Dr. 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: Signed [facility] Work Phone: Absolute lymphocyte countOrd ered By: Guilherme Butt on 11-21-2024 Lymphocytes Auto (Unsp spec) [#/Vol] 1.17 10*3/uL 0.83-4.51 [facility] Absolute neutrophil countOrd ered By: Guilherme Butt on 11-21-2024 Neutrophils (Bld) [#/Vol] 3.2 10*3/uL 2.0-7.7 [facility] Anion gap in Serum or Plasma Ordered By: Guilherme Butt on 11-21-2024 Anion gap [Moles/Vol] 11 mmol/L 5-15 [facility] Automated lymphocyte count a s percentage of total leukocytesOrdered By: Guilherme Butt on 11-21-2024 Lymphocytes/100 WBC Auto (Unsp spec) 23.5 % 19-41 [facility] BUN/creatinine ratioOrdered By: Guilherme Butt on 11-21-2024 Urea nitrogen/Creatinine [Mass ratio] 24.5 mg/mg High 10-20 [facility] Basophil percentageOrdered B y: Guilherme Branhammarianjessenia on 11-21-2024 Basophils/100 WBC (Bld) 0.6 % 0-1 [facility] Bilirubin, totalOrdered By: Guilherme Butt on 11-21-2024 Bilirubin [Mass/Vol] 0.38 mg/dL 0.00-1.30 [facility] Carbon dioxide, total [Moles /volume] in Central venous bloodOrdered By: Guilherme Butt on 11-21-2024 CO2 [Moles/Vol] 24.6 mmol/L 21.0-32.0 [facility] Chloride assayOrdered By: Roselia kierananne Butt on 11-21-2024 Chloride [Moles/Vol] 106 mmol/L 98-108 [facility] Eosinophil percentageOrdered By: Kellydenverdmitri Butt on 11-21-2024 Eosinophils/100 WBC (Bld) 2.2 % 0-5 [facility] Erythrocyte distribution wid th ratioOrdered By: kierandenverdmitri Butt on 11-21-2024 Erythrocyte distribution width (RBC) [Ratio] 12.9 % 11.6-14.6 [facility] Erythrocyte distribution wid th standard deviationOrdered By: Guilherme Butt on 11-21-2024 Erythrocyte distribution width (RBC) [Ratio] 45.9 fl High 35.1-43.9 [facility] Glomerular filtration rate ( GFR) estimation/1.73 sq m using serum, plasma, or whole bOrdered By: Guilherme Butt on 11-21-2024 GFR/1.73 sq M.predicted among non-blacks MDRD (S/P/Bld) [Vol rate/Area] 73 mL/min/{1.73_m2} >60 [facility] Comment on above: mL/min/1.73m2 CKD-EP I Creatinine Equation (2020) Hematocrit Auto (Bld) [Volum e fraction]Ordered By: Guilherme Butt on 11-21-2024 Hematocrit (Bld) [Volume fraction] 39.4 % Low 40-54 [facility] Hemoglobin measurementOrdere d By: Guilherme Butt on 11-21-2024 Hemoglobin (Bld) [Mass/Vol] 13.1 g/dL 13.0-16.5 [facility] Immature granulocytes/100 WB C Auto (Bld)Ordered By: Guilherme Butt on 11-21-2024 Immature granulocytes/100 WBC (Bld) 0.400 % 0.0-0.9 [facility] Comment on above: IG% - Immature Granu locytes (promyelocytes, myelocytes and metamyelocytes) > 1% indicates that a LEFT SHIFT is Present. Laboratory - Chemistry and C hemistry - challengeOrdered By: Guilherme Butt on 11-21-2024 AST [Catalytic activity/Vol] 19 U/L <38 [facility] MCV (mean corpuscular volume ) determinationOrdered By: felipa Butt on 11-21-2024 MCV (RBC) [Entitic vol] 97.5 fL High 80-94 [facility] Mean corpuscular hemoglobin (MCH) determinationOrdered By: felipa Butt on 11-21-2024 MCH (RBC) [Entitic mass] 32.4 pg High 27.0-32.0 [facility] Mean corpuscular hemoglobin concentration (MCHC) determinationOrdered By: Guilherme Butt on 11-21-2024 MCHC (RBC) [Mass/Vol] 33.2 g/dL 32-36 [facility] Mean platelet volume determi nationOrdered By: Guilherme Butt on 11-21-2024 Platelet mean volume (Bld) [Entitic vol] 9.5 fL 6.2-12.0 [facility] Monocyte percentageOrdered B y: Guilherme Butt on 11-21-2024 Monocytes/100 WBC (Bld) 8.0 % 0-10 [facility] Neutrophil percentageOrdered By: kierandenverdmitri Butt on 11-21-2024 Neutrophils/100 WBC (Bld) 65.3 % 47-70 [facility] Nucleated red blood cell per centageOrdered By: felipa Butt on 11-21-2024 Nucleated RBC/100 WBC (Bld) [Ratio] 0 % 0-5 [facility] Platelet countOrdered By: Roselia Butt on 11-21-2024 Platelets (Bld) [#/Vol] 185 10*3/uL 150-450 [facility] Potassium measurement (mass/ volume)Ordered By: Guilherme Butt on 11-21-2024 Potassium (Unsp spec) [Mass/Vol] 4.5 mmol/L 3.3-5.1 [facility] RBC Auto (Bld) [#/Vol]Ordere d By: Guilherme Butt on 11-21-2024 RBC (Bld) [#/Vol] 4.04 10*6/uL Low 4.6-6.2 [facility] Serum creatinine measurement (mass/volume)Ordered By: Guilherme Butt on 11-21-2024 Creatinine [Mass/Vol] 1.04 mg/dL 0.70-1.20 [facility] Serum globulin measurementOr dered By: Guilherme Butt on 11-21-2024 Globulin (S) [Mass/Vol] 2.4 g/dL 2.2-4.2 [facility] Serum glucose measurement (m ass/volume)Ordered By: Guilherme Butt on 11-21-2024 Glucose [Mass/Vol] 142 mg/dL High 70-99 [facility] Serum or plasma alanine aly otransferase (ALT) measurementOrdered By: Guilherme Butt on 11-21-2024 ALT [Catalytic activity/Vol] 8 U/L <47 [facility] Serum or plasma albumin farshad urement (mass/volume)Ordered By: Guilherme Butt on 11-21-2024 Albumin [Mass/Vol] 4.1 g/dL 3.4-4.8 [facility] Serum or plasma albumin/glob ulin mass ratioOrdered By: Guilherme Butt on 11-21-2024 Albumin/Globulin [Mass ratio] 1.8 {ratio} 0.9-2.4 [facility] Serum or plasma alkaline jean-claude sphatase measurementOrdered By: Guilherme Butt on 11-21-2024 ALP [Catalytic activity/Vol] 109 U/L 40-129 [facility] Serum or plasma calcium farshad urement (mass/volume)Ordered By: Guilherme Branhammarianjessenia on 11-21-2024 Calcium [Mass/Vol] 9.2 mg/dL 7.6-11.0 [facility] Serum or plasma urea nitroge n measurement (mass/volume)Ordered By: Guilherme Yonasmarianjessenia on 11-21-2024 Urea nitrogen [Mass/Vol] 26 mg/dL High 4-19 [facility] Sodium levelOrdered By: Kelly anne Filomena on 11-21-2024 Sodium [Moles/Vol] 141 mmol/L 133-145 [facility] T4 freeOrdered By: Guilherme Yonasmarianjessenia on 11-21-2024 Free T4 [Mass/Vol] 1.10 ng/dL 0.76-1.46 [facility] TSH DL <= 0.005 mIU/L QnOrde red By: Guilherme Yonasmarianjessenia on 11-21-2024 TSH Qn 3.090 uIU/mL 0.300-4.200 [facility] Total proteinOrdered By: Jamaal iyer Yonasmarianjessenia on 11-21-2024 Protein [Mass/Vol] 6.5 g/dL 5.9-8.4 [facility] White blood cell (WBC) count Ordered By: Kellyalfredodmitri Branhammarianjessenia on 11-21-2024 WBC (Bld) [#/Vol] 5.0 10*3/uL 4.4-11.0 [facility] Anion gap in Serum or Plasma Ordered By: Cecy Gray on 10-24-2024 Anion gap [Moles/Vol] 9 mmol/L 5-15 [facility] BUN/creatinine ratioOrdered By: Cecy Gray on 10-24-2024 Urea nitrogen/Creatinine [Mass ratio] 25.6 mg/mg High 10-20 [facility] Carbon dioxide, total [Moles /volume] in Central venous bloodOrdered By: Cecy Gray on 10-24-2024 CO2 [Moles/Vol] 29.3 mmol/L 21.0-32.0 [facility] Chloride assayOrdered By: Roderick Gray on 10-24-2024 Chloride [Moles/Vol] 104 mmol/L 98-108 [facility] Erythrocyte distribution wid th ratioOrdered By: Cecy Gray on 10-24-2024 Erythrocyte distribution width (RBC) [Ratio] 12.8 % 11.6-14.6 [facility] Erythrocyte distribution wid th standard deviationOrdered By: Cecy Gray on 10-24-2024 Erythrocyte distribution width (RBC) [Ratio] 45.1 fl High 35.1-43.9 [facility] Glomerular filtration rate ( GFR) estimation/1.73 sq m using serum, plasma, or whole bOrdered By: Cecy Gray on 10-24-2024 GFR/1.73 sq M.predicted among non-blacks MDRD (S/P/Bld) [Vol rate/Area] 84 mL/min/{1.73_m2} >60 [facility] Comment on above: mL/min/1.73m2 CKD-EP I Creatinine Equation (2020) Hematocrit Auto (Bld) [Volum e fraction]Ordered By: Cecy Gray on 10-24-2024 Hematocrit (Bld) [Volume fraction] 39.4 % Low 40-54 [facility] Hemoglobin measurementOrdere d By: Cecy Gray on 10-24-2024 Hemoglobin (Bld) [Mass/Vol] 13.2 g/dL 13.0-16.5 [facility] MCV (mean corpuscular volume ) determinationOrdered By: Cecy Gray 10-24-2024 MCV (RBC) [Entitic vol] 96.3 fL High 80-94 [facility] Mean corpuscular hemoglobin (MCH) determinationOrdered By: Cecy Gray 10-24-2024 MCH (RBC) [Entitic mass] 32.3 pg High 27.0-32.0 [facility] Mean corpuscular hemoglobin concentration (MCHC) determinationOrdered By: Cecy Gray 10-24-2024 MCHC (RBC) [Mass/Vol] 33.5 g/dL 32-36 [facility] Mean platelet volume determi nationOrdered By: Cecy Gray 10-24-2024 Platelet mean volume (Bld) [Entitic vol] 9.1 fL 6.2-12.0 [facility] Platelet countOrdered By: Roderick Gray on 10-24-2024 Platelets (Bld) [#/Vol] 200 10*3/uL 150-450 [facility] Potassium measurement (mass/ volume)Ordered By: Cecy Gray on 10-24-2024 Potassium (Unsp spec) [Mass/Vol] 4.5 mmol/L 3.3-5.1 [facility] RBC Auto (Bld) [#/Vol]Ordere d By: Cecy Gray on 10-24-2024 RBC (Bld) [#/Vol] 4.09 10*6/uL Low 4.6-6.2 [facility] Serum creatinine measurement (mass/volume)Ordered By: Cecy Gray on 10-24-2024 Creatinine [Mass/Vol] 0.93 mg/dL 0.70-1.20 [facility] Serum glucose measurement (m ass/volume)Ordered By: Cecy Gray on 10-24-2024 Glucose [Mass/Vol] 85 mg/dL 70-99 [facility] Serum or plasma calcium farshad urement (mass/volume)Ordered By: Cecy Gray on 10-24-2024 Calcium [Mass/Vol] 9.3 mg/dL 7.6-11.0 [facility] Serum or plasma urea nitroge n measurement (mass/volume)Ordered By: Cecy Gray on 10-24-2024 Urea nitrogen [Mass/Vol] 24 mg/dL High 4-19 [facility] Sodium levelOrdered By: Mayi Gray on 10-24-2024 Sodium [Moles/Vol] 142 mmol/L 133-145 [facility] White blood cell (WBC) count Ordered By: Cecy Gary on 10-24-2024 WBC (Bld) [#/Vol] 4.7 10*3/uL 4.4-11.0 [facility] Cardiology Visit Reporton Cardiology Visit Report [facility] [address] [place], [place] [address]jessenia. [address] [place] [address] OFFICE VISIT Date of Service: 10/08/24 MR#: [id number] Acct: [id number] Name: IGOR HANSEN Rep #: [id number] : 1945 Provider: Dr. Dwain Yen MD Age/Sex: 79/M Location[place] [facility] [place] Status: Signed HPI HPI History of Present [...] NIBP Intake Visit Reasons: OVER DUE FU [employer] Required: No Accompanied by: Self Is patient in pain?: No Allergies No Known Allergies Allergy (Verified 10/08/24 14:27) Medications ???Medication ???Instructions ???Recorded ???Confirmed ???Type acetaminophen 325 mg tablet 650 mg PO TID 09/04/22 10/08/24 Hi story aluminum-mag hydroxide-simethicon e 15 ml PO DAILY PRN indigestion 0 09/04/22 10/08/24 History 400 mg-400 mg-40 mg/5 mL oral susp (Mylanta Maximum Strength) aspirin 81 mg tablet,delayed 81 mg PO DAILY #30 tabs 09/04/22 0 10/08/24 Rx release (Adult Low Dose Aspirin) bisacodyl 10 mg rectal suppository 10 mg MN DAILY PRN constipation 09/04/22 10/08/24 History carbidopa [...] stress test Hypertension Kidney disease [facility] in [place] [facility] Parkinson disease Parkinson's disease Syncope Valvular heart [...] Neuro: Neg (more content not included)... Normal [facility] Anion gap in Serum or Plasma Ordered By: Guilherme Butt on 09-19-2024 Anion gap [Moles/Vol] 9 mmol/L 5-15 [facility] BUN/creatinine ratioOrdered By: Guilherme Butt on 09-19-2024 Urea nitrogen/Creatinine [Mass ratio] 26.1 mg/mg High 10-20 [facility] Carbon dioxide, total [Moles /volume] in Central venous bloodOrdered By: Guilherme Butt on 09-19-2024 CO2 [Moles/Vol] 28.7 mmol/L 21.0-32.0 [facility] Chloride assayOrdered By: Roselia Butt on 09-19-2024 Chloride [Moles/Vol] 103 mmol/L 98-108 [facility] Erythrocyte distribution wid th ratioOrdered By: Guilherme Butt on 09-19-2024 Erythrocyte distribution width (RBC) [Ratio] 12.7 % 11.6-14.6 [facility] Erythrocyte distribution wid th standard deviationOrdered By: Guilherme Butt on 09-19-2024 Erythrocyte distribution width (RBC) [Ratio] 44.8 fl High 35.1-43.9 [facility] Glomerular filtration rate ( GFR) estimation/1.73 sq m using serum, plasma, or whole bOrdered By: Guilherme Butt on 09-19-2024 GFR/1.73 sq M.predicted among non-blacks MDRD (S/P/Bld) [Vol rate/Area] 87 mL/min/{1.73_m2} >60 [facility] Comment on above: mL/min/1.73m2 CKD-EP I Creatinine Equation (2020) Hematocrit Auto (Bld) [Volum e fraction]Ordered By: Guilherme Butt on 09-19-2024 Hematocrit (Bld) [Volume fraction] 39.4 % Low 40-54 [facility] Hemoglobin measurementOrdere d By: Guilherme Butt on 09-19-2024 Hemoglobin (Bld) [Mass/Vol] 13.2 g/dL 13.0-16.5 [facility] MCV (mean corpuscular volume ) determinationOrdered By: Guilherme Butt on 09-19-2024 MCV (RBC) [Entitic vol] 96.3 fL High 80-94 [facility] Mean corpuscular hemoglobin (MCH) determinationOrdered By: Guilherme Butt on 09-19-2024 MCH (RBC) [Entitic mass] 32.3 pg High 27.0-32.0 [facility] Mean corpuscular hemoglobin concentration (MCHC) determinationOrdered By: Guilherme Butt on 09-19-2024 MCHC (RBC) [Mass/Vol] 33.5 g/dL 32-36 [facility] Mean platelet volume determi nationOrdered By: Guilherme Butt on 09-19-2024 Platelet mean volume (Bld) [Entitic vol] 9.0 fL 6.2-12.0 [facility] Platelet countOrdered By: Roselia Butt on 09-19-2024 Platelets (Bld) [#/Vol] 178 10*3/uL 150-450 [facility] Potassium measurement (mass/ volume)Ordered By: Guilherme Butt on 09-19-2024 Potassium (Unsp spec) [Mass/Vol] 4.6 mmol/L 3.3-5.1 [facility] RBC Auto (Bld) [#/Vol]Ordere d By: Guilherme Butt on 09-19-2024 RBC (Bld) [#/Vol] 4.09 10*6/uL Low 4.6-6.2 [facility] Serum creatinine measurement (mass/volume)Ordered By: Guilherme Butt on 09-19-2024 Creatinine [Mass/Vol] 0.89 mg/dL 0.70-1.20 [facility] Serum glucose measurement (m ass/volume)Ordered By: Guilherme Butt on 09-19-2024 Glucose [Mass/Vol] 86 mg/dL 70-99 [facility] Serum or plasma calcium farshad urement (mass/volume)Ordered By: Guilherme Butt on 09-19-2024 Calcium [Mass/Vol] 9.1 mg/dL 7.6-11.0 [facility] Serum or plasma urea nitroge n measurement (mass/volume)Ordered By: Guilherme Butt on 09-19-2024 Urea nitrogen [Mass/Vol] 23 mg/dL High 4-19 [facility] Sodium levelOrdered By: Kelly Butt on 09-19-2024 Sodium [Moles/Vol] 141 mmol/L 133-145 [facility] White blood cell (WBC) count Ordered By: Guilherme Butt on 09-19-2024 WBC (Bld) [#/Vol] 4.1 10*3/uL Low 4.4-11.0 [facility] Anion gap in Serum or Plasma Ordered By: Cecy Gray on 08-22-2024 Anion gap [Moles/Vol] 10 mmol/L 5-15 [facility] BUN/creatinine ratioOrdered By: Cecy Gray on 08-22-2024 Urea nitrogen/Creatinine [Mass ratio] 24.8 mg/mg High 10-20 [facility] Carbon dioxide, total [Moles /volume] in Central venous bloodOrdered By: Cecy Gray on 08-22-2024 CO2 [Moles/Vol] 26.8 mmol/L 21.0-32.0 [facility] Chloride assayOrdered By: Roderick Gray on 08-22-2024 Chloride [Moles/Vol] 103 mmol/L 98-108 [facility] Erythrocyte distribution wid th ratioOrdered By: Cecy Gray on 08-22-2024 Erythrocyte distribution width (RBC) [Ratio] 12.6 % 11.6-14.6 [facility] Erythrocyte distribution wid th standard deviationOrdered By: Cecy Gray on 08-22-2024 Erythrocyte distribution width (RBC) [Ratio] 44.4 fl High 35.1-43.9 [facility] Glomerular filtration rate ( GFR) estimation/1.73 sq m using serum, plasma, or whole bOrdered By: Cecy Gray on 08-22-2024 GFR/1.73 sq M.predicted among non-blacks MDRD (S/P/Bld) [Vol rate/Area] 74 mL/min/{1.73_m2} >60 [facility] Comment on above: mL/min/1.73m2 CKD-EP I Creatinine Equation (2020) Hematocrit Auto (Bld) [Volum e fraction]Ordered By: Cecy Gray on 08-22-2024 Hematocrit (Bld) [Volume fraction] 38.2 % Low 40-54 [facility] Hemoglobin measurementOrdere d By: Cecy Gray on 08-22-2024 Hemoglobin (Bld) [Mass/Vol] 13.0 g/dL 13.0-16.5 [facility] MCV (mean corpuscular volume ) determinationOrdered By: Cecy Gray on 08-22-2024 MCV (RBC) [Entitic vol] 95.5 fL High 80-94 [facility] Mean corpuscular hemoglobin (MCH) determinationOrdered By: Cecy Gray on 08-22-2024 MCH (RBC) [Entitic mass] 32.5 pg High 27.0-32.0 [facility] Mean corpuscular hemoglobin concentration (MCHC) determinationOrdered By: Cecy Gray 08-22-2024 MCHC (RBC) [Mass/Vol] 34.0 g/dL 32-36 [facility] Mean platelet volume determi nationOrdered By: Cecy Gray on 08-22-2024 Platelet mean volume (Bld) [Entitic vol] 8.9 fL 6.2-12.0 [facility] Platelet countOrdered By: Roderick Gray on 08-22-2024 Platelets (Bld) [#/Vol] 169 10*3/uL 150-450 [facility] Potassium measurement (mass/ volume)Ordered By: Cecy Gray on 08-22-2024 Potassium (Unsp spec) [Mass/Vol] 4.5 mmol/L 3.3-5.1 [facility] RBC Auto (Bld) [#/Vol]Ordere d By: Cecy Gray on 08-22-2024 RBC (Bld) [#/Vol] 4.00 10*6/uL Low 4.6-6.2 [facility] Serum creatinine measurement (mass/volume)Ordered By: Cecy Gray on 08-22-2024 Creatinine [Mass/Vol] 1.03 mg/dL 0.70-1.20 [facility] Serum glucose measurement (m ass/volume)Ordered By: Cecy Gray on 08-22-2024 Glucose [Mass/Vol] 83 mg/dL 70-99 [facility] Serum or plasma calcium farshad urement (mass/volume)Ordered By: Cecy Gray on 08-22-2024 Calcium [Mass/Vol] 9.0 mg/dL 7.6-11.0 [facility] Serum or plasma urea nitroge n measurement (mass/volume)Ordered By: Cecy Gray on 08-22-2024 Urea nitrogen [Mass/Vol] 26 mg/dL High 4-19 [facility] Sodium levelOrdered By: Mayi Gray on 08-22-2024 Sodium [Moles/Vol] 140 mmol/L 133-145 [facility] White blood cell (WBC) count Ordered By: Cecy Gray on 08-22-2024 WBC (Bld) [#/Vol] 4.0 10*3/uL Low 4.4-11.0 [facility] Anion gap in Serum or Plasma Ordered By: Guilherme Butt on 07-25-2024 Anion gap [Moles/Vol] 10 mmol/L 5-15 [facility] BUN/creatinine ratioOrdered By: Guilherme Butt on 07-25-2024 Urea nitrogen/Creatinine [Mass ratio] 28.4 mg/mg High 10-20 [facility] Carbon dioxide, total [Moles /volume] in Central venous bloodOrdered By: Guilherme Butt on 07-25-2024 CO2 [Moles/Vol] 26.7 mmol/L 21.0-32.0 [facility] Chloride assayOrdered By: Roselia Butt on 07-25-2024 Chloride [Moles/Vol] 105 mmol/L 98-108 [facility] Erythrocyte distribution wid th (RBC) [Ratio]Ordered By: Guilherme Butt on 07-25-2024 Erythrocyte distribution width (RBC) [Entitic vol] 44.6 fL High 35.1-43.9 [facility] Erythrocyte distribution wid th ratioOrdered By: Guilherme Butt on 07-25-2024 Erythrocyte distribution width (RBC) [Ratio] 12.8 % 11.6-14.6 [facility] Erythrocyte distribution wid th standard deviationOrdered By: Guilherme Butt on 07-25-2024 Erythrocyte distribution width (RBC) [Ratio] 44.6 fl High 35.1-43.9 [facility] GFR/1.73 sq M.predicted jane g non-blacks MDRD (S/P/Bld) [Vol rate/Area]Ordered By: Guilherme Butt on 07-25-2024 Estimated GFR (MDRD) Non-Af Amer 85 >60 [facility] Comment on above: mL/min/1.73m2 CKD-EP I Creatinine Equation (2020) Glomerular filtration rate ( GFR) estimation/1.73 sq m using serum, plasma, or whole bOrdered By: Guilherme Butt on 07-25-2024 GFR/1.73 sq M.predicted among non-blacks MDRD (S/P/Bld) [Vol rate/Area] 85 mL/min/{1.73_m2} >60 [facility] Comment on above: mL/min/1.73m2 CKD-EP I Creatinine Equation (2020) Hematocrit Auto (Bld) [Volum e fraction]Ordered By: Guilherme Butt on 07-25-2024 Hematocrit (Bld) [Volume fraction] 38.4 % Low 40-54 [facility] Hemoglobin measurementOrdere d By: Guilherme Butt on 07-25-2024 Hemoglobin (Bld) [Mass/Vol] 13.1 g/dL 13.0-16.5 [facility] MCV (mean corpuscular volume ) determinationOrdered By: Guilherme Butt 07-25-2024 MCV (RBC) [Entitic vol] 94.8 fL High 80-94 [facility] Mean corpuscular hemoglobin (MCH) determinationOrdered By: Guilherme Butt on 07-25-2024 MCH (RBC) [Entitic mass] 32.3 pg High 27.0-32.0 [facility] Mean corpuscular hemoglobin concentration (MCHC) determinationOrdered By: Guilherme Butt on 07-25-2024 MCHC (RBC) [Mass/Vol] 34.1 g/dL 32-36 [facility] Mean platelet volume determi nationOrdered By: Guilherme Butt on 07-25-2024 Platelet mean volume (Bld) [Entitic vol] 9.1 fL 6.2-12.0 [facility] Platelet countOrdered By: Roselia Butt on 07-25-2024 Platelets (Bld) [#/Vol] 174 10*3/uL 150-450 [facility] Potassium (Unsp spec) [Mass/ Vol]Ordered By: Guilherme Butt on 07-25-2024 Potassium [Moles/Vol] 4.5 mmol/L 3.3-5.1 [facility] Potassium measurement (mass/ volume)Ordered By: Guilherme Butt on 07-25-2024 Potassium (Unsp spec) [Mass/Vol] 4.5 mmol/L 3.3-5.1 [facility] RBC Auto (Bld) [#/Vol]Ordere d By: Guilherme Butt on 07-25-2024 RBC (Bld) [#/Vol] 4.05 10*6/uL Low 4.6-6.2 [facility] Serum creatinine measurement (mass/volume)Ordered By: Guilherme Butt on 07-25-2024 Creatinine [Mass/Vol] 0.92 mg/dL 0.70-1.20 [facility] Serum glucose measurement (m ass/volume)Ordered By: Guilherme Butt on 07-25-2024 Glucose [Mass/Vol] 93 mg/dL 70-99 [facility] Serum or plasma calcium farshad urement (mass/volume)Ordered By: Guilherme Butt on 07-25-2024 Calcium [Mass/Vol] 9.2 mg/dL 7.6-11.0 [facility] Serum or plasma urea nitroge n measurement (mass/volume)Ordered By: Guilherme Butt on 07-25-2024 Urea nitrogen [Mass/Vol] 26 mg/dL High 4-19 [facility] Sodium levelOrdered By: Kelly Butt on 07-25-2024 Sodium [Moles/Vol] 141 mmol/L 133-145 [facility] White blood cell (WBC) count Ordered By: Guilherme Butt on 07-25-2024 WBC (Bld) [#/Vol] 4.5 10*3/uL 4.4-11.0 [facility] Blood urea nitrogen (BUN)/cr eatinine ratioOrdered By: Guilherme Butt on 06-27-2024 Urea nitrogen/Creatinine [Mass ratio] 31.6 mg/mg High 10-20 [facility] Carbon dioxide measurementOr dered By: Guilherme Butt on 06-27-2024 CO2 [Moles/Vol] 28.0 mmol/L 21.0-32.0 [facility] Chloride measurementOrdered By: Guilherme Butt on 06-27-2024 Chloride [Moles/Vol] 107 mmol/L 98-107 [facility] Erythrocyte distribution wid th (RBC) [Ratio]Ordered By: Guilherme Butt on 06-27-2024 Erythrocyte distribution width (RBC) [Entitic vol] 43.9 fL 35.1-43.9 [facility] Erythrocyte distribution wid th ratioOrdered By: Guilherme Butt on 06-27-2024 Erythrocyte distribution width (RBC) [Ratio] 12.6 % 11.6-14.6 [facility] Erythrocyte distribution wid th standard deviationOrdered By: Guilherme Butt on 06-27-2024 Erythrocyte distribution width (RBC) [Ratio] 43.9 fl 35.1-43.9 [facility] Estimated glomerular filtrat ion rate (GFR) AmericanOrdered By: Guilherme Butt on 06-27-2024 Estimated GFR (MDRD) Amer 99 mL/min >60 [facility] Comment on above: GFR Calc Glomerular filtration rate ( GFR) estimationOrdered By: Guilherme Butt on 06-27-2024 Estimated GFR (MDRD) Non-Af Amer 81 mL/min >60 [facility] Comment on above: Non- GFR Calc GFR/1.73 sq M.predicted among non-blacks MDRD (S/P/Bld) [Vol rate/Area] 81 mL/min/{1.73_m2} >60 [facility] Comment on above: Non- GFR Calc Glucose measurementOrdered B y: Guilherme Butt on 06-27-2024 Glucose [Mass/Vol] 88 mg/dL 74-106 [facility] Hematocrit Auto (Bld) [Volum e fraction]Ordered By: Guilherme Butt on 06-27-2024 Hematocrit (Bld) [Volume fraction] 37.5 % Low 40-54 [facility] Hemoglobin measurementOrdere d By: Guilherme Butt on 06-27-2024 Hemoglobin (Bld) [Mass/Vol] 12.7 g/dL Low 13.0-16.5 [facility] MCV (mean corpuscular volume ) determinationOrdered By: Guilherme Butt on 06-27-2024 MCV (RBC) [Entitic vol] 94.7 fL High 80-94 [facility] Mean corpuscular hemoglobin (MCH) determinationOrdered By: Guilherme Butt on 06-27-2024 MCH (RBC) [Entitic mass] 32.1 pg High 27.0-32.0 [facility] Mean corpuscular hemoglobin concentration (MCHC) determinationOrdered By: Guilherme Butt on 06-27-2024 MCHC (RBC) [Mass/Vol] 33.9 g/dL 32-36 [facility] Mean platelet volume determi nationOrdered By: Guilherme Butt on 06-27-2024 Platelet mean volume (Bld) [Entitic vol] 9.1 fL 6.2-12.0 [facility] Platelet countOrdered By: Roselia Butt on 06-27-2024 Platelets (Bld) [#/Vol] 173 10*3/uL 150-450 [facility] Potassium measurementOrdered By: Guilherme Butt on 06-27-2024 Potassium [Moles/Vol] 4.1 mmol/L 3.5-5.1 [facility] RBC Auto (Bld) [#/Vol]Ordere d By: Guilherme Butt on 06-27-2024 RBC (Bld) [#/Vol] 3.96 10*6/uL Low 4.6-6.2 [facility] Serum anion gap measurementO rdered By: Guilherme Butt on 06-27-2024 Anion gap [Moles/Vol] 6 mmol/L 5-15 [facility] Serum or plasma calcium farshad urement (mass/volume)Ordered By: Guilherme Butt on 06-27-2024 Calcium [Mass/Vol] 9.0 mg/dL 8.5-10.1 [facility] Serum or plasma creatinine m easurement (mass/volume)Ordered By: Guilherme Butt on 06-27-2024 Creatinine [Mass/Vol] 0.95 mg/dL 0.70-1.30 [facility] Comment on above: The validity of the calculated GFR & GFRAA in patients over 70 years has not been determined. Clinical correlation is essential. Serum or plasma urea nitroge n measurement (mass/volume)Ordered By: Guilherme Butt on 06-27-2024 Urea nitrogen [Mass/Vol] 30 mg/dL High 7-18 [facility] Sodium levelOrdered By: Kelly Butt on 06-27-2024 Sodium [Moles/Vol] 141 mmol/L 136-145 [facility] White blood cell (WBC) count Ordered By: Guilherme Butt on 06-27-2024 WBC (Bld) [#/Vol] 4.2 10*3/uL Low 4.4-11.0 [facility] Blood urea nitrogen (BUN)/cr eatinine ratioOrdered By: Guilherme Butt on 05-23-2024 Urea nitrogen/Creatinine [Mass ratio] 27.9 mg/mg High 10-20 [facility] Carbon dioxide measurementOr dered By: Guilherme Butt on 05-23-2024 CO2 [Moles/Vol] 32.0 mmol/L 21.0-32.0 [facility] Chloride measurementOrdered By: Guilherme Butt on 05-23-2024 Chloride [Moles/Vol] 105 mmol/L 98-107 [facility] Erythrocyte distribution wid th (RBC) [Ratio]Ordered By: Guilherme Butt on 05-23-2024 Erythrocyte distribution width (RBC) [Entitic vol] 44.6 fL High 35.1-43.9 [facility] Erythrocyte distribution wid th ratioOrdered By: Guilherme Butt on 05-23-2024 Erythrocyte distribution width (RBC) [Ratio] 12.7 % 11.6-14.6 [facility] Erythrocyte distribution wid th standard deviationOrdered By: Guilherme Butt on 05-23-2024 Erythrocyte distribution width (RBC) [Ratio] 44.6 fl High 35.1-43.9 [facility] Estimated glomerular filtrat ion rate (GFR) AmericanOrdered By: Guilherme Butt on 05-23-2024 Estimated GFR (MDRD) Amer 101 mL/min >60 [facility] Comment on above: GFR Calc Glomerular filtration rate ( GFR) estimationOrdered By: Guilherme Butt on 05-23-2024 Estimated GFR (MDRD) Non-Af Amer 83 mL/min >60 [facility] Comment on above: Non- GFR Calc GFR/1.73 sq M.predicted among non-blacks MDRD (S/P/Bld) [Vol rate/Area] 83 mL/min/{1.73_m2} >60 [facility] Comment on above: Non- GFR Calc Glucose measurementOrdered B y: Guilherme Butt on 05-23-2024 Glucose [Mass/Vol] 90 mg/dL 74-106 [facility] Hematocrit Auto (Bld) [Volum e fraction]Ordered By: Guilherme Butt on 05-23-2024 Hematocrit (Bld) [Volume fraction] 40.6 % 40-54 [facility] Hemoglobin measurementOrdere d By: Guilherme Butt on 05-23-2024 Hemoglobin (Bld) [Mass/Vol] 13.4 g/dL 13.0-16.5 [facility] MCV (mean corpuscular volume ) determinationOrdered By: Guilherme Butt on 05-23-2024 MCV (RBC) [Entitic vol] 95.8 fL High 80-94 [facility] Mean corpuscular hemoglobin (MCH) determinationOrdered By: Guilherme Butt on 05-23-2024 MCH (RBC) [Entitic mass] 31.6 pg 27.0-32.0 [facility] Mean corpuscular hemoglobin concentration (MCHC) determinationOrdered By: Guilherme Butt on 05-23-2024 MCHC (RBC) [Mass/Vol] 33.0 g/dL 32-36 [facility] Mean platelet volume determi nationOrdered By: Guilherme Butt on 05-23-2024 Platelet mean volume (Bld) [Entitic vol] 9.3 fL 6.2-12.0 [facility] Platelet countOrdered By: Roselia Butt on 05-23-2024 Platelets (Bld) [#/Vol] 181 10*3/uL 150-450 [facility] Potassium measurementOrdered By: Guilherme Butt on 05-23-2024 Potassium [Moles/Vol] 4.4 mmol/L 3.5-5.1 [facility] RBC Auto (Bld) [#/Vol]Ordere d By: Guilherme Butt on 05-23-2024 RBC (Bld) [#/Vol] 4.24 10*6/uL Low 4.6-6.2 [facility] Serum anion gap measurementO rdered By: Guilherme Butt on 05-23-2024 Anion gap [Moles/Vol] 2 mmol/L Low 5-15 [facility] Serum or plasma calcium farshad urement (mass/volume)Ordered By: Guilherme Butt on 05-23-2024 Calcium [Mass/Vol] 9.2 mg/dL 8.5-10.1 [facility] Serum or plasma creatinine m easurement (mass/volume)Ordered By: Guilherme Butt on 05-23-2024 Creatinine [Mass/Vol] 0.93 mg/dL 0.70-1.30 [facility] Comment on above: The validity of the calculated GFR & GFRAA in patients over 70 years has not been determined. Clinical correlation is essential. Serum or plasma urea nitroge n measurement (mass/volume)Ordered By: Guilherme Butt on 05-23-2024 Urea nitrogen [Mass/Vol] 26 mg/dL High 7-18 [facility] Sodium levelOrdered By: Kelly Butt on 05-23-2024 Sodium [Moles/Vol] 138 mmol/L 136-145 [facility] White blood cell (WBC) count Ordered By: Guilherme Butt on 05-23-2024 WBC (Bld) [#/Vol] 4.7 10*3/uL 4.4-11.0 [facility] Blood urea nitrogen (BUN)/cr eatinine ratioOrdered By: Guilherme Butt on 04-25-2024 Urea nitrogen/Creatinine [Mass ratio] 28.1 mg/mg High 10-20 [facility] Carbon dioxide measurementOr dered By: Guilherme Butt on 04-25-2024 CO2 [Moles/Vol] 31.0 mmol/L 21.0-32.0 [facility] Chloride measurementOrdered By: Guilherme Butt on 04-25-2024 Chloride [Moles/Vol] 104 mmol/L 98-107 [facility] Erythrocyte distribution wid th (RBC) [Ratio]Ordered By: Guilherme Butt on 04-25-2024 Erythrocyte distribution width (RBC) [Entitic vol] 45.0 fL High 35.1-43.9 [facility] Erythrocyte distribution wid th ratioOrdered By: Guilherme Butt on 04-25-2024 Erythrocyte distribution width (RBC) [Ratio] 12.8 % 11.6-14.6 [facility] Estimated glomerular filtrat ion rate (GFR) AmericanOrdered By: Guilherme Butt on 04-25-2024 Estimated GFR (MDRD) Amer 93 mL/min >60 [facility] Comment on above: GFR Calc Glomerular filtration rate ( GFR) estimationOrdered By: Guilherme Butt on 04-25-2024 Estimated GFR (MDRD) Non-Af Amer 77 mL/min >60 [facility] Comment on above: Non- GFR Calc Glucose measurementOrdered B y: Guilherme Butt on 04-25-2024 Glucose [Mass/Vol] 125 mg/dL High 74-106 [facility] Comment on above: Fasting Glucose resu lt from 100 to 125 mg/dL suggests IMPAIRED HOMEOSTASIS per A.D.A. criteria. Hematocrit Auto (Bld) [Volum e fraction]Ordered By: Guilherme Butt on 04-25-2024 Hematocrit (Bld) [Volume fraction] 39.0 % Low 40-54 [facility] Hemoglobin measurementOrdere d By: Guilherme Butt on 04-25-2024 Hemoglobin (Bld) [Mass/Vol] 12.8 g/dL Low 13.0-16.5 [facility] MCV (mean corpuscular volume ) determinationOrdered By: Guilherme Butt on 04-25-2024 MCV (RBC) [Entitic vol] 95.8 fL High 80-94 [facility] Mean corpuscular hemoglobin (MCH) determinationOrdered By: Guilherme Butt on 04-25-2024 MCH (RBC) [Entitic mass] 31.4 pg 27.0-32.0 [facility] Mean corpuscular hemoglobin concentration (MCHC) determinationOrdered By: Guilherme Butt on 04-25-2024 MCHC (RBC) [Mass/Vol] 32.8 g/dL 32-36 [facility] Mean platelet volume determi nationOrdered By: Guilherme Butt on 04-25-2024 Platelet mean volume (Bld) [Entitic vol] 9.2 fL 6.2-12.0 [facility] Platelet countOrdered By: Roselia Butt on 04-25-2024 Platelets (Bld) [#/Vol] 176 10*3/uL 150-450 [facility] Potassium measurementOrdered By: Guilherme Butt on 04-25-2024 Potassium [Moles/Vol] 3.9 mmol/L 3.5-5.1 [facility] RBC Auto (Bld) [#/Vol]Ordere d By: Guilherme Yonasjack on 04-25-2024 RBC (Bld) [#/Vol] 4.07 10*6/uL Low 4.6-6.2 [facility] Serum anion gap measurementO rdered By: Roseliakierananne Yonasmarianjessenia on 04-25-2024 Anion gap [Moles/Vol] 4 mmol/L Low 5-15 [facility] Serum or plasma calcium farshad urement (mass/volume)Ordered By: Guihlerme Butt on 04-25-2024 Calcium [Mass/Vol] 9.0 mg/dL 8.5-10.1 [facility] Serum or plasma creatinine m easurement (mass/volume)Ordered By: Guilherme Butt on 04-25-2024 Creatinine [Mass/Vol] 1.00 mg/dL 0.70-1.30 [facility] Comment on above: The validity of the calculated GFR & GFRAA in patients over 70 years has not been determined. Clinical correlation is essential. Serum or plasma urea nitroge n measurement (mass/volume)Ordered By: Guilherme Butt on 04-25-2024 Urea nitrogen [Mass/Vol] 28 mg/dL High 7-18 [facility] Sodium levelOrdered By: Roseliakieran anne Yonasmarianjessenia on 04-25-2024 Sodium [Moles/Vol] 139 mmol/L 136-145 [facility] White blood cell (WBC) count Ordered By: Guilherme Branhammarianjessenia on 04-25-2024 WBC (Bld) [#/Vol] 4.2 10*3/uL Low 4.4-11.0 [facility] Basophil percentageOrdered B y: Kellyalfredodmitri Butt on 08-24-2023 Chloride [Moles/Vol] 105 mmol/L 98-107 [facility] Glucose [Mass/Vol] 86 mg/dL 74-106 [facility] Hemoglobin (Bld) [Mass/Vol] 13.3 g/dL 13.0-16.5 [facility] Potassium [Moles/Vol] 4.5 mmol/L 3.5-5.1 [facility] Sodium [Moles/Vol] 138 mmol/L 136-145 [facility] WBC (Bld) [#/Vol] 4.6 10*3/uL 4.4-11.0 [facility] Determination of erythrocyte mean corpuscular volume (MCV)Ordered By: Guilherme Butt on 08-24-2023 MCV (RBC) [Entitic vol] 96.2 fL 80-94 [facility] Erythrocyte distribution wid th ratioOrdered By: [facility] on 08-24-2023 Erythrocyte distribution width (RBC) [Ratio] 13.0 % 11.6-14.6 [facility] Erythrocyte distribution wid th standard deviationOrdered By: Kellydenverdmitri Butt on 08-24-2023 Erythrocyte distribution width (RBC) [Entitic vol] 46.1 fL 35.1-43.9 [facility] Hematocrit Auto (Bld) [Volum e fraction]Ordered By: Guilherme Butt on 08-24-2023 Hematocrit (Bld) [Volume fraction] 40.6 % 40-54 [facility] Laboratory - Chemistry and C hemistry - challengeOrdered By: Guilherme Butt on 08-24-2023 CO2 [Moles/Vol] 30.0 mmol/L 21.0-32.0 [facility] Urea nitrogen/Creatinine [Mass ratio] 26.9 mg/mg 10-20 [facility] Laboratory - Hematology and Cell countsOrdered By: Guilherme Butt on 08-24-2023 MCH (RBC) [Entitic mass] 31.5 pg 27.0-32.0 [facility] MCHC (RBC) [Mass/Vol] 32.8 g/dL 32-36 [facility] Platelet mean volume (Bld) [Entitic vol] 9.2 fL 6.2-12.0 [facility] Platelets (Bld) [#/Vol] 193 10*3/uL 150-450 [facility] No Panel InformationOrdered By: Guilherme Butt on 08-24-2023 Estimated GFR (MDRD) Amer 89 mL/min >60 [facility] Comment on above: GFR Calc Estimated GFR (MDRD) Non-Af Amer 73 mL/min >60 [facility] Comment on above: Non- GFR Calc RBC Auto (Bld) [#/Vol]Ordere d By: Guilherme Butt on 08-24-2023 RBC (Bld) [#/Vol] 4.22 10*6/uL 4.6-6.2 [facility] Serum or plasma calcium farshad urement (mass/volume)Ordered By: Guilherme Butt on 08-24-2023 Calcium [Mass/Vol] 9.0 mg/dL 8.5-10.1 [facility] Serum or plasma creatinine m easurement (mass/volume)Ordered By: Guilherme Butt on 08-24-2023 Creatinine [Mass/Vol] 1.04 mg/dL 0.70-1.30 [facility] Comment on above: The validity of the calculated GFR & GFRAA in patients over 70 years has not been determined. Clinical correlation is essential. Serum or plasma urea nitroge n measurement (mass/volume)Ordered By: Guilherme Butt on 08-24-2023 Urea nitrogen [Mass/Vol] 28 mg/dL 7-18 [facility] Thin prep Papanicolaou smear with manual screeningOrdered By: Kellydenverdmitri Butt on 08-24-2023 Thin prep Papanicolaou smear with manual screening 3 5-15 [facility] Basophil percentageOrdered B y: Guilherme Butt on 07-20-2023 Chloride [Moles/Vol] 109 mmol/L 98-107 [facility] Glucose [Mass/Vol] 83 mg/dL 74-106 [facility] Hemoglobin (Bld) [Mass/Vol] 13.1 g/dL 13.0-16.5 [facility] Potassium [Moles/Vol] 4.2 mmol/L 3.5-5.1 [facility] Sodium [Moles/Vol] 142 mmol/L 136-145 [facility] WBC (Bld) [#/Vol] 4.5 10*3/uL 4.4-11.0 [facility] Determination of erythrocyte mean corpuscular volume (MCV)Ordered By: Guilherme Butt on 07-20-2023 MCV (RBC) [Entitic vol] 94.4 fL 80-94 [facility] Erythrocyte distribution wid th ratioOrdered By: Guilherme Butt on 07-20-2023 Erythrocyte distribution width (RBC) [Ratio] 12.8 % 11.6-14.6 [facility] Erythrocyte distribution wid th standard deviationOrdered By: Guilherme Butt on 07-20-2023 Erythrocyte distribution width (RBC) [Entitic vol] 44.0 fL 35.1-43.9 [facility] Hematocrit Auto (Bld) [Volum e fraction]Ordered By: Guilherme Butt on 07-20-2023 Hematocrit (Bld) [Volume fraction] 38.9 % 40-54 [facility] Laboratory - Chemistry and C hemistry - challengeOrdered By: Kellydenverdmitri Butt on 07-20-2023 CO2 [Moles/Vol] 26.0 mmol/L 21.0-32.0 [facility] Urea nitrogen/Creatinine [Mass ratio] 31.5 mg/mg 10-20 [facility] Laboratory - Hematology and Cell countsOrdered By: Guilherme Butt on 07-20-2023 MCH (RBC) [Entitic mass] 31.8 pg 27.0-32.0 [facility] MCHC (RBC) [Mass/Vol] 33.7 g/dL 32-36 [facility] Platelet mean volume (Bld) [Entitic vol] 9.1 fL 6.2-12.0 [facility] Platelets (Bld) [#/Vol] 195 10*3/uL 150-450 [facility] No Panel InformationOrdered By: Guilherme Butt on 07-20-2023 Estimated GFR (MDRD) Amer 102 mL/min >60 [facility] Comment on above: GFR Calc Estimated GFR (MDRD) Non-Af Amer 84 mL/min >60 [facility] Comment on above: Non- GFR Calc RBC Auto (Bld) [#/Vol]Ordere d By: Guilherme Butt on 07-20-2023 RBC (Bld) [#/Vol] 4.12 10*6/uL 4.6-6.2 [facility] Serum or plasma calcium farshad urement (mass/volume)Ordered By: Guilherme Butt on 07-20-2023 Calcium [Mass/Vol] 8.8 mg/dL 8.5-10.1 [facility] Serum or plasma creatinine m easurement (mass/volume)Ordered By: Guilherme Butt on 07-20-2023 Creatinine [Mass/Vol] 0.92 mg/dL 0.70-1.30 [facility] Comment on above: The validity of the calculated GFR & GFRAA in patients over 70 years has not been determined. Clinical correlation is essential. Serum or plasma urea nitroge n measurement (mass/volume)Ordered By: Guilherme Butt on 07-20-2023 Urea nitrogen [Mass/Vol] 29 mg/dL 7-18 [facility] Thin prep Papanicolaou smear with manual screeningOrdered By: kierandenverdmitri Butt on 07-20-2023 Thin prep Papanicolaou smear with manual screening 7 5-15 [facility] Basophil percentageOrdered B y: Guilherme Butt on 06-22-2023 Chloride [Moles/Vol] 107 mmol/L 98-107 [facility] Glucose [Mass/Vol] 88 mg/dL 74-106 [facility] Hemoglobin (Bld) [Mass/Vol] 12.8 g/dL 13.0-16.5 [facility] Potassium [Moles/Vol] 4.4 mmol/L 3.5-5.1 [facility] Sodium [Moles/Vol] 141 mmol/L 136-145 [facility] WBC (Bld) [#/Vol] 4.6 10*3/uL 4.4-11.0 [facility] Determination of erythrocyte mean corpuscular volume (MCV)Ordered By: Guilherme Butt on 06-22-2023 MCV (RBC) [Entitic vol] 93.4 fL 80-94 [facility] Erythrocyte distribution wid th ratioOrdered By: Guilherme Butt on 06-22-2023 Erythrocyte distribution width (RBC) [Ratio] 12.5 % 11.6-14.6 [facility] Erythrocyte distribution wid th standard deviationOrdered By: Guilherme Butt on 06-22-2023 Erythrocyte distribution width (RBC) [Entitic vol] 43.2 fL 35.1-43.9 [facility] Hematocrit Auto (Bld) [Volum e fraction]Ordered By: Guilherme Butt on 06-22-2023 Hematocrit (Bld) [Volume fraction] 38.4 % 40-54 [facility] Laboratory - Chemistry and C hemistry - challengeOrdered By: Guilherme Butt on 06-22-2023 CO2 [Moles/Vol] 30.0 mmol/L 21.0-32.0 [facility] Urea nitrogen/Creatinine [Mass ratio] 26.5 mg/mg 10-20 [facility] Laboratory - Hematology and Cell countsOrdered By: Guilherme Butt on 06-22-2023 MCH (RBC) [Entitic mass] 31.1 pg 27.0-32.0 [facility] MCHC (RBC) [Mass/Vol] 33.3 g/dL 32-36 [facility] Platelet mean volume (Bld) [Entitic vol] 9.0 fL 6.2-12.0 [facility] Platelets (Bld) [#/Vol] 194 10*3/uL 150-450 [facility] No Panel InformationOrdered By: Guilherme Butt on 06-22-2023 Estimated GFR (MDRD) Amer 104 mL/min >60 [facility] Comment on above: GFR Calc Estimated GFR (MDRD) Non-Af Amer 86 mL/min >60 [facility] Comment on above: Non- GFR Calc RBC Auto (Bld) [#/Vol]Ordere d By: Guilherme Butt on 06-22-2023 RBC (Bld) [#/Vol] 4.11 10*6/uL 4.6-6.2 [facility] Serum or plasma calcium farshad urement (mass/volume)Ordered By: Guilherme Butt on 06-22-2023 Calcium [Mass/Vol] 8.8 mg/dL 8.5-10.1 [facility] Serum or plasma creatinine m easurement (mass/volume)Ordered By: Guilherme Butt on 06-22-2023 Creatinine [Mass/Vol] 0.90 mg/dL 0.70-1.30 [facility] Comment on above: The validity of the calculated GFR & GFRAA in patients over 70 years has not been determined. Clinical correlation is essential. Serum or plasma urea nitroge n measurement (mass/volume)Ordered By: Guilherme Butt on 06-22-2023 Urea nitrogen [Mass/Vol] 24 mg/dL 7-18 [facility] Thin prep Papanicolaou smear with manual screeningOrdered By: Guilherme Butt on 06-22-2023 Thin prep Papanicolaou smear with manual screening 4 5-15 [facility] Basophil percentageOrdered B y: Cecy Gray on 05-25-2023 Chloride [Moles/Vol] 107 mmol/L 98-107 [facility] Glucose [Mass/Vol] 138 mg/dL 74-106 [facility] Comment on above: Fasting Glucose resu lt greater than or equal to 126 mg/dL suggests DIABETES MELLITUS per A.D.A. criteria. Potassium [Moles/Vol] 4.1 mmol/L 3.5-5.1 [facility] Sodium [Moles/Vol] 141 mmol/L 136-145 [facility] WBC (Bld) [#/Vol] 5.5 10*3/uL 4.4-11.0 [facility] Blood erythrocytes count (nu mber/volume)Ordered By: Cecy Gray on 05-25-2023 RBC (Bld) [#/Vol] 4.36 10*6/uL 4.6-6.2 [facility] Blood hemoglobin measurement (mass/volume)Ordered By: Cecy Gray on 05-25-2023 Hemoglobin (Bld) [Mass/Vol] 13.5 g/dL 13.0-16.5 [facility] Blood platelet mean volumeOr dered By: Cecy Gray on 05-25-2023 Platelet mean volume (Bld) [Entitic vol] 9.2 fL 6.2-12.0 [facility] Determination of erythrocyte mean corpuscular volume (MCV)Ordered By: Cecy Gray on 01-12-2024 MCV (RBC) [Entitic vol] 94.0 fL 80-94 [facility] Hematocrit Auto (Bld) [Volum e fraction]Ordered By: Cecy Gray on 05-25-2023 Hematocrit (Bld) [Volume fraction] 41.0 % 40-54 [facility] Laboratory - Chemistry and C hemistry - challengeOrdered By: Cecy Gray on 05-25-2023 CO2 [Moles/Vol] 26.0 mmol/L 21.0-32.0 [facility] Urea nitrogen/Creatinine [Mass ratio] 25.2 mg/mg 10-20 [facility] Laboratory - Hematology and Cell countsOrdered By: Cecy Gray on 05-25-2023 Erythrocyte distribution width (RBC) [Entitic vol] 43.3 fL 35.1-43.9 [facility] Erythrocyte distribution width (RBC) [Ratio] 12.4 % 11.6-14.6 [facility] MCH (RBC) [Entitic mass] 31.0 pg 27.0-32.0 [facility] MCHC Auto (RBC) [Mass/Vol]Or dered By: Cecy Gray on 05-25-2023 MCHC (RBC) [Mass/Vol] 32.9 g/dL 32-36 [facility] No Panel InformationOrdered By: Cecy Gray on 05-25-2023 Estimated GFR (MDRD) Amer 86 mL/min >60 [facility] Comment on above: GFR Calc Estimated GFR (MDRD) Non-Af Amer 71 mL/min >60 [facility] Comment on above: Non- GFR Calc Platelets bldOrdered By: Reinier Gray on 05-25-2023 Platelets (Bld) [#/Vol] 214 10*3/uL 150-450 [facility] Serum or plasma calcium farshad urement (mass/volume)Ordered By: Cecy Gray on 05-25-2023 Calcium [Mass/Vol] 9.2 mg/dL 8.5-10.1 [facility] Serum or plasma creatinine m easurement (mass/volume)Ordered By: Cecy Gray on 05-25-2023 Creatinine [Mass/Vol] 1.07 mg/dL 0.70-1.30 [facility] Comment on above: The validity of the calculated GFR & GFRAA in patients over 70 years has not been determined. Clinical correlation is essential. Serum or plasma urea nitroge n measurement (mass/volume)Ordered By: Cecy Gray on 05-25-2023 Urea nitrogen [Mass/Vol] 27 mg/dL 7-18 [facility] Thin prep Papanicolaou smear with manual screeningOrdered By: Cecy Gray on 05-25-2023 Thin prep Papanicolaou smear with manual screening 8 5-15 [facility] Basophil percentageOrdered B y: Cecy Gray on 04-20-2023 Chloride [Moles/Vol] 106 mmol/L 98-107 [facility] Glucose [Mass/Vol] 100 mg/dL 74-106 [facility] Comment on above: Fasting Glucose resu lt from 100 to 125 mg/dL suggests IMPAIRED HOMEOSTASIS per A.D.A. criteria. Potassium [Moles/Vol] 4.8 mmol/L 3.5-5.1 [facility] Sodium [Moles/Vol] 140 mmol/L 136-145 [facility] WBC (Bld) [#/Vol] 5.2 10*3/uL 4.4-11.0 [facility] Blood erythrocytes count (nu mber/volume)Ordered By: Cecy Gray on 04-20-2023 RBC (Bld) [#/Vol] 4.26 10*6/uL 4.6-6.2 [facility] Blood hemoglobin measurement (mass/volume)Ordered By: Cecy Gray on 04-20-2023 Hemoglobin (Bld) [Mass/Vol] 13.8 g/dL 13.0-16.5 [facility] Blood platelet mean volumeOr dered By: Cecy Gray on 04-20-2023 Platelet mean volume (Bld) [Entitic vol] 9.1 fL 6.2-12.0 [facility] Determination of erythrocyte mean corpuscular volume (MCV)Ordered By: Cecy Gray on 04-20-2023 MCV (RBC) [Entitic vol] 96.9 fL 80-94 [facility] Hematocrit Auto (Bld) [Volum e fraction]Ordered By: Cecy Gray on 04-20-2023 Hematocrit (Bld) [Volume fraction] 41.3 % 40-54 [facility] Laboratory - Chemistry and C hemistry - challengeOrdered By: Cecy Gray on 04-20-2023 CO2 [Moles/Vol] 34.0 mmol/L 21.0-32.0 [facility] Urea nitrogen/Creatinine [Mass ratio] 23.8 mg/mg 10-20 [facility] Laboratory - Hematology and Cell countsOrdered By: Cecy Gray on 04-20-2023 Erythrocyte distribution width (RBC) [Entitic vol] 45.5 fL 35.1-43.9 [facility] Erythrocyte distribution width (RBC) [Ratio] 12.8 % 11.6-14.6 [facility] MCH (RBC) [Entitic mass] 32.4 pg 27.0-32.0 [facility] MCHC Auto (RBC) [Mass/Vol]Or dered By: Cecy Gray on 04-20-2023 MCHC (RBC) [Mass/Vol] 33.4 g/dL 32-36 [facility] No Panel InformationOrdered By: Cecy Gray on 04-20-2023 Estimated GFR (MDRD) Amer 88 mL/min >60 [facility] Comment on above: GFR Calc Estimated GFR (MDRD) Non-Af Amer 73 mL/min >60 [facility] Comment on above: Non- GFR Calc Platelets bldOrdered By: Reinier Gray on 04-20-2023 Platelets (Bld) [#/Vol] 234 10*3/uL 150-450 [facility] Serum or plasma calcium farshad urement (mass/volume)Ordered By: Cecy Gray on 04-20-2023 Calcium [Mass/Vol] 9.3 mg/dL 8.5-10.1 [facility] Serum or plasma creatinine m easurement (mass/volume)Ordered By: Cecy Gray on 04-20-2023 Creatinine [Mass/Vol] 1.05 mg/dL 0.70-1.30 [facility] Comment on above: The validity of the calculated GFR & GFRAA in patients over 70 years has not been determined. Clinical correlation is essential. Serum or plasma urea nitroge n measurement (mass/volume)Ordered By: Cecy Gray on 04-20-2023 Urea nitrogen [Mass/Vol] 25 mg/dL 7-18 [facility] Thin prep Papanicolaou smear with manual screeningOrdered By: Cecy Gray on 04-20-2023 Thin prep Papanicolaou smear with manual screening 0 5-15 [facility] Basophil percentageOrdered B y: Cecy Gray on 03-23-2023 Chloride [Moles/Vol] 104 mmol/L 98-107 [facility] Glucose [Mass/Vol] 91 mg/dL 74-106 [facility] Potassium [Moles/Vol] 4.1 mmol/L 3.5-5.1 [facility] Sodium [Moles/Vol] 141 mmol/L 136-145 [facility] WBC (Bld) [#/Vol] 4.5 10*3/uL 4.4-11.0 [facility] Blood erythrocytes count (nu mber/volume)Ordered By: Cecy Gray on 03-23-2023 RBC (Bld) [#/Vol] 4.07 10*6/uL 4.6-6.2 [facility] Blood hemoglobin measurement (mass/volume)Ordered By: Cecy Gray on 03-23-2023 Hemoglobin (Bld) [Mass/Vol] 12.8 g/dL 13.0-16.5 [facility] Blood platelet mean volumeOr dered By: Cecy Gray on 03-23-2023 Platelet mean volume (Bld) [Entitic vol] 9.4 fL 6.2-12.0 [facility] Determination of erythrocyte mean corpuscular volume (MCV)Ordered By: Cecy Gray on 03-23-2023 MCV (RBC) [Entitic vol] 97.5 fL 80-94 [facility] Hematocrit Auto (Bld) [Volum e fraction]Ordered By: Cecy Gray on 03-23-2023 Hematocrit (Bld) [Volume fraction] 39.7 % 40-54 [facility] Laboratory - Chemistry and C hemistry - challengeOrdered By: Cecy Gray on 03-23-2023 CO2 [Moles/Vol] 31.0 mmol/L 21.0-32.0 [facility] Urea nitrogen/Creatinine [Mass ratio] 28.0 mg/mg 10-20 [facility] Laboratory - Hematology and Cell countsOrdered By: Cecy Gray on 03-23-2023 Erythrocyte distribution width (RBC) [Entitic vol] 46.2 fL 35.1-43.9 [facility] Erythrocyte distribution width (RBC) [Ratio] 12.8 % 11.6-14.6 [facility] MCH (RBC) [Entitic mass] 31.4 pg 27.0-32.0 [facility] MCHC Auto (RBC) [Mass/Vol]Or dered By: Cecy Gray on 03-23-2023 MCHC (RBC) [Mass/Vol] 32.2 g/dL 32-36 [facility] No Panel InformationOrdered By: Cecy Gray on 03-23-2023 Estimated GFR (MDRD) Amer 93 mL/min >60 [facility] Comment on above: GFR Calc Estimated GFR (MDRD) Non-Af Amer 77 mL/min >60 [facility] Comment on above: Non- GFR Calc Platelets bldOrdered By: Reinier Gray on 03-23-2023 Platelets (Bld) [#/Vol] 210 10*3/uL 150-450 [facility] Serum or plasma calcium farshad urement (mass/volume)Ordered By: Cecy Gray on 03-23-2023 Calcium [Mass/Vol] 8.9 mg/dL 8.5-10.1 [facility] Serum or plasma creatinine m easurement (mass/volume)Ordered By: Cecy Gray on 03-23-2023 Creatinine [Mass/Vol] 1.00 mg/dL 0.70-1.30 [facility] Comment on above: The validity of the calculated GFR & GFRAA in patients over 70 years has not been determined. Clinical correlation is essential. Serum or plasma urea nitroge n measurement (mass/volume)Ordered By: Cecy Gray on 03-23-2023 Urea nitrogen [Mass/Vol] 28 mg/dL 7-18 [facility] Thin prep Papanicolaou smear with manual screeningOrdered By: Cecy Gray on 03-23-2023 Thin prep Papanicolaou smear with manual screening 6 5-15 [facility] Basophil percentageOrdered B y: Cecy Gray on 02-23-2023 Chloride [Moles/Vol] 106 mmol/L 98-107 [facility] Glucose [Mass/Vol] 93 mg/dL 74-106 [facility] Potassium [Moles/Vol] 4.3 mmol/L 3.5-5.1 [facility] Sodium [Moles/Vol] 139 mmol/L 136-145 [facility] WBC (Bld) [#/Vol] 5.0 10*3/uL 4.4-11.0 [facility] Blood erythrocytes count (nu mber/volume)Ordered By: Cecy Gray on 02-23-2023 RBC (Bld) [#/Vol] 4.08 10*6/uL 4.6-6.2 [facility] Blood hemoglobin measurement (mass/volume)Ordered By: Cecy Gray on 02-23-2023 Hemoglobin (Bld) [Mass/Vol] 12.9 g/dL 13.0-16.5 [facility] Blood platelet mean volumeOr dered By: Cecy Gray on 02-23-2023 Platelet mean volume (Bld) [Entitic vol] 9.3 fL 6.2-12.0 [facility] Determination of erythrocyte mean corpuscular volume (MCV)Ordered By: Cecy Gray on 02-23-2023 MCV (RBC) [Entitic vol] 97.8 fL 80-94 [facility] Hematocrit Auto (Bld) [Volum e fraction]Ordered By: Cecy Gray on 02-23-2023 Hematocrit (Bld) [Volume fraction] 39.9 % 40-54 [facility] Laboratory - Chemistry and C hemistry - challengeOrdered By: Cecy Gray on 02-23-2023 CO2 [Moles/Vol] 30.0 mmol/L 21.0-32.0 [facility] Urea nitrogen/Creatinine [Mass ratio] 29.9 mg/mg 10-20 [facility] Laboratory - Hematology and Cell countsOrdered By: Cecy Gray on 02-23-2023 Erythrocyte distribution width (RBC) [Entitic vol] 45.7 fL 35.1-43.9 [facility] Erythrocyte distribution width (RBC) [Ratio] 12.6 % 11.6-14.6 [facility] MCH (RBC) [Entitic mass] 31.6 pg 27.0-32.0 [facility] ([facility] [Mass/Vol]Or dered By: Cecy Gray on 02-23-2023 MCHC (RBC) [Mass/Vol] 32.3 g/dL 32-36 [facility] No Panel InformationOrdered By: Cecy Gray on 02-23-2023 Estimated GFR (MDRD) Amer 86 mL/min >60 [facility] Comment on above: GFR Calc Estimated GFR (MDRD) Non-Af Amer 71 mL/min >60 [facility] Comment on above: Non- GFR Calc Platelets bldOrdered By: Reinier Gray on 02-23-2023 Platelets (Bld) [#/Vol] 201 10*3/uL 150-450 [facility] Serum or plasma calcium farshad urement (mass/volume)Ordered By: Cecy Gray on 02-23-2023 Calcium [Mass/Vol] 8.8 mg/dL 8.5-10.1 [facility] Serum or plasma creatinine m easurement (mass/volume)Ordered By: Cecy Gray on 02-23-2023 Creatinine [Mass/Vol] 1.07 mg/dL 0.70-1.30 [facility] Comment on above: The validity of the calculated GFR & GFRAA in patients over 70 years has not been determined. Clinical correlation is essential. Serum or plasma urea nitroge n measurement (mass/volume)Ordered By: Cecy Gray on 02-23-2023 Urea nitrogen [Mass/Vol] 32 mg/dL 7-18 [facility] Thin prep Papanicolaou smear with manual screeningOrdered By: Cecy Gray on 02-23-2023 Thin prep Papanicolaou smear with manual screening 3 5-15 [facility] Basophil percentageOrdered B y: Guilherme Butt on 02-06-2023 Bilirubin [Mass/Vol] 0.50 mg/dL 0.20-1.00 [facility] Comment on above: For patients on eltr ombopag therapy, use of Dimension [place] TBIL is not recommended. Cholesterol [Mass/Vol] 180 mg/dL <200 [facility] Comment on above: <200 mg/dL Desirable 200-240 mg/dL Borderline >240 mg/dL High Risk Protein [Mass/Vol] 6.3 g/dL 6.4-8.2 [facility] Triglyceride [Mass/Vol] 108 mg/dL <199 [facility] Comment on above: The drugs N-Acetylcy steine and Metamizole may falsely depress this assay.Serum Triglycerides Reference Interval Normal <150 mg/dL Borderline high 150 - 199 mg/dL High 200 - 499 mg/dL Very High > or = 500 mg/dL Direct bilirubinOrdered By: Guilherme Butt on 02-06-2023 Bilirubin.direct [Mass/Vol] 0.11 mg/dL 0.00-0.30 [facility] Laboratory - Chemistry and C hemistry - challengeOrdered By: Guilherme Butt on 02-06-2023 ALP [Catalytic activity/Vol] 119 U/L 45-117 [facility] ALT [Catalytic activity/Vol] 9 U/L 16-61 [facility] Free T4 [Mass/Vol] 0.65 ng/dL 0.76-1.46 [facility] Globulin (S) [Mass/Vol] 2.9 g/dL 2.2-4.2 [facility] No Panel InformationOrdered By: Guilherme Butt on 02-06-2023 Thyroid Stimulating Hormone (TSH) 1.03 uIU/mL 0.358-3.74 [facility] Serum or plasma albumin farshad urement (mass/volume)Ordered By: Guilherme Butt on 02-06-2023 Albumin [Mass/Vol] 3.4 g/dL 3.2-5.0 [facility] Serum or plasma cholesterol in HDL measurement (mass/volume)Ordered By: Guilherme Butt on 02-06-2023 Cholesterol in HDL [Mass/Vol] 50 mg/dL >40 [facility] Comment on above: The drugs N-Acetylcy steine and Metamizole may falsely depress this assay. Reference Range HDL <40 mg/dL Low HDL Cholesterol HDL >or= 60 mg/dL High HDL Cholesterol Serum or plasma cholesterol in VLDL measurement (mass/volume)Ordered By: Guilherme Butt on 02-06-2023 Cholesterol in VLDL [Mass/Vol] 22 mg/dL 5-40 [facility] Serum or plasma low density lipoprotein (LDL) cholesterol measurement (mass/volume)Ordered By: Guilherme Butt on 02-06-2023 Cholesterol in LDL [Mass/Vol] 108 mg/dL 0-130 [facility] Thin prep Papanicolaou smear with manual screeningOrdered By: Guilherme Butt on 02-06-2023 Thin prep Papanicolaou smear with manual screening 11 U/L 15-37 [facility] Whole blood hemoglobin A1c/t otal hemoglobin ratio (mass fraction)Ordered By: Guilherme Butt on 02-06-2023 HbA1c (Bld) [Mass fraction] 5.3 % 3.8-5.6 [facility] Comment on above: Normal < 5.7 % Predi abetic 5.7 - 6.4 % Diabetic >or= 6.5 % Please note range changes. Basophil percentageOrdered B y: Guilherme Butt on 01-19-2023 Chloride [Moles/Vol] 107 mmol/L 98-107 [facility] Glucose [Mass/Vol] 93 mg/dL 74-106 [facility] Potassium [Moles/Vol] 4.8 mmol/L 3.5-5.1 [facility] Sodium [Moles/Vol] 141 mmol/L 136-145 [facility] WBC (Bld) [#/Vol] 4.5 10*3/uL 4.4-11.0 [facility] Blood erythrocytes count (nu mber/volume)Ordered By: Guilherme Butt on 01-19-2023 RBC (Bld) [#/Vol] 4.22 10*6/uL 4.6-6.2 [facility] Blood hemoglobin measurement (mass/volume)Ordered By: Guilherme Butt on 01-19-2023 Hemoglobin (Bld) [Mass/Vol] 13.4 g/dL 13.0-16.5 [facility] Blood platelet mean volumeOr dered By: Guilherme Butt on 01-19-2023 Platelet mean volume (Bld) [Entitic vol] 9.4 fL 6.2-12.0 [facility] Determination of erythrocyte mean corpuscular volume (MCV)Ordered By: uGilherme Butt on 01-19-2023 MCV (RBC) [Entitic vol] 99.1 fL 80-94 [facility] Hematocrit Auto (Bld) [Volum e fraction]Ordered By: Guilherme Butt on 01-19-2023 Hematocrit (Bld) [Volume fraction] 41.8 % 40-54 [facility] Laboratory - Chemistry and C hemistry - challengeOrdered By: Guilherme Butt on 01-19-2023 CO2 [Moles/Vol] 32.0 mmol/L 21.0-32.0 [facility] Urea nitrogen/Creatinine [Mass ratio] 25.5 mg/mg 10-20 [facility] Laboratory - Hematology and Cell countsOrdered By: Guilherme Butt on 01-19-2023 Erythrocyte distribution width (RBC) [Entitic vol] 46.4 fL 35.1-43.9 [facility] Erythrocyte distribution width (RBC) [Ratio] 12.8 % 11.6-14.6 [facility] MCH (RBC) [Entitic mass] 31.8 pg 27.0-32.0 [facility] MCHC Auto (RBC) [Mass/Vol]Or dered By: Guilherme Butt on 01-19-2023 MCHC (RBC) [Mass/Vol] 32.1 g/dL 32-36 [facility] No Panel InformationOrdered By: Guilherme Butt on 01-19-2023 Estimated GFR (MDRD) Amer 91 mL/min >60 [facility] Comment on above: GFR Calc Estimated GFR (MDRD) Non-Af Amer 75 mL/min >60 [facility] Comment on above: Non- GFR Calc Platelets bldOrdered By: Jamaal Butt on 01-19-2023 Platelets (Bld) [#/Vol] 180 10*3/uL 150-450 [facility] Serum or plasma calcium farshad urement (mass/volume)Ordered By: Guilherme Butt on 01-19-2023 Calcium [Mass/Vol] 9.1 mg/dL 8.5-10.1 [facility] Serum or plasma creatinine m easurement (mass/volume)Ordered By: Guilherme Butt on 01-19-2023 Creatinine [Mass/Vol] 1.02 mg/dL 0.70-1.30 [facility] Comment on above: The validity of the calculated GFR & GFRAA in patients over 70 years has not been determined. Clinical correlation is essential. Serum or plasma urea nitroge n measurement (mass/volume)Ordered By: Guilherme Butt on 01-19-2023 Urea nitrogen [Mass/Vol] 26 mg/dL 7-18 [facility] Thin prep Papanicolaou smear with manual screeningOrdered By: Guilherme Butt on 01-19-2023 Thin prep Papanicolaou smear with manual screening 2 5-15 [facility] Basophil percentageOrdered B y: Guilherme Butt on 12-22-2022 Chloride [Moles/Vol] 106 mmol/L 98-107 [facility] Glucose [Mass/Vol] 87 mg/dL 74-106 [facility] Potassium [Moles/Vol] 4.5 mmol/L 3.5-5.1 [facility] Sodium [Moles/Vol] 140 mmol/L 136-145 [facility] WBC (Bld) [#/Vol] 4.6 10*3/uL 4.4-11.0 [facility] Blood erythrocytes count (nu mber/volume)Ordered By: Guilherme Butt on 12-22-2022 RBC (Bld) [#/Vol] 4.14 10*6/uL 4.6-6.2 [facility] Blood hemoglobin measurement (mass/volume)Ordered By: Guilherme Butt on 12-22-2022 Hemoglobin (Bld) [Mass/Vol] 13.4 g/dL 13.0-16.5 [facility] Blood platelet mean volumeOr dered By: Guilherme Butt on 12-22-2022 Platelet mean volume (Bld) [Entitic vol] 9.0 fL 6.2-12.0 [facility] Determination of erythrocyte mean corpuscular volume (MCV)Ordered By: Guilherme Butt on 12-22-2022 MCV (RBC) [Entitic vol] 97.3 fL 80-94 [facility] Hematocrit Auto (Bld) [Volum e fraction]Ordered By: Guilherme Butt on 12-22-2022 Hematocrit (Bld) [Volume fraction] 40.3 % 40-54 [facility] Laboratory - Chemistry and C hemistry - challengeOrdered By: Guilherme Butt on 12-22-2022 CO2 [Moles/Vol] 33.0 mmol/L 21.0-32.0 [facility] Urea nitrogen/Creatinine [Mass ratio] 26.2 mg/mg 10-20 [facility] Laboratory - Hematology and Cell countsOrdered By: Guilherme Butt on 12-22-2022 Erythrocyte distribution width (RBC) [Entitic vol] 45.3 fL 35.1-43.9 [facility] Erythrocyte distribution width (RBC) [Ratio] 12.8 % 11.6-14.6 [facility] MCH (RBC) [Entitic mass] 32.4 pg 27.0-32.0 [facility] MCHC Auto (RBC) [Mass/Vol]Or dered By: Guilherme Butt on 12-22-2022 MCHC (RBC) [Mass/Vol] 33.3 g/dL 32-36 [facility] No Panel InformationOrdered By: Guilherme Butt on 12-22-2022 Estimated GFR (MDRD) Amer 94 mL/min >60 [facility] Comment on above: GFR Calc Estimated GFR (MDRD) Non-Af Amer 78 mL/min >60 [facility] Comment on above: Non- GFR Calc Platelets bldOrdered By: Jamaal Butt on 12-22-2022 Platelets (Bld) [#/Vol] 179 10*3/uL 150-450 [facility] Serum or plasma calcium farshad urement (mass/volume)Ordered By: Guilherme Butt on 12-22-2022 Calcium [Mass/Vol] 8.9 mg/dL 8.5-10.1 [facility] Serum or plasma creatinine m easurement (mass/volume)Ordered By: Guilherme Butt on 12-22-2022 Creatinine [Mass/Vol] 0.99 mg/dL 0.70-1.30 [facility] Comment on above: The validity of the calculated GFR & GFRAA in patients over 70 years has not been determined. Clinical correlation is essential. Serum or plasma urea nitroge n measurement (mass/volume)Ordered By: Guilherme Butt on 12-22-2022 Urea nitrogen [Mass/Vol] 26 mg/dL 7-18 [facility] Thin prep Papanicolaou smear with manual screeningOrdered By: Guilherme Butt on 12-22-2022 Thin prep Papanicolaou smear with manual screening 1 5-15 [facility] Basophil percentageOrdered B y: Guilherme Butt on 11-24-2022 Chloride [Moles/Vol] 109 mmol/L 98-107 [facility] Glucose [Mass/Vol] 132 mg/dL 74-106 [facility] Comment on above: Fasting Glucose resu lt greater than or equal to 126 mg/dL suggests DIABETES MELLITUS per A.D.A. criteria. Potassium [Moles/Vol] 4.0 mmol/L 3.5-5.1 [facility] Sodium [Moles/Vol] 140 mmol/L 136-145 [facility] WBC (Bld) [#/Vol] 4.6 10*3/uL 4.4-11.0 [facility] Blood erythrocytes count (nu mber/volume)Ordered By: Guilherme Butt on 11-24-2022 RBC (Bld) [#/Vol] 4.06 10*6/uL 4.6-6.2 [facility] Blood hemoglobin measurement (mass/volume)Ordered By: Guilherme Butt on 11-24-2022 Hemoglobin (Bld) [Mass/Vol] 13.0 g/dL 13.0-16.5 [facility] Blood platelet mean volumeOr dered By: Guilherme Butt on 11-24-2022 Platelet mean volume (Bld) [Entitic vol] 9.3 fL 6.2-12.0 [facility] Determination of erythrocyte mean corpuscular volume (MCV)Ordered By: Guilherme Butt on 11-24-2022 MCV (RBC) [Entitic vol] 96.3 fL 80-94 [facility] Hematocrit Auto (Bld) [Volum e fraction]Ordered By: Guilherme Butt on 11-24-2022 Hematocrit (Bld) [Volume fraction] 39.1 % 40-54 [facility] Laboratory - Chemistry and C hemistry - challengeOrdered By: Guilherme Butt on 11-24-2022 CO2 [Moles/Vol] 26.0 mmol/L 21.0-32.0 [facility] Urea nitrogen/Creatinine [Mass ratio] 34.3 mg/mg 10-20 [facility] Laboratory - Hematology and Cell countsOrdered By: Guilherme Butt on 11-24-2022 Erythrocyte distribution width (RBC) [Entitic vol] 45.0 fL 35.1-43.9 [facility] Erythrocyte distribution width (RBC) [Ratio] 12.7 % 11.6-14.6 [facility] MCH (RBC) [Entitic mass] 32.0 pg 27.0-32.0 [facility] MCHC Auto (RBC) [Mass/Vol]Or dered By: Guilherme Butt on 11-24-2022 MCHC (RBC) [Mass/Vol] 33.2 g/dL 32-36 [facility] No Panel InformationOrdered By: Guilherme Butt on 11-24-2022 Estimated GFR (MDRD) Amer 97 mL/min >60 [facility] Comment on above: GFR Calc Estimated GFR (MDRD) Non-Af Amer 80 mL/min >60 [facility] Comment on above: Non- GFR Calc Platelets bldOrdered By: Jamaal Butt on 11-24-2022 Platelets (Bld) [#/Vol] 188 10*3/uL 150-450 [facility] Serum or plasma calcium farshad urement (mass/volume)Ordered By: Guilherme Butt on 11-24-2022 Calcium [Mass/Vol] 8.7 mg/dL 8.5-10.1 [facility] Serum or plasma creatinine m easurement (mass/volume)Ordered By: Guilherme Butt on 11-24-2022 Creatinine [Mass/Vol] 0.96 mg/dL 0.70-1.30 [facility] Comment on above: The validity of the calculated GFR & GFRAA in patients over 70 years has not been determined. Clinical correlation is essential. Serum or plasma urea nitroge n measurement (mass/volume)Ordered By: Guilherme Butt on 11-24-2022 Urea nitrogen [Mass/Vol] 33 mg/dL 7-18 [facility] Thin prep Papanicolaou smear with manual screeningOrdered By: Guilherme Butt on 11-24-2022 Thin prep Papanicolaou smear with manual screening 5 5-15 [facility] Basophil percentageOrdered B y: Cecy Gray on 10-20-2022 Chloride [Moles/Vol] 104 mmol/L 98-107 [facility] Glucose [Mass/Vol] 95 mg/dL 74-106 [facility] Potassium [Moles/Vol] 4.3 mmol/L 3.5-5.1 [facility] Sodium [Moles/Vol] 138 mmol/L 136-145 [facility] WBC (Bld) [#/Vol] 4.7 10*3/uL 4.4-11.0 [facility] Blood erythrocytes count (nu mber/volume)Ordered By: Cecy Gray on 10-20-2022 RBC (Bld) [#/Vol] 4.48 10*6/uL 4.6-6.2 [facility] Blood hemoglobin measurement (mass/volume)Ordered By: Cecy Gray on 10-20-2022 Hemoglobin (Bld) [Mass/Vol] 14.2 g/dL 13.0-16.5 [facility] Blood platelet mean volumeOr dered By: Cecy Gray on 10-20-2022 Platelet mean volume (Bld) [Entitic vol] 9.1 fL 6.2-12.0 [facility] Determination of erythrocyte mean corpuscular volume (MCV)Ordered By: Cecy Gray on 10-20-2022 MCV (RBC) [Entitic vol] 97.1 fL 80-94 [facility] Hematocrit Auto (Bld) [Volum e fraction]Ordered By: Cecy Gray on 10-20-2022 Hematocrit (Bld) [Volume fraction] 43.5 % 40-54 [facility] Laboratory - Chemistry and C hemistry - challengeOrdered By: Cecy Gray on 10-20-2022 CO2 [Moles/Vol] 28.0 mmol/L 21.0-32.0 [facility] Urea nitrogen/Creatinine [Mass ratio] 28.2 mg/mg 10-20 [facility] Laboratory - Hematology and Cell countsOrdered By: Cecy Gray on 10-20-2022 Erythrocyte distribution width (RBC) [Entitic vol] 44.9 fL 35.1-43.9 [facility] Erythrocyte distribution width (RBC) [Ratio] 12.5 % 11.6-14.6 [facility] MCH (RBC) [Entitic mass] 31.7 pg 27.0-32.0 [facility] MCHC Auto (RBC) [Mass/Vol]Or dered By: Cecy Gray on 10-20-2022 MCHC (RBC) [Mass/Vol] 32.6 g/dL 32-36 [facility] No Panel InformationOrdered By: Cecy Gray on 10-20-2022 Estimated GFR (MDRD) Amer 98 mL/min >60 [facility] Comment on above: GFR Calc Estimated GFR (MDRD) Non-Af Amer 81 mL/min >60 [facility] Comment on above: Non- GFR Calc Platelets bldOrdered By: Reinier Gray on 10-20-2022 Platelets (Bld) [#/Vol] 204 10*3/uL 150-450 [facility] Serum or plasma calcium farshad urement (mass/volume)Ordered By: Cecy Gray on 10-20-2022 Calcium [Mass/Vol] 8.7 mg/dL 8.5-10.1 [facility] Serum or plasma creatinine m easurement (mass/volume)Ordered By: Cecy Gray on 10-20-2022 Creatinine [Mass/Vol] 0.96 mg/dL 0.70-1.30 [facility] Comment on above: The validity of the calculated GFR & GFRAA in patients over 70 years has not been determined. Clinical correlation is essential. Serum or plasma urea nitroge n measurement (mass/volume)Ordered By: Cecy Gray on 10-20-2022 Urea nitrogen [Mass/Vol] 27 mg/dL 7-18 [facility] Thin prep Papanicolaou smear with manual screeningOrdered By: Cecy Gray on 10-20-2022 Thin prep Papanicolaou smear with manual screening 6 5-15 [facility] Basophil percentageOrdered B y: Cecy Gray on 09-22-2022 Chloride [Moles/Vol] 106 mmol/L 98-107 [facility] Glucose [Mass/Vol] 86 mg/dL 74-106 [facility] Potassium [Moles/Vol] 4.4 mmol/L 3.5-5.1 [facility] Sodium [Moles/Vol] 141 mmol/L 136-145 [facility] WBC (Bld) [#/Vol] 5.1 10*3/uL 4.4-11.0 [facility] Blood erythrocytes count (nu mber/volume)Ordered By: Cecy Gray on 09-22-2022 RBC (Bld) [#/Vol] 4.21 10*6/uL 4.6-6.2 [facility] Blood hemoglobin measurement (mass/volume)Ordered By: Cecy Gray on 09-22-2022 Hemoglobin (Bld) [Mass/Vol] 13.4 g/dL 13.0-16.5 [facility] Blood platelet mean volumeOr dered By: Cecy Gray on 09-22-2022 Platelet mean volume (Bld) [Entitic vol] 9.3 fL 6.2-12.0 [facility] Determination of erythrocyte mean corpuscular volume (MCV)Ordered By: Cecy Gray on 09-22-2022 MCV (RBC) [Entitic vol] 97.4 fL 80-94 [facility] Hematocrit Auto (Bld) [Volum e fraction]Ordered By: Cecy Gray on 09-22-2022 Hematocrit (Bld) [Volume fraction] 41.0 % 40-54 [facility] - Chemistry and C hemistry - challengeOrdered By: Cecy Gray on 09-22-2022 CO2 [Moles/Vol] 31.0 mmol/L 21.0-32.0 [facility] Urea nitrogen/Creatinine [Mass ratio] 27.7 mg/mg 10-20 [facility] Laboratory - Hematology and Cell countsOrdered By: Cecy Gray on 09-22-2022 Erythrocyte distribution width (RBC) [Entitic vol] 43.7 fL 35.1-43.9 [facility] Erythrocyte distribution width (RBC) [Ratio] 12.3 % 11.6-14.6 [facility] MCH (RBC) [Entitic mass] 31.8 pg 27.0-32.0 [facility] MCHC Auto (RBC) [Mass/Vol]Or dered By: Cecy Gray on 09-22-2022 MCHC (RBC) [Mass/Vol] 32.7 g/dL 32-36 [facility] No Panel InformationOrdered By: Cecy Gray on 09-22-2022 Estimated GFR (MDRD) Amer 105 mL/min >60 [facility] Comment on above: GFR Calc Estimated GFR (MDRD) Non-Af Amer 87 mL/min >60 [facility] Comment on above: Non- GFR Calc Platelets bldOrdered By: Reinier Gray on 09-22-2022 Platelets (Bld) [#/Vol] 187 10*3/uL 150-450 [facility] Serum or plasma calcium farshad urement (mass/volume)Ordered By: Cecy Gray on 09-22-2022 Calcium [Mass/Vol] 8.8 mg/dL 8.5-10.1 [facility] Serum or plasma creatinine m easurement (mass/volume)Ordered By: Cecy Gray on 09-22-2022 Creatinine [Mass/Vol] 0.90 mg/dL 0.70-1.30 [facility] Comment on above: The validity of the calculated GFR & GFRAA in patients over 70 years has not been determined. Clinical correlation is essential. Serum or plasma urea nitroge n measurement (mass/volume)Ordered By: Cecy Gray on 09-22-2022 Urea nitrogen [Mass/Vol] 25 mg/dL 7-18 [facility] Thin prep Papanicolaou smear with manual screeningOrdered By: Cecy Gray on 09-22-2022 Thin prep Papanicolaou smear with manual screening 4 5-15 [facility] Basophil percentageOrdered B y: Guilherme Butt on 08-25-2022 Chloride [Moles/Vol] 106 mmol/L 98-107 [facility] Glucose [Mass/Vol] 90 mg/dL 74-106 [facility] Potassium [Moles/Vol] 4.3 mmol/L 3.5-5.1 [facility] Sodium [Moles/Vol] 139 mmol/L 136-145 [facility] WBC (Bld) [#/Vol] 4.4 10*3/uL 4.4-11.0 [facility] Blood erythrocytes count (nu mber/volume)Ordered By: Guilherme Butt on 08-25-2022 RBC (Bld) [#/Vol] 4.15 10*6/uL 4.6-6.2 [facility] Blood hemoglobin measurement (mass/volume)Ordered By: Guilherme Butt on 08-25-2022 Hemoglobin (Bld) [Mass/Vol] 13.2 g/dL 13.0-16.5 [facility] Blood platelet mean volumeOr dered By: Guilherme Butt on 08-25-2022 Platelet mean volume (Bld) [Entitic vol] 9.3 fL 6.2-12.0 [facility] Determination of erythrocyte mean corpuscular volume (MCV)Ordered By: Guilherme Butt on 08-25-2022 MCV (RBC) [Entitic vol] 97.6 fL 80-94 [facility] Hematocrit Auto (Bld) [Volum e fraction]Ordered By: Guilherme Butt on 08-25-2022 Hematocrit (Bld) [Volume fraction] 40.5 % 40-54 [facility] Laboratory - Chemistry and C hemistry - challengeOrdered By: Guilherme Butt on 08-25-2022 CO2 [Moles/Vol] 29.0 mmol/L 21.0-32.0 [facility] Cobalamin (Vitamin B12) [Mass/Vol] 239 pg/mL 211-911 [facility] Urea nitrogen/Creatinine [Mass ratio] 25.6 mg/mg 10-20 [facility] Laboratory - Hematology and Cell countsOrdered By: Guilherme Butt on 08-25-2022 Erythrocyte distribution width (RBC) [Entitic vol] 45.1 fL 35.1-43.9 [facility] Erythrocyte distribution width (RBC) [Ratio] 12.5 % 11.6-14.6 [facility] MCH (RBC) [Entitic mass] 31.8 pg 27.0-32.0 [facility] MCHC Auto (RBC) [Mass/Vol]Or dered By: Guilherme Butt on 08-25-2022 MCHC (RBC) [Mass/Vol] 32.6 g/dL 32-36 [facility] No Panel InformationOrdered By: Guilherme Butt on 08-25-2022 Estimated GFR (MDRD) Amer 78 mL/min >60 [facility] Comment on above: GFR Calc Estimated GFR (MDRD) Non-Af Amer 64 mL/min >60 [facility] Comment on above: Non- GFR Calc Platelets bldOrdered By: Jamaal Butt on 08-25-2022 Platelets (Bld) [#/Vol] 176 10*3/uL 150-450 [facility] Serum or plasma calcium farshad urement (mass/volume)Ordered By: Guilherme Butt on 08-25-2022 Calcium [Mass/Vol] 8.7 mg/dL 8.5-10.1 [facility] Serum or plasma creatinine m easurement (mass/volume)Ordered By: Guilherme Butt on 08-25-2022 Creatinine [Mass/Vol] 1.17 mg/dL 0.70-1.30 [facility] Comment on above: The validity of the calculated GFR & GFRAA in patients over 70 years has not been determined. Clinical correlation is essential. Serum or plasma urea nitroge n measurement (mass/volume)Ordered By: Guilherme Butt on 08-25-2022 Urea nitrogen [Mass/Vol] 30 mg/dL 7-18 [facility] Thin prep Papanicolaou smear with manual screeningOrdered By: Guilherme Butt on 08-25-2022 Thin prep Papanicolaou smear with manual screening 4 5-15 [facility] Absolute lymphocyte countOrd ered By: Guilherme Butt on 07-21-2022 Lymphocytes Auto (Unsp spec) [#/Vol] 1.11 10*3/uL 0.83-4.51 [facility] Basophil percentageOrdered B y: Guilherme Butt on 07-21-2022 Basophils/100 WBC (Bld) 0.5 % 0-1 [facility] Chloride [Moles/Vol] 106 mmol/L 98-107 [facility] Eosinophils/100 WBC (Bld) 3.6 % 0-5 [facility] Glucose [Mass/Vol] 95 mg/dL 74-106 [facility] Neutrophils (Bld) [#/Vol] 2.5 10*3/uL 2.0-7.7 [facility] Neutrophils/100 WBC (Bld) 59.1 % 47-70 [facility] Potassium [Moles/Vol] 4.2 mmol/L 3.5-5.1 [facility] Sodium [Moles/Vol] 142 mmol/L 136-145 [facility] WBC (Bld) [#/Vol] 4.2 10*3/uL 4.4-11.0 [facility] Blood erythrocytes count (nu mber/volume)Ordered By: Guilherme Butt on 07-21-2022 RBC (Bld) [#/Vol] 4.10 10*6/uL 4.6-6.2 [facility] Blood hemoglobin measurement (mass/volume)Ordered By: Guilherme Butt on 07-21-2022 Hemoglobin (Bld) [Mass/Vol] 13.4 g/dL 13.0-16.5 [facility] Blood lymphocytes/100 leukoc ytesOrdered By: Guilherme Butt on 07-21-2022 Lymphocytes/100 WBC (Bld) 26.7 % 19-41 [facility] Blood monocytes/100 leukocyt esOrdered By: Guilherme Butt on 07-21-2022 Monocytes/100 WBC (Bld) 9.6 % 0-10 [facility] Blood platelet mean volumeOr dered By: Guilherme Butt on 07-21-2022 Platelet mean volume (Bld) [Entitic vol] 9.3 fL 6.2-12.0 [facility] Determination of erythrocyte mean corpuscular volume (MCV)Ordered By: Guilherme Butt on 07-21-2022 MCV (RBC) [Entitic vol] 95.1 fL 80-94 [facility] Hematocrit Auto (Bld) [Volum e fraction]Ordered By: Guilherme Butt on 07-21-2022 Hematocrit (Bld) [Volume fraction] 39.0 % 40-54 [facility] Laboratory - Chemistry and C hemistry - challengeOrdered By: Guilherme Butt on 07-21-2022 CO2 [Moles/Vol] 28.0 mmol/L 21.0-32.0 [facility] Urea nitrogen/Creatinine [Mass ratio] 30.0 mg/mg 10-20 [facility] Laboratory - Hematology and Cell countsOrdered By: Guilherme Butt on 07-21-2022 Erythrocyte distribution width (RBC) [Entitic vol] 44.6 fL 35.1-43.9 [facility] Erythrocyte distribution width (RBC) [Ratio] 12.8 % 11.6-14.6 [facility] Immature granulocytes/100 WBC (Bld) 0.500 % 0.0-0.9 [facility] Comment on above: IG% - Immature Granu locytes (promyelocytes, myelocytes and metamyelocytes) > 1% indicates that a LEFT SHIFT is Present. MCH (RBC) [Entitic mass] 32.7 pg 27.0-32.0 [facility] Nucleated RBC/100 WBC (Bld) [Ratio] 0 % 0-5 [facility] MCHC Auto (RBC) [Mass/Vol]Or dered By: Guilherme Butt on 07-21-2022 MCHC (RBC) [Mass/Vol] 34.4 g/dL 32-36 [facility] No Panel InformationOrdered By: Guilherme Butt on 07-21-2022 Estimated GFR (MDRD) Amer 101 mL/min >60 [facility] Comment on above: GFR Calc Estimated GFR (MDRD) Non-Af Amer 84 mL/min >60 [facility] Comment on above: Non- GFR Calc Platelets bldOrdered By: Jamaal Butt on 07-21-2022 Platelets (Bld) [#/Vol] 155 10*3/uL 150-450 [facility] Serum or plasma calcium farshad urement (mass/volume)Ordered By: Guilherme Butt on 07-21-2022 Calcium [Mass/Vol] 8.7 mg/dL 8.5-10.1 [facility] Serum or plasma creatinine m easurement (mass/volume)Ordered By: Guilherme Butt on 07-21-2022 Creatinine [Mass/Vol] 0.93 mg/dL 0.70-1.30 [facility] Comment on above: The validity of the calculated GFR & GFRAA in patients over 70 years has not been determined. Clinical correlation is essential. Serum or plasma urea nitroge n measurement (mass/volume)Ordered By: Guilherme Butt on 07-21-2022 Urea nitrogen [Mass/Vol] 28 mg/dL 7-18 [facility] Thin prep Papanicolaou smear with manual screeningOrdered By: [facility]-2022 Thin prep Papanicolaou smear with manual screening 8 5-15 [facility] Basophil percentageOrdered B y: Barton Living on 06-23-2022 Chloride [Moles/Vol] 105 mmol/L 98-107 [facility] Glucose [Mass/Vol] 100 mg/dL 74-106 [facility] Comment on above: Fasting Glucose resu lt from 100 to 125 mg/dL suggests IMPAIRED HOMEOSTASIS per A.D.A. criteria. Potassium [Moles/Vol] 4.5 mmol/L 3.5-5.1 [facility] Sodium [Moles/Vol] 142 mmol/L 136-145 [facility] WBC (Bld) [#/Vol] 6.2 10*3/uL 4.4-11.0 [facility] Blood erythrocytes count (nu mber/volume)Ordered By: Barton Living on 06-23-2022 RBC (Bld) [#/Vol] 4.28 10*6/uL 4.6-6.2 [facility] Blood hemoglobin measurement (mass/volume)Ordered By: Barton Living on 06-23-2022 Hemoglobin (Bld) [Mass/Vol] 13.6 g/dL 13.0-16.5 [facility] Blood platelet mean volumeOr dered By: Barton Living on 06-23-2022 Platelet mean volume (Bld) [Entitic vol] 9.3 fL 6.2-12.0 [facility] Determination of erythrocyte mean corpuscular volume (MCV)Ordered By: Barton Living on 06-23-2022 MCV (RBC) [Entitic vol] 97.9 fL 80-94 [facility] Hematocrit Auto (Bld) [Volum e fraction]Ordered By: Barton Living on 06-23-2022 Hematocrit (Bld) [Volume fraction] 41.9 % 40-54 [facility] Laboratory - Chemistry and C hemistry - challengeOrdered By: [facility] on 06-23-2022 CO2 [Moles/Vol] 32.0 mmol/L 21.0-32.0 [facility] Urea nitrogen/Creatinine [Mass ratio] 33.0 mg/mg 10-20 [facility] Laboratory - Hematology and Cell countsOrdered By: [facility] on 06-23-2022 Erythrocyte distribution width (RBC) [Entitic vol] 45.8 fL 35.1-43.9 [facility] Erythrocyte distribution width (RBC) [Ratio] 12.9 % 11.6-14.6 [facility] MCH (RBC) [Entitic mass] 31.8 pg 27.0-32.0 [facility] MCHC Auto (RBC) [Mass/Vol]Or dered By: Barton Living on 06-23-2022 MCHC (RBC) [Mass/Vol] 32.5 g/dL 32-36 [facility] No Panel InformationOrdered By: Barton Living on 06-23-2022 Estimated GFR (MDRD) Amer 84 mL/min >60 [facility] Comment on above: GFR Calc Estimated GFR (MDRD) Non-Af Amer 70 mL/min >60 [facility] Comment on above: Non- GFR Calc Platelets bldOrdered By: Sander parkinson Living on 06-23-2022 Platelets (Bld) [#/Vol] 183 10*3/uL 150-450 [facility] Serum or plasma calcium farshad urement (mass/volume)Ordered By: Barton Living on 06-23-2022 Calcium [Mass/Vol] 9.2 mg/dL 8.5-10.1 [facility] Serum or plasma creatinine m easurement (mass/volume)Ordered By: [facility] on 06-23-2022 Creatinine [Mass/Vol] 1.09 mg/dL 0.70-1.30 [facility] Comment on above: The validity of the calculated GFR & GFRAA in patients over 70 years has not been determined. Clinical correlation is essential. Serum or plasma urea nitroge n measurement (mass/volume)Ordered By: [facility] on 06-23-2022 Urea nitrogen [Mass/Vol] 36 mg/dL 7-18 [facility] Thin prep Papanicolaou smear with manual screeningOrdered By: [facility] on 06-23-2022 Thin prep Papanicolaou smear with manual screening 5 5-15 [facility] Basophil percentageOrdered B y: Maikel Mosquera on 05-26-2022 Chloride [Moles/Vol] 106 mmol/L 98-107 [facility] Glucose [Mass/Vol] 100 mg/dL 74-106 [facility] Comment on above: Fasting Glucose resu lt from 100 to 125 mg/dL suggests IMPAIRED HOMEOSTASIS per A.D.A. criteria. Potassium [Moles/Vol] 4.8 mmol/L 3.5-5.1 [facility] Sodium [Moles/Vol] 141 mmol/L 136-145 [facility] WBC (Bld) [#/Vol] 5.1 10*3/uL 4.4-11.0 [facility] Blood erythrocytes count (nu mber/volume)Ordered By: Maikel Mosquera on 05-26-2022 RBC (Bld) [#/Vol] 4.34 10*6/uL 4.6-6.2 [facility] Blood hemoglobin measurement (mass/volume)Ordered By: Maikel Mosquera on 05-26-2022 Hemoglobin (Bld) [Mass/Vol] 13.8 g/dL 13.0-16.5 [facility] Blood platelet mean volumeOr dered By: Maikel Mosquera on 05-26-2022 Platelet mean volume (Bld) [Entitic vol] 9.5 fL 6.2-12.0 [facility] Determination of erythrocyte mean corpuscular volume (MCV)Ordered By: Maikel Mosquera on 05-26-2022 MCV (RBC) [Entitic vol] 96.3 fL 80-94 [facility] Hematocrit Auto (Bld) [Volum e fraction]Ordered By: Maikel Mosquera on 05-26-2022 Hematocrit (Bld) [Volume fraction] 41.8 % 40-54 [facility] Laboratory - Chemistry and C hemistry - challengeOrdered By: Maikel Mosquera on 05-26-2022 CO2 [Moles/Vol] 30.0 mmol/L 21.0-32.0 [facility] Urea nitrogen/Creatinine [Mass ratio] 33.7 mg/mg 10-20 [facility] Laboratory - Hematology and Cell countsOrdered By: Maikel Mosquera on 05-26-2022 Erythrocyte distribution width (RBC) [Entitic vol] 44.0 fL 35.1-43.9 [facility] Erythrocyte distribution width (RBC) [Ratio] 12.5 % 11.6-14.6 [facility] MCH (RBC) [Entitic mass] 31.8 pg 27.0-32.0 [facility] MCHC Auto (RBC) [Mass/Vol]Or dered By: Maikel Mosquera on 05-26-2022 MCHC (RBC) [Mass/Vol] 33.0 g/dL 32-36 [facility] No Panel InformationOrdered By: Maikel Mosquera on 05-26-2022 Estimated GFR (MDRD) Amer 89 mL/min >60 [facility] Comment on above: GFR Calc Estimated GFR (MDRD) Non-Af Amer 74 mL/min >60 [facility] Comment on above: Non- GFR Calc Platelets bldOrdered By: Chance Mosquera on 05-26-2022 Platelets (Bld) [#/Vol] 185 10*3/uL 150-450 [facility] Serum or plasma calcium farshad urement (mass/volume)Ordered By: Maikel Mosquera on 05-26-2022 Calcium [Mass/Vol] 9.0 mg/dL 8.5-10.1 [facility] Serum or plasma creatinine m easurement (mass/volume)Ordered By: Maikel Mosquera on 05-26-2022 Creatinine [Mass/Vol] 1.04 mg/dL 0.70-1.30 [facility] Comment on above: The validity of the calculated GFR & GFRAA in patients over 70 years has not been determined. Clinical correlation is essential. Serum or plasma urea nitroge n measurement (mass/volume)Ordered By: Maikel Mosquera on 05-26-2022 Urea nitrogen [Mass/Vol] 35 mg/dL 7-18 [facility] Thin prep Papanicolaou smear with manual screeningOrdered By: Maikel Mosquera on 05-26-2022 Thin prep Papanicolaou smear with manual screening 5 5-15 [facility] Basophil percentageOrdered B y: Maikel Mosquera on 04-21-2022 Chloride [Moles/Vol] 108 mmol/L 98-107 [facility] Glucose [Mass/Vol] 104 mg/dL 74-106 [facility] Comment on above: Fasting Glucose resu lt from 100 to 125 mg/dL suggests IMPAIRED HOMEOSTASIS per A.D.A. criteria. Potassium [Moles/Vol] 4.3 mmol/L 3.5-5.1 [facility] Sodium [Moles/Vol] 142 mmol/L 136-145 [facility] WBC (Bld) [#/Vol] 4.4 10*3/uL 4.4-11.0 [facility] Blood erythrocytes count (nu mber/volume)Ordered By: Maikel Mosquera on 04-21-2022 RBC (Bld) [#/Vol] 4.18 10*6/uL 4.6-6.2 [facility] Blood hemoglobin measurement (mass/volume)Ordered By: Maikel Mosquera on 04-21-2022 Hemoglobin (Bld) [Mass/Vol] 13.2 g/dL 13.0-16.5 [facility] Blood platelet mean volumeOr dered By: Maikel Mosquera on 04-21-2022 Platelet mean volume (Bld) [Entitic vol] 9.6 fL 6.2-12.0 [facility] Determination of erythrocyte mean corpuscular volume (MCV)Ordered By: Maikel Mosquera on 04-21-2022 MCV (RBC) [Entitic vol] 97.1 fL 80-94 [facility] Hematocrit Auto (Bld) [Volum e fraction]Ordered By: Maikel Mosquera on 04-21-2022 Hematocrit (Bld) [Volume fraction] 40.6 % 40-54 [facility] Laboratory - Chemistry and C hemistry - challengeOrdered By: Maikel Mosquera on 04-21-2022 CO2 [Moles/Vol] 30.0 mmol/L 21.0-32.0 [facility] Urea nitrogen/Creatinine [Mass ratio] 33.0 mg/mg 10-20 [facility] Laboratory - Hematology and Cell countsOrdered By: Maikel Mosquera on 04-21-2022 Erythrocyte distribution width (RBC) [Entitic vol] 46.2 fL 35.1-43.9 [facility] Erythrocyte distribution width (RBC) [Ratio] 12.9 % 11.6-14.6 [facility] MCH (RBC) [Entitic mass] 31.6 pg 27.0-32.0 [facility] MCHC Auto (RBC) [Mass/Vol]Or dered By: Maikel Mosquera on 04-21-2022 MCHC (RBC) [Mass/Vol] 32.5 g/dL 32-36 [facility] No Panel InformationOrdered By: Maikel Mosquera on 04-21-2022 Estimated GFR (MDRD) Amer 90 mL/min >60 [facility] Comment on above: GFR Calc Estimated GFR (MDRD) Non-Af Amer 75 mL/min >60 [facility] Comment on above: Non- GFR Calc Platelets bldOrdered By: Chance Mosquera on 04-21-2022 Platelets (Bld) [#/Vol] 177 10*3/uL 150-450 [facility] Serum or plasma calcium farshad urement (mass/volume)Ordered By: Maikel Mosquera on 04-21-2022 Calcium [Mass/Vol] 9.1 mg/dL 8.5-10.1 [facility] Serum or plasma creatinine m easurement (mass/volume)Ordered By: Maikel Mosquera on 04-21-2022 Creatinine [Mass/Vol] 1.03 mg/dL 0.70-1.30 [facility] Comment on above: The validity of the calculated GFR & GFRAA in patients over 70 years has not been determined. Clinical correlation is essential. Serum or plasma urea nitroge n measurement (mass/volume)Ordered By: Maikel Mosquera on 04-21-2022 Urea nitrogen [Mass/Vol] 34 mg/dL 7-18 [facility] Thin prep Papanicolaou smear with manual screeningOrdered By: Maikel Mosquera on 04-21-2022 Thin prep Papanicolaou smear with manual screening 4 5-15 [facility] Absolute lymphocyte countOrd ered By: Dr. Sanchez on 04-03-2022 Lymphocytes Auto (Unsp spec) [#/Vol] 1.15 10*3/uL 0.83-4.51 [facility] Basophil percentageOrdered B y: Dr. Sanchez on 04-03-2022 Basophils/100 WBC (Bld) 0.4 % 0-1 [facility] Chloride [Moles/Vol] 106 mmol/L 98-107 [facility] Eosinophils/100 WBC (Bld) 3.3 % 0-5 [facility] Glucose [Mass/Vol] 140 mg/dL 74-106 [facility] Comment on above: Fasting Glucose resu lt greater than or equal to 126 mg/dL suggests DIABETES MELLITUS per A.D.A. criteria. Neutrophils (Bld) [#/Vol] 2.9 10*3/uL 2.0-7.7 [facility] Neutrophils/100 WBC (Bld) 63.1 % 47-70 [facility] Potassium [Moles/Vol] 4.2 mmol/L 3.5-5.1 [facility] Sodium [Moles/Vol] 142 mmol/L 136-145 [facility] WBC (Bld) [#/Vol] 4.6 10*3/uL 4.4-11.0 [facility] Blood erythrocytes count (nu mber/volume)Ordered By: Dr. Sanchez on 04-03-2022 RBC (Bld) [#/Vol] 4.45 10*6/uL 4.6-6.2 [facility] Blood hemoglobin measurement (mass/volume)Ordered By: Dr. Sanchez on 04-03-2022 Hemoglobin (Bld) [Mass/Vol] 14.1 g/dL 13.0-16.5 [facility] Blood lymphocytes/100 leukoc ytesOrdered By: Dr. Sanchez on 04-03-2022 Lymphocytes/100 WBC (Bld) 25.3 % 19-41 [facility] Blood monocytes/100 leukocyt esOrdered By: Dr. Sanchez on 04-03-2022 Monocytes/100 WBC (Bld) 7.7 % 0-10 [facility] Blood platelet mean volumeOr dered By: Dr. Sanchez on 04-03-2022 Platelet mean volume (Bld) [Entitic vol] 9.3 fL 6.2-12.0 [facility] Determination of erythrocyte mean corpuscular volume (MCV)Ordered By: Dr. Sanchez on 04-03-2022 MCV (RBC) [Entitic vol] 95.5 fL 80-94 [facility] Hematocrit Auto (Bld) [Volum e fraction]Ordered By: Dr. Sanchez on 04-03-2022 Hematocrit (Bld) [Volume fraction] 42.5 % 40-54 [facility] Laboratory - Chemistry and C hemistry - challengeOrdered By: Dr. Sanchez on 04-03-2022 CO2 [Moles/Vol] 31.0 mmol/L 21.0-32.0 [facility] Urea nitrogen/Creatinine [Mass ratio] 30.7 mg/mg 10-20 [facility] Laboratory - Hematology and Cell countsOrdered By: Dr. Sanchez on 04-03-2022 Erythrocyte distribution width (RBC) [Entitic vol] 45.9 fL 35.1-43.9 [facility] Erythrocyte distribution width (RBC) [Ratio] 12.9 % 11.6-14.6 [facility] Immature granulocytes/100 WBC (Bld) 0.200 % 0.0-0.9 [facility] Comment on above: IG% - Immature Granu locytes (promyelocytes, myelocytes and metamyelocytes) > 1% indicates that a LEFT SHIFT is Present. MCH (RBC) [Entitic mass] 31.7 pg 27.0-32.0 [facility] [facility] Nucleated RBC/100 WBC (Bld) [Ratio] 0 % 0-5 [facility] MCHC Auto (RBC) [Mass/Vol]Or dered By: Dr. Sanchez on 04-03-2022 MCHC (RBC) [Mass/Vol] 33.2 g/dL 32-36 [facility] No Panel InformationOrdered By: Dr. Sanchez on 04-03-2022 Troponin I High Sensitivity 7 pg/mL 3.0-78.0 [facility] Comment on above: Please Note: New [place] t Units and Gender Specific Reference Ranges. For more information see Policy Stat Procedure [place] High Sensitivity Troponin (TNIH) and attachments. Estimated Creatinine Clearance Calc 70.39 ml/min [facility] Estimated GFR (MDRD) Amer 96 mL/min >60 [facility] Comment on above: GFR Calc Estimated GFR (MDRD) Non-Af Amer 79 mL/min >60 [facility] Comment on above: Non- GFR Calc Platelets bldOrdered By: Dr. Sanchez on 04-03-2022 Platelets (Bld) [#/Vol] 173 10*3/uL 150-450 [facility] Serum or plasma calcium farshad urement (mass/volume)Ordered By: Dr. Sanchez on 04-03-2022 Calcium [Mass/Vol] 9.1 mg/dL 8.5-10.1 [facility] Serum or plasma creatinine m easurement (mass/volume)Ordered By: Dr. Sanchez on 04-03-2022 Creatinine [Mass/Vol] 0.98 mg/dL 0.70-1.30 [facility] Comment on above: The validity of the calculated GFR & GFRAA in patients over 70 years has not been determined. Clinical correlation is essential. Serum or plasma urea nitroge n measurement (mass/volume)Ordered By: Dr. Sanchez on 04-03-2022 Urea nitrogen [Mass/Vol] 30 mg/dL 7-18 [facility] Thin prep Papanicolaou smear with manual screeningOrdered By: Dr. Sanchez on 04-03-2022 Thin prep Papanicolaou smear with manual screening 5 5-15 [facility] Basophil percentageOrdered B y: Maikel Mosquera on 03-24-2022 Chloride [Moles/Vol] 105 mmol/L 98-107 [facility] Glucose [Mass/Vol] 85 mg/dL 74-106 [facility] Potassium [Moles/Vol] 4.7 mmol/L 3.5-5.1 [facility] Sodium [Moles/Vol] 140 mmol/L 136-145 [facility] WBC (Bld) [#/Vol] 4.9 10*3/uL 4.4-11.0 [facility] Blood erythrocytes count (nu mber/volume)Ordered By: Maikel Mosquera on 03-24-2022 RBC (Bld) [#/Vol] 4.14 10*6/uL 4.6-6.2 [facility] Blood hemoglobin measurement (mass/volume)Ordered By: Maikel Mosquera on 03-24-2022 Hemoglobin (Bld) [Mass/Vol] 13.0 g/dL 13.0-16.5 [facility] Blood platelet mean volumeOr dered By: Maikel Mosquera on 03-24-2022 Platelet mean volume (Bld) [Entitic vol] 9.5 fL 6.2-12.0 [facility] Determination of erythrocyte mean corpuscular volume (MCV)Ordered By: Maikel Mosquera on 03-24-2022 MCV (RBC) [Entitic vol] 94.9 fL 80-94 [facility] Hematocrit Auto (Bld) [Volum e fraction]Ordered By: Maikel Mosquera on 03-24-2022 Hematocrit (Bld) [Volume fraction] 39.3 % 40-54 [facility] Laboratory - Chemistry and C hemistry - challengeOrdered By: Maikel Mosquera on 03-24-2022 CO2 [Moles/Vol] 30.0 mmol/L 21.0-32.0 [facility] Urea nitrogen/Creatinine [Mass ratio] 29.8 mg/mg 10-20 [facility] Laboratory - Hematology and Cell countsOrdered By: Maikel Mosquera on 03-24-2022 Erythrocyte distribution width (RBC) [Entitic vol] 45.6 fL 35.1-43.9 [facility] Erythrocyte distribution width (RBC) [Ratio] 13.1 % 11.6-14.6 [facility] MCH (RBC) [Entitic mass] 31.4 pg 27.0-32.0 [facility] MCHC Auto (RBC) [Mass/Vol]Or dered By: Maikel Mosquera on 03-24-2022 MCHC (RBC) [Mass/Vol] 33.1 g/dL 32-36 [facility] No Panel InformationOrdered By: Maikel Mosquera on 03-24-2022 Estimated GFR (MDRD) Amer 89 mL/min >60 [facility] Comment on above: GFR Calc Estimated GFR (MDRD) Non-Af Amer 74 mL/min >60 [facility] Comment on above: Non- GFR Calc Platelets bldOrdered By: Chance Mosquera on 03-24-2022 Platelets (Bld) [#/Vol] 169 10*3/uL 150-450 [facility] Serum or plasma calcium farshad urement (mass/volume)Ordered By: Maikel Mosquera on 03-24-2022 Calcium [Mass/Vol] 8.8 mg/dL 8.5-10.1 [facility] Serum or plasma creatinine m easurement (mass/volume)Ordered By: Maikel Mosquera on 03-24-2022 Creatinine [Mass/Vol] 1.04 mg/dL 0.70-1.30 [facility] Comment on above: The validity of the calculated GFR & GFRAA in patients over 70 years has not been determined. Clinical correlation is essential. Serum or plasma urea nitroge n measurement (mass/volume)Ordered By: Maikel Mosquera on 03-24-2022 Urea nitrogen [Mass/Vol] 31 mg/dL 7-18 [facility] Thin prep Papanicolaou smear with manual screeningOrdered By: Maikel Mosquera on 03-24-2022 Thin prep Papanicolaou smear with manual screening 5 5-15 [facility] Basophil percentageOrdered B y: Maikel Mosquera on 02-24-2022 Chloride [Moles/Vol] 107 mmol/L 98-107 [facility] Glucose [Mass/Vol] 87 mg/dL 74-106 [facility] Potassium [Moles/Vol] 4.8 mmol/L 3.5-5.1 [facility] Sodium [Moles/Vol] 141 mmol/L 136-145 [facility] WBC (Bld) [#/Vol] 5.2 10*3/uL 4.4-11.0 [facility] Blood erythrocytes count (nu mber/volume)Ordered By: Maikel Mosquera on 02-24-2022 RBC (Bld) [#/Vol] 4.39 10*6/uL 4.6-6.2 [facility] Blood hemoglobin measurement (mass/volume)Ordered By: Maikel Mosquera on 02-24-2022 Hemoglobin (Bld) [Mass/Vol] 14.3 g/dL 13.0-16.5 [facility] Blood platelet mean volumeOr dered By: Maikel Mosquera on 02-24-2022 Platelet mean volume (Bld) [Entitic vol] 9.2 fL 6.2-12.0 [facility] Determination of erythrocyte mean corpuscular volume (MCV)Ordered By: Maikel Mosquera on 02-24-2022 MCV (RBC) [Entitic vol] 95.4 fL 80-94 [facility] Hematocrit Auto (Bld) [Volum e fraction]Ordered By: Maikel Mosquera on 02-24-2022 Hematocrit (Bld) [Volume fraction] 41.9 % 40-54 [facility] Laboratory - Chemistry and C hemistry - challengeOrdered By: Maikel Mosquera on 02-24-2022 CO2 [Moles/Vol] 30.0 mmol/L 21.0-32.0 [facility] Urea nitrogen/Creatinine [Mass ratio] 27.5 mg/mg 10-20 [facility] Laboratory - Hematology and Cell countsOrdered By: Maikel Mosquera on 02-24-2022 Erythrocyte distribution width (RBC) [Entitic vol] 44.2 fL 35.1-43.9 [facility] Erythrocyte distribution width (RBC) [Ratio] 12.6 % 11.6-14.6 [facility] MCH (RBC) [Entitic mass] 32.6 pg 27.0-32.0 [facility] MCHC Auto (RBC) [Mass/Vol]Or dered By: Maikel Mosquera on 02-24-2022 MCHC (RBC) [Mass/Vol] 34.1 g/dL 32-36 [facility] No Panel InformationOrdered By: Maikel Mosquera on 02-24-2022 Estimated GFR (MDRD) Amer 91 mL/min >60 [facility] Comment on above: GFR Calc Estimated GFR (MDRD) Non-Af Amer 75 mL/min >60 [facility] Comment on above: Non- GFR Calc Platelets bldOrdered By: Chance Mosquera on 02-24-2022 Platelets (Bld) [#/Vol] 162 10*3/uL 150-450 [facility] Serum or plasma calcium farshad urement (mass/volume)Ordered By: Maikel Mosquera on 02-24-2022 Calcium [Mass/Vol] 9.1 mg/dL 8.5-10.1 [facility] Serum or plasma creatinine m easurement (mass/volume)Ordered By: Maikel Mosquera on 02-24-2022 Creatinine [Mass/Vol] 1.02 mg/dL 0.70-1.30 [facility] Comment on above: The validity of the calculated GFR & GFRAA in patients over 70 years has not been determined. Clinical correlation is essential. Serum or plasma urea nitroge n measurement (mass/volume)Ordered By: Maikel Mosquera on 02-24-2022 Urea nitrogen [Mass/Vol] 28 mg/dL 7-18 [facility] Thin prep Papanicolaou smear with manual screeningOrdered By: Maikel Mosquera on 02-24-2022 Thin prep Papanicolaou smear with manual screening 4 5-15 [facility] Basophil percentageon 2021 Bilirubin [Mass/Vol] 0.50 mg/dL 0.20-1.00 [facility] Work Phone: Comment on above: For patients on eltr ombopag therapy, use of Dimension [place] TBIL is not recommended. Cholesterol [Mass/Vol] 184 mg/dL <200 [facility] Work Phone: Comment on above: <200 mg/dL Desirable 200-240 mg/dL Borderline >240 mg/dL High Risk Protein [Mass/Vol] 6.3 g/dL 6.4-8.2 [facility] Work Phone: Triglyceride [Mass/Vol] 103 mg/dL <199 [facility] Work Phone: Comment on above: The drugs N-Acetylcy steine and Metamizole may falsely depress this assay.Serum Triglycerides Reference Interval Normal <150 mg/dL Borderline high 150 - 199 mg/dL High 200 - 499 mg/dL Very High > or = 500 mg/dL Direct bilirubinon 2 Bilirubin.direct [Mass/Vol] 0.12 mg/dL 0.00-0.30 [facility] Work Phone: Laboratory - Chemistry and C hemistry - challengeon 02-07-2022 ALP [Catalytic activity/Vol] 118 U/L 45-117 [facility] Work Phone: ALT [Catalytic activity/Vol] 8 U/L 16-61 [facility] Work Phone: Free T4 [Mass/Vol] 0.87 ng/dL 0.76-1.46 [facility] Work Phone: Globulin (S) [Mass/Vol] 3.0 g/dL 2.2-4.2 [facility] Work Phone: No Panel Informationon 02-07 Thyroid Stimulating Hormone (TSH) 0.81 uIU/mL 0.358-3.74 [facility] Work Phone: Serum or plasma albumin farshad urement (mass/volume)on 02-07-2022 Albumin [Mass/Vol] 3.3 g/dL 3.2-5.0 [facility] Work Phone: Serum or plasma cholesterol in HDL measurement (mass/volume)on 02-07-2022 Cholesterol in HDL [Mass/Vol] 44 mg/dL >40 [facility] Work Phone: Comment on above: The drugs N-Acetylcy steine and Metamizole may falsely depress this assay. Reference Range HDL <40 mg/dL Low HDL Cholesterol HDL >or= 60 mg/dL High HDL Cholesterol Serum or plasma cholesterol in VLDL measurement (mass/volume)on 02-07-2022 Cholesterol in VLDL [Mass/Vol] 21 mg/dL 5-40 [facility] Work Phone: Serum or plasma low density lipoprotein (LDL) cholesterol measurement (mass/volume)on 02-07-2022 Cholesterol in LDL [Mass/Vol] 119 mg/dL 0-130 [facility] Work Phone: Thin prep Papanicolaou smear with manual screeningon 02-07-2022 Thin prep Papanicolaou smear with manual screening 12 U/L 15-37 [facility] Work Phone: Whole blood hemoglobin A1c/t otal hemoglobin ratio (mass fraction)on 02-07-2022 HbA1c (Bld) [Mass fraction] 5.6 % 3.8-5.6 [facility] Work Phone: Comment on above: Normal < 5.7 % Predi abetic 5.7 - 6.4 % Diabetic >or= 6.5 % Please note range changes. Basophil percentageon 2021 Chloride [Moles/Vol] 104 mmol/L 98-[address] [facility] Work Phone: Glucose [Mass/Vol] 87 mg/dL 74-106 [facility] Work Phone: Potassium [Moles/Vol] 4.3 mmol/L 3.5-5.1 [facility] Work Phone: Sodium [Moles/Vol] 140 mmol/L 136-145 [facility] Work Phone: WBC (Bld) [#/Vol] 4.6 10*3/uL 4.4-11.0 [facility] Work Phone: Blood erythrocytes count (nu mber/volume)on 01-20-2022 RBC (Bld) [#/Vol] 4.17 10*6/uL 4.6-6.2 [facility] Work [facility]: Blood hemoglobin measurement (mass/volume)on 01-20-2022 Hemoglobin (Bld) [Mass/Vol] 13.2 g/dL 13.0-16.5 [facility] Work Phone: Blood platelet mean volumeon 01-20-2022 Platelet mean volume (Bld) [Entitic vol] 9.2 fL 6.2-12.0 [facility] Work Phone: Determination of erythrocyte mean corpuscular volume (MCV)on 01-20-2022 MCV (RBC) [Entitic vol] 93.0 fL 80-94 [facility] Work Phone: Hematocrit Auto (Bld) [Volum e fraction]on 01-20-2022 Hematocrit (Bld) [Volume fraction] 38.8 % 40-54 [facility] Work Phone: Laboratory - Chemistry and C hemistry - challengeon 01-20-2022 CO2 [Moles/Vol] 29.0 mmol/L 21.0-32.0 [facility] Work Phone: Urea nitrogen/Creatinine [Mass ratio] 28.6 mg/mg 10-20 [facility] Work Phone: Laboratory - Hematology and Cell countson 01-20-2022 Erythrocyte distribution width (RBC) [Entitic vol] 42.7 fL 35.1-43.9 [facility] Work Phone: Erythrocyte distribution width (RBC) [Ratio] 12.6 % 11.6-14.6 [facility] Work Phone: MCH (RBC) [Entitic mass] 31.7 pg 27.0-32.0 [facility] Work Phone: MCHC Auto (RBC) [Mass/Vol]on 01-20-2022 MCHC (RBC) [Mass/Vol] 34.0 g/dL 32-36 [facility] Work Phone: No Panel Informationon 01-20 Estimated GFR (MDRD) Amer 100 mL/min >60 [facility] Work Phone: Comment on above: GFR Calc Estimated GFR (MDRD) Non-Af Amer 82 mL/min >60 [facility] Work Phone: Comment on above: Non- GFR Calc Platelets bldon 01-20-2022 Platelets (Bld) [#/Vol] 178 10*3/uL 150-450 [facility] Work Phone: Serum or plasma calcium farshad urement (mass/volume)on 01-20-2022 Calcium [Mass/Vol] 9.0 mg/dL 8.5-10.1 [facility] Work Phone: Serum or plasma creatinine m easurement (mass/volume)on 01-20-2022 Creatinine [Mass/Vol] 0.94 mg/dL 0.70-1.30 [facility] Work Phone: Comment on above: The validity of the calculated GFR & GFRAA in patients over 70 years has not been determined. Clinical correlation is essential. Serum or plasma urea nitroge n measurement (mass/volume)on 01-20-2022 Urea nitrogen [Mass/Vol] 27 mg/dL 7-18 [facility] Work Phone: Thin prep Papanicolaou smear with manual screeningon 01-20-2022 Thin prep Papanicolaou smear with manual screening 7 5-15 [facility] Work Phone: Basophil percentageon 2021 Chloride [Moles/Vol] 105 mmol/L 98-107 [facility] Work Phone: Glucose [Mass/Vol] 89 mg/dL 74-106 [facility] Work Phone: Potassium [Moles/Vol] 4.2 mmol/L 3.5-5.1 [facility] Work Phone: Sodium [Moles/Vol] 138 mmol/L 136-145 [facility] Work Phone: WBC (Bld) [#/Vol] 4.2 10*3/uL 4.4-11.0 [facility] Work Phone: Blood erythrocytes count (nu mber/volume)on 12-23-2021 RBC (Bld) [#/Vol] 4.15 10*6/uL 4.6-6.2 [facility] Work Phone: Blood hemoglobin measurement (mass/volume)on 12-23-2021 Hemoglobin (Bld) [Mass/Vol] 13.5 g/dL 13.0-16.5 [facility] Work Phone: Blood platelet mean volumeon 12-23-2021 Platelet mean volume (Bld) [Entitic vol] 9.3 fL 6.2-12.0 [facility] Work Phone: Determination of erythrocyte mean corpuscular volume (MCV)on 12-23-2021 MCV (RBC) [Entitic vol] 94.5 fL 80-94 [facility] Work Phone: Hematocrit Auto (Bld) [Volum e fraction]on 12-23-2021 Hematocrit (Bld) [Volume fraction] 39.2 % 40-54 [facility] Work Phone: Laboratory - Chemistry and C hemistry - challengeon 12-23-2021 CO2 [Moles/Vol] 29.0 mmol/L 21.0-32.0 [facility] Work Phone: Urea nitrogen/Creatinine [Mass ratio] 35.5 mg/mg 10-20 [facility] Work Phone: Laboratory - Hematology and Cell countson 12-23-2021 Erythrocyte distribution width (RBC) [Entitic vol] 43.9 fL 35.1-43.9 [facility] Work Phone: Erythrocyte distribution width (RBC) [Ratio] 12.7 % 11.6-14.6 [facility] Work Phone: MCH (RBC) [Entitic mass] 32.5 pg 27.0-32.0 [facility] Work Phone: MCHC Auto (RBC) [Mass/Vol]on 12-23-2021 MCHC (RBC) [Mass/Vol] 34.4 g/dL 32-36 [facility] Work Phone: No Panel Informationon 12-23 Estimated GFR (MDRD) Amer 114 mL/min >60 [facility] Work Phone: Comment on above: GFR Calc Estimated GFR (MDRD) Non-Af Amer 94 mL/min >60 [facility] Work Phone: Comment on above: Non- GFR Calc Platelets bldon 12-23-2021 Platelets (Bld) [#/Vol] 173 10*3/uL 150-450 [facility] Work Phone: Serum or plasma calcium farshad urement (mass/volume)on 12-23-2021 Calcium [Mass/Vol] 8.9 mg/dL 8.5-10.1 [facility] Work Phone: Serum or plasma creatinine m easurement (mass/volume)on 12-23-2021 Creatinine [Mass/Vol] 0.84 mg/dL 0.70-1.30 [facility] Work Phone: Comment on above: The validity of the calculated GFR & GFRAA in patients over 70 years has not been determined. Clinical correlation is essential. Serum or plasma urea nitroge n measurement (mass/volume)on 12-23-2021 Urea nitrogen [Mass/Vol] 30 mg/dL 7-18 [facility] Work Phone: Thin prep Papanicolaou smear with manual screeningon 12-23-2021 Thin prep Papanicolaou smear with manual screening 4 5-15 [facility] Work Phone: Basophil percentageon 2021 Chloride [Moles/Vol] 108 mmol/L 98-107 [facility] Work Phone: Glucose [Mass/Vol] 85 mg/dL 74-106 [facility] Work Phone: Potassium [Moles/Vol] 4.5 mmol/L 3.5-5.1 [facility] Work Phone: Sodium [Moles/Vol] 142 mmol/L 136-145 [facility] Work Phone: WBC (Bld) [#/Vol] 4.4 10*3/uL 4.4-11.0 [facility] Work Phone: Blood erythrocytes count (nu mber/volume)on 11-18-2021 RBC (Bld) [#/Vol] 4.00 10*6/uL 4.6-6.2 [facility] Work Phone: Blood hemoglobin measurement (mass/volume)on 11-18-2021 Hemoglobin (Bld) [Mass/Vol] 12.6 g/dL 13.0-16.5 [facility] Work Phone: Blood platelet mean volumeon 11-18-2021 Platelet mean volume (Bld) [Entitic vol] 9.5 fL 6.2-12.0 [facility] Work Phone: Determination of erythrocyte mean corpuscular volume (MCV)on 11-18-2021 MCV (RBC) [Entitic vol] 93.8 fL 80-94 [facility] Work Phone: Hematocrit Auto (Bld) [Volum e fraction]on 11-18-2021 Hematocrit (Bld) [Volume fraction] 37.5 % 40-54 [facility] Work Phone: Laboratory - Chemistry and C hemistry - challengeon 11-18-2021 CO2 [Moles/Vol] 32.0 mmol/L 21.0-32.0 [facility] Work Phone: Urea nitrogen/Creatinine [Mass ratio] 31.3 mg/mg 10-20 [facility] Work Phone: Laboratory - Hematology and Cell countson 11-18-2021 Erythrocyte distribution width (RBC) [Entitic vol] 44.8 fL 35.1-43.9 [facility] Work Phone: Erythrocyte distribution width (RBC) [Ratio] 13.1 % 11.6-14.6 [facility] Work Phone: MCH (RBC) [Entitic mass] 31.5 pg 27.0-32.0 [facility] Work Phone: MCHC Auto (RBC) [Mass/Vol]on 11-18-2021 MCHC (RBC) [Mass/Vol] 33.6 g/dL 32-36 [facility] Work Phone: No Panel Informationon 11-18 Estimated GFR (MDRD) Amer 98 mL/min >60 [facility] Work Phone: Comment on above: GFR Calc Estimated GFR (MDRD) Non-Af Amer 81 mL/min >60 [facility] Work Phone: Comment on above: Non- GFR Calc Platelets bldon 11-18-2021 Platelets (Bld) [#/Vol] 175 10*3/uL 150-450 [facility] Work Phone: Serum or plasma calcium farshad urement (mass/volume)on 11-18-2021 Calcium [Mass/Vol] 9.1 mg/dL 8.5-10.1 [facility] Work Phone: Serum or plasma creatinine m easurement (mass/volume)on 11-18-2021 Creatinine [Mass/Vol] 0.96 mg/dL 0.70-1.30 [facility] Work Phone: Comment on above: The validity of the calculated GFR & GFRAA in patients over 70 years has not been determined. Clinical correlation is essential. Serum or plasma urea nitroge n measurement (mass/volume)on 11-18-2021 Urea nitrogen [Mass/Vol] 30 mg/dL 7-18 [facility] Work Phone: Thin prep Papanicolaou smear with manual screeningon 11-18-2021 Thin prep Papanicolaou smear with manual screening 2 5-15 [facility] Work Phone: Basophil percentageon 2021 Chloride [Moles/Vol] 107 mmol/L 98-107 [facility] Work Phone: Glucose [Mass/Vol] 94 mg/dL 74-106 [facility] Work Phone: Potassium [Moles/Vol] 4.3 mmol/L 3.5-5.1 [facility] Work Phone: Sodium [Moles/Vol] 140 mmol/L 136-145 [facility] Work Phone: WBC (Bld) [#/Vol] 4.4 10*3/uL 4.4-11.0 [facility] Work Phone: Blood erythrocytes count (nu mber/volume)on 10-21-2021 RBC (Bld) [#/Vol] 4.01 10*6/uL 4.6-6.2 [facility] Work Phone: Blood hemoglobin measurement (mass/volume)on 10-21-2021 Hemoglobin (Bld) [Mass/Vol] 12.7 g/dL 13.0-16.5 [facility] Work Phone: Blood platelet mean volumeon 10-21-2021 Platelet mean volume (Bld) [Entitic vol] 9.1 fL 6.2-12.0 [facility] Work Phone: Determination of erythrocyte mean corpuscular volume (MCV)on 10-21-2021 MCV (RBC) [Entitic vol] 96.8 fL 80-94 [facility] Work Phone: Hematocrit Auto (Bld) [Volum e fraction]on 10-21-2021 Hematocrit (Bld) [Volume fraction] 38.8 % 40-54 [facility] Work Phone: Laboratory - Chemistry and C hemistry - challengeon 10-21-2021 CO2 [Moles/Vol] 31.0 mmol/L 21.0-32.0 [facility] Work Phone: Urea nitrogen/Creatinine [Mass ratio] 27.8 mg/mg 10-20 [facility] Work Phone: Laboratory - Hematology and Cell countson 10-21-2021 Erythrocyte distribution width (RBC) [Entitic vol] 44.9 fL 35.1-43.9 [facility] Work Phone: Erythrocyte distribution width (RBC) [Ratio] 12.6 % 11.6-14.6 [facility] Work Phone: MCH (RBC) [Entitic mass] 31.7 pg 27.0-32.0 [facility] Work Phone: MCHC Auto (RBC) [Mass/Vol]on 10-21-2021 MCHC (RBC) [Mass/Vol] 32.7 g/dL 32-36 [facility] Work Phone: No Panel Informationon 10-21 Estimated GFR (MDRD) Amer 97 mL/min >60 [facility] Work Phone: Comment on above: GFR Calc Estimated GFR (MDRD) Non-Af Amer 80 mL/min >60 [facility] Work Phone: Comment on above: Non- GFR Calc Platelets bldon 10-21-2021 Platelets (Bld) [#/Vol] 273 10*3/uL 150-450 [facility] Work Phone: Serum or plasma calcium farshad urement (mass/volume)on 10-21-2021 Calcium [Mass/Vol] 9.1 mg/dL 8.5-10.1 oste [facility] Work Phone: Serum or plasma creatinine m easurement (mass/volume)on 10-21-2021 Creatinine [Mass/Vol] 0.97 mg/dL 0.70-1.30 [facility] Work Phone: Comment on above: The validity of the calculated GFR & GFRAA in patients over 70 years has not been determined. Clinical correlation is essential. Serum or plasma urea nitroge n measurement (mass/volume)on 10-21-2021 Urea nitrogen [Mass/Vol] 27 mg/dL 7-18 [facility] Work Phone: Thin prep Papanicolaou smear with manual screeningon 10-21-2021 Thin prep Papanicolaou smear with manual screening 2 5-15 [facility] Work Phone: Absolute lymphocyte counton 10-02-2021 Lymphocytes Auto (Unsp spec) [#/Vol] 0.52 10*3/uL 0.83-4.51 [facility] Work Phone: Basophil percentageon 2021 Basophil percentage 0-5 SEEN /hpf 0-5 [facility] Work Phone: Basophils/100 WBC (Bld) 0.1 % 0-1 [facility] Work Phone: Bilirubin [Mass/Vol] 1.30 mg/dL 0.20-1.00 [facility] Work Phone: Comment on above: For patients on eltr ombopag therapy, use of Dimension [place] TBIL is not recommended. Chloride [Moles/Vol] 104 mmol/L 98-107 [facility] Work Phone: [phone] Eosinophils/100 WBC (Bld) 0.1 % 0-5 [facility] Work Phone: [phone] Glucose [Mass/Vol] 135 mg/dL 74-106 [facility] Work Phone: Comment on above: Fasting Glucose resu lt greater than or equal to 126 mg/dL suggests DIABETES MELLITUS per A.D.A. criteria. Neutrophils (Bld) [#/Vol] 10.9 10*3/uL 2.0-7.7 [facility] Work Phone: Neutrophils/100 WBC (Bld) 91.6 % 47-70 [facility] Work Phone: [phone] Potassium [Moles/Vol] 4.1 mmol/L 3.5-5.1 [facility] Work Phone: Protein [Mass/Vol] 7.0 g/dL 6.4-8.2 [facility] Work Phone: Sodium [Moles/Vol] 136 mmol/L 136-145 [facility] Work Phone: WBC (Bld) [#/Vol] 11.9 10*3/uL 4.4-11.0 [facility] Work Phone: Bilirubin Test strip Ql (U)o n 10-02-2021 Bilirubin Ql (U) Negative Negative [facility] Work Phone: Blood erythrocytes count (nu mber/volume)on 10-02-2021 RBC (Bld) [#/Vol] 4.20 10*6/uL 4.6-6.2 [facility] Work Phone: Blood hemoglobin measurement (mass/volume)on 10-02-2021 Hemoglobin (Bld) [Mass/Vol] 13.7 g/dL 13.0-16.5 [facility] Work Phone: Blood lymphocytes/100 leukoc yteson 10-02-2021 Lymphocytes/100 WBC (Bld) 4.4 % 19-41 [facility] Work Phone: Blood manual differential co mment interpretation (narrative result)on 10-02-2021 Manual differential comment Jordi (Bld) [Interp] SCANNED [facility] Work Phone: Comment on above: LYMPHOPENIA NOTED Blood monocytes/100 leukocyt eson 10-02-2021 Monocytes/100 WBC (Bld) 3.3 % 0-10 [facility] Work Phone: Blood platelet mean volumeon 10-02-2021 Platelet mean volume (Bld) [Entitic vol] 9.0 fL 6.2-12.0 [facility] Work Phone: Determination of erythrocyte mean corpuscular volume (MCV)on 10-02-2021 MCV (RBC) [Entitic vol] 92.6 fL 80-94 [facility] Work Phone: Hematocrit Auto (Bld) [Volum e fraction]on 10-02-2021 Hematocrit (Bld) [Volume fraction] 38.9 % 40-54 [facility] Work Phone: Ketones Test strip Ql (U)on 10-02-2021 Ketones Ql (U) 15 mg/dl Negative [facility] Work Phone: Laboratory - Chemistry and C hemistry - challengeon 10-02-2021 ALP [Catalytic activity/Vol] 156 U/L 45-117 [facility] Work Phone: ALT [Catalytic activity/Vol] 14 U/L 16-61 [facility] Work Phone: CO2 [Moles/Vol] 26.0 mmol/L 21.0-32.0 [facility] Work Phone: Globulin (S) [Mass/Vol] 3.2 g/dL 2.2-4.2 [facility] Work Phone: Urea nitrogen/Creatinine [Mass ratio] 23.1 mg/mg 10-20 [facility] Work Phone: Laboratory - Hematology and Cell countson 10-02-2021 Erythrocyte distribution width (RBC) [Entitic vol] 42.7 fL 35.1-43.9 [facility] Work Phone: Erythrocyte distribution width (RBC) [Ratio] 12.6 % 11.6-14.6 [facility] Work Phone: Immature granulocytes/100 WBC (Bld) 0.500 % 0.0-0.9 [facility] Work Phone: Comment on above: IG% - Immature Granu locytes (promyelocytes, myelocytes and metamyelocytes) > 1% indicates that a LEFT SHIFT is Present. MCH (RBC) [Entitic mass] 32.6 pg 27.0-32.0 [facility] Work Phone: Nucleated RBC/100 WBC (Bld) [Ratio] 0 % 0-5 [facility] Work Phone: MCHC Auto (RBC) [Mass/Vol]on 10-02-2021 MCHC (RBC) [Mass/Vol] 35.2 g/dL 32-36 [facility] Work Phone: Mucus LM Ql (Urine sed)on Mucus Ql (Urine sed) RARE /hpf [facility] Work Phone: Nitrite Test strip Ql (U)on 10-02-2021 Nitrite Ql (U) Negative Negative [facility] Work Phone: No Panel Informationon 10-02 Estimated Creatinine Clearance Calc 60.08 ml/min [facility] Work Phone: Estimated GFR (MDRD) Amer 85 mL/min >60 [facility] Work Phone: Comment on above: GFR Calc Estimated GFR (MDRD) Non-Af Amer 71 mL/min >60 [facility] Work Phone: Comment on above: Non- GFR Calc Troponin I High Sensitivity 6 pg/mL 3.0-78.0 [facility] Work Phone: Comment on above: Please Note: New [place] t Units and Gender Specific Reference Ranges. For more information see Policy Stat Procedure [place] High Sensitivity Troponin (TNIH) and attachments. Platelets bldon 10-02-2021 Platelets (Bld) [#/Vol] 154 10*3/uL 150-450 [facility] Work Phone: Protein Test strip Ql (U)on 10-02-2021 Protein Ql (U) 15 mg/dl Negative [facility] Work Phone: Serum or plasma albumin farshad urement (mass/volume)on 10-02-2021 Albumin [Mass/Vol] 3.8 g/dL 3.2-5.0 [facility] Work Phone: Serum or plasma albumin/glob ulin mass ratioon 10-02-2021 Albumin/Globulin [Mass ratio] 1.2 {ratio} 0.9-2.4 [facility] Work Phone: Serum or plasma calcium farshad urement (mass/volume)on 10-02-2021 Calcium [Mass/Vol] 8.7 mg/dL 8.5-10.1 [facility] Work Phone: Serum or plasma creatinine m easurement (mass/volume)on 10-02-2021 Creatinine [Mass/Vol] 1.08 mg/dL 0.70-1.30 [facility] Work Phone: Comment on above: The validity of the calculated GFR & GFRAA in patients over 70 years has not been determined. Clinical correlation is essential. Serum or plasma urea nitroge n measurement (mass/volume)on 10-02-2021 Urea nitrogen [Mass/Vol] 25 mg/dL 7-18 [facility] Work Phone: Squamous epithelial cells de tection in urine sediment by light microscopyon 10-02-2021 Epithelial cells.squamous LM Ql (Urine sed) 0 SEEN /hpf 0-5 [facility] Work Phone: Thin prep Papanicolaou smear with manual screeningon 10-02-2021 Thin prep Papanicolaou smear with manual screening 34 U/L 15-37 [facility] Work Phone: Thin prep Papanicolaou smear with manual screening 6 5-15 [facility] Work Phone: Urine blood detectionon - RBC Ql (U) Negative Negative [facility] Work Phone: RBC Ql (U) 0 SEEN /hpf 0-5 [facility] Work Phone: Urine clarityon 10-02-2021 Clarity (U) Clear Clear [facility] Work Phone: Urine color determinationon 10-02-2021 Color (U) Yellow Yellow [facility] Work Phone: Urine glucose detectionon Glucose Ql (U) Normal mg/dl Normal [facility] Work Phone: Urine leukocyte esterase det ection by dipstickon 10-02-2021 Leukocyte esterase Test strip Ql (U) 25 /ul Negative [facility] Work Phone: Urine pHon 10-02-2021 pH (U) 6.0 [pH] 5.0 - 8.0 [facility] Work Phone: Urine sediment bacteria coun t by microscopy (number/high power field)on 10-02-2021 Bacteria LM.HPF (Urine sed) [#/Area] 0 /[HPF] None Seen [facility] Work Phone: Urine specific gravity measu rementon 10-02-2021 Specific gravity (U) [Rel density] 1.015 1.002-1.030 [facility] Work Phone: Urobilinogen Auto test strip Ql (U)on 10-02-2021 Urobilinogen Ql (U) 1 mg/dl Normal [facility] Work Phone: Basophil percentageon 2021 Chloride [Moles/Vol] 106 mmol/L 98-[address] [facility] Work Phone: Glucose [Mass/Vol] 96 mg/dL 74-106 [facility] Work Phone: Potassium [Moles/Vol] 4.1 mmol/L 3.5-5.1 [facility] Work Phone: Sodium [Moles/Vol] 139 mmol/L 136-145 [facility] Work Phone: WBC (Bld) [#/Vol] 4.7 10*3/uL 4.4-11.0 [facility] Work Phone: Blood erythrocytes count (nu mber/volume)on 09-23-2021 RBC (Bld) [#/Vol] 4.10 10*6/uL 4.6-6.2 [facility]: Blood hemoglobin measurement (mass/volume)on 09-23-2021 Hemoglobin (Bld) [Mass/Vol] 13.4 g/dL 13.0-16.5 [facility] Work Phone: Blood platelet mean volumeon 09-23-2021 Platelet mean volume (Bld) [Entitic vol] 9.5 fL 6.2-12.0 [facility] Work Phone: Determination of erythrocyte mean corpuscular volume (MCV)on 09-23-2021 MCV (RBC) [Entitic vol] 95.9 fL 80-94 [facility] Work Phone: Hematocrit Auto (Bld) [Volum e fraction]on 09-23-2021 Hematocrit (Bld) [Volume fraction] 39.3 % 40-54 [facility] Work Phone: Laboratory - Chemistry and C hemistry - challengeon 09-23-2021 CO2 [Moles/Vol] 28.0 mmol/L 21.0-32.0 [facility] Work Phone: Urea nitrogen/Creatinine [Mass ratio] 32.7 mg/mg 10-20 [facility] Work Phone: Laboratory - Hematology and Cell countson 09-23-2021 Erythrocyte distribution width (RBC) [Entitic vol] 44.1 fL 35.1-43.9 [facility] Work Phone: Erythrocyte distribution width (RBC) [Ratio] 12.7 % 11.6-14.6 [facility] Work Phone: MCH (RBC) [Entitic mass] 32.7 pg 27.0-32.0 [facility] Work Phone: MCHC Auto (RBC) [Mass/Vol]on 09-23-2021 MCHC (RBC) [Mass/Vol] 34.1 g/dL 32-36 [facility] Work Phone: No Panel Informationon 09-23 Estimated GFR (MDRD) Amer 84 mL/min >60 [facility] Work Phone: Comment on above: GFR Calc Estimated GFR (MDRD) Non-Af Amer 69 mL/min >60 [facility] Work Phone: Comment on above: Non- GFR Calc Platelets bldon 09-23-2021 Platelets (Bld) [#/Vol] 167 10*3/uL 150-450 [facility] Work Phone: Serum or plasma calcium farshad urement (mass/volume)on 09-23-2021 Calcium [Mass/Vol] 9.0 mg/dL 8.5-10.1 [facility] Work Phone: Serum or plasma creatinine m easurement (mass/volume)on 09-23-2021 Creatinine [Mass/Vol] 1.10 mg/dL 0.70-1.30 [facility] Work Phone: Comment on above: The validity of the calculated GFR & GFRAA in patients over 70 years has not been determined. Clinical correlation is essential. Serum or plasma urea nitroge n measurement (mass/volume)on 09-23-2021 Urea nitrogen [Mass/Vol] 36 mg/dL 7-18 [facility] Work Phone: Thin prep Papanicolaou smear with manual screeningon 09-23-2021 Thin prep Papanicolaou smear with manual screening 5 5-15 [facility] Work Phone: Basophil percentageon 2021 Chloride [Moles/Vol] 105 mmol/L 98-107 [facility] Work Phone: Glucose [Mass/Vol] 88 mg/dL 74-106 [facility] Work Phone: Potassium [Moles/Vol] 4.2 mmol/L 3.5-5.1 [facility] Work Phone: Sodium [Moles/Vol] 139 mmol/L 136-145 [facility] Work Phone: WBC (Bld) [#/Vol] 4.3 10*3/uL 4.4-11.0 [facility] Work Phone: Blood erythrocytes count (nu mber/volume)on 08-19-2021 RBC (Bld) [#/Vol] 4.31 10*6/uL 4.6-6.2 [facility] Work Phone: Blood hemoglobin measurement (mass/volume)on 08-19-2021 Hemoglobin (Bld) [Mass/Vol] 13.6 g/dL 13.0-16.5 [facility] Work Phone: Blood platelet mean volumeon 08-19-2021 Platelet mean volume (Bld) [Entitic vol] 9.4 fL 6.2-12.0 [facility] Work Phone: Determination of erythrocyte mean corpuscular volume (MCV)on 08-19-2021 MCV (RBC) [Entitic vol] 93.5 fL 80-94 [facility] Work Phone: Hematocrit Auto (Bld) [Volum e fraction]on 08-19-2021 Hematocrit (Bld) [Volume fraction] 40.3 % 40-54 [facility] Work Phone: Laboratory - Chemistry and C hemistry - challengeon 08-19-2021 CO2 [Moles/Vol] 31.0 mmol/L 21.0-32.0 [facility] Work Phone: Urea nitrogen/Creatinine [Mass ratio] 34.1 mg/mg 10-20 [facility] Work Phone: Laboratory - Hematology and Cell countson 08-19-2021 Erythrocyte distribution width (RBC) [Entitic vol] 43.7 fL 35.1-43.9 [facility] Work Phone: Erythrocyte distribution width (RBC) [Ratio] 12.6 % 11.6-14.6 [facility] Work Phone: MCH (RBC) [Entitic mass] 31.6 pg 27.0-32.0 [facility] Work Phone: MCHC Auto (RBC) [Mass/Vol]on 08-19-2021 MCHC (RBC) [Mass/Vol] 33.7 g/dL 32-36 [facility] Work Phone: No Panel Informationon 08-19 Estimated GFR (MDRD) Amer 94 mL/min >60 [facility] Work Phone: Comment on above: GFR Calc Estimated GFR (MDRD) Non-Af Amer 77 mL/min >60 [facility] Work Phone: Comment on above: Non- GFR Calc Platelets bldon 08-19-2021 Platelets (Bld) [#/Vol] 162 10*3/uL 150-450 [facility] Work Phone: Serum or plasma calcium farshad urement (mass/volume)on 08-19-2021 Calcium [Mass/Vol] 8.7 mg/dL 8.5-10.1 [facility] Work Phone: Serum or plasma creatinine m easurement (mass/volume)on 08-19-2021 Creatinine [Mass/Vol] 1.00 mg/dL 0.70-1.30 [facility] Work Phone: Comment on above: The validity of the calculated GFR & GFRAA in patients over 70 years has not been determined. Clinical correlation is essential. Serum or plasma urea nitroge n measurement (mass/volume)on 08-19-2021 Urea nitrogen [Mass/Vol] 34 mg/dL 7-18 [facility] Work Phone: Thin prep Papanicolaou smear with manual screeningon 08-19-2021 Thin prep Papanicolaou smear with manual screening 3 5-15 [facility] Work Phone: Basophil percentageon 2021 Chloride [Moles/Vol] 108 mmol/L 98-107 [facility] Work Phone: Glucose [Mass/Vol] 85 mg/dL 74-106 [facility] Work Phone: Potassium [Moles/Vol] 4.3 mmol/L 3.5-5.1 [facility] Work Phone: Sodium [Moles/Vol] 141 mmol/L 136-145 [facility] Work Phone: WBC (Bld) [#/Vol] 4.4 10*3/uL 4.4-11.0 [facility] Work Phone: Blood erythrocytes count (nu mber/volume)on 07-22-2021 RBC (Bld) [#/Vol] 4.02 10*6/uL 4.6-6.2 [facility] Work Phone: Blood hemoglobin measurement (mass/volume)on 07-22-2021 Hemoglobin (Bld) [Mass/Vol] 13.1 g/dL 13.0-16.5 [facility] Work Phone: Blood platelet mean volumeon 07-22-2021 Platelet mean volume (Bld) [Entitic vol] 9.2 fL 6.2-12.0 [facility] Work Phone: Determination of erythrocyte mean corpuscular volume (MCV)on 07-22-2021 MCV (RBC) [Entitic vol] 92.8 fL 80-94 [facility] Work Phone: Hematocrit Auto (Bld) [Volum e fraction]on 07-22-2021 Hematocrit (Bld) [Volume fraction] 37.3 % 40-54 [facility] Work Phone: Laboratory - Chemistry and C hemistry - challengeon 07-22-2021 CO2 [Moles/Vol] 32.0 mmol/L 21.0-32.0 [facility] Work Phone: Urea nitrogen/Creatinine [Mass ratio] 26.4 mg/mg 10-20 [facility] Work Phone: Laboratory - Hematology and Cell countson 07-22-2021 Erythrocyte distribution width (RBC) [Entitic vol] 42.7 fL 35.1-43.9 [facility] Work Phone: Erythrocyte distribution width (RBC) [Ratio] 12.5 % 11.6-14.6 [facility] Work Phone: MCH (RBC) [Entitic mass] 32.6 pg 27.0-32.0 [facility] Work Phone: MCHC Auto (RBC) [Mass/Vol]on 07-22-2021 MCHC (RBC) [Mass/Vol] 35.1 g/dL 32-36 [facility] Work Phone: No Panel Informationon 07-22 Estimated GFR (MDRD) Amer 87 mL/min >60 [facility] Work Phone: Comment on above: GFR Calc Estimated GFR (MDRD) Non-Af Amer 72 mL/min >60 [facility] Work Phone: Comment on above: Non- GFR Calc Platelets bldon 07-22-2021 Platelets (Bld) [#/Vol] 163 10*3/uL 150-450 [facility] Work Phone: Serum or plasma calcium farshad urement (mass/volume)on 07-22-2021 Calcium [Mass/Vol] 8.9 mg/dL 8.5-10.1 [facility] Work Phone: Serum or plasma creatinine m easurement (mass/volume)on 07-22-2021 Creatinine [Mass/Vol] 1.06 mg/dL 0.70-1.30 [facility] Work Phone: Comment on above: The validity of the calculated GFR & GFRAA in patients over 70 years has not been determined. Clinical correlation is essential. Serum or plasma urea nitroge n measurement (mass/volume)on 07-22-2021 Urea nitrogen [Mass/Vol] 28 mg/dL 7-18 [facility] Work Phone: Thin prep Papanicolaou smear with manual screeningon 07-22-2021 Thin prep Papanicolaou smear with manual screening 1 5-15 [facility] Work Phone: Basophil percentageon 2021 Chloride [Moles/Vol] 106 mmol/L 98-107 [facility] Work Phone: Glucose [Mass/Vol] 80 mg/dL 74-106 [facility] Work Phone: Potassium [Moles/Vol] 4.2 mmol/L 3.5-5.1 [facility] Work Phone: Sodium [Moles/Vol] 140 mmol/L 136-145 [facility] Work Phone: WBC (Bld) [#/Vol] 4.1 10*3/uL 4.4-11.0 [facility] Work Phone: Blood erythrocytes count (nu mber/volume)on 06-24-2021 RBC (Bld) [#/Vol] 4.10 10*6/uL 4.6-6.2 [facility] Work Phone: Blood hemoglobin measurement (mass/volume)on 06-24-2021 Hemoglobin (Bld) [Mass/Vol] 13.3 g/dL 13.0-16.5 [facility] Work Phone: Blood platelet mean volumeon 06-24-2021 Platelet mean volume (Bld) [Entitic vol] 9.5 fL 6.2-12.0 [facility] Work Phone: Determination of erythrocyte mean corpuscular volume (MCV)on 06-24-2021 MCV (RBC) [Entitic vol] 93.4 fL 80-94 [facility] Work Phone: Hematocrit Auto (Bld) [Volum e fraction]on 06-24-2021 Hematocrit (Bld) [Volume fraction] 38.3 % 40-54 [facility] Work Phone: Laboratory - Chemistry and C hemistry - challengeon 06-24-2021 CO2 [Moles/Vol] 33.0 mmol/L 21.0-32.0 [facility] Work Phone: Urea nitrogen/Creatinine [Mass ratio] 32.4 mg/mg 10-20 [facility] Work Phone: Laboratory - Hematology and Cell countson 06-24-2021 Erythrocyte distribution width (RBC) [Entitic vol] 43.4 fL 35.1-43.9 [facility] Work Phone: Erythrocyte distribution width (RBC) [Ratio] 12.5 % 11.6-14.6 [facility] Work Phone: MCH (RBC) [Entitic mass] 32.4 pg 27.0-32.0 [facility] Work Phone: MCHC Auto (RBC) [Mass/Vol]on 06-24-2021 MCHC (RBC) [Mass/Vol] 34.7 g/dL 32-36 [facility] Work Phone: No Panel Informationon 06-24 Estimated GFR (MDRD) Amer 102 mL/min >60 [facility] Work Phone: Comment on above: GFR Calc Estimated GFR (MDRD) Non-Af Amer 84 mL/min >60 [facility] Work Phone: Comment on above: Non- GFR Calc Platelets bldon 06-24-2021 Platelets (Bld) [#/Vol] 149 10*3/uL 150-450 [facility] Work Phone: Serum or plasma calcium farshad urement (mass/volume)on 06-24-2021 Calcium [Mass/Vol] 8.6 mg/dL 8.5-10.1 [facility] Work Phone: Serum or plasma creatinine m easurement (mass/volume)on 06-24-2021 Creatinine [Mass/Vol] 0.93 mg/dL 0.70-1.30 [facility] Work Phone: Comment on above: The validity of the calculated GFR & GFRAA in patients over 70 years has not been determined. Clinical correlation is essential. Serum or plasma urea nitroge n measurement (mass/volume)on 06-24-2021 Urea nitrogen [Mass/Vol] 30 mg/dL 7-18 [facility] Work Phone: Thin prep Papanicolaou smear with manual screeningon 06-24-2021 Thin prep Papanicolaou smear with manual screening 1 5-15 [facility] Work Phone: Basophil percentageon 2021 Chloride [Moles/Vol] 105 mmol/L 98-107 [facility] Work Phone: Glucose [Mass/Vol] 93 mg/dL 74-106 [facility] Work Phone: Potassium [Moles/Vol] 4.4 mmol/L 3.5-5.1 [facility] Work Phone: Sodium [Moles/Vol] 140 mmol/L 136-145 [facility] Work Phone: WBC (Bld) [#/Vol] 4.8 10*3/uL 4.4-11.0 [facility] Work Phone: Blood erythrocytes count (nu mber/volume)on 05-27-2021 RBC (Bld) [#/Vol] 4.04 10*6/uL 4.6-6.2 [facility] Work Phone: Blood hemoglobin measurement (mass/volume)on 05-27-2021 Hemoglobin (Bld) [Mass/Vol] 13.0 g/dL 13.0-16.5 [facility] Work Phone: Blood platelet mean volumeon 05-27-2021 Platelet mean volume (Bld) [Entitic vol] 9.5 fL 6.2-12.0 [facility] Work Phone: Determination of erythrocyte mean corpuscular volume (MCV)on 05-27-2021 MCV (RBC) [Entitic vol] 94.1 fL 80-94 [facility] Work Phone: Hematocrit Auto (Bld) [Volum e fraction]on 05-27-2021 Hematocrit (Bld) [Volume fraction] 38.0 % 40-54 [facility] Work Phone: Laboratory - Chemistry and C hemistry - challengeon 05-27-2021 CO2 [Moles/Vol] 31.0 mmol/L 21.0-32.0 [facility] Work Phone: Urea nitrogen/Creatinine [Mass ratio] 25.2 mg/mg 10-20 [facility] Work Phone: Laboratory - Hematology and Cell countson 05-27-2021 Erythrocyte distribution width (RBC) [Entitic vol] 43.4 fL 35.1-43.9 [facility] Work Phone: Erythrocyte distribution width (RBC) [Ratio] 12.5 % 11.6-14.6 [facility] Work Phone: MCH (RBC) [Entitic mass] 32.2 pg 27.0-32.0 [facility] Work Phone: MCHC Auto (RBC) [Mass/Vol]on 05-27-2021 MCHC (RBC) [Mass/Vol] 34.2 g/dL 32-36 [facility] Work Phone: No Panel Informationon 05-27 Estimated GFR (MDRD) Amer 90 mL/min >60 [facility] Work Phone: Comment on above: GFR Calc Estimated GFR (MDRD) Non-Af Amer 75 mL/min >60 [facility] Work Phone: Comment on above: Non- GFR Calc Platelets bldon 05-27-2021 Platelets (Bld) [#/Vol] 157 10*3/uL 150-450 [facility] Work Phone: Serum or plasma calcium farshad urement (mass/volume)on 05-27-2021 Calcium [Mass/Vol] 8.9 mg/dL 8.5-10.1 [facility] Work Phone: Serum or plasma creatinine m easurement (mass/volume)on 05-27-2021 Creatinine [Mass/Vol] 1.03 mg/dL 0.70-1.30 [facility] Work Phone: Comment on above: The validity of the calculated GFR & GFRAA in patients over 70 years has not been determined. Clinical correlation is essential. Serum or plasma urea nitroge n measurement (mass/volume)on 05-27-2021 Urea nitrogen [Mass/Vol] 26 mg/dL 7-18 [facility] Work Phone: Thin prep Papanicolaou smear with manual screeningon 05-27-2021 Thin prep Papanicolaou smear with manual screening 4 5-15 [facility] Work Phone: [facility] Surgical Pathology Depar tmenton 12-21-2020 [facility] Surgical Pathology Department Name IGOR HANSEN Pathologist: JAYSHREE BRITTON DMD Date of Procedure: 12/21/2020 Date Received: 12/24/2020 Date Reported 12/27/2020 Submitting Physician: MARJAN SOSA DMD Location: [facility] Other External # FINAL DIAGNOSIS A: FRONT AND RIGHT LATERAL BORDER OF TONGUE, EXCISION: -- TRAUMATIC FIBROMAS ICD-10/CPT: D10.1/84494 Electronically Signed Out By JAYSHREE BRITTON DMD/YESIKA By the signature on this report, the individual or group listed as making the Final Interpretation/Diagn osis certifies that they have reviewed this case. [...] is submitted in toto in one cassette. [facility]/12/24/2020 [facility] Department of Pathology [address] [place] [address] Comment on above: Performed By: #### U [facility] #### [facility] Surgical Pathology Department [address] [place] [address] CURjoselito 08-12-2019 ROBINSON . MICRO - Microbiology PROCEDURE: Urine Culture [*1] SOURCE: Urine BODY SITE: COLLECTED DATE/TIME: 08/10/2019 17:01 EDT RECEIVED DATE/TIME: 08/10/2019 19:08 EDT START DATE/TIME: 08/10/2019 19:08 EDT FREE TEXT SOURCE: FINAL REPORTS Final Report [] Verified Date/Time/Personnel: 08/12/2019 07:21 EDT 10,000 - 50,000 cfu/ml Multiple bacterial morphotypes present. Probable Contamination. Suggest recollection if clinically indicated. PRELIMINARY REPORTS Preliminary Report [] Verified Date/Time/Personnel: 08/11/2019 09:17 EDT No growth to date Performing Locations *1: This test was performed at: [facility], [address] [place] [address], [id number] , [facility] ([place]) Comment on above: Performed By: #### C BC, ADIFF, ANEU #### [place] [address] [place], [place] [address] #### TROP, BMP, TSH, GFR #### [facility] [address] [place] [id number] .GFRon 08-10-2019 GFR 43 ml/min/1.73sqm Normal [facility] ([place]) Comment on above: Result Comment: GFR Population [...] meters Performed By: #### B MP, GFR ####[address] [address] GFR Non- 35 ml/min/1.73sqm Normal [facility] ([place]) Comment on above: Result Comment: GFR Population [...] meters Performed By: #### B MP, GFR ####[address] [address] BMPon 08-10-2019 Calcium [Mass/Vol] 9.1 mg/dL Normal 8.4-10.2 [facility] ([place]) Comment on above: Performed By: #### B MP, GFR ####[address] [address] Chloride [Moles/Vol] 105 mmol/L Normal 98-107 [facility] ([place]) Comment on above: Performed By: #### B MP, GFR ####[address] [address] CO2 [Moles/Vol] 33 mmol/L High 23-31 [facility] ([place]) Comment on above: Performed By: #### B MP, GFR ####[address] [address] Creatinine [Mass/Vol] 1.88 mg/dL High 0.70-1.30 [facility] ([place]) Comment on above: Performed By: #### B MP, GFR ####[address] [address] Electrolyte Balance 5.0 mEq/L Normal [facility] ([place]) Comment on above: Performed By: #### B MP, GFR ####[address] [address] Glucose [Mass/Vol] 83 mg/dL Normal 83-110 [facility] ([place]) Comment on above: Performed By: #### B MP, GFR ####[address] [address] Potassium [Moles/Vol] 4.1 mmol/L Normal 3.5-5.1 [facility] ([place]) Comment on above: Performed By: #### B MP, GFR ####[address] [address] Sodium [Moles/Vol] 143 mmol/L Normal 136-145 [facility] ([place]) Comment on above: Performed By: #### B MP, GFR ####[address] [address] Urea nitrogen [Mass/Vol] 38 mg/dL High 7-18 [facility] ([place]) Comment on above: Performed By: #### B MP, GFR ####[address] [address] Urea nitrogen/Creatinine [Mass ratio] 20 ratio Normal 12-07 [facility] ([place]) Comment on above: Performed By: #### B MP, GFR ####[address] [address] UAon 08-10-2019 Color (U) Yellow Normal [facility] ([place]) Comment on above: Performed By: #### C BC, ADIFF, ANEU #### [address] [address] #### TROP, BMP, TSH, GFR #### [address] [address] Glucose (U) [Mass/Vol] Negative Normal Negative [facility] ([place]) Comment on above: Performed By: #### C BC, ADIFF, ANEU #### [address] [address] #### TROP, BMP, TSH, GFR #### [address] [address] Ketones Ql (U) Negative Normal Negative [facility] ([place]) Comment on above: Performed By: #### C BC, ADIFF, ANEU #### [address] [address] #### TROP, BMP, TSH, GFR #### [address] [address] UA Appear Clear Normal Clear [facility] ([place]) Comment on above: Performed By: #### C BC, ADIFF, ANEU #### [address] [address] #### TROP, BMP, TSH, GFR #### [address] [address] UA Blood Trace Abnormal Negative [facility] ([place]) Comment on above: Performed By: #### C BC, ADIFF, ANEU #### [address] [address] #### TROP, BMP, TSH, GFR #### [place] [address] UA Leuk Est Negative Normal Negative [facility] ([place]) Comment on above: Performed By: #### C BC, ADIFF, ANEU #### [place] [address] #### TROP, BMP, TSH, GFR #### [place] [address] UA Nitrite Negative Normal Negative [facility] ([place]) Comment on above: Performed By: #### C BC, ADIFF, ANEU #### [place] [address] #### TROP, BMP, TSH, GFR #### [place] [address] UA pH 7.0 Normal 5.0 - 8.0 [facility] ([place]) Comment on above: Performed By: #### C BC, ADIFF, ANEU #### [place] [address] #### TROP, BMP, TSH, GFR #### [place] [address] UA Protein Negative Normal Negative [facility] ([place]) Comment on above: Performed By: #### C BC, ADIFF, ANEU #### [place] [address] #### TROP, BMP, TSH, GFR #### [place] [address] UA Spec Grav 1.020 Normal 1.015-1.025 [facility] ([place]) Comment on above: Performed By: #### C BC, ADIFF, ANEU #### [place] [address] #### TROP, BMP, TSH, GFR #### [place] [address] UA Specimen Type Clean Catch Normal [facility] ([place]) Comment on above: Performed By: #### C BC, ADIFF, ANEU #### [place] [address] #### TROP, BMP, TSH, GFR #### [place] [address] UA Urobilinogen 0.2 E.U./dL Normal 0.2-1.0 [facility] ([place]) Comment on above: Performed By: #### C BC, ADIFF, ANEU #### [place] [address] #### TROP, BMP, TSH, GFR #### [place] [address] Urobilinogen Qn (U) Negative Normal Negative [facility] ([place]) Comment on above: Performed By: #### C BC, ADIFF, ANEU #### [place] [address] #### TROP, BMP, TSH, GFR #### [place] [address] .Auto Diffon 08-09-2019 Ammonia (P) [Mass/Vol] 0.40 10 3/mcL Normal 0.15-1.00 [facility] ([place]) Comment on above: Performed By: #### C BC, ADIFF, ANEU #### [place] [address] #### TROP, BMP, TSH, GFR #### [place] [address] Basophils (Bld) [#/Vol] 0.00 10 3/mcL Normal 0.00-0.19 [facility] ([place]) Comment on above: Performed By: #### C BC, ADIFF, ANEU #### [place] [address] #### TROP, BMP, TSH, GFR #### [place] [address] Basophils/100 WBC (Bld) 1.0 % Normal 0.0-2.5 A [facility] ([place]) Comment on above: Performed By: #### C BC, ADIFF, ANEU #### [place] [address] #### TROP, BMP, TSH, GFR #### [address] [address] Eosinophils (Bld) [#/Vol] 0.10 10 3/mcL Normal 0.00-0.40 [facility] ([place]) Comment on above: Performed By: #### C BC, ADIFF, ANEU #### [place] [address] #### TROP, BMP, TSH, GFR #### [address] [address] Eosinophils/100 WBC (Bld) 1.3 % Normal 0.0-7.0 [facility] ([place]) Comment on above: Performed By: #### C BC, ADIFF, ANEU #### [place] [address] #### TROP, BMP, TSH, GFR #### [address] [address] Lymphocytes (Bld) [#/Vol] 0.80 10 3/mcL Normal 0.77-3.85 [facility] ([place]) Comment on above: Performed By: #### C BC, ADIFF, ANEU #### [place] [address] #### TROP, BMP, TSH, GFR #### [address] [address] Lymphocytes/100 WBC (Bld) 15.3 % Normal 10.0-50.0 [facility] ([place]) Comment on above: Performed By: #### C BC, ADIFF, ANEU #### [place] [address] #### TROP, BMP, TSH, GFR #### [address] [address] Monocytes/100 WBC (Bld) 8.0 % Normal 1.7-13.0 A [facility] ([place]) Comment on above: Performed By: #### C BC, ADIFF, ANEU #### [place] [address] #### TROP, BMP, TSH, GFR #### [address] [address] Neutrophils/100 WBC (Bld) 74.4 % Normal 37.0-80.0 [facility] ([place]) Comment on above: Performed By: #### C BC, ADIFF, ANEU #### [place] [address] [place], [place] [address] #### TROP, BMP, TSH, GFR #### [address] [address] .GFRon 08-09-2019 GFR 39 ml/min/1.73sqm Normal [facility] ([place]) Comment on above: Result Comment: GFR Population [...] #### B MP, MG, GFR, VIDH, B12 ####[address] [address] GFR Non- 32 ml/min/1.73sqm Normal [facility] ([place]) Comment on above: Result Comment: GFR Population [...] #### B MP, MG, GFR, VIDH, B12 ####[address] [address] GFR Non- 31 ml/min/1.73sqm Normal [facility] ([place]) Comment on above: Result Comment: GFR Population [...] mL/min/1.73 square meters Performed By: #### C CLARA MON, ANEU #### [place] [address] [address] #### TROP, BMP, TSH, GFR #### [address] [address] GFR 37 ml/min/1.73sqm Normal [facility] ([place]) Comment on above: Result Comment: GFR Population [...] #### C BC, ADIFF, ANEU #### [place] [address] [address] #### TROP, BMP, TSH, GFR #### [address] [address] .NEUABSon 08-09-2019 Neutrophils (Bld) [#/Vol] 3.80 10 3/mcL Normal 2.85-6.16 [facility] ([place]) Comment on above: Performed By: #### C BC, ADIFF, ANEU #### [place] [address] #### TROP, BMP, TSH, GFR #### [address] [address] .Urinalysis Microscopic (AO) on 08-09-2019 RBC (U) [#/Vol] 0-5 Abnormal None Seen [facility] ([place]) Comment on above: Performed By: #### U A, UAMICAO ####[place] [address] UA Squam Epithelial None Seen Normal None Seen [facility] ([place]) Comment on above: Performed By: #### U A, UAMICAO ####[place] [address] UA WBC 0-5 Abnormal None Seen [facility] ([place]) Comment on above: Performed By: #### U A, UAMICAO ####[place] [address] B12on 08-09-2019 Cobalamin (Vitamin B12) [Mass/Vol] 336 pg/mL Normal 211-911 [facility] ([place]) Comment on above: Performed By: #### B MP, MG, GFR, VIDH, B12 ####[place] [address] BMPon 08-09-2019 Calcium [Mass/Vol] 8.7 mg/dL Normal 8.4-10.2 [facility] ([place]) Comment on above: Performed By: #### B MP, MG, GFR, VIDH, B12 ####[place] [address] Chloride [Moles/Vol] 106 mmol/L Normal 98-107 [facility] ([place]) Comment on above: Performed By: #### B MP, MG, GFR, VIDH, B12 ####[address] [address] CO2 [Moles/Vol] 32 mmol/L High 23-31 [facility] ([place]) Comment on above: Performed By: #### B MP, MG, GFR, VIDH, B12 ####[address] [address] Creatinine [Mass/Vol] 2.03 mg/dL High 0.70-1.30 [facility] ([place]) Comment on above: Performed By: #### B MP, MG, GFR, VIDH, B12 ####[address] [address] Electrolyte Balance 3.0 mEq/L Normal [facility] ([place]) Comment on above: Performed By: #### B MP, MG, GFR, VIDH, B12 ####[address] [address] Glucose [Mass/Vol] 91 mg/dL Normal 83-110 [facility] ([place]) Comment on above: Performed By: #### B MP, MG, GFR, VIDH, B12 ####[address] [address] Potassium [Moles/Vol] 4.5 mmol/L Normal 3.5-5.1 [facility] ([place]) Comment on above: Performed By: #### B MP, MG, GFR, VIDH, B12 ####[address] [address] Sodium [Moles/Vol] 141 mmol/L Normal 136-145 [facility] ([place]) Comment on above: Performed By: #### B MP, MG, GFR, VIDH, B12 ####[address] [address] Urea nitrogen [Mass/Vol] 46 mg/dL High 7-18 [facility] ([place]) Comment on above: Performed By: #### B MP, MG, GFR, VIDH, B12 ####[address] [address] Urea nitrogen/Creatinine [Mass ratio] 23 ratio Normal 7-27 [facility] ([place]) Comment on above: Performed By: #### B MP, MG, GFR, VIDH, B12 ####[address] [address] Calcium [Mass/Vol] 9.6 mg/dL Normal 8.4-10.2 [facility] ([place]) Comment on above: Performed By: #### C BC, ADIFF, ANEU #### [address] [address] #### TROP, BMP, TSH, GFR #### [address] [address] Chloride [Moles/Vol] 104 mmol/L Normal 98-107 [facility] ([place]) Comment on above: Performed By: #### C BC, ADIFF, ANEU #### [address] [address] #### TROP, BMP, TSH, GFR #### [address] [address] CO2 [Moles/Vol] 29 mmol/L Normal 23-31 [facility] ([place]) Comment on above: Performed By: #### C BC, ADIFF, ANEU #### [address] [address] #### TROP, BMP, TSH, GFR #### [address] [address] Creatinine [Mass/Vol] 2.12 mg/dL High 0.70-1.30 [facility] ([place]) Comment on above: Performed By: #### C BC, ADIFF, ANEU #### [address] [address] #### TROP, BMP, TSH, GFR #### [address] [address] Electrolyte Balance 8.0 mEq/L Normal [facility] ([place]) Comment on above: Performed By: #### C BC, ADIFF, ANEU #### [address] [address] #### TROP, BMP, TSH, GFR #### [address] [address] Glucose [Mass/Vol] 92 mg/dL Normal 83-110 [facility] ([place]) Comment on above: Performed By: #### C BC, ADIFF, ANEU #### [address] [address] #### TROP, BMP, TSH, GFR #### [address] [address] Potassium [Moles/Vol] 4.2 mmol/L Normal 3.5-5.1 [facility] ([place]) Comment on above: Performed By: #### C BC, ADIFF, ANEU #### [address] [address] #### TROP, BMP, TSH, GFR #### [address] [address] Sodium [Moles/Vol] 141 mmol/L Normal 136-145 [facility] ([place]) Comment on above: Performed By: #### C BC, ADIFF, ANEU #### [address] [address] #### TROP, BMP, TSH, GFR #### [address] [address] Urea nitrogen [Mass/Vol] 47 mg/dL High 7-18 [facility] ([place]) Comment on above: Performed By: #### C BC, ADIFF, ANEU #### [address] [address] #### TROP, BMP, TSH, GFR #### [address] [address] Urea nitrogen/Creatinine [Mass ratio] 22 ratio Normal 7-27 [facility] ([place]) Comment on above: Performed By: #### C BC, ADIFF, ANEU #### [address] [address] #### TROP, BMP, TSH, GFR #### [address] [address] CBCon 08-09-2019 Erythrocyte distribution width (RBC) [Ratio] 13.0 % Normal 11.5-14.5 [facility] ([place]) Comment on above: Performed By: #### C CLARA MON, ANEU #### [address] [address] #### TROP, BMP, TSH, GFR #### [address] [address] Hematocrit (Bld) [Volume fraction] 41.5 % Low 42.0-52.0 [facility] ([place]) Comment on above: Performed By: #### C YAA, CLARA, ANEU #### [place] [address] #### TROP, BMP, TSH, GFR #### [place] [address] Hemoglobin (Bld) [Mass/Vol] 14.4 G/dL Normal 14.0-18.0 [facility] ([place]) Comment on above: Performed By: #### C CLARA MON, ANEU #### [place] [address] #### TROP, BMP, TSH, GFR #### [address] [address] MCH (RBC) [Entitic mass] 31.6 pg High 27.0-31.2 [facility] ([place]) Comment on above: Performed By: #### C CLARA MON, ANEU #### [place] [address] #### TROP, BMP, TSH, GFR #### [address] [address] MCHC (RBC) [Mass/Vol] 34.7 G/dL Normal 31.8-35.4 [facility] ([place]) Comment on above: Performed By: #### C YAA, ADIFF, ANEU #### [place] [address] #### TROP, BMP, TSH, GFR #### [place] [address] MCV (RBC) [Entitic vol] 91.0 fL Normal 80.0-94.0 A [facility] ([place]) Comment on above: Performed By: #### C BCAMALIAIFF, ANEU #### [place] [address] #### TROP, BMP, TSH, GFR #### [address] [address] Platelet mean volume (Bld) [Entitic vol] 7.6 fL Normal 7.4-10.4 [facility] ([place]) Comment on above: Performed By: #### C BC, ADIFF, ANEU #### [place] [address] #### TROP, BMP, TSH, GFR #### [place] [address] Platelets (Bld) [#/Vol] 168 10 3/mcL Normal 130-400 [facility] ([place]) Comment on above: Performed By: #### C YAA, ADIFF, ANEU #### [place] [address] #### TROP, BMP, TSH, GFR #### [place] [address] RBC (Bld) [#/Vol] 4.56 10 6/mcL Normal 4.04-6.13 [facility] ([place]) Comment on above: Performed By: #### C YAA, CLARA, ANEU #### [place] [address] #### TROP, BMP, TSH, GFR #### [place] [address] WBC (Bld) [#/Vol] 5.10 10 3/mcL Normal 4.60-10.80 [facility] ([place]) Comment on above: Performed By: #### C BC, ADIFF, ANEU #### [place] [address] #### TROP, BMP, TSH, GFR #### [place] [address] CT HEAD OR BRAIN W/O CONTRAS Ton [...] Sign Date: 08/09/2019 12:01:05 AM Ordering Provider:Robert Spence [facility] ([place]) MGon 08-09-2019 Magnesium [Mass/Vol] 1.8 mg/dL Normal 1.8-2.4 [facility]) Comment on above: Performed By: #### B MP, MG, GFR, VIDH, B12 ####[place] [address] TROPon 08-09-2019 Troponin I.cardiac [Mass/Vol] ng/mL Normal 0.000-0.040 [facility]) Comment on above: Result Comment: Trop onin I reference range: 0.00-0.040 ng/mL Negative and non-diagnostic. >0.040 ng/mL Consistent with cardiac damage, increased clinical risk and possibility of myocardial infarction. Serial measurements, a rise & fall in test results, clinical history, appropriate symptoms and/or ECG changes may help assess possibility of [place]. *Other non-acute coronary syndrome conditions such as CHF, myocarditis, pulmonary emboli, sepsis and cardiac surgery could result in myocardial damage and increased troponin levels. Performed By: #### C BC, ADIFF, ANEU #### [place] [address] #### TROP, BMP, TSH, GFR #### [place] [address] TSHon 08-09-2019 TSH Qn 1.72 mcIU/mL Normal 0.36-3.74 [facility] ([place]) Comment on above: Performed By: #### C BCAMALIAIFF, ANEU #### [place] [address] #### TROP, BMP, TSH, GFR #### [place] [address] UAon 08-09-2019 Color (U) Yellow Normal [facility] ([place]) Comment on above: Performed By: #### U A, UAMICAO ####[place] [address] Glucose (U) [Mass/Vol] Negative Normal Negative [facility] ([place]) Comment on above: Performed By: #### U A, UAMICAO ####[place] [address] Ketones Ql (U) Trace Abnormal Negative [facility] ([place]) Comment on above: Performed By: #### U A, UAMICAO ####[place] [address] UA Appear Clear Normal Clear [facility] ([place]) Comment on above: Performed By: #### U A, UAMICAO ####[place] [address] UA Blood Small Abnormal Negative [facility] ([place]) Comment on above: Performed By: #### U A, UAMICAO ####[place] [address] UA Leuk Est Trace Abnormal Negative [facility] ([place]) Comment on above: Performed By: #### U A, UAMICAO ####[place] [address] UA Nitrite Negative Normal Negative [facility] ([place]) Comment on above: Performed By: #### U A, UAMICAO ####[place] [address] UA pH 5.0 Normal 5.0 - 8.0 [facility] ([place]) Comment on above: Performed By: #### U A, UAMICAO ####[place] [address] UA Protein Negative Normal Negative [facility] ([place]) Comment on above: Performed By: #### U A, UAMICAO ####[place] [address] UA Spec Grav 1.025 Normal 1.015-1.025 [facility] ([place]) Comment on above: Performed By: #### U A, UAMICAO ####[place] [address] UA Specimen Type Clean Catch Normal [facility] ([place]) Comment on above: Performed By: #### U A, UAMICAO ####[place] [address] UA Urobilinogen 0.2 E.U./dL Normal 0.2-1.0 [facility] ([place]) Comment on above: Performed By: #### U A, UAMICAO ####[place] [address] Urobilinogen Qn (U) Negative Normal Negative [facility] ([place]) Comment on above: Performed By: #### U A, UAMICAO ####[place] [address] VIDHon 08-09-2019 Vit. D 25-Hydroxy 118 ng/mL Normal [facility] ([place]) Comment on above: Result Comment: Inte rpretive Values Based on Total 25(OH)D: Severe Deficiency <20 ng/mL Mild to Moderate Deficiency 20-30 ng/mL Optimum Levels 30-100 ng/mL Toxicity Possible >100 ng/mL Performed By: #### B MP, MG, GFR, VIDH, B12 ####[place] [id number] [place] [address] XR CHEST 1 VIEWon 08-09-2019 XR CHEST [...] Date: 08/08/2019 11:57:53 PM Ordering Provider:Robert Adame [facility] ([place]) US GROIN LEFTon 08-29-2018 US GROIN LEFT [...] By: Laila Muse MD Electronically Signed By: aLila Muse MD Dictated Date: 08/29/2018 3:00:36 PM Prelim Date: 08/29/2018 3:00:36 PM Sign Date: 08/29/2018 3:01:42 PM [facility] ([place]) XR RIBS 2 VIEWS RIGHT/PA [place] ST(AO)on [...] are degenerative changes present in the spine. IMPRESSION:Degenerat mati changes. No acute process Interpreted By: Laila Muse MD Preliminary Report By: Laila Muse MD Electronically Signed By: Laila Muse MD Dictated Date: 08/29/2018 4:30:13 PM Prelim Date: 08/29/2018 4:30:13 PM Sign Date: 08/29/2018 4:30:51 PM Normal [facility] ([place]) Vital Signs Date Time Vital Sign Value Performing Clinician Aroni robert 02-27-2025 14:30-0400 Body height 180.[address] Guilherme Butt MD Work Phone: [facility] 01-29-2025 10:39-0400 Body mass index (BMI) [Ratio] 24.5 kg/m2 Dr. Guilherme Butt MD Work Phone: [facility] 01-29-2025 10:39-0400 Body weight 79.[address] Guilherme Butt MD Work Phone: [facility] 01-29-2025 10:39-0400 Diastolic blood pressure 81 mm[Hg] Dr. Guilherme Butt MD Work Phone: [facility] 01-29-2025 10:39-0400 Heart rate 82 /min Dr. Guilherme Butt MD Work Phone: [facility] 01-29-2025 10:39-0400 Respiratory rate 18 /min Dr. Guilherme Butt MD Work Phone: [facility] 01-29-2025 10:39-0400 SaO2% (BldA) [Mass fraction] 96 % Dr. Guilherme Butt MD Work Phone: [facility] 01-29-2025 10:39-0400 Systolic blood pressure 141 mm[Hg] Dr. Guilherme Butt MD Work Phone: [facility] 11-26-2024 16:12-0400 Body height 180.[address] Guilherme Butt MD Work Phone: [facility] 10-08-2024 14:25-0400 Body height 180.[address] Guilherme Butt MD Work Phone: [facility] 10-08-2024 14:25-0400 Body mass index (BMI) [Ratio] 25.7 kg/m2 Dr. Guilherme Butt MD Work Phone: [facility] [facility] 10-08-2024 14:25-0400 Body weight 83.[address] Guilherme Butt MD Work Phone: [facility] 10-08-2024 14:25-0400 Diastolic blood pressure 66 mm[Hg] Dr. Guilherme Butt MD Work Phone: [facility] 10-08-2024 14:25-0400 Heart rate 80 /min Dr. Guilherme Butt MD Work Phone: [facility] 10-08-2024 14:25-0400 Respiratory rate 18 /min Dr. Guilherme Butt MD Work Phone: [facility] 10-08-2024 14:25-0400 Systolic blood pressure 96 mm[Hg] Dr. Guilherme Butt MD Work Phone: [facility] 03-12-2023 13:59-0400 Body height 180.[address] Guilherme Butt Work Phone: [facility] 02-12-2023 16:01-0400 Diastolic blood pressure 76 mm[Hg] Dr. Guilherme Butt Work Phone: [facility] 02-12-2023 16:01-0400 Systolic blood pressure 131 mm[Hg] Dr. Guilherme Butt Work Phone: [facility] 02-12-2023 14:24-0400 Body temperature 97.8 [degF] Dr. Guilherme Butt Work Phone: [facility] 02-12-2023 14:24-0400 Heart rate 68 /min Dr. Guilherme Butt Work Phone: [facility] 02-12-2023 14:24-0400 Respiratory rate 18 /min Dr. Guilherme Butt Work Phone: [facility] 02-12-2023 14:24-0400 SaO2% (BldA) [Mass fraction] 93 % Dr. Guilherme Butt Work Phone: [facility] 02-12-2023 14:00-0400 Inhaled oxygen flow rate 3 L/min Dr. Guilherme Butt Work Phone: [facility] 02-12-2023 09:26-0400 Body height 180.[address] Guilherme Butt Work Phone: [facility] 02-12-2023 09:26-0400 Body mass index (BMI) [Ratio] 25.4 kg/m2 Dr. Guilherme Butt Work Phone: [facility] 02-12-2023 09:26-0400 Body weight 82.[address] Guilherme Butt Work Phone: [facility] 01-11-2023 14:37-0400 Body mass index (BMI) [Ratio] 24.9 kg/m2 Dr. Guilherme Butt Work Phone: [facility] 01-11-2023 14:37-0400 Body weight 83.[address] Guilherme Butt Work Phone: [facility] 01-11-2023 14:37-0400 Diastolic blood pressure 85 mm[Hg] Dr. Guilherme Butt Work Phone: [facility] 01-11-2023 14:37-0400 Respiratory rate 16 /min Dr. Guilherme Butt Work Phone: [facility] 01-11-2023 14:37-0400 Systolic blood pressure 130 mm[Hg] Dr. Guilherme Butt Work Phone: [facility] 09-04-2022 10:58-0400 Body height 182.[address] Guilherme Butt Work Phone: [facility] 09-04-2022 10:58-0400 Body mass index (BMI) [Ratio] 24.7 kg/m2 Dr. Guilherme Butt Work Phone: [facility] 09-04-2022 10:58-0400 Body weight 82.[address] Guilherme Butt Work Phone: [facility] 09-04-2022 10:58-0400 Diastolic blood pressure 48 mm[Hg] Dr. Guilherme Butt Work Phone: [facility] 09-04-2022 10:58-0400 Heart rate 84 /min Dr. Guilherme Butt Work Phone: [facility] 09-04-2022 10:58-0400 Respiratory rate 16 /min Dr. Guilherme Butt Work Phone: [facility] 09-04-2022 10:58-0400 Systolic blood pressure 80 mm[Hg] Dr. Guilherme Butt Work Phone: [facility] 08-02-2022 07:41-0400 Diastolic blood pressure 79 mm[Hg] Dr. Guilherme Butt Work Phone: [facility] 08-02-2022 07:41-0400 Heart rate 71 /min Dr. Guilherme Butt Work Phone: [facility] 08-02-2022 07:41-0400 Respiratory rate 16 /min Dr. Guilherme Butt Work Phone: [facility] 08-02-2022 07:41-0400 SaO2% (BldA) [Mass fraction] 97 % Dr. Guilherme Butt Work Phone: [facility] 08-02-2022 07:41-0400 Systolic blood pressure 114 mm[Hg] Dr. Guilherme Butt Work Phone: [facility] 08-02-2022 07:08-0400 Body height 182.[address] Guilherme Butt Work Phone: [facility] 08-02-2022 07:08-0400 Body mass index (BMI) [Ratio] 25.2 kg/m2 Dr. Guilherme Butt Work Phone: [facility] 08-02-2022 07:08-0400 Body temperature 98 [degF] Dr. Guilherme Butt Work Phone: [facility] 08-02-2022 07:08-0400 Body weight 84.[address] Guilherme Butt Work Phone: [facility] 05-22-2022 13:15-0500 Body height 182.[address] Guilherme Butt Work Phone: [facility] 04-03-2022 15:00-0500 Diastolic blood pressure 73 mm[Hg] Dr. Guilherme Butt Work Phone: [facility] 04-03-2022 15:00-0500 Heart rate 58 /min Dr. Guilherme Butt Work Phone: [facility] 04-03-2022 15:00-0500 Respiratory rate 15 /min Dr. Guilherme Butt Work Phone: [facility] 04-03-2022 15:00-0500 SaO2% (BldA) [Mass fraction] 95 % Dr. Guilherme Butt Work Phone: [facility] 04-03-2022 15:00-0500 Systolic blood pressure 138 mm[Hg] Dr. Guilherme Butt Work Phone: [facility] 04-03-2022 13:00-0500 Body temperature 97.8 [degF] Dr. Guilherme Butt Work Phone: [facility] 04-03-2022 10:08-0500 Body mass index (BMI) [Ratio] 24.9 kg/m2 Dr. Guilherme Butt Work Phone: [facility] 04-03-2022 10:08-0500 Body weight 83.[address] Guilherme Butt Work Phone: [facility] 10-03-2021 00:46-0400 Diastolic blood pressure 80 mm[Hg] TIFFANY Gray [facility] Work Phone: 10-03-2021 00:46-0400 Heart rate 91 /min TIFFANY Gray [facility] Work Phone: 10-03-2021 00:46-0400 Respiratory rate 16 /min TIFFANY Gray [facility] Work Phone: 10-03-2021 00:46-0400 SaO2% (BldA) [Mass fraction] 95 % TIFFANY Gray [facility] Work Phone: 10-03-2021 00:46-0400 Systolic blood pressure 160 mm[Hg] TIFFANY Gray [facility] Work Phone: 10-02-2021 20:20-0400 Body height 177.8 cm TIFFANY Gray [facility] Work Phone: 10-02-2021 20:20-0400 Body mass index (BMI) [Ratio] 27.8 kg/m2 TIFFANY Gray [facility] Work Phone: 10-02-2021 20:20-0400 Body temperature 98.7 [degF] INTERNATIONAL ACCOUNT EXECUTIVE-Devan Gray INTERNATIONAL ACCOUNT EXECUTIVE [facility] Work Phone: 10-02-2021 20:20-0400 Body weight 88 kg INTERNATIONAL ACCOUNT EXECUTIVE-C Cecy Gray INTERNATIONAL ACCOUNT EXECUTIVE [facility] Work Phone: Encounters Encounter Date Encounter Type Care Provider Facility Start: 02-20-2025 ambulatory Guilherme SHI Fa cility:[facility] Start: 02-20-2025 Registered Referred Guilherme Butt MD [facility] Start: 01-29-2025 End: 01-29-2025 Patient encounter procedure Lucita Rosas [place] [facility] Work Phone: Start: 01-29-2025 End: 01-29-[address] Guilherme Butt MD Work Phone: [facility] Start: 01-27-2025 End: 01-27-[address] Guilherme Butt MD Work Phone: [facility] Start: 01-27-2025 End: 01-27-[address] Guilherme Butt MD [facility] Work Phone: Start: 01-23-2025 ambulatory Guilherme SHI Fa cility:[facility] Start: 01-23-2025 [facility]: 01-07-2025 End: 01-07-[address] Guilherme Butt MD Work Phone: [facility] Start: 01-07-2025 End: 01-07-2025 Patient encounter procedure Cecy Gray INTERNATIONAL ACCOUNT EXECUTIVE -[facility] Work Phone: Start: 12-23-2024 ambulatory Guilherme SHI Fa cility:[facility] Start: 12-23-2024 Registered Referred Guilherme Butt MD [facility] Start: 12-19-2024 [facility] Start: 12-19-2024 End: 12-19-2024 ambulatory Kellyanne Yonasjack SHI Facility:[facility] Start: 12-12-2024 End: 12-12-[address] Guilherme Butt MD Work Phone: [facility] Start: 12-12-2024 End: 12-12-2024 Patient encounter procedure Cecy Gray NP-[facility] Work Phone: Start: 12-12-2024 Non-patient / Non-visit Dr. Jessica LEVIN -[facility] Start: 12-12-2024 End: 12-12-[address] Guilherme Butt MD Work Phone: -[facility] Start: 12-12-2024 End: 12-12-[address] Dwain Yen MD -[facility] Work Phone: Start: 12-12-2024 End: 12-12-2024 ambulatory Guilherme Roblesjessenia Facility:[facility] Start: 11-21-2024 ambulatory Guilherme SHI Fa cility:[facility] Start: 11-21-2024 Registered Referred Guilherme Butt MD [facility] Start: 11-18-2024 End: 11-18-[address] Guilherme Butt MD Work Phone: [facility] Start: 11-18-2024 End: 11-18-[address] Guilherme Butt MD -[facility] Work Phone: Start: 10-24-2024 ambulatory Cecy SHI Fac ility:[facility] Start: 10-24-2024 Registered Referred Cecy ALLEN [facility] Start: 10-16-2024 End: 10-16-[address] Guilherme Butt MD Work Phone: [facility] Start: 10-16-2024 End: 10-16-2024 Patient encounter procedure Camilo AGRAWAL -[facility] Work Phone: Start: 10-08-2024 End: 10-08-[address] Dwain Yen MD -[facility] Work Phone: Start: 10-08-2024 End: 10-08-[address] Guilherme Butt MD Work Phone: [facility] Work Phone: Start: 09-23-2024 End: 09-23-[address] Guilherme Butt MD Work Phone: [facility] Start: 09-23-2024 End: 09-23-[address] Guilherme Butt MD -[facility] Work Phone: Start: 09-19-2024 End: 09-19-[address] Guilherme Butt MD Work Phone: [facility] Work Phone: Start: 09-19-2024 End: 09-19-2024 Departed Referred Guilherme Butt MD -[facility] Start: 09-19-2024 Registered Referred Guilherme Butt MD -[facility] Start: 09-19-2024 End: 09-19-2024 ambulatory Guilherme SHI Facility:[facility] Start: 08-22-2024 End: 08-22-[address] Guilherme Butt MD Work Phone: [facility] Work Phone: Start: 08-22-2024 End: 08-22-2024 Departed Referred Cecy ALLEN -[facility] Start: 08-22-2024 End: 08-22-2024 ambulatory Cecy SHI Facility:[facility] Start: 08-12-2024 End: 08-12-[address] Guilherme Butt MD Work Phone: [facility] Work Phone: Start: 08-12-2024 End: 08-12-2024 Patient encounter procedure Cecy ALLEN -[facility] Work Phone: Start: 07-29-2024 End: 07-29-2024 ambulatory Efewongbe Oleghe Facility:[facility] Start: 07-29-2024 End: 07-29-[address] Guilherme Butt MD -[facility] Work Phone: Start: 07-25-2024 End: 07-25-[address] Guilherme Butt MD Work Phone: [facility] Work Phone: Start: 07-25-2024 End: 07-25-2024 [facility] Start: 07-25-2024 End: 07-25-2024 ambulatory Efewongbe Olemariane OLS Facility:[facility] Start: 07-03-2024 End: 07-03-2024 ambulatory Efewongbe Oleghe Facility:[facility] Start: 07-03-2024 End: 07-03-2024 Patient encounter procedure Camilo AGRAWAL -[facility] Work Phone: Start: 06-27-2024 ambulatory Efewalfredobe Travise OLS Fa cility:[facility] Start: 06-27-2024 [facility] Start: 05-27-2024 End: 05-27-2024 ambulatory Efewongbe Oleghe Facility:[facility] Start: 05-27-2024 End: 05-27-[address] Guilherme Butt MD -[facility] Work Phone: Start: 05-23-2024 End: 05-23-2024 [facility] Start: 05-23-2024 End: 05-23-2024 ambulatory Guilherme SHI Facility:[facility] Start: 04-25-2024 End: 04-25-2024 Departed Referred Guilherme Butt MD [facility] Start: 04-25-2024 End: 04-25-2024 ambulatory Guilherme Butt OLS Facility:[facility] Start: 04-15-2024 End: 04-15-2024 ambulatory Kellyanne Travisjessenia Facility[place] Start: 03-20-2024 End: 03-21-2024 ambulatory Guilherme Butt OLS Facility:[facility] Start: 09-06-2023 End: 09-06-[address] Guilherme Butt Work Phone: [facility] Work Phone: Start: 08-24-2023 End: 08-24-[address] Guilherme Butt Work Phone: [facility] Work Phone: Start: 08-24-2023 End: 08-24-[address] Guilherme Butt Work Phone: [facility] Start: 07-24-2023 End: 07-24-[address] Guilherme Butt Work Phone: [facility] Work Phone: Start: 07-20-2023 End: 07-20-[address] Guilherme Butt Work Phone: [facility] Work Phone: Start: 07-20-2023 End: 07-20-[address] Guilherme Butt Work Phone: [facility] Start: 07-05-2023 End: 07-05-[address] Guilherme Butt Work Phone: [facility] Work Phone: Start: 06-22-2023 End: 06-22-[address] Guilherme Butt Work Phone: [facility] Start: 05-29-2023 End: 05-29-[address] Guilherme Butt Work Phone: [facility] Work Phone: Start: 05-25-2023 End: 05-25-[address] Guilherme Butt Work Phone: [facility] Work Phone: Start: 05-25-2023 End: 05-25-[address] Guilherme Butt Work Phone: [facility] Start: 04-20-2023 End: 04-20-[address] Guilherme Butt Work Phone: [facility] Start: 04-16-2023 End: 04-16-[address] Guilherme Butt Work Phone: [facility] Work Phone: Start: 03-27-2023 End: 03-27-[address] Guilherme Butt Work Phone: [facility] Work Phone: Start: 03-23-2023 End: 03-23-[address] Guilherme Butt Work Phone: [facility] Work Phone: Start: 03-23-2023 End: 03-23-[address] Guilherme uBtt Work Phone: [facility] Start: 03-07-2023 End: 03-07-[address] Guilherme Butt Work Phone: [facility] Work Phone: Start: 02-23-2023 End: 02-23-[address] Guilherme Butt Work Phone: [facility] Work Phone: Start: 02-23-2023 End: 02-23-[address] Guilherme Butt Work Phone: [facility] Start: 02-13-2023 End: 02-13-[address] Guilherme Butt Work Phone: [facility] Work Phone: Start: 02-12-2023 Non-patient / Non-visit Dr. Roselia Butt Work Phone: [facility] Start: 02-12-2023 End: 02-12-2023 Admission to same day surgery center [facility] Start: 02-12-2023 End: 02-12-[address] Guilherme Butt Work Phone: [facility] Work Phone: Start: 02-06-2023 End: 02-06-[address] Guilherme Butt Work Phone: [facility] Start: 02-06-[address] Ann Butt Work Phone: [facility] Start: 01-30-2023 End: 01-30-[address] Guilherme Butt Work Phone: [facility] Work Phone: Start: 01-19-2023 End: 01-19-[address] Guilherme Butt Work Phone: [facility] Start: 01-11-2023 End: 01-11-[address] Guilherme Butt Work Phone: [facility] Work Phone: Start: 01-03-2023 End: 01-03-[address] Guilherme Butt Work Phone: [facility] Work Phone: Start: 12-22-2022 End: 12-22-[address] Guilherme Butt Work Phone: [facility] Work Phone: Start: 12-22-2022 End: 12-22-[address] Guilherme Butt Work Phone: [facility] Start: 12-22-[address] Ann Butt Work Phone: [facility] Start: 11-28-2022 End: 11-28-[address] Guilherme Butt Work Phone: [facility] Work Phone: Start: 11-24-2022 End: 11-24-[address] Guilherme Butt Work Phone: [facility] Work Phone: Start: 11-24-2022 End: 11-24-[address] Guilherme Butt Work Phone: [facility] Start: 11-24-[address] Ann Butt Work Phone: [facility] Start: 11-08-2022 End: 11-08-[address] Guilherme Butt Work Phone: [facility] Work Phone: Start: 10-20-2022 End: 10-20-[address] Guilherme Butt Work Phone: [facility] Work Phone: Start: 10-20-2022 End: 10-20-[address] Guilherme Butt Work Phone: [facility] Start: 10-03-2022 End: 10-03-[address] Guilherme Butt Work Phone: [facility] Work Phone: Start: 09-22-2022 End: 09-22-[address] Guilherme Butt Work Phone: [facility] Start: 09-21-2022 Non-patient / Non-visit Dr. Roselia Butt Work Phone: [facility] Start: 09-21-2022 End: 09-21-[address] [facility] Start: 09-04-2022 End: 09-04-[address] Guilherme Butt Work Phone: [facility] Start: 08-25-2022 End: 08-25-[address] Guilehrme Butt Work Phone: [facility] Work Phone: Start: 08-25-2022 End: 08-25-[address] Guilherme Butt Work Phone: [facility] Start: 08-23-2022 Non-patient / Non-visit Dr. Roselia Butt Work Phone: [facility] Start: 08-10-2022 End: 08-10-[address] Guilherme Butt Work Phone: [facility] Start: 08-02-2022 End: 08-02-[address] Guilherme Butt Work Phone: [facility] Start: 08-02-2022 End: 08-02-2022 Emergency department patient visit Dr. Guilherme Butt Work Phone: [facility] Start: 07-25-2022 End: 07-25-[address] Guilherme Butt Work Phone: [facility] Start: 07-21-2022 End: 07-21-[address] Guilherme Butt Work Phone: [facility] Work Phone: Start: 07-21-2022 End: 07-21-[address] Guilherme Butt Work Phone: [facility] Start: 07-21-[address] Ann Butt Work Phone: [facility] Start: 06-27-2022 End: 06-27-[address] Guilherme Butt Work Phone: [facility] Start: 06-23-2022 End: 06-23-[address] Guilherme Butt Work Phone: [facility] Work Phone: Start: 06-23-2022 End: 06-23-[address] Guilherme Butt Work Phone: [facility] Start: 06-23-[address] Ann Butt Work Phone: [facility] Start: 06-06-2022 End: 06-06-[address] Guilherme Butt Work Phone: [facility] Start: 05-26-2022 End: 05-26-[address] Guilherme Butt Work Phone: [facility] Work Phone: Start: 05-26-2022 End: 05-26-[address] Guilherme Butt Work Phone: [facility] Start: 05-26-[address] Ann Butt Work Phone: [facility] Start: 05-18-2022 End: 05-18-[address] Guilherme Butt Work Phone: [facility] Start: 05-02-2022 End: 05-02-[address] Guilherme Butt Work Phone: [facility] Start: 04-21-2022 End: 04-21-[address] Guilherme Butt Work Phone: [facility] Work Phone: Start: 04-21-2022 End: 04-21-[address] Guilherme Butt Work Phone: [facility] Start: 04-21-[address] Ann Butt Work Phone: [facility] Start: 04-04-2022 End: 04-04-[address] Guilherme Butt Work Phone: [facility] Start: 04-03-2022 End: 04-03-[address] Guilherme Butt Work Phone: [facility] Start: 04-03-2022 End: 04-03-2022 Emergency department patient visit Dr. Guilherme Butt Work Phone: [facility] Start: 03-28-2022 End: 03-28-[address] Guilherme Butt Work Phone: [facility] Start: 03-24-2022 End: 03-24-[address] Guilherme Butt Work Phone: [facility] Work Phone: Start: 03-24-2022 End: 03-24-[address] Guilherme Butt Work Phone: [facility] Start: 02-24-2022 End: 02-24-[address] Guilherme Butt Work Phone: [facility] Start: 02-24-[address] Maikel allen Work Phone: [facility] Start: 02-07-2022 End: 02-07-[address] Maikel Mosquera Work Phone: [facility] Work Phone: Start: 02-07-2022 End: 02-07-[address] Maikel Mosquera Work Phone: [facility] Start: 02-07-[address] Maikel allen Work Phone: [facility] Start: 01-20-2022 End: 01-20-[address] Maikel Mosquera Work Phone: [facility] Work Phone: Start: 01-20-2022 End: 01-20-[address] Maikel Mosquera Work Phone: [facility] Start: 12-23-2021 End: 12-23-[address] Maikel Mosquera Work Phone: [phone] [place] [address] Work Phone: Start: 12-23-2021 End: 12-23-[address] Maikel Mosquera Work Phone: [phone] [place] [address] Start: 12-12-2021 End: 12-12-[address] Maikel Mosquera Work Phone: [facility] Start: 11-18-2021 End: 11-18-2021 Departed Referred AXEL-Devan Gray INTERNATIONAL ACCOUNT EXECUTIVE [facility] Start: 10-21-2021 End: 10-21-2021 Departed Referred INTERNATIONAL ACCOUNT EXECUTIVE-Devan Gray INTERNATIONAL ACCOUNT EXECUTIVE [facility] Start: 10-02-2021 End: 10-03-2021 Emergency department patient visit INTERNATIONAL ACCOUNT EXECUTIVE-Devan Gray INTERNATIONAL ACCOUNT EXECUTIVE [facility] Start: 09-23-2021 End: 09-23-2021 Departed Referred INTERNATIONAL ACCOUNT EXECUTIVE-Devan Gray INTERNATIONAL ACCOUNT EXECUTIVE [facility] Start: 09-23-2021 Registered Referred INTERNATIONAL ACCOUNT EXECUTIVE-Devan Gray INTERNATIONAL ACCOUNT EXECUTIVE [facility] Start: 09-19-2021 End: 09-19-2021 Patient encounter procedure INTERNATIONAL ACCOUNT EXECUTIVE-Devan Gray INTERNATIONAL ACCOUNT EXECUTIVE [facility] Start: 08-19-2021 End: 08-19-2021 Departed Referred [facility] Start: 08-19-2021 Registered Referred [facility] Start: 07-22-2021 End: 07-22-2021 Departed Referred [facility] Start: 07-22-2021 Registered Referred [facility] Start: 06-24-2021 End: 06-24-2021 Departed Referred [facility] Start: 05-27-2021 End: 05-27-2021 Departed Referred [facility] Procedures Date Procedure Procedure Detail Performing Clinician [...] CT of head without contrast TIFFANY Gray INTERNATIONAL ACCOUNT EXECUTIVE Plan of Treatment Date Care Activity Detail Author Start: 01-29-2025 End: 01-29-2025 Evaluation of diagnostic study results [facility] Start: 12-23-2024 [facility] Start: 12-23-2024 Bacteria identified in Urine by Culture Urine Culture [facility] Start: 02-12-2023 Anesthesia intraperi toneal lower abd w/laps nos ANESTH SURG LOWER ABDOMEN [facility] Start: 02-12-2023 Laparoscopy surg rpr initial inguinal hernia LAP ING HERNIA REPAIR INIT [facility] Start: 02-12-2023 Patient discharge [facility] Start: 02-12-2023 [facility] NM Heart Views W str ess and W radionuclide IV [facility] Patient Education [facility] Work Phone: Patient referral [facility] Work Phone: Urine culture [facility] Payers Date Payer Category Payer Self-pay [id number] 2024 Unknown [id number] 2024 Unknown [id number] 2014 Unknown [id number] Medicare [id number] Unknown [id number] Unknown [id number] 2.16.8 40.1.777055.3.579.2.462 Unknown [id number] 2.16.8 40.1.285076.3.579.2.462 Unknown [id number] 2.16.8 40.1.254866.3.579.2.462 Unknown [id number] 2.16.8 40.1.827525.3.579.2.462 Unknown [id number] 2.16.8 40.1.345257.3.579.2.462 Unknown [id number] 2.16.8 40.1.191210.3.579.2.462 Unknown [id number] 2.16.8 40.1.547571.3.579.2.462 Unknown [id number] 2.16.8 40.1.518256.3.579.2.462 Unknown [id number] 2.16.8 40.1.399112.3.579.2.462 Unknown [id number] 2.16.8 40.1.606554.3.579.2.462 Unknown [id number] 2.16.8 40.1.367035.3.579.2.462 Unknown [id number] 2.16.8 40.1.392149.3.579.2.462 Unknown [id number] 2.16.8 40.1.685858.3.579.2.462 Unknown [id number] 2.16.8 40.1.600057.3.579.2.462 Unknown [id number] 2.16.8 40.1.262025.3.579.2.462 Unknown [id number] 2.16.8 40.1.670180.3.579.2.462 Unknown [id number] 2.16.8 40.1.289712.3.579.2.462 Unknown [id number] 2.16.8 40.1.817208.3.579.2.462 Unknown [id number] 2.16.8 40.1.159959.3.579.2.462 Unknown [id number] 2.16.8 40.1.387838.3.579.2.462 Unknown [id number] 2.16.8 40.1.004490.3.579.2.462 Unknown [id number] 2.16.8 40.1.153622.3.579.2.462 Unknown [id number] 2.16.8 40.1.728138.3.579.2.462 Unknown [id number] 2.16.8 40.1.648100.3.579.2.462 Unknown [id number] 2.16.8 40.1.068265.3.579.2.462 Unknown [id number] 2.16.8 40.1.392239.3.579.2.462 Unknown [id number] 2.16.8 40.1.026191.3.579.2.462 Unknown [id number] 2.16.8 40.1.855785.3.579.2.462 Unknown [id number] 2.16.8 40.1.565747.3.579.2.462 Social History Date Type Detail Facility Start: 07-24-2016 End: 03-12-2023 Tobacco smoking status ARIS Unknown if ever smoked [facility] Start: 04-21-2021 None [facility] Start: 04-21-2021 Non-smoker [facility] Start: 1945 Sex Assigned At Male [facility] Start: 03-12-2023 End: 02-27-2025 Tobacco smoking status NHIS Ex-smoker (finding) [facility] Start: 08-15-2024 Sex Male (finding) [facility] Sex Male [facility] Medical Equipment Procedure Code Equipment Code Equipment Origin al Text Equipment Identifier Dates Extra-gynaecolog ical surgical mesh, composite-polymer [id number] FDA Start: 02-12-2023 Goals Date Patient Goal Desired Activity /State Mental Status Date Assessment Result Facility 02-12-2023 Cognitive function Level Of Cons ciousness Follows Commands;Drowsy [facility] Work Phone: 04-03-2022 Cognitive function Level Of Cons ciousness Awake;Alert;Appropriate [facility] Work Phone: 10-02-2021 Cognitive function Voice/Name [facility] Work Phone: Clinical Notes 11-11-2005 to 01-29-2025 Note Date & Type Note Facility 01-29-2025 Progress note [facility] 01-29-2025 Progress note Note Date/Time January 29, 2025 3:56pm [facility] [address] [place], [place] [address] OFFICE VISIT Date of Service: 01/29/25 MR#: [id number] Acct: [id number] Name: IGOR HANSEN Rep #: [id number] : 1945 Provider: TANJA Scott Age/Sex: 79/M Location[facility] Status: Signed HPI HPI History of Present Illness Details: Gabi Hansen is a 79-year-old gentleman with a history of aortic valve disease with aortic valve replacement in 2005. He had a bioprosthetic aortic valve placed. He also has a history of paroxysmal atrial fibrillation. He is not anticoagulated due to his history of falls. He also has a history of hypertension and Parkinson's disease. He does reside at [facility]. He was seen by his PCP over there and had noted chest discomfort. He had a stress test in 2022 that was negative for ischemia. Echocardiogram in December 2024 demonstrated an ejection fraction of 50% with stable bioprosthetic aortic valve. Severely dilated aortic root measuring 5.7 cm. Pt notes that he woke up a few nights ago with chest pain. It lasted approx oneminute. He notes that they occur approx once a month. He does not have any worsening SOB. He does not have any palpitations. EKG today demonstrates SR with 1st AVB with a LBBB. 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 Is patient in pain?: No Allergies No Known Allergies Allergy (Verified 01/29/25 15:20) Medications ?Medication ?Instructions ?Recorded ?Confirmed ?Type acetaminophen 325 mg tablet 650 mg PO TID 09/04/22 History aluminum-mag hydroxide-simethicone 15 ml PO DAILY PRN indigestion 09/04/22 01/29/25 History 400 mg-400 mg-40 mg/5 mL oral susp (Mylanta Maximum Strength) aspirin 81 mg tablet,delayed 81 mg PO DAILY #30 tabs 0 09/04/22 01/29/25 Rx release (Adult Low Dose Aspirin) bisacodyl 10 mg rectal suppository 10 mg MN DAILY PRN constipation 09/04/22 History carbidopa ER 50 mg-levodopa 200 mg 1 tab PO QHS 01/29/25 History tablet,extended release duloxetine 60 mg capsule,delayed 60 mg PO DAILY 01/29/25 History release magnesium hydroxide 400 mg/5 mL 30 ml PO DAILY PRN sto mach upset 09/04/22 01/29/25 History oral suspension (Milk of Magnesia) melatonin 10 mg tablet 10 mg PO HS 09/04/22 5 History polyethylene glycol 3350 17 gram 17 g PO DAILY 3 01/29/25 History oral powder packet (Miralax) quetiapine 50 mg tablet 50 mg PO DAILY 09/04/2201/12 History rivastigmine tartrate 4.5 mg 6 mg PO BID 09/04/2201/12 History capsule sennosides 8.6 mg-docusate sodium 1 tab-cap PO BID 01/29/25 History 50 mg tablet (Senna-S) carbidopa 25 mg-levodopa 100 mg 1 tab PO TID 01/11/23 01/29/25 History tablet pimavanserin 34 mg capsule 34 mg PO QDAY 10/08/2401/12 History (Nuplazid) metoprolol tartrate 25 mg tablet 25 mg PO BID #60 tabs 01/29/25 01/29/25 Rx quetiapine 100 mg tablet 75 mg PO QHS 01/29/25 History Ejection fraction %: 50 Have you fallen in the past year?: Yes [facility] Medical History Lives in [place] [facility] Walker as ambulation aid Syncope History of edema History of stress test History of echocardiogram Cardiology follow-up encounter CKD (chronic kidney disease) stage 3, GFR 30-59 ml/min Essential hypertension Parkinson's disease Anxiety Hallucination Depression Back pain Benign prostate hyperplasia Endocarditis Kidney disease Hypertension Atrial fibrillation Dementia Parkinson disease Valvular heart disease Cardiac arrhythmia Chronic osteoarthritis Surgical History History of robot-assisted repair of left inguinal hernia (~02/2023) History of back surgery History of bunionectomy of right great toe Hx of cystoscopy History of ascending aortic replacement (~11/21/05) History of aortic valve replacement with bioprosthetic valve (~11/21/05) History of hip replacement History of foot surgery Family History Mother Cancer Stomach Father Cancer Prostate COPD (chronic obstructive pulmonary disease) Social History Smoking Status: Former smoker alcohol intake: never substance use type: does not use caffeine: No ROS Const Const: Positive for fatigue and weakness; Negative for headache(s) or frequent falls Eyes Eyes: Negative for blurry vision ENT ENT: Negative for headache(s), dizziness or Nosebleed/epistaxis Cardio Chest Pain: Yes Palpitations: No Edema: None Muscle aches with walking: None Resp Respiratory: Negative for SOB with activity, SOB at rest or SOB orthopnea\SOB lying down GI GI: Negative nausea, vomiting, heartburn, bright, red blood in stools or black,tarry stools : Negative for hematuria Neuro Neuro: Positive for weakness; Negative for dizziness, lightheadedness, near syncope, syncope, frequent falls, headache(s) or blurry vision Endo Endo: Positive for fatigue Cardiology Exam Const Appearance: cooperative, comfortable, no acute distress, frail appearing and other (Ambulates with walker.) Nutritional Appearance: well nourished Neck Neck: no JVD Carotids: Negative bruit Chest Auscultation: Bilateral: Clear to Auscultation Cardio Rate: regular rate Rhythm: regular rhythm Heart sounds: S1 normal, S2 normal and murmur (3/6 systolic murmur at base) Neuro General: patient alert, patient awake and patient oriented x3 Extremities Lower Extremity Edema: Trace: Bilateral Supplemental Info Supplemental Information Echocardiogram from 12/12/2024: Interpretation Summary Normal LV size. The left ventricular ejection fraction is 50 %. Stage 1 diastolic dysfunction. Bioprosthetic aortic valve. Severely dilated aortic root. Aortic root measures approximately 5.7 cm. Echocardiogram 09/21/2022: Interpretation Summary Normal LV size. The estimated ejection fraction is 55 %. Moderately dilated aortic root. Bioprosthetic aortic valve. Mild concentric left ventricular hypertrophy. Stage 1 diastolic dysfunction. Pulmonary artery systolic pressure is 28 mmHg. Stress Test 09/21/2022: Conclusion: Normal pharmacologic myocardial perfusion stress test. Preserved ejection fraction. Labs: LDL Cholesterol, (0-130) 93 mg/dL HDL Cholesterol, (40-) 50 mg/dL Cholesterol, (<=200) 155 mg/dL Triglycerides, (-199) 65 mg/dL Diagnostics: Electrocardiogram Echocardiogram Stress Test Stress Test Nuclear Medicine Chest X-Ray Past Visits: Cardiology Visit Today Assessment and Plan Assessment and Plan (1) Chest pain: Status: Chronic Plan: Chest pain seems to be atypical for angina. As patient is not very active and chest pain does not seem to occur with activity, it is approximately once a month and only occurs at night. Per patient. Will opt to treat medically at this time. If this does not resolve will reconsider additional cardiac testing. (2) Paroxysmal atrial fibrillation: Status: Chronic Plan: History of falls, not a candidate for anticoagulation. Continue aspirin. Will start patient on low-dose metoprolol. (3) History of aortic valve replacement with bioprosthetic valve: Status: Acute Comment: 27mm Medtronic mosaic porcine bioprosthesis- resection of aneurysm of ascendingaorta and replacement of a hemisheild graft @ [facility] 11/21/05 Plan: Most recent echocardiogram demonstrated stable aortic valve. (4) Parkinson's disease: Status: Chronic Plan: Manage as per primary care physician/neurology. (5) History of ascending aortic replacement: Status: Acute Comment: resection of aneurysm of ascending aorta and replacement of a hemisheild graft @ [facility] 11/21/05 Plan: Echocardiogram done in December 2025 that demonstrated severely enlarged ascendingaorta. This was previously discussed with his son about not pursuing a CT scan to further evaluate. Did discuss this with patient. He does not wish to pursueat this time if he does not need to. Agree with this as I do feel that if he needed to have this surgically repaired he would be at a high risk. (6) Essential hypertension: Status: Chronic Plan: Patient's blood pressure is slightly elevated. Would like to start patient on metoprolol 25 mg twice a day. Hopefully this will help with his chest discomfort. Orders: Orders 12 Lead EKG performed by [facility] Today R07.9 - Chest pain, unspecified Medications: New metoprolol tartrate 25 mg PO BID 60 tabs 11RF Plan Details Follow Up: 3 Months (MMM) Coding Level of Care Code Off vis,est,level 4 Diagnoses Chest pain R07.9 Paroxysmal atrial fibrillation I48.0 History of aortic valve replacement with bioprosthetic valve Z95.3 Parkinson's disease G20 History of ascending aortic replacement Z95.828 Essential hypertension I10 Coding Level of Care Code Off vis,est,level 4 Diagnoses Chest pain R07.9 Paroxysmal atrial fibrillation I48.0 History of aortic valve replacement with bioprosthetic valve Z95.3 Parkinson's disease G20 History of ascending aortic replacement Z95.828 Essential hypertension I10 Clinical Quality Measures Falls Risk Screening/Assistive Devices Have you fallen in the past year?: Yes Cardiac Ejection fraction %: 50 01/29/25 1609 <Electronically signed by Lucita Ward> Date _ Lucita AGRAWAL [facility] Signature: Date (if applicable) CC: ~ [facility] Work Phone: 1(483) 635-828705-28-2025 Progress [facility] [address] [place] [address]. [address] [place] [address] OFFICE VISIT Date of Service: 10/08/24 MR#: [id number] Acct: [id number] Name: IGOR HANSEN Rep #: [id number] : 1945 Provider: Dr. 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 (3) Parkinson's [...] Cardiac Ejection fraction %: 55 10/08/24 1443 MD> Date _ Dwain Yen MD Cosigner Signature: Date (if applicable) CC: Dr. Guilherme Butt MD ~ [facility]05-28-2025 Progress note Author Dwain Yen [facility] Note Date/Time October 08, 2024 2:43p m [facility] [address] [place] [address] OFFICE VISIT Date of Service: 10/08/24 MR#: [id number] Acct: [id number] Name: IGOR HANSEN Rere Rep #: [id number] : 1945 Provider: Dr. Isai Yen MD Age/Sex: 79/M Location: 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 (3) Parkinson's [...] applicable) CC: Dr. Guilherme Butt MD ~ [facility] Work Phone: 1(554) 205-349210-02-2023 Discharge summary Author Ori Jonse [facility] February 12, 2023 1:48pm Note Date/Time February 12, 2023 1: 47pm [facility] Medical Records Department [address] [place] [address] Instructions for Home/Discharge Instructions 02/12/23 1347 MR#: [id number] Acct: [id number] Name: IGOR HANSEN Rep #:[id number] : 1945 77 From: Ori wooten MD PCP: Dr. Guilherme Butt MD Status:R [facility] Discharge Instructions Procedure Hernia Diet Discharge [...] to schedule 2 week follow up appointment. [phone] Test Results: Test results from this visit will be discussed in further detail at your follow- up appointment, if applicable. Discharge Plan Admission Attending Provider: Ori Jnoes Primary Care Provider: Guilherme Butt Instructions Additional Instructions / Restrictions: Alternate ibuprofen and Tylenol for pain, may resume aspirin Sunday. Discharge Orders/Prescriptions Prescriptions: No Action acetaminophen 325 mg tablet 650 mg PO TID bisacodyl 10 mg suppository 10 mg MN DAILY PRN (Reason: constipation) carbidopa-levodopa 50-200 mg [...] CC: Dr. Guilherme Butt MD ~ Signed [facility] Work Phone: 1(158) 618-981010-02-2023 Procedure [facility] 02-12-2023 History and physical note Author Ori [facility] February 12, 2023 10:45am Note Date/Time February 12, 2023 10 :46am [facility] Medical Records Department [address] [place] [address] History & Physical Exam 02/12/23 1045 MR#: [id number] Acct: [id number] Name: IGOR HANSEN Rep #:[id number] : 1945 77 From: Ori wooten MD PCP: Dr. Guilherme Butt MD Status:R [facility] Location: [place] [address] History and Physical Date of Admission: 02/12/23 Intake Vital Signs 09/04/2309:58 01/11/2314:37 Height 6 ft 6 ft Weight: 184 lb BMI 24.9 BP 130/85 H Blood Pressure Location Lt brachial Position Sitting Respiration 16 Intake Visit Reasons: INGUINAL HERNIA Chief Complaint: inguinal hernia Wharf Labourer Required: No Is patient in pain?: No [...] bisacodyl 10 mg rectal suppository 10 mg MN DAILY PRN 09/04/22 [History Confirmed 01/11/23] carbidopa [...] 1 tab PO 01/11/23 [History Confirmed 01/11/23] [facility] History Anxiety Atrial fibrillation Back pain [...] inguinal hernia. He comes to from a [place] [facility]. He reports is been there for at [...] MD Pager: [facility] [address] [place] [address], [address] [place] [address] Office: I have examined the patient and the H&P has been reviewed. There are no clinicalchanges since date of exam. 02/12/23 1045 <Electronically signed by Ori Jones MD> Cosigner Signature (if applicable): CC: Dr. Ori Jones MD; Dr. Guilherme Butt MD~ Signed [facility] Work Phone: 1(487) 545-661607-01-2006 Evaluation note* Diagnosis Onset Date Resolution Status History of aortic valve repl acement with bioprosthetic valve November, acute Chest pain chronic Essential hypertension chron ic Parkinson's disease chronic Paroxysmal atrial fibrillation chronic [facility] Work Phone: 1(852) 961-330707-01-2006 Evaluation note* Diagnosis Onset Date Resolution Status Admit Date History of aortic valve replacement with bioprosthetic valve November, acute October 08, 2024 2 :14pm Parkinson's disease chronic September 122024 2:14pm Paroxysmal atrial fibrillation chron ic October 08, 2024 2:14pm [facility] Work Phone: 1(349) 802-869107-01-2006 Evaluation note* Diagnosis Onset Date Resolution Status Admit Date History of aortic valve replacement with bioprosthetic valve November, acute January 29, 2025 3:18pm History of ascending aortic replacement November, acute January 29, 2025 3:18pm Chest pain chronic January 3:18pm Essential hypertension chronic Se ptember 2024 3:18pm Parkinson's disease chronic Septe mber 2024 3:18pm Paroxysmal atrial fibrillation chron ic January 29, 2025 3:18pm [place] [email or web address] [facility] Work Phone: Discharge summary Author Dr. Callahan [facility] August 02, 2022 7:37am Note Date/Time August 02, 2022 7:1 3am [facility] Medical Records Department [address] [place] [address] Emergency Department Summary 08/02/22 MR#: [id number] Acct: [id number] Name: IGOR HANSEN Rep #:[id number] : 1945 77 From: Matt Cristina PCP: [...] States his hip does not hurt. [place] [facility] patient injured his right hip after fall. PFSH PFS Medical History Anxiety Atrial fibrillation Back pain [...] PO BID 07/24/16 [History Last Taken Unknown] [place] Extract 5 drp PO DAILY 07/24/16 [History Last Taken Unknown] [place] Drink 1 packet PO DAILY 07/24/16 [History [...] tab PO Q4H PRN PRN Pain ##10 03/17/17 [Rx Last Taken Unknown] Allergy/AdvReac Type Severity [...] determinants of health: Geriatric patient, resident of [facility] History obtained from others: EMS Shared [...] Daily Complex Tab 2 tab PO BID [place] Extract 5 drp PO DAILY [place] Drink 1 packet PO DAILY Tumeric/Carcumin 1 [...] your Primary Care Provider. Call [facility] ([phone]) or report to the closest Emergency Room. Call 911 if necessary. 08/02/22 0737 <Electronically signed by Matt Callahan DO> Cosigner Signature (if applicable): CC: Dr. Guilherme Butt MD ~ Signed [facility] Work Phone: Evaluation noteNo assessment information available [facility] Work Phone: Evaluation note* Diagnosis Onset Date Resolution Status Left inguinal hernia acute [facility] Work Phone: Evaluation note* Diagnosis Onset Date Resolution Status Left inguinal hernia acute Left inguinal hernia acute [facility] Work Phone: Hospital Discharge instructions Additional Instructions Alternate ibuprofen and Tylenol for pain, may resume aspirin Sunday. [facility]: Reason for referral (narrative)No reason for referral information availableBl[facility] Work Phone: Summary Purpose Family History No Family History Records Found Relationship Condition Age at Onset Recorded Date/T jina mother Malignant neoplasm Unknown father Malignant neoplasm Unknown Chronic obstructive pulmonary disease Unk nown Advance Directives No Advanced Directives Records Found Advance Directive Response Recorded Date/ Time Living Will Yes July 24, 2016 9:10am Power of Polymerization Oven Operator Yes July 24 9:10am Advance Directive Response Recorded Date/ Time Living Will No October 02, 2021 8 :30pm Power of Polymerization Oven Operator No October 02, 2021 8:30pm Advance Directive Response Recorded Date/ Time Living Will No May 22 1:15pm Power of Polymerization Oven Operator No May 22 1:15pm Advance Directive Response Recorded Date/ Time Living Will No May 22 2:15pm Power of Polymerization Oven Operator No May 22 023 2:15pm Advance Directive Response Recorded Date/ Time Living Will No February 09, 2023 12:16pm Power of Polymerization Oven Operator No January 12:16pm Advance Directive Response Recorded Date/ Time Living Will No March 12 12:59pm Power of Polymerization Oven Operator No March 12, 2023 12:59pm Advance Directive Response Recorded Date/ Time Living Will No March 12 1:59pm Power of Polymerization Oven Operator No March 12, 2023 1:59pm Chief Complaint and Reason for Visit Chief Complaint [facility] LABWORK [facility] LABWORK [facility] LABWORK [facility] BLOOD WORK Chief Complaint [facility] LABWORK [facility] LABWORK [facility] BLOOD WORK MONTHLY EXAM CONFUSION Chief Complaint [facility] LABWORK [facility] BLOOD WORK MONTHLY EXAM [facility] LABWORK CONFUSION LABWORK Chief Complaint [facility] BLOOD W ORK MONTHLY EXAM [facility] LABWORK CONFUSION LABWORK FCI LABWORK Chief Complaint MONTHLY EXAM FCI LABWORK CONFUSION LABWORK [facility] LABWORK MONTHLY EXAM FCI LABWORK Chief Complaint F[facility] LABWORK MONTHLY EXAM [facility] LABWORK LABWORK [facility] LABWORK Chief Complaint [facility] LABWORK [facility]CI LAB WORK [facility] LABWORK MONTHLY EXAM syncope ACUTE CARE VISIT RE-ADMISSION NOTE [facility] READMISSION NOTE NEW CONCERN/PROBLEM Chief Complaint [facility] LAB WOR K [facility] LABWORK MONTHLY EXAM syncope ACUTE CARE VISIT RE-ADMISSION NOTE [facility] LABWORK READMISSION NOTE NEW CONCERN/PROBLEM [facility] LABWORK Chief Complaint RE-ADMISSION NOTE [facility] LAB[facility] READMISSION NOTE NEW CONCERN/PROBLEM [facility] LABWORK MONTHLY [facility] LABWORK MONTHLY NOTE FALL Chief Complaint [facility] LABWORK READMISSION NOTE NEW CONCERN/PROBLEM [facility] LABWORK MONTHLY [facility] LABWORK MONTHLY NOTE [facility] LABWORK MONTHLY FALL NEW COMPLAINT Chief Complaint NEW CONCERN/PROBLEM [facility] LABWORK MONTHLY [facility] LABWORK MONTHLY NOTE [facility] LABWORK MONTHLY FALL NEW COMPLAINT NEW COMPLAINT Amb Documentation [facility] LAB[facility] CP, PREV AVR Reason for Visit 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 Chest pain Essential hypertension Parkinson's disease Paroxysmal atrial fibrillation Chief Complaint CP, PREV AVR CP, EVAL VALVE REPLACEMENT [facility] LABWORK MONTHLY EXAM [facility] LABWORK MONTHLY NOTE LABWORK MONTHLY EXAM Reason for Visit 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 Chest pain Essential hypertension Parkinson's disease Paroxysmal atrial fibrillation Chief Complaint CP, EVAL VALVE REPLA CEMENT [facility]WORK MONTHLY EXAM [facility] LABWORK MONTHLY NOTE LABWORK MONTHLY EXAM Chief Complaint CP, EVAL VALVE REPLA CEMENT [facility] LABWORK MONTHLY EXAM [facility] LABWORK MONTHLY NOTE LABWORK MONTHLY EXAM [facility] LABWORK INGUINAL HERNIA Chief Complaint [facility] LABWORK MONTHLY NOTE LABWORK MONTHLY EXAM [facility] LABWORK ACUTE VISIT INGUINAL HERNIA [facility] LAB WORK MONTHLY EXAM Lap Robotic Left poss Bilateral Ing Lap Robotic Left poss Bilateral Ing Reason for Visit Left inguinal hernia Chief Complaint MONTHLY NOTE LABWORK MONTHLY EXAM [facility] LABWORK ACUTE VISIT INGUINAL HERNIA [facility] LAB WORK MONTHLY EXAM [facility] LAB WORK Lap Robotic Left poss Bilateral Ing Lap Robotic Left poss Bilateral Ing [facility] LABWORK Hernia 02/12 Reason for Visit Left inguinal hernia Left inguinal hernia Chief Complaint [facility] LABWORK ACUTE VISIT INGUINAL HERNIA [facility] LAB WORK MONTHLY EXAM [facility] LAB WORK Lap Robotic Left poss Bilateral Ing Lap Robotic Left poss Bilateral Ing MONTHLY VISIT [facility] LABWORK Hernia 02/12 [facility] LABWORK Reason for Visit Left inguinal hernia Left inguinal hernia Chief Complaint Lap Robotic Left pos s Bilateral Ing Lap Robotic Left poss Bilateral Ing MONTHLY VISIT [facility] LABWORK Hernia 02/12 [facility] LABWORK MONTHLY EXAM NEW CONCERN [facility] LABWORK [facility] LABWORK Reason for Visit Left inguinal hernia Chief Complaint NEW CONCERN [facility] LABWORK [facility] LABWORK MONTHLY EXAM - MD LABWORK LABWORK Chief Complaint [facility] LABWORK MONTHLY EXAM - MD LABWORK MONTHLY [...] MONTHLY EXAM July 29, 2024 7:4 9pm [facility] LAB WORK August 22, 2024 5 :00am Chief Complaint Admit Date LABWORK June 27, 2024 5:00am MONTHLY VISIT July 03, 2024 10:45am LABWORK July 25, 2024 5:0 0am MONTHLY EXAM July 29, 2024 7:4 9pm [facility] LAB WORK August 22, 2024 5 :00am [...] Monthly Visit August 12, 2024 6:20 pm [facility] LAB WORK August 22, 2024 5 :00am LABWORK September 19, 2024 5:00am OVER DUE October 08, 2024 2:14p m Chief Complaint Admit Date MONTHLY EXAM July 29, 2024 7:4 9pm Monthly Visit August 12, 2024 6:20 pm [facility] WORK August 22, 2024 5 :00am LABWORK September 19, 2024 5:00am MONTHLY EXAM September 23, 2024 5:30p m OVER DUE October 08, 2024 2:14p m [facility] LAB WORK October 24, 2024 5: 00am Chief Complaint Admit Date Monthly Visit August 12, 2024 6:20 pm [facility] WORK August 22, 2024 5 :00am LABWORK September 19, 2024 5:00am MONTHLY EXAM September 23, 2024 5:30p m OVER DUE October 08, 2024 2:14p m MONTHLY VISIT October 16, 2024 11:00 am [facility] LAB WORK October 24, 2024 5: 00am Chief Complaint Admit Date [facility] LAB WORK August 22, 2024 5 :00am LABWORK September 19, 2024 5:00am MONTHLY EXAM September 23, 2024 5:30p m OVER DUE October 08, 2024 2:14p m MONTHLY VISIT October 16, 2024 11:00 am [facility] LAB WORK October 24, 2024 5: 00am LABWORK November 21, 2024 5:00 am HX OF AORTIC VALVE REPLACEMENT December 1:54pm Chief Complaint Admit Date LABWORK September 19, 2024 5:00am MONTHLY EXAM September 23, 2024 5:30p m OVER DUE October 08, 2024 2:14p m MONTHLY VISIT October 16, 2024 11:00 am [facility] LAB WORK October 24, 2024 5: 00am Monthly Exam November 18, 2024 6:56p m LABWORK November 21, 2024 5:00 am HX OF AORTIC VALVE REPLACEMENT December 1:54pm Chief Complaint Admit Date LABWORK September 19, 2024 5:00am MONTHLY EXAM September 23, 2024 5:30p m OVER DUE October 08, 2024 2:14p m MONTHLY VISIT October 16, 2024 11:00 am [facility] LAB WORK October 24, 2024 5: 00am [...] MONTHLY VISIT October 16, 2024 11:00 am [facility] LAB WORK October 24, 2024 5: 00am Monthly Exam November 18, 2024 6:56p m LABWORK November 21, 2024 5:00 am HX OF AORTIC VALVE REPLACEMENT December 1:54pm MONTHLY NOTE December 12, 2024 5:3 6pm LABWORK December 19, 2024 5:0 0am LABWORK December 23, 2024 9: 55pm New Concern January 07, 2025 5: 34pm Chief Complaint Admit Date MONTHLY VISIT October 16, 2024 11:00 am [facility] LAB WORK October 24, 2024 5: 00am Monthly Exam November 18, 2024 6:56p m LABWORK November 21, 2024 5:00 am HX OF AORTIC VALVE REPLACEMENT December 1:54pm MONTHLY NOTE December 12, 2024 5:3 6pm LABWORK December 19, 2024 5:0 0am LABWORK December 23, 2024 9: 55pm New Concern January 07, 2025 5: 34pm LABWORK January 23, 2025 5:00am Chest pain January 29, 2025 3:18pm Reason for Visit Admit Date History of aortic valve repl acement with bioprosthetic valve January 29, 2025 3:18pm History of ascending aortic replacement January 29, 2025 3:18pm Chest pain January 29, 2025 3:18pm Essential hypertension January 29, 2 025 3:18pm Parkinson's disease January 29, 2025 3:18pm Paroxysmal atrial fibrillation January 29, 2025 3:18pm Chief Complaint Admit Date Monthly Exam November 18, 2024 6:56p m LABWORK November 21, 2024 5:00 am HX OF AORTIC VALVE REPLACEMENT December 1:54pm MONTHLY NOTE December 12, 2024 5:3 6pm LABWORK December 19, 2024 5:0 0am LABWORK December 23, 2024 9: 55pm New Concern January 07, 2025 5: 34pm LABWORK January 23, 2025 5:00am MONTHLY EXAM January 27, 2025 2:34pm Chest pain January 29, 2025 3:18pm [facility] LAB WORK February 20, 2025 5:25am Additional Source Comments (unrecognized sect ion and content) No Status Records FoundNo Status Records FoundNo Status Records Found INFORMATION SOURCE (unrecogn ized section and content) DATE CREATED AUTHOR 08/12/2019 [facility] ([place]) DATE CREATED AUTHOR AUTHOR'S ORGANIZ ATION 01/01/2021 [facility] DATE CREATED AUTHOR AUTHOR'S ORGANIZ ATION [facility] Goals (unrecognized section and content) Goals [...] MD Primary Care Provider Active Cecy Gray NP INTERNATIONAL ACCOUNT EXECUTIVE-C Attending Provider Active Team Status: Inactive Member [...] Butt MD Primary Care Provider Active Cecy SHI NP-C Attending Provider Active Team Status: Inactive Member Role Status Dates Dr. uGilherme Butt MD Primary Care Provider Active Maikel SHI MD Attending Provider Active Team Status: Inactive Member Role Status Dates Dr. Guilherme Butt MD Primary Care Provider Active Guilherme SHI MD Attending Provider Active Team Status: Active Member Role Status Dates Dr. Guilherme Butt MD Primary Care Provider Active [facility] Attending Provider Active Team Status: Active Member Role Status Dates Dr. Guilherme Butt MD Primary Care Provider Active Guilherme SHI MD Attending Provider Active Team Status: Inactive Member Role Status Dates Dr. Guilherme Butt MD Primary Care Provider Active Dr. Matt Callahan DO Emergency Provider Active Team Status: Inactive Member Role Status Dates Dr. Guilherme Butt MD Primary Care Provider Active [facility] Attending Provider Active Team Status: Inactive [...] MD Primary Care Provider Active Dr. Ori oJnes MD Attending Pr ovider, Referring Provider, Other [...] Care Provider Active Start: October 24, 2024 KAMALA CameronC Attending Provider Active Start: October 24, 2024 [...] 2024 End: August 12, 2024 Cecy Gray NP, NP-C Attending Provider Active Start: August 12, 2024 [...] Active Start: October 24, 2024 Cecy SHI INTERNATIONAL ACCOUNT EXECUTIVE-C Attending Provider Active Start: October 24, 2024 Team Status: Active Member Role/Relationship Status Dates Dr. Guilherme Butt MD Primary Care Provider Active Start: November 21, 2024 Guilherme SHI MD Attending Provider Active Start: November 21, 2024 Team Status: Inactive Member Role/Relationship Status Dates Dr. Guilherme Butt MD Primary Care Provider Active Start: August 12, 2024 End: August 12, 2024 Cecy Gray NP INTERNATIONAL ACCOUNT EXECUTIVE-C Attending Provider Active Start: August 12, 2024 End: August 12, 2024 Team Status: Inactive Member Role/Relationship Status Dates Dr. Guilherme Butt MD Primary Care Provider Active Start: August 22, 2024 End: August 22, 2024 Cecy SHI INTERNATIONAL ACCOUNT EXECUTIVE-C Attending Provider Active Start: August 22, 2024 [...] Care Provider Active Start: October 24, 2024 KAMALA CameronC Attending Provider Active Start: October 24, 2024 [...] End: December 12, 2024 Cecy Gray NP INTERNATIONAL ACCOUNT EXECUTIVE-C Attending Provider Active Start: December 12, 2024 [...] Care Provider Active Start: October 24, 2024 KAMALA CameronC Attending Provider Active Start: October 24, 2024 [...] 2024 End: December 12, 2024 Cecy Gray NP, NP-C Attending Provider Active Start: December 12, 2024 End: December 12, 2024 Team Status: Inactive Member Role/Relationship Status Dates Dr. Guilherme Butt MD Primary Care Provider Active Start: January 07, 2025 End: January 07, 2025 Cecy Gray NP INTERNATIONAL ACCOUNT EXECUTIVE-C Attending Provider Active Start: January 07, 2025 End: January 07, 2025 Team Status: Active Member Role/Relationship Status Dates Dr. Guilherme Butt MD Primary care physician Activ e Team Status: Inactive Member Role/Relationship Status Dates Dr. Guilherme Butt MD Primary care physician Activ e Start: October 16, 2024 End: October 16, 2024 TANJA Tirado Attending physician Active S tart: October 16, 2024 End: October 16, 2024 Team Status: Active Member Role/Relationship Status Dates Dr. Guilherme Butt MD Primary care physician Activ e Start: October 24, 2024 KAMALA CameronC Attending physician Active Start: October 24, 2024 Team Status: Inactive Member Role/Relationship Status Dates Dr. Guilherme Butt MD Primary care physician Activ e Start: November 18, 2024 End: November 18, 2024 Dr. Guilherme Butt MD Attending physician Active Start: November 18, 2024 End: November 18, 2024 Team Status: Active Member Role/Relationship Status Dates Dr. Guilherme Butt MD Primary care physician Activ e Start: November 21, 2024 Guilherme SHI MD Attending physician Active Start: November 21, 2024 Team Status: Inactive Member Role/Relationship Status Dates Dr. Guilherme Butt MD Primary care physician Activ e Start: December 12, 2024 End: December 12, 2024 Dr. Dwain Yen MD Attending physician Active Start: December 12, 2024 End: December 12, 2024 Dr. Dwain Yen MD Referring Provider Active Start: December 12, 2024 End: December 12, 2024 Team Status: Active Member Role/Relationship Status Dates Dr. Guilherme Butt MD Primary care physician Activ e Start: December 12, 2024 Dr. Mike Poe MD Attending physician Active Start: December 12, 2024 Team Status: Inactive Member Role/Relationship Status Dates Dr. Guilherme Butt MD Primary care physician Activ e Start: December 12, 2024 End: December 12, 2024 Cecy Gray INTERNATIONAL ACCOUNT EXECUTIVE, INTERNATIONAL ACCOUNT EXECUTIVE-C Attending physician Active Start: December 12, 2024 End: December 12, 2024 Team Status: Active Member Role/Relationship Status Dates Dr. Guilherme Butt MD Primary care physician Activ e Start: December 19, 2024 Guilherme SHI MD Attending physician Active Start: December 19, 2024 Team Status: Active Member Role/Relationship Status Dates Dr. Guilherme Butt MD Primary care physician Activ e Start: December 23, 2024 Guilherme SHI MD Attending physician Active Start: December 23, 2024 Team Status: Inactive Member Role/Relationship Status Dates Dr. Guilherme Butt MD Primary care physician Activ e Start: January 07, 2025 End: January 07, 2025 Cecy Gray NP, INTERNATIONAL ACCOUNT EXECUTIVE-C Attending physician Active Start: January 07, 2025 End: January 07, 2025 Team Status: Active Member Role/Relationship Status Dates Dr. Guilherme Butt MD Primary care physician Activ e Start: January 23, 2025 Guilherme SHI MD Attending physician Active Start: January 23, 2025 Team Status: Inactive Member Role/Relationship Status Dates Dr. Guilherme Butt MD Primary care physician Activ e Start: January 29, 2025 End: January 29, 2025 Dr. Guilherme Butt MD Referring Provider Active Start: January 29, 2025 End: January 29, 2025 Lucita Rosas PA, PA Attending physician Active Start: January 29, 2025 End: January 29, 2025 Team Status: Inactive Member Role/Relationship Status Dates Dr. Guilherme Butt MD Primary care physician Activ e Start: November 18, 2024 End: November 18, 2024 Dr. Guilherme Butt MD Attending physician Active Start: November 18, 2024 End: November 18, 2024 Team Status: Active Member Role/Relationship Status Dates Dr. Guilherme Butt MD Primary care physician Activ e Start: November 21, 2024 Guilherme SHI MD Attending physician Active Start: November 21, 2024 Team Status: Inactive Member Role/Relationship Status Dates Dr. Guilherme Butt MD Primary care physician Activ e Start: December 12, 2024 End: December 12, 2024 Dr. Dwain Yen MD Attending physician Active Start: December 12, 2024 End: December 12, 2024 Dr. Dwain Yen MD Referring Provider Active Start: December 12, 2024 End: December 12, 2024 Team Status: Active Member Role/Relationship Status Dates Dr. Guilherme Butt MD Primary care physician Activ e Start: December 12, 2024 Dr. Mike Poe MD Attending physician Active Start: December 12, 2024 Team Status: Inactive Member Role/Relationship Status Dates Dr. Guilherme Butt MD Primary care physician Activ e Start: December 12, 2024 End: December 12, 2024 Cecy Gray NP INTERNATIONAL ACCOUNT EXECUTIVE-C Attending physician Active Start: December 12, 2024 End: December 12, 2024 Team Status: Active Member Role/Relationship Status Dates Dr. Guilherme Butt MD Primary care physician Activ e Start: December 19, 2024 Guilherme SHI MD Attending physician Active Start: December 19, 2024 Team Status: Active Member Role/Relationship Status Dates Dr. Guilherme Butt MD Primary care physician Activ e Start: December 23, 2024 Guilherme SHI MD Attending physician Active Start: December 23, 2024 Team Status: Inactive Member Role/Relationship Status Dates Dr. Guilherme Butt MD Primary care physician Activ e Start: January 07, 2025 End: January 07, 2025 Cecy Gray NP INTERNATIONAL ACCOUNT EXECUTIVE-C Attending physician Active Start: January 07, 2025 End: January 07, 2025 Team Status: Active Member Role/Relationship Status Dates Dr. Guilherme Butt MD Primary care physician Activ e Start: January 23, 2025 Guilherme SHI MD Attending physician Active Start: January 23, 2025 Team Status: Inactive Member Role/Relationship Status Dates Dr. Guilherme Butt MD Primary care physician Activ e Start: January 27, 2025 End: January 27, 2025 Dr. Guilherme Butt MD Attending physician Active Start: January 27, 2025 End: January 27, 2025 Team Status: Inactive Member Role/Relationship Status Dates Dr. Guilherme Butt MD Primary care physician Activ e Start: January 29, 2025 End: January 29, 2025 Dr. Guilherme Butt MD Referring Provider Active Start: January 29, 2025 End: January 29, 2025 Lucita Rosas PA, PA Attending physician Active Start: January 29, 2025 End: January 29, 2025 Team Status: Active Member Role/Relationship Status Dates Dr. Guilherme Butt MD Primary care physician Activ e Start: February 20, 2025 Guilherme SHI MD Attending physician Active Start: February 20, 2025 FOR RECORDS PERTAINING TO PATIENTS WHO [...] BE BASED ON THE PRIMARY CLINICAL RECORDS. [employer] provides no warranty or guarantee of the accuracy or completeness of information in this document.
[2025-03-20 07:03] LABS: Color, Urine Yellow (Yellow); Glucose, Dipstick Normal (Normal); Ketone-Dipstick 5 mg/dl (Negative); Leukocyte Esterase-Dipstick 25 /ul (Negative); Nitrite-Dipstick Negative (Negative); Occult Blood-Urine Negative /ul (Negative); Protein-Dipstick 15 mg/dl (Negative); Specific Gravity, Urine 1.010 (1.002-1.030); Urine Bilirubin Dipstick Negative (Negative)
[2025-03-20 07:08] LABS: Hematocrit 39.2 % (40-54); Hemoglobin 13.0 g/dL (13.0-16.5); Immature Granulocytes Count 0.020 X10^3/uL (0.0-0.0); Mean Corp Hgb Conc 33.2 g/dL (32-36); Mean Corpuscular Volume 97.3 fL (80-94); Mean Platelet Vol. 9.1 fl (6.2-12.0); NRBC Flagged by Analyzer 0 % (0-5); Platelet Count 193 K/mm3 (150-450); RBC Distribution Width CV 12.7 % (11.6-14.6); RBC Distribution Width SD 45.8 fl (35.1-43.9); Red Blood Count 4.03 M/mm3 (4.6-6.2); White Blood Count 4.7 K/mm3 (4.4-11.0)
[2025-03-20 07:18] LABS: Anion Gap 7 (5-15); BUN 26 mg/dL (4-19); BUN/Creat Ratio 28.5 RATIO (10-20); Calcium,Total 9.0 mg/dL (7.6-11.0); Carbon Dioxide 29.8 mmol/L (21.0-32.0); Chloride 106 mmol/L (98-108); Glucose 87 mg/dL (70-99); Potassium 4.6 mmol/L (3.3-5.1)
== END ==
LOC: OLS.WHLEAS 05:00
PROVIDERS: PCP Internal Medicine; Visit Provider Nurse Practitioner Adult Health
DX: G20.C Parkinsonism, unspecified (principal); F02.80 Dementia in other diseases classified elsewhere, unspecified severity, without behavioral disturbance, psychotic disturbance, mood disturbance, and anxiety; I48.20 Chronic atrial fibrillation, unspecified; R53.83 Other fatigue
CPT/HCPCS: 36415; 80048; 81002; 85025; 87086

== ENCOUNTER → 2025-03-27 | Outpatient (REF) | payer MEDICARE, MEDICAID, SELFPAY ==
[2025-03-27 07:41] LABS: Hematocrit 40.7 % (40-54); Hemoglobin 13.5 g/dL (13.0-16.5); Mean Corp Hgb Conc 33.2 g/dL (32-36); Mean Corpuscular Volume 96.9 fL (80-94); Mean Platelet Vol. 9.0 fl (6.2-12.0); Platelet Count 195 K/mm3 (150-450); RBC Distribution Width CV 12.6 % (11.6-14.6); RBC Distribution Width SD 44.9 fl (35.1-43.9); Red Blood Count 4.20 M/mm3 (4.6-6.2); White Blood Count 4.5 K/mm3 (4.4-11.0)
[2025-03-27 08:01] LABS: Anion Gap 9 (5-15); BUN 26 mg/dL (4-19); BUN/Creat Ratio 26.9 RATIO (10-20); Calcium,Total 9.2 mg/dL (7.6-11.0); Carbon Dioxide 27.6 mmol/L (21.0-32.0); Chloride 104 mmol/L (98-108); Glucose 137 mg/dL (70-99); Potassium 4.5 mmol/L (3.3-5.1)
== END ==
LOC: OLS.WHLEAS 05:00
PROVIDERS: PCP Internal Medicine; Visit Provider Internal Medicine
DX: I48.20 Chronic atrial fibrillation, unspecified (principal); N18.30 Chronic kidney disease, stage 3 unspecified
CPT/HCPCS: 36415; 80048; 85027

== ENCOUNTER → 2025-04-24 05:00 | Outpatient (REF) | payer MEDICARE, MEDICAID, SELFPAY ==
--- OUTSIDE RECORDS SUMMARY | 2025-04-24 04:06 | XMS RPT_ITS | CCD ---
Author Organization [facility] Care Team Providers Care Headrig Sawyer Name Role Phone Isaac NEON SIGN WORKER, NEON SIGN WORKER-C Cecy Attending Provider Dr. Maikel Alfaro Primary Care Provider Isaac NEON SIGN WORKER, NEON SIGN WORKER-C Cecy Attending Provider Dr. Guilherme Barrera Primary Care Provider [phone] Dr. Guilherme Butt Attending Provider [phone] Isaac NEON SIGN WORKER, NEON SIGN WORKER-C Cecy Attending Provider Dr. Guilherme Barrera Primary Care Provider Isaac NEON SIGN WORKER, NEON SIGN WORKER-C Cecy Attending Provider Dr. Guilherme Barrera Attending Provider Isaac OLS, NEON SIGN WORKER-C Cecy Attending Provider Dr. Guilherme Butt Primary Care Provider Isaac NEON SIGN WORKER, NEON SIGN WORKER-C Cecy Attending Provider Dr. Guilherme Barrera Primary Care Provider [phone] Isaac NEON SIGN WORKER, NEON SIGN WORKER-C Cecy Attending Provider UnaLucita Rivera Attending Provider Unavailable Dr. Guilherme Butt Referring Provider [phone] Dr. Dwain Yen Attending Provider Dr. Guilherme Butt Primary Care Provider [phone] Dr. Mike Poe Attending Provider Dr. Dwain Yen Referring Provider Dr. Guilherme Butt Attending Provider [phone] Isaac NEON SIGN WORKER, NEON SIGN WORKER-C Cecy Attending Provider Gatito Butt, Dr. Vanegas Primary Care Provider Dr. Guilherme Butt Referring Provider [phone] Dr. Ori Jones Attending Provider Filomena, Dr. Vanegas Primary Care Provider [phone] Dr. Guilherme Butt Attending Provider [phone] Dr. Ori Jones Referring Provider Dr. Ori Jones Other Provider BIRD Stewart Attending Provider Dr. Guilherme Butt Primary Care Provider [phone] Isaac REYNA, NEON SIGN WORKER-C Cecy Attending Provider Dr. Guilherme Barrera Referring Provider [phone] Dr. Ori Jones Attending Provider Dr. Guilherme Butt Attending Provider [phone] Dr. Ori Jones Referring Provider Dr. Ori Jones Other Provider BIRD Stewart Attending Provider Dr. Guilherme Butt Primary Care Provider Dr. Ori Jones Attending Provider Isaac REYNA, NEON SIGN WORKER-C Cecy Attending Provider Dr. Guilherme Butt Referring Provider [phone] Dr. Guilherme Butt Attending Provider [phone] Dr. Guilherme Butt Primary Care Provider [phone] Isaac NEON SIGN WORKER, NEON SIGN WORKER-C Cecy Attending Provider Dr. Guilherme Butt Attending Provider [phone] Dr. Guilherme Butt Primary Care Provider [phone] TANJA Painter Attending Provider [phone] Filomena LEVIN, Dr. Vanegas Primary Care Provider Guilherme Butt MD Attending Provider Daljit Butt MD, Dr. Vanegas Attending Provider [phone] Cmailo Painter Attending Provider [phone] Filomena LEVIN, Dr. Vanegas Primary Care Provider Filomena LEVIN, Guilherme Attending Provider Daljit Gray NEON SIGN WORKER-C, Cecy Attending Provider [phone] Filomena LEVIN, Dr. Vanegas Primary Care Provider Guilherme Butt MD Attending Provider Unavailluis Butt MD, Dr. Vanegas Attending Provider [phone] Filomena LEVIN, Dr. Vanegas Referring Provider [phone] Dr. Dwain Yen MD Attending Provider Filomena LEVIN, Dr. Vanegas Primary Care Provider Guilherme Butt MD Attending Provider Daljit Gray NEON SIGN WORKER-CCecy Attending Provider Filomena LEVIN, Dr. Vanegas Primary Care Provider Guilherme Butt MD Attending Provider Daljit Butt MD, Dr. Vanegas Primary Care Provider Filomena LEVIN, Dr. Vanegas Attending Provider [phone] Camilo Painter Attending Provider [phone] Filomena LEVIN, Dr. Vanegas Primary Care Provider Dr. Dwain Yen MD Referring Provider Deepika LEVIN, Dr. Mckeon Attending Provider Filomena LEVIN, Dr. Vanegas Primary Care Provider Tickashli NEON SIGN WORKER-C, Cecy Attending Provider [phone] Tickashli NEON SIGN WORKER-C, Cecy Attending Provider Filomena LEVIN, Dr. Vanegas Primary Care Provider Guilherme Butt MD Attending Provider Unavaila nate Butt MD, Dr. Vanegas Primary Care Physician Camilo Painter Attending Physician [phone] Isaac NEON SIGN WORKER-C, Cecy Attending Physician Filomena LEVIN, Dr. Vanegas Attending Physician [phone] Filomena LEVIN, Guilherme Attending Physician Unavail nicki Yen MD, Dr. Prakash Attending Physician Deepika LEVIN, Dr. Mckeon Attending Physician Isaac NEON SIGN WORKER-C, Cecy Attending Physician Filomena LEVIN, Dr. Vanegas Referring Provider [phone] Lucita Klein Attending Physician [phone] Filomena LEVIN, Dr. Vanegas Primary Care Physician Oleghe, Efewongbe Primary Care Unavailable Oleghe, Efewongbe Attending Unavailable Oleghe, Efewongbe Primary Care Unavailable Oleghe, Efewongbe Attending Unavailable Camilo Painter Attending Unavailable Oleghe, Efewongbe Primary Care Unavailable Oleghe, Efewongbe Primary Care Unavailable Mike Poe Attending Unavailable Oleghe OLSGuilherme Attending Unavailabl e Oleghe, Efewongbe Primary Care Unavailable TickCecy Hester Attending Unavailable Oleghe, Efewongbe Primary Care Unavailable Oleghe, Efewongbe Primary Care Unavailable Oleghe Reilly SHIbe Attending Unavailabl e Oleghe, Efewongbe Primary Care Unavailable Tickton Cecy [...] Unavailable Oleghe, Efewongbe Primary Care Unavailable Cecy Gage Attending Unavailable FarshadDwain sandhu Referring Unavailable Farshad, Dwain Attending Unavailable Oleghe, [...] Oleghe, Efewongbe Primary Care Unavailable Cecy Gray NP Attending Unavailable Oleghe, Efewongbe Referring Unavailable Farshad, Dwain Attending Unavailable Oleghe, Efewongbe Primary Care Unavailable Oleghe, Efewongbe Attending Unavailable Oleghe, Efewongbe Primary Care Unavailable Oleghe, Efewongbe Primary Care Unavailable Oleghe, Efewongbe Attending Unavailable Oleghe, Efewongbe Primary Care Unavailable Oleghe, Efewongbe Referring Unavailable Lucita Klein Attending Unavail able Oleghe, Efewongbe Primary Care Unavailable Cecy Gray NP Attending Unavailable Medications Current Medications Medication Drug Class(es) [...] Start: 07-24-2016 take 2 tablets by mo [facility] once daily Chlorofresh Active 2 TABLET PO [...] Start: 07-24-2016 take 2 tablets by mo [facility] once daily Chlorofresh Active 2 TABLET PO DAILY July 24, 2016 12:00am docusate sodium 50 mg / sennosides, retirement 8.6 mg oral tablet (20 sources) Start: [...] 10:51am Start: 07-24-2016 take 1 capsule by [facility] three times daily Efa, Essential Fatty Acid Active 1 CAP PO THREE TIMES A DAY July 23, 2016 11:00pm Start: 07-24-2016 take 1 capsule by mo [facility] three times daily Efa, Essential Fatty Acid [...] 24, 2016 12:00am September 04, 2022 11:30am [place] [employer] Extract (20 sources) Start: 07-24-2016 [employer] Active 5 DRP PO DAILY July 24, 2016 8:58am Start: 07-24-2016 End: 09-04-2022 [employer] Discontin ued 5 NMA PO DAILY July 24, 2016 12:00am September 04, 2022 10:51am Start: 07-24-2016 End: 09-04-2022 [employer] Discontin ued 5 DRP PO DAILY July 23, 2016 11:00pm September 04, 2022 9:51am Start: 07-24-2016 End: 09-04-2022 [employer] Discontin ued 5 DRP PO DAILY July 24, 2016 12:00am September 04, 2022 10:51am Start: 07-24-2016 [employer] Active 5 DRP PO DAILY July 23, 2016 11:00pm Start: 07-24-2016 [employer] Ext ract Active 5 DRP PO DAILY July 24, 2016 12:00am pimavanserin 34 mg oral capsule (11 sources) Atypical Antipsychotic Start: 10-08-2024 take 1 capsule by mouth once daily polyethylene glycol 3350 45032 mg powder for oral solution (20 sources) [...] TWICE A DAY September 04, 2022 12:00am [employer] Drink (20 sources) Start: 07-24-2016 [place] Drin k Active 1 PACKET PO DAILY July 24, 2016 8:58am Start: 07-24-2016 End: 09-04-2022 [employer] Discontinued 1 NMA PO DAILY July 24, 2016 12:00am September 04, 2022 10:51am Start: 07-24-2016 End: 09-04-2022 [employer] Discontinued 1 PACKET PO DAILY July 23, 2016 11:00pm September 04, 2022 9:51am Start: 07-24-2016 End: 09-04-2022 [employer] Discontinued 1 PACKET PO DAILY July 24, 2016 12:00am September 04, 2022 10:51am Start: 07-24-2016 [place] Drin k Active 1 PACKET PO DAILY July 23, 2016 11:00pm Start: 07-24-2016 [place] Drin k Active 1 PACKET PO DAILY [...] Translations: [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] Onset: 03-10-2025 10-11-2021 Chronic E Codes: Fall (20 sources) [...] and replacement of a hemisheild graft @ [facility] 11/21/05 Nonspecific chest pain (20 sources) [...] and replacement of a hemisheild graft @ [facility] 11/21/05 Other nervous system disorders (20 [...] unspecified; Translations: [Chronic atrial fibrillation, unspecified] Onset: 03-10-2025 Unclassified (1 source) Parkinsonism, unspecified; Translations: [Parkinsonism, [...] on 02-20-2025 Anion gap [Moles/Vol] 7 mmol/L - [facility] BUN/creatinine ratioOrdered By: Guilherme Butt on 02-20-2025 Urea nitrogen/Creatinine [Mass ratio] 31.0 mg/mg High 10-20 [facility] Carbon dioxide, total [Moles /volume] in Central venous bloodOrdered By: Guilherme Butt on 02-20-2025 CO2 [Moles/Vol] 28.8 mmol/L 21.0-32.0 [facility] Chloride assayOrdered By: Roselia Butt on 02-20-2025 Chloride [Moles/Vol] 105 mmol/L 98-108 [facility] Erythrocyte distribution wid th ratioOrdered By: Guilherme Butt on 02-20-2025 Erythrocyte distribution width (RBC) [Ratio] 12.8 % 11.6-14.6 [facility] Erythrocyte distribution wid th standard deviationOrdered By: Guilherme Butt on 02-20-2025 Erythrocyte distribution width (RBC) [Ratio] 44.9 fl High 35.1-43.9 [facility] Glomerular filtration rate ( GFR) estimation/1.73 sq m using serum, plasma, or whole bOrdered By: Guilherme Butt on 02-20-2025 GFR/1.73 sq M.predicted among non-blacks MDRD (S/P/Bld) [Vol rate/Area] 79 mL/min/{1.73_m2} >60 [facility] Comment on above: mL/min/1.73m2 CKD-EP I Creatinine Equation (2020) Hematocrit Auto (Bld) [Volum e fraction]Ordered By: Guilherme Butt on 02-20-2025 Hematocrit (Bld) [Volume fraction] 38.2 % Low 40-54 [facility] Hemoglobin measurementOrdere d By: Guilherme Butt 02-20-2025 Hemoglobin (Bld) [Mass/Vol] 12.5 g/dL Low 13.0-16.5 [facility] MCV (mean corpuscular volume ) determinationOrdered By: Guilherme Butt 02-20-2025 MCV (RBC) [Entitic vol] 96.5 fL High 80-94 [facility] Mean corpuscular hemoglobin (MCH) determinationOrdered By: Guilherme Butt on 02-20-2025 MCH (RBC) [Entitic mass] 31.6 pg 27.0-32.0 [facility] Mean corpuscular hemoglobin concentration (MCHC) determinationOrdered By: Guilherme Butt on 02-20-2025 MCHC (RBC) [Mass/Vol] 32.7 g/dL 32-36 [facility] Mean platelet volume determi nationOrdered By: Guilherme Butt on 02-20-2025 Platelet mean volume (Bld) [Entitic vol] 9.3 fL 6.2-12.0 [facility] Platelet countOrdered By: Roselia Butt on 02-20-2025 Platelets (Bld) [#/Vol] 169 10*3/uL 150-450 [facility] Potassium measurement (mass/ volume)Ordered By: Guilherme Butt on 02-20-2025 Potassium (Unsp spec) [Mass/Vol] 4.4 mmol/L 3.3-5.1 [facility] RBC Auto (Bld) [#/Vol]Ordere d By: Guilherme Butt on 02-20-2025 RBC (Bld) [#/Vol] 3.96 10*6/uL Low 4.6-6.2 [facility] Serum creatinine measurement (mass/volume)Ordered By: Guilherme Butt on 02-20-2025 Creatinine [Mass/Vol] 0.97 mg/dL 0.70-1.20 [facility] Serum glucose measurement (m ass/volume)Ordered By: Guilherme Butt on 02-20-2025 Glucose [Mass/Vol] 162 mg/dL High 70-99 [facility] Serum or plasma calcium farshad urement (mass/volume)Ordered By: Guilherme Butt on 02-20-2025 Calcium [Mass/Vol] 8.8 mg/dL 7.6-11.0 [facility] Serum or plasma urea nitroge n measurement (mass/volume)Ordered By: Guilherme Butt 02-20-2025 Urea nitrogen [Mass/Vol] 30 mg/dL High 4-19 [facility] Sodium levelOrdered By: Kelly uBtt on 02-20-2025 Sodium [Moles/Vol] 141 mmol/L 133-145 [facility] White blood cell (WBC) count Ordered By: Guilherme Butt on 02-20-2025 WBC (Bld) [#/Vol] 4.9 10*3/uL 4.4-11.0 [facility] Cardiology Visit Reporton Cardiology Visit Report [facility] [address] [place] [address] OFFICE VISIT Date of Service: 01/29/25 MR#: [id number] Acct: [id number] Name: IGOR HANSEN Rep #: [id number] : 1945 Provider: TANJA Barrios Age/Sex: 79/M [place] [facility] [place] [facility] [place] Status: Signed HPI HPI History of [...] and Parkinson's disease. He does reside at [facility]. 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 Normal [facility] Anion gap in Serum or Plasma Ordered By: Guilherme Butt on 01-23-2025 Anion gap [Moles/Vol] 11 mmol/L - [facility] BUN/creatinine ratioOrdered By: Guilherme Butt on 01-23-2025 Urea nitrogen/Creatinine [Mass ratio] 32.4 mg/mg High - [facility] Bilirubin directOrdered By: Guilherme Butt on 01-23-2025 Bilirubin.direct [Mass/Vol] 0.16 mg/dL 0.00-0.30 [facility] Comment on above: Hemolysis present, R esults could be affected. Bilirubin, totalOrdered By: Guilherme Butt on 01-23-2025 Bilirubin [Mass/Vol] 0.42 mg/dL 0.00-1.30 [facility] Calculated very low density lipoprotein (VLDL) cholesterol measurementOrdered By: Guilherme Butt on 01-23-2025 Calculated very low density lipoprotein (VLDL) cholesterol measurement 13 mg/dL 5-40 [facility] Carbon dioxide, total [Moles /volume] in Central venous bloodOrdered By: Guilherme Butt on 01-23-2025 CO2 [Moles/Vol] 25.2 mmol/L 21.0-32.0 [facility] Chloride assayOrdered By: Roselia Butt on 01-23-2025 Chloride [Moles/Vol] 104 mmol/L 98-108 [facility] Erythrocyte distribution wid th ratioOrdered By: Guilherme Butt on 01-23-2025 Erythrocyte distribution width (RBC) [Ratio] 12.7 % 11.6-14.6 [facility] Erythrocyte distribution wid th standard deviationOrdered By: Guilherme Butt on 01-23-2025 Erythrocyte distribution width (RBC) [Ratio] 44.1 fl High 35.1-43.9 [facility] Glomerular filtration rate ( GFR) estimation/1.73 sq m using serum, plasma, or whole bOrdered By: Guilherme Butt on 01-23-2025 GFR/1.73 sq M.predicted among non-blacks MDRD (S/P/Bld) [Vol rate/Area] 89 mL/min/{1.73_m2} >60 [facility] Comment on above: mL/min/1.73m2 CKD-EP I Creatinine Equation (2020) Hematocrit Auto (Bld) [Volum e fraction]Ordered By: Guilherme Butt on 01-23-2025 Hematocrit (Bld) [Volume fraction] 36.4 % Low 40-54 [facility] Hemoglobin A1c percentageOrd ered By: Guilherme Butt on 01-23-2025 HbA1c (Bld) [Mass fraction] 5.4 % <5.7 [facility] Comment on above: Normal < 5.7 % Predi abetic 5.7 - 6.4 % Diabetic >or= 6.5 % Please note range changes. Hemoglobin measurementOrdere d By: Guilherme Butt on 01-23-2025 Hemoglobin (Bld) [Mass/Vol] 12.6 g/dL Low 13.0-16.5 [facility] LDL calc ser/plasOrdered By: Guilherme Butt on 01-23-2025 Cholesterol in LDL [Mass/Vol] 92 mg/dL [facility] Comment on above: Gwrdkyarmb=379-736 m g/dL & Higher Jvby=517 mg/dL or greaterFriedwald Equation for LDL-C Laboratory - Chemistry and C hemistry - challengeOrdered By: Guilherme Butt on 01-23-2025 AST [Catalytic activity/Vol] 20 U/L <38 [facility] Comment on above: Hemolysis present, R esults could be affected. MCV (mean corpuscular volume ) determinationOrdered By: Guilherme Butt on 01-23-2025 MCV (RBC) [Entitic vol] 94.5 fL High 80-94 [facility] Mean corpuscular hemoglobin (MCH) determinationOrdered By: Guilherme Butt on 01-23-2025 MCH (RBC) [Entitic mass] 32.7 pg High 27.0-32.0 [facility] Mean corpuscular hemoglobin concentration (MCHC) determinationOrdered By: Guilherme Butt on 01-23-2025 MCHC (RBC) [Mass/Vol] 34.6 g/dL 32-36 [facility] Mean platelet volume determi nationOrdered By: Guilherme Butt on 01-23-2025 Platelet mean volume (Bld) [Entitic vol] 9.4 fL 6.2-12.0 [facility] Platelet countOrdered By: Roselia Butt on 01-23-2025 Platelets (Bld) [#/Vol] 188 10*3/uL 150-450 [facility] Potassium measurement (mass/ volume)Ordered By: Guilherme Butt on 01-23-2025 Potassium (Unsp spec) [Mass/Vol] 4.5 mmol/L 3.3-5.1 [facility] Comment on above: Hemolysis present, R esults could be affected. RBC Auto (Bld) [#/Vol]Ordere d By: Guilherme Butt on 01-23-2025 RBC (Bld) [#/Vol] 3.85 10*6/uL Low 4.6-6.2 [facility] Screening total cholesterol/ high density lipoprotein (HDL) cholesterol ratioOrdered By: Guilherme Butt on 01-23-2025 Cholesterol.total/Choles terol in HDL [Mass ratio] 3.12 {ratio} [facility] Serum creatinine measurement (mass/volume)Ordered By: Guilherme Butt on 01-23-2025 Creatinine [Mass/Vol] 0.83 mg/dL 0.70-1.20 [facility] Serum globulin measurementOr dered By: Guilherme Butt on 01-23-2025 Globulin (S) [Mass/Vol] 2.2 g/dL 2.2-4.2 [facility] Serum glucose measurement (m ass/volume)Ordered By: Guilherme Butt on 01-23-2025 Glucose [Mass/Vol] 90 mg/dL 70-99 [facility] Serum or plasma alanine aly otransferase (ALT) measurementOrdered By: Guilherme Butt on 01-23-2025 ALT [Catalytic activity/Vol] U/L <47 [facility] Serum or plasma albumin farshad urement (mass/volume)Ordered By: Guilherme Butt on 01-23-2025 Albumin [Mass/Vol] 3.9 g/dL 3.4-4.8 [facility] Serum or plasma alkaline jean-claude sphatase measurementOrdered By: Guilherme Butt on 01-23-2025 ALP [Catalytic activity/Vol] 112 U/L 40-129 [facility] Serum or plasma calcium farshad urement (mass/volume)Ordered By: Guilherme Butt on 01-23-2025 Calcium [Mass/Vol] 8.9 mg/dL 7.6-11.0 [facility] Serum or plasma cholesterol in HDL measurement (mass/volume)Ordered By: Guilherme Butt on 01-23-2025 Cholesterol in HDL [Mass/Vol] 50 mg/dL >40 [facility] Comment on above: National Cholesterol Education Program (NCEP) guidelines:<40 mg/dL: Low HDL-cholesterol (major risk factor for CHD)>= 60 mg/dL: High HDL-cholesterol (negative risk factor for CHD)HDL-cholesterol is affected by a number of factors, e.g. smoking, exercise, hormones, sex and age. Serum or plasma cholesterol measurement (mass/volume)Ordered By: Guilherme Butt on 01-23-2025 Cholesterol [Mass/Vol] 155 mg/dL <201 [facility] Comment on above: Cholesterol level, D esirable <200 mg/dLBorderline high cholesterol 200-239 mg/dLHigh cholesterol >=240 mg/dLRecommendations of the NCEP Adult Treatment Panel for the following risk-cutoff thresholds for the [place] population. Serum or plasma urea nitroge n measurement (mass/volume)Ordered By: Guilherme Butt on 01-23-2025 Urea nitrogen [Mass/Vol] 27 mg/dL High 4-19 [facility] Sodium levelOrdered By: Kelly Butt on 01-23-2025 Sodium [Moles/Vol] 140 mmol/L 133-145 [facility] T4 freeOrdered By: Guilherme Butt on 01-23-2025 Free T4 [Mass/Vol] 1.00 ng/dL 0.76-1.46 [facility] TSH DL <= 0.005 mIU/L QnOrde red By: Guilherme Butt on 01-23-2025 TSH Qn 0.974 uIU/mL 0.300-4.200 [facility] Total proteinOrdered By: Jamaal Butt on 01-23-2025 Protein [Mass/Vol] 6.1 g/dL 5.9-8.4 [facility] Triglycerides measurementOrd ered By: Guilherme Butt on 01-23-2025 Triglyceride [Mass/Vol] 65 mg/dL <199 [facility] Comment on above: The drugs N-Acetylcy steine and Metamizole may falsely depress this assay. Normal range: <150 mg/dLBorderline High: 150-199 mg/dLHigh: 200-499 mg/dLVery High: >500 mg/dL White blood cell (WBC) count Ordered By: Guilherme Butt on 01-23-2025 WBC (Bld) [#/Vol] 4.0 10*3/uL Low 4.4-11.0 [facility] Bilirubin Test strip Ql (U)O rdered By: Guilherme Butt on 12-23-2024 Bilirubin Ql (U) Negative Negative [facility] Ketones Test strip Ql (U)Ord ered By: Guilherme Butt on 12-23-2024 Ketones Ql (U) Negative Negative [facility] Microscopic analysis of urin e for red blood cells (RBC)Ordered By: Guilherme Butt on 12-23-2024 Microscopic analysis of urine for red blood cells (RBC) 0 SEEN /hpf 0-5 [facility] Mucus LM Ql (Urine sed)Order ed By: Guilherme Butt on 12-23-2024 Mucus Ql (Urine sed) 0 SEEN /hpf [facility] Nitrite Test strip Ql (U)Ord ered By: Guilherme Butt on 12-23-2024 Nitrite Ql (U) Negative Negative [facility] Protein Test strip Ql (U)Ord ered By: Guilherme Butt on 12-23-2024 Protein Ql (U) 15 mg/dl High Negative [facility] Squamous epithelial cells de tection in urine sediment by light microscopyOrdered By: Guilherme Butt on 12-23-2024 Epithelial cells.squamous LM Ql (Urine sed) 0 SEEN /hpf 0-5 [facility] Urine clarityOrdered By: Jamaal Butt on 12-23-2024 Clarity (U) Clear Clear [facility] Urine color determinationOrd ered By: Guilherme Butt on 12-23-2024 Color (U) Yellow Yellow [facility] Urine cultureOrdered By: Jamaal Butt on 12-23-2024 Bacteria identified Cx Nom (U) Positive Abnormal [facility] Urine glucose detectionOrder ed By: Guilherme Butt on 12-23-2024 Glucose Ql (U) Normal mg/dl Normal [facility] Urine leukocyte esterase det ection by dipstickOrdered By: Guilherme Butt on 12-23-2024 Leukocyte esterase Test strip Ql (U) 25 /ul High Negative [facility] Urine pHOrdered By: Juan uBtt on 12-23-2024 pH (U) 7.0 [pH] 5.0 - 8.0 [facility] Urine sediment bacteria coun t by microscopy (number/high power field)Ordered By: Guilherme Butt on 12-23-2024 Bacteria LM.HPF (Urine sed) [#/Area] 0 /[HPF] None Seen [facility] Urine specific gravity measu rementOrdered By: Guilherme Butt on 12-23-2024 Specific gravity (U) [Rel density] 1.010 1.002-1.030 [facility] Urine urobilinogen measureme ntOrdered By: Guilherme Butt on 12-23-2024 Urobilinogen Ql (U) Normal mg/dl Normal [facility] White blood cell countOrdere d By: Guilherme Butt on 12-23-2024 White blood cell count 0-5 SEEN /hpf 0-5 [facility] Anion gap in Serum or Plasma Ordered By: Guilherme Butt on 12-19-2024 Anion gap [Moles/Vol] 9 mmol/L 5-15 [facility] BUN/creatinine ratioOrdered By: Guilherme Butt on 12-19-2024 Urea nitrogen/Creatinine [Mass ratio] 29.6 mg/mg High 10-20 [facility] Carbon dioxide, total [Moles /volume] in Central venous bloodOrdered By: Guilherme Butt on 12-19-2024 CO2 [Moles/Vol] 27.2 mmol/L 21.0-32.0 [facility] Chloride assayOrdered By: Roselia Butt on 12-19-2024 Chloride [Moles/Vol] 103 mmol/L 98-108 [facility] Erythrocyte distribution wid th ratioOrdered By: Guilherme Butt on 12-19-2024 Erythrocyte distribution width (RBC) [Ratio] 12.6 % 11.6-14.6 [facility] Erythrocyte distribution wid th standard deviationOrdered By: Guilherme Butt on 12-19-2024 Erythrocyte distribution width (RBC) [Ratio] 44.9 fl High 35.1-43.9 [facility] Glomerular filtration rate ( GFR) estimation/1.73 sq m using serum, plasma, or whole bOrdered By: Guilherme Butt on 12-19-2024 GFR/1.73 sq M.predicted among non-blacks MDRD (S/P/Bld) [Vol rate/Area] 78 mL/min/{1.73_m2} >60 [facility] Comment on above: mL/min/1.73m2 CKD-EP I Creatinine Equation (2020) Hematocrit Auto (Bld) [Volum e fraction]Ordered By: Guilherme Butt on 12-19-2024 Hematocrit (Bld) [Volume fraction] 39.3 % Low 40-54 [facility] Hemoglobin measurementOrdere d By: Guilherme Butt on 12-19-2024 Hemoglobin (Bld) [Mass/Vol] 13.1 g/dL 13.0-16.5 [facility] MCV (mean corpuscular volume ) determinationOrdered By: Guilherme Butt on 12-19-2024 MCV (RBC) [Entitic vol] 96.8 fL High 80-94 [facility] Mean corpuscular hemoglobin (MCH) determinationOrdered By: Guilherme Butt on 12-19-2024 MCH (RBC) [Entitic mass] 32.3 pg High 27.0-32.0 [facility] Mean corpuscular hemoglobin concentration (MCHC) determinationOrdered By: Guilherme Butt on 12-19-2024 MCHC (RBC) [Mass/Vol] 33.3 g/dL 32-36 [facility] Mean platelet volume determi nationOrdered By: Guilherme Butt on 12-19-2024 Platelet mean volume (Bld) [Entitic vol] 9.0 fL 6.2-12.0 [facility] Platelet countOrdered By: Roselia Butt on 12-19-2024 Platelets (Bld) [#/Vol] 168 10*3/uL 150-450 [facility] Potassium measurement (mass/ volume)Ordered By: Guilherme Butt on 12-19-2024 Potassium (Unsp spec) [Mass/Vol] 4.4 mmol/L 3.3-5.1 [facility] RBC Auto (Bld) [#/Vol]Ordere d By: felipa Butt on 12-19-2024 RBC (Bld) [#/Vol] 4.06 10*6/uL Low 4.6-6.2 [facility] Serum creatinine measurement (mass/volume)Ordered By: Guilherme Butt on 12-19-2024 Creatinine [Mass/Vol] 0.99 mg/dL 0.70-1.20 [facility] Serum glucose measurement (m ass/volume)Ordered By: midlanddmitri Butt on 12-19-2024 Glucose [Mass/Vol] 88 mg/dL 70-99 [facility] Serum or plasma calcium farshad urement (mass/volume)Ordered By: dmitri Roblesjessenia on 12-19-2024 Calcium [Mass/Vol] 9.2 mg/dL 7.6-11.0 [facility] Serum or plasma urea nitroge n measurement (mass/volume)Ordered By: Roseliadmitri Butt on 12-19-2024 Urea nitrogen [Mass/Vol] 29 mg/dL High 4-19 [facility] Sodium levelOrdered By: anne Butt on 12-19-2024 Sodium [Moles/Vol] 139 mmol/L 133-145 [facility] White blood cell (WBC) count Ordered By: Guilherme Butt on 12-19-2024 WBC (Bld) [#/Vol] 4.7 10*3/uL 4.4-11.0 [facility] Echo Completeon 12-12-2024 Echo Complete [facility] [address] [place] [address] Echo Complete 12/12/24 1410 MR#: [id number] Acct: [id number] Name: IGOR HANSEN Rep #: [id number] : 1945 79 From: Mike Poe MD Attending Dr: Dr. Dwain Yen MD Status: REG CLI Ordering Dr: Dwain Yen MD Date: 12/12/24 Location: [facility] Sex: M C Admitted: Reason For [...] Yen Performed By: Marbella Oropeza RCS 12/12/24 164 Date Mike Poe MD CC: Dr. Dwain Yen MD; Dr. Guilherme Butt MD Date Dictated: 12/12/24 1410 Date Transcribed: 12/12/241648 [employer] Publications Editor: Signed Normal [facility] Echocardiogram study reportO rdered By: Mike Poe on 12-12-2024 Study report [facility] [address] [place] [address] Echo Complete 12/12/24 1410 MR#: [id number] Acct: [id number] Name: IGOR HANSEN Rep #:[id number] : 1945 79 From: Mike Manuel Attending Dr: Dr. Dwain Yen MD Status: REG CLI Ordering Dr: Dwain Yen MD Date: Location: [facility] Sex: M C Admitted: Reason [...] Yen Performed By: Marbella Oropeza RCS 12/12/24 3339 Date _ Mike Poe MD CC: Dr. Dwain Yen MD; Dr. Guilherme Butt MD ~ Date Dictated: 12/12/24 1410 Date Transcribed: 12/12/241648 [employer] Publications Editor: Signed [facility] Work Phone: Absolute lymphocyte countOrd ered By: Guilherme Butt on 11-21-2024 Lymphocytes Auto (Unsp spec) [#/Vol] 1.17 10*3/uL 0.83-4.51 [facility] Absolute neutrophil countOrd ered By: Guilherme Butt on 11-21-2024 Neutrophils (Bld) [#/Vol] 3.2 10*3/uL 2.0-7.7 [facility] Anion gap in Serum or Plasma Ordered By: Guilherme Butt on 11-21-2024 Anion gap [Moles/Vol] 11 mmol/L 5-15 [facility] Automated lymphocyte count a s percentage of total leukocytesOrdered By: Guilherme Butt on 11-21-2024 Lymphocytes/100 WBC Auto (Unsp spec) 23.5 % 19-41 [facility] BUN/creatinine ratioOrdered By: Guilherme Butt on 11-21-2024 Urea nitrogen/Creatinine [Mass ratio] 24.5 mg/mg High 10-20 [facility] Basophil percentageOrdered B y: Guilherme Butt on 11-21-2024 Basophils/100 WBC (Bld) 0.6 % 0-1 [facility] Bilirubin, totalOrdered By: Guilherme Butt on 11-21-2024 Bilirubin [Mass/Vol] 0.38 mg/dL 0.00-1.30 [facility] Carbon dioxide, total [Moles /volume] in Central venous bloodOrdered By: Guilherme Butt on 11-21-2024 CO2 [Moles/Vol] 24.6 mmol/L 21.0-32.0 [facility] Chloride assayOrdered By: Roselia kierananne Butt on 11-21-2024 Chloride [Moles/Vol] 106 mmol/L 98-108 [facility] Eosinophil percentageOrdered By: Kellyanne Yonasmarianjessenia on 11-21-2024 Eosinophils/100 WBC (Bld) 2.2 % 0-5 [facility] Erythrocyte distribution wid th ratioOrdered By: Kellyalfredodmitri Butt on 11-21-2024 Erythrocyte distribution width (RBC) [Ratio] 12.9 % 11.6-14.6 [facility] Erythrocyte distribution wid th standard deviationOrdered By: Guilherme Butt on 11-21-2024 Erythrocyte distribution width (RBC) [Ratio] 45.9 fl High 35.1-43.9 [facility] Glomerular filtration rate ( GFR) estimation/1.73 sq m using serum, plasma, or whole bOrdered By: Guilherme Butt on 11-21-2024 GFR/1.73 sq M.predicted among non-blacks MDRD (S/P/Bld) [Vol rate/Area] 73 mL/min/{1.73_m2} >60 [facility] Comment on above: mL/min/1.73m2 CKD-EP I Creatinine Equation (2020) Hematocrit Auto (Bld) [Volum e fraction]Ordered By: Guilherme Butt on 11-21-2024 Hematocrit (Bld) [Volume fraction] 39.4 % Low 40-54 [facility] Hemoglobin measurementOrdere d By: Guilherme Butt on 11-21-2024 Hemoglobin (Bld) [Mass/Vol] 13.1 g/dL 13.0-16.5 [facility] Immature granulocytes/100 WB C Auto (Bld)Ordered By: Guilherme Butt on 11-21-2024 Immature granulocytes/100 WBC (Bld) 0.400 % 0.0-0.9 [facility] Comment on above: IG% - Immature Granu locytes (promyelocytes, myelocytes and metamyelocytes) > 1% indicates that a LEFT SHIFT is Present. Laboratory - Chemistry and C hemistry - challengeOrdered By: Guilherme Butt on 11-21-2024 AST [Catalytic activity/Vol] 19 U/L <38 [facility] MCV (mean corpuscular volume ) determinationOrdered By: Guilherme Butt on 11-21-2024 MCV (RBC) [Entitic vol] 97.5 fL High 80-94 [facility] Mean corpuscular hemoglobin (MCH) determinationOrdered By: Guilherme Butt on 11-21-2024 MCH (RBC) [Entitic mass] 32.4 pg High 27.0-32.0 [facility] Mean corpuscular hemoglobin concentration (MCHC) determinationOrdered By: Guilherme Butt on 11-21-2024 MCHC (RBC) [Mass/Vol] 33.2 g/dL 32-36 [facility] Mean platelet volume determi nationOrdered By: Guilherme Butt on 11-21-2024 Platelet mean volume (Bld) [Entitic vol] 9.5 fL 6.2-12.0 [facility] Monocyte percentageOrdered B y: Guilherme Butt on 11-21-2024 Monocytes/100 WBC (Bld) 8.0 % 0-10 [facility] Neutrophil percentageOrdered By: Guilherme Butt on 11-21-2024 Neutrophils/100 WBC (Bld) 65.3 % 47-70 [facility] Nucleated red blood cell per centageOrdered By: Guilherme Butt on 11-21-2024 Nucleated RBC/100 WBC (Bld) [Ratio] 0 % 0-5 [facility] Platelet countOrdered By: Roselia Butt on 11-21-2024 Platelets (Bld) [#/Vol] 185 10*3/uL 150-450 [facility] Potassium measurement (mass/ volume)Ordered By: Guilherme Butt on 11-21-2024 Potassium (Unsp spec) [Mass/Vol] 4.5 mmol/L 3.3-5.1 [facility] RBC Auto (Bld) [#/Vol]Ordere d By: Guilherme Butt on 11-21-2024 RBC (Bld) [#/Vol] 4.04 10*6/uL Low 4.6-6.2 [facility] Serum creatinine measurement (mass/volume)Ordered By: Guilherme Butt on 11-21-2024 Creatinine [Mass/Vol] 1.04 mg/dL 0.70-1.20 [facility] Serum globulin measurementOr dered By: Guilherme Butt on 11-21-2024 Globulin (S) [Mass/Vol] 2.4 g/dL 2.2-4.2 [facility] Serum glucose measurement (m ass/volume)Ordered By: Guilherme Butt on 11-21-2024 Glucose [Mass/Vol] 142 mg/dL High 70-99 [facility] Serum or plasma alanine aly otransferase (ALT) measurementOrdered By: Guilherme Butt on 11-21-2024 ALT [Catalytic activity/Vol] 8 U/L <47 [facility] Serum or plasma albumin farshad urement (mass/volume)Ordered By: Guilherme Butt on 11-21-2024 Albumin [Mass/Vol] 4.1 g/dL 3.4-4.8 [facility] Serum or plasma albumin/glob ulin mass ratioOrdered By: Guilherme Butt on 11-21-2024 Albumin/Globulin [Mass ratio] 1.8 {ratio} 0.9-2.4 [facility] Serum or plasma alkaline jean-claude sphatase measurementOrdered By: Guilherme Butt on 11-21-2024 ALP [Catalytic activity/Vol] 109 U/L 40-129 [facility] Serum or plasma calcium farshad urement (mass/volume)Ordered By: Roseliakieranalfredodmitri Branhammarianjessenia on 11-21-2024 Calcium [Mass/Vol] 9.2 mg/dL 7.6-11.0 [facility] Serum or plasma urea nitroge n measurement (mass/volume)Ordered By: Guilherme Branhammarianjessenia on 11-21-2024 Urea nitrogen [Mass/Vol] 26 mg/dL High 4-19 [facility] Sodium levelOrdered By: Kelly anne Yonasmarianjessenia on 11-21-2024 Sodium [Moles/Vol] 141 mmol/L 133-145 [facility] T4 freeOrdered By: Kellyalfredodmitri Branhammarianjessenia on 11-21-2024 Free T4 [Mass/Vol] 1.10 ng/dL 0.76-1.46 [facility] TSH DL <= 0.005 mIU/L QnOrde red By: Kellyanne Yonasmarianjessenia on 11-21-2024 TSH Qn 3.090 uIU/mL 0.300-4.200 [facility] Total proteinOrdered By: Jamaal iyer Yonasmarianjessenia on 11-21-2024 Protein [Mass/Vol] 6.5 g/dL 5.9-8.4 [facility] White blood cell (WBC) count Ordered By: Guilherme Branhammarianjessenia on 11-21-2024 WBC (Bld) [#/Vol] 5.0 10*3/uL 4.4-11.0 [facility] Anion gap in Serum or Plasma Ordered By: Cecy Gray on 10-24-2024 Anion gap [Moles/Vol] 9 mmol/L 5-15 [facility] BUN/creatinine ratioOrdered By: Cecy Gray on 10-24-2024 Urea nitrogen/Creatinine [Mass ratio] 25.6 mg/mg High 10-20 [facility] Carbon dioxide, total [Moles /volume] in Central venous bloodOrdered By: Cecy Gray on 10-24-2024 CO2 [Moles/Vol] 29.3 mmol/L 21.0-32.0 [facility] Chloride assayOrdered By: Roderick Gray on 10-24-2024 Chloride [Moles/Vol] 104 mmol/L 98-108 [facility] Erythrocyte distribution wid th ratioOrdered By: Cecy Gray on 10-24-2024 Erythrocyte distribution width (RBC) [Ratio] 12.8 % 11.6-14.6 [facility] Erythrocyte distribution wid th standard deviationOrdered By: Cecy Gray on 10-24-2024 Erythrocyte distribution width (RBC) [Ratio] 45.1 fl High 35.1-43.9 [facility] Glomerular filtration rate ( GFR) estimation/1.73 sq m using serum, plasma, or whole bOrdered By: Cecy Gray on 10-24-2024 GFR/1.73 sq M.predicted among non-blacks MDRD (S/P/Bld) [Vol rate/Area] 84 mL/min/{1.73_m2} >60 [facility] Comment on above: mL/min/1.73m2 CKD-EP I Creatinine Equation (2020) Hematocrit Auto (Bld) [Volum e fraction]Ordered By: Cecy Gray on 10-24-2024 Hematocrit (Bld) [Volume fraction] 39.4 % Low 40-54 [facility] Hemoglobin measurementOrdere d By: Cecy Gray on 10-24-2024 Hemoglobin (Bld) [Mass/Vol] 13.2 g/dL 13.0-16.5 [facility] MCV (mean corpuscular volume ) determinationOrdered By: Cecy Gray 10-24-2024 MCV (RBC) [Entitic vol] 96.3 fL High 80-94 [facility] Mean corpuscular hemoglobin (MCH) determinationOrdered By: Cecy Gray 10-24-2024 MCH (RBC) [Entitic mass] 32.3 pg High 27.0-32.0 [facility] Mean corpuscular hemoglobin concentration (MCHC) determinationOrdered By: Cecy Gray 10-24-2024 MCHC (RBC) [Mass/Vol] 33.5 g/dL 32-36 [facility] Mean platelet volume determi nationOrdered By: Cecy Gray 10-24-2024 Platelet mean volume (Bld) [Entitic vol] 9.1 fL 6.2-12.0 [facility] Platelet countOrdered By: Roderick Gray on 10-24-2024 Platelets (Bld) [#/Vol] 200 10*3/uL 150-450 [facility] Potassium measurement (mass/ volume)Ordered By: Cecy Gray on 10-24-2024 Potassium (Unsp spec) [Mass/Vol] 4.5 mmol/L 3.3-5.1 [facility] RBC Auto (Bld) [#/Vol]Ordere d By: Cecy Gray on 10-24-2024 RBC (Bld) [#/Vol] 4.09 10*6/uL Low 4.6-6.2 [facility] Serum creatinine measurement (mass/volume)Ordered By: Cecy Gray on 10-24-2024 Creatinine [Mass/Vol] 0.93 mg/dL 0.70-1.20 [facility] Serum glucose measurement (m ass/volume)Ordered By: Cecy Gray on 10-24-2024 Glucose [Mass/Vol] 85 mg/dL 70-99 [facility] Serum or plasma calcium farshad urement (mass/volume)Ordered By: Cecy Gray on 10-24-2024 Calcium [Mass/Vol] 9.3 mg/dL 7.6-11.0 [facility] Serum or plasma urea nitroge n measurement (mass/volume)Ordered By: Cecy Gray on 10-24-2024 Urea nitrogen [Mass/Vol] 24 mg/dL High 4-19 [facility] Sodium levelOrdered By: Mayi Gray on 10-24-2024 Sodium [Moles/Vol] 142 mmol/L 133-145 [facility] White blood cell (WBC) count Ordered By: Cecy Gray on 10-24-2024 WBC (Bld) [#/Vol] 4.7 10*3/uL 4.4-11.0 [facility] Cardiology Visit Reporton Cardiology Visit Report [facility] [address] [place], [place] [address]jessenia. [address] [place], [place] [address] OFFICE VISIT Date of Service: 10/08/24 MR#: [id number] Acct: [id number] Name: IGOR HANSEN Rep #: [id number] : 1945 Provider: Dr. 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 Normal [facility] Anion gap in Serum or Plasma Ordered By: Guilherme Butt on 09-19-2024 Anion gap [Moles/Vol] 9 mmol/L 5-15 [facility] BUN/creatinine ratioOrdered By: Guilherme Butt on 09-19-2024 Urea nitrogen/Creatinine [Mass ratio] 26.1 mg/mg High 10-20 [facility] Carbon dioxide, total [Moles /volume] in Central venous bloodOrdered By: Guilherme Butt on 09-19-2024 CO2 [Moles/Vol] 28.7 mmol/L 21.0-32.0 [facility] Chloride assayOrdered By: Roselia Butt on 09-19-2024 Chloride [Moles/Vol] 103 mmol/L 98-108 [facility] Erythrocyte distribution wid th ratioOrdered By: Guilherme Butt on 09-19-2024 Erythrocyte distribution width (RBC) [Ratio] 12.7 % 11.6-14.6 [facility] Erythrocyte distribution wid th standard deviationOrdered By: Guilherme Butt on 09-19-2024 Erythrocyte distribution width (RBC) [Ratio] 44.8 fl High 35.1-43.9 [facility] Glomerular filtration rate ( GFR) estimation/1.73 sq m using serum, plasma, or whole bOrdered By: Guilherme Butt on 09-19-2024 GFR/1.73 sq M.predicted among non-blacks MDRD (S/P/Bld) [Vol rate/Area] 87 mL/min/{1.73_m2} >60 [facility] Comment on above: mL/min/1.73m2 CKD-EP I Creatinine Equation (2020) Hematocrit Auto (Bld) [Volum e fraction]Ordered By: Guilherme Butt on 09-19-2024 Hematocrit (Bld) [Volume fraction] 39.4 % Low 40-54 [facility] Hemoglobin measurementOrdere d By: Guilherme Butt on 09-19-2024 Hemoglobin (Bld) [Mass/Vol] 13.2 g/dL 13.0-16.5 [facility] MCV (mean corpuscular volume ) determinationOrdered By: Guilherme Butt on 09-19-2024 MCV (RBC) [Entitic vol] 96.3 fL High 80-94 [facility] Mean corpuscular hemoglobin (MCH) determinationOrdered By: Guilherme Butt on 09-19-2024 MCH (RBC) [Entitic mass] 32.3 pg High 27.0-32.0 [facility] Mean corpuscular hemoglobin concentration (MCHC) determinationOrdered By: Guilherme Butt on 09-19-2024 MCHC (RBC) [Mass/Vol] 33.5 g/dL 32-36 [facility] Mean platelet volume determi nationOrdered By: Guilherme Butt on 09-19-2024 Platelet mean volume (Bld) [Entitic vol] 9.0 fL 6.2-12.0 [facility] Platelet countOrdered By: Roselia Butt on 09-19-2024 Platelets (Bld) [#/Vol] 178 10*3/uL 150-450 [facility] Potassium measurement (mass/ volume)Ordered By: Guilherme Butt on 09-19-2024 Potassium (Unsp spec) [Mass/Vol] 4.6 mmol/L 3.3-5.1 [facility] RBC Auto (Bld) [#/Vol]Ordere d By: Guilherme Butt on 09-19-2024 RBC (Bld) [#/Vol] 4.09 10*6/uL Low 4.6-6.2 [facility] Serum creatinine measurement (mass/volume)Ordered By: Guilherme Butt on 09-19-2024 Creatinine [Mass/Vol] 0.89 mg/dL 0.70-1.20 [facility] Serum glucose measurement (m ass/volume)Ordered By: Guilherme Butt on 09-19-2024 Glucose [Mass/Vol] 86 mg/dL 70-99 [facility] Serum or plasma calcium farshad urement (mass/volume)Ordered By: Guilherme Butt on 09-19-2024 Calcium [Mass/Vol] 9.1 mg/dL 7.6-11.0 [facility] Serum or plasma urea nitroge n measurement (mass/volume)Ordered By: Guilherme Butt on 09-19-2024 Urea nitrogen [Mass/Vol] 23 mg/dL High 4-19 [facility] Sodium levelOrdered By: Kelly Btut on 09-19-2024 Sodium [Moles/Vol] 141 mmol/L 133-145 [facility] White blood cell (WBC) count Ordered By: Guilherme Butt on 09-19-2024 WBC (Bld) [#/Vol] 4.1 10*3/uL Low 4.4-11.0 [facility] Anion gap in Serum or Plasma Ordered By: Cecy Gray on 08-22-2024 Anion gap [Moles/Vol] 10 mmol/L 5-15 [facility] BUN/creatinine ratioOrdered By: Cecy Gray on 08-22-2024 Urea nitrogen/Creatinine [Mass ratio] 24.8 mg/mg High 10-20 [facility] Carbon dioxide, total [Moles /volume] in Central venous bloodOrdered By: Cecy Gray on 08-22-2024 CO2 [Moles/Vol] 26.8 mmol/L 21.0-32.0 [facility] Chloride assayOrdered By: Roderick Gray on 08-22-2024 Chloride [Moles/Vol] 103 mmol/L 98-108 [facility] Erythrocyte distribution wid th ratioOrdered By: Cecy Gray on 08-22-2024 Erythrocyte distribution width (RBC) [Ratio] 12.6 % 11.6-14.6 [facility] Erythrocyte distribution wid th standard deviationOrdered By: Cecy Gray on 08-22-2024 Erythrocyte distribution width (RBC) [Ratio] 44.4 fl High 35.1-43.9 [facility] Glomerular filtration rate ( GFR) estimation/1.73 sq m using serum, plasma, or whole bOrdered By: Cecy Gray on 08-22-2024 GFR/1.73 sq M.predicted among non-blacks MDRD (S/P/Bld) [Vol rate/Area] 74 mL/min/{1.73_m2} >60 [facility] Comment on above: mL/min/1.73m2 CKD-EP I Creatinine Equation (2020) Hematocrit Auto (Bld) [Volum e fraction]Ordered By: Cecy Gray on 08-22-2024 Hematocrit (Bld) [Volume fraction] 38.2 % Low 40-54 [facility] Hemoglobin measurementOrdere d By: Cecy Gray on 08-22-2024 Hemoglobin (Bld) [Mass/Vol] 13.0 g/dL 13.0-16.5 [facility] MCV (mean corpuscular volume ) determinationOrdered By: Cecy Gray on 08-22-2024 MCV (RBC) [Entitic vol] 95.5 fL High 80-94 [facility] Mean corpuscular hemoglobin (MCH) determinationOrdered By: Cecy Gray on 08-22-2024 MCH (RBC) [Entitic mass] 32.5 pg High 27.0-32.0 [facility] Mean corpuscular hemoglobin concentration (MCHC) determinationOrdered By: Cecy Gray on 08-22-2024 MCHC (RBC) [Mass/Vol] 34.0 g/dL 32-36 [facility] Mean platelet volume determi nationOrdered By: Cecy Gray on 08-22-2024 Platelet mean volume (Bld) [Entitic vol] 8.9 fL 6.2-12.0 [facility] Platelet countOrdered By: Roderick Gray on 08-22-2024 Platelets (Bld) [#/Vol] 169 10*3/uL 150-450 [facility] Potassium measurement (mass/ volume)Ordered By: Cecy Gray on 08-22-2024 Potassium (Unsp spec) [Mass/Vol] 4.5 mmol/L 3.3-5.1 [facility] RBC Auto (Bld) [#/Vol]Ordere d By: Cecy Gray on 08-22-2024 RBC (Bld) [#/Vol] 4.00 10*6/uL Low 4.6-6.2 [facility] Serum creatinine measurement (mass/volume)Ordered By: Cecy Gray on 08-22-2024 Creatinine [Mass/Vol] 1.03 mg/dL 0.70-1.20 [facility] Serum glucose measurement (m ass/volume)Ordered By: Cecy Gray on 08-22-2024 Glucose [Mass/Vol] 83 mg/dL 70-99 [facility] Serum or plasma calcium farshad urement (mass/volume)Ordered By: Cecy Gray on 08-22-2024 Calcium [Mass/Vol] 9.0 mg/dL 7.6-11.0 [facility] Serum or plasma urea nitroge n measurement (mass/volume)Ordered By: Cecy Gray on 08-22-2024 Urea nitrogen [Mass/Vol] 26 mg/dL High 4-19 [facility] Sodium levelOrdered By: Mayi Gray on 08-22-2024 Sodium [Moles/Vol] 140 mmol/L 133-145 [facility] White blood cell (WBC) count Ordered By: Cecy Gray on 08-22-2024 WBC (Bld) [#/Vol] 4.0 10*3/uL Low 4.4-11.0 [facility] Anion gap in Serum or Plasma Ordered By: Guilherme Butt on 07-25-2024 Anion gap [Moles/Vol] 10 mmol/L 5-15 [facility] BUN/creatinine ratioOrdered By: Guilherme Butt on 07-25-2024 Urea nitrogen/Creatinine [Mass ratio] 28.4 mg/mg High 10-20 [facility] Carbon dioxide, total [Moles /volume] in Central venous bloodOrdered By: Guilherme Butt on 07-25-2024 CO2 [Moles/Vol] 26.7 mmol/L 21.0-32.0 [facility] Chloride assayOrdered By: Roselia Butt on 07-25-2024 Chloride [Moles/Vol] 105 mmol/L 98-108 [facility] Erythrocyte distribution wid th (RBC) [Ratio]Ordered By: Guilherme Butt on 07-25-2024 Erythrocyte distribution width (RBC) [Entitic vol] 44.6 fL High 35.1-43.9 [facility] Erythrocyte distribution wid th ratioOrdered By: Guilherme Butt on 07-25-2024 Erythrocyte distribution width (RBC) [Ratio] 12.8 % 11.6-14.6 [facility] Erythrocyte distribution wid th standard deviationOrdered By: Guilherme Butt on 07-25-2024 Erythrocyte distribution width (RBC) [Ratio] 44.6 fl High 35.1-43.9 [facility] GFR/1.73 sq M.predicted jane g non-blacks MDRD (S/P/Bld) [Vol rate/Area]Ordered By: Guilherme Butt on 07-25-2024 Estimated GFR (MDRD) Non-Af Amer 85 >60 [facility] Comment on above: mL/min/1.73m2 CKD-EP I Creatinine Equation (2020) Glomerular filtration rate ( GFR) estimation/1.73 sq m using serum, plasma, or whole bOrdered By: Guilherme Butt 07-25-2024 GFR/1.73 sq M.predicted among non-blacks MDRD (S/P/Bld) [Vol rate/Area] 85 mL/min/{1.73_m2} >60 [facility] Comment on above: mL/min/1.73m2 CKD-EP I Creatinine Equation (2020) Hematocrit Auto (Bld) [Volum e fraction]Ordered By: Guilherme Butt on 07-25-2024 Hematocrit (Bld) [Volume fraction] 38.4 % Low 40-54 [facility] Hemoglobin measurementOrdere d By: Guilherme Butt 07-25-2024 Hemoglobin (Bld) [Mass/Vol] 13.1 g/dL 13.0-16.5 [facility] MCV (mean corpuscular volume ) determinationOrdered By: Guilherme Butt on 07-25-2024 MCV (RBC) [Entitic vol] 94.8 fL High 80-94 [facility] Mean corpuscular hemoglobin (MCH) determinationOrdered By: Guilherme Butt on 07-25-2024 MCH (RBC) [Entitic mass] 32.3 pg High 27.0-32.0 [facility] Mean corpuscular hemoglobin concentration (MCHC) determinationOrdered By: Guilherme Butt on 07-25-2024 MCHC (RBC) [Mass/Vol] 34.1 g/dL 32-36 [facility] Mean platelet volume determi nationOrdered By: Guilherme Butt on 07-25-2024 Platelet mean volume (Bld) [Entitic vol] 9.1 fL 6.2-12.0 [facility] Platelet countOrdered By: Roselia Butt on 07-25-2024 Platelets (Bld) [#/Vol] 174 10*3/uL 150-450 [facility] Potassium (Unsp spec) [Mass/ Vol]Ordered By: Guilherme Butt on 07-25-2024 Potassium [Moles/Vol] 4.5 mmol/L 3.3-5.1 [facility] Potassium measurement (mass/ volume)Ordered By: Guilherme Butt on 07-25-2024 Potassium (Unsp spec) [Mass/Vol] 4.5 mmol/L 3.3-5.1 [facility] RBC Auto (Bld) [#/Vol]Ordere d By: Guilherme Butt on 07-25-2024 RBC (Bld) [#/Vol] 4.05 10*6/uL Low 4.6-6.2 [facility] Serum creatinine measurement (mass/volume)Ordered By: Guilherme Butt on 07-25-2024 Creatinine [Mass/Vol] 0.92 mg/dL 0.70-1.20 [facility] Serum glucose measurement (m ass/volume)Ordered By: Guilherme Butt on 07-25-2024 Glucose [Mass/Vol] 93 mg/dL 70-99 [facility] Serum or plasma calcium farshad urement (mass/volume)Ordered By: Guilherme Butt on 07-25-2024 Calcium [Mass/Vol] 9.2 mg/dL 7.6-11.0 [facility] Serum or plasma urea nitroge n measurement (mass/volume)Ordered By: Guilherme Butt on 07-25-2024 Urea nitrogen [Mass/Vol] 26 mg/dL High 4-19 [facility] Sodium levelOrdered By: Kelly Butt on 07-25-2024 Sodium [Moles/Vol] 141 mmol/L 133-145 [facility] White blood cell (WBC) count Ordered By: Guilherme Butt on 07-25-2024 WBC (Bld) [#/Vol] 4.5 10*3/uL 4.4-11.0 [facility] Blood urea nitrogen (BUN)/cr eatinine ratioOrdered By: Guilherme Butt on 06-27-2024 Urea nitrogen/Creatinine [Mass ratio] 31.6 mg/mg High 10-20 [facility] Carbon dioxide measurementOr dered By: Guilherme Butt on 06-27-2024 CO2 [Moles/Vol] 28.0 mmol/L 21.0-32.0 [facility] Chloride measurementOrdered By: Guilherme Butt on 06-27-2024 Chloride [Moles/Vol] 107 mmol/L 98-107 [facility] Erythrocyte distribution wid th (RBC) [Ratio]Ordered By: Guilherme Butt on 06-27-2024 Erythrocyte distribution width (RBC) [Entitic vol] 43.9 fL 35.1-43.9 [facility] Erythrocyte distribution wid th ratioOrdered By: Guilherme Butt on 06-27-2024 Erythrocyte distribution width (RBC) [Ratio] 12.6 % 11.6-14.6 [facility] Erythrocyte distribution wid th standard deviationOrdered By: Guilherme Butt on 06-27-2024 Erythrocyte distribution width (RBC) [Ratio] 43.9 fl 35.1-43.9 [facility] Estimated glomerular filtrat ion rate (GFR) AmericanOrdered By: Guilherme Butt on 06-27-2024 Estimated GFR (MDRD) Amer 99 mL/min >60 [facility] Comment on above: GFR Calc Glomerular filtration rate ( GFR) estimationOrdered By: Guilherme Butt on 06-27-2024 Estimated GFR (MDRD) Non-Af Amer 81 mL/min >60 [facility] Comment on above: Non- GFR Calc GFR/1.73 sq M.predicted among non-blacks MDRD (S/P/Bld) [Vol rate/Area] 81 mL/min/{1.73_m2} >60 [facility] Comment on above: Non- GFR Calc Glucose measurementOrdered B y: Guilherme Butt on 06-27-2024 Glucose [Mass/Vol] 88 mg/dL 74-106 [facility] Hematocrit Auto (Bld) [Volum e fraction]Ordered By: Guilherme Butt on 06-27-2024 Hematocrit (Bld) [Volume fraction] 37.5 % Low 40-54 [facility] Hemoglobin measurementOrdere d By: Guilherme Butt on 06-27-2024 Hemoglobin (Bld) [Mass/Vol] 12.7 g/dL Low 13.0-16.5 [facility] MCV (mean corpuscular volume ) determinationOrdered By: Guilherme Butt on 06-27-2024 MCV (RBC) [Entitic vol] 94.7 fL High 80-94 [facility] Mean corpuscular hemoglobin (MCH) determinationOrdered By: Guilherme Butt on 06-27-2024 MCH (RBC) [Entitic mass] 32.1 pg High 27.0-32.0 [facility] Mean corpuscular hemoglobin concentration (MCHC) determinationOrdered By: Guilherme Butt on 06-27-2024 MCHC (RBC) [Mass/Vol] 33.9 g/dL 32-36 [facility] Mean platelet volume determi nationOrdered By: Guilherme Butt on 06-27-2024 Platelet mean volume (Bld) [Entitic vol] 9.1 fL 6.2-12.0 [facility] Platelet countOrdered By: Roselia Butt on 06-27-2024 Platelets (Bld) [#/Vol] 173 10*3/uL 150-450 [facility] Potassium measurementOrdered By: Guilherme Butt on 06-27-2024 Potassium [Moles/Vol] 4.1 mmol/L 3.5-5.1 [facility] RBC Auto (Bld) [#/Vol]Ordere d By: Guilherme Butt on 06-27-2024 RBC (Bld) [#/Vol] 3.96 10*6/uL Low 4.6-6.2 [facility] Serum anion gap measurementO rdered By: Guilherme Butt on 06-27-2024 Anion gap [Moles/Vol] 6 mmol/L 5-15 [facility] Serum or plasma calcium farshad urement (mass/volume)Ordered By: Guilherme Butt on 06-27-2024 Calcium [Mass/Vol] 9.0 mg/dL 8.5-10.1 [facility] Serum or plasma creatinine m easurement (mass/volume)Ordered By: Guilherme Butt on 06-27-2024 Creatinine [Mass/Vol] 0.95 mg/dL 0.70-1.30 [facility] Comment on above: The validity of the calculated GFR & GFRAA in patients over 70 years has not been determined. Clinical correlation is essential. Serum or plasma urea nitroge n measurement (mass/volume)Ordered By: Guilherme Butt on 06-27-2024 Urea nitrogen [Mass/Vol] 30 mg/dL High 7-18 [facility] Sodium levelOrdered By: Kelly zuritajessenia Filomena on 06-27-2024 Sodium [Moles/Vol] 141 mmol/L 136-145 [facility] White blood cell (WBC) count Ordered By: Guilherme Butt on 06-27-2024 WBC (Bld) [#/Vol] 4.2 10*3/uL Low 4.4-11.0 [facility] Blood urea nitrogen (BUN)/cr eatinine ratioOrdered By: Guilherme Butt on 05-23-2024 Urea nitrogen/Creatinine [Mass ratio] 27.9 mg/mg High 10-20 [facility] Carbon dioxide measurementOr dered By: Guilherme Butt on 05-23-2024 CO2 [Moles/Vol] 32.0 mmol/L 21.0-32.0 [facility] Chloride measurementOrdered By: Guilherme Butt on 05-23-2024 Chloride [Moles/Vol] 105 mmol/L 98-107 [facility] Erythrocyte distribution wid th (RBC) [Ratio]Ordered By: Guilherme Butt on 05-23-2024 Erythrocyte distribution width (RBC) [Entitic vol] 44.6 fL High 35.1-43.9 [facility] Erythrocyte distribution wid th ratioOrdered By: Guilherme Butt on 05-23-2024 Erythrocyte distribution width (RBC) [Ratio] 12.7 % 11.6-14.6 [facility] Erythrocyte distribution wid th standard deviationOrdered By: Guilherme Butt on 05-23-2024 Erythrocyte distribution width (RBC) [Ratio] 44.6 fl High 35.1-43.9 [facility] Estimated glomerular filtrat ion rate (GFR) AmericanOrdered By: Guilherme Butt on 05-23-2024 Estimated GFR (MDRD) Amer 101 mL/min >60 [facility] Comment on above: GFR Calc Glomerular filtration rate ( GFR) estimationOrdered By: Guilherme Butt on 05-23-2024 Estimated GFR (MDRD) Non-Af Amer 83 mL/min >60 [facility] Comment on above: Non- GFR Calc GFR/1.73 sq M.predicted among non-blacks MDRD (S/P/Bld) [Vol rate/Area] 83 mL/min/{1.73_m2} >60 [facility] Comment on above: Non- GFR Calc Glucose measurementOrdered B y: Guilherme Butt on 05-23-2024 Glucose [Mass/Vol] 90 mg/dL 74-106 [facility] Hematocrit Auto (Bld) [Volum e fraction]Ordered By: Guilherme Butt on 05-23-2024 Hematocrit (Bld) [Volume fraction] 40.6 % 40-54 [facility] Hemoglobin measurementOrdere d By: Guilherme Butt on 05-23-2024 Hemoglobin (Bld) [Mass/Vol] 13.4 g/dL 13.0-16.5 [facility] MCV (mean corpuscular volume ) determinationOrdered By: Guilherme Butt on 05-23-2024 MCV (RBC) [Entitic vol] 95.8 fL High 80-94 [facility] Mean corpuscular hemoglobin (MCH) determinationOrdered By: Guilherme Butt on 05-23-2024 MCH (RBC) [Entitic mass] 31.6 pg 27.0-32.0 [facility] Mean corpuscular hemoglobin concentration (MCHC) determinationOrdered By: Guilherme Butt on 05-23-2024 MCHC (RBC) [Mass/Vol] 33.0 g/dL 32-36 [facility] Mean platelet volume determi nationOrdered By: Guilherme Butt on 05-23-2024 Platelet mean volume (Bld) [Entitic vol] 9.3 fL 6.2-12.0 [facility] Platelet countOrdered By: Roselia Butt on 05-23-2024 Platelets (Bld) [#/Vol] 181 10*3/uL 150-450 [facility] Potassium measurementOrdered By: Guilherme Butt on 05-23-2024 Potassium [Moles/Vol] 4.4 mmol/L 3.5-5.1 [facility] RBC Auto (Bld) [#/Vol]Ordere d By: Guilherme Butt on 05-23-2024 RBC (Bld) [#/Vol] 4.24 10*6/uL Low 4.6-6.2 [facility] Serum anion gap measurementO rdered By: Guilherme Butt on 05-23-2024 Anion gap [Moles/Vol] 2 mmol/L Low 5-15 [facility] Serum or plasma calcium farshad urement (mass/volume)Ordered By: Guilherme Butt on 05-23-2024 Calcium [Mass/Vol] 9.2 mg/dL 8.5-10.1 [facility] Serum or plasma creatinine m easurement (mass/volume)Ordered By: Guilherme Butt on 05-23-2024 Creatinine [Mass/Vol] 0.93 mg/dL 0.70-1.30 [facility] Comment on above: The validity of the calculated GFR & GFRAA in patients over 70 years has not been determined. Clinical correlation is essential. Serum or plasma urea nitroge n measurement (mass/volume)Ordered By: Guilherme Butt on 05-23-2024 Urea nitrogen [Mass/Vol] 26 mg/dL High 7-18 [facility] Sodium levelOrdered By: Kelly Butt on 05-23-2024 Sodium [Moles/Vol] 138 mmol/L 136-145 [facility] White blood cell (WBC) count Ordered By: Guilherme Butt on 05-23-2024 WBC (Bld) [#/Vol] 4.7 10*3/uL 4.4-11.0 [facility] Blood urea nitrogen (BUN)/cr eatinine ratioOrdered By: Guilherme Butt on 04-25-2024 Urea nitrogen/Creatinine [Mass ratio] 28.1 mg/mg High 10-20 [facility] Carbon dioxide measurementOr dered By: Guilherme Butt on 04-25-2024 CO2 [Moles/Vol] 31.0 mmol/L 21.0-32.0 [facility] Chloride measurementOrdered By: Guilherme Butt on 04-25-2024 Chloride [Moles/Vol] 104 mmol/L 98-107 [facility] Erythrocyte distribution wid th (RBC) [Ratio]Ordered By: Guilherme Butt on 04-25-2024 Erythrocyte distribution width (RBC) [Entitic vol] 45.0 fL High 35.1-43.9 [facility] Erythrocyte distribution wid th ratioOrdered By: Guilherme Butt on 04-25-2024 Erythrocyte distribution width (RBC) [Ratio] 12.8 % 11.6-14.6 [facility] Estimated glomerular filtrat ion rate (GFR) AmericanOrdered By: Guilherme Butt on 04-25-2024 Estimated GFR (MDRD) Amer 93 mL/min >60 [facility] Comment on above: GFR Calc Glomerular filtration rate ( GFR) estimationOrdered By: Guilherme Butt on 04-25-2024 Estimated GFR (MDRD) Non-Af Amer 77 mL/min >60 [facility] Comment on above: Non- GFR Calc Glucose measurementOrdered B y: Guilherme Butt on 04-25-2024 Glucose [Mass/Vol] 125 mg/dL High 74-106 [facility] Comment on above: Fasting Glucose resu lt from 100 to 125 mg/dL suggests IMPAIRED HOMEOSTASIS per A.D.A. criteria. Hematocrit Auto (Bld) [Volum e fraction]Ordered By: Guilherme Butt on 04-25-2024 Hematocrit (Bld) [Volume fraction] 39.0 % Low 40-54 [facility] Hemoglobin measurementOrdere d By: Guilherme Butt on 04-25-2024 Hemoglobin (Bld) [Mass/Vol] 12.8 g/dL Low 13.0-16.5 [facility] MCV (mean corpuscular volume ) determinationOrdered By: Guilherme Butt on 04-25-2024 MCV (RBC) [Entitic vol] 95.8 fL High 80-94 [facility] Mean corpuscular hemoglobin (MCH) determinationOrdered By: Guilherme Butt on 04-25-2024 MCH (RBC) [Entitic mass] 31.4 pg 27.0-32.0 [facility] Mean corpuscular hemoglobin concentration (MCHC) determinationOrdered By: Guilherme Butt on 04-25-2024 MCHC (RBC) [Mass/Vol] 32.8 g/dL 32-36 [facility] Mean platelet volume determi nationOrdered By: Guilherme Butt on 04-25-2024 Platelet mean volume (Bld) [Entitic vol] 9.2 fL 6.2-12.0 [facility] Platelet countOrdered By: Roselia Butt on 04-25-2024 Platelets (Bld) [#/Vol] 176 10*3/uL 150-450 [facility] Potassium measurementOrdered By: Guilherme Butt on 04-25-2024 Potassium [Moles/Vol] 3.9 mmol/L 3.5-5.1 [facility] RBC Auto (Bld) [#/Vol]Ordere d By: Guilherme Butt on 04-25-2024 RBC (Bld) [#/Vol] 4.07 10*6/uL Low 4.6-6.2 [facility] Serum anion gap measurementO rdered By: Guilherme Butt on 04-25-2024 Anion gap [Moles/Vol] 4 mmol/L Low 5-15 [facility] Serum or plasma calcium farshad urement (mass/volume)Ordered By: Guilherme Butt on 04-25-2024 Calcium [Mass/Vol] 9.0 mg/dL 8.5-10.1 [facility] Serum or plasma creatinine m easurement (mass/volume)Ordered By: Guilherme Butt on 04-25-2024 Creatinine [Mass/Vol] 1.00 mg/dL 0.70-1.30 [facility] Comment on above: The validity of the calculated GFR & GFRAA in patients over 70 years has not been determined. Clinical correlation is essential. Serum or plasma urea nitroge n measurement (mass/volume)Ordered By: Guilherme Butt on 04-25-2024 Urea nitrogen [Mass/Vol] 28 mg/dL High 7-18 [facility] Sodium levelOrdered By: Kelly yeerodolfo Filomena on 04-25-2024 Sodium [Moles/Vol] 139 mmol/L 136-145 [facility] White blood cell (WBC) count Ordered By: Guilherme Butt on 04-25-2024 WBC (Bld) [#/Vol] 4.2 10*3/uL Low 4.4-11.0 [facility] Basophil percentageOrdered B y: Guilherme Butt on 08-24-2023 Chloride [Moles/Vol] 105 mmol/L 98-107 [facility] Glucose [Mass/Vol] 86 mg/dL 74-106 [facility] Hemoglobin (Bld) [Mass/Vol] 13.3 g/dL 13.0-16.5 [facility] Potassium [Moles/Vol] 4.5 mmol/L 3.5-5.1 [facility] Sodium [Moles/Vol] 138 mmol/L 136-145 [facility] WBC (Bld) [#/Vol] 4.6 10*3/uL 4.4-11.0 [facility] Determination of erythrocyte mean corpuscular volume (MCV)Ordered By: Guilherme Butt on 08-24-2023 MCV (RBC) [Entitic vol] 96.2 fL 80-94 [facility] Erythrocyte distribution wid th ratioOrdered By: Guilherme Butt on 08-24-2023 Erythrocyte distribution width (RBC) [Ratio] 13.0 % 11.6-14.6 [facility] Erythrocyte distribution wid th standard deviationOrdered By: Kellymidlanddmitri Butt on 08-24-2023 Erythrocyte distribution width (RBC) [Entitic vol] 46.1 fL 35.1-43.9 [facility] Hematocrit Auto (Bld) [Volum e fraction]Ordered By: Guilherme Butt on 08-24-2023 Hematocrit (Bld) [Volume fraction] 40.6 % 40-54 [facility] Laboratory - Chemistry and C hemistry - challengeOrdered By: Guilherme Butt on 08-24-2023 CO2 [Moles/Vol] 30.0 mmol/L 21.0-32.0 [facility] Urea nitrogen/Creatinine [Mass ratio] 26.9 mg/mg 10-20 [facility] Laboratory - Hematology and Cell countsOrdered By: Guilherme Butt on 08-24-2023 MCH (RBC) [Entitic mass] 31.5 pg 27.0-32.0 [facility] MCHC (RBC) [Mass/Vol] 32.8 g/dL 32-36 [facility] Platelet mean volume (Bld) [Entitic vol] 9.2 fL 6.2-12.0 [facility] Platelets (Bld) [#/Vol] 193 10*3/uL 150-450 [facility] No Panel InformationOrdered By: Guilherme Butt on 08-24-2023 Estimated GFR (MDRD) Amer 89 mL/min >60 [facility] Comment on above: GFR Calc Estimated GFR (MDRD) Non-Af Amer 73 mL/min >60 [facility] Comment on above: Non- GFR Calc RBC Auto (Bld) [#/Vol]Ordere d By: Guilherme Butt on 08-24-2023 RBC (Bld) [#/Vol] 4.22 10*6/uL 4.6-6.2 [facility] Serum or plasma calcium farshad urement (mass/volume)Ordered By: Guilherme Butt on 08-24-2023 Calcium [Mass/Vol] 9.0 mg/dL 8.5-10.1 [facility] Serum or plasma creatinine m easurement (mass/volume)Ordered By: Guilherme Butt on 08-24-2023 Creatinine [Mass/Vol] 1.04 mg/dL 0.70-1.30 [facility] Comment on above: The validity of the calculated GFR & GFRAA in patients over 70 years has not been determined. Clinical correlation is essential. Serum or plasma urea nitroge n measurement (mass/volume)Ordered By: Guilherme Butt on 08-24-2023 Urea nitrogen [Mass/Vol] 28 mg/dL 7-18 [facility] Thin prep Papanicolaou smear with manual screeningOrdered By: kieranmidlanddmitri Butt on 08-24-2023 Thin prep Papanicolaou smear with manual screening 3 5-15 [facility] Basophil percentageOrdered B y: Guilherme Butt on 07-20-2023 Chloride [Moles/Vol] 109 mmol/L 98-107 [facility] Glucose [Mass/Vol] 83 mg/dL 74-106 [facility] Hemoglobin (Bld) [Mass/Vol] 13.1 g/dL 13.0-16.5 [facility] Potassium [Moles/Vol] 4.2 mmol/L 3.5-5.1 [facility] Sodium [Moles/Vol] 142 mmol/L 136-145 [facility] WBC (Bld) [#/Vol] 4.5 10*3/uL 4.4-11.0 [facility] Determination of erythrocyte mean corpuscular volume (MCV)Ordered By: Guilherme Butt on 07-20-2023 MCV (RBC) [Entitic vol] 94.4 fL 80-94 [facility] Erythrocyte distribution wid th ratioOrdered By: Guilherme Butt on 07-20-2023 Erythrocyte distribution width (RBC) [Ratio] 12.8 % 11.6-14.6 [facility] Erythrocyte distribution wid th standard deviationOrdered By: Guilherme Butt on 07-20-2023 Erythrocyte distribution width (RBC) [Entitic vol] 44.0 fL 35.1-43.9 [facility] Hematocrit Auto (Bld) [Volum e fraction]Ordered By: Guilherme Butt on 07-20-2023 Hematocrit (Bld) [Volume fraction] 38.9 % 40-54 [facility] Laboratory - Chemistry and C hemistry - challengeOrdered By: Guilherme Butt on 07-20-2023 CO2 [Moles/Vol] 26.0 mmol/L 21.0-32.0 [facility] Urea nitrogen/Creatinine [Mass ratio] 31.5 mg/mg 10-20 [facility] Laboratory - Hematology and Cell countsOrdered By: Guilherme Butt on 07-20-2023 MCH (RBC) [Entitic mass] 31.8 pg 27.0-32.0 [facility] MCHC (RBC) [Mass/Vol] 33.7 g/dL 32-36 [facility] Platelet mean volume (Bld) [Entitic vol] 9.1 fL 6.2-12.0 [facility] Platelets (Bld) [#/Vol] 195 10*3/uL 150-450 [facility] No Panel InformationOrdered By: Guilherme Butt on 07-20-2023 Estimated GFR (MDRD) Amer 102 mL/min >60 [facility] Comment on above: GFR Calc Estimated GFR (MDRD) Non-Af Amer 84 mL/min >60 [facility] Comment on above: Non- GFR Calc RBC Auto (Bld) [#/Vol]Ordere d By: Guilherme Butt on 07-20-2023 RBC (Bld) [#/Vol] 4.12 10*6/uL 4.6-6.2 [facility] Serum or plasma calcium farshad urement (mass/volume)Ordered By: Guilherme Butt on 07-20-2023 Calcium [Mass/Vol] 8.8 mg/dL 8.5-10.1 [facility] Serum or plasma creatinine m easurement (mass/volume)Ordered By: Guilherme Butt on 07-20-2023 Creatinine [Mass/Vol] 0.92 mg/dL 0.70-1.30 [facility] Comment on above: The validity of the calculated GFR & GFRAA in patients over 70 years has not been determined. Clinical correlation is essential. Serum or plasma urea nitroge n measurement (mass/volume)Ordered By: Guilherme Butt on 07-20-2023 Urea nitrogen [Mass/Vol] 29 mg/dL 7-18 [facility] Thin prep Papanicolaou smear with manual screeningOrdered By: felipa Butt on 07-20-2023 Thin prep Papanicolaou smear with manual screening 7 5-15 [facility] Basophil percentageOrdered B y: Guilherme Butt on 06-22-2023 Chloride [Moles/Vol] 107 mmol/L 98-107 [facility] Glucose [Mass/Vol] 88 mg/dL 74-106 [facility] Hemoglobin (Bld) [Mass/Vol] 12.8 g/dL 13.0-16.5 [facility] Potassium [Moles/Vol] 4.4 mmol/L 3.5-5.1 [facility] Sodium [Moles/Vol] 141 mmol/L 136-145 [facility] WBC (Bld) [#/Vol] 4.6 10*3/uL 4.4-11.0 [facility] Determination of erythrocyte mean corpuscular volume (MCV)Ordered By: Guilherme Butt on 06-22-2023 MCV (RBC) [Entitic vol] 93.4 fL 80-94 [facility] Erythrocyte distribution wid th ratioOrdered By: Guilherme Butt on 06-22-2023 Erythrocyte distribution width (RBC) [Ratio] 12.5 % 11.6-14.6 [facility] Erythrocyte distribution wid th standard deviationOrdered By: Guilherme Butt on 06-22-2023 Erythrocyte distribution width (RBC) [Entitic vol] 43.2 fL 35.1-43.9 [facility] Hematocrit Auto (Bld) [Volum e fraction]Ordered By: Guilherme Butt on 06-22-2023 Hematocrit (Bld) [Volume fraction] 38.4 % 40-54 [facility] Laboratory - Chemistry and C hemistry - challengeOrdered By: Guilherme Butt on 06-22-2023 CO2 [Moles/Vol] 30.0 mmol/L 21.0-32.0 [facility] Urea nitrogen/Creatinine [Mass ratio] 26.5 mg/mg 10-20 [facility] Laboratory - Hematology and Cell countsOrdered By: Guilherme Butt on 06-22-2023 MCH (RBC) [Entitic mass] 31.1 pg 27.0-32.0 [facility] MCHC (RBC) [Mass/Vol] 33.3 g/dL 32-36 [facility] Platelet mean volume (Bld) [Entitic vol] 9.0 fL 6.2-12.0 [facility] Platelets (Bld) [#/Vol] 194 10*3/uL 150-450 [facility] No Panel InformationOrdered By: Guilherme Butt on 06-22-2023 Estimated GFR (MDRD) Amer 104 mL/min >60 [facility] Comment on above: GFR Calc Estimated GFR (MDRD) Non-Af Amer 86 mL/min >60 [facility] Comment on above: Non- GFR Calc RBC Auto (Bld) [#/Vol]Ordere d By: Guilherme Butt on 06-22-2023 RBC (Bld) [#/Vol] 4.11 10*6/uL 4.6-6.2 [facility] Serum or plasma calcium farshad urement (mass/volume)Ordered By: Guilherme Butt on 06-22-2023 Calcium [Mass/Vol] 8.8 mg/dL 8.5-10.1 [facility] Serum or plasma creatinine m easurement (mass/volume)Ordered By: Guilherme Butt on 06-22-2023 Creatinine [Mass/Vol] 0.90 mg/dL 0.70-1.30 [facility] Comment on above: The validity of the calculated GFR & GFRAA in patients over 70 years has not been determined. Clinical correlation is essential. Serum or plasma urea nitroge n measurement (mass/volume)Ordered By: Guilherme Butt on 06-22-2023 Urea nitrogen [Mass/Vol] 24 mg/dL 7-18 [facility] Thin prep Papanicolaou smear with manual screeningOrdered By: Guilherme Butt on 06-22-2023 Thin prep Papanicolaou smear with manual screening 4 5-15 [facility] Basophil percentageOrdered B y: Cecy Gray on 05-25-2023 Chloride [Moles/Vol] 107 mmol/L 98-107 [facility] Glucose [Mass/Vol] 138 mg/dL 74-106 [facility] Comment on above: Fasting Glucose resu lt greater than or equal to 126 mg/dL suggests DIABETES MELLITUS per A.D.A. criteria. Potassium [Moles/Vol] 4.1 mmol/L 3.5-5.1 [facility] Sodium [Moles/Vol] 141 mmol/L 136-145 [facility] WBC (Bld) [#/Vol] 5.5 10*3/uL 4.4-11.0 [facility] Blood erythrocytes count (nu mber/volume)Ordered By: Cecy Gray on 05-25-2023 RBC (Bld) [#/Vol] 4.36 10*6/uL 4.6-6.2 [facility] [facility] Blood hemoglobin measurement (mass/volume)Ordered By: Cecy Gray on 05-25-2023 Hemoglobin (Bld) [Mass/Vol] 13.5 g/dL 13.0-16.5 [facility] Blood platelet mean volumeOr dered By: Cecy Gray on 05-25-2023 Platelet mean volume (Bld) [Entitic vol] 9.2 fL 6.2-12.0 [facility] Determination of erythrocyte mean corpuscular volume (MCV)Ordered By: Cecy Gray on 05-25-2023 MCV (RBC) [Entitic vol] 94.0 fL 80-94 [facility] Hematocrit Auto (Bld) [Volum e fraction]Ordered By: Cecy Gray on 05-25-2023 Hematocrit (Bld) [Volume fraction] 41.0 % 40-54 [facility] Laboratory - Chemistry and C hemistry - challengeOrdered By: Cecy Gray on 05-25-2023 CO2 [Moles/Vol] 26.0 mmol/L 21.0-32.0 [facility] Urea nitrogen/Creatinine [Mass ratio] 25.2 mg/mg 10-20 [facility] Laboratory - Hematology and Cell countsOrdered By: Cecy Gray on 05-25-2023 Erythrocyte distribution width (RBC) [Entitic vol] 43.3 fL 35.1-43.9 [facility] Erythrocyte distribution width (RBC) [Ratio] 12.4 % 11.6-14.6 [facility] MCH (RBC) [Entitic mass] 31.0 pg 27.0-32.0 [facility] MCHC Auto (RBC) [Mass/Vol]Or dered By: Cecy Gray on 05-25-2023 MCHC (RBC) [Mass/Vol] 32.9 g/dL 32-36 [facility] No Panel InformationOrdered By: Cecy Gray on 05-25-2023 Estimated GFR (MDRD) Amer 86 mL/min >60 [facility] Comment on above: GFR Calc Estimated GFR (MDRD) Non-Af Amer 71 mL/min >60 [facility] Comment on above: Non- GFR Calc Platelets bldOrdered By: Reinier Gray on 05-25-2023 Platelets (Bld) [#/Vol] 214 10*3/uL 150-450 [facility] Serum or plasma calcium farshad urement (mass/volume)Ordered By: Cecy Gray on 05-25-2023 Calcium [Mass/Vol] 9.2 mg/dL 8.5-10.1 [facility] Serum or plasma creatinine m easurement (mass/volume)Ordered By: Cecy Gray on 05-25-2023 Creatinine [Mass/Vol] 1.07 mg/dL 0.70-1.30 [facility] Comment on above: The validity of the calculated GFR & GFRAA in patients over 70 years has not been determined. Clinical correlation is essential. Serum or plasma urea nitroge n measurement (mass/volume)Ordered By: Cecy Gray on 05-25-2023 Urea nitrogen [Mass/Vol] 27 mg/dL 7-18 [facility] Thin prep Papanicolaou smear with manual screeningOrdered By: Cecy Gray on 05-25-2023 Thin prep Papanicolaou smear with manual screening 8 5-15 [facility] Basophil percentageOrdered B y: Cecy Gray on 04-20-2023 Chloride [Moles/Vol] 106 mmol/L 98-107 [facility] Glucose [Mass/Vol] 100 mg/dL 74-106 [facility] Comment on above: Fasting Glucose resu lt from 100 to 125 mg/dL suggests IMPAIRED HOMEOSTASIS per A.D.A. criteria. Potassium [Moles/Vol] 4.8 mmol/L 3.5-5.1 [facility] Sodium [Moles/Vol] 140 mmol/L 136-145 [facility] WBC (Bld) [#/Vol] 5.2 10*3/uL 4.4-11.0 [facility] Blood erythrocytes count (nu mber/volume)Ordered By: Cecy Gray on 04-20-2023 RBC (Bld) [#/Vol] 4.26 10*6/uL 4.6-6.2 [facility] Blood hemoglobin measurement (mass/volume)Ordered By: Cecy Gray on 04-20-2023 Hemoglobin (Bld) [Mass/Vol] 13.8 g/dL 13.0-16.5 [facility] Blood platelet mean volumeOr dered By: Cecy Gray on 04-20-2023 Platelet mean volume (Bld) [Entitic vol] 9.1 fL 6.2-12.0 [facility] Determination of erythrocyte mean corpuscular volume (MCV)Ordered By: Cecy Gray on 04-20-2023 MCV (RBC) [Entitic vol] 96.9 fL 80-94 [facility] Hematocrit Auto (Bld) [Volum e fraction]Ordered By: Cecy Gray on 04-20-2023 Hematocrit (Bld) [Volume fraction] 41.3 % 40-54 [facility] Laboratory - Chemistry and C hemistry - challengeOrdered By: Cecy Gray on 04-20-2023 CO2 [Moles/Vol] 34.0 mmol/L 21.0-32.0 [facility] Urea nitrogen/Creatinine [Mass ratio] 23.8 mg/mg 10-20 [facility] Laboratory - Hematology and Cell countsOrdered By: Cecy Gray on 04-20-2023 Erythrocyte distribution width (RBC) [Entitic vol] 45.5 fL 35.1-43.9 [facility] Erythrocyte distribution width (RBC) [Ratio] 12.8 % 11.6-14.6 [facility] MCH (RBC) [Entitic mass] 32.4 pg 27.0-32.0 [facility] MCHC Auto (RBC) [Mass/Vol]Or dered By: Cecy Gray on 04-20-2023 MCHC (RBC) [Mass/Vol] 33.4 g/dL 32-36 [facility] No Panel InformationOrdered By: Cecy Gray on 04-20-2023 Estimated GFR (MDRD) Amer 88 mL/min >60 [facility] Comment on above: GFR Calc Estimated GFR (MDRD) Non-Af Amer 73 mL/min >60 [facility] Comment on above: Non- GFR Calc Platelets bldOrdered By: Reinier Gray on 04-20-2023 Platelets (Bld) [#/Vol] 234 10*3/uL 150-450 [facility] Serum or plasma calcium farshad urement (mass/volume)Ordered By: Cecy Gray on 04-20-2023 Calcium [Mass/Vol] 9.3 mg/dL 8.5-10.1 [facility] Serum or plasma creatinine m easurement (mass/volume)Ordered By: Cecy Gray on 04-20-2023 Creatinine [Mass/Vol] 1.05 mg/dL 0.70-1.30 [facility] Comment on above: The validity of the calculated GFR & GFRAA in patients over 70 years has not been determined. Clinical correlation is essential. Serum or plasma urea nitroge n measurement (mass/volume)Ordered By: Cecy Gray on 04-20-2023 Urea nitrogen [Mass/Vol] 25 mg/dL 7-18 [facility] Thin prep Papanicolaou smear with manual screeningOrdered By: Cecy Gray on 04-20-2023 Thin prep Papanicolaou smear with manual screening 0 5-15 [facility] Basophil percentageOrdered B y: Cecy Gray on 03-23-2023 Chloride [Moles/Vol] 104 mmol/L 98-107 [facility] Glucose [Mass/Vol] 91 mg/dL 74-106 [facility] Potassium [Moles/Vol] 4.1 mmol/L 3.5-5.1 [facility] Sodium [Moles/Vol] 141 mmol/L 136-145 [facility] WBC (Bld) [#/Vol] 4.5 10*3/uL 4.4-11.0 [facility] Blood erythrocytes count (nu mber/volume)Ordered By: Cecy Gray on 03-23-2023 RBC (Bld) [#/Vol] 4.07 10*6/uL 4.6-6.2 [facility] Blood hemoglobin measurement (mass/volume)Ordered By: Cecy Grya on 03-23-2023 Hemoglobin (Bld) [Mass/Vol] 12.8 g/dL 13.0-16.5 [facility] Blood platelet mean volumeOr dered By: Cecy Gray on 03-23-2023 Platelet mean volume (Bld) [Entitic vol] 9.4 fL 6.2-12.0 [facility] Determination of erythrocyte mean corpuscular volume (MCV)Ordered By: Cecy Gray on 03-23-2023 MCV (RBC) [Entitic vol] 97.5 fL 80-94 [facility] Hematocrit Auto (Bld) [Volum e fraction]Ordered By: Cecy Gray on 03-23-2023 Hematocrit (Bld) [Volume fraction] 39.7 % 40-54 [facility] Laboratory - Chemistry and C hemistry - challengeOrdered By: Cecy Gray on 03-23-2023 CO2 [Moles/Vol] 31.0 mmol/L 21.0-32.0 [facility] Urea nitrogen/Creatinine [Mass ratio] 28.0 mg/mg 10-20 [facility] Laboratory - Hematology and Cell countsOrdered By: Cecy Gray on 03-23-2023 Erythrocyte distribution width (RBC) [Entitic vol] 46.2 fL 35.1-43.9 [facility] Erythrocyte distribution width (RBC) [Ratio] 12.8 % 11.6-14.6 [facility] MCH (RBC) [Entitic mass] 31.4 pg 27.0-32.0 [facility] MCHC Auto (RBC) [Mass/Vol]Or dered By: Cecy Gray on 03-23-2023 MCHC (RBC) [Mass/Vol] 32.2 g/dL 32-36 [facility] No Panel InformationOrdered By: Cecy Gray on 03-23-2023 Estimated GFR (MDRD) Amer 93 mL/min >60 [facility] Comment on above: GFR Calc Estimated GFR (MDRD) Non-Af Amer 77 mL/min >60 [facility] Comment on above: Non- GFR Calc Platelets bldOrdered By: Reinier Gray on 03-23-2023 Platelets (Bld) [#/Vol] 210 10*3/uL 150-450 [facility] Serum or plasma calcium farshad urement (mass/volume)Ordered By: Cecy Gray on 03-23-2023 Calcium [Mass/Vol] 8.9 mg/dL 8.5-10.1 [facility] Serum or plasma creatinine m easurement (mass/volume)Ordered By: Cecy Gray on 03-23-2023 Creatinine [Mass/Vol] 1.00 mg/dL 0.70-1.30 [facility] Comment on above: The validity of the calculated GFR & GFRAA in patients over 70 years has not been determined. Clinical correlation is essential. Serum or plasma urea nitroge n measurement (mass/volume)Ordered By: Cecy Gray on 03-23-2023 Urea nitrogen [Mass/Vol] 28 mg/dL 7-18 [facility] Thin prep Papanicolaou smear with manual screeningOrdered By: Cecy Gray on 03-23-2023 Thin prep Papanicolaou smear with manual screening 6 5-15 [facility] Basophil percentageOrdered B y: Cecy Gray on 02-23-2023 Chloride [Moles/Vol] 106 mmol/L 98-107 [facility] Glucose [Mass/Vol] 93 mg/dL 74-106 [facility] Potassium [Moles/Vol] 4.3 mmol/L 3.5-5.1 [facility] Sodium [Moles/Vol] 139 mmol/L 136-145 [facility] WBC (Bld) [#/Vol] 5.0 10*3/uL 4.4-11.0 [facility] Blood erythrocytes count (nu mber/volume)Ordered By: Cecy Gray on 02-23-2023 RBC (Bld) [#/Vol] 4.08 10*6/uL 4.6-6.2 [facility] Blood hemoglobin measurement (mass/volume)Ordered By: Cecy Gray on 02-23-2023 Hemoglobin (Bld) [Mass/Vol] 12.9 g/dL 13.0-16.5 [facility] Blood platelet mean volumeOr dered By: Cecy Gray on 02-23-2023 Platelet mean volume (Bld) [Entitic vol] 9.3 fL 6.2-12.0 [facility] Determination of erythrocyte mean corpuscular volume (MCV)Ordered By: Cecy Gray on 02-23-2023 MCV (RBC) [Entitic vol] 97.8 fL 80-94 [facility] Hematocrit Auto (Bld) [Volum e fraction]Ordered By: Cecy Gray on 02-23-2023 Hematocrit (Bld) [Volume fraction] 39.9 % 40-54 [facility] Laboratory - Chemistry and C hemistry - challengeOrdered By: Cecy Gray on 02-23-2023 CO2 [Moles/Vol] 30.0 mmol/L 21.0-32.0 [facility] Urea nitrogen/Creatinine [Mass ratio] 29.9 mg/mg 10-20 [facility] Laboratory - Hematology and Cell countsOrdered By: Cecy Gray on 02-23-2023 Erythrocyte distribution width (RBC) [Entitic vol] 45.7 fL 35.1-43.9 [facility] Erythrocyte distribution width (RBC) [Ratio] 12.6 % 11.6-14.6 [facility] MCH (RBC) [Entitic mass] 31.6 pg 27.0-32.0 [facility] MCHC Auto (RBC) [Mass/Vol]Or dered By: Cecy Gray on 02-23-2023 MCHC (RBC) [Mass/Vol] 32.3 g/dL 32-36 [facility] No Panel InformationOrdered By: Cecy Gray on 02-23-2023 Estimated GFR (MDRD) Amer 86 mL/min >60 [facility] Comment on above: GFR Calc Estimated GFR (MDRD) Non-Af Amer 71 mL/min >60 [facility] Comment on above: Non- GFR Calc Platelets bldOrdered By: Reinier Gray on 02-23-2023 Platelets (Bld) [#/Vol] 201 10*3/uL 150-450 [facility] Serum or plasma calcium farshad urement (mass/volume)Ordered By: Cecy Gray on 02-23-2023 Calcium [Mass/Vol] 8.8 mg/dL 8.5-10.1 [facility] Serum or plasma creatinine m easurement (mass/volume)Ordered By: Cecy Gray on 02-23-2023 Creatinine [Mass/Vol] 1.07 mg/dL 0.70-1.30 [facility] Comment on above: The validity of the calculated GFR & GFRAA in patients over 70 years has not been determined. Clinical correlation is essential. Serum or plasma urea nitroge n measurement (mass/volume)Ordered By: Cecy Gray on 02-23-2023 Urea nitrogen [Mass/Vol] 32 mg/dL 7-18 [facility] Thin prep Papanicolaou smear with manual screeningOrdered By: Cecy Gray on 02-23-2023 Thin prep Papanicolaou smear with manual screening 3 5-15 [facility] Basophil percentageOrdered B y: Guilherme Butt on 02-06-2023 Bilirubin [Mass/Vol] 0.50 mg/dL 0.20-1.00 [facility] Comment on above: For patients on eltr ombopag therapy, use of Dimension [place] TBIL is not recommended. Cholesterol [Mass/Vol] 180 mg/dL <200 [facility] Comment on above: <200 mg/dL Desirable 200-240 mg/dL Borderline >240 mg/dL High Risk Protein [Mass/Vol] 6.3 g/dL 6.4-8.2 [facility] Triglyceride [Mass/Vol] 108 mg/dL <199 [facility] Comment on above: The drugs N-Acetylcy steine and Metamizole may falsely depress this assay.Serum Triglycerides Reference Interval Normal <150 mg/dL Borderline high 150 - 199 mg/dL High 200 - 499 mg/dL Very High > or = 500 mg/dL Direct bilirubinOrdered By: Guilherme Butt on 02-06-2023 Bilirubin.direct [Mass/Vol] 0.11 mg/dL 0.00-0.30 [facility] Laboratory - Chemistry and C hemistry - challengeOrdered By: Guilherem Butt on 02-06-2023 ALP [Catalytic activity/Vol] 119 U/L 45-117 [facility] ALT [Catalytic activity/Vol] 9 U/L 16-61 [facility] Free T4 [Mass/Vol] 0.65 ng/dL 0.76-1.46 [facility] Globulin (S) [Mass/Vol] 2.9 g/dL 2.2-4.2 [facility] No Panel InformationOrdered By: Guilherme Butt on 02-06-2023 Thyroid Stimulating Hormone (TSH) 1.03 uIU/mL 0.358-3.74 [facility] Serum or plasma albumin farshad urement (mass/volume)Ordered By: Guilherme Butt on 02-06-2023 Albumin [Mass/Vol] 3.4 g/dL 3.2-5.0 [facility] Serum or plasma cholesterol in HDL measurement (mass/volume)Ordered By: Guilherme Butt on 02-06-2023 Cholesterol in HDL [Mass/Vol] 50 mg/dL >40 [facility] Comment on above: The drugs N-Acetylcy steine and Metamizole may falsely depress this assay. Reference Range HDL <40 mg/dL Low HDL Cholesterol HDL >or= 60 mg/dL High HDL Cholesterol Serum or plasma cholesterol in VLDL measurement (mass/volume)Ordered By: Guilherme Butt on 02-06-2023 Cholesterol in VLDL [Mass/Vol] 22 mg/dL 5-40 [facility] Serum or plasma low density lipoprotein (LDL) cholesterol measurement (mass/volume)Ordered By: Guilherme Butt on 02-06-2023 Cholesterol in LDL [Mass/Vol] 108 mg/dL 0-130 [facility] Thin prep Papanicolaou smear with manual screeningOrdered By: Guilherme Butt on 02-06-2023 Thin prep Papanicolaou smear with manual screening 11 U/L 15-37 [facility] Whole blood hemoglobin A1c/t otal hemoglobin ratio (mass fraction)Ordered By: Guilherme Butt on 02-06-2023 HbA1c (Bld) [Mass fraction] 5.3 % 3.8-5.6 [facility] Comment on above: Normal < 5.7 % Predi abetic 5.7 - 6.4 % Diabetic >or= 6.5 % Please note range changes. Basophil percentageOrdered B y: Guilherme Butt on 01-19-2023 Chloride [Moles/Vol] 107 mmol/L 98-107 [facility] Glucose [Mass/Vol] 93 mg/dL 74-106 [facility] Potassium [Moles/Vol] 4.8 mmol/L 3.5-5.1 [facility] Sodium [Moles/Vol] 141 mmol/L 136-145 [facility] WBC (Bld) [#/Vol] 4.5 10*3/uL 4.4-11.0 [facility] Blood erythrocytes count (nu mber/volume)Ordered By: Guilherme Butt on 01-19-2023 RBC (Bld) [#/Vol] 4.22 10*6/uL 4.6-6.2 [facility] Blood hemoglobin measurement (mass/volume)Ordered By: Guilherme Butt on 01-19-2023 Hemoglobin (Bld) [Mass/Vol] 13.4 g/dL 13.0-16.5 [facility] Blood platelet mean volumeOr dered By: Guilherme Butt on 01-19-2023 Platelet mean volume (Bld) [Entitic vol] 9.4 fL 6.2-12.0 [facility] Determination of erythrocyte mean corpuscular volume (MCV)Ordered By: Guilherme Butt on 01-19-2023 MCV (RBC) [Entitic vol] 99.1 fL 80-94 [facility] Hematocrit Auto (Bld) [Volum e fraction]Ordered By: Guilherme Butt on 01-19-2023 Hematocrit (Bld) [Volume fraction] 41.8 % 40-54 [facility] Laboratory - Chemistry and C hemistry - challengeOrdered By: Guilherme Butt on 01-19-2023 CO2 [Moles/Vol] 32.0 mmol/L 21.0-32.0 [facility] Urea nitrogen/Creatinine [Mass ratio] 25.5 mg/mg 10-20 [facility] Laboratory - Hematology and Cell countsOrdered By: Guilherme Butt on 01-19-2023 Erythrocyte distribution width (RBC) [Entitic vol] 46.4 fL 35.1-43.9 [facility] Erythrocyte distribution width (RBC) [Ratio] 12.8 % 11.6-14.6 [facility] MCH (RBC) [Entitic mass] 31.8 pg 27.0-32.0 [facility] MCHC Auto (RBC) [Mass/Vol]Or dered By: Guilherme Butt on 01-19-2023 MCHC (RBC) [Mass/Vol] 32.1 g/dL 32-36 [facility] No Panel InformationOrdered By: Guilherme Butt on 01-19-2023 Estimated GFR (MDRD) Amer 91 mL/min >60 [facility] Comment on above: GFR Calc Estimated GFR (MDRD) Non-Af Amer 75 mL/min >60 [facility] Comment on above: Non- GFR Calc Platelets bldOrdered By: Jamaal Butt on 01-19-2023 Platelets (Bld) [#/Vol] 180 10*3/uL 150-450 [facility] Serum or plasma calcium farshad urement (mass/volume)Ordered By: Guilherme Butt on 01-19-2023 Calcium [Mass/Vol] 9.1 mg/dL 8.5-10.1 [facility] Serum or plasma creatinine m easurement (mass/volume)Ordered By: Guilherme Butt on 01-19-2023 Creatinine [Mass/Vol] 1.02 mg/dL 0.70-1.30 [facility] Comment on above: The validity of the calculated GFR & GFRAA in patients over 70 years has not been determined. Clinical correlation is essential. Serum or plasma urea nitroge n measurement (mass/volume)Ordered By: Guilherme Butt on 01-19-2023 Urea nitrogen [Mass/Vol] 26 mg/dL 7-18 [facility] Thin prep Papanicolaou smear with manual screeningOrdered By: Guilherme Butt on 01-19-2023 Thin prep Papanicolaou smear with manual screening 2 5-15 [facility] Basophil percentageOrdered B y: Guilherme Butt on 12-22-2022 Chloride [Moles/Vol] 106 mmol/L 98-107 [facility] Glucose [Mass/Vol] 87 mg/dL 74-106 [facility] Potassium [Moles/Vol] 4.5 mmol/L 3.5-5.1 [facility] Sodium [Moles/Vol] 140 mmol/L 136-145 [facility] WBC (Bld) [#/Vol] 4.6 10*3/uL 4.4-11.0 [facility] Blood erythrocytes count (nu mber/volume)Ordered By: Guilherme Butt on 12-22-2022 RBC (Bld) [#/Vol] 4.14 10*6/uL 4.6-6.2 [facility] Blood hemoglobin measurement (mass/volume)Ordered By: Guilherme Butt on 12-22-2022 Hemoglobin (Bld) [Mass/Vol] 13.4 g/dL 13.0-16.5 [facility] Blood platelet mean volumeOr dered By: Guilherme Butt on 12-22-2022 Platelet mean volume (Bld) [Entitic vol] 9.0 fL 6.2-12.0 [facility] Determination of erythrocyte mean corpuscular volume (MCV)Ordered By: Guilherme Butt on 12-22-2022 MCV (RBC) [Entitic vol] 97.3 fL 80-94 [facility] Hematocrit Auto (Bld) [Volum e fraction]Ordered By: Guilherme Butt on 12-22-2022 Hematocrit (Bld) [Volume fraction] 40.3 % 40-54 [facility] Laboratory - Chemistry and C hemistry - challengeOrdered By: Guilherme Butt on 12-22-2022 CO2 [Moles/Vol] 33.0 mmol/L 21.0-32.0 [facility] Urea nitrogen/Creatinine [Mass ratio] 26.2 mg/mg 10-20 [facility] Laboratory - Hematology and Cell countsOrdered By: Guilherme Butt on 12-22-2022 Erythrocyte distribution width (RBC) [Entitic vol] 45.3 fL 35.1-43.9 [facility] Erythrocyte distribution width (RBC) [Ratio] 12.8 % 11.6-14.6 [facility] MCH (RBC) [Entitic mass] 32.4 pg 27.0-32.0 [facility] MCHC Auto (RBC) [Mass/Vol]Or dered By: Guilherme Butt on 12-22-2022 MCHC (RBC) [Mass/Vol] 33.3 g/dL 32-36 [facility] No Panel InformationOrdered By: Guilhreme Butt on 12-22-2022 Estimated GFR (MDRD) Amer 94 mL/min >60 [facility] Comment on above: GFR Calc Estimated GFR (MDRD) Non-Af Amer 78 mL/min >60 [facility] Comment on above: Non- GFR Calc Platelets bldOrdered By: Jamaal Butt on 12-22-2022 Platelets (Bld) [#/Vol] 179 10*3/uL 150-450 [facility] Serum or plasma calcium farshad urement (mass/volume)Ordered By: Guilherme Butt on 12-22-2022 Calcium [Mass/Vol] 8.9 mg/dL 8.5-10.1 [facility] Serum or plasma creatinine m easurement (mass/volume)Ordered By: Guilherme Butt on 12-22-2022 Creatinine [Mass/Vol] 0.99 mg/dL 0.70-1.30 [facility] Comment on above: The validity of the calculated GFR & GFRAA in patients over 70 years has not been determined. Clinical correlation is essential. Serum or plasma urea nitroge n measurement (mass/volume)Ordered By: Guilherme Butt on 12-22-2022 Urea nitrogen [Mass/Vol] 26 mg/dL 7-18 [facility] Thin prep Papanicolaou smear with manual screeningOrdered By: Guilherme Butt on 12-22-2022 Thin prep Papanicolaou smear with manual screening 1 5-15 [facility] Basophil percentageOrdered B y: Guilherme Butt on 11-24-2022 Chloride [Moles/Vol] 109 mmol/L 98-107 [facility] Glucose [Mass/Vol] 132 mg/dL 74-106 [facility] Comment on above: Fasting Glucose resu lt greater than or equal to 126 mg/dL suggests DIABETES MELLITUS per A.D.A. criteria. Potassium [Moles/Vol] 4.0 mmol/L 3.5-5.1 [facility] Sodium [Moles/Vol] 140 mmol/L 136-145 [facility] WBC (Bld) [#/Vol] 4.6 10*3/uL 4.4-11.0 [facility] Blood erythrocytes count (nu mber/volume)Ordered By: Guilherme Butt on 11-24-2022 RBC (Bld) [#/Vol] 4.06 10*6/uL 4.6-6.2 [facility] Blood hemoglobin measurement (mass/volume)Ordered By: Guilherme Butt on 11-24-2022 Hemoglobin (Bld) [Mass/Vol] 13.0 g/dL 13.0-16.5 [facility] Blood platelet mean volumeOr dered By: Guilherme Butt on 11-24-2022 Platelet mean volume (Bld) [Entitic vol] 9.3 fL 6.2-12.0 [facility] Determination of erythrocyte mean corpuscular volume (MCV)Ordered By: Guilherme Butt on 11-24-2022 MCV (RBC) [Entitic vol] 96.3 fL 80-94 [facility] Hematocrit Auto (Bld) [Volum e fraction]Ordered By: Guilherme Butt on 11-24-2022 Hematocrit (Bld) [Volume fraction] 39.1 % 40-54 [facility] Laboratory - Chemistry and C hemistry - challengeOrdered By: Guilherme Butt on 11-24-2022 CO2 [Moles/Vol] 26.0 mmol/L 21.0-32.0 [facility] Urea nitrogen/Creatinine [Mass ratio] 34.3 mg/mg 10-20 [facility] Laboratory - Hematology and Cell countsOrdered By: Guilherme Butt on 11-24-2022 Erythrocyte distribution width (RBC) [Entitic vol] 45.0 fL 35.1-43.9 [facility] Erythrocyte distribution width (RBC) [Ratio] 12.7 % 11.6-14.6 [facility] MCH (RBC) [Entitic mass] 32.0 pg 27.0-32.0 [facility] MCHC Auto (RBC) [Mass/Vol]Or dered By: Guilherme Butt on 11-24-2022 MCHC (RBC) [Mass/Vol] 33.2 g/dL 32-36 [facility] No Panel InformationOrdered By: Guilherme Butt on 11-24-2022 Estimated GFR (MDRD) Amer 97 mL/min >60 [facility] Comment on above: GFR Calc Estimated GFR (MDRD) Non-Af Amer 80 mL/min >60 [facility] Comment on above: Non- GFR Calc Platelets bldOrdered By: Jamaal Butt on 11-24-2022 Platelets (Bld) [#/Vol] 188 10*3/uL 150-450 [facility] Serum or plasma calcium farshad urement (mass/volume)Ordered By: Guilherme Butt on 11-24-2022 Calcium [Mass/Vol] 8.7 mg/dL 8.5-10.1 [facility] Serum or plasma creatinine m easurement (mass/volume)Ordered By: Guilherme Butt on 11-24-2022 Creatinine [Mass/Vol] 0.96 mg/dL 0.70-1.30 [facility] Comment on above: The validity of the calculated GFR & GFRAA in patients over 70 years has not been determined. Clinical correlation is essential. Serum or plasma urea nitroge n measurement (mass/volume)Ordered By: Guilherme Butt on 11-24-2022 Urea nitrogen [Mass/Vol] 33 mg/dL 7-18 [facility] Thin prep Papanicolaou smear with manual screeningOrdered By: Guilherme Butt on 11-24-2022 Thin prep Papanicolaou smear with manual screening 5 5-15 [facility] Basophil percentageOrdered B y: Cecy Gray on 10-20-2022 Chloride [Moles/Vol] 104 mmol/L 98-107 [facility] Glucose [Mass/Vol] 95 mg/dL 74-106 [facility] Potassium [Moles/Vol] 4.3 mmol/L 3.5-5.1 [facility] Sodium [Moles/Vol] 138 mmol/L 136-145 [facility] WBC (Bld) [#/Vol] 4.7 10*3/uL 4.4-11.0 [facility] Blood erythrocytes count (nu mber/volume)Ordered By: Cecy Gray on 10-20-2022 RBC (Bld) [#/Vol] 4.48 10*6/uL 4.6-6.2 [facility] Blood hemoglobin measurement (mass/volume)Ordered By: Cecy Gray on 10-20-2022 Hemoglobin (Bld) [Mass/Vol] 14.2 g/dL 13.0-16.5 [facility] Blood platelet mean volumeOr dered By: Cecy Gray on 10-20-2022 Platelet mean volume (Bld) [Entitic vol] 9.1 fL 6.2-12.0 [facility] Determination of erythrocyte mean corpuscular volume (MCV)Ordered By: Cecy Gray on 10-20-2022 MCV (RBC) [Entitic vol] 97.1 fL 80-94 [facility] Hematocrit Auto (Bld) [Volum e fraction]Ordered By: Cecy Gray on 10-20-2022 Hematocrit (Bld) [Volume fraction] 43.5 % 40-54 [facility] Laboratory - Chemistry and C hemistry - challengeOrdered By: Cecy Gray on 10-20-2022 CO2 [Moles/Vol] 28.0 mmol/L 21.0-32.0 [facility] Urea nitrogen/Creatinine [Mass ratio] 28.2 mg/mg 10-20 [facility] Laboratory - Hematology and Cell countsOrdered By: Cecy Gray on 10-20-2022 Erythrocyte distribution width (RBC) [Entitic vol] 44.9 fL 35.1-43.9 [facility] Erythrocyte distribution width (RBC) [Ratio] 12.5 % 11.6-14.6 [facility] MCH (RBC) [Entitic mass] 31.7 pg 27.0-32.0 [facility] MCHC Auto (RBC) [Mass/Vol]Or dered By: Cecy Gray on 10-20-2022 MCHC (RBC) [Mass/Vol] 32.6 g/dL 32-36 [facility] No Panel InformationOrdered By: Cecy Gray on 10-20-2022 Estimated GFR (MDRD) Amer 98 mL/min >60 [facility] Comment on above: GFR Calc Estimated GFR (MDRD) Non-Af Amer 81 mL/min >60 [facility] Comment on above: Non- GFR Calc Platelets bldOrdered By: Reinier Gray on 10-20-2022 Platelets (Bld) [#/Vol] 204 10*3/uL 150-450 [facility] Serum or plasma calcium farshad urement (mass/volume)Ordered By: Cecy Gray on 10-20-2022 Calcium [Mass/Vol] 8.7 mg/dL 8.5-10.1 [facility] Serum or plasma creatinine m easurement (mass/volume)Ordered By: Cecy Gray on 10-20-2022 Creatinine [Mass/Vol] 0.96 mg/dL 0.70-1.30 [facility] Comment on above: The validity of the calculated GFR & GFRAA in patients over 70 years has not been determined. Clinical correlation is essential. Serum or plasma urea nitroge n measurement (mass/volume)Ordered By: Cecy Gray on 10-20-2022 Urea nitrogen [Mass/Vol] 27 mg/dL 7-18 [facility] Thin prep Papanicolaou smear with manual screeningOrdered By: Cecy Gray on 10-20-2022 Thin prep Papanicolaou smear with manual screening 6 5-15 [facility] Basophil percentageOrdered B y: Cecy Gray on 09-22-2022 Chloride [Moles/Vol] 106 mmol/L 98-107 [facility] Glucose [Mass/Vol] 86 mg/dL 74-106 [facility] Potassium [Moles/Vol] 4.4 mmol/L 3.5-5.1 [facility] Sodium [Moles/Vol] 141 mmol/L 136-145 [facility] WBC (Bld) [#/Vol] 5.1 10*3/uL 4.4-11.0 [facility] Blood erythrocytes count (nu mber/volume)Ordered By: Cecy Gray on 09-22-2022 RBC (Bld) [#/Vol] 4.21 10*6/uL 4.6-6.2 [facility] Blood hemoglobin measurement (mass/volume)Ordered By: Cecy Gray on 09-22-2022 Hemoglobin (Bld) [Mass/Vol] 13.4 g/dL 13.0-16.5 [facility] Blood platelet mean volumeOr dered By: Cecy Gray on 09-22-2022 Platelet mean volume (Bld) [Entitic vol] 9.3 fL 6.2-12.0 [facility] Determination of erythrocyte mean corpuscular volume (MCV)Ordered By: Cecy Gray on 09-22-2022 MCV (RBC) [Entitic vol] 97.4 fL 80-94 [facility] Hematocrit Auto (Bld) [Volum e fraction]Ordered By: Cecy Gray on 09-22-2022 Hematocrit (Bld) [Volume fraction] 41.0 % 40-54 [facility] Laboratory - Chemistry and C hemistry - challengeOrdered By: Cecy Gray on 09-22-2022 CO2 [Moles/Vol] 31.0 mmol/L 21.0-32.0 [facility] Urea nitrogen/Creatinine [Mass ratio] 27.7 mg/mg 10-20 [facility] Laboratory - Hematology and Cell countsOrdered By: Cecy Gray on 09-22-2022 Erythrocyte distribution width (RBC) [Entitic vol] 43.7 fL 35.1-43.9 [facility] Erythrocyte distribution width (RBC) [Ratio] 12.3 % 11.6-14.6 [facility] MCH (RBC) [Entitic mass] 31.8 pg 27.0-32.0 [facility] MCHC Auto (RBC) [Mass/Vol]Or dered By: Cecy Gray on 09-22-2022 MCHC (RBC) [Mass/Vol] 32.7 g/dL 32-36 [facility] No Panel InformationOrdered By: Cecy Gray on 09-22-2022 Estimated GFR (MDRD) Amer 105 mL/min >60 [facility] Comment on above: GFR Calc Estimated GFR (MDRD) Non-Af Amer 87 mL/min >60 [facility] Comment on above: Non- GFR Calc Platelets bldOrdered By: Reinier Gray on 09-22-2022 Platelets (Bld) [#/Vol] 187 10*3/uL 150-450 [facility] Serum or plasma calcium farshad urement (mass/volume)Ordered By: Cecy Gray on 09-22-2022 Calcium [Mass/Vol] 8.8 mg/dL 8.5-10.1 [facility] Serum or plasma creatinine m easurement (mass/volume)Ordered By: Cecy Gray on 09-22-2022 Creatinine [Mass/Vol] 0.90 mg/dL 0.70-1.30 [facility] Comment on above: The validity of the calculated GFR & GFRAA in patients over 70 years has not been determined. Clinical correlation is essential. Serum or plasma urea nitroge n measurement (mass/volume)Ordered By: Cecy Gray on 09-22-2022 Urea nitrogen [Mass/Vol] 25 mg/dL 7-18 [facility] Thin prep Papanicolaou smear with manual screeningOrdered By: Cecy Gray on 09-22-2022 Thin prep Papanicolaou smear with manual screening 4 5-15 [facility] Basophil percentageOrdered B y: Guilherme Butt on 08-25-2022 Chloride [Moles/Vol] 106 mmol/L 98-107 [facility] Glucose [Mass/Vol] 90 mg/dL 74-106 [facility] Potassium [Moles/Vol] 4.3 mmol/L 3.5-5.1 [facility] Sodium [Moles/Vol] 139 mmol/L 136-145 [facility] WBC (Bld) [#/Vol] 4.4 10*3/uL 4.4-11.0 [facility] Blood erythrocytes count (nu mber/volume)Ordered By: Guilherme Butt on 08-25-2022 RBC (Bld) [#/Vol] 4.15 10*6/uL 4.6-6.2 [facility] Blood hemoglobin measurement (mass/volume)Ordered By: Guilherme Butt on 08-25-2022 Hemoglobin (Bld) [Mass/Vol] 13.2 g/dL 13.0-16.5 [facility] Blood platelet mean volumeOr dered By: Guilherme Butt on 08-25-2022 Platelet mean volume (Bld) [Entitic vol] 9.3 fL 6.2-12.0 [facility] Determination of erythrocyte mean corpuscular volume (MCV)Ordered By: Guilherme Butt on 08-25-2022 MCV (RBC) [Entitic vol] 97.6 fL 80-94 [facility] Hematocrit Auto (Bld) [Volum e fraction]Ordered By: Guilherme Butt on 08-25-2022 Hematocrit (Bld) [Volume fraction] 40.5 % 40-54 [facility] Laboratory - Chemistry and C hemistry - challengeOrdered By: Guilherme Butt on 08-25-2022 CO2 [Moles/Vol] 29.0 mmol/L 21.0-32.0 [facility] Cobalamin (Vitamin B12) [Mass/Vol] 239 pg/mL 211-911 [facility] Urea nitrogen/Creatinine [Mass ratio] 25.6 mg/mg 10-20 [facility] Laboratory - Hematology and Cell countsOrdered By: Guilherme Butt on 08-25-2022 Erythrocyte distribution width (RBC) [Entitic vol] 45.1 fL 35.1-43.9 [facility] Erythrocyte distribution width (RBC) [Ratio] 12.5 % 11.6-14.6 [facility] MCH (RBC) [Entitic mass] 31.8 pg 27.0-32.0 [facility] MCHC Auto (RBC) [Mass/Vol]Or dered By: Guilherme Butt on 08-25-2022 MCHC (RBC) [Mass/Vol] 32.6 g/dL 32-36 [facility] No Panel InformationOrdered By: Guilherme Butt on 08-25-2022 Estimated GFR (MDRD) Amer 78 mL/min >60 [facility] Comment on above: GFR Calc Estimated GFR (MDRD) Non-Af Amer 64 mL/min >60 [facility] Comment on above: Non- GFR Calc Platelets bldOrdered By: Jamaal Butt on 08-25-2022 Platelets (Bld) [#/Vol] 176 10*3/uL 150-450 [facility] Serum or plasma calcium farshad urement (mass/volume)Ordered By: Guilherme Butt on 08-25-2022 Calcium [Mass/Vol] 8.7 mg/dL 8.5-10.1 [facility] Serum or plasma creatinine m easurement (mass/volume)Ordered By: Guilherme Butt on 08-25-2022 Creatinine [Mass/Vol] 1.17 mg/dL 0.70-1.30 [facility] Comment on above: The validity of the calculated GFR & GFRAA in patients over 70 years has not been determined. Clinical correlation is essential. Serum or plasma urea nitroge n measurement (mass/volume)Ordered By: Guilherme Butt on 08-25-2022 Urea nitrogen [Mass/Vol] 30 mg/dL 7-18 [facility] Thin prep Papanicolaou smear with manual screeningOrdered By: Guilherme Butt on 08-25-2022 Thin prep Papanicolaou smear with manual screening 4 5-15 [facility] Absolute lymphocyte countOrd ered By: Guilherme Butt on 07-21-2022 Lymphocytes Auto (Unsp spec) [#/Vol] 1.11 10*3/uL 0.83-4.51 [facility] Basophil percentageOrdered B y: Guilherme Butt on 07-21-2022 Basophils/100 WBC (Bld) 0.5 % 0-1 [facility] Chloride [Moles/Vol] 106 mmol/L 98-107 [facility] Eosinophils/100 WBC (Bld) 3.6 % 0-5 [facility] Glucose [Mass/Vol] 95 mg/dL 74-106 [facility] Neutrophils (Bld) [#/Vol] 2.5 10*3/uL 2.0-7.7 [facility] Neutrophils/100 WBC (Bld) 59.1 % 47-70 [facility] Potassium [Moles/Vol] 4.2 mmol/L 3.5-5.1 [facility] Sodium [Moles/Vol] 142 mmol/L 136-145 [facility] WBC (Bld) [#/Vol] 4.2 10*3/uL 4.4-11.0 [facility] Blood erythrocytes count (nu mber/volume)Ordered By: Guilherme Butt on 07-21-2022 RBC (Bld) [#/Vol] 4.10 10*6/uL 4.6-6.2 [facility] Blood hemoglobin measurement (mass/volume)Ordered By: Guilherme Butt on 07-21-2022 Hemoglobin (Bld) [Mass/Vol] 13.4 g/dL 13.0-16.5 [facility] Blood lymphocytes/100 leukoc ytesOrdered By: Guilherme Butt on 07-21-2022 Lymphocytes/100 WBC (Bld) 26.7 % 19-41 [facility] Blood monocytes/100 leukocyt esOrdered By: Guilherme Butt on 07-21-2022 Monocytes/100 WBC (Bld) 9.6 % 0-10 [facility] Blood platelet mean volumeOr dered By: Guilherme Butt on 07-21-2022 Platelet mean volume (Bld) [Entitic vol] 9.3 fL 6.2-12.0 [facility] Determination of erythrocyte mean corpuscular volume (MCV)Ordered By: Guilherme Butt on 07-21-2022 MCV (RBC) [Entitic vol] 95.1 fL 80-94 [facility] Hematocrit Auto (Bld) [Volum e fraction]Ordered By: Guilherme Butt on 07-21-2022 Hematocrit (Bld) [Volume fraction] 39.0 % 40-54 [facility] Laboratory - Chemistry and C hemistry - challengeOrdered By: Guilherme Butt on 07-21-2022 CO2 [Moles/Vol] 28.0 mmol/L 21.0-32.0 [facility] Urea nitrogen/Creatinine [Mass ratio] 30.0 mg/mg 10-20 [facility] Laboratory - Hematology and Cell countsOrdered By: Guilherme Butt on 07-21-2022 Erythrocyte distribution width (RBC) [Entitic vol] 44.6 fL 35.1-43.9 [facility] Erythrocyte distribution width (RBC) [Ratio] 12.8 % 11.6-14.6 [facility] Immature granulocytes/100 WBC (Bld) 0.500 % 0.0-0.9 [facility] Comment on above: IG% - Immature Granu locytes (promyelocytes, myelocytes and metamyelocytes) > 1% indicates that a LEFT SHIFT is Present. MCH (RBC) [Entitic mass] 32.7 pg 27.0-32.0 [facility] Nucleated RBC/100 WBC (Bld) [Ratio] 0 % 0-5 [facility] MCHC Auto (RBC) [Mass/Vol]Or dered By: Guilherme Butt on 07-21-2022 MCHC (RBC) [Mass/Vol] 34.4 g/dL 32-36 [facility] No Panel InformationOrdered By: Guilherme Butt on 07-21-2022 Estimated GFR (MDRD) Amer 101 mL/min >60 [facility] Comment on above: GFR Calc Estimated GFR (MDRD) Non-Af Amer 84 mL/min >60 [facility] Comment on above: Non- GFR Calc Platelets bldOrdered By: Jamaal Butt on 07-21-2022 Platelets (Bld) [#/Vol] 155 10*3/uL 150-450 [facility] Serum or plasma calcium farshad urement (mass/volume)Ordered By: Guilherme Butt on 07-21-2022 Calcium [Mass/Vol] 8.7 mg/dL 8.5-10.1 [facility] Serum or plasma creatinine m easurement (mass/volume)Ordered By: Guilherme Butt on 07-21-2022 Creatinine [Mass/Vol] 0.93 mg/dL 0.70-1.30 [facility] Comment on above: The validity of the calculated GFR & GFRAA in patients over 70 years has not been determined. Clinical correlation is essential. Serum or plasma urea nitroge n measurement (mass/volume)Ordered By: Guilherme Butt on 07-21-2022 Urea nitrogen [Mass/Vol] 28 mg/dL 7-18 [facility] Thin prep Papanicolaou smear with manual screeningOrdered By: Guilherme Butt on 07-21-2022 Thin prep Papanicolaou smear with manual screening 8 5-15 [facility] Basophil percentageOrdered B y: [place] Living on 06-23-2022 Chloride [Moles/Vol] 105 mmol/L 98-107 [facility] Glucose [Mass/Vol] 100 mg/dL 74-106 [facility] Comment on above: Fasting Glucose resu lt from 100 to 125 mg/dL suggests IMPAIRED HOMEOSTASIS per A.D.A. criteria. Potassium [Moles/Vol] 4.5 mmol/L 3.5-5.1 [facility] Sodium [Moles/Vol] 142 mmol/L 136-145 [facility] WBC (Bld) [#/Vol] 6.2 10*3/uL 4.4-11.0 [facility] Blood erythrocytes count (nu mber/volume)Ordered By: Livonia Living on 06-23-2022 RBC (Bld) [#/Vol] 4.28 10*6/uL 4.6-6.2 [facility] Blood hemoglobin measurement (mass/volume)Ordered By: Livonia Living on 06-23-2022 Hemoglobin (Bld) [Mass/Vol] 13.6 g/dL 13.0-16.5 [facility] Blood platelet mean volumeOr dered By: Liv[place] Living on 06-23-2022 Platelet mean volume (Bld) [Entitic vol] 9.3 fL 6.2-12.0 [facility] Determination of erythrocyte mean corpuscular volume (MCV)Ordered By: [facility] on 06-23-2022 MCV (RBC) [Entitic vol] 97.9 fL 80-94 [facility] Hematocrit Auto (Bld) [Volum e fraction]Ordered By: Livonia Living on 06-23-2022 Hematocrit (Bld) [Volume fraction] 41.9 % 40-54 [facility] Laboratory - Chemistry and C hemistry - challengeOrdered By: [facility] on 06-23-2022 CO2 [Moles/Vol] 32.0 mmol/L 21.0-32.0 [facility] Urea nitrogen/Creatinine [Mass ratio] 33.0 mg/mg 10-20 [facility] Laboratory - Hematology and Cell countsOrdered By: [facility] on 06-23-2022 Erythrocyte distribution width (RBC) [Entitic vol] 45.8 fL 35.1-43.9 [facility] Erythrocyte distribution width (RBC) [Ratio] 12.9 % 11.6-14.6 [facility] MCH (RBC) [Entitic mass] 31.8 pg 27.0-32.0 [facility] MCHC Auto (RBC) [Mass/Vol]Or dered By: [facility] on 06-23-2022 MCHC (RBC) [Mass/Vol] 32.5 g/dL 32-36 [facility] No Panel InformationOrdered By: Livonia Living on 06-23-2022 Estimated GFR (MDRD) Amer 84 mL/min >60 [facility] Comment on above: GFR Calc Estimated GFR (MDRD) Non-Af Amer 70 mL/min >60 [facility] Comment on above: Non- GFR Calc Platelets bldOrdered By: Sander parkinson Living on 06-23-2022 Platelets (Bld) [#/Vol] 183 10*3/uL 150-450 [facility] Serum or plasma calcium farshad urement (mass/volume)Ordered By: [facility] on 06-23-2022 Calcium [Mass/Vol] 9.2 mg/dL 8.5-10.1 [facility] Serum or plasma creatinine m easurement (mass/volume)Ordered By: [facility] on 06-23-2022 Creatinine [Mass/Vol] 1.09 mg/dL 0.70-1.30 [facility] Comment on above: The validity of the calculated GFR & GFRAA in patients over 70 years has not been determined. Clinical correlation is essential. Serum or plasma urea nitroge n measurement (mass/volume)Ordered By: [facility] on 06-23-2022 Urea nitrogen [Mass/Vol] 36 mg/dL 7-18 [facility] Thin prep Papanicolaou smear with manual screeningOrdered By: [facility] on 06-23-2022 Thin prep Papanicolaou smear with manual screening 5 5-15 [facility] Basophil percentageOrdered B y: Maikel Mosquera on 05-26-2022 Chloride [Moles/Vol] 106 mmol/L 98-107 [facility] Glucose [Mass/Vol] 100 mg/dL 74-106 [facility] Comment on above: Fasting Glucose resu lt from 100 to 125 mg/dL suggests IMPAIRED HOMEOSTASIS per A.D.A. criteria. Potassium [Moles/Vol] 4.8 mmol/L 3.5-5.1 [facility] Sodium [Moles/Vol] 141 mmol/L 136-145 [facility] WBC (Bld) [#/Vol] 5.1 10*3/uL 4.4-11.0 [facility] Blood erythrocytes count (nu mber/volume)Ordered By: Maikel Mosquera on 05-26-2022 RBC (Bld) [#/Vol] 4.34 10*6/uL 4.6-6.2 [facility] Blood hemoglobin measurement (mass/volume)Ordered By: Maikel Mosquera on 05-26-2022 Hemoglobin (Bld) [Mass/Vol] 13.8 g/dL 13.0-16.5 [facility] Blood platelet mean volumeOr dered By: Maikel Mosquera on 05-26-2022 Platelet mean volume (Bld) [Entitic vol] 9.5 fL 6.2-12.0 [facility] Determination of erythrocyte mean corpuscular volume (MCV)Ordered By: Maikel Mosquera on 05-26-2022 MCV (RBC) [Entitic vol] 96.3 fL 80-94 [facility] Hematocrit Auto (Bld) [Volum e fraction]Ordered By: Maikel Mosquera on 05-26-2022 Hematocrit (Bld) [Volume fraction] 41.8 % 40-54 [facility] Laboratory - Chemistry and C hemistry - challengeOrdered By: Maikel Mosquera on 05-26-2022 CO2 [Moles/Vol] 30.0 mmol/L 21.0-32.0 [facility] Urea nitrogen/Creatinine [Mass ratio] 33.7 mg/mg 10-20 [facility] Laboratory - Hematology and Cell countsOrdered By: Maikel Mosquera on 05-26-2022 Erythrocyte distribution width (RBC) [Entitic vol] 44.0 fL 35.1-43.9 [facility] Erythrocyte distribution width (RBC) [Ratio] 12.5 % 11.6-14.6 [facility] MCH (RBC) [Entitic mass] 31.8 pg 27.0-32.0 [facility] MCHC Auto (RBC) [Mass/Vol]Or dered By: Maikel Mosquera on 05-26-2022 MCHC (RBC) [Mass/Vol] 33.0 g/dL 32-36 [facility] No Panel InformationOrdered By: Maikel Mosquera on 05-26-2022 Estimated GFR (MDRD) Amer 89 mL/min >60 [facility] Comment on above: GFR Calc Estimated GFR (MDRD) Non-Af Amer 74 mL/min >60 [facility] Comment on above: Non- GFR Calc Platelets bldOrdered By: Chance Mosquera on 05-26-2022 Platelets (Bld) [#/Vol] 185 10*3/uL 150-450 [facility] Serum or plasma calcium farshad urement (mass/volume)Ordered By: Maikel Mosquera on 05-26-2022 Calcium [Mass/Vol] 9.0 mg/dL 8.5-10.1 [facility] Serum or plasma creatinine m easurement (mass/volume)Ordered By: Maikel Mosquera on 05-26-2022 Creatinine [Mass/Vol] 1.04 mg/dL 0.70-1.30 [facility] Comment on above: The validity of the calculated GFR & GFRAA in patients over 70 years has not been determined. Clinical correlation is essential. Serum or plasma urea nitroge n measurement (mass/volume)Ordered By: Maikel Mosquera on 05-26-2022 Urea nitrogen [Mass/Vol] 35 mg/dL 7-18 [facility] Thin prep Papanicolaou smear with manual screeningOrdered By: Maikel Mosquera on 05-26-2022 Thin prep Papanicolaou smear with manual screening 5 5-15 [facility] Basophil percentageOrdered B y: Maikel Mosquera on 04-21-2022 Chloride [Moles/Vol] 108 mmol/L 98-107 [facility] Glucose [Mass/Vol] 104 mg/dL 74-106 [facility] Comment on above: Fasting Glucose resu lt from 100 to 125 mg/dL suggests IMPAIRED HOMEOSTASIS per A.D.A. criteria. Potassium [Moles/Vol] 4.3 mmol/L 3.5-5.1 [facility] Sodium [Moles/Vol] 142 mmol/L 136-145 [facility] WBC (Bld) [#/Vol] 4.4 10*3/uL 4.4-11.0 [facility] Blood erythrocytes count (nu mber/volume)Ordered By: Maikel Mosquera on 04-21-2022 RBC (Bld) [#/Vol] 4.18 10*6/uL 4.6-6.2 [facility] Blood hemoglobin measurement (mass/volume)Ordered By: Maikel Mosquera on 04-21-2022 Hemoglobin (Bld) [Mass/Vol] 13.2 g/dL 13.0-16.5 [facility] Blood platelet mean volumeOr dered By: Maikel Mosquera on 04-21-2022 Platelet mean volume (Bld) [Entitic vol] 9.6 fL 6.2-12.0 [facility] Determination of erythrocyte mean corpuscular volume (MCV)Ordered By: Maikel Mosquera on 04-21-2022 MCV (RBC) [Entitic vol] 97.1 fL 80-94 [facility] Hematocrit Auto (Bld) [Volum e fraction]Ordered By: Maikel Mosquera on 04-21-2022 Hematocrit (Bld) [Volume fraction] 40.6 % 40-54 [facility] Laboratory - Chemistry and C hemistry - challengeOrdered By: Maikel Mosquera on 04-21-2022 CO2 [Moles/Vol] 30.0 mmol/L 21.0-32.0 [facility] Urea nitrogen/Creatinine [Mass ratio] 33.0 mg/mg 10-20 [facility] Laboratory - Hematology and Cell countsOrdered By: Maikel Mosquera on 04-21-2022 Erythrocyte distribution width (RBC) [Entitic vol] 46.2 fL 35.1-43.9 [facility] Erythrocyte distribution width (RBC) [Ratio] 12.9 % 11.6-14.6 [facility] MCH (RBC) [Entitic mass] 31.6 pg 27.0-32.0 [facility] MCHC Auto (RBC) [Mass/Vol]Or dered By: Maikel Mosquera on 04-21-2022 MCHC (RBC) [Mass/Vol] 32.5 g/dL 32-36 [facility] No Panel InformationOrdered By: Maikel Mosquera on 04-21-2022 Estimated GFR (MDRD) Amer 90 mL/min >60 [facility] Comment on above: GFR Calc Estimated GFR (MDRD) Non-Af Amer 75 mL/min >60 [facility] Comment on above: Non- GFR Calc Platelets bldOrdered By: Chance Mosquera on 04-21-2022 Platelets (Bld) [#/Vol] 177 10*3/uL 150-450 [facility] Serum or plasma calcium farshad urement (mass/volume)Ordered By: Maikel Mosquera on 04-21-2022 Calcium [Mass/Vol] 9.1 mg/dL 8.5-10.1 [facility] Serum or plasma creatinine m easurement (mass/volume)Ordered By: Maikel Mosquera on 04-21-2022 Creatinine [Mass/Vol] 1.03 mg/dL 0.70-1.30 [facility] Comment on above: The validity of the calculated GFR & GFRAA in patients over 70 years has not been determined. Clinical correlation is essential. Serum or plasma urea nitroge n measurement (mass/volume)Ordered By: Maikel Mosquera on 04-21-2022 Urea nitrogen [Mass/Vol] 34 mg/dL 7-18 [facility] Thin prep Papanicolaou smear with manual screeningOrdered By: Maikel Mosquera on 04-21-2022 Thin prep Papanicolaou smear with manual screening 4 5-15 [facility] Absolute lymphocyte countOrd ered By: Dr. Sanchez on 04-03-2022 Lymphocytes Auto (Unsp spec) [#/Vol] 1.15 10*3/uL 0.83-4.51 [facility] Basophil percentageOrdered B y: Dr. Sanchez on 04-03-2022 Basophils/100 WBC (Bld) 0.4 % 0-1 [facility] Chloride [Moles/Vol] 106 mmol/L 98-107 [facility] Eosinophils/100 WBC (Bld) 3.3 % 0-5 [facility] Glucose [Mass/Vol] 140 mg/dL 74-106 [facility] Comment on above: Fasting Glucose resu lt greater than or equal to 126 mg/dL suggests DIABETES MELLITUS per A.D.A. criteria. Neutrophils (Bld) [#/Vol] 2.9 10*3/uL 2.0-7.7 [facility] Neutrophils/100 WBC (Bld) 63.1 % 47-70 [facility] Potassium [Moles/Vol] 4.2 mmol/L 3.5-5.1 [facility] Sodium [Moles/Vol] 142 mmol/L 136-145 [facility] WBC (Bld) [#/Vol] 4.6 10*3/uL 4.4-11.0 [facility] Blood erythrocytes count (nu mber/volume)Ordered By: Dr. Sanchez on 04-03-2022 RBC (Bld) [#/Vol] 4.45 10*6/uL 4.6-6.2 [facility] Blood hemoglobin measurement (mass/volume)Ordered By: Dr. Sanchez on 04-03-2022 Hemoglobin (Bld) [Mass/Vol] 14.1 g/dL 13.0-16.5 [facility] Blood lymphocytes/100 leukoc ytesOrdered By: Dr. Sanchez on 04-03-2022 Lymphocytes/100 WBC (Bld) 25.3 % 19-41 [facility] Blood monocytes/100 leukocyt esOrdered By: Dr. Sanchez on 04-03-2022 Monocytes/100 WBC (Bld) 7.7 % 0-10 [facility] Blood platelet mean volumeOr dered By: Dr. Sanchez on 04-03-2022 Platelet mean volume (Bld) [Entitic vol] 9.3 fL 6.2-12.0 [facility] Determination of erythrocyte mean corpuscular volume (MCV)Ordered By: Dr. Sanchez on 04-03-2022 MCV (RBC) [Entitic vol] 95.5 fL 80-94 [facility] Hematocrit Auto (Bld) [Volum e fraction]Ordered By: Dr. Sanchez on 04-03-2022 Hematocrit (Bld) [Volume fraction] 42.5 % 40-54 [facility] Laboratory - Chemistry and C hemistry - challengeOrdered By: Dr. Sanchez on 04-03-2022 CO2 [Moles/Vol] 31.0 mmol/L 21.0-32.0 [facility] Urea nitrogen/Creatinine [Mass ratio] 30.7 mg/mg 10-20 [facility] Laboratory - Hematology and Cell countsOrdered By: Dr. Sanchez on 04-03-2022 Erythrocyte distribution width (RBC) [Entitic vol] 45.9 fL 35.1-43.9 [facility] Erythrocyte distribution width (RBC) [Ratio] 12.9 % 11.6-14.6 [facility] Immature granulocytes/100 WBC (Bld) 0.200 % 0.0-0.9 [facility] Comment on above: IG% - Immature Granu locytes (promyelocytes, myelocytes and metamyelocytes) > 1% indicates that a LEFT SHIFT is Present. MCH (RBC) [Entitic mass] 31.7 pg 27.0-32.0 [facility] Nucleated RBC/100 WBC (Bld) [Ratio] 0 % 0-5 [facility] MCHC Auto (RBC) [Mass/Vol]Or dered By: Dr. Sanchez on 04-03-2022 MCHC (RBC) [Mass/Vol] 33.2 g/dL 32-36 [facility] No Panel InformationOrdered By: Dr. Sanchez on 04-03-2022 Troponin I High Sensitivity 7 pg/mL 3.0-78.0 [facility] Comment on above: Please Note: [place] t Units and Gender Specific Reference Ranges. For more information see Policy Stat Procedure [facility] High Sensitivity Troponin (TNIH) and attachments. Estimated Creatinine Clearance Calc 70.39 ml/min [facility] Estimated GFR (MDRD) Amer 96 mL/min >60 [facility] Comment on above: GFR Calc Estimated GFR (MDRD) Non-Af Amer 79 mL/min >60 [facility] Comment on above: Non- GFR Calc Platelets bldOrdered By: Dr. Sanchez on 04-03-2022 Platelets (Bld) [#/Vol] 173 10*3/uL 150-450 [facility] Serum or plasma calcium farshad urement (mass/volume)Ordered By: Dr. Sanchez on 04-03-2022 Calcium [Mass/Vol] 9.1 mg/dL 8.5-10.1 [facility] Serum or plasma creatinine m easurement (mass/volume)Ordered By: Dr. Sanchez on 04-03-2022 Creatinine [Mass/Vol] 0.98 mg/dL 0.70-1.30 [facility] Comment on above: The validity of the calculated GFR & GFRAA in patients over 70 years has not been determined. Clinical correlation is essential. Serum or plasma urea nitroge n measurement (mass/volume)Ordered By: Dr. Sanchez on 04-03-2022 Urea nitrogen [Mass/Vol] 30 mg/dL 7-18 [facility] Thin prep Papanicolaou smear with manual screeningOrdered By: Dr. Sanchez on 04-03-2022 Thin prep Papanicolaou smear with manual screening 5 5-15 [facility] Basophil percentageOrdered B y: Maikel Mosquera on 03-24-2022 Chloride [Moles/Vol] 105 mmol/L 98-107 [facility] Glucose [Mass/Vol] 85 mg/dL 74-106 [facility] Potassium [Moles/Vol] 4.7 mmol/L 3.5-5.1 [facility] Sodium [Moles/Vol] 140 mmol/L 136-145 [facility] WBC (Bld) [#/Vol] 4.9 10*3/uL 4.4-11.0 [facility] Blood erythrocytes count (nu mber/volume)Ordered By: Maikel Mosquera on 03-24-2022 RBC (Bld) [#/Vol] 4.14 10*6/uL 4.6-6.2 [facility] Blood hemoglobin measurement (mass/volume)Ordered By: Maikel Mosquera on 03-24-2022 Hemoglobin (Bld) [Mass/Vol] 13.0 g/dL 13.0-16.5 [facility] Blood platelet mean volumeOr dered By: Maikel Mosquera on 03-24-2022 Platelet mean volume (Bld) [Entitic vol] 9.5 fL 6.2-12.0 [facility] Determination of erythrocyte mean corpuscular volume (MCV)Ordered By: Maikel Mosquera on 03-24-2022 MCV (RBC) [Entitic vol] 94.9 fL 80-94 [facility] Hematocrit Auto (Bld) [Volum e fraction]Ordered By: Maikel Mosquera on 03-24-2022 Hematocrit (Bld) [Volume fraction] 39.3 % 40-54 [facility] Laboratory - Chemistry and C hemistry - challengeOrdered By: Maikel Mosquera on 03-24-2022 CO2 [Moles/Vol] 30.0 mmol/L 21.0-32.0 [facility] Urea nitrogen/Creatinine [Mass ratio] 29.8 mg/mg 10-20 [facility] Laboratory - Hematology and Cell countsOrdered By: Maikel Mosquera on 03-24-2022 Erythrocyte distribution width (RBC) [Entitic vol] 45.6 fL 35.1-43.9 [facility] Erythrocyte distribution width (RBC) [Ratio] 13.1 % 11.6-14.6 [facility] MCH (RBC) [Entitic mass] 31.4 pg 27.0-32.0 [facility] MCHC Auto (RBC) [Mass/Vol]Or dered By: Maikel Mosquera on 03-24-2022 MCHC (RBC) [Mass/Vol] 33.1 g/dL 32-36 [facility] No Panel InformationOrdered By: Maikel Mosquera on 03-24-2022 Estimated GFR (MDRD) Amer 89 mL/min >60 [facility] Comment on above: GFR Calc Estimated GFR (MDRD) Non-Af Amer 74 mL/min >60 [facility] Comment on above: Non- GFR Calc Platelets bldOrdered By: Chance Mosquera on 03-24-2022 Platelets (Bld) [#/Vol] 169 10*3/uL 150-450 [facility] Serum or plasma calcium farshad urement (mass/volume)Ordered By: Maikel Mosquera on 03-24-2022 Calcium [Mass/Vol] 8.8 mg/dL 8.5-10.1 [facility] Serum or plasma creatinine m easurement (mass/volume)Ordered By: Maikel Mosquera on 03-24-2022 Creatinine [Mass/Vol] 1.04 mg/dL 0.70-1.30 [facility] Comment on above: The validity of the calculated GFR & GFRAA in patients over 70 years has not been determined. Clinical correlation is essential. Serum or plasma urea nitroge n measurement (mass/volume)Ordered By: Maikel Mosquera on 03-24-2022 Urea nitrogen [Mass/Vol] 31 mg/dL 7-18 [facility] Thin prep Papanicolaou smear with manual screeningOrdered By: Maikel Mosquera on 03-24-2022 Thin prep Papanicolaou smear with manual screening 5 5-15 [facility] Basophil percentageOrdered B y: Maikel Mosquera on 02-24-2022 Chloride [Moles/Vol] 107 mmol/L 98-107 [facility] Glucose [Mass/Vol] 87 mg/dL 74-106 [facility] Potassium [Moles/Vol] 4.8 mmol/L 3.5-5.1 [facility] Sodium [Moles/Vol] 141 mmol/L 136-145 [facility] WBC (Bld) [#/Vol] 5.2 10*3/uL 4.4-11.0 [facility] Blood erythrocytes count (nu mber/volume)Ordered By: Maikel Mosquera on 02-24-2022 RBC (Bld) [#/Vol] 4.39 10*6/uL 4.6-6.2 [facility] Blood hemoglobin measurement (mass/volume)Ordered By: Maikel Mosquera on 02-24-2022 Hemoglobin (Bld) [Mass/Vol] 14.3 g/dL 13.0-16.5 [facility] Blood platelet mean volumeOr dered By: Maikel Mosquera on 02-24-2022 Platelet mean volume (Bld) [Entitic vol] 9.2 fL 6.2-12.0 [facility] Determination of erythrocyte mean corpuscular volume (MCV)Ordered By: Maikel Mosquera on 02-24-2022 MCV (RBC) [Entitic vol] 95.4 fL 80-94 [facility] Hematocrit Auto (Bld) [Volum e fraction]Ordered By: Maikel Mosquera on 02-24-2022 Hematocrit (Bld) [Volume fraction] 41.9 % 40-54 [facility] Laboratory - Chemistry and C hemistry - challengeOrdered By: Maikel Mosquera on 02-24-2022 CO2 [Moles/Vol] 30.0 mmol/L 21.0-32.0 [facility] Urea nitrogen/Creatinine [Mass ratio] 27.5 mg/mg 10-20 [facility] Laboratory - Hematology and Cell countsOrdered By: Maikel Mosquera on 02-24-2022 Erythrocyte distribution width (RBC) [Entitic vol] 44.2 fL 35.1-43.9 [facility] Erythrocyte distribution width (RBC) [Ratio] 12.6 % 11.6-14.6 [facility] MCH (RBC) [Entitic mass] 32.6 pg 27.0-32.0 [facility] MCHC Auto (RBC) [Mass/Vol]Or dered By: Maikel Mosquera on 02-24-2022 MCHC (RBC) [Mass/Vol] 34.1 g/dL 32-36 [facility] No Panel InformationOrdered By: Maikel Mosquera on 02-24-2022 Estimated GFR (MDRD) Amer 91 mL/min >60 [facility] Comment on above: GFR Calc Estimated GFR (MDRD) Non-Af Amer 75 mL/min >60 [facility] Comment on above: Non- GFR Calc Platelets bldOrdered By: Chance Mosquera on 02-24-2022 Platelets (Bld) [#/Vol] 162 10*3/uL 150-450 [facility] Serum or plasma calcium farshad urement (mass/volume)Ordered By: Maikel Mosquera on 02-24-2022 Calcium [Mass/Vol] 9.1 mg/dL 8.5-10.1 [facility] Serum or plasma creatinine m easurement (mass/volume)Ordered By: Maikel Mosquera on 02-24-2022 Creatinine [Mass/Vol] 1.02 mg/dL 0.70-1.30 [facility] Comment on above: The validity of the calculated GFR & GFRAA in patients over 70 years has not been determined. Clinical correlation is essential. Serum or plasma urea nitroge n measurement (mass/volume)Ordered By: Maikel Mosquera on 02-24-2022 Urea nitrogen [Mass/Vol] 28 mg/dL 7-18 [facility] Thin prep Papanicolaou smear with manual screeningOrdered By: Maikel Mosquera on 02-24-2022 Thin prep Papanicolaou smear with manual screening 4 5-15 [facility] Basophil percentageon 2021 Bilirubin [Mass/Vol] 0.50 mg/dL 0.20-1.00 [facility] Work Phone: Comment on above: For patients on eltr ombopag therapy, use of Dimension [facility] TBIL is not recommended. Cholesterol [Mass/Vol] 184 mg/dL <200 [facility] Work Phone: Comment on above: <200 mg/dL Desirable 200-240 mg/dL Borderline >240 mg/dL High Risk Protein [Mass/Vol] 6.3 g/dL 6.4-8.2 [facility] Work Phone: Triglyceride [Mass/Vol] 103 mg/dL <199 [facility] Work Phone: Comment on above: The drugs N-Acetylcy steine and Metamizole may falsely depress this assay.Serum Triglycerides Reference Interval Normal <150 mg/dL Borderline high 150 - 199 mg/dL High 200 - 499 mg/dL Very High > or = 500 mg/dL Direct bilirubinon 2 Bilirubin.direct [Mass/Vol] 0.12 mg/dL 0.00-0.30 [facility] Work Phone: Laboratory - Chemistry and C hemistry - challengeon 02-07-2022 ALP [Catalytic activity/Vol] 118 U/L 45-117 [facility] Work Phone: ALT [Catalytic activity/Vol] 8 U/L 16-61 [facility] Work Phone: Free T4 [Mass/Vol] 0.87 ng/dL 0.76-1.46 [facility] Work Phone: Globulin (S) [Mass/Vol] 3.0 g/dL 2.2-4.2 [facility] Work Phone: No Panel Informationon 02-07 Thyroid Stimulating Hormone (TSH) 0.81 uIU/mL 0.358-3.74 [facility] Work Phone: Serum or plasma albumin farshad urement (mass/volume)on 02-07-2022 Albumin [Mass/Vol] 3.3 g/dL 3.2-5.0 [facility] Work Phone: Serum or plasma cholesterol in HDL measurement (mass/volume)on 02-07-2022 Cholesterol in HDL [Mass/Vol] 44 mg/dL >40 [facility] Work Phone: Comment on above: The drugs N-Acetylcy steine and Metamizole may falsely depress this assay. Reference Range HDL <40 mg/dL Low HDL Cholesterol HDL >or= 60 mg/dL High HDL Cholesterol Serum or plasma cholesterol in VLDL measurement (mass/volume)on 02-07-2022 Cholesterol in VLDL [Mass/Vol] 21 mg/dL 5-40 [facility] Work Phone: Serum or plasma low density lipoprotein (LDL) cholesterol measurement (mass/volume)on 02-07-2022 Cholesterol in LDL [Mass/Vol] 119 mg/dL 0-130 [facility] Work Phone: Thin prep Papanicolaou smear with manual screeningon 02-07-2022 Thin prep Papanicolaou smear with manual screening 12 U/L 15-37 [facility] Work Phone: Whole blood hemoglobin A1c/t otal hemoglobin ratio (mass fraction)on 02-07-2022 HbA1c (Bld) [Mass fraction] 5.6 % 3.8-5.6 [facility] Work Phone: Comment on above: Normal < 5.7 % Predi abetic 5.7 - 6.4 % Diabetic >or= 6.5 % Please note range changes. Basophil percentageon 2021 Chloride [Moles/Vol] 104 mmol/L 98-107 [facility] Work Phone: Glucose [Mass/Vol] 87 mg/dL 74-106 [facility] Work Phone: Potassium [Moles/Vol] 4.3 mmol/L 3.5-5.1 [facility] Work Phone: Sodium [Moles/Vol] 140 mmol/L 136-145 [facility] Work Phone: WBC (Bld) [#/Vol] 4.6 10*3/uL 4.4-11.0 [facility] Work Phone: Blood erythrocytes count (nu mber/volume)on 01-20-2022 RBC (Bld) [#/Vol] 4.17 10*6/uL 4.6-6.2 [facility] Work Phone: Blood hemoglobin measurement (mass/volume)on 01-20-2022 Hemoglobin (Bld) [Mass/Vol] 13.2 g/dL 13.0-16.5 [facility] Work Phone: Blood platelet mean volumeon 01-20-2022 Platelet mean volume (Bld) [Entitic vol] 9.2 fL 6.2-12.0 [facility] Work Phone: Determination of erythrocyte mean corpuscular volume (MCV)on 01-20-2022 MCV (RBC) [Entitic vol] 93.0 fL 80-94 [facility] Work Phone: Hematocrit Auto (Bld) [Volum e fraction]on 01-20-2022 Hematocrit (Bld) [Volume fraction] 38.8 % 40-54 [facility] Work Phone: Laboratory - Chemistry and C hemistry - challengeon 09-09-2022 CO2 [Moles/Vol] 29.0 mmol/L 21.0-32.0 [facility] Work Phone: Urea nitrogen/Creatinine [Mass ratio] 28.6 mg/mg 10-20 [facility] Work Phone: Laboratory - Hematology and Cell countson 01-20-2022 Erythrocyte distribution width (RBC) [Entitic vol] 42.7 fL 35.1-43.9 [facility] Work Phone: Erythrocyte distribution width (RBC) [Ratio] 12.6 % 11.6-14.6 [facility] Work Phone: MCH (RBC) [Entitic mass] 31.7 pg 27.0-32.0 [facility] Work Phone: MCHC Auto (RBC) [Mass/Vol]on 01-20-2022 MCHC (RBC) [Mass/Vol] 34.0 g/dL 32-36 [facility] Work Phone: No Panel Informationon 01-20 Estimated GFR (MDRD) Amer 100 mL/min >60 [facility] Work Phone: Comment on above: GFR Calc Estimated GFR (MDRD) Non-Af Amer 82 mL/min >60 [facility] Work Phone: Comment on above: Non- GFR Calc Platelets bldon 01-20-2022 Platelets (Bld) [#/Vol] 178 10*3/uL 150-450 [facility] Work Phone: Serum or plasma calcium farshad urement (mass/volume)on 01-20-2022 Calcium [Mass/Vol] 9.0 mg/dL 8.5-10.1 [facility] Work Phone: Serum or plasma creatinine m easurement (mass/volume)on 01-20-2022 Creatinine [Mass/Vol] 0.94 mg/dL 0.70-1.30 [facility] Work Phone: Comment on above: The validity of the calculated GFR & GFRAA in patients over 70 years has not been determined. Clinical correlation is essential. Serum or plasma urea nitroge n measurement (mass/volume)on 01-20-2022 Urea nitrogen [Mass/Vol] 27 mg/dL 7-18 [facility] Work Phone: Thin prep Papanicolaou smear with manual screeningon 01-20-2022 Thin prep Papanicolaou smear with manual screening 7 5-15 [facility] Work Phone: Basophil percentageon 2021 Chloride [Moles/Vol] 105 mmol/L 98-107 [facility] Work Phone: Glucose [Mass/Vol] 89 mg/dL 74-106 [facility] Work Phone: Potassium [Moles/Vol] 4.2 mmol/L 3.5-5.1 [facility] Work Phone: Sodium [Moles/Vol] 138 mmol/L 136-145 [facility] Work Phone: WBC (Bld) [#/Vol] 4.2 10*3/uL 4.4-11.0 [facility] Work Phone: Blood erythrocytes count (nu mber/volume)on 12-23-2021 RBC (Bld) [#/Vol] 4.15 10*6/uL 4.6-6.2 [facility] Work Phone: Blood hemoglobin measurement (mass/volume)on 12-23-2021 Hemoglobin (Bld) [Mass/Vol] 13.5 g/dL 13.0-16.5 [facility] Work Phone: Blood platelet mean volumeon 12-23-2021 Platelet mean volume (Bld) [Entitic vol] 9.3 fL 6.2-12.0 [facility] Work Phone: Determination of erythrocyte mean corpuscular volume (MCV)on 12-23-2021 MCV (RBC) [Entitic vol] 94.5 fL 80-94 [facility] Work Phone: Hematocrit Auto (Bld) [Volum e fraction]on 12-23-2021 Hematocrit (Bld) [Volume fraction] 39.2 % 40-54 [facility] Work Phone: Laboratory - Chemistry and C hemistry - challengeon 12-23-2021 CO2 [Moles/Vol] 29.0 mmol/L 21.0-32.0 [facility] Work Phone: Urea nitrogen/Creatinine [Mass ratio] 35.5 mg/mg 10-20 [facility] Work Phone: Laboratory - Hematology and Cell countson 12-23-2021 Erythrocyte distribution width (RBC) [Entitic vol] 43.9 fL 35.1-43.9 [facility] Work Phone: Erythrocyte distribution width (RBC) [Ratio] 12.7 % 11.6-14.6 [facility] Work Phone: MCH (RBC) [Entitic mass] 32.5 pg 27.0-32.0 [facility] Work Phone: MCHC Auto (RBC) [Mass/Vol]on 12-23-2021 MCHC (RBC) [Mass/Vol] 34.4 g/dL 32-36 [facility] Work Phone: No Panel Informationon 12-23 Estimated GFR (MDRD) Amer 114 mL/min >60 [facility] Work Phone: Comment on above: GFR Calc Estimated GFR (MDRD) Non-Af Amer 94 mL/min >60 [facility] Work Phone: Comment on above: Non- GFR Calc Platelets bldon 12-23-2021 Platelets (Bld) [#/Vol] 173 10*3/uL 150-450 [facility] Work Phone: Serum or plasma calcium farshad urement (mass/volume)on 12-23-2021 Calcium [Mass/Vol] 8.9 mg/dL 8.5-10.1 [facility] Work Phone: Serum or plasma creatinine m easurement (mass/volume)on 12-23-2021 Creatinine [Mass/Vol] 0.84 mg/dL 0.70-1.30 [facility] Work Phone: Comment on above: The validity of the calculated GFR & GFRAA in patients over 70 years has not been determined. Clinical correlation is essential. Serum or plasma urea nitroge n measurement (mass/volume)on 12-23-2021 Urea nitrogen [Mass/Vol] 30 mg/dL 7-18 [facility] Work Phone: Thin prep Papanicolaou smear with manual screeningon 12-23-2021 Thin prep Papanicolaou smear with manual screening 4 5-15 [facility] Work Phone: Basophil percentageon 2021 Chloride [Moles/Vol] 108 mmol/L 98-107 [facility] Work Phone: Glucose [Mass/Vol] 85 mg/dL 74-106 [facility] Work Phone: Potassium [Moles/Vol] 4.5 mmol/L 3.5-5.1 [facility] Work Phone: Sodium [Moles/Vol] 142 mmol/L 136-145 [facility] Work Phone: WBC (Bld) [#/Vol] 4.4 10*3/uL 4.4-11.0 [facility] Work Phone: Blood erythrocytes count (nu mber/volume)on 11-18-2021 RBC (Bld) [#/Vol] 4.00 10*6/uL 4.6-6.2 [facility] Work Phone: Blood hemoglobin measurement (mass/volume)on 11-18-2021 Hemoglobin (Bld) [Mass/Vol] 12.6 g/dL 13.0-16.5 [facility] Work Phone: Blood platelet mean volumeon 11-18-2021 Platelet mean volume (Bld) [Entitic vol] 9.5 fL 6.2-12.0 [facility] Work Phone: Determination of erythrocyte mean corpuscular volume (MCV)on 11-18-2021 MCV (RBC) [Entitic vol] 93.8 fL 80-94 [facility] Work Phone: Hematocrit Auto (Bld) [Volum e fraction]on 11-18-2021 Hematocrit (Bld) [Volume fraction] 37.5 % 40-54 [facility] Work Phone: Laboratory - Chemistry and C hemistry - challengeon 11-18-2021 CO2 [Moles/Vol] 32.0 mmol/L 21.0-32.0 [facility] Work Phone: Urea nitrogen/Creatinine [Mass ratio] 31.3 mg/mg 10-20 [facility] Work Phone: Laboratory - Hematology and Cell countson 11-18-2021 Erythrocyte distribution width (RBC) [Entitic vol] 44.8 fL 35.1-43.9 [facility] Work Phone: Erythrocyte distribution width (RBC) [Ratio] 13.1 % 11.6-14.6 [facility] Work Phone: MCH (RBC) [Entitic mass] 31.5 pg 27.0-32.0 [facility] Work Phone: MCHC Auto (RBC) [Mass/Vol]on 11-18-2021 MCHC (RBC) [Mass/Vol] 33.6 g/dL 32-36 [facility] Work Phone: No Panel Informationon 11-18 Estimated GFR (MDRD) Amer 98 mL/min >60 [facility] Work Phone: Comment on above: GFR Calc Estimated GFR (MDRD) Non-Af Amer 81 mL/min >60 [facility] Work Phone: Comment on above: Non- GFR Calc Platelets bldon 11-18-2021 Platelets (Bld) [#/Vol] 175 10*3/uL 150-450 [facility] Work Phone: Serum or plasma calcium farshad urement (mass/volume)on 11-18-2021 Calcium [Mass/Vol] 9.1 mg/dL 8.5-10.1 [facility] Work Phone: Serum or plasma creatinine m easurement (mass/volume)on 11-18-2021 Creatinine [Mass/Vol] 0.96 mg/dL 0.70-1.30 [facility] Work Phone: Comment on above: The validity of the calculated GFR & GFRAA in patients over 70 years has not been determined. Clinical correlation is essential. Serum or plasma urea nitroge n measurement (mass/volume)on 11-18-2021 Urea nitrogen [Mass/Vol] 30 mg/dL 7-18 [facility] Work Phone: Thin prep Papanicolaou smear with manual screeningon 11-18-2021 Thin prep Papanicolaou smear with manual screening 2 5-15 [facility] Work Phone: Basophil percentageon 2021 Chloride [Moles/Vol] 107 mmol/L 98-107 [facility] Work Phone: Glucose [Mass/Vol] 94 mg/dL 74-106 [facility] Work Phone: Potassium [Moles/Vol] 4.3 mmol/L 3.5-5.1 [facility] Work Phone: Sodium [Moles/Vol] 140 mmol/L 136-145 [facility] Work Phone: WBC (Bld) [#/Vol] 4.4 10*3/uL 4.4-11.0 [facility] Work Phone: Blood erythrocytes count (nu mber/volume)on 10-21-2021 RBC (Bld) [#/Vol] 4.01 10*6/uL 4.6-6.2 [facility] Work Phone: Blood hemoglobin measurement (mass/volume)on 10-21-2021 Hemoglobin (Bld) [Mass/Vol] 12.7 g/dL 13.0-16.5 [facility] Work Phone: Blood platelet mean volumeon 10-21-2021 Platelet mean volume (Bld) [Entitic vol] 9.1 fL 6.2-12.0 [facility] Work Phone: Determination of erythrocyte mean corpuscular volume (MCV)on 10-21-2021 MCV (RBC) [Entitic vol] 96.8 fL 80-94 [facility] Work Phone: Hematocrit Auto (Bld) [Volum e fraction]on 10-21-2021 Hematocrit (Bld) [Volume fraction] 38.8 % 40-54 [facility] Work Phone: Laboratory - Chemistry and C hemistry - challengeon 10-21-2021 CO2 [Moles/Vol] 31.0 mmol/L 21.0-32.0 [facility] Work Phone: Urea nitrogen/Creatinine [Mass ratio] 27.8 mg/mg 10-20 [facility] Work Phone: Laboratory - Hematology and Cell countson 10-21-2021 Erythrocyte distribution width (RBC) [Entitic vol] 44.9 fL 35.1-43.9 [facility] Work Phone: Erythrocyte distribution width (RBC) [Ratio] 12.6 % 11.6-14.6 [facility] Work Phone: MCH (RBC) [Entitic mass] 31.7 pg 27.0-32.0 [facility] Work Phone: MCHC Auto (RBC) [Mass/Vol]on 10-21-2021 MCHC (RBC) [Mass/Vol] 32.7 g/dL 32-36 [facility] Work Phone: No Panel Informationon 10-21 Estimated GFR (MDRD) Amer 97 mL/min >60 [facility] Work Phone: Comment on above: GFR Calc Estimated GFR (MDRD) Non-Af Amer 80 mL/min >60 [facility] Work Phone: Comment on above: Non- GFR Calc Platelets bldon 10-21-2021 Platelets (Bld) [#/Vol] 273 10*3/uL 150-450 [facility] Work Phone: Serum or plasma calcium farshad urement (mass/volume)on 10-21-2021 Calcium [Mass/Vol] 9.1 mg/dL 8.5-10.1 [facility] Work Phone: Serum or plasma creatinine m easurement (mass/volume)on 10-21-2021 Creatinine [Mass/Vol] 0.97 mg/dL 0.70-1.30 [facility] Work Phone: Comment on above: The validity of the calculated GFR & GFRAA in patients over 70 years has not been determined. Clinical correlation is essential. Serum or plasma urea nitroge n measurement (mass/volume)on 10-21-2021 Urea nitrogen [Mass/Vol] 27 mg/dL 7-18 [facility] Work Phone: Thin prep Papanicolaou smear with manual screeningon 10-21-2021 Thin prep Papanicolaou smear with manual screening 2 5-15 [facility] Work Phone: Absolute lymphocyte counton 10-02-2021 Lymphocytes Auto (Unsp spec) [#/Vol] 0.52 10*3/uL 0.83-4.51 [facility] Work Phone: Basophil percentageon 2021 Basophil percentage 0-5 SEEN /hpf 0-5 [facility] Work Phone: Basophils/100 WBC (Bld) 0.1 % 0-1 [facility] Work Phone: Bilirubin [Mass/Vol] 1.30 mg/dL 0.20-1.00 [facility] Work Phone: Comment on above: For patients on eltr ombopag therapy, use of Dimension [facility] TBIL is not recommended. Chloride [Moles/Vol] 104 mmol/L 98-107 [facility] Work Phone: Eosinophils/100 WBC (Bld) 0.1 % 0-5 [facility] Work Phone: Glucose [Mass/Vol] 135 mg/dL 74-106 [facility] Work Phone: Comment on above: Fasting Glucose resu lt greater than or equal to 126 mg/dL suggests DIABETES MELLITUS per A.D.A. criteria. Neutrophils (Bld) [#/Vol] 10.9 10*3/uL 2.0-7.7 [facility] Work Phone: Neutrophils/100 WBC (Bld) 91.6 % 47-70 [facility] Work Phone: Potassium [Moles/Vol] 4.1 mmol/L 3.5-5.1 [facility] Work Phone: Protein [Mass/Vol] 7.0 g/dL 6.4-8.2 [facility] Work Phone: Sodium [Moles/Vol] 136 mmol/L 136-145 [facility] Work Phone: WBC (Bld) [#/Vol] 11.9 10*3/uL 4.4-11.0 [facility] Work Phone: Bilirubin Test strip Ql (U)o n 10-02-2021 Bilirubin Ql (U) Negative Negative [facility] Work Phone: Blood erythrocytes count (nu mber/volume)on 10-02-2021 RBC (Bld) [#/Vol] 4.20 10*6/uL 4.6-6.2 [facility] Work Phone: Blood hemoglobin measurement (mass/volume)on 10-02-2021 Hemoglobin (Bld) [Mass/Vol] 13.7 g/dL 13.0-16.5 [facility] Work Phone: Blood lymphocytes/100 leukoc yteson 10-02-2021 Lymphocytes/100 WBC (Bld) 4.4 % 19-41 [facility] Work Phone: Blood manual differential co mment interpretation (narrative result)on 10-02-2021 Manual differential comment Jordi (Bld) [Interp] SCANNED [facility] Work Phone: Comment on above: LYMPHOPENIA NOTED Blood monocytes/100 leukocyt eson 10-02-2021 Monocytes/100 WBC (Bld) 3.3 % 0-10 [facility] Work Phone: Blood platelet mean volumeon 10-02-2021 Platelet mean volume (Bld) [Entitic vol] 9.0 fL 6.2-12.0 [facility] Work Phone: Determination of erythrocyte mean corpuscular volume (MCV)on 10-02-2021 MCV (RBC) [Entitic vol] 92.6 fL 80-94 [facility] Work Phone: Hematocrit Auto (Bld) [Volum e fraction]on 10-02-2021 Hematocrit (Bld) [Volume fraction] 38.9 % 40-54 [facility] Work Phone: Ketones Test strip Ql (U)on 10-02-2021 Ketones Ql (U) 15 mg/dl Negative [facility] Work Phone: Laboratory - Chemistry and C hemistry - challengeon 10-02-2021 ALP [Catalytic activity/Vol] 156 U/L 45-117 [facility] Work Phone: ALT [Catalytic activity/Vol] 14 U/L 16-61 [facility] Work Phone: CO2 [Moles/Vol] 26.0 mmol/L 21.0-32.0 [facility] Work Phone: Globulin (S) [Mass/Vol] 3.2 g/dL 2.2-4.2 [facility] Work Phone: Urea nitrogen/Creatinine [Mass ratio] 23.1 mg/mg 10-20 [facility] Work Phone: Laboratory - Hematology and Cell countson 10-02-2021 Erythrocyte distribution width (RBC) [Entitic vol] 42.7 fL 35.1-43.9 [facility] Work Phone: Erythrocyte distribution width (RBC) [Ratio] 12.6 % 11.6-14.6 [facility] Work Phone: Immature granulocytes/100 WBC (Bld) 0.500 % 0.0-0.9 [facility] Work Phone: Comment on above: IG% - Immature Granu locytes (promyelocytes, myelocytes and metamyelocytes) > 1% indicates that a LEFT SHIFT is Present. MCH (RBC) [Entitic mass] 32.6 pg 27.0-32.0 [facility] Work Phone: Nucleated RBC/100 WBC (Bld) [Ratio] 0 % 0-5 [facility] Work Phone: MCHC Auto (RBC) [Mass/Vol]on 10-02-2021 MCHC (RBC) [Mass/Vol] 35.2 g/dL 32-36 [facility] Work Phone: Mucus LM Ql (Urine sed)on Mucus Ql (Urine sed) RARE /hpf [facility] Work Phone: Nitrite Test strip Ql (U)on 10-02-2021 Nitrite Ql (U) Negative Negative [facility] Work Phone: No Panel Informationon 10-02 Estimated Creatinine Clearance Calc 60.08 ml/min [facility] Work Phone: Estimated GFR (MDRD) Amer 85 mL/min >60 [facility] Work Phone: Comment on above: GFR Calc Estimated GFR (MDRD) Non-Af Amer 71 mL/min >60 [facility] Work Phone: Comment on above: Non- GFR Calc Troponin I High Sensitivity 6 pg/mL 3.0-78.0 [facility] Work Phone: Comment on above: Please Note: [place] t Units and Gender Specific Reference Ranges. For more information see Policy Stat Procedure [facility] High Sensitivity Troponin (TNIH) and attachments. Platelets bldon 10-02-2021 Platelets (Bld) [#/Vol] 154 10*3/uL 150-450 [facility] Work Phone: Protein Test strip Ql (U)on 10-02-2021 Protein Ql (U) 15 mg/dl Negative [facility] Work Phone: Serum or plasma albumin farshad urement (mass/volume)on 10-02-2021 Albumin [Mass/Vol] 3.8 g/dL 3.2-5.0 [facility] Work Phone: Serum or plasma albumin/glob ulin mass ratioon 10-02-2021 Albumin/Globulin [Mass ratio] 1.2 {ratio} 0.9-2.4 [facility] Work Phone: Serum or plasma calcium farshad urement (mass/volume)on 10-02-2021 Calcium [Mass/Vol] 8.7 mg/dL 8.5-10.1 [facility] Work Phone: Serum or plasma creatinine m easurement (mass/volume)on 10-02-2021 Creatinine [Mass/Vol] 1.08 mg/dL 0.70-1.30 [facility] Work Phone: Comment on above: The validity of the calculated GFR & GFRAA in patients over 70 years has not been determined. Clinical correlation is essential. Serum or plasma urea nitroge n measurement (mass/volume)on 10-02-2021 Urea nitrogen [Mass/Vol] 25 mg/dL 7-18 [facility] Work Phone: Squamous epithelial cells de tection in urine sediment by light microscopyon 10-02-2021 Epithelial cells.squamous LM Ql (Urine sed) 0 SEEN /hpf 0-5 [facility] Work Phone: Thin prep Papanicolaou smear with manual screeningon 10-02-2021 Thin prep Papanicolaou smear with manual screening 34 U/L 15-37 [facility] Work Phone: Thin prep Papanicolaou smear with manual screening 6 5-15 [facility] Work Phone: Urine blood detectionon - RBC Ql (U) Negative Negative [facility] Work Phone: RBC Ql (U) 0 SEEN /hpf 0-5 [facility] Work Phone: Urine clarityon 10-02-2021 Clarity (U) Clear Clear [facility] Work Phone: Urine color determinationon 10-02-2021 Color (U) Yellow Yellow [facility] Work Phone: Urine glucose detectionon Glucose Ql (U) Normal mg/dl Normal [facility] Work Phone: Urine leukocyte esterase det ection by dipstickon 10-02-2021 Leukocyte esterase Test strip Ql (U) 25 /ul Negative [facility] Work Phone: Urine pHon 10-02-2021 pH (U) 6.0 [pH] 5.0 - 8.0 [facility] Work Phone: Urine sediment bacteria coun t by microscopy (number/high power field)on 10-02-2021 Bacteria LM.HPF (Urine sed) [#/Area] 0 /[HPF] None Seen [facility] Work Phone: Urine specific gravity measu rementon 10-02-2021 Specific gravity (U) [Rel density] 1.015 1.002-1.030 [facility] Work Phone: Urobilinogen Auto test strip Ql (U)on 10-02-2021 Urobilinogen Ql (U) 1 mg/dl Normal [facility] Work Phone: Basophil percentageon 2021 Chloride [Moles/Vol] 106 mmol/L 98-[address] [facility] Work Phone: Glucose [Mass/Vol] 96 mg/dL 74-[facility] Work [facility]: Potassium [Moles/Vol] 4.1 mmol/L 3.5-5.[address] [facility] Work Phone: Sodium [Moles/Vol] 139 mmol/L 136-145 [facility] Work Phone: WBC (Bld) [#/Vol] 4.7 10*3/uL 4.4-11.0 [facility] Work Phone: Blood erythrocytes count (nu mber/volume)on 09-23-2021 RBC (Bld) [#/Vol] 4.10 10*6/uL 4.6-6.2 [facility] Work Phone: Blood hemoglobin measurement (mass/volume)on 09-23-2021 Hemoglobin (Bld) [Mass/Vol] 13.4 g/dL 13.0-16.5 [facility] Work Phone: Blood platelet mean volumeon 09-23-2021 Platelet mean volume (Bld) [Entitic vol] 9.5 fL 6.2-12.0 [facility] Work Phone: Determination of erythrocyte mean corpuscular volume (MCV)on 09-23-2021 MCV (RBC) [Entitic vol] 95.9 fL 80-94 [facility] Work Phone: Hematocrit Auto (Bld) [Volum e fraction]on 09-23-2021 Hematocrit (Bld) [Volume fraction] 39.3 % 40-54 [facility] Work Phone: Laboratory - Chemistry and C hemistry - challengeon 09-23-2021 CO2 [Moles/Vol] 28.0 mmol/L 21.0-32.0 [facility] Work Phone: Urea nitrogen/Creatinine [Mass ratio] 32.7 mg/mg 10-20 [facility] Work Phone: Laboratory - Hematology and Cell countson 09-23-2021 Erythrocyte distribution width (RBC) [Entitic vol] 44.1 fL 35.1-43.9 [facility] Work Phone: Erythrocyte distribution width (RBC) [Ratio] 12.7 % 11.6-14.6 [facility] Work Phone: MCH (RBC) [Entitic mass] 32.7 pg 27.0-32.0 [facility] Work Phone: MCHC Auto (RBC) [Mass/Vol]on 09-23-2021 MCHC (RBC) [Mass/Vol] 34.1 g/dL 32- [facility] Work Phone: No Panel Informationon 09-23 Estimated GFR (MDRD) Amer 84 mL/min >60 [facility] Work Phone: Comment on above: GFR Calc Estimated GFR (MDRD) Non-Af Amer 69 mL/min >60 [facility] Work Phone: Comment on above: Non- GFR Calc Platelets bldon 09-23-2021 Platelets (Bld) [#/Vol] 167 10*3/uL 150-450 [facility] Work Phone: Serum or plasma calcium farshad urement (mass/volume)on 09-23-2021 Calcium [Mass/Vol] 9.0 mg/dL 8.5-10.1 [facility] Work Phone: Serum or plasma creatinine m easurement (mass/volume)on 09-23-2021 Creatinine [Mass/Vol] 1.10 mg/dL 0.70-1.30 [facility] Work Phone: Comment on above: The validity of the calculated GFR & GFRAA in patients over 70 years has not been determined. Clinical correlation is essential. Serum or plasma urea nitroge n measurement (mass/volume)on 09-23-2021 Urea nitrogen [Mass/Vol] 36 mg/dL 7-18 [facility] Work Phone: Thin prep Papanicolaou smear with manual screeningon 09-23-2021 Thin prep Papanicolaou smear with manual screening 5 5-15 [facility] Work Phone: Basophil percentageon 2021 Chloride [Moles/Vol] 105 mmol/L 98-107 [facility] Work Phone: Glucose [Mass/Vol] 88 mg/dL 74-106 [facility] Work Phone: Potassium [Moles/Vol] 4.2 mmol/L 3.5-5.1 [facility] Work Phone: Sodium [Moles/Vol] 139 mmol/L 136-145 [facility] Work Phone: WBC (Bld) [#/Vol] 4.3 10*3/uL 4.4-11.0 [facility] Work Phone: Blood erythrocytes count (nu mber/volume)on 08-19-2021 RBC (Bld) [#/Vol] 4.31 10*6/uL 4.6-6.2 [facility] Work Phone: Blood hemoglobin measurement (mass/volume)on 08-19-2021 Hemoglobin (Bld) [Mass/Vol] 13.6 g/dL 13.0-16.5 [facility] Work Phone: Blood platelet mean volumeon 08-19-2021 Platelet mean volume (Bld) [Entitic vol] 9.4 fL 6.2-12.0 [facility] Work Phone: Determination of erythrocyte mean corpuscular volume (MCV)on 08-19-2021 MCV (RBC) [Entitic vol] 93.5 fL 80-94 [facility] Work Phone: Hematocrit Auto (Bld) [Volum e fraction]on 08-19-2021 Hematocrit (Bld) [Volume fraction] 40.3 % 40-54 [facility] Work Phone: Laboratory - Chemistry and C hemistry - challengeon 08-19-2021 CO2 [Moles/Vol] 31.0 mmol/L 21.0-32.0 [facility] Work Phone: Urea nitrogen/Creatinine [Mass ratio] 34.1 mg/mg 10-20 [facility] Work Phone: Laboratory - Hematology and Cell countson 08-19-2021 Erythrocyte distribution width (RBC) [Entitic vol] 43.7 fL 35.1-43.9 [facility] Work Phone: Erythrocyte distribution width (RBC) [Ratio] 12.6 % 11.6-14.6 [facility] Work Phone: MCH (RBC) [Entitic mass] 31.6 pg 27.0-32.0 [facility] Work Phone: MCHC Auto (RBC) [Mass/Vol]on 08-19-2021 MCHC (RBC) [Mass/Vol] 33.7 g/dL 32-36 [facility] Work Phone: No Panel Informationon 08-19 Estimated GFR (MDRD) Amer 94 mL/min >60 [facility] Work Phone: Comment on above: GFR Calc Estimated GFR (MDRD) Non-Af Amer 77 mL/min >60 [facility] Work Phone: Comment on above: Non- GFR Calc Platelets bldon 08-19-2021 Platelets (Bld) [#/Vol] 162 10*3/uL 150-450 [facility] Work Phone: Serum or plasma calcium farshad urement (mass/volume)on 08-19-2021 Calcium [Mass/Vol] 8.7 mg/dL 8.5-10.1 [facility] Work Phone: Serum or plasma creatinine m easurement (mass/volume)on 08-19-2021 Creatinine [Mass/Vol] 1.00 mg/dL 0.70-1.30 [facility] Work Phone: Comment on above: The validity of the calculated GFR & GFRAA in patients over 70 years has not been determined. Clinical correlation is essential. Serum or plasma urea nitroge n measurement (mass/volume)on 08-19-2021 Urea nitrogen [Mass/Vol] 34 mg/dL 7-18 [facility] Work Phone: Thin prep Papanicolaou smear with manual screeningon 08-19-2021 Thin prep Papanicolaou smear with manual screening 3 5-15 [facility] Work Phone: Basophil percentageon 2021 Chloride [Moles/Vol] 108 mmol/L 98-107 [facility] Work Phone: Glucose [Mass/Vol] 85 mg/dL 74-106 [facility] Work Phone: Potassium [Moles/Vol] 4.3 mmol/L 3.5-5.1 [facility] Work Phone: Sodium [Moles/Vol] 141 mmol/L 136-145 [facility] Work Phone: WBC (Bld) [#/Vol] 4.4 10*3/uL 4.4-11.0 [facility] Work Phone: Blood erythrocytes count (nu mber/volume)on 07-22-2021 RBC (Bld) [#/Vol] 4.02 10*6/uL 4.6-6.2 [facility] Work Phone: Blood hemoglobin measurement (mass/volume)on 07-22-2021 Hemoglobin (Bld) [Mass/Vol] 13.1 g/dL 13.0-16.5 [facility] Work Phone: Blood platelet mean volumeon 07-22-2021 Platelet mean volume (Bld) [Entitic vol] 9.2 fL 6.2-12.0 [facility] Work Phone: Determination of erythrocyte mean corpuscular volume (MCV)on 07-22-2021 MCV (RBC) [Entitic vol] 92.8 fL 80-94 [facility] Work Phone: Hematocrit Auto (Bld) [Volum e fraction]on 07-22-2021 Hematocrit (Bld) [Volume fraction] 37.3 % 40-54 [facility] Work Phone: Laboratory - Chemistry and C hemistry - challengeon 07-22-2021 CO2 [Moles/Vol] 32.0 mmol/L 21.0-32.0 [facility] Work Phone: Urea nitrogen/Creatinine [Mass ratio] 26.4 mg/mg 10-20 [facility] Work Phone: Laboratory - Hematology and Cell countson 07-22-2021 Erythrocyte distribution width (RBC) [Entitic vol] 42.7 fL 35.1-43.9 [facility] Work Phone: Erythrocyte distribution width (RBC) [Ratio] 12.5 % 11.6-14.6 [facility] Work Phone: MCH (RBC) [Entitic mass] 32.6 pg 27.0-32.0 [facility] Work Phone: MCHC Auto (RBC) [Mass/Vol]on 07-22-2021 MCHC (RBC) [Mass/Vol] 35.1 g/dL 32-36 [facility] Work Phone: No Panel Informationon 07-22 Estimated GFR (MDRD) Amer 87 mL/min >60 [facility] Work Phone: Comment on above: GFR Calc Estimated GFR (MDRD) Non-Af Amer 72 mL/min >60 [facility] Work Phone: Comment on above: Non- GFR Calc Platelets bldon 07-22-2021 Platelets (Bld) [#/Vol] 163 10*3/uL 150-450 [facility] Work Phone: Serum or plasma calcium farshad urement (mass/volume)on 07-22-2021 Calcium [Mass/Vol] 8.9 mg/dL 8.5-10.1 [facility] Work Phone: Serum or plasma creatinine m easurement (mass/volume)on 07-22-2021 Creatinine [Mass/Vol] 1.06 mg/dL 0.70-1.30 [facility] Work Phone: Comment on above: The validity of the calculated GFR & GFRAA in patients over 70 years has not been determined. Clinical correlation is essential. Serum or plasma urea nitroge n measurement (mass/volume)on 07-22-2021 Urea nitrogen [Mass/Vol] 28 mg/dL 7-18 [facility] Work Phone: Thin prep Papanicolaou smear with manual screeningon 07-22-2021 Thin prep Papanicolaou smear with manual screening 1 5-15 [facility] Work Phone: Basophil percentageon 2021 Chloride [Moles/Vol] 106 mmol/L 98-107 [facility] Work Phone: Glucose [Mass/Vol] 80 mg/dL 74-106 [facility] Work Phone: Potassium [Moles/Vol] 4.2 mmol/L 3.5-5.1 [facility] Work Phone: Sodium [Moles/Vol] 140 mmol/L 136-145 [facility] Work Phone: WBC (Bld) [#/Vol] 4.1 10*3/uL 4.4-11.0 [facility] Work Phone: Blood erythrocytes count (nu mber/volume)on 06-24-2021 RBC (Bld) [#/Vol] 4.10 10*6/uL 4.6-6.2 [facility] Work Phone: Blood hemoglobin measurement (mass/volume)on 06-24-2021 Hemoglobin (Bld) [Mass/Vol] 13.3 g/dL 13.0-16.5 [facility] Work Phone: Blood platelet mean volumeon 06-24-2021 Platelet mean volume (Bld) [Entitic vol] 9.5 fL 6.2-12.0 [facility] Work Phone: Determination of erythrocyte mean corpuscular volume (MCV)on 06-24-2021 MCV (RBC) [Entitic vol] 93.4 fL 80-94 [facility] Work Phone: Hematocrit Auto (Bld) [Volum e fraction]on 06-24-2021 Hematocrit (Bld) [Volume fraction] 38.3 % 40-54 [facility] Work Phone: Laboratory - Chemistry and C hemistry - challengeon 06-24-2021 CO2 [Moles/Vol] 33.0 mmol/L 21.0-32.0 [facility] Work Phone: Urea nitrogen/Creatinine [Mass ratio] 32.4 mg/mg 10-20 [facility] Work Phone: Laboratory - Hematology and Cell countson 06-24-2021 Erythrocyte distribution width (RBC) [Entitic vol] 43.4 fL 35.1-43.9 [facility] Work Phone: Erythrocyte distribution width (RBC) [Ratio] 12.5 % 11.6-14.6 [facility] Work Phone: MCH (RBC) [Entitic mass] 32.4 pg 27.0-32.0 [facility] Work Phone: MCHC Auto (RBC) [Mass/Vol]on 06-24-2021 MCHC (RBC) [Mass/Vol] 34.7 g/dL 32-36 [facility] Work Phone: No Panel Informationon 06-24 Estimated GFR (MDRD) Amer 102 mL/min >60 [facility] Work Phone: Comment on above: GFR Calc Estimated GFR (MDRD) Non-Af Amer 84 mL/min >60 [facility] Work Phone: Comment on above: Non- GFR Calc Platelets bldon 06-24-2021 Platelets (Bld) [#/Vol] 149 10*3/uL 150-450 [facility] Work Phone: Serum or plasma calcium farshad urement (mass/volume)on 06-24-2021 Calcium [Mass/Vol] 8.6 mg/dL 8.5-10.1 [facility] Work Phone: Serum or plasma creatinine m easurement (mass/volume)on 06-24-2021 Creatinine [Mass/Vol] 0.93 mg/dL 0.70-1.30 [facility] Work Phone: Comment on above: The validity of the calculated GFR & GFRAA in patients over 70 years has not been determined. Clinical correlation is essential. Serum or plasma urea nitroge n measurement (mass/volume)on 06-24-2021 Urea nitrogen [Mass/Vol] 30 mg/dL 7-18 [facility] Work Phone: Thin prep Papanicolaou smear with manual screeningon 06-24-2021 Thin prep Papanicolaou smear with manual screening 1 5-15 [facility] Work Phone: Basophil percentageon 2021 Chloride [Moles/Vol] 105 mmol/L 98-107 [facility] Work Phone: Glucose [Mass/Vol] 93 mg/dL 74-106 [facility] Work Phone: Potassium [Moles/Vol] 4.4 mmol/L 3.5-5.1 [facility] Work Phone: Sodium [Moles/Vol] 140 mmol/L 136-145 [facility] Work Phone: WBC (Bld) [#/Vol] 4.8 10*3/uL 4.4-11.0 [facility] Work Phone: Blood erythrocytes count (nu mber/volume)on 05-27-2021 RBC (Bld) [#/Vol] 4.04 10*6/uL 4.6-6.2 [facility] Work Phone: Blood hemoglobin measurement (mass/volume)on 05-27-2021 Hemoglobin (Bld) [Mass/Vol] 13.0 g/dL 13.0-16.5 [facility] Work Phone: Blood platelet mean volumeon 05-27-2021 Platelet mean volume (Bld) [Entitic vol] 9.5 fL 6.2-12.0 [facility] Work Phone: Determination of erythrocyte mean corpuscular volume (MCV)on 05-27-2021 MCV (RBC) [Entitic vol] 94.1 fL 80-94 [facility] Work Phone: Hematocrit Auto (Bld) [Volum e fraction]on 05-27-2021 Hematocrit (Bld) [Volume fraction] 38.0 % 40-54 [facility] Work Phone: Laboratory - Chemistry and C hemistry - challengeon 05-27-2021 CO2 [Moles/Vol] 31.0 mmol/L 21.0-32.0 [facility] Work Phone: Urea nitrogen/Creatinine [Mass ratio] 25.2 mg/mg 10-20 [facility] Work Phone: Laboratory - Hematology and Cell countson 05-27-2021 Erythrocyte distribution width (RBC) [Entitic vol] 43.4 fL 35.1-43.9 [facility] Work Phone: Erythrocyte distribution width (RBC) [Ratio] 12.5 % 11.6-14.6 [facility] Work Phone: MCH (RBC) [Entitic mass] 32.2 pg 27.0-32.0 [facility] Work Phone: MCHC Auto (RBC) [Mass/Vol]on 05-27-2021 MCHC (RBC) [Mass/Vol] 34.2 g/dL 32-36 [facility] Work Phone: No Panel Informationon 05-27 Estimated GFR (MDRD) Amer 90 mL/min >60 [facility] Work Phone: Comment on above: GFR Calc Estimated GFR (MDRD) Non-Af Amer 75 mL/min >60 [facility] Work Phone: Comment on above: Non- GFR Calc Platelets bldon 05-27-2021 Platelets (Bld) [#/Vol] 157 10*3/uL 150-450 [facility] Work Phone: Serum or plasma calcium farshad urement (mass/volume)on 05-27-2021 Calcium [Mass/Vol] 8.9 mg/dL 8.5-10.1 [facility] Work Phone: Serum or plasma creatinine m easurement (mass/volume)on 05-27-2021 Creatinine [Mass/Vol] 1.03 mg/dL 0.70-1.30 [facility] Work Phone: Comment on above: The validity of the calculated GFR & GFRAA in patients over 70 years has not been determined. Clinical correlation is essential. Serum or plasma urea nitroge n measurement (mass/volume)on 05-27-2021 Urea nitrogen [Mass/Vol] 26 mg/dL 7-18 [facility] Work Phone: Thin prep Papanicolaou smear with manual screeningon 05-27-2021 Thin prep Papanicolaou smear with manual screening 4 5-15 [facility] Work Phone: [facility] Surgical Pathology Depar tmenton 12-21-2020 [facility] Surgical Pathology Department Name IGOR HANSEN Pathologist: JAYSHREE BRITTON DMD Date of Procedure: 12/21/2020 Date Received: 12/24/2020 Date Reported 12/27/2020 Submitting Physician: MARJAN SOSA DMD Location: [facility] Other External # FINAL DIAGNOSIS A: FRONT AND RIGHT LATERAL BORDER OF TONGUE, EXCISION: -- TRAUMATIC FIBROMAS ICD-10/CPT: D10.1/07884 Electronically Signed Out By JAYSHREE BRITTON DMD/YESIKA [...] in toto in one cassette. [facility] rcc/12/24/2020 [facility] Department of Pathology [address] [place] [address] Normal [facility] Comment on above: Performed By: #### U [facility] #### [facility] Surgical Pathology Department [address] [place] [address] CURon 08-12-2019 CUR . MICRO - Microbiology [...] Locations *1: This test was performed at: [facility], [address] [place] [address], [id number] , [facility] Normal [facility] ([place]) Comment on above: Performed By: #### C BC, CLARA, ANEU #### [address] [address] #### TROP, BMP, TSH, GFR #### [address] [address] .GFRon 08-10-2019 GFR 43 ml/min/1.73sqm Normal [facility] ([place]) Comment on above: Result Comment: GFR [...] meters Performed By: #### B MP, GFR ####[place] [address] GFR Non- 35 ml/min/1.73sqm Normal [facility] ([place]) Comment on above: Result Comment: GFR [...] meters Performed By: #### B MP, GFR ####[address] [address] BMPon 08-10-2019 Calcium [Mass/Vol] 9.1 mg/dL Normal 8.4-10.2 [facility] ([place]) Comment on above: Performed By: #### B MP, GFR ####[address] [address] Chloride [Moles/Vol] 105 mmol/L Normal 98-107 [facility] ([place]) Comment on above: Performed By: #### B MP, GFR ####[address] [address] CO2 [Moles/Vol] 33 mmol/L High 23-31 [facility] ([place]) Comment on above: Performed By: #### B MP, GFR ####[address] [address] Creatinine [Mass/Vol] 1.88 mg/dL High 0.70-1.30 [facility] ([place]) Comment on above: Performed By: #### B MP, GFR ####[address] [address] Electrolyte Balance 5.0 mEq/L Normal [facility] ([place]) Comment on above: Performed By: #### B MP, GFR ####[address] [address] Glucose [Mass/Vol] 83 mg/dL Normal 83-110 [facility] ([place]) Comment on above: Performed By: #### B MP, GFR ####[address] [address] Potassium [Moles/Vol] 4.1 mmol/L Normal 3.5-5.1 [facility] ([place]) Comment on above: Performed By: #### B MP, GFR ####[address] [address] Sodium [Moles/Vol] 143 mmol/L Normal 136-145 [facility] ([place]) Comment on above: Performed By: #### B MP, GFR ####[address] [address] Urea nitrogen [Mass/Vol] 38 mg/dL High 7-18 [facility] ([place]) Comment on above: Performed By: #### B MP, GFR ####[address] [address] Urea nitrogen/Creatinine [Mass ratio] 20 ratio Normal 12-07 [facility] ([place]) Comment on above: Performed By: #### B MP, GFR ####[address] [address] UAon 08-10-2019 Color (U) Yellow Normal [facility] ([place]) Comment on above: Performed By: #### C BC, ADIFF, ANEU #### [address] [address] #### TROP, BMP, TSH, GFR #### [address] [address] Glucose (U) [Mass/Vol] Negative Normal Negative [facility] ([place]) Comment on above: Performed By: #### C BC, ADIFF, ANEU #### [address] [address] #### TROP, BMP, TSH, GFR #### [address] [address] Ketones Ql (U) Negative Normal Negative [facility] ([place]) Comment on above: Performed By: #### C BC, ADIFF, ANEU #### [address] [address] #### TROP, BMP, TSH, GFR #### [address] [address] UA Appear Clear Normal Clear [facility] ([place]) Comment on above: Performed By: #### C BC, ADIFF, ANEU #### [address] [address] #### TROP, BMP, TSH, GFR #### [address] [address] UA Blood Trace Abnormal Negative [facility] ([place]) Comment on above: Performed By: #### C BC, ADIFF, ANEU #### [address] [address] #### TROP, BMP, TSH, GFR #### [place] [address] UA Leuk Est Negative Normal Negative [facility] ([place]) Comment on above: Performed By: #### C BC, ADIFF, ANEU #### [place] [address] #### TROP, BMP, TSH, GFR #### [place] [address] UA Nitrite Negative Normal Negative [facility] ([place]) Comment on above: Performed By: #### C BC, ADIFF, ANEU #### [place] [address] #### TROP, BMP, TSH, GFR #### [place] [address] UA pH 7.0 Normal 5.0 - 8.0 [facility] ([place]) Comment on above: Performed By: #### C BC, ADIFF, ANEU #### [place] [address] #### TROP, BMP, TSH, GFR #### [place] [address] UA Protein Negative Normal Negative [facility] ([place]) Comment on above: Performed By: #### C BC, ADIFF, ANEU #### [place] [address] #### TROP, BMP, TSH, GFR #### [place] [address] UA Spec Grav 1.020 Normal 1.015-1.025 [facility] ([place]) Comment on above: Performed By: #### C BC, ADIFF, ANEU #### [place] [address] #### TROP, BMP, TSH, GFR #### [place] [address] UA Specimen Type Clean Catch Normal [facility] ([place]) Comment on above: Performed By: #### C BC, ADIFF, ANEU #### [place] [address] #### TROP, BMP, TSH, GFR #### [place] [address] UA Urobilinogen 0.2 E.U./dL Normal 0.2-1.0 [facility] ([place]) Comment on above: Performed By: #### C BC, ADIFF, ANEU #### [place] [address] #### TROP, BMP, TSH, GFR #### [place] [address] Urobilinogen Qn (U) Negative Normal Negative [facility] ([place]) Comment on above: Performed By: #### C BC, ADIFF, ANEU #### [place] [address] #### TROP, BMP, TSH, GFR #### [place] [address] .Auto Diffon 08-09-2019 Ammonia (P) [Mass/Vol] 0.40 10 3/mcL Normal 0.15-1.00 [facility] ([place]) Comment on above: Performed By: #### C BC, ADIFF, ANEU #### [place] [address] #### TROP, BMP, TSH, GFR #### [place] [address] Basophils (Bld) [#/Vol] 0.00 10 3/mcL Normal 0.00-0.19 [facility] ([place]) Comment on above: Performed By: #### C BC, ADIFF, ANEU #### [place] [address] #### TROP, BMP, TSH, GFR #### [place] [address] Basophils/100 WBC (Bld) 1.0 % Normal 0.0-2.5 A [facility] ([place]) Comment on above: Performed By: #### C BC, ADIFF, ANEU #### [place] [address] #### TROP, BMP, TSH, GFR #### [address] [address] Eosinophils (Bld) [#/Vol] 0.10 10 3/mcL Normal 0.00-0.40 [facility] ([place]) Comment on above: Performed By: #### C BC, ADIFF, ANEU #### [place] [address] #### TROP, BMP, TSH, GFR #### [address] [address] Eosinophils/100 WBC (Bld) 1.3 % Normal 0.0-7.0 [facility] ([place]) Comment on above: Performed By: #### C BC, ADIFF, ANEU #### [place] [address] #### TROP, BMP, TSH, GFR #### [address] [address] Lymphocytes (Bld) [#/Vol] 0.80 10 3/mcL Normal 0.77-3.85 [facility] ([place]) Comment on above: Performed By: #### C BC, ADIFF, ANEU #### [place] [address] #### TROP, BMP, TSH, GFR #### [address] [address] Lymphocytes/100 WBC (Bld) 15.3 % Normal 10.0-50.0 [facility] ([place] Comment on above: Performed By: #### C BC, ADIFF, ANEU #### [place] [address] #### TROP, BMP, TSH, GFR #### [address] [address] Monocytes/100 WBC (Bld) 8.0 % Normal 1.7-13.0 A [facility] ([place]) Comment on above: Performed By: #### C BC, ADIFF, ANEU #### [address] [place] [address] #### TROP, BMP, TSH, GFR #### [address] [address] Neutrophils/100 WBC (Bld) 74.4 % Normal 37.0-80.0 [facility] ([place]) Comment on above: Performed By: #### C BC, ADIFF, ANEU #### [place] [address] #### TROP, BMP, TSH, GFR #### [address] [address] .GFRon 08-09-2019 GFR 39 ml/min/1.73sqm Normal [facility] ([place]) Comment on above: Result Comment: GFR [...] #### B MP, MG, GFR, VIDH, B12 ####[address] [address] GFR Non- 32 ml/min/1.73sqm Normal [facility] ([place]) Comment on above: Result Comment: GFR [...] #### B MP, MG, GFR, VIDH, B12 ####[facility] [place] [address] GFR Non- 31 ml/min/1.73sqm Normal [facility] ([place]) Comment on above: Result Comment: GFR [...] By: #### C BC, ADIFF, ANEU #### [address] [address] #### TROP, BMP, TSH, GFR #### [facility] [address] [place] [address] GFR 37 ml/min/1.73sqm Normal [facility] ([place]) Comment on above: Result Comment: GFR [...] By: #### C BC, ADIFF, ANEU #### [address] [address] #### TROP, BMP, TSH, GFR #### [address] [address] .NEUABSon 08-09-2019 Neutrophils (Bld) [#/Vol] 3.80 10 3/mcL Normal 2.85-6.16 [facility] ([place]) Comment on above: Performed By: #### C BC, ADIFF, ANEU #### [address] [address] #### TROP, BMP, TSH, GFR #### [address] [address] .Urinalysis Microscopic (AO) on 08-09-2019 RBC (U) [#/Vol] 0-5 Abnormal None Seen [facility] ([place]) Comment on above: Performed By: #### U A, UAMICAO ####[place] [address] UA Squam Epithelial None Seen Normal None Seen [facility] ([place]) Comment on above: Performed By: #### U A, UAMICAO ####[place] [address] UA WBC 0-5 Abnormal None Seen [facility] ([place]) Comment on above: Performed By: #### U A, UAMICAO ####[place] [address] B12on 08-09-2019 Cobalamin (Vitamin B12) [Mass/Vol] 336 pg/mL Normal 211-911 [facility] ([place]) Comment on above: Performed By: #### B MP, MG, GFR, VIDH, B12 ####[place] [address] BMPon 08-09-2019 Calcium [Mass/Vol] 8.7 mg/dL Normal 8.4-10.2 [facility] ([place]) Comment on above: Performed By: #### B MP, MG, GFR, VIDH, B12 ####[place] [address] Chloride [Moles/Vol] 106 mmol/L Normal 98-107 [facility] ([place]) Comment on above: Performed By: #### B MP, MG, GFR, VIDH, B12 ####[place] [address] CO2 [Moles/Vol] 32 mmol/L High 23-31 [facility] ([place] Comment on above: Performed By: #### B MP, MG, GFR, VIDH, B12 ####[place] [address] Creatinine [Mass/Vol] 2.03 mg/dL High 0.70-1.30 [facility] ([place]) Comment on above: Performed By: #### B MP, MG, GFR, VIDH, B12 ####[place] [address] Electrolyte Balance 3.0 mEq/L Normal [facility] ([place] Comment on above: Performed By: #### B MP, MG, GFR, VIDH, B12 ####[place] [address] Glucose [Mass/Vol] 91 mg/dL Normal 83-110 [facility] ([place]) Comment on above: Performed By: #### B MP, MG, GFR, VIDH, B12 ####[place] [address] Potassium [Moles/Vol] 4.5 mmol/L Normal 3.5-5.1 [facility] ([place]) Comment on above: Performed By: #### B MP, MG, GFR, VIDH, B12 ####[place] [address] Sodium [Moles/Vol] 141 mmol/L Normal 136-145 [facility] ([place] Comment on above: Performed By: #### B MP, MG, GFR, VIDH, B12 ####[place] [address] Urea nitrogen [Mass/Vol] 46 mg/dL High 7-18 [facility] ([place]) Comment on above: Performed By: #### B MP, MG, GFR, VIDH, B12 ####[facility] [place] [address] Urea nitrogen/Creatinine [Mass ratio] 23 ratio Normal 7-27 [facility] ([place] Comment on above: Performed By: #### B MP, MG, GFR, VIDH, B12 ####[place] [address] [place] [address] Calcium [Mass/Vol] 9.6 mg/dL Normal 8.4-10.2 [facility] ([place]) Comment on above: Performed By: #### C BC, ADIFF, ANEU #### [address] [address] #### TROP, BMP, TSH, GFR #### [address] [address] Chloride [Moles/Vol] 104 mmol/L Normal 98-107 [facility] ([place] Comment on above: Performed By: #### C BC, ADIFF, ANEU #### [address] [address] #### TROP, BMP, TSH, GFR #### [address] [address] CO2 [Moles/Vol] 29 mmol/L Normal 23-31 [facility] ([place] Comment on above: Performed By: #### C BC, ADIFF, ANEU #### [address] [address] #### TROP, BMP, TSH, GFR #### [address] [address] Creatinine [Mass/Vol] 2.12 mg/dL High 0.70-1.30 [facility] ([place] Comment on above: Performed By: #### C BC, ADIFF, ANEU #### [address] [address] #### TROP, BMP, TSH, GFR #### [address] [address] Electrolyte Balance 8.0 mEq/L Normal [facility] ([place] Comment on above: Performed By: #### C BC, ADIFF, ANEU #### [address] [address] #### TROP, BMP, TSH, GFR #### [address] [address] Glucose [Mass/Vol] 92 mg/dL Normal 83-110 [facility] ([place]) Comment on above: Performed By: #### C BC, ADIFF, ANEU #### [address] [address] #### TROP, BMP, TSH, GFR #### [address] [address] Potassium [Moles/Vol] 4.2 mmol/L Normal 3.5-5.1 [facility] ([place]) Comment on above: Performed By: #### C BC, ADIFF, ANEU #### [address] [address] #### TROP, BMP, TSH, GFR #### [address] [address] Sodium [Moles/Vol] 141 mmol/L Normal 136-145 [facility] ([place]) Comment on above: Performed By: #### C BC, ADIFF, ANEU #### [address] [address] #### TROP, BMP, TSH, GFR #### [address] [address] Urea nitrogen [Mass/Vol] 47 mg/dL High 7-18 [facility] ([place]) Comment on above: Performed By: #### C BC, ADIFF, ANEU #### [address] [address] #### TROP, BMP, TSH, GFR #### [address] [address] Urea nitrogen/Creatinine [Mass ratio] 22 ratio Normal 7-27 [facility] ([place] Comment on above: Performed By: #### C BC, ADIFF, ANEU #### [address] [address] #### TROP, BMP, TSH, GFR #### [address] [address] CBCon 08-09-2019 Erythrocyte distribution width (RBC) [Ratio] 13.0 % Normal 11.5-14.5 [facility] ([place]) Comment on above: Performed By: #### C BC, ADIFF, ANEU #### [address] [address] #### TROP, BMP, TSH, GFR #### [place] [address] Hematocrit (Bld) [Volume fraction] 41.5 % Low 42.0-52.0 [facility] ([place]) Comment on above: Performed By: #### C BC, ADIFF, ANEU #### [place] [address] #### TROP, BMP, TSH, GFR #### [place] [address] Hemoglobin (Bld) [Mass/Vol] 14.4 G/dL Normal 14.0-18.0 [facility] ([place]) Comment on above: Performed By: #### C BC, ADIFF, ANEU #### [place] [address] #### TROP, BMP, TSH, GFR #### [place] [address] MCH (RBC) [Entitic mass] 31.6 pg High 27.0-31.2 [facility] ([place]) Comment on above: Performed By: #### C BC, ADIFF, ANEU #### [place] [address] #### TROP, BMP, TSH, GFR #### [place] [address] MCHC (RBC) [Mass/Vol] 34.7 G/dL Normal 31.8-35.4 [facility] ([place]) Comment on above: Performed By: #### C BC, ADIFF, ANEU #### [place] [address] #### TROP, BMP, TSH, GFR #### [address] [address] MCV (RBC) [Entitic vol] 91.0 fL Normal 80.0-94.0 A [facility] ([place]) Comment on above: Performed By: #### C BC, ADIFF, ANEU #### [place] [address] #### TROP, BMP, TSH, GFR #### [place] [address] Platelet mean volume (Bld) [Entitic vol] 7.6 fL Normal 7.4-10.4 [facility] ([place]) Comment on above: Performed By: #### C BC, ADIFF, ANEU #### [place] [address] #### TROP, BMP, TSH, GFR #### [place] [id number] Platelets (Bld) [#/Vol] 168 10 3/mcL Normal 130-400 [facility] ([place]) Comment on above: Performed By: #### C BC, ADIFF, ANEU #### [place] [address] #### TROP, BMP, TSH, GFR #### [place] [address] RBC (Bld) [#/Vol] 4.56 10 6/mcL Normal 4.04-6.13 [facility] ([place]) Comment on above: Performed By: #### C BC, ADIFF, ANEU #### [place] [address] #### TROP, BMP, TSH, GFR #### [address] [address] WBC (Bld) [#/Vol] 5.10 10 3/mcL Normal 4.60-10.80 [facility] ([place]) Comment on above: Performed By: #### C BC, ADIFF, ANEU #### [place] [address] #### TROP, BMP, TSH, GFR #### [place] [id number] [place] [address] HEAD OR BRAIN W/O CONTRAS Ton [...] Date: 08/09/2019 12:01:05 AM Ordering Provider:Robert Spence [facility] ([place]) MGon 08-09-2019 Magnesium [Mass/Vol] 1.8 mg/dL Normal 1.8-2.4 [facility] ([place]) Comment on above: Performed By: #### B MP, MG, GFR, VIDH, B12 ####[place] [id number] [place] [address] TROPon 08-09-2019 Troponin I.cardiac [Mass/Vol] ng/mL Normal 0.000-0.040 [facility] ([place]) Comment on above: Result Comment: Trop onin I reference range: 0.00-0.040 ng/mL Negative and non-diagnostic. >0.040 ng/mL Consistent with cardiac damage, increased clinical risk and possibility of myocardial infarction. Serial measurements, a rise & fall in test results, clinical history, appropriate symptoms and/or ECG changes may help assess possibility of OR. *Other non-acute coronary syndrome conditions such as CHF, myocarditis, pulmonary emboli, sepsis and cardiac surgery could result in myocardial damage and increased troponin levels. Performed By: #### C BCCLARA, ANEU #### [place] [address] #### TROP, BMP, TSH, GFR #### [place] [address] TSHon 08-09-2019 TSH Qn 1.72 mcIU/mL Normal 0.36-3.74 [facility] ([place]) Comment on above: Performed By: #### C CLARA MON, ANEU #### [place] [address] #### TROP, BMP, TSH, GFR #### [place] [address] UAon 08-09-2019 Color (U) Yellow Normal [facility] ([place]) Comment on above: Performed By: #### U A, UAMICAO ####[place] [address] Glucose (U) [Mass/Vol] Negative Normal Negative [facility] ([place]) Comment on above: Performed By: #### U A, UAMICAO ####[place] [address] Ketones Ql (U) Trace Abnormal Negative [facility] ([place]) Comment on above: Performed By: #### U A, UAMICAO ####[place] [address] UA Appear Clear Normal Clear [facility] ([place]) Comment on above: Performed By: #### U A, UAMICAO ####[place] [address] UA Blood Small Abnormal Negative [facility] ([place]) Comment on above: Performed By: #### U A, UAMICAO ####[place] [address] UA Leuk Est Trace Abnormal Negative [facility] ([place]) Comment on above: Performed By: #### U A, UAMICAO ####[place] [address] UA Nitrite Negative Normal Negative [facility] ([place]) Comment on above: Performed By: #### U A, UAMICAO ####[place] [address] UA pH 5.0 Normal 5.0 - 8.0 [facility] ([place]) Comment on above: Performed By: #### U A, UAMICAO ####[place] [address] UA Protein Negative Normal Negative [facility] ([place] Comment on above: Performed By: #### U A, UAMICAO ####[place] [address] UA Spec Grav 1.025 Normal 1.015-1.025 [facility] ([place]) Comment on above: Performed By: #### U A, UAMICAO ####[place] [address] UA Specimen Type Clean Catch Normal [facility] ([place]) Comment on above: Performed By: #### U A, UAMICAO ####[place] [address] UA Urobilinogen 0.2 E.U./dL Normal 0.2-1.0 [facility] ([place]) Comment on above: Performed By: #### U A, UAMICAO ####[place] [address] Urobilinogen Qn (U) Negative Normal Negative [facility] ([place] Comment on above: Performed By: #### U A, UAMICAO ####[place] [address] VIDHon 08-09-2019 Vit. D 25-Hydroxy 118 ng/mL Normal [facility] ([place]) Comment on above: Result Comment: Inte rpretive Values Based on Total 25(OH)D: Severe Deficiency <20 ng/mL Mild to Moderate Deficiency 20-30 ng/mL Optimum Levels 30-100 ng/mL Toxicity Possible >100 ng/mL Performed By: #### B MP, MG, GFR, VIDH, B12 ####[place] [address] XR CHEST 1 VIEWon 08-09-2019 XR CHEST [...] Date: 08/08/2019 11:57:53 PM Ordering Provider:Robert Adame [facility] ([place]) US GROIN LEFTon 08-29-2018 US GROIN [...] 3:00:36 PM Sign Date: 08/29/2018 3:01:42 PM [facility] ([place]) XR RIBS 2 VIEWS RIGHT/PA PASQUALE [...] PM Sign Date: 08/29/2018 4:30:51 PM Normal [facility] ([place]) Vital Signs Date Time Vital Sign Value Performing Clinician Cally jones 02-27-2025 14:30-0400 Body height 180.[address] Guilherme Butt MD Work Phone: [facility] 01-29-2025 10:39-0400 Body mass index (BMI) [Ratio] 24.5 kg/m2 Dr. Guilherme Butt MD Work Phone: [facility] 01-29-2025 10:39-0400 Body weight 79.[address] Guilherme Butt MD Work Phone: [facility] 01-29-2025 10:39-0400 Diastolic blood pressure 81 mm[Hg] Dr. Guilherme Butt MD Work Phone: [facility] 01-29-2025 10:39-0400 Heart rate 82 /min Dr. Guilherme Butt MD Work Phone: [facility] 01-29-2025 10:39-0400 Respiratory rate 18 /min Dr. Guilherme Butt MD Work Phone: [facility] 01-29-2025 10:39-0400 SaO2% (BldA) [Mass fraction] 96 % Dr. Guilherme Butt MD Work Phone: [facility] 01-29-2025 10:39-0400 Systolic blood pressure 141 mm[Hg] Dr. Guilherme Butt MD Work Phone: [facility] 11-26-2024 16:12-0400 Body height 180.[address] Guilherme Butt MD Work Phone: [facility] 10-08-2024 14:25-0400 Body height 180.[address] Guilherme Butt MD Work Phone: [facility] 10-08-2024 14:25-0400 Body mass index (BMI) [Ratio] 25.7 kg/m2 Dr. Guilherme Butt MD Work Phone: [facility] 10-08-2024 14:25-0400 Body weight 83.[address] Guilherme Butt MD Work Phone: [facility] 10-08-2024 14:25-0400 Diastolic blood pressure 66 mm[Hg] Dr. Guilherme Butt MD Work Phone: [facility] 10-08-2024 14:25-0400 Heart rate 80 /min Dr. Guilherme Butt MD Work Phone: [facility] 10-08-2024 14:25-0400 Respiratory rate 18 /min Dr. Guilherme Butt MD Work Phone: [facility] 10-08-2024 14:25-0400 Systolic blood pressure 96 mm[Hg] Dr. Guilherme Butt MD Work Phone: [facility] 03-12-2023 13:59-0400 Body height 180.[address] Guilherme Butt Work Phone: [facility] 02-12-2023 16:01-0400 Diastolic blood pressure 76 mm[Hg] Dr. Guilherme Butt Work Phone: [facility] 02-12-2023 16:01-0400 Systolic blood pressure 131 mm[Hg] Dr. Guilherme Butt Work Phone: [facility] 02-12-2023 14:24-0400 Body temperature 97.8 [degF] Dr. Guilherme Butt Work Phone: [facility] 02-12-2023 14:24-0400 Heart rate 68 /min Dr. Guilherme Butt Work Phone: [facility] 02-12-2023 14:24-0400 Respiratory rate 18 /min Dr. Guilherme Butt Work Phone: [facility] 02-12-2023 14:24-0400 SaO2% (BldA) [Mass fraction] 93 % Dr. Guilherme Butt Work Phone: [facility] 02-12-2023 14:00-0400 Inhaled oxygen flow rate 3 L/min Dr. Guilherme Butt Work Phone: [facility] 02-12-2023 09:26-0400 Body height 180.[address] Guilherme Butt Work Phone: [facility] 02-12-2023 09:26-0400 Body mass index (BMI) [Ratio] 25.4 kg/m2 Dr. Guilherme Butt Work Phone: [facility] 02-12-2023 09:26-0400 Body weight 82.[address] Guilherme Butt Work Phone: [facility] 01-11-2023 14:37-0400 Body mass index (BMI) [Ratio] 24.9 kg/m2 Dr. Guilherme Butt Work Phone: [facility] 01-11-2023 14:37-0400 Body weight 83.[address] Guilherme Butt Work Phone: [facility] 01-11-2023 14:37-0400 Diastolic blood pressure 85 mm[Hg] Dr. Guilherme Butt Work Phone: [facility] 01-11-2023 14:37-0400 Respiratory rate 16 /min Dr. Guilherme Butt Work Phone: [facility] 01-11-2023 14:37-0400 Systolic blood pressure 130 mm[Hg] Dr. Guilherme Butt Work Phone: [facility] 09-04-2022 10:58-0400 Body height 182.[address] Guilherme Butt Work Phone: [facility] 09-04-2022 10:58-0400 Body mass index (BMI) [Ratio] 24.7 kg/m2 Dr. Guilherme Butt Work Phone: [facility] 09-04-2022 10:58-0400 Body weight 82.[address] Guilherme Butt Work Phone: [facility] 09-04-2022 10:58-0400 Diastolic blood pressure 48 mm[Hg] Dr. Guilherme Butt Work Phone: [facility] 09-04-2022 10:58-0400 Heart rate 84 /min Dr. Guilherme Butt Work Phone: [facility] 09-04-2022 10:58-0400 Respiratory rate 16 /min Dr. Guilherme Butt Work Phone: [facility] 09-04-2022 10:58-0400 Systolic blood pressure 80 mm[Hg] Dr. Guilherme Butt Work Phone: [facility] 08-02-2022 07:41-0400 Diastolic blood pressure 79 mm[Hg] Dr. Guilherme Butt Work Phone: [facility] 08-02-2022 07:41-0400 Heart rate 71 /min Dr. Guilherme Butt Work Phone: [facility] 08-02-2022 07:41-0400 Respiratory rate 16 /min Dr. Guilherme Butt Work Phone: [facility] 08-02-2022 07:41-0400 SaO2% (BldA) [Mass fraction] 97 % Dr. Guilherme Butt Work Phone: [facility] 08-02-2022 07:41-0400 Systolic blood pressure 114 mm[Hg] Dr. Guilherme Butt Work Phone: [facility] 08-02-2022 07:08-0400 Body height 182.[address] Guilherme Butt Work Phone: [facility] 08-02-2022 07:08-0400 Body mass index (BMI) [Ratio] 25.2 kg/m2 Dr. Guilherme Butt Work Phone: [facility] 08-02-2022 07:08-0400 Body temperature 98 [degF] Dr. Guilherme Butt Work Phone: [facility] 08-02-2022 07:08-0400 Body weight 84.[address] Guilherem Butt Work Phone: [facility] 05-22-2022 13:15-0500 Body height 182.[address] Guilherme Butt Work Phone: [facility] 04-03-2022 15:00-0500 Diastolic blood pressure 73 mm[Hg] Dr. Guilherme Butt Work Phone: [facility] 04-03-2022 15:00-0500 Heart rate 58 /min Dr. Guilherme Butt Work Phone: [facility] 04-03-2022 15:00-0500 Respiratory rate 15 /min Dr. Guilherme Butt Work Phone: [facility] 04-03-2022 15:00-0500 SaO2% (BldA) [Mass fraction] 95 % Dr. Guilherme Butt Work Phone: [facility] 04-03-2022 15:00-0500 Systolic blood pressure 138 mm[Hg] Dr. Guilherme Butt Work Phone: [facility] 04-03-2022 13:00-0500 Body temperature 97.8 [degF] Dr. Guilherme Butt Work Phone: [facility] 04-03-2022 10:08-0500 Body mass index (BMI) [Ratio] 24.9 kg/m2 Dr. Guilherme Butt Work Phone: [facility] 04-03-2022 10:08-0500 Body weight 83.[address] Guilherme Butt Work Phone: [facility] 10-03-2021 00:46-0400 Diastolic blood pressure 80 mm[Hg] TIFFANY Gray [facility] Work Phone: 10-03-2021 00:46-0400 Heart rate 91 /min TIFFANY Gray [facility] Work Phone: 10-03-2021 00:46-0400 Respiratory rate 16 /min TIFFANY Gray [facility] Work Phone: 10-03-2021 00:46-0400 SaO2% (BldA) [Mass fraction] 95 % TIFFANY Gray [facility] Work Phone: 10-03-2021 00:46-0400 Systolic blood pressure 160 mm[Hg] TIFFANY Gray [facility] Work Phone: 10-02-2021 20:20-0400 Body height 177.8 cm TIFFANY Gray [facility] Work Phone: 10-02-2021 20:20-0400 Body mass index (BMI) [Ratio] 27.8 kg/m2 TIFFANY Gray [facility] Work Phone: 10-02-2021 20:20-0400 Body temperature 98.7 [degF] NEON SIGN WORKER-Devan Gray NEON SIGN WORKER [facility] Work Phone: 10-02-2021 20:20-0400 Body weight 88 kg NEON SIGN WORKER-C Cecyhan Rodriguezashli [employer]ON SIGN WORKER [facility] Work Phone: Encounters Encounter Date Encounter Type Care Provider Facility Start: 03-20-2025 ambulatory Guilherme Penai ty:[facility] Start: 02-20-2025 ambulatory Guilherme SHI Fa cility:[facility] Start: 02-20-2025 Registered Referred Guilherme Butt MD [facility] Start: 01-29-2025 End: 01-29-2025 Patient encounter procedure Lucita Rosas [facility] Work Phone: Start: 01-29-2025 End: 01-29-[address] Guilherme Butt MD Work Phone: [facility] Start: 01-27-2025 End: 01-27-[address] Guilherme Butt MD Work Phone: [facility] [place] Start: 01-27-2025 End: 01-27-[address] Guilherme Butt MD [facility] [place] Work Phone: Start: 01-23-2025 ambulatory Guilherme SHI Fa cility:[facility] Start: 01-23-2025 Registered Referred Guilherme Butt MD [facility] Start: 01-07-2025 End: 01-07-[address] Guilherme Butt MD Work Phone: [facility] [place] Start: 01-07-2025 End: 01-07-2025 Patient encounter procedure Cecy Gray NEON SIGN WORKER- -[facility] Work Phone: Start: 12-23-2024 ambulatory Guilherme SHI Fa cility:[facility] Start: 12-23-2024 [facility] Start: 12-19-2024 [facility] Start: 12-19-2024 End: 12-19-2024 ambulatory Guilherme SHI Facility:[facility] Start: 12-12-2024 End: 12-12-[address] Guilherme Butt MD Work Phone: [facility] [place] Start: 12-12-2024 End: 12-12-2024 [facility] Start: 12-12-2024 Non-patient / Non-visit Dr. Jessica LEVIN -[facility] Start: 12-12-2024 End: 12-12-[address] Guilherme Butt MD Work Phone: -[facility] Start: 12-12-2024 End: 12-12-[address] Dwain Yen MD -[facility] Work Phone: Start: 12-12-2024 End: 12-12-2024 ambulatory Dwain Yen Facility:[facility] Start: 11-21-2024 ambulatory Guilherme SHI Fa cility:[facility] Start: 11-21-2024 [facility] Start: 11-18-2024 End: 11-18-[address] Guilherme Butt MD Work Phone: -[facility] Start: 11-18-2024 End: 11-18-[address] Guilherme Butt MD -[facility] Work Phone: Start: 10-24-2024 ambulatory Cecy SHI Fac ility:[facility] Start: 10-24-2024 Registered Referred Cecy ALLEN [facility] Start: 10-16-2024 End: 10-16-[address] Guilherme Butt MD Work Phone: [facility] [place] Start: 10-16-2024 End: 10-16-2024 Patient encounter procedure Camilo AGRAWAL -[facility] Work Phone: Start: 10-08-2024 End: 10-08-[address] Dwain Yen MD -[facility] Work Phone: Start: 10-08-2024 End: 10-08-[address] Guilherme Butt MD Work Phone: [facility] Work Phone: Start: 09-23-2024 End: 09-23-[address] Guilherme Butt MD Work Phone: [facility] [place] Start: 09-23-2024 End: 09-23-[address] Guilherme Butt MD -[facility] Work Phone: Start: 09-19-2024 End: 09-19-[address] Guilherme Butt MD Work Phone: [facility] Work Phone: Start: 09-19-2024 End: 09-19-2024 Departed Referred Guilherme Butt MD [facility] Start: 09-19-2024 Registered Referred Guilherme Butt MD -[facility] Start: 09-19-2024 End: 09-19-2024 ambulatory Guilherme SHI Facility:[facility] Start: 08-22-2024 End: 08-22-[address] Guilherme Butt MD Work Phone: [facility] Work Phone: Start: 08-22-2024 End: 08-22-2024 Departed Referred Ccey ALLEN -[facility] Start: 08-22-2024 End: 08-22-2024 ambulatory Cecy SHI Facility:[facility] Start: 08-12-2024 End: 08-12-[address] Guilherme Butt MD Work Phone: [facility] Work Phone: Start: 08-12-2024 End: 08-12-2024 Patient encounter procedure Cecy Gray NEON SIGN WORKER-C -[facility] Work Phone: Start: 07-29-2024 End: 07-29-2024 ambulatory Efkieranalfredodmitri Filomena Facility:[facility] Start: 07-29-2024 End: 07-29-[address] Guilherme Butt MD -[facility] Work Phone: Start: 07-25-2024 End: 07-25-[address] Guilherme Butt MD Work Phone: [facility] Work Phone: Start: 07-25-2024 End: 07-25-2024 [facility] Start: 07-25-2024 End: 07-25-2024 ambulatory Effelipa Butt Facility:[facility] Start: 07-03-2024 End: 07-03-2024 ambulatory Camilo AGRAWAL Facility:[facility] Start: 07-03-2024 End: 07-03-2024 Patient encounter procedure Camilo AGRAWAL [facility] [place] Work Phone: Start: 06-27-2024 ambulatory Effelipa Butt OLS Fa cility:[facility] Start: 06-27-2024 [facility]istered [facility] Start: 05-27-2024 End: 05-27-2024 ambulatory Effelipa Butt Facility:[facility] Start: 05-27-2024 End: 05-27-[address] Guilherme Butt MD -[facility] Work Phone: Start: 05-23-2024 End: 05-23-2024 Departed Referred Guilherme Butt MD [facility] Start: 05-23-2024 End: 05-23-2024 ambulatory Guilherme SHI Facility:[facility] Start: 04-25-2024 End: 04-25-2024 [facility]ed [facility] Start: 04-25-2024 End: 04-25-2024 ambulatory Guilherme SHI Facility:[facility] Start: 04-15-2024 End: 04-15-2024 ambulatory Guilherme Butt [place] [place] Start: 09-06-2023 End: 09-06-[address] Guilherme Butt Work Phone: [facility] Work Phone: Start: 08-24-2023 End: 08-24-[address] Guilherme Butt Work Phone: [facility] Work Phone: Start: 08-24-2023 End: 08-24-[address] Guilherme Butt Work Phone: [facility] Start: 07-24-2023 End: 07-24-[address] Guilherme Butt Work Phone: [facility] Work Phone: Start: 07-20-2023 End: 07-20-[address] Guilherme Butt Work Phone: [facility] Work Phone: Start: 07-20-2023 End: 07-20-[address] Guilherme Butt Work Phone: [facility] Start: 07-05-2023 End: 07-05-[address] Guilherme Butt Work Phone: [facility] Work Phone: Start: 06-22-2023 End: 06-22-[address] Guilherme Butt Work Phone: [facility] Start: 05-29-2023 End: 05-29-[address] Guilherme Butt Work Phone: [facility] Work Phone: Start: 05-25-2023 End: 05-25-[address] Guilherme Butt Work Phone: [facility] Work Phone: Start: 05-25-2023 End: 05-25-[address] Guilherme Butt Work Phone: [facility] Start: 04-20-2023 End: 04-20-[address] Guilherme Butt Work Phone: [facility] Start: 04-16-2023 End: 04-16-[address] Guilherme Butt Work Phone: [facility] Work Phone: Start: 03-27-2023 End: 03-27-[address] Guilherme Butt Work Phone: [facility] Work Phone: Start: 03-23-2023 End: 03-23-[address] Guilherme Butt Work Phone: [facility] Work Phone: Start: 03-23-2023 End: 03-23-[address] Guilherme Butt Work Phone: [facility] Start: 03-07-2023 End: 03-07-[address] Guilherme Butt Work Phone: [facility] Work Phone: Start: 02-23-2023 End: 02-23-[address] Guilherme Butt Work Phone: [facility] Work Phone: Start: 02-23-2023 End: 02-23-[address] Guilherme Butt Work Phone: [facility] Start: 02-13-2023 End: 02-13-[address] Guilherme Butt Work Phone: [facility] Work Phone: Start: 02-12-2023 Non-patient / Non-visit Dr. Roselia Butt Work Phone: [facility] Start: 02-12-2023 End: 02-12-2023 Admission to same day surgery center Dr. Guilherme Butt Work Phone: [facility] Start: 02-12-2023 End: 02-12-[address] Guilherme Butt Work Phone: [facility] Work Phone: Start: 02-06-2023 End: 02-06-[address] Guilherme Butt Work Phone: [facility] Start: 02-06-[address] Ann Butt Work Phone: [facility] Start: 01-30-2023 End: 01-30-[address] Guilherme Butt Work Phone: [facility] Work Phone: Start: 01-19-2023 End: 01-19-[address] Guilherme Butt Work Phone: [facility] Start: 01-11-2023 End: 01-11-[address] Guilherme Butt Work Phone: [facility] Work Phone: Start: 01-03-2023 End: 01-03-[address] Guilherme Butt Work Phone: [facility] Work Phone: Start: 12-22-2022 End: 12-22-[address] Guilherme Butt Work Phone: [facility] Work Phone: Start: 12-22-2022 End: 12-22-[address] Guilherme Butt Work Phone: [facility] Start: 12-22-[address] Ann Btut Work Phone: [facility] Start: 11-28-2022 End: 11-28-[address] Guilherme Butt Work Phone: [facility] Work Phone: Start: 11-24-2022 End: 11-24-[address] Guilherme Butt Work Phone: [facility] Work Phone: Start: 11-24-2022 End: 11-24-[address] Guilherme Butt Work Phone: [facility] Start: 11-24-[address] Ann uBtt Work Phone: [facility] Start: 11-08-2022 End: 11-08-[address] Guilherme Butt Work Phone: [facility] Work Phone: Start: 10-20-2022 End: 10-20-[address] Guilherme Butt Work Phone: [facility] Work Phone: Start: 10-20-2022 End: 10-20-[address] Guilherme Butt Work Phone: [facility] Start: 10-03-2022 End: 10-03-[address] Guilherme Butt Work Phone: [facility] Work Phone: Start: 09-22-2022 End: 09-22-[address] Guilherme Butt Work Phone: [facility] Start: 09-21-2022 Non-patient / Non-visit Dr. Roselia Butt Work Phone: [facility] Start: 09-21-2022 End: 09-21-[address] [facility] Start: 09-04-2022 End: 09-04-[address] Guilherme Butt Work Phone: [facility] Start: 08-25-2022 End: 08-25-[address] Guilherme Butt Work Phone: [facility] Work Phone: Start: 08-25-2022 End: 08-25-[address] Guilherme Butt Work Phone: [facility] Start: 08-23-2022 Non-patient / Non-visit Dr. Roselia Butt Work Phone: [facility] Start: 08-10-2022 End: 08-10-[address] Guilherme Butt Work Phone: [facility] Start: 08-02-2022 End: 08-02-[address] Guilherme Butt Work Phone: [facility] Start: 08-02-2022 End: 08-02-2022 Emergency department patient visit Dr. Guilherme Butt Work Phone: [facility] Start: 07-25-2022 End: 07-25-[address] Guilherme Butt Work Phone: [facility] Start: 07-21-2022 End: 07-21-[address] Guilherme Butt Work Phone: [facility] Work Phone: Start: 07-21-2022 End: 07-21-[address] Guilherme Butt Work Phone: [facility] Start: 07-21-[address] Ann Butt Work Phone: [facility] Start: 06-27-2022 End: 06-27-[address] Guilherme Btut Work Phone: [facility] Start: 06-23-2022 End: 06-23-[address] Guilherme Butt Work Phone: [facility] Work Phone: Start: 06-23-2022 End: 06-23-[address] Guilherme Butt Work Phone: [facility] Start: 06-23-[address] Ann Butt Work Phone: [facility] Start: 06-06-2022 End: 06-06-[address] Guilherme Butt Work Phone: [facility] Start: 05-26-2022 End: 05-26-[address] Guilherme Butt Work Phone: [facility] Work Phone: Start: 05-26-2022 End: 05-26-[address] Guilherme Butt Work Phone: [facility] Start: 05-26-[address] Ann Butt Work Phone: [facility] Start: 05-18-2022 End: 05-18-[address] Guilherme Butt Work Phone: [facility] Start: 05-02-2022 End: 05-02-[address] Guilherme Butt Work Phone: [facility] Start: 04-21-2022 End: 04-21-[address] Guilherme Butt Work Phone: [facility] Work Phone: Start: 04-21-2022 End: 04-21-[address] Guilherme Butt Work Phone: [facility] Start: 04-21-[address] Ann Butt Work Phone: [facility] Start: 04-04-2022 End: 04-04-[address] Guilherme Butt Work Phone: [facility] Start: 04-03-2022 End: 04-03-[address] Guilherme Butt Work Phone: [facility] Start: 04-03-2022 End: 04-03-2022 Emergency department patient visit Dr. Guilherme Butt Work Phone: [facility] Start: 03-28-2022 End: 03-28-[address] Guilherme Butt Work Phone: [facility] Start: 03-24-2022 End: 03-24-[address] Guilherme Butt Work Phone: [facility] Work Phone: Start: 03-24-2022 End: 03-24-[address] Guilherme Butt Work Phone: [facility] Start: 02-24-2022 End: 02-24-[address] Guilherme Butt Work Phone: [facility] Start: 02-24-[address] Maikel allen Work Phone: [facility] Start: 02-07-2022 End: 02-07-[address] Maikel Mosquera Work Phone: [facility] Work Phone: Start: 02-07-2022 End: 02-07-[address] Maikel Mosquera Work Phone: [facility] Start: 02-07-[address] Maikel allen Work Phone: [facility] Start: 01-20-2022 End: 01-20-[address] Maikel Mosquera Work Phone: [facility] Work Phone: Start: 01-20-2022 End: 01-20-[address] Maikel Mosquera Work Phone: [facility] Start: 12-23-2021 End: 12-23-[address] Maikel Mosquera Work Phone: [facility] Work Phone: Start: 12-23-2021 End: 12-23-[address] Maikel Mosquera Work Phone: [facility] Start: 12-12-2021 End: 12-12-[address] Maikel Mosquera Work Phone: [facility] Start: 11-18-2021 End: 11-18-2021 Departed Referred AXEL-Devan Gray NEON SIGN WORKER [facility] Start: 10-21-2021 End: 10-21-2021 Departed Referred NEON SIGN WORKER-Devan Gray NEON SIGN WORKER [facility] Start: 10-02-2021 End: 10-03-2021 Emergency department patient visit NEON SIGN WORKER-Devan Gray NEON SIGN WORKER [facility] Start: 09-23-2021 End: 09-23-2021 Departed Referred NEON SIGN WORKER-Devan Gray NEON SIGN WORKER [facility] Start: 09-23-2021 Registered Referred NEON SIGN WORKER-Devan Gray NEON SIGN WORKER [facility] Start: 09-19-2021 End: 09-19-2021 Patient encounter procedure NEON SIGN WORKER-Devan Gray NEON SIGN WORKER [facility] Start: 08-19-2021 End: 08-19-2021 Departed Referred [facility] Start: 08-19-2021 Registered Referred [facility] Start: 07-22-2021 End: 07-22-2021 Departed Referred [facility] Start: 07-22-2021 Registered Referred [facility] Start: 06-24-2021 End: 06-24-2021 Departed Referred [facility] Start: 05-27-2021 End: 05-27-2021 Departed Referred [facility] Procedures Date Procedure Procedure Detail Performing [...] Start: 10-02-2021 CT of head without contrast NEON SIGN WORKERRobi Gray NEON SIGN WORKER Plan of Treatment Date Care Activity Detail Author Start: 01-29-2025 End: 09-18-2025 Evaluation of diagnostic study results [facility] Start: 12-23-2024 [facility] Start: 12-23-2024 Bacteria identified in Urine by Culture Urine Culture [facility] Start: 02-12-2023 Anesthesia intraperi toneal lower abd w/laps nos ANESTH SURG LOWER ABDOMEN [facility] Start: 02-12-2023 Laparoscopy surg rpr initial inguinal hernia LAP ING HERNIA REPAIR INIT [facility] Start: 02-12-2023 Patient discharge [facility] Start: 02-12-2023 [facility] NM Heart Views W str ess and W radionuclide IV [facility] Patient Education [facility] Work Phone: Patient referral [facility] Work Phone: Urine culture [facility] [place] Date Payer Category Payer Self-pay [id number] 2024 Unknown [id number] 2024 Unknown [id number] 2014 Unknown [id number] Medicare [id number] Unknown [id number] Unknown [id number] 2.16.8 [id number] Unknown [id number] 2.16.8 [id number] Unknown [id number] 2.16.8 [id number] Unknown [id number] 2.16.8 40.1.210470.3.579.2.462 Unknown [id number] 2.16.8 40.1.615978.3.579.2.462 Unknown [id number] 2.16.8 40.1.718088.3.579.2.462 Unknown [id number] 2.16.8 40.1.347864.3.579.2.462 Unknown [id number] 2.16.8 40.1.747242.3.579.2.462 Unknown [id number] 2.16.8 40.1.648730.3.579.2.462 Unknown [id number] 2.16.8 40.1.092722.3.579.2.462 Unknown [id number] 2.16.8 40.1.484931.3.579.2.462 Unknown [id number] 2.16.8 40.1.658306.3.579.2.462 Unknown [id number] 2.16.8 40.1.947335.3.579.2.462 Unknown [id number] 2.16.8 40.1.346981.3.579.2.462 Unknown [id number] 2.16.8 40.1.634641.3.579.2.462 Unknown [id number] 2.16.8 40.1.662185.3.579.2.462 Unknown [id number] 2.16.8 40.1.542575.3.579.2.462 Unknown [id number] 2.16.8 40.1.331403.3.579.2.462 Unknown [id number] 2.16.8 40.1.832541.3.579.2.462 Unknown [id number] 2.16.8 40.1.594505.3.579.2.462 Unknown [id number] 2.16.8 40.1.918090.3.579.2.462 Unknown [id number] 2.16.8 40.1.285275.3.579.2.462 Unknown [id number] 2.16.8 40.1.275206.3.579.2.462 Unknown [id number] 2.16.8 40.1.743928.3.579.2.462 Unknown [id number] 2.16.8 40.1.862322.3.579.2.462 Unknown [id number] 2.16.8 40.1.051903.3.579.2.462 Unknown [id number] 2.16.8 40.1.660903.3.579.2.462 Unknown [id number] 2.16.8 40.1.486809.3.579.2.462 Social History Date Type Detail Facility Start: 07-24-2016 End: 03-12-2023 Tobacco smoking status NCIS Unknown if ever smoked [facility] Start: 04-21-2021 None [facility] Start: 04-21-2021 Non-smoker [facility] Start: 1945 Sex Assigned At Male W [facility] Start: 03-12-2023 End: 02-27-2025 Tobacco smoking status NHIS Ex-smoker (finding) [facility] Start: 08-15-2024 Sex Male (finding) [facility] Sex Male [facility] Medical Equipment Procedure Code Equipment Code Equipment Origin al Text Equipment Identifier Dates Extra-gynaecolog ical surgical mesh, composite-polymer [id number] FDA Start: 02-12-2023 Goals Date Patient Goal Desired Activity /State Mental Status Date Assessment Result Facility 02-12-2023 Cognitive function Level Of Cons ciousness Follows Commands;Drowsy [facility] Work Phone: 04-03-2022 Cognitive function Level Of Cons ciousness Awake;Alert;Appropriate [facility] Work Phone: 10-02-2021 Cognitive function Voice/Name [facility] Work Phone: Clinical Notes 11-11-2005 to 01-29-2025 Note Date & Type Note Facility 01-29-2025 Progress note [facility] 01-29-2025 Progress note Note Date/Time January 29, 2025 3:56pm [facility] [address] [place], [place] [id number] OFFICE VISIT Date of Service: 01/29/25 MR#: [id number] Acct: [id number] Name: IGOR HANSEN Rep #: [id number] : 1945 Provider: TANJA Scott Age/Sex: 79/M [place] [facility] [place] Status: Signed HPI HPI History of [...] and Parkinson's disease. He does reside at [facility]. He was seen by his PCP over [...] (%) 96 Intake Visit Reasons: Chest pain Merchandise Worker Required: No Is patient in pain?: No [...] bisacodyl 10 mg rectal suppository 10 mg AR DAILY PRN constipation 09/04/22 History carbidopa ER [...] you fallen in the past year?: Yes [facility] Medical History Lives in long term [place] as ambulation aid Syncope History of [...] and replacement of a hemisheild graft @ [facility] 11/21/05 Plan: Most recent echocardiogram demonstrated stable aortic valve. (4) Parkinson's disease: Status: Chronic Plan: Manage as per primary care physician/neurology. (5) History of ascending aortic replacement: Status: Acute Comment: resection of aneurysm of ascending aorta and replacement of a hemisheild graft @ [facility] 11/21/05 Plan: Echocardiogram done in December [...] Orders: Orders 12 Lead EKG performed [place] [facility] [place] Today R07.9 - Chest pain, unspecified Medications: [...] by Lucita Ward> Date _ Lucita AGRAWAL [facility] Signature: Date (if applicable) CC: ~ [facility] Work Phone: 1(517) 318-409705-28-2025 Progress [facility] [address] [place] [address]. [address] [place], [place] [address] OFFICE VISIT Date of Service: 10/08/24 MR#: [id number] Acct: [id number] Name: IGOR HANSEN Rep #: [id number] : 1945 Provider: Dr. Isai Yen MD Age/Sex: 79/M [place] [facility] [place] Status: Signed HPI HPI History of Present Illness Details: This gentleman with history of paroxysmal atrial fibrillation, not a candidate for anticoagulation on account of frequent falls, aortic valve disease status post replacement with a bioprosthetic valve in 2006 and Parkinson's disease is here for follow-up [...] NIBP Intake Visit Reasons: OVER DUE FU Merchandise Worker Required: No Accompanied by: Self Is patient [...] bisacodyl 10 mg rectal suppository 10 mg AR DAILY PRN constipation 09/04/22 10/08/24 History carbidopa [...] and replacement of a hemisheild graft @ [place] [address]/11/06 Plan: Repeat echocardiogram. (3) Parkinson's disease: Status: [...] applicable) CC: Dr. Guilherme Butt MD ~ [facility]05-28-2025 Progress note Author Dwain Yen [facility] Note Date/Time October 08, 2024 2:43p m [facility] [address] [place] [address] OFFICE VISIT Date of Service: 10/08/24 MR#: [id number] Acct: [id number] Name: IGOR HANSEN Rep #: [id number] : 1945 Provider: Dr. Isai Yen MD Age/Sex: 79/M Location: [facility] Status: Signed HPI HPI History of Present [...] NIBP Intake Visit Reasons: OVER DUE FU Merchandise Worker Required: No Accompanied by: Self Is patient [...] bisacodyl 10 mg rectal suppository 10 mg AR DAILY PRN constipation 09/04/22 10/08/24 History carbidopa [...] and replacement of a hemisheild graft @ [facility] 11/21/05 Plan: Repeat echocardiogram. (3) [...] applicable) CC: Dr. Guilherme Butt MD ~ [facility] Work Phone: 1(856) 385-421410-02-2023 Discharge summary Author Ori Jones [facility] February 12, 2023 1:48pm Note Date/Time February 12, 2023 1: 47pm [facility] Medical Records Department [address] [place] [address] Instructions for Home/Discharge Instructions 02/12/23 1347 MR#: [id number] Acct: [id number] Name: IGOR HANSEN Rere Rep #:[id number] : 1945 77 From: Ori wooten MD PCP: Dr. Guilherme Butt MD Status:R [place] [facility] [place]charge Instructions Procedure Hernia Diet Discharge Diet: [...] to schedule 2 week follow up appointment. [phone] Test Results: Test results from this visit [...] TID bisacodyl 10 mg suppository 10 mg AR DAILY PRN (Reason: constipation) carbidopa-levodopa 50-200 mg [...] CC: Dr. Guilherme Butt MD ~ Signed [facility] Work Phone: 1(872) 577-868510-02-2023 Procedure [facility] 02-12-2023 History and physical note Author Ori [facility] February 12, 2023 10:45am Note Date/Time February 12, 2023 10 :46am [facility] Medical Records Department [address] [place] [address] History & Physical Exam 02/12/23 1045 MR#: [id number] Acct: [id number] Name: IGOR HANSEN Rep #:[id number] : 1945 77 From: Ori wooten MD PCP: Dr. Guilherme Butt MD Status:R [facility] Location: [place] [address] History and Physical Date of Admission: 02/12/23 Intake Vital Signs 09/04/2309:58 01/11/2314:37 Height 6 ft 6 ft Weight: 184 lb BMI 24.9 BP 130/85 H Blood Pressure Location Lt brachial Position Sitting Respiration 16 Intake Visit Reasons: INGUINAL HERNIA Chief Complaint: inguinal hernia Merchandise Worker Required: No Is patient in pain?: No [...] bisacodyl 10 mg rectal suppository 10 mg AR DAILY PRN 09/04/22 [History Confirmed 01/11/23] carbidopa [...] General: cooperative Orientation: alert and oriented x3 HENAK Head: normal to inspection Neck Neck: normal [...] to the procedure. Ori Jones MD Pager: [facility] [address] [place] [address], [address] [place] [address] Office: I have examined the patient and the H&P has been reviewed. There are no clinicalchanges since date of exam. 02/12/23 1045 <Electronically signed by Ori Jones MD> Cosigner Signature (if applicable): CC: Dr. Ori Jones MD; Dr. Guilherme Butt MD~ Signed [facility] Work Phone: 1(379) 530-167607-01-2006 Evaluation note* Diagnosis Onset Date Resolution Status History of aortic valve repl acement with bioprosthetic valve November, acute Chest pain chronic Essential hypertension chron ic Parkinson's disease chronic Paroxysmal atrial fibrillation chronic [facility] Work Phone: 1(692) 834-664507-01-2006 Evaluation note* Diagnosis Onset Date Resolution Status Admit Date History of aortic valve replacement with bioprosthetic valve November, acute October 08, 2024 2 :14pm Parkinson's disease chronic September 122024 2:14pm Paroxysmal atrial fibrillation chron ic October 08, 2024 2:14pm [place] [facility] Work Phone: 1(404) 335-147807-01-2006 Evaluation note* Diagnosis Onset Date Resolution Status Admit Date History of aortic valve replacement with bioprosthetic valve November, acute January 29, 2025 3:18pm History of ascending aortic replacement November, acute January 29, 2025 3:18pm Chest pain chronic January 3:18pm Essential hypertension chronic Se ptember 2024 3:18pm Parkinson's disease chronic Septe mber 2024 3:18pm Paroxysmal atrial fibrillation chron ic January 29, 2025 3:18pm [place] [facility] Work Phone: Discharge summary Author Dr. Callahan [facility] August 02, 2022 7:37am Note Date/Time August 02, 2022 7:1 3am [facility] Medical Records Department [address] [place] [address] Emergency Department Summary 08/02/22 MR#: [id number] Acct: [id number] Name: IGOR HANSEN Rep #:[id number] : 1945 77 From: Matt Cristina PCP: [...] patient injured his right hip after fall. [facility] Medical History Anxiety Atrial fibrillation [...] PO BID 07/24/16 [History Last Taken Unknown] [place] Extract 5 drp PO DAILY 07/24/16 [History Last Taken Unknown] [place] Drink 1 packet PO DAILY 07/24/16 [History [...] health: Geriatric patient, resident of [facility] History obtained from others: EMS [...] Instructions: ED Fall Prevention Prescriptions: No Action [employer], Bladder Health 1 tab PO DAILY aspirin [...] Daily Complex Tab 2 tab PO BID [place] Extract 5 drp PO DAILY [place] Drink 1 packet PO DAILY Tumeric/Carcumin 1 [...] your Primary Care Provider. Call [facility] ([phone]) or report to the closest Emergency Room. Call 911 if necessary. 08/02/22 0737 <Electronically signed by Matt Callahan DO> Cosigner Signature (if applicable): CC: Dr. Guilherme Butt MD ~ Signed [facility] Work Phone: Evaluation noteNo assessment information available [facility] Work Phone: Evaluation note* Diagnosis Onset Date Resolution Status Left inguinal hernia acute [facility] Work Phone: Evaluation note* Diagnosis Onset Date Resolution Status Left inguinal hernia acute Left inguinal hernia acute [facility] Work Phone: Hospital Discharge instructions Additional Instructions Alternate ibuprofen and Tylenol for pain, may resume aspirin Sunday. [facility] Phone: Reason for referral (narrative)No reason for referral information available[facility] Work Phone: Summary Purpose Family History No Family History Records Found Relationship Condition Age at Onset Recorded Date/T jina mother Malignant neoplasm Unknown father Malignant neoplasm Unknown Chronic obstructive pulmonary disease Unk nown Advance Directives No Advanced Directives Records Found Advance Directive Response Recorded Date/ Time Living Will Yes July 24, 2016 9:10am Power of Safety Inspector Yes July 24 9:10am Advance Directive Response Recorded Date/ Time Living Will No October 02, 2021 8 :30pm Power of Safety Inspector No October 02, 2021 8:30pm Advance Directive Response Recorded Date/ Time Living Will No May 22 1:15pm Power of Safety Inspector No May 22 023 1:15pm Advance Directive Response Recorded Date/ Time Living Will No May 22 3 2:15pm Power of Safety Inspector No Prabha 9th, 2 023 2:15pm Advance Directive Response Recorded Date/ Time Living Will No February 09, 2023 12:16pm Power of Safety Inspector No January 12:16pm Advance Directive Response Recorded Date/ Time Living Will No March 12 12:59pm Power of Safety Inspector No March 12, 2023 12:59pm Advance Directive Response Recorded Date/ Time Living Will No March 12 1:59pm Power of Safety Inspector No March 12, 2023 1:59pm Chief Complaint and Reason for Visit Chief Complaint CORRECTION LABWORK CORRECTION LABWORK CORRECTION LABWORK CORRECTION BLOOD WORK Chief Complaint CORRECTION LABWORK CORRECTION LABWORK CORRECTION BLOOD WORK MONTHLY EXAM CONFUSION Chief Complaint CORRECTION LABWORK CORRECTION BLOOD WORK MONTHLY EXAM CORRECTION LABWORK CONFUSION LABWORK Chief Complaint CORRECTION BLOOD W ORK MONTHLY EXAM CORRECTION LABWORK CONFUSION LABWORK CORRECTION LABWORK Chief Complaint MONTHLY EXAM CORRECTION LABWORK CONFUSION LABWORK CORRECTION LABWORK MONTHLY EXAM CORRECTION LABWORK Chief Complaint CORRECTION LABWORK MONTHLY EXAM CORRECTION LABWORK LABWORK CORRECTION LABWORK Chief Complaint CORRECTION LABWORK CORRECTION LAB WORK CORRECTION LABWORK MONTHLY EXAM syncope ACUTE CARE VISIT RE-ADMISSION NOTE CORRECTION LABWORK READMISSION NOTE NEW CONCERN/PROBLEM Chief Complaint CORRECTION LAB WOR K CORRECTION LABWORK MONTHLY EXAM syncope ACUTE CARE VISIT RE-ADMISSION NOTE CORRECTION LABWORK READMISSION NOTE NEW CONCERN/PROBLEM CORRECTION LABWORK Chief Complaint RE-ADMISSION NOTE CORRECTION LABWORK READMISSION NOTE NEW CONCERN/PROBLEM CORRECTION LABWORK MONTHLY CORRECTION LABWORK MONTHLY NOTE FALL Chief Complaint CORRECTION LABWORK READMISSION NOTE NEW CONCERN/PROBLEM CORRECTION LABWORK MONTHLY CORRECTION LABWORK MONTHLY NOTE CORRECTION LABWORK MONTHLY FALL NEW COMPLAINT Chief Complaint NEW CONCERN/PROBLEM CORRECTION LABWORK MONTHLY CORRECTION LABWORK MONTHLY NOTE CORRECTION LABWORK MONTHLY FALL NEW COMPLAINT NEW COMPLAINT Amb Documentation CORRECTION LABWORK CP, PREV AVR Reason for Visit 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 Chest pain Essential hypertension Parkinson's disease Paroxysmal atrial fibrillation Chief Complaint CP, PREV AVR CP, EVAL VALVE REPLACEMENT CORRECTION LABWORK MONTHLY EXAM CORRECTION LABWORK MONTHLY NOTE LABWORK MONTHLY EXAM Reason for Visit 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 Chest pain Essential hypertension Parkinson's disease Paroxysmal atrial fibrillation Chief Complaint CP, EVAL VALVE REPLA CEMENT CORRECTION LABWORK MONTHLY EXAM CORRECTION LABWORK MONTHLY NOTE LABWORK MONTHLY EXAM Chief Complaint CP, EVAL VALVE REPLA CEMENT CORRECTION LABWORK MONTHLY EXAM CORRECTION LABWORK MONTHLY NOTE LABWORK MONTHLY EXAM CORRECTION LABWORK INGUINAL HERNIA Chief Complaint CORRECTION LABWORK MONTHLY NOTE LABWORK MONTHLY EXAM CORRECTION LABWORK ACUTE VISIT INGUINAL HERNIA CORRECTION LAB WORK MONTHLY EXAM Lap Robotic Left poss Bilateral Ing Lap Robotic Left poss Bilateral Ing Reason for Visit Left inguinal hernia Chief Complaint MONTHLY NOTE LABWORK MONTHLY EXAM CORRECTION LABWORK ACUTE VISIT INGUINAL HERNIA CORRECTION LAB WORK MONTHLY EXAM CORRECTION LAB WORK Lap Robotic Left poss Bilateral Ing Lap Robotic Left poss Bilateral Ing CORRECTION LABWORK Hernia 02/12 Reason for Visit Left inguinal hernia Left inguinal hernia Chief Complaint CORRECTION LABWORK ACUTE VISIT INGUINAL HERNIA CORRECTION LAB WORK MONTHLY EXAM CORRECTION LAB WORK Lap Robotic Left poss Bilateral Ing Lap Robotic Left poss Bilateral Ing MONTHLY VISIT CORRECTION LABWORK Hernia 02/12 CORRECTION LABWORK Reason for Visit Left inguinal hernia Left inguinal hernia Chief Complaint Lap Robotic Left pos s Bilateral Ing Lap Robotic Left poss Bilateral Ing MONTHLY VISIT CORRECTION LABWORK Hernia 02/12 CORRECTION LABWORK MONTHLY EXAM NEW CONCERN CORRECTION LABWORK CORRECTION LABWORK Reason for Visit Left inguinal hernia Chief Complaint NEW CONCERN CORRECTION LABWORK CORRECTION LABWORK MONTHLY EXAM - MD LABWORK LABWORK Chief Complaint CORRECTION LABWORK MONTHLY EXAM - MD LABWORK MONTHLY [...] MONTHLY EXAM July 29, 2024 7:4 9pm CORRECTION LAB WORK August 22, 2024 5 :00am Chief Complaint Admit Date LABWORK June 27, 2024 5:00am MONTHLY VISIT July 03, 2024 10:45am LABWORK July 25, 2024 5:0 0am MONTHLY EXAM July 29, 2024 7:4 9pm CORRECTION LAB WORK August 22, 2024 5 :00am [...] Monthly Visit August 12, 2024 6:20 pm CORRECTION LAB WORK August 22, 2024 5 :00am LABWORK September 19, 2024 5:00am OVER DUE October 08, 2024 2:14p m Chief Complaint Admit Date MONTHLY EXAM July 29, 2024 7:4 9pm Monthly Visit August 12, 2024 6:20 pm CORRECTION LAB WORK August 22, 2024 5 :00am LABWORK September 19, 2024 5:00am MONTHLY EXAM September 23, 2024 5:30p m OVER DUE October 08, 2024 2:14p m CORRECTION LAB WORK October 24, 2024 5: 00am Chief Complaint Admit Date Monthly Visit August 12, 2024 6:20 pm CORRECTION LAB WORK August 22, 2024 5 :00am LABWORK September 19, 2024 5:00am MONTHLY EXAM September 23, 2024 5:30p m OVER DUE October 08, 2024 2:14p m MONTHLY VISIT October 16, 2024 11:00 am CORRECTION LAB WORK October 24, 2024 5: 00am Chief Complaint Admit Date CORRECTION LAB WORK August 22, 2024 5 :00am LABWORK September 19, 2024 5:00am MONTHLY EXAM September 23, 2024 5:30p m OVER DUE October 08, 2024 2:14p m MONTHLY VISIT October 16, 2024 11:00 am CORRECTION LAB WORK October 24, 2024 5: 00am LABWORK November 21, 2024 5:00 am HX OF AORTIC VALVE REPLACEMENT December 1:54pm Chief Complaint Admit Date LABWORK September 19, 2024 5:00am MONTHLY EXAM September 23, 2024 5:30p m OVER DUE October 08, 2024 2:14p m MONTHLY VISIT October 16, 2024 11:00 am CORRECTION LAB WORK October 24, 2024 5: 00am Monthly Exam November 18, 2024 6:56p m LABWORK November 21, 2024 5:00 am HX OF AORTIC VALVE REPLACEMENT December 1:54pm Chief Complaint Admit Date LABWORK September 19, 2024 5:00am MONTHLY EXAM September 23, 2024 5:30p m OVER DUE October 08, 2024 2:14p m MONTHLY VISIT October 16, 2024 11:00 am CORRECTION LAB WORK October 24, 2024 5: 00am [...] MONTHLY VISIT October 16, 2024 11:00 am CORRECTION LAB WORK October 24, 2024 5: 00am [...] MONTHLY VISIT October 16, 2024 11:00 am CORRECTION LAB WORK October 24, 2024 5: 00am [...] 2:34pm Chest pain January 29, 2025 3:18pm CORRECTION LAB WORK February 20, 2025 5:25am Additional Source Comments (unrecognized sect ion and content) No Status Records FoundNo Status Records FoundNo Status Records Found INFORMATION SOURCE (unrecogn ized section and content) DATE CREATED AUTHOR 08/12/2019 [facility] ([place]) DATE CREATED AUTHOR AUTHOR'S ORGANIZ ATION 01/01/2021 [facility] DATE CREATED AUTHOR AUTHOR'S ORGANIZ ATION 03/21/2025 [facility] Goals (unrecognized section and content) [...] MD Primary Care Provider Active Cecy Gray NP, NP-C Attending Provider Active Team Status: Inactive [...] Guilherme Butt MD Primary Care Provider Active [facility] Attending Provider Active Team Status: Active Member Role Status Dates Dr. Guilherme Butt MD Primary Care Provider Active Guilherme SHI MD Attending Provider Active Team Status: Inactive Member Role Status Dates Dr. Guilherme Butt MD Primary Care Provider Active Dr. Matt Callahan DO Emergency Provider Active Team Status: Inactive Member Role Status Dates Dr. Guilherme Butt MD Primary Care Provider Active [facility] Attending Provider Active Team Status: Inactive Member Role Status Dates Dr. Guliherme Butt MD Primary Care Provider Active Dr. [...] End: August 12, 2024 Cecy Gray NP NEON SIGN WORKER-C Attending Provider Active Start: August 12, 2024 [...] End: August 12, 2024 Cecy Gray NP NEON SIGN WORKER-C Attending Provider Active Start: August 12, 2024 End: August 12, 2024 Team Status: Inactive Member Role/Relationship Status Dates Dr. Guilherme Butt MD Primary Care Provider Active Start: August 22, 2024 End: August 22, 2024 Cecy SHI NP-Devan Attending Provider Active Start: August 22, 2024 [...] 08, 2024 End: October 08, 2024 Dr. Dwian Yen MD Attending Provider Active Start: October [...] December 12, 2024 End: December 12, 2024 KAMALA Corey NPC Attending Provider Active Start: December 12, 2024 End: December 12, 2024 Team Status: Inactive Member Role/Relationship Status Dates Dr. Guilherme Butt MD Primary Care Provider Active Start: January 07, 2025 End: January 07, 2025 Cecy Gray NP NEON SIGN WORKER-C Attending Provider Active Start: January 07, 2025 [...] 12, 2024 End: December 12, 2024 Cecy Tickton NEON SIGN WORKER, NEON SIGN WORKER-C Attending physician Active Start: December 12, 2024 [...] 2025 End: January 07, 2025 Cecy Gray NEON SIGN WORKER, NEON SIGN WORKER-C Attending physician Active Start: January 07, 2025 [...] End: December 12, 2024 Cecy Gray NP, NEON SIGN WORKER-C Attending physician Active Start: December 12, 2024 [...] End: January 07, 2025 Cecy Gray NP NEON SIGN WORKER-C Attending physician Active Start: January 07, 2025 [...] 29, 2025 End: January 29, 2025 Lucita AGRAWAL, PA Attending physician Active Start: January 29, [...] BE BASED ON THE PRIMARY CLINICAL RECORDS. [facility]. provides no warranty or guarantee of the accuracy or completeness of information in this document.
[2025-04-24 08:01] LABS: Hematocrit 38.5 % (40-54); Hemoglobin 12.9 g/dL (13.0-16.5); Mean Corp Hgb Conc 33.5 g/dL (32-36); Mean Corpuscular Volume 96.5 fL (80-94); Mean Platelet Vol. 9.1 fl (6.2-12.0); Platelet Count 174 K/mm3 (150-450); RBC Distribution Width CV 12.2 % (11.6-14.6); RBC Distribution Width SD 43.8 fl (35.1-43.9); Red Blood Count 3.99 M/mm3 (4.6-6.2); White Blood Count 4.2 K/mm3 (4.4-11.0)
[2025-04-24 08:14] LABS: Anion Gap 8 (5-15); BUN 29 mg/dL (4-19); BUN/Creat Ratio 31.1 RATIO (10-20); Calcium,Total 9.1 mg/dL (7.6-11.0); Carbon Dioxide 27.8 mmol/L (21.0-32.0); Chloride 105 mmol/L (98-108); Glucose 89 mg/dL (70-99); Potassium 4.6 mmol/L (3.3-5.1)
== END ==
LOC: OLS.WHLEAS 05:00
PROVIDERS: PCP Internal Medicine; Visit Provider Internal Medicine
DX: N18.30 Chronic kidney disease, stage 3 unspecified (principal); I48.20 Chronic atrial fibrillation, unspecified; G20.C Parkinsonism, unspecified; F02.80 Dementia in other diseases classified elsewhere, unspecified severity, without behavioral disturbance, psychotic disturbance, mood disturbance, and anxiety
CPT/HCPCS: 36415; 80048; 85027